=== PATIENT | female | born 1945 | race Caucasian/White ===

== ENCOUNTER 2018-09-27 13:41 | Emergency (ER) | payer MEDICARE, BC, MEDICAID, SELFPAY ==
[2018-09-27 13:43] VITALS: BP 186/78; PULSE 65; PULSE 66; RESP 17; TEMP 36.7; O2SAT 93; O2SAT 96; BMI 73.8
--- NOTE | 2018-09-27 14:23 | RAD_ITS ---
STUDY: X-RAY - LEFT FOOT CLINICAL: Female, 72 years old. Pain following a fall. TECHNIQUE: AP and lateral view(s) of the foot. COMPARISON: None. FINDINGS: There is a plantar calcaneal spur. Normal visualized subtalar, talonavicular, calcaneocuboid, tarsal and tarsometatarsal articulations. There is demineralization of the metatarsi. Normal metatarsophalangeal joint of the great toe. Normal tibial and fibular sesamoid bones. Normal interphalangeal joint of the great toe. Normal phalanges of the great toe. Normal second through fifth metatarsophalangeal joints. Normal interphalangeal joints and phalanges of the lesser toes. Diffuse soft tissue swelling. RAD/Foot 2 Views IMPRESSION: Diffuse soft tissue swelling. Electronically Signed: Sushil Diaz, at 15:31 EDT , Service support ,
--- NOTE | 2018-09-27 14:23 | RAD_ITS ---
STUDY: X-RAY - LEFT ANKLE REASON FOR EXAM: Female, 72 years old. Pain following a fall. TECHNIQUE: 3 view(s) of the ankle. COMPARISON: None. FINDINGS: Osteopenia. Normal medial and lateral malleoli. Normal tibiotalar articulation and ankle mortise. Plantar spur. The visualized subtalar, talonavicular, calcaneocuboid and tarsal articulations are normal. Diffuse soft tissue swelling. RAD/Ankle min 3 Views IMPRESSION: Plantar spur. Demineralization of the tibia and fibula. Diffuse soft tissue swelling. Electronically Signed: Sushil Diaz, at 15:28 EDT , Service support ,
--- NOTE | 2018-09-27 14:24 | RAD_ITS ---
STUDY: X-RAY - RIGHT FOOT CLINICAL: Female, 72 years old. Pain following a fall. TECHNIQUE: 3 view(s) of the foot. COMPARISON: Comparison is made with prior study dated May 12, 2016. FINDINGS: There is a plantar calcaneal spur. The patient is status post open reduction and internal fixation of the medial malleolar fracture and distal fibular fracture. Normal visualized subtalar, talonavicular, calcaneocuboid, tarsal and tarsometatarsal articulations. There is demineralization of the metatarsi. Normal metatarsophalangeal joint of the great toe. Normal tibial and fibular sesamoid bones. Normal interphalangeal joint of the great toe. Normal phalanges of the great toe. Normal second through fifth metatarsophalangeal joints. Normal interphalangeal joints and phalanges of the lesser toes. Diffuse soft tissue swelling. RAD/Foot min 3 Views IMPRESSION: Diffuse soft tissue swelling. No acute abnormality is seen. Small plantar spur. Electronically Signed: Sushil Diaz, at 15:30 EDT , Service support ,
--- NOTE | 2018-09-27 15:43 | ED.VISSUMM ---
- ER Visit Summary Date of Service: 09/27/18 Chief Complaint: Fall while being transferred History of Present Illness: The patient is a 72 F who is bedridden and does not ambulate on her own. Patient is diabetic and has a history of hypertension. 2 caregivers were transferring her from the bed to the wheelchair. She started to fall and they lowered her to the ground. She said she did not fall hard. But as she was going down her toes Aliya curled up underneath her feet she is complaining pain in both feet. She did not hit her head. She denies any other complaints. Physical Examination: Vital signs are stable and afebrile. Older female lying in bed. HEENT exam atraumatic. Neck nontender. Lungs clear to auscultation bilaterally. Heart regular rhythm no murmur. Chest wall nontender. Abdomen morbidly obese but soft. No peritoneal signs. Extremities moves all 4. Both feet are swollen a lot appears to be chronic. She has tenderness to her toes on both sides but no gross bony deformity. She has a brace on her right ankle from prior right ankle surgery. Her left ankle is mildly tender but not swollen or deformed. Neurologically she is awake and alert. Test Results: Foot x-ray left foot shows soft tissue swelling but no acute fracture. Osteoporosis. 3 views. Foot x-ray right foot similar soft tissue swelling and osteoporosis but no acute fracture noted. Left ankle x-ray shows chronic changes and osteoporosis but no fracture. All the films were read both by myself and the radiologist. Emergency Department Course and Treatment: Repeat exam unchanged. Discussed x-ray results with patient and family. She was given one [place] here for pain. Treatment Plan: Ice to her feet. Tylenol for pain. Follow-up if not improving. I did warn them that she could have pain and nondisplaced fractures are not diagnosed on the first films. Disposition: Discharge Impression: Bilateral feet contusions secondary to fall Chronically bedridden History of type 2 diabetes This note was generated with [employer] dictation software. It may contain incorrect words, spelling, and punctuation that were not noted in review of the chart prior to signing ED Disposition - Plan for ED Patient: Disposition: Home or Assisted Living Instructions: CONTUSION, Foot Referrals: Socrates Spangler MD [Primary Care Provider] - 1 Week if not improving Additional Instructions: No broken bones were seen on her x-rays. Cool compresses or ice and elevate to her feet. Follow-up if not improving.
--- NOTE | 2018-09-27 15:48 | ED.DEP ---
ED Disposition - Plan for ED Patient: Disposition: Home or Assisted Living Instructions: CONTUSION, Foot Prescriptions: Hydrocodone/Acetaminophen [[place] 5-325 Tablet] 1 ea PO Q6H PRN PRN 4 Days #10 tab PRN Reason: Pain Prescription Printed Referrals: Socrates Spangler MD [Primary Care Provider] - 1 Week if not improving Additional Instructions: No broken bones were seen on her x-rays. Cool compresses or ice and elevate to her feet. Follow-up if not improving.
--- NOTE | 2018-09-27 15:56 | NURSING ---
CALLED [facility] FOR TRANSPORT. ETA IS 2000
[2018-09-27 16:09] VITALS: RESP 14
[2018-09-27] MEDS: HYDROcodone Bitartrate/Apap 5/325 Tablet PO (16:13)
[2018-09-27 20:42] VITALS: BP 164/60; PULSE 63; RESP 17; O2SAT 99
--- NOTE | 2018-09-27 21:09 | ED.RN ---
REPORT GIVEN TO [facility] FOR PT TRANSPORT.
== END 2018-09-27 21:15 | disposition home or self-care (01) ==
PROVIDERS: Emergency Provider Emergency Medicine; Family Provider Internal Medicine; PCP Internal Medicine
DX: S90.32XA Contusion of left foot, initial encounter (principal); S90.31XA Contusion of right foot, initial encounter; W19.XXXA Unspecified fall, initial encounter; E11.9 Type 2 diabetes mellitus without complications; I10 Essential (primary) hypertension; Z74.01 Bed confinement status; Z79.4 Long term (current) use of insulin
CPT/HCPCS: 73610; 73620; 73630; 99284

== ENCOUNTER 2024-06-13 19:38 | Inpatient (IN) | payer MEDICARE, BC, MEDICAID, SELFPAY ==
[2024-06-13] VITALS (11 sets, daily range): BP systolic 121–156; BP diastolic 65–80; PULSE 54–96; RESP 12–38; TEMP 36.3–37; O2SAT 70–97; BMI 77.5
--- NOTE | 2024-06-13 19:42 | EKG12_ITS ---
Test Reason : SOB Blood Pressure : */* mmHG Vent. Rate : 63 BPM Atrial Rate : 63 BPM P-R Int : 214 ms QRS Dur : 118 ms QT Int : 428 ms P-R-T Axes : 88 -62 -58 degrees QTcB Int : 437 ms Sinus rhythm with 1st degree A-V block Left axis deviation Pulmonary disease pattern Non-specific intra-ventricular conduction delay Nonspecific ST and T wave abnormality Abnormal ECG Confirmed by LAUREN ROSS, MARISOL ([id number]), news editor BETHEL PALMA ([id number]) on 06/15/2024 9:23:38 AM Referred By: FRANK Confirmed By: MARISOL AGUILAR MD
--- NOTE | 2024-06-13 19:44 | ED.VIS.DYS ---
HPI History of Present Illness Chief Complaint: Shortness of Breath Detail of Chief Complaint: Shortness of breath Informant: patient and EMS Narrative Narrative: Patient presents to the emergency department complaint shortness of breath started today. Normally she wears CPAP at night for obstructive sleep apnea. On EMS arrival her O2 sat was in the 70s. Patient denies chest pain. She denies recent illness. She has had a slight cough. She has not had any fever. Denies recent travel or surgery. [facility] Medical History (Updated 06/13/24 @ 21:[address] Gabriel Rucker, DO) CKD (chronic kidney disease), stage III Hypothyroidism Allergic rhinitis GERD (gastroesophageal reflux disease) Obstructive sleep apnea Hyperlipidemia Hypertension Type 2 diabetes mellitus Morbid obesity Home Medications ?Medication ?Instructions ?Recorded ?Last Taken ?Type Omeprazole [Prilosec] 40 mg PO DAILY 05/12/16 05/12/16 08:00 History amlodipine 5 mg tablet 5 mg PO DAILY 05/12/16 05/12/16 08:00 History atorvastatin 20 mg tablet 20 mg PO QHS 05/12/16 05/11/16 22:00 History fexofenadine 180 mg tablet 180 mg PO DAILY 05/12/16 05/12/16 08:00 History hydrocortisone 2.5 % topical cream 1 applicatio topical BID 05/12/16 Unknown History insulin glargine 100 unit/mL (3 50 units subcut QHS 05/12/16 05/11/16 22:00 History mL) subcutaneous pen (Lantus Solostar U-100 Insulin) levothyroxine 100 mcg tablet 100 mcg PO DAILY 05/12/16 05/12/16 06:00 History losartan 100 1 tab PO DAILY 05/12/16 05/12/16 08:00 History mg-hydrochlorothiazide 25 mg tablet (Hyzaar) metformin 500 mg 24 hr 1,000 mg PO BIDAC 05/12/16 05/12/16 08:00 History tablet,extended release (gastric retention) metoprolol tartrate 50 mg tablet 50 mg PO BID 05/12/16 05/12/16 08:00 History montelukast 10 mg tablet 10 mg PO QHS 05/12/16 05/11/16 22:00 History (Singulair) potassium chloride 10 mEq 10 meq PO BID 05/12/16 05/12/16 08:00 History tablet,extended release(part/cryst) docusate sodium 100 mg capsule 200 mg (2 x 100 mg) PO BID 05/14/16 Unknown Rx (DOK) enoxaparin 40 mg/0.4 mL 40 mg (0.4 mL) subcut BID ##28 05/14/16 Unknown Rx subcutaneous syringe insulin aspart U-100 100 unit/mL 0 units (0 mL) subcut ACHS 05/14/16 Unknown Rx (3 mL) subcutaneous pen (Novolog FlexPen U-100 Insulin aspart) magnesium oxide 400 mg (241.3 mg 400 mg PO BID ##60 05/14/16 Unknown Rx magnesium) tablet nystatin 100,000 unit/gram topical 1 applic topical BID 05/14/16 Unknown Rx powder (Nyamyc) oxycodone 5 mg tablet 5 mg PO Q4H PRN PRN Moderate Pain 05/14/16 Unknown Rx (pain scale 4-5) ##20 Allergy/AdvReac Type Severity Reaction Status Date / Time lisinopril Allergy Unknown Verified 05/12/16 17:40 pollen extracts Allergy Itching Verified 05/12/16 17:40 Surgical History (Updated 06/13/24 @ 20:[address] Estela Staton MD) S/P cholecystectomy Social History (Updated 06/13/24 @ 20:[address] Estela Staton MD) household members: spouse Smoking Status: Never smoker alcohol intake: never substance use type: does not use ROS ROS ED Review of Systems ROS Unobtainable: other Constitutional Constitutional ED: Reports lethargy; Denies chills, fever(s), sweats or weight loss Eyes Eyes: Denies blurry vision, change in vision or diplopia ENT ENT ED: Denies rhinorrhea or sore throat Cardiovascular Cardiovascular: Denies chest pain, orthopnea or racing heartbeat Respiratory/Chest Respiratory/Chest: Reports cough, dyspnea and dyspnea on exertion; Denies orthopnea or sputum Gastrointestinal Gastrointestinal: Denies abdominal pain, diarrhea, nausea or vomiting Genitourinary Genitourinary ED: Denies dysuria, hematuria or urinary frequency Musculoskeletal Musculoskeletal: Denies arthralgias, back pain, myalgias or neck pain Integumentary Denies abscess, Abrasions or rash Neurologic Neurologic: Denies headache(s) or weakness Psychiatric Psychiatric: Denies anxiety, depression or suicidal thoughts Endocrine Endocrinology: Denies polydipsia, polyphagia or polyuria Hematologic/Lymphatic Hematologic/Lymphatic: Denies easy bleeding, easy bruising or lymphadenopathy Allergic/Immunologic Allergic/Immunologic ED: Denies mouth swelling, tongue swelling or urticaria EXAM Physical Exam Const Vital Signs: 06/13/24 19:39 06/13/24 19:39 06/13/24 19:40 Temperature 97.4 F L Temperature Source Axillary Pulse Rate 85 96 Respiratory Rate 22 H 38 H Respiratory Effort Respiratory Depth Respiratory Pattern Tachypnea Blood Pressure 156/66 H Blood Pressure Mean 96 Pulse Ox 70 95 92 Oxygen Delivery Method Room Air Bi-pap Fraction of Inspired Oxygen (FIO2) 50 50 06/13/24 19:44 06/13/24 19:44 06/13/24 19:48 Temperature 97.4 F L Temperature Source Axillary Pulse Rate 80 Respiratory Rate 23 H Respiratory Effort Short of Breath Labored Accessory Muscle Use Respiratory Depth Shallow Respiratory Pattern Tachypnea Blood Pressure 156/66 H Blood Pressure Mean 96 Pulse Ox 97 96 Oxygen Delivery Method Bi-pap Bi-pap Airvo Fraction of Inspired Oxygen (FIO2) 50 50 50 06/13/24 19:53 06/13/24 20:35 06/13/24 21:00 Temperature 98.5 F Temperature Source Oral Pulse Rate 82 54 L 62 Respiratory Rate 26 H 18 18 Respiratory Effort Respiratory Depth Respiratory Pattern Tachypnea Normal Blood Pressure 121/70 H Blood Pressure Mean 87 Pulse Ox 96 Oxygen Delivery Method Bi-pap Fraction of Inspired Oxygen (FIO2) 40 06/13/24 21:15 Temperature Temperature Source Pulse Rate 646 H Respiratory Rate 24 H Respiratory Effort Respiratory Depth Respiratory Pattern Tachypnea Blood Pressure Blood Pressure Mean Pulse Ox 96 Oxygen Delivery Method Fraction of Inspired Oxygen (FIO2) 40 Positive well nourished and well developed General Appearance ED: well developed and NAD HEENT Reports TM's clear and moist mucous membranes normocephalic and atraumatic; Negative for trauma or tenderness Tympanic Membrane ED: Yes TM's clear Eyes PERRL and EOMs intact bilaterally General Eye ED: Negative for pale conjunctiva or scleral icterus Neck no lymphadenopathy, supple and no JVD General: Negative for tenderness Chest Wall inspection of chest normal and palpation of chest normal Chest: Negative for tenderness Resp No normal respiratory effort and No clear to auscultation bilaterally Resp Narrative: Patient with tachypnea. Expiratory wheezes throughout somewhat diminished bilaterally. Effort and Inspection: Negative for respiratory distress or pain with movement Auscultation: Negative for rhonchi, wheezes or diminished lung sounds Cardio regular rate, regular rhythm, S1 normal heart sound, S2 normal heart sound and no murmurs Peripheral Pulses: pulses 2+ throughout GI normal to inspection, nondistended, normoactive bowel sounds, soft to palpation, non-tender, non-distended and no masses Back/Spine no CVA tenderness and no thoracic nor lumbar tenderness Extremity normal to inspection Extremity Narrative: Trace edema both lower extremities General Extremety ED: Yes edema General Extremity: edema Neuro oriented x3, CN's II-XII intact bilaterally, no sensory deficits noted and gait normal Sensorium / Orientation: awake, alert, oriented to person, oriented to place and oriented to time Motor Exam: strength 5/5 throughout and strength abnormal Psych mental status grossly normal Skin no rashes or lesions noted and no wounds MDM MDM MDM Narrative Medical decision making narrative: Patient presents the emergency department from home with respiratory distress. Immediately she was placed on BiPAP. She tolerated this very well and respiratory status improved. IV line established. She had a CBC with differential that showed a white count of 15.4 with hemoglobin 16.1 and platelet count of 231. Chemistries unremarkable. D-dimer elevated 1.63. BUN 20 and creatinine 1.14. Troponin slightly elevated at 34 and [employer] was elevated 11,672. We attempted to do a CT scan of the chest to rule out PE however given patient's large body habitus and size she would not fit in the CT scanner. Will obtain venous Dopplers of both lower extremities. 1 view chest x-ray was obtained that showed on my interpretation infiltrate in the right lower lobe and some vascular congestion. She does have history of CHF. Patient was started on Levaquin IV. Patient also ordered Lasix IV. Case discussed with hospitalist will evaluate patient for admission Lab Data Attestation: I reviewed the patient's lab results. Labs: Laboratory Results - last 24 hr 06/13/24 19:40 WBC 15.4 H RBC 5.84 H Hgb 16.1 H Hct 53.3 H MCV 91.3 MCH 27.6 MCHC 30.2 L RDW Std Deviation 50.9 H RDW Coeff of Ryan 15.3 H Plt Count 231 MPV 9.4 Immature Gran % (Auto) 0.300 Neut % (Auto) 40.5 L Lymph % (Auto) 53.9 H [place] % (Auto) 4.3 Eos % (Auto) 0.7 Baso % (Auto) 0.3 Absolute Neuts (auto) 6.2 Absolute Lymphs (auto) 8.27 H Nucleated RBC % 0 Atypical Lymphocytes 2+ Reactive Lymphocytes 1+ D-Dimer Quant (PE/DVT) 1.63 H* Sodium 141 Potassium 4.2 Chloride 104 Carbon Dioxide 26.5 Anion Gap 10 BUN 28 H Creatinine 1.14 Estim Creat Clear Calc 61.75 Est GFR (MDRD) Non-Af 49 L BUN/Creatinine Ratio 24.6 H Glucose 154 H Lactic Acid 1.4 Calcium 9.1 Troponin T [place] 34 [place] [id number] H Radiography Diagnostic Testin view chest x-ray obtained interpreted by myself as right lower lobe infiltrate and cardiomegaly with vascular congestion. No pneumothorax. EKG Initial EKG: Attestation: I personally reviewed and interpreted this EKG as follows: Comments: Sinus rhythm with first-degree AV block with nonspecific ST changes Critical Care Time Critical Care Time: Yes Critical care time (excluding procedures): 30-74 minutes, 75-104 minutes, Including time spent:, Discussing w/Patient &/or Family/Stock Mixer, Discussing w/Consultants, Arranging Admission or Transfer, Performing Direct Patient Care at Bedside and - (30 minutes) Discharge Plan Triage Chief Complaint: Shortness of Breath ED Provider: Gabriel Rucker Dx/Rx/DC Orders Clinical Impression: Respiratory failure, Hypoxia, Pneumonia, CHF (congestive heart failure) Prescriptions: No Action atorvastatin 20 MG tablet 20 mg PO QHS Patient Comments: cholesterol fexofenadine 180 MG tablet 180 mg PO DAILY Patient Comments: allergies amlodipine 5 MG tablet 5 mg PO DAILY Patient Comments: blood pressure levothyroxine 100 MCG tablet 100 mcg PO DAILY Patient Comments: thyroid losartan-hydrochlorothiazide [Hyzaar] 1 TAB tablet 1 tab PO DAILY Patient Comments: blood pressure metoprolol tartrate 50 MG tablet 50 mg PO BID Patient Comments: blood pressure montelukast [Singulair] 10 MG tablet 10 mg PO QHS Patient Comments: breathing potassium chloride 10 MEQ tablet 10 meq PO BID Patient Comments: supplement metformin 500 MG tablet,ER rozina.retention 24 hr 1,000 mg PO BIDAC insulin glargine [Lantus Solostar U-100 Insulin] 100 UNITS/ML insulin pen 50 units subcut QHS Patient Comments: diabetes Omeprazole [Prilosec] 40 MG capsule 40 mg PO DAILY Patient Comments: stomach hydrocortisone 1 APPLIC cream 1 applicatio topical BID docusate sodium [DOK] 100 MG capsule 200 mg PO BID 0RF nystatin [Nyamyc] 1 APPLIC bottle 1 applic topical BID 0RF oxycodone 5 MG tablet 5 mg PO Q4H PRN PRN (Reason: Moderate Pain (pain scale 4-5)) Qty: 20 0RF enoxaparin 40 MG/0.4 ML syringe 40 mg subcut BID Qty: 28 0RF insulin aspart U-100 [Novolog FlexPen U-100 Insulin] 100 UNITS/ML insulin pen 0 units subcut ACHS 0RF magnesium oxide 400 MG tablet 400 mg PO BID Qty: 60 0RF Primary Care Provider: Socrates Spangler Referrals: Socrates Spangler MD [Primary Care Provider] - Print Language: Telugu Disposition Disposition: Acute Care Hospital [facility]
[2024-06-13] MEDS: MethylPREDNISolone 125 MG/2 ML Vial IV (19:53)
[2024-06-13] MEDS: Albuterol 2.5 MG/3 ML VIAL.NEB. INHALATION ×3 (19:53→20:35)
[2024-06-13 19:57] LABS: Absolute Lymphocyte Count 8.27 X10^3/uL (0.83-4.51); Absolute Neutrophil Count 6.2 X10^3/uL (2.0-7.7); Basophil# 0.04 X10^3/uL; Basophil% 0.3 % (0-1); Eosinophil# 0.11 X10^3/uL; Eosinophils% 0.7 % (0-5); Hematocrit 53.3 % (37-47); Hemoglobin 16.1 g/dL (12.0-15.0); Lymphocyte # 8.27 X10^3/ul (0.83-4.51); Lymphocyte % 53.9 % (19-41); Mean Corp Hgb Conc 30.2 g/dL (32-36); Mean Corpuscular Hgb 27.6 pg (27.0-32.0); Mean Corpuscular Volume 91.3 fL (81-99); Mean Platelet Vol. 9.4 fl (6.2-12.0); Monocyte# 0.66 X10^3/uL; Monocyte% 4.3 % (0-10); NRBC Flagged by Analyzer 0 % (0-5); Neutrophil # 6.23 X10^3/uL (2.7-7.7); Neutrophil % 40.5 % (47-70); POSITIVE DIFFERENTIAL YES; POSITIVE MORPHOLOGY YES; Platelet Count 231 K/mm3 (150-450); RBC Distribution Width CV 15.3 % (11.6-14.6); RBC Distribution Width SD 50.9 fl (35.1-43.9); Red Blood Count 5.84 M/mm3 (4.2-5.4); White Blood Count 15.4 K/mm3 (4.4-11.0)
[2024-06-13 20:08] LABS: D-Dimer Quantitative (DVT/PE) 1.63 FEU/ug/m (0.27-0.49)
[2024-06-13 20:19] LABS: Pro- Brain NATRIURETIC PEPTIDE 11672 pg/mL (<=1800); Troponin T High Sensitivity 34 ng/L (<=14)
[2024-06-13 20:20] LABS: Lactic Acid 1.4 mmol/L (0.0-2.0)
[2024-06-13 20:23] LABS: Differential Indicated SCAN CRITERIA MET
[2024-06-13 20:24] LABS: Atypical Lymphocyte 2+ %; Reactive Lymphocyte 1+
[2024-06-13 20:39] LABS: Anion Gap 10 (5-15); BUN 28 mg/dL (4-19); BUN/Creat Ratio 24.6 RATIO (10-20); Calcium,Total 9.1 mg/dL (7.6-11.0); Carbon Dioxide 26.5 mmol/L (21.0-32.0); Chloride 104 mmol/L (98-108); Creatinine, Serum 1.14 mg/dL (0.70-1.20); EST Glomerular Filtration Rate 49 (>60); Estimated Creatinine Clearance 61.75 ml/min (50-250); Glucose 154 mg/dL (70-99); Potassium 4.2 mmol/L (3.3-5.1); Sodium Level 141 mmol/L (133-145)
--- NOTE | 2024-06-13 21:05 | RAD_ITS ---
PROCEDURE: CHEST 1 VIEW (PORTABLE) 06/13/2024 REASON FOR EXAM: DYSPNEA TECHNIQUE: Frontal view of the chest. COMPARISON: None FINDINGS: Hardware: None Heart: There is severe cardiomegaly. Lungs: Right perihilar airspace opacities. No pneumothorax. Small left pleural effusion. Bones: The bones are unremarkable. Other: RAD/Chest 1 View (Portable) IMPRESSION: Marked cardiomegaly with right perihilar airspace opacities, may represent eli estion/edema versus infection. Small left pleural effusion. Reading Location: [facility]
--- NOTE | 2024-06-13 21:27 | PCM.HP.STD ---
HPI - General General Date of Admission: 06/13/24 Date of Service: 06/13/24 Chief Complaint: Dyspnea. HPI Narrative The patient is an 78 y/o F w/ PMHx: CKD stage III unclear subtype per GFR trending, Morbid obesity with significantly chronically limited mobility normally using predominantly wheelchair/Hypoventilation Syndrome, HTN, HLD, JAYA on CPAP q HS w/ oxygen at night, Diabetes mellitus type II, Hypothyroidism, Allergic rhinitis, GERD who presents to the [facility] ED on 06/13/24 with history of dyspnea, onset on day of presentation prompting EMS call noted to be 70% upon their arrival with recent slight cough without marked production, mild congestion and rhinorrhea but no marked other URI type symptoms or productive sputum nor any recent fever/chills. She denies any recent surgery or prolonged travel. Workup in the ED included T97.4 Axillary, heart rate 85, BP 156/66, respiratory rate 22, initially 70% room air transition to BiPAP noted to be 95% on 50% FiO2, D-dimer 1.63, CBC with WBC 15.4, hemoglobin 16.1, MCV 91.3, platelet 231 with lymphocytosis, BMP with BUN/creatinine 28/1.14, GFR 49, glucose 154 otherwise unremarkable, initial troponin 34, BNP 11,672, lactic acid 1.4, rapid SARS COVID/influenza/RSV negative, blood culture x 2 pending per ED, CXR with possible RLL infilrate, EKG with SR with 1 AVB with no acute evidence of ischemia. ED attempt to obtain CTPA however patient was unable to fit in the CT scanner. ED physician is obtaining BL LE duplex US and ABG per discussion which is pending upon evaluation request of patient. In the ED patient ministered Solu-Medrol 125 mg IV x 1, lasix 40 mg IV x 1, levaquin 750 mg IV x 1. [facility] Medical History CKD (chronic kidney disease), stage III Hypothyroidism Allergic rhinitis GERD (gastroesophageal reflux disease) Obstructive sleep apnea Hyperlipidemia Hypertension Type 2 diabetes mellitus Morbid obesity Home Medications ?Medication ?Instructions ?Recorded ?Last Taken ?Type Omeprazole [Prilosec] 40 mg PO DAILY 05/12/16 05/12/16 08:00 History amlodipine 5 mg tablet 5 mg PO DAILY 05/12/16 05/12/16 08:00 History atorvastatin 20 mg tablet 20 mg PO QHS 05/12/16 05/11/16 22:00 History fexofenadine 180 mg tablet 180 mg PO DAILY 05/12/16 05/12/16 08:00 History hydrocortisone 2.5 % topical cream 1 applicatio topical BID 05/12/16 Unknown History insulin glargine 100 unit/mL (3 50 units subcut QHS 05/12/16 05/11/16 22:00 History mL) subcutaneous pen (Lantus Solostar U-100 Insulin) levothyroxine 100 mcg tablet 100 mcg PO DAILY 05/12/16 05/12/16 06:00 History losartan 100 1 tab PO DAILY 05/12/16 05/12/16 08:00 History mg-hydrochlorothiazide 25 mg tablet (Hyzaar) metformin 500 mg 24 hr 1,000 mg PO BIDAC 05/12/16 05/12/16 08:00 History tablet,extended release (gastric retention) metoprolol tartrate 50 mg tablet 50 mg PO BID 05/12/16 05/12/16 08:00 History montelukast 10 mg tablet 10 mg PO QHS 05/12/16 05/11/16 22:00 History (Singulair) potassium chloride 10 mEq 10 meq PO BID 05/12/16 05/12/16 08:00 History tablet,extended release(part/cryst) docusate sodium 100 mg capsule 200 mg (2 x 100 mg) PO BID 05/14/16 Unknown Rx (DOK) enoxaparin 40 mg/0.4 mL 40 mg (0.4 mL) subcut BID ##28 05/14/16 Unknown Rx subcutaneous syringe insulin aspart U-100 100 unit/mL 0 units (0 mL) subcut ACHS 05/14/16 Unknown Rx (3 mL) subcutaneous pen (Novolog FlexPen U-100 Insulin aspart) magnesium oxide 400 mg (241.3 mg 400 mg PO BID ##60 05/14/16 Unknown Rx magnesium) tablet nystatin 100,000 unit/gram topical 1 applic topical BID 05/14/16 Unknown Rx powder (Nyamyc) oxycodone 5 mg tablet 5 mg PO Q4H PRN PRN Moderate Pain 05/14/16 Unknown Rx (pain scale 4-5) ##20 Allergy/AdvReac Type Severity Reaction Status Date / Time lisinopril Allergy Unknown Verified 05/12/16 17:40 pollen extracts Allergy Itching Verified 05/12/16 17:40 Family History (Updated 06/13/24 @ 22:[address] Estela Staton MD) Mother Diabetes Heart disease Hypertension Father Diabetes Cancer Heart disease Alzheimer dementia Surgical History (Updated 06/13/24 @ 22:[address] Estela Staton MD) History of ankle surgery S/P cholecystectomy Social History household members: spouse Smoking Status: Never smoker alcohol intake: never substance use type: does not use ROS ROS Narrative Admission Review of Systems: CONSTITUTIONAL: No weight loss, fever, chills, + weakness or fatigue. HEENT: +Congestion, rhinorrhea. Eyes: No visual loss, blurred vision, double vision or yellow sclerae. Ears, Nose, Throat: No hearing loss, sneezing, sore throat. SKIN: No rash or itching, lesions, wounds except + chronic issues with intertrigo. CARDIOVASCULAR: No chest pain, chest pressure or chest discomfort, palpitations, edema, orthopnea, syncopal events. RESPIRATORY: + Mild cough, dyspnea, wheezing upon evaluation. No markedly productive sputum, hemoptysis. GASTROINTESTINAL: No anorexia, nausea, vomiting or diarrhea, abdominal pain, melena, BRBPR. GENITOURINARY: No dysuria, frequency, urgency or retention. NEUROLOGICAL: +Chronic debility with primarily wheelchair usage. No headache, dizziness, syncope, paralysis, ataxia, numbness or tingling in the extremities, focal weakness, change in bowel or bladder control, seizure. MUSCULOSKELETAL: + muscle, back pain, joint pain or stiffness. HEMATOLOGIC: No anemia, bleeding or bruising. LYMPHATICS: No enlarged nodes. No history of splenectomy. PSYCHIATRIC: No history of depression or anxiety. ENDOCRINOLOGIC: No reports of sweating, cold or heat intolerance. No polyuria or polydipsia. ALLERGIES: + History of allergic rhinitis. Vital Signs Vital Signs Vital Signs: 06/13/24 19:39 06/13/24 19:39 06/13/24 19:40 Temperature 97.4 F L Temperature Source Axillary Pulse Rate 85 96 Respiratory Rate 22 H 38 H Respiratory Effort Respiratory Depth Respiratory Pattern Tachypnea Blood Pressure 156/66 H Blood Pressure Mean 96 Pulse Ox 70 95 92 Oxygen Delivery Method Room Air Bi-pap Fraction of Inspired Oxygen (FIO2) 50 50 06/13/24 19:44 06/13/24 19:44 06/13/24 19:48 Temperature 97.4 F L Temperature Source Axillary Pulse Rate 80 Respiratory Rate 23 H Respiratory Effort Short of Breath Labored Accessory Muscle Use Respiratory Depth Shallow Respiratory Pattern Tachypnea Blood Pressure 156/66 H Blood Pressure Mean 96 Pulse Ox 97 96 Oxygen Delivery Method Bi-pap Bi-pap Airvo Fraction of Inspired Oxygen (FIO2) 50 50 50 06/13/24 19:53 06/13/24 20:35 06/13/24 21:00 Temperature 98.5 F Temperature Source Oral Pulse Rate 82 54 L 62 Respiratory Rate 26 H 18 18 Respiratory Effort Respiratory Depth Respiratory Pattern Tachypnea Normal Blood Pressure 121/70 H Blood Pressure Mean 87 Pulse Ox 96 Oxygen Delivery Method Bi-pap Fraction of Inspired Oxygen (FIO2) 40 06/13/24 21:15 Temperature Temperature Source Pulse Rate 646 H Respiratory Rate 24 H Respiratory Effort Respiratory Depth Respiratory Pattern Tachypnea Blood Pressure Blood Pressure Mean Pulse Ox 96 Oxygen Delivery Method Fraction of Inspired Oxygen (FIO2) 40 Weight Weight: 397 lb 4.368 oz Body Mass Index (BMI) 77.5 Physical Exam Narrative Physical Examination: General: Awake, alert, oriented x 3 and cooperative, laying in the ED bed, fatigued, BiPAP remains in place, no evidence of any distress at this time, appears improved Skin: Normal color, normal turgor, no icterus, no cyanosis except significant intertrigo in all skin folds, occasional stage ecchymoses, abrasion. HEENT: AT/NC, EOMI, PERRLA, mildly dry MM, BiPAP in place, given thickened neck and habitus difficult to discern carotid bruits as well as JVD. Lungs: Significant diminished, greater bases, persistent end expiratory wheeze, respiratory distress is lessened, maintained currently on BiPAP, no appreciated marked rhonchi or rales. Heart: Mildly bradycardic with regular rhythm; no gallop, rub audible. Abdomen: Soft, morbidly obese, NTTP, distant BS, difficult to discern distention and HSM given habitus. Extremities: No cyanosis, clubbing, or edema. Neurological: Patient awake, alert, oriented as noted, cognitive function intact; pupils equally reactive to light and accommodation, cranial nerves grossly normal, moving all 4 extremities, no focal deficits, strength severely globally decreased. Psychiatric: Affect appears flat, fatigued, no acute evidence of depressive or anxiety feelings. Results Lab / Micro Data 06/13/24 19:40 06/13/24 19:40 Labs: Laboratory Results - last 24 hr 06/13/24 19:40: WBC 15.4 H, RBC 5.84 H, Hgb 16.1 H, Hct 53.3 H, MCV 91.3, MCH 27.6, MCHC 30.2 L, RDW Std Deviation 50.9 H, RDW Coeff of Ryan 15.3 H, Plt Count 231, MPV 9.4, Immature Gran % (Auto) 0.300, Neut % (Auto) 40.5 L, Lymph % (Auto) 53.9 H, [place] % (Auto) 4.3, Eos % (Auto) 0.7, Baso % (Auto) 0.3, Absolute Neuts (auto) 6.2, Absolute Lymphs (auto) 8.27 H, Nucleated RBC % 0, Atypical Lymphocytes 2+, Reactive Lymphocytes 1+, D-Dimer Quant (PE/DVT) 1.63 H*, Sodium 141, Potassium 4.2, Chloride 104, Carbon Dioxide 26.5, Anion Gap 10, BUN 28 H, Creatinine 1.14, Estim Creat Clear Calc 61.75, Est GFR (MDRD) Non-Af 49 L, BUN/Creatinine Ratio 24.6 H, Glucose 154 H, Lactic Acid 1.4, Calcium 9.1, Troponin T High Sens 34 H, [place] [address] H Micro: Microbiology 06/13/24 19:55 Mucosa - Nose SARS-CoV-2, Influenza & RSV (PCR) - Final Assessment & Plan Assessment/Plan (1) Acute hypoxic respiratory failure: PLAN: Plan The patient is an 78 y/o F w/ PMHx: CKD stage III unclear subtype per GFR trending, Morbid obesity with significantly chronically limited mobility normally using predominantly wheelchair/Hypoventilation Syndrome, HTN, HLD, JAYA on CPAP q HS w/ oxygen at night, Diabetes mellitus type II, Hypothyroidism, Allergic rhinitis, GERD who presents to the [facility] ED on 06/13/24 with history of dyspnea, onset on day of presentation prompting EMS call noted to be 70% upon their arrival with recent slight cough without marked production, mild congestion and rhinorrhea but no marked other URI type symptoms or productive sputum nor any recent fever/chills. #1. Acute Hypoxic Respiratory Failure secondary to Possible RLL Infilrtrate/Community Acquired PNA with Acute Bronchospasms in addition to Possible Acute Decompensated HF, Unclear type with indeterminate cardiac enzyme: Patient administered IV lasix in addition to IV solumedrol and IV levaquin in the ED, will admit to PCU, maintain on BIPAP although already improving in the ED, maintain on cardiac telemetry, continue to obtain cardiac enzyme series, obtain serial EKGs, continue IV lasix diuresis, ATC duoneb therapies, PRN albuterol, maintain on IV Rocephin and Azithromycin, maintain on IV solumedrol given notable wheezing/bronchospasms suspected, HOB, IS parameters w/ pending sputum cultures, full respiratory viral panel, procalcitonin and urine antigens. If infectious workup unremarkable may opt to de-escalate antibiotic therapy. Certainly if workup seems more infectious than overload may de-escalate off Lasix therapy. #2. Chronic Kidney Disease Stage III, unclear subtype per GFR trending: Admission BUN/Cr 28/1.14, GFR 49, baseline renal function unfortunately remote with last noted 11/22/2016 creatinine 0.98, repeat BMP in AM for trending but also to elucidate current chronic stable level. #3. Hypertension: Continue home regimen including metoprolol, amlodipine, losartan, hydrochlorothiazide, pulse dose with IV lasix as noted above, PRN hydralazine. #4. Hyperlipidemia: We will continue patient statin therapy. FLP in AM. #5. Hypothyroidism: We will continue patient home levothyroxine regimen. TSH/FT4 in AM. #6. Diabetes mellitus type II: Hold oral home regimen, continue home insulin regimen, ADA diet, accu checks w/ ISS. #7. Morbid Obesity/significantly chronically limited mobility normally using predominantly wheelchair: Weight loss and lifestyle changes encouraged, nutrition consulted. #8. Allergic rhinitis: We will continue patient home fexofenadine regimen. #9. GERD: We will continue patient on PPI. #10. JAYA, hypoventilation syndrome: Complicates presentation, normally using CPAP nightly, given current presentation will continue with BiPAP. Transition once appropriate. #11. DVT prophylaxis: Chemoprophylactic dosing of Lovenox pending duplex ultrasound. Given inability to fit in the scanner at this point pending bilateral lower extremity duplex ultrasounds and if there is no obvious clot in her legs then lower suspicion for anything in her lungs but if any concerning findings in the legs then certainly would transition to heparin drip at that point. #12. CODE status: Patient NICOLE is her daughter and living will is currently in place. Discussed CODE status at length including difference between FULL code, DNR-CCA and DNR-CC status. Following discussions about the differences in these status, requested Full Code status. Advanced Care Planning Face to Face Time: 16 minutes. Charges/Coding Visit Charges Inpatient E&M: 47580 Init Hosp L3 Procedures Hospitalists Procedures: 65370 Advncd Care Plan 30 Min
[2024-06-13] MEDS: levoFLOXacin IV 750 MG/150 ML BAG 100 MG IV (21:32)
[2024-06-13] MEDS: Furosemide 40 MG/4 ML Vial IV (21:46)
--- NOTE | 2024-06-13 21:46 | CASEMGMT ---
Care Management Face to Face with patient for initial transition planning/care coordination assessment in the ED.? This machine sign writer introduced self and role at [facility]. Patient alert and oriented. Patient willing to participate in assessment and is able to answer all questions appropriately.? Care providers, pharmacy, and demographics verified. Admitting Diagnosis: hypoxia Other diagnosis history: CKD, hypothyroidism, GERD, hypertension, Diabetes type 2 PCP: [facility] Specialists: ?None Preferred Pharmacy: [facility] Insurance: Medicare Prescription Benefit: yes Living Will/HPOA: ??Patient states HPOA completed, unsure about LW LNOK: Living Arrangements: ?Lives with in a 2 story home, they only use 1st floor.? Patient is bed bound and total assist with all ADLs and IADLs Transportation: Squad when emergent, otherwise unable to leave home DME: hospital bed, nadira lift, wheelchair HHC: ?patient has HH aide that come to the home M-F 3-4 hours per day SNF/Rehab:? [facility] Resources: ?Direction home CM ? [facility] History: Depression and anxiety Patient goals: Patients discharge goals are uncertain at this time. Disposition Plan: admission to acute; RN CM/SW to follow for discharge planning needs that may arise. Luisa Hollis, STUDENT SERVICES ADVISOR, SPEECH PATHOLOGIST ASSISTANT
--- NOTE | 2024-06-13 21:55 | US_ITS ---
PROCEDURE: VENOUS DUPLEX IMAG/GREGG EXTREM 06/13/2024 REASON FOR EXAM: F 78 y/o Swelling TECHNIQUE: Grayscale color flow and doppler analysis of the bilateral lower extremity. COMPARISON: None FINDINGS: There is no intraluminal echogenicity to suggest the presence of a deep venous thrombosis. Appropriate respiratory variation, augmentation and venous compression is noted. US/Venous Duplex Imag/Gregg Extrem IMPRESSION: No deep venous thrombosis identified in the extremity. Reading Location: [facility]
[2024-06-13 21:56] LABS: Mucous, Urine 0 SEEN /hpf (<or=2+)
[2024-06-13 21:58] LABS: Magnesium 1.6 mg/dL (1.5-2.2)
[2024-06-13 22:04] LABS: Allen Test Positive; Base Excess 2 mmol/L (-2 to +2); Bicarbonate 28.9 mmol/L (22-26); Blood Gas Specimen Type ART; Comment 20/10 cmH2O; Mode Not entered; O2 Delivery Device BiPAP; PO2 81 mmHG (75-100); RR 12; SITE L Radial; SO2 94 % (95-99); Total Carbon Dioxide 31 mmol/L; pCO2 60.6 mmHg (35-45); pH 7.29 (7.35-7.45)
[2024-06-13 22:11] LABS: Color, Urine Yellow (Yellow); Glucose, Dipstick 1000 mg/dl (Normal); Ketone-Dipstick Negative (Negative); Leukocyte Esterase-Dipstick 500 /ul (Negative); Nitrite-Dipstick Positive (Negative); Occult Blood-Urine 25 /ul (Negative); Protein-Dipstick 100 mg/dl (Negative); Specific Gravity, Urine 1.015 (1.002-1.030); Urine Bilirubin Dipstick Negative (Negative); Urine Clarity Sl. Cloudy (Clear); Urine Urobilinogen Normal (Normal)
[2024-06-13 22:32] LABS: Troponin T High Sens 2 HR 45 ng/L (<=14)
[2024-06-13 22:58] LABS: Bacteria 2+ /hpf (None Seen); Red Blood Cells-Urine 0-5 SEEN /hpf (0-5); Squamous Epithelial Cells - UA 0-5 SEEN /hpf (5-10); White Blood Cells >100 SEEN /hpf (0-5); Yeast-Urine 1+ /hpf (None Seen)
[2024-06-14] VITALS (14 sets, daily range): BP systolic 122–130; BP diastolic 50–65; PULSE 60–76; RESP 12–28; TEMP 35.8–36.7; O2SAT 94–97; BMI 63.3
[2024-06-14 01:22] LABS: Procalcitonin 0.06 ng/mL (<=0.10)
[2024-06-14 01:59] LABS: Troponin T High Sens 4 HR 51 ng/L (<=14)
[2024-06-14] MEDS: Menthol/Lanolin/Calamine/Znox 113 GM Tube 1 APPLIC TOPICAL ×3 (02:42→20:27)
[2024-06-14] MEDS: Nystatin Powder 15gm Bottle 1 APPLIC TOPICAL ×4 (02:42→20:32)
[2024-06-14] MEDS: Potassium Chloride Oral Tablet 10 MEQ PO ×2 (02:49→09:45)
[2024-06-14] MEDS: Enoxaparin 40 MG/0.4 ML Syringe SC ×3 (02:50→20:29)
[2024-06-14] MEDS: Atorvastatin Calcium 20 MG Tablet PO ×2 (02:50→20:29)
[2024-06-14] MEDS: Metoprolol Tartrate 50 MG Tablet PO ×3 (02:50→20:33)
[2024-06-14] MEDS: Montelukast 10 MG Tablet PO ×2 (02:51→20:30)
[2024-06-14] MEDS: Docusate Sodium 100 MG Capsule 200 MG PO ×2 (02:52→20:28)
[2024-06-14] MEDS: Insulin Lispro 100 UNIT/ML INSULN.PEN SC ×4 (03:03→20:46)
[2024-06-14] MEDS: Insulin Glargine-YFGN 100 UNIT/ML Pen 50 UNIT SC ×2 (03:05→20:45)
[2024-06-14 03:26] LABS: Allen Test Positive; Base Excess 4 mmol/L (-2 to +2); Bicarbonate 29.9 mmol/L (22-26); Blood Gas Specimen Type ART; Mode Not entered; O2 Delivery Device BiPAP; PEEP 10; PIP 20; PO2 70 mmHG (75-100); RR 12; SITE R Radial; SO2 92 % (95-99); Total Carbon Dioxide 32 mmol/L; pCO2 60.2 mmHg (35-45)
[2024-06-14 04:03] LABS: Bedside Glucose 218 mg/dL (74-106)
[2024-06-14 05:40] LABS: Absolute Lymphocyte Count 0.91 X10^3/uL (0.83-4.51); Absolute Neutrophil Count 5.9 X10^3/uL (2.0-7.7); Hematocrit 52.5 % (37-47); Hemoglobin 15.5 g/dL (12.0-15.0); Lymphocyte # 0.91 X10^3/ul (0.83-4.51); Lymphocyte % 13.2 % (19-41); Mean Corp Hgb Conc 29.5 g/dL (32-36); Mean Corpuscular Hgb 27.5 pg (27.0-32.0); Mean Corpuscular Volume 93.1 fL (81-99); Mean Platelet Vol. 9.4 fl (6.2-12.0); Monocyte# 0.05 X10^3/uL; Monocyte% 0.7 % (0-10); NRBC Flagged by Analyzer 0 % (0-5); Neutrophil # 5.89 X10^3/uL (2.7-7.7); Neutrophil % 85.8 % (47-70); POSITIVE COUNT YES; RBC Distribution Width CV 15.1 % (11.6-14.6); Red Blood Count 5.64 M/mm3 (4.2-5.4); White Blood Count 6.9 K/mm3 (4.4-11.0)
--- NOTE | 2024-06-14 05:55 | ECHOCS_ITS ---
Reason For Study Reason For Study: CHF Procedure This was a 2D Doppler, Color Flow transthoracic echocardiogram. The patient was scanned supine. Due to morbid obesity (BMI 76.5) & suboptimal positioning. The study was technically limited. The study was technically difficult. Contrast injection was performed. Exam performed portable in patient room. Left Ventricle Normal LV size. Left ventricular systolic function is normal. The left ventricular ejection fraction is 60 %. Right Ventricle Normal right ventricle. Pericardium/Pleural No pericardial effusion. Medication Diluted definity 4.0ml given slow IV push to enhance endocardial definition. MMode/2D Measurements & Calculations LVIDd: 4.5 cm IVSd: 1.6 cm LAV(MOD-sp4): 58.1 ml LVIDs: 3.2 cm LVPWd: 1.9 cm FS: 28.7 % LVAd ap4: 34.7 cm2 LVAd ap2: 37.7 cm2 SV(MOD-sp4): 58.0 ml LVLd ap4: 9.0 cm LVLd ap2: 9.0 cm SI(MOD-sp4): 23.3 ml/m2 EDV(MOD-sp4): 111.5 ml EDV(MOD-sp2): 135.4 ml EDV(sp4-el): 114.2 ml EDV(sp2-el): 133.4 ml LVAs ap4: 21.5 cm2 LVAs ap2: 23.4 cm2 LVLs ap4: 7.2 cm LVLs ap2: 7.6 cm ESV(MOD-sp4): 53.5 ml ESV(MOD-sp2): 60.6 ml ESV(sp4-el): 54.3 ml ESV(sp2-el): 61.3 ml EF(MOD-sp4): 52.0 % EF(MOD-sp2): 55.3 % EF(sp4-el): 52.5 % SV(MOD-sp2): 74.8 ml SV(sp4-el): 60.0 ml LA A4 area: 20.4 cm2 SI(MOD-sp2): 30.1 ml/m2 Time Measurements MV dec time: 0.17 sec Doppler Measurements & Calculations MV E max alon: 58.9 cm/sec Lat Peak E' Alon: 6.0 cm/sec Med Peak E' Alon: 5.2 cm/sec MV A max alon: 91.1 cm/sec E/E' lat: 9.9 E/E' med: 11.3 MV E/A: 0.65 MV V2 max: 99.2 cm/sec Ao V2 max: 137.8 cm/sec LV V1 max: 69.2 cm/sec MV max P.9 mmHg Ao max P.6 mmHg LV V1 max P.9 mmHg MV V2 mean: 57.9 cm/sec Ao V2 mean: 101.9 cm/sec LV V1 mean P.3 mmHg MV mean P.5 mmHg Ao mean P.4 mmHg LV V1 mean: 55.6 cm/sec MV V2 VTI: 21.1 cm Ao V2 VTI: 31.4 cm LV V1 VTI: 19.7 cm AV (velocity ratio): 0.63 PA V2 max: 124.7 cm/sec PA V2 mean: 80.6 cm/sec ECHO/Echo Complete W/ Contrast Interpretation Summary Normal LV size. Left ventricular systolic function is normal. The left ventricular ejection fraction is 60 %. Contrast injection was performed. The study was technically limited. Ordering Physician: Estela Staton Referring Physician: Socrates Spangler Performed By: Stephenie Gerardo RDCS, RVT
[2024-06-14 05:57] LABS: Differential Indicated SCAN CRITERIA MET
[2024-06-14] MEDS: Levothyroxine 100 MCG Tablet PO (06:20)
[2024-06-14] MEDS: Methylprednisolone Sod Succ 40 MG/ML VIAL IV ×3 (06:20→20:33)
[2024-06-14 06:22] LABS: ALB/GLOB Ratio 1.2 RATIO (0.9-2.4); AST(SGOT) 32 U/L (<=31); Alanine Aminotransfer ALT/SGPT 19 U/L (<=34); Albumin, Serum 3.2 g/dL (3.4-4.8); Alkaline Phosphatase 107 U/L (35-104); Anion Gap 16 (5-15); BUN 32 mg/dL (4-19); BUN/Creat Ratio 22.6 RATIO (10-20); Carbon Dioxide 19.3 mmol/L (21.0-32.0); Chloride 105 mmol/L (98-108); Creatinine, Serum 1.41 mg/dL (0.70-1.20); EST Glomerular Filtration Rate 38 (>60); Estimated Creatinine Clearance 53.62 ml/min (50-250); Globulin 2.7 g/dL (2.2-4.2); Glucose 221 mg/dL (70-99); Potassium 4.8 mmol/L (3.3-5.1); Protein, Total 5.9 g/dL (5.9-8.4); Sodium Level 140 mmol/L (133-145); Total Bilirubin 0.41 mg/dL (0.00-1.30)
[2024-06-14] MEDS: 0.9% Saline Lock 10 ML Syringe IV ×2 (06:24→20:36)
[2024-06-14 06:34] LABS: Cholesterol 104 mg/dL (<=200); High Density Lipoprotein 35 mg/dL; Low Density Lipoprotein Calc. 56 mg/dL; Triglycerides 65 mg/dL; Very Low Density Lipoprotein 13 mg/dL (5-40); cholesterol:hdl ratio screen 3.01
[2024-06-14 06:53] LABS: Bedside Glucose 204 mg/dL (74-106)
[2024-06-14 07:06] LABS: Platelet Count 101 K/mm3 (150-450)
[2024-06-14] MEDS: Ipratropium/Albuterol Sulfate 3 ML AMPUL.NEB INHALATION ×3 (07:53→19:47)
[2024-06-14] MEDS: amLODIPine 5 MG Tablet PO (09:45)
[2024-06-14] MEDS: hydroCHLOROthiazide 25 MG Tablet PO (09:45)
[2024-06-14] MEDS: Pantoprazole Sodium 40 MG Tablet PO (09:45)
[2024-06-14] MEDS: Aspirin E.C. 81 MG Tablet PO (09:45)
[2024-06-14] MEDS: Losartan Potassium 100 MG Tablet PO (09:45)
[2024-06-14] MEDS: Loratadine 10 MG Tablet PO (09:45)
[2024-06-14] MEDS: Furosemide 40 MG/4 ML Vial IV ×2 (09:46→17:55)
--- NOTE | 2024-06-14 09:59 | PCM.PN.HOSP ---
Reason for Visit Reason for Visit: Diagnoses Acute respiratory failure with hypoxia (06/13/24) Objective Data Objective Data Vital Signs: Vital Signs Temp Pulse Resp BP Pulse Ox O2 Del Method O2 Flow Rate 98.0 F 71 18 122/55 H 97 Nasal Cannula 4 06/14/24 09:34 06/14/24 09:34 06/14/24 09:34 06/14/24 09:34 06/14/24 09:34 06/14/24 09:34 06/14/24 09:34 FiO2 30 06/14/24 03:15 Oxygen Flow Rate (L/min) 4 Oxygen Delivery Method Nasal Cannula Weight: 392 lb 3.237 oz Body Mass Index (BMI) 63.3 Intake & Output: Intake and Output for Last 24 Hours 06/12/24 06/13/24 06/14/24 23:59 23:59 23:59 Intake Total 150 / 150 Output Total 2150 / 2150 Balance -1999 / Lab / Micro Data 06/14/24 05:32 06/14/24 05:37 Labs: Laboratory Results - last 24 hr 06/13/24 19:40: WBC 15.4 H, RBC 5.84 H, Hgb 16.1 H, Hct 53.3 H, MCV 91.3, MCH 27.6, MCHC 30.2 L, RDW Std Deviation 50.9 H, RDW Coeff of Ryan 15.3 H, Plt Count 231, MPV 9.4, Immature Gran % (Auto) 0.300, Neut % (Auto) 40.5 L, Lymph % (Auto) 53.9 H, [place] % (Auto) 4.3, Eos % (Auto) 0.7, Baso % (Auto) 0.3, Absolute Neuts (auto) 6.2, Absolute Lymphs (auto) 8.27 H, Nucleated RBC % 0, Atypical Lymphocytes 2+, Reactive Lymphocytes 1+, D-Dimer Quant (PE/DVT) 1.63 H*, Sodium 141, Potassium 4.2, Chloride 104, Carbon Dioxide 26.5, Anion Gap 10, BUN 28 H, Creatinine 1.14, Estim Creat Clear Calc 61.75, Est GFR (MDRD) Non-Af 49 L, BUN/Creatinine Ratio 24.6 H, Glucose 154 H, Lactic Acid 1.4, Calcium 9.1, Magnesium 1.6, Troponin T High Sens 34 H, [place] [address] H 06/13/24 21:47: Troponin T Hi Sens 2 Hr 45 H, Urine Color Yellow, Urine Clarity Sl. Cloudy, Urine pH 6.0, Ur Specific [place] 1.015, Urine Protein 100 H, Urine Glucose (UA) 1000 H, Urine Ketones Negative, Urine Occult Blood 25 H, Urine Nitrite Positive H, Urine Bilirubin Negative, Urine Urobilinogen Normal, Ur Leukocyte Esterase 500 H, Urine RBC 0-5 SEEN, Urine WBC >100 SEEN, Ur Squamous Epith Cells 0-5 SEEN, Urine Bacteria 2+, Urine Mucus 0 SEEN, Urine Yeast 1+ 06/14/24 00:23: Troponin T Hi Sens 4Hr 51 H, Procalcitonin 0.06 06/14/24 03:02: POC Glucose 218 H 06/14/24 05:32: WBC 6.9, RBC 5.64 H, Hgb 15.5 H, Hct 52.5 H, MCV 93.1, MCH 27.5, MCHC 29.5 L, RDW Std Deviation 52.0 H, RDW Coeff of Ryan 15.1 H, Plt Count 101 L, MPV 9.4, Immature Gran % (Auto) 0.300, Neut % (Auto) 85.8 H, Lymph % (Auto) 13.2 L, [place] % (Auto) 0.7, Eos % (Auto) 0.0, Baso % (Auto) 0.0, Absolute Neuts (auto) 5.9, Absolute Lymphs (auto) 0.91, Nucleated RBC % 0 06/14/24 05:37: Sodium 140, Potassium 4.8, Chloride 105, Carbon Dioxide 19.3 L, Anion Gap 16 H, BUN 32 H, Creatinine 1.41 H, Estim Creat Clear Calc 53.62, Est GFR (MDRD) Non-Af 38 L, BUN/Creatinine Ratio 22.6 H, Glucose 221 H, Calcium 9.0, Total Bilirubin 0.41, AST 32, ALT 19, Alkaline Phosphatase 107 H, Total Protein 5.9, Albumin 3.2 L, Globulin 2.7, Albumin/Globulin Ratio 1.2, Triglycerides 65, Cholesterol 104, LDL Cholesterol, Calc 56, VLDL Cholesterol 13, HDL Cholesterol 35 L, Cholesterol/HDL Ratio 3.01, TSH 1.690, Free T4 1.30 06/14/24 06:17: POC Glucose 204 H Micro: Microbiology 06/14/24 02:45 Urine Catheter - Reese Legionella Antigen - Final 06/14/24 02:45 Urine Catheter - Reese Streptococcus pneumoniae Antigen (M - Final 06/13/24 22:55 Mucosa - Nasopharyngeal Respiratory Panel (PCR) - Final 06/13/24 19:55 Mucosa - Nose SARS-CoV-2, Influenza & RSV (PCR) - Final ABG Data ABG results: ABG 06/13/24 06/14/24 22:00 03:22 Specimen Type ART ART Sample Site L Radial R Radial pH 7.29 L 7.30 L Bicarbonate Actual 28.9 H 29.9 H Total CO2 31 32 Base Excess 2 4 H O2 Saturation 94 L 92 L O2 % 40.0 30.0 ABG pCO2 60.6 H 60.2 H ABG pO2 81 70 L Jeronimo Test Positive Positive Respiration Rate 12 12 O2 Delivery Device BiPAP BiPAP Vent Mode Not entered Not entered POC PEEP 10 Peak Inspir Pressure 20 Clinical Comments 20/10 cmH2O Radiography Diagnostic Testing: Radiology Impression Chest X-Ray 06/13/24 21:05 IMPRESSION: Marked cardiomegaly with right perihilar airspace opacities, may represent congestion/edema versus infection. Small left pleural effusion. Reading [facility] Venous Duplex 06/13/24 21:55 IMPRESSION: No deep venous thrombosis identified in the extremity. Reading Location: [facility] Physical Exam Narrative Seen and examined Patient was admitted with shortness of breath. Earlier her BiPAP was not working for last 3 to 4 weeks. No fever. Feels chest congestion, coughing up mucus. No fever Physical exam General: Alert, Oriented x3, Cooperative, super morbid obesity: BMI 63.3 kg/m? HEENT: Short and wide neck atraumatic, PERRLA, EOMI, Normocephalic Oral: Deep oropharyngeal strength not visualized Neck: Supple, No JVD, Negative Carotid Bruits Chest wall/Lungs: Air entry diminished in bilateral lung bases. Mild bilateral basal wheezing/crepitations Cardiovascular: Low intensity heart sounds Rally from morbid obesity. No M/G/R Abdomen: Bowel Sounds Present, Soft, Non Tender, Non-Distended : No dysuria. No renal angle tenderness. No suprapubic tenderness. Extremities: Bilateral pedal edema 3+ edema, Capillary Refill Less than 3 Seconds Skin: No rashes, No breakdown Musculoskeletal: No Tenderness to Palpation of Joints or Extremities ROM decreased. Neurological: Cranial nerves II-XII grossly intact, DTR 2+/4. No acute focal neurological deficit. Psych/Mental Status: Flat affect Assessment & Plan Assessment/Plan (1) Acute hypoxic respiratory failure: PLAN: Plan The patient is an 78 y/o F was brought to ED by EMS for shortness of breath and hypoxia, pulse ox 70% on room air for 1 day. Not on oxygen at baseline. Patient had slight nonproductive cough, mild congestion and rhinorrhea. No fever #1. Acute Hypoxic Respiratory Failure secondary to Possible RLL Infilrtrate/Community Acquired PNA with Acute Bronchospasms in addition to Possible Acute Decompensated HF unclear type and classification: Patient denies chest pain. Triple PCR for SARS-CoV-2, flu and RSV are negative. Respiratory panel and urinary antigens are negative. Leukocytosis resolved. Chest x-ray reviewed and shows unturned ventilation, cardiomegaly suggestive of pulmonary congestion/edema. ABG 7.30/60/70s on BiPAP 20/10, RR 12 at 30% FiO2. Bicarb reported in BMP since long as it suddenly dropped from 26.5-19.3 but in ABGs about 31-32. Therefore mainly seems chronic respiratory acidosis Patient started on IV ceftriaxone and azithromycin. Empirically on IV Solu-Medrol. Patient is being managed on scheduled bronchodilator, IV Solu-Medrol, Mucinex, incentive spirometry and Pep. #2. Chronic Kidney Disease Stage IIIA: Admission BUN/Cr 28/1.14, GFR 49, baseline renal function unfortunately remote with last noted 11/22/2016 creatinine 0.98, 06/12: BUN/creatinine 32/1.41. HCTZ discontinued. Losartan dose decreased to 50 mg daily. Monitor kidney function. #3. Hypertension: Continue home regimen including metoprolol, amlodipine, losartan, hydrochlorothiazide, pulse dose with IV lasix as noted above, PRN hydralazine. 06/14:HCTZ discontinued. Losartan dose decreased to 50 mg daily. #4. Hyperlipidemia: continue patient statin therapy. FLP LDL 56, HDL 35. #5. Hypothyroidism: continue patient home levothyroxine regimen. TSH/FT4 1.690 and 1.30 respectively; normal. #6. Diabetes mellitus type II: Hold oral home regimen, continue home insulin regimen, ADA diet, accu checks w/ ISS. #7. Morbid Obesity/significantly chronically limited mobility normally using predominantly wheelchair: Weight loss and lifestyle changes encouraged, nutrition consulted. #8. Allergic rhinitis: continue patient home fexofenadine regimen. #9. GERD: continue patient on PPI. #10. JAYA, hypoventilation syndrome: Complicates presentation, normally using CPAP nightly, given current presentation will continue with BiPAP. Transition once appropriate. #11. DVT prophylaxis: Chemoprophylactic dosing of Lovenox pending duplex ultrasound. Given inability to fit in the scanner at this point pending bilateral lower extremity duplex ultrasounds and if there is no obvious clot in her legs then lower suspicion for anything in her lungs but if any concerning findings in the legs then certainly would transition to heparin drip at that point. #12. CODE status: Patient NICOLE is her daughter and living will is currently in place. Discussed CODE status at length including difference between FULL code, DNR-CCA and DNR-CC status. Following discussions about the differences in these status, requested Full Code status. Charges/Coding Visit Charges Inpatient E&M: 06503 Subs Hosp L2
[2024-06-14] MEDS: Ceftriaxone 1 GM/50 ML BAG IV (10:02)
[2024-06-14] MEDS: Azithromycin 500 MG in 0.9% Normal Saline (250mL Bag) 250 ML 255 MG IV (10:48)
[2024-06-14 12:20] LABS: Bedside Glucose 235 mg/dL (74-106)
--- NOTE | 2024-06-14 13:49 | CASEMGMT ---
BE CUMMINS note: Call received from Radha pt's Mobile Architect from [facility]. She states pt has BICYCLE REPAIR[employer] through [employer] MWF for 3 hrs/day and / 4 hrs/day. Pt also has an emergency response button. She declines home-delivered meals, as her aide cooks for her. Katerine COX RN CM
[2024-06-14] MEDS: guaiFENesin/D-Methorphan TAB.SR.12H 2 TABLET PO ×2 (13:59→20:29)
--- NOTE | 2024-06-14 15:44 | CASEMGMT ---
Social Work SW met with pt and introduced self and role of SW. Social Determinant of Health assessment completed. Pt denies any concerns at home. Pt is bedbound and has been for several years. Pt does have a nadira lift but does not use it. Pt states her and her caregivers provide needed care. Pt expressing desire to return home at discharge. Nursing questioning pt safety as skin on left side of body does not appear cared for but right side does. Pt states that bed is pushed up against a wall and therefore caregiver cannot get to the left side for good care. Pt denies room in the space to move the bed away from the wall. Pt is active with [facility] and Radha Valdovinos is the [employer]. SW spoke with [facility] who confirms pt cannot move furniture but also states pt receives adequate care by family and caregivers. Pt has home health aids for 3 hours a day M,W, F and 4 hours a day T,TH. Pt spouse provides care the rest of the time. Pt does have a medical alert system. Radha states pt needs a new hospital bed but it has not been delivered since pt cannot get out of the bed to have the bed replaced. Radha will work on getting the bed replaced while pt is hospitalized. SW to notify [facility] at time of DCYAMILET Cowart
[2024-06-14 17:06] LABS: Bedside Glucose 195 mg/dL (74-106)
--- NOTE | 2024-06-14 18:41 | CASEMGMT ---
BE CUMMINS NOTE: BE CUMMINS to room. Introduced self and role. Pt states she has a CPAP. No home O2. Discussed possible need of home O2 @ dc. Pt states she is not sure what DME co should want to use and would like to talk w/her daughter about this before making a decision. She states she has a glucometer @ home w/sufficient supplies. She also has enough insulin and needles @ home. Pt voices no other dc needs at this time. Katerine COX RN, CM
[2024-06-15] VITALS (15 sets, daily range): BP systolic 104–139; BP diastolic 48–91; PULSE 41–78; RESP 15–18; TEMP 36.4–36.8; O2SAT 94–98; BMI 63.2
[2024-06-15 00:34] LABS: Bedside Glucose 230 mg/dL (74-106)
--- NOTE | 2024-06-15 05:15 | CPS ---
pt has been off and on home cpap unit a couple of times tonight, 6L O2 bled in, nasal O2 on when pt not on nasal cpap
[2024-06-15 06:24] LABS: Absolute Lymphocyte Count 1.44 X10^3/uL (0.83-4.51); Absolute Neutrophil Count 8.6 X10^3/uL (2.0-7.7); Basophil# 0.01 X10^3/uL; Basophil% 0.1 % (0-1); Hematocrit 49.6 % (37-47); Hemoglobin 15.1 g/dL (12.0-15.0); Lymphocyte # 1.44 X10^3/ul (0.83-4.51); Lymphocyte % 13.8 % (19-41); Mean Corp Hgb Conc 30.4 g/dL (32-36); Mean Corpuscular Hgb 27.6 pg (27.0-32.0); Mean Corpuscular Volume 90.7 fL (81-99); Mean Platelet Vol. 9.5 fl (6.2-12.0); Monocyte# 0.31 X10^3/uL; NRBC Flagged by Analyzer 0 % (0-5); Neutrophil # 8.61 X10^3/uL (2.7-7.7); Neutrophil % 82.7 % (47-70); Platelet Count 177 K/mm3 (150-450); RBC Distribution Width SD 50.6 fl (35.1-43.9); Red Blood Count 5.47 M/mm3 (4.2-5.4); White Blood Count 10.4 K/mm3 (4.4-11.0)
[2024-06-15] MEDS: Insulin Lispro 100 UNIT/ML INSULN.PEN SC ×3 (06:33→22:53)
[2024-06-15] MEDS: Levothyroxine 100 MCG Tablet PO (06:33)
[2024-06-15] MEDS: Methylprednisolone Sod Succ 40 MG/ML VIAL IV ×3 (06:33→22:57)
[2024-06-15 06:37] LABS: Bedside Glucose 188 mg/dL (74-106)
[2024-06-15] MEDS: Nitroglycerin Oint 1 INCH PACKET TD ×3 (06:39→22:57)
[2024-06-15 06:59] LABS: Anion Gap 12 (5-15); BUN 37 mg/dL (4-19); BUN/Creat Ratio 23.9 RATIO (10-20); Carbon Dioxide 26.8 mmol/L (21.0-32.0); Chloride 102 mmol/L (98-108); Creatinine, Serum 1.54 mg/dL (0.70-1.20); EST Glomerular Filtration Rate 34 (>60); Estimated Creatinine Clearance 49.08 ml/min (50-250); Glucose 191 mg/dL (70-99); Magnesium 1.7 mg/dL (1.5-2.2); Potassium 3.8 mmol/L (3.3-5.1); Sodium Level 140 mmol/L (133-145)
[2024-06-15] MEDS: Ipratropium/Albuterol Sulfate 3 ML AMPUL.NEB INHALATION ×2 (07:04→12:22)
--- NOTE | 2024-06-15 08:47 | PCM.PN.HOSP ---
Reason for Visit Reason for Visit: Diagnoses Acute respiratory failure with hypoxia (06/13/24) Objective Data Objective Data Vital Signs: Vital Signs Temp Pulse Resp BP Pulse Ox O2 Del Method O2 Flow Rate 97.7 F L 62 18 139/91 H 98 High Flow 6 06/15/24 06:25 06/15/24 07:05 06/15/24 07:05 06/15/24 06:25 06/15/24 07:05 06/15/24 07:05 06/15/24 07:05 FiO2 30 06/14/24 03:15 Oxygen Flow Rate (L/min) 6 Oxygen Delivery Method High Flow Weight: 391 lb 15.71 oz Body Mass Index (BMI) 63.2 Intake & Output: Intake and Output for Last 24 Hours 06/13/24 06/14/24 06/15/24 23:59 23:59 23:59 Intake Total 695 / 695 Output Total 2750 / 2750 1025 / 1025 Balance -5 / -205 -1025 / -1025 Lab / Micro Data 06/15/24 05:55 06/15/24 05:55 Labs: Laboratory Results - last 24 hr 06/14/24 12:02: POC Glucose 235 H 06/14/24 16:43: POC Glucose 195 H 06/14/24 20:41: POC Glucose 230 H 06/15/24 05:55: WBC 10.4, RBC 5.47 H, Hgb 15.1 H, Hct 49.6 H, MCV 90.7, MCH 27.6, MCHC 30.4 L, RDW Std Deviation 50.6 H, RDW Coeff of Ryan 15.0 H, Plt Count 177, MPV 9.5, Immature Gran % (Auto) 0.400, Neut % (Auto) 82.7 H, Lymph % (Auto) 13.8 L, [place] % (Auto) 3.0, Eos % (Auto) 0.0, Baso % (Auto) 0.1, Absolute Neuts (auto) 8.6 H, Absolute Lymphs (auto) 1.44, Nucleated RBC % 0, Sodium 140, Potassium 3.8, Chloride 102, Carbon Dioxide 26.8, Anion Gap 12, BUN 37 H, Creatinine 1.54 H, Estim Creat Clear Calc 49.08 L, Est GFR (MDRD) Non-Af 34 L, BUN/Creatinine Ratio 23.9 H, Glucose 191 H, Calcium 9.0, Magnesium 1.7 06/15/24 06:19: POC Glucose 188 H Micro: Microbiology 06/14/24 02:45 Urine Catheter - Reese Legionella Antigen - Final 06/14/24 02:45 Urine Catheter - Reese Streptococcus pneumoniae Antigen (M - Final 06/13/24 22:55 Mucosa - Nasopharyngeal Respiratory Panel (PCR) - Final 06/13/24 19:55 Mucosa - Nose SARS-CoV-2, Influenza & RSV (PCR) - Final Radiography Diagnostic Testing: Radiology Impression Echocardiogram 06/14/24 05:55 Interpretation Summary Normal LV size. Left ventricular systolic function is normal. The left ventricular ejection fraction is 60 %. Contrast injection was performed. The study was technically limited. Ordering Physician: Estela Staton Referring Physician: Socrates Spangler Performed By: Stephenie Gerardo, RDCS, RVT Physical Exam Narrative Seen and examined Shortness of breath is better. No chest pain. On BiPAP at night and naps Patient was admitted with shortness of breath. Earlier her BiPAP was not working for last 3 to 4 weeks. No fever. Feels chest congestion, coughing up mucus. No fever Physical exam General: Alert, Oriented x3, Cooperative, super morbid obesity: BMI 63.3 kg/m?, limited exam HEENT: Short and wide neck atraumatic, PERRLA, EOMI, Normocephalic Oral: Deep oropharyngeal strength not visualized Neck: Supple, No JVD, Negative Carotid Bruits Chest wall/Lungs: Air entry diminished in bilateral lung bases. Cannot sit up because of morbid body habitus. No crepitations on anterior lung auscultation. Cardiovascular: Low intensity heart sounds Rally from morbid obesity. No M/G/R Abdomen: Bowel Sounds Present, Soft, Non Tender, Non-Distended : No dysuria. No renal angle tenderness. No suprapubic tenderness. Extremities: Bilateral pedal edema 2+ edema, Capillary Refill Less than 3 Seconds Skin: No rashes, No breakdown Musculoskeletal: No Tenderness to Palpation of Joints or Extremities ROM decreased. Neurological: Cranial nerves II-XII grossly intact, DTR 2+/4. No acute focal neurological deficit. Psych/Mental Status: Flat affect Assessment & Plan Assessment/Plan (1) Acute hypoxic respiratory failure: PLAN: Plan The patient is an 78 y/o F was brought to ED by EMS for shortness of breath and hypoxia, pulse ox 70% on room air for 1 day. Not on oxygen at baseline. Patient had slight nonproductive cough, mild congestion and rhinorrhea. No fever #1. Acute Hypoxic Respiratory Failure secondary to Possible RLL Infilrtrate/Community Acquired PNA with Acute Bronchospasms in addition to Possible Acute Decompensated HF unclear type and classification: Patient denies chest pain. Triple PCR for SARS-CoV-2, flu and RSV are negative. Respiratory panel and urinary antigens are negative. Leukocytosis resolved. Chest x-ray reviewed and shows unturned ventilation, cardiomegaly suggestive of pulmonary congestion/edema. ABG 7.30/60/70s on BiPAP 20/10, RR 12 at 30% FiO2. Bicarb reported in BMP since long as it suddenly dropped from 26.5-19.3 but in ABGs about 31-32. Therefore mainly seems chronic respiratory acidosis Patient started on IV ceftriaxone and azithromycin. Empirically on IV Solu-Medrol. Patient is being managed on scheduled bronchodilator, IV Solu-Medrol, Mucinex, incentive spirometry and Pep. /: Repeat chest x-ray portable done with suboptimal images. Shows improvement in lung congestion but underventilated. Continue antibiotics and above treatment. Next #2. QUYNH on chronic Kidney Disease Stage IIIA: Admission BUN/Cr 28/1.14, GFR 49, baseline renal function unfortunately remote with last noted 11/22/2016 creatinine 0.98, 4/3: BUN/creatinine 32/1.41. HCTZ discontinued. Losartan dose decreased to 50 mg daily. Monitor kidney function. /4: Creatinine jumped up from 1.14-1.54 in 48 hours therefore meets criteria for QUYNH. Hold furosemide and losartan and follow-up kidney function. #3. Hypertension: Continue home regimen including metoprolol, amlodipine, losartan, hydrochlorothiazide, pulse dose with IV lasix as noted above, PRN hydralazine. 4/3:HCTZ discontinued. Losartan dose decreased to 50 mg daily. #4. Hyperlipidemia: continue patient statin therapy. FLP LDL 56, HDL 35. #5. Hypothyroidism: continue patient home levothyroxine regimen. TSH/FT4 1.690 and 1.30 respectively; normal. #6. Diabetes mellitus type II: Hold oral home regimen, continue home insulin regimen, ADA diet, accu checks w/ ISS. #7. Morbid Obesity/significantly chronically limited mobility normally using predominantly wheelchair: Weight loss and lifestyle changes encouraged, nutrition consulted. #8. Allergic rhinitis: continue patient home fexofenadine regimen. #9. GERD: continue patient on PPI. #10. JAYA, hypoventilation syndrome: Complicates presentation, normally using CPAP nightly, given current presentation will continue with BiPAP. Transition once appropriate. #11. DVT prophylaxis: Chemoprophylactic dosing of Lovenox pending duplex ultrasound. Given inability to fit in the scanner at this point pending bilateral lower extremity duplex ultrasounds and if there is no obvious clot in her legs then lower suspicion for anything in her lungs but if any concerning findings in the legs then certainly would transition to heparin drip at that point. #12. CODE status: Patient NICOLE is her daughter and living will is currently in place. Discussed CODE status at length including difference between FULL code, DNR-CCA and DNR-CC status. Following discussions about the differences in these status, requested Full Code status. Charges/Coding Visit Charges Inpatient E&M: 87383 Subs Hosp L2
[2024-06-15] MEDS: Furosemide 40 MG/4 ML Vial IV (09:41)
[2024-06-15] MEDS: Losartan Potassium 50 MG Tablet PO (09:41)
[2024-06-15] MEDS: Metoprolol Tartrate 50 MG Tablet PO (09:41)
[2024-06-15] MEDS: Aspirin E.C. 81 MG Tablet PO (09:41)
[2024-06-15] MEDS: Menthol/Lanolin/Calamine/Znox 113 GM Tube 1 APPLIC TOPICAL ×2 (09:44→22:51)
[2024-06-15] MEDS: Enoxaparin 40 MG/0.4 ML Syringe SC ×2 (09:45→22:55)
[2024-06-15] MEDS: guaiFENesin/D-Methorphan TAB.SR.12H 2 TABLET PO ×2 (09:45→22:55)
[2024-06-15] MEDS: Nystatin Powder 15gm Bottle 1 APPLIC TOPICAL ×3 (09:46→22:52)
[2024-06-15] MEDS: Pantoprazole Sodium 40 MG Tablet PO (09:46)
[2024-06-15] MEDS: Ceftriaxone 1 GM/50 ML BAG IV (09:57)
--- NOTE | 2024-06-15 10:00 | RAD_ITS ---
EXAM: XR Chest, 1 View CLINICAL INDICATION: PULM EDEMA, R/O PNEUMONIA TECHNIQUE: Frontal view of the chest. COMPARISON: No relevant prior studies available. FINDINGS: LUNGS AND PLEURAL SPACES: See below. HEART: Cardiomegaly with pulmonary congestion and edema. Superimposed pneumonia cannot be excluded. MEDIASTINUM: Unremarkable. Normal mediastinal contour. BONES/JOINTS: Unremarkable. No acute fracture. RAD/Chest 1 View (Portable) IMPRESSION: Cardiomegaly with pulmonary congestion and edema. Superimposed pneumonia cannot be excluded. Reading Location: [facility]
[2024-06-15] MEDS: Azithromycin 500 MG in 0.9% Normal Saline (250mL Bag) 250 ML 255 MG IV (11:14)
[2024-06-15] MEDS: Loratadine 10 MG Tablet PO (11:14)
[2024-06-15 12:13] LABS: Bedside Glucose 207 mg/dL (74-106)
--- NOTE | 2024-06-15 13:42 | CASEMGMT ---
SARA spoke with Radha Valdovinos to see if she knew when the hospital bed would be delivered. Radha did not know this answer. SARA explained physician may discharge patient over the weekend. SARA told Radha that SW was going to talk with patient to see if she would be willing to go to a SNF until the bed is delivered. Radha said that would be helpful. SARA met with patient. Introduced self and role at [facility]. SW asked about going to a SNF short term while she waits on the bed to get delivered. Patient declined stating that would really upset her . He has the starting of dementia and it would upset him too much. SARA called Radha Valdovinos and left her a voice mail letting her know. [place] GRIFFIN
[2024-06-15] MEDS: Carvedilol 6.25 MG Tablet PO (17:04)
[2024-06-15 17:30] LABS: Bedside Glucose 211 mg/dL (74-106)
[2024-06-15] MEDS: Insulin Glargine-YFGN 100 UNIT/ML Pen 50 UNIT SC (22:53)
[2024-06-15] MEDS: Docusate Sodium 100 MG Capsule 200 MG PO (22:55)
[2024-06-15] MEDS: Atorvastatin Calcium 20 MG Tablet PO (22:55)
[2024-06-15] MEDS: 0.9% Saline Lock 10 ML Syringe IV (22:58)
[2024-06-16] VITALS (10 sets, daily range): BP systolic 125–141; BP diastolic 53–65; PULSE 61–75; RESP 16–18; TEMP 36.4–36.7; O2SAT 94–97; BMI 62.7
[2024-06-16 02:18] LABS: Bedside Glucose 186 mg/dL (74-106)
--- NOTE | 2024-06-16 04:57 | CPS ---
Patient is on Home unit CPAP at this time but is requiring a 6-8L oxygen bleed in when she does not use oxygen at home. Patient may need to be re-evaluated in a sleep lab setting to assess if Home CPAP settings are adequate. RN is aware.
[2024-06-16] MEDS: Insulin Lispro 100 UNIT/ML INSULN.PEN SC ×4 (06:11→21:05)
[2024-06-16] MEDS: Levothyroxine 100 MCG Tablet PO (06:11)
[2024-06-16] MEDS: Methylprednisolone Sod Succ 40 MG/ML VIAL IV ×3 (06:12→21:02)
[2024-06-16] MEDS: Nitroglycerin Oint 1 INCH PACKET TD ×3 (06:13→21:02)
[2024-06-16] MEDS: 0.9% Saline Lock 10 ML Syringe IV ×2 (06:14→21:02)
[2024-06-16 06:40] LABS: Bedside Glucose 204 mg/dL (74-106)
[2024-06-16] MEDS: Ipratropium/Albuterol Sulfate 3 ML AMPUL.NEB INHALATION ×3 (07:01→18:56)
[2024-06-16 07:10] LABS: Absolute Lymphocyte Count 1.13 X10^3/uL (0.83-4.51); Absolute Neutrophil Count 7.8 X10^3/uL (2.0-7.7); Basophil# 0.01 X10^3/uL; Basophil% 0.1 % (0-1); Hematocrit 47.2 % (37-47); Hemoglobin 14.4 g/dL (12.0-15.0); Lymphocyte # 1.13 X10^3/ul (0.83-4.51); Lymphocyte % 12.3 % (19-41); Mean Corp Hgb Conc 30.5 g/dL (32-36); Mean Corpuscular Hgb 27.8 pg (27.0-32.0); Mean Corpuscular Volume 91.1 fL (81-99); Mean Platelet Vol. 9.8 fl (6.2-12.0); Monocyte# 0.26 X10^3/uL; Monocyte% 2.8 % (0-10); NRBC Flagged by Analyzer 0 % (0-5); Neutrophil # 7.78 X10^3/uL (2.7-7.7); Neutrophil % 84.6 % (47-70); Platelet Count 167 K/mm3 (150-450); RBC Distribution Width CV 14.8 % (11.6-14.6); RBC Distribution Width SD 50.1 fl (35.1-43.9); Red Blood Count 5.18 M/mm3 (4.2-5.4); White Blood Count 9.2 K/mm3 (4.4-11.0)
[2024-06-16 07:48] LABS: Anion Gap 17 (5-15); BUN 43 mg/dL (4-19); BUN/Creat Ratio 27.3 RATIO (10-20); Calcium,Total 8.6 mg/dL (7.6-11.0); Carbon Dioxide 18.1 mmol/L (21.0-32.0); Chloride 101 mmol/L (98-108); Creatinine, Serum 1.56 mg/dL (0.70-1.20); EST Glomerular Filtration Rate 33 (>60); Estimated Creatinine Clearance 48.19 ml/min (50-250); Glucose 195 mg/dL (70-99); Potassium 4.5 mmol/L (3.3-5.1); Sodium Level 136 mmol/L (133-145)
[2024-06-16] MEDS: Enoxaparin 40 MG/0.4 ML Syringe SC ×2 (09:29→21:02)
[2024-06-16] MEDS: Aspirin E.C. 81 MG Tablet PO (09:30)
[2024-06-16] MEDS: Loratadine 10 MG Tablet PO (09:30)
[2024-06-16] MEDS: Docusate Sodium 100 MG Capsule 200 MG PO ×2 (09:30→21:02)
[2024-06-16] MEDS: Carvedilol 6.25 MG Tablet PO ×2 (09:30→17:13)
[2024-06-16] MEDS: guaiFENesin/D-Methorphan TAB.SR.12H 2 TABLET PO ×2 (09:31→21:02)
[2024-06-16] MEDS: Furosemide 40 MG/4 ML Vial IV (09:31)
[2024-06-16] MEDS: Pantoprazole Sodium 40 MG Tablet PO (09:31)
[2024-06-16] MEDS: Nystatin Powder 15gm Bottle 1 APPLIC TOPICAL ×2 (09:31→21:03)
[2024-06-16] MEDS: Menthol/Lanolin/Calamine/Znox 113 GM Tube 1 APPLIC TOPICAL ×2 (09:33→21:03)
[2024-06-16] MEDS: Ceftriaxone 1 GM/50 ML BAG IV (09:39)
[2024-06-16] MEDS: Azithromycin 500 MG in 0.9% Normal Saline (250mL Bag) 250 ML 255 MG IV (10:38)
--- NOTE | 2024-06-16 10:55 | RAD_ITS ---
EXAM: Right foot three-view radiographs CLINICAL HISTORY: Discoloration and bruising from 2nd toe to the 5th toe COMPARISON: None. TECHNIQUE: AP frontal, oblique and lateral radiographs of the right foot are obtained. FINDINGS: Previous hardware fixation of distal fibula fracture and medial malleolar fracture. Hardware appears normally positioned and intact. Diffusely demineralized bones of the right foot. Lysis of the middle and distal phalanx of the 3rd digit soft tissue swelling about 2nd, 3rd, 4th consistent lysis of the distal phalanx of the 5th digit RAD/Foot min 3 Views IMPRESSION: Findings are worrisome for osteomyelitis of the 2nd to the 5th toe. Reading Location: [facility]
[2024-06-16 12:43] LABS: Bedside Glucose 223 mg/dL (74-106)
--- NOTE | 2024-06-16 12:57 | PN.HOSP_ITS ---
Reason for Visit Reason for Visit: Diagnoses Acute respiratory failure with hypoxia (06/13/24) Objective Data Objective Data Vital Signs: Vital Signs Temp Pulse Resp BP Pulse Ox O2 Del Method O2 Flow Rate 98.0 F 75 16 125/56 H 94 High Flow 4 06/16/24 09:28 06/16/24 09:28 06/16/24 09:28 06/16/24 09:28 06/16/24 09:28 06/16/24 09:30 06/16/24 09:30 FiO2 30 06/14/24 03:15 Oxygen Flow Rate (L/min) 4 Oxygen Delivery Method High Flow Weight: 388 lb 14.327 oz Body Mass Index (BMI) 62.7 Intake & Output: Intake and Output for Last 24 Hours 06/14/24 06/15/24 06/16/24 23:59 23:59 23:59 Intake Total 695 / 695 1025 / 1025 305 / 305 Output Total 2750 / 2750 1725 / 1725 525 / 525 Balance -2055 / -2055 -700 / -700 -220 / -220 Lab / Micro Data 06/16/24 04:55 06/16/24 04:55 Labs: Laboratory Results - last 24 hr 06/15/24 17:02: POC Glucose 211 H 06/15/24 22:41: POC Glucose 186 H 06/16/24 04:55: WBC 9.2, RBC 5.18, Hgb 14.4, Hct 47.2 H, MCV 91.1, MCH 27.8, M CHC 30.5 L, RDW Std Deviation 50.1 H, RDW Coeff of Ryan 14.8 H, Plt Count 167, MPV 9.8, Immature Gran % (Auto) 0.200, Neut % (Auto) 84.6 H, Lymph % (Auto) 12.3 L, [place] % (Auto) 2.8, Eos % (Auto) 0.0, Baso % (Auto) 0.1, Absolute Neuts (auto) 7.8 H, Absolute Lymphs (auto) 1.13, Nucleated RBC % 0, Sodium 136, Potassium 4.5, Chloride 101, Carbon Dioxide 18.1 L, Anion Gap 17 H, BUN 43 H, Creatinine 1.56 H, Estim Creat Clear Calc 48.19 L, Est GFR (MDRD) Non-Af 33 L, B UN/Creatinine Ratio 27.3 H, Glucose 195 H, Calcium 8.6 06/16/24 06:01: POC Glucose 204 H 06/16/24 12:20: POC Glucose 223 H Micro: Microbiology 06/14/24 22:29 Sputum, Expectorated/Coughed Gram Stain - Final 06/14/24 22:29 Sputum, Expectorated/Coughed Respiratory Culture - Preliminary Appears to be normal respiratory hannah. Further studies to follow. 06/13/24 19:40 Blood Culture (Wb) - Right Wrist Blood Culture - Preliminary No growth in 48 hours. 06/13/24 19:40 Blood Culture (Wb) - Chest Blood Culture - Preliminary No growth in 48 hours. 06/14/24 02:45 Urine Catheter - Reese Legionella Antigen - Final 06/14/24 02:45 Urine Catheter - Reese Streptococcus pneumoniae Antigen (M - Final 06/13/24 22:55 Mucosa - Nasopharyngeal Respiratory Panel (PCR) - Final 06/13/24 19:55 Mucosa - Nose SARS-CoV-2, Influenza & RSV (PCR) - Final Radiography Diagnostic Testing: Radiology Impression Foot X-Ray 06/16/24 10:55 IMPRESSION: Findings are worrisome for osteomyelitis of the 2nd to the 5th toe. [facility] Physical Exam Narrative Seen and examined Shortness of breath is better. No chest pain. On BiPAP at night and naps. Earlier, the patient right 2nd and 3rd toes are bruised transfer at the time of admission. Patient was admitted with shortness of breath. Earlier her BiPAP was not working for last 3 to 4 weeks. No fever. Feels chest congestion, coughing up mucus. No fever Physical exam General: Alert, Oriented x3, Cooperative, super morbid obesity: BMI 63.3 kg/m?, limited exam HEENT: Short and wide neck atraumatic, PERRLA, EOMI, Normocephalic Oral: Deep oropharyngeal strength not visualized Neck: Supple, No JVD, Negative Carotid Bruits Chest wall/Lungs: Air entry diminished in bilateral lung bases. Cannot sit up because of morbid body habitus. No crepitations on anterior lung auscultation. Cardiovascular: Low intensity heart sounds Rally from morbid obesity. No M/G/R Abdomen: Bowel Sounds Present, Soft, Non Tender, Non-Distended : No dysuria. No renal angle tenderness. No suprapubic tenderness. Extremities: Bilateral pedal edema 2+ edema, Capillary Refill Less than 3 Seconds Skin: right toe bruise, bluish discoloration since admission. Musculoskeletal: No Tenderness to Palpation of Joints or Extremities ROM decreased. Neurological: Cranial nerves II-XII grossly intact, DTR 2+/4. No acute focal neurological deficit. Psych/Mental Status: Flat affect Assessment & Plan Assessment/Plan (1) Acute hypoxic respiratory failure: PLAN: Plan The patient is an 78 y/o F was brought to ED by EMS for shortness of breath and hypoxia, pulse ox 70% on room air for 1 day. Not on oxygen at baseline. Patient had slight nonproductive cough, mild congestion and rhinorrhea. No fever #1. Acute Hypoxic Respiratory Failure secondary to Possible RLL Infilrtrate/Community Acquired PNA with Acute Bronchospasms in addition to Possible Acute Decompensated HF unclear type and classification: Patient denies chest pain. Triple PCR for SARS-CoV-2, flu and RSV are negative. Respiratory panel and urinary antigens are negative. Leukocytosis resolved. Chest x-ray reviewed and shows unturned ventilation, cardiomegaly suggestive of pulmonary congestion/edema. ABG 7.30/60/70s on BiPAP 20/10, RR 12 at 30% FiO2. Bicarb reported in BMP since long as it suddenly dropped from 26.5-19.3 but in ABGs about 31-32. Therefore mainly seems chronic respiratory acidosis Patient started on IV ceftriaxone and azithromycin. Empirically on IV Solu- Medrol. Patient is being managed on scheduled bronchodilator, IV Solu-Medrol, Mucinex, incentive spirometry and Pep. 06/15: Repeat chest x-ray portable done with suboptimal images. Shows improvement in lung congestion but underventilated. Continue antibiotics and above treatment. 5: Shortness of breath is better #2. QUYNH on chronic Kidney Disease Stage IIIA: Admission BUN/Cr 28/1.14, GFR 49, baseline renal function unfortunately remote with last noted 11/22/2016 creatinine 0.98, 4/3: BUN/creatinine 32/1.41. HCTZ discontinued. Losartan dose decreased to 50 mg daily. Monitor kidney function. 06/15: Creatinine jumped up from 1.14-1.54 in 48 hours therefore meets criteria for QUYNH. Hold furosemide and losartan and follow-up kidney function. Bluish discoloration, bruise right toes present since admission: X-ray of the right foot was done reported as Lysis of the middle and distal phalanx of the 3rd digit soft tissue swelling about 2nd, 3rd, 4th consistent lysis of the distal phalanx of the 5th digit. Findings are worrisome for osteomyelitis of second to the fifth toe director of community education consulted for that. The director of community education also reviewed the x-ray and thinks the x-ray reporting is not correct/wrong. Clinically, I do not suspect #3. Hypertension: Continue home regimen including metoprolol, amlodipine, losartan, hydrochlorothiazide, pulse dose with IV lasix as noted above, PRN hydralazine. 4/3:HCTZ discontinued. Losartan dose decreased to 50 mg daily. 4/5: Patient blood pressure is better. #4. Hyperlipidemia: continue patient statin therapy. FLP LDL 56, HDL 35. #5. Hypothyroidism: continue patient home levothyroxine regimen. TSH/FT4 1.690 and 1.30 respectively; normal. #6. Diabetes mellitus type II: Hold oral home regimen, continue home insulin regimen, ADA diet, accu checks w/ ISS. #7. Morbid Obesity/significantly chronically limited mobility normally using predominantly wheelchair: Weight loss and lifestyle changes encouraged, nutrition consulted. #8. Allergic rhinitis: continue patient home fexofenadine regimen. #9. GERD: continue patient on PPI. #10. JAYA, hypoventilation syndrome: Complicates presentation, normally using CPAP nightly, given current presentation will continue with BiPAP. Transition once appropriate. #11. DVT prophylaxis: Chemoprophylactic dosing of Lovenox pending duplex ultrasound. Given inability to fit in the scanner at this point pending bilateral lower extremity duplex ultrasounds and if there is no obvious clot in her legs then lower suspicion for anything in her lungs but if any concerning findings in the legs then certainly would transition to heparin drip at that point. #12. CODE status: Patient NICOLE is her daughter and living will is currently in place. Discussed CODE status at length including difference between FULL code, DNR-CCA and DNR-CC status. Following discussions about the differences in these status, requested Full Code status. Charges/Coding Visit Charges Inpatient E&M: 99079 Subs Hosp L2
[2024-06-16 17:43] LABS: Bedside Glucose 202 mg/dL (74-106)
[2024-06-16] MEDS: Atorvastatin Calcium 20 MG Tablet PO (21:02)
[2024-06-16] MEDS: Montelukast 10 MG Tablet PO (21:02)
[2024-06-16] MEDS: Insulin Glargine-YFGN 100 UNIT/ML Pen 50 UNIT SC (21:05)
[2024-06-16 21:40] LABS: Bedside Glucose 203 mg/dL (74-106)
[2024-06-17] VITALS (10 sets, daily range): BP systolic 115–161; BP diastolic 62–93; PULSE 59–135; RESP 16–23; TEMP 36.4–36.8; O2SAT 94–97; BMI 62.8
[2024-06-17 04:51] LABS: Absolute Lymphocyte Count 1.25 X10^3/uL (0.83-4.51); Absolute Neutrophil Count 5.7 X10^3/uL (2.0-7.7); Hematocrit 47.9 % (37-47); Hemoglobin 14.6 g/dL (12.0-15.0); Lymphocyte # 1.25 X10^3/ul (0.83-4.51); Lymphocyte % 17.5 % (19-41); Mean Corp Hgb Conc 30.5 g/dL (32-36); Mean Corpuscular Hgb 27.7 pg (27.0-32.0); Mean Corpuscular Volume 90.7 fL (81-99); Mean Platelet Vol. 9.5 fl (6.2-12.0); Monocyte# 0.22 X10^3/uL; Monocyte% 3.1 % (0-10); NRBC Flagged by Analyzer 0 % (0-5); Neutrophil # 5.67 X10^3/uL (2.7-7.7); Neutrophil % 79.1 % (47-70); Platelet Count 157 K/mm3 (150-450); RBC Distribution Width CV 14.5 % (11.6-14.6); RBC Distribution Width SD 49.1 fl (35.1-43.9); Red Blood Count 5.28 M/mm3 (4.2-5.4); White Blood Count 7.2 K/mm3 (4.4-11.0)
[2024-06-17 05:48] LABS: Anion Gap 9 (5-15); BUN 46 mg/dL (4-19); BUN/Creat Ratio 31.8 RATIO (10-20); Calcium,Total 8.7 mg/dL (7.6-11.0); Chloride 100 mmol/L (98-108); Creatinine, Serum 1.46 mg/dL (0.70-1.20); EST Glomerular Filtration Rate 36 (>60); Estimated Creatinine Clearance 51.57 ml/min (50-250); Glucose 173 mg/dL (70-99); Potassium 3.4 mmol/L (3.3-5.1); Sodium Level 140 mmol/L (133-145)
[2024-06-17] MEDS: Nitroglycerin Oint 1 INCH PACKET TD ×3 (06:28→21:34)
[2024-06-17] MEDS: Methylprednisolone Sod Succ 40 MG/ML VIAL IV ×3 (06:28→21:34)
[2024-06-17] MEDS: Levothyroxine 100 MCG Tablet PO (06:28)
[2024-06-17] MEDS: 0.9% Saline Lock 10 ML Syringe IV ×3 (06:28→23:42)
[2024-06-17] MEDS: Insulin Lispro 100 UNIT/ML INSULN.PEN SC ×3 (06:29→21:34)
[2024-06-17 06:54] LABS: Bedside Glucose 162 mg/dL (74-106)
[2024-06-17] MEDS: Ipratropium/Albuterol Sulfate 3 ML AMPUL.NEB INHALATION ×3 (06:58→19:43)
[2024-06-17] MEDS: Carvedilol 6.25 MG Tablet PO ×2 (09:06→17:23)
[2024-06-17] MEDS: Enoxaparin 40 MG/0.4 ML Syringe SC ×2 (09:06→21:34)
[2024-06-17] MEDS: Furosemide 40 MG/4 ML Vial IV (09:06)
[2024-06-17] MEDS: Aspirin E.C. 81 MG Tablet PO (09:07)
[2024-06-17] MEDS: Loratadine 10 MG Tablet PO (09:07)
[2024-06-17] MEDS: Docusate Sodium 100 MG Capsule 200 MG PO (09:07)
[2024-06-17] MEDS: Menthol/Lanolin/Calamine/Znox 113 GM Tube 1 APPLIC TOPICAL ×2 (09:07→21:32)
[2024-06-17] MEDS: guaiFENesin/D-Methorphan TAB.SR.12H 2 TABLET PO ×2 (09:08→21:34)
[2024-06-17] MEDS: Nystatin Powder 15gm Bottle 1 APPLIC TOPICAL ×2 (09:09→21:32)
[2024-06-17] MEDS: Pantoprazole Sodium 40 MG Tablet PO (09:09)
[2024-06-17] MEDS: Ceftriaxone 1 GM/50 ML BAG IV (09:17)
--- NOTE | 2024-06-17 09:19 | CON.PCM_ITS ---
Assessment & Plan Assessment/Plan (1) Contusion of right great toe without damage to nail, initial encounter: PLAN: Exam performed. Radiographs were ordered and taken for the right foot, radiologist read osteomyelitis due to inability to visualize second and third toe. 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 Patient has no breaks or openings in the skin or any signs of acute or chronic infection to the right second and third toes. At this time I have very little to no concern for osteomyelitis of the right foot, believe this is a simple contusion right foot. Patient is nonambulatory and is having minimal pain. The site should heal on its own; therefore, I recommend observation and conservative treatment HPI Consult Data Date of Consult: 06/17/24 HPI Narrative HPI Narrative: TOD HUNT, is a 78 F who presents Contusion second third toes right foot. Patient is morbidly obese advancing age and nonambulatory. Patient reports that when she was being transported to the hospital via EMS bumped her right foot toes and that she bruises easily and suffered contusion of the right foot. No other complaints. Patient has no pain to that site or gross deformation. [facility] Medical History (Updated 06/17/24 @ 09:[address] Sarabjit Dubois, VINAY) CKD (chronic kidney disease), stage III Hypothyroidism Allergic rhinitis GERD (gastroesophageal reflux disease) Obstructive sleep apnea Hyperlipidemia Hypertension Type 2 diabetes mellitus Morbid obesity Home Medications ?Medication ?Instructions ?Recorded ?Last Taken ?Type amlodipine 5 mg tablet 5 mg PO DAILY blood pressure 05/12/16 05/12/16 08:00 History atorvastatin 20 mg tablet 20 mg PO QHS cholesterol 03/3005/11/16 22:00 History fexofenadine 180 mg tablet 180 mg PO DAILY allergies 0 05/12/16 05/12/16 08:00 History hydrocortisone 2.5 % topical cream 1 applicatio topica l BID rash 05/12/16 Unknown History insulin glargine 100 unit/mL (3 50 units subcut QHS di abetes 05/12/16 05/11/16 22:00 History mL) subcutaneous pen (Lantus Solostar U-100 Insulin) levothyroxine 100 mcg tablet 100 mcg PO DAILY thyroid 05/12/16 05/12/16 06:00 History losartan 100 1 tab PO DAILY blood pressur e 05/12/16 05/12/16 08:00 History mg-hydrochlorothiazide 25 mg tablet (Hyzaar) metformin 500 mg 24 hr 1,000 mg PO BIDAC diabetes 0 05/12/16 05/12/16 08:00 History tablet,extended release (gastric retention) metoprolol tartrate 50 mg tablet 50 mg PO BID blood pr essure 05/12/16 05/12/16 08:00 History potassium chloride 10 mEq 10 meq PO BID supplement 03/3005/12/16 08:00 History tablet,extended release(part/cryst) insulin aspart U-100 100 unit/mL 0 units subcut ACHS 0 05/14/16 Unknown Rx (3 mL) subcutaneous pen (Novolog FlexPen U-100 Insulin aspart) magnesium oxide 400 mg (241.3 mg 400 mg PO BID supplem ent #60 05/14/16 Unknown Rx magnesium) tablet TABLETS nystatin 100,000 unit/gram topical 1 applic topical BI D yeast 05/14/16 Unknown Rx powder (Nyamyc) oxycodone 5 mg tablet 5 mg PO Q4H PRN PRN Moderate Pain 05/14/16 Unknown Rx (pain scale 4-5) ##20 docusate sodium 100 mg capsule 200 mg PO BID stool sof tner 06/16/24 Unknown History pantoprazole 40 mg tablet,delayed 40 mg PO DAILY reflu x 06/16/24 Unknown History release Allergy/AdvReac Type Severity Reaction Status Date / Time lisinopril Allergy Unknown Verified 05/12/16 17:40 pollen extracts Allergy Itching Verified 05/12/16 17:40 Family History (Updated 06/13/24 @ 22:[address] Estela Staton MD) Mother Diabetes Heart disease Hypertension Father Diabetes Cancer Heart disease Alzheimer dementia Surgical History (Updated 06/13/24 @ 22:[address] Estela Staton MD) History of ankle surgery S/P cholecystectomy Social History household members: spouse Smoking Status: Never smoker alcohol intake: never substance use type: does not use Physical Exam Narrative Vascular: Dorsalis pedis posterior tibial pulses palpable 2 out of 4 bilateral lower extremity compartments. +2 pitting edema noted to bilateral legs and ankles. Neurologic: Light touch protective sensation intact to bilateral feet. Dermatologic: Ecchymosis noted to the second and third toe, markedly increased of third toe right foot. No openings to the skin or epidermis noted. Musculoskeletal: No obvious deformation and right second third toe, mild tenderness palpation of the toes and interphalangeal joints. No sign DVT bilaterally. Lab / Micro Data 06/17/24 04:03 06/17/24 04:03 Labs: Laboratory Results - last 24 hr 06/16/24 12:20: POC Glucose 223 H 06/16/24 17:10: POC Glucose 202 H 06/16/24 21:05: POC Glucose 203 H 06/17/24 04:03: WBC 7.2, RBC 5.28, Hgb 14.6, Hct 47.9 H, MCV 90.7, MCH 27.7, M CHC 30.5 L, RDW Std Deviation 49.1 H, RDW Coeff of Ryan 14.5, Plt Count 157, MPV 9.5, Immature Gran % (Auto) 0.300, Neut % (Auto) 79.1 H, Lymph % (Auto) 17.5 L, Carbon % (Auto) 3.1, Eos % (Auto) 0.0, Baso % (Auto) 0.0, Absolute Neuts (auto) 5.7, Absolute Lymphs (auto) 1.25, Nucleated RBC % 0, Sodium 140, Potassium 3.4, Chloride 100, Carbon Dioxide 31.0, Anion Gap 9, BUN 46 H, Creatinine 1.46 H, Estim Creat Clear Calc 51.57, Est GFR (MDRD) Non-Af 36 L, BUN/Creatinine Ratio 31.8 H, Glucose 173 H, Calcium 8.7 06/17/24 06:27: POC Glucose 162 H Micro: Microbiology 06/14/24 22:29 Sputum, Expectorated/Coughed Gram Stain - Final 06/14/24 22:29 Sputum, Expectorated/Coughed Respiratory Culture - Preliminary Appears to be normal respiratory hannah. Further studies to follow. 06/13/24 19:40 Blood Culture (Wb) - Right Wrist Blood Culture - Preliminary No growth in 48 hours. 06/13/24 19:40 Blood Culture (Wb) - Chest Blood Culture - Preliminary No growth in 48 hours. Imaging Radiology Impression Foot X-Ray 06/16/24 10:55 IMPRESSION: Findings are worrisome for osteomyelitis of the 2nd to the 5th toe. Reading [facility]
[2024-06-17 11:54] LABS: Bedside Glucose 207 mg/dL (74-106)
--- NOTE | 2024-06-17 12:54 | PCM.PN.HOSP ---
Reason for Visit Reason for Visit: Diagnoses Acute respiratory failure with hypoxia (06/13/24) Contusion of right great toe without damage to nail, initial encounter (06/13/24) Objective Data Objective Data Vital Signs: Vital Signs Temp Pulse Resp BP Pulse Ox O2 Del Method O2 Flow Rate 97.7 F L 69 16 161/78 H 96 Nasal Cannula 2 06/17/24 08:55 06/17/24 08:55 06/17/24 08:55 06/17/24 08:55 06/17/24 08:55 06/17/24 09:30 06/17/24 09:30 FiO2 30 06/14/24 03:15 Oxygen Flow Rate (L/min) 2 Oxygen Delivery Method Nasal Cannula Weight: 389 lb 12.436 oz Body Mass Index (BMI) 62.8 Intake & Output: Intake and Output for Last 24 Hours 06/15/24 06/16/24 06/17/24 23:59 23:59 23:59 Intake Total 1025 / 1025 955 / 1075 270 / 270 Output Total 1725 / 1725 1575 / 1925 1100 / 1100 Balance -700 / -700 -620 / -850 -830 / -830 Lab / Micro Data 06/17/24 04:03 06/17/24 04:03 Labs: Laboratory Results - last 24 hr 06/16/24 17:10: POC Glucose 202 H 06/16/24 21:05: POC Glucose 203 H 06/17/24 04:03: WBC 7.2, RBC 5.28, Hgb 14.6, Hct 47.9 H, MCV 90.7, MCH 27.7, MCHC 30.5 L, RDW Std Deviation 49.1 H, RDW Coeff of Ryan 14.5, Plt Count 157, MPV 9.5, Immature Gran % (Auto) 0.300, Neut % (Auto) 79.1 H, Lymph % (Auto) 17.5 L, [place] % (Auto) 3.1, Eos % (Auto) 0.0, Baso % (Auto) 0.0, Absolute Neuts (auto) 5.7, Absolute Lymphs (auto) 1.25, Nucleated RBC % 0, Sodium 140, Potassium 3.4, Chloride 100, Carbon Dioxide 31.0, Anion Gap 9, BUN 46 H, Creatinine 1.46 H, Estim Creat Clear Calc 51.57, Est GFR (MDRD) Non-Af 36 L, BUN/Creatinine Ratio 31.8 H, Glucose 173 H, Calcium 8.7 06/17/24 06:27: POC Glucose 162 H 06/17/24 11:32: POC Glucose 207 H Micro: Microbiology 06/14/24 22:29 Sputum, Expectorated/Coughed Gram Stain - Final 06/14/24 22:29 Sputum, Expectorated/Coughed Respiratory Culture - Final Mixed normal respiratory hannah. No Streptococcus pneumoniae, beta-hemolytic Streptococcus or Staphylococcus aureus isolated. 06/13/24 19:40 Blood Culture (Wb) - Right Wrist Blood Culture - Preliminary No growth in 48 hours. 06/13/24 19:40 Blood Culture (Wb) - Chest Blood Culture - Preliminary No growth in 48 hours. 06/14/24 02:45 Urine Catheter - Reese Legionella Antigen - Final 06/14/24 02:45 Urine Catheter - Reese Streptococcus pneumoniae Antigen (M - Final 06/13/24 22:55 Mucosa - Nasopharyngeal Respiratory Panel (PCR) - Final 06/13/24 19:55 Mucosa - Nose SARS-CoV-2, Influenza & RSV (PCR) - Final Physical Exam Narrative Seen and examined No acute issues. Patient has some home-going need including DME therefore could not be discharged today. Constipation did not move bowels since admission even on laxatives Shortness of breath is better. No chest pain. On BiPAP at night and naps. Patient was admitted with shortness of breath. Earlier her BiPAP was not working for last 3 to 4 weeks. No fever. Physical exam General: Alert, Oriented x3, Cooperative, super morbid obesity: BMI 63.3 kg/m?, limited exam HEENT: Short and wide neck atraumatic, PERRLA, EOMI, Normocephalic Oral: Deep oropharyngeal strength not visualized Neck: Supple, No JVD, Negative Carotid Bruits Chest wall/Lungs: Air entry diminished in bilateral lung bases. Cannot sit up because of morbid body habitus. No crepitations on anterior lung auscultation. Cardiovascular: Low intensity heart sounds Rally from morbid obesity. No M/G/R Abdomen: Bowel Sounds Present, Soft, Non Tender, Non-Distended : No dysuria. No renal angle tenderness. No suprapubic tenderness. Extremities: Bilateral pedal edema 2+ edema, Capillary Refill Less than 3 Seconds Skin: right toe bruise, bluish discoloration since admission, getting better. Musculoskeletal: No Tenderness to Palpation of Joints or Extremities ROM decreased. Neurological: Cranial nerves II-XII grossly intact, DTR 2+/4. No acute focal neurological deficit. Psych/Mental Status: Flat affect Assessment & Plan Assessment/Plan (1) Acute hypoxic respiratory failure: PLAN: Plan The patient is an 78 y/o F was brought to ED by EMS for shortness of breath and hypoxia, pulse ox 70% on room air for 1 day. Not on oxygen at baseline. Patient had slight nonproductive cough, mild congestion and rhinorrhea. No fever #1. Acute Hypoxic Respiratory Failure secondary to Possible RLL Infilrtrate/Community Acquired PNA with Acute Bronchospasms in addition to Possible Acute Decompensated HF unclear type and classification: Patient denies chest pain. Triple PCR for SARS-CoV-2, flu and RSV are negative. Respiratory panel and urinary antigens are negative. Leukocytosis resolved. Chest x-ray reviewed and shows unturned ventilation, cardiomegaly suggestive of pulmonary congestion/edema. ABG 7.30/60/70s on BiPAP 20/10, RR 12 at 30% FiO2. Bicarb reported in BMP since long as it suddenly dropped from 26.5-19.3 but in ABGs about 31-32. Therefore mainly seems chronic respiratory acidosis Patient started on IV ceftriaxone and azithromycin. Empirically on IV Solu-Medrol. Patient is being managed on scheduled bronchodilator, IV Solu-Medrol, Mucinex, incentive spirometry and Pep. 06/15: Repeat chest x-ray portable done with suboptimal images. Shows improvement in lung congestion but underventilated. Continue antibiotics and above treatment. 5: Shortness of breath is better #2. QUYNH on chronic Kidney Disease Stage IIIA: Admission BUN/Cr 28/1.14, GFR 49, baseline renal function unfortunately remote with last noted 11/22/2016 creatinine 0.98, 06/14: BUN/creatinine 32/1.41. HCTZ discontinued. Losartan dose decreased to 50 mg daily. Monitor kidney function. 06/15: Creatinine jumped up from 1.14-1.54 in 48 hours therefore meets criteria for QUYNH. Hold furosemide and losartan and follow-up kidney function. 06/17: Creatinine decreasing 1.46. Furosemide dose decreased to 40 mg IV daily. Medically patient is stable for discharge but has multiple home-going needs due to morbid obesity including Beth lift for transfer, DME needs. Patient has BiPAP. Oxygen paper signed. May be discharged tomorrow on Tuesday Bluish discoloration, bruise right toes present since admission: X-ray of the right foot was done reported as Lysis of the middle and distal phalanx of the 3rd digit soft tissue swelling about 2nd, 3rd, 4th consistent lysis of the distal phalanx of the 5th digit. Findings are worrisome for osteomyelitis of second to the fifth toe nuisance wildlife control operator consulted for that. The nuisance wildlife control operator also reviewed the x-ray and thinks the x-ray reporting is not correct/wrong. Clinically, I do not suspect 06/17: Cloth Printer consulted and discussed with Dr. Dubois. He also does not think clinically osteomyelitis. Patient has osteoporosis and diffuse demineralization of the toe bones and digital contractures therefore it appears bone lysis. #3. Hypertension: Continue home regimen including metoprolol, amlodipine, losartan, hydrochlorothiazide, pulse dose with IV lasix as noted above, PRN hydralazine. 4/3:HCTZ discontinued. Losartan dose decreased to 50 mg daily. 4/5: Patient blood pressure is better. Constipation: Dulcolax suppository ordered and as per nursing staff, patient had BM. #4. Hyperlipidemia: continue patient statin therapy. FLP LDL 56, HDL 35. #5. Hypothyroidism: continue patient home levothyroxine regimen. TSH/FT4 1.690 and 1.30 respectively; normal. #6. Diabetes mellitus type II: Hold oral home regimen, continue home insulin regimen, ADA diet, accu checks w/ ISS. #7. Morbid Obesity/significantly chronically limited mobility normally using predominantly wheelchair: Weight loss and lifestyle changes encouraged, nutrition consulted. #8. Allergic rhinitis: continue patient home fexofenadine regimen. #9. GERD: continue patient on PPI. #10. JAYA, hypoventilation syndrome: Complicates presentation, normally using CPAP nightly, given current presentation will continue with BiPAP. Transition once appropriate. #11. DVT prophylaxis: Chemoprophylactic dosing of Lovenox pending duplex ultrasound. Given inability to fit in the scanner at this point pending bilateral lower extremity duplex ultrasounds and if there is no obvious clot in her legs then lower suspicion for anything in her lungs but if any concerning findings in the legs then certainly would transition to heparin drip at that point. #12. CODE status: Patient NICOLE is her daughter and living will is currently in place. Discussed CODE status at length including difference between FULL code, DNR-CCA and DNR-CC status. Following discussions about the differences in these status, requested Full Code status. Charges/Coding Visit Charges Inpatient E&M: 09590 Subs Hosp L2
[2024-06-17] MEDS: Polyethylene Glycol 3350 17 GM PACKET PO (14:31)
[2024-06-17 17:44] LABS: Bedside Glucose 127 mg/dL (74-106)
[2024-06-17] MEDS: Acetaminophen 325 MG Tablet 650 MG PO (21:33)
[2024-06-17] MEDS: oxyCODONE 5 MG Tablet PO (21:33)
[2024-06-17] MEDS: Montelukast 10 MG Tablet PO (21:34)
[2024-06-17] MEDS: Insulin Glargine-YFGN 100 UNIT/ML Pen 50 UNIT SC (21:35)
[2024-06-17] MEDS: Atorvastatin Calcium 20 MG Tablet PO (21:35)
[2024-06-17] MEDS: Senna/Docusate Sodium 1 Tablet 2 TABLET PO (21:37)
[2024-06-17 22:06] LABS: Bedside Glucose 206 mg/dL (74-106)
--- NOTE | 2024-06-17 23:22 | EKG12_ITS ---
Test Reason : RYTHMN CHANGE Blood Pressure : */* mmHG Vent. Rate : 142 BPM Atrial Rate : * BPM P-R Int : * ms QRS Dur : 108 ms QT Int : 302 ms P-R-T Axes : * -48 112 degrees QTcB Int : 464 ms Critical Test Result: High HR Atrial fibrillation with rapid ventricular response Left axis deviation Nonspecific ST and T wave abnormality Abnormal ECG When compared with ECG of 13-Jun-2024 19:57, Significant changes have occurred Confirmed by LAUREN ROSS, MARISOL ([id number]), editor continuity and script BETHEL PALMA ([id number]) on 06/18/2024 9:17:53 AM Referred By: MICHAEL Confirmed By: MARISOL AGUILAR MD
--- NOTE | 2024-06-17 23:30 | PCM.HOSP.N ---
Hospitalist Note Patient with onset of asymptomatic tachycardia, EKG with some concern for new onset atrial fibrillation. Recent evaluation ongoing including mag 1.7 on 06/15/24, TSH 1.690 06/14/2024. 06/14/24 echocardiogram with normal LV size, LV systolic function normal, LVEF 60%. Requesting Cardizem 10 mg IV x 1 to slow down and potentially repeat EKG to ensure in A-fib.
[2024-06-17] MEDS: dilTIAZem 25 MG/5 ML Vial 10 MG IV BOLUS (23:42)
[2024-06-18] VITALS (27 sets, daily range): BP systolic 91–162; BP diastolic 56–106; PULSE 58–142; RESP 13–22; TEMP 36.6–36.8; O2SAT 88–96; BMI 63.6
[2024-06-18] MEDS: Amiodarone 150 MG in Dextrose 5%-Water (100mL Bag) 100 ML 600 MG IV BOLUS (00:50)
[2024-06-18] MEDS: Amiodarone 360 MG in Dextrose 5% Viaflo Bag 192.8 ML 16.7 MG CONT INF (01:01)
--- NOTE | 2024-06-18 01:30 | NURSING ---
Removed nitropaste from patient's chest at this time per orders due to SBP <100
--- NOTE | 2024-06-18 05:37 | CPS ---
RN notified SAW SETTER of increasing oxygen bled into CPAP due to low saturations
--- NOTE | 2024-06-18 05:38 | CPS ---
ELECTROMAGNET CRANE OPERATOR placed a fullface mask on patient due to oral leak, Oxygen was weaned down to 4L
[2024-06-18] MEDS: Insulin Lispro 100 UNIT/ML INSULN.PEN SC ×4 (06:32→21:55)
[2024-06-18] MEDS: 0.9% Saline Lock 10 ML Syringe IV ×2 (06:33→08:26)
[2024-06-18] MEDS: Methylprednisolone Sod Succ 40 MG/ML VIAL IV ×3 (06:33→22:04)
[2024-06-18] MEDS: Levothyroxine 100 MCG Tablet PO (06:33)
[2024-06-18 06:41] LABS: Absolute Lymphocyte Count 1.36 X10^3/uL (0.83-4.51); Absolute Neutrophil Count 6.7 X10^3/uL (2.0-7.7); Basophil# 0.01 X10^3/uL; Basophil% 0.1 % (0-1); Hematocrit 48.2 % (37-47); Hemoglobin 14.8 g/dL (12.0-15.0); Lymphocyte # 1.36 X10^3/ul (0.83-4.51); Lymphocyte % 16.2 % (19-41); Mean Corp Hgb Conc 30.7 g/dL (32-36); Mean Corpuscular Hgb 27.7 pg (27.0-32.0); Mean Corpuscular Volume 90.1 fL (81-99); Mean Platelet Vol. 9.7 fl (6.2-12.0); Monocyte# 0.33 X10^3/uL; Monocyte% 3.9 % (0-10); NRBC Flagged by Analyzer 0 % (0-5); Neutrophil # 6.66 X10^3/uL (2.7-7.7); Neutrophil % 79.4 % (47-70); Platelet Count 158 K/mm3 (150-450); RBC Distribution Width CV 14.5 % (11.6-14.6); RBC Distribution Width SD 47.8 fl (35.1-43.9); Red Blood Count 5.35 M/mm3 (4.2-5.4); White Blood Count 8.4 K/mm3 (4.4-11.0)
[2024-06-18 06:56] LABS: Bedside Glucose 179 mg/dL (74-106)
[2024-06-18] MEDS: Ipratropium/Albuterol Sulfate 3 ML AMPUL.NEB INHALATION ×2 (06:57→19:54)
--- NOTE | 2024-06-18 07:22 | EKG12_ITS ---
Test Reason : AF Blood Pressure : */* mmHG Vent. Rate : 60 BPM Atrial Rate : 60 BPM P-R Int : 172 ms QRS Dur : 112 ms QT Int : 762 ms P-R-T Axes : 49 -29 34 degrees QTcB Int : 762 ms Critical Test Result: Long QTc Sinus rhythm with Premature atrial complexes Nonspecific ST and T wave abnormality Abnormal ECG When compared with ECG of 17-Jun-2024 23:22, MANUAL COMPARISON REQUIRED DATA IS UNCONFIRMED Confirmed by LAUREN ROSS, MARISOL ([id number]), editor school photograph SHRUTI QUINTERO ([id number]) on 06/18/2024 2:02:00 PM Referred By: ARASH Confirmed By: MARISOL AGUILAR MD
[2024-06-18 07:23] LABS: Anion Gap 10 (5-15); BUN 48 mg/dL (4-19); BUN/Creat Ratio 32.9 RATIO (10-20); Calcium,Total 8.6 mg/dL (7.6-11.0); Chloride 100 mmol/L (98-108); Creatinine, Serum 1.47 mg/dL (0.70-1.20); EST Glomerular Filtration Rate 36 (>60); Estimated Creatinine Clearance 51.63 ml/min (50-250); Glucose 193 mg/dL (70-99); Potassium 3.4 mmol/L (3.3-5.1); Sodium Level 141 mmol/L (133-145)
[2024-06-18] MEDS: Senna/Docusate Sodium 1 Tablet 2 TABLET PO (08:25)
[2024-06-18] MEDS: Loratadine 10 MG Tablet PO (08:25)
[2024-06-18] MEDS: Carvedilol 6.25 MG Tablet PO (08:25)
[2024-06-18] MEDS: guaiFENesin/D-Methorphan TAB.SR.12H 2 TABLET PO ×2 (08:26→22:03)
[2024-06-18] MEDS: Polyethylene Glycol 3350 17 GM PACKET PO (08:26)
[2024-06-18] MEDS: Ceftriaxone 1 GM/50 ML BAG IV (08:26)
[2024-06-18] MEDS: Pantoprazole Sodium 40 MG Tablet PO (08:26)
[2024-06-18] MEDS: Aspirin E.C. 81 MG Tablet PO (08:26)
[2024-06-18] MEDS: Menthol/Lanolin/Calamine/Znox 113 GM Tube 1 APPLIC TOPICAL ×2 (08:31→21:53)
[2024-06-18] MEDS: APIXABAN 5 MG TABLET PO ×2 (08:31→21:56)
[2024-06-18] MEDS: Nystatin Powder 15gm Bottle 1 APPLIC TOPICAL ×4 (08:32→22:04)
[2024-06-18] MEDS: Furosemide 40 MG Tablet PO (09:37)
[2024-06-18 11:46] LABS: Bedside Glucose 205 mg/dL (74-106)
--- NOTE | 2024-06-18 14:03 | CASEMGMT ---
SARA spoke with Radha and patient's bed will be delivered tomorrow between 930 am and 10 am. SARA spoke with physician letting her know about the delivery of the bed. Patient will be discharged home tomorrow. Carolina GRIFFIN
--- NOTE | 2024-06-18 14:18 | WOUNDNOTE ---
wound photo: abdomen
[2024-06-18 16:44] LABS: Bedside Glucose 215 mg/dL (74-106)
--- NOTE | 2024-06-18 17:27 | PCM.PN.HOSP ---
Reason for Visit Reason for Visit: Diagnoses Acute respiratory failure with hypoxia (06/13/24) Contusion of right great toe without damage to nail, initial encounter (06/13/24) Subjective Subjective Overnight patient went into A-fib and now is back in sinus rhythm, reports that this makes her anxious and that she in general is just feeling very anxious and occasionally will feel confused, discussed that patient is on steroids and can cause some of the symptoms she is describing and she agrees. Breathing overall improved, still on some oxygen. She expressed concern about going home before her new hospital bed arrives given she is bedbound and her current bed is broken and she does not feel it is safe for her to be at home, was informed that her bed will be delivered tomorrow morning so current plan is for discharge home tomorrow Objective Data Objective Data Vital Signs: Vital Signs Temp Pulse Resp BP Pulse Ox O2 Del Method O2 Flow Rate 97.9 F 71 21 H 102/87 H 95 Nasal Cannula 2 06/18/24 09:36 06/18/24 09:36 06/18/24 09:36 06/18/24 09:36 06/18/24 09:36 06/18/24 13:44 06/18/24 13:44 FiO2 30 06/14/24 03:15 Oxygen Flow Rate (L/min) 2 Oxygen Delivery Method Nasal Cannula Weight: 178.9 kg Body Mass Index (BMI) 63.6 Intake & Output: Intake and Output for Last 24 Hours 06/16/24 06/17/24 06/18/24 23:59 23:59 23:59 Intake Total 955 / 1075 720 / 840 1135.21 / 1135.21 Output Total 1575 / 1925 1750 / 2000 1100 / 1100 Balance -620 / -850 -1030 / -1160 35.21 / 35.21 Lab / Micro Data 06/18/24 05:20 06/18/24 05:20 Labs: Laboratory Results - last 24 hr 06/17/24 17:21: POC Glucose 127 H 06/17/24 21:29: POC Glucose 206 H 06/18/24 05:20: WBC 8.4, RBC 5.35, Hgb 14.8, Hct 48.2 H, MCV 90.1, MCH 27.7, MCHC 30.7 L, RDW Std Deviation 47.8 H, RDW Coeff of Ryan 14.5, Plt Count 158, MPV 9.7, Immature Gran % (Auto) 0.400, Neut % (Auto) 79.4 H, Lymph % (Auto) 16.2 L, [place] % (Auto) 3.9, Eos % (Auto) 0.0, Baso % (Auto) 0.1, Absolute Neuts (auto) 6.7, Absolute Lymphs (auto) 1.36, Nucleated RBC % 0, Sodium 141, Potassium 3.4, Chloride 100, Carbon Dioxide 31.0, Anion Gap 10, BUN 48 H, Creatinine 1.47 H, Estim Creat Clear Calc 51.63, Est GFR (MDRD) Non-Af 36 L, BUN/Creatinine Ratio 32.9 H, Glucose 193 H, Calcium 8.6 06/18/24 06:32: POC Glucose 179 H 06/18/24 11:27: POC Glucose 205 H 06/18/24 16:24: POC Glucose 215 H Micro: Microbiology 06/14/24 22:29 Sputum, Expectorated/Coughed Gram Stain - Final 06/14/24 22:29 Sputum, Expectorated/Coughed Respiratory Culture - Final Mixed normal respiratory hannah. No Streptococcus pneumoniae, beta-hemolytic Streptococcus or Staphylococcus aureus isolated. 06/13/24 19:40 Blood Culture (Wb) - Right Wrist Blood Culture - Preliminary No growth in 48 hours. 06/13/24 19:40 Blood Culture (Wb) - Chest Blood Culture - Preliminary No growth in 48 hours. 06/14/24 02:45 Urine Catheter - Reese Legionella Antigen - Final 06/14/24 02:45 Urine Catheter - Reese Streptococcus pneumoniae Antigen (M - Final 06/13/24 22:55 Mucosa - Nasopharyngeal Respiratory Panel (PCR) - Final 06/13/24 19:55 Mucosa - Nose SARS-CoV-2, Influenza & RSV (PCR) - Final Physical Exam Narrative General: Alert, answers questions appropriately, no apparent distress HEENT: Atraumatic, normocephalic Eyes: Anicteric, normal conjunctiva, extraocular movements grossly intact Neck: Supple Respiratory: Diminished at the bases but suspect a large portion of this is due to body habitus, normal respiratory effort Cardiovascular: Regular rate and rhythm GI: Soft, nontender, nondistended Extremities: Slight peripheral edema Musculoskeletal: Moving all extremities Neuro: No overt focal neurological deficits Skin: No rashes appreciated Psych: Cooperative Assessment & Plan Assessment/Plan (1) Acute hypoxic respiratory failure: PLAN: Plan # Acute hypoxic respiratory failure secondary to community-acquired pneumonia and fluid overload - Initial chest x-ray was congestion/edema versus infection and repeat 2 days later did appear to have fluid overload - Patient was placed on antibiotics in addition to steroids for concern for component of bronchospasm and Lasix - De-escalating patient's regimen - Still requiring oxygen with her CPAP, this a.m. is on 2 L nasal cannula with pulse ox of 95 to 96% - Will plan on discharging home with oxygen - Lasix changed to p.o. - Will likely plan for discharge with 5 more days of prednisone # New onset A-fib with RVR -patient put on amnio drip overnight - Patient has since converted - Patient had multiple medications adjusted, will restart home metoprolol, discussed anticoagulation the patient is in agreement, she was started on Eliquis - Recent TSH within normal limits - An echo 06/14/2024 with EF of 60% and normal LV size - May benefit from having a repeat sleep study on outpatient basis to verify any adjustments need down to her settings on her CPAP #JAYA -Continue home CPAP with O2 bleed #Type 2 diabetes mellitus -Glucose checks and sliding scale insulin - Continue long-acting insulin #Hypothyroidism -Continue Synthroid #GERD -Continue PPI #DVT ppx: Started on Eliquis Savanna Suero MD Charges/Coding Visit Charges Inpatient E&M: 22980 Subs Hosp L2
[2024-06-18] MEDS: Montelukast 10 MG Tablet PO (21:56)
[2024-06-18] MEDS: Insulin Glargine-YFGN 100 UNIT/ML Pen 50 UNIT SC (21:56)
[2024-06-18] MEDS: Atorvastatin Calcium 20 MG Tablet PO (21:57)
[2024-06-18] MEDS: Metoprolol Tartrate 50 MG Tablet PO (21:57)
[2024-06-18 23:05] LABS: Bedside Glucose 229 mg/dL (74-106)
[2024-06-19] VITALS (15 sets, daily range): BP systolic 141–158; BP diastolic 65–94; PULSE 58–70; RESP 16–24; TEMP 36.5–36.8; O2SAT 88–98; BMI 62.3
--- NOTE | 2024-06-19 01:04 | CPS ---
Pt is on her own cpap unit. It ramps for 15 min starts at 4 then ramps up to 12 cmHoH
--- NOTE | 2024-06-19 01:22 | CPS ---
pt desatted to 78% spo2 on her home cpap unit with 1L O2 bled in. spo2 was ok till pt fell asleep. pt needs a retitration for cpap tom. RT increased to 3L and started a trending pulse ox to prove pt needs oxygen at the very least to get her to new titration for her cpap
--- NOTE | 2024-06-19 03:44 | CPS ---
Pt on home unit.
[2024-06-19] MEDS: Levothyroxine 100 MCG Tablet PO (06:16)
[2024-06-19] MEDS: Insulin Lispro 100 UNIT/ML INSULN.PEN SC ×3 (06:16→16:29)
[2024-06-19] MEDS: Methylprednisolone Sod Succ 40 MG/ML VIAL IV ×2 (06:42→14:22)
[2024-06-19 06:48] LABS: Bedside Glucose 176 mg/dL (74-106)
[2024-06-19] MEDS: Ipratropium/Albuterol Sulfate 3 ML AMPUL.NEB INHALATION ×2 (07:31→12:49)
[2024-06-19 07:34] LABS: Hematocrit 51.3 % (37-47); Mean Corp Hgb Conc 31.2 g/dL (32-36); Mean Corpuscular Volume 89.8 fL (81-99); Mean Platelet Vol. 9.3 fl (6.2-12.0); Platelet Count 145 K/mm3 (150-450); RBC Distribution Width CV 14.3 % (11.6-14.6); Red Blood Count 5.71 M/mm3 (4.2-5.4); White Blood Count 9.7 K/mm3 (4.4-11.0)
[2024-06-19] MEDS: Aspirin E.C. 81 MG Tablet PO (08:47)
[2024-06-19 09:17] LABS: Magnesium 1.7 mg/dL (1.5-2.2)
[2024-06-19 09:37] LABS: Anion Gap 10 (5-15); BUN 47 mg/dL (4-19); BUN/Creat Ratio 36.4 RATIO (10-20); Carbon Dioxide 31.7 mmol/L (21.0-32.0); Chloride 99 mmol/L (98-108); Creatinine, Serum 1.28 mg/dL (0.70-1.20); EST Glomerular Filtration Rate 42 (>60); Estimated Creatinine Clearance 58.45 ml/min (50-250); Glucose 189 mg/dL (70-99); Potassium 3.5 mmol/L (3.3-5.1); Sodium Level 141 mmol/L (133-145)
[2024-06-19 11:06] LABS: Bedside Glucose 233 mg/dL (74-106)
[2024-06-19] MEDS: Menthol/Lanolin/Calamine/Znox 113 GM Tube 1 APPLIC TOPICAL (11:23)
[2024-06-19] MEDS: Metoprolol Tartrate 50 MG Tablet PO (11:24)
[2024-06-19] MEDS: Furosemide 40 MG Tablet PO (11:24)
[2024-06-19] MEDS: APIXABAN 5 MG TABLET PO (11:24)
[2024-06-19] MEDS: Loratadine 10 MG Tablet PO (11:24)
[2024-06-19] MEDS: guaiFENesin/D-Methorphan TAB.SR.12H 2 TABLET PO (11:25)
[2024-06-19] MEDS: Nystatin Powder 15gm Bottle 1 APPLIC TOPICAL ×2 (11:26→11:55)
[2024-06-19] MEDS: Pantoprazole Sodium 40 MG Tablet PO (11:27)
[2024-06-19] MEDS: Ceftriaxone 1 GM/50 ML BAG IV (11:38)
[2024-06-19] MEDS: 0.9% Saline Lock 10 ML Syringe IV ×2 (11:40→14:25)
[2024-06-19] MEDS: Magnesium Sulfate 2 GM in Dextrose 5%-Water (100mL Bag) 100 ML IV (11:54)
--- NOTE | 2024-06-19 12:59 | DCINST_ITS ---
Discharge Instructions Diet Discharge Diet: - (DASH diet) DC O2, CPAP, BIPAP needs Home O2 Discharge instructions: Yes Type of respiratory needs?: Oxygen (2) Oxygen frequency: Continuous Continuous oxygen liters per minute: 2 and CPAP CPAP oxygen liters per minute: 2 CPAP instructions: EPAP/CPAP 12 Dressing / Incision Discharge Activity: - (Increase activity as tolerated) Follow Up Care Test Results: Test results from this visit will be discussed in further detail at your follow- up appointment, if applicable. Discharge Plan Admission Admit Date/Time: 06/13/24 21:28 Primary Reason for Your Visit: Shortness of breath Attending Provider: Savanna Suero Primary Care Provider: Socrates Spangler Consulting Providers: Estela Staton; Sarabjit Dubois; Azam Montgomery Instructions Patient Instructions: Pneumonia Community Acquired Additional Instructions / Restrictions: DISCHARGE INSTRUCTIONS PLEASE READ *Please take this with you to your next doctors appointment* - It is advised you take Lasix 40 mg by mouth daily for the next 7 days, once you have completed this resume your losartan?hydrochlorothiazide. -It is advised you follow closely with your primary care physician so they can assess whether you will need to continue Lasix -Please call your primary care provider's office upon discharge to schedule a hospital follow up within 1 week. -Would recommend lab work (BMP) to check your kidney function potassium in 3 to 5 days through your primary care physician's office. Please call their office upon discharge to obtain order for lab work. -You will be discharged on an additional 5 days of prednisone 40 mg -You will be discharged another 2 days of antibiotics, Augmentin, which you will take twice daily - You will need to follow-up closely with your outpatient physician who manages your CPAP so that a new sleep study can be coordinated -You will be discharged on 2 L of home oxygen -You were noted to have an abnormal heart rhythm, atrial fibrillation, during admission, you will continue your metoprolol and Eliquis has been added to your regimen -For any concerning signs or symptoms please call 911 or proceed to the nearest emergency department Discharge Orders/Prescriptions Prescriptions: New Eliquis 5 mg Tablet 5 mg PO BID 30 Days Qty: 60 0RF amoxicillin-pot clavulanate 875-125 mg tablet 1 tab PO BID 2 Days Qty: 4 0RF furosemide 40 mg Tablet 40 mg PO DAILY 7 Days Qty: 7 0RF prednisone 20 mg tablet 40 mg PO DAILY 5 Days Qty: 10 0RF Continued atorvastatin 20 MG tablet 20 mg PO QHS Patient Comments: cholesterol fexofenadine 180 MG tablet 180 mg PO DAILY Patient Comments: allergies amlodipine 5 MG tablet 5 mg PO DAILY Patient Comments: blood pressure levothyroxine 100 MCG tablet 100 mcg PO DAILY Patient Comments: thyroid metoprolol tartrate 50 MG tablet 50 mg PO BID Patient Comments: blood pressure potassium chloride 10 MEQ tablet 10 meq PO BID Patient Comments: supplement metformin 500 MG tablet,ER rozina.retention 24 hr 1,000 mg PO BIDAC insulin glargine [Lantus Solostar U-100 Insulin] 100 UNITS/ML insulin pen 50 units subcut QHS Patient Comments: diabetes hydrocortisone 1 APPLIC cream 1 applicatio topical BID nystatin [Nyamyc] 1 APPLIC bottle 1 applic topical BID 0RF oxycodone 5 MG tablet 5 mg PO Q4H PRN PRN (Reason: Moderate Pain (pain scale 4-5)) Qty: 20 0RF insulin aspart U-100 [Novolog FlexPen U-100 Insulin] 100 UNITS/ML insulin pen 0 units subcut ACHS 0RF magnesium oxide 400 MG tablet 400 mg PO BID Qty: 60 0RF docusate sodium 100 MG capsule 200 mg PO BID pantoprazole 40 mg tablet,delayed release (DR/EC) 40 mg PO DAILY Held losartan-hydrochlorothiazide [Hyzaar] 1 TAB tablet 1 tab PO DAILY Hold Instructions: Resume on 06/27/24. Patient Comments: blood pressure Referrals / Follow Up: Socrates Spangler MD [Primary Care Provider] - Within 1 Week Sarabjit Dubois DPM [Med Staff - Active Staff] - Disposition Disposition (needs filled in before D/C Order can be placed): Home, Self Care
--- NOTE | 2024-06-19 13:11 | DS.PCM_ITS ---
Providers Date of Admission: 06/13/24 Date of Discharge: 06/19/24 Primary Care Physician: Dr. Socrates Spangler MD Consultations 06/14/24 04:46 Consult: Onc/Wound/medical van driver Routine Comment: Reason for Consult:: multiple wounds 06/16/24 12:55 Consult: Podiatry Routine Consulting Provider: Sarabjit Dubois Reason for Consult: x-ray foot reported osteomyelitis of toes. Clinically no OM EMERGENT Consult: No MD Notified: Yes Date Notified: 06/16/24 Time Notified: 12:55 Method of Notification: Verbal Reason For Visit: RESP FAILURE, POSS PNA, POSS HF Diagnosis Discharge Diagnosis (1) Acute hypoxic respiratory failure: Status: Acute Code(s): J96.01 - Plan # Acute respiratory failure secondary to community-acquired pneumonia and fluid overload # New onset A-fib RVR converted back to sinus rhythm # JAYA # Type 2 diabetes mellitus # Hypothyroidism # Morbid obesity Medications at Discharge Home Medications amlodipine 5 mg tablet 5 mg PO DAILY blood pressure 05/12/16 atorvastatin 20 mg tablet 20 mg PO QHS cholesterol 05/12/16 fexofenadine 180 mg tablet 180 mg PO DAILY allergies 05/12/16 hydrocortisone 2.5 % topical cream 1 applicatio topical BID rash 05/12/16 insulin glargine 100 unit/mL (3 mL) subcutaneous pen (Lantus Solostar U-100 Insulin) 50 units subcut QHS diabetes 05/12/16 levothyroxine 100 mcg tablet 100 mcg PO DAILY thyroid 05/12/16 losartan 100 mg-hydrochlorothiazide 25 mg tablet (Hyzaar) 1 tab PO DAILY blood pressure 05/12/16 Held on 06/19/24. Instructions: Resume on 06/27/24. metformin 500 mg 24 hr tablet,extended release (gastric retention) 1,000 mg PO BIDAC diabetes 05/12/16 metoprolol tartrate 50 mg tablet 50 mg PO BID blood pressure 05/12/16 potassium chloride 10 mEq tablet,extended release(part/cryst) 10 meq PO BID supplement 05/12/16 magnesium oxide 400 mg (241.3 mg magnesium) tablet 400 mg PO BID supplement #60 TABLETS 05/14/16 nystatin 100,000 unit/gram topical powder (Nyamyc) 1 applic topical BID yeast 05/14/16 oxycodone 5 mg tablet 5 mg PO Q4H PRN PRN Moderate Pain (pain scale 4-5) ##20 05/14/16 docusate sodium 100 mg capsule 200 mg PO BID stool softner 06/16/24 pantoprazole 40 mg tablet,delayed release 40 mg PO DAILY reflux 06/16/24 amoxicillin 875 mg-potassium clavulanate 125 mg tablet 1 tab PO BID 2 days #4 tabs 06/19/24 apixaban 5 mg tablet (Eliquis) 5 mg PO BID 30 days #60 tabs 06/19/24 furosemide 40 mg tablet 40 mg PO DAILY 7 days #7 tabs 06/19/24 insulin aspart U-100 100 unit/mL (3 mL) subcutaneous pen (Novolog FlexPen U-100 Insulin aspart) 1 sliding scale dose subcut ACHS diabetes 06/19/24 prednisone 20 mg tablet 40 mg (2 x 20 mg) PO DAILY 5 days #10 tabs 06/19/24 Hospital Course Summary of Care Provided Minutes Spent on Discharge: 32 Hospital Course: # Acute respiratory failure secondary to community-acquired pneumonia and fluid overload # New onset A-fib RVR converted back to sinus rhythm # JAYA # Type 2 diabetes mellitus # Hypothyroidism # Morbid obesity 78-year-old female with history as above presented 06/13/2024 with shortness of breath, on arrival to the ED her O2 sat was in the 70s and she was placed on O2 and subsequently BiPAP, she was also noted to have a cough. Chest x-ray revealed right lower lobe infiltrate there is a question of some pulmonary edema as well so patient was given Solu-Medrol, Lasix, and Levaquin and hospitalist contacted for admission. Patient slowly improved with regimen, she did have an echo 07/11/2024 that showed an EF of 60% and normal LV size and did not note any overt failure, did continue to require low amounts of O2 including with her CPAP at bedtime but respiratory status stabilized. Day prior to discharge patient did 1 A-fib with RVR which was new, she converted with amiodarone and remained in sinus rhythm back on her home dose of metoprolol. She started on Eliquis, this was discussed with her. Overall patient with fairly poor prognosis, she is bedbound at baseline but is stable from a respiratory and clinical perspective for discharge from the hospital. Patient was offered to explore half-way placement on discharge but she refused. Discharge was delayed by 1 day as her hospital bed was broken creating barriers to her care and a new bed was delivered the morning of 06/19/2024 allowing for safe discharge later in the day on 06/19/2024. No new or acute complaints on the day of discharge. Discharge instructions as follows: DISCHARGE INSTRUCTIONS PLEASE READ *Please take this with you to your next doctors appointment* - It is advised you take Lasix 40 mg by mouth daily for the next 7 days, once you have completed this resume your losartan?hydrochlorothiazide. -It is advised you follow closely with your primary care physician so they can assess whether you will need to continue Lasix -Please call your primary care provider's office upon discharge to schedule a hospital follow up within 1 week. -Would recommend lab work (BMP) to check your kidney function potassium in 3 to 5 days through your primary care physician's office. Please call their office upon discharge to obtain order for lab work. -You will be discharged on an additional 5 days of prednisone 40 mg -You will be discharged another 2 days of antibiotics, Augmentin, which you will take twice daily - You will need to follow-up closely with your outpatient physician who manages your CPAP so that a new sleep study can be coordinated -You will be discharged on 2 L of home oxygen -You were noted to have an abnormal heart rhythm, atrial fibrillation, during admission, you will continue your metoprolol and Eliquis has been added to your regimen -For any concerning signs or symptoms please call 911 or proceed to the nearest emergency department Physical Exam Narrative General: Alert, answers questions appropriately, no apparent distress HEENT: Atraumatic, normocephalic Eyes: Anicteric, normal conjunctiva, extraocular movements grossly intact Neck: Supple Respiratory: Diminished at the bases but suspect due to body habitus, normal respiratory effort, no respiratory distress Cardiovascular: Regular rate and rhythm GI: Soft, nontender, nondistended Extremities: Slight peripheral edema Musculoskeletal: Moving all extremities Neuro: No overt focal neurological deficits Skin: No rashes appreciated Psych: Cooperative Weight / BMI Weight Weight: 175.1 kg Body Mass Index (BMI) 62.3 ABG / Lab / Microbiology Data 06/19/24 06:47 06/19/24 08:28 Laboratory: Laboratory Results - last 24 hr 06/18/24 21:42: POC Glucose 229 H 06/19/24 06:13: POC Glucose 176 H 06/19/24 06:47: WBC 9.7, RBC 5.71 H, Hgb 16.0 H, Hct 51.3 H, MCV 89.8, MCH 28.0, MCHC 31.2 L, RDW Std Deviation 47.0 H, RDW Coeff of Ryan 14.3, Plt Count 145 L, MPV 9.3, Sodium Cancelled, Potassium Cancelled, Chloride Cancelled, Carbon Dioxide Cancelled, Anion Gap Cancelled, BUN Cancelled, Creatinine Cancelled, Estim Creat Clear Calc Cancelled, Est GFR (MDRD) Non-Af Cancelled, BUN/Creatinine Ratio Cancelled, Glucose Cancelled, Calcium Cancelled, Magnesium Cancelled 06/19/24 08:28: Sodium 141, Potassium 3.5, Chloride 99, Carbon Dioxide 31.7, Anion Gap 10, BUN 47 H, Creatinine 1.28 H, Estim Creat Clear Calc 58.45, Est GFR (MDRD) Non-Af 42 L, BUN/Creatinine Ratio 36.4 H, Glucose 189 H, Calcium 9.0, Magnesium 1.7 06/19/24 10:48: POC Glucose 233 H 06/19/24 16:29: POC Glucose 267 H Microbiology: Microbiology 06/13/24 19:40 Blood Culture (Wb) - Chest Blood Culture - Final No growth in 5 days. 06/13/24 19:40 Blood Culture (Wb) - Right Wrist Blood Culture - Final No growth in 5 days. 06/14/24 22:29 Sputum, Expectorated/Coughed Gram Stain - Final 06/14/24 22:29 Sputum, Expectorated/Coughed Respiratory Culture - Final Mixed normal respiratory hannah. No Streptococcus pneumoniae, beta-hemolytic Streptococcus or Staphylococcus aureus isolated. 06/14/24 02:45 Urine Catheter - Reese Legionella Antigen - Final 06/14/24 02:45 Urine Catheter - Reese Streptococcus pneumoniae Antigen (M - Final 06/13/24 22:55 Mucosa - Nasopharyngeal Respiratory Panel (PCR) - Final 06/13/24 19:55 Mucosa - Nose SARS-CoV-2, Influenza & RSV (PCR) - Final D/C Instructions Discharge Diet: - (DASH diet) DC O2, CPAP, BIPAP Needs Home O2 Discharge instructions: Yes Type of respiratory needs?: Oxygen (2) Oxygen frequency: Continuous Continuous oxygen liters per minute: 2 and CPAP CPAP oxygen liters per minute: 2 CPAP instructions: EPAP/CPAP 12 DC home with Oxygen: Yes Home O2 MD Review: I have reviewed the oxygen testing, and the patient qualifies for home oxygen equipment and portability. The patient is mobile in the home and the community. Meaningful Use Info Meaningful Use Meaningful Use Diagnoses (Choose all that apply): None applicable Ischemic Stroke Statin Dosing Therapy Reference: STATIN DOSE THERAPY REFERENCE: * Patients > 75 years receive moderate or high dose statin therapy. * Patients 75 years or YOUNGER should receive HIGH intensity statin dose unless contraindicated. You will be required to document reason for non-treatment if statin daily dose does not meet guidelines. HIGH DOSE STATIN THERAPY DAILY Atorvastatin > than or = to 40 mg Rosuvastatin > than or = to 20 mg Amlodipine + Atorvastatin > than or = to 2.5/40 mg Ezetimibe + Simvastatin 10/80 mg Simvastatin 80mg Discharge Plan Admission Admit Date/Time: 06/13/24 21:28 Primary Reason for Your Visit: Shortness of breath Attending Provider: Savanna Suero Primary Care Provider: Socrates Spangler Consulting Providers: Estela Staton; Sarabjit Dubois; Azam Montgomery Instructions Patient Instructions: Pneumonia Community Acquired Additional Instructions / Restrictions: DISCHARGE INSTRUCTIONS PLEASE READ *Please take this with you to your next doctors appointment* - It is advised you take Lasix 40 mg by mouth daily for the next 7 days, once you have completed this resume your losartan?hydrochlorothiazide. -It is advised you follow closely with your primary care physician so they can assess whether you will need to continue Lasix -Please call your primary care provider's office upon discharge to schedule a hospital follow up within 1 week. -Would recommend lab work (BMP) to check your kidney function potassium in 3 to 5 days through your primary care physician's office. Please call their office upon discharge to obtain order for lab work. -You will be discharged on an additional 5 days of prednisone 40 mg -You will be discharged another 2 days of antibiotics, Augmentin, which you will take twice daily - You will need to follow-up closely with your outpatient physician who manages your CPAP so that a new sleep study can be coordinated -You will be discharged on 2 L of home oxygen -You were noted to have an abnormal heart rhythm, atrial fibrillation, during admission, you will continue your metoprolol and Eliquis has been added to your regimen -For any concerning signs or symptoms please call 911 or proceed to the nearest emergency department Discharge Orders/Prescriptions Prescriptions: New Eliquis 5 mg Tablet 5 mg PO BID 30 Days Qty: 60 0RF amoxicillin-pot clavulanate 875-125 mg tablet 1 tab PO BID 2 Days Qty: 4 0RF furosemide 40 mg Tablet 40 mg PO DAILY 7 Days Qty: 7 0RF prednisone 20 mg tablet 40 mg PO DAILY 5 Days Qty: 10 0RF Continued atorvastatin 20 MG tablet 20 mg PO QHS Patient Comments: cholesterol fexofenadine 180 MG tablet 180 mg PO DAILY Patient Comments: allergies amlodipine 5 MG tablet 5 mg PO DAILY Patient Comments: blood pressure levothyroxine 100 MCG tablet 100 mcg PO DAILY Patient Comments: thyroid metoprolol tartrate 50 MG tablet 50 mg PO BID Patient Comments: blood pressure potassium chloride 10 MEQ tablet 10 meq PO BID Patient Comments: supplement metformin 500 MG tablet,ER rozina.retention 24 hr 1,000 mg PO BIDAC insulin glargine [Lantus Solostar U-100 Insulin] 100 UNITS/ML insulin pen 50 units subcut QHS Patient Comments: diabetes hydrocortisone 1 APPLIC cream 1 applicatio topical BID nystatin [Nyamyc] 1 APPLIC bottle 1 applic topical BID 0RF oxycodone 5 MG tablet 5 mg PO Q4H PRN PRN (Reason: Moderate Pain (pain scale 4-5)) Qty: 20 0RF magnesium oxide 400 MG tablet 400 mg PO BID Qty: 60 0RF docusate sodium 100 MG capsule 200 mg PO BID pantoprazole 40 mg tablet,delayed release (DR/EC) 40 mg PO DAILY Held losartan-hydrochlorothiazide [Hyzaar] 1 TAB tablet 1 tab PO DAILY Hold Instructions: Resume on 06/27/24. Patient Comments: blood pressure No Action insulin aspart U-100 [Novolog FlexPen U-100 Insulin] 100 UNITS/ML insulin pen 1 sliding scale dose subcut ACHS Referrals / Follow Up: Socrates Spangler MD [Primary Care Provider] - Within 1 Week (Office was closed for lunch when we tried to schedule an appointment please call the office to schedule your appointment. ) Sarabjit Dubois DPM [Med Staff - Active Staff] - Disposition Disposition (needs filled in before D/C Order can be placed): Home, Self Care Charges/Coding Visit Charges Inpatient E&M: 80977 Disch Hosp >30min
--- NOTE | 2024-06-19 13:41 | CASEMGMT ---
Patient has order for discharge. Patient requires home oxygen at discharge, script received. RN CM in to discuss needs at discharge. Patient states she would like [employer] for oxygen. Patient asked RN CM to speak to daughter, patient called daughter in room. RN CM spoke to daughter and updated regarding home oxygen setup. Daughter states that patient's new hospital bed has been delivered. Daughter denies need for HHC at discharge. Daughter had no further questions or concerns. RN CM updated discharge plan.
--- NOTE | 2024-06-19 14:51 | CASEMGMT ---
Discharge Planning Physicians will transport pt home by cot at 4p. Nursing, SW, pt, and her daughter updated. Arabella Bertrand DC Planning Asst.
--- NOTE | 2024-06-19 14:55 | CASEMGMT ---
Patient was discharged home. Physicians transported patient home via cot. SW faxed d/c instructions to Radha Valdovinos per her request [phone]. Carolina GRIFFIN
--- NOTE | 2024-06-19 15:12 | PHA.DC_ITS ---
Pharmacy [facility] has performed discharge medication reconciliation and counseling for this patient. The patient's discharge medication list was reviewed for discrepancies and discrepancies were resolved. The patient was counseled on the following discharge medications and changes in medications for homegoing were reviewed. The Reason for Use, instructions for use, and potential side effects were reviewed for all new medications. The patient's questions regarding all of their medications were answered. 1. Prednisone 40 mg PO daily x 5 days 2. Augmentin 875 mg PO BID x 2 days 3. Furosemide 40 mg PO daily x 7 days 4. Eliquis 5 mg PO BID The patient was able to verbally demonstrate an understanding of their discharge medications. Medications at Discharge Home Medications amlodipine 5 mg tablet 5 mg PO DAILY blood pressure 05/12/16 atorvastatin 20 mg tablet 20 mg PO QHS cholesterol 05/12/16 fexofenadine 180 mg tablet 180 mg PO DAILY allergies 05/12/16 hydrocortisone 2.5 % topical cream 1 applicatio topical BID rash 05/12/16 insulin glargine 100 unit/mL (3 mL) subcutaneous pen (Lantus Solostar U-100 Insulin) 50 units subcut QHS diabetes 05/12/16 levothyroxine 100 mcg tablet 100 mcg PO DAILY thyroid 05/12/16 losartan 100 mg-hydrochlorothiazide 25 mg tablet (Hyzaar) 1 tab PO DAILY blood pressure 05/12/16 Held on 06/19/24. Instructions: Resume on 06/27/24. metformin 500 mg 24 hr tablet,extended release (gastric retention) 1,000 mg PO BIDAC diabetes 05/12/16 metoprolol tartrate 50 mg tablet 50 mg PO BID blood pressure 05/12/16 potassium chloride 10 mEq tablet,extended release(part/cryst) 10 meq PO BID supplement 05/12/16 magnesium oxide 400 mg (241.3 mg magnesium) tablet 400 mg PO BID supplement #60 TABLETS 05/14/16 nystatin 100,000 unit/gram topical powder (Nyamyc) 1 applic topical BID yeast 05/14/16 oxycodone 5 mg tablet 5 mg PO Q4H PRN PRN Moderate Pain (pain scale 4-5) ##20 05/14/16 docusate sodium 100 mg capsule 200 mg PO BID stool softner 06/16/24 pantoprazole 40 mg tablet,delayed release 40 mg PO DAILY reflux 06/16/24 amoxicillin 875 mg-potassium clavulanate 125 mg tablet 1 tab PO BID 2 days #4 tabs 06/19/24 apixaban 5 mg tablet (Eliquis) 5 mg PO BID 30 days #60 tabs 06/19/24 furosemide 40 mg tablet 40 mg PO DAILY 7 days #7 tabs 06/19/24 insulin aspart U-100 100 unit/mL (3 mL) subcutaneous pen (Novolog FlexPen U-100 Insulin aspart) 1 sliding scale dose subcut ACHS diabetes 06/19/24 prednisone 20 mg tablet 40 mg (2 x 20 mg) PO DAILY 5 days #10 tabs 06/19/24
--- NOTE | 2024-06-19 15:23 | NURSING ---
Went over discharge instructions with daughter Jazmin over the phone. no questions at this time
--- NOTE | 2024-06-19 15:29 | CASEMGMT ---
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 SW called patient's daughter Jazmin and let her know about the change in time. Carolina Kerr MAINTENANCE MECHANIC TELEPHONE ELIAS
[2024-06-19 16:48] LABS: Bedside Glucose 267 mg/dL (74-106)
== END 2024-06-19 17:45 | disposition home or self-care (01) | DRG 193 ==
LOC: ED 21:29 → PCU 22:51
PROVIDERS: Internal Medicine; Admitting Provider Family Medicine; Emergency Provider Emergency Medicine; PCP Internal Medicine; Visit Provider Internal Medicine
DX: J18.9 Pneumonia, unspecified organism (principal); J96.01 Acute respiratory failure with hypoxia; I50.33 Acute on chronic diastolic (congestive) heart failure; E87.29 Other acidosis; E66.2 Morbid (severe) obesity with alveolar hypoventilation; I24.89 Other forms of acute ischemic heart disease; Z68.44 Body mass index [BMI] 60.0-69.9, adult; I13.0 Hypertensive heart and chronic kidney disease with heart failure and stage 1 through stage 4 chronic kidney disease, or unspecified chronic kidney disease; N17.9 Acute kidney failure, unspecified; E11.22 Type 2 diabetes mellitus with diabetic chronic kidney disease; N18.31 Chronic kidney disease, stage 3a; E03.9 Hypothyroidism, unspecified; I48.91 Unspecified atrial fibrillation; Z79.4 Long term (current) use of insulin; K21.9 Gastro-esophageal reflux disease without esophagitis; E78.5 Hyperlipidemia, unspecified; J98.01 Acute bronchospasm; J30.9 Allergic rhinitis, unspecified; S90.111A Contusion of right great toe without damage to nail, initial encounter; M20.5X1 Other deformities of toe(s) (acquired), right foot; E87.70 Fluid overload, unspecified; Z79.891 Long term (current) use of opiate analgesic; Z83.3 Family history of diabetes mellitus; Z79.890 Hormone replacement therapy; Z79.01 Long term (current) use of anticoagulants; Z11.52 Encounter for screening for COVID-19; Z79.2 Long term (current) use of antibiotics; Z74.01 Bed confinement status; X58.XXXA Exposure to other specified factors, initial encounter; M89.071 Algoneurodystrophy, right ankle and foot
CPT/HCPCS: 36415; 36600; 51702; 71045; 73630; 80048; 80053; 80061; 81001; 82803; 82962; 83605; 83735; 83880; 84145; 84439; 84443; 84484; 85025; 85027; 85379; 87040; 87070; 87205; 87449; 87631; 87633; 93005; 93306; 93970; 94002; 94003; 94640; 94668; 94762; 97161; 97802; 99285; Q9957; A4216; C8929; J1940

== ENCOUNTER 2024-10-18 14:46 | Inpatient (IN) | payer MEDICARE, MEDICAID, SELFPAY ==
[2024-10-18] VITALS (15 sets, daily range): BP systolic 95–152; BP diastolic 56–134; PULSE 42–61; RESP 12–25; TEMP 35.3–37; O2SAT 95–100; BMI 71.2
--- NOTE | 2024-10-18 15:15 | EKG12_ITS ---
Test Reason : HIGH BS Blood Pressure : */* mmHG Vent. Rate : 51 BPM Atrial Rate : 51 BPM P-R Int : 184 ms QRS Dur : 112 ms QT Int : 478 ms P-R-T Axes : 64 15 -36 degrees QTcB Int : 440 ms Sinus bradycardia with Premature atrial complexes Low voltage QRS Nonspecific T wave abnormality Abnormal ECG Confirmed by URSZULA NUNEZ ([id number]), tape editor BETHEL PALMA ([id number]) on 10/22/2024 6:47:32 AM Referred By: Ryan Yang Confirmed By: URSZULA NUNEZ
--- NOTE | 2024-10-18 15:16 | EDS_ITS ---
HPI History of Present Illness Chief Complaint: Hypoglycemia Informant: patient Onset/Context/Timing Onset: Today Timing: Intermittent Current Severity: Mild Maximum Severity: Moderate Narrative Narrative: 78-year-old female history of diabetes, CHF, CKD, hypertension on Eliquis I believe for dysrhythmia right eye blindness. Today had low blood sugars. Said her blood sugars have been running lower lately. She has had some nausea but no vomiting or diarrhea no melena. No fever. Denies any dysuria. Patient is unable to walk. She lives at home with her who helps take care of her he has dementia she also has a caregiver coming in 5 days a week. Young was called today because of change in mental status she was found to have low blood sugar and was brought in. Prior similar symptoms: Yes Recent Illness/[facility]ospital[facility]: [facility] Medical History (Updated 10/18/24 @ 18:[address] Nico Garcia, DO) On home oxygen therapy Congestive heart failure (CHF) Chest pain Hypertension Migraines Contusion of right great toe without damage to nail, initial encounter CHF (congestive heart failure) CKD (chronic kidney disease), stage III Acute hypoxic respiratory failure Hypothyroidism Allergic rhinitis GERD (gastroesophageal reflux disease) Obstructive sleep apnea Hyperlipidemia Hypertension Type 2 diabetes mellitus Morbid obesity Home Medications ?Medication ?Instructions ?Recorded ?Last Taken ?Type amlodipine 5 mg tablet 5 mg PO DAILY blood pressure 05/12/16 05/12/16 08:00 History atorvastatin 20 mg tablet 20 mg PO QHS cholesterol 03/3005/11/16 22:00 History fexofenadine 180 mg tablet 180 mg PO DAILY allergies 0 05/12/16 05/12/16 08:00 History hydrocortisone 2.5 % topical cream 1 applicatio topica l BID rash 05/12/16 Unknown History insulin glargine 100 unit/mL (3 50 units subcut QHS di abetes 05/12/16 05/11/16 22:00 History mL) subcutaneous pen (Lantus Solostar U-100 Insulin) metformin 500 mg 24 hr 1,000 mg PO BIDAC diabetes 0 05/12/16 05/12/16 08:00 History tablet,extended release (gastric retention) metoprolol tartrate 50 mg tablet 50 mg PO BID blood pr essure 05/12/16 05/12/16 08:00 History magnesium oxide 400 mg (241.3 mg 400 mg PO BID supplem ent #60 05/14/16 Unknown Rx magnesium) tablet TABLETS nystatin 100,000 unit/gram topical 1 applic topical BI D yeast 05/14/16 Unknown Rx powder ([facility]) docusate sodium 100 mg capsule 200 mg PO BID stool sof tner 06/16/24 Unknown History pantoprazole 40 mg tablet,delayed 40 mg PO DAILY reflu x 06/16/24 Unknown History release furosemide 40 mg tablet 40 mg PO DAILY 7 days #7 tab s 06/19/24 Unknown Rx insulin aspart U-100 100 unit/mL 1 sliding scale dose subcut ACHS 06/19/24 Unknown History (3 mL) subcutaneous pen (Novolog diabetes FlexPen U-100 Insulin aspart) ergocalciferol (vitamin D2) 1,250 1,250 mcg PO QWEEK 0 10/18/24 Unknown History mcg (50,000 unit) capsule escitalopram oxalate 10 mg tablet 10 mg PO QHS 5 Unknown History glipizide 10 mg tablet 10 mg PO BID 10/18/24 Unknow n History hydroxyzine pamoate 25 mg capsule 25 mg PO DAILY PRN i tching 10/18/24 Unknown History insulin glargine-yfgn 100 unit/mL 45 unit subcut DAILY 10/18/24 Unknown History (3 mL) subcutaneous pen levothyroxine 112 mcg tablet 112 mcg PO DAILY 10/18/24 Unknown History loratadine 10 mg tablet (Allergy 10 mg PO DAILY Unknown History Relief (loratadine)) magnesium chloride 64 mg 64 mg PO DAILY 10/18/24 Unkn own History (magnesium chloride) tablet,delayed release (Mag 64) montelukast 10 mg tablet 10 mg PO DAILY 10/18/24 Unkn own History nystatin 100,000 unit/gram topical 1 applic topical DA HERNAN 10/18/24 Unknown History cream potassium chloride 10 mEq 10 meq PO BID 10/18/24 Unkno wn History tablet,extended release warfarin 5 mg tablet 7.5 mg PO DAILY 10/18/24 Unk nown History Allergy/AdvReac Type Severity Reaction Status Date / Time lisinopril Allergy Unknown Verified 10/18/24 14:48 pollen extracts Allergy Itching Verified 10/18/24 14:48 Family History Mother Diabetes Heart disease Hypertension Father Diabetes Cancer Heart disease Alzheimer dementia Surgical History History of ankle surgery S/P cholecystectomy Social History household members: spouse Smoking Status: Never smoker alcohol intake: never substance use type: does not use ROS ROS ED ROS Narrative Denies recent illness. Nausea without vomiting. No diarrhea fever. No dysuria nor melena. Constitutional Constitutional ED: Denies chills or fever(s) Eyes Eyes: Denies blurry vision ENT ENT ED: Denies ear pain Cardiovascular Cardiovascular: Denies chest pain Respiratory/Chest Respiratory/Chest: Denies cough Gastrointestinal Gastrointestinal: Reports nausea; Denies abdominal pain, constipation, diarrhea or melena Genitourinary Genitourinary ED: Denies dysuria or hematuria Musculoskeletal Musculoskeletal: Denies arthralgias Integumentary Denies abscess Neurologic Neurologic: Denies headache(s) Psychiatric Psychiatric: Denies anxiety Endocrine Endocrinology: Denies cold intolerance Hematologic/Lymphatic Hematologic/Lymphatic: Reports none Allergic/Immunologic Allergic/Immunologic ED: Denies mouth swelling, tongue swelling or urticaria EXAM Physical Exam Narrative Exam Narrative: 78-year-old female vital signs stable initial blood pressure elevated 152/134 to be rechecked. Pulse ox 97% on 2 L. No hypoxia on oxygen. H EENT exam pupils round reactive light. Legally blind right eye. No trauma. Moist with membran es. Neck nontender. Lungs clear to auscultation bilaterally. Heart bradycardic rate about 55 no murmur. Chest wall ribs nontender. Abdomen obese soft nontender. No peritoneal signs. No distention. Moving all 4 extremities. 1+ edema both lower extremities. Dorsi plantarflexion intact. 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 Patient is awake and alert. Answer questions following commands. Const Vital Signs: 10/18/24 14:48 10/18/24 15:00 10/18/24 16:09 Temperature 98.2 F Temperature Source Oral Pulse Rate 55 L 52 L Respiratory Rate 18 17 Respiratory Effort Normal Respiratory Pattern Normal Blood Pressure 152/134 H 124/58 H Blood Pressure Mean 140 80 Pulse Ox 97 100 Oxygen Delivery Method Nasal Cannula Room Air Oxygen Flow Rate (L/min) 2 10/18/24 16:15 10/18/24 16:30 10/18/24 16:45 Temperature Temperature Source Pulse Rate 42 L 54 L 61 Respiratory Rate 20 H 19 H 15 Respiratory Effort Respiratory Pattern Blood Pressure 137/112 H 122/56 H 128/67 H Blood Pressure Mean 121 76 83 Pulse Ox 100 99 96 Oxygen Delivery Method Room Air Room Air Oxygen Flow Rate (L/min) 10/18/24 17:00 10/18/24 17:15 10/18/24 17:30 Temperature Temperature Source Pulse Rate 48 L 46 L 50 L Respiratory Rate 18 20 H 24 H Respiratory Effort Respiratory Pattern Blood Pressure 131/89 H 110/68 121/73 H Blood Pressure Mean 103 74 89 Pulse Ox 100 100 98 Oxygen Delivery Method Room Air
--- NOTE | 2024-10-18 15:16 | EX.ED.DYSGE1 ---
HPI History of Present Illness Chief Complaint: Hypoglycemia Informant: patient Onset/Context/Timing Onset: Today Timing: Intermittent Current Severity: Mild Maximum Severity: Moderate Narrative Narrative: 78-year-old female history of diabetes, CHF, CKD, hypertension on Eliquis I believe for dysrhythmia right eye blindness. Today had low blood sugars. Said her blood sugars have been running lower lately. She has had some nausea but no vomiting or diarrhea no melena. No fever. Denies any dysuria. Patient is unable to walk. She lives at home with her who helps take care of her he has dementia she also has a caregiver coming in 5 days a week. Young was called today because of change in mental status she was found to have low blood sugar and was brought in. Prior similar symptoms: Yes Recent Illness/Hospitalization: No [facility] Medical History (Updated 10/18/24 @ 18:[address] Nico Garcia, DO) On home oxygen therapy Congestive heart failure (CHF) Chest pain Hypertension Migraines Contusion of right great toe without damage to nail, initial encounter CHF (congestive heart failure) CKD (chronic kidney disease), stage III Acute hypoxic respiratory failure Hypothyroidism Allergic rhinitis GERD (gastroesophageal reflux disease) Obstructive sleep apnea Hyperlipidemia Hypertension Type 2 diabetes mellitus Morbid obesity Home Medications ?Medication ?Instructions ?Recorded ?Last Taken ?Type amlodipine 5 mg tablet 5 mg PO DAILY blood pressure 05/12/16 05/12/16 08:00 History atorvastatin 20 mg tablet 20 mg PO QHS cholesterol 05/12/16 05/11/16 22:00 History fexofenadine 180 mg tablet 180 mg PO DAILY allergies 05/12/16 05/12/16 08:00 History hydrocortisone 2.5 % topical cream 1 applicatio topical BID rash 05/12/16 Unknown History insulin glargine 100 unit/mL (3 50 units subcut QHS diabetes 05/12/16 05/11/16 22:00 History mL) subcutaneous pen (Lantus Solostar U-100 Insulin) metformin 500 mg 24 hr 1,000 mg PO BIDAC diabetes 05/12/16 05/12/16 08:00 History tablet,extended release (gastric retention) metoprolol tartrate 50 mg tablet 50 mg PO BID blood pressure 05/12/16 05/12/16 08:00 History magnesium oxide 400 mg (241.3 mg 400 mg PO BID supplement #60 05/14/16 Unknown Rx magnesium) tablet TABLETS nystatin 100,000 unit/gram topical 1 applic topical BID yeast 05/14/16 Unknown Rx powder ([facility]) docusate sodium 100 mg capsule 200 mg PO BID stool softner 06/16/24 Unknown History pantoprazole 40 mg tablet,delayed 40 mg PO DAILY reflux 06/16/24 Unknown History release furosemide 40 mg tablet 40 mg PO DAILY 7 days #7 tabs 06/19/24 Unknown Rx insulin aspart U-100 100 unit/mL 1 sliding scale dose subcut ACHS 06/19/24 Unknown History (3 mL) subcutaneous pen (Novolog diabetes FlexPen U-100 Insulin aspart) ergocalciferol (vitamin D2) 1,250 1,250 mcg PO QWEEK 10/18/24 Unknown History mcg (50,000 unit) capsule escitalopram oxalate 10 mg tablet 10 mg PO QHS 10/18/24 Unknown History glipizide 10 mg tablet 10 mg PO BID 10/18/24 Unknown History hydroxyzine pamoate 25 mg capsule 25 mg PO DAILY PRN itching 10/18/24 Unknown History insulin glargine-yfgn 100 unit/mL 45 unit subcut DAILY 10/18/24 Unknown History (3 mL) subcutaneous pen levothyroxine 112 mcg tablet 112 mcg PO DAILY 10/18/24 Unknown History loratadine 10 mg tablet (Allergy 10 mg PO DAILY 10/18/24 Unknown History Relief (loratadine)) magnesium chloride 64 mg 64 mg PO DAILY 10/18/24 Unknown History (magnesium chloride) tablet,delayed release (Mag 64) montelukast 10 mg tablet 10 mg PO DAILY 10/18/24 Unknown History nystatin 100,000 unit/gram topical 1 applic topical DAILY 10/18/24 Unknown History cream potassium chloride 10 mEq 10 meq PO BID 10/18/24 Unknown History tablet,extended release warfarin 5 mg tablet 7.5 mg PO DAILY 10/18/24 Unknown History Allergy/AdvReac Type Severity Reaction Status Date / Time lisinopril Allergy Unknown Verified 10/18/24 14:48 pollen extracts Allergy Itching Verified 10/18/24 14:48 Family History Mother Diabetes Heart disease Hypertension Father Diabetes Cancer Heart disease Alzheimer dementia Surgical History History of ankle surgery S/P cholecystectomy Social History household members: spouse Smoking Status: Never smoker alcohol intake: never substance use type: does not use ROS ROS ED ROS Narrative Denies recent illness. Nausea without vomiting. No diarrhea fever. No dysuria nor melena. Constitutional Constitutional ED: Denies chills or fever(s) Eyes Eyes: Denies blurry vision ENT ENT ED: Denies ear pain Cardiovascular Cardiovascular: Denies chest pain Respiratory/Chest Respiratory/Chest: Denies cough Gastrointestinal Gastrointestinal: Reports nausea; Denies abdominal pain, constipation, diarrhea or melena Genitourinary Genitourinary ED: Denies dysuria or hematuria Musculoskeletal Musculoskeletal: Denies arthralgias Integumentary Denies abscess Neurologic Neurologic: Denies headache(s) Psychiatric Psychiatric: Denies anxiety Endocrine Endocrinology: Denies cold intolerance Hematologic/Lymphatic Hematologic/Lymphatic: Reports none Allergic/Immunologic Allergic/Immunologic ED: Denies mouth swelling, tongue swelling or urticaria EXAM Physical Exam Narrative Exam Narrative: 78-year-old female vital signs stable initial blood pressure elevated 152/134 to be rechecked. Pulse ox 97% on 2 L. No hypoxia on oxygen. H EENT exam pupils round reactive light. Legally blind right eye. No trauma. Moist with membranes. Neck nontender. Lungs clear to auscultation bilaterally. Heart bradycardic rate about 55 no murmur. Chest wall ribs nontender. Abdomen obese soft nontender. No peritoneal signs. No distention. Moving all 4 extremities. 1+ edema both lower extremities. Dorsi plantarflexion intact. Normal director oracle strength. Patient is awake and alert. Answer questions following commands. Const Vital Signs: 10/18/24 14:48 10/18/24 15:00 10/18/24 16:09 Temperature 98.2 F Temperature Source Oral Pulse Rate 55 L 52 L Respiratory Rate 18 17 Respiratory Effort Normal Respiratory Pattern Normal Blood Pressure 152/134 H 124/58 H Blood Pressure Mean 140 80 Pulse Ox 97 100 Oxygen Delivery Method Nasal Cannula Room Air Oxygen Flow Rate (L/min) 2 10/18/24 16:15 10/18/24 16:30 10/18/24 16:45 Temperature Temperature Source Pulse Rate 42 L 54 L 61 Respiratory Rate 20 H 19 H 15 Respiratory Effort Respiratory Pattern Blood Pressure 137/112 H 122/56 H 128/67 H Blood Pressure Mean 121 76 83 Pulse Ox 100 99 96 Oxygen Delivery Method Room Air Room Air Oxygen Flow Rate (L/min) 10/18/24 17:00 10/18/24 17:15 10/18/24 17:30 Temperature Temperature Source Pulse Rate 48 L 46 L 50 L Respiratory Rate 18 20 H 24 H Respiratory Effort Respiratory Pattern Blood Pressure 131/89 H 110/68 121/73 H Blood Pressure Mean 103 74 89 Pulse Ox 100 100 98 Oxygen Delivery Method Room Air Oxygen Flow Rate (L/min) 10/18/24 17:45 10/18/24 18:00 10/18/24 18:15 Temperature Temperature Source Pulse Rate 46 L 48 L 56 L Respiratory Rate 17 22 H 25 H Respiratory Effort Respiratory Pattern Blood Pressure 125/57 H 125/62 H Blood Pressure Mean 77 80 Pulse Ox 99 95 Oxygen Delivery Method Room Air Oxygen Flow Rate (L/min) 10/18/24 18:21 10/18/24 18:28 Temperature 98.6 F Temperature Source Pulse Rate 48 L 60 Respiratory Rate 16 12 Respiratory Effort Respiratory Pattern Blood Pressure 125/62 H Blood Pressure Mean 83 Pulse Ox 95 Oxygen Delivery Method Oxygen Flow Rate (L/min) Positive well nourished, well developed and obese; Negative for cachectic or contractures General Appearance ED: well developed and NAD; Negative for cachectic, contractures, cyanotic or diaphoretic Nutritional Appearance: obese; Negative for cachectic HEENT Reports moist mucous membranes Negative for trauma or tenderness Eyes PERRL and EOMs intact bilaterally Neck no lymphadenopathy, supple and no JVD Chest Wall inspection of chest normal and palpation of chest normal Resp normal respiratory effort and clear to auscultation bilaterally Cardio regular rhythm, S1 normal heart sound, S2 normal heart sound and no murmurs; Negative for regular rate Palpation: Negative for palpable S3 or palpable S4 Rate: bradycardia GI normal to inspection, nondistended, normoactive bowel sounds, non-tender, non-distended and no masses Auscultation: normoactive bowel sounds Palpation: soft; Negative for tender, guarding or rebound tenderness present Extremity Negative for normal to inspection General Extremety ED: Yes edema; Negative for tenderness General Extremity: edema Neuro oriented x3 and CN's II-XII intact bilaterally Sensorium / Orientation: alert; Negative for orientation impaired, lethargic or stuporous Motor Exam: strength 5/5 throughout Psych mental status grossly normal Attitude: No agitated Mood & Affect: Negative for depressed, anxious or tearful Skin No no rashes or lesions noted and no wounds Skin Narrative: Yeast infections on the skin. General Skin Exam: Negative for jaundice Trauma: Negative for abrasion Wounds: Negative for wounds noted MDM MDM MDM Narrative Medical decision making narrative: 78-year-old female unable to stand which is her baseline cared for by her at home who has dementia and also a interpreter deaf. Been having episodes of hypoglycemia she is a known diabetic. She will undergo workup looking for things like infection, dehydration and electrolyte abnormalities, etc. support services tech will be consulted because she may need to be a social admit due to the conditions at home. Repeat exam patient doing well at 6 PM. Her potassium came back elevated 7.5 I think that is hemolysis and/or lab error. I am having them run it they ran the initial 1 they dispose of because of all this is the second 1 came back at 7.5 but there is hemolysis or also. Her kidney function is actually better than she normally runs she has a creatinine of 1.27 and she has never had a higher potassium 4.5. We will hold off on any treatment of the hyperkalemia until I get the third potassium back. It returned at 5.6. I think these are erroneously elevated will not treat. She will be started on IV Rocephin for UTI. I spoken to the hospitalist to admit the patient to general medical floor. History & Record Review Discussion w/independent historian: Patient Additional record(s) reviewed:: Prior inpatient record, Prior outpatient record and Prior labs Lab Data Attestation: I reviewed the patient's lab results. Lab results narrative: CBC shows a white count of 9.0. H&H 11.8 and 40. Platelets 190. Chemistries show a sodium 136. Potassium is 7.5. Gap of 5. BUN and creatinine of 23 and 1.27. Repeat potassium was done on lab call me it was 5.6 and reported to me around 6:37 PM. BGT of 99. Liver enzymes are unremarkable. Chest x-ray chronic changes with cardiomegaly. UA positive nitrites, 50-100 white cells. 10-25 epithelial cells may be contaminated. 1+ bacteria. A culture be sent. Labs: Laboratory Results - last 24 hr 10/18/24 10/18/24 10/18/24 14:53 15:20 16:00 WBC 9.0 RBC 4.57 Hgb 11.8 L Hct 40.8 MCV 89.3 MCH 25.8 L MCHC 28.9 L RDW Std Deviation 54.3 H RDW Coeff of Ryan 16.6 H Plt Count 190 MPV 10.3 Immature Gran % (Auto) 0.300 Neut % (Auto) 81.4 H Lymph % (Auto) 11.8 L [place] % (Auto) 6.0 Eos % (Auto) 0.4 Baso % (Auto) 0.1 Absolute Neuts (auto) 7.3 Absolute Lymphs (auto) 1.06 Nucleated RBC % 0 Sodium Cancelled Potassium Cancelled Chloride Cancelled Carbon Dioxide Cancelled Anion Gap Cancelled BUN Cancelled Creatinine Cancelled Estim Creat Clear Calc Cancelled Est GFR (MDRD) Non-Af Cancelled BUN/Creatinine Ratio Cancelled Glucose Cancelled Calcium Cancelled Total Bilirubin Cancelled AST Cancelled ALT Cancelled Alkaline Phosphatase Cancelled Total Protein Cancelled Albumin Cancelled Globulin Cancelled Albumin/Globulin Ratio Cancelled Urine Color Urine Clarity Urine pH Ur Specific [place] Urine Protein Urine Glucose (UA) Urine Ketones Urine Occult Blood Urine Nitrite Urine Bilirubin Urine Urobilinogen Ur Leukocyte Esterase Urine RBC Urine WBC Ur Squamous Epith Cells Urine Bacteria Urine Mucus POC Glucose 99 73 L 10/18/24 10/18/24 10/18/24 16:03 16:39 18:17 WBC RBC Hgb Hct MCV MCH MCHC RDW Std Deviation RDW Coeff of Ryan Plt Count MPV Immature Gran % (Auto) Neut % (Auto) Lymph % (Auto) [place] % (Auto) Eos % (Auto) Baso % (Auto) Absolute Neuts (auto) Absolute Lymphs (auto) Nucleated RBC % Sodium 136 Potassium 7.5 H* 5.6 H Chloride 104 Carbon Dioxide 26.8 Anion Gap 5 BUN 23 H Creatinine 1.27 H Estim Creat Clear Calc 64.53 Est GFR (MDRD) Non-Af 43 L BUN/Creatinine Ratio 18.2 Glucose 74 Calcium 8.4 Total Bilirubin 0.30 AST 33 H ALT 5 Alkaline Phosphatase 73 Total Protein 5.5 L Albumin 2.2 L Globulin 3.3 Albumin/Globulin Ratio 0.7 L Urine Color Yellow Urine Clarity Cloudy Urine pH 6.0 Ur Specific [place] 1.020 Urine Protein 30 H Urine Glucose (UA) Normal Urine Ketones Negative Urine Occult Blood 25 H Urine Nitrite Positive H Urine Bilirubin 1 H Urine Urobilinogen Normal Ur Leukocyte Esterase 500 H Urine RBC 0-5 SEEN Urine WBC 50-100 SEEN Ur Squamous Epith Cells 10-25 SEEN Urine Bacteria 1+ Urine Mucus 0 SEEN POC Glucose Radiography Chest X-Ray - ED: 1 View, Read by ED Physician, Read by Radiologist, Normal, Lungs, Mediastinum, Bony Structures, No Acute Disease, Chronic Changes and Cardiomegaly Diagnostic Testing: Clinical Impression(s) from Imaging Studies Chest X-Ray 10/18/24 15:45 IMPRESSION: Moderate cardiomegaly. Findings suggestive of mild linear atelectasis at the lung bases. Reading Location: [facility] Chest x-ray, portable, single view interpreted by myself and radiologist. Shows obvious cardiomegaly. Chronic changes. No acute process. Rhythm Strip Rhythm Strip: Sinus bradycardia Rate: 51 Ectopy: None EKG Initial EKG: Attestation: I personally reviewed and interpreted this EKG as follows: Interpretation: Sinus Bradycardia Comments: sinus bradycardia rate of 51 no acute signs of CA or ischemia. Low voltage. Discharge Plan Dx/Rx/DC Orders Clinical Impression: Adult failure to thrive, Unable to ambulate, History of diabetes mellitus, Chronic anticoagulation, Acute metabolic encephalopathy due to hypoglycemia Disposition Disposition: Acute Care Hospital [facility]
--- NOTE | 2024-10-18 15:22 | ED.RN ---
PT. ARRIVES WITH YELLOW DRIED/CRUSTED BODILY FLUIDS ON HOME SHEETS, FOUL ODOR. PT APPEARS UNKEPT, NO CLOTHES, JUST A WHITE FLAT SHEET, WITH MULTIPLE LOCATIONS OF IMPAIRED SKIN INTEGRITY AND WOUNDS. PT. STATES MY CARES FOR ME AND SOMEONE COMES TO CARE FOR ME 5 DAYS A WEEK, BUT PT. UNABLE TO RECALL LAST TIME PERSONAL HYGIENE WAS COMPLETED BY SELF OR WITH ASSISTANCE. PROVIDER AWARE. SOCIAL WORK CONSULT PLACED
--- NOTE | 2024-10-18 15:45 | RAD_ITS ---
PROCEDURE: CHEST 1 VIEW (PORTABLE) 10/18/2024 REASON FOR EXAM: WEAKNESS TECHNIQUE: Frontal view of the chest. COMPARISON: Prior study dated June 15, 2024 FINDINGS: Hardware: EKG electrodes are seen. Heart: Moderate cardiomegaly. Lungs: Mild increased markings at the lung bases suggestive of atelectasis Bones: Degenerative changes are identified within the thoracic spine. Other: RAD/Chest 1 View (Portable) IMPRESSION: Moderate cardiomegaly. Findings suggestive of mild linear atelectasis at the lung bases. Reading Location: [id number]
[2024-10-18 16:04] LABS: Hematocrit 40.8 % (37-47); Hemoglobin 11.8 g/dL (12.0-15.0); Immature Granulocytes Count 0.030 X10^3/uL (0.0-0.0); Mean Corp Hgb Conc 28.9 g/dL (32-36); Mean Corpuscular Volume 89.3 fL (81-99); Mean Platelet Vol. 10.3 fl (6.2-12.0); NRBC Flagged by Analyzer 0 % (0-5); Platelet Count 190 K/mm3 (150-450); RBC Distribution Width CV 16.6 % (11.6-14.6); RBC Distribution Width SD 54.3 fl (35.1-43.9); Red Blood Count 4.57 M/mm3 (4.2-5.4); White Blood Count 9.0 K/mm3 (4.4-11.0)
[2024-10-18 16:47] LABS: Mucous, Urine 0 SEEN /hpf (<or=2+)
--- NOTE | 2024-10-18 16:48 | ED.RN ---
1635: THIS NURSE, Aime HYATT AT BEDSIDE TO PLACE HILL CATHETER AND PROVIDE PERSONAL CARE. PT. ANTERIOR SIDE AND PERINEAL AREA CLEANED, PT. PLACED IN HOSPITAL GOWN, AND CLEAN TOP BLANKET PROVIDED. UNABLE TO ROLL PT. TO REMOVE SOILED LOWER SHEETS DUE TO PT. SIZE AND BED SIZE.
[2024-10-18 16:51] LABS: Color, Urine Yellow (Yellow); Glucose, Dipstick Normal (Normal); Ketone-Dipstick Negative (Negative); Leukocyte Esterase-Dipstick 500 /ul (Negative); Nitrite-Dipstick Positive (Negative); Occult Blood-Urine 25 /ul (Negative); Protein-Dipstick 30 mg/dl (Negative); Specific Gravity, Urine 1.020 (1.002-1.030)
[2024-10-18 16:55] LABS: Urine Bilirubin Dipstick 1 mg/dL (Negative)
[2024-10-18 17:10] LABS: Red Blood Cells-Urine 0-5 SEEN /hpf (0-5); Squamous Epithelial Cells - UA 10-25 SEEN /hpf (5-10)
[2024-10-18 17:45] LABS: AST(SGOT) 33 U/L (<=31); Alanine Aminotransfer ALT/SGPT 5 U/L (<=34); Albumin, Serum 2.2 g/dL (3.4-4.8); Alkaline Phosphatase 73 U/L (35-104); Anion Gap 5 (5-15); BUN 23 mg/dL (4-19); BUN/Creat Ratio 18.2 RATIO (10-20); Calcium,Total 8.4 mg/dL (7.6-11.0); Carbon Dioxide 26.8 mmol/L (21.0-32.0); Chloride 104 mmol/L (98-108); Estimated Creatinine Clearance 64.53 ml/min (50-250); Globulin 3.3 g/dL (2.2-4.2); Glucose 74 mg/dL (70-99); Potassium 7.5 mmol/L (3.3-5.1)
[2024-10-18] MEDS: Albuterol *CONC* 2.5mg/0.5mL VIAL.NEB. 10 MG INHALATION (18:12)
[2024-10-18 18:39] LABS: Potassium 5.6 mmol/L (3.3-5.1)
--- NOTE | 2024-10-18 18:41 | HP.PCM.HOS_ITS ---
[facility] - General General Date of Service: 10/18/24 Chief Complaint: Failure to thrive HPI Narrative TOD HUNT, is a 78 F who presents from home after just being very weak, covered in urine. Was noted to have low blood sugars at home and sent to the emergency room. In the emergency room, her glucose was normal and did not receive any treatments for it but it was noted that her potassium was elevated. She had initial potassium was read as high and felt to be error so was repeated and came back at 7.5 those hemolyzed. Patient received bronchodilators, sodium bicarbonate and albuterol. Repeat potassium is currently pending. Patient had a catheter placed and urinalysis was concerning for UTI patient received ceftriaxone. Patient is cared for by her who has dementia and has what she describes as good and bad days. Yesterday he thought he was celebrating the birthday of his father who has been long . But patient is essentially bedbound does not walk for some time as she describes. [facility] Medical History Congestive heart failure (CHF) Chest pain Hypertension Migraines Contusion of right great toe without damage to nail, initial encounter CHF (congestive heart failure) CKD (chronic kidney disease), stage III Acute hypoxic respiratory failure Hypothyroidism Allergic rhinitis GERD (gastroesophageal reflux disease) Obstructive sleep apnea Hyperlipidemia Hypertension Type 2 diabetes mellitus Morbid obesity Home Medications ?Medication ?Instructions ?Recorded ?Last Taken ?Type amlodipine 5 mg tablet 5 mg PO DAILY blood pressure 05/12/16 05/12/16 08:00 History atorvastatin 20 mg tablet 20 mg PO QHS cholesterol 03/3005/11/16 22:00 History fexofenadine 180 mg tablet 180 mg PO DAILY allergies 0 05/12/16 05/12/16 08:00 History hydrocortisone 2.5 % topical cream 1 applicatio topica l BID rash 05/12/16 Unknown History insulin glargine 100 unit/mL (3 50 units subcut QHS di abetes 05/12/16 05/11/16 22:00 History mL) subcutaneous pen (Lantus Solostar U-100 Insulin) metformin 500 mg 24 hr 1,000 mg PO BIDAC diabetes 0 05/12/16 05/12/16 08:00 History tablet,extended release (gastric retention) metoprolol tartrate 50 mg tablet 50 mg PO BID blood pr essure 05/12/16 05/12/16 08:00 History magnesium oxide 400 mg (241.3 mg 400 mg PO BID supplem ent #60 05/14/16 Unknown Rx magnesium) tablet TABLETS nystatin 100,000 unit/gram topical 1 applic topical BI D yeast 05/14/16 Unknown Rx powder (Nyamyc) docusate sodium 100 mg capsule 200 mg PO BID stool sof tner 06/16/24 Unknown History pantoprazole 40 mg tablet,delayed 40 mg PO DAILY reflu x 06/16/24 Unknown History release furosemide 40 mg tablet 40 mg PO DAILY 7 days #7 tab s 06/19/24 Unknown Rx insulin aspart U-100 100 unit/mL 1 sliding scale dose subcut ACHS 06/19/24 Unknown History (3 mL) subcutaneous pen (Novolog diabetes FlexPen U-100 Insulin aspart) ergocalciferol (vitamin D2) 1,250 1,250 mcg PO QWEEK 0 10/18/24 Unknown History mcg (50,000 unit) capsule escitalopram oxalate 10 mg tablet 10 mg PO QHS 5 Unknown History glipizide 10 mg tablet 10 mg PO BID 10/18/24 Unknow n History hydroxyzine pamoate 25 mg capsule 25 mg PO DAILY PRN i tching 10/18/24 Unknown History insulin glargine-yfgn 100 unit/mL 45 unit subcut DAILY 10/18/24 Unknown History (3 mL) subcutaneous pen levothyroxine 112 mcg tablet 112 mcg PO DAILY 10/18/24 Unknown History loratadine 10 mg tablet (Allergy 10 mg PO DAILY Unknown History Relief (loratadine)) magnesium chloride 64 mg 64 mg PO DAILY 10/18/24 Unkn own History (magnesium chloride) tablet,delayed release (Mag 64) montelukast 10 mg tablet 10 mg PO DAILY 10/18/24 Unkn own History nystatin 100,000 unit/gram topical 1 applic topical DA HERNAN 10/18/24 Unknown History cream potassium chloride 10 mEq 10 meq PO BID 10/18/24 Unkno wn History tablet,extended release warfarin 5 mg tablet 7.5 mg PO DAILY 10/18/24 Unk nown History Allergy/AdvReac Type Severity Reaction Status Date / Time lisinopril Allergy Unknown Verified 10/18/24 14:48 pollen extracts Allergy Itching Verified 10/18/24 14:48 Family History Mother Diabetes Heart disease Hypertension Father Diabetes Cancer Heart disease Alzheimer dementia Surgical History History of ankle surgery S/P cholecystectomy Social History household members: spouse Smoking Status: Never smoker alcohol intake: never substance use type: does not use ROS ROS Narrative Complains of a rash under her neck, breast and inguinal area. Does have chronic lower extremity edema with the right typically being worse than the left. All review of systems were negative except as mentioned above in the history of present illness and the other review of systems. Vital Signs Vital Signs Vital Signs: 10/18/24 14:48 10/18/24 15:00 10/18/24 16:09 Temperature 36.8 C Temperature Source Oral Pulse Rate 55 L 52 L Respiratory Rate 18 17 Respiratory Effort Normal Respiratory Pattern Normal Blood Pressure 152/134 H 124/58 H Blood Pressure Mean 140 80 Pulse Ox 97 100 Oxygen Delivery Method Nasal Cannula Room Air Oxygen Flow Rate (L/min) 2 10/18/24 16:15 10/18/24 16:30 10/18/24 16:45 Temperature Temperature Source Pulse Rate 42 L 54 L 61 Respiratory Rate 20 H 19 H 15 Respiratory Effort Respiratory Pattern Blood Pressure 137/112 H 122/56 H 128/67 H Blood Pressure Mean 121 76 83 Pulse Ox 100 99 96 Oxygen Delivery Method Room Air Room Air Oxygen Flow Rate (L/min) 10/18/24 17:00 10/18/24 17:15 10/18/24 17:30 Temperature Temperature Source Pulse Rate 48 L 46 L 50 L Respiratory Rate 18 20 H 24 H Respiratory Effort Respiratory Pattern Blood Pressure 131/89 H 110/68 121/73 H Blood Pressure Mean 103 74 89 Pulse Ox 100 100 98 Oxygen Delivery Method Room Air Oxygen Flow Rate (L/min) 10/18/24 17:45 10/18/24 18:00 10/18/24 18:15 Temperature Temperature Source Pulse Rate 46 L 48 L 56 L Respiratory Rate 17 22 H 25 H Respiratory Effort Respiratory Pattern Blood Pressure 125/57 H 125/62 H Blood Pressure Mean 77 80 Pulse Ox 99 95 Oxygen Delivery Method Room Air Oxygen Flow Rate (L/min) 10/18/24 18:21 10/18/24 18:28 Temperature 37.0 C Temperature Source Pulse Rate 48 L 60 Respiratory Rate 16 12 Respiratory Effort Respiratory Pattern Blood Pressure 125/62 H Blood Pressure Mean 83 Pulse Ox 95 Oxygen Delivery Method Oxygen Flow Rate (L/min) Weight Weight: 200.3 kg Body Mass Index (BMI) 71.2 Physical Exam Const alert and no apparent distress Constitutional Narrative: Lying in bed. Pleasant. Pale. HEENT normocephalic Eyes PERRL and EOMs intact bilaterally Neck Neck Narrative: Thick neck tissue. Resp normal respiratory effort, no retractions, no use of accessory muscles and clear to auscultation bilaterally Cardio regular rate, regular rhythm, S1 normal heart sound and S2 normal heart sound GI normal to inspection, nondistended, normoactive bowel sounds, soft to palpation, non-tender and non-distended GI Narrative: Obese Extremity Extremity Narrative: 2+ lower extremity edema Skin Skin Narrative: Marked candidiasis under neck, axilla, breasts, inguinal creases. Neuro Sensorium / Orientation: awake and alert Psych affect normal Results Lab / Micro Data 10/18/24 15:20 10/18/24 18:17 Labs: Laboratory Results - last 24 hr 10/18/24 14:53: POC Glucose 99 10/18/24 15:20: WBC 9.0, RBC 4.57, Hgb 11.8 L, Hct 40.8, MCV 89.3, MCH 25.8 L, M CHC 28.9 L, RDW Std Deviation 54.3 H, RDW Coeff of Ryan 16.6 H, Plt Count 190, MPV 10.3, Immature Gran % (Auto) 0.300, Neut % (Auto) 81.4 H, Lymph % (Auto) 11.8 L, [place] % (Auto) 6.0, Eos % (Auto) 0.4, Baso % (Auto) 0.1, Absolute Neuts (auto) 7.3, Absolute Lymphs (auto) 1.06, Nucleated RBC % 0, Sodium Cancelled, Potassium Cancelled, Chloride Cancelled, Carbon Dioxide Cancelled, Anion Gap Cancelled, BUN Cancelled, Creatinine Cancelled, Estim Creat Clear Calc Cancelled, Est GFR (MDRD) Non-Af Cancelled, BUN/Creatinine Ratio Cancelled, Glucose Cancelled, Calcium Cancelled, Total Bilirubin Cancelled, AST Cancelled, ALT Cancelled, Alkaline Phosphatase Cancelled, Total Protein Cancelled, Albumin Cancelled, Globulin Cancelled, Albumin/Globulin Ratio Cancelled 10/18/24 16:00: POC Glucose 73 L 10/18/24 16:03: Sodium 136, Potassium 7.5 H*, Chloride 104, Carbon Dioxide 26.8, Anion Gap 5, BUN 23 H, Creatinine 1.27 H, Estim Creat Clear Calc 64.53, Est GFR (MDRD) Non-Af 43 L, BUN/Creatinine Ratio 18.2, Glucose 74, Calcium 8.4, Total Bilirubin 0.30, AST 33 H, ALT 5, Alkaline Phosphatase 73, Total Protein 5.5 L, A lbumin 2.2 L, Globulin 3.3, Albumin/Globulin Ratio 0.7 L 10/18/24 16:39: Urine Color Yellow, Urine Clarity Cloudy, Urine pH 6.0, Ur Specific [place] 1.020, Urine Protein 30 H, Urine Glucose (UA) Normal, Urine Ketones Negative, Urine Occult Blood 25 H, Urine Nitrite Positive H, Urine Bilirubin 1 H, Urine Urobilinogen Normal, Ur Leukocyte Esterase 500 H, Urine RBC 0-5 SEEN, Urine WBC 50-100 SEEN, Ur Squamous Epith Cells 10-25 SEEN, Urine Bacteria 1+, Urine Mucus 0 SEEN 10/18/24 18:17: Potassium 5.6 H Rhythm Strip Rhythm Strip: Sinus bradycardia Rate: 51 Ectopy: None Imaging Radiology Impression Chest X-Ray 10/18/24 15:45 IMPRESSION: Moderate cardiomegaly. Findings suggestive of mild linear atelectasis at the lung bases. Reading Location: [facility] Assessment & Plan Assessment/Plan (1) Hyperkalemia: PLAN: Possibly lab error as it is hemolyzed. Patient did receive treatment in the ED. Will repeat labs to verify further. (2) Bradycardia: PLAN: Heart rate is down to the 40s but she seemed to be asymptomatic. Will hold off on her metoprolol for now. (3) Failure to thrive: PLAN: Patient is a functional paraplegic Kindt essentially is bedbound. has dementia and unable to safely care for her. Patient will be evaluated by PT OT and case management to assist on disposition. (4) UTI (urinary tract infection): PLAN: Continue ceftriaxone. Follow-up urine culture. Reese catheter placed in the emergency room. (5) Cutaneous candidiasis: PLAN: Very marked in her neck and in the other areas of her axilla, breasts and inguinal creases. Nystatin topical as well as fluconazole given the severity and breath of these lesions. PLAN: Plan Protein calorie malnutrition: Despite patient's morbid obesity she just appears to be very under nourished. Will add supplements and have nutrition evaluate her. Chronic kidney disease stage III Hypothyroidism: Continue levothyroxine GERD: Continue PPI Obesity class III: Complicates care and recovery Diabetes mellitus type 2: Patient was noted to be hypoglycemic prior to presentation. Patient is on glipizide, metformin, and glargine. Will hold those for now. But once we get further clarification about how her blood sugars will continue to do then we could slowly introduce her insulin back in. A-fib: In sinus bradycardia rate now. Holding off on metformin given the bradycardia. Check an INR. Resume warfarin if INR is not supratherapeutic. JAYA: Continue with home CPAP. VTE prophylaxis with enoxaparin until INR is greater than 2. CODE STATUS: Addressed with the patient. Patient wishes to be full code. Given the patient's is demented I did verify that she does have a son who cares for her and would be available to contact in regards to an event where if she were to require being put on life support. Charges/Coding Visit Charges Inpatient E&M: 30850 Init Hosp L3
--- OUTSIDE RECORDS SUMMARY | 2024-10-18 19:22 | XMS RPT_ITS | CCD ---
Author Organization [facility] Care Team Providers Care Utility Sales Representative Name Role Phone ЕКАТЕРИНА BARTLETT Unavailable Unavailable MARQUES TORRES Unavailable UnavailMARQUES Lucio Unavailable Unavailabl ЕКАТЕРИНА Murphy Unavailable Unavailable ЕКАТЕРИНА BARTLETT Unavailable Unavailable UNKNOWN, REFERR Unavailable Unavailable [facility] Unavailable Unavailable ЕКАТЕРИНА BARTLETT Unavailable Unavailable CHARLOTTE HYMAN Unavailable Unavailable ЕКАТЕРИНА BARTLETT Unavailable Unavailable Crys ROSS, Dr. Crowell Primary Care Provider Dr. Gabriel Rucker DO Emergency Provider [phone] Brionna ROSS, Dr. Estela Ca Attending Provider Brionna ROSS, Dr. Estela Ca Admit Provider Brionna ROSS, Dr. Estela Ca Other Provider Sherly MCLEAN, Dr. Whipple Other Provider Pio ROSS, Dr. Corrales Attending Provider Dr. Azam Montgomery MD Other Provider [phone] Shun Luciano MD Attending Provider [phone] Ulises ROSS, Dr. Nascimento Attending Provider Pio ROSS, Dr. Corrales Other Provider Azam Montgomery Referring Unavailable Shun Luciano Attending Unavailable Socrates Spangler Primary Care Unavailable Socrates Spangler Primary Care Unavailable Estela Staton Attending Unavailable Socrates Spangler Primary Care Unavailable Estela Staton Admitting Unavailable Estela Staotn Consulting Unavailable Savanna Suero Attending Unavailable Sarabjit Dubois Consulting Unavailable Azam Montgomery Consulting Unavailable Socrates Spangler Primary Care Unavailable Shun Luciano Attending Unavailable Estela Staotn L Consulting Unavailable Estela Staton L Admitting Unavailable Savanna Suero Attending Unavailable Spangler, Socrates Primary Care Unavailable Sarabjit Dubois Consulting Unavailable Azam Montgomery Consulting Unavailable Savanna Suero Consulting Unavailable Azam Montgomery Attending Unavailable Allergies Allergy Classification Reported Allergen(s) Allergy Type Date of Onset Reaction(s) Facility (5 sources) lisinopril; Translations: [LISINOPRIL] Drug Allergy 2 AOF, Unknown [facility] Repository (1 source) Pollen; Translations: [POLLEN] Propensity to adverse reactions (disorder) 3 AOF [facility] Repository (1 source) SMOKE; Translations: [SMOKE] Propensity to adverse reactions (disorder) 6 AOF [facility] Repository (2 sources) Pollen Allergy to substance 7 Itching [facility] (1 source) Pollen Drug allergy (disorder) 7 [facility] Repository Medications Current Medications Medication Drug Class(es) Dates Sig (Normalized) Sig (Original) amLODIPine 5 mg oral tablet (2 sources) Dihydropyridine Calcium Channel Kevin Start: 05-12-2016 take 1 tablet by mouth once daily Amlodipine 5 MG tablet Active 5 mg PO DAILY May 12, 2016 1:00am amoxicillin 875 mg / clavulanate 125 mg oral tablet (1 source) Penicillin-class Antibacterial Start: 06-19-2024 Amoxicillin-Pot Clavulanate 875-125 mg tablet Active 1 {tbl} PO TWICE A DAY 4 June 19, 2024 12:00am apixaban 5 mg oral tablet (1 source) Factor Xa Inhibitor Start: 06-19-2024 take 1 tablet by mouth twice daily Apixaban (Eliquis) 5 mg Tablet Active 5 mg PO TWICE A DAY 60 June 19, 2024 12:00am atorvastatin 20 mg oral tablet (2 sources) HMG-CoA Reductase Inhibitor Start: 05-12-2016 take 1 tablet by mouth at bedtime Atorvastatin 20 MG tablet Active 20 mg PO AT BEDTIME May 12, 2016 1:00am docusate sodium 100 mg oral capsule (3 sources) Start: 05-14-2016 End: 06-16-2024 take 2 capsules by mouth twice daily Docusate Sodium 100 MG capsule Active 200 mg PO TWICE A DAY June 16, 2024 12:00am fexofenadine hydrochloride 180 mg oral tablet (2 sources) Histamine-1 Receptor Antagonist Start: 05-12-2016 take 1 tablet by mouth once daily Fexofenadine 180 MG tablet Active 180 mg PO DAILY May 12, 2016 1:00am furosemide 40 mg oral tablet (3 sources) Loop Diuretic Start: 06-19-2024 take 1 tablet by mouth once daily Furosemide 40 mg Tablet Active 40 mg PO DAILY 7 7 June 19, 2024 12:00am Start: 05-12-2016 End: 05-14-2016 Furosemide 40 MG tablet Disc ontinued 20 mg PO DAILY May 12, 2016 1:00am May 14, 2016 9:35am hydroCHLOROthiazide 25 mg / losartan potassium 100 mg oral tablet (2 sources) Thiazide Diuretic, Angiotensin 2 Receptor Kevin Start: 05-12-2016 Losartan-Hydrochlorothiazide (Hyzaar) 1 TAB tablet Active 1 {tbl} PO DAILY May 12, 2016 1:00am On Hold: Resume on 06/27/24. hydrocortisone 25 mg/ml topical cream (2 sources) Corticosteroid Start: 05-12-2016 Hydrocortisone 1 APPLIC crea m Active 1 APPLICATIO TOPICAL TWICE A DAY May 12, 2016 1:00am 3 ml insulin aspart, human 100 unt/ml pen injector (3 sources) Insulin Analog Start: 05-14-2016 End: 06-19-2024 Insulin Aspart U-100 (Novolo g Flexpen U-100 Insulin) 100 UNITS/ML insulin pen Active 1 sliding scale dose SC BEFORE MEALS AND AT BEDTIME June 19, 2024 12:00am 3 ml insulin glargine 100 unt/ml pen injector (2 sources) Insulin Analog Start: 05-12-2016 Insulin Glargine (Lantus Solostar U-100 Insulin) 100 UNITS/ML insulin pen Active 50 U SC AT BEDTIME May 12, 2016 1:00am levothyroxine sodium 0.1 mg oral tablet (2 sources) l-Thyroxine Start: 05-12-2016 take 1 tablet by mouth once daily Levothyroxine 100 MCG tablet Active 100 ug PO DAILY May 12, 2016 1:00am magnesium oxide 400 mg oral tablet (2 sources) Start: 05-14-2016 take 1 tablet by mouth twice daily Magnesium Oxide 400 MG tablet Active 400 mg PO TWICE A DAY 60 May 14, 2016 1:00am modified 24 hr metFORMIN hydrochloride 500 mg extended release oral tablet (2 sources) Biguanide Start: 05-12-2016 take 1 tablet by mouth twice daily before mealtime Metformin 500 MG tablet,ER rozina.retention 24 hr Active 1000 mg PO TWICE DAILY BEFORE MEALS May 12, 2016 1:00am metoprolol tartrate 50 mg oral tablet (2 sources) beta-Adrenergic Kevin Start: 05-12-2016 take 1 tablet by mouth twice daily Metoprolol Tartrate 50 MG tablet Active 50 mg PO TWICE A DAY May 12, 2016 1:00am nystatin 100 unt/mg topical powder (2 sources) Polyene Antifungal Start: 05-14-2016 Nystatin (Nyamyc) 1 APPLIC bottle Active 1 NMA TOPICAL TWICE A DAY May 14, 2016 1:00am omeprazole 40 mg delayed release oral capsule (1 source) Proton Pump Inhibitor Start: 05-12-2016 take 1 capsule by mouth once daily Omeprazole (Prilosec) 40 MG capsule Active 40 mg PO DAILY May 12, 2016 1:00am oxyCODONE hydrochloride 5 mg oral tablet (2 sources) Opioid Agonist Start: 05-14-2016 take 1 tablet by mouth every four hours as needed for pain Oxycodone 5 MG tablet Active 5 mg PO EVERY 4 HOURS NEEDED as needed for Moderate Pain (pain scale 4-5) May 14, 2016 1:00am pantoprazole 40 mg delayed release oral tablet (1 source) Proton Pump Inhibitor Start: 06-16-2024 take 1 tablet by mouth once daily Pantoprazole 40 mg tablet,delayed release (DR/EC) Active 40 mg PO DAILY June 16, 2024 12:00am microencapsulated potassium chloride 10 meq extended release oral tablet (2 sources) Start: 05-12-2016 take 1 tablet by mouth twice daily Potassium Chloride 10 MEQ tablet Active 10 meq PO TWICE A DAY May 12, 2016 1:00am predniSONE 20 mg oral tablet (1 source) Start: 06-19-2024 take 2 tablets by mouth once daily Prednisone 20 mg tablet Active 40 mg PO DAILY 10 June 19, 2024 12:00am Completed/Discontinued Medications Medication Drug Class(es) Dates Sig (Normalized) Sig (Original) acetaminophen 325 mg / HYDROcodone bitartrate 5 mg oral tablet (2 sources) Opioid Agonist Start: 09-27-2018 End: 10-08-2018 Hydrocodone-Acetam inophen 1 EACH tablet Discontinued 1 NMA PO EVERY 6 HOURS NEEDED as needed for Pain 10 September 27, 2018 September 30, 2018 12:00am October 08, 2018 12:08am 0.4 ml enoxaparin sodium 100 mg/ml prefilled syringe (2 sources) Low Molecular Weight Heparin Start: 05-14-2016 End: 06-16-2024 Enoxaparin 40 MG/0.4 ML syringe Discontinued 40 mg SC TWICE A DAY May 14, 2016 1:00am June 16, 2024 4:11pm glimepiride 2 mg oral tablet (2 sources) Sulfonylurea Start: 05-12-2016 End: 05-14-2016 take 1 tablet by mouth twice daily Glimepiride 2 MG tablet Discontinued 2 mg PO TWICE A DAY May 12, 2016 1:00am May 14, 2016 9:34am montelukast 10 mg oral tablet (2 sources) Leukotriene Receptor Antagonist Start: 05-12-2016 End: 06-15-2024 take 1 tablet by mouth at bedtime Montelukast (Singulair) 10 MG tablet Discontinued 10 mg PO AT BEDTIME May 12, 2016 1:00am June 15, 2024 10:02pm traZODone hydrochloride 50 mg oral tablet (2 sources) Serotonin Reuptake Inhibitor Start: 05-12-2016 End: 05-14-2016 take 1 tablet by mouth at bedtime Trazodone 50 MG tablet Discontinued 50 mg PO AT BEDTIME May 12, 2016 1:00am May 14, 2016 9:34am Problems Active Problems Problem Classification Problem Date Documented Da te Episodic/Chronic Anxiety disorders (1 source) Anxiety disorder, unspecified; Translations: [ANXIETY DISORDER UNSPECI] Onset: 05-24-2016 Chronic Cardiac dysrhythmias (1 source) Paroxysmal atrial fibrillation; Translations: [PAROXYSMAL ATRIAL FIBRIL] Onset: 05-24-2016 Chronic Chronic obstructive pulmonary disease and bronchiectasis (1 source) Chronic obstructive pulmonary disease, unspecified; Translations: [COPD UNSPECIFIED] Onset: 05-24-2016 Chronic Congestive heart failure; nonhypertensive (4 sources) Congestive heart failure; Translations: [Heart failure, unspecified] 06-13-2024 Chronic Deficiency and other anemia (1 source) Anemia in other chronic diseases classified elsewhere; Translations: [ANEMIA IN OTH CHRONIC DZ] Onset: 05-24-2016 Chronic Diabetes mellitus with complications (1 source) Type 2 diabetes mellitus with hyperglycemia; Translations: [Type 2 diabetes mellitus with hyperglycemia] Onset: 09-10-2016 Chronic Diabetes mellitus without complication (3 sources) Type 2 diabetes mellitus without complications; Translations: [Type 2 diabetes mellitus] Onset: 05-24-2016 06-13-2024 Chronic Disorders of lipid metabolism (2 sources) Hyperlipidemia; Translations: [Hyperlipidemia, unspecified] 06-13-2024 Chronic E Codes: Fall (2 sources) Fall; Translations: [Unspecified fall, initial encounter] 05-12-2016 Episodic Essential hypertension (3 sources) Essential (primary) hypertension; Translations: [Hypertensive disorder] Onset: 05-24-2016 06-13-2024 Chronic External Injury - Fall (1 source) Fall from non-moving wheelchair, initial encounter; Translations: [FALL NON-MOVING WHEELCHA] Onset: 05-24-2016 Fracture of lower limb (6 sources) Other fracture of right lower leg, subsequent encounter for closed fracture with routine healing; Translations: [Displaced bimalleolar fracture of right lower leg, initial encounter for closed fracture] Onset: 05-24-2016 05-12-2016 Episodic Osteoarthritis (1 source) Unspecified osteoarthritis, unspecified site; Translations: [UNSPECIFIED OSTEOARTHRIT] Onset: 05-24-2016 Chronic Osteoporosis (1 source) Age-related osteoporosis without current pathological fracture; Translations: [AGE-REL OSTEOPOR W/O CUR] Onset: 05-24-2016 Chronic Other lower respiratory disease (4 sources) Hypoxia; Translations: [Hypoxemia] 06-13-2024 Episodic Other lower respiratory disease (1 source) Shortness of breath; Translations: [Shortness of breath] Onset: 09-10-2024 Episodic Other nervous system disorders (1 source) Other chronic pain; Translations: [OTHER CHRONIC PAIN] Onset: 05-24-2016 Chronic Other nutritional; endocrine; and metabolic disorders (4 sources) Morbid (severe) obesity due to excess calories; Translations: [Other disorders of phosphorus metabolism] Onset: 05-24-2016 Chronic Other nutritional; endocrine; and metabolic disorders (2 sources) Morbid obesity; Translations: [Morbid (severe) obesity due to excess calories] 06-13-2024 Chronic Pneumonia (except that caused by tuberculosis or sexually transmitted disease) (4 sources) Pneumonia; Translations: [Pneumonia, unspecified organism] 06-13-2024 Episodic Residual codes; unclassified (2 sources) Obstructive sleep apnea syndrome; Translations: [Obstructive sleep apnea (adult) (pediatric)] 06-13-2024 Chronic Respiratory failure; insufficiency; arrest (1 source) Chronic respiratory failure, unspecified whether with hypoxia or hypercapnia; Translations: [CHR RESP FAIL UNS HYPOX/] Onset: 05-24-2016 Chronic Respiratory failure; insufficiency; arrest (adult) (9 sources) Acute respiratory failure; Translations: [Acute respiratory failure with hypoxia] Onset: 06-20-2024 06-13-2024 Episodic Superficial injury; contusion (3 sources) Contusion of right great toe; Translations: [Contusion of right great toe without damage to nail, initial encounter] Onset: 06-20-2024 06-17-2024 Episodic Thyroid disorders (1 source) Hypothyroidism, unspecified; Translations: [HYPOTHYROIDISM UNSPECIFI] Onset: 05-24-2016 Chronic Unclassified (2 sources) Body mass index (BMI) 70 or greater, adult; Translations: [Obstructive sleep apnea (adult) (pediatric)] Onset: 05-24-2016 Chronic Unclassified (1 source) Unknown / UNK(Unknown) Onset: 10-22-2016 Unclassified (1 source) Office was closed for lunch when we tried to schedule an appointment please call the office to schedule your appointment. 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 06/19/24 0820 Performed By: #### L 501.080 #### [facility] [address] [place], [address] Calcium [Mass/Vol] 9.0 mg/dL Normal 7.6-11.0 [facility] Comment on above: Order Comment: REDRA W. PREVIOUS SPECIMEN REJECTED DUE TOHEMOLYSIS. 06/19/24819 Performed By: #### L 501.080 #### [facility] [address] [place], [address] Chloride [Moles/Vol] 99 mmol/L Normal 98-108 [facility] Comment on above: Order Comment: REDRA W. PREVIOUS SPECIMEN REJECTED DUE TOHEMOLYSIS. 06/19/24819 Performed By: #### L 501.080 #### [facility] [address] [place], [address] CO2 [Moles/Vol] 31.7 mmol/L Normal 21.0-32.0 [facility] Comment on above: Order Comment: REDRA W. PREVIOUS SPECIMEN REJECTED DUE TOHEMOLYSIS. 06/19/24819 Performed By: #### L 501.080 #### [facility] [address] [place], [address] Creatinine [Mass/Vol] 1.28 mg/dL High 0.70-1.20 [facility] Comment on above: Order Comment: REDRA W. PREVIOUS SPECIMEN REJECTED DUE TOHEMOLYSIS. 06/19/24819 Performed By: #### L 501.080 #### [facility] [address] [place], [address] ECRCL 58.45 ml/min Normal 50-250 [facility] Comment on above: Order Comment: REDRA W. PREVIOUS SPECIMEN REJECTED DUE TOHEMOLYSIS. 06/19/24819 Performed By: #### L 501.080 #### [facility] [address] [place], [address] GAP 10 Normal 5-15 [facility] Comment on above: Order Comment: REDRA W. PREVIOUS SPECIMEN REJECTED DUE TOHEMOLYSIS. 06/19/24819 Performed By: #### L 501.080 #### [facility] [address] [place], [address] GFR/1.73 sq M.predicted among non-blacks MDRD (S/P/Bld) [Vol rate/Area] 42 mL/min/{1.73_m2} Low >60 [facility] Comment on above: Order Comment: REDRA W. PREVIOUS SPECIMEN REJECTED DUE TOHEMOLYSIS. 06/19/24819 Result Comment: mL/m in/1.73m2 CKD-EPI Creatinine Equation (2020) Performed By: #### L 501.080 #### [facility] [address] [place], [address] Glucose [Mass/Vol] 189 mg/dL High 70-99 [facility] Comment on above: Order Comment: REDRA W. PREVIOUS SPECIMEN REJECTED DUE TOHEMOLYSIS. 06/19/24819 Performed By: #### L 501.080 #### [facility] [address] [place], [address] Potassium [Moles/Vol] 3.5 mmol/L Normal 3.3-5.1 [facility] Comment on above: Order Comment: REDRA W. PREVIOUS SPECIMEN REJECTED DUE TOHEMOLYSIS. 06/19/24819 Result Comment: Hemo lysis present, Results??could be affected. ?? Performed By: #### L 501.080 #### [facility] [address] [place], [address] Sodium [Moles/Vol] 141 mmol/L Normal 133-145 [facility] Comment on above: Order Comment: REDRA W. PREVIOUS SPECIMEN REJECTED DUE TOHEMOLYSIS. 06/19/24819 Performed By: #### L 501.080 #### [facility] [address] [place], [address] Urea nitrogen [Mass/Vol] 47 mg/dL High 4-19 [facility] Comment on above: Order Comment: REDRA W. PREVIOUS SPECIMEN REJECTED DUE TOHEMOLYSIS. 06/19/24819 Performed By: #### L 501.080 #### [facility] [address] [place], [address] BUN Normal 4-19 [facility] Comment on above: Result Comment: This specimen has been REJECTED due to Laboratory criteria: Hemolyzed. LAB has been notified of need of recollection. 06/19/24818 Siomara Clapper Performed By: #### L 500.2500, L100.0100 #### [facility] [address] [place], [address] BUN/CRE Normal 10-20 [facility] Comment on above: Result Comment: This specimen has been REJECTED due to Laboratory criteria: Hemolyzed. LAB has been notified of need of recollection. 06/19/24818 Siomara Clapper Performed By: #### L 500.2500, L100.0100 #### [facility] [address] [place], [address] Calcium Normal 7.6-11.0 [facility] Comment on above: Result Comment: This specimen has been REJECTED due to Laboratory criteria: Hemolyzed. LAB has been notified of need of recollection. 06/19/24818 Siomara Clapper Performed By: #### L 500.2500, L100.0100 #### [facility] [address] [place], [address] CL Normal 98-108 [facility] Comment on above: Result Comment: This specimen has been REJECTED due to Laboratory criteria: Hemolyzed. LAB has been notified of need of recollection. 06/19/24818 Siomara Clapper Performed By: #### L 500.2500, L100.0100 #### [facility] [address] [place], [address] CO2 Normal 21.0-32.0 [facility] Comment on above: Result Comment: This specimen has been REJECTED due to Laboratory criteria: Hemolyzed. LAB has been notified of need of recollection. 06/19/24818 Siomara Clapper Performed By: #### L 500.2500, L100.0100 #### [facility] [address] [place], [address] CREAT,SERUM Normal 0.70-1.20 [facility] Comment on above: Result Comment: This specimen has been REJECTED due to Laboratory criteria: Hemolyzed. LAB has been notified of need of recollection. 06/19/24818 Siomara Clapper Performed By: #### L 500.2500, L100.0100 #### [facility] [address] [place], [address] eGFR Normal >60 [facility] Comment on above: Result Comment: This specimen has been REJECTED due to Laboratory criteria: Hemolyzed. LAB has been notified of need of recollection. 06/19/24818 Siomara Clapper Performed By: #### L 500.2500, L100.0100 #### [facility] [address] [place], [address] GAP Normal 5-15 [facility] Comment on above: Result Comment: This specimen has been REJECTED due to Laboratory criteria: Hemolyzed. LAB has been notified of need of recollection. 06/19/24818 Siomara Clapper Performed By: #### L 500.2500, L100.0100 #### [facility] [address] [place], [address] GLU Normal 70-99 [facility] Comment on above: Result Comment: This specimen has been REJECTED due to Laboratory criteria: Hemolyzed. LAB has been notified of need of recollection. 06/19/24818 Siomara Clapper Performed By: #### L 500.2500, L100.0100 #### [facility] [address] [place], [address] Potassium Normal 3.3-5.1 [facility] Comment on above: Result Comment: This specimen has been REJECTED due to Laboratory criteria: Hemolyzed. LAB has been notified of need of recollection. 06/19/24818 Siomara Clapper Performed By: #### L 500.2500, L100.0100 #### [facility] [address] [place], [address] Basic Metabolic Profile (BMP) Normal 133-145 [facility] Comment on above: Result Comment: This specimen has been REJECTED due to Laboratory criteria: Hemolyzed. LAB has been notified of need of recollection. 06/19/24818 Siomara Clapper Performed By: #### L 500.2500, L100.0100 #### [facility] [address] [place], [address] Bedside Glucoseon 06-19-2024 FINGERSTICK GLU 267 mg/dL High 74-106 [facility] Comment on above: Result Comment: ALEXIS GEMENT OF PATIENT CARE PER NURSING PROTOCOL Performed By: #### L 500.2500, L100.0100 #### [facility] [address] [place], [address] FINGERSTICK GLU 233 mg/dL High 74-106 [facility] Comment on above: Result Comment: ALEXIS GEMENT OF PATIENT CARE PER NURSING PROTOCOL Performed By: #### L 500.2500, L100.0100 #### [facility] [address] [place], [address] FINGERSTICK GLU 176 mg/dL High 74-106 [facility] Comment on above: Result Comment: ALEXIS GEMENT OF PATIENT CARE PER NURSING PROTOCOL Performed By: #### L 500.2500, L100.0100 #### [facility] [address] [place], [address] CBC-Complete Blood Cnt No Di ffon 06-19-2024 Erythrocyte distribution width (RBC) [Ratio] 14.3 % Normal 11.6-14.6 [facility] Comment on above: Performed By: #### L 500.2500, L100.0100 #### [facility] [address] [place], [address] Hematocrit (Bld) [Volume fraction] 51.3 % High 37-47 [facility] Comment on above: Performed By: #### L 500.2500, L100.0100 #### [facility] [address] [place], [address] Hemoglobin (Bld) [Mass/Vol] 16.0 g/dL High 12.0-15.0 [facility] Comment on above: Performed By: #### L 500.2500, L100.0100 #### [facility] [address] [place], [address] MCH (RBC) [Entitic mass] 28.0 pg Normal 27.0-32.0 [facility] Comment on above: Performed By: #### L 500.2500, L100.0100 #### [facility] [address] [place], [address] MCHC (RBC) [Mass/Vol] 31.2 g/dL Low 32-36 [facility] Comment on above: Performed By: #### L 500.2500, L100.0100 #### [facility] [address] [place], [address] MCV (RBC) [Entitic vol] 89.8 fL Normal 81-[address] [facility] Comment on above: Performed By: #### L 500.2500, L100.0100 #### [facility] [address] [place], [address] Platelet mean volume (Bld) [Entitic vol] 9.3 fL Normal 6.2-12.0 [facility] Comment on above: Performed By: #### L 500.2500, L100.0100 #### [facility] [address] [place], [address] Platelets (Bld) [#/Vol] 145 10*3/uL Low 150-450 [facility] Comment on above: Performed By: #### L 500.2500, L100.0100 #### [facility] [address] [place], [address] RBC (Bld) [#/Vol] 5.71 10*6/uL High 4.2-5.4 [facility] Comment on above: Performed By: #### L 500.2500, L100.0100 #### [facility] [address] [place], [address] RDW SD 47.0 fl High 35.1-43.9 [facility] Comment on above: Performed By: #### L 500.2500, L100.0100 #### [facility] [address] [place], [address] WBC (Bld) [#/Vol] 9.7 10*3/uL Normal 4.4-11.0 [facility] Comment on above: Performed By: #### L 500.2500, L100.0100 #### [facility] [address] [place], [address] Carbon dioxide, total [Moles /volume] in Central venous bloodOrdered By: Savanna Suero on 06-19-2024 CO2 [Moles/Vol] 31.7 mmol/L 21.0-32.0 [facility] Chloride assayOrdered By: Amauri Suero on 06-19-2024 Chloride [Moles/Vol] 99 mmol/L 98-108 [facility] Culture, Blood (WB)on 2024 CUB COLLECTION SITE: L C HEST Blood cultures x2, from two different sites No growth in 5 days. Normal [facility] Comment on above: Performed By: #### L 500.2500, L100.0100 #### [facility] [address] [place], [address] Discharge Instructionon Discharge Instruction [facility] Medical Records Department [address] [place] [address] Instructions for Home/Discharge Instructions 06/19/24 1259 MR#: [id number] Acct: [id number] Name: TOD HUNT Rep #: [id number] : 1945 78 From: Savanna Suero MD PCP: Dr. Socrates Spangler MD Status:ADM IN Discharge Instructions Diet Discharge Diet: - (DASH diet) DC O2, CPAP, BIPAP needs Home O2 Discharge instructions: Yes Type of respiratory needs?: Oxygen (2) Oxygen frequency: Continuous Continuous oxygen liters per minute: 2 and CPAP CPAP oxygen liters per minute: 2 CPAP instructions: EPAP/CPAP 12 Dressing / Incision Discharge Activity: - (Increase activity as tolerated) Follow Up Care Test Results: Test results from this visit will be discussed in further detail at your follow-up appointment, if applicable. Discharge Plan Admission Admit Date/Time: 06/13/24 21:28 Primary Reason for Your Visit: Shortness of breath Attending Provider: Savanna Suero Primary Care Provider: Socrates Spangler Consulting Providers: Estela Staton; Sarabjit Dubois; Azam Montgomery Instructions Patient Instructions: Pneumonia Community Acquired Additional Instructions / Restrictions: DISCHARGE INSTRUCTIONS PLEASE READ *Please take this with you to your next doctors appointment* - It is advised you take Lasix 40 mg by mouth daily for the next 7 days, once you have completed this resume your losartan???hydrochloroth iazide. -It is advised you follow closely with your primary care physician so they can assess whether you will need to continue Lasix -Please call your primary care provider's office upon discharge to schedule a hospital follow up within 1 week. -Would recommend lab work (BMP) to check your kidney function potassium in 3 to 5 days through your primary care physician's office. Please call their office upon discharge to obtain order for lab work. -You will be discharged on an additional 5 days of prednisone 40 mg -You will be discharged another 2 days of antibiotics, Augmentin, which you will take twice daily - You will need to follow-up closely with your outpatient physician who manages your CPAP so that a new sleep study can be coordinated -You will be discharged on 2 L of home oxygen -You were noted to have an abnormal heart rhythm, atrial fibrillation, during admission, you will continue your metoprolol and Eliquis has been added to your regimen -For any concerning signs or symptoms please call 911 or proceed to the nearest emergency department Discharge Orders/Prescriptions Prescriptions: New Eliquis 5 mg Tablet 5 mg PO BID 30 Days Qty: 60 0RF amoxicillin-pot clavulanate 875-125 mg tablet 1 tab PO BID 2 Days Qty: 4 0RF furosemide 40 mg Tablet 40 mg PO DAILY 7 Days Qty: 7 0RF prednisone 20 mg tablet 40 mg PO DAILY 5 Days Qty: 10 0RF Continued atorvastatin 20 MG tablet 20 mg PO QHS Patient Comments: cholesterol fexofenadine 180 MG tablet 180 mg PO DAILY Patient Comments: allergies amlodipine 5 MG tablet 5 mg PO DAILY Patient Comments: blood pressure levothyroxine 100 MCG tablet 100 mcg PO DAILY Patient Comments: thyroid metoprolol tartrate 50 MG tablet 50 mg PO BID Patient Comments: blood pressure potassium chloride 10 MEQ tablet 10 meq PO BID Patient Comments: supplement metformin 500 MG tablet,ER rozina.retention 24 hr 1,000 mg PO BIDAC insulin glargine [Lantus Solostar U-100 Insulin] 100 UNITS/ML insulin pen 50 units subcut QHS Patient Comments: diabetes hydrocortisone 1 APPLIC cream 1 applicatio topical BID nystatin [Nyamyc] 1 APPLIC bottle 1 applic topical BID 0RF oxycodone 5 MG tablet 5 mg PO Q4H PRN PRN (Reason: Moderate Pain (pain scale 4-5)) Qty: 20 0RF insulin aspart U-100 [Novolog FlexPen U-100 Insulin] 100 UNITS/ML insulin pen 0 units subcut ACHS 0RF magnesium oxide 400 MG tablet 400 mg PO BID Qty: 60 0RF docusate sodium 100 MG capsule 200 mg PO BID pantoprazole 40 mg tablet,delayed release (DR/EC) 40 mg PO DAILY Held losartan-hydrochlorothia zide [Hyzaar] 1 TAB tablet 1 tab PO DAILY Hold Instructions: Resume on 06/27/24. Patient Comments: blood pressure Referrals / Follow Up: Socrates Spangler MD [Primary Care Provider] - Within 1 Week [place],Sarabjit, DPM [Med Staff - Active Staff] - Disposition Disposition (needs filled in before D/C Order can be placed): Home, Self Care 06/19/24 1311 Savanna Suero MD CC: DPMike Dubois; Dr. Estela Staton MD; Dr. Socrates Spangler MD; Dr. Azam Montgomery MD Signed Normal [facility] Erythrocyte distribution wid th (RBC) [Ratio]Ordered By: Savanna Suero on 06-19-2024 Erythrocyte distribution width (RBC) [Entitic vol] 47.0 fL High 35.1-43.9 [facility] Erythrocyte distribution wid th ratioOrdered By: Savanna Suero on 06-19-2024 Erythrocyte distribution width (RBC) [Ratio] 14.3 % 11.6-14.6 [facility] Estimation of creatinine alex aranceOrdered By: Savanna Suero on 06-19-2024 Estimated Creatinine Clearance Calc 58.45 ml/min 50-250 [facility] GFR/1.73 sq M.predicted bradford g non-blacks MDRD (S/P/Bld) [Vol rate/Area]Ordered By: Savanna Suero on 06-19-2024 Estimated GFR (MDRD) Non-Af Amer 42 Low >60 [facility] Comment on above: mL/min/1.73m2 CKD-EP I Creatinine Equation (2020) Glucose measurement at bedsi deOrdered By: Savanna Suero on 06-19-2024 Bedside Glucose (Misc Panel) 267 mg/dL High 74-106 [facility] Comment on above: MANAGEMENT OF PATIEN T CARE PER NURSING PROTOCOL Hematocrit Auto (Bld) [Volum e fraction]Ordered By: Savanna Suero on 06-19-2024 Hematocrit (Bld) [Volume fraction] 51.3 % High 37-47 [facility] Hemoglobin measurementOrdere d By: Savanna Suero on 06-19-2024 Hemoglobin (Bld) [Mass/Vol] 16.0 g/dL High 12.0-15.0 [facility] MCV (mean corpuscular volume ) determinationOrdered By: Savanna Suero on 06-19-2024 MCV (RBC) [Entitic vol] 89.8 fL 81-[address] [facility] Magnesiumon 06-19-2024 Magnesium [Mass/Vol] 1.7 mg/dL Normal 1.5-2.2 [facility] Comment on above: Order Comment: RED W. PREVIOUS SPECIMEN REJECTED DUE TOHEMOLYSIS. 06/19/24819 Performed By: #### L 501.080 #### [facility] [address] [place], [address] Magnesium [Mass/Vol] 2.0 mg/dL Normal 1.5-2.2 [facility] Comment on above: Order Comment: This specimen has been REJECTED due to Laboratory criteria:Hemolyzed.LAB has been notified of need of recollection.06/19/24818 Siomara Clapper Result Comment: This specimen has been REJECTED due to Laboratory criteria: Hemolyzed. LAB has been notified of need of recollection. 06/19/24818 Siomara Clapper Performed By: #### L 500.2500, L100.0100 #### [facility] [address] [place] [place], [address] Magnesium (Unsp spec) [Mass/ Vol]Ordered By: Savanna Suero on 06-19-2024 Magnesium [Mass/Vol] 1.7 mg/dL 1.5-2.2 [facility] Mean corpuscular hemoglobin (MCH) determinationOrdered By: Savanna Suero on 06-19-2024 MCH (RBC) [Entitic mass] 28.0 pg 27.0-32.0 [facility] Mean corpuscular hemoglobin concentration (MCHC) determinationOrdered By: Savanna Suero on 06-19-2024 MCHC (RBC) [Mass/Vol] 31.2 g/dL Low 32-36 [facility] Mean platelet volume determi nationOrdered By: Savanna Suero on 06-19-2024 Platelet mean volume (Bld) [Entitic vol] 9.3 fL 6.2-12.0 [facility] Platelet countOrdered By: Amauri Suero on 06-19-2024 Platelets (Bld) [#/Vol] 145 10*3/uL Low 150-450 [facility] Potassium (Unsp spec) [Mass/ Vol]Ordered By: Savanna Suero on 06-19-2024 Potassium [Moles/Vol] 3.5 mmol/L 3.3-5.1 [facility] Comment on above: Hemolysis present, R esults could be affected. RBC Auto (Bld) [#/Vol]Ordere d By: Savanna Suero on 06-19-2024 RBC (Bld) [#/Vol] 5.71 10*6/uL High 4.2-5.4 [facility] Serum creatinine measurement (mass/volume)Ordered By: Savanna Suero on 06-19-2024 Creatinine [Mass/Vol] 1.28 mg/dL High 0.70-1.20 [facility] Serum glucose measurement (m ass/volume)Ordered By: Savanna Suero on 06-19-2024 Glucose [Mass/Vol] 189 mg/dL High 70-99 [facility] Serum or plasma calcium kezia urement (mass/volume)Ordered By: Savanna Suero on 06-19-2024 Calcium [Mass/Vol] 9.0 mg/dL 7.6-11.0 [facility] Serum or plasma urea nitroge n measurement (mass/volume)Ordered By: Savanna Suero on 06-19-2024 Urea nitrogen [Mass/Vol] 47 mg/dL High 4-19 [facility] Sodium levelOrdered By: Memo Suero on 06-19-2024 Sodium [Moles/Vol] 141 mmol/L 133-145 [facility] White blood cell (WBC) count Ordered By: Savanna Suero on 06-19-2024 WBC (Bld) [#/Vol] 9.7 10*3/uL 4.4-11.0 [facility] 12 Lead EKGon 06-18-2024 12 Lead EKG [facility] [address] [place] [address] 12 Lead EKG 06/18/24 0728 MR#: [id number] Acct: [id number] Name: TOD HUNT Rep #: [id number] : 1945 78 From: Shun Luciano MD Attending Dr: Dr. Savanna Suero MD Status: ADM IN Ordering Dr: Estela Staton MD Date: 06/18/24 Location: U Sex: F C Admitted: 06/13/24 Test Reason : AF Blood Pressure : */* mmHG Vent. Rate : 60 BPM Atrial Rate : 60 BPM P-R Int : 172 ms QRS Dur : 112 ms QT Int : 762 ms P-R-T Axes : 49 -29 34 degrees QTcB Int : 762 ms Critical Test Result: Long QTc Sinus rhythm with Premature atrial complexes Nonspecific ST and T wave abnormality Abnormal ECG When compared with ECG of 17-Jun-2024 23:22, MANUAL COMPARISON REQUIRED DATA IS UNCONFIRMED Confirmed by LAUREN ROSS, SHUN ([id number]), editor newspaper SHRUTI QUINTERO ([id number]) on 06/18/2024 2:02:00 PM Referred By: ULISES Confirmed By: SHUN LUCIANO MD 06/18/241401 Date Shun Luciano MD CC: Dr. Estela Staton MD; Dr. Socrates Spangler MD; Dr. Savanna Suero MD Signed Normal [facility] Absolute neutrophil countOrd ered By: Azam Montgomery on 06-18-2024 Neutrophils (Bld) [#/Vol] 6.7 10*3/uL 2.0-7.7 [facility] Basic Metabolic Profile (BMP )on 06-18-2024 BUN/CRE 32.9 RATIO High 10-20 [facility] Comment on above: Performed By: #### L 9000.0800 #### [facility] [address] [place], [address] Calcium [Mass/Vol] 8.6 mg/dL Normal 7.6-11.0 [facility] Comment on above: Performed By: #### L 9000.0800 #### [facility] [address] [place], [address] Chloride [Moles/Vol] 100 mmol/L Normal 98-108 [facility] Comment on above: Performed By: #### L 9000.0800 #### [facility] [address] [place], [address] CO2 [Moles/Vol] 31.0 mmol/L Normal 21.0-32.0 [facility] Comment on above: Performed By: #### L 9000.0800 #### [facility] [address] [place], [address] Creatinine [Mass/Vol] 1.47 mg/dL High 0.70-1.20 [facility] Comment on above: Performed By: #### L 9000.0800 #### [facility] [address] [place], [address] ECRCL 51.63 ml/min Normal 50-250 [facility] Comment on above: Performed By: #### L 9000.0800 #### [facility] [address] [place], [address] GAP 10 Normal 5-15 [facility] Comment on above: Performed By: #### L 9000.0800 #### [facility] [address] [place], [address] GFR/1.73 sq M.predicted among non-blacks MDRD (S/P/Bld) [Vol rate/Area] 36 mL/min/{1.73_m2} Low >60 [facility] Comment on above: Result Comment: mL/m in/1.73m2 CKD-EPI Creatinine Equation (2020) Performed By: #### L 9000.0800 #### [facility] [address] [place], [address] Glucose [Mass/Vol] 193 mg/dL High 70-99 [facility] Comment on above: Performed By: #### L 9000.0800 #### [facility] [address] [place], [address] Potassium [Moles/Vol] 3.4 mmol/L Normal 3.3-5.1 [facility] Comment on above: Result Comment: Hemo lysis present, Results??could be affected. ?? Performed By: #### L 9000.0800 #### [facility] [address] [place], [address] Sodium [Moles/Vol] 141 mmol/L Normal 133-145 [facility] Comment on above: Performed By: #### L 9000.0800 #### [facility] [address] [place], [address] Urea nitrogen [Mass/Vol] 48 mg/dL High 4-19 [facility] Comment on above: Performed By: #### L 9000.0800 #### [facility] [address] [place], [address] Basophil percentageOrdered B y: Azam Ulises on 06-18-2024 Basophils/100 WBC (Bld) 0.1 % 0-[address] [facility] Bedside Glucoseon 06-18-2024 FINGERSTICK GLU 229 mg/dL High 74-106 [facility] Comment on above: Result Comment: ALEXIS GEMENT OF PATIENT CARE PER NURSING PROTOCOL Performed By: #### L 9000.0800 #### [facility] [address] [place], [address] FINGERSTICK GLU 215 mg/dL High 74-106 [facility] Comment on above: Result Comment: ALEXIS GEMENT OF PATIENT CARE PER NURSING PROTOCOL Performed By: #### L 501.080 #### [facility] [address] [place], [address] FINGERSTICK GLU 205 mg/dL High 74-106 [facility] Comment on above: Result Comment: ALEXIS GEMENT OF PATIENT CARE PER NURSING PROTOCOL Performed By: #### L 9000.0800 #### [facility] [address] [place], [address] FINGERSTICK GLU 179 mg/dL High 74-106 [facility] Comment on above: Result Comment: ALEXIS GEMENT OF PATIENT CARE PER NURSING PROTOCOL Performed By: #### L 9000.0800 #### [facility] [address] [place], [address] CBC W/Diff, Automatedon 04-0 -2024 Absolute Lymph 1.36 X10 3/uL Normal 0.83-4.51 [facility] Comment on above: Performed By: #### L 9000.0800 #### [facility] [address] [place], [address] Absolute Neut 6.7 X10 3/uL Normal 2.0-7.7 [facility] Comment on above: Performed By: #### L 9000.0800 #### [facility] [address] [place], [address] Basophils/100 WBC (Bld) 0.1 % Normal 0-[address] [facility] Comment on above: Performed By: #### L 9000.0800 #### [facility] [address] [place], [address] Eosinophils/100 WBC (Bld) 0.0 % Normal 0-5 [facility] Comment on above: Performed By: #### L 9000.0800 #### [facility] [address] [place], [address] Erythrocyte distribution width (RBC) [Ratio] 14.5 % Normal 11.6-14.6 [facility] Comment on above: Performed By: #### L 9000.0800 #### [facility] [address] [place], [address] Hematocrit (Bld) [Volume fraction] 48.2 % High 37-47 [facility] Comment on above: Performed By: #### L 9000.0800 #### [facility] [address] [place], [address] Hemoglobin (Bld) [Mass/Vol] 14.8 g/dL Normal 12.0-15.0 [facility] Comment on above: Performed By: #### L 9000.0800 #### [facility] [address] [place], [address] IG% 0.400 Normal 0.0-0.9 [facility] Comment on above: Result Comment: IG% - Immature Granulocytes (promyelocytes, myelocytes and metamyelocytes) > 1% indicates that a LEFT SHIFT is Present. Performed By: #### L 9000.0800 #### [facility] [address] [place], [address] Lymphocytes/100 WBC (Bld) 16.2 % Low 19-41 [facility] Comment on above: Performed By: #### L 9000.0800 #### [facility] [address] [place], [address] MCH (RBC) [Entitic mass] 27.7 pg Normal 27.0-32.0 [facility] Comment on above: Performed By: #### L 9000.0800 #### [facility] [address] [place], [address] MCHC (RBC) [Mass/Vol] 30.7 g/dL Low 32-36 [facility] Comment on above: Performed By: #### L 9000.0800 #### [facility] [address] [place], [address] MCV (RBC) [Entitic vol] 90.1 fL Normal 81-99 [facility] Comment on above: Performed By: #### L 9000.0800 #### [facility] [address] [place], [address] Monocytes/100 WBC (Bld) 3.9 % Normal 0-[address] [facility] Comment on above: Performed By: #### L 9000.0800 #### [facility] [address] [place], [address] Neutrophils/100 WBC (Bld) 79.4 % High 47-70 [facility] Comment on above: Performed By: #### L 9000.0800 #### [facility] [address] [place], [address] Nucleated RBC (Bld) [#/Vol] 0 10*3/uL Normal 0-5 [facility] Comment on above: Performed By: #### L 9000.0800 #### [facility] [address] [place], [address] Platelet mean volume (Bld) [Entitic vol] 9.7 fL Normal 6.2-12.0 [facility] Comment on above: Performed By: #### L 9000.0800 #### [facility] [address] [place], [address] Platelets (Bld) [#/Vol] 158 10*3/uL Normal 150-450 [facility] Comment on above: Performed By: #### L 9000.0800 #### [facility] [address] [place], [address] RBC (Bld) [#/Vol] 5.35 10*6/uL Normal 4.2-5.4 [facility] Comment on above: Performed By: #### L 9000.0800 #### [facility] [address] [place], [address] RDW SD 47.8 fl High 35.1-43.9 [facility] Comment on above: Performed By: #### L 9000.0800 #### [facility] [address] [place], [address] WBC (Bld) [#/Vol] 8.4 10*3/uL Normal 4.4-11.0 [facility] Comment on above: Performed By: #### L 9000.0800 #### [facility] [address] [place], [address] Electrocardiogram reportOrde red By: Shun Luciano on 06-18-2024 EKG study [facility] [address] [place] [address] 12 Lead EKG 06/18/24 0728 MR#: [id number] Acct: [id number] Name: TOD HUNT Rep #:[id number] : 1945 78 From: Shun Luciano MD Attending Dr: Dr. Savanna Suero MD Status: ADM IN Ordering Dr: Estela Staton MD Date: 06/18/24 Location: [facility] Sex: F C Admitted: 06/13/24 Test Reason : AF Blood Pressure : */* mmHG Vent. Rate : 60 BPM Atrial Rate : 60 BPM P-R Int : 172 ms QRS Dur : 112 ms QT Int : 762 ms P-R-T Axes : 49 -29 34 degrees QTcB Int : 762 ms Critical Test Result: Long QTc Sinus rhythm with Premature atrial complexes Nonspecific ST and T wave abnormality Abnormal ECG When compared with ECG of 17-Jun-2024 23:22, MANUAL COMPARISON REQUIRED DATA IS UNCONFIRMED Confirmed by LAUREN ROSS, SHUN ([id number]), editor newspaper SHRUTI QUINTERO ([id number]) on 06/18/2024 2:02:00 PM Referred By: ULISES Confirmed By: SHUN LUCIANO MD 06/18/24 1402 Date _ Shun Luciano MD CC: Dr. Estela Staton MD; Dr. Socrates Spangler MD; Dr. Savanna Suero MD ~ Signed [facility] Work Phone: EKG study [facility] [address] [place] [address] 12 Lead EKG 06/17/24 2322 MR#: [id number] Acct: [id number] Name: TOD HUNT Rep #:[id number] : 1945 78 From: Shun Luciano MD Attending Dr: Dr. Savanna Suero MD Status: ADM IN Ordering Dr: Estela Staton MD Date: 06/17/24 Location: [facility] Sex: F C Admitted: 06/13/24 Test Reason : RYTHMN CHANGE Blood Pressure : */* mmHG Vent. Rate : 142 BPM Atrial Rate : * BPM P-R Int : * ms QRS Dur : 108 ms QT Int : 302 ms P-R-T Axes : * -48 112 degrees QTcB Int : 464 ms Critical Test Result: High HR Atrial fibrillation with rapid ventricular response Left axis deviation Nonspecific ST and T wave abnormality Abnormal ECG When compared with ECG of 13-Jun-2024 19:57, Significant changes have occurred Confirmed by LAUREN ROSS, SHUN ([id number]), editor newspaper BETHEL PALMA ([id number]) on 06/18/2024 9:17:53 AM Referred By: BRIONNA Confirmed By: SHUN LUCIANO MD 06/18/24 0917 Date _ Shun Luciano MD CC: Dr. Estela Staton MD; Dr. Socrates Spangler MD; Dr. Savanna Suero MD ~ Signed [facility] Work Phone: Eosinophil percentageOrdered By: Azam Montgomery on 06-18-2024 Eosinophils/100 WBC (Bld) 0.0 % 0-5 [facility] Immature granulocytes/100 WB C Auto (Bld)Ordered By: Azam Montgomery on 06-18-2024 Immature granulocytes/100 WBC (Bld) 0.400 % 0.0-0.9 [facility] Comment on above: IG% - Immature Granu locytes (promyelocytes, myelocytes and metamyelocytes) > 1% indicates that a LEFT SHIFT is Present. Lymphocytes Auto (Unsp spec) [#/Vol]Ordered By: Azam Montgomery on 06-18-2024 Lymphocytes (Bld) [#/Vol] 1.36 10*3/uL 0.83-4.51 [facility] Lymphocytes/100 WBC Auto (Un sp spec)Ordered By: Azam Montgomery on 06-18-2024 Lymphocytes/100 WBC (Bld) 16.2 % Low 19-41 [facility] Monocyte percentageOrdered B y: Azam Ulises on 06-18-2024 Monocytes/100 WBC (Bld) 3.9 % 0-[address] [facility] Neutrophil percentageOrdered By: Azam Ulises on 06-18-2024 Neutrophils/100 WBC (Bld) 79.4 % High 47-70 [facility] Nucleated red blood cell per centageOrdered By: Azam Ulises on 06-18-2024 Nucleated RBC/100 WBC (Bld) [Ratio] 0 % 0-5 [facility] 12 Lead EKGon 06-17-2024 12 Lead EKG [facility] [address] [place] [address] 12 Lead EKG 06/17/24 2322 MR#: [id number] Acct: [id number] Name: TOD HUNT Rep #: [id number] : 1945 78 From: Shun Luciano MD Attending Dr: Dr. Savanna Suero MD Status: ADM IN Ordering Dr: Estela Staton MD Date: 06/17/24 Location: [facility] Sex: F C Admitted: 06/13/24 Test Reason : RYTHMN CHANGE Blood Pressure : */* mmHG Vent. Rate : 142 BPM Atrial Rate : * BPM P-R Int : * ms QRS Dur : 108 ms QT Int : 302 ms P-R-T Axes : * -48 112 degrees QTcB Int : 464 ms Critical Test Result: High HR Atrial fibrillation with rapid ventricular response Left axis deviation Nonspecific ST and T wave abnormality Abnormal ECG When compared with ECG of 13-Jun-2024 19:57, Significant changes have occurred Confirmed by SHUN LUCIANO MD ([id number]), editor newspaper BETHEL PALMA ([id number]) on 06/18/2024 9:17:53 AM Referred By: BRIONNA Confirmed By: SHUN LUCIANO MD 06/18/24 0917 Date Shun Luciano MD CC: Dr. Estela Staton MD; Dr. Socrates Spangler MD; Dr. Savanna Suero MD Signed Normal [facility] Basic Metabolic Profile (BMP )on 06-17-2024 BUN/CRE 31.8 RATIO High 10-20 [facility] Comment on above: Performed By: #### L 500.2500, L100.0100 #### [facility] [address] [place], [address] Calcium [Mass/Vol] 8.7 mg/dL Normal 7.6-11.0 [facility] Comment on above: Performed By: #### L 500.2500, L100.0100 #### [facility] [address] [place], [address] Chloride [Moles/Vol] 100 mmol/L Normal 98-108 [facility] Comment on above: Performed By: #### L 500.2500, L100.0100 #### [facility] [address] [place], [address] CO2 [Moles/Vol] 31.0 mmol/L Normal 21.0-32.0 [facility] Comment on above: Performed By: #### L 500.2500, L100.0100 #### [facility] [address] [place], [address] Creatinine [Mass/Vol] 1.46 mg/dL High 0.70-1.20 [facility] Comment on above: Performed By: #### L 500.2500, L100.0100 #### [facility] [address] [place], [address] ECRCL 51.57 ml/min Normal 50-250 [facility] Comment on above: Performed By: #### L 500.2500, L100.0100 #### [facility] [address] [place], [address] GAP 9 Normal 5-15 [facility] Comment on above: Performed By: #### L 500.2500, L100.0100 #### [facility] [address] [place], [address] GFR/1.73 sq M.predicted among non-blacks MDRD (S/P/Bld) [Vol rate/Area] 36 mL/min/{1.73_m2} Low >60 [facility] Comment on above: Result Comment: mL/m in/1.73m2 CKD-EPI Creatinine Equation (2020) Performed By: #### L 500.2500, L100.0100 #### [facility] [address] [place], [address] Glucose [Mass/Vol] 173 mg/dL High 70-99 [facility] Comment on above: Performed By: #### L 500.2500, L100.0100 #### [facility] [address] [place], [address] Potassium [Moles/Vol] 3.4 mmol/L Normal 3.3-5.1 [facility] Comment on above: Performed By: #### L 500.2500, L100.0100 #### [facility] [address] [place], [address] Sodium [Moles/Vol] 140 mmol/L Normal 133-145 [facility] Comment on above: Performed By: #### L 500.2500, L100.0100 #### [facility] [address] [place], [address] Urea nitrogen [Mass/Vol] 46 mg/dL High 4-19 [facility] Comment on above: Performed By: #### L 500.2500, L100.0100 #### [facility] [address] [place], [address] Bedside Glucoseon 06-17-2024 FINGERSTICK GLU 206 mg/dL High 74-106 [facility] Comment on above: Result Comment: ALEXIS BAE OF PATIENT CARE PER NURSING PROTOCOL Performed By: #### L 500.2500, L100.0100 #### [facility] [address] [place], [address] FINGERSTICK GLU 127 mg/dL High 74-106 [facility] Comment on above: Result Comment: ALEXIS GEMENT OF PATIENT CARE PER NURSING PROTOCOL Performed By: #### L 501.080 #### [facility] [address] [place], [address] FINGERSTICK GLU 207 mg/dL High 74-106 [facility] Comment on above: Result Comment: ALEXIS GEMENT OF PATIENT CARE PER NURSING PROTOCOL Performed By: #### L 500.2500, L100.0100 #### [facility] [address] [place], [address] FINGERSTICK GLU 162 mg/dL High 74-106 [facility] Comment on above: Result Comment: ALEXIS GEMENT OF PATIENT CARE PER NURSING PROTOCOL Performed By: #### L 500.2500, L100.0100 #### [facility] [address] [place], [address] CBC W/Diff, Automatedon 04-0 6-2024 Absolute Lymph 1.25 X10 3/uL Normal 0.83-4.51 [facility] Comment on above: Performed By: #### L 500.2500, L100.0100 #### [facility] [address] [place], [address] Absolute Neut 5.7 X10 3/uL Normal 2.0-7.7 [facility] Comment on above: Performed By: #### L 500.2500, L100.0100 #### [facility] [address] [place], [address] Basophils/100 WBC (Bld) 0.0 % Normal 0-[address] [facility] Comment on above: Performed By: #### L 500.2500, L100.0100 #### [facility] [address] [place], [address] Eosinophils/100 WBC (Bld) 0.0 % Normal 0-5 [facility] Comment on above: Performed By: #### L 500.2500, L100.0100 #### [facility] [address] [place], [address] Erythrocyte distribution width (RBC) [Ratio] 14.5 % Normal 11.6-14.6 [facility] Comment on above: Performed By: #### L 500.2500, L100.0100 #### [facility] [address] [place], [address] Hematocrit (Bld) [Volume fraction] 47.9 % High 37-47 [facility] Comment on above: Performed By: #### L 500.2500, L100.0100 #### [facility] [address] [place], [address] Hemoglobin (Bld) [Mass/Vol] 14.6 g/dL Normal 12.0-15.0 [facility] Comment on above: Performed By: #### L 500.2500, L100.0100 #### [facility] [address] [place], [address] IG% 0.300 Normal 0.0-0.9 [facility] Comment on above: Result Comment: IG% - Immature Granulocytes (promyelocytes, myelocytes and metamyelocytes) > 1% indicates that a LEFT SHIFT is Present. Performed By: #### L 500.2500, L100.0100 #### [facility] [address] [place], [address] Lymphocytes/100 WBC (Bld) 17.5 % Low 19-41 [facility] Comment on above: Performed By: #### L 500.2500, L100.0100 #### [facility] [address] [place], [address] MCH (RBC) [Entitic mass] 27.7 pg Normal 27.0-32.0 [facility] Comment on above: Performed By: #### L 500.2500, L100.0100 #### [facility] [address] [place], [address] MCHC (RBC) [Mass/Vol] 30.5 g/dL Low 32-36 [facility] Comment on above: Performed By: #### L 500.2500, L100.0100 #### [facility] [address] [place], [address] MCV (RBC) [Entitic vol] 90.7 fL Normal 81-[address] [facility] Comment on above: Performed By: #### L 500.2500, L100.0100 #### [facility] [address] [place], [address] Monocytes/100 WBC (Bld) 3.1 % Normal 0-10 [facility] Comment on above: Performed By: #### L 500.2500, L100.0100 #### [facility] [address] [place], [address] Neutrophils/100 WBC (Bld) 79.1 % High 47-70 [facility] Comment on above: Performed By: #### L 500.2500, L100.0100 #### [facility] [address] [place], [address] Nucleated RBC (Bld) [#/Vol] 0 10*3/uL Normal 0-5 [facility] Comment on above: Performed By: #### L 500.2500, L100.0100 #### [facility] [address] [place], [address] Platelet mean volume (Bld) [Entitic vol] 9.5 fL Normal 6.2-12.0 [facility] Comment on above: Performed By: #### L 500.2500, L100.0100 #### [facility] [address] [place], [address] Platelets (Bld) [#/Vol] 157 10*3/uL Normal 150-450 [facility] Comment on above: Performed By: #### L 500.2500, L100.0100 #### [facility] [address] [place], [address] RBC (Bld) [#/Vol] 5.28 10*6/uL Normal 4.2-5.4 [facility] Comment on above: Performed By: #### L 500.2500, L100.0100 #### [facility] [address] [place], [address] RDW SD 49.1 fl High 35.1-43.9 [facility] Comment on above: Performed By: #### L 500.2500, L100.0100 #### [facility] [address] [place], [address] WBC (Bld) [#/Vol] 7.2 10*3/uL Normal 4.4-11.0 [facility] Comment on above: Performed By: #### L 500.2500, L100.0100 #### [facility] [address] [place], [address] Basic Metabolic Profile (BMP )on 06-16-2024 BUN/CRE 27.3 RATIO High 10-20 [facility] Comment on above: Performed By: #### L 501.080 #### [facility] [address] [place], [address] Calcium [Mass/Vol] 8.6 mg/dL Normal 7.6-11.0 [facility] Comment on above: Performed By: #### L 501.080 #### [facility] [address] [place], [address] Chloride [Moles/Vol] 101 mmol/L Normal 98-108 [facility] Comment on above: Performed By: #### L 501.080 #### [facility] [address] [place], [address] CO2 [Moles/Vol] 18.1 mmol/L Low 21.0-32.0 [facility] Comment on above: Performed By: #### L 501.080 #### [facility] [address] [place], [address] Creatinine [Mass/Vol] 1.56 mg/dL High 0.70-1.20 [facility] Comment on above: Performed By: #### L 501.080 #### [facility] [address] [place], [address] ECRCL 48.19 ml/min Low 50-250 [facility] Comment on above: Performed By: #### L 501.080 #### [facility] [address] [place], [address] GAP 17 High 5-15 [facility] Comment on above: Performed By: #### L 501.080 #### [facility] [address] [place], [address] GFR/1.73 sq M.predicted among non-blacks MDRD (S/P/Bld) [Vol rate/Area] 33 mL/min/{1.73_m2} Low >60 [facility] Comment on above: Result Comment: mL/m in/1.73m2 CKD-EPI Creatinine Equation (2020) Performed By: #### L 501.080 #### [facility] [address] [place], [address] Glucose [Mass/Vol] 195 mg/dL High 70-99 [facility] Comment on above: Performed By: #### L 501.080 #### [facility] [address] [place], [address] Potassium [Moles/Vol] 4.5 mmol/L Normal 3.3-5.1 [facility] Comment on above: Result Comment: Hemo lysis present, Results??could be affected. ?? Performed By: #### L 501.080 #### [facility] [address] [place], [address] Sodium [Moles/Vol] 136 mmol/L Normal 133-145 [facility] Comment on above: Performed By: #### L 501.080 #### [facility] [address] [place], [address] Urea nitrogen [Mass/Vol] 43 mg/dL High 4-19 [facility] Comment on above: Performed By: #### L 501.080 #### [facility] [address] [place], [address] Bedside Glucoseon 06-16-2024 FINGERSTICK GLU 203 mg/dL High 74-106 [facility] Comment on above: Result Comment: ALEXIS GEMENT OF PATIENT CARE PER NURSING PROTOCOL Performed By: #### L 501.080 #### [facility] [address] [place], [address] FINGERSTICK GLU 202 mg/dL High 74-106 [facility] Comment on above: Result Comment: ALEXIS GEMENT OF PATIENT CARE PER NURSING PROTOCOL Performed By: #### L 500.2500, L100.0100 #### [facility] [address] [place], [address] FINGERSTICK GLU 223 mg/dL High 74-106 [facility] Comment on above: Result Comment: ALEXIS GEMENT OF PATIENT CARE PER NURSING PROTOCOL Performed By: #### L 501.080 #### [facility] [address] [place], [address] FINGERSTICK GLU 204 mg/dL High 74-106 [facility] Comment on above: Result Comment: ALEXIS GEMENT OF PATIENT CARE PER NURSING PROTOCOL Performed By: #### L 500.2500, L100.0100 #### [facility] [address] [place], [address] FINGERSTICK GLU 186 mg/dL High 74-106 [facility] Comment on above: Result Comment: ALEXIS BAE OF PATIENT CARE PER NURSING PROTOCOL Performed By: #### L 501.080 #### [facility] [address] [place], [address] CBC W/Diff, Automatedon 04-0 5-2024 Absolute Lymph 1.13 X10 3/uL Normal 0.83-4.51 [facility] Comment on above: Performed By: #### L 501.080 #### [facility] [address] [place], [address] Absolute Neut 7.8 X10 3/uL High 2.0-7.7 [facility] Comment on above: Performed By: #### L 501.080 #### [facility] [address] [place], [address] Basophils/100 WBC (Bld) 0.1 % Normal 0-[address] [facility] Comment on above: Performed By: #### L 501.080 #### [facility] [address] [place], [address] Eosinophils/100 WBC (Bld) 0.0 % Normal 0-5 [facility] Comment on above: Performed By: #### L 501.080 #### [facility] [address] [place], [address] Erythrocyte distribution width (RBC) [Ratio] 14.8 % High 11.6-14.6 [facility] Comment on above: Performed By: #### L 501.080 #### [facility] [address] [place], [address] Hematocrit (Bld) [Volume fraction] 47.2 % High 37-47 [facility] Comment on above: Performed By: #### L 501.080 #### [facility] [address] [place], [address] Hemoglobin (Bld) [Mass/Vol] 14.4 g/dL Normal 12.0-15.0 [facility] Comment on above: Performed By: #### L 501.080 #### [facility] [address] [place], [address] IG% 0.200 Normal 0.0-0.9 [facility] Comment on above: Result Comment: IG% - Immature Granulocytes (promyelocytes, myelocytes and metamyelocytes) > 1% indicates that a LEFT SHIFT is Present. Performed By: #### L 501.080 #### [facility] [address] [place], [address] Lymphocytes/100 WBC (Bld) 12.3 % Low 19-41 [facility] Comment on above: Performed By: #### L 501.080 #### [facility] [address] [place], [address] MCH (RBC) [Entitic mass] 27.8 pg Normal 27.0-32.0 [facility] Comment on above: Performed By: #### L 501.080 #### [facility] [address] [place], [address] MCHC (RBC) [Mass/Vol] 30.5 g/dL Low 32-36 [facility] Comment on above: Performed By: #### L 501.080 #### [facility] [address] [place], [address] MCV (RBC) [Entitic vol] 91.1 fL Normal 81-99 [facility] Comment on above: Performed By: #### L 501.080 #### [facility] [address] [place], [address] Monocytes/100 WBC (Bld) 2.8 % Normal 0-[address] [facility] Comment on above: Performed By: #### L 501.080 #### [facility] [address] [place], [address] Neutrophils/100 WBC (Bld) 84.6 % High 47-70 [facility] Comment on above: Performed By: #### L 501.080 #### [facility] [address] [place], [address] Nucleated RBC (Bld) [#/Vol] 0 10*3/uL Normal 0-5 [facility] Comment on above: Performed By: #### L 501.080 #### [facility] [address] [place], [address] Platelet mean volume (Bld) [Entitic vol] 9.8 fL Normal 6.2-12.0 [facility] Comment on above: Performed By: #### L 501.080 #### [facility] [address] [place], [address] Platelets (Bld) [#/Vol] 167 10*3/uL Normal 150-450 [facility] Comment on above: Performed By: #### L 501.080 #### [facility] [address] [place], [address] RBC (Bld) [#/Vol] 5.18 10*6/uL Normal 4.2-5.4 [facility] Comment on above: Performed By: #### L 501.080 #### [facility] [address] [place], [address] RDW SD 50.1 fl High 35.1-43.9 [facility] Comment on above: Performed By: #### L 501.080 #### [facility] [address] [place], [address] WBC (Bld) [#/Vol] 9.2 10*3/uL Normal 4.4-11.0 [facility] Comment on above: Performed By: #### L 501.080 #### [facility] [address] [place], [address] Foot min 3 Viewson Foot min 3 Views [facility] [address] [place] [address] Foot min 3 Views MR#: [id number] Acct: [id number] Name: TOD HUNT Rep #: [id number] : 1945 F 78 From: Joseph Araujo DO PCP: Dr. Socrates Spangler MD Status: ADM IN Study: Foot min 3 Views Date of Exam: 06/16/24 Exam# [id number] Ordering Dr: Azam Montgomery MD EXAM: Right foot three-view radiographs CLINICAL HISTORY: Discoloration and bruising from 2nd toe to the 5th toe COMPARISON: None. TECHNIQUE: AP frontal, oblique and lateral radiographs of the right foot are obtained. FINDINGS: Previous hardware fixation of distal fibula fracture and medial malleolar fracture. Hardware appears normally positioned and intact. Diffusely demineralized bones of the right foot. Lysis of the middle and distal phalanx of the 3rd digit soft tissue swelling about 2nd, 3rd, 4th consistent lysis of the distal phalanx of the 5th digit RAD/Foot min 3 Views IMPRESSION: Findings are worrisome for osteomyelitis of the 2nd to the 5th toe. Reading [facility] CC: Dr. Socrates Spangler MD; Dr. Azam Montgomery MD Lead Refinery Supervisor: Signed Normal [facility] Respiratory Cultureon 2024 RESPC List Antibiotics [place] t 48 Hours? levofloxacin; zithromax; rocephin List Antibiotics to be Started? zithromax; rocephin Mixed normal respiratory hannah. No Streptococcus pneumoniae, beta-hemolytic Streptococcus or Staphylococcus aureus isolated. Normal [facility] Comment on above: Performed By: #### L 501.080 #### [facility] [address] [place], [address] Basic Metabolic Profile (BMP )on 06-15-2024 BUN/CRE 23.9 RATIO High 10-20 [facility] Comment on above: Performed By: #### L 500.2500, L100.0100 #### [facility] [address] [place], [address] Calcium [Mass/Vol] 9.0 mg/dL Normal 7.6-11.0 [facility] Comment on above: Performed By: #### L 500.2500, L100.0100 #### [facility] [address] [place], [address] Chloride [Moles/Vol] 102 mmol/L Normal 98-108 [facility] Comment on above: Performed By: #### L 500.2500, L100.0100 #### [facility] [address] [place], [address] CO2 [Moles/Vol] 26.8 mmol/L Normal 21.0-32.0 [facility] Comment on above: Performed By: #### L 500.2500, L100.0100 #### [facility] [address] [place], [address] Creatinine [Mass/Vol] 1.54 mg/dL High 0.70-1.20 [facility] Comment on above: Performed By: #### L 500.2500, L100.0100 #### [facility] [address] [place], [address] ECRCL 49.08 ml/min Low 50-250 [facility] Comment on above: Performed By: #### L 500.2500, L100.0100 #### [facility] [address] [place], [address] GAP 12 Normal 5-15 [facility] Comment on above: Performed By: #### L 500.2500, L100.0100 #### [facility] [address] [place], [address] GFR/1.73 sq M.predicted among non-blacks MDRD (S/P/Bld) [Vol rate/Area] 34 mL/min/{1.73_m2} Low >60 [facility] Comment on above: Result Comment: mL/m in/1.73m2 CKD-EPI Creatinine Equation (2020) Performed By: #### L 500.2500, L100.0100 #### [facility] [address] [place], [address] Glucose [Mass/Vol] 191 mg/dL High 70-99 [facility] Comment on above: Performed By: #### L 500.2500, L100.0100 #### [facility] [address] [place], [address] Potassium [Moles/Vol] 3.8 mmol/L Normal 3.3-5.1 [facility] Comment on above: Performed By: #### L 500.2500, L100.0100 #### [facility] [address] [place], [address] Sodium [Moles/Vol] 140 mmol/L Normal 133-145 [facility] Comment on above: Performed By: #### L 500.2500, L100.0100 #### [facility] [address] [place], [address] Urea nitrogen [Mass/Vol] 37 mg/dL High 4-19 [facility] Comment on above: Performed By: #### L 500.2500, L100.0100 #### [facility] [address] [place], [address] Bedside Glucoseon 06-15-2024 FINGERSTICK GLU 211 mg/dL High 74-106 [facility] Comment on above: Result Comment: ALEXIS BAE OF PATIENT CARE PER NURSING PROTOCOL Performed By: #### L 501.080 #### [facility] [address] [place], [address] FINGERSTICK GLU 207 mg/dL High 74-106 [facility] Comment on above: Result Comment: ALEXIS GEMENT OF PATIENT CARE PER NURSING PROTOCOL Performed By: #### L 500.2500, L100.0100 #### [facility] [address] [place], [address] FINGERSTICK GLU 188 mg/dL High 74-106 [facility] Comment on above: Result Comment: ALEXIS GEMENT OF PATIENT CARE PER NURSING PROTOCOL Performed By: #### L 500.2500, L100.0100 #### [facility] [address] [place], [address] FINGERSTICK GLU 230 mg/dL High 74-106 [facility] Comment on above: Result Comment: ALEXIS GEMENT OF PATIENT CARE PER NURSING PROTOCOL Performed By: #### L 501.080 #### [facility] [address] [place], [address] CBC W/Diff, Automatedon 04-0 4-2025 Absolute Lymph 1.44 X10 3/uL Normal 0.83-4.51 [facility] Comment on above: Performed By: #### L 500.2500, L100.0100 #### [facility] [address] [place], [address] Absolute Neut 8.6 X10 3/uL High 2.0-7.7 [facility] Comment on above: Performed By: #### L 500.2500, L100.0100 #### [facility] [address] [place], [address] Basophils/100 WBC (Bld) 0.1 % Normal 0-[address] [facility] Comment on above: Performed By: #### L 500.2500, L100.0100 #### [facility] [address] [place], [address] Eosinophils/100 WBC (Bld) 0.0 % Normal 0-5 [facility] Comment on above: Performed By: #### L 500.2500, L100.0100 #### [facility] [address] [place], [address] Erythrocyte distribution width (RBC) [Ratio] 15.0 % High 11.6-14.6 [facility] Comment on above: Performed By: #### L 500.2500, L100.0100 #### [facility] [address] [place], [address] Hematocrit (Bld) [Volume fraction] 49.6 % High 37-47 [facility] Comment on above: Performed By: #### L 500.2500, L100.0100 #### [facility] [address] [place], [address] Hemoglobin (Bld) [Mass/Vol] 15.1 g/dL High 12.0-15.0 [facility] Comment on above: Performed By: #### L 500.2500, L100.0100 #### [facility] [address] [place], [address] IG% 0.400 Normal 0.0-0.9 [facility] Comment on above: Result Comment: IG% - Immature Granulocytes (promyelocytes, myelocytes and metamyelocytes) > 1% indicates that a LEFT SHIFT is Present. Performed By: #### L 500.2500, L100.0100 #### [facility] [address] [place], [address] Lymphocytes/100 WBC (Bld) 13.8 % Low 19-41 [facility] Comment on above: Performed By: #### L 500.2500, L100.0100 #### [facility] [address] [place], [address] MCH (RBC) [Entitic mass] 27.6 pg Normal 27.0-32.0 [facility] Comment on above: Performed By: #### L 500.2500, L100.0100 #### [facility] [address] [place], [address] MCHC (RBC) [Mass/Vol] 30.4 g/dL Low 32-36 [facility] Comment on above: Performed By: #### L 500.2500, L100.0100 #### [facility] [address] [place], [address] MCV (RBC) [Entitic vol] 90.7 fL Normal 81-[address] [facility] Comment on above: Performed By: #### L 500.2500, L100.0100 #### [facility] [address] [place], [address] Monocytes/100 WBC (Bld) 3.0 % Normal 0-10 [facility] Comment on above: Performed By: #### L 500.2500, L100.0100 #### [facility] [address] [place], [address] Neutrophils/100 WBC (Bld) 82.7 % High 47-70 [facility] Comment on above: Performed By: #### L 500.2500, L100.0100 #### [facility] [address] [place], [address] Nucleated RBC (Bld) [#/Vol] 0 10*3/uL Normal 0-5 [facility] Comment on above: Performed By: #### L 500.2500, L100.0100 #### [facility] [address] [place], [address] Platelet mean volume (Bld) [Entitic vol] 9.5 fL Normal 6.2-12.0 [facility] Comment on above: Performed By: #### L 500.2500, L100.0100 #### [facility] [address] [place], [address] Platelets (Bld) [#/Vol] 177 10*3/uL Normal 150-450 [facility] Comment on above: Performed By: #### L 500.2500, L100.0100 #### [facility] [address] [place], [address] RBC (Bld) [#/Vol] 5.47 10*6/uL High 4.2-5.4 [facility] Comment on above: Performed By: #### L 500.2500, L100.0100 #### [facility] [address] [place], [address] RDW SD 50.6 fl High 35.1-43.9 [facility] Comment on above: Performed By: #### L 500.2500, L100.0100 #### [facility] [address] [place], [address] WBC (Bld) [#/Vol] 10.4 10*3/uL Normal 4.4-11.0 [facility] Comment on above: Performed By: #### L 500.2500, L100.0100 #### [facility] [address] [place], [address] Chest 1 View (Portable)on Chest 1 View (Portable) [facility] Imaging Services [address] [place] [address] Chest 1 View (Portable) MR#: [id number] Acct: [id number] Name: TOD HUNT Rep #: [id number] : 1945 F 78 From: Luis Golden MD PCP: Dr. Socrates Spangler MD Status: ADM IN Study: Chest 1 View (Portable) Date of Exam: 06/15/24 Exam# [id number] Ordering Dr: Azam Montgomery MD EXAM: XR Chest, 1 View CLINICAL INDICATION: PULM EDEMA, R/O PNEUMONIA TECHNIQUE: Frontal view of the chest. COMPARISON: No relevant prior studies available. FINDINGS: LUNGS AND PLEURAL SPACES: See below. HEART: Cardiomegaly with pulmonary congestion and edema. Superimposed pneumonia cannot be excluded. MEDIASTINUM: Unremarkable. Normal mediastinal contour. BONES/JOINTS: Unremarkable. No acute fracture. RAD/Chest 1 View (Portable) IMPRESSION: Cardiomegaly with pulmonary congestion and edema. Superimposed pneumonia cannot be excluded. Reading Location: [facility] CC: Dr. Socrates Spangler MD; Dr. Azam Montgomery MD Lead Refinery Supervisor: Signed Normal [facility] Electrocardiogram reportOrde red By: Shun Luciano on 06-15-2024 EKG study [facility] Cardiovascular Services [address] [place] [address] 12 Lead EKG 06/13/241956 MR#: [id number] Acct: [id number] Name: TOD HUNT Rep #:[id number] : 1945 78 From: Shun Luciano MD Attending Dr: Dr. Azam Montgomery MD Status: ADM IN Ordering Dr: Gabriel Rucker DO Date: 05/08 Location: [facility] Sex: F C Admitted: 06/13/24 Test Reason : SOB Blood Pressure : */* mmHG Vent. Rate : 63 BPM Atrial Rate : 63 BPM P-R Int : 214 ms QRS Dur : 118 ms QT Int : 428 ms P-R-T Axes : 88 -62 -58 degrees QTcB Int : 437 ms Sinus rhythm with 1st degree A-V block Left axis deviation Pulmonary disease pattern Non-specific intra-ventricular conduction delay Nonspecific ST and T wave abnormality Abnormal ECG Confirmed by SHUN LUCIANO MD ([id number]), editor newspaper BETHEL PALMA ([id number]) on 06/15/2024 9:23:38 AM Referred By: FRANK Confirmed By: SHUN LUCIANO MD 06/15/24 0923 Date _ Shun Luciano MD CC: Dr. Socrates Spangler MD; Dr. Azam Montgomery MD; Dr. Gabriel Rucker DO ~ Signed [facility] Work Phone: Gram Stainon 06-15-2024 List Antibiotics Las t 48 Hours? levofloxacin; zithromax; rocephin List Antibiotics to be Started? zithromax; rocephin Acceptable Specimen? Yes (<25 Epithelial cells per/lpf) Gram Stain 1+ Gram positive rods Rare Epithelial cells Rare White Blood Cells Normal [facility] Comment on above: Performed By: #### L 501.080 #### [facility] [address] [place], [address] Magnesiumon 06-15-2024 Magnesium [Mass/Vol] 1.7 mg/dL Normal 1.5-2.2 [facility] Comment on above: Performed By: #### L 500.2500, L100.0100 #### [facility] [address] [place], [address] Arterial patency Wrist arter y --pre arterial punctureOrdered By: Estela Staton on 06-14-2024 Shirin Test Positive [facility] Base excess Calc (BldV) [Mol es/Vol]Ordered By: Estela Staton on 06-14-2024 Blood Gas Base Excess 4 mmol/L High -2-2 [facility] Bedside Glucoseon 06-14-2024 FINGERSTICK GLU 195 mg/dL High 74-106 [facility] Comment on above: Result Comment: ALEXIS GEMENT OF PATIENT CARE PER NURSING PROTOCOL Performed By: #### L 501.080 #### [facility] [address] [place], [address] FINGERSTICK GLU 235 mg/dL High 74-106 [facility] Comment on above: Result Comment: ALEXIS GEMENT OF PATIENT CARE PER NURSING PROTOCOL Performed By: #### L 500.2500, L100.0100 #### [facility] [address] [place], [address] FINGERSTICK GLU 204 mg/dL High 74-106 [facility] Comment on above: Result Comment: ALEXIS GEMENT OF PATIENT CARE PER NURSING PROTOCOL Performed By: #### L 501.080 #### [facility] [address] [place], [address] FINGERSTICK GLU 218 mg/dL High 74-106 [facility] Comment on above: Result Comment: ALEXIS BAE OF PATIENT CARE PER NURSING PROTOCOL Performed By: #### L 501.080 #### [facility] [address] [place], [address] Bilirubin, totalOrdered By: Estela Staton on 06-14-2024 Bilirubin [Mass/Vol] 0.41 mg/dL 0.00-1.30 [facility] Blood Gases by CPSon 025 SHIRIN TEST Positive Normal [facility] Comment on above: Performed By: #### L 501.080 #### [facility] [address] [place], [address] Base excess Calc (Bld) [Moles/Vol] 4 mmol/L High -2 to +2 [facility] Comment on above: Performed By: #### L 501.080 #### [facility] [address] [place], [address] Blood Gas Type ART Normal [facility] Comment on above: Performed By: #### L 501.080 #### [facility] [address] [place], [address] CO2 [Moles/Vol] 32 mmol/L Normal [facility] Comment on above: Performed By: #### L 501.080 #### [facility] [address] [place], [address] FI02 30.0 Normal [facility] Comment on above: Performed By: #### L 501.080 #### [facility] [address] [place], [address] HCO3 (Bld) [Moles/Vol] 29.9 mmol/L High 22-[address] [facility] Comment on above: Performed By: #### L 501.080 #### [facility] [address] [place], [address] Mode Not entered Normal [facility] Comment on above: Performed By: #### L 501.080 #### [facility] [address] [place], [address] O2 Delivery Dev BiPAP Normal [facility] Comment on above: Performed By: #### L 501.080 #### [facility] [address] [place], [address] pCO2 60.2 mmHg High 35-45 [facility] Comment on above: Performed By: #### L 501.080 #### [facility] [address] [place], [address] PEEP 10 Normal [facility] Comment on above: Performed By: #### L 501.080 #### [facility] [address] [place], [address] pH (Bld) 7.30 [pH] Low 7.35-7.45 [facility] Comment on above: Performed By: #### L 501.080 #### [facility] [address] [place], [address] PIP 20 Normal [facility] Comment on above: Performed By: #### L 501.080 #### [facility] [address] [place], [address] PO2 70 mmHG Low 75-100 [facility] Comment on above: Performed By: #### L 501.080 #### [facility] [address] [place], [address] RR 12 Normal [facility] Comment on above: Performed By: #### L 501.080 #### [facility] [address] [place], [address] SITE R Radial Normal [facility] Comment on above: Performed By: #### L 501.080 #### [facility] [address] [place], [address] SO2 92 Low 95-99 [facility] Comment on above: Performed By: #### L 501.080 #### [facility] [address] [place], [place], [address] Blood bicarbonate measuremen tOrdered By: Estela Staton on 06-14-2024 Blood Gas Bicarbonate Actual 29.9 mmol/L High 22-26 [facility] CBC W/Diff, Automatedon 04-0 Platelets (Bld) [#/Vol] 101 10*3/uL Low 150-450 [facility] Comment on above: Performed By: #### L 501.080 #### [facility] [address] [place], [place], [address] Calculated very low density lipoprotein (VLDL) cholesterol measurementOrdered By: Estela Staton on 06-14-2024 VLDL Cholesterol 13 mg/dL 5-40 [facility] Comprehensive Metabolic Prof ilon 06-14-2024 Albumin [Mass/Vol] 3.2 g/dL Low 3.4-4.8 [facility] Comment on above: Performed By: #### L 501.080 #### [facility] [address] [place], [address] Albumin/Globulin [Mass ratio] 1.2 {ratio} Normal 0.9-2.4 [facility] Comment on above: Performed By: #### L 501.080 #### [facility] [address] [place], [address] ALK PHOS 107 U/L High 35-104 [facility] Comment on above: Performed By: #### L 501.080 #### [facility] [address] [place], [address] ALT [Catalytic activity/Vol] 19 U/L Normal <=34 [facility] Comment on above: Performed By: #### L 501.080 #### [facility] [address] [place], [address] AST [Catalytic activity/Vol] 32 U/L Normal <=31 [facility] Comment on above: Result Comment: Hemo lysis present, Results??could be affected. ?? Performed By: #### L 501.080 #### [facility] [address] [place], [address] Bilirubin [Mass/Vol] 0.41 mg/dL Normal 0.00-1.30 [facility] Comment on above: Performed By: #### L 501.080 #### [facility] [address] [place], [address] BUN/CRE 22.6 RATIO High 10-20 [facility] Comment on above: Performed By: #### L 501.080 #### [facility] [address] [place], [address] Calcium [Mass/Vol] 9.0 mg/dL Normal 7.6-11.0 [facility] Comment on above: Performed By: #### L 501.080 #### [facility] [address] [place], [address] Chloride [Moles/Vol] 105 mmol/L Normal 98-108 [facility] Comment on above: Performed By: #### L 501.080 #### [facility] [address] [place], [address] CO2 [Moles/Vol] 19.3 mmol/L Low 21.0-32.0 [facility] Comment on above: Performed By: #### L 501.080 #### [facility] [address] [place], [address] Creatinine [Mass/Vol] 1.41 mg/dL High 0.70-1.20 [facility] Comment on above: Performed By: #### L 501.080 #### [facility] [address] [place], [address] ECRCL 53.62 ml/min Normal 50-250 [facility] Comment on above: Performed By: #### L 501.080 #### [facility] [address] [place], [address] GAP 16 High 5-15 [facility] Comment on above: Performed By: #### L 501.080 #### [facility] [address] [place], [address] GFR/1.73 sq M.predicted among non-blacks MDRD (S/P/Bld) [Vol rate/Area] 38 mL/min/{1.73_m2} Low >60 [facility] Comment on above: Result Comment: mL/m in/1.73m2 CKD-EPI Creatinine Equation (2020) Performed By: #### L 501.080 #### [facility] [address] [place], [address] Globulin (S) [Mass/Vol] 2.7 g/dL Normal 2.2-4.2 [facility] Comment on above: Performed By: #### L 501.080 #### [facility] [address] [place], [address] Glucose [Mass/Vol] 221 mg/dL High 70-99 [facility] Comment on above: Performed By: #### L 501.080 #### [facility] [address] [place], [address] Potassium [Moles/Vol] 4.8 mmol/L Normal 3.3-5.1 [facility] Comment on above: Result Comment: Hemo lysis present, Results??could be affected. ?? Performed By: #### L 501.080 #### [facility] [address] [place], [address] Sodium [Moles/Vol] 140 mmol/L Normal 133-145 [facility] Comment on above: Performed By: #### L 501.080 #### [facility] [address] [place], [place], [address] T PROT 5.9 g/dL Normal 5.9-8.4 [facility] Comment on above: Performed By: #### L 501.080 #### [facility] [address] [place], [place], [address] Urea nitrogen [Mass/Vol] 32 mg/dL High 4-19 [facility] Comment on above: Performed By: #### L 501.080 #### [facility] [address] [place], [place], [address] Determination of fraction of inspired oxygenOrdered By: Estela Staton on 06-14-2024 Blood Gas Oxygen Percent 30.0 [facility] Echo Complete W/ Contraston 06-14-2024 Echo Complete W/ Contrast [facility] Cardi[facility] Services [address] [place] [address] Echo Complete W/ Contrast 06/14/24 0854 MR#: [id number] Acct: [id number] Name: TOD HUNT Rep #: [id number] : 1945 78 From: Shun Luciano MD Attending Dr: Dr. Azam Montgomery MD Status: ADM IN Ordering Dr: Estela Staton MD Date: 06/14/24 Location: U Sex: F C Admitted: 06/13/24 Reason For Study Reason For Study: CHF Procedure This was a 2D Doppler, Color Flow transthoracic echocardiogram. The patient was scanned supine. Due to morbid obesity (BMI 76.5) suboptimal positioning. The study was technically limited. The study was technically difficult. Contrast injection was performed. Exam performed portable in patient room. Left Ventricle Normal LV size. Left ventricular systolic function is normal. The left ventricular ejection fraction is 60 %. Right Ventricle Normal right ventricle. Pericardium/Pleural No pericardial effusion. Medication Diluted definity 4.0ml given slow IV push to enhance endocardial definition. MMode/2D Measurements Calculations LVIDd: 4.5 cm IVSd: 1.6 cm LAV(MOD-sp4): 58.1 ml LVIDs: 3.2 cm LVPWd: 1.9 cm FS: 28.7 % _ LVAd ap4: 34.7 cm2 LVAd ap2: 37.7 cm2 SV(MOD-sp4): 58.0 ml LVLd ap4: 9.0 cm LVLd ap2: 9.0 cm SI(MOD-sp4): 23.3 ml/m2 EDV(MOD-sp4): 111.5 ml EDV(MOD-sp2): 135.4 ml EDV(sp4-el): 114.2 ml EDV(sp2-el): 133.4 ml LVAs ap4: 21.5 cm2 LVAs ap2: 23.4 cm2 LVLs ap4: 7.2 cm LVLs ap2: 7.6 cm ESV(MOD-sp4): 53.5 ml ESV(MOD-sp2): 60.6 ml ESV(sp4-el): 54.3 ml ESV(sp2-el): 61.3 ml EF(MOD-sp4): 52.0 % EF(MOD-sp2): 55.3 % EF(sp4-el): 52.5 % _ SV(MOD-sp2): 74.8 ml SV(sp4-el): 60.0 ml LA A4 area: 20.4 cm2 SI(MOD-sp2): 30.1 ml/m2 Time Measurements MV dec time: 0.17 sec Doppler Measurements Calculations MV E max katie: 58.9 cm/sec Lat Peak E' Katie: 6.0 cm/sec Med Peak E' Katie: 5.2 cm/sec MV A max katie: 91.1 cm/sec E/E' lat: 9.9 E/E' med: 11.3 MV E/A: 0.65 _ MV V2 max: 99.2 cm/sec Ao V2 max: 137.8 cm/sec LV V1 max: 69.2 cm/sec MV max P.9 mmHg Ao max P.6 mmHg LV V1 max P.9 mmHg MV V2 mean: 57.9 cm/sec Ao V2 mean: 101.9 cm/sec LV V1 mean P.3 mmHg MV mean P.5 mmHg Ao mean P.4 mmHg LV V1 mean: 55.6 cm/sec MV V2 VTI: 21.1 cm Ao V2 VTI: 31.4 cm LV V1 VTI: 19.7 cm AV (velocity ratio): 0.63 _ PA V2 max: 124.7 cm/sec PA V2 mean: 80.6 cm/sec ECHO/Echo Complete W/ Contrast Interpretation Summary Normal LV size. Left ventricular systolic function is normal. The left ventricular ejection fraction is 60 %. Contrast injection was performed. The study was technically limited. Ordering Physician: Estela Staton Referring Physician: Socrates Spangler Performed By: Stephenie Gerardo RDCS, RVT 06/14/24 1140 Date Shun Luciano MD CC: Dr. Estela Staton MD; Dr. Socrates Spangler MD; Dr. Azam Montgomery MD Date Dictated: 06/14/24 0854 Date Transcribed: 06/14/24 1140 Lead Refinery Supervisor: Signed Normal [facility] Echocardiogram study reportO rdered By: Shun Luciano on 06-14-2024 Study report [facility] [address] [place] [address] Echo Complete W/ Contrast 06/14/24 0854 MR#: [id number] Acct: [id number] Name: TOD HUNT Rep #:[id number] : 1945 78 From: Shun Alarcon Attending Dr: Dr. Azam Montgomery MD Status: ADM IN Ordering Dr: Estela Staton MD Date: 06/14/24 Location: [facility] Sex: F C Admitted: 06/13/24 Reason For Study Reason For Study: CHF Procedure This was a 2D Doppler, Color Flow transthoracic echocardiogram. The patient was scanned supine. Due to morbid obesity (BMI 76.5) & suboptimal positioning. The study was technically limited. The study was technically difficult. Contrast injection was performed. Exam performed portable in patient room. Left Ventricle Normal LV size. Left ventricular systolic function is normal. The left ventricular ejection fraction is 60 %. Right Ventricle Normal right ventricle. Pericardium/Pleural No pericardial effusion. Medication Diluted definity 4.0ml given slow IV push to enhance endocardial definition. MMode/2D Measurements & Calculations LVIDd: 4.5 cm IVSd: 1.6 cm LAV(MOD-sp4): 58.1 ml LVIDs: 3.2 cm LVPWd: 1.9 cm FS: 28.7 % LVAd ap4: 34.7 cm2 LVAd ap2: 37.7 cm2 SV(MOD-sp4): 58.0 ml LVLd ap4: 9.0 cm LVLd ap2: 9.0 cm SI(MOD-sp4): 23.3 ml/m2 EDV(MOD-sp4): 111.5 ml EDV(MOD-sp2): 135.4 ml EDV(sp4-el): 114.2 ml EDV(sp2-el): 133.4 ml LVAs ap4: 21.5 cm2 LVAs ap2: 23.4 cm2 LVLs ap4: 7.2 cm LVLs ap2: 7.6 cm ESV(MOD-sp4): 53.5 ml ESV(MOD-sp2): 60.6 ml ESV(sp4-el): 54.3 ml ESV(sp2-el): 61.3 ml EF(MOD-sp4): 52.0 % EF(MOD-sp2): 55.3 % EF(sp4-el): 52.5 % SV(MOD-sp2): 74.8 ml SV(sp4-el): 60.0 ml LA A4 area: 20.4 cm2 SI(MOD-sp2): 30.1 ml/m2 Time Measurements MV dec time: 0.17 sec Doppler Measurements & Calculations MV E max katie: 58.9 cm/sec Lat Peak E' Katie: 6.0 cm/sec Med Peak E' Katie: 5.2 cm/sec MV A max katie: 91.1 cm/sec E/E' lat: 9.9 E/E' med: 11.3 MV E/A: 0.65 _ MV V2 max: 99.2 cm/sec Ao V2 max: 137.8 cm/sec LV V1 max: 69.2 cm/sec MV max P.9 mmHg Ao max P.6 mmHg LV V1 max P.9 mmHg MV V2 mean: 57.9 cm/sec Ao V2 mean: 101.9 cm/sec LV V1 mean P.3 mmHg MV mean P.5 mmHg Ao mean P.4 mmHg LV V1 mean: 55.6 cm/sec MV V2 VTI: 21.1 cm Ao V2 VTI: 31.4 cm LV V1 VTI: 19.7 cm AV (velocity ratio): 0.63 PA V2 max: 124.7 cm/sec PA V2 mean: 80.6 cm/sec ECHO/Echo Complete W/ Contrast Interpretation Summary Normal LV size. Left ventricular systolic function is normal. The left ventricular ejection fraction is 60 %. Contrast injection was performed. The study was technically limited. Ordering Physician: Estela Staton Referring Physician: Socrates Spangler Performed By: Stephenie Gerardo, RDCS, RVT 06/14/24 1140 Date _ Shun Luciano MD CC: Dr. Estela Staton MD; Dr. Socrates Spangler MD; Dr. Azam Montgomery MD ~ Date Dictated: 06/14/24 0854 Date Transcribed: 06/14/24 1140 Lead Refinery Supervisor: Signed [facility] Work Phone: Gram stainOrdered By: Estela Staton on 06-14-2024 Microscopic observation Gram stain Nom (Unsp spec) [facility] L. pneumophila Ag Ql (U)Orde red By: Estela Staton on 06-14-2024 Legionella Antigen [facility] L499.0043on 06-14-2024 Trop T High Sen 51 ng/L High <=14 [facility] Comment on above: Performed By: #### L 500.2500, L100.0100 #### [facility] [address] [place], [place], [address] L509.7001on 06-14-2024 Procalcitonin 0.06 ng/mL Normal <=0.10 [facility] Comment on above: Result Comment: Inte rpretation: <0.10-0.25 ng/mL: Antibiotic therapy discouraged. Bacterial infection unlikely. 0.25-0.50 ng/mL: Antibiotic therapy encouraged. Bacterial infection possible. >0.50 ng/mL: Antibiotic therapy strongly encouraged. Suggestive of presence of bacterial infection. PCT should always be interpreted in the clinical context of the patient. Therefore, clinicians should use the PCT results in conjunction with other laboratory findings and clinical signs of the patient. Performed By: #### L 500.2500, L100.0100 #### [facility] [address] [place], [address] LDL calc ser/plasOrdered By: Estela Staton on 06-14-2024 LDL Cholesterol, Calculated 56 mg/dL [facility] Comment on above: Mrpkteujtt=765-972 m g/dL & Higher Bleq=282 mg/dL or greater Laboratory - Chemistry and C hemistry - challengeOrdered By: Estela Staton on 06-14-2024 AST [Catalytic activity/Vol] 32 U/L <32 [facility] Comment on above: Hemolysis present, R esults could be affected. Legionella Antigen Urineon 0 06-14-2024 LEGU URINE, [place] Legionella Antigen result interpretation: L pneumo Ag Ur Ql Negative Presumptive negative for Legionella pneumophila serogroup 1 antigen in urine, suggesting no recent or current infection. Legionella Ag, Urine Negative (See interpretation below) Normal [facility] Comment on above: Performed By: #### L 400.0001 #### [facility] [address] [place], [address] Lipid Profileon 06-14-2024 CHOL:HDL 3.01 Normal [facility] Comment on above: Performed By: #### L 501.080 #### [facility] [address] [place], [address] Cholesterol [Mass/Vol] 104 mg/dL Normal <=[address] [facility] Comment on above: Result Comment: Chol esterol level, Desirable <200 mg/dL Borderline high cholesterol 200-239 mg/dL High cholesterol >=240 mg/dL Recommendations of the NCEP Adult Treatment Panel for the following risk-cutoff thresholds for the [place] population. Performed By: #### L 501.080 #### [facility] [address] [place], [address] Cholesterol in HDL [Mass/Vol] 35 mg/dL Low [facility] Comment on above: Result Comment: Sofia onal Cholesterol Education Program (NCEP) guidelines: <40 mg/dL: Low HDL-cholesterol (major risk factor for CHD) >= 60 mg/dL: High HDL-cholesterol (negative risk factor for CHD) HDL-cholesterol is affected by a number of factors, e.g. smoking, exercise, hormones, sex and age. Performed By: #### L 501.080 #### [facility] [address] [place], [place], [phone] Cholesterol in LDL [Mass/Vol] 56 mg/dL Normal [facility] Comment on above: Result Comment: Bord edniba=945-864 mg/dL Higher Bfpa=663 mg/dL or greater Performed By: #### L 501.080 #### [facility] [address] [place], [address] Cholesterol in VLDL [Mass/Vol] 13 mg/dL Normal 5-40 [facility] Comment on above: Performed By: #### L 501.080 #### [facility] [address] [place], [place], [phone] ([address] Triglyceride [Mass/Vol] 65 mg/dL Normal [facility] Comment on above: Result Comment: The drugs N-Acetylcysteine and Metamizole may falsely depress this assay. Normal range: <150 mg/dL Borderline High: 150-199 mg/dL High: 200-499 mg/dL Very High: >500 mg/dL Performed By: #### L 501.080 #### [facility] [address] [place], [place], [id number] (037) Microorganism identified Cx Nom (Unsp spec)Ordered By: Estela Staton on 06-14-2024 Respiratory Culture or Staphylococcus au reus isolated. [facility] No Panel InformationOrdered By: Estela Staton on 06-14-2024 Bedside Blood Gas PEEP [address] [facility] Bld Gas Peak Inspiratory Pressure 20 [facility] Blood Gas Respiration Rate 12 [facility] Blood Gas Sample Site R Radial [facility] Blood Gas Specimen Type ART W [facility] Blood Gas Vent Mode Not entered [facility] Oxygen Delivery Device BiPAP [facility] Procalcitonin 0.06 ng/mL <0.11 [facility] Comment on above: Interpretation:<0.10 -0.25 ng/mL: Antibiotic therapy discouraged. Bacterial infection unlikely.0.25-0.50 ng/mL: Antibiotic therapy encouraged. Bacterial infection possible.>0.50 ng/mL: Antibiotic therapy strongly encouraged. Suggestive of presence of bacterial infection.PCT should always be interpreted in the clinical context of the patient. Therefore, clinicians should use the PCT results in conjunction with other laboratory findings and clinical signs of the patient. Oxygen saturation measuremen tOrdered By: Estela Staton on 06-14-2024 Blood Gas Oxygen Saturation 92 % Low 95-99 [facility] Partial pressure of carbon d ioxide measurementOrdered By: Estela Staton on 06-14-2024 Arterial Blood Partial Pressure CO2 60.2 mmHg High 35-45 [facility] Partial pressure of oxygen m easurementOrdered By: Estela Staton 06-14-2024 Arterial Blood Partial Pressure O2 70 mmHG Low 75-100 [facility] RESPIRATORY PANEL MOLECULARo n 06-14-2024 RP PANEL ADENOVIRUS Not Detected INFLUENZA A Not Detected INFLUENZA A (SUBTYPE H1) Not Detected INFLUENZA A (SUBTYPE H3) Not Detected INFLUENZA B Not Detected HUMAN METAPHNEUMO Not Detected PARAINFLUENZA 1 Not Detected PARAINFLUENZA 2 Not Detected PARAINFLUENZA 3 Not Detected PARAINFLUENZA 4 Not Detected RHINOVIRUS Not Detected RSV A Not Detected RSV B Not Detected Normal [facility] Comment on above: Performed By: #### L 400.0001 #### [facility] [address] [place], [place], [id number] Screening total cholesterol/ high density lipoprotein (HDL) cholesterol ratioOrdered By: Estela Staton on 06-14-2024 Cholesterol.total/Dora sterol in HDL [Mass ratio] 3.01 {ratio} [facility] Serum globulin measurementOr dered By: Estela Staton on 06-14-2024 Globulin (S) [Mass/Vol] 2.7 g/dL 2.2-4.[address] [facility] Serum or plasma alanine aguirre otransferase (ALT) measurementOrdered By: [facility] on 06-14-2024 ALT [Catalytic activity/Vol] 19 U/L <35 [facility] Serum or plasma albumin kezia urement (mass/volume)Ordered By: [facility] on 06-14-2024 Albumin [Mass/Vol] 3.2 g/dL Low 3.4-4.8 [facility] Serum or plasma albumin/glob ulin mass ratioOrdered By: [facility] on 06-14-2024 Albumin/Globulin [Mass ratio] 1.2 {ratio} 0.9-2.4 [facility] Serum or plasma alkaline dawood sphatase measurementOrdered By: [facility] 06-14-2024 ALP [Catalytic activity/Vol] 107 U/L High 35-104 [facility] Serum or plasma cholesterol in HDL measurement (mass/volume)Ordered By: [facility] on 06-14-2024 Cholesterol in HDL [Mass/Vol] 35 mg/dL Low >40 [facility] Comment on above: National Cholesterol Education Program (NCEP) guidelines:<40 mg/dL: Low HDL-cholesterol (major risk factor for CHD)>= 60 mg/dL: High HDL-cholesterol (negative risk factor for CHD)HDL-cholesterol is affected by a number of factors, e.g. smoking, exercise, hormones, sex and age. Serum or plasma cholesterol measurement (mass/volume)Ordered By: [facility] on 06-14-2024 Cholesterol [Mass/Vol] 104 mg/dL <[address] [facility] Comment on above: Cholesterol level, D esirable <200 mg/dLBorderline high cholesterol 200-239 mg/dLHigh cholesterol >=240 mg/dLRecommendations of the NCEP Adult Treatment Panel for the following risk-cutoff thresholds for the [place] Pryde[place] population. Strep pneumoniae Antig(UR,CS F)on 06-14-2024 STPAG URINE INTERPRETATION Strep pneumoniae Antig(UR,CSF) Strep pneumoniae Antig(UR,CSF) Negative Urine Presumptive negative for pneumococcal pneumonia, suggesting no current or recent pneumococcal infection. Infection due to S pneumoniae cannot be ruled out since the antigen present in the sample may be below the detection limit of the test. Strep pneumo Test Negative URINE (See interpretation below) Normal [facility] Comment on above: Performed By: #### L 400.0001 #### [facility] [address] [place], [place], [id number] Streptococcus pneumoniae ant igen assayOrdered By: Estela Staton on 06-14-2024 Streptococcus pneumoniae Antigen (M [facility] T4 Free Directon 06-14-2024 T4 FREE DIRECT 1.30 ng/dL Normal 0.76-1.46 [facility] Comment on above: Performed By: #### L 501.080 #### [facility] [address] [place], [address] T4 freeOrdered By: Estela Schultz ite on 06-14-2024 Free T4 [Mass/Vol] 1.30 ng/dL 0.76-1.46 [facility] TSH DL <= 0.005 mIU/L QnOrde red By: Estela Staton on 06-14-2024 Thyroid Stimulating Hormone (TSH) 1.690 uIU/mL 0.300-4.200 [facility] Thyroid Stim Hormone (TSH)on 06-14-2024 TSH 1.690 uIU/mL Normal 0.300-4.200 [facility] Comment on above: Performed By: #### L 501.080 #### [facility] [address] [facility] [place], [address] Total carbon dioxide measure mentOrdered By: Estela Staton on 06-14-2024 Blood Gas Total CO2 32 mmol/L [facility] Total proteinOrdered By: Cindy Staton on 06-14-2024 Protein [Mass/Vol] 5.9 g/dL 5.9-8.4 [facility] Triglycerides measurementOrd ered By: Estela Staton on 06-14-2024 Triglyceride [Mass/Vol] 65 mg/dL <[address] [facility] Comment on above: The drugs N-Acetylcy steine and Metamizole may falsely depress this assay. Normal range: <150 mg/dLBorderline High: 150-199 mg/dLHigh: 200-499 mg/dLVery High: >500 mg/dL Troponin T.cardiac High sens itivity method [Mass/Vol]Ordered By: Gabriel Rucker on 06-14-2024 Troponin T High Sensitivity 4 Hour 51 ng/L High <14 [facility] pH (Unsp spec)Ordered By: Alannah zaynabblue Staton on 06-14-2024 Blood Gas pH 7.30 Low 7.35-7.45 [facility] 12 Lead EKGon 06-13-2024 12 Lead EKG [facility] [address] [place] [address] 12 Lead EKG 06/13/241956 MR#: [id number] Acct: [id number] Name: TOD HUNT Rep #: [id number] : 1945 78 From: Shun Luciano MD Attending Dr: Dr. Azam Montgomery MD Status: ADM IN Ordering Dr: Gabriel Rucker DO Date: 06/13/24 Location: [facility] Sex: F C Admitted: 06/13/24 Test Reason : SOB Blood Pressure : */* mmHG Vent. Rate : 63 BPM Atrial Rate : 63 BPM P-R Int : 214 ms QRS Dur : 118 ms QT Int : 428 ms P-R-T Axes : 88 -62 -58 degrees QTcB Int : 437 ms Sinus rhythm with 1st degree A-V block Left axis deviation Pulmonary disease pattern Non-specific intra-ventricular conduction delay Nonspecific ST and T wave abnormality Abnormal ECG Confirmed by LAUREN ROSS, SHUN ([id number]), editor newspaper BETHEL PALMA ([id number]) on 06/15/2024 9:23:38 AM Referred By: FRANK Confirmed By: SHUN LUCIANO MD 06/15/24 0923 Date Shun Luciano MD CC: Dr. Socrates Spangler MD; Dr. Azam Montgomery MD; Dr. Gabriel Rucker DO Signed Normal [facility] Absolute neutrophil countOrd ered By: Gabriel Rucker on 06-13-2024 Neutrophils (Bld) [#/Vol] 6.2 10*3/uL 2.0-7.7 [facility] Anion gap in Serum or Plasma Ordered By: Gabriel Rucker on 06-13-2024 Anion gap [Moles/Vol] 10 mmol/L 5-15 [facility] Assessment of wrist artery p atency prior to arterial punctureOrdered By: Gabriel Rucker on 06-13-2024 Shirin Test Positive Normal [facility] Comment on above: Performed By: #### L 9000.0800 #### [facility] [address] [facility] [address] Atypical lymphocyte percenta geOrdered By: Gabriel Rucker on 06-13-2024 Atypical Lymphocytes 2+ % [facility] BUN/creatinine ratioOrdered By: Gabriel Rucker on 06-13-2024 Urea nitrogen/Creatinine [Mass ratio] 24.6 mg/mg High 10-20 [facility] Base excess Calc (BldV) [Mol es/Vol]Ordered By: Gabriel Rucker on 06-13-2024 Blood Gas Base Excess 2 mmol/L -2-2 [facility] Basic Metabolic Profile (BMP )on 06-13-2024 BUN/CRE 24.6 RATIO High 10-20 [facility] Comment on above: Performed By: #### L 501.080 #### [facility] [address] [place], [address] Calcium [Mass/Vol] 9.1 mg/dL Normal 7.6-11.0 [facility] Comment on above: Performed By: #### L 501.080 #### [facility] [address] [facility] [address] Chloride [Moles/Vol] 104 mmol/L Normal 98-108 [facility] Comment on above: Performed By: #### L 501.080 #### [facility] [address] [facility] [address] CO2 [Moles/Vol] 26.5 mmol/L Normal 21.0-32.0 [facility] Comment on above: Performed By: #### L 501.080 #### [facility] [address] [place], [address] Creatinine [Mass/Vol] 1.14 mg/dL Normal 0.70-1.20 [facility] Comment on above: Performed By: #### L 501.080 #### [facility] [address] [place], [address] ECRCL 61.75 ml/min Normal 50-250 [facility] Comment on above: Performed By: #### L 501.080 #### [facility] [address] [place], [address] GAP 10 Normal 5-15 [facility] Comment on above: Performed By: #### L 501.080 #### [facility] [address] [place], [address] GFR/1.73 sq M.predicted among non-blacks MDRD (S/P/Bld) [Vol rate/Area] 49 mL/min/{1.73_m2} Low >60 [facility] Comment on above: Result Comment: mL/m in/1.73m2 CKD-EPI Creatinine Equation (2020) Performed By: #### L 501.080 #### [facility] [address] [place], [address] Glucose [Mass/Vol] 154 mg/dL High 70-99 [facility] Comment on above: Performed By: #### L 501.080 #### [facility] [address] [place], [address] Potassium [Moles/Vol] 4.2 mmol/L Normal 3.3-5.1 [facility] Comment on above: Performed By: #### L 501.080 #### [facility] [address] [place], [address] Sodium [Moles/Vol] 141 mmol/L Normal 133-145 [facility] Comment on above: Performed By: #### L 501.080 #### [facility] [address] [place], [address] Urea nitrogen [Mass/Vol] 28 mg/dL High 4-19 [facility] Comment on above: Performed By: #### L 501.080 #### [facility] [address] [place], [address] Basophil percentageOrdered B y: Gabriel Rucker on 06-13-2024 Basophils/100 WBC (Bld) 0.3 % 0-[address] [facility] Bilirubin Test strip Ql (U)O rdered By: Estela Brionna on 06-13-2024 Bilirubin Ql (U) Negative Negative [facility] Blood Gases by CPSon 025 Base excess Calc (Bld) [Moles/Vol] 2 mmol/L Normal -2 to +2 [facility] Comment on above: Performed By: #### L 9000.0800 #### [facility] [address] [place], [address] Blood Gas Type ART Normal [facility] Comment on above: Performed By: #### L 9000.0800 #### [facility] [address] [place], [address] CO2 [Moles/Vol] 31 mmol/L Normal [facility] Comment on above: Performed By: #### L 9000.0800 #### [facility] [address] [place], [address] Comment 20/10 cmH2O Normal [facility] Comment on above: Performed By: #### L 9000.0800 #### [facility] [address] [place], [address] FI02 40.0 Normal [facility] Comment on above: Performed By: #### L 9000.0800 #### [facility] [address] [place], [address] HCO3 (Bld) [Moles/Vol] 28.9 mmol/L High 22-[address] [facility] Comment on above: Performed By: #### L 9000.0800 #### [facility] [address] [place], [address] Mode Not entered Normal [facility] Comment on above: Performed By: #### L 9000.0800 #### [facility] [address] [place], [address] O2 Delivery Dev BiPAP Normal [facility] Comment on above: Performed By: #### L 9000.0800 #### [facility] [address] [place], [address] pCO2 60.6 mmHg High 35-45 [facility] Comment on above: Performed By: #### L 9000.0800 #### [facility] [address] [place], [address] pH (Bld) 7.29 [pH] Low 7.35-7.45 [facility] Comment on above: Performed By: #### L 9000.0800 #### [facility] [address] [place], [address] PO2 81 mmHG Normal 75-100 [facility] Comment on above: Performed By: #### L 9000.0800 #### [facility] [address] [place], [address] RR 12 Normal [facility] Comment on above: Performed By: #### L 9000.0800 #### [facility] [address] [place], [address] SITE L Radial Normal [facility] Comment on above: Performed By: #### L 9000.0800 #### [facility] [address] [place], [address] SO2 94 Low 95-99 [facility] Comment on above: Performed By: #### L 9000.0800 #### [facility] [address] [place], [address] Blood bicarbonate measuremen tOrdered By: Gabriel Rucker on 06-13-2024 Blood Gas Bicarbonate Actual 28.9 mmol/L High 22-26 [facility] Blood cultureOrdered By: Michaela Rucker on 06-13-2024 Bacteria identified Cx Nom (Bld) No growth in 5 days. [facility] CBC W/Diff, Automatedon 04- ATYPICAL LYMPH 2+ Normal [facility] Comment on above: Performed By: #### L 501.080 #### [facility] [address] [place], [address] REACTIVE LYMPH 1+ Normal [facility] Comment on above: Performed By: #### L 501.080 #### [facility] [address] [place], [address] Carbon dioxide, total [Moles /volume] in Central venous bloodOrdered By: Gabriel Rucker on 06-13-2024 CO2 [Moles/Vol] 26.5 mmol/L 21.0-32.0 [facility] Chest 1 View (Portable)on Chest 1 View (Portable) [facility] Imaging Services [address] [place] [address] Chest 1 View (Portable) MR#: [id number] Acct: [id number] Name: TOD HUNT Rep #: [id number] : 1945 F 78 From: Jan Medeiros DO PCP: Dr. Socrates Spangler MD Status: REG ER Study: Chest 1 View (Portable) Date of Exam: 06/13/24 Exam# [id number] Ordering Dr: Gabriel Rucker DO PROCEDURE: CHEST 1 VIEW (PORTABLE) 06/13/2024 REASON FOR EXAM: DYSPNEA TECHNIQUE: Frontal view of the chest. COMPARISON: None FINDINGS: Hardware: None Heart: There is severe cardiomegaly. Lungs: Right perihilar airspace opacities. No pneumothorax. Small left pleural effusion. Bones: The bones are unremarkable. Other: RAD/Chest 1 View (Portable) IMPRESSION: Marked cardiomegaly with right perihilar airspace opacities, may represent congestion/edema versus infection. Small left pleural effusion. Reading Location: [facility] CC: Dr. Socrates Spangler MD; Dr. Gabriel Rucker DO Lead Refinery Supervisor: Signed Normal [facility] Chloride assayOrdered By: Zena Rucker on 06-13-2024 Chloride [Moles/Vol] 104 mmol/L 98-108 [facility] D-Dimer Quantitative (DVT/PE )on 06-13-2024 D-DIMER QUANT 1.63 FEU/ug/m Invalid Interpretation Code 0.27-0.49 [facility] Comment on above: Order Comment: CRITI RUDI VALUE CALLED TO AL EARLY Joanna Meier.RESULTS READ BACK BY SAME. Result Comment: D-Di pearl ELEVATED (>0.49): Additional studies and clinical assessments are indicated to conclude diagnosis of: Deep Vein Thrombosis (DVT) or Pulmonary Embolism (PE) Performed By: #### L 501.080 #### [facility] [address] [facility] [place], [address] D-dimer measurement for deep venous thrombosisOrdered By: Gabriel Rucker on 06-13-2024 D-Dimer Quantitative (PE/DVT) 1.63 FEU/ug/m High 0.27-0.49 [facility] Comment on above: D-Dimer ELEVATED (>0 .49): Additional studies and clinicalassessments are indicated to conclude diagnosis of:Deep Vein Thrombosis (DVT) or Pulmonary Embolism (PE) Determination of fraction of inspired oxygenOrdered By: Gabriel Rucker on 06-13-2024 Blood Gas Oxygen Percent 40.0 [facility] Emergency Department Summary on 06-13-2024 Emergency Department Summary [facility] Medical Records Department [address] [place] [address] Emergency Department Summary 06/13/24 MR#: [id number] Acct: [id number] Name: TOD HUTN Rep #: [id number] : 1945 78 From: Gabriel Rucker DO PCP: Dr. Socrates Spangler MD Status:ADM IN Location: [address] History of Present Illness Chief Complaint: Shortness of Breath Detail of Chief Complaint: Shortness of breath Informant: patient and EMS Narrative Narrative: Patient presents to the emergency department complaint shortness of breath started today. Normally she wears CPAP at night for obstructive sleep apnea. On EMS arrival her O2 sat was in the 70s. Patient denies chest pain. She denies recent illness. She has had a slight cough. She has not had any fever. Denies recent travel or surgery. [facility] Medical History (Updated 06/13/24 @ 21:[address] Gabrile Rucker DO) CKD (chronic kidney disease), stage III Hypothyroidism Allergic rhinitis GERD (gastroesophageal reflux disease) Obstructive sleep apnea Hyperlipidemia Hypertension Type 2 diabetes mellitus Morbid obesity Home Medications ???Medication ???Instructions ???Recorded ???Last Taken ???Type Omeprazole [Prilosec] 40 mg PO DAILY 05/12/16 05/12/16 0 8:00 History amlodipine 5 mg tablet 5 mg PO DAILY 05/12/16 05/12/16 08 :00 History atorvastatin 20 mg tablet 20 mg PO QHS 05/12/16 05/11/16 22: 00 History fexofenadine 180 mg tablet 180 mg PO DAILY 05/12/16 05/12/16 08:00 History hydrocortisone 2.5 % topical cream 1 applicatio topical BID 7 Unknown History insulin glargine 100 unit/mL (3 50 units subcut QHS 05/12/1605/11 22:00 History mL) subcutaneous pen (Lantus Solostar U-100 Insulin) levothyroxine 100 mcg tablet 100 mcg PO DAILY 05/12/16 05/12/16 06:00 History losartan 100 1 tab PO DAILY 05/12/16 05/12/16 0 8:00 History mg-hydrochlorothiazide 25 mg tablet (Hyzaar) metformin 500 mg 24 hr 1,000 mg PO BIDAC 05/12/16 7 08:00 History tablet,extended release (gastric retention) metoprolol tartrate 50 mg tablet 50 mg PO BID 05/12/16 05/12/16 08: 00 History montelukast 10 mg tablet 10 mg PO QHS 05/12/16 05/11/16 22: 00 History (Singulair) potassium chloride 10 mEq 10 meq PO BID 05/12/16 05/12/16 08 :00 History tablet,extended release(part/cryst) docusate sodium 100 mg capsule 200 mg (2 x 100 mg) PO BID 7 Unknown Rx (DOK) enoxaparin 40 mg/0.4 mL 40 mg (0.4 mL) subcut BID ##28 05/28 Unknown Rx subcutaneous syringe insulin aspart U-100 100 unit/mL 0 units (0 mL) subcut ACHS 7 Unknown Rx (3 mL) subcutaneous pen (Novolog FlexPen U-100 Insulin aspart) magnesium oxide 400 mg (241.3 mg 400 mg PO BID ##60 05/14/16 Unknow n Rx magnesium) tablet nystatin 100,000 unit/gram topical 1 applic topical BID 05/14/16 Un known Rx powder (Nyamyc) oxycodone 5 mg tablet 5 mg PO Q4H PRN PRN Moderate Pain 05/14/16 Unknown Rx (pain scale 4-5) ##20 Allergy/AdvReac Type Severity Reaction Status Date / Time lisinopril Allergy Unknown Verified 05/12/16 17:40 pollen extracts Allergy Itching Verified 05/12/16 17:40 Surgical History (Updated 06/13/24 @ 20:[address] Estela Staton MD) S/P cholecystectomy Social History (Updated 06/13/24 @ 20:[address] Estela Staton MD) household members: spouse Smoking Status: Never smoker alcohol intake: never substance use type: does not use ROS ROS ED Review of Systems ROS Unobtainable: other Constitutional Constitutional ED: Reports lethargy; Denies chills, fever(s), sweats or weight loss Eyes Eyes: Denies blurry vision, change in vision or diplopia ENT ENT ED: Denies rhinorrhea or sore throat Cardiovascular Cardiovascular: Denies chest pain, orthopnea or racing heartbeat Respiratory/Chest Respiratory/Chest: Reports cough, dyspnea and dyspnea on exertion; Denies orthopnea or sputum Gastrointestinal Gastrointestinal: Denies abdominal pain, diarrhea, nausea or vomiting Genitourinary Genitourinary ED: Denies dysuria, hematuria or urinary frequency Musculoskeletal Musculoskeletal: Denies arthralgias, back pain, myalgias or neck pain Integumentary Denies abscess, Abrasions or rash Neurologic Neurologic: Denies headache(s) or weakness Psychiatric Psychiatric: Denies anxiety, depression or suicidal thoughts Endocrine Endocrinology: Denies polydipsia, polyphagia or polyuria Hematologic/Lymphatic Hematologic/Lymphatic: Denies easy bleeding, easy bruising or lymphadenopathy Allergic/Immunologic Allergic/Immunologic ED: Denies mouth swelling, tongue swelling or urticaria EXAM Physical Exam Const Vital Signs: 06/13/24 19:39 06/13/24 19:39 06/13/24 19:40 Temperature 97.4 F L Temperature Source Axillary Pul (more content not included)... Normal [facility] Eosinophil percentageOrdered By: Gabriel Rucker on 06-13-2024 Eosinophils/100 WBC (Bld) 0.7 % 0-5 [facility] Epithelial cells.squamous LM Ql (Urine sed)Ordered By: Estela Staton on 06-13-2024 Epithelial cells.squamous LM.HPF (Urine sed) [#/Area] 0 /[HPF] 5-10 [facility] Erythrocyte distribution wid th (RBC) [Ratio]Ordered By: Gabriel Rucker on 06-13-2024 Erythrocyte distribution width (RBC) [Entitic vol] 50.9 fL High 35.1-43.9 [facility] Erythrocyte distribution wid th ratioOrdered By: Gabriel Rucker on 06-13-2024 Erythrocyte distribution width (RBC) [Ratio] 15.3 % High 11.6-14.6 [facility] Estimation of creatinine alex aranceOrdered By: Gabriel Rucker on 06-13-2024 Estimated Creatinine Clearance Calc 61.75 ml/min 50-250 [facility] GFR/1.73 sq M.predicted bradford g non-blacks MDRD (S/P/Bld) [Vol rate/Area]Ordered By: Gabriel Rucker on 06-13-2024 Estimated GFR (MDRD) Non-Af Amer 49 Low >60 [facility] Comment on above: mL/min/1.73m2 CKD-EP I Creatinine Equation (2020) Glucose Ql (U)Ordered By: Alannah Staton on 06-13-2024 Glucose (U) [Mass/Vol] 1000 mg/dL High Normal [facility] H AND P Exam - Hospitaliston 06-13-2024 H&P Exam - Hospitalist [facility] Medical Records Department [address] [place] [address] H P Exam - Hospitalist 06/13/242126 MR#: [id number] Acct: [id number] Name: TOD HUNT Rep #: [id number] : 1945 78 From: Estela Staton MD PCP: Dr. Socrates Spangler MD Status:ADM IN Location: [place] [address] HPI - General General Date of Admission: 06/13/24 Date of Service: 06/13/24 Chief Complaint: Dyspnea. HPI Narrative The patient is an 78 y/o F w/ PMHx: CKD stage III unclear subtype per GFR trending, Morbid obesity with significantly chronically limited mobility normally using predominantly wheelchair/Hypoventilati on Syndrome, HTN, HLD, JAYA on CPAP q HS w/ oxygen at night, Diabetes mellitus type II, Hypothyroidism, Allergic rhinitis, GERD who presents to the [facility] ED on 06/13/24 with history of dyspnea, onset on day of presentation prompting EMS call noted to be 70% upon their arrival with recent slight cough without marked production, mild congestion and rhinorrhea but no marked other URI type symptoms or productive sputum nor any recent fever/chills. She denies any recent surgery or prolonged travel. Workup in the ED included T97.4 Axillary, heart rate 85, BP 156/66, respiratory rate 22, initially 70% room air transition to BiPAP noted to be 95% on 50% FiO2, D-dimer 1.63, CBC with WBC 15.4, hemoglobin 16.1, MCV 91.3, platelet 231 with lymphocytosis, BMP with BUN/creatinine 28/1.14, GFR 49, glucose 154 otherwise unremarkable, initial troponin 34, BNP 11,672, lactic acid 1.4, rapid SARS COVID/influenza/RSV negative, blood culture x 2 pending per ED, CXR with possible RLL infilrate, EKG with SR with 1 AVB with no acute evidence of ischemia. ED attempt to obtain CTPA however patient was unable to fit in the CT scanner. ED physician is obtaining BL LE duplex US and ABG per discussion which is pending upon evaluation request of patient. In the ED patient ministered Solu-Medrol 125 mg IV x 1, lasix 40 mg IV x 1, levaquin 750 mg IV x 1. [facility]LY [facility] Medical History CKD (chronic kidney disease), stage III Hypothyroidism Allergic rhinitis GERD (gastroesophageal reflux disease) Obstructive sleep apnea Hyperlipidemia Hypertension Type 2 diabetes mellitus Morbid obesity Home Medications ???Medication ???Instructions ???Recorded ???Last Taken ???Type Omeprazole [Prilosec] 40 mg PO DAILY 05/12/16 05/12/16 0 8:00 History amlodipine 5 mg tablet 5 mg PO DAILY 05/12/16 05/12/16 08 :00 History atorvastatin 20 mg tablet 20 mg PO QHS 05/12/16 05/11/16 22: 00 History fexofenadine 180 mg tablet 180 mg PO DAILY 05/12/16 05/12/16 08:00 History hydrocortisone 2.5 % topical cream 1 applicatio topical BID 7 Unknown History insulin glargine 100 unit/mL (3 50 units subcut QHS 05/12/1605/11 22:00 History mL) subcutaneous pen (Lantus Solostar U-100 Insulin) levothyroxine 100 mcg tablet 100 mcg PO DAILY 05/12/16 05/12/16 06:00 History losartan 100 1 tab PO DAILY 05/12/16 05/12/16 0 8:00 History mg-hydrochlorothiazide 25 mg tablet (Hyzaar) metformin 500 mg 24 hr 1,000 mg PO BIDAC 05/12/16 7 08:00 History tablet,extended release (gastric retention) metoprolol tartrate 50 mg tablet 50 mg PO BID 05/12/16 05/12/16 08: 00 History montelukast 10 mg tablet 10 mg PO QHS 05/12/16 05/11/16 22: 00 History (Singulair) potassium chloride 10 mEq 10 meq PO BID 05/12/16 05/12/16 08 :00 History tablet,extended release(part/cryst) docusate sodium 100 mg capsule 200 mg (2 x 100 mg) PO BID 7 Unknown Rx (DOK) enoxaparin 40 mg/0.4 mL 40 mg (0.4 mL) subcut BID ##28 05/28 Unknown Rx subcutaneous syringe insulin aspart U-100 100 unit/mL 0 units (0 mL) subcut ACHS 7 Unknown Rx (3 mL) subcutaneous pen (Novolog FlexPen U-100 Insulin aspart) magnesium oxide 400 mg (241.3 mg 400 mg PO BID ##60 05/14/16 Unknow n Rx magnesium) tablet nystatin 100,000 unit/gram topical 1 applic topical BID 05/14/16 Un known Rx powder (Nyamyc) oxycodone 5 mg tablet 5 mg PO Q4H PRN PRN Moderate Pain 05/14/16 Unknown Rx (pain scale 4-5) ##20 Allergy/AdvReac Type Severity Reaction Status Date / Time lisinopril Allergy Unknown Verified 05/12/16 17:40 pollen extracts Allergy Itching Verified 05/12/16 17:40 Family History (Updated 06/13/24 @ 22:[address] Estela tSaton MD) Mother Diabetes Heart disease Hypertension Father Diabetes Cancer Heart disease Alzheimer dementia Surgical History (Updated 06/13/24 @ 22:[address] Estela Staton MD) History of ankle surgery S/P cholecystectomy Social History household members: spouse Smoking Status: Never smoker alcohol intake: never substance use type: does no (more content not included)... Normal [facility] Hematocrit Auto (Bld) [Volum e fraction]Ordered By: Gabriel Rucker on 06-13-2024 Hematocrit (Bld) [Volume fraction] 53.3 % High 37-47 [facility] Hemoglobin measurementOrdere d By: Gabriel Rucker on 06-13-2024 Hemoglobin (Bld) [Mass/Vol] 16.1 g/dL High 12.0-15.0 [facility] Immature granulocytes/100 WB C Auto (Bld)Ordered By: Gabriel Rucker on 06-13-2024 Immature granulocytes/100 WBC (Bld) 0.300 % 0.0-0.9 [facility] Comment on above: IG% - Immature Granu locytes (promyelocytes, myelocytes and metamyelocytes) > 1% indicates that a LEFT SHIFT is Present. Influenza virus A and B and SARS-CoV-2 (COVID-19) and Respiratory syncytial virus RNAOrdered By: Gabriel Rucker on 06-13-2024 SARS-CoV-2 (COVID-19) RNA SAMMY+probe Ql (Unsp spec) [facility] Ketones Test strip Ql (U)Ord ered By: Estela White on 06-13-2024 Ketones Ql (U) Negative Negative [facility] L499.0042on 06-13-2024 Trop T High Sen 45 ng/L High <=14 [facility] Comment on above: Performed By: #### L 501.080 #### [facility] [address] [place], [address] L501.4021on 06-13-2024 Trop T High Sen 34 ng/L High <=14 [facility] Comment on above: Performed By: #### L 501.080 #### [facility] [address] [place], [address] L503.7505on 06-13-2024 Natriuretic peptide B (Bld) [Mass/Vol] 24747 pg/mL High <=1800 [facility] Comment on above: Result Comment: Hear t Failure Unlikely: < 300 pg/mL Heart Failure Likely < 50 Years: > 450 pg/mL 50-75 Years: > 900 pg/mL >75 Years: > 1800 pg/mL Performed By: #### L 501.080 #### [facility] [address] [place], [place], [address] Laboratory - Chemistry and C hemistry - challengeOrdered By: Gabriel Rucker on 06-13-2024 Natriuretic peptide B (Bld) [Mass/Vol] 52193 pg/mL High <1800 [facility] Comment on above: Heart Failure Unlike ly: < 300 pg/mLHeart Failure Likely< 50 Years: > 450 pg/mL50-75 Years: > 900 pg/mL>75 Years: > 1800 pg/mL Lactic Acidon 06-13-2024 Lactate [Moles/Vol] 1.4 mmol/L Normal 0.0-2.0 [facility] Comment on above: Order Comment: Y Performed By: #### L 501.080 #### [facility] [address] [place], [place], [id number] Lactic acid measurementOrder ed By: Gabriel Rucker on 06-13-2024 Lactate [Moles/Vol] 1.4 mmol/L 0.0-2.0 [facility] Lymphocytes Auto (Unsp spec) [#/Vol]Ordered By: Gabriel Rucker on 06-13-2024 Lymphocytes (Bld) [#/Vol] 8.27 10*3/uL High 0.83-4.51 [facility] Lymphocytes/100 WBC Auto (Un sp spec)Ordered By: Gabriel Rucker on 06-13-2024 Lymphocytes/100 WBC (Bld) 53.9 % High 19-41 [facility] M100.678on 06-13-2024 M100.678 Pending SARS-CoV-2 (COVID 19) Negative INFLUENZA A Negative INFLUENZA B Negative RSV PCR Negative Normal [facility] Comment on above: Performed By: #### L 9000.0800 #### [facility] [address] [place], [place], [id number] MCV (mean corpuscular volume ) determinationOrdered By: Gabriel Rucker on 06-13-2024 MCV (RBC) [Entitic vol] 91.3 fL 81-[address] [facility] Magnesiumon 06-13-2024 Magnesium [Mass/Vol] 1.6 mg/dL Normal 1.5-2.2 [facility] Comment on above: Order Comment: Comme nts: may add to ED labs Performed By: #### L 501.5200 #### [facility] [address] [place], [place], [id number] Magnesium (Unsp spec) [Mass/ Vol]Ordered By: Estela Staton on 06-13-2024 Magnesium [Mass/Vol] 1.6 mg/dL 1.5-2.2 [facility] Mean corpuscular hemoglobin (MCH) determinationOrdered By: Gabriel Rucker on 06-13-2024 MCH (RBC) [Entitic mass] 27.6 pg 27.0-32.0 [facility] Mean corpuscular hemoglobin concentration (MCHC) determinationOrdered By: Gabriel Rucker on 06-13-2024 MCHC (RBC) [Mass/Vol] 30.2 g/dL Low 32-36 [facility] Mean platelet volume determi nationOrdered By: Gabriel Rucker on 06-13-2024 Platelet mean volume (Bld) [Entitic vol] 9.4 fL 6.2-12.0 [facility] Microscopic analysis of urin e for red blood cells (RBC)Ordered By: Estela Staton on 06-13-2024 Urine RBC 0-5 SEEN /hpf 0-5 [facility] Monocyte percentageOrdered B y: Gabriel Rucker on 06-13-2024 Monocytes/100 WBC (Bld) 4.3 % 0-[address] [facility] Mucus LM Ql (Urine sed)Order ed By: Estela Staton on 06-13-2024 Mucus Ql (Urine sed) 0 SEEN /hpf [facility] Neutrophil percentageOrdered By: Gabriel Rucker on 06-13-2024 Neutrophils/100 WBC (Bld) 40.5 % Low 47-70 [facility] Nitrite Test strip Ql (U)Ord ered By: Estela Staton on 06-13-2024 Nitrite Ql (U) Positive High Negative [facility] No Panel InformationOrdered By: Gabriel Rucker on 06-13-2024 Blood Gas Clinical Comments 20/10 cmH2O [facility] Blood Gas Respiration Rate 12 [facility] Blood Gas Sample Site L Radial [facility] Blood Gas Specimen Type ART W [facility] Blood Gas Vent Mode Not entered [facility] Oxygen Delivery Device BiPAP [facility] Troponin T High Sensitivity 34 ng/L High <14 [facility] Nucleated red blood cell per centageOrdered By: Gabriel Rucker on 06-13-2024 Nucleated RBC/100 WBC (Bld) [Ratio] 0 % 0-5 [facility] Oxygen saturation measuremen tOrdered By: Gabriel Rucker on 06-13-2024 Blood Gas Oxygen Saturation 94 % Low 95-99 [facility] Partial pressure of carbon d ioxide measurementOrdered By: Gabriel Rucker on 06-13-2024 Arterial Blood Partial Pressure CO2 60.6 mmHg High 35-45 [facility] Partial pressure of oxygen m easurementOrdered By: Gabriel Rucker on 06-13-2024 Arterial Blood Partial Pressure O2 81 mmHG 75-100 [facility] Platelet countOrdered By: Zena Rucker on 06-13-2024 Platelets (Bld) [#/Vol] 231 10*3/uL 150-450 [facility] Potassium (Unsp spec) [Mass/ Vol]Ordered By: Gabriel Rucker on 06-13-2024 Potassium [Moles/Vol] 4.2 mmol/L 3.3-5.1 [facility] Protein Test strip Ql (U)Ord ered By: Estela Staton on 06-13-2024 Protein Ql (U) 100 mg/dl High Negative [facility] RBC Auto (Bld) [#/Vol]Ordere d By: Gabriel Rucker on 06-13-2024 RBC (Bld) [#/Vol] 5.84 10*6/uL High 4.2-5.4 [facility] Reactive lymphocyte countOrd ered By: Gabriel Rucker on 06-13-2024 Reactive Lymphocytes 1+ [facility] Respiratory pathogens DNA an d RNA panel SAMMY+probe (Resp)Ordered By: Estela Staton on 06-13-2024 Respiratory Panel (PCR) [facility] Serum creatinine measurement (mass/volume)Ordered By: Gabriel Rucker on 06-13-2024 Creatinine [Mass/Vol] 1.14 mg/dL 0.70-1.20 [facility] Serum glucose measurement (m ass/volume)Ordered By: Gabriel Rucker on 06-13-2024 Glucose [Mass/Vol] 154 mg/dL High 70-99 [facility] Serum or plasma calcium kezia urement (mass/volume)Ordered By: Gabriel Rucker on 06-13-2024 Calcium [Mass/Vol] 9.1 mg/dL 7.6-11.0 [facility] Serum or plasma urea nitroge n measurement (mass/volume)Ordered By: Gabriel Rucker on 06-13-2024 Urea nitrogen [Mass/Vol] 28 mg/dL High 4-19 [facility] Sodium levelOrdered By: Brittny Rucker on 06-13-2024 Sodium [Moles/Vol] 141 mmol/L 133-145 [facility] Total carbon dioxide measure mentOrdered By: Gabriel Rucker on 06-13-2024 Blood Gas Total CO2 31 mmol/L [facility] Troponin T.cardiac High sens itivity method [Mass/Vol]Ordered By: Gabriel Rucker on 06-13-2024 Troponin T High Sensitivity 2 Hour 45 ng/L High <14 [facility] Urinalysis, Completeon 06-13 BACTERIA 2+ /hpf Normal None Seen [facility] Comment on above: Order Comment: SHAHBAZ TER SPECIMEN Performed By: #### L 400.0001 #### [facility] [address] [place], [address] EPI,SQUAMOUS 0-5 SEEN Normal 5-10 [facility] Comment on above: Order Comment: SHAHBAZ TER SPECIMEN Performed By: #### L 400.0001 #### [facility] [address] [place], [address] RBC 0-5 SEEN Normal 0-5 [facility] Comment on above: Order Comment: SHAHBAZ TER SPECIMEN Performed By: #### L 400.0001 #### [facility] [address] [place], [address] WBC >100 SEEN Normal 0-5 [facility] Comment on above: Order Comment: SHAHBAZ TER SPECIMEN Performed By: #### L 400.0001 #### [facility] [address] [place], [address] YEAST 1+ /hpf Normal None Seen [facility] Comment on above: Order Comment: SHAHBAZ TER SPECIMEN Performed By: #### L 400.0001 #### [facility] [address] [place], [address] Mucus Ql (Urine sed) 0 SEEN Normal [facility] Comment on above: Order Comment: SHAHBAZ TER SPECIMEN Performed By: #### L 400.0001 #### [facility] [address] [place], [address] Urine blood detectionOrdered By: Estela White on 06-13-2024 Urine Occult Blood 25 /ul High Negative [facility] Urine clarityOrdered By: Cindy umn White on 06-13-2024 Clarity (U) Sl. Cloudy Clear [facility] Urine color determinationOrd ered By: Estela White on 06-13-2024 Color (U) Yellow Yellow [facility] Urine leukocyte esterase det ection by dipstickOrdered By: Estela White on 06-13-2024 Leukocyte esterase Test strip Ql (U) 500 /ul High Negative [facility] Urine pHOrdered By: Estela W alea on 06-13-2024 pH (U) 6.0 [pH] 5.0 - 8.0 [facility] Urine sediment bacteria coun t by microscopy (number/high power field)Ordered By: Brionna on 06-13-2024 Bacteria LM.HPF (Urine sed) [#/Area] 2 /[HPF] None Seen [facility] Urine specific gravity measu rementOrdered By: Estela White on 06-13-2024 Specific gravity (U) [Rel density] 1.015 1.002-1.030 [facility] Urobilinogen Ql (U)Ordered B y: Estela White on 06-13-2024 Urine Urobilinogen Normal mg/dl Normal [facility] Venous Duplex Imag/Gregg Extre mon 06-13-2024 Venous Duplex Imag/Gregg Extrem [facility] [address] [place] [address] Venous Duplex Imag/Gregg Extrem MR#: [id number] Acct: [id number] Name: TOD HUNT Rep #: [id number] : 1945 F 78 From: Jan Medeiros DO PCP: Dr. Socrates Spangler MD Status: ADM IN Study: Venous Duplex Imag/Gregg Extrem Date of Exam: Exam# [id number] Ordering Dr: Gabriel Rucker DO PROCEDURE: VENOUS DUPLEX IMAG/GREGG EXTREM 06/13/2024 REASON FOR EXAM: F 78 y/o Swelling TECHNIQUE: Grayscale color flow and doppler analysis of the bilateral lower extremity. COMPARISON: None FINDINGS: There is no intraluminal echogenicity to suggest the presence of a deep venous thrombosis. Appropriate respiratory variation, augmentation and venous compression is noted. US/Venous Duplex Imag/Gregg Extrem IMPRESSION: No deep venous thrombosis identified in the extremity. [facility] CC: Dr. Socrates Spangler MD; Dr. Gabriel Rucker DO Lead Refinery Supervisor: Signed Normal [facility] White blood cell (WBC) count Ordered By: Gabriel Rucker on 06-13-2024 WBC (Bld) [#/Vol] 15.4 10*3/uL High 4.4-11.0 [facility] White blood cell countOrdere d By: Estela Staton on 06-13-2024 Urine WBC >100 SEEN /hpf 0-5 [facility] Yeast LM.HPF (Urine sed) [#/ Area]Ordered By: Estela Staton on 06-13-2024 Urine Yeast 1+ /hpf None Seen [facility] pH (Unsp spec)Ordered By: Zena Rucker on 06-13-2024 Blood Gas pH 7.29 Low 7.35-7.45 [facility] CNOVon 12-03-2016 CNOV Office Visit (AGPOB1) BETO HUNT ([id number]) 1945 F NFRDate Time Provider Department12/03/16 2:45 PM MARQUES TORRES AGPOB1 During your visit today, we recorded the following information about you: Respiration Weight Height 16/minute 172.4 kg 1.6 Magi Pastor LPN 12/07/2016 5:22 PM SignedREVIEW OF SYSTEMS:GENERAL: Well developed, well nourished. No acute distressPAIN: Negative for pain, history of chronic pain or current treatment forchronic pain conditionsCARDIOVASCULAR : Negative for chest pain, leg swelling and palpations.MSK: Negative for joint pain, swelling, back pain, muscle pain.SKIN: Negative for lesions, rash, itching, metal sensitivityNEURO: Negative for seizure, trauma, numbness/tingling of extremities.ENDOCRINE: Diabetes Type 2 oral and insulin controlledHEMATOLOGY: Negative for excessive bleeding, clots, bleeding disorders.Sameera Naylor DPM 12/07/2016 5:22 PM SignedDOS: 05/25/16POD: 6 monthsPOV: 7Procedure: S/p ORIF ankle fracture right LEThis 70 year old female presents for follow up of ORIF right anklefracture/dislocatio n. Patient states they are doing well. Patient denies painto the ankle. Has been full weightbearing to the right LE in lace up anklebrace and new balance shoes. Patient has transferred from SNF to home, andstates she is performing home PT exercises. She has finished full course of PTat this time. Denies stiffness to the right ankle. Denies any current nausea,vomiting, fever, chills, shortness of breath, chest pain or calf pain. Patientis diabetic, and states blood sugars are well-controlled. Denies any otherpedal complaintsPAST MEDICAL HISTORYDiagnosis Date- Ankle fracture, right- Carpal tunnel syndrome of left wrist- Deformity, [place] neck, finger 02/22/2012- GERD (gastroesophageal reflux disease)- Hypothyroidism- Osteoporosis, unspecified- Other and unspecified hyperlipidemia- Personal history of colonic polyps Colon polyps- Respiratory failure (HCC) associated infection- Trigger thumb of left hand 02/22/2012- Type II or unspecified type diabetes mellitus without mention ofcomplication, uncontrolled- Unspecified hemorrhoids without mention of complication Hemorrhoids- V-tach (HCC) 01/28/2010Current Outpatient Prescriptions:LANTUS 100 unit/mL injectiondocusate sodium (COLACE) 100 mg capsule Take 100 mg by mouth twice daily.magnesium oxide 400 mg cap Take by mouth.potassium acetatefexofenadine (AMBERLY) 180 mg tablet Take 1 tablet by mouth once daily. (forsinus/allergy symptoms)levothyroxine (SYNTHROID) 100 mcg tablet Take 1 tablet by mouth daily beforebreakfast.COMPOUND ED PRESCRIPTION CPAP SUPPLIES, TUBING, FILTERS, MASK DX G47.33[facility] T[facility]CH [facility] gauge misc Test blood sugar(s) 2 daily. Dx: E11.65.Insulin: YesCOMPOUNDED PRESCRIPTION to give Influenza Vaccine.potassium chloride (KLOR-CON 10) 10 mEq tablet Take 1 tablet by mouth twicedaily.montelukast (SINGULAIR) 10 mg tablet Take 1 tablet by mouth daily at bedtime.Omeprazole (PRILOSEC) 40 mg capsule Take one(1) tablet daily.metFORMIN ER (GLUCOPHAGE XR) 500 mg 24 hr tablet Take 2 tablets by mouth twicedaily with meals.amLODIPine (NORVASC) 5 mg tablet Take 1 tablet by mouth once daily.losartan-hydrochlo rothiazide (HYZAAR) 100-25 mg per tablet Take 1 tablet bymouth once daily.metoprolol tartrate, short acting, (LOPRESSOR) 50 mg tablet Take 1 tablet bymouth twice daily.insulin needles, DISPOSABLE, (PEN NEEDLE) 31 gauge x 5/16ANDquot; ndle Use oneneedle per dose. 1 per day.COMPOUNDED PRESCRIPTION Home physical therapy with [facility] [employer] home healthDx: Z74.09, R62.81, M79.604, M79.605, M54.9blood sugar diagnostic (ONETOUCH ULTRA TEST) test strip Test blood sugars twicedaily. Dx: E11.65 Insulin: Yesinsulin glargine (LANTUS SOLOSTAR) 100 unit/mL (3 mL) inpn Inject 50 Unitssubcutaneously daily at bedtime.atorvastatin (LIPITOR) 20 mg tablet Take 1 tablet by mouth once daily.COMPOUNDED PRESCRIPTION Cpap supplies Dx:G47.33Lancets lancets Test blood sugar(s) 2 times daily. Dx: 250.00. Insulin: YesCPAP CPAP @ 17 cm of water with humidification. Mask (per patient preference)optional chin strap (if indicated) , filters, tubing, humidifier and lifetimesupplies.enoxapa rin (LOVENOX) 40 mg/0.4 mL syrg Inject 40 mg subcutaneously every 24hours.oxyCODONE ir (OXYIR) 5 mg capsule Take 5 mg by mouth every 4 hours as needed.traZODone (DESYREL) 50 mg tablet Take 1 tablet by mouth daily at bedtime.glimepiride (AMARYL) 2 mg tablet Take by mouth. take one tab at 8am and one [id number] 2.5 % cream Apply 1 application to affected area twice daily.Apply to affected area sparingly. Right elbow and neckfurosemide (LASIX) 40 mg tablet Take 0.5 tablets by mouth once daily.No current facility-administered medications for this visit.ALLERGIESAllergen Reactions- Lisinopril Cough- Pollen Itching fenton- Smoke Shortness of BreathObjective:Patient presents NWB in wheelchair in lace up ankle brace and athletic shoes.Problem focus examination to the right lower extremity:Incision sites are well healed without evidence of dehiscence. Mild edemasurrounding surgical site. No erythema. No drainage. No lymphadenopathy. Nolymphangitis. No surrounding cellulitis. No signs of infection.No pain to palpation to the right ankle overlying medial and lateral malleoli.No pain with ankle joint ROM or to palpation of anterior ankle joint. Musclestrength 5/5 for all lower extremity muscle groups right lower extremity.Patient has no pain to palpation of calf. The calf is soft, supple andnontender without evidence of DVT. Negative Leoncio's test. Satisfactoryalignment is noted.Pedal pulses are palpable. Capillary refill time is less than three seconds toall digits. Sensations are intact to light touch. Absent protective sensationnoted.Radiograp hs: 3 views of the right ankle were obtained and evaluated today,12/03/16Radiographi c evaluation: Positive disuse osteopenia noted. Trabeculation notedacross fractures. Hardware intact without breakage or loosening noted. Goodalignment of ankle joint and fractures sites.Assessment:Satisfa ctory post-operative progressPlan:The patient was educated on clinical examination findings, postoperativeprognosis and protocol. All questions were answered to patient's apparentsatisfaction.-Pa tient may continue full weightbearing to right lower extremity in athleticshoes with lace-up ankle brace.-Continue at home physical therapy exercises.-Activities as tolerated.-Patient expressed concern of ability to follow up, as she lives in [place],and has limited family resources. Plan to discuss post-operative status withDr. Bartlett, and we will decide if patient needs immediate follow up.Sameera Naylor DPM PGY-3I personally saw and evaluated the patient. I reviewed the resident's note. Maruee with the resident's assessment and plan unless otherwise noted.Marques Torres DPM, FACFASReferring Provider: SELF [[id number]]Allergies As of Date: 12/03/2016 Noted Allergy ReactionLISINOPRIL 06/24/2011 3 - CoughPOLLEN 12/13/2012 9 - Itching Comments: flowersSMOKE 10/06/2005 12 - Shortness of BreathDate Reviewed: 12/03/2016Reviewed by: Sima (Chester) Love - Fully AssessedReason for Visit: Follow Up [171] Cmt: ORIF right anklePrimary Visit Diagnosis:Closed fracture of right ankle with routine healing, subsequent encounter [P51.336N]Order(s):XR ANKLE GENERAL 3V AP/LAT/OBL RT [[id number]] Order #: [id number] as of 12/03/2016 Sig: LANTUS 100 UNIT/ML SUBCUTANEO* DOCUSATE SODIUM 100 MG CAPSULE Take 100 mg by mouth twice da* MAGNESIUM OXIDE 400 MG CAPSULE Take by mouth. POTASSIUM ACETATE FEXOFENADINE 180 MG TABLET Take 1 tablet by mouth once d* LEVOTHYROXINE 100 MCG TABLET Take 1 tablet by mouth daily * COMPOUNDED PRESCRIPTION CPAP SUPPLIES, TUBING, FILTER* ONETOUCH DELICA LANCETS 33 GA* Test blood sugar(s) 2 daily. * COMPOUNDED PRESCRIPTION HH to give Influenza Vaccine. POTASSIUM CHLORIDE ER 10 MEQ * Take 1 tablet by mouth twice * MONTELUKAST 10 MG TABLET Take 1 tablet by mouth daily * OMEPRAZOLE 40 MG CAPSULE,CARLA* Take one(1) tablet daily. METFORMIN ER 500 MG TABLET,EX* Take 2 tablets by mouth twice* AMLODIPINE 5 MG TABLET Take 1 tablet by mouth once d* LOSARTAN 100 MG-HYDROCHLOROTH* Take 1 tablet by mouth once d* METOPROLOL TARTRATE 50 MG TAB* Take 1 tablet by mouth twice * PEN NEEDLE, DIABETIC 31 GAUGE* Use one needle per dose. 1 pe* COMPOUNDED PRESCRIPTION Home physical therapy with Pe* BLOOD SUGAR DIAGNOSTIC STRIPS Test blood sugars twice daily* INSULIN GLARGINE 100 UNIT/ML * Inject 50 Units subcutaneousl* ATORVASTATIN 20 MG TABLET Take 1 tablet by mouth once d* COMPOUNDED PRESCRIPTION Cpap supplies Dx:G47.33 LANCETS Test blood sugar(s) 2 times d* CPAP CPAP @ 17 cm of water with hu* ENOXAPARIN 40 MG/0.4 ML SUBCU* Inject 40 mg subcutaneously e* OXYCODONE 5 MG CAPSULE Take 5 mg by mouth every 4 ho* TRAZODONE 50 MG TABLET Take 1 tablet by mouth daily * GLIMEPIRIDE 2 MG TABLET Take by mouth. take one tab * HYDROCORTISONE 2.5 % TOPICAL * Apply 1 application to affect* FUROSEMIDE 40 MG TABLET Take 0.5 tablets by mouth onc*Medication notes this encounter ENOXAPARIN 40 MG/0.4 ML SUBCUTANEOUS SYRINGE >> Sima Pastor LPN 12/03/2016 2:40 PM >> SIMA PASTOR LPN TueDec 03, 2016 2:40 PM Patient not taking OXYCODONE 5 MG CAPSULE >> Sima Pastor LPN 12/03/2016 2:41 PM >> SIMA PASTOR LPN TueDec 03, 2016 2:41 PM Patient not takingProblem List As Of Date 12/03/2016 Noted Resolved Diabetes mellitus (HCC) [E11.9] INVALID FOR*06/17/2015 Other malaise and fatigue [R53.81, R53.83] INVALID FOR*11/18/2015 Hypothyroidism [E03.9] INVALID FOR* Unspecified hemorrhoids without mention of comp* 11/18/2015 More... PERS HX COLONIC POLYPS [Z86.010] More... Mixed hyperlipidemia [E78.2] OSTEOPOROSIS NOS [M81.0] Other diseases of pharynx, not elsewhere classi*INVALID FOR*11/18/2015 History of ventricular tachycardia [Z86.79] INVALID FOR* More... History of respiratory failure [Z87.09] INVALID FOR* More... DDD (degenerative disc disease), lumbar [M51.36]INVALID FOR* JAYA (obstructive sleep apnea) [G47.33] INVALID FOR* Morbid obesity [E66.01] INVALID FOR* Cystocele [ACT7594] INVALID FOR* Tracheostomy in place (HCC) [Z93.0] INVALID FOR*11/18/2015 Hypertension [I10] INVALID FOR* HTN (hypertension) [I10] INVALID FOR*12/11/2011 Deformity, [place] neck, finger [M20.039] INVALID FOR* Trigger thumb of left hand [M65.312] INVALID FOR*05/12/2016 Hypokalemia [E87.6] INVALID FOR* Left carpal tunnel syndrome [G56.02] INVALID FOR*05/12/2016 Allergic rhinitis [J30.9] INVALID FOR* Uncontrolled type 2 diabetes mellitus without c*INVALID FOR* Severe muscle deconditioning [R29.898] INVALID FOR* Chronic bilateral low back pain without sciatic*INVALID FOR* Closed right ankle fracture [S82.891A] INVALID FOR*Disposition: Return will call for appointment.Follow-up and Disposition History RecordedEncounter Number: [id number] Status:Closed by MARQUES TORRES DPM on 12/07/16 Normal [facility] PROGRESSon 12-03-2016 PROGRESS HNO ID: [id number]: June (Res) DaydayServicfrancisca: (none)Author Type: ResidentType: Progress NotesFiled: 12/07/2016 5:22 PMNote Text:DOS: 05/25/16POD: 6 monthsPOV: 7Procedure: S/p ORIF ankle fracture right LEThis 70 year old female presents for follow up of ORIF right anklefracture/dislocatio n. Patient states they are doing well. Patient deniespain to the ankle. Has been full weightbearing to the right LE in lace upankle brace and new balance shoes. Patient has transferred from [facility], and states she is performing home PT exercises. She has finishedfull course of PT at this time. Denies stiffness to the right ankle.Denies any current nausea, vomiting, fever, chills, shortness of breath,chest pain or calf pain. Patient is diabetic, and states blood sugars arewell-controlled. Denies any other pedal complaintsPAST MEDICAL HISTORYDiagnosis Date- Ankle fracture, right- Carpal tunnel syndrome of left wrist- Deformity, [place] neck, finger 02/22/2012- GERD (gastroesophageal reflux disease)- Hypothyroidism- Osteoporosis, unspecified- Other and unspecified hyperlipidemia- Personal history of colonic polyps Colon polyps- Respiratory failure (HCC) associated infection- Trigger thumb of left hand 02/22/2012- Type II or unspecified type diabetes mellitus without mention ofcomplication, uncontrolled- Unspecified hemorrhoids without mention of complication Hemorrhoids- V-tach (HCC) 01/28/2010Current Outpatient Prescriptions:LANTUS 100 unit/mL injectiondocusate sodium (COLACE) 100 mg capsule Take 100 mg by mouth twice daily.magnesium oxide 400 mg cap Take by mouth.potassium acetatefexofenadine (AMBERLY) 180 mg tablet Take 1 tablet by mouth once daily.(for sinus/allergy symptoms)levothyroxine (SYNTHROID) 100 mcg tablet Take 1 tablet by mouth dailybefore breakfast.COMPOUNDED PRESCRIPTION CPAP SUPPLIES, TUBING, FILTERS, MASK DX G47.33ONE TOUCH DELICA 33 gauge misc Test blood sugar(s) 2 daily. Dx: E11.65.Insulin: YesCOMPOUNDED PRESCRIPTION HH to give Influenza Vaccine.potassium chloride (KLOR-CON 10) 10 mEq tablet Take 1 tablet by mouthtwice daily.montelukast (SINGULAIR) 10 mg tablet Take 1 tablet by mouth daily atbedtime.Omeprazole (PRILOSEC) 40 mg capsule Take one(1) tablet daily.metFORMIN ER (GLUCOPHAGE XR) 500 mg 24 hr tablet Take 2 tablets by mouthtwice daily with meals.amLODIPine (NORVASC) 5 mg tablet Take 1 tablet by mouth once daily.losartan-hydrochlo rothiazide (HYZAAR) 100-25 mg per tablet Take 1 tabletby mouth once daily.metoprolol tartrate, short acting, (LOPRESSOR) 50 mg tablet Take 1 tabletby mouth twice daily.insulin needles, DISPOSABLE, (PEN NEEDLE) 31 gauge x 5/16 ndle Use oneneedle per dose. 1 per day.COMPOUNDED PRESCRIPTION Home physical therapy with [facility] Dx: Z74.09, R62.81, M79.604, M79.605, M54.9blood sugar diagnostic (ONETOUCH ULTRA TEST) test strip Test blood sugarstwice daily. Dx: E11.65 Insulin: Yesinsulin glargine (LANTUS SOLOSTAR) 100 unit/mL (3 mL) inpn Inject 50 Unitssubcutaneously daily at bedtime.atorvastatin (LIPITOR) 20 mg tablet Take 1 tablet by mouth once daily.COMPOUNDED PRESCRIPTION Cpap supplies Dx:G47.33Lancets lancets Test blood sugar(s) 2 times daily. Dx: 250.00. Insulin:YesCPAP CPAP @ 17 cm of water with humidification. Mask (per patientpreference) optional chin strap (if indicated) , filters, tubing,humidifier and lifetime supplies.enoxaparin (LOVENOX) 40 mg/0.4 mL syrg Inject 40 mg subcutaneously every24 hours.oxyCODONE ir (OXYIR) 5 mg capsule Take 5 mg by mouth every 4 hours asneeded.traZODone (DESYREL) 50 mg tablet Take 1 tablet by mouth daily at bedtime.glimepiride (AMARYL) 2 mg tablet Take by mouth. take one tab at 8am andone at 5pmhydrocortisone 2.5 % cream Apply 1 application to affected area twicedaily. Apply to affected area sparingly. Right elbow and neckfurosemide (LASIX) 40 mg tablet Take 0.5 tablets by mouth once daily.No current facility-administered medications for this visit.ALLERGIESAllergen Reactions- Lisinopril Cough- Pollen Itching fenton- Smoke Shortness of BreathObjective:Patient presents NWB in wheelchair in lace up ankle brace and athleticshoes.Problem focus examination to the right lower extremity:Incision sites are well healed without evidence of dehiscence. Mild edemasurrounding surgical site. No erythema. No drainage. No lymphadenopathy.No lymphangitis. No surrounding cellulitis. No signs of infection.No pain to palpation to the right ankle overlying medial and lateralmalleoli. No pain with ankle joint ROM or to palpation of anterior anklejoint. Muscle strength 5/5 for all lower extremity muscle groups rightlower extremity. Patient has no pain to palpation of calf. The calf issoft, supple and nontender without evidence of DVT. Negative Leoncio'stest. Satisfactory alignment is noted.Pedal pulses are palpable. Capillary refill time is less than threeseconds to all digits. Sensations are intact to light touch. Absentprotective sensation noted.Radiographs: 3 views of the right ankle were obtained and evaluated today,12/03/16Radiographi c evaluation: Positive disuse osteopenia noted. Trabeculationnoted across fractures. Hardware intact without breakage or looseningnoted. Good alignment of ankle joint and fractures sites.Assessment:Satisfa ctory post-operative progressPlan:The patient was educated on clinical examination findings, postoperativeprognosis and protocol. All questions were answered to patient's apparentsatisfaction.-Pa tient may continue full weightbearing to right lower extremity inathletic shoes with lace-up ankle brace.-Continue at home physical therapy exercises.-Activities as tolerated.-Patient expressed concern of ability [place], [place]. Plan to discuss post-operativestatus with Dr. Bartlett, and we will decide if patient needs immediatefollow up.Sameera Naylor DPM PGY-3I personally saw and evaluated the patient. I reviewed the resident'snote. I agree with the resident's assessment and plan unless otherwisenoted.Marques Torres DPM, FACFAS [facility] PROGRESS HNO ID: [id number]: Sima ([place]) Thuy: (none)Author Type: LICENSED NURSEType: Progress NotesFiled: 12/07/2016 5:22 PMNote Text:REVIEW OF SYSTEMS:GENERAL: Well developed, well nourished. No acute distressPAIN: Negative for pain, history of chronic pain or current treatment forchronic pain conditionsCARDIOVASCULAR : Negative for chest pain, leg swelling and palpations.MSK: Negative for joint pain, swelling, back pain, muscle pain.SKIN: Negative for lesions, rash, itching, metal sensitivityNEURO: Negative for seizure, trauma, numbness/tingling of extremities.ENDOCRINE: Diabetes Type 2 oral and insulin controlledHEMATOLOGY: Negative for excessive bleeding, clots, bleeding disorders. [facility] CNOVon 10-22-2016 CNOV Office Visit (AGPOB1) BETO HUNT ([id number]) 1945 F NFRDate Time Provider Department10/22/16 1:00 PM MARQUES TORRES AGPOB1 During your visit today, we recorded the following information about you: Respiration Weight Height 16/minute 136.1 kg 1.702 Obdulia Jennings (Yanci) 10/26/2016 9:04 AM SignedREVIEW OF SYSTEMS:GENERAL: Well developed, well nourished. No acute distressPAIN: Pain NONE TODAY PT WAS SENT TO THERAPY STATES THERAPY HAS HELPED ALOTCARDIOVASCULAR: Negative for chest pain, leg swelling and palpations.MSK: swelling COMES AND GOESSKIN: Negative for lesions, rash, itching, metal sensitivityNEURO: Negative for seizure, trauma, numbness/tingling of extremities.ENDOCRINE: Diabetes Type 2 CONTROLLED WITH MEDICATIONHEMATOLOGY: Negative for excessive bleeding, clots, bleeding disorders.Marques Torres DPM 10/26/2016 9:04 AM SignedDOS: 05/25/16POD: 5 monthsPOV: 6Procedure: S/p ORIF dislocated ankle fracture right LEThis 70 year old female presents for follow up of ORIF right anklefracture/dislocatio n. Patient states they are doing well. Patient denies painto the ankle. Has been full weightbearing to the right LE in lace up anklebrace and new balance shoes. Patient has been residing at [facility]. Denies any current nausea, vomiting, fever, chills, shortness ofbreath, chest pain or calf pain. Patient is diabetic, and states blood sugarsare well-controlled. Denies any other pedal complaintsPAST MEDICAL HISTORYDiagnosis Date- Ankle fracture, right- Carpal tunnel syndrome of left wrist- Deformity, [place] neck, finger 02/22/2012- GERD (gastroesophageal reflux disease)- Hypothyroidism- Osteoporosis, unspecified- Other and unspecified hyperlipidemia- Personal history of colonic polyps Colon polyps- Respiratory failure (HCC) associated infection- Trigger thumb of left hand 02/22/2012- Type II or unspecified type diabetes mellitus without mention ofcomplication, uncontrolled- Unspecified hemorrhoids without mention of complication Hemorrhoids- V-tach (HCC) 01/28/2010Current Outpatient Prescriptions:docusate sodium (COLACE) 100 mg capsule Take 100 mg by mouth twice daily.enoxaparin (LOVENOX) 40 mg/0.4 mL syrg Inject 40 mg subcutaneously every 24hours.magnesium oxide 400 mg cap Take by mouth.oxyCODONE ir (OXYIR) 5 mg capsule Take 5 mg by mouth every 4 hours as needed.potassium acetatetraZODone (DESYREL) 50 mg tablet Take 1 tablet by mouth daily at bedtime.fexofenadine (AMBERLY) 180 mg tablet Take 1 tablet by mouth once daily. (forsinus/allergy symptoms)levothyroxine (SYNTHROID) 100 mcg tablet Take 1 tablet by mouth daily beforebreakfast.glimepir omid (AMARYL) 2 mg tablet Take by mouth. take one tab at 8am and one [id number] PRESCRIPTION CPAP SUPPLIES, TUBING, FILTERS, MASK DX G47.33hydrocortisone 2.5 % cream Apply 1 application to affected area twice daily.Apply to affected area sparingly. Right elbow and neckONE TOUCH DELICA 33 gauge misc Test blood sugar(s) 2 daily. Dx: E11.65.Insulin: YesCOMPOUNDED PRESCRIPTION HH to give Influenza Vaccine.potassium chloride (KLOR-CON 10) 10 mEq tablet Take 1 tablet by mouth twicedaily.montelukast (SINGULAIR) 10 mg tablet Take 1 tablet by mouth daily at bedtime.Omeprazole (PRILOSEC) 40 mg capsule Take one(1) tablet daily.metFORMIN ER (GLUCOPHAGE XR) 500 mg 24 hr tablet Take 2 tablets by mouth twicedaily with meals.amLODIPine (NORVASC) 5 mg tablet Take 1 tablet by mouth once daily.losartan-hydrochlo rothiazide (HYZAAR) 100-25 mg per tablet Take 1 tablet bymouth once daily.metoprolol tartrate, short acting, (LOPRESSOR) 50 mg tablet Take 1 tablet bymouth twice daily.insulin needles, DISPOSABLE, (PEN NEEDLE) 31 gauge x 5/16ANDquot; ndle Use oneneedle per dose. 1 per day.COMPOUNDED PRESCRIPTION Home physical [facility] with [facility]Dx: Z74.09, R62.81, M79.604, M79.605, M54.9blood sugar diagnostic (ONETOUCH ULTRA TEST) test strip Test blood sugars twicedaily. Dx: E11.65 Insulin: Yesinsulin glargine (LANTUS SOLOSTAR) 100 unit/mL (3 mL) inpn Inject 50 Unitssubcutaneously daily at bedtime.atorvastatin (LIPITOR) 20 mg tablet Take 1 tablet by mouth once daily.furosemide (LASIX) 40 mg tablet Take 0.5 tablets by mouth once daily.COMPOUNDED PRESCRIPTION Cpap supplies Dx:G47.33Lancets lancets Test blood sugar(s) 2 times daily. Dx: 250.00. Insulin: YesCPAP CPAP @ 17 cm of water with humidification. Mask (per patient preference)optional chin strap (if indicated) , filters, tubing, humidifier and lifetimesupplies.No current facility-administered medications for this visit.ALLERGIESAllergen Reactions- Lisinopril Cough- Pollen Itching fenton- Smoke Shortness of BreathObjective:Patient presents NWB in stretcher today from [facility] in lace up ankle brace andathletic shoes.Problem focus examination to the right lower extremity:Incision sites are well healed without evidence of dehiscence. Mild edemasurrounding surgical site. No erythema. No drainage. No lymphadenopathy. Nolymphangitis. No surrounding cellulitis. No signs of infection.No pain to palpation to the right ankle overlying medial and lateral malleoli.No pain with ankle joint ROM or to palpation of anterior ankle joint. Patienthas no pain to palpation of calf. The calf is soft, supple and nontenderwithout evidence of DVT. Negative Leoncio's test. Satisfactory alignment isnoted.Pedal pulses are palpable. Capillary refill time is less than three seconds toall digits. Sensations are intact to light touch. Absent protective sensationnoted.Radiograp hs: 3 views right ankle were obtained and evaluated today, 10/22/16Radiographic evaluation: Positive disuse osteopenia noted. Trabeculation notedacross fractures. Hardware intact without breakage or loosening noted. Goodalignment of ankle joint and fractures sites.Assessment:Satisfa ctory post-operative progressPlan:The patient was educated on clinical examination findings, postoperativeprognosis and protocol. All questions were answered to patient's apparentsatisfaction.-Pa bear may continue full weightbearing to right lower extremity in athleticshoes with lace-up ankle brace until otherwise noted.-Patient is okay to discharge from [facility] from podiatry standpoint.Progress notes and recommendations were noted in patient's paper chart.-Continue physical therapy exercises.-Activities as tolerated.-She will follow up in 6 weeks.Sameera Naylor DPM PGY-3I personally saw and evaluated the patient. I reviewed the resident's note. Iagree with the resident's assessment and plan unless otherwise noted.Marques Torres DPM, FACFASAllergies As of Date: 10/22/2016 Noted Allergy ReactionLISINOPRIL 06/24/2011 3 - CoughPOLLEN 12/13/2012 9 - Itching Comments: flowersSMOKE 10/06/2005 12 - Shortness of BreathDate Reviewed: 10/22/2016Reviewed by: Courtney Self) - Fully AssessedReason for Visit: Follow Up [171] Cmt: RIGHT ANKLE PAINPrimary Visit Diagnosis:Uncontrolled type 2 diabetes mellitus without complication, with long-term current use of insulin (HCC) [E11.65, Z79.4] Other Visit Diagnosis:Closed right ankle fracture, with routine healing, subsequent encounter [S91.436N]Order(s):XR ANKLE COMP M3V (AG,AV,EU,FV,HL,ANTONIA,MM,SP ) [1924016] Order #: [id number] as of 10/22/2016 Sig: DOCUSATE SODIUM 100 MG CAPSULE Take 100 mg by mouth twice da* ENOXAPARIN 40 MG/0.4 ML SUBCU* Inject 40 mg subcutaneously e* MAGNESIUM OXIDE 400 MG CAPSULE Take by mouth. OXYCODONE 5 MG CAPSULE Take 5 mg by mouth every 4 ho* POTASSIUM ACETATE TRAZODONE 50 MG TABLET Take 1 tablet by mouth daily * FEXOFENADINE 180 MG TABLET Take 1 tablet by mouth once d* LEVOTHYROXINE 100 MCG TABLET Take 1 tablet by mouth daily * GLIMEPIRIDE 2 MG TABLET Take by mouth. take one tab * COMPOUNDED PRESCRIPTION CPAP SUPPLIES, TUBING, FILTER* HYDROCORTISONE 2.5 % TOPICAL * Apply 1 application to affect* ONETOUCH DELICA LANCETS 33 GA* Test blood sugar(s) 2 daily. * COMPOUNDED PRESCRIPTION HH to give Influenza Vaccine. POTASSIUM CHLORIDE ER 10 MEQ * Take 1 tablet by mouth twice * MONTELUKAST 10 MG TABLET Take 1 tablet by mouth daily * OMEPRAZOLE 40 MG CAPSULE,CARLA* Take one(1) tablet daily. METFORMIN ER 500 MG TABLET,EX* Take 2 tablets by mouth twice* AMLODIPINE 5 MG TABLET Take 1 tablet by mouth once d* LOSARTAN 100 MG-HYDROCHLOROTH* Take 1 tablet by mouth once d* METOPROLOL TARTRATE 50 MG TAB* Take 1 tablet by mouth twice * PEN NEEDLE, DIABETIC 31 GAUGE* Use one needle per dose. 1 pe* COMPOUNDED PRESCRIPTION Home physical therapy with [facility]* BLOOD SUGAR DIAGNOSTIC STRIPS Test blood sugars twice daily* INSULIN GLARGINE 100 UNIT/ML * Inject 50 Units subcutaneousl* ATORVASTATIN 20 MG TABLET Take 1 tablet by mouth once d* FUROSEMIDE 40 MG TABLET Take 0.5 tablets by mouth onc* COMPOUNDED PRESCRIPTION Cpap supplies Dx:G47.33 LANCETS Test blood sugar(s) 2 times d* CPAP CPAP @ 17 cm of water with hu*Problem List As Of Date 10/22/2016 Noted Resolved Diabetes mellitus (HCC) [E11.9] INVALID FOR*06/17/2015 Other malaise and fatigue [R53.81, R53.83] INVALID FOR*11/18/2015 Hypothyroidism [E03.9] INVALID FOR* Unspecified hemorrhoids without mention of comp* 11/18/2015 More... PERS HX COLONIC POLYPS [Z86.010] More... Mixed hyperlipidemia [E78.2] OSTEOPOROSIS NOS [M81.0] Other diseases of pharynx, not elsewhere classi*INVALID FOR*11/18/2015 History of ventricular tachycardia [Z86.79] INVALID FOR* More... History of respiratory failure [Z87.09] INVALID FOR* More... DDD (degenerative disc disease), lumbar [M51.36]INVALID FOR* JAYA (obstructive sleep apnea) [G47.33] INVALID FOR* Morbid obesity [E66.01] INVALID FOR* Cystocele [HTZ9117] INVALID FOR* Tracheostomy in place (HCC) [Z93.0] INVALID FOR*11/18/2015 Hypertension [I10] INVALID FOR* HTN (hypertension) [I10] INVALID FOR*12/11/2011 Deformity, [place] neck, finger [M20.039] INVALID FOR* Trigger thumb of left hand [M65.312] INVALID FOR*05/12/2016 Hypokalemia [E87.6] INVALID FOR* Left carpal tunnel syndrome [G56.02] INVALID FOR*05/12/2016 Allergic rhinitis [J30.9] INVALID FOR* Uncontrolled type 2 diabetes mellitus without c*INVALID FOR* Severe muscle deconditioning [R29.898] INVALID FOR* Chronic bilateral low back pain without sciatic*INVALID FOR* Closed right ankle fracture [S82.891A] INVALID FOR*Level of Service: EST PATIENT VISIT LEVEL 3 [95151]Disposition: Return in about 6 weeks (around 12/03/2016).LOS history recordedFollow-up and Disposition History RecordedEncounter Number: [id number] Status:Closed by MARQUES TORRES DPM on 10/26/16 [facility] PROGRESSon 10-22-2016 PROGRESS HNO ID: [id number]: Marques Juares MelissaSer: (none)Author Type: PhysicianType: Progress NotesFiled: 10/26/2016 9:04 AMNote Text:DOS: 05/25/16POD: 5 monthsPOV: 6Procedure: S/p ORIF dislocated ankle fracture right LEThis 70 year old female presents for follow up of ORIF right anklefracture/dislocatio n. Patient states they are doing well. Patient deniespain to the ankle. Has been full weightbearing to the right LE in lace upankle brace and new balance shoes. Patient has been residing at [facility]. Denies any current nausea, vomiting, fever, chills,shortness of breath, chest pain or calf pain. Patient is diabetic, andstates blood sugars are well-controlled. Denies any other pedalcomplaintsPAST MEDICAL HISTORYDiagnosis Date- Ankle fracture, right- Carpal tunnel syndrome of left wrist- Deformity, [place] neck, finger 02/22/2012- GERD (gastroesophageal reflux disease)- Hypothyroidism- Osteoporosis, unspecified- Other and unspecified hyperlipidemia- Personal history of colonic polyps Colon polyps- Respiratory failure (HCC) associated infection- Trigger thumb of left hand 02/22/2012- Type II or unspecified type diabetes mellitus without mention ofcomplication, uncontrolled- Unspecified hemorrhoids without mention of complication Hemorrhoids- V-tach (HCC) 01/28/2010Current Outpatient Prescriptions:docusate sodium (COLACE) 100 mg capsule Take 100 mg by mouth twice daily.enoxaparin (LOVENOX) 40 mg/0.4 mL syrg Inject 40 mg subcutaneously every24 hours.magnesium oxide 400 mg cap Take by mouth.oxyCODONE ir (OXYIR) 5 mg capsule Take 5 mg by mouth every 4 hours asneeded.potassium acetatetraZODone (DESYREL) 50 mg tablet Take 1 tablet by mouth daily at bedtime.fexofenadine (AMBERLY) 180 mg tablet Take 1 tablet by mouth once daily.(for sinus/allergy symptoms)levothyroxine (SYNTHROID) 100 mcg tablet Take 1 tablet by mouth dailybefore breakfast.glimepiride (AMARYL) 2 mg tablet Take by mouth. take one tab at 8am andone at 5pmCOMPOUNDED PRESCRIPTION CPAP SUPPLIES, TUBING, FILTERS, MASK DX G47.33hydrocortisone 2.5 % cream Apply 1 application to affected area twicedaily. Apply to affected area sparingly. Right elbow and neckONE TOUCH DELICA 33 gauge misc Test blood sugar(s) 2 daily. Dx: E11.65.Insulin: YesCOMPOUNDED PRESCRIPTION to give Influenza Vaccine.potassium chloride (KLOR-CON 10) 10 mEq tablet Take 1 tablet by mouthtwice daily.montelukast (SINGULAIR) 10 mg tablet Take 1 tablet by mouth daily atbedtime.Omeprazole (PRILOSEC) 40 mg capsule Take one(1) tablet daily.metFORMIN ER (GLUCOPHAGE XR) 500 mg 24 hr tablet Take 2 tablets by mouthtwice daily with meals.amLODIPine (NORVASC) 5 mg tablet Take 1 tablet by mouth once daily.losartan-hydrochlo rothiazide (HYZAAR) 100-25 mg per tablet Take 1 tabletby mouth once daily.metoprolol tartrate, short acting, (LOPRESSOR) 50 mg tablet Take 1 tabletby mouth twice daily.insulin needles, DISPOSABLE, (PEN NEEDLE) 31 gauge x 5/16 ndle Use oneneedle per dose. 1 per day.COMPOUNDED PRESCRIPTION Home physical therapy with [facility] Dx: Z74.09, R62.81, M79.604, M79.605, M54.9blood sugar diagnostic (ONETOUCH ULTRA TEST) test strip Test blood sugarstwice daily. Dx: E11.65 Insulin: Yesinsulin glargine (LANTUS SOLOSTAR) 100 unit/mL (3 mL) inpn Inject 50 Unitssubcutaneously daily at bedtime.atorvastatin (LIPITOR) 20 mg tablet Take 1 tablet by mouth once daily.furosemide (LASIX) 40 mg tablet Take 0.5 tablets by mouth once daily.COMPOUNDED PRESCRIPTION Cpap supplies Dx:G47.33Lancets lancets Test blood sugar(s) 2 times daily. Dx: 250.00. Insulin:YesCPAP CPAP @ 17 cm of water with humidification. Mask (per patientpreference) optional chin strap (if indicated) , filters, tubing,humidifier and lifetime supplies.No current facility-administered medications for this visit.ALLERGIESAllergen Reactions- Lisinopril Cough- Pollen Itching fenton- Smoke Shortness of BreathObjective:Patient presents NWB in stretcher today from [facility] in lace up ankle braceand athletic shoes.Problem focus examination to the right lower extremity:Incision sites are well healed without evidence of dehiscence. Mild edemasurrounding surgical site. No erythema. No drainage. No lymphadenopathy.No lymphangitis. No surrounding cellulitis. No signs of infection.No pain to palpation to the right ankle overlying medial and lateralmalleoli. No pain with ankle joint ROM or to palpation of anterior anklejoint. Patient has no pain to palpation of calf. The calf is soft, suppleand nontender without evidence of DVT. Negative Leoncio's test.Satisfactory alignment is noted.Pedal pulses are palpable. Capillary refill time is less than threeseconds to all digits. Sensations are intact to light touch. Absentprotective sensation noted.Radiographs: 3 views right ankle were obtained and evaluated today,10/22/16Radiographi c evaluation: Positive disuse osteopenia noted. Trabeculationnoted across fractures. Hardware intact without breakage or looseningnoted. Good alignment of ankle joint and fractures sites.Assessment:Satisfa ctory post-operative progressPlan:The patient was educated on clinical examination findings, postoperativeprognosis and protocol. All questions were answered to patient's apparentsatisfaction.-Pa otonielrosendo may continue full weightbearing to right lower extremity inathletic shoes with lace-up ankle brace until otherwise noted.-Patient is okay to discharge from [facility] from podiatry standpoint.Progress notes and recommendations were noted in patient's paper chart.-Continue physical therapy exercises.-Activities as tolerated.-She will follow up in 6 weeks.Sameera Naylor DPM PGY-3I personally saw and evaluated the patient. I reviewed the resident'snote. I agree with the resident's assessment and plan unless otherwisenoted.Marques Torres DPM, FACFAS [facility] PROGRESS HNO ID: [id number]: Courtney Jennings (Ma)Service: (none)Author Type: Medical AssistantType: Progress NotesFiled: 10/26/2016 9:04 AMNote Text:REVIEW OF SYSTEMS:GENERAL: Well developed, well nourished. No acute distressPAIN: Pain NONE TODAY PT WAS SENT TO THERAPY STATES THERAPY HAS HELPEDALOTCARDIOVASCULAR : Negative for chest pain, leg swelling and palpations.MSK: swelling COMES AND GOESSKIN: Negative for lesions, rash, itching, metal sensitivityNEURO: Negative for seizure, trauma, numbness/tingling of extremities.ENDOCRINE: Diabetes Type 2 CONTROLLED WITH MEDICATIONHEMATOLOGY: Negative for excessive bleeding, clots, bleeding disorders. Normal [facility] CNOVon 09-10-2016 CNOV Office Visit (AGPOB1) BETO HUNT ([id number]) 1945 F NFRDate Time Provider Department09/10/16 2:30 PM [facility] During your visit today, we recorded the following information about you: Respiration Weight Height 14/minute 136.1 kg 1.702 Mikki Bartlett DPM 09/15/2016 9:51 AM SignedDOS: 05/25/16POD: 15 weeksPOV: 5Procedure: S/p ORIF dislocated ankle fracture right LEThis 70 year old female presents for follow up ORIF right anklefracture/dislocatio n. Patient states they are doing well. Patient denies painto the ankle. Has been partial WB to the right LE in the fracture boot.Patient has been residing in skilled nursing. Denies any current nausea, vomiting,fever, chills, shortness of breath, chest pain or calf pain. Believes bloodsugars are doing well. Denies any other pedal complaintsPAST MEDICAL HISTORYDiagnosis Date- Ankle fracture, right- Carpal tunnel syndrome of left wrist- Deformity, [place] neck, finger 02/22/2012- GERD (gastroesophageal reflux disease)- Hypothyroidism- Osteoporosis, unspecified- Other and unspecified hyperlipidemia- Personal history of colonic polyps Colon polyps- Respiratory failure (HCC) associated infection- Trigger thumb of left hand 02/22/2012- Type II or unspecified type diabetes mellitus without mention ofcomplication, uncontrolled- Unspecified hemorrhoids without mention of complication Hemorrhoids- V-tach (HCC) 01/28/2010Current Outpatient Prescriptions:docusate sodium (COLACE) 100 mg capsule Take 100 mg by mouth twice daily.enoxaparin (LOVENOX) 40 mg/0.4 mL syrg Inject 40 mg subcutaneously every 24hours.magnesium oxide 400 mg cap Take by mouth.oxyCODONE ir (OXYIR) 5 mg capsule Take 5 mg by mouth every 4 hours as needed.potassium acetatefexofenadine (AMBERLY) 180 mg tablet Take 1 tablet by mouth once daily. (forsinus/allergy symptoms)COMPOUNDED PRESCRIPTION CPAP SUPPLIES, TUBING, FILTERS, MASK DX G47.33ONE TOUCH DELICA 33 gauge misc Test blood sugar(s) 2 daily. Dx: E11.65.Insulin: YesCOMPOUNDED PRESCRIPTION HH to give Influenza Vaccine.potassium chloride (KLOR-CON 10) 10 mEq tablet Take 1 tablet by mouth twicedaily.montelukast (SINGULAIR) 10 mg tablet Take 1 tablet by mouth daily at bedtime.Omeprazole (PRILOSEC) 40 mg capsule Take one(1) tablet daily.metFORMIN ER (GLUCOPHAGE XR) 500 mg 24 hr tablet Take 2 tablets by mouth twicedaily with meals.amLODIPine (NORVASC) 5 mg tablet Take 1 tablet by mouth once daily.losartan-hydrochlo rothiazide (HYZAAR) 100-25 mg per tablet Take 1 tablet bymouth once daily.metoprolol tartrate, short acting, (LOPRESSOR) 50 mg tablet Take 1 tablet bymouth twice daily.insulin needles, DISPOSABLE, (PEN NEEDLE) 31 gauge x 5/16ANDquot; ndle Use oneneedle per dose. 1 per day.COMPOUNDED PRESCRIPTION [facility] with [facility]x: Z74.09, R62.81, M79.604, M79.605, M54.9blood sugar diagnostic ([place] TEST) test strip Test blood sugars twicedaily. Dx: E11.65 Insulin: Yesinsulin glargine (LANTUS SOLOSTAR) 100 unit/mL (3 mL) inpn Inject 50 Unitssubcutaneously daily at bedtime.atorvastatin (LIPITOR) 20 mg tablet Take 1 tablet by mouth once daily.COMPOUNDED PRESCRIPTION Cpap supplies Dx:G47.33Lancets lancets Test blood sugar(s) 2 times daily. Dx: 250.00. Insulin: YesCPAP CPAP @ 17 cm of water with humidification. Mask (per patient preference)optional chin strap (if indicated) , filters, tubing, humidifier and lifetimesupplies.traZODo ne (DESYREL) 50 mg tablet Take 1 tablet by mouth daily at bedtime.levothyroxine (SYNTHROID) 100 mcg tablet Take 1 tablet by mouth daily beforebreakfast.glimepir omid (AMARYL) 2 mg tablet Take by mouth. take one tab at 8am and one ng6mndzkaziusnzxmmq 2.5 % cream Apply 1 application to affected area twice daily.Apply to affected area sparingly. Right elbow and neckfurosemide (LASIX) 40 mg tablet Take 0.5 tablets by mouth once daily.No current facility-administered medications for this visit.ALLERGIESAllergen Reactions- Lisinopril Cough- Pollen Itching fenton- Smoke Shortness of BreathObjective:Patient presents [facility].Problem focus examination to the right lower extremity:Incision sites are well healed without evidence of dehiscence. Mild edemasurrounding surgical site. No erythema. No drainage. No lymphadenopathy. Nolymphangitis. No surrounding cellulitis. No signs of infection.No pain to palpation diffusely to the right ankle overlying medial and lateralmalleoli. No pain with ankle joint ROM or to palpation of anterior ankle joint.Patient has no pain to palpation of calf. The calf is soft, supple andnontender without evidence of DVT. Negative Leoncio's test. Satisfactoryalignment is noted.Pedal pulses are palpable. Capillary refill time is less than three seconds toall digits. Sensations are intact to light touch. Absent protective sensation.Radiographs: 3 views right ankle were obtained and evaluated.Radiographic evaluation: + diffuse osteopenia noted. Trabeculation noted acrossfractures. Hardware intact without breakage or loosening noted. Good alignmentof ankle joint and fractures sites.Assessment:S/p ORIF dislocated ankle fracture right LEPlan:The patient was educated on clinical examination findings, postoperativeprognosis and protocol. All questions were answered to patient's apparentsatisfaction.- Patient may now progress full WB in pneumatic boot at that this time. Patientto do this for an additional 3 weeks. At that time, may transition to WB inlace up ankle brace. -Lace up ankle brace was fit and dispensed in officetoday. -Dispensed Rx for physical therapy exercises. Patient baseline was onlyambulatory for transfers and will thus try to get back to this level with aidof PT.Follow up 6 weeks.Oli Fontanez Lpn 09/15/2016 9:51 AM SignedREVIEW OF SYSTEMS:GENERAL: Well developed, well nourished. No acute distressPAIN: Pain Right ankleCARDIOVASCULAR: Negative for chest pain, leg swelling and palpations.MSK: joint pain Right ankleSKIN: Negative for lesions, rash, itching, metal sensitivityNEURO: Negative for seizure, trauma, numbness/tingling of extremities.ENDOCRINE: Diabetes Type 2 Currently on medidcationHEMATOLOGY: Negative for excessive bleeding, clots, bleeding disorders.Allergies As of Date: 09/10/2016 Noted Allergy ReactionLISINOPRIL 06/24/2011 3 - CoughPOLLEN 12/13/2012 9 - Itching Comments: flowersSMOKE 10/06/2005 12 - Shortness of BreathDate Reviewed: 09/10/2016Reviewed by: Екатерина Bartlett - Fully AssessedReason for Visit: Follow Up [171] Cmt: Right anklePrimary Visit Diagnosis:Ankle fracture, right, closed, with routine healing, subsequent encounter [S82.357J] Other Visit Diagnoses:Morbid obesity, unspecified obesity type (HCC) [E66.01] Uncontrolled type 2 diabetes mellitus without complication, with long-term current use of insulin (HCC) [E11.65, Z79.4]Order(s):XR ANKLE COMP M3V (AG,AV,EU,FV,HL,ANTONIA,MM,SP ) [[id number]] Order #: [id number] AFO ANKLE GAUNTLET, CUSTOM FITTED [[id number]] Order #: [id number] as of 09/10/2016 Sig: DOCUSATE SODIUM 100 MG CAPSULE Take 100 mg by mouth twice da* ENOXAPARIN 40 MG/0.4 ML SUBCU* Inject 40 mg subcutaneously e* MAGNESIUM OXIDE 400 MG CAPSULE Take by mouth. OXYCODONE 5 MG CAPSULE Take 5 mg by mouth every 4 ho* POTASSIUM ACETATE FEXOFENADINE 180 MG TABLET Take 1 tablet by mouth once d* COMPOUNDED PRESCRIPTION CPAP SUPPLIES, TUBING, FILTER* ONETOUCH DELICA LANCETS 33 GA* Test blood sugar(s) 2 daily. * COMPOUNDED PRESCRIPTION HH to give Influenza Vaccine. POTASSIUM CHLORIDE ER 10 MEQ * Take 1 tablet by mouth twice * MONTELUKAST 10 MG TABLET Take 1 tablet by mouth daily * OMEPRAZOLE 40 MG CAPSULE,CARLA* Take one(1) tablet daily. METFORMIN ER 500 MG TABLET,EX* Take 2 tablets by mouth twice* AMLODIPINE 5 MG TABLET Take 1 tablet by mouth once d* LOSARTAN 100 MG-HYDROCHLOROTH* Take 1 tablet by mouth once d* METOPROLOL TARTRATE 50 MG TAB* Take 1 tablet by mouth twice * PEN NEEDLE, DIABETIC 31 GAUGE* Use one needle per dose. 1 pe* COMPOUNDED PRESCRIPTION Home physical therapy with [facility]* BLOOD SUGAR DIAGNOSTIC STRIPS Test blood sugars twice daily* INSULIN GLARGINE 100 UNIT/ML * Inject 50 Units subcutaneousl* ATORVASTATIN 20 MG TABLET Take 1 tablet by mouth once d* COMPOUNDED PRESCRIPTION Cpap supplies Dx:G47.33 LANCETS Test blood sugar(s) 2 times d* CPAP CPAP @ 17 cm of water with hu* TRAZODONE 50 MG TABLET Take 1 tablet by mouth daily * LEVOTHYROXINE 100 MCG TABLET Take 1 tablet by mouth daily * GLIMEPIRIDE 2 MG TABLET Take by mouth. take one tab * HYDROCORTISONE 2.5 % TOPICAL * Apply 1 application to affect* FUROSEMIDE 40 MG TABLET Take 0.5 tablets by mouth onc*Problem List As Of Date 09/10/2016 Noted Resolved Diabetes mellitus (HCC) [E11.9] INVALID FOR*06/17/2015 Other malaise and fatigue [R53.81, R53.83] INVALID FOR*11/18/2015 Hypothyroidism [E03.9] INVALID FOR* Unspecified hemorrhoids without mention of comp* 11/18/2015 More... PERS HX COLONIC POLYPS [Z86.010] More... Mixed hyperlipidemia [E78.2] OSTEOPOROSIS NOS [M81.0] Other diseases of pharynx, not elsewhere classi*INVALID FOR*11/18/2015 History of ventricular tachycardia [Z86.79] INVALID FOR* More... History of respiratory failure [Z87.09] INVALID FOR* More... DDD (degenerative disc disease), lumbar [M51.36]INVALID FOR* JAYA (obstructive sleep apnea) [G47.33] INVALID FOR* Morbid obesity [E66.01] INVALID FOR* Cystocele [N81.10] INVALID FOR* Tracheostomy in place (HCC) [Z93.0] INVALID FOR*11/18/2015 Hypertension [I10] INVALID FOR* HTN (hypertension) [I10] INVALID FOR*12/11/2011 Deformity, [place] neck, finger [M20.039] INVALID FOR* Trigger thumb of left hand [M65.312] INVALID FOR*05/12/2016 Hypokalemia [E87.6] INVALID FOR* Left carpal tunnel syndrome [G56.02] INVALID FOR*05/12/2016 Allergic rhinitis [J30.9] INVALID FOR* Uncontrolled type 2 diabetes mellitus without c*INVALID FOR* Severe muscle deconditioning [R29.898] INVALID FOR* Chronic bilateral low back pain without sciatic*INVALID FOR* Closed right ankle fracture [S82.891A] INVALID FOR*Level of Service: [facility] PATIENT VISIT LEVEL 3 [[id number]]Disposition: Return in about 6 weeks (around 10/22/2016) for with Dr. Torres.Follow-up and Disposition History RecordedEncounter Number: [id number] Status:Closed by ЕКАТЕРИНА BARTLETT DPM on 09/15/16 [facility] PROGRESSon 09-10-2016 PROGRESS HNO ID: [id number]: Brigid Hebert) LittleService: (none)Author Type: LICENSED NURSEType: Progress NotesFiled: 09/15/2016 9:51 AMNote Text:REVIEW OF SYSTEMS:GENERAL: Well developed, well nourished. No acute distressPAIN: Pain Right ankleCARDIOVASCULAR: Negative for chest pain, leg swelling and palpations.MSK: joint pain Right ankleSKIN: Negative for lesions, rash, itching, metal sensitivityNEURO: Negative for seizure, trauma, numbness/tingling of extremities.ENDOCRINE: Diabetes Type 2 Currently on medidcationHEMATOLOGY: Negative for excessive bleeding, clots, bleeding disorders. Normal [facility] PROGRESS HNO ID: [id number]: Екатерина Osullivan: (none)Author Type: PhysicianType: Progress NotesFiled: 09/15/2016 9:51 AMNote Text:DOS: 05/25/16POD: 15 weeksPOV: 5Procedure: S/p ORIF dislocated ankle fracture right LEThis 70 year old female presents for follow up ORIF right anklefracture/dislocatio n. Patient states they are doing well. Patient deniespain to the ankle. Has been partial WB to the right LE in the fractureboot. Patient has been residing in skilled nursing. Denies any currentnausea, vomiting, fever, chills, shortness of breath, chest pain or calfpain. Believes blood sugars are doing well. Denies any other pedalcomplaintsPAST MEDICAL HISTORYDiagnosis Date- Ankle fracture, right- Carpal tunnel syndrome of left wrist- Deformity, [place] neck, finger 02/22/2012- GERD (gastroesophageal reflux disease)- Hypothyroidism- Osteoporosis, unspecified- Other and unspecified hyperlipidemia- Personal history of colonic polyps Colon polyps- Respiratory failure (HCC) associated infection- Trigger thumb of left hand 02/22/2012- Type II or unspecified type diabetes mellitus without mention ofcomplication, uncontrolled- Unspecified hemorrhoids without mention of complication Hemorrhoids- V-tach (HCC) 01/28/2010Current Outpatient Prescriptions:docusate sodium (COLACE) 100 mg capsule Take 100 mg by mouth twice daily.enoxaparin (LOVENOX) 40 mg/0.4 mL syrg Inject 40 mg subcutaneously every24 hours.magnesium oxide 400 mg cap Take by mouth.oxyCODONE ir (OXYIR) 5 mg capsule Take 5 mg by mouth every 4 hours asneeded.potassium acetatefexofenadine (AMBERLY) 180 mg tablet Take 1 tablet by mouth once daily.(for sinus/allergy symptoms)COMPOUNDED PRESCRIPTION CPAP SUPPLIES, TUBING, FILTERS, MASK DX G47.33ONE TOUCH DELICA 33 gauge misc Test blood sugar(s) 2 daily. Dx: E11.65.Insulin: YesCOMPOUNDED PRESCRIPTION to give Influenza Vaccine.potassium chloride (KLOR-CON 10) 10 mEq tablet Take 1 tablet by mouthtwice daily.montelukast (SINGULAIR) 10 mg tablet Take 1 tablet by mouth daily atbedtime.Omeprazole (PRILOSEC) 40 mg capsule Take one(1) tablet daily.metFORMIN ER (GLUCOPHAGE XR) 500 mg 24 hr tablet Take 2 tablets by mouthtwice daily with meals.amLODIPine (NORVASC) 5 mg tablet Take 1 tablet by mouth once daily.losartan-hydrochlo rothiazide (HYZAAR) 100-25 mg per tablet Take 1 tabletby mouth once daily.metoprolol tartrate, short acting, (LOPRESSOR) 50 mg tablet Take 1 tabletby mouth twice daily.insulin needles, DISPOSABLE, (PEN NEEDLE) 31 gauge x 5/16 ndle Use oneneedle per dose. 1 per day.COMPOUNDED PRESCRIPTION Home physical [facility] with [facility] Dx: Z74.09, R62.81, M79.604, M79.605, M54.9blood sugar diagnostic (ONETOUCH ULTRA TEST) test strip Test blood sugarstwice daily. Dx: E11.65 Insulin: Yesinsulin glargine (LANTUS SOLOSTAR) 100 unit/mL (3 mL) inpn Inject 50 Unitssubcutaneously daily at bedtime.atorvastatin (LIPITOR) 20 mg tablet Take 1 tablet by mouth once daily.COMPOUNDED PRESCRIPTION Cpap supplies Dx:G47.33Lancets lancets Test blood sugar(s) 2 times daily. Dx: 250.00. Insulin:YesCPAP CPAP @ 17 cm of water with humidification. Mask (per patientpreference) optional chin strap (if indicated) , filters, tubing,humidifier and lifetime supplies.traZODone (DESYREL) 50 mg tablet Take 1 tablet by mouth daily at bedtime.levothyroxine (SYNTHROID) 100 mcg tablet Take 1 tablet by mouth dailybefore breakfast.glimepiride (AMARYL) 2 mg tablet Take by mouth. take one tab at 8am andone at 5pmhydrocortisone 2.5 % cream Apply 1 application to affected area twicedaily. Apply to affected area sparingly. Right elbow and neckfurosemide (LASIX) 40 mg tablet Take 0.5 tablets by mouth once daily.No current facility-administered medications for this visit.ALLERGIESAllergen Reactions- Lisinopril Cough- Pollen Itching fenton- Smoke Shortness of BreathObjective:Patient presents NWB in stretcher today for nursing facility.Problem focus examination to the right lower extremity:Incision sites are well healed without evidence of dehiscence. Mild edemasurrounding surgical site. No erythema. No drainage. No lymphadenopathy.No lymphangitis. No surrounding cellulitis. No signs of infection.No pain to palpation diffusely to the right ankle overlying medial andlateral malleoli. No pain with ankle joint ROM or to palpation of anteriorankle joint. Patient has no pain to palpation of calf. The calf is soft,supple and nontender without evidence of DVT. Negative Leoncio's test.Satisfactory alignment is noted.Pedal pulses are palpable. Capillary refill time is less than threeseconds to all digits. Sensations are intact to light touch. Absentprotective sensation.Radiographs: 3 views right ankle were obtained and evaluated.Radiographic evaluation: + diffuse osteopenia noted. Trabeculation notedacross fractures. Hardware intact without breakage or loosening noted.Good alignment of ankle joint and fractures sites.Assessment:S/p ORIF dislocated ankle fracture right LEPlan:The patient was educated on clinical examination findings, postoperativeprognosis and protocol. All questions were answered to patient's apparentsatisfaction.- Patient may now progress full WB in pneumatic boot at that this time.Patient to do this for an additional 3 weeks. At that time, may transitionto WB in lace up ankle brace. -Lace up ankle brace was fit and dispensedin office today. -Dispensed Rx for physical therapy exercises. Patientbaseline was only ambulatory for transfers and will thus try to get backto this level with aid of PT.Follow up 6 weeks.Екатерина Bartlett DPM Normal [facility] Vital Signs Date Time Vital Sign Value Performing Clinician Facility 06-19-2024 16:27-0400 Body temperature 97.7 [degF] Dr. Socrates Spangler MD Work Phone: [facility] 06-19-2024 16:27-0400 Diastolic blood pressure 67 mm[Hg] Dr. Socrates Spangler MD Work Phone: [facility] 06-19-2024 16:27-0400 Heart rate 61 /min Dr. Socrates Spangler MD Work Phone: [facility] 06-19-2024 16:27-0400 Inhaled oxygen flow rate 2 L/min Dr. Socrates Spangler MD Work Phone: [facility] 06-19-2024 16:27-0400 Respiratory rate 18 /min Dr. Socrates Spangler MD Work Phone: [facility] 06-19-2024 16:27-0400 SaO2% (BldA) [Mass fraction] 95 % Dr. Socrates Spangler MD Work Phone: [facility] 06-19-2024 16:27-0400 Systolic blood pressure 150 mm[Hg] Dr. Socrates Spangler MD Work Phone: [facility] 06-19-2024 03:43-0400 Body mass index (BMI) [Ratio] 62.3 kg/m2 Dr. Socrates Spangler MD Work Phone: [facility] 06-19-2024 03:43-0400 Body weight 175.[address] Socrates Spangler MD Work Phone: [facility] 06-14-2024 11:45-0400 Body height 167.[address] Socrates Spangler MD Work Phone: [facility] 06-14-2024 03:15-0400 Inhaled oxygen concentration 30 % Dr. Socrates Spangler MD Work Phone: [facility] 06-13-2024 23:00-0400 Body temperature 98.5 [degF] Dr. Socraets Spangler MD Work Phone: [facility] 06-13-2024 23:00-0400 Diastolic blood pressure 65 mm[Hg] Dr. Socrates Spangler MD Work Phone: [facility] 06-13-2024 23:00-0400 Heart rate 60 /min Dr. Socrates Spangler MD Work Phone: [facility] 06-13-2024 23:00-0400 Inhaled oxygen concentration 40 % Dr. Socrates Spangler MD Work Phone: [facility] 06-13-2024 23:00-0400 Respiratory rate 24 /min Dr. Socrates Spangler MD Work Phone: [facility] 06-13-2024 23:00-0400 SaO2% (BldA) [Mass fraction] 96 % Dr. Socrates Spangler MD Work Phone: [facility] 06-13-2024 23:00-0400 Systolic blood pressure 135 mm[Hg] Dr. Socrates Spangler MD Work Phone: [facility] 06-13-2024 19:39-0400 Body height 152.[address] Socrates Spangler MD Work Phone: [facility] 06-13-2024 19:39-0400 Body mass index (BMI) [Ratio] 77.5 kg/m2 Dr. Socrates Spangler MD Work Phone: [facility] 06-13-2024 19:39-0400 Body weight 180.[address] Socrates Spangler MD Work Phone: [facility] Encounters Encounter Date Encounter Type Care Provider Facility Start: 06-18-2024 Non-patient / Non-visit Dr. Savanna kowalski MD -[facility] Work Phone: Start: 06-18-2024 End: 06-18-2024 ambulatory Azam Montgomery Facility:[facility] Start: 06-17-2024 Non-patient / Non-visit Dr. Azam Montgomery MD -[facility] Work Phone: Start: 06-16-2024 Non-patient / Non-visit Dr. Azam Montgomery MD -[facility] Work Phone: Start: 06-15-2024 Non-patient / Non-visit Dr. Azam Montgomery MD -[facility] Work Phone: Start: 06-14-2024 Non-patient / Non-visit Dr. Azam Montgomery MD -[facility] Work Phone: Start: 06-14-2024 ambulatory Socrates Crys Facility:[facility] Start: 06-14-2024 Non-patient / Non-visit Dr. Carlyle ROSS -[facility] Start: 06-13-2024 End: 06-19-2024 Evaluation and management of inpatient Dr. Estela Staton MD -[facility] Work Phone: Start: 06-13-2024 ambulatory Estela Staton Facility :[facility] Start: 06-13-2024 Non-patient / Non-visit Dr. Estela Staton MD -[facility] Work Phone: Start: 12-03-2016 End: 12-03-[address] [facility] Start: 10-22-2016 End: 10-22-2016 Ambulatory [facility] Start: 09-10-2016 End: 09-10-2016 Ambulatory ЕКАТЕРИНА [facility] Start: 05-24-2016 End: 05-27-2016 Evaluation and management [facility] Procedures Date Procedure Procedure Detail Performing Clinician Start: 06-16-2024 X-ray of foot, three or more views Dr. Socrates Spangler MD Work Phone: Start: 06-15-2024 Plain chest X-ray Dr. Huber Spangler MD Work Phone: Start: 06-14-2024 Gram stain microscopy D bridger Spangler MD Work Phone: Start: 06-14-2024 Legionella pneumophi la antigen assay Dr. Socrates Spangler MD Work Phone: Start: 06-14-2024 Respiratory microbia l culture Dr. Socrates Spangler MD Work Phone: Start: 06-14-2024 Streptococcus pneumo niae antigen assay Dr. Socrates Spangler MD Work Phone: Start: 06-13-2024 Plain chest X-ray Dr. Huber Spangler MD Work Phone: Start: 06-13-[address] Kamilah Spangler MD Work Phone: Start: 06-13-[address] Socrates Spangler MD Work Phone: Start: 06-13-2024 SARS-CoV-2, Influenz a & RSV (PCR) Dr. Socrates Spangler MD Work Phone: Start: 05-25-2016 REPOS RT TIBIA IF DEVC O PROVIDER UNKNOWN Plan of Treatment Date Care Activity Detail Author Start: 06-19-2024 Patient discharge [facility] Start: 06-19-2024 [facility] Start: 06-18-2024 Wound care [facility] Start: 06-18-2024 Care planning and problem solving actions [facility] Start: 06-18-2024 Care planning and problem solving actions [facility] Start: 06-16-2024 Referral to oyster culler [facility] Start: 06-16-2024 [facility] Start: 06-14-2024 [facility] [facility] Start: 06-14-2024 Consultation for treatment [facility] Start: 06-14-2024 Following clinical pathway protocol [facility] Start: 06-14-2024 Consultation [facility] Start: 06-13-2024 Application of elastic bandage [facility] Start: 06-13-2024 Assessment of risk of venous thromboembolism [facility] Start: 06-13-2024 Care regimes management [facility] Start: 06-13-2024 Elevation of affected extremity [facility] Start: 06-13-2024 Fall prevention [facility] Start: 06-13-2024 Inhalation therapy procedure [facility] Start: 06-13-2024 Insertion of catheter into peripheral vein [facility] Start: 06-13-2024 Introduction of urinary catheter [facility] Start: 06-13-2024 Measuring intake and output [facility] Start: 06-13-2024 Notification of physician [facility] Start: 06-13-2024 Oxygen therapy [facility] Start: 06-13-2024 Patient education [facility] Start: 06-13-2024 End: 06-14-2024 Patient referral to dietitian [facility] Start: 06-13-2024 Providing care according to standard [facility] Start: 06-13-2024 Provision of activity privileges [facility] Start: 06-13-2024 Referral to occupational therapist [facility] Start: 06-13-2024 Referral to service [facility] Start: 06-13-2024 End: 06-13-2024 [facility] Start: 06-13-2024 Hospital admission, emergency, from emergency room, medical nature [facility] Start: 06-13-2024 Legionella pneumophila Ag [Presence] in Urine [facility] Start: 06-13-2024 Streptococcus pneumoniae antigen assay [facility] Start: 06-13-2024 Verification routine [facility] Start: 06-13-2024 Admission procedure [facility] Start: 06-13-2024 Inhalation therapy procedure [facility] Start: 06-13-2024 End: 06-13-2024 [facility] Start: 06-13-2024 Bacteria identified in Blood by Culture Blood Culture [facility] Start: 06-13-2024 Dual pressure spontaneous ventilation support [facility] Patient Education Pneumonia Comm unity Acquired [facility] Work Phone: Patient referral [facility] Work Phone: Respiratory pathogen s DNA and RNA panel - Respiratory specimen by SAMMY with probe detection [facility] Troponin T.cardiac [Mass/volume] in Serum or Plasma by High sensitivity method [facility] Immunizations Immunization Date Immunization Notes Care Provider [facility] 05-12-[address] Socrates Spangler MD Work Phone: [facility] 05-12-2016 pneumococcal conjuga te vaccine, [address] Socrates Spangler MD Work Phone: [facility] Payers Date Payer Category Payer Self-pay 2010 Medicaid [id number] 2008 Medicare [id number] 2003 Unknown [id number] Medicare [id number] Unknown [id number] 2.16.8 [id number] Unknown [id number] 2.16.8 [id number] Unknown [id number] 2.16.8 [id number] Unknown [id number] 2.16.8 [id number] Unknown [id number] 2.16.8 [id number] Unknown [id number] 2.16.8 [id number] Unknown [id number] 2.16.8 [id number] Unknown [id number] 2.16.8 [id number] Unknown [id number] 2.16.8 [id number] Unknown [id number] 2.16.8 [id number] Social History Date Type Detail Facility Start: 06-13-2024 Tobacco smoking stat [facility] Never smoked tobacco (finding) [facility] Start: 05-12-[address] [facility] Start: 05-12-2016 Spouse/ Significant Other Spouse/ Significant Other [facility] Start: 06-13-2024 End: 06-19-2024 Sex Female (finding) [facility] Start: 1945 Sex Assigned At Female W [facility] Goals Date Patient Goal Desired Activity /State Functional Status Date Assessment Result Facility 06-19-[address] [facility] Work Phone: Mental Status Date Assessment Result Facility 06-19-2024 Cognitive function Voice/Name [facility] Work Phone: Clinical Notes 06-13-2024 to 06-19-2024 Note Date & Type Note Facility 06-19-2024 Consult note Note Date/Time June 19, 2024 3:13 pm [facility] Medical Records Department [address] [place] [address] Counseling Note - Pharmacy 06/19/24 1512 MR#: [id number] Acct: [id number] Name: TOD HUNT Rep #:[id number] : 1945 78 From: Isaac Powell PCP: Dr. Socrates Spangler MD Status:ADM I N Y Location: [place] [address] Pharmacy [facility] has performed discharge medication reconciliation and counseling for this patient. The patient's discharge medication list was reviewed for discrepancies and discrepancies were resolved. The patient was counseled on the following discharge medications and changes in medications for homegoing were reviewed. The Reason for Use, instructions for use, and potential side effects were reviewed for all new medications. The patient's questions regarding all of their medications were answered. 1. Prednisone 40 mg PO daily x 5 days 2. Augmentin 875 mg PO BID x 2 days 3. Furosemide 40 mg PO daily x 7 days 4. Eliquis 5 mg PO BID The patient was able to verbally demonstrate an understanding of their dischargemedications. Medications at Discharge Home Medications amlodipine 5 mg tablet 5 mg PO DAILY blood pressure 05/12/16 atorvastatin 20 mg tablet 20 mg PO QHS cholesterol 05/12/16 fexofenadine 180 mg tablet 180 mg PO DAILY allergies 05/12/16 hydrocortisone 2.5 % topical cream 1 applicatio topical BID rash 05/12/16 insulin glargine 100 unit/mL (3 mL) subcutaneous pen (Lantus Solostar U-100 Insulin) 50 units subcut QHS diabetes 05/12/16 levothyroxine 100 mcg tablet 100 mcg PO DAILY thyroid 05/12/16 losartan 100 mg-hydrochlorothiazide 25 mg tablet (Hyzaar) 1 tab PO DAILY blood pressure 05/12/16 Held on 06/19/24. Instructions: Resume on 06/27/24. metformin 500 mg 24 hr tablet,extended release (gastric retention) 1,000 mg PO BIDAC diabetes 05/12/16 metoprolol tartrate 50 mg tablet 50 mg PO BID blood pressure 05/12/16 potassium chloride 10 mEq tablet,extended release(part/cryst) 10 meq PO BID supplement 05/12/16 magnesium oxide 400 mg (241.3 mg magnesium) tablet 400 mg PO BID supplement #60 TABLETS 05/14/16 nystatin 100,000 unit/gram topical powder (Nyamyc) 1 applic topical BID yeast 05/14/16 oxycodone 5 mg tablet 5 mg PO Q4H PRN PRN Moderate Pain (pain scale 4-5) ##20 05/14/16 docusate sodium 100 mg capsule 200 mg PO BID stool softner 06/16/24 pantoprazole 40 mg tablet,delayed release 40 mg PO DAILY reflux 06/16/24 amoxicillin 875 mg-potassium clavulanate 125 mg tablet 1 tab PO BID 2 days #4 tabs 06/19/24 apixaban 5 mg tablet (Eliquis) 5 mg PO BID 30 days #60 tabs 06/19/24 furosemide 40 mg tablet 40 mg PO DAILY 7 days #7 tabs 06/19/24 insulin aspart U-100 100 unit/mL (3 mL) subcutaneous pen (Novolog FlexPen U-100 Insulin aspart) 1 sliding scale dose subcut ACHS diabetes 06/19/24 prednisone 20 mg tablet 40 mg (2 x 20 mg) PO DAILY 5 days #10 tabs 06/19/24 06/19/24 1513 <Electronically signed by Isaac trevino> Date _ Isaac Powell Cosigner Signature (if applicable): Date CC: ~ Signed [facility] Work Phone: 1(446) 225-862704-08-2025 Consult note [facility] Medical Records Department [address] [place] [address] Counseling Note - Pharmacy 06/19/24 1512 MR#: [id number] Acct: [id number] Name: TOD HUNT Rep #:[id number] : 1945 78 From: Isaac Powell PCP: Dr. Socrates Spangler MD Status:ADM I N Y Location: [place] [address] Pharmacy [facility] has performed discharge medication reconciliation and counseling for this patient. The patient's discharge medication list was reviewed for discrepancies and discrepancies were resolved. The patient was counseled on the following discharge medications and changes in medications for homegoing were reviewed. The Reason for Use, instructions for use, and potential side effects were reviewed for all new medications. The patient's questions regarding all of their medications were answered. 1. Prednisone 40 mg PO daily x 5 days 2. Augmentin 875 mg PO BID x 2 days 3. Furosemide 40 mg PO daily x 7 days 4. Eliquis 5 mg PO BID The patient was able to verbally demonstrate an understanding of their dischargemedications. Medications at Discharge Home Medications amlodipine 5 mg tablet 5 mg PO DAILY blood pressure 05/12/16 atorvastatin 20 mg tablet 20 mg PO QHS cholesterol 05/12/16 fexofenadine 180 mg tablet 180 mg PO DAILY allergies 05/12/16 hydrocortisone 2.5 % topical cream 1 applicatio topical BID rash 05/12/16 insulin glargine 100 unit/mL (3 mL) subcutaneous pen (Lantus Solostar U-100 Insulin) 50 units subcut QHS diabetes 05/12/16 levothyroxine 100 mcg tablet 100 mcg PO DAILY thyroid 05/12/16 losartan 100 mg-hydrochlorothiazide 25 mg tablet (Hyzaar) 1 tab PO DAILY blood pressure 05/12/16 Held on 06/19/24. Instructions: Resume on 06/27/24. metformin 500 mg 24 hr tablet,extended release (gastric retention) 1,000 mg PO BIDAC diabetes 05/12/16 metoprolol tartrate 50 mg tablet 50 mg PO BID blood pressure 05/12/16 potassium chloride 10 mEq tablet,extended release(part/cryst) 10 meq PO BID supplement 05/12/16 magnesium oxide 400 mg (241.3 mg magnesium) tablet 400 mg PO BID supplement #60 TABLETS 05/14/16 nystatin 100,000 unit/gram topical powder (Nyamyc) 1 applic topical BID yeast 05/14/16 oxycodone 5 mg tablet 5 mg PO Q4H PRN PRN Moderate Pain (pain scale 4-5) ##20 05/14/16 docusate sodium 100 mg capsule 200 mg PO BID stool softner 06/16/24 pantoprazole 40 mg tablet,delayed release 40 mg PO DAILY reflux 06/16/24 amoxicillin 875 mg-potassium clavulanate 125 mg tablet 1 tab PO BID 2 days #4 tabs 06/19/24 apixaban 5 mg tablet (Eliquis) 5 mg PO BID 30 days #60 tabs 06/19/24 furosemide 40 mg tablet 40 mg PO DAILY 7 days #7 tabs 06/19/24 insulin aspart U-100 100 unit/mL (3 mL) subcutaneous pen (Novolog FlexPen U-100 Insulin aspart) 1 sliding scale dose subcut ACHS diabetes 06/19/24 prednisone 20 mg tablet 40 mg (2 x 20 mg) PO DAILY 5 days #10 tabs 06/19/24 06/19/24 1513 r> Date _ Isaac Jacob Signature (if applicable): Date CC: ~ Signed [facility]04-08-2025 Discharge summary Author Savanna Suero [facility] Note Date/Time June 19, 2024 1:11 pm [facility] Medical Records Department [address] [place] [address] Instructions for Home/Discharge Instructions 06/19/24 1259 MR#: [id number] Acct: [id number] Name: TOD HUNT Rep #:[id number] : 1945 78 From: Savanna Suero MD PCP: Dr. Socrates Spangler MD Status:ADM I N Discharge Instructions Diet Discharge Diet: - (DASH diet) DC O2, CPAP, BIPAP needs Home O2 Discharge instructions: Yes Type of respiratory needs?: Oxygen (2) Oxygen frequency: Continuous Continuous oxygen liters per minute: 2 and CPAP CPAP oxygen liters per minute: 2 CPAP instructions: EPAP/CPAP 12 Dressing / Incision Discharge Activity: - (Increase activity as tolerated) Follow Up Care Test Results: Test results from this visit will be discussed in further detail at your follow- up appointment, if applicable. Discharge Plan Admission Admit Date/Time: 06/13/24 21:28 Primary Reason for Your Visit: Shortness of breath Attending Provider: Savanna Suero Primary Care Provider: Socrates Spangler Consulting Providers: Estela Staton; Sarabjit Dubois; Azam Montgomery Instructions Patient Instructions: Pneumonia Community Acquired Additional Instructions / Restrictions: DISCHARGE INSTRUCTIONS PLEASE READ *Please take this with you to your next doctors appointment* - It is advised you take Lasix 40 mg by mouth daily for the next 7 days, once you have completed this resume your losartan?hydrochlorothiazide. -It is advised you follow closely with your primary care physician so they can assess whether you will need to continue Lasix -Please call your primary care provider's office upon discharge to schedule a hospital follow up within 1 week. -Would recommend lab work (BMP) to check your kidney function potassium in 3 to 5 days through your primary care physician's office. Please call their office upon discharge to obtain order for lab work. -You will be discharged on an additional 5 days of prednisone 40 mg -You will be discharged another 2 days of antibiotics, Augmentin, which you willtake twice daily - You will need to follow-up closely with your outpatient physician who manages your CPAP so that a new sleep study can be coordinated -You will be discharged on 2 L of home oxygen -You were noted to have an abnormal heart rhythm, atrial fibrillation, during admission, you will continue your metoprolol and Eliquis has been added to your regimen -For any concerning signs or symptoms please call 911 or proceed to the nearest emergency department Discharge Orders/Prescriptions Prescriptions: New Eliquis 5 mg Tablet 5 mg PO BID 30 Days Qty: 60 0RF amoxicillin-pot clavulanate 875-125 mg tablet 1 tab PO BID 2 Days Qty: 4 0RF furosemide 40 mg Tablet 40 mg PO DAILY 7 Days Qty: 7 0RF prednisone 20 mg tablet 40 mg PO DAILY 5 Days Qty: 10 0RF Continued atorvastatin 20 MG tablet 20 mg PO QHS Patient Comments: cholesterol fexofenadine 180 MG tablet 180 mg PO DAILY Patient Comments: allergies amlodipine 5 MG tablet 5 mg PO DAILY Patient Comments: blood pressure levothyroxine 100 MCG tablet 100 mcg PO DAILY Patient Comments: thyroid metoprolol tartrate 50 MG tablet 50 mg PO BID Patient Comments: blood pressure potassium chloride 10 MEQ tablet 10 meq PO BID Patient Comments: supplement metformin 500 MG tablet,ER rozina.retention 24 hr 1,000 mg PO BIDAC insulin glargine [Lantus Solostar U-100 Insulin] 100 UNITS/ML insulin pen 50 units subcut QHS Patient Comments: diabetes hydrocortisone 1 APPLIC cream 1 applicatio topical BID nystatin [Nyamyc] 1 APPLIC bottle 1 applic topical BID 0RF oxycodone 5 MG tablet 5 mg PO Q4H PRN PRN (Reason: Moderate Pain (pain scale 4-5)) Qty: 20 0RF insulin aspart U-100 [Novolog FlexPen U-100 Insulin] 100 UNITS/ML insulin pen 0 units subcut ACHS 0RF magnesium oxide 400 MG tablet 400 mg PO BID Qty: 60 0RF docusate sodium 100 MG capsule 200 mg PO BID pantoprazole 40 mg tablet,delayed release (DR/EC) 40 mg PO DAILY Held losartan-hydrochlorothiazide [Hyzaar] 1 TAB tablet 1 tab PO DAILY Hold Instructions: Resume on 06/27/24. Patient Comments: blood pressure Referrals / Follow Up: Socrates Spangler MD [Primary Care Provider] - Within 1 Week Sarabjit Dubois DPM [Med Staff - Active Staff] - Disposition Disposition (needs filled in before D/C Order can be placed): Home, Self Care 06/19/24 1311<Electronically signed by Savanna Suero MD>Savanna Suero MD CC: DPMike Dubois; Dr. Estela Staton MD; Dr. Socrates Spangler MD; Dr. Azam Montgomery MD ~ Signed [facility] Work Phone: 1(346) 573-991904-08-2025 Discharge summary [facility] Medical Records Department [address] [place] [address] Instructions for Home/Discharge Instructions 06/19/24 1259 MR#: [id number] Acct: [id number] Name: TOD HUNT Rep #:[id number] : 1945 78 From: Savanna Suero MD PCP: Dr. Socrates Spangler MD Status:ADM I N Discharge Instructions Diet Discharge Diet: - (DASH diet) DC O2, CPAP, BIPAP needs Home O2 Discharge instructions: Yes Type of respiratory needs?: Oxygen (2) Oxygen frequency: Continuous Continuous oxygen liters per minute: 2 and CPAP CPAP oxygen liters per minute: 2 CPAP instructions: EPAP/CPAP 12 Dressing / Incision Discharge Activity: - (Increase activity as tolerated) Follow Up Care Test Results: Test results from this visit will be discussed in further detail at your follow- up appointment, if applicable. Discharge Plan Admission Admit Date/Time: 06/13/24 21:28 Primary Reason for Your Visit: Shortness of breath Attending Provider: Savanna Suero Primary Care Provider: Socrates Spangler Consulting Providers: Estela Staton; Sarabjit Dubois; Azam Montgomery Instructions Patient Instructions: Pneumonia Community Acquired Additional Instructions / Restrictions: DISCHARGE INSTRUCTIONS PLEASE READ *Please take this with you to your next doctors appointment* - It is advised you take Lasix 40 mg by mouth daily for the next 7 days, once you have completed this resume your losartan?hydrochlorothiazide. -It is advised you follow closely with your primary care physician so they can assess whether you will need to continue Lasix -Please call your primary care provider's office upon discharge to schedule a hospital follow up within 1 week. -Would recommend lab work (BMP) to check your kidney function potassium [facility] Please call their office upon discharge to obtain order for lab work. -You will be discharged on an additional 5 days of prednisone 40 mg -You will be discharged another 2 days of antibiotics, Augmentin, which you willtake twice daily - You will need to follow-up closely with your outpatient physician who manages your CPAP so that anew sleep study can be coordinated -You will be discharged on 2 L of home oxygen -You were noted to have an abnormal heart rhythm, atrial fibrillation, during admission, you will continue your metoprolol and Eliquis has been added to your regimen -For any concerning signs or symptoms please call 911 or proceed to the nearest emergency department Discharge Orders/Prescriptions Prescriptions: New Eliquis 5 mg Tablet 5 mg PO BID 30 Days Qty: 60 0RF amoxicillin-pot clavulanate 875-125 mg tablet 1 tab PO BID 2 Days Qty: 4 0RF furosemide 40 mg Tablet 40 mg PO DAILY 7 Days Qty: 7 0RF prednisone 20 mg tablet 40 mg PO DAILY 5 Days Qty: 10 0RF Continued atorvastatin 20 MG tablet 20 mg PO QHS Patient Comments: cholesterol fexofenadine 180 MG tablet 180 mg PO DAILY Patient Comments: allergies amlodipine 5 MG tablet 5 mg PO DAILY Patient Comments: blood pressure levothyroxine 100 MCG tablet 100 mcg PO DAILY Patient Comments: thyroid metoprolol tartrate 50 MG tablet 50 mg PO BID Patient Comments: blood pressure potassium chloride 10 MEQ tablet 10 meq PO BID Patient Comments: supplement metformin 500 MG tablet,ER rozina.retention 24 hr 1,000 mg PO BIDAC insulin glargine [Lantus Solostar U-100 Insulin] 100 UNITS/ML insulin pen 50 units subcut QHS Patient Comments: diabetes hydrocortisone 1 APPLIC cream 1 applicatio topical BID nystatin [Nyamyc] 1 APPLIC bottle 1 applic topical BID 0RF oxycodone 5 MG tablet 5 mg PO Q4H PRN PRN (Reason: Moderate Pain (pain scale 4-5)) Qty: 20 0RF insulin aspart U-100 [Novolog FlexPen U-100 Insulin] 100 UNITS/ML insulin pen 0 units subcut ACHS 0RF magnesium oxide 400 MG tablet 400 mg PO BID Qty: 60 0RF docusate sodium 100 MG capsule 200 mg PO BID pantoprazole 40 mg tablet,delayed release (DR/EC) 40 mg PO DAILY Held losartan-hydrochlorothiazide [Hyzaar] 1 TAB tablet 1 tab PO DAILY Hold Instructions: Resume on 06/27/24. Patient Comments: blood pressure Referrals / Follow Up: Socrates Spangler MD [Primary Care Provider] - Within 1 Week Sarabjit Dubois DPM [Med Staff - Active Staff] - Disposition Disposition (needs filled in before D/C Order can be placed): Home, Self Care 06/19/24 1311Pmac Suero MD CC: VINAY Dubois; Dr. Estela Staton MD; Dr. Socrates Spangler MD; Dr. Azam Montgomery MD ~ Signed [facility]04-08-2025 [facility] Medical Records Department [address] [place] [address] Discharge Summary 06/19/24 1311 MR#: [id number] Acct: [id number] Name: MARILEEBETOMELONY Rep #: [id number] : 1945 78 From: Savanna Suero MD PCP: Dr. Socrates Spangler MD Status:DIS IN Location: [facility] [id number] Providers Date of Admission: 06/13/24 Date of Discharge: 06/19/24 Primary Care Physician: Dr. 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 Clinically no [facility] EMERGENT Consult: No MD Notified: Yes Date Notified: 06/16/24 Time Notified: 12:55 Method of Notification: Verbal Reason For Visit: RESP FAILURE, POSS PNA, POSS HF Diagnosis Discharge Diagnosis (1) Acute hypoxic respiratory failure: Status: Acute Code(s): J96.01 - Plan # Acute respiratory failure secondary to community-acquired pneumonia and fluid overload # New onset A-fib RVR converted back to sinus rhythm # JAYA # Type 2 diabetes mellitus # Hypothyroidism # Morbid obesity Medications at Discharge Home Medications amlodipine 5 mg tablet 5 mg PO DAILY blood pressure 05/12/16 atorvastatin 20 mg tablet 20 mg PO QHS cholesterol 05/12/16 fexofenadine 180 mg tablet 180 mg PO DAILY allergies 05/12/16 hydrocortisone 2.5 % topical cream 1 applicatio topical BID rash 05/12/16 insulin glargine 100 unit/mL (3 mL) subcutaneous pen (Lantus Solostar U-100 Insulin) 50 units subcut QHS diabetes 05/12/16 levothyroxine 100 mcg tablet 100 mcg PO DAILY thyroid 05/12/16 losartan 100 mg-hydrochlorothiazide 25 mg tablet (Hyzaar) 1 tab PO DAILY blood pressure 05/12/16 Held on 06/19/24. Instructions: Resume on 06/27/24. metformin 500 mg 24 hr tablet,extended release (gastric retention) 1,000 mg PO BIDAC diabetes 05/12/16 metoprolol tartrate 50 mg tablet 50 mg PO BID blood pressure 05/12/16 potassium chloride 10 mEq tablet,extended release(part/cryst) 10 meq PO BID supplement 05/12/16 magnesium oxide 400 mg (241.3 mg magnesium) tablet 400 mg PO BID supplement #60 TABLETS 05/14/16 nystatin 100,000 unit/gram topical powder ([facility]) 1 applic topical BID yeast 05/14/16 oxycodone 5 mg tablet 5 mg PO Q4H PRN PRN Moderate Pain (pain scale 4-5) ##20 05/14/16 docusate sodium 100 mg capsule 200 mg PO BID stool softner 06/16/24 pantoprazole 40 mg tablet,delayed release 40 mg PO DAILY reflux 06/16/24 amoxicillin 875 mg-potassium clavulanate 125 mg tablet 1 tab PO BID 2 days #4 tabs 06/19/24 apixaban 5 mg tablet (Eliquis) 5 mg PO BID 30 days #60 tabs 06/19/24 furosemide 40 mg tablet 40 mg PO DAILY 7 days #7 tabs 06/19/24 insulin aspart U-100 100 unit/mL (3 mL) subcutaneous pen (Novolog FlexPen U-100 Insulin aspart) 1 sliding scale dose subcut ACHS diabetes 06/19/24 prednisone 20 mg tablet 40 mg (2 x 20 mg) PO DAILY 5 days #10 tabs 06/19/24 Hospital Course Summary of Care Provided Minutes Spent on Discharge: 32 Hospital Course: # Acute respiratory failure secondary to community-acquired pneumonia and fluid overload # New onset A-fib RVR converted back to sinus rhythm # JAYA # Type 2 diabetes mellitus # Hypothyroidism # Morbid obesity 78-year-old female with history as above presented 06/13/2024 with shortness of breath, on arrival to the ED her O2 sat was in the 70s and she was placed on O2 and subsequently BiPAP, she was also noted to have a cough. Chest x-ray revealed right lower lobe infiltrate there is a question of some pulmonary edema as well so patient was given Solu-Medrol, Lasix, and Levaquin and hospitalist contacted for admission. Patient slowly improved with regimen, she did have an echo 07/11/2024 that showed an EF of 60% and normal LV size and did not note any overt failure, did continue to require low amounts of O2 including with her CPAP at bedtime but respiratory status stabilized. Day prior to discharge patient did 1 A-fib with RVR which was new, she converted with amiodarone and remained in sinus rhythm back on her home dose of metoprolol. She started on Eliquis, this was discussed with her. Overall patient with fairly poor prognosis, she is bedbound at baseline but is stable from a respiratory and clinical perspective for discharge from the hospital. Patient was offered to explore skilled nursing placement on discharge but she refused. Discharge was delayed by 1 day as her hospital bed was broken creating barriers to her care and a new bed was delivered the morning of 06/19/2024 allowing for safe discharge later in the day on 06/19/2024. No new or acute complaints on the day of discharge. Discharge instructions as follows: DISCHARGE INSTRUCTIONS PLEASE READ *Please take this with you to your next doctors appointment* - It i (more content not included)...[facility]04-07-2025 Progress note Author Savanna Suero [facility] Note Date/Time June 18, 2024 5:37 pm [facility] Medical Records Department [address] [place] [address] Progress Note - Hospitalist 06/18/24 1727 MR#: [id number] Acct: [id number] Name: TOD HUNT Rep #:[id number] : 1945 78 From: Savanna Suero MD PCP: Dr. Socrates Spangler MD Status:ADM I N Location: [place] [address] Reason for Visit Reason for Visit: Diagnoses Acute respiratory failure with hypoxia (06/13/24) Contusion of right great toe without damage to nail, initial encounter (06/13/24) Subjective Subjective Overnight patient went into A-fib and now is back in sinus rhythm, reports that this makes her anxious and that she in general is just feeling very anxious and occasionally will feel confused, discussed that patient is on steroids and can cause some of the symptoms she is describing and she agrees. Breathing overall improved, still on some oxygen. She expressed concern about going home before her new hospital bed arrives given she is bedbound and her current bed is brokenand she does not feel it is safe for her to be at home, was informed that her bed will be delivered tomorrow morning so current plan is for discharge home tomorrow Objective Data Objective Data Vital Signs: Vital Signs Temp Pulse Resp BP Pulse Ox O2 Del Method O2 Flow Rate 97.9 F 71 21 H 102/87 H 95 Nasal Cannula 2 06/18/24 09:36 06/18/24 09:36 06/18/24 09:36 06/18/24 09:36 06/18/24 09:36 06/18/24 13:44 06/18/24 13:44 FiO2 30 06/14/24 03:15 Oxygen Flow Rate (L/min) 2 Oxygen Delivery Method Nasal Cannula Weight: 178.9 kg Body Mass Index (BMI) 63.6 Intake & Output: Intake and Output for Last 24 Hours 06/16/24 06/17/24 06/18/24 23:59 23:59 23:59 Intake Total 955 / 1075 720 / 840 1135.21 / 1135.21 Output Total 1575 / 1925 1750 / 2000 1100 / 1100 Balance -620 / -850 -1030 / -1160 35.21 / 35.21 Lab / Micro Data 06/18/24 05:20 06/18/24 05:20 Labs: Laboratory Results - last 24 hr 06/17/24 17:21: POC Glucose 127 H 06/17/24 21:29: POC Glucose 206 H 06/18/24 05:20: WBC 8.4, RBC 5.35, Hgb 14.8, Hct 48.2 H, MCV 90.1, MCH 27.7, MCHC 30.7 L, RDW Std Deviation 47.8 H, RDW Coeff of Ryan 14.5, Plt Count 158, MPV 9.7, Immature Gran % (Auto) 0.400, Neut % (Auto) 79.4 H, Lymph % (Auto) 16.2 L, Morehouse % (Auto) 3.9, Eos % (Auto) 0.0, Baso % (Auto) 0.1, Absolute Neuts (auto) 6.7, Absolute Lymphs (auto) 1.36, Nucleated RBC % 0, Sodium 141, Potassium 3.4, Chloride 100, Carbon Dioxide 31.0, Anion Gap 10, BUN 48 H, Creatinine 1.47 H, Estim Creat Clear Calc 51.63, Est GFR (MDRD) Non-Af 36 L, BUN/Creatinine Ratio 32.9 H, Glucose 193 H, Calcium 8.6 06/18/24 06:32: POC Glucose 179 H 06/18/24 11:27: POC Glucose 205 H 06/18/24 16:24: POC Glucose 215 H Micro: Microbiology 06/14/24 22:29 Sputum, Expectorated/Coughed Gram Stain - Final 06/14/24 22:29 Sputum, Expectorated/Coughed Respiratory Culture - Final Mixed normal respiratory hannah. No Streptococcus pneumoniae, beta-hemolytic Streptococcus or Staphylococcus aureus isolated. 06/13/24 19:40 Blood Culture (Wb) - Right Wrist Blood Culture - Preliminary No growth in 48 hours. 06/13/24 19:40 Blood Culture (Wb) - Chest Blood Culture - Preliminary No growth in 48 hours. 06/14/24 02:45 Urine Catheter - Hill Legionella Antigen - Final 06/14/24 02:45 Urine Catheter - Hill Streptococcus pneumoniae Antigen (M - Final 06/13/24 22:55 Mucosa - Nasopharyngeal Respiratory Panel (PCR) - Final 06/13/24 19:55 Mucosa - Nose SARS-CoV-2, Influenza & RSV (PCR) - Final Physical Exam Narrative General: Alert, answers questions appropriately, no apparent distress HEENT: Atraumatic, normocephalic Eyes: Anicteric, normal conjunctiva, extraocular movements grossly intact Neck: Supple Respiratory: Diminished at the bases but suspect a large portion of this is due to body habitus, normal respiratory effort Cardiovascular: Regular rate and rhythm GI: Soft, nontender, nondistended Extremities: Slight peripheral edema Musculoskeletal: Moving all extremities Neuro: No overt focal neurological deficits Skin: No rashes appreciated Psych: Cooperative Assessment & Plan Assessment/Plan (1) Acute hypoxic respiratory failure: PLAN: Plan # Acute hypoxic respiratory failure secondary to community-acquired pneumonia and fluid overload - Initial chest x-ray was congestion/edema versus infection and repeat 2 days later did appear to have fluid overload - Patient was placed on antibiotics in addition to steroids for concern for component of bronchospasm and Lasix - De-escalating patient's regimen - Still requiring oxygen with her CPAP, this a.m. is on 2 L nasal cannula with pulse ox of 95 to 96% - Will plan on discharging home with oxygen - Lasix changed to p.o. - Will likely plan for discharge with 5 more days of prednisone # New onset A-fib with RVR -patient put on amnio drip overnight - Patient has since converted - Patient had multiple medications adjusted, will restart home metoprolol, discussed anticoagulation the patient is in agreement, she was started on Eliquis - Recent TSH within normal limits - An echo 06/14/2024 with EF of 60% and normal LV size - May benefit from having a repeat sleep study on outpatient basis to verify anyadjustments need down to her settings on her CPAP #JAYA -Continue home CPAP with O2 bleed #Type 2 diabetes mellitus -Glucose checks and sliding scale insulin - Continue long-acting insulin #Hypothyroidism -Continue Synthroid #GERD -Continue PPI #DVT ppx: Started on Eliquis Savanna Suero MD Charges/Coding Visit Charges Inpatient E&M: 77581 Subs Hosp L2 06/18/24 1736 <Electronically signed by Savanna Suero MD> Cosigner Signature (if applicable): CC: ~ Signed ADDENDUM by Dr. Savanna Suero MD on 06/18/24 at 1737 Addendum # CKD stage III b -Appears to be at baseline -Avoid nephrotoxic agents -Daily BMPs 06/18/241736<Electronically signed by Savanna Suero MD> Cosigner Signature (if applicable): cc: ~* Signed [facility] Work Phone: 1(347) 425-701504-07-2025 Progress note [facility] Medical Records Department [address] [place] [address] Progress Note - Hospitalist 06/18/24 172 MR#: [id number] Acct: [id number] Name: TOD HUNT Rep #:[id number] : 1945 78 From: Savanna Suero MD PCP: Dr. Socrates Spangler MD Status:ADM I N Location: [place] [address] Reason for Visit Reason for Visit: Diagnoses Acute respiratory failure with hypoxia (06/13/24) Contusion of right great toe without damage to nail, initial encounter (06/13/24) Subjective Subjective Overnight patient went into A-fib and now is back in sinus rhythm, reports that this makes her anxious and that she in general is just feeling very anxious and occasionally will feel confused, discussed that patient is on steroids and can cause some of the symptoms she is describing and she agrees.Breathing overall improved, still on some oxygen. She expressed concern about going home before [facility] bed arrives given she is bedbound and her current bed is brokenand she does not feel it is safe for her to be at home, was informed that her bed will be delivered tomorrow morning so current plan is for discharge home tomorrow Objective Data Objective Data Vital Signs: Vital Signs Temp Pulse Resp BP Pulse Ox O2 Del Method O2 Flow Rate 97.9 F 71 21 H 102/87 H 95 Nasal Cannula 2 06/18/24 09:36 06/18/24 09:36 06/18/24 09:36 06/18/24 09:36 06/18/24 09:36 06/18/24 13:44 06/18/24 13:44 FiO2 30 06/14/24 03:15 Oxygen Flow Rate (L/min) 2 Oxygen Delivery Method Nasal Cannula Weight: 178.9 kg Body Mass Index (BMI) 63.6 Intake & Output: Intake and Output for Last 24 Hours 06/16/24 06/17/24 06/18/24 23:59 23:59 23:59 Intake Total 955 / 1075 720 / 840 1135.21 / 1135.21 Output Total 1575 / 1925 1750 / 2000 1100 / 1100 Balance -620 / -850 -1030 / -1160 35.21 / 35.21 Lab / Micro Data 06/18/24 05:20 06/18/24 05:20 Labs: Laboratory Results - last 24 hr 06/17/24 17:21: POC Glucose 127 H 06/17/24 21:29: POC Glucose 206 H 06/18/24 05:20: WBC 8.4, RBC 5.35, Hgb 14.8, Hct 48.2 H, MCV 90.1, MCH 27.7, MCHC 30.7 L, RDW Std Deviation 47.8 H, RDW Coeff of Ryan 14.5, Plt Count 158, MPV 9.7, Immature Gran % (Auto) 0.400, Neut %(Auto) 79.4 H, Lymph % (Auto) 16.2 L, Morehouse % (Auto) 3.9, Eos % (Auto) 0.0, Baso % (Auto) 0.1, Absolute Neuts (auto) 6.7, Absolute Lymphs (auto) 1.36, Nucleated RBC % 0, Sodium 141, Potassium 3.4, Chloride 100, Carbon Dioxide 31.0, Anion Gap 10, BUN 48 H, Creatinine 1.47 H, Estim Creat Clear Calc 51.63, Est GFR (MDRD) Non-Af 36 L, BUN/Creatinine Ratio 32.9 H, Glucose 193 H, Calcium 8.6 06/18/24 06:32: POC Glucose 179 H 06/18/24 11:27: POC Glucose 205 H 06/18/24 16:24: POC Glucose 215 H Micro: Microbiology 06/14/24 22:29 Sputum, Expectorated/Coughed Gram Stain - Final 06/14/24 22:29 Sputum, Expectorated/Coughed Respiratory Culture - Final Mixed normal respiratory hannah. No Streptococcus pneumoniae, beta-hemolytic Streptococcus or Staphylococcus aureus isolated. 06/13/24 19:40 Blood Culture (Wb) - Right Wrist Blood Culture - Preliminary No growth in 48 hours. 06/13/24 19:40 Blood Culture (Wb) - Chest Blood Culture - Preliminary No growth in 48 hours. 06/14/24 02:45 Urine Catheter - Hill Legionella Antigen - Final 06/14/24 02:45 Urine Catheter - Hill Streptococcus pneumoniae Antigen (M - Final 06/13/24 22:55 Mucosa - Nasopharyngeal Respiratory Panel (PCR) - Final 06/13/24 19:55 Mucosa - Nose SARS-CoV-2, Influenza & RSV (PCR) - Final Physical Exam Narrative General: Alert, answers questions appropriately, no apparent distress HEENT: Atraumatic, normocephalic Eyes: Anicteric, normal conjunctiva, extraocular movements grossly intact Neck: Supple Respiratory: Diminished at the bases but suspect a large portion of this is due to body habitus, normal respiratory effort Cardiovascular: Regular rate and rhythm GI: Soft, nontender, nondistended Extremities: Slight peripheral edema Musculoskeletal: Moving all extremities Neuro: No overt focal neurological deficits Skin: No rashes appreciated Psych: Cooperative Assessment & Plan Assessment/Plan (1) Acute hypoxic respiratory failure: PLAN: Plan # Acute hypoxic respiratory failure secondary to community-acquired pneumonia and fluid overload - Initial chest x-ray was congestion/edema versus infection and repeat 2 days later did appear to have fluid overload - Patient was placed on antibiotics in addition to steroids for concern for component of bronchospasm and Lasix - De-escalating patient's regimen - Still requiring oxygen with her CPAP, this a.m. is on 2 L nasal cannula with pulse ox of 95 to 96% - Will plan on discharging home with oxygen - Lasix changed to p.o. - Will likely plan for discharge with 5 more days of prednisone # New onset A-fib with RVR -patient put on amnio drip overnight - Patient has since converted - Patient had multiple medications adjusted, will restart home metoprolol, discussed anticoagulation the patient is in agreement, she was started on Eliquis - Recent TSH within normal limits - An echo 06/14/2024 with EF of 60% and normal LV size - May benefit from having a repeat sleep study on outpatient basis to verify anyadjustments need down to her settings on her CPAP #JAYA -Continue home CPAP with O2 bleed #Type 2 diabetes mellitus -Glucose checks and sliding scale insulin - Continue long-acting insulin #Hypothyroidism -Continue Synthroid #GERD -Continue PPI #DVT ppx: Started on Eliquis Savanna Suero MD Charges/Coding Visit Charges Inpatient E&M: 98444 Subs Hosp L2 06/18/24 173 Cosigner Signature (if applicable): CC: ~ Signed ADDENDUM by Dr. Savanna Suero MD on 06/18/24 at 1737 Addendum # CKD stage III b -Appears to be at baseline -Avoid nephrotoxic agents -Daily BMPs 06/18/241736 Cosigner Signature (if applicable): cc: ~* Signed [facility]04-07-2025 Progress note Author Estela Staton [facility] Note Date/Time June 18, 2024 12:2 2am [facility] Medical Records Department [address] [place] [address] Progress Note - Hospitalist 06/17/242329 MR#: [id number] Acct: [id number] Name: TOD HUNT Rep #:[id number] : 1945 78 From: Estela Staton MD PCP: Dr. Socrates Spangler MD Status:ADM I N Location: [place] [address] Hospitalist Note Patient with onset of asymptomatic tachycardia, EKG with some concern for new onset atrial fibrillation. Recent evaluation ongoing including mag 1.7 on 06/15/24, TSH 1.690 06/14/2024. 06/14/24 echocardiogram with normal LV size, LV systolic function normal, LVEF 60%. Requesting Cardizem 10 mg IV x 1 to slow down and potentially repeat EKG to ensure in A-fib. 06/17/242330 <Electronically signed by Estela Staton MD> Cosigner Signature (if applicable): CC: ~ Signed ADDENDUM by Dr. Estela Staton MD on 06/18/24 at 0022 Addendum Rate only decreased to 120-130s, vacillating, BP however did decrease to systolic in the 90s, will attempt amiodarone bolus with drip until assure improving. Telemetry does appear consistent with A-fib at this point. Will request repeat EKG once rate slows to confirm. Will DC Lovenox and transition to Eliquis with first dose in AM. 06/18/2421<Electronically signed by Estela Staton MD> Cosigner Signature (if applicable): cc: ~* Signed [facility] Work Phone: 1(661) 881-382804-07-2025 Progress note [facility] Medical Records Department [address] [place] [address] Progress Note - Hospitalist 06/17/242329 MR#: [id number] Acct: [id number] Name: TOD HUNT Rep #:[id number] : 1945 78 From: Estela Staton MD PCP: Dr. Socrates Spangler MD Status:ADM I N Location: [place] [address] Hospitalist Note Patient with onset of asymptomatic tachycardia, EKG with some concern for new onset atrial fibrillation. Recent evaluation ongoing including mag 1.7 on 06/15/24, TSH 1.690 06/14/2024. 06/14/24 echocardiogram with normal LV size, LV systolic function normal, LVEF 60%. Requesting Cardizem 10 mg IV x 1 to slow down and potentially repeat EKG to ensure in A-fib. 06/17/242330 Cosigner Signature (if applicable): CC: ~ Signed ADDENDUM by Dr. Estela Staton MD on 06/18/24 at 0022 Addendum Rate only decreased to 120-130s, vacillating, BP however did decrease to systolic in the 90s, will attempt amiodarone bolus with drip until assure improving. Telemetry does appear consistent with A-fib at this point. Will request repeat EKG once rate slows to confirm. Will DC Lovenox and transitionto Eliquis with first dose in AM. 06/18/24 002 Cosigner Signature (if applicable): cc: ~* Signed [facility]04-06-2025 Progress note Author Azam Montgomery [facility] Note Date/Time June 17, 2024 1:01 pm [facility] Medical Records Department [address] [place] [address] Progress Note - Hospitalist 06/17/24 1254 MR#: [id number] Acct: [id number] Name: TOD HUNT Rep #:[id number] : 1945 78 From: Azam Alarcon PCP: Dr. Socrates Spangler MD Status:ADM I N Location: [place] [address] Reason for Visit Reason for Visit: Diagnoses Acute respiratory failure with hypoxia (06/13/24) Contusion of right great toe without damage to nail, initial encounter (06/13/24) Objective Data Objective Data Vital Signs: Vital Signs Temp Pulse Resp BP Pulse Ox O2 Del Method O2 Flow Rate 97.7 F L 69 16 161/78 H 96 Nasal Cannula 2 06/17/24 08:55 06/17/24 08:55 06/17/24 08:55 06/17/24 08:55 06/17/24 08:55 06/17/24 09:30 06/17/24 09:30 FiO2 30 06/14/24 03:15 Oxygen Flow Rate (L/min) 2 Oxygen Delivery Method Nasal Cannula Weight: 389 lb 12.436 oz Body Mass Index (BMI) 62.8 Intake & Output: Intake and Output for Last 24 Hours 06/15/24 06/16/24 06/17/24 23:59 23:59 23:59 Intake Total 1025 / 1025 955 / 1075 270 / 270 Output Total 1725 / 1725 1575 / 1925 1100 / 1100 Balance -700 / -700 -620 / -850 -830 / -830 Lab / Micro Data 06/17/24 04:03 06/17/24 04:03 Labs: Laboratory Results - last 24 hr 06/16/24 17:10: POC Glucose 202 H 06/16/24 21:05: POC Glucose 203 H 06/17/24 04:03: WBC 7.2, RBC 5.28, Hgb 14.6, Hct 47.9 H, MCV 90.7, MCH 27.7, MCHC 30.5 L, RDW Std Deviation 49.1 H, RDW Coeff of Ryan 14.5, Plt Count 157, MPV 9.5, Immature Gran % (Auto) 0.300, Neut % (Auto) 79.1 H, Lymph % (Auto) 17.5 L, Morehouse % (Auto) 3.1, Eos % (Auto) 0.0, Baso % (Auto) 0.0, Absolute Neuts (auto) 5.7, Absolute Lymphs (auto) 1.25, Nucleated RBC % 0, Sodium 140, Potassium 3.4, Chloride 100, Carbon Dioxide 31.0, Anion Gap 9, BUN 46 H, Creatinine 1.46 H, Estim Creat Clear Calc 51.57, Est GFR (MDRD) Non-Af 36 L, BUN/Creatinine Ratio 31.8 H, Glucose 173 H, Calcium 8.7 06/17/24 06:27: POC Glucose 162 H 06/17/24 11:32: POC Glucose 207 H Micro: Microbiology 06/14/24 22:29 Sputum, Expectorated/Coughed Gram Stain - Final 06/14/24 22:29 Sputum, Expectorated/Coughed Respiratory Culture - Final Mixed normal respiratory hannah. No Streptococcus pneumoniae, beta-hemolytic Streptococcus or Staphylococcus aureus isolated. 06/13/24 19:40 Blood Culture (Wb) - Right Wrist Blood Culture - Preliminary No growth in 48 hours. 06/13/24 19:40 Blood Culture (Wb) - Chest Blood Culture - Preliminary No growth in 48 hours. 06/14/24 02:45 Urine Catheter - Hill Legionella Antigen - Final 06/14/24 02:45 Urine Catheter - Hill Streptococcus pneumoniae Antigen (M - Final 06/13/24 22:55 Mucosa - Nasopharyngeal Respiratory Panel (PCR) - Final 06/13/24 19:55 Mucosa - Nose SARS-CoV-2, Influenza & RSV (PCR) - Final Physical Exam Narrative Seen and examined No acute issues. Patient has some home-going need including DME therefore couldnot be discharged today. Constipation did not move bowels since admission even on laxatives Shortness of breath is better. No chest pain. On BiPAP at night and naps. Patient was admitted with shortness of breath. Earlier her BiPAP was not working for last 3 to 4 weeks. No fever. Physical exam General: Alert, Oriented x3, Cooperative, super morbid obesity: BMI 63.3 kg/m?, limited exam HEENT: Short and wide neck atraumatic, PERRLA, EOMI, Normocephalic Oral: Deep oropharyngeal strength not visualized Neck: Supple, No JVD, Negative Carotid Bruits Chest wall/Lungs: Air entry diminished in bilateral lung bases. Cannot sit up because of morbid body habitus. No crepitations on anterior lung auscultation. Cardiovascular: Low intensity heart sounds Rally from morbid obesity. No M/G/R Abdomen: Bowel Sounds Present, Soft, Non Tender, Non-Distended : No dysuria. No renal angle tenderness. No suprapubic tenderness. Extremities: Bilateral pedal edema 2+ edema, Capillary Refill Less than 3 Seconds Skin: right toe bruise, bluish discoloration since admission, getting better. Musculoskeletal: No Tenderness to Palpation of Joints or Extremities ROM decreased. Neurological: Cranial nerves II-XII grossly intact, DTR 2+/4. No acute focal neurological deficit. Psych/Mental Status: Flat affect Assessment & Plan Assessment/Plan (1) Acute hypoxic respiratory failure: PLAN: Plan The patient is an 78 y/o F was brought to ED by EMS for shortness of breath and hypoxia, pulse ox 70% on room air for 1 day. Not on oxygen at baseline. Patient had slight nonproductive cough, mild congestion and rhinorrhea. No fever #1. Acute Hypoxic Respiratory Failure secondary to Possible RLL Infilrtrate/Community Acquired PNA with Acute Bronchospasms in addition to Possible Acute Decompensated HF unclear type and classification: Patient denies chest pain. Triple PCR for SARS-CoV-2, flu and RSV are negative. Respiratory panel and urinary antigens are negative. Leukocytosis resolved. Chest x-ray reviewed and shows unturned ventilation, cardiomegaly suggestive of pulmonary congestion/edema. ABG 7.30/60/70s on BiPAP 20/10, RR 12 at 30% FiO2. Bicarb reported in BMP sincelong as it suddenly dropped from 26.5-19.3 but in ABGs about 31-32. Therefore mainly seems chronic respiratory acidosis Patient started on IV ceftriaxone and azithromycin. Empirically on IV Solu- Medrol. Patient is being managed on scheduled bronchodilator, IV Solu-Medrol, Mucinex, incentive spirometry and Pep. /4: Repeat chest x-ray portable done with suboptimal images. Shows improvementin lung congestion but underventilated. Continue antibiotics and above treatment. 4/5: Shortness of breath is better #2. QUYNH on chronic Kidney Disease Stage IIIA: Admission BUN/Cr 28/1.14, GFR 49,baseline renal function unfortunately remote with last noted 11/22/2016 creatinine 0.98, 06/14: BUN/creatinine 32/1.41. HCTZ discontinued. Losartan dose decreased to 50 mg daily. Monitor kidney function. 06/15: Creatinine jumped up from 1.14-1.54 in 48 hours therefore meets criteria for QUYNH. Hold furosemide and losartan and follow-up kidney function. 06/17: Creatinine decreasing 1.46. Furosemide dose decreased to 40 mg IV daily. Medically patient is stable for discharge but has multiple home-going needs due to morbid obesity including Beth lift for transfer, DME needs. Patient has BiPAP. Oxygen paper signed. May be discharged tomorrow on Tuesday Bluish discoloration, bruise right toes present since admission: X-ray of the right foot was done reported as Lysis of the middle and distal phalanx of the 3rd digit soft tissue swelling about 2nd, 3rd, 4th consistent lysis of the distal phalanx of the 5th digit. Findings are worrisome for osteomyelitis of second to the fifth toe oyster culler consulted for that. The oyster culler also reviewed the x-ray and thinks the x-ray reporting is not correct/wrong. Clinically, I do not suspect 06/17: [employer] consulted and discussed with Dr. Dubois. He also does not think clinically osteomyelitis. Patient has osteoporosis and diffuse demineralization of the toe bones and digital contractures therefore it appears bone lysis. #3. Hypertension: Continue home regimen including metoprolol, amlodipine, losartan, hydrochlorothiazide, pulse dose with IV lasix as noted above, PRN hydralazine. 4/:HCTZ discontinued. Losartan dose decreased to 50 mg daily. 4/5: Patient blood pressure is better. Constipation: Dulcolax suppository ordered and as per nursing staff, patient hadBM. #4. Hyperlipidemia: continue patient statin therapy. FLP LDL 56, HDL 35. #5. Hypothyroidism: continue patient home levothyroxine regimen. TSH/FT4 1.690and 1.30 respectively; normal. #6. Diabetes mellitus type II: Hold oral home regimen, continue home insulin regimen, ADA diet, accu checks w/ ISS. #7. Morbid Obesity/significantly chronically limited mobility normally using predominantly wheelchair: Weight loss and lifestyle changes encouraged, nutrition consulted. #8. Allergic rhinitis: continue patient home fexofenadine regimen. #9. GERD: continue patient on PPI. #10. JAYA, hypoventilation syndrome: Complicates presentation, normally using CPAP nightly, given current presentation will continue with BiPAP. Transition once appropriate. #11. DVT prophylaxis: Chemoprophylactic dosing of Lovenox pending duplex ultrasound. Given inability to fit in the scanner at this point pending bilateral lower extremity duplex ultrasounds and if there is no obvious clot in her legs then lower suspicion for anything in her lungs but if any concerning findings in the legs then certainly would transition to heparin drip at that point. #12. CODE status: Patient NICOLE is her daughter and living will is currently inplace. Discussed CODE status at length including difference between FULL code, DNR-CCA and DNR-CC status. Following discussions about the differences in these status, requested Full Code status. Charges/Coding Visit Charges Inpatient E&M: 26005 Subs Hosp L2 06/17/24 1301 <Electronically signed by Azam Montgomery MD> Cosigner Signature (if applicable): CC: ~ Signed [facility] Work Phone: 1(265) 742-335504-06-2025 Progress note [facility] Medical Records Department [address] [place] [address] Progress Note - Hospitalist 06/17/24 1254 MR#: [id number] Acct: [id number] Name: TOD HUNT Rep #:[id number] : 1945 78 From: Azam Alarcon PCP: Dr. Socrates Spangler MD Status:ADM I N Location: [place] [address] Reason for Visit Reason for Visit: Diagnoses Acute respiratory failure with hypoxia (06/13/24) Contusion of right great toe without damage to nail, initial encounter (06/13/24) Objective Data Objective Data Vital Signs: Vital Signs Temp Pulse Resp BP Pulse Ox O2 Del Method O2 Flow Rate 97.7 F L 69 16 161/78 H 96 Nasal Cannula 2 06/17/24 08:55 06/17/24 08:55 06/17/24 08:55 06/17/24 08:55 06/17/24 08:55 06/17/24 09:30 06/17/24 09:30 FiO2 30 06/14/24 03:15 Oxygen Flow Rate (L/min) 2 Oxygen Delivery Method Nasal Cannula Weight: 389 lb 12.436 oz Body Mass Index (BMI) 62.8 Intake & Output: Intake and Output for Last 24 Hours 06/15/24 06/16/24 06/17/24 23:59 23:59 23:59 Intake Total 1025 / 1025 955 / 1075 270 / 270 Output Total 1725 / 1725 1575 / 1925 1100 / 1100 Balance -700 / -700 -620 / -850 -830 / -830 Lab / Micro Data 06/17/24 04:03 06/17/24 04:03 Labs: Laboratory Results - last 24 hr 06/16/24 17:10: POC Glucose 202 H 06/16/24 21:05: POC Glucose 203 H 06/17/24 04:03: WBC 7.2, RBC 5.28, Hgb 14.6, Hct 47.9 H, MCV 90.7, MCH 27.7, MCHC 30.5 L, RDW Std Deviation 49.1 H, RDW Coeff of Ryan 14.5, Plt Count 157, MPV 9.5, Immature Gran % (Auto) 0.300, Neut %(Auto) 79.1 H, Lymph % (Auto) 17.5 L, Morehouse % (Auto) 3.1, Eos % (Auto) 0.0, Baso % (Auto) 0.0, Absolute Neuts (auto) 5.7, Absolute Lymphs (auto) 1.25, Nucleated RBC % 0, Sodium 140, Potassium 3.4, Chloride 100, Carbon Dioxide 31.0, Anion Gap 9, BUN 46 H, Creatinine 1.46 H, Estim Creat Clear Calc 51.57, Est GFR (MDRD) Non-Af 36 L, BUN/Creatinine Ratio 31.8 H, Glucose 173 H, Calcium 8.7 06/17/24 06:27: POC Glucose 162 H 06/17/24 11:32: POC Glucose 207 H Micro: Microbiology 06/14/24 22:29 Sputum, Expectorated/Coughed Gram Stain - Final 06/14/24 22:29 Sputum, Expectorated/Coughed Respiratory Culture - Final Mixed normal respiratory hannah. No Streptococcus pneumoniae, beta-hemolytic Streptococcus or Staphylococcus aureus isolated. 06/13/24 19:40 Blood Culture (Wb) - Right Wrist Blood Culture - Preliminary No growth in 48 hours. 06/13/24 19:40 Blood Culture (Wb) - Chest Blood Culture - Preliminary No growth in 48 hours. 06/14/24 02:45 Urine Catheter - Hill Legionella Antigen - Final 06/14/24 02:45 Urine Catheter - Hill Streptococcus pneumoniae Antigen (M - Final 06/13/24 22:55 Mucosa - Nasopharyngeal Respiratory Panel (PCR) - Final 06/13/24 19:55 Mucosa - Nose SARS-CoV-2, Influenza & RSV (PCR) - Final Physical Exam Narrative Seen and examined No acute issues. Patient has some home-going need including DME therefore couldnot be discharged today. Constipation did not move bowels since admission even on laxatives Shortness of breath is better. No chest pain. On BiPAP at night and naps. Patient was admitted with shortness of breath. Earlier her BiPAP was not working for last 3 to 4 weeks. No fever. Physical exam General: Alert, Oriented x3, Cooperative, super morbid obesity: BMI 63.3 kg/m?, limited exam HEENT: Short and wide neck atraumatic, PERRLA, EOMI, Normocephalic Oral: Deep oropharyngeal strength not visualized Neck: Supple, No JVD, Negative Carotid Bruits Chest wall/Lungs: Air entry diminished in bilateral lung bases. Cannot sit up because of morbid body habitus. No crepitations on anterior lung auscultation. Cardiovascular: Low intensity heart sounds Rally from morbid obesity. No M/G/R Abdomen: Bowel Sounds Present, Soft, Non Tender, Non-Distended : No dysuria. No renal angle tenderness. No suprapubic tenderness. Extremities: Bilateral pedal edema 2+ edema, Capillary Refill Less than 3 Seconds Skin: right toe bruise, bluish discoloration since admission, getting better. Musculoskeletal: No Tenderness to Palpation of Joints or Extremities ROM decreased. Neurological: Cranial nerves II-XII grossly intact, DTR 2+/4. No acute focal neurological deficit. Psych/Mental Status: Flat affect Assessment & Plan Assessment/Plan (1) Acute hypoxic respiratory failure: PLAN: Plan The patient is an 78 y/o F was brought to ED by EMS for shortness of breath and hypoxia, pulse ox 70% on room air for 1 day. Not on oxygen at baseline. Patient had slight nonproductive cough, mild congestion and rhinorrhea. No fever #1. Acute Hypoxic Respiratory Failure secondary to Possible RLL Infilrtrate/Community Acquired PNA with Acute Bronchospasms in addition to Possible Acute Decompensated HF unclear type and classification: Patient denies chest pain. Triple PCR for SARS-CoV-2, flu and RSV are negative. Respiratory panel and urinary antigens are negative. Leukocytosis resolved. Chest x-ray reviewed and shows unturnedventilation, cardiomegaly suggestive of pulmonary congestion/edema. ABG 7.30/60/70s on BiPAP 20/10, RR 12 at 30% FiO2. Bicarb reported in BMP sincelong as it suddenly dropped from 26.5-19.3 but in ABGs about 31-32. Therefore mainly seems chronic respiratory acidosis Patient started on IV ceftriaxone and azithromycin. Empirically on IV Solu- Medrol. Patient is beingmanaged on scheduled bronchodilator, IV Solu-Medrol, Mucinex, incentive spirometry and Pep. 06/15: Repeat chest x-ray portable done with suboptimal images. Shows improvementin lung congestion but underventilated. Continue antibiotics and above treatment. 5: Shortness of breath is better #2. QUYNH on chronic Kidney Disease Stage IIIA: Admission BUN/Cr 28/1.14, GFR 49,baseline renal function unfortunately remote with last noted 11/22/2016 creatinine 0.98, 06/14: BUN/creatinine 32/1.41. HCTZ discontinued. Losartan dose decreased to 50 mg daily. Monitor kidney function. 06/15: Creatinine jumped up from 1.14-1.54 in 48 hours therefore meets criteria for QUYNH. Hold furosemide and losartan and follow-up kidney function. 06/17: Creatinine decreasing 1.46. Furosemide dose decreased to 40 mg IV daily. Medically patient is stable for discharge but has multiple home-going needs due to morbid obesity including Beth lift for transfer, DME needs. Patient has BiPAP. Oxygen paper signed. May be discharged tomorrow on Tuesday Bluish discoloration, bruise right toes present since admission: X-ray of the right foot was done reported as Lysis of the middle and distal phalanx of the 3rd digit soft tissue swelling about 2nd, 3rd, 4th consistent lysis of the distal phalanx of the 5th digit. Findings are worrisome for osteomyelitis of second to the fifth toe oyster culler consulted for that. The oyster culler also reviewed the x-ray and thinks the x-ray reporting is not correct/wrong. Clinically, I do not suspect 4/: [employer] consulted and discussed with Dr. Dubois. He also does not think clinically osteomyelitis. Patient has osteoporosis and diffuse demineralization of the toe bones and digital contractures therefore it appears bone lysis. #3. Hypertension: Continue home regimen including metoprolol, amlodipine, losartan, hydrochlorothiazide, pulse dose with IV lasix as noted above, PRN hydralazine. /:HCTZ discontinued. Losartan dose decreased to 50 mg daily. 4/: Patient blood pressure is better. Constipation: Dulcolax suppository ordered and as per nursing staff, patient hadBM. #4. Hyperlipidemia: continue patient statin therapy. FLP LDL 56, HDL 35. #5. Hypothyroidism: continue patient home levothyroxine regimen. TSH/FT4 1.690and 1.30 respectively; normal. #6. Diabetes mellitus type II: Hold oral home regimen, continue home insulin regimen, ADA diet, accu checks w/ ISS. #7. Morbid Obesity/significantly chronically limited mobility normally using predominantly wheelchair: Weight loss and lifestyle changes encouraged, nutrition consulted. #8. Allergic rhinitis: continue patient home fexofenadine regimen. #9. GERD: continue patient on PPI. #10. JAYA, hypoventilation syndrome: Complicates presentation, normally using CPAP nightly, given current presentation will continue with BiPAP. Transition once appropriate. #11. DVT prophylaxis: Chemoprophylactic dosing of Lovenox pending duplex ultrasound. Given inability to fit in the scanner at this point pending bilateral lower extremity duplex ultrasounds and if there is no obvious clot in her legs then lower suspicion for anything in her lungs but if any concerning findings in the legs then certainly would transition to heparin drip at that point. #12. CODE status: Patient NICOLE is her daughter and living will is currently inplace. Discussed CODE status at length including difference between FULL code, DNR-CCA and DNR-CC status. Following discussions about the differences in these status, requested Full Code status. Charges/Coding Visit Charges Inpatient E&M: 02945 Subs Hosp L2 06/17/24 1301 Cosigner Signature (if applicable): CC: ~ Signed [facility]04-06-2025 Consult note Author Sarabjit Dubois [facility] Note Date/Time June 17, 2024 9:23 am [facility] Medical Records Department [address] [place] [address] Consultation 06/17/24 0919 MR#: [id number] Acct: [id number] Name: TOD HUNT Rep #:[id number] : 1945 78 From: Sarabjit Dubois DPM PCP: Dr. Socrates Spangler MD Status:ADM I N Location: [place] [address] Assessment & Plan Assessment/Plan (1) Contusion of right great toe without damage to nail, initial encounter: PLAN: Exam performed. Radiographs were ordered and taken for the right foot, radiologist read osteomyelitis due to inability to visualize second and third toe. At this time I ordered toe x-rays to reevaluate; however, I disagree with radiologist read aspatient has significant disuse osteoporosis related to nonweightbearing with digital contractures obscuring view of the lesser digits make him appear ghostedwhich is why I believe the radiologist read the x-ray as the way they did. Patient has no breaks or openings in the skin or any signs of acute or chronic infection to the right second and third toes. At this time I have very little to no concern for osteomyelitis of the right foot, believe this is a simple contusion right foot. Patient is nonambulatory and is having minimal pain. The site should heal on its own; therefore, I recommend observation and conservative treatment HPI Consult Data Date of Consult: 06/17/24 HPI Narrative HPI Narrative: TOD HUNT, is a 78 F who presents Contusion second third toes right foot. Patient is morbidly obese advancing age and nonambulatory. Patient reports thatwhen she was being transported to the hospital via EMS bumped her right foot toes and that she bruises easily and suffered contusion of the right foot. No other complaints. Patient has no pain to that site or gross deformation. [facility] Medical History (Updated 06/17/24 @ 09:[address] Sarabjit Dubois DPM) CKD (chronic kidney disease), stage III Hypothyroidism Allergic rhinitis GERD (gastroesophageal reflux disease) Obstructive sleep apnea Hyperlipidemia Hypertension Type 2 diabetes mellitus Morbid obesity Home Medications ?Medication ?Instructions ?Recorded ?Last Taken ?Type amlodipine 5 mg tablet 5 mg PO DAILY blood pressure 05/12/16 05/12/16 08:00 History atorvastatin 20 mg tablet 20 mg PO QHS cholesterol 03/3005/11/16 22:00 History fexofenadine 180 mg tablet 180 mg PO DAILY allergies 0 05/12/16 05/12/16 08:00 History hydrocortisone 2.5 % topical cream 1 applicatio topica l BID rash 05/12/16 Unknown History insulin glargine 100 unit/mL (3 50 units subcut QHS di abetes 05/12/16 05/11/16 22:00 History mL) subcutaneous pen (Lantus Solostar U-100 Insulin) levothyroxine 100 mcg tablet 100 mcg PO DAILY thyroid 05/12/16 05/12/16 06:00 History losartan 100 1 tab PO DAILY blood pressur e 05/12/16 05/12/16 08:00 History mg-hydrochlorothiazide 25 mg tablet (Hyzaar) metformin 500 mg 24 hr 1,000 mg PO BIDAC diabetes 0 05/12/16 05/12/16 08:00 History tablet,extended release (gastric retention) metoprolol tartrate 50 mg tablet 50 mg PO BID blood pr essure 05/12/16 05/12/16 08:00 History potassium chloride 10 mEq 10 meq PO BID supplement 03/3005/12/16 08:00 History tablet,extended release(part/cryst) insulin aspart U-100 100 unit/mL 0 units subcut ACHS 0 05/14/16 Unknown Rx (3 mL) subcutaneous pen (Novolog FlexPen U-100 Insulin aspart) magnesium oxide 400 mg (241.3 mg 400 mg PO BID supplem ent #60 05/14/16 Unknown Rx magnesium) tablet TABLETS nystatin 100,000 unit/gram topical 1 applic topical BI D yeast 05/14/16 Unknown Rx powder (Nyamyc) oxycodone 5 mg tablet 5 mg PO Q4H PRN PRN Moderate Pain 05/14/16 Unknown Rx (pain scale 4-5) ##20 docusate sodium 100 mg capsule 200 mg PO BID stool sof tner 06/16/24 Unknown History pantoprazole 40 mg tablet,delayed 40 mg PO DAILY reflu x 06/16/24 Unknown History release Allergy/AdvReac Type Severity Reaction Status Date / Time lisinopril Allergy Unknown Verified 05/12/16 17:40 pollen extracts Allergy Itching Verified 05/12/16 17:40 Family History (Updated 06/13/24 @ 22:[address] Estela Staton MD) Mother Diabetes Heart disease Hypertension Father Diabetes Cancer Heart disease Alzheimer dementia Surgical History (Updated 06/13/24 @ 22:[address] Estela Staton MD) History of ankle surgery S/P cholecystectomy Social History household members: spouse Smoking Status: Never smoker alcohol intake: never substance use type: does not use Physical Exam Narrative Vascular: Dorsalis pedis posterior tibial pulses palpable 2 out of 4 bilateral lower extremity compartments. +2 pitting edema noted to bilateral legs and ankles. Neurologic: Light touch protective sensation intact to bilateral feet. Dermatologic: Ecchymosis noted to the second and third toe, markedly increased of third toe right foot. No openings to the skin or epidermis noted. Musculoskeletal: No obvious deformation and right second third toe, mild tenderness palpation of the toes and interphalangeal joints. No sign DVT bilaterally. Lab / Micro Data 06/17/24 04:03 06/17/24 04:03 Labs: Laboratory Results - last 24 hr 06/16/24 12:20: POC Glucose 223 H 06/16/24 17:10: POC Glucose 202 H 06/16/24 21:05: POC Glucose 203 H 06/17/24 04:03: WBC 7.2, RBC 5.28, Hgb 14.6, Hct 47.9 H, MCV 90.7, MCH 27.7, MCHC 30.5 L, RDW Std Deviation 49.1 H, RDW Coeff of Ryan 14.5, Plt Count 157, MPV 9.5, Immature Gran % (Auto) 0.300, Neut % (Auto) 79.1 H, Lymph % (Auto) 17.5 L, Morehouse % (Auto) 3.1, Eos % (Auto) 0.0, Baso % (Auto) 0.0, Absolute Neuts (auto) 5.7, Absolute Lymphs (auto) 1.25, Nucleated RBC % 0, Sodium 140, Potassium 3.4, Chloride 100, Carbon Dioxide 31.0, Anion Gap 9, BUN 46 H, Creatinine 1.46 H, Estim Creat Clear Calc 51.57, Est GFR (MDRD) Non-Af 36 L, BUN/Creatinine Ratio 31.8 H, Glucose 173 H, Calcium 8.7 06/17/24 06:27: POC Glucose 162 H Micro: Microbiology 06/14/24 22:29 Sputum, Expectorated/Coughed Gram Stain - Final 06/14/24 22:29 Sputum, Expectorated/Coughed Respiratory Culture - Preliminary Appears to be normal respiratory hannah. Further studies to follow. 06/13/24 19:40 Blood Culture (Wb) - Right Wrist Blood Culture - Preliminary No growth in 48 hours. 06/13/24 19:40 Blood Culture (Wb) - Chest Blood Culture - Preliminary No growth in 48 hours. Imaging Radiology Impression Foot X-Ray 06/16/24 10:55 IMPRESSION: Findings are worrisome for osteomyelitis of the 2nd to the 5th toe. Reading [facility] 06/17/24922 <Electronically signed by Sarabjit Dubois DPM> Cosigner Signature (if applicable): CC: Dr. Socrates Spangler MD~ Signed [facility] Work Phone: 1(675) 193-916704-06-2025 Consult note [facility] Medical Records Department [address] [place] [address] Consultation 06/17/24918 MR#: [id number] Acct: [id number] Name: TOD HUNT Rep #:[id number] : 1945 78 From: Sarabjit Dubois DPM PCP: Dr. Socrates Spangler MD Status:ADM I N Location: [place] [address] Assessment & Plan Assessment/Plan (1) Contusion of right great toe without damage to nail, initial encounter: PLAN: Exam performed. Radiographs were ordered and taken for the right foot, radiologist read osteomyelitis due to inability to visualize second and third toe. At this time I ordered toe x-rays to reevaluate; however, I disagree with radiologist read aspatient has significant disuse osteoporosis related to nonweightbearing with digital contractures obscuring view of the lesser digits make him appear ghostedwhich is why I believe the radiologist read the x-ray as the way they did. Patient has no breaks or openings inthe skin or any signs of acute or chronic infection to the right second and third toes. At this time I have very little to no concern for osteomyelitis of the right foot, believe this is a simple contusion right foot. Patient is nonambulatory and is having minimal pain. The site should heal on its own; therefore, I recommend observation and conservative treatment HPI Consult Data Date of Consult: 06/17/24 HPI Narrative HPI Narrative: TOD HUNT, is a 78 F who presents Contusion second third toes right foot. Patient is morbidly obese advancing age and nonambulatory. Patient reports thatwhen she was being transported to the hospital via EMS bumped her right foot toes and that she bruises easily and suffered contusion of the right foot. No other complaints. Patient has no pain to that site or gross deformation. [facility] Medical History (Updated 06/17/24 @ 09:[address] Sarabjit Dubois, VINAY) CKD (chronic kidney disease), stage III Hypothyroidism Allergic rhinitis GERD (gastroesophageal reflux disease) Obstructive sleep apnea Hyperlipidemia Hypertension Type 2 diabetes mellitus Morbid obesity Home Medications ?Medication ?Instructions ?Recorded ?Last Taken ?Type amlodipine 5 mg tablet 5 mg PO DAILY blood pressure 05/12/16 05/12/16 08:00 History atorvastatin 20 mg tablet 20 mg PO QHS cholesterol 03/3005/11/16 22:00 History fexofenadine 180 mg tablet 180 mg PO DAILY allergies 0 05/12/16 05/12/16 08:00 History hydrocortisone 2.5 % topical cream 1 applicatio topica l BID rash 05/12/16 Unknown History insulin glargine 100 unit/mL (3 50 units subcut QHS di abetes 05/12/16 05/11/16 22:00 History mL) subcutaneous pen (Lantus Solostar U-100 Insulin) levothyroxine 100 mcg tablet 100 mcg PO DAILY thyroid 05/12/16 05/12/16 06:00 History losartan 100 1 tab PO DAILY blood pressur e 05/12/16 05/12/16 08:00 History mg-hydrochlorothiazide 25 mg tablet (Hyzaar) metformin 500 mg 24 hr 1,000 mg PO BIDAC diabetes 0 05/12/16 05/12/16 08:00 History tablet,extended release (gastric retention) metoprolol tartrate 50 mg tablet 50 mg PO BID blood pr essure 05/12/16 05/12/16 08:00 History potassium chloride 10 mEq 10 meq PO BID supplement 03/3005/12/16 08:00 History tablet,extended release(part/cryst) insulin aspart U-100 100 unit/mL 0 units subcut ACHS 0 05/14/16 Unknown Rx (3 mL) subcutaneous pen (Novolog FlexPen U-100 Insulin aspart) magnesium oxide 400 mg (241.3 mg 400 mg PO BID supplem ent #60 05/14/16 Unknown Rx magnesium) tablet TABLETS nystatin 100,000 unit/gram topical 1 applic topical BI D yeast 05/14/16 Unknown Rx powder (Nyamyc) oxycodone 5 mg tablet 5 mg PO Q4H PRN PRN Moderate Pain 05/14/16 Unknown Rx (pain scale 4-5) ##20 docusate sodium 100 mg capsule 200 mg PO BID stool sof tner 06/16/24 Unknown History pantoprazole 40 mg tablet,delayed 40 mg PO DAILY reflu x 06/16/24 Unknown History release Allergy/AdvReac Type Severity Reaction Status Date / Time lisinopril Allergy Unknown Verified 05/12/16 17:40 pollen extracts Allergy Itching Verified 05/12/16 17:40 Family History (Updated 06/13/24 @ 22:[address] Estela Staton MD) Mother Diabetes Heart disease Hypertension Father Diabetes Cancer Heart disease Alzheimer dementia Surgical History (Updated 06/13/24 @ 22:[address] Estela Staton MD) History of ankle surgery S/P cholecystectomy Social History household members: spouse Smoking Status: Never smoker alcohol intake: never substance use type: does not use Physical Exam Narrative Vascular: Dorsalis pedis posterior tibial pulses palpable 2 out of 4 bilateral lower extremity compartments. +2 pitting edema noted to bilateral legs and ankles. Neurologic: Light touch protective sensation intact to bilateral feet. Dermatologic: Ecchymosis noted to the second and third toe, markedly increased of third toe right foot. No openings to the skin or epidermis noted. Musculoskeletal: No obvious deformation and right second third toe, mild tenderness palpation of the toes and interphalangeal joints. No sign DVT bilaterally. Lab / Micro Data 06/17/24 04:03 06/17/24 04:03 Labs: Laboratory Results - last 24 hr 06/16/24 12:20: POC Glucose 223 H 06/16/24 17:10: POC Glucose 202 H 06/16/24 21:05: POC Glucose 203 H 06/17/24 04:03: WBC 7.2, RBC 5.28, Hgb 14.6, Hct 47.9 H, MCV 90.7, MCH 27.7, MCHC 30.5 L, RDW Std Deviation 49.1 H, RDW Coeff of Ryan 14.5, Plt Count 157, MPV 9.5, Immature Gran % (Auto) 0.300, Neut %(Auto) 79.1 H, Lymph % (Auto) 17.5 L, Morehouse % (Auto) 3.1, Eos % (Auto) 0.0, Baso % (Auto) 0.0, Absolute Neuts (auto) 5.7, Absolute Lymphs (auto) 1.25, Nucleated RBC % 0, Sodium 140, Potassium 3.4, Chloride 100, Carbon Dioxide 31.0, Anion Gap 9, BUN 46 H, Creatinine 1.46 H, Estim Creat Clear Calc 51.57, Est GFR (MDRD) Non-Af 36 L, BUN/Creatinine Ratio 31.8 H, Glucose 173 H, Calcium 8.7 06/17/24 06:27: POC Glucose 162 H Micro: Microbiology 06/14/24 22:29 Sputum, Expectorated/Coughed Gram Stain - Final 06/14/24 22:29 Sputum, Expectorated/Coughed Respiratory Culture - Preliminary Appears to be normal respiratory hannah. Further studies to follow. 06/13/24 19:40 Blood Culture (Wb) - Right Wrist Blood Culture - Preliminary No growth in 48 hours. 06/13/24 19:40 Blood Culture (Wb) - Chest Blood Culture - Preliminary No growth in 48 hours. Imaging Radiology Impression Foot X-Ray 06/16/24 10:55 IMPRESSION: Findings are worrisome for osteomyelitis of the 2nd to the 5th toe. Reading Location[facility] 06/17/24 8881 Cosigner Signature (if applicable): CC: Dr. Socrates Spangler MD~ Signed [facility]04-06-2025 [facility] Medical Records Department [address] [place] [address] Consultation 06/17/24918 MR#: [id number] Acct: [id number] Name: TOD HUNT Rep #: [id number] : 1945 78 From: Sarabjit Dubois DPM PCP: Dr. Socrates Spangler MD Status:ADM IN Location: [place] [address] Assessment Plan Assessment/Plan (1) Contusion of right great toe without damage to nail, initial encounter: PLAN: Exam performed. Radiographs were ordered and taken for the right foot, radiologist read osteomyelitis due to inability to visualize second and third toe. 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 Patient has no breaks or openings in the skin or any signs of acute or chronic infection to the right second and third toes. At this time I have very little to no concern for osteomyelitis of the right foot, believe this is a simple contusion right foot. Patient is nonambulatory and is having minimal pain. The site should heal on its own; therefore, I recommend observation and conservative treatment HPI Consult Data Date of Consult: 06/17/24 HPI Narrative HPI Narrative: TOD HUNT, is a 78 F who presents Contusion second third toes right foot. Patient is morbidly obese advancing age and nonambulatory. Patient reports that when she was being transported to the hospital via EMS bumped her right foot toes and that she bruises easily and suffered contusion of the right foot. No other complaints. Patient has no pain to that site or gross deformation. [facility] Medical History (Updated 06/17/24 @ 09:[address] Sarabjit Dubois DPM) CKD (chronic kidney disease), stage III Hypothyroidism Allergic rhinitis GERD (gastroesophageal reflux disease) Obstructive sleep apnea Hyperlipidemia Hypertension Type 2 diabetes mellitus Morbid obesity Home Medications ???Medication ???Instructions ???Recorded ???Last Taken ???Type amlodipine 5 mg tablet 5 mg PO DAILY blood pressure 05/1205/12/16 08:00 History atorvastatin 20 mg tablet 20 mg PO QHS cholesterol 05/12/16 05/11/16 22:00 History fexofenadine 180 mg tablet 180 mg PO DAILY allergies 05/12/16 05/12/16 08:00 History hydrocortisone 2.5 % topical cream 1 applicatio topical BID rash Unknown History insulin glargine 100 unit/mL (3 50 units subcut QHS diabetes 05/1205/11/16 22:00 History mL) subcutaneous pen (Lantus Solostar U-100 Insulin) levothyroxine 100 mcg tablet 100 mcg PO DAILY thyroid 05/12/16 05/12/16 06:00 History losartan 100 1 tab PO DAILY blood pressure 03/3005/12/16 08:00 History mg-hydrochlorothiazide 25 mg tablet (Hyzaar) metformin 500 mg 24 hr 1,000 mg PO BIDAC diabetes 7 05/12/16 08:00 History tablet,extended release (gastric retention) metoprolol tartrate 50 mg tablet 50 mg PO BID blood pressure 05/12/16 08:00 History potassium chloride 10 mEq 10 meq PO BID supplement 05/12/16 05/12/16 08:00 History tablet,extended release(part/cryst) insulin aspart U-100 100 unit/mL 0 units subcut ACHS 05/14/16 Unkno wn Rx (3 mL) subcutaneous pen (Novolog FlexPen U-100 Insulin aspart) magnesium oxide 400 mg (241.3 mg 400 mg PO BID supplement #60 05/14 Unknown Rx magnesium) tablet TABLETS nystatin 100,000 unit/gram topical 1 applic topical BID yeast 05/14 Unknown Rx powder (Nyamyc) oxycodone 5 mg tablet 5 mg PO Q4H PRN PRN Moderate Pain 05/14/16 Unknown Rx (pain scale 4-5) ##20 docusate sodium 100 mg capsule 200 mg PO BID stool softner Unknown History pantoprazole 40 mg tablet,delayed 40 mg PO DAILY reflux 06/16/24 Un known History release Allergy/AdvReac Type Severity Reaction Status Date / Time lisinopril Allergy Unknown Verified 05/12/16 17:40 pollen extracts Allergy Itching Verified 05/12/16 17:40 Family History (Updated 06/13/24 @ 22:[address] Estela Staton MD) Mother Diabetes Heart disease Hypertension Father Diabetes Cancer Heart disease Alzheimer dementia Surgical History (Updated 06/13/24 @ 22:[address] Estela Staton MD) History of ankle surgery S/P cholecystectomy Social History household members: spouse Smoking Status: Never smoker alcohol intake: never substance use type: does not use Physical Exam Narrative Vascular: Dorsalis pedis posterior tibial pulses palpable 2 out of 4 bilateral lower extremity compartments. +2 pitting edema noted to bilateral legs and ankles. Neurologic: Light touch protective sensation intac (more content not included)...[facility]04-05-2025 Progress note Author Azam Montgomery [facility] Note Date/Time June 16, 2024 2:27 pm [facility] Medical Records Department [address] [place] [id number] Progress Note - Hospitalist 06/16/24 1257 MR#: [id number] Acct: [id number] Name: TOD HUNT Rep #:[id number] : 1945 78 From: Azam Alarcon PCP: Dr. Socrates Spangler MD Status:ADM I N Location: [place] [address] Reason for Visit Reason for Visit: Diagnoses Acute respiratory failure with hypoxia (06/13/24) Objective Data Objective Data Vital Signs: Vital Signs Temp Pulse Resp BP Pulse Ox O2 Del Method O2 Flow Rate 98.0 F 75 16 125/56 H 94 High Flow 4 06/16/24 09:28 06/16/24 09:28 06/16/24 09:28 06/16/24 09:28 06/16/24 09:28 06/16/24 09:30 06/16/24 09:30 FiO2 30 06/14/24 03:15 Oxygen Flow Rate (L/min) 4 Oxygen Delivery Method High Flow Weight: 388 lb 14.327 oz Body Mass Index (BMI) 62.7 Intake & Output: Intake and Output for Last 24 Hours 06/14/24 06/15/24 06/16/24 23:59 23:59 23:59 Intake Total 695 / 695 1025 / 1025 305 / 305 Output Total 2750 / 2750 1725 / 1725 525 / 525 Balance -2054 / -2054 -700 / -700 -220 / -220 Lab / Micro Data 06/16/24 04:55 06/16/24 04:55 Labs: Laboratory Results - last 24 hr 06/15/24 17:02: POC Glucose 211 H 06/15/24 22:41: POC Glucose 186 H 06/16/24 04:55: WBC 9.2, RBC 5.18, Hgb 14.4, Hct 47.2 H, MCV 91.1, MCH 27.8, MCHC 30.5 L, RDW Std Deviation 50.1 H, RDW Coeff of Ryan 14.8 H, Plt Count 167, MPV 9.8, Immature Gran % (Auto) 0.200, Neut % (Auto) 84.6 H, Lymph % (Auto) 12.3L, Morehouse % (Auto) 2.8, Eos % (Auto) 0.0, Baso % (Auto) 0.1, Absolute Neuts (auto)7.8 H, Absolute Lymphs (auto) 1.13, Nucleated RBC % 0, Sodium 136, Potassium 4.5, Chloride 101, Carbon Dioxide 18.1 L, Anion Gap 17 H, BUN 43 H, Creatinine 1.56 H, Estim Creat Clear Calc 48.19 L, Est GFR (MDRD) Non-Af 33 L, BUN/Creatinine Ratio 27.3 H, Glucose 195 H, Calcium 8.6 06/16/24 06:01: POC Glucose 204 H 06/16/24 12:20: POC Glucose 223 H Micro: Microbiology 06/14/24 22:29 Sputum, Expectorated/Coughed Gram Stain - Final 06/14/24 22:29 Sputum, Expectorated/Coughed Respiratory Culture - Preliminary Appears to be normal respiratory hannah. Further studies to follow. 06/13/24 19:40 Blood Culture (Wb) - Right Wrist Blood Culture - Preliminary No growth in 48 hours. 06/13/24 19:40 Blood Culture (Wb) - Chest Blood Culture - Preliminary No growth in 48 hours. 06/14/24 02:45 Urine Catheter - Hill Legionella Antigen - Final 06/14/24 02:45 Urine Catheter - Hill Streptococcus pneumoniae Antigen (M - Final 06/13/24 22:55 Mucosa - Nasopharyngeal Respiratory Panel (PCR) - Final 06/13/24 19:55 Mucosa - Nose SARS-CoV-2, Influenza & RSV (PCR) - Final Radiography Diagnostic Testing: Radiology Impression Foot X-Ray 06/16/24 10:55 IMPRESSION: Findings are worrisome for osteomyelitis of the 2nd to the 5th toe. Reading [facility] Physical Exam Narrative Seen and examined Shortness of breath is better. No chest pain. On BiPAP at night and naps. Earlier, the patient right 2nd and 3rd toes are bruised transfer at the time of admission. Patient was admitted with shortness of breath. Earlier her BiPAP was not working for last 3 to 4 weeks. No fever. Feels chest congestion, coughing up mucus. No fever Physical exam General: Alert, Oriented x3, Cooperative, super morbid obesity: BMI 63.3 kg/m?, limited exam HEENT: Short and wide neck atraumatic, PERRLA, EOMI, Normocephalic Oral: Deep oropharyngeal strength not visualized Neck: Supple, No JVD, Negative Carotid Bruits Chest wall/Lungs: Air entry diminished in bilateral lung bases. Cannot sit up because of morbid body habitus. No crepitations on anterior lung auscultation. Cardiovascular: Low intensity heart sounds Rally from morbid obesity. No M/G/R Abdomen: Bowel Sounds Present, Soft, Non Tender, Non-Distended : No dysuria. No renal angle tenderness. No suprapubic tenderness. Extremities: Bilateral pedal edema 2+ edema, Capillary Refill Less than 3 Seconds Skin: right toe bruise, bluish discoloration since admission. Musculoskeletal: No Tenderness to Palpation of Joints or Extremities ROM decreased. Neurological: Cranial nerves II-XII grossly intact, DTR 2+/4. No acute focal neurological deficit. Psych/Mental Status: Flat affect Assessment & Plan Assessment/Plan (1) Acute hypoxic respiratory failure: PLAN: Plan The patient is an 78 y/o F was brought to ED by EMS for shortness of breath and hypoxia, pulse ox 70% on room air for 1 day. Not on oxygen at baseline. Patient had slight nonproductive cough, mild congestion and rhinorrhea. No fever #1. Acute Hypoxic Respiratory Failure secondary to Possible RLL Infilrtrate/Community Acquired PNA with Acute Bronchospasms in addition to Possible Acute Decompensated HF unclear type and classification: Patient denies chest pain. Triple PCR for SARS-CoV-2, flu and RSV are negative. Respiratory panel and urinary antigens are negative. Leukocytosis resolved. Chest x-ray reviewed and shows unturned ventilation, cardiomegaly suggestive of pulmonary congestion/edema. ABG 7.30/60/70s on BiPAP 20/10, RR 12 at 30% FiO2. Bicarb reported in BMP sincelong as it suddenly dropped from 26.5-19.3 but in ABGs about 31-32. Therefore mainly seems chronic respiratory acidosis Patient started on IV ceftriaxone and azithromycin. Empirically on IV Solu- Medrol. Patient is being managed on scheduled bronchodilator, IV Solu-Medrol, Mucinex, incentive spirometry and Pep. 06/15: Repeat chest x-ray portable done with suboptimal images. Shows improvementin lung congestion but underventilated. Continue antibiotics and above treatment. 06/16: Shortness of breath is better #2. QUYNH on chronic Kidney Disease Stage IIIA: Admission BUN/Cr 28/1.14, GFR 49,baseline renal function unfortunately remote with last noted 11/22/2016 creatinine 0.98, 06/14: BUN/creatinine 32/1.41. HCTZ discontinued. Losartan dose decreased to 50 mg daily. Monitor kidney function. 06/15: Creatinine jumped up from 1.14-1.54 in 48 hours therefore meets criteria for QUYNH. Hold furosemide and losartan and follow-up kidney function. Bluish discoloration, bruise right toes present since admission: X-ray of the right foot was done reported as Lysis of the middle and distal phalanx of the 3rd digit soft tissue swelling about 2nd, 3rd, 4th consistent lysis of the distal phalanx of the 5th digit. Findings are worrisome for osteomyelitis of second to the fifth toe oyster culler consulted for that. The oyster culler also reviewed the x-ray and thinks the x-ray reporting is not correct/wrong. Clinically, I do not suspect #3. Hypertension: Continue home regimen including metoprolol, amlodipine, losartan, hydrochlorothiazide, pulse dose with IV lasix as noted above, PRN hydralazine. 4/3:HCTZ discontinued. Losartan dose decreased to 50 mg daily. 4/5: Patient blood pressure is better. #4. Hyperlipidemia: continue patient statin therapy. FLP LDL 56, HDL 35. #5. Hypothyroidism: continue patient home levothyroxine regimen. TSH/FT4 1.690and 1.30 respectively; normal. #6. Diabetes mellitus type II: Hold oral home regimen, continue home insulin regimen, ADA diet, accu checks w/ ISS. #7. Morbid Obesity/significantly chronically limited mobility normally using predominantly wheelchair: Weight loss and lifestyle changes encouraged, nutrition consulted. #8. Allergic rhinitis: continue patient home fexofenadine regimen. #9. GERD: continue patient on PPI. #10. JAYA, hypoventilation syndrome: Complicates presentation, normally using CPAP nightly, given current presentation will continue with BiPAP. Transition once appropriate. #11. DVT prophylaxis: Chemoprophylactic dosing of Lovenox pending duplex ultrasound. Given inability to fit in the scanner at this point pending bilateral lower extremity duplex ultrasounds and if there is no obvious clot in her legs then lower suspicion for anything in her lungs but if any concerning findings in the legs then certainly would transition to heparin drip at that point. #12. CODE status: Patient NICOLE is her daughter and living will is currently inplace. Discussed CODE status at length including difference between FULL code, DNR-CCA and DNR-CC status. Following discussions about the differences in these status, requested Full Code status. Charges/Coding Visit Charges Inpatient E&M: 76418 Subs Hosp L2 06/16/24 1427 <Electronically signed by Azam Montgomery MD> Cosigner Signature (if applicable): CC: ~ Signed [facility] Work Phone: [phone]) 944-750904-05-2025 Progress note [facility] Medical Records Department [address] [place] [address] Progress Note - Hospitalist 06/16/24 1257 MR#: [id number] Acct: [id number] Name: TOD HUNT Rep #:[id number] : 1945 78 From: Azam Alarcon PCP: Dr. Socrates Spangler MD Status:ADM I N Location: [place] [address] Reason for Visit Reason for Visit: Diagnoses Acute respiratory failure with hypoxia (06/13/24) Objective Data Objective Data Vital Signs: Vital Signs Temp Pulse Resp BP Pulse Ox O2 Del Method O2 Flow Rate 98.0 F 75 16 125/56 H 94 High Flow 4 06/16/24 09:28 06/16/24 09:28 06/16/24 09:28 06/16/24 09:28 06/16/24 09:28 06/16/24 09:30 06/16/24 09:30 FiO2 30 06/14/24 03:15 Oxygen Flow Rate (L/min) 4 Oxygen Delivery Method High Flow Weight: 388 lb 14.327 oz Body Mass Index (BMI) 62.7 Intake & Output: Intake and Output for Last 24 Hours 06/14/24 06/15/24 06/16/24 23:59 23:59 23:59 Intake Total 695 / 695 1025 / 1025 305 / 305 Output Total 2750 / 2750 1725 / 1725 525 / 525 Balance -2055 / -2055 -700 / -700 -220 / -220 Lab / Micro Data 06/16/24 04:55 06/16/24 04:55 Labs: Laboratory Results - last 24 hr 06/15/24 17:02: POC Glucose 211 H 06/15/24 22:41: POC Glucose 186 H 06/16/24 04:55: WBC 9.2, RBC 5.18, Hgb 14.4, Hct 47.2 H, MCV 91.1, MCH 27.8, MCHC 30.5 L, RDW Std Deviation 50.1 H, RDW Coeff of Ryan 14.8 H, Plt Count 167, MPV 9.8, Immature Gran % (Auto) 0.200, Neut% (Auto) 84.6 H, Lymph % (Auto) 12.3L, Morehouse % (Auto) 2.8, Eos % (Auto) 0.0, Baso % (Auto) 0.1, Absolute Neuts (auto)7.8 H, Absolute Lymphs (auto) 1.13, Nucleated RBC % 0, Sodium 136, Potassium 4.5, Chloride 101, Carbon Dioxide 18.1 L, Anion Gap 17 H, BUN 43 H, Creatinine 1.56 H, Estim Creat Clear Calc 48.19 L, Est GFR (MDRD) Non-Af 33 L, BUN/Creatinine Ratio 27.3 H, Glucose 195 H, Calcium 8.6 06/16/24 06:01: POC Glucose 204 H 06/16/24 12:20: POC Glucose 223 H Micro: Microbiology 06/14/24 22:29 Sputum, Expectorated/Coughed Gram Stain - Final 06/14/24 22:29 Sputum, Expectorated/Coughed Respiratory Culture - Preliminary Appears to be normal respiratory hannah. Further studies to follow. 06/13/24 19:40 Blood Culture (Wb) - Right Wrist Blood Culture - Preliminary No growth in 48 hours. 06/13/24 19:40 Blood Culture (Wb) - Chest Blood Culture - Preliminary No growth in 48 hours. 06/14/24 02:45 Urine Catheter - Hill Legionella Antigen - Final 06/14/24 02:45 Urine Catheter - Hill Streptococcus pneumoniae Antigen (M - Final 06/13/24 22:55 Mucosa - Nasopharyngeal Respiratory Panel (PCR) - Final 06/13/24 19:55 Mucosa - Nose SARS-CoV-2, Influenza & RSV (PCR) - Final Radiography Diagnostic Testing: Radiology Impression Foot X-Ray 06/16/24 10:55 IMPRESSION: Findings are worrisome for osteomyelitis of the 2nd to the 5th toe. Reading Location[facility] Physical Exam Narrative Seen and examined Shortness of breath is better. No chest pain. On BiPAP at night and naps. Earlier, the patient right 2nd and 3rd toes are bruised transfer at the time of admission. Patient was admitted with shortness of breath. Earlier her BiPAP was not working for last 3 to 4 weeks. No fever. Feels chest congestion, coughing up mucus. No fever Physical exam General: Alert, Oriented x3, Cooperative, super morbid obesity: BMI 63.3 kg/m?, limited exam HEENT: Short and wide neck atraumatic, PERRLA, EOMI, Normocephalic Oral: Deep oropharyngeal strength not visualized Neck: Supple, No JVD, Negative Carotid Bruits Chest wall/Lungs: Air entry diminished in bilateral lung bases. Cannot sit up because of morbid body habitus. No crepitations on anterior lung auscultation. Cardiovascular: Low intensity heart sounds Rally from morbid obesity. No M/G/R Abdomen: Bowel Sounds Present, Soft, Non Tender, Non-Distended : No dysuria. No renal angle tenderness. No suprapubic tenderness. Extremities: Bilateral pedal edema 2+ edema, Capillary Refill Less than 3 Seconds Skin: right toe bruise, bluish discoloration since admission. Musculoskeletal: No Tenderness to Palpation of Joints or Extremities ROM decreased. Neurological: Cranial nerves II-XII grossly intact, DTR 2+/4. No acute focal neurological deficit. Psych/Mental Status: Flat affect Assessment & Plan Assessment/Plan (1) Acute hypoxic respiratory failure: PLAN: Plan The patient is an 78 y/o F was brought to ED by EMS for shortness of breath and hypoxia, pulse ox 70% on room air for 1 day. Not on oxygen at baseline. Patient had slight nonproductive cough, mild congestion and rhinorrhea. No fever #1. Acute Hypoxic Respiratory Failure secondary to Possible RLL Infilrtrate/Community Acquired PNA with Acute Bronchospasms in addition to Possible Acute Decompensated HF unclear type and classification: Patient denies chest pain. Triple PCR for SARS-CoV-2, flu and RSV are negative. Respiratory panel and urinary antigens are negative. Leukocytosis resolved. Chest x-ray reviewed and shows unturnedventilation, cardiomegaly suggestive of pulmonary congestion/edema. ABG 7.30/60/70s on BiPAP 20/10, RR 12 at 30% FiO2. Bicarb reported in BMP sincelong as it suddenly dropped from 26.5-19.3 but in ABGs about 31-32. Therefore mainly seems chronic respiratory acidosis Patient started on IV ceftriaxone and azithromycin. Empirically on IV Solu- Medrol. Patient is beingmanaged on scheduled bronchodilator, IV Solu-Medrol, Mucinex, incentive spirometry and Pep. /4: Repeat chest x-ray portable done with suboptimal images. Shows improvementin lung congestion but underventilated. Continue antibiotics and above treatment. /5: Shortness of breath is better #2. QUYNH on chronic Kidney Disease Stage IIIA: Admission BUN/Cr 28/1.14, GFR 49,baseline renal function unfortunately remote with last noted 11/22/2016 creatinine 0.98, 4/3: BUN/creatinine 32/1.41. HCTZ discontinued. Losartan dose decreased to 50 mg daily. Monitor kidney function. 06/15: Creatinine jumped up from 1.14-1.54 in 48 hours therefore meets criteria for QUYNH. Hold furosemide and losartan and follow-up kidney function. Bluish discoloration, bruise right toes present since admission: X-ray of the right foot was done reported as Lysis of the middle and distal phalanx of the 3rd digit soft tissue swelling about 2nd, 3rd, 4th consistent lysis of the distal phalanx of the 5th digit. Findings are worrisome for osteomyelitis of second to the fifth toe oyster culler consulted for that. The oyster culler also reviewed the x-ray and thinks the x-ray reporting is not correct/wrong. Clinically, I do not suspect #3. Hypertension: Continue home regimen including metoprolol, amlodipine, losartan, hydrochlorothiazide, pulse dose with IV lasix as noted above, PRN hydralazine. 4/3:HCTZ discontinued. Losartan dose decreased to 50 mg daily. 4/5: Patient blood pressure is better. #4. Hyperlipidemia: continue patient statin therapy. FLP LDL 56, HDL 35. #5. Hypothyroidism: continue patient home levothyroxine regimen. TSH/FT4 1.690and 1.30 respectively; normal. #6. Diabetes mellitus type II: Hold oral home regimen, continue home insulin regimen, ADA diet, accu checks w/ ISS. #7. Morbid Obesity/significantly chronically limited mobility normally using predominantly wheelchair: Weight loss and lifestyle changes encouraged, nutrition consulted. #8. Allergic rhinitis: continue patient home fexofenadine regimen. #9. GERD: continue patient on PPI. #10. JAYA, hypoventilation syndrome: Complicates presentation, normally using CPAP nightly, given current presentation will continue with BiPAP. Transition once appropriate. #11. DVT prophylaxis: Chemoprophylactic dosing of Lovenox pending duplex ultrasound. Given inability to fit in the scanner at this point pending bilateral lower extremity duplex ultrasounds and if there is no obvious clot in her legs then lower suspicion for anything in her lungs but if any concerning findings in the legs then certainly would transition to heparin drip at that point. #12. CODE status: Patient NICOLE is her daughter and living will is currently inplace. Discussed CODE status at length including difference between FULL code, DNR-CCA and DNR-CC status. Following discussions about the differences in these status, requested Full Code status. Charges/Coding Visit Charges Inpatient E&M: 74138 Subs Hosp L2 06/16/24 1427 Cosigner Signature (if applicable): CC: ~ Signed [facility]04-05-2025 Radiology Diagnostic study note [facility] Imaging Services [address] [place] [address] Foot min 3 Views MR#: [id number] Acct: [id number] Name: TOD HUNT Rep #: [id number] : 1945 F 78 From: Pet er Jadon HOLMAN PCP: Dr. Socrates Spangler MD Status: ADM I N Study:Foot min 3 Views Date of Exam: 08/05 Exam# [id number] Ordering Dr: Betty Montgomery MD EXAM: Right foot three-view radiographs CLINICAL HISTORY: Discoloration and bruising from 2nd toe to the 5th toe COMPARISON: None. TECHNIQUE: AP frontal, oblique and lateral radiographs of the right foot are obtained. FINDINGS: Previous hardware fixation of distal fibula fracture and medial malleolar fracture. Hardware appears normally positioned and intact. Diffusely demineralized bones of the right foot. Lysis of the middle and distal phalanx of the 3rd digit soft tissue swelling about 2nd, 3rd, 4th consistent lysis of the distal phalanx of the 5th digit RAD/Foot min 3 Views IMPRESSION: Findings are worrisome for osteomyelitis of the 2nd to the 5th toe. Reading Location: [facility] CC: Dr. Socrates Spangler MD; Dr. Azam Montgomery MD ~ Lead Refinery Supervisor: Signed [facility]04-04-2025 Progress note Author Azam Montgomery [facility] Note Date/Time June 15, 2024 1:19 pm [facility] Medical Records Department [address] [place] [address] Progress Note - Hospitalist 06/15/24 0847 MR#: [id number] Acct: [id number] Name: TOD HUNT Rep #:[id number] : 1945 78 From: Azam Alarcon PCP: Dr. Socrates Spangler MD Status:ADM I N Location: [place] [address] Reason for Visit Reason for Visit: Diagnoses Acute respiratory failure with hypoxia (06/13/24) Objective Data Objective Data Vital Signs: Vital Signs Temp Pulse Resp BP Pulse Ox O2 Del Method O2 Flow Rate 97.7 F L 62 18 139/91 H 98 High Flow 6 06/15/24 06:25 06/15/24 07:05 06/15/24 07:05 06/15/24 06:25 06/15/24 07:05 06/15/24 07:05 06/15/24 07:05 FiO2 30 06/14/24 03:15 Oxygen Flow Rate (L/min) 6 Oxygen Delivery Method High Flow Weight: 391 lb 15.71 oz Body Mass Index (BMI) 63.2 Intake & Output: Intake and Output for Last 24 Hours 06/13/24 06/14/24 06/15/24 23:59 23:59 23:59 Intake Total 695 / 695 Output Total 2750 / 2750 1025 / 1025 Balance -2054 / -2054 -1025 / -1025 Lab / Micro Data 06/15/24 05:55 06/15/24 05:55 Labs: Laboratory Results - last 24 hr 06/14/24 12:02: POC Glucose 235 H 06/14/24 16:43: POC Glucose 195 H 06/14/24 20:41: POC Glucose 230 H 06/15/24 05:55: WBC 10.4, RBC 5.47 H, Hgb 15.1 H, Hct 49.6 H, MCV 90.7, MCH 27.6, MCHC 30.4 L, RDW Std Deviation 50.6 H, RDW Coeff of Ryan 15.0 H, Plt Count 177, MPV 9.5, Immature Gran % (Auto) 0.400, Neut % (Auto) 82.7 H, Lymph % (Auto)13.8 L, Morehouse % (Auto) 3.0, Eos % (Auto) 0.0, Baso % (Auto) 0.1, Absolute Neuts (auto) 8.6 H, Absolute Lymphs (auto) 1.44, Nucleated RBC % 0, Sodium 140, Potassium 3.8, Chloride 102, Carbon Dioxide 26.8, Anion Gap 12, BUN 37 H, Creatinine 1.54 H, Estim Creat Clear Calc 49.08 L, Est GFR (MDRD) Non-Af 34 L, BUN/Creatinine Ratio 23.9 H, Glucose 191 H, Calcium 9.0, Magnesium 1.7 06/15/24 06:19: POC Glucose 188 H Micro: Microbiology 06/14/24 02:45 Urine Catheter - Hill Legionella Antigen - Final 06/14/24 02:45 Urine Catheter - Hill Streptococcus pneumoniae Antigen (M - Final 06/13/24 22:55 Mucosa - Nasopharyngeal Respiratory Panel (PCR) - Final 06/13/24 19:55 Mucosa - Nose SARS-CoV-2, Influenza & RSV (PCR) - Final Radiography Diagnostic Testing: Radiology Impression Echocardiogram 06/14/24 05:55 Interpretation Summary Normal LV size. Left ventricular systolic function is normal. The left ventricular ejection fraction is 60 %. Contrast injection was performed. The study was technically limited. Ordering Physician: Estela Staton Referring Physician: Socrates Spangler Performed By: Stephenie Gerardo, RDCS, RVT Physical Exam Narrative Seen and examined Shortness of breath is better. No chest pain. On BiPAP at night and naps Patient was admitted with shortness of breath. Earlier her BiPAP was not working for last 3 to 4 weeks. No fever. Feels chest congestion, coughing up mucus. No fever Physical exam General: Alert, Oriented x3, Cooperative, super morbid obesity: BMI 63.3 kg/m?, limited exam HEENT: Short and wide neck atraumatic, PERRLA, EOMI, Normocephalic Oral: Deep oropharyngeal strength not visualized Neck: Supple, No JVD, Negative Carotid Bruits Chest wall/Lungs: Air entry diminished in bilateral lung bases. Cannot sit up because of morbid body habitus. No crepitations on anterior lung auscultation. Cardiovascular: Low intensity heart sounds Rally from morbid obesity. No M/G/R Abdomen: Bowel Sounds Present, Soft, Non Tender, Non-Distended : No dysuria. No renal angle tenderness. No suprapubic tenderness. Extremities: Bilateral pedal edema 2+ edema, Capillary Refill Less than 3 Seconds Skin: No rashes, No breakdown Musculoskeletal: No Tenderness to Palpation of Joints or Extremities ROM decreased. Neurological: Cranial nerves II-XII grossly intact, DTR 2+/4. No acute focal neurological deficit. Psych/Mental Status: Flat affect Assessment & Plan Assessment/Plan (1) Acute hypoxic respiratory failure: PLAN: Plan The patient is an 78 y/o F was brought to ED by EMS for shortness of breath and hypoxia, pulse ox 70% on room air for 1 day. Not on oxygen at baseline. Patient had slight nonproductive cough, mild congestion and rhinorrhea. No fever #1. Acute Hypoxic Respiratory Failure secondary to Possible RLL Infilrtrate/Community Acquired PNA with Acute Bronchospasms in addition to Possible Acute Decompensated HF unclear type and classification: Patient denies chest pain. Triple PCR for SARS-CoV-2, flu and RSV are negative. Respiratory panel and urinary antigens are negative. Leukocytosis resolved. Chest x-ray reviewed and shows unturned ventilation, cardiomegaly suggestive of pulmonary congestion/edema. ABG 7.30/60/70s on BiPAP 20/10, RR 12 at 30% FiO2. Bicarb reported in BMP sincelong as it suddenly dropped from 26.5-19.3 but in ABGs about 31-32. Therefore mainly seems chronic respiratory acidosis Patient started on IV ceftriaxone and azithromycin. Empirically on IV Solu- Medrol. Patient is being managed on scheduled bronchodilator, IV Solu-Medrol, Mucinex, incentive spirometry and Pep. /: Repeat chest x-ray portable done with suboptimal images. Shows improvementin lung congestion but underventilated. Continue antibiotics and above treatment. Next #2. QUYNH on chronic Kidney Disease Stage IIIA: Admission BUN/Cr 28/1.14, GFR 49,baseline renal function unfortunately remote with last noted 11/22/2016 creatinine 0.98, /: BUN/creatinine 32/1.41. HCTZ discontinued. Losartan dose decreased to 50 mg daily. Monitor kidney function. /4: Creatinine jumped up from 1.14-1.54 in 48 hours therefore meets criteria for QUYNH. Hold furosemide and losartan and follow-up kidney function. #3. Hypertension: Continue home regimen including metoprolol, amlodipine, losartan, hydrochlorothiazide, pulse dose with IV lasix as noted above, PRN hydralazine. /:HCTZ discontinued. Losartan dose decreased to 50 mg daily. #4. Hyperlipidemia: continue patient statin therapy. FLP LDL 56, HDL 35. #5. Hypothyroidism: continue patient home levothyroxine regimen. TSH/FT4 1.690and 1.30 respectively; normal. #6. Diabetes mellitus type II: Hold oral home regimen, continue home insulin regimen, ADA diet, accu checks w/ ISS. #7. Morbid Obesity/significantly chronically limited mobility normally using predominantly wheelchair: Weight loss and lifestyle changes encouraged, nutrition consulted. #8. Allergic rhinitis: continue patient home fexofenadine regimen. #9. GERD: continue patient on PPI. #10. JAYA, hypoventilation syndrome: Complicates presentation, normally using CPAP nightly, given current presentation will continue with BiPAP. Transition once appropriate. #11. DVT prophylaxis: Chemoprophylactic dosing of Lovenox pending duplex ultrasound. Given inability to fit in the scanner at this point pending bilateral lower extremity duplex ultrasounds and if there is no obvious clot in her legs then lower suspicion for anything in her lungs but if any concerning findings in the legs then certainly would transition to heparin drip at that point. #12. CODE status: Patient NICOLE is her daughter and living will is currently inplace. Discussed CODE status at length including difference between FULL code, DNR-CCA and DNR-CC status. Following discussions about the differences in these status, requested Full Code status. Charges/Coding Visit Charges Inpatient E&M: 27688 Subs Hosp L2 06/15/24 1318 <Electronically signed by Azam Montgomery MD> Cosigner Signature (if applicable): CC: ~ Signed ADDENDUM by Dr. Azam Montgomery MD on 06/15/24 at 1319 Visit Charges Inpatient E&M: 44318 Subs Hosp L2 06/15/24 1319<Electronically signed by Azam Montgomery MD> Cosigner Signature (if applicable): cc: ~* Signed [facility] Work Phone: 1(577) 387-643604-04-2025 Progress note [facility] Medical Records Department [address] [place] [address] Progress Note - Hospitalist 06/15/24 0847 MR#: [id number] Acct: [id number] Name: TOD HUNT Rep #:[id number] : 1945 78 From: Azam Alarcon PCP: Dr. Socrates Spangler MD Status:ADM I N Location: [place] [address] Reason for Visit Reason for Visit: Diagnoses Acute respiratory failure with hypoxia (06/13/24) Objective Data Objective Data Vital Signs: Vital Signs Temp Pulse Resp BP Pulse Ox O2 Del Method O2 Flow Rate 97.7 F L 62 18 139/91 H 98 High Flow 6 06/15/24 06:25 06/15/24 07:05 06/15/24 07:05 06/15/24 06:25 06/15/24 07:05 06/15/24 07:05 06/15/24 07:05 FiO2 30 06/14/24 03:15 Oxygen Flow Rate (L/min) 6 Oxygen Delivery Method High Flow Weight: 391 lb 15.71 oz Body Mass Index (BMI) 63.2 Intake & Output: Intake and Output for Last 24 Hours 06/13/24 06/14/24 06/15/24 23:59 23:59 23:59 Intake Total 695 / 695 Output Total 2750 / 2750 1025 / 1025 Balance -2054 / -2054 -1025 / -1025 Lab / Micro Data 06/15/24 05:55 06/15/24 05:55 Labs: Laboratory Results - last 24 hr 06/14/24 12:02: POC Glucose 235 H 06/14/24 16:43: POC Glucose 195 H 06/14/24 20:41: POC Glucose 230 H 06/15/24 05:55: WBC 10.4, RBC 5.47 H, Hgb 15.1 H, Hct 49.6 H, MCV 90.7, MCH 27.6, MCHC 30.4 L, RDW Std Deviation 50.6 H, RDW Coeff of Ryan 15.0 H, Plt Count 177, MPV 9.5, Immature Gran % (Auto) 0.400,Neut % (Auto) 82.7 H, Lymph % (Auto)13.8 L, Morehouse % (Auto) 3.0, Eos % (Auto) 0.0, Baso % (Auto) 0.1,Absolute Neuts (auto) 8.6 H, Absolute Lymphs (auto) 1.44, Nucleated RBC % 0, Sodium 140, Potassium 3.8, Chloride 102, Carbon Dioxide 26.8, Anion Gap 12, BUN 37 H, Creatinine 1.54 H, Estim Creat Clear Calc 49.08 L, Est GFR (MDRD) Non-Af 34 L, BUN/Creatinine Ratio 23.9 H, Glucose 191 H, Calcium 9.0, Magnesium 1.7 06/15/24 06:19: POC Glucose 188 H Micro: Microbiology 06/14/24 02:45 Urine Catheter - Hill Legionella Antigen - Final 06/14/24 02:45 Urine Catheter - Hill Streptococcus pneumoniae Antigen (M - Final 06/13/24 22:55 Mucosa - Nasopharyngeal Respiratory Panel (PCR) - Final 06/13/24 19:55 Mucosa - Nose SARS-CoV-2, Influenza & RSV (PCR) - Final Radiography Diagnostic Testing: Radiology Impression Echocardiogram 06/14/24 05:55 Interpretation Summary Normal LV size. Left ventricular systolic function is normal. The left ventricular ejection fraction is 60 %. Contrast injection was performed. The study was technically limited. Ordering Physician: Estela Staton Referring Physician: Socrates Spangler Performed By: Stephenie Gerardo, ALYSSIA, RVT Physical Exam Narrative Seen and examined Shortness of breath is better. No chest pain. On BiPAP at night and naps Patient was admitted with shortness of breath. Earlier her BiPAP was not working for last 3 to 4 weeks. No fever. Feels chest congestion, coughing up mucus. No fever Physical exam General: Alert, Oriented x3, Cooperative, super morbid obesity: BMI 63.3 kg/m?, limited exam HEENT: Short and wide neck atraumatic, PERRLA, EOMI, Normocephalic Oral: Deep oropharyngeal strength not visualized Neck: Supple, No JVD, Negative Carotid Bruits Chest wall/Lungs: Air entry diminished in bilateral lung bases. Cannot sit up because of morbid body habitus. No crepitations on anterior lung auscultation. Cardiovascular: Low intensity heart sounds Rally from morbid obesity. No M/G/R Abdomen: Bowel Sounds Present, Soft, Non Tender, Non-Distended : No dysuria. No renal angle tenderness. No suprapubic tenderness. Extremities: Bilateral pedal edema 2+ edema, Capillary Refill Less than 3 Seconds Skin: No rashes, No breakdown Musculoskeletal: No Tenderness to Palpation of Joints or Extremities ROM decreased. Neurological: Cranial nerves II-XII grossly intact, DTR 2+/4. No acute focal neurological deficit. Psych/Mental Status: Flat affect Assessment & Plan Assessment/Plan (1) Acute hypoxic respiratory failure: PLAN: Plan The patient is an 78 y/o F was brought to ED by EMS for shortness of breath and hypoxia, pulse ox 70% on room air for 1 day. Not on oxygen at baseline. Patient had slight nonproductive cough, mild congestion and rhinorrhea. No fever #1. Acute Hypoxic Respiratory Failure secondary to Possible RLL Infilrtrate/Community Acquired PNA with Acute Bronchospasms in addition to Possible Acute Decompensated HF unclear type and classification: Patient denies chest pain. Triple PCR for SARS-CoV-2, flu and RSV are negative. Respiratory panel and urinary antigens are negative. Leukocytosis resolved. Chest x-ray reviewed and shows unturnedventilation, cardiomegaly suggestive of pulmonary congestion/edema. ABG 7.30/60/70s on BiPAP 20/10, RR 12 at 30% FiO2. Bicarb reported in BMP sincelong as it suddenly dropped from 26.5-19.3 but in ABGs about 31-32. Therefore mainly seems chronic respiratory acidosis Patient started on IV ceftriaxone and azithromycin. Empirically on IV Solu- Medrol. Patient is beingmanaged on scheduled bronchodilator, IV Solu-Medrol, Mucinex, incentive spirometry and Pep. /: Repeat chest x-ray portable done with suboptimal images. Shows improvementin lung congestion but underventilated. Continue antibiotics and above treatment. Next #2. QUYNH on chronic Kidney Disease Stage IIIA: Admission BUN/Cr 28/1.14, GFR 49,baseline renal function unfortunately remote with last noted 11/22/2016 creatinine 0.98, 06/14: BUN/creatinine 32/1.41. HCTZ discontinued. Losartan dose decreased to 50 mg daily. Monitor kidney function. 06/15: Creatinine jumped up from 1.14-1.54 in 48 hours therefore meets criteria for QUYNH. Hold furosemide and losartan and follow-up kidney function. #3. Hypertension: Continue home regimen including metoprolol, amlodipine, losartan, hydrochlorothiazide, pulse dose with IV lasix as noted above, PRN hydralazine. 06/14:HCTZ discontinued. Losartan dose decreased to 50 mg daily. #4. Hyperlipidemia: continue patient statin therapy. FLP LDL 56, HDL 35. #5. Hypothyroidism: continue patient home levothyroxine regimen. TSH/FT4 1.690and 1.30 respectively; normal. #6. Diabetes mellitus type II: Hold oral home regimen, continue home insulin regimen, ADA diet, accu checks w/ ISS. #7. Morbid Obesity/significantly chronically limited mobility normally using predominantly wheelchair: Weight loss and lifestyle changes encouraged, nutrition consulted. #8. Allergic rhinitis: continue patient home fexofenadine regimen. #9. GERD: continue patient on PPI. #10. JAYA, hypoventilation syndrome: Complicates presentation, normally using CPAP nightly, given current presentation will continue with BiPAP. Transition once appropriate. #11. DVT prophylaxis: Chemoprophylactic dosing of Lovenox pending duplex ultrasound. Given inability to fit in the scanner at this point pending bilateral lower extremity duplex ultrasounds and if there is no obvious clot in her legs then lower suspicion for anything in her lungs but if any concerning findings in the legs then certainly would transition to heparin drip at that point. #12. CODE status: Patient NICOLE is her daughter and living will is currently inplace. Discussed CODE status at length including difference between FULL code, DNR-CCA and DNR-CC status. Following discussions about the differences in these status, requested Full Code status. Charges/Coding Visit Charges Inpatient E&M: 01890 Subs Hosp L2 06/15/24 1318 Cosigner Signature (if applicable): CC: ~ Signed ADDENDUM by Dr. Azam Montgomery MD on 06/15/24 at 1319 Visit Charges Inpatient E&M: 37239 Subs Hosp L2 06/15/24 1319 Cosigner Signature (if applicable): cc: ~* Signed [facility]04-04-2025 Radiology Diagnostic study note [facility] Imaging Services [address] [place] [address] Chest 1 View (Portable) MR#: [id number] Acct: [id number] Name: TOD HUNT Rep #: [id number] : 1945 F 78 From: Sue Golden MD PCP: Dr. Socrates Spangler MD Status: ADM I N Study:Chest 1 View (Portable) Date of Exam: 06/15/24 Exam# [id number] Ordering Dr: Betty Montgomery MD EXAM: XR Chest, 1 View CLINICAL INDICATION: PULM EDEMA, R/O PNEUMONIA TECHNIQUE: Frontal view of the chest. COMPARISON: No relevant prior studies available. FINDINGS: LUNGS AND PLEURAL SPACES: See below. HEART: Cardiomegaly with pulmonary congestion and edema. Superimposed pneumoniacannot be excluded. MEDIASTINUM: Unremarkable. Normal mediastinal contour. BONES/JOINTS: Unremarkable. No acute fracture. RAD/Chest 1 View (Portable) IMPRESSION: Cardiomegaly with pulmonary congestion and edema. Superimposed pneumonia cannot be excluded. Reading Location: [facility] CC: Dr. Socrates Spangler MD; Dr. Azam Montgomery MD ~ Lead Refinery Supervisor: Signed [facility]04-03-2025 Progress note Author Azam Montgomery [facility] Note Date/Time June 14, 2024 12:3 9pm [facility] Medical Records Department [address] [place] [address] Progress Note - Hospitalist 06/14/24 0959 MR#: [id number] Acct: [id number] Name: TOD HUNT Rep #:[id number] : 1945 78 From: Azam Alarcon PCP: Dr. Socrates Spangler MD Status:ADM I N Location: [place] [address] Reason for Visit Reason for Visit: Diagnoses Acute respiratory failure with hypoxia (06/13/24) Objective Data Objective Data Vital Signs: Vital Signs Temp Pulse Resp BP Pulse Ox O2 Del Method O2 Flow Rate 98.0 F 71 18 122/55 H 97 Nasal Cannula 4 06/14/24 09:34 06/14/24 09:34 06/14/24 09:34 06/14/24 09:34 06/14/24 09:34 06/14/24 09:34 06/14/24 09:34 FiO2 30 06/14/24 03:15 Oxygen Flow Rate (L/min) 4 Oxygen Delivery Method Nasal Cannula Weight: 392 lb 3.237 oz Body Mass Index (BMI) 63.3 Intake & Output: Intake and Output for Last 24 Hours 06/12/24 06/13/24 06/14/24 23:59 23:59 23:59 Intake Total 150 / 150 Output Total 2150 / 2150 Balance -1999 / Lab / Micro Data 06/14/24 05:32 06/14/24 05:37 Labs: Laboratory Results - last 24 hr 06/13/24 19:40: WBC 15.4 H, RBC 5.84 H, Hgb 16.1 H, Hct 53.3 H, MCV 91.3, MCH 27.6, MCHC 30.2 L, RDW Std Deviation 50.9 H, RDW Coeff of Ryan 15.3 H, Plt Count 231, MPV 9.4, Immature Gran % (Auto) 0.300, Neut % (Auto) 40.5 L, Lymph % (Auto)53.9 H, Morehouse % (Auto) 4.3, Eos % (Auto) 0.7, Baso % (Auto) 0.3, Absolute Neuts (auto) 6.2, Absolute Lymphs (auto) 8.27 H, Nucleated RBC % 0, Atypical Lymphocytes 2+, Reactive Lymphocytes 1+, D-Dimer Quant (PE/DVT) 1.63 H*, Sodium 141, Potassium 4.2, Chloride 104, Carbon Dioxide 26.5, Anion Gap 10, BUN 28 H, Creatinine 1.14, Estim Creat Clear Calc 61.75, Est GFR (MDRD) Non-Af 49 L, BUN/Creatinine Ratio 24.6 H, Glucose 154 H, Lactic Acid 1.4, Calcium 9.1, Magnesium 1.6, Troponin T High Sens 34 H, [place] [address] H 06/13/24 21:47: Troponin T Hi Sens 2 Hr 45 H, Urine Color Yellow, Urine Clarity Sl. Cloudy, Urine pH 6.0, Ur Specific Marathon 1.015, Urine Protein 100 H, Urine Glucose (UA) 1000 H, Urine Ketones Negative, Urine Occult Blood 25 H, Urine Nitrite Positive H, Urine Bilirubin Negative, Urine Urobilinogen Normal, Ur Leukocyte Esterase 500 H, Urine RBC 0-5 SEEN, Urine WBC >100 SEEN, Ur Squamous Epith Cells 0-5 SEEN, Urine Bacteria 2+, Urine Mucus 0 SEEN, Urine Yeast 1+ 06/14/24 00:23: Troponin T Hi Sens 4Hr 51 H, Procalcitonin 0.06 06/14/24 03:02: POC Glucose 218 H 06/14/24 05:32: WBC 6.9, RBC 5.64 H, Hgb 15.5 H, Hct 52.5 H, MCV 93.1, MCH 27.5,MCHC 29.5 L, RDW Std Deviation 52.0 H, RDW Coeff of Ryan 15.1 H, Plt Count 101 L,MPV 9.4, Immature Gran % (Auto) 0.300, Neut % (Auto) 85.8 H, Lymph % (Auto) 13.2L, Morehouse % (Auto) 0.7, Eos % (Auto) 0.0, Baso % (Auto) 0.0, Absolute Neuts (auto)5.9, Absolute Lymphs (auto) 0.91, Nucleated RBC % 0 06/14/24 05:37: Sodium 140, Potassium 4.8, Chloride 105, Carbon Dioxide 19.3 L, Anion Gap 16 H, BUN 32 H, Creatinine 1.41 H, Estim Creat Clear Calc 53.62, Est GFR (MDRD) Non-Af 38 L, BUN/Creatinine Ratio 22.6 H, Glucose 221 H, Calcium 9.0,Total Bilirubin 0.41, AST 32, ALT 19, Alkaline Phosphatase 107 H, Total Protein 5.9, Albumin 3.2 L, Globulin 2.7, Albumin/Globulin Ratio 1.2, Triglycerides 65, Cholesterol 104, LDL Cholesterol, Calc 56, VLDL Cholesterol 13, HDL Cholesterol 35 L, Cholesterol/HDL Ratio 3.01, TSH 1.690, Free T4 1.30 06/14/24 06:17: POC Glucose 204 H Micro: Microbiology 06/14/24 02:45 Urine Catheter - Hill Legionella Antigen - Final 06/14/24 02:45 Urine Catheter - Hill Streptococcus pneumoniae Antigen (M - Final 06/13/24 22:55 Mucosa - Nasopharyngeal Respiratory Panel (PCR) - Final 06/13/24 19:55 Mucosa - Nose SARS-CoV-2, Influenza & RSV (PCR) - Final ABG Data ABG results: ABG 06/13/24 06/14/24 22:00 03:22 Specimen Type ART ART Sample Site L Radial R Radial pH 7.29 L 7.30 L Bicarbonate Actual 28.9 H 29.9 H Total CO2 31 32 Base Excess 2 4 H O2 Saturation 94 L 92 L O2 % 40.0 30.0 ABG pCO2 60.6 H 60.2 H ABG pO2 81 70 L Shirin Test Positive Positive Respiration Rate 12 12 O2 Delivery Device BiPAP BiPAP Vent Mode Not entered Not entered POC PEEP 10 Peak Inspir Pressure 20 Clinical Comments 20/10 cmH2O Radiography Diagnostic Testing: Radiology Impression Chest X-Ray 06/13/24 21:05 IMPRESSION: Marked cardiomegaly with right perihilar airspace opacities, may represent congestion/edema versus infection. Small left pleural effusion. Reading Location: [facility] Venous Duplex 06/13/24 21:55 IMPRESSION: No deep venous thrombosis identified in the extremity. Reading Location: [facility] Physical Exam Narrative Seen and examined Patient was admitted with shortness of breath. Earlier her BiPAP was not working for last 3 to 4 weeks. No fever. Feels chest congestion, coughing up mucus. No fever Physical exam General: Alert, Oriented x3, Cooperative, super morbid obesity: BMI 63.3 kg/m? HEENT: Short and wide neck atraumatic, PERRLA, EOMI, Normocephalic Oral: Deep oropharyngeal strength not visualized Neck: Supple, No JVD, Negative Carotid Bruits Chest wall/Lungs: Air entry diminished in bilateral lung bases. Mild bilateralbasal wheezing/crepitations Cardiovascular: Low intensity heart sounds Rally from morbid obesity. No M/G/R Abdomen: Bowel Sounds Present, Soft, Non Tender, Non-Distended : No dysuria. No renal angle tenderness. No suprapubic tenderness. Extremities: Bilateral pedal edema 3+ edema, Capillary Refill Less than 3 Seconds Skin: No rashes, No breakdown Musculoskeletal: No Tenderness to Palpation of Joints or Extremities ROM decreased. Neurological: Cranial nerves II-XII grossly intact, DTR 2+/4. No acute focal neurological deficit. Psych/Mental Status: Flat affect Assessment & Plan Assessment/Plan (1) Acute hypoxic respiratory failure: PLAN: Plan The patient is an 78 y/o F was brought to ED by EMS for shortness of breath and hypoxia, pulse ox 70% on room air for 1 day. Not on oxygen at baseline. Patient had slight nonproductive cough, mild congestion and rhinorrhea. No fever #1. Acute Hypoxic Respiratory Failure secondary to Possible RLL Infilrtrate/Community Acquired PNA with Acute Bronchospasms in addition to Possible Acute Decompensated HF unclear type and classification: Patient denies chest pain. Triple PCR for SARS-CoV-2, flu and RSV are negative. Respiratory panel and urinary antigens are negative. Leukocytosis resolved. Chest x-ray reviewed and shows unturned ventilation, cardiomegaly suggestive of pulmonary congestion/edema. ABG 7.30/60/70s on BiPAP 20/10, RR 12 at 30% FiO2. Bicarb reported in BMP sincelong as it suddenly dropped from 26.5-19.3 but in ABGs about 31-32. Therefore mainly seems chronic respiratory acidosis Patient started on IV ceftriaxone and azithromycin. Empirically on IV Solu- Medrol. Patient is being managed on scheduled bronchodilator, IV Solu-Medrol, Mucinex, incentive spirometry and Pep. #2. Chronic Kidney Disease Stage IIIA: Admission BUN/Cr 28/1.14, GFR 49, baseline renal function unfortunately remote with last noted 11/22/2016 creatinine 0.98, 06/12: BUN/creatinine 32/1.41. HCTZ discontinued. Losartan dose decreased to 50 mg daily. Monitor kidney function. #3. Hypertension: Continue home regimen including metoprolol, amlodipine, losartan, hydrochlorothiazide, pulse dose with IV lasix as noted above, PRN hydralazine. /:HCTZ discontinued. Losartan dose decreased to 50 mg daily. #4. Hyperlipidemia: continue patient statin therapy. FLP LDL 56, HDL 35. #5. Hypothyroidism: continue patient home levothyroxine regimen. TSH/FT4 1.690and 1.30 respectively; normal. #6. Diabetes mellitus type II: Hold oral home regimen, continue home insulin regimen, ADA diet, accu checks w/ ISS. #7. Morbid Obesity/significantly chronically limited mobility normally using predominantly wheelchair: Weight loss and lifestyle changes encouraged, nutrition consulted. #8. Allergic rhinitis: continue patient home fexofenadine regimen. #9. GERD: continue patient on PPI. #10. JAYA, hypoventilation syndrome: Complicates presentation, normally using CPAP nightly, given current presentation will continue with BiPAP. Transition once appropriate. #11. DVT prophylaxis: Chemoprophylactic dosing of Lovenox pending duplex ultrasound. Given inability to fit in the scanner at this point pending bilateral lower extremity duplex ultrasounds and if there is no obvious clot in her legs then lower suspicion for anything in her lungs but if any concerning findings in the legs then certainly would transition to heparin drip at that point. #12. CODE status: Patient NICOLE is her daughter and living will is currently inplace. Discussed CODE status at length including difference between FULL code, DNR-CCA and DNR-CC status. Following discussions about the differences in these status, requested Full Code status. Charges/Coding Visit Charges Inpatient E&M: 71921 Subs Hosp L2 06/14/24 1239 <Electronically signed by Azam Montgomery MD> Cosigner Signature (if applicable): CC: ~ Signed [facility] Work Phone: 1(644) 905-176904-03-2025 Progress note [facility] Medical Records Department [address] [place] [address] Progress Note - Hospitalist 06/14/24 0959 MR#: [id number] Acct: [id number] Name: TOD HUNT Rep #:[id number] : 1945 78 From: Azam Alarcon PCP: Dr. Socrates Spangler MD Status:ADM I N Location: [place] [address] Reason for Visit Reason for Visit: Diagnoses Acute respiratory failure with hypoxia (06/13/24) Objective Data Objective Data Vital Signs: Vital Signs Temp Pulse Resp BP Pulse Ox O2 Del Method O2 Flow Rate 98.0 F 71 18 122/55 H 97 Nasal Cannula 4 06/14/24 09:34 06/14/24 09:34 06/14/24 09:34 06/14/24 09:34 06/14/24 09:34 06/14/24 09:34 06/14/24 09:34 FiO2 30 06/14/24 03:15 Oxygen Flow Rate (L/min) 4 Oxygen Delivery Method Nasal Cannula Weight: 392 lb 3.237 oz Body Mass Index (BMI) 63.3 Intake & Output: Intake and Output for Last 24 Hours 06/12/24 06/13/24 06/14/24 23:59 23:59 23:59 Intake Total 150 / 150 Output Total 2150 / 2150 Balance -1999 / Lab / Micro Data 06/14/24 05:32 06/14/24 05:37 Labs: Laboratory Results - last 24 hr 06/13/24 19:40: WBC 15.4 H, RBC 5.84 H, Hgb 16.1 H, Hct 53.3 H, MCV 91.3, MCH 27.6, MCHC 30.2 L, RDW Std Deviation 50.9 H, RDW Coeff of Ryan 15.3 H, Plt Count 231, MPV 9.4, Immature Gran % (Auto) 0.300, Neut % (Auto) 40.5 L, Lymph % (Auto)53.9 H, Morehouse % (Auto) 4.3, Eos % (Auto) 0.7, Baso % (Auto) 0.3, Absolute Neuts (auto) 6.2, Absolute Lymphs (auto) 8.27 H, Nucleated RBC % 0, Atypical Lymphocytes2+, Reactive Lymphocytes 1+, D-Dimer Quant (PE/DVT) 1.63 H*, Sodium 141, Potassium 4.2, Chloride 104, Carbon Dioxide 26.5, Anion Gap 10, BUN 28 H, Creatinine 1.14, Estim Creat Clear Calc 61.75, Est GFR (MDRD) Non-Af 49 L, BUN/Creatinine Ratio 24.6 H, Glucose 154 H, Lactic Acid 1.4, Calcium 9.1, Magn esium 1.6, Troponin T High Sens 34 H, [place] [address] H 06/13/24 21:47: Troponin T Hi Sens 2 Hr 45 H, Urine Color Yellow, Urine Clarity Sl. Cloudy, Urine pH 6.0, Ur Specific [place] 1.015, Urine Protein 100 H, Urine Glucose (UA) 1000 H, Urine Ketones Negative, Urine Occult Blood 25 H, Urine Nitrite Positive H, Urine Bilirubin Negative, Urine Urobilinogen Normal, Ur Leukocyte Esterase 500 H, Urine RBC 0-5 SEEN, Urine WBC >100 SEEN, Ur Squamous EpithCells 0-5 SEEN, Urine Bacteria 2+, Urine Mucus 0 SEEN, Urine Yeast 1+ 06/14/24 00:23: Troponin T Hi Sens 4Hr 51 H, Procalcitonin 0.06 06/14/24 03:02: POC Glucose 218 H 06/14/24 05:32: WBC 6.9, RBC 5.64 H, Hgb 15.5 H, Hct 52.5 H, MCV 93.1, MCH 27.5,MCHC 29.5 L, RDW Std Deviation 52.0 H, RDW Coeff of Ryan 15.1 H, Plt Count 101 L,MPV 9.4, Immature Gran % (Auto) 0.300, Neut % (Auto) 85.8 H, Lymph % (Auto) 13.2L, Morehouse % (Auto) 0.7, Eos % (Auto) 0.0, Baso % (Auto) 0.0, Absolute Neuts (auto)5.9, Absolute Lymphs (auto) 0.91, Nucleated RBC % 0 06/14/24 05:37: Sodium 140, Potassium 4.8, Chloride 105, Carbon Dioxide 19.3 L, Anion Gap 16 H, BUN32 H, Creatinine 1.41 H, Estim Creat Clear Calc 53.62, Est GFR (MDRD) Non-Af 38 L, BUN/Creatinine Ratio 22.6 H, Glucose 221 H, Calcium 9.0,Total Bilirubin 0.41, AST 32, ALT 19, Alkaline Phosphatase 107 H, Total Protein 5.9, Albumin 3.2 L, Globulin 2.7, Albumin/Globulin Ratio 1.2, Triglycerides 65, Cholesterol 104, LDL Cholesterol, Calc 56, VLDL Cholesterol 13, HDL Cholesterol 35 L, Cholesterol/HDL Ratio 3.01, TSH 1.690, Free T4 1.30 06/14/24 06:17: POC Glucose 204 H Micro: Microbiology 06/14/24 02:45 Urine Catheter - Hill Legionella Antigen - Final 06/14/24 02:45 Urine Catheter - Hill Streptococcus pneumoniae Antigen (M - Final 06/13/24 22:55 Mucosa - Nasopharyngeal Respiratory Panel (PCR) - Final 06/13/24 19:55 Mucosa - Nose SARS-CoV-2, Influenza & RSV (PCR) - Final ABG Data ABG results: ABG 06/13/24 06/14/24 22:00 03:22 Specimen Type ART ART Sample Site L Radial R Radial pH 7.29 L 7.30 L Bicarbonate Actual 28.9 H 29.9 H Total CO2 31 32 Base Excess 2 4 H O2 Saturation 94 L 92 L O2 % 40.0 30.0 ABG pCO2 60.6 H 60.2 H ABG pO2 81 70 L Shirin Test Positive Positive Respiration Rate 12 12 O2 Delivery Device BiPAP BiPAP Vent Mode Not entered Not entered POC PEEP 10 Peak Inspir Pressure 20 Clinical Comments 20/10 cmH2O Radiography Diagnostic Testing: Radiology Impression Chest X-Ray 06/13/24 21:05 IMPRESSION: Marked cardiomegaly with right perihilar airspace opacities, may represent congestion/edema versus infection. Small left pleural effusion. [facility] Venous Duplex 06/13/24 21:55 IMPRESSION: No deep venous thrombosis identified in the extremity. Reading Location: [facility] Physical Exam Narrative Seen and examined Patient was admitted with shortness of breath. Earlier her BiPAP was not working for last 3 to 4 weeks. No fever. Feels chest congestion, coughing up mucus. No fever Physical exam General: Alert, Oriented x3, Cooperative, super morbid obesity: BMI 63.3 kg/m? HEENT: Short and wide neck atraumatic, PERRLA, EOMI, Normocephalic Oral: Deep oropharyngeal strength not visualized Neck: Supple, No JVD, Negative Carotid Bruits Chest wall/Lungs: Air entry diminished in bilateral lung bases. Mild bilateralbasal wheezing/crepitations Cardiovascular: Low intensity heart sounds Rally from morbid obesity. No M/G/R Abdomen: Bowel Sounds Present, Soft, Non Tender, Non-Distended : No dysuria. No renal angle tenderness. No suprapubic tenderness. Extremities: Bilateral pedal edema 3+ edema, Capillary Refill Less than 3 Seconds Skin: No rashes, No breakdown Musculoskeletal: No Tenderness to Palpation of Joints or Extremities ROM decreased. Neurological: Cranial nerves II-XII grossly intact, DTR 2+/4. No acute focal neurological deficit. Psych/Mental Status: Flat affect Assessment & Plan Assessment/Plan (1) Acute hypoxic respiratory failure: PLAN: Plan The patient is an 78 y/o F was brought to ED by EMS for shortness of breath and hypoxia, pulse ox 70% on room air for 1 day. Not on oxygen at baseline. Patient had slight nonproductive cough, mild congestion and rhinorrhea. No fever #1. Acute Hypoxic Respiratory Failure secondary to Possible RLL Infilrtrate/Community Acquired PNA with Acute Bronchospasms in addition to Possible Acute Decompensated HF unclear type and classification: Patient denies chest pain. Triple PCR for SARS-CoV-2, flu and RSV are negative. Respiratory panel and urinary antigens are negative. Leukocytosis resolved. Chest x-ray reviewed and shows unturnedventilation, cardiomegaly suggestive of pulmonary congestion/edema. ABG 7.30/60/70s on BiPAP 20/10, RR 12 at 30% FiO2. Bicarb reported in BMP sincelong as it suddenly dropped from 26.5-19.3 but in ABGs about 31-32. Therefore mainly seems chronic respiratory acidosis Patient started on IV ceftriaxone and azithromycin. Empirically on IV Solu- Medrol. Patient is beingmanaged on scheduled bronchodilator, IV Solu-Medrol, Mucinex, incentive spirometry and Pep. #2. Chronic Kidney Disease Stage IIIA: Admission BUN/Cr 28/1.14, GFR 49, baseline renal function unfortunately remote with last noted 11/22/2016 creatinine 0.98, 06/12: BUN/creatinine 32/1.41. HCTZ discontinued. Losartan dose decreased to 50 mg daily. Monitor kidney function. #3. Hypertension: Continue home regimen including metoprolol, amlodipine, losartan, hydrochlorothiazide, pulse dose with IV lasix as noted above, PRN hydralazine. /:HCTZ discontinued. Losartan dose decreased to 50 mg daily. #4. Hyperlipidemia: continue patient statin therapy. FLP LDL 56, HDL 35. #5. Hypothyroidism: continue patient home levothyroxine regimen. TSH/FT4 1.690and 1.30 respectively; normal. #6. Diabetes mellitus type II: Hold oral home regimen, continue home insulin regimen, ADA diet, accu checks w/ ISS. #7. Morbid Obesity/significantly chronically limited mobility normally using predominantly wheelchair: Weight loss and lifestyle changes encouraged, nutrition consulted. #8. Allergic rhinitis: continue patient home fexofenadine regimen. #9. GERD: continue patient on PPI. #10. JAYA, hypoventilation syndrome: Complicates presentation, normally using CPAP nightly, given current presentation will continue with BiPAP. Transition once appropriate. #11. DVT prophylaxis: Chemoprophylactic dosing of Lovenox pending duplex ultrasound. Given inability to fit in the scanner at this point pending bilateral lower extremity duplex ultrasounds and if there is no obvious clot in her legs then lower suspicion for anything in her lungs but if any concerning findings in the legs then certainly would transition to heparin drip at that point. #12. CODE status: Patient NICOLE is her daughter and living will is currently inplace. Discussed CODE status at length including difference between FULL code, DNR-CCA and DNR-CC status. Following discussions about the differences in these status, requested Full Code status. Charges/Coding Visit Charges Inpatient E&M: 22034 Subs Hosp L2 06/14/24 1239 Cosigner Signature (if applicable): CC: ~ Signed [facility]04-03-2025 History and physical note Author Estela Staton [facility] Note Date/Time June 13, 2024 10:5 5pm [facility] Medical Records Department [address] [place] [address] H&P Exam - Hospitalist 06/13/242126 MR#: [id number] Acct: [id number] Name: TOD HUNT Rep #:[id number] : 1945 78 From: Estela Staton MD PCP: Dr. Socrates Spangler MD Status:ADM I N Location: [place] [address] HPI - General General Date of Admission: 06/13/24 Date of Service: 06/13/24 Chief Complaint: Dyspnea. HPI Narrative The patient is an 78 y/o F w/ PMHx: CKD stage III unclear subtype per GFR trending, Morbid obesity with significantly chronically limited mobility normally using predominantly wheelchair/Hypoventilation Syndrome, HTN, HLD, JAYA on CPAP q HS w/ oxygen at night, Diabetes mellitus type II, Hypothyroidism, Allergic rhinitis, GERD who presents to the [facility] ED on 06/13/24 with history of dyspnea, onset on day of presentation prompting EMS call noted to be 70% upon their arrival with recent slight cough without marked production, mild congestion and rhinorrhea but no marked other URI type symptoms or productive sputum nor any recent fever/chills. She denies any recent surgery or prolonged travel. Workup in the ED included T97.4 Axillary, heart rate 85, BP 156/66, respiratory rate 22, initially 70% room air transition to BiPAP noted to be 95% on 50% FiO2, D-dimer 1.63, CBC with WBC 15.4, hemoglobin 16.1, MCV 91.3, platelet 231 with lymphocytosis, BMP with BUN/creatinine 28/1.14, GFR 49, glucose 154 otherwise unremarkable, initial troponin 34, BNP 11,672, lactic acid1.4, rapid SARS COVID/influenza/RSV negative, blood culture x 2 pending per ED, CXR with possible RLL infilrate, EKG with SR with 1 AVB with no acute evidence of ischemia. ED attempt to obtain CTPA however patient was unable to fit in the CT scanner. ED physician is obtaining BL LE duplex US and ABG per discussion which is pending upon evaluation request of patient. In the ED patient ministered Solu-Medrol 125 mg IV x 1, lasix 40 mg IV x 1, levaquin 750 mg IV x 1. [facility] Medical History CKD (chronic kidney disease), stage III Hypothyroidism Allergic rhinitis GERD (gastroesophageal reflux disease) Obstructive sleep apnea Hyperlipidemia Hypertension Type 2 diabetes mellitus Morbid obesity Home Medications ?Medication ?Instructions ?Recorded ?Last Taken ?Type Omeprazole [Prilosec] 40 mg PO DAILY 05/12/16 03/03/30 08:00 History amlodipine 5 mg tablet 5 mg PO DAILY 05/12/1605/12 08:00 History atorvastatin 20 mg tablet 20 mg PO QHS 05/12/16 22:00 History fexofenadine 180 mg tablet 180 mg PO DAILY 05/12/16 08:00 History hydrocortisone 2.5 % topical cream 1 applicatio topica l BID 05/12/16 Unknown History insulin glargine 100 unit/mL (3 50 units subcut QHS 05/11/16 22:00 History mL) subcutaneous pen (Lantus Solostar U-100 Insulin) levothyroxine 100 mcg tablet 100 mcg PO DAILY 05/12/16 05/12/16 06:00 History losartan 100 1 tab PO DAILY 05/12/16 03/0 03/30 08:00 History mg-hydrochlorothiazide 25 mg tablet (Hyzaar) metformin 500 mg 24 hr 1,000 mg PO BIDAC 05/12/16 0 05/12/16 08:00 History tablet,extended release (gastric retention) metoprolol tartrate 50 mg tablet 50 mg PO BID 05/12/16 05/12/16 08:00 History montelukast 10 mg tablet 10 mg PO QHS 05/12/16 22:00 History (Singulair) potassium chloride 10 mEq 10 meq PO BID 05/12/1605/12 08:00 History tablet,extended release(part/cryst) docusate sodium 100 mg capsule 200 mg (2 x 100 mg) PO BID 05/14/16 Unknown Rx (DOK) enoxaparin 40 mg/0.4 mL 40 mg (0.4 mL) subcut BID ## 28 05/14/16 Unknown Rx subcutaneous syringe insulin aspart U-100 100 unit/mL 0 units (0 mL) subcut ACHS 05/14/16 Unknown Rx (3 mL) subcutaneous pen (Novolog FlexPen U-100 Insulin aspart) magnesium oxide 400 mg (241.3 mg 400 mg PO BID ##60 Unknown Rx magnesium) tablet nystatin 100,000 unit/gram topical 1 applic topical BI D 05/14/16 Unknown Rx powder (Nyamyc) oxycodone 5 mg tablet 5 mg PO Q4H PRN PRN Moderate Pain 05/14/16 Unknown Rx (pain scale 4-5) ##20 Allergy/AdvReac Type Severity Reaction Status Date / Time lisinopril Allergy Unknown Verified 05/12/16 17:40 pollen extracts Allergy Itching Verified 05/12/16 17:40 Family History (Updated 06/13/24 @ 22:[address] Estela Staton MD) Mother Diabetes Heart disease Hypertension Father Diabetes Cancer Heart disease Alzheimer dementia Surgical History (Updated 06/13/24 @ 22:[address] Estela Staton MD) History of ankle surgery S/P cholecystectomy Social History household members: spouse Smoking Status: Never smoker alcohol intake: never substance use type: does not use ROS ROS Narrative Admission Review of Systems: CONSTITUTIONAL: No weight loss, fever, chills, + weakness or fatigue. HEENT: +Congestion, rhinorrhea. Eyes: No visual loss, blurred vision, double vision or yellow sclerae. Ears, Nose, Throat: No hearing loss, sneezing, sore throat. SKIN: No rash or itching, lesions, wounds except + chronic issues with intertrigo. CARDIOVASCULAR: No chest pain, chest pressure or chest discomfort, palpitations, edema, orthopnea, syncopal events. RESPIRATORY: + Mild cough, dyspnea, wheezing upon evaluation. No markedly productive sputum, hemoptysis. GASTROINTESTINAL: No anorexia, nausea, vomiting or diarrhea, abdominal pain, melena, BRBPR. GENITOURINARY: No dysuria, frequency, urgency or retention. NEUROLOGICAL: +Chronic debility with primarily wheelchair usage. No headache, dizziness, syncope, paralysis, ataxia, numbness or tingling in the extremities, focal weakness, change in bowel or bladder control, seizure. MUSCULOSKELETAL: + muscle, back pain, joint pain or stiffness. HEMATOLOGIC: No anemia, bleeding or bruising. LYMPHATICS: No enlarged nodes. No history of splenectomy. PSYCHIATRIC: No history of depression or anxiety. ENDOCRINOLOGIC: No reports of sweating, cold or heat intolerance. No polyuria or polydipsia. ALLERGIES: + History of allergic rhinitis. Vital Signs Vital Signs Vital Signs: 06/13/24 19:39 06/13/24 19:39 06/13/24 19:40 Temperature 97.4 F L Temperature Source Axillary Pulse Rate 85 96 Respiratory Rate 22 H 38 H Respiratory Effort Respiratory Depth Respiratory Pattern Tachypnea Blood Pressure 156/66 H Blood Pressure Mean 96 Pulse Ox 70 95 92 Oxygen Delivery Method Room Air Bi-pap Fraction of Inspired Oxygen (FIO2) 50 50 06/13/24 19:44 06/13/24 19:44 06/13/24 19:48 Temperature 97.4 F L Temperature Source Axillary Pulse Rate 80 Respiratory Rate 23 H Respiratory Effort Short of Breath Labored Accessory Muscle Use Respiratory Depth Shallow Respiratory Pattern Tachypnea Blood Pressure 156/66 H Blood Pressure Mean 96 Pulse Ox 97 96 Oxygen Delivery Method Bi-pap Bi-pap Airvo Fraction of Inspired Oxygen (FIO2) 50 50 50 06/13/24 19:53 06/13/24 20:35 06/13/24 21:00 Temperature 98.5 F Temperature Source Oral Pulse Rate 82 54 L 62 Respiratory Rate 26 H 18 18 Respiratory Effort Respiratory Depth Respiratory Pattern Tachypnea Normal Blood Pressure 121/70 H Blood Pressure Mean 87 Pulse Ox 96 Oxygen Delivery Method Bi-pap Fraction of Inspired Oxygen (FIO2) 40 06/13/24 21:15 Temperature Temperature Source Pulse Rate 646 H Respiratory Rate 24 H Respiratory Effort Respiratory Depth Respiratory Pattern Tachypnea Blood Pressure Blood Pressure Mean Pulse Ox 96 Oxygen Delivery Method Fraction of Inspired Oxygen (FIO2) 40 Weight Weight: 397 lb 4.368 oz Body Mass Index (BMI) 77.5 Physical Exam Narrative Physical Examination: General: Awake, alert, oriented x 3 and cooperative, laying in the ED bed, fatigued, BiPAP remains in place, no evidence of any distress at this time, appears improved Skin: Normal color, normal turgor, no icterus, no cyanosis except significant intertrigo in all skin folds, occasional stage ecchymoses, abrasion. HEENT: AT/NC, EOMI, PERRLA, mildly dry MM, BiPAP in place, given thickened neck and habitus difficult to discern carotid bruits as well as JVD. Lungs: Significant diminished, greater bases, persistent end expiratory wheeze, respiratory distress is lessened, maintained currently on BiPAP, no appreciated marked rhonchi or rales. Heart: Mildly bradycardic with regular rhythm; no gallop, rub audible. Abdomen: Soft, morbidly obese, NTTP, distant BS, difficult to discern distention and HSM given habitus. Extremities: No cyanosis, clubbing, or edema. Neurological: Patient awake, alert, oriented as noted, cognitive function intact; pupils equally reactive to light and accommodation, cranial nerves grossly normal, moving all 4 extremities, no focal deficits, strength severely globally decreased. Psychiatric: Affect appears flat, fatigued, no acute evidence of depressive or anxiety feelings. Results Lab / Micro Data 06/13/24 19:40 06/13/24 19:40 Labs: Laboratory Results - last 24 hr 06/13/24 19:40: WBC 15.4 H, RBC 5.84 H, Hgb 16.1 H, Hct 53.3 H, MCV 91.3, MCH 27.6, MCHC 30.2 L, RDW Std Deviation 50.9 H, RDW Coeff of Ryan 15.3 H, Plt Count 231, MPV 9.4, Immature Gran % (Auto) 0.300, Neut % (Auto) 40.5 L, Lymph % (Auto) 53.9 H, Morehouse % (Auto) 4.3, Eos % (Auto) 0.7, Baso % (Auto) 0.3, Absolute Neuts (auto) 6.2, Absolute Lymphs (auto) 8.27 H, Nucleated RBC % 0, Atypical Lymphocytes 2+, Reactive Lymphocytes 1+, D-Dimer Quant (PE/DVT) 1.63 H*, Sodium 141, Potassium 4.2, Chloride 104, Carbon Dioxide 26.5, Anion Gap 10, BUN 28 H, Creatinine 1.14, Estim Creat Clear Calc 61.75, Est GFR (MDRD) Non-Af 49 L, BUN/Creatinine Ratio 24.6 H, Glucose 154 H, Lactic Acid 1.4, Calcium 9.1, Troponin T High Sens 34 H, [place] [address] H Micro: Microbiology 06/13/24 19:55 Mucosa - Nose SARS-CoV-2, Influenza & RSV (PCR) - Final Assessment & Plan Assessment/Plan (1) Acute hypoxic respiratory failure: PLAN: Plan The patient is an 78 y/o F w/ PMHx: CKD stage III unclear subtype per GFR trending, Morbid obesity with significantly chronically limited mobility normally using predominantly wheelchair/Hypoventilation Syndrome, HTN, HLD, JAYA on CPAP q HS w/ oxygen at night, Diabetes mellitus type II, Hypothyroidism, Allergic rhinitis, GERD who presents to the [facility] ED on 06/13/24 with history of dyspnea, onset on day of presentation prompting EMS call noted to be 70% upon their arrival with recent slight cough without marked production, mild congestion and rhinorrhea but no marked other URI type symptoms or productive sputum nor any recent fever/chills. #1. Acute Hypoxic Respiratory Failure secondary to Possible RLL Infilrtrate/Community Acquired PNA with Acute Bronchospasms in addition to Possible Acute Decompensated HF, Unclear type with indeterminate cardiac enzyme: Patient administered IV lasix in addition to IV solumedrol and IV levaquin in the ED, will admit to PCU, maintain on BIPAP although already improving in the ED, maintain on cardiac telemetry, continue to obtain cardiac enzyme series, obtain serial EKGs, continue IV lasix diuresis, ATC duoneb therapies, PRN albuterol, maintain on IV Rocephin and Azithromycin, maintain on IV solumedrol given notable wheezing/bronchospasms suspected, HOB, IS parameters w/ pending sputum cultures, full respiratory viral panel, procalcitonin and urine antigens. If infectious workup unremarkable may opt to de-escalate antibiotic therapy. Certainly if workup seems more infectious than overload may de-escalate off Lasix therapy. #2. Chronic Kidney Disease Stage III, unclear subtype per GFR trending: Admission BUN/Cr 28/1.14, GFR 49, baseline renal function unfortunately remote with last noted 11/22/2016 creatinine 0.98, repeat BMP in AM for trending but also to elucidate current chronic stable level. #3. Hypertension: Continue home regimen including metoprolol, amlodipine, losartan, hydrochlorothiazide, pulse dose with IV lasix as noted above, PRN hydralazine. #4. Hyperlipidemia: We will continue patient statin therapy. FLP in AM. #5. Hypothyroidism: We will continue patient home levothyroxine regimen. TSH/FT4 in AM. #6. Diabetes mellitus type II: Hold oral home regimen, continue home insulin regimen, ADA diet, accu checks w/ ISS. #7. Morbid Obesity/significantly chronically limited mobility normally using predominantly wheelchair: Weight loss and lifestyle changes encouraged, nutrition consulted. #8. Allergic rhinitis: We will continue patient home fexofenadine regimen. #9. GERD: We will continue patient on PPI. #10. JAYA, hypoventilation syndrome: Complicates presentation, normally using CPAP nightly, given current presentation will continue with BiPAP. Transition once appropriate. #11. DVT prophylaxis: Chemoprophylactic dosing of Lovenox pending duplex ultrasound. Given inability to fit in the scanner at this point pending bilateral lower extremity duplex ultrasounds and if there is no obvious clot in her legs then lower suspicion for anything in her lungs but if any concerning findings in the legs then certainly would transition to heparin drip at that point. #12. CODE status: Patient NICOLE is her daughter and living will is currently in place. Discussed CODE status at length including difference between FULL code, DNR-CCA and DNR-CC status. Following discussions about the differences in these status, requested Full Code status. Advanced Care Planning Face to Face Time: 16 minutes. Charges/Coding Visit Charges Inpatient E&M: 71105 Init Hosp L3 Procedures Hospitalists Procedures: 63293 Advncd Care Plan 30 Min 06/13/24 2219 <Electronically signed by Estela Staton MD> Cosigner Signature (if applicable): CC: Dr. Estela Staton MD; Dr. Socrates Spangler MD~ Signed ADDENDUM by Dr. Estela Staton MD on 06/13/24 at 2255 Addendum Wet read duplex negative, final read pending. ED directed ABG with pH 7.29, bicarb 28.9, O2 saturation 94%, pCO2 60.6, O2 81. Will continue BiPAP and plan repeat ABG in the next couple hours to ensure improving. 06/13/242254<Electronically signed by Estela Staton MD> Cosigner Signature (if applicable): cc: Dr. Estela Staton MD; Dr. Socrates Spangler MD ~* Signed [facility] Work Phone: [phone]) 219-166804-03-2025 Discharge summary Author [facility] Note Date/Time June 13, 2024 10:5 4pm [facility] Medical Records Department [address] [place] [address] Emergency Department Summary 06/13/24 MR#: [id number] Acct: [id number] Name: TOD HUNT Rep #:[id number] : 1945 78 From: Gabriel Rucker DO PCP: Dr. Socrates Spangler MD Status:ADM I N Location: [place] [address] HPI History of Present Illness Chief Complaint: Shortness of Breath Detail of Chief Complaint: Shortness of breath Informant: patient and EMS Narrative Narrative: Patient presents to the emergency department complaint shortness of breath started today. Normally she wears CPAP at night for obstructive sleep apnea. On EMS arrival her O2 sat was in the 70s. Patient denies chest pain. She denies recent illness. She has had a slight cough. She has not had any fever. Denies recent travel or surgery. PFSH PFSH Medical History (Updated 06/13/24 @ 21:[address] Gabriel Rucker, DO) CKD (chronic kidney disease), stage III Hypothyroidism Allergic rhinitis GERD (gastroesophageal reflux disease) Obstructive sleep apnea Hyperlipidemia Hypertension Type 2 diabetes mellitus Morbid obesity Home Medications ?Medication ?Instructions ?Recorded ?Last Taken ?Type Omeprazole [Prilosec] 40 mg PO DAILY 05/12/16 03/0 03/30 08:00 History amlodipine 5 mg tablet 5 mg PO DAILY 05/12/1605/12 08:00 History atorvastatin 20 mg tablet 20 mg PO QHS 05/12/16 22:00 History fexofenadine 180 mg tablet 180 mg PO DAILY 05/12/16 08:00 History hydrocortisone 2.5 % topical cream 1 applicatio topica l BID 05/12/16 Unknown History insulin glargine 100 unit/mL (3 50 units subcut QHS 05/11/16 22:00 History mL) subcutaneous pen (Lantus Solostar U-100 Insulin) levothyroxine 100 mcg tablet 100 mcg PO DAILY 05/12/16 05/12/16 06:00 History losartan 100 1 tab PO DAILY 05/12/16 03/0 03/30 08:00 History mg-hydrochlorothiazide 25 mg tablet (Hyzaar) metformin 500 mg 24 hr 1,000 mg PO BIDAC 05/12/16 0 05/12/16 08:00 History tablet,extended release (gastric retention) metoprolol tartrate 50 mg tablet 50 mg PO BID 05/12/16 05/12/16 08:00 History montelukast 10 mg tablet 10 mg PO QHS 05/12/16 22:00 History (Singulair) potassium chloride 10 mEq 10 meq PO BID 05/12/1605/12 08:00 History tablet,extended release(part/cryst) docusate sodium 100 mg capsule 200 mg (2 x 100 mg) PO BID 05/14/16 Unknown Rx (DOK) enoxaparin 40 mg/0.4 mL 40 mg (0.4 mL) subcut BID ## 28 05/14/16 Unknown Rx subcutaneous syringe insulin aspart U-100 100 unit/mL 0 units (0 mL) subcut ACHS 05/14/16 Unknown Rx (3 mL) subcutaneous pen (Novolog FlexPen U-100 Insulin aspart) magnesium oxide 400 mg (241.3 mg 400 mg PO BID ##60 Unknown Rx magnesium) tablet nystatin 100,000 unit/gram topical 1 applic topical BI D 05/14/16 Unknown Rx powder (Nyamyc) oxycodone 5 mg tablet 5 mg PO Q4H PRN PRN Moderate Pain 05/14/16 Unknown Rx (pain scale 4-5) ##20 Allergy/AdvReac Type Severity Reaction Status Date / Time lisinopril Allergy Unknown Verified 05/12/16 17:40 pollen extracts Allergy Itching Verified 05/12/16 17:40 Surgical History (Updated 06/13/24 @ 20:[address] Estela Staton MD) S/P cholecystectomy Social History (Updated 06/13/24 @ 20:[address] Estela Staton MD) household members: spouse Smoking Status: Never smoker alcohol intake: never substance use type: does not use ROS ROS ED Review of Systems ROS Unobtainable: other Constitutional Constitutional ED: Reports lethargy; Denies chills, fever(s), sweats or weight loss Eyes Eyes: Denies blurry vision, change in vision or diplopia ENT ENT ED: Denies rhinorrhea or sore throat Cardiovascular Cardiovascular: Denies chest pain, orthopnea or racing heartbeat Respiratory/Chest Respiratory/Chest: Reports cough, dyspnea and dyspnea on exertion; Denies orthopnea or sputum Gastrointestinal Gastrointestinal: Denies abdominal pain, diarrhea, nausea or vomiting Genitourinary Genitourinary ED: Denies dysuria, hematuria or urinary frequency Musculoskeletal Musculoskeletal: Denies arthralgias, back pain, myalgias or neck pain Integumentary Denies abscess, Abrasions or rash Neurologic Neurologic: Denies headache(s) or weakness Psychiatric Psychiatric: Denies anxiety, depression or suicidal thoughts Endocrine Endocrinology: Denies polydipsia, polyphagia or polyuria Hematologic/Lymphatic Hematologic/Lymphatic: Denies easy bleeding, easy bruising or lymphadenopathy Allergic/Immunologic Allergic/Immunologic ED: Denies mouth swelling, tongue swelling or urticaria EXAM Physical Exam Const Vital Signs: 06/13/24 19:39 06/13/24 19:39 06/13/24 19:40 Temperature 97.4 F L Temperature Source Axillary Pulse Rate 85 96 Respiratory Rate 22 H 38 H Respiratory Effort Respiratory Depth Respiratory Pattern Tachypnea Blood Pressure 156/66 H Blood Pressure Mean 96 Pulse Ox 70 95 92 Oxygen Delivery Method Room Air Bi-pap Fraction of Inspired Oxygen (FIO2) 50 50 06/13/24 19:44 06/13/24 19:44 06/13/24 19:48 Temperature 97.4 F L Temperature Source Axillary Pulse Rate 80 Respiratory Rate 23 H Respiratory Effort Short of Breath Labored Accessory Muscle Use Respiratory Depth Shallow Respiratory Pattern Tachypnea Blood Pressure 156/66 H Blood Pressure Mean 96 Pulse Ox 97 96 Oxygen Delivery Method Bi-pap Bi-pap Airvo Fraction of Inspired Oxygen (FIO2) 50 50 50 06/13/24 19:53 06/13/24 20:35 06/13/24 21:00 Temperature 98.5 F Temperature Source Oral Pulse Rate 82 54 L 62 Respiratory Rate 26 H 18 18 Respiratory Effort Respiratory Depth Respiratory Pattern Tachypnea Normal Blood Pressure 121/70 H Blood Pressure Mean 87 Pulse Ox 96 Oxygen Delivery Method Bi-pap Fraction of Inspired Oxygen (FIO2) 40 06/13/24 21:15 Temperature Temperature Source Pulse Rate 646 H Respiratory Rate 24 H Respiratory Effort Respiratory Depth Respiratory Pattern Tachypnea Blood Pressure Blood Pressure Mean Pulse Ox 96 Oxygen Delivery Method Fraction of Inspired Oxygen (FIO2) 40 Positive well nourished and well developed General Appearance ED: well developed and NAD HEENT Reports TM's clear and moist mucous membranes normocephalic and atraumatic; Negative for trauma or tenderness Tympanic Membrane ED: Yes TM's clear Eyes PERRL and EOMs intact bilaterally General Eye ED: Negative for pale conjunctiva or scleral icterus Neck no lymphadenopathy, supple and no JVD General: Negative for tenderness Chest Wall inspection of chest normal and palpation of chest normal Chest: Negative for tenderness Resp No normal respiratory effort and No clear to auscultation bilaterally Resp Narrative: Patient with tachypnea. Expiratory wheezes throughout somewhat diminished bilaterally. Effort and Inspection: Negative for respiratory distress or pain with movement Auscultation: Negative for rhonchi, wheezes or diminished lung sounds Cardio regular rate, regular rhythm, S1 normal heart sound, S2 normal heart sound and no murmurs Peripheral Pulses: pulses 2+ throughout GI normal to inspection, nondistended, normoactive bowel sounds, soft to palpation, non-tender, non-distended and no masses Back/Spine no CVA tenderness and no thoracic nor lumbar tenderness Extremity normal to inspection Extremity Narrative: Trace edema both lower extremities General Extremety ED: Yes edema General Extremity: edema Neuro oriented x3, CN's II-XII intact bilaterally, no sensory deficits noted and gait normal Sensorium / Orientation: awake, alert, oriented to person, oriented to place and oriented to time Motor Exam: strength 5/5 throughout and strength abnormal Psych mental status grossly normal Skin no rashes or lesions noted and no wounds MDM MDM MDM Narrative Medical decision making narrative: Patient presents the emergency department from home with respiratory distress. Immediately she was placed on BiPAP. She tolerated this very well and respiratory status improved. IV line established. She had a CBC with differential that showed a white count of 15.4 with hemoglobin 16.1 and platelet count of 231. Chemistries unremarkable. D-dimer elevated 1.63. BUN 20 and creatinine 1.14. Troponin slightly elevated at 34 and [facility] [employer] [employer] CLERK was elevated 11,672. We attempted to do a CT scan of the chest to rule out PE however given patient's large body habitus and size she would not fit in the CT scanner. Will obtain venous Dopplers of both lower extremities. 1 view chest x-ray was obtained that showed on my interpretation infiltrate in the right lower lobe and some vascular congestion. She does have history of CHF. Patient was started on Levaquin IV. Patient also ordered Lasix IV. Case discussed with hospitalist will evaluate patient for admission Lab Data Attestation: I reviewed the patient's lab results. Labs: Laboratory Results - last 24 hr 06/13/24 19:40 WBC 15.4 H RBC 5.84 H Hgb 16.1 H Hct 53.3 H MCV 91.3 MCH 27.6 MCHC 30.2 L RDW Std Deviation 50.9 H RDW Coeff of Ryan 15.3 H Plt Count 231 MPV 9.4 Immature Gran % (Auto) 0.300 Neut % (Auto) 40.5 L Lymph % (Auto) 53.9 H Morehouse % (Auto) 4.3 Eos % (Auto) 0.7 Baso % (Auto) 0.3 Absolute Neuts (auto) 6.2 Absolute Lymphs (auto) 8.27 H Nucleated RBC % 0 Atypical Lymphocytes 2+ Reactive Lymphocytes 1+ D-Dimer Quant (PE/DVT) 1.63 H* Sodium 141 Potassium 4.2 Chloride 104 Carbon Dioxide 26.5 Anion Gap 10 BUN 28 H Creatinine 1.14 Estim Creat Clear Calc 61.75 Est GFR (MDRD) Non-Af 49 L BUN/Creatinine Ratio 24.6 H Glucose 154 H Lactic Acid 1.4 Calcium 9.1 Troponin T High [place]ens 34 [place] [address] H Radiography Diagnostic Testin view chest x-ray obtained interpreted by myself as right lower lobe infiltrate and cardiomegaly with vascular congestion. No pneumothorax. EKG Initial EKG: Attestation: I personally reviewed and interpreted this EKG as follows: Comments: Sinus rhythm with first-degree AV block with nonspecific ST changes Critical Care Time Critical Care Time: Yes Critical care time (excluding procedures): 30-74 minutes, 75-104 minutes, Including time spent:, Discussing w/Patient &/or Family/Computer Operations Analyst, Discussing w/Consultants, Arranging Admission or Transfer, Performing Direct Patient Care at Bedside and - (30 minutes) Discharge Plan Triage Chief Complaint: Shortness of Breath ED Provider: Gabriel Rucker Dx/Rx/DC Orders Clinical Impression: Respiratory failure, Hypoxia, Pneumonia, CHF (congestive heart failure) Prescriptions: No Action atorvastatin 20 MG tablet 20 mg PO QHS Patient Comments: cholesterol fexofenadine 180 MG tablet 180 mg PO DAILY Patient Comments: allergies amlodipine 5 MG tablet 5 mg PO DAILY Patient Comments: blood pressure levothyroxine 100 MCG tablet 100 mcg PO DAILY Patient Comments: thyroid losartan-hydrochlorothiazide [Hyzaar] 1 TAB tablet 1 tab PO DAILY Patient Comments: blood pressure metoprolol tartrate 50 MG tablet 50 mg PO BID Patient Comments: blood pressure montelukast [Singulair] 10 MG tablet 10 mg PO QHS Patient Comments: breathing potassium chloride 10 MEQ tablet 10 meq PO BID Patient Comments: supplement metformin 500 MG tablet,ER rozina.retention 24 hr 1,000 mg PO BIDAC insulin glargine [Lantus Solostar U-100 Insulin] 100 UNITS/ML insulin pen 50 units subcut QHS Patient Comments: diabetes Omeprazole [Prilosec] 40 MG capsule 40 mg PO DAILY Patient Comments: stomach hydrocortisone 1 APPLIC cream 1 applicatio topical BID docusate sodium [DOK] 100 MG capsule 200 mg PO BID 0RF nystatin [Nyamyc] 1 APPLIC bottle 1 applic topical BID 0RF oxycodone 5 MG tablet 5 mg PO Q4H PRN PRN (Reason: Moderate Pain (pain scale 4-5)) Qty: 20 0RF enoxaparin 40 MG/0.4 ML syringe 40 mg subcut BID Qty: 28 0RF insulin aspart U-100 [Novolog FlexPen U-100 Insulin] 100 UNITS/ML insulin pen 0 units subcut ACHS 0RF magnesium oxide 400 MG tablet 400 mg PO BID Qty: 60 0RF Primary Care Provider: Socrates Spangler Referrals: Socrates Spangler MD [Primary Care Provider] - Print Language: French Disposition Disposition: Acute Care Hospital [facility] What to do if you have Problems For any increased pain, shortness of breath, bleeding, nausea or vomiting, chestpain, or any unexpected problems, contact your Primary Care Provider. Call [facility] ([phone]) or report to the closest Emergency Room. Call 911 if necessary. 06/13/242253 <Electronically signed by Gabriel Rucker DO> Cosigner Signature (if applicable): CC: Dr. 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 June 13, 2024 9:28pm CHF (congestive heart failure) acute June 13, 2024 9:28pm Contusion of right great toe without damage to nail, initial encounter acute June 13, 2024 9:28pm Hypoxia acute June 13 9:28pm Pneumonia acute June 13 9:28pm Respiratory failure acute June 13, 2024 9:28pm [facility] Work Phone: 1(631) 606-493604-02-2025 Radiology Diagnostic study note [facility] Imaging Services [address] [place], [place] [address] Venous Duplex Imag/Gregg Extrem MR#: [id number] Acct: [id number] Name: TOD HUNT Rep #: [id number] : 1945 F 78 From: Sandro Yanezuwmarisa HOLMAN PCP: Dr. Socrates Spangler MD Status: ADM I N Study:Venous Duplex Imag/Gregg Extrem Date of E xam: 06/13/24 Exam# [id number] Ordering Dr: Zena Rucker DO PROCEDURE: VENOUS DUPLEX IMAG/GREGG EXTREM 06/13/2024 REASON FOR EXAM: F 78 y/o Swelling TECHNIQUE: Grayscale color flow and doppler analysis of the bilateral lower extremity. COMPARISON: None FINDINGS: There is no intraluminal echogenicity to suggest the presence of a deep venous thrombosis. Appropriate respiratory variation, augmentation and venous compression is noted. US/Venous Duplex Imag/Gregg Extrem IMPRESSION: No deep venous thrombosis identified in the extremity. [facility] CC: Dr. Socrates Spangler MD; Dr. Gabriel Rucker DO ~ Lead Refinery Supervisor: Signed [facility]04-02-2025 History and physical note [facility] Medical Records Department [address] [place] [address] H&P Exam - Hospitalist 06/13/242126 MR#: [id number] Acct: [id number] Name: TOD HUNT Rep #:[id number] : 1945 78 From: Estela Staton MD PCP: Dr. Socrates Spangler MD Status:ADM I N Location: [place] [address] HPI - General General Date of Admission: 06/13/24 Date of Service: 06/13/24 Chief Complaint: Dyspnea. HPI Narrative The patient is an 78 y/o F w/ PMHx: CKD stage III unclear subtype per GFR trending, Morbid obesity with significantly chronically limited mobility normally using predominantly wheelchair/Hypoventilation Syndrome, HTN, HLD, JAYA on CPAP q HS w/ oxygen at night, Diabetes mellitus type II, Hypothyroidism, Allergic rhinitis, GERD who presents to the [facility] ED on 06/13/24 with history of dyspnea, onset on day of presentation prompting EMS call noted to be 70% upon their arrival with recent slight cough without marked production, mild congestion and rhinorrhea but no marked other URI type symptoms or productive sputum nor any recent fever/chills. She denies any recent surgery or prolonged travel. Workup in the ED included T97.4 Axillary, heart rate 85, BP 156/66, respiratory rate 22, initially 70% room air transition to BiPAP noted to be 95% on 50% FiO2, D-dimer 1.63, CBC with WBC 15.4, hemoglobin 16.1, MCV 91.3, platelet 231 with lymphocytosis, BMP with BUN/creatinine 28/1.14, GFR 49, glucose 154 otherwise unremarkable, initial troponin 34, BNP 11,672, lactic acid1.4, rapid SARS COVID/influenza/RSV negative, blood culture x 2 pending per ED, CXR with possible RLL infilrate, EKG with SR with 1 AVB with no acute evidence of ischemia. ED attempt to obtain CTPA however patient was unable to fit in the CT scanner. ED physician is obtaining BL LE duplex US and ABG per discussion which is pending upon evaluation request of patient. In the ED patient ministered Solu-Medrol 125 mg IV x 1, lasix40 mg IV x 1, levaquin 750 mg IV x 1. [facility] Medical History CKD (chronic kidney disease), stage III Hypothyroidism Allergic rhinitis GERD (gastroesophageal reflux disease) Obstructive sleep apnea Hyperlipidemia Hypertension Type 2 diabetes mellitus Morbid obesity Home Medications ?Medication ?Instructions ?Recorded ?Last Taken ?Type Omeprazole [Prilosec] 40 mg PO DAILY 05/12/16 0303/30 08:00 History amlodipine 5 mg tablet 5 mg PO DAILY 05/12/1605/12 08:00 History atorvastatin 20 mg tablet 20 mg PO QHS 05/12/16 22:00 History fexofenadine 180 mg tablet 180 mg PO DAILY 05/12/16 08:00 History hydrocortisone 2.5 % topical cream 1 applicatio topica l BID 05/12/16 Unknown History insulin glargine 100 unit/mL (3 50 units subcut QHS 05/11/16 22:00 History mL) subcutaneous pen (Lantus Solostar U-100 Insulin) levothyroxine 100 mcg tablet 100 mcg PO DAILY 05/12/16 05/12/16 06:00 History losartan 100 1 tab PO DAILY 05/12/16 030 03/30 08:00 History mg-hydrochlorothiazide 25 mg tablet (Hyzaar) metformin 500 mg 24 hr 1,000 mg PO BIDAC 05/12/16 0 05/12/16 08:00 History tablet,extended release (gastric retention) metoprolol tartrate 50 mg tablet 50 mg PO BID 05/12/16 05/12/16 08:00 History montelukast 10 mg tablet 10 mg PO QHS 05/12/16 22:00 History (Singulair) potassium chloride 10 mEq 10 meq PO BID 05/12/1605/12 08:00 History tablet,extended release(part/cryst) docusate sodium 100 mg capsule 200 mg (2 x 100 mg) PO BID 05/14/16 Unknown Rx (DOK) enoxaparin 40 mg/0.4 mL 40 mg (0.4 mL) subcut BID ## 28 05/14/16 Unknown Rx subcutaneous syringe insulin aspart U-100 100 unit/mL 0 units (0 mL) subcut ACHS 05/14/16 Unknown Rx (3 mL) subcutaneous pen (Novolog FlexPen U-100 Insulin aspart) magnesium oxide 400 mg (241.3 mg 400 mg PO BID ##60 Unknown Rx magnesium) tablet nystatin 100,000 unit/gram topical 1 applic topical BI D 05/14/16 Unknown Rx powder (Nyamyc) oxycodone 5 mg tablet 5 mg PO Q4H PRN PRN Moderate Pain 05/14/16 Unknown Rx (pain scale 4-5) ##20 Allergy/AdvReac Type Severity Reaction Status Date / Time lisinopril Allergy Unknown Verified 05/12/16 17:40 pollen extracts Allergy Itching Verified 05/12/16 17:40 Family History (Updated 06/13/24 @ 22:[address] Estela Staton MD) Mother Diabetes Heart disease Hypertension Father Diabetes Cancer Heart disease Alzheimer dementia Surgical History (Updated 06/13/24 @ 22:[address] Estela Staton MD) History of ankle surgery S/P cholecystectomy Social History household members: spouse Smoking Status: Never smoker alcohol intake: never substance use type: does not use ROS ROS Narrative Admission Review of Systems: CONSTITUTIONAL: No weight loss, fever, chills, + weakness or fatigue. HEENT: +Congestion, rhinorrhea. Eyes: No visual loss, blurred vision, double vision or yellow sclerae. Ears, Nose, Throat: No hearing loss, sneezing, sore throat. SKIN: No rash or itching, lesions, wounds except + chronic issues with intertrigo. CARDIOVASCULAR: No chest pain, chest pressure or chest discomfort, palpitations, edema, orthopnea, syncopal events. RESPIRATORY: + Mild cough, dyspnea, wheezing upon evaluation. No markedly productive sputum, hemoptysis. GASTROINTESTINAL: No anorexia, nausea, vomiting or diarrhea, abdominal pain, melena, BRBPR. GENITOURINARY: No dysuria, frequency, urgency or retention. NEUROLOGICAL: +Chronic debility with primarily wheelchair usage. No headache, dizziness, syncope, paralysis, ataxia, numbness or tingling in the extremities, focal weakness, change in bowel or bladder control, seizure. MUSCULOSKELETAL: + muscle, back pain, joint pain or stiffness. HEMATOLOGIC: No anemia, bleeding or bruising. LYMPHATICS: No enlarged nodes. No history of splenectomy. PSYCHIATRIC: No history of depression or anxiety. ENDOCRINOLOGIC: No reports of sweating, cold or heat intolerance. No polyuria or polydipsia. ALLERGIES: + History of allergic rhinitis. Vital Signs Vital Signs Vital Signs: 06/13/24 19:39 06/13/24 19:39 06/13/24 19:40 Temperature 97.4 F L Temperature Source Axillary Pulse Rate 85 96 Respiratory Rate 22 H 38 H Respiratory Effort Respiratory Depth Respiratory Pattern Tachypnea Blood Pressure 156/66 H Blood Pressure Mean 96 Pulse Ox 70 95 92 Oxygen Delivery Method Room Air Bi-pap Fraction of Inspired Oxygen (FIO2) 50 50 06/13/24 19:44 06/13/24 19:44 06/13/24 19:48 Temperature 97.4 F L Temperature Source Axillary Pulse Rate 80 Respiratory Rate 23 H Respiratory Effort Short of Breath Labored Accessory Muscle Use Respiratory Depth Shallow Respiratory Pattern Tachypnea Blood Pressure 156/66 H Blood Pressure Mean 96 Pulse Ox 97 96 Oxygen Delivery Method Bi-pap Bi-pap Airvo Fraction of Inspired Oxygen (FIO2) 50 50 50 06/13/24 19:53 06/13/24 20:35 06/13/24 21:00 Temperature 98.5 F Temperature Source Oral Pulse Rate 82 54 L 62 Respiratory Rate 26 H 18 18 Respiratory Effort Respiratory Depth Respiratory Pattern Tachypnea Normal Blood Pressure 121/70 H Blood Pressure Mean 87 Pulse Ox 96 Oxygen Delivery Method Bi-pap Fraction of Inspired Oxygen (FIO2) 40 06/13/24 21:15 Temperature Temperature Source Pulse Rate 646 H Respiratory Rate 24 H Respiratory Effort Respiratory Depth Respiratory Pattern Tachypnea Blood Pressure Blood Pressure Mean Pulse Ox 96 Oxygen Delivery Method Fraction of Inspired Oxygen (FIO2) 40 Weight Weight: 397 lb 4.368 oz Body Mass Index (BMI) 77.5 Physical Exam Narrative Physical Examination: General: Awake, alert, oriented x 3 and cooperative, laying in the ED bed, fatigued, BiPAP remains in place, no evidence of any distress at this time, appears improved Skin: Normal color, normal turgor, no icterus, no cyanosis except significant intertrigo in all skin folds, occasional stage ecchymoses, abrasion. HEENT: AT/NC, EOMI, PERRLA, mildly dry MM, BiPAP in place, given thickened neck and habitus difficult to discern carotid bruits as well as JVD. Lungs: Significant diminished, greater bases, persistent end expiratory wheeze, respiratory distress is lessened, maintained currently on BiPAP, no appreciated marked rhonchi or rales. Heart: Mildly bradycardic with regular rhythm; no gallop, rub audible. Abdomen: Soft, morbidly obese, NTTP, distant BS, difficult to discern distention and HSM given habitus. Extremities: No cyanosis, clubbing, or edema. Neurological: Patient awake, alert, oriented as noted, cognitive function intact; pupils equally reactive to light and accommodation, cranial nerves grossly normal, moving all 4 extremities, no focaldeficits, strength severely globally decreased. Psychiatric: Affect appears flat, fatigued, no acute evidence of depressive or anxiety feelings. Results Lab / Micro Data 06/13/24 19:40 06/13/24 19:40 Labs: Laboratory Results - last 24 hr 06/13/24 19:40: WBC 15.4 H, RBC 5.84 H, Hgb 16.1 H, Hct 53.3 H, MCV 91.3, MCH 27.6, MCHC 30.2 L, RDW Std Deviation 50.9 H, RDW Coeff of Ryan 15.3 H, Plt Count 231, MPV 9.4, Immature Gran % (Auto) 0.300, Neut % (Auto) 40.5 L, Lymph % (Auto) 53.9 H, Morehouse % (Auto) 4.3, Eos % (Auto) 0.7, Baso % (Auto) 0.3, Absolute Neuts (auto) 6.2, Absolute Lymphs (auto) 8.27 H, Nucleated RBC % 0, Atypical Lymphocytes 2+, Reactive Lymphocytes 1+, D-Dimer Quant (PE/DVT) 1.63 H*, Sodium 141, Potassium 4.2, Chloride 104, Carbon Dioxide 26.5, Anion Gap 10, BUN 28 H, Creatinine 1.14, Estim Creat Clear Calc 61.75, Est GFR (MDRD) Non-Af 49 L, BUN/Creatinine Ratio 24.6 H, Glucose 154 H, Lactic Acid 1.4, Calcium 9.1, Tro ponin T High Sens 34 H, [place] [address] H Micro: Microbiology 06/13/24 19:55 Mucosa - Nose SARS-CoV-2, Influenza & RSV (PCR) - Final Assessment & Plan Assessment/Plan (1) Acute hypoxic respiratory failure: PLAN: Plan The patient is an 78 y/o F w/ PMHx: CKD stage III unclear subtype per GFR trending, Morbid obesity with significantly chronically limited mobility normally using predominantly wheelchair/Hypoventilation Syndrome, HTN, HLD, JAYA on CPAP q HS w/ oxygen at night, Diabetes mellitus type II, Hypothyroidism, Allergic rhinitis, GERD who presents to the [facility] ED on 06/13/24 with history of dyspnea, onset on day of presentation prompting EMS call noted to be 70% upon their arrival with recent slight cough without marked production, mild congestion and rhinorrhea but no marked other URI type symptoms or productive sputum nor any recent fever/chills. #1. Acute Hypoxic Respiratory Failure secondary to Possible RLL Infilrtrate/Community Acquired PNA with Acute Bronchospasms in addition to Possible Acute Decompensated HF, Unclear type with indeterminate cardiac enzyme: Patient administered IV lasix in addition to IV solumedrol and IV levaquin in the ED, will admit to PCU, maintain on BIPAP although already improving in the ED, maintain on cardiac telemetry, continue to obtain cardiac enzyme series, obtain serial EKGs, continue IV lasix diuresis, ATC duoneb therapies, PRN albuterol, maintain on IV Rocephin and Azithromycin, maintain on IV solumedrol given notable wheezing/bronchospasms suspected, HOB, IS parameters w/ pending sputum cultures, full respiratory viral panel, procalcitonin and urine antigens. If infectious workup unremarkablemay opt to de-escalate antibiotic therapy. Certainly if workup seems more infectious than overload may de-escalate off Lasix therapy. #2. Chronic Kidney Disease Stage III, unclear subtype per GFR trending: Admission BUN/Cr 28/1.14, GFR 49, baseline renal function unfortunately remote with last noted 11/22/2016 creatinine 0.98, repeat BMP in AM for trending but also to elucidate current chronic stable level. #3. Hypertension: Continue home regimen including metoprolol, amlodipine, losartan, hydrochlorothiazide, pulse dose with IV lasix as noted above, PRN hydralazine. #4. Hyperlipidemia: We will continue patient statin therapy. FLP in AM. #5. Hypothyroidism: We will continue patient home levothyroxine regimen. TSH/FT4 in AM. #6. Diabetes mellitus type II: Hold oral home regimen, continue home insulin regimen, ADA diet, accu checks w/ ISS. #7. Morbid Obesity/significantly chronically limited mobility normally using predominantly wheelchair: Weight loss and lifestyle changes encouraged, nutrition consulted. #8. Allergic rhinitis: We will continue patient home fexofenadine regimen. #9. GERD: We will continue patient on PPI. #10. JAYA, hypoventilation syndrome: Complicates presentation, normally using CPAP nightly, given current presentation will continue with BiPAP. Transition once appropriate. #11. DVT prophylaxis: Chemoprophylactic dosing of Lovenox pending duplex ultrasound. Given inability to fit in the scanner at this point pending bilateral lower extremity duplex ultrasounds and if there is no obvious clot in her legs then lower suspicion for anything in her lungs but if any concerning findings in the legs then certainly would transition to heparin drip at that point. #12. CODE status: Patient NICOLE is her daughter and living will is currently in place. Discussed CODE status at length including difference between FULL code, DNR-CCA and DNR-CC status. Following discussions about the differences in these status, requested Full Code status. Advanced Care Planning Face to Face Time: 16 minutes. Charges/Coding Visit Charges Inpatient E&M: 83510 Init Hosp L3 Procedures Hospitalists Procedures: 14970 Advncd Care Plan 30 Min 06/13/24 5689 Cosigner Signature (if applicable): CC: Dr. Estela Staton MD; Dr. Socrates Spangler MD~ Signed ADDENDUM by Dr. Estela Staton MD on 06/13/24 at 2255 Addendum Wet read duplex negative, final read pending. ED directed ABG with pH 7.29, bicarb 28.9, O2 saturation 94%, pCO2 60.6, O2 81. Will continue BiPAP and plan repeat ABG in the next couple hours to ensure improving. 06/13/24 2255 Cosigner Signature (if applicable): cc: Dr. Estela Staton MD; Dr. Socrates Spangler MD ~* Signed [facility]04-02-2025 Discharge summary [facility] Medical Records Department [address] [place] [address] Emergency Department Summary 06/13/24 MR#: [id number] Acct: [id number] Name: TOD HUNT Rep #:[id number] : 1945 78 From: Gabriel Rucker DO PCP: Dr. Socrates Spangler MD Status:ADM I N Location: [place] [address] HPI History of Present Illness Chief Complaint: Shortness of Breath Detail of Chief Complaint: Shortness of breath Informant: patient and EMS Narrative Narrative: Patient presents to the emergency department complaint shortness of breath started today. Normally she wears CPAP at night for obstructive sleep apnea. On EMS arrival her O2 sat was in the 70s. Patient denies chest pain. She denies recent illness. She has had a slight cough. She has not had any fever. Denies recent travel or surgery. [facility] Medical History (Updated 06/13/24 @ 21:[address] Gabriel Rucker DO) CKD (chronic kidney disease), stage III Hypothyroidism Allergic rhinitis GERD (gastroesophageal reflux disease) Obstructive sleep apnea Hyperlipidemia Hypertension Type 2 diabetes mellitus Morbid obesity Home Medications ?Medication ?Instructions ?Recorded ?Last Taken ?Type Omeprazole [Prilosec] 40 mg PO DAILY 05/12/16 03/03/30 08:00 History amlodipine 5 mg tablet 5 mg PO DAILY 05/12/1605/12 08:00 History atorvastatin 20 mg tablet 20 mg PO QHS 05/12/16 22:00 History fexofenadine 180 mg tablet 180 mg PO DAILY 05/12/16 08:00 History hydrocortisone 2.5 % topical cream 1 applicatio topica l BID 05/12/16 Unknown History insulin glargine 100 unit/mL (3 50 units subcut QHS 05/11/16 22:00 History mL) subcutaneous pen (Lantus Solostar U-100 Insulin) levothyroxine 100 mcg tablet 100 mcg PO DAILY 05/12/16 05/12/16 06:00 History losartan 100 1 tab PO DAILY 05/12/16 03/0 03/30 08:00 History mg-hydrochlorothiazide 25 mg tablet (Hyzaar) metformin 500 mg 24 hr 1,000 mg PO BIDAC 05/12/16 0 05/12/16 08:00 History tablet,extended release (gastric retention) metoprolol tartrate 50 mg tablet 50 mg PO BID 05/12/16 05/12/16 08:00 History montelukast 10 mg tablet 10 mg PO QHS 05/12/16 22:00 History (Singulair) potassium chloride 10 mEq 10 meq PO BID 05/12/1605/12 08:00 History tablet,extended release(part/cryst) docusate sodium 100 mg capsule 200 mg (2 x 100 mg) PO BID 05/14/16 Unknown Rx (DOK) enoxaparin 40 mg/0.4 mL 40 mg (0.4 mL) subcut BID ## 28 05/14/16 Unknown Rx subcutaneous syringe insulin aspart U-100 100 unit/mL 0 units (0 mL) subcut ACHS 05/14/16 Unknown Rx (3 mL) subcutaneous pen (Novolog FlexPen U-100 Insulin aspart) magnesium oxide 400 mg (241.3 mg 400 mg PO BID ##60 Unknown Rx magnesium) tablet nystatin 100,000 unit/gram topical 1 applic topical BI D 05/14/16 Unknown Rx powder (Nyamyc) oxycodone 5 mg tablet 5 mg PO Q4H PRN PRN Moderate Pain 05/14/16 Unknown Rx (pain scale 4-5) ##20 Allergy/AdvReac Type Severity Reaction Status Date / Time lisinopril Allergy Unknown Verified 05/12/16 17:40 pollen extracts Allergy Itching Verified 05/12/16 17:40 Surgical History (Updated 06/13/24 @ 20:[address] Estela Staton MD) S/P cholecystectomy Social History (Updated 06/13/24 @ 20:[address] Estela Staton MD) household members: spouse Smoking Status: Never smoker alcohol intake: never substance use type: does not use ROS ROS ED Review of Systems ROS Unobtainable: other Constitutional Constitutional ED: Reports lethargy; Denies chills, fever(s), sweats or weight loss Eyes Eyes: Denies blurry vision, change in vision or diplopia ENT ENT ED: Denies rhinorrhea or sore throat Cardiovascular Cardiovascular: Denies chest pain, orthopnea or racing heartbeat Respiratory/Chest Respiratory/Chest: Reports cough, dyspnea and dyspnea on exertion; Denies orthopnea or sputum Gastrointestinal Gastrointestinal: Denies abdominal pain, diarrhea, nausea or vomiting Genitourinary Genitourinary ED: Denies dysuria, hematuria or urinary frequency Musculoskeletal Musculoskeletal: Denies arthralgias, back pain, myalgias or neck pain Integumentary Denies abscess, Abrasions or rash Neurologic Neurologic: Denies headache(s) or weakness Psychiatric Psychiatric: Denies anxiety, depression or suicidal thoughts Endocrine Endocrinology: Denies polydipsia, polyphagia or polyuria Hematologic/Lymphatic Hematologic/Lymphatic: Denies easy bleeding, easy bruising or lymphadenopathy Allergic/Immunologic Allergic/Immunologic ED: Denies mouth swelling, tongue swelling or urticaria EXAM Physical Exam Const Vital Signs: 06/13/24 19:39 06/13/24 19:39 06/13/24 19:40 Temperature 97.4 F L Temperature Source Axillary Pulse Rate 85 96 Respiratory Rate 22 H 38 H Respiratory Effort Respiratory Depth Respiratory Pattern Tachypnea Blood Pressure 156/66 H Blood Pressure Mean 96 Pulse Ox 70 95 92 Oxygen Delivery Method Room Air Bi-pap Fraction of Inspired Oxygen (FIO2) 50 50 06/13/24 19:44 06/13/24 19:44 06/13/24 19:48 Temperature 97.4 F L Temperature Source Axillary Pulse Rate 80 Respiratory Rate 23 H Respiratory Effort Short of Breath Labored Accessory Muscle Use Respiratory Depth Shallow Respiratory Pattern Tachypnea Blood Pressure 156/66 H Blood Pressure Mean 96 Pulse Ox 97 96 Oxygen Delivery Method Bi-pap Bi-pap Airvo Fraction of Inspired Oxygen (FIO2) 50 50 50 06/13/24 19:53 06/13/24 20:35 06/13/24 21:00 Temperature 98.5 F Temperature Source Oral Pulse Rate 82 54 L 62 Respiratory Rate 26 H 18 18 Respiratory Effort Respiratory Depth Respiratory Pattern Tachypnea Normal Blood Pressure 121/70 H Blood Pressure Mean 87 Pulse Ox 96 Oxygen Delivery Method Bi-pap Fraction of Inspired Oxygen (FIO2) 40 06/13/24 21:15 Temperature Temperature Source Pulse Rate 646 H Respiratory Rate 24 H Respiratory Effort Respiratory Depth Respiratory Pattern Tachypnea Blood Pressure Blood Pressure Mean Pulse Ox 96 Oxygen Delivery Method Fraction of Inspired Oxygen (FIO2) 40 Positive well nourished and well developed General Appearance ED: well developed and NAD HEENT Reports TM's clear and moist mucous membranes normocephalic and atraumatic; Negative for trauma or tenderness Tympanic Membrane ED: Yes TM's clear Eyes PERRL and EOMs intact bilaterally General Eye ED: Negative for pale conjunctiva or scleral icterus Neck no lymphadenopathy, supple and no JVD General: Negative for tenderness Chest Wall inspection of chest normal and palpation of chest normal Chest: Negative for tenderness Resp No normal respiratory effort and No clear to auscultation bilaterally Resp Narrative: Patient with tachypnea. Expiratory wheezes throughout somewhat diminished bilaterally. Effort and Inspection: Negative for respiratory distress or pain with movement Auscultation: Negative for rhonchi, wheezes or diminished lung sounds Cardio regular rate, regular rhythm, S1 normal heart sound, S2 normal heart sound and no murmurs Peripheral Pulses: pulses 2+ throughout GI normal to inspection, nondistended, normoactive bowel sounds, soft to palpation, non-tender, non-distended and no masses Back/Spine no CVA tenderness and no thoracic nor lumbar tenderness Extremity normal to inspection Extremity Narrative: Trace edema both lower extremities General Extremety ED: Yes edema General Extremity: edema Neuro oriented x3, CN's II-XII intact bilaterally, no sensory deficits noted and gait normal Sensorium / Orientation: awake, alert, oriented to person, oriented to place and oriented to time Motor Exam: strength 5/5 throughout and strength abnormal Psych mental status grossly normal Skin no rashes or lesions noted and no wounds MDM MDM MDM Narrative Medical decision making narrative: Patient presents the emergency department from home with respiratory distress. Immediately she was placed on BiPAP. She tolerated this very well and respiratory status improved. IV line established. She had a CBC with differential that showed a white count of 15.4 with hemoglobin 16.1 and platelet count of 231. Chemistries unremarkable. D-dimer elevated 1.63. BUN 20 and creatinine 1.14. Troponin slightly elevated at 34 and [facility] [employer] was elevated 11,672. We attempted to do a CT scan of the chest to rule out PE however given patient's large body habitus and size she would not fit in the CT scanner.Will obtain venous Dopplers of both lower extremities. 1 view chest x-ray was obtained that showed on my interpretation infiltrate in the right lower lobe and some vascular congestion. She does have history of CHF. Patient was started on Levaquin IV. Patient also ordered Lasix IV. Case discussed with hospitalist will evaluate patient for admission Lab Data Attestation: I reviewed the patient's lab results. Labs: Laboratory Results - last 24 hr 06/13/24 19:40 WBC 15.4 H RBC 5.84 H Hgb 16.1 H Hct 53.3 H MCV 91.3 MCH 27.6 MCHC 30.2 L RDW Std Deviation 50.9 H RDW Coeff of Ryan 15.3 H Plt Count 231 MPV 9.4 Immature Gran % (Auto) 0.300 Neut % (Auto) 40.5 L Lymph % (Auto) 53.9 H Morehouse % (Auto) 4.3 Eos % (Auto) 0.7 Baso % (Auto) 0.3 Absolute Neuts (auto) 6.2 Absolute Lymphs (auto) 8.27 H Nucleated RBC % 0 Atypical Lymphocytes 2+ Reactive Lymphocytes 1+ D-Dimer Quant (PE/DVT) 1.63 H* Sodium 141 Potassium 4.2 Chloride 104 Carbon Dioxide 26.5 Anion Gap 10 BUN 28 H Creatinine 1.14 Estim Creat Clear Calc 61.75 Est GFR (MDRD) Non-Af 49 L BUN/Creatinine Ratio 24.6 H Glucose 154 H Lactic Acid 1.4 Calcium 9.1 Troponin T High Sens 34 [place] [address] H Radiography Diagnostic Testin view chest x-ray obtained interpreted by myself as right lower lobe infiltrate and cardiomegaly with vascular congestion. No pneumothorax. EKG Initial EKG: Attestation: I personally reviewed and interpreted this EKG as follows: Comments: Sinus rhythm with first-degree AV block with nonspecific ST changes Critical Care Time Critical Care Time: Yes Critical care time (excluding procedures): 30-74 minutes, 75-104 minutes, Including time spent:, Discussing w/Patient &/or Family/Computer Operations Analyst, Discussing w/Consultants, Arranging Admission or Transfer, Performing Direct Patient Care at Bedside and - (30 minutes) Discharge Plan Triage Chief Complaint: Shortness of Breath ED Provider: Gabriel Rucker Dx/Rx/DC Orders Clinical Impression: Respiratory failure, Hypoxia, Pneumonia, CHF (congestive heart failure) Prescriptions: No Action atorvastatin 20 MG tablet 20 mg PO QHS Patient Comments: cholesterol fexofenadine 180 MG tablet 180 mg PO DAILY Patient Comments: allergies amlodipine 5 MG tablet 5 mg PO DAILY Patient Comments: blood pressure levothyroxine 100 MCG tablet 100 mcg PO DAILY Patient Comments: thyroid losartan-hydrochlorothiazide [Hyzaar] 1 TAB tablet 1 tab PO DAILY Patient Comments: blood pressure metoprolol tartrate 50 MG tablet 50 mg PO BID Patient Comments: blood pressure montelukast [Singulair] 10 MG tablet 10 mg PO QHS Patient Comments: breathing potassium chloride 10 MEQ tablet 10 meq PO BID Patient Comments: supplement metformin 500 MG tablet,ER rozina.retention 24 hr 1,000 mg PO BIDAC insulin glargine [Lantus Solostar U-100 Insulin] 100 UNITS/ML insulin pen 50 units subcut QHS Patient Comments: diabetes Omeprazole [Prilosec] 40 MG capsule 40 mg PO DAILY Patient Comments: stomach hydrocortisone 1 APPLIC cream 1 applicatio topical BID docusate sodium [DOK] 100 MG capsule 200 mg PO BID 0RF nystatin [Nyamyc] 1 APPLIC bottle 1 applic topical BID 0RF oxycodone 5 MG tablet 5 mg PO Q4H PRN PRN (Reason: Moderate Pain (pain scale 4-5)) Qty: 20 0RF enoxaparin 40 MG/0.4 ML syringe 40 mg subcut BID Qty: 28 0RF insulin aspart U-100 [Novolog FlexPen U-100 Insulin] 100 UNITS/ML insulin pen 0 units subcut ACHS 0RF magnesium oxide 400 MG tablet 400 mg PO BID Qty: 60 0RF Primary Care Provider: Socrates Spangler Referrals: Socrates Spangler MD [Primary Care Provider] - Print Language: French Disposition Disposition: Acute Care Hospital [facility] What to do if you have Problems For any increased pain, shortness of breath, bleeding, nausea or vomiting, chestpain, or any unexpected problems, contact your Primary Care Provider. Call [facility] ([phone]) or report tothe closest Emergency Room. Call 911 if necessary. 06/13/244 Cosigner Signature (if applicable): CC: Dr. Socrates Spangler MD ~ Signed [facility]04-02-2025 Radiology Diagnostic study note [facility] Imaging Services [address] [place] [address] Chest 1 View (Portable) MR#: [id number] Acct: [id number] Name: TOD HUNT Rep #: [id number] : 1945 F 78 From: Sandro Medeiros DO PCP: Dr. Socrates Spangler MD Status: REG E R Study:Chest 1 View (Portable) Date of Exam: 06/13/24 Exam# [id number] Ordering Dr: Zena Rucker DO PROCEDURE: CHEST 1 VIEW (PORTABLE) 06/13/2024 REASON FOR EXAM: DYSPNEA TECHNIQUE: Frontal view of the chest. COMPARISON: None FINDINGS: Hardware: None Heart: There is severe cardiomegaly. Lungs: Right perihilar airspace opacities. No pneumothorax. Small left pleuraleffusion. Bones: The bones are unremarkable. Other: RAD/Chest 1 View (Portable) IMPRESSION: Marked cardiomegaly with right perihilar airspace opacities, may represent congestion/edema versus infection. Small left pleural effusion. Reading Location: [facility] CC: Dr. Socrates Spangler MD; Dr. Gabriel Rucker DO ~ Lead Refinery Supervisor: Signed [facility]04-02-2025 Discharge summary Author Gabriel Rucker [facility] Note Date/Time June 13, 2024 10:5 4pm [facility] Medical Records Department [address] [place] [address] Emergency Department Summary 06/13/24 MR#: [id number] Acct: [id number] Name: TOD HUNT Rep #:[id number] : 1945 78 From: Gabriel Rucker DO PCP: Dr. Socrates Spangler MD Status:ADM I N Location: [place] [address] HPI History of Present Illness Chief Complaint: Shortness of Breath Detail of Chief Complaint: Shortness of breath Informant: patient and EMS Narrative Narrative: Patient presents to the emergency department complaint shortness of breath started today. Normally she wears CPAP at night for obstructive sleep apnea. On EMS arrival her O2 sat was in the 70s. Patient denies chest pain. She denies recent illness. She has had a slight cough. She has not had any fever. Denies recent travel or surgery. [facility] Medical History (Updated 06/13/24 @ 21:[address] Gabriel Rucker, DO) CKD (chronic kidney disease), stage III Hypothyroidism Allergic rhinitis GERD (gastroesophageal reflux disease) Obstructive sleep apnea Hyperlipidemia Hypertension Type 2 diabetes mellitus Morbid obesity Home Medications ?Medication ?Instructions ?Recorded ?Last Taken ?Type Omeprazole [Prilosec] 40 mg PO DAILY 05/12/16 0303/30 08:00 History amlodipine 5 mg tablet 5 mg PO DAILY 05/12/1605/12 08:00 History atorvastatin 20 mg tablet 20 mg PO QHS 05/12/16 22:00 History fexofenadine 180 mg tablet 180 mg PO DAILY 05/12/16 08:00 History hydrocortisone 2.5 % topical cream 1 applicatio topica l BID 05/12/16 Unknown History insulin glargine 100 unit/mL (3 50 units subcut QHS 05/11/16 22:00 History mL) subcutaneous pen (Lantus Solostar U-100 Insulin) levothyroxine 100 mcg tablet 100 mcg PO DAILY 05/12/16 05/12/16 06:00 History losartan 100 1 tab PO DAILY 05/12/1603/30 08:00 History mg-hydrochlorothiazide 25 mg tablet (Hyzaar) metformin 500 mg 24 hr 1,000 mg PO BIDAC 05/12/16 0 05/12/16 08:00 History tablet,extended release (gastric retention) metoprolol tartrate 50 mg tablet 50 mg PO BID 05/12/16 05/12/16 08:00 History montelukast 10 mg tablet 10 mg PO QHS 05/12/16 22:00 History (Singulair) potassium chloride 10 mEq 10 meq PO BID 05/12/1605/12 08:00 History tablet,extended release(part/cryst) docusate sodium 100 mg capsule 200 mg (2 x 100 mg) PO BID 05/14/16 Unknown Rx (DOK) enoxaparin 40 mg/0.4 mL 40 mg (0.4 mL) subcut BID ## 28 05/14/16 Unknown Rx subcutaneous syringe insulin aspart U-100 100 unit/mL 0 units (0 mL) subcut ACHS 05/14/16 Unknown Rx (3 mL) subcutaneous pen (Novolog FlexPen U-100 Insulin aspart) magnesium oxide 400 mg (241.3 mg 400 mg PO BID ##60 Unknown Rx magnesium) tablet nystatin 100,000 unit/gram topical 1 applic topical BI D 05/14/16 Unknown Rx powder (Nyamyc) oxycodone 5 mg tablet 5 mg PO Q4H PRN PRN Moderate Pain 05/14/16 Unknown Rx (pain scale 4-5) ##20 Allergy/AdvReac Type Severity Reaction Status Date / Time lisinopril Allergy Unknown Verified 05/12/16 17:40 pollen extracts Allergy Itching Verified 05/12/16 17:40 Surgical History (Updated 06/13/24 @ 20:[address] Estela Staton MD) S/P cholecystectomy Social History (Updated 06/13/24 @ 20:[address] Estela Staton MD) household members: spouse Smoking Status: Never smoker alcohol intake: never substance use type: does not use ROS ROS ED Review of Systems ROS Unobtainable: other Constitutional Constitutional ED: Reports lethargy; Denies chills, fever(s), sweats or weight loss Eyes Eyes: Denies blurry vision, change in vision or diplopia ENT ENT ED: Denies rhinorrhea or sore throat Cardiovascular Cardiovascular: Denies chest pain, orthopnea or racing heartbeat Respiratory/Chest Respiratory/Chest: Reports cough, dyspnea and dyspnea on exertion; Denies orthopnea or sputum Gastrointestinal Gastrointestinal: Denies abdominal pain, diarrhea, nausea or vomiting Genitourinary Genitourinary ED: Denies dysuria, hematuria or urinary frequency Musculoskeletal Musculoskeletal: Denies arthralgias, back pain, myalgias or neck pain Integumentary Denies abscess, Abrasions or rash Neurologic Neurologic: Denies headache(s) or weakness Psychiatric Psychiatric: Denies anxiety, depression or suicidal thoughts Endocrine Endocrinology: Denies polydipsia, polyphagia or polyuria Hematologic/Lymphatic Hematologic/Lymphatic: Denies easy bleeding, easy bruising or lymphadenopathy Allergic/Immunologic Allergic/Immunologic ED: Denies mouth swelling, tongue swelling or urticaria EXAM Physical Exam Const Vital Signs: 06/13/24 19:39 06/13/24 19:39 06/13/24 19:40 Temperature 97.4 F L Temperature Source Axillary Pulse Rate 85 96 Respiratory Rate 22 H 38 H Respiratory Effort Respiratory Depth Respiratory Pattern Tachypnea Blood Pressure 156/66 H Blood Pressure Mean 96 Pulse Ox 70 95 92 Oxygen Delivery Method Room Air Bi-pap Fraction of Inspired Oxygen (FIO2) 50 50 06/13/24 19:44 06/13/24 19:44 06/13/24 19:48 Temperature 97.4 F L Temperature Source Axillary Pulse Rate 80 Respiratory Rate 23 H Respiratory Effort Short of Breath Labored Accessory Muscle Use Respiratory Depth Shallow Respiratory Pattern Tachypnea Blood Pressure 156/66 H Blood Pressure Mean 96 Pulse Ox 97 96 Oxygen Delivery Method Bi-pap Bi-pap Airvo Fraction of Inspired Oxygen (FIO2) 50 50 50 06/13/24 19:53 06/13/24 20:35 06/13/24 21:00 Temperature 98.5 F Temperature Source Oral Pulse Rate 82 54 L 62 Respiratory Rate 26 H 18 18 Respiratory Effort Respiratory Depth Respiratory Pattern Tachypnea Normal Blood Pressure 121/70 H Blood Pressure Mean 87 Pulse Ox 96 Oxygen Delivery Method Bi-pap Fraction of Inspired Oxygen (FIO2) 40 06/13/24 21:15 Temperature Temperature Source Pulse Rate 646 H Respiratory Rate 24 H Respiratory Effort Respiratory Depth Respiratory Pattern Tachypnea Blood Pressure Blood Pressure Mean Pulse Ox 96 Oxygen Delivery Method Fraction of Inspired Oxygen (FIO2) 40 Positive well nourished and well developed General Appearance ED: well developed and NAD HEENT Reports TM's clear and moist mucous membranes normocephalic and atraumatic; Negative for trauma or tenderness Tympanic Membrane ED: Yes TM's clear Eyes PERRL and EOMs intact bilaterally General Eye ED: Negative for pale conjunctiva or scleral icterus Neck no lymphadenopathy, supple and no JVD General: Negative for tenderness Chest Wall inspection of chest normal and palpation of chest normal Chest: Negative for tenderness Resp No normal respiratory effort and No clear to auscultation bilaterally Resp Narrative: Patient with tachypnea. Expiratory wheezes throughout somewhat diminished bilaterally. Effort and Inspection: Negative for respiratory distress or pain with movement Auscultation: Negative for rhonchi, wheezes or diminished lung sounds Cardio regular rate, regular rhythm, S1 normal heart sound, S2 normal heart sound and no murmurs Peripheral Pulses: pulses 2+ throughout GI normal to inspection, nondistended, normoactive bowel sounds, soft to palpation, non-tender, non-distended and no masses Back/Spine no CVA tenderness and no thoracic nor lumbar tenderness Extremity normal to inspection Extremity Narrative: Trace edema both lower extremities General Extremety ED: Yes edema General Extremity: edema Neuro oriented x3, CN's II-XII intact bilaterally, no sensory deficits noted and gait normal Sensorium / Orientation: awake, alert, oriented to person, oriented to place and oriented to time Motor Exam: strength 5/5 throughout and strength abnormal Psych mental status grossly normal Skin no rashes or lesions noted and no wounds MDM MDM MDM Narrative Medical decision making narrative: Patient presents the emergency department from home with respiratory distress. Immediately she was placed on BiPAP. She tolerated this very well and respiratory status improved. IV line established. She had a CBC with differential that showed a white count of 15.4 with hemoglobin 16.1 and platelet count of 231. Chemistries unremarkable. D-dimer elevated 1.63. BUN 20 and creatinine 1.14. Troponin slightly elevated at 34 and BT [facility] was elevated 11,672. We attempted to do a CT scan of the chest to rule out PE however given patient's large body habitus and size she would not fit in the CT scanner. Will obtain venous Dopplers of both lower extremities. 1 view chest x-ray was obtained that showed on my interpretation infiltrate in the right lower lobe and some vascular congestion. She does have history of CHF. Patient was started on Levaquin IV. Patient also ordered Lasix IV. Case discussed with hospitalist will evaluate patient for admission Lab Data Attestation: I reviewed the patient's lab results. Labs: Laboratory Results - last 24 hr 06/13/24 19:40 WBC 15.4 H RBC 5.84 H Hgb 16.1 H Hct 53.3 H MCV 91.3 MCH 27.6 MCHC 30.2 L RDW Std Deviation 50.9 H RDW Coeff of Ryan 15.3 H Plt Count 231 MPV 9.4 Immature Gran % (Auto) 0.300 Neut % (Auto) 40.5 L Lymph % (Auto) 53.9 H Morehouse % (Auto) 4.3 Eos % (Auto) 0.7 Baso % (Auto) 0.3 Absolute Neuts (auto) 6.2 Absolute Lymphs (auto) 8.27 H Nucleated RBC % 0 Atypical Lymphocytes 2+ Reactive Lymphocytes 1+ D-Dimer Quant (PE/DVT) 1.63 H* Sodium 141 Potassium 4.2 Chloride 104 Carbon Dioxide 26.5 Anion Gap 10 BUN 28 H Creatinine 1.14 Estim Creat Clear Calc 61.75 Est GFR (MDRD) Non-Af 49 L BUN/Creatinine Ratio 24.6 H Glucose 154 H Lactic Acid 1.4 Calcium 9.1 Troponin T High Sens 34 [place] [address] H Radiography Diagnostic Testin view chest x-ray obtained interpreted by myself as right lower lobe infiltrate and cardiomegaly with vascular congestion. No pneumothorax. EKG Initial EKG: Attestation: I personally reviewed and interpreted this EKG as follows: Comments: Sinus rhythm with first-degree AV block with nonspecific ST changes Critical Care Time Critical Care Time: Yes Critical care time (excluding procedures): 30-74 minutes, 75-104 minutes, Including time spent:, Discussing w/Patient &/or Family/Computer Operations Analyst, Discussing w/Consultants, Arranging Admission or Transfer, Performing Direct Patient Care at Bedside and - (30 minutes) Discharge Plan Triage Chief Complaint: Shortness of Breath ED Provider: Gabriel Rucker Dx/Rx/DC Orders Clinical Impression: Respiratory failure, Hypoxia, Pneumonia, CHF (congestive heart failure) Prescriptions: No Action atorvastatin 20 MG tablet 20 mg PO QHS Patient Comments: cholesterol fexofenadine 180 MG tablet 180 mg PO DAILY Patient Comments: allergies amlodipine 5 MG tablet 5 mg PO DAILY Patient Comments: blood pressure levothyroxine 100 MCG tablet 100 mcg PO DAILY Patient Comments: thyroid losartan-hydrochlorothiazide [Hyzaar] 1 TAB tablet 1 tab PO DAILY Patient Comments: blood pressure metoprolol tartrate 50 MG tablet 50 mg PO BID Patient Comments: blood pressure montelukast [Singulair] 10 MG tablet 10 mg PO QHS Patient Comments: breathing potassium chloride 10 MEQ tablet 10 meq PO BID Patient Comments: supplement metformin 500 MG tablet,ER rozina.retention 24 hr 1,000 mg PO BIDAC insulin glargine [Lantus Solostar U-100 Insulin] 100 UNITS/ML insulin pen 50 units subcut QHS Patient Comments: diabetes Omeprazole [Prilosec] 40 MG capsule 40 mg PO DAILY Patient Comments: stomach hydrocortisone 1 APPLIC cream 1 applicatio topical BID docusate sodium [DOK] 100 MG capsule 200 mg PO BID 0RF nystatin [Nyamyc] 1 APPLIC bottle 1 applic topical BID 0RF oxycodone 5 MG tablet 5 mg PO Q4H PRN PRN (Reason: Moderate Pain (pain scale 4-5)) Qty: 20 0RF enoxaparin 40 MG/0.4 ML syringe 40 mg subcut BID Qty: 28 0RF insulin aspart U-100 [Novolog FlexPen U-100 Insulin] 100 UNITS/ML insulin pen 0 units subcut ACHS 0RF magnesium oxide 400 MG tablet 400 mg PO BID Qty: 60 0RF Primary Care Provider: Socrates Spangler Referrals: Socrates Spangler MD [Primary Care Provider] - Print Language: French Disposition Disposition: Acute Care Hospital [facility] What to do if you have Problems For any increased pain, shortness of breath, bleeding, nausea or vomiting, chestpain, or any unexpected problems, contact your Primary Care Provider. Call [facility] ([phone]) or report to the closest Emergency Room. Call 911 if necessary. 06/13/242253 <Electronically signed by Gabriel Rucker DO> Cosigner Signature (if applicable): CC: Dr. Socrates Spangler MD ~ Signed [facility] Work Phone: Evaluation note* Diagnosis Onset Date Resolution Status Admit Date Acute hypoxic respiratory failure ac teller June 13, 2024 9:28pm CHF (congestive heart failure) acute June 13, 2024 9:28pm Hypoxia acute June 13 9:28pm Pneumonia acute June 13 9:28pm Respiratory failure acute June 13, 2024 9:28pm [facility] Work Phone: History and physical note Author Estela Staton [facility] Note Date/Time June 13, 2024 10:5 5pm [facility] Medical Records Department [address] [place] [address] H&P Exam - Hospitalist 06/13/242126 MR#: [id number] Acct: [id number] Name: TOD HUNT Rep #:[id number] : 1945 78 From: Estela Staton MD PCP: Dr. Socrates Spangler MD Status:ADM I N Location: [place] [address] HPI - General General Date of Admission: 06/13/24 Date of Service: 06/13/24 Chief Complaint: Dyspnea. HPI Narrative The patient is an 78 y/o F w/ PMHx: CKD stage III unclear subtype per GFR trending, Morbid obesity with significantly chronically limited mobility normally using predominantly wheelchair/Hypoventilation Syndrome, HTN, HLD, JAYA on CPAP q HS w/ oxygen at night, Diabetes mellitus type II, Hypothyroidism, Allergic rhinitis, GERD who presents to the [facility] ED on 06/13/24 with history of dyspnea, onset on day of presentation prompting EMS call noted to be 70% upon their arrival with recent slight cough without marked production, mild congestion and rhinorrhea but no marked other URI type symptoms or productive sputum nor any recent fever/chills. She denies any recent surgery or prolonged travel. Workup in the ED included T97.4 Axillary, heart rate 85, BP 156/66, respiratory rate 22, initially 70% room air transition to BiPAP noted to be 95% on 50% FiO2, D-dimer 1.63, CBC with WBC 15.4, hemoglobin 16.1, MCV 91.3, platelet 231 with lymphocytosis, BMP with BUN/creatinine 28/1.14, GFR 49, glucose 154 otherwise unremarkable, initial troponin 34, BNP 11,672, lactic acid1.4, rapid SARS COVID/influenza/RSV negative, blood culture x 2 pending per ED, CXR with possible RLL infilrate, EKG with SR with 1 AVB with no acute evidence of ischemia. ED attempt to obtain CTPA however patient was unable to fit in the CT scanner. ED physician is obtaining BL LE duplex US and ABG per discussion which is pending upon evaluation request of patient. In the ED patient ministered Solu-Medrol 125 mg IV x 1, lasix 40 mg IV x 1, levaquin 750 mg IV x 1. [facility] Medical History CKD (chronic kidney disease), stage III Hypothyroidism Allergic rhinitis GERD (gastroesophageal reflux disease) Obstructive sleep apnea Hyperlipidemia Hypertension Type 2 diabetes mellitus Morbid obesity Home Medications ?Medication ?Instructions ?Recorded ?Last Taken ?Type Omeprazole [Prilosec] 40 mg PO DAILY 05/12/16 03/0 03/30 08:00 History amlodipine 5 mg tablet 5 mg PO DAILY 05/12/1605/12 08:00 History atorvastatin 20 mg tablet 20 mg PO QHS 05/12/16 22:00 History fexofenadine 180 mg tablet 180 mg PO DAILY 05/12/16 08:00 History hydrocortisone 2.5 % topical cream 1 applicatio topica l BID 05/12/16 Unknown History insulin glargine 100 unit/mL (3 50 units subcut QHS 05/11/16 22:00 History mL) subcutaneous pen (Lantus Solostar U-100 Insulin) levothyroxine 100 mcg tablet 100 mcg PO DAILY 05/12/16 05/12/16 06:00 History losartan 100 1 tab PO DAILY 05/12/16 03/03/30 08:00 History mg-hydrochlorothiazide 25 mg tablet (Hyzaar) metformin 500 mg 24 hr 1,000 mg PO BIDAC 05/12/16 0 05/12/16 08:00 History tablet,extended release (gastric retention) metoprolol tartrate 50 mg tablet 50 mg PO BID 05/12/16 05/12/16 08:00 History montelukast 10 mg tablet 10 mg PO QHS 05/12/16 22:00 History (Singulair) potassium chloride 10 mEq 10 meq PO BID 05/12/1605/12 08:00 History tablet,extended release(part/cryst) docusate sodium 100 mg capsule 200 mg (2 x 100 mg) PO BID 05/14/16 Unknown Rx (DOK) enoxaparin 40 mg/0.4 mL 40 mg (0.4 mL) subcut BID ## 28 05/14/16 Unknown Rx subcutaneous syringe insulin aspart U-100 100 unit/mL 0 units (0 mL) subcut ACHS 05/14/16 Unknown Rx (3 mL) subcutaneous pen (Novolog FlexPen U-100 Insulin aspart) magnesium oxide 400 mg (241.3 mg 400 mg PO BID ##60 Unknown Rx magnesium) tablet nystatin 100,000 unit/gram topical 1 applic topical BI D 05/14/16 Unknown Rx powder (Nyamyc) oxycodone 5 mg tablet 5 mg PO Q4H PRN PRN Moderate Pain 05/14/16 Unknown Rx (pain scale 4-5) ##20 Allergy/AdvReac Type Severity Reaction Status Date / Time lisinopril Allergy Unknown Verified 05/12/16 17:40 pollen extracts Allergy Itching Verified 05/12/16 17:40 Family History (Updated 06/13/24 @ 22:[address] Estela Staton MD) Mother Diabetes Heart disease Hypertension Father Diabetes Cancer Heart disease Alzheimer dementia Surgical History (Updated 06/13/24 @ 22:[address] Estela Staton MD) History of ankle surgery S/P cholecystectomy Social History household members: spouse Smoking Status: Never smoker alcohol intake: never substance use type: does not use ROS ROS Narrative Admission Review of Systems: CONSTITUTIONAL: No weight loss, fever, chills, + weakness or fatigue. HEENT: +Congestion, rhinorrhea. Eyes: No visual loss, blurred vision, double vision or yellow sclerae. Ears, Nose, Throat: No hearing loss, sneezing, sore throat. SKIN: No rash or itching, lesions, wounds except + chronic issues with intertrigo. CARDIOVASCULAR: No chest pain, chest pressure or chest discomfort, palpitations, edema, orthopnea, syncopal events. RESPIRATORY: + Mild cough, dyspnea, wheezing upon evaluation. No markedly productive sputum, hemoptysis. GASTROINTESTINAL: No anorexia, nausea, vomiting or diarrhea, abdominal pain, melena, BRBPR. GENITOURINARY: No dysuria, frequency, urgency or retention. NEUROLOGICAL: +Chronic debility with primarily wheelchair usage. No headache, dizziness, syncope, paralysis, ataxia, numbness or tingling in the extremities, focal weakness, change in bowel or bladder control, seizure. MUSCULOSKELETAL: + muscle, back pain, joint pain or stiffness. HEMATOLOGIC: No anemia, bleeding or bruising. LYMPHATICS: No enlarged nodes. No history of splenectomy. PSYCHIATRIC: No history of depression or anxiety. ENDOCRINOLOGIC: No reports of sweating, cold or heat intolerance. No polyuria or polydipsia. ALLERGIES: + History of allergic rhinitis. Vital Signs Vital Signs Vital Signs: 06/13/24 19:39 06/13/24 19:39 06/13/24 19:40 Temperature 97.4 F L Temperature Source Axillary Pulse Rate 85 96 Respiratory Rate 22 H 38 H Respiratory Effort Respiratory Depth Respiratory Pattern Tachypnea Blood Pressure 156/66 H Blood Pressure Mean 96 Pulse Ox 70 95 92 Oxygen Delivery Method Room Air Bi-pap Fraction of Inspired Oxygen (FIO2) 50 50 06/13/24 19:44 06/13/24 19:44 06/13/24 19:48 Temperature 97.4 F L Temperature Source Axillary Pulse Rate 80 Respiratory Rate 23 H Respiratory Effort Short of Breath Labored Accessory Muscle Use Respiratory Depth Shallow Respiratory Pattern Tachypnea Blood Pressure 156/66 H Blood Pressure Mean 96 Pulse Ox 97 96 Oxygen Delivery Method Bi-pap Bi-pap Airvo Fraction of Inspired Oxygen (FIO2) 50 50 50 06/13/24 19:53 06/13/24 20:35 06/13/24 21:00 Temperature 98.5 F Temperature Source Oral Pulse Rate 82 54 L 62 Respiratory Rate 26 H 18 18 Respiratory Effort Respiratory Depth Respiratory Pattern Tachypnea Normal Blood Pressure 121/70 H Blood Pressure Mean 87 Pulse Ox 96 Oxygen Delivery Method Bi-pap Fraction of Inspired Oxygen (FIO2) 40 06/13/24 21:15 Temperature Temperature Source Pulse Rate 646 H Respiratory Rate 24 H Respiratory Effort Respiratory Depth Respiratory Pattern Tachypnea Blood Pressure Blood Pressure Mean Pulse Ox 96 Oxygen Delivery Method Fraction of Inspired Oxygen (FIO2) 40 Weight Weight: 397 lb 4.368 oz Body Mass Index (BMI) 77.5 Physical Exam Narrative Physical Examination: General: Awake, alert, oriented x 3 and cooperative, laying in the ED bed, fatigued, BiPAP remains in place, no evidence of any distress at this time, appears improved Skin: Normal color, normal turgor, no icterus, no cyanosis except significant intertrigo in all skin folds, occasional stage ecchymoses, abrasion. HEENT: AT/NC, EOMI, PERRLA, mildly dry MM, BiPAP in place, given thickened neck and habitus difficult to discern carotid bruits as well as JVD. Lungs: Significant diminished, greater bases, persistent end expiratory wheeze, respiratory distress is lessened, maintained currently on BiPAP, no appreciated marked rhonchi or rales. Heart: Mildly bradycardic with regular rhythm; no gallop, rub audible. Abdomen: Soft, morbidly obese, NTTP, distant BS, difficult to discern distention and HSM given habitus. Extremities: No cyanosis, clubbing, or edema. Neurological: Patient awake, alert, oriented as noted, cognitive function intact; pupils equally reactive to light and accommodation, cranial nerves grossly normal, moving all 4 extremities, no focal deficits, strength severely globally decreased. Psychiatric: Affect appears flat, fatigued, no acute evidence of depressive or anxiety feelings. Results Lab / Micro Data 06/13/24 19:40 06/13/24 19:40 Labs: Laboratory Results - last 24 hr 06/13/24 19:40: WBC 15.4 H, RBC 5.84 H, Hgb 16.1 H, Hct 53.3 H, MCV 91.3, MCH 27.6, MCHC 30.2 L, RDW Std Deviation 50.9 H, RDW Coeff of Ryan 15.3 H, Plt Count 231, MPV 9.4, Immature Gran % (Auto) 0.300, Neut % (Auto) 40.5 L, Lymph % (Auto) 53.9 H, Morehouse % (Auto) 4.3, Eos % (Auto) 0.7, Baso % (Auto) 0.3, Absolute Neuts (auto) 6.2, Absolute Lymphs (auto) 8.27 H, Nucleated RBC % 0, Atypical Lymphocytes 2+, Reactive Lymphocytes 1+, D-Dimer Quant (PE/DVT) 1.63 H*, Sodium 141, Potassium 4.2, Chloride 104, Carbon Dioxide 26.5, Anion Gap 10, BUN 28 H, Creatinine 1.14, Estim Creat Clear Calc 61.75, Est GFR (MDRD) Non-Af 49 L, BUN/Creatinine Ratio 24.6 H, Glucose 154 H, Lactic Acid 1.4, Calcium 9.1, Troponin T High Sens 34 H, [place] [address] H Micro: Microbiology 06/13/24 19:55 Mucosa - Nose SARS-CoV-2, Influenza & RSV (PCR) - Final Assessment & Plan Assessment/Plan (1) Acute hypoxic respiratory failure: PLAN: Plan The patient is an 78 y/o F w/ PMHx: CKD stage III unclear subtype per GFR trending, Morbid obesity with significantly chronically limited mobility normally using predominantly wheelchair/Hypoventilation Syndrome, HTN, HLD, JAYA on CPAP q HS w/ oxygen at night, Diabetes mellitus type II, Hypothyroidism, Allergic rhinitis, GERD who presents to the [facility] ED on 06/13/24 with history of dyspnea, onset on day of presentation prompting EMS call noted to be 70% upon their arrival with recent slight cough without marked production, mild congestion and rhinorrhea but no marked other URI type symptoms or productive sputum nor any recent fever/chills. #1. Acute Hypoxic Respiratory Failure secondary to Possible RLL Infilrtrate/Community Acquired PNA with Acute Bronchospasms in addition to Possible Acute Decompensated HF, Unclear type with indeterminate cardiac enzyme: Patient administered IV lasix in addition to IV solumedrol and IV levaquin in the ED, will admit to PCU, maintain on BIPAP although already improving in the ED, maintain on cardiac telemetry, continue to obtain cardiac enzyme series, obtain serial EKGs, continue IV lasix diuresis, ATC duoneb therapies, PRN albuterol, maintain on IV Rocephin and Azithromycin, maintain on IV solumedrol given notable wheezing/bronchospasms suspected, HOB, IS parameters w/ pending sputum cultures, full respiratory viral panel, procalcitonin and urine antigens. If infectious workup unremarkable may opt to de-escalate antibiotic therapy. Certainly if workup seems more infectious than overload may de-escalate off Lasix therapy. #2. Chronic Kidney Disease Stage III, unclear subtype per GFR trending: Admission BUN/Cr 28/1.14, GFR 49, baseline renal function unfortunately remote with last noted 11/22/2016 creatinine 0.98, repeat BMP in AM for trending but also to elucidate current chronic stable level. #3. Hypertension: Continue home regimen including metoprolol, amlodipine, losartan, hydrochlorothiazide, pulse dose with IV lasix as noted above, PRN hydralazine. #4. Hyperlipidemia: We will continue patient statin therapy. FLP in AM. #5. Hypothyroidism: We will continue patient home levothyroxine regimen. TSH/FT4 in AM. #6. Diabetes mellitus type II: Hold oral home regimen, continue home insulin regimen, ADA diet, accu checks w/ ISS. #7. Morbid Obesity/significantly chronically limited mobility normally using predominantly wheelchair: Weight loss and lifestyle changes encouraged, nutrition consulted. #8. Allergic rhinitis: We will continue patient home fexofenadine regimen. #9. GERD: We will continue patient on PPI. #10. JAYA, hypoventilation syndrome: Complicates presentation, normally using CPAP nightly, given current presentation will continue with BiPAP. Transition once appropriate. #11. DVT prophylaxis: Chemoprophylactic dosing of Lovenox pending duplex ultrasound. Given inability to fit in the scanner at this point pending bilateral lower extremity duplex ultrasounds and if there is no obvious clot in her legs then lower suspicion for anything in her lungs but if any concerning findings in the legs then certainly would transition to heparin drip at that point. #12. CODE status: Patient NICOLE is her daughter and living will is currently in place. Discussed CODE status at length including difference between FULL code, DNR-CCA and DNR-CC status. Following discussions about the differences in these status, requested Full Code status. Advanced Care Planning Face to Face Time: 16 minutes. Charges/Coding Visit Charges Inpatient E&M: 43651 Init Hosp L3 Procedures Hospitalists Procedures: 90860 Advncd Care Plan 30 Min 06/13/24 2219 <Electronically signed by Estela Staton MD> Cosigner Signature (if applicable): CC: Dr. Estela Staton MD; Dr. Socrates Spangler MD~ Signed ADDENDUM by Dr. Estela Staton MD on 06/13/24 at 2255 Addendum Wet read duplex negative, final read pending. ED directed ABG with pH 7.29, bicarb 28.9, O2 saturation 94%, pCO2 60.6, O2 81. Will continue BiPAP and plan repeat ABG in the next couple hours to ensure improving. 06/13/24 2255<Electronically signed by Estela Staton MD> Cosigner Signature (if applicable): cc: Dr. Estela Staton MD; Dr. Socrates Spangler MD ~* Signed [facility] Work Phone: Reason for referral (narrative)No reason for referral information availableWMercy Health [facility] Work Phone: Summary Purpose Family History No Family History Records Found Relationship Condition Age at Onset Recorded Date/T [place] mother Diabetes mellitus Unknown Cardiac disease Unknown Hypertension Unknown father Diabetes mellitus Unknown Malignant neoplasm Unknown Alzheimer's dementia Unknown Advance Directives No Advanced Directives Records Found Advance Directive Response Recorded Date/ Time Living Will Yes June 13, 2024 7:44pm Do you have a Healthcare Power of Beam Dyer Recessed Vat? Yes June 13, 2024 7:44pm Name of Medical Power of Beam Dyer Recessed Vat PT DAUGHTER June 13, 2024 7:44pm Advance Directive Response Recorded Date/ Time Living Will Yes June 14, 2024 12:17am Do you have a Healthcare Power of Beam Dyer Recessed Vat? Yes June 14, 2024 12:17am Name of Medical Power of Beam Dyer Recessed Vat PT DAUGHTER June 14, 2024 12:17am Chief Complaint and Reason for Visit Chief Complaint Admit Date sob June 13, 2024 9:27 pm RESP FAILURE, POSS PNA, POSS HF June d2024 9:28pm Reason for Visit Admit Date Acute hypoxic respiratory failure June 13, 2024 9:28pm CHF (congestive heart failure) June 9:28pm Hypoxia June 13, 2024 9:28 pm Pneumonia June 13, 2024 9:28 pm Respiratory failure June 13, 2024 9:28 pm Chief Complaint Admit Date sob June 13, 2024 9:27 pm RESP FAILURE, POSS PNA, POSS HF June 2n d2024 9:28pm RESP FAILURE, POSS PNA, POSS HF June 3r d2024 9:59am RESP FAILURE, POSS PNA, POSS HF June 4t h2024 8:47am RESP FAILURE, POSS PNA, POSS HF June 5t h2024 12:57pm RESP FAILURE, POSS PNA, POSS HF June 6t h2024 12:54pm RESP FAILURE, POSS PNA, POSS HF June 7t h2024 5:27pm Reason for Visit Admit Date Acute hypoxic respiratory failure June 13, 2024 9:28pm CHF (congestive heart failure) June 9:28pm Contusion of right great toe without damage to nail, initial encounter June 13, 2024 9:28pm Hypoxia June 13, 2024 9:28 pm Pneumonia June 13, 2024 9:28 pm Respiratory failure June 13, 2024 9:28 pm Additional Source Comments INFORMATION SOURCE (unrecogn ized section and content) DATE CREATED AUTHOR 09/07/2017 [facility] DATE CREATED AUTHOR AUTHOR'S ORGANIZ ATION 09/07/2017 [facility] DATE CREATED AUTHOR AUTHOR'S ORGANIZ ATION 09/11/2024 [facility] Care Teams (unrecognized sec tion and content) Team Status: Active Member Role Status Dates Dr. Socrates Spangler MD Primary Care Provider Active Team Status: Active Member Role Status Dates Dr. Socrates Spangler MD Primary Care Provider Active Start: June 13, 2024 Dr. Gabriel Rucker DO Emergency Provider Active S tart: June 13, 2024 Dr. Estela Staton MD Attending Provider Active Start: June 13, 2024 Team Status: Active Member Role Status Dates Dr. Socrates Spangler MD Primary Care Provider Active Start: June 13, 2024 Dr. Gabriel Rucker DO Emergency Provider Active S tart: June 13, 2024 Dr. Estela Staton MD Admit Provider Active St art: June 13, 2024 Dr. Estela Staton MD Attending Provider Active Start: June 13, 2024 Team Status: Inactive Member Role Status Dates Dr. Socrates Spangler MD Primary Care Provider Active Start: June 13, 2024 End: June 19, 2024 Dr. Gabriel Rucker DO Emergency Provider Active S tart: June 13, 2024 End: June 19, 2024 Dr. Estela Staton MD Admit Provider Active St art: June 13, 2024 End: June 19, 2024 Dr. Estela Staton MD Other Provider Active St art: June 13, 2024 End: June 19, 2024 Dr. Sarabjit Dubois , DPM Other Provider Active S tart: June 13, 2024 End: June 19, 2024 Dr. Savanna Suero MD Attending Provider Active Start: June 13, 2024 End: June 19, 2024 Dr. Azam Montgomery MD Other Provider Active Sta rt: June 13, 2024 End: June 19, 2024 Team Status: Active Member Role Status Dates Dr. Socrates Spangler MD Primary Care Provider Active Start: June 14, 2024 Dr. Shun Luciano MD Attending Provider Active S tart: June 14, 2024 Team Status: Active Member Role Status Dates Dr. Socrates Spangler MD Primary Care Provider Active Start: June 14, 2024 Dr. Gabriel Rucker DO Emergency Provider Active S tart: June 14, 2024 Dr. Estela Staton MD Admit Provider Active St art: June 14, 2024 Dr. Estela Staton MD Other Provider Active St art: June 14, 2024 Dr. Azam Montgomery MD Attending Provider Active Start: June 14, 2024 Dr. Azam Montgomery MD Other Provider Active Sta rt: June 14, 2024 Team Status: Active Member Role Status Dates Dr. Socrates Spangler MD Primary Care Provider Active Start: June 15, 2024 Dr. Gabriel Rucker DO Emergency Provider Active S tart: June 15, 2024 Dr. Estela Staton MD Admit Provider Active St art: June 15, 2024 Dr. Estela Staton MD Other Provider Active St art: June 15, 2024 Dr. Azam Montgomery MD Attending Provider Active Start: June 15, 2024 Dr. Azam Montgomery MD Other Provider Active Sta rt: June 15, 2024 Team Status: Active Member Role Status Dates Dr. Socrates Spangler MD Primary Care Provider Active Start: June 16, 2024 Dr. Gabriel Rucker DO Emergency Provider Active S tart: June 16, 2024 Dr. Estela Staton MD Admit Provider Active St art: June 16, 2024 Dr. Estela Staton MD Other Provider Active St art: June 16, 2024 Dr. Azam Montgomery MD Attending Provider Active Start: June 16, 2024 Dr. Azam Montgomery MD Other Provider Active Sta rt: June 16, 2024 Dr. Sarabjit Dubois DPM Other Provider Active S tart: June 16, 2024 Team Status: Active Member Role Status Dates Dr. Socrates Spangler MD Primary Care Provider Active Start: June 17, 2024 Dr. Gabriel Rucker DO Emergency Provider Active S tart: June 17, 2024 Dr. Estela Staton MD Admit Provider Active St art: June 17, 2024 Dr. Estela Staton MD Other Provider Active St art: June 17, 2024 Dr. Azam Montgomery MD Attending Provider Active Start: June 17, 2024 Dr. Azam Montgomery MD Other Provider Active Sta rt: June 17, 2024 Dr. Sarabjit Dubois DPM Other Provider Active S tart: June 17, 2024 Team Status: Active Member Role Status Dates Dr. Socrates Spangler MD Primary Care Provider Active Start: June 18, 2024 Dr. Gabriel Rucker DO Emergency Provider Active S tart: June 18, 2024 Dr. Estela Staton MD Admit Provider Active St art: June 18, 2024 Dr. Estela Staton MD Other Provider Active St art: June 18, 2024 Dr. Sarabjit Dubois DPM Other Provider Active S tart: June 18, 2024 Dr. Savanna Suero MD Attending Provider Active Start: June 18, 2024 Dr. Savanna Suero MD Other Provider Active Star t: June 18, 2024 Dr. Azam Montgomery MD Other Provider Active Sta rt: June 18, 2024 Goals (unrecognized section and content) Goals may be documented in a n alternate section FOR RECORDS PERTAINING TO PATIENTS WHO ARE OR HAVE BEEN ENROLLED IN A CHEMICAL DEPENDENCY/SUBSTANCEABUSE PROGRAM, SOME INFORMATION MAY BE OMITTED. This clinical summary was aggregated from multiple sources. Caution should be exercised in using it in the provision of clinical care. This summary normalizes information from multiple sources, and as a consequence, information in this document may materially change the coding, format and clinical context of patient data. In addition, data may be omitted in some cases. CLINICAL DECISIONS SHOULD BE BASED ON THE PRIMARY CLINICAL RECORDS. [employer] provides no warranty or guarantee of the accuracy or completeness of information in this document.
--- OUTSIDE RECORDS SUMMARY | 2024-10-18 20:10 | XMS RPT_ITS | CCD ---
Author Organization [facility] Care Team Providers Care Manager Of Program Name Role Phone ЕКАТЕРИНА BARTLETT Unavailable Unavailable MARQUES TORRES Unavailable UnavailMARQUES Lucio Unavailable Unavailabl ЕКАТЕРИНА Murphy Unavailable Unavailable ЕКАТЕРИНА BARTLETT Unavailable Unavailable UNKNOWN, REFERR Unavailable Unavailable [facility] Unavailable Unavailable ЕКАТЕРИНА BARTLETT Unavailable Unavailable CHARLOTTE HYMAN Unavailable Unavailable ЕКАТЕРИНА BARTLETT Unavailable Unavailable Crys ROSS, Dr. Crowell Primary Care Provider [phone] Dr. Gabriel Rucker DO Emergency Provider Brionna ROSS, Dr. Estela Ca Attending Provider [...] Care Unavailable Estela Staton Admitting Unavailable Estela Staton Consulting Unavailable Savanna Suero Attending Unavailable Sarabjit Dubois Consulting Unavailable Azam Montgomery Consulting Unavailable Socrates Spangler Primary Care Unavailable Shun Luciano Attending Unavailable Estela Staton L Consulting Unavailable Estela Staton L Admitting Unavailable Savanna Suero Attending Unavailable Spangler, Socrates Primary Care Unavailable Sarabjit Dubois Consulting Unavailable Azam Montgomery Consulting Unavailable Savanna Suero Consulting Unavailable Azam Montgomery Attending Unavailable Crys ROSS, Dr. Crowell Primary Care Provider [phone] Dr. Ryan Yang MD Referring Provider Dr. Ryan Yang MD Emergency Provider [phone] Dr. Nico Garcia DO Attending Provider Dr. Nico Garcia DO Admit Provider Allergies Allergy Classification Reported Allergen(s) Allergy Type Date of Onset Reaction(s) Facility (6 sources) lisinopril; Translations: [LISINOPRIL] Drug Allergy 2 AOF, Unknown [facility] Repository (1 source) Pollen; Translations: [POLLEN] Propensity to adverse reactions (disorder) 3 AOF [facility] (1 source) SMOKE; Translations: [SMOKE] Propensity to adverse reactions (disorder) 6 AOF [facility] (3 sources) Pollen Allergy to substance 7 Itching [facility] (1 source) Pollen Drug allergy (disorder) 7 [facility] Repository Medications Current Medications Medication Drug Class(es) Dates Sig (Normalized) Sig (Original) amLODIPine 5 mg oral tablet (3 sources) Dihydropyridine Calcium Channel Kevin Start: 05-12-2016 take 1 tablet by mouth once daily Amlodipine 5 MG tablet Active 5 mg PO DAILY May 12, 2016 1:00am blood pressure atorvastatin 20 mg oral tablet (3 sources) HMG-CoA Reductase Inhibitor Start: 05-12-2016 take 1 tablet by mouth at bedtime Atorvastatin 20 MG tablet Active 20 mg PO AT BEDTIME May 12, 2016 1:00am cholesterol docusate sodium 100 mg oral capsule (5 sources) Start: 05-14-2016 End: 06-16-2024 take 2 capsules by mouth twice daily Docusate Sodium 100 MG capsule Active 200 mg PO TWICE A DAY June 16, 2024 12:00am stool softner ergocalciferol 1.25 mg oral capsule (1 source) Provitamin D2 Compound Start: 10-18-2024 Ergocalciferol (Vitamin D2) 1,250 mcg (50,000 unit) capsule Active 1250 ug PO EVERY WEEK October 18, 2024 12:00am escitalopram 10 mg oral tablet (1 source) Serotonin Reuptake Inhibitor Start: 10-18-2024 take 1 tablet by mouth at bedtime Escitalopram Oxalate 10 mg tablet Active 10 mg PO AT BEDTIME October 18, 2024 12:00am fexofenadine hydrochloride 180 mg oral tablet (3 sources) Histamine-1 Receptor Antagonist Start: 05-12-2016 take 1 tablet by mouth once daily Fexofenadine 180 MG tablet Active 180 mg PO DAILY May 12, 2016 1:00am allergies furosemide 40 mg oral tablet (5 sources) Loop Diuretic Start: 06-19-2024 take 1 tablet by mouth once daily Furosemide 40 mg Tablet Active 40 mg PO DAILY 7 7 0 June 19, 2024 12:00am Start: 05-12-2016 End: 05-14-2016 Furosemide 40 MG tablet Disc ontinued 20 mg PO DAILY May 12, 2016 1:00am May 14, 2016 9:35am glipiZIDE 10 mg oral tablet (1 source) Sulfonylurea Start: 10-18-2024 take 1 tablet by mouth twice daily Glipizide 10 mg tablet Active 10 mg PO TWICE A DAY October 18, 2024 12:00am hydrocortisone 25 mg/ml topical cream (3 sources) Corticosteroid Start: 05-12-2016 Hydrocortisone 1 APPLIC cream Active 1 APPLICATIO TOPICAL TWICE A DAY May 12, 2016 1:00am rash hydrOXYzine pamoate 25 mg oral capsule (1 source) Antihistamine Start: 10-18-2024 take 1 capsule by mouth once daily as needed Hydroxyzine Pamoate 25 mg capsule Active 25 mg PO DAILY as needed for itching October 18, 2024 12:00am 3 ml insulin aspart, human 100 unt/ml pen injector (5 sources) Insulin Analog Start: 05-14-2016 End: 06-19-2024 Insulin Aspart U-100 (Novolog Flexpen U-100 Insulin) 100 UNITS/ML insulin pen Active 1 sliding scale dose SC BEFORE MEALS AND AT BEDTIME June 19, 2024 12:00am diabetes 3 ml insulin glargine 100 unt/ml pen injector (3 sources) Insulin Analog Start: 05-12-2016 Insulin Glargine (Lantus Solostar U-100 Insulin) 100 UNITS/ML insulin pen Active 50 U SC AT BEDTIME May 12, 2016 1:00am diabetes Insulin Glargine-Yfgn 100 unit/mL (3 mL) insulin pen (1 source) Start: 10-18-2024 Insulin Glargine-Yfgn 100 unit/mL (3 mL) insulin pen Active 45 U SC DAILY October 18, 2024 12:00am levothyroxine sodium 0.112 mg oral tablet (3 sources) l-Thyroxine Start: 10-18-2024 take 1 tablet by mouth once daily Levothyroxine 112 mcg tablet Active 112 ug PO DAILY October 18, 2024 12:00am Start: 05-12-2016 take 1 tablet by sanju th once daily Levothyroxine 100 MCG tablet Active 100 ug PO DAILY May 12, 2016 1:00am loratadine 10 mg oral tablet (1 source) Start: 10-18-2024 take 1 tablet by mouth once daily Loratadine (Loratadine 10 Mg Tablet) 10 mg tablet Active 10 mg PO DAILY October 18, 2024 12:00am magnesium chloride 598 mg delayed release oral tablet (1 source) Start: 10-18-2024 Magnesium Chloride [Magnesium Chloride 64 Mg (Magnesium Chloride) Tablet,Delayed Release] (Magnesium Chloride 64 Mg (Magnesium Chloride) Tablet,Delayed ) 64 mg tablet,delayed release (DR/EC) Active 64 mg PO DAILY October 18, 2024 12:00am magnesium oxide 400 mg oral tablet (3 sources) Start: 05-14-2016 take 1 tablet by mouth twice daily Magnesium Oxide 400 MG tablet Active 400 mg PO TWICE A DAY 60 0 May 14, 2016 1:00am supplement modified 24 hr metFORMIN hydrochloride 500 mg extended release oral tablet (3 sources) Biguanide Start: 05-12-2016 take 1 tablet by mouth twice daily before mealtime Metformin 500 MG tablet,ER rozina.retention 24 hr Active 1000 mg PO TWICE DAILY BEFORE MEALS May 12, 2016 1:00am diabetes metoprolol tartrate 50 mg oral tablet (3 sources) beta-Adrenergic Kevin Start: 05-12-2016 take 1 tablet by mouth twice daily Metoprolol Tartrate 50 MG tablet Active 50 mg PO TWICE A DAY May 12, 2016 1:00am blood pressure montelukast 10 mg oral tablet (4 sources) Leukotriene Receptor Antagonist Start: 10-18-2024 take 1 tablet by mouth once daily Montelukast 10 mg tablet Active 10 mg PO DAILY October 18, 2024 12:00am Start: 05-12-2016 End: 06-15-2024 take 1 tablet by mouth at bedtime Montelukast (Singulair) 10 MG tablet Discontinued 10 mg PO AT BEDTIME May 12, 2016 1:00am June 15, 2024 10:02pm nystatin [id number] unt/ml topical cream (4 sources) Polyene Antifungal Start: 10-18-2024 Nystatin 10 0,000 unit/gram cream Active 1 NMA TOPICAL DAILY October 18, 2024 12:00am Start: 05-14-2016 Nystatin (Nyam yc) 1 APPLIC bottle Active 1 NMA TOPICAL TWICE A DAY 0 May 14, 2016 1:00am yeast omeprazole 40 mg delayed release oral capsule (1 source) Proton Pump Inhibitor Start: 05-12-2016 take 1 capsule by mouth once daily Omeprazole (Prilosec) 40 MG capsule Active 40 mg PO DAILY May 12, 2016 1:00am pantoprazole 40 mg delayed release oral tablet (2 sources) Proton Pump Inhibitor Start: 06-16-2024 take 1 tablet by mouth once daily Pantoprazole 40 mg tablet,delayed release (DR/EC) Active 40 mg PO DAILY June 16, 2024 12:00am reflux potassium chloride 10 meq extended release oral tablet (4 sources) Start: 10-18-2024 take 1 tablet by mouth twice daily Potassium Chloride 10 mEq tablet extended release Active 10 meq PO TWICE A DAY October 18, 2024 12:00am Start: 05-12-2016 End: 10-18-2024 take 1 tablet by mouth twice daily Potassium Chloride 10 MEQ tablet Discontinued 10 meq PO TWICE A DAY May 12, 2016 1:00am October 18, 2024 5:08pm supplement warfarin sodium 5 mg oral tablet (1 source) Vitamin K Antagonist Start: 10-18-2024 take 7.5 mg by mouth once daily Warfarin 5 mg tablet Active 7.5 mg PO DAILY October 18, 2024 12:00am Completed/Discontinued Medications Medication Drug Class(es) Dates Sig (Normalized) Sig (Original) acetaminophen 325 mg / HYDROcodone bitartrate 5 mg oral tablet (3 sources) Opioid Agonist Start: 09-27-2018 End: 10-08-2018 Hydrocodone-Acet aminophen 1 EACH tablet Discontinued 1 NMA PO EVERY 6 HOURS NEEDED as needed for Pain 10 4 0 September 27, 2018 September 30, 2018 12:00am October 08, 2018 12:08am Contusion of foot Contusion of unspecified foot, initial encounter amoxicillin 875 mg / clavulanate 125 mg oral tablet (2 sources) Penicillin-class Antibacterial Start: 06-19-2024 End: 10-18-2024 Amoxicillin-Pot Clavulanate 875-125 mg tablet Discontinued 1 {tbl} PO TWICE A DAY 4 2 0 June 19, 2024 12:00am October 18, 2024 5:10pm apixaban 5 mg oral tablet (2 sources) Factor Xa Inhibitor Start: 06-19-2024 End: 10-18-2024 take 1 tablet by mouth twice daily Apixaban (Eliquis) 5 mg Tablet Discontinued 5 mg PO TWICE A DAY 60 30 0 June 19, 2024 12:00am October 18, 2024 5:17pm 0.4 ml enoxaparin sodium 100 mg/ml prefilled syringe (3 sources) Low Molecular Weight Heparin Start: 05-14-2016 End: 06-16-2024 Enoxaparin 40 MG/0.4 ML syringe Discontinued 40 mg SC TWICE A DAY 28 0 May 14, 2016 1:00am June 16, 2024 4:11pm glimepiride 2 mg oral tablet (3 sources) Sulfonylurea Start: 05-12-2016 End: 05-14-2016 take 1 tablet by mouth twice daily Glimepiride 2 MG tablet Discontinued 2 mg PO TWICE A DAY May 12, 2016 1:00am May 14, 2016 9:34am hydroCHLOROthiazide 25 mg / losartan potassium 100 mg oral tablet (3 sources) Thiazide Diuretic, Angiotensin 2 Receptor Kevin Start: 05-12-2016 End: 10-18-2024 Losartan-Hydroch lorothiazide (Hyzaar) 1 TAB tablet Discontinued 1 {tbl} PO DAILY May 12, 2016 1:00am October 18, 2024 5:08pm blood pressure On Hold: Resume on 06/27/24. oxyCODONE hydrochloride 5 mg oral tablet (3 sources) Opioid Agonist Start: 05-14-2016 End: 10-18-2024 take 1 tablet by mouth every four hours as needed for pain Oxycodone 5 MG tablet Discontinued 5 mg PO EVERY 4 HOURS NEEDED as needed for Moderate Pain (pain scale 4-5) 20 0 May 14, 2016 1:00am October 18, 2024 5:18pm predniSONE 20 mg oral tablet (2 sources) Start: 06-19-2024 End: 10-18-2024 take 2 tablets by mouth once daily Prednisone 20 mg tablet Discontinued 40 mg PO DAILY 10 5 0 June 19, 2024 12:00am October 18, 2024 5:08pm traZODone hydrochloride 50 mg oral tablet (3 sources) Serotonin Reuptake Inhibitor Start: 05-12-2016 End: [...] Translations: [PAROXYSMAL ATRIAL FIBRIL] Onset: 05-24-2016 Chronic Cardiac dysrhythmias (2 sources) Bradycardia; Translations: [Bradycardia, unspecified] 10-18-2024 Episodic Chronic obstructive pulmonary disease and bronchiectasis (1 source) Chronic obstructive pulmonary disease, unspecified; Translations: [COPD UNSPECIFIED] Onset: 05-24-2016 Chronic Congestive heart failure; nonhypertensive (5 sources) Congestive heart failure; Translations: [Heart failure, unspecified] 06-13-2024 Chronic Deficiency and other anemia (1 source) Anemia in other chronic diseases classified elsewhere; Translations: [ANEMIA IN OTH CHRONIC DZ] Onset: 05-24-2016 Chronic Diabetes mellitus with complications (1 source) Type 2 diabetes mellitus with hyperglycemia; Translations: [Type 2 diabetes mellitus with hyperglycemia] Onset: 09-10-2016 Chronic Diabetes mellitus without complication (4 sources) Type 2 diabetes mellitus without complications; Translations: [Type 2 diabetes mellitus] Onset: 05-24-2016 06-13-2024 Chronic Disorders of lipid metabolism (3 sources) Hyperlipidemia; Translations: [Hyperlipidemia, unspecified] 06-13-2024 Chronic E Codes: Fall (3 sources) Fall; Translations: [Unspecified fall, initial encounter] 05-12-2016 Episodic Essential hypertension (4 sources) Essential (primary) hypertension; Translations: [Hypertensive disorder] Onset: 05-24-2016 06-13-2024 Chronic External Injury - Fall (1 source) Fall from non-moving wheelchair, initial encounter; Translations: [FALL NON-MOVING WHEELCHA] Onset: 05-24-2016 Fluid and electrolyte disorders (2 sources) Hyperkalemia; Translations: [Hyperkalemia] 10-18-2024 Episodic Fracture of lower limb (7 sources) Other fracture of right lower leg, subsequent encounter for closed fracture with routine healing; Translations: [Displaced bimalleolar fracture of right lower leg, initial encounter for closed fracture] Onset: 05-24-2016 05-12-2016 Episodic Mycoses (2 sources) Candidiasis of skin; Translations: [Candidiasis of skin and nail] 10-18-2024 Episodic Osteoarthritis (1 source) Unspecified osteoarthritis, unspecified site; Translations: [UNSPECIFIED OSTEOARTHRIT] Onset: 05-24-2016 Chronic Osteoporosis (1 source) Age-related osteoporosis without current pathological fracture; Translations: [AGE-REL OSTEOPOR W/O CUR] Onset: 05-24-2016 Chronic Other aftercare (2 sources) Long-term current use of anticoagulant; Translations: [half-way (current) use of anticoagulants] 10-18-2024 Episodic Other lower respiratory disease (5 sources) Hypoxia; Translations: [Hypoxemia] 06-13-2024 Episodic Other lower respiratory disease (1 source) Shortness of breath; Translations: [Shortness of breath] Onset: 09-10-2024 Episodic Other nervous system disorders (1 source) Other chronic pain; Translations: [OTHER CHRONIC PAIN] Onset: 05-24-2016 Chronic Other nervous system disorders (2 sources) Hypoglycemic encephalopathy; 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 encephalopathy] 10-18-2024 Chronic Other nervous system disorders (2 sources) Unable to walk; Translations: [Difficulty in walking, not elsewhere classified] 10-18-2024 Chronic Other nutritional; endocrine; and metabolic disorders (4 sources) Morbid (severe) obesity due to excess calories; Translations: [Other disorders of phosphorus metabolism] Onset: 05-24-2016 Chronic Other nutritional; endocrine; and metabolic disorders (3 sources) Morbid obesity; Translations: [Morbid (severe) obesity due to excess calories] 06-13-2024 Chronic Other nutritional; endocrine; and metabolic disorders (2 sources) Failure to thrive 10-18-2024 Episodic Other nutritional; endocrine; and metabolic disorders (2 sources) Adult failure to thrive syndrome; Translations: [Adult failure to thrive] 10-18-2024 Episodic Other nutritional; endocrine; and metabolic disorders (2 sources) H/O: diabetes mellitus; Translations: [Personal history of other endocrine, nutritional and metabolic disease] 10-18-2024 Episodic Pneumonia (except that caused by tuberculosis or sexually transmitted disease) (5 sources) Pneumonia; Translations: [Pneumonia, unspecified organism] 06-13-2024 Episodic Residual codes; unclassified (3 sources) Obstructive sleep apnea syndrome; Translations: [Obstructive sleep apnea (adult) (pediatric)] 06-13-2024 Chronic Respiratory failure; insufficiency; arrest (1 source) Chronic respiratory failure, unspecified whether with hypoxia or hypercapnia; Translations: [CHR RESP FAIL UNS HYPOX/] Onset: 05-24-2016 Chronic Respiratory failure; insufficiency; arrest (adult) (10 sources) Acute respiratory failure; Translations: [Acute respiratory failure with hypoxia] Onset: 06-20-2024 06-13-2024 Episodic Superficial injury; contusion (4 sources) Contusion of right great toe; Translations: [...] call the office to schedule your appointment. 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; Translations: [half-way (current) use of insulin] Onset: 05-24-2016 Episodic Results Test Name Value Interpretation Reference Range Facility Absolute lymphocyte countOrd ered By: Ryan Yang on 10-18-2024 Lymphocytes Auto (Unsp spec) [#/Vol] 1.06 10*3/uL 0.83-4.51 [facility] Absolute neutrophil countOrd ered By: Ryan Yang on 10-18-2024 Neutrophils (Bld) [#/Vol] 7.3 10*3/uL 2.0-7.7 [facility] Anion gap in Serum or Plasma Ordered By: Ryan Yang on 10-18-2024 Anion gap [Moles/Vol] 5 mmol/L 5-15 [facility] Automated lymphocyte count a s percentage of total leukocytesOrdered By: Ryan Yang on 10-18-2024 Lymphocytes/100 WBC Auto (Unsp spec) 11.8 % Low 19-41 [facility] BUN/creatinine ratioOrdered By: Ryan Yang on 10-18-2024 Urea nitrogen/Creatinine [Mass ratio] 18.2 mg/mg 10-20 [facility] Basophil percentageOrdered B y: Ryan Yang on 10-18-2024 Basophils/100 WBC (Bld) 0.1 % 0-1 [facility] Bilirubin Test strip Ql (U)O rdered By: Ryan Yang on 10-18-2024 Bilirubin Ql (U) 1 mg/dL High Negative [facility] Comment on above: COLOR OF URINE MAY A FFECT DIPSTICK RESULTS. Bilirubin, totalOrdered By: Ryan Yang on 10-18-2024 Bilirubin [Mass/Vol] 0.30 mg/dL 0.00-1.30 [facility] Carbon dioxide, total [Moles /volume] in Central venous bloodOrdered By: Ryan Yang on 10-18-2024 CO2 [Moles/Vol] 26.8 mmol/L 21.0-32.0 [facility] Chloride assayOrdered By: Jos Yang on 10-18-2024 Chloride [Moles/Vol] 104 mmol/L 98-108 [facility] Eosinophil percentageOrdered By: Ryan Yang on 10-18-2024 Eosinophils/100 WBC (Bld) 0.4 % 0-5 [facility] Erythrocyte distribution wid th ratioOrdered By: Ryan Yang on 10-18-2024 Erythrocyte distribution width (RBC) [Ratio] 16.6 % High 11.6-14.6 [facility] Erythrocyte distribution wid th standard deviationOrdered By: Ryan Yang on 10-18-2024 Erythrocyte distribution width (RBC) [Ratio] 54.3 fl High 35.1-43.9 [facility] Glomerular filtration rate ( GFR) estimation/1.73 sq m using serum, plasma, or whole bOrdered By: Ryan Yang on 10-18-2024 GFR/1.73 sq M.predicted among non-blacks MDRD (S/P/Bld) [Vol rate/Area] 43 mL/min/{1.73_m2} Low >60 [facility] Comment on above: mL/min/1.73m2 CKD-EP I Creatinine Equation (2020) [facility] deOrdered By: Ryan Yang on 10-18-2024 Glucose [Mass/Vol] 68 mg/dL Low 74-106 [facility] Comment on above: MANAGEMENT OF PATIEN T CARE PER NURSING PROTOCOL Hematocrit Auto (Bld) [Volum e fraction]Ordered By: Ryan Yang on 10-18-2024 Hematocrit (Bld) [Volume fraction] 40.8 % 37-47 [facility] Hemoglobin measurementOrdere d By: Ryan Yang on 10-18-2024 Hemoglobin (Bld) [Mass/Vol] 11.8 g/dL Low 12.0-15.0 [facility] Immature granulocytes/100 WB C Auto (Bld)Ordered By: Ryan Yang on 10-18-2024 Immature granulocytes/100 WBC (Bld) 0.300 % 0.0-0.9 [facility] Comment on above: IG% - Immature Granu locytes (promyelocytes, myelocytes and metamyelocytes) > 1% indicates that a LEFT SHIFT is Present. Ketones Test strip Ql (U)Ord ered By: Ryan Yang on 10-18-2024 Ketones Ql (U) Negative Negative [facility] Laboratory - Chemistry and C hemistry - challengeOrdered By: Ryan Yang on 10-18-2024 AST [Catalytic activity/Vol] 33 U/L High <32 [facility] Comment on above: Hemolysis present, R esults could be affected. MCV (mean corpuscular volume ) determinationOrdered By: Ryan Yang on 10-18-2024 MCV (RBC) [Entitic vol] 89.3 fL 81-99 [facility] Mean corpuscular hemoglobin (MCH) determinationOrdered By: Ryan Yang on 10-18-2024 MCH (RBC) [Entitic mass] 25.8 pg Low 27.0-32.0 [facility] Mean corpuscular hemoglobin concentration (MCHC) determinationOrdered By: Ryan Yang on 10-18-2024 MCHC (RBC) [Mass/Vol] 28.9 g/dL Low 32-36 [facility] Mean platelet volume determi nationOrdered By: Ryan Yang on 10-18-2024 Platelet mean volume (Bld) [Entitic vol] 10.3 fL 6.2-12.0 [facility] Microscopic analysis of urin e for red blood cells (RBC)Ordered By: Ryan Yang on 10-18-2024 Microscopic analysis of urine for red blood cells (RBC) 0-5 SEEN /hpf 0-5 [facility] Monocyte percentageOrdered B y: Ryan Yang on 10-18-2024 Monocytes/100 WBC (Bld) 6.0 % 0-10 [facility] Mucus LM Ql (Urine sed)Order ed By: Ryan Yang on 10-18-2024 Mucus Ql (Urine sed) 0 SEEN /hpf [facility] Neutrophil percentageOrdered By: Ryan Yang on 10-18-2024 Neutrophils/100 WBC (Bld) 81.4 % High 47-70 [facility] Nitrite Test strip Ql (U)Ord ered By: Ryan Yang on 10-18-2024 Nitrite Ql (U) Positive High Negative [facility] Nucleated red blood cell per centageOrdered By: Ryan Yang on 10-18-2024 Nucleated RBC/100 WBC (Bld) [Ratio] 0 % 0-5 [facility] Platelet countOrdered By: Jos Yang on 10-18-2024 Platelets (Bld) [#/Vol] 190 10*3/uL 150-450 [facility] Potassium measurement (mass/ volume)Ordered By: Ryan Yang on 10-18-2024 Potassium (Unsp spec) [Mass/Vol] 5.6 mmol/L High 3.3-5.1 [facility] Protein Test strip Ql (U)Ord ered By: Ryan Yang on 10-18-2024 Protein Ql (U) 30 mg/dl High Negative [facility] RBC Auto (Bld) [#/Vol]Ordere d By: Ryan Yang on 10-18-2024 RBC (Bld) [#/Vol] 4.57 10*6/uL 4.2-5.4 [facility] Serum creatinine measurement (mass/volume)Ordered By: Ryan Yang on 10-18-2024 Creatinine [Mass/Vol] 1.27 mg/dL High 0.70-1.20 [facility] Serum globulin measurementOr dered By: Ryan Yang on 10-18-2024 Globulin (S) [Mass/Vol] 3.3 g/dL 2.2-4.2 [facility] Serum glucose measurement (m ass/volume)Ordered By: Ryan Yang on 10-18-2024 Glucose [Mass/Vol] 74 mg/dL 70-99 [facility] Serum or plasma alanine aguirre otransferase (ALT) measurementOrdered By: Ryan Yang on 10-18-2024 ALT [Catalytic activity/Vol] 5 U/L <35 [facility] Comment on above: Hemolysis present, R esults could be affected. Serum or plasma albumin kezia urement (mass/volume)Ordered By: Ryan Yang on 10-18-2024 Albumin [Mass/Vol] 2.2 g/dL Low 3.4-4.8 [facility] Serum or plasma albumin/glob ulin mass ratioOrdered By: Ryan Yang on 10-18-2024 Albumin/Globulin [Mass ratio] 0.7 {ratio} Low 0.9-2.4 [facility] Serum or plasma alkaline dawood sphatase measurementOrdered By: Ryan Yang on 10-18-2024 ALP [Catalytic activity/Vol] 73 U/L 35-104 [facility] Serum or plasma calcium kezai urement (mass/volume)Ordered By: Ryan Yang on 10-18-2024 Calcium [Mass/Vol] 8.4 mg/dL 7.6-11.0 [facility] Serum or plasma urea nitroge n measurement (mass/volume)Ordered By: Ryan Yang on 10-18-2024 Urea nitrogen [Mass/Vol] 23 mg/dL High 4-19 [facility] Sodium levelOrdered By: Ryan Yang on 10-18-2024 Sodium [Moles/Vol] 136 mmol/L 133-145 [facility] Squamous epithelial cells de tection in urine sediment by light microscopyOrdered By: Ryan Yang on 10-18-2024 Epithelial cells.squamous LM Ql (Urine sed) 10-25 SEEN /hpf 5-10 [facility] Total proteinOrdered By: Eulalio Yang on 10-18-2024 Protein [Mass/Vol] 5.5 g/dL Low 5.9-8.4 [facility] Urine clarityOrdered By: Eulalio Yang on 10-18-2024 Clarity (U) Cloudy Clear [facility] [facility] Urine color determinationOrd ered By: Ryan Yang on 10-18-2024 Color (U) Yellow Yellow [facility] Urine glucose detectionOrder ed By: Ryan Yang on 10-18-2024 Glucose Ql (U) Normal mg/dl Normal [facility] Urine leukocyte esterase det ection by dipstickOrdered By: Ryan Yang on 10-18-2024 Leukocyte esterase Test strip Ql (U) 500 /ul High Negative [facility] Urine pHOrdered By: Ryan cannon on 10-18-2024 pH (U) 6.0 [pH] 5.0 - 8.0 [facility] Urine sediment bacteria coun t by microscopy (number/high power field)Ordered By: Ryan Yang on 10-18-2024 Bacteria LM.HPF (Urine sed) [#/Area] 1 /[HPF] None Seen [facility] Urine specific gravity measu rementOrdered By: Ryan Yang on 10-18-2024 Specific gravity (U) [Rel density] 1.020 1.002-1.030 [facility] Urine urobilinogen measureme ntOrdered By: Ryan Yang on 10-18-2024 Urobilinogen Ql (U) Normal mg/dl Normal [facility] White blood cell (WBC) count Ordered By: Ryan Yang on 10-18-2024 WBC (Bld) [#/Vol] 9.0 10*3/uL 4.4-11.0 [facility] White blood cell countOrdere d By: Ryan Yang on 10-18-2024 White blood cell count 50-100 SEEN /hpf 0-5 [facility] Anion gap in Serum or Plasma Ordered By: Savanna Suero on 06-19-2024 Anion gap [Moles/Vol] 10 mmol/L 5-15 [facility] BUN/creatinine ratioOrdered By: Savanna Suero on 06-19-2024 Urea nitrogen/Creatinine [Mass ratio] 36.4 mg/mg High - [facility] Basic Metabolic Profile (BMP )on 06-19-2024 BUN/CRE 36.4 RATIO High - [facility] Comment on above: Order Comment: REDRA W. PREVIOUS SPECIMEN REJECTED DUE TOHEMOLYSIS. 06/19/24819 Performed By: #### L 501.080 #### [facility] [address] [place], [address] Calcium [Mass/Vol] 9.0 mg/dL Normal 7.6-11.0 [facility] Comment on above: Order Comment: REDRA W. PREVIOUS SPECIMEN REJECTED DUE TOHEMOLYSIS. 06/19/24819 Performed By: #### L 501.080 #### [facility] [address] [place], [address] Chloride [Moles/Vol] 99 mmol/L Normal 98-108 [facility] Comment on above: Order Comment: REDRA W. PREVIOUS SPECIMEN REJECTED DUE TOHEMOLYSIS. 06/19/24819 Performed By: #### L 501.080 #### [facility] [address] [place], [address] CO2 [Moles/Vol] 31.7 mmol/L Normal 21.0-32.0 [facility] Comment on above: Order Comment: REDRA W. PREVIOUS SPECIMEN REJECTED DUE TOHEMOLYSIS. 06/19/24819 Performed By: #### L 501.080 #### [facility] [address] [place], [address] Creatinine [Mass/Vol] 1.28 mg/dL High 0.70-1.20 [facility] Comment on above: Order Comment: REDRA W. PREVIOUS SPECIMEN REJECTED DUE TOHEMOLYSIS. 06/19/24819 Performed By: #### L 501.080 #### [facility] [address] [place], [address] ECRCL 58.45 ml/min Normal 50-250 [facility] Comment on above: Order Comment: REDRA W. PREVIOUS SPECIMEN REJECTED DUE TOHEMOLYSIS. 06/19/24819 Performed By: #### L 501.080 #### [facility] [address] [place], [address] GAP 10 Normal 5-15 [facility] Comment on above: Order Comment: REDRA W. PREVIOUS SPECIMEN REJECTED DUE TOHEMOLYSIS. 06/19/24819 Performed By: #### L 501.080 #### [facility] [address] [place], [address] GFR/1.73 sq M.predicted among non-blacks MDRD (S/P/Bld) [Vol rate/Area] 42 mL/min/{1.73_m2} Low >60 [facility] Comment on above: Order Comment: REDRA W. PREVIOUS SPECIMEN REJECTED DUE TOHEMOLYSIS. 06/19/24819 Result Comment: mL/m in/1.73m2 CKD-EPI Creatinine Equation (2020) Performed By: #### L 501.080 #### [facility] [address] [place], [address] Glucose [Mass/Vol] 189 mg/dL High 70-99 [facility] Comment on above: Order Comment: REDRA W. PREVIOUS SPECIMEN REJECTED DUE TOHEMOLYSIS. 06/19/24819 Performed By: #### L 501.080 #### [facility] [address] [place], [address] Potassium [Moles/Vol] 3.5 mmol/L Normal 3.3-5.1 [facility] Comment on above: Order Comment: REDRA W. PREVIOUS SPECIMEN REJECTED DUE TOHEMOLYSIS. 06/19/24819 Result Comment: Hemo lysis present, Results??could be affected. ?? Performed By: #### L 501.080 #### [facility] [address] [place], [address] Sodium [Moles/Vol] 141 mmol/L Normal 133-145 [facility] Comment on above: Order Comment: REDRA W. PREVIOUS SPECIMEN REJECTED DUE TOHEMOLYSIS. 06/19/24819 Performed By: #### L 501.080 #### [facility] [address] [place], [address] Urea nitrogen [Mass/Vol] 47 mg/dL High - [facility] Comment on above: Order Comment: REDRA W. PREVIOUS SPECIMEN REJECTED DUE TOHEMOLYSIS. 06/19/24819 Performed By: #### L 501.080 #### [facility] [address] [place], [address] BUN Normal - [facility] Comment on above: Result Comment: This specimen has been REJECTED due to Laboratory criteria: Hemolyzed. LAB has been notified of need of recollection. 06/19/24818 Siomara Clapper Performed By: #### L 500.2500, L100.0100 #### [facility] [address] [place], [address] BUN/CRE Normal - [facility] Comment on above: Result Comment: This specimen has been REJECTED due to Laboratory criteria: Hemolyzed. LAB has been notified of need of recollection. 06/19/24818 Siomara Clapper Performed By: #### L 500.2500, L100.0100 #### [facility] [address] [place], [address] Calcium Normal 7.6-11.0 [facility] Comment on above: Result Comment: This specimen has been REJECTED due to Laboratory criteria: Hemolyzed. LAB has been notified of need of recollection. 06/19/24818 Siomara Clapper Performed By: #### L 500.2500, L100.0100 #### [facility] [address] [place], [address] CL Normal 98-108 [facility] Comment on above: Result Comment: This specimen has been REJECTED due to Laboratory criteria: Hemolyzed. LAB has been notified of need of recollection. 06/19/24818 Siomara Clapper Performed By: #### L 500.2500, L100.0100 #### [facility] [address] [place], [address] CO2 Normal 21.0-32.0 [facility] Comment on above: Result Comment: This specimen has been REJECTED due to Laboratory criteria: Hemolyzed. LAB has been notified of need of recollection. 06/19/24818 Siomara Clapper Performed By: #### L 500.2500, L100.0100 #### [facility] [address] [place], [address] CREAT,SERUM Normal 0.70-1.20 [facility] Comment on above: Result Comment: This specimen has been REJECTED due to Laboratory criteria: Hemolyzed. LAB has been notified of need of recollection. 06/19/24818 Siomara Clapper Performed By: #### L 500.2500, L100.0100 #### [facility] [address] [place], [address] eGFR Normal >60 [facility] Comment on above: Result Comment: This specimen has been REJECTED due to Laboratory criteria: Hemolyzed. LAB has been notified of need of recollection. 06/19/24818 Siomara Clapper Performed By: #### L 500.2500, L100.0100 #### [facility] [address] [place], [address] GAP Normal 5-15 [facility] Comment on above: Result Comment: This specimen has been REJECTED due to Laboratory criteria: Hemolyzed. LAB has been notified of need of recollection. 06/19/24818 Siomara Clapper Performed By: #### L 500.2500, L100.0100 #### [facility] [address] [place], [address] GLU Normal 70-99 [facility] Comment on above: Result Comment: This specimen has been REJECTED due to Laboratory criteria: Hemolyzed. LAB has been notified of need of recollection. 06/19/24818 Siomara Clapper Performed By: #### L 500.2500, L100.0100 #### [facility] [address] [place], [address] Potassium Normal 3.3-5.1 [facility] Comment on above: Result Comment: This specimen has been REJECTED due to Laboratory criteria: Hemolyzed. LAB has been notified of need of recollection. 06/19/24818 Siomara Clapper Performed By: #### L 500.2500, L100.0100 #### [facility] [address] [place], [address] Basic Metabolic Profile (BMP) Normal 133-145 [facility] Comment on above: Result Comment: This specimen has been REJECTED due to Laboratory criteria: Hemolyzed. LAB has been notified of need of recollection. 06/19/24818 Siomara Clapper Performed By: #### L 500.2500, L100.0100 #### [facility] [address] [place], [address] Bedside Glucoseon 06-19-2024 FINGERSTICK GLU 267 mg/dL High 74-106 [facility] Comment on above: Result Comment: ALEXIS GEMENT OF PATIENT CARE PER NURSING PROTOCOL Performed By: #### L 500.2500, L100.0100 #### [facility] [address] [place], [address] FINGERSTICK GLU 233 mg/dL High 74-106 [facility] Comment on above: Result Comment: ALEXIS GEMENT OF PATIENT CARE PER NURSING PROTOCOL Performed By: #### L 500.2500, L100.0100 #### [facility] [address] [place], [address] FINGERSTICK GLU 176 mg/dL High 74-106 [facility] Comment on above: Result Comment: ALEXIS BAE OF PATIENT CARE PER NURSING PROTOCOL Performed By: #### L 500.2500, L100.0100 #### [facility] [address] [place], [address] CBC-Complete Blood Cnt No Di ffon 06-19-2024 Erythrocyte distribution width (RBC) [Ratio] 14.3 % Normal 11.6-14.6 [facility] Comment on above: Performed By: #### L 500.2500, L100.0100 #### [facility] [address] [place], [address] Hematocrit (Bld) [Volume fraction] 51.3 % High 37-47 [facility] Comment on above: Performed By: #### L 500.2500, L100.0100 #### [facility] [address] [place], [address] Hemoglobin (Bld) [Mass/Vol] 16.0 g/dL High 12.0-15.0 [facility] Comment on above: Performed By: #### L 500.2500, L100.0100 #### [facility] [address] [place], [address] MCH (RBC) [Entitic mass] 28.0 pg Normal 27.0-32.0 [facility] Comment on above: Performed By: #### L 500.2500, L100.0100 #### [facility] [address] [place], [address] MCHC (RBC) [Mass/Vol] 31.2 g/dL Low 32-36 [facility] Comment on above: Performed By: #### L 500.2500, L100.0100 #### [facility] [address] [place], [address] MCV (RBC) [Entitic vol] 89.8 fL Normal 81-99 [facility] Comment on above: Performed By: #### L 500.2500, L100.0100 #### [facility] [address] [place], [address] Platelet mean volume (Bld) [Entitic vol] 9.3 fL Normal 6.2-12.0 [facility] Comment on above: Performed By: #### L 500.2500, L100.0100 #### [facility] [address] [place], [address] Platelets (Bld) [#/Vol] 145 10*3/uL Low 150-450 [facility] Comment on above: Performed By: #### L 500.2500, L100.0100 #### [facility] [address] [place], [address] RBC (Bld) [#/Vol] 5.71 10*6/uL High 4.2-5.4 [facility] Comment on above: Performed By: #### L 500.2500, L100.0100 #### [facility] [address] [place], [address] RDW SD 47.0 fl High 35.1-43.9 [facility] Comment on above: Performed By: #### L 500.2500, L100.0100 #### [facility] [address] [place], [address] WBC (Bld) [#/Vol] 9.7 10*3/uL Normal 4.4-11.0 [facility] Comment on above: Performed By: #### L 500.2500, L100.0100 #### [facility] [address] [place], [address] Carbon dioxide, total [Moles /volume] in Central venous bloodOrdered By: Savanna Suero on 06-19-2024 CO2 [Moles/Vol] 31.7 mmol/L 21.0-32.0 [facility] Chloride assayOrdered By: Amauri Suero on 06-19-2024 Chloride [Moles/Vol] 99 mmol/L 98-108 [facility] Culture, Blood (WB)on 2024 CUB COLLECTION SITE: L Huber EMANUELT Blood cultures x2, from two different sites No growth in 5 days. Normal [facility] Comment on above: Performed By: #### L 500.2500, L100.0100 #### [facility] [address] [facility], [address] Discharge Instructionon Discharge Instruction [facility] Medical Records Department [address] [place] [address] Instructions for Home/Discharge Instructions 06/19/24 1259 MR#: [id number] Acct: [id number] Name: TOD HUNT Rep #: [id number] : 1945 78 From: Savanna Suero MD [...] MD; Dr. Azam Montgomery MD Signed Normal [facility] Erythrocyte distribution wid th (RBC) [Ratio]Ordered By: Savanna Suero on 06-19-2024 Erythrocyte distribution width (RBC) [Entitic vol] 47.0 fL High 35.1-43.9 [facility] Erythrocyte distribution wid th ratioOrdered By: Savanna Suero on 06-19-2024 Erythrocyte distribution width (RBC) [Ratio] 14.3 % 11.6-14.6 [facility] Estimation of creatinine alex aranceOrdered By: Savanna Suero on 06-19-2024 Estimated Creatinine Clearance Calc 58.45 ml/min 50-250 [facility] GFR/1.73 sq M.predicted bradford g non-blacks MDRD (S/P/Bld) [Vol rate/Area]Ordered By: Savanna Suero on 06-19-2024 Estimated GFR (MDRD) Non-Af Amer 42 Low >60 [facility] Comment on above: mL/min/1.73m2 CKD-EP I Creatinine Equation (2020) [facility]: Savanna Suero on 06-19-2024 Bedside Glucose (Misc Panel) 267 mg/dL High 74-106 [facility] Comment on above: MANAGEMENT OF PATIEN T CARE PER NURSING PROTOCOL Hematocrit Auto (Bld) [Volum e fraction]Ordered By: Savanna Suero on 06-19-2024 Hematocrit (Bld) [Volume fraction] 51.3 % High 37-47 [facility] Hemoglobin measurementOrdere d By: Savanna Suero on 06-19-2024 Hemoglobin (Bld) [Mass/Vol] 16.0 g/dL High 12.0-15.0 [facility] MCV (mean corpuscular volume ) determinationOrdered By: Savanna Suero on 06-19-2024 MCV (RBC) [Entitic vol] 89.8 fL 81-99 [facility] Magnesiumon 06-19-2024 Magnesium [Mass/Vol] 1.7 mg/dL Normal 1.5-2.2 [facility] Comment on above: Order Comment: REDRA W. PREVIOUS SPECIMEN REJECTED DUE TOHEMOLYSIS. 06/19/24819 Performed By: #### L 501.080 #### [facility] [address] [place], [place], [address] Magnesium [Mass/Vol] 2.0 mg/dL Normal 1.5-2.2 [facility] Comment on above: Order Comment: This specimen has been REJECTED due to Laboratory criteria:Hemolyzed.LAB has been notified of need of recollection.06/19/24818 Siomara Costaer Result Comment: This specimen has been REJECTED due to Laboratory criteria: Hemolyzed. LAB has been notified of need of recollection. 06/19/24818 Siomara Clahallieer Performed By: #### L 500.2500, L100.0100 #### [facility] [address] [place], [address] Magnesium (Unsp spec) [Mass/ Vol]Ordered By: Savanna Suero on 06-19-2024 Magnesium [Mass/Vol] 1.7 mg/dL 1.5-2.2 [facility] Mean corpuscular hemoglobin (MCH) determinationOrdered By: Savanna Suero on 06-19-2024 MCH (RBC) [Entitic mass] 28.0 pg 27.0-32.0 [facility] Mean corpuscular hemoglobin concentration (MCHC) determinationOrdered By: Savanna Suero on 06-19-2024 MCHC (RBC) [Mass/Vol] 31.2 g/dL Low 32-36 [facility] Mean platelet volume determi nationOrdered By: Savanna Suero on 06-19-2024 Platelet mean volume (Bld) [Entitic vol] 9.3 fL 6.2-12.0 [facility] Platelet countOrdered By: Amauri Suero on 06-19-2024 Platelets (Bld) [#/Vol] 145 10*3/uL Low 150-450 [facility] Potassium (Unsp spec) [Mass/ Vol]Ordered By: Savanna Suero on 06-19-2024 Potassium [Moles/Vol] 3.5 mmol/L 3.3-5.1 [facility] Comment on above: Hemolysis present, R esults could be affected. RBC Auto (Bld) [#/Vol]Ordere d By: Savanna Suero on 06-19-2024 RBC (Bld) [#/Vol] 5.71 10*6/uL High 4.2-5.4 [facility] Serum creatinine measurement (mass/volume)Ordered By: Savanna Suero on 06-19-2024 Creatinine [Mass/Vol] 1.28 mg/dL High 0.70-1.20 [facility] Serum glucose measurement (m ass/volume)Ordered By: Savanna Suero on 06-19-2024 Glucose [Mass/Vol] 189 mg/dL High 70-99 [facility] Serum or plasma calcium kezia urement (mass/volume)Ordered By: Savanna Suero on 06-19-2024 Calcium [Mass/Vol] 9.0 mg/dL 7.6-11.0 [facility] Serum or plasma urea nitroge n measurement (mass/volume)Ordered By: Savanna Suero on 06-19-2024 Urea nitrogen [Mass/Vol] 47 mg/dL High 4-19 [facility] Sodium levelOrdered By: Memo Suero on 06-19-2024 Sodium [Moles/Vol] 141 mmol/L 133-145 [facility] White blood cell (WBC) count Ordered By: Savanna Suero on 06-19-2024 WBC (Bld) [#/Vol] 9.7 10*3/uL 4.4-11.0 [facility] 12 Lead EKGon 06-18-2024 12 Lead EKG [facility] [address] [place] [address] 12 Lead EKG 06/18/24 0728 MR#: [id number] Acct: [id number] Name: TOD HUNT Rep #: [id number] : 1945 78 From: Shun Luciano MD Attending Dr: Dr. Savanna Suero MD Status: ADM IN Ordering Dr: Estela Staton MD Date: 06/18/24 Location: [facility] Sex: F C Admitted: 06/13/24 Test Reason [...] UNCONFIRMED Confirmed by LAUREN ROSS, SHUN ([id number]), communications editor SHRUTI QUINTERO ([id number]) on 06/18/2024 2:02:00 PM Referred By: ULISES Confirmed By: SHUN LUCIANO MD 06/18/24 140 Date Shun Luciano MD CC: Dr. Estela Staton MD; Dr. Socrates Spangler MD; Dr. Savanna Suero MD Signed Normal [facility] Absolute neutrophil countOrd ered By: Azam Montgomery on 06-18-2024 Neutrophils (Bld) [#/Vol] 6.7 10*3/uL 2.0-7.7 [facility] Basic Metabolic Profile (BMP )on 06-18-2024 BUN/CRE 32.9 RATIO High 10-20 [facility] Comment on above: Performed By: #### L 9000.0800 #### [facility] [address] [place], [address] Calcium [Mass/Vol] 8.6 mg/dL Normal 7.6-11.0 [facility] Comment on above: Performed By: #### L 9000.0800 #### [facility] [address] [place], [address] Chloride [Moles/Vol] 100 mmol/L Normal 98-108 [facility] Comment on above: Performed By: #### L 9000.0800 #### [facility] [address] [place], [address] CO2 [Moles/Vol] 31.0 mmol/L Normal 21.0-32.0 [facility] Comment on above: Performed By: #### L 9000.0800 #### [facility] [address] [place], [address] Creatinine [Mass/Vol] 1.47 mg/dL High 0.70-1.20 [facility] Comment on above: Performed By: #### L 9000.0800 #### [facility] [address] [place], [address] ECRCL 51.63 ml/min Normal 50-250 [facility] Comment on above: Performed By: #### L 9000.0800 #### [facility] [address] [place], [address] GAP 10 Normal 5-15 [facility] Comment on above: Performed By: #### L 9000.0800 #### [facility] [address] [place], [address] GFR/1.73 sq M.predicted among non-blacks MDRD (S/P/Bld) [Vol rate/Area] 36 mL/min/{1.73_m2} Low >60 [facility] Comment on above: Result Comment: mL/m in/1.73m2 CKD-EPI Creatinine Equation (2020) Performed By: #### L 9000.0800 #### [facility] [address] [place], [address] Glucose [Mass/Vol] 193 mg/dL High 70-99 [facility] Comment on above: Performed By: #### L 9000.0800 #### [facility] [address] [place], [address] Potassium [Moles/Vol] 3.4 mmol/L Normal 3.3-5.1 [facility] Comment on above: Result Comment: Hemo lysis present, Results??could be affected. ?? Performed By: #### L 9000.0800 #### [facility] [address] [place], [address] Sodium [Moles/Vol] 141 mmol/L Normal 133-145 [facility] Comment on above: Performed By: #### L 9000.0800 #### [facility] [address] [place], [address] Urea nitrogen [Mass/Vol] 48 mg/dL High 4-19 [facility] Comment on above: Performed By: #### L 9000.0800 #### [facility] [address] [place], [address] Basophil percentageOrdered B y: Azamjessica Montgomery on 06-18-2024 Basophils/100 WBC (Bld) 0.1 % 0-1 [facility] Bedside Glucoseon 06-18-2024 FINGERSTICK GLU 229 mg/dL High 74-106 [facility] Comment on above: Result Comment: ALEXIS GEMENT OF PATIENT CARE PER NURSING PROTOCOL Performed By: #### L 9000.0800 #### [facility] [address] [place], [address] FINGERSTICK GLU 215 mg/dL High 74-106 [facility] Comment on above: Result Comment: ALEXIS GEMENT OF PATIENT CARE PER NURSING PROTOCOL Performed By: #### L 501.080 #### [facility] [address] [place], [address] FINGERSTICK GLU 205 mg/dL High 74-106 [facility] Comment on above: Result Comment: ALEXIS GEMENT OF PATIENT CARE PER NURSING PROTOCOL Performed By: #### L 9000.0800 #### [facility] [address] [place], [address] FINGERSTICK GLU 179 mg/dL High 74-106 [facility] Comment on above: Result Comment: ALEXIS GEMENT OF PATIENT CARE PER NURSING PROTOCOL Performed By: #### L 9000.0800 #### [facility] [address] [place], [address] CBC W/Diff, Automatedon 04-0 -2024 Absolute Lymph 1.36 X10 3/uL Normal 0.83-4.51 [facility] Comment on above: Performed By: #### L 9000.0800 #### [facility] [address] [place], [address] Absolute Neut 6.7 X10 3/uL Normal 2.0-7.7 [facility] Comment on above: Performed By: #### L 9000.0800 #### [facility] [address] [place], [address] Basophils/100 WBC (Bld) 0.1 % Normal 0-1 [facility] Comment on above: Performed By: #### L 9000.0800 #### [facility] [facility] [address] [place], [address] Eosinophils/100 WBC (Bld) 0.0 % Normal 0-5 [facility] Comment on above: Performed By: #### L 9000.0800 #### [facility] [address] [place], [address] Erythrocyte distribution width (RBC) [Ratio] 14.5 % Normal 11.6-14.6 [facility] Comment on above: Performed By: #### L 9000.0800 #### [facility] [address] [place], [address] Hematocrit (Bld) [Volume fraction] 48.2 % High 37-47 [facility] Comment on above: Performed By: #### L 9000.0800 #### [facility] [address] [place], [address] Hemoglobin (Bld) [Mass/Vol] 14.8 g/dL Normal 12.0-15.0 [facility] Comment on above: Performed By: #### L 9000.0800 #### [facility] [address] [place], [address] IG% 0.400 Normal 0.0-0.9 [facility] Comment on above: Result Comment: IG% - Immature Granulocytes (promyelocytes, myelocytes and metamyelocytes) > 1% indicates that a LEFT SHIFT is Present. Performed By: #### L 9000.0800 #### [facility] [address] [place], [address] Lymphocytes/100 WBC (Bld) 16.2 % Low 19-41 [facility] Comment on above: Performed By: #### L 9000.0800 #### [facility] [address] [place], [address] MCH (RBC) [Entitic mass] 27.7 pg Normal 27.0-32.0 [facility] Comment on above: Performed By: #### L 9000.0800 #### [facility] [address] [place], [address] MCHC (RBC) [Mass/Vol] 30.7 g/dL Low 32-36 [facility] Comment on above: Performed By: #### L 9000.0800 #### [facility] [address] [place], [address] MCV (RBC) [Entitic vol] 90.1 fL Normal 81-99 [facility] Comment on above: Performed By: #### L 9000.0800 #### [facility] [address] [place], [address] Monocytes/100 WBC (Bld) 3.9 % Normal 0-10 [facility] Comment on above: Performed By: #### L 9000.0800 #### [facility] [address] [place], [address] Neutrophils/100 WBC (Bld) 79.4 % High 47-70 [facility] Comment on above: Performed By: #### L 9000.0800 #### [facility] [address] [place], [address] Nucleated RBC (Bld) [#/Vol] 0 10*3/uL Normal 0-5 [facility] Comment on above: Performed By: #### L 9000.0800 #### [facility] [address] [place], [address] Platelet mean volume (Bld) [Entitic vol] 9.7 fL Normal 6.2-12.0 [facility] Comment on above: Performed By: #### L 9000.0800 #### [facility] [address] [place], [address] Platelets (Bld) [#/Vol] 158 10*3/uL Normal 150-450 [facility] Comment on above: Performed By: #### L 9000.0800 #### [facility] [address] [place], [address] RBC (Bld) [#/Vol] 5.35 10*6/uL Normal 4.2-5.4 [facility] Comment on above: Performed By: #### L 9000.0800 #### [facility] [address] [place], [address] RDW SD 47.8 fl High 35.1-43.9 [facility] Comment on above: Performed By: #### L 9000.0800 #### [facility] [address] [place], [address] WBC (Bld) [#/Vol] 8.4 10*3/uL Normal 4.4-11.0 [facility] Comment on above: Performed By: #### L 9000.0800 #### [facility] [address] [place], [address] Electrocardiogram reportOrde red By: Shun Luciano on 06-18-2024 EKG study [facility] [address] [facility] [address] [place] [address] 12 Lead EKG 06/18/24 0728 MR#: [id number] Acct: [id number] Name: TOD HUNT Rep #:[id number] : 1945 78 From: Shun Luciano MD Attending Dr: Dr. Savanna Suero MD Status: ADM IN Ordering Dr: Estela Staton MD Date: 06/18/24 Location: [facility] Sex: F C Admitted: 06/13/24 Test Reason [...] COMPARISON REQUIRED DATA IS UNCONFIRMED Confirmed by SHUN LUCIANO MD ([id number]), communications editor SHRUTI QUINTERO ([id number]) on 06/18/2024 2:02:00 PM Referred By: ULISES Confirmed By: SHUN LUCIANO MD 06/18/24 1402 Date _ Shun Luciano MD CC: Dr. Estela Staton MD; Dr. Socrates Spangler MD; Dr. Savanna Suero MD ~ Signed [facility] Work Phone: [phone] EKG study [facility] [address] [place] [address] 12 Lead EKG 06/17/24 2322 MR#: [id number] Acct: [id number] Name: TOD HUNT Rep #:[id number] : 1945 78 From: Shun Luciano MD Attending Dr: Dr. Savanna Suero MD Status: ADM IN Ordering Dr: Estela Staton MD Date: 06/17/24 Location: [facility] Sex: F C Admitted: 06/13/24 Test Reason [...] have occurred Confirmed by LAUREN ROSS, SHUN ([id number]), communications editor BETHEL PALMA ([id number]) on 06/18/2024 9:17:53 AM Referred By: BRIONNA Confirmed By: SHUN ULCIANO MD 06/18/24 0917 Date _ Shun Luciano MD CC: Dr. Estela Staton MD; Dr. Socrates Spangler MD; Dr. Savanna Suero MD ~ Signed [facility] Work Phone: [phone] Eosinophil percentageOrdered By: Azam Montgomery on 06-18-2024 Eosinophils/100 WBC (Bld) 0.0 % 0-5 [facility] Immature granulocytes/100 WB C Auto (Bld)Ordered By: Azam Montgomery on 06-18-2024 Immature granulocytes/100 WBC (Bld) 0.400 % 0.0-0.9 [facility] Comment on above: IG% - Immature Granu locytes (promyelocytes, myelocytes and metamyelocytes) > 1% indicates that a LEFT SHIFT is Present. Lymphocytes Auto (Unsp spec) [#/Vol]Ordered By: Azam Montgomery on 06-18-2024 Lymphocytes (Bld) [#/Vol] 1.36 10*3/uL 0.83-4.51 [facility] Lymphocytes/100 WBC Auto (Un sp spec)Ordered By: Azam Montgomery on 06-18-2024 Lymphocytes/100 WBC (Bld) 16.2 % Low 19-41 [facility] Monocyte percentageOrdered B y: [facility] Ulises on 06-18-2024 Monocytes/100 WBC (Bld) 3.9 % 0-10 [facility] Neutrophil percentageOrdered By: Azam Montgomery on 06-18-2024 Neutrophils/100 WBC (Bld) 79.4 % High 47-70 [facility] Nucleated red blood cell per centageOrdered By: Azam Montgomery on 06-18-2024 Nucleated RBC/100 WBC (Bld) [Ratio] 0 % 0-5 [facility] 12 Lead EKGon 06-17-2024 12 Lead EKG [facility] [address] [place] [address] 12 Lead EKG 06/17/24 2322 MR#: [id number] Acct: [id number] Name: TOD HUNT Rep #: [id number] : 1945 78 From: Shun Luciano MD Attending Dr: Dr. Savanna Suero MD Status: ADM IN Ordering Dr: Estela Staton MD Date: 06/17/24 Location: [facility] Sex: F C Admitted: 06/13/24 [...] occurred Confirmed by SHUN LUCIANO MD ([id number]), communications editor BETHEL PALMA ([id number]) on 06/18/2024 9:17:53 AM Referred By: BRIONNA Confirmed By: SHUN LUCIANO MD 06/18/2417 Date Shun Luciano MD CC: Dr. Estela Staton MD; Dr. Socrates Spangler MD; Dr. Savanna Suero MD Signed Normal [facility] Basic Metabolic Profile (BMP )on 06-17-2024 BUN/CRE 31.8 RATIO High 10-20 [facility] Comment on above: Performed By: #### L 500.2500, L100.0100 #### [facility] [address] [place], [address] Calcium [Mass/Vol] 8.7 mg/dL Normal 7.6-11.0 [facility] Comment on above: Performed By: #### L 500.2500, L100.0100 #### [facility] [address] [place], [address] Chloride [Moles/Vol] 100 mmol/L Normal 98-108 [facility] Comment on above: Performed By: #### L 500.2500, L100.0100 #### [facility] [address] [place], [address] CO2 [Moles/Vol] 31.0 mmol/L Normal 21.0-32.0 [facility] Comment on above: Performed By: #### L 500.2500, L100.0100 #### [facility] [address] [place], [address] Creatinine [Mass/Vol] 1.46 mg/dL High 0.70-1.20 [facility] Comment on above: Performed By: #### L 500.2500, L100.0100 #### [facility] [address] [place], [address] ECRCL 51.57 ml/min Normal 50-250 [facility] Comment on above: Performed By: #### L 500.2500, L100.0100 #### [facility] [address] [place], [address] GAP 9 Normal 5-15 [facility] Comment on above: Performed By: #### L 500.2500, L100.0100 #### [facility] [address] [place], [address] GFR/1.73 sq M.predicted among non-blacks MDRD (S/P/Bld) [Vol rate/Area] 36 mL/min/{1.73_m2} Low >60 [facility] Comment on above: Result Comment: mL/m in/1.73m2 CKD-EPI Creatinine Equation (2020) Performed By: #### L 500.2500, L100.0100 #### [facility] [address] [place], [address] Glucose [Mass/Vol] 173 mg/dL High 70-99 [facility] Comment on above: Performed By: #### L 500.2500, L100.0100 #### [facility] [address] [place], [address] Potassium [Moles/Vol] 3.4 mmol/L Normal 3.3-5.1 [facility] Comment on above: Performed By: #### L 500.2500, L100.0100 #### [facility] [address] [place], [address] Sodium [Moles/Vol] 140 mmol/L Normal 133-145 [facility] Comment on above: Performed By: #### L 500.2500, L100.0100 #### [facility] [address] [place], [address] Urea nitrogen [Mass/Vol] 46 mg/dL High 4-19 [facility] Comment on above: Performed By: #### L 500.2500, L100.0100 #### [facility] [address] [place], [address] Bedside Glucoseon 06-17-2024 FINGERSTICK GLU 206 mg/dL High 74-106 [facility] Comment on above: Result Comment: ALEXIS GEMENT OF PATIENT CARE PER NURSING PROTOCOL Performed By: #### L 500.2500, L100.0100 #### [facility] [address] [place], [address] FINGERSTICK GLU 127 mg/dL High 74-106 [facility] Comment on above: Result Comment: ALEXIS GEMENT OF PATIENT CARE PER NURSING PROTOCOL Performed By: #### L 501.080 #### [facility] [address] [place], [address] FINGERSTICK GLU 207 mg/dL High 74-106 [facility] Comment on above: Result Comment: ALEXIS GEMENT OF PATIENT CARE PER NURSING PROTOCOL Performed By: #### L 500.2500, L100.0100 #### [facility] [address] [place], [address] FINGERSTICK GLU 162 mg/dL High 74-106 [facility] Comment on above: Result Comment: ALEXIS GEMENT OF PATIENT CARE PER NURSING PROTOCOL Performed By: #### L 500.2500, L100.0100 #### [facility] [address] [place], [address] CBC W/Diff, Automatedon 04-0 Absolute Lymph 1.25 X10 3/uL Normal 0.83-4.51 [facility] Comment on above: Performed By: #### L 500.2500, L100.0100 #### [facility] [address] [place], [address] Absolute Neut 5.7 X10 3/uL Normal 2.0-7.7 [facility] Comment on above: Performed By: #### L 500.2500, L100.0100 #### [facility] [address] [place], [address] Basophils/100 WBC (Bld) 0.0 % Normal 0-1 [facility] Comment on above: Performed By: #### L 500.2500, L100.0100 #### [facility] [address] [place], [address] Eosinophils/100 WBC (Bld) 0.0 % Normal 0-5 [facility] Comment on above: Performed By: #### L 500.2500, L100.0100 #### [facility] [address] [place], [address] Erythrocyte distribution width (RBC) [Ratio] 14.5 % Normal 11.6-14.6 [facility] Comment on above: Performed By: #### L 500.2500, L100.0100 #### [facility] [address] [place], [address] Hematocrit (Bld) [Volume fraction] 47.9 % High 37-47 [facility] Comment on above: Performed By: #### L 500.2500, L100.0100 #### [facility] [address] [place], [address] Hemoglobin (Bld) [Mass/Vol] 14.6 g/dL Normal 12.0-15.0 [facility] Comment on above: Performed By: #### L 500.2500, L100.0100 #### [facility] [address] [place], [address] IG% 0.300 Normal 0.0-0.9 [facility] Comment on above: Result Comment: IG% - Immature Granulocytes (promyelocytes, myelocytes and metamyelocytes) > 1% indicates that a LEFT SHIFT is Present. Performed By: #### L 500.2500, L100.0100 #### [facility] [address] [place], [address] Lymphocytes/100 WBC (Bld) 17.5 % Low 19-41 [facility] Comment on above: Performed By: #### L 500.2500, L100.0100 #### [facility] [address] [place], [address] MCH (RBC) [Entitic mass] 27.7 pg Normal 27.0-32.0 [facility] Comment on above: Performed By: #### L 500.2500, L100.0100 #### [facility] [address] [place], [address] MCHC (RBC) [Mass/Vol] 30.5 g/dL Low 32-36 [facility] Comment on above: Performed By: #### L 500.2500, L100.0100 #### [facility] [address] [place], [address] MCV (RBC) [Entitic vol] 90.7 fL Normal 81-99 [facility] Comment on above: Performed By: #### L 500.2500, L100.0100 #### [facility] [address] [place], [address] Monocytes/100 WBC (Bld) 3.1 % Normal 0-10 [facility] Comment on above: Performed By: #### L 500.2500, L100.0100 #### [facility] [address] [place], [address] Neutrophils/100 WBC (Bld) 79.1 % High 47-70 [facility] Comment on above: Performed By: #### L 500.2500, L100.0100 #### [facility] [address] [place], [address] Nucleated RBC (Bld) [#/Vol] 0 10*3/uL Normal 0-5 [facility] Comment on above: Performed By: #### L 500.2500, L100.0100 #### [facility] [address] [place], [address] Platelet mean volume (Bld) [Entitic vol] 9.5 fL Normal 6.2-12.0 [facility] Comment on above: Performed By: #### L 500.2500, L100.0100 #### [facility] [address] [place], [address] Platelets (Bld) [#/Vol] 157 10*3/uL Normal 150-450 [facility] Comment on above: Performed By: #### L 500.2500, L100.0100 #### [facility] [address] [place], [address] RBC (Bld) [#/Vol] 5.28 10*6/uL Normal 4.2-5.4 [facility] Comment on above: Performed By: #### L 500.2500, L100.0100 #### [facility] [address] [place], [address] RDW SD 49.1 fl High 35.1-43.9 [facility] Comment on above: Performed By: #### L 500.2500, L100.0100 #### [facility] [address] [place], [address] WBC (Bld) [#/Vol] 7.2 10*3/uL Normal 4.4-11.0 [facility] Comment on above: Performed By: #### L 500.2500, L100.0100 #### [facility] [address] [place], [address] Basic Metabolic Profile (BMP )on 06-16-2024 BUN/CRE 27.3 RATIO High 10-20 [facility] Comment on above: Performed By: #### L 501.080 #### [facility] [address] [place], [address] Calcium [Mass/Vol] 8.6 mg/dL Normal 7.6-11.0 [facility] Comment on above: Performed By: #### L 501.080 #### [facility] [address] [place], [address] Chloride [Moles/Vol] 101 mmol/L Normal 98-108 [facility] Comment on above: Performed By: #### L 501.080 #### [facility] [address] [place], [address] CO2 [Moles/Vol] 18.1 mmol/L Low 21.0-32.0 [facility] Comment on above: Performed By: #### L 501.080 #### [facility] [address] [place], [address] Creatinine [Mass/Vol] 1.56 mg/dL High 0.70-1.20 [facility] Comment on above: Performed By: #### L 501.080 #### [facility] [address] [place], [address] ECRCL 48.19 ml/min Low 50-250 [facility] Comment on above: Performed By: #### L 501.080 #### [facility] [address] [place], [address] GAP 17 High 5-15 [facility] Comment on above: Performed By: #### L 501.080 #### [facility] [address] [place], [address] GFR/1.73 sq M.predicted among non-blacks MDRD (S/P/Bld) [Vol rate/Area] 33 mL/min/{1.73_m2} Low >60 [facility] Comment on above: Result Comment: mL/m in/1.73m2 CKD-EPI Creatinine Equation (2020) Performed By: #### L 501.080 #### [facility] [address] [place], [address] Glucose [Mass/Vol] 195 mg/dL High 70-99 [facility] Comment on above: Performed By: #### L 501.080 #### [facility] [address] [place], [address] Potassium [Moles/Vol] 4.5 mmol/L Normal 3.3-5.1 [facility] Comment on above: Result Comment: Hemo lysis present, Results??could be affected. ?? Performed By: #### L 501.080 #### [facility] [address] [place], [address] Sodium [Moles/Vol] 136 mmol/L Normal 133-145 [facility] Comment on above: Performed By: #### L 501.080 #### [facility] [address] [place], [address] Urea nitrogen [Mass/Vol] 43 mg/dL High 4-19 [facility] Comment on above: Performed By: #### L 501.080 #### [facility] [address] [place], [address] Bedside Glucoseon 06-16-2024 FINGERSTICK GLU 203 mg/dL High 74-106 [facility] Comment on above: Result Comment: ALEXIS GEMENT OF PATIENT CARE PER NURSING PROTOCOL Performed By: #### L 501.080 #### [facility] [address] [place], [address] FINGERSTICK GLU 202 mg/dL High 74-106 [facility] Comment on above: Result Comment: ALEXIS GEMENT OF PATIENT CARE PER NURSING PROTOCOL Performed By: #### L 500.2500, L100.0100 #### [facility] [address] [place], [address] FINGERSTICK GLU 223 mg/dL High 74-106 [facility] Comment on above: Result Comment: ALEXIS GEMENT OF PATIENT CARE PER NURSING PROTOCOL Performed By: #### L 501.080 #### [facility] [address] [place], [address] FINGERSTICK GLU 204 mg/dL High 74-106 [facility] Comment on above: Result Comment: ALEXIS GEMENT OF PATIENT CARE PER NURSING PROTOCOL Performed By: #### L 500.2500, L100.0100 #### [facility] [address] [place], [address] FINGERSTICK GLU 186 mg/dL High 74-106 [facility] Comment on above: Result Comment: ALEXIS GEMENT OF PATIENT CARE PER NURSING PROTOCOL Performed By: #### L 501.080 #### [facility] [address] [place], [address] CBC W/Diff, Automatedon 04-0 5-2025 Absolute Lymph 1.13 X10 3/uL Normal 0.83-4.51 [facility] Comment on above: Performed By: #### L 501.080 #### [facility] [address] [place], [address] Absolute Neut 7.8 X10 3/uL High 2.0-7.7 [facility] Comment on above: Performed By: #### L 501.080 #### [facility] [address] [place], [address] Basophils/100 WBC (Bld) 0.1 % Normal 0-1 [facility] Comment on above: Performed By: #### L 501.080 #### [facility] [address] [place], [address] Eosinophils/100 WBC (Bld) 0.0 % Normal 0-5 [facility] Comment on above: Performed By: #### L 501.080 #### [facility] [address] [place], [address] Erythrocyte distribution width (RBC) [Ratio] 14.8 % High 11.6-14.6 [facility] Comment on above: Performed By: #### L 501.080 #### [facility] [address] [place], [address] Hematocrit (Bld) [Volume fraction] 47.2 % High 37-47 [facility] Comment on above: Performed By: #### L 501.080 #### [facility] [address] [place], [address] Hemoglobin (Bld) [Mass/Vol] 14.4 g/dL Normal 12.0-15.0 [facility] Comment on above: Performed By: #### L 501.080 #### [facility] [address] [place], [address] IG% 0.200 Normal 0.0-0.9 [facility] Comment on above: Result Comment: IG% - Immature Granulocytes (promyelocytes, myelocytes and metamyelocytes) > 1% indicates that a LEFT SHIFT is Present. Performed By: #### L 501.080 #### [facility] [address] [place], [address] Lymphocytes/100 WBC (Bld) 12.3 % Low 19-41 [facility] Comment on above: Performed By: #### L 501.080 #### [facility] [address] [place], [address] MCH (RBC) [Entitic mass] 27.8 pg Normal 27.0-32.0 [facility] Comment on above: Performed By: #### L 501.080 #### [facility] [address] [place], [address] MCHC (RBC) [Mass/Vol] 30.5 g/dL Low 32-36 [facility] Comment on above: Performed By: #### L 501.080 #### [facility] [address] [place], [address] MCV (RBC) [Entitic vol] 91.1 fL Normal 81-99 [facility] Comment on above: Performed By: #### L 501.080 #### [facility] [address] [place], [address] Monocytes/100 WBC (Bld) 2.8 % Normal 0-10 [facility] Comment on above: Performed By: #### L 501.080 #### [facility] [address] [place], [address] Neutrophils/100 WBC (Bld) 84.6 % High 47-70 [facility] Comment on above: Performed By: #### L 501.080 #### [facility] [address] [place], [address] Nucleated RBC (Bld) [#/Vol] 0 10*3/uL Normal 0-5 [facility] Comment on above: Performed By: #### L 501.080 #### [facility] [address] [place], [address] Platelet mean volume (Bld) [Entitic vol] 9.8 fL Normal 6.2-12.0 [facility] Comment on above: Performed By: #### L 501.080 #### [facility] [address] [place], [address] Platelets (Bld) [#/Vol] 167 10*3/uL Normal 150-450 [facility] Comment on above: Performed By: #### L 501.080 #### [facility] [address] [place], [place], [address] RBC (Bld) [#/Vol] 5.18 10*6/uL Normal 4.2-5.4 [facility] Comment on above: Performed By: #### L 501.080 #### [facility] [address] [place], [address] RDW SD 50.1 fl High 35.1-43.9 [facility] Comment on above: Performed By: #### L 501.080 #### [facility] [address] [place], [address] WBC (Bld) [#/Vol] 9.2 10*3/uL Normal 4.4-11.0 [facility] Comment on above: Performed By: #### L 501.080 #### [facility] [address] [place], [address] Foot min 3 Viewson Foot min 3 Views [facility] Imaging Services [address] [place] [address] Foot min 3 Views MR#: [id number] Acct: [id number] Name: TOD HUNT Rep #: [id number] : 1945 F 78 From: Joseph Araujo DO PCP: Dr. Socrates Spangler MD Status: ADM IN Study: Foot min 3 Views Date of Exam: 06/16/24 Exam# [id number] Ordering Dr: Azam Montgomery MD EXAM: Right [...] 2nd to the 5th toe. Reading Location: [facility]- CC: Dr. Socrates Spangler MD; Dr. Azam Montgomery MD Mellowing Machine Operator: Signed Normal [facility] Respiratory Cultureon 2024 RESPC List Antibiotics Las t 48 Hours? levofloxacin; zithromax; rocephin List Antibiotics to be Started? zithromax; rocephin Mixed normal respiratory hannah. No Streptococcus pneumoniae, beta-hemolytic Streptococcus or Staphylococcus aureus isolated. Normal [facility] Comment on above: Performed By: #### L 501.080 #### [facility] [address] [place], [address] Basic Metabolic Profile (BMP )on 06-15-2024 BUN/CRE 23.9 RATIO High 10-20 [facility] Comment on above: Performed By: #### L 500.2500, L100.0100 #### [facility] [address] [place], [address] Calcium [Mass/Vol] 9.0 mg/dL Normal 7.6-11.0 [facility] Comment on above: Performed By: #### L 500.2500, L100.0100 #### [facility] [address] [place], [address] Chloride [Moles/Vol] 102 mmol/L Normal 98-108 [facility] Comment on above: Performed By: #### L 500.2500, L100.0100 #### [facility] [address] [place], [address] CO2 [Moles/Vol] 26.8 mmol/L Normal 21.0-32.0 [facility] Comment on above: Performed By: #### L 500.2500, L100.0100 #### [facility] [address] [place], [address] Creatinine [Mass/Vol] 1.54 mg/dL High 0.70-1.20 [facility] Comment on above: Performed By: #### L 500.2500, L100.0100 #### [facility] [address] [place], [address] ECRCL 49.08 ml/min Low 50-250 [facility] Comment on above: Performed By: #### L 500.2500, L100.0100 #### [facility] [address] [place], [address] GAP 12 Normal 5-15 [facility] Comment on above: Performed By: #### L 500.2500, L100.0100 #### [facility] [address] [place], [address] GFR/1.73 sq M.predicted among non-blacks MDRD (S/P/Bld) [Vol rate/Area] 34 mL/min/{1.73_m2} Low >60 [facility] Comment on above: Result Comment: mL/m in/1.73m2 CKD-EPI Creatinine Equation (2020) Performed By: #### L 500.2500, L100.0100 #### [facility] [address] [place], [address] Glucose [Mass/Vol] 191 mg/dL High 70-99 [facility] Comment on above: Performed By: #### L 500.2500, L100.0100 #### [facility] [address] [place], [address] Potassium [Moles/Vol] 3.8 mmol/L Normal 3.3-5.1 [facility] Comment on above: Performed By: #### L 500.2500, L100.0100 #### [facility] [address] [place], [address] Sodium [Moles/Vol] 140 mmol/L Normal 133-145 [facility] Comment on above: Performed By: #### L 500.2500, L100.0100 #### [facility] [address] [place], [address] Urea nitrogen [Mass/Vol] 37 mg/dL High 4-19 [facility] Comment on above: Performed By: #### L 500.2500, L100.0100 #### [facility] [address] [place], [address] Bedside Glucoseon 06-15-2024 FINGERSTICK GLU 211 mg/dL High -106 [facility] Comment on above: Result Comment: ALEXIS GEMENT OF PATIENT CARE PER NURSING PROTOCOL Performed By: #### L 501.080 #### [facility] [address] [place], [address] FINGERSTICK GLU 207 mg/dL High -106 [facility] Comment on above: Result Comment: ALEXIS GEMENT OF PATIENT CARE PER NURSING PROTOCOL Performed By: #### L 500.2500, L100.0100 #### [facility] [address] [place], [address] FINGERSTICK GLU 188 mg/dL High -106 [facility] Comment on above: Result Comment: ALEXIS GEMENT OF PATIENT CARE PER NURSING PROTOCOL Performed By: #### L 500.2500, L100.0100 #### [facility] [address] [place], [address] FINGERSTICK GLU 230 mg/dL High -106 [facility] Comment on above: Result Comment: ALEXIS GEMENT OF PATIENT CARE PER NURSING PROTOCOL Performed By: #### L 501.080 #### [facility] [address] [place], [address] CBC W/Diff, Automatedon Absolute Lymph 1.44 X10 3/uL Normal 0.83-4.51 [facility] Comment on above: Performed By: #### L 500.2500, L100.0100 #### [facility] [address] [place], [address] Absolute Neut 8.6 X10 3/uL High 2.0-7.7 [facility] Comment on above: Performed By: #### L 500.2500, L100.0100 #### [facility] [address] [place], [address] Basophils/100 WBC (Bld) 0.1 % Normal 0-1 [facility] Comment on above: Performed By: #### L 500.2500, L100.0100 #### [facility] [address] [place], [address] Eosinophils/100 WBC (Bld) 0.0 % Normal 0-5 [facility] Comment on above: Performed By: #### L 500.2500, L100.0100 #### [facility] [address] [place], [address] Erythrocyte distribution width (RBC) [Ratio] 15.0 % High 11.6-14.6 [facility] Comment on above: Performed By: #### L 500.2500, L100.0100 #### [facility] [address] [place], [address] Hematocrit (Bld) [Volume fraction] 49.6 % High 37-47 [facility] Comment on above: Performed By: #### L 500.2500, L100.0100 #### [facility] [address] [place], [address] Hemoglobin (Bld) [Mass/Vol] 15.1 g/dL High 12.0-15.0 [facility] Comment on above: Performed By: #### L 500.2500, L100.0100 #### [facility] [address] [place], [address] IG% 0.400 Normal 0.0-0.9 [facility] Comment on above: Result Comment: IG% - Immature Granulocytes (promyelocytes, myelocytes and metamyelocytes) > 1% indicates that a LEFT SHIFT is Present. Performed By: #### L 500.2500, L100.0100 #### [facility] [address] [place], [address] Lymphocytes/100 WBC (Bld) 13.8 % Low 19-41 [facility] Comment on above: Performed By: #### L 500.2500, L100.0100 #### [facility] [address] [place], [address] MCH (RBC) [Entitic mass] 27.6 pg Normal 27.0-32.0 [facility] Comment on above: Performed By: #### L 500.2500, L100.0100 #### [facility] [address] [place], [address] MCHC (RBC) [Mass/Vol] 30.4 g/dL Low 32-36 [facility] Comment on above: Performed By: #### L 500.2500, L100.0100 #### [facility] [address] [place], [address] MCV (RBC) [Entitic vol] 90.7 fL Normal 81-99 [facility] Comment on above: Performed By: #### L 500.2500, L100.0100 #### [facility] [address] [place], [address] Monocytes/100 WBC (Bld) 3.0 % Normal 0-10 [facility] Comment on above: Performed By: #### L 500.2500, L100.0100 #### [facility] [address] [place], [address] Neutrophils/100 WBC (Bld) 82.7 % High 47-70 [facility] Comment on above: Performed By: #### L 500.2500, L100.0100 #### [facility] [address] [place], [address] Nucleated RBC (Bld) [#/Vol] 0 10*3/uL Normal 0-5 [facility] Comment on above: Performed By: #### L 500.2500, L100.0100 #### [facility] [address] [place], [address] Platelet mean volume (Bld) [Entitic vol] 9.5 fL Normal 6.2-12.0 [facility] Comment on above: Performed By: #### L 500.2500, L100.0100 #### [facility] [address] [place], [address] Platelets (Bld) [#/Vol] 177 10*3/uL Normal 150-450 [facility] Comment on above: Performed By: #### L 500.2500, L100.0100 #### [facility] [address] [place], [address] RBC (Bld) [#/Vol] 5.47 10*6/uL High 4.2-5.4 [facility] Comment on above: Performed By: #### L 500.2500, L100.0100 #### [facility] [address] [place], [address] RDW SD 50.6 fl High 35.1-43.9 [facility] Comment on above: Performed By: #### L 500.2500, L100.0100 #### [facility] [address] [place], [address] WBC (Bld) [#/Vol] 10.4 10*3/uL Normal 4.4-11.0 [facility] Comment on above: Performed By: #### L 500.2500, L100.0100 #### [facility] [address] [place], [address] Chest 1 View (Portable)on Chest 1 View (Portable) [facility] Imaging Services [address] [place] [address] Chest 1 View (Portable) MR#: [id number] Acct: [id number] Name: TOD HUNT Rep #: [id number] : 1945 F 78 From: Luis Golden MD PCP: Dr. Socrates Spangler MD Status: ADM IN Study: Chest 1 View (Portable) Date of Exam: 06/15/24 Exam# [id number] Ordering Dr: Azam Montgomery MD EXAM: XR [...] Superimposed pneumonia cannot be excluded. Reading Location: [facility] CC: Dr. Socrates Spangler MD; Dr. Azam Montgomery MD Mellowing Machine Operator: Signed Normal [facility] Electrocardiogram reportOrde red By: Shun Luciano on 06-15-2024 EKG study [facility] Cardiovascular Services [address] [place] [address] 12 Lead EKG 06/13/241956 MR#: [id number] Acct: [id number] Name: TOD HUNT Rep #:[id number] : 1945 78 From: Shun Luciano MD Attending Dr: Dr. Azam Montgomery MD Status: ADM IN Ordering Dr: Gabriel [place] DO Date: 05/08 Location: U Sex: F C Admitted: 06/13/24 [...] Abnormal ECG Confirmed by SHUN LUCIANO MD ([id number]), communications editor BETHEL PALMA ([id number]) on 06/15/2024 9:23:38 AM Referred By: FRANK Confirmed By: SHUN LUCIANO MD 06/15/24 0923 Date _ Shun Luciano MD CC: Dr. Socrates Spangler MD; Dr. Azam Montgomery MD; Dr. Gabriel [place]ucker, DO ~ Signed [facility] Work Phone: Gram Stainon 06-15-2024 List Antibiotics Las t 48 Hours? levofloxacin; zithromax; rocephin List Antibiotics to be Started? zithromax; rocephin Acceptable Specimen? Yes (<25 Epithelial cells per/lpf) Gram Stain 1+ Gram positive rods Rare Epithelial cells Rare White Blood Cells Normal [facility] Comment on above: Performed By: #### L 501.080 #### [facility] [address] [place], [address] Magnesiumon 06-15-2024 Magnesium [Mass/Vol] 1.7 mg/dL Normal 1.5-2.2 [facility] Comment on above: Performed By: #### L 500.2500, L100.0100 #### [facility] [address] [place], [place], [address] Arterial patency Wrist arter y --pre arterial punctureOrdered By: Estela Staton on 06-14-2024 Shirin Test Positive [facility] Base excess Calc (BldV) [Mol es/Vol]Ordered By: Estela Staton on 06-14-2024 Blood Gas Base Excess 4 mmol/L High -2-2 [facility] Bedside Glucoseon 06-14-2024 FINGERSTICK GLU 195 mg/dL High 74-106 [facility] Comment on above: Result Comment: ALEXIS BAE OF PATIENT CARE PER NURSING PROTOCOL Performed By: #### L 501.080 #### [facility] [address] [place], [address] FINGERSTICK GLU 235 mg/dL High 74-106 [facility] Comment on above: Result Comment: ALEXIS GEMENT OF PATIENT CARE PER NURSING PROTOCOL Performed By: #### L 500.2500, L100.0100 #### [facility] [address] [place], [address] FINGERSTICK GLU 204 mg/dL High 74-106 [facility] Comment on above: Result Comment: ALEXIS GEMENT OF PATIENT CARE PER NURSING PROTOCOL Performed By: #### L 501.080 #### [facility] [address] [place], [address] FINGERSTICK GLU 218 mg/dL High 74-106 [facility] Comment on above: Result Comment: ALEXIS GEMENT OF PATIENT CARE PER NURSING PROTOCOL Performed By: #### L 501.080 #### [facility] [address] [place], [address] Bilirubin, totalOrdered By: Estela Staton on 06-14-2024 Bilirubin [Mass/Vol] 0.41 mg/dL 0.00-1.30 [facility] SHIRIN TEST Positive Normal [facility] Comment on above: Performed By: #### L 501.080 #### [facility] [address] [place], [address] Base excess Calc (Bld) [Moles/Vol] 4 mmol/L High -2 to +2 [facility] Comment on above: Performed By: #### L 501.080 #### [facility] [address] [place], [address] Blood Gas Type ART Normal [facility] Comment on above: Performed By: #### L 501.080 #### [facility] [address] [place], [address] CO2 [Moles/Vol] 32 mmol/L Normal [facility] Comment on above: Performed By: #### L 501.080 #### [facility] [address] [place], [address] FI02 30.0 Normal [facility] Comment on above: Performed By: #### L 501.080 #### [facility] [address] [place], [address] HCO3 (Bld) [Moles/Vol] 29.9 mmol/L High 22-26 [facility] Comment on above: Performed By: #### L 501.080 #### [facility] [address] [place], [address] Mode Not entered Normal [facility] Comment on above: Performed By: #### L 501.080 #### [facility] [address] [place], [address] O2 Delivery Dev BiPAP Normal [facility] Comment on above: Performed By: #### L 501.080 #### [facility] [address] [place], [address] pCO2 60.2 mmHg High 35-45 [facility] Comment on above: Performed By: #### L 501.080 #### [facility] [address] [place], [address] PEEP 10 Normal [facility] Comment on above: Performed By: #### L 501.080 #### [facility] [address] [place], [address] pH (Bld) 7.30 [pH] Low 7.35-7.45 [facility] Comment on above: Performed By: #### L 501.080 #### [facility] [address] [place], [address] PIP 20 Normal [facility] Comment on above: Performed By: #### L 501.080 #### [facility] [address] [place], [address] PO2 70 mmHG Low 75-100 [facility] Comment on above: Performed By: #### L 501.080 #### [facility] [address] [place], [address] RR 12 Normal [facility] Comment on above: Performed By: #### L 501.080 #### [facility] [address] [place], [address] SITE R Radial Normal [facility] Comment on above: Performed By: #### L 501.080 #### [facility] [address] [place], [address] SO2 92 Low 95-99 [facility] Comment on above: Performed By: #### L 501.080 #### [facility] [address] [place], [address] Blood bicarbonate measuremen tOrdered By: Estela Staton on 06-14-2024 Blood Gas Bicarbonate Actual 29.9 mmol/L High 22-26 [facility] CBC W/Diff, Automatedon 0 Platelets (Bld) [#/Vol] 101 10*3/uL Low 150-450 [facility] Comment on above: Performed By: #### L 501.080 #### [facility] [address] [place], [address] Calculated very low density lipoprotein (VLDL) cholesterol measurementOrdered By: Estela Staton on 06-14-2024 VLDL Cholesterol 13 mg/dL 5-40 [facility] Comprehensive Metabolic Prof ilon 06-14-2024 Albumin [Mass/Vol] 3.2 g/dL Low 3.4-4.8 [facility] Comment on above: Performed By: #### L 501.080 #### [facility] [address] [place], [address] Albumin/Globulin [Mass ratio] 1.2 {ratio} Normal 0.9-2.4 [facility] Comment on above: Performed By: #### L 501.080 #### [facility] [address] [place], [address] ALK PHOS 107 U/L High 35-104 [facility] Comment on above: Performed By: #### L 501.080 #### [facility] [address] [place], [address] ALT [Catalytic activity/Vol] 19 U/L Normal <=34 [facility] Comment on above: Performed By: #### L 501.080 #### [facility] [address] [place], [address] AST [Catalytic activity/Vol] 32 U/L Normal <=31 [facility] Comment on above: Result Comment: Hemo lysis present, Results??could be affected. ?? Performed By: #### L 501.080 #### [facility] [address] [place], [address] Bilirubin [Mass/Vol] 0.41 mg/dL Normal 0.00-1.30 [facility] Comment on above: Performed By: #### L 501.080 #### [facility] [address] [place], [address] BUN/CRE 22.6 RATIO High 10-20 [facility] Comment on above: Performed By: #### L 501.080 #### [facility] [address] [place], [address] Calcium [Mass/Vol] 9.0 mg/dL Normal 7.6-11.0 [facility] Comment on above: Performed By: #### L 501.080 #### [facility] [address] [place], [address] Chloride [Moles/Vol] 105 mmol/L Normal 98-108 [facility] Comment on above: Performed By: #### L 501.080 #### [facility] [address] [place], [address] CO2 [Moles/Vol] 19.3 mmol/L Low 21.0-32.0 [facility] Comment on above: Performed By: #### L 501.080 #### [facility] [address] [place], [address] Creatinine [Mass/Vol] 1.41 mg/dL High 0.70-1.20 [facility] Comment on above: Performed By: #### L 501.080 #### [facility] [address] [place], [address] ECRCL 53.62 ml/min Normal 50-250 [facility] Comment on above: Performed By: #### L 501.080 #### [facility] [address] [place], [address] GAP 16 High 5-15 [facility] Comment on above: Performed By: #### L 501.080 #### [facility] [address] [place], [address] GFR/1.73 sq M.predicted among non-blacks MDRD (S/P/Bld) [Vol rate/Area] 38 mL/min/{1.73_m2} Low >60 [facility] Comment on above: Result Comment: mL/m in/1.73m2 CKD-EPI Creatinine Equation (2020) Performed By: #### L 501.080 #### [facility] [address] [place], [address] Globulin (S) [Mass/Vol] 2.7 g/dL Normal 2.2-4.2 [facility] Comment on above: Performed By: #### L 501.080 #### [facility] [address] [place], [address] Glucose [Mass/Vol] 221 mg/dL High 70-99 [facility] Comment on above: Performed By: #### L 501.080 #### [facility] [address] [place], [address] Potassium [Moles/Vol] 4.8 mmol/L Normal 3.3-5.1 [facility] Comment on above: Result Comment: Hemo lysis present, Results??could be affected. ?? Performed By: #### L 501.080 #### [facility] [address] [place], [address] Sodium [Moles/Vol] 140 mmol/L Normal 133-145 [facility] Comment on above: Performed By: #### L 501.080 #### [facility] [address] [place], [address] T PROT 5.9 g/dL Normal 5.9-8.4 [facility] Comment on above: Performed By: #### L 501.080 #### [facility] [address] [place], [address] Urea nitrogen [Mass/Vol] 32 mg/dL High 4-19 [facility] Comment on above: Performed By: #### L 501.080 #### [facility] [address] [place], [address] Determination of fraction of inspired oxygenOrdered By: Estela Staton on 06-14-2024 Blood Gas Oxygen Percent 30.0 [facility] Echo Complete W/ Contraston 06-14-2024 Echo Complete W/ Contrast [facility] [address] [place] [address] Echo Complete W/ Contrast 06/14/24 0854 MR#: [id number] Acct: [id number] Name: TOD HUNT Rep #: [id number] : 1945 78 From: Shun Luciano MD [...] Spangler Performed By: Stephenie Gerardo, ALYSSIA, RVT 06/14/24 1140 Date Shun Luciano MD CC: Dr. Estela Staton MD; Dr. Socrates Spangler MD; Dr. Azam Montgomery MD Date Dictated: 06/14/24 0854 Date Transcribed: 06/14/24 1140 Mellowing Machine Operator: Signed Normal [facility] Echocardiogram study reportO rdered By: Shun Luciano on 06-14-2024 Study report [facility] [address] [address] Echo Complete W/ Contrast 06/14/24853 MR#: [id number] Acct: [id number] Name: TOD HUNT Rep #:[id number] : 1945 78 From: Shun Alarcon Attending Dr: Dr. Azam Montgomery MD Status: ADM IN Ordering Dr: Estela Staton MD Date: 06/14/24 Location: [facility] Sex: F C Admitted: 06/13/24 Reason For [...] Spangler Performed By: Stephenie Gerardo, ALYSSIA, RVT 06/14/24 1140 Date _ Shun Luciano MD CC: Dr. Estela Staton MD; Dr. Socrates Spangler MD; Dr. Azam Montgomery MD ~ Date Dictated: 06/14/24 0854 Date Transcribed: 06/14/24 1140 Mellowing Machine Operator: Signed [facility] Work Phone: Gram stainOrdered By: Estela Staton on 06-14-2024 Microscopic observation Gram stain Nom (Unsp spec) [facility] L. pneumophila Ag Ql (U)Orde red By: Estela Staton on 06-14-2024 Legionella Antigen [facility] [facility] L499.0043on 06-14-2024 Trop T High Sen 51 ng/L High <=14 [facility] Comment on above: Performed By: #### L 500.2500, L100.0100 #### [facility] [address] [place], [address] L509.7001on 06-14-2024 Procalcitonin 0.06 ng/mL Normal <=0.10 [facility] Comment on above: Result Comment: Inte rpretation: [...] Performed By: #### L 500.2500, L100.0100 #### [facility] [address] [facility] [place], [place], [id number] LDL calc ser/plasOrdered By: Estela Staton on 06-14-2024 LDL Cholesterol, Calculated 56 mg/dL [facility] Comment on above: Uudbhzkekp=400-738 m g/dL & Higher Zlfa=358 mg/dL or greater Laboratory - Chemistry and C hemistry - challengeOrdered By: Estela Staton on 06-14-2024 AST [Catalytic activity/Vol] 32 U/L <32 [facility] Comment on above: Hemolysis present, R esults could be affected. Legionella Antigen Urineon 0 06-14-2024 LEGU URINE, HILL Legionella Antigen result interpretation: L pneumo Ag Ur Ql Negative Presumptive negative for Legionella pneumophila serogroup 1 antigen in urine, suggesting no recent or current infection. Legionella Ag, Urine Negative (See interpretation below) Normal [facility] Comment on above: Performed By: #### L 400.0001 #### [facility] [address] [place], [address] Lipid Profileon 06-14-2024 CHOL:HDL 3.01 Normal [facility] Comment on above: Performed By: #### L 501.080 #### [facility] [address] [place], [address] Cholesterol [Mass/Vol] 104 mg/dL Normal <=200 [facility] Comment on above: Result Comment: Chol esterol level, Desirable <200 mg/dL Borderline high cholesterol 200-239 mg/dL High cholesterol >=240 mg/dL Recommendations of the NCEP Adult Treatment Panel for the following risk-cutoff thresholds for the [place] population. Performed By: #### L 501.080 #### [facility] [address] [place], [address] Cholesterol in HDL [Mass/Vol] 35 mg/dL Low [facility] Comment on above: Result Comment: Sofia onal Cholesterol Education Program (NCEP) guidelines: <40 mg/dL: Low HDL-cholesterol (major risk factor for CHD) >= 60 mg/dL: High HDL-cholesterol (negative risk factor for CHD) HDL-cholesterol is affected by a number of factors, e.g. smoking, exercise, hormones, sex and age. Performed By: #### L 501.080 #### [facility] [address] [place], [address] Cholesterol in LDL [Mass/Vol] 56 mg/dL Normal [facility] Comment on above: Result Comment: Bord lpdolh=051-099 mg/dL Higher Ztpb=247 mg/dL or greater Performed By: #### L 501.080 #### [facility] [address] [place], [address] Cholesterol in VLDL [Mass/Vol] 13 mg/dL Normal 5-40 [facility] Comment on above: Performed By: #### L 501.080 #### [facility] [address] [place], [address] Triglyceride [Mass/Vol] 65 mg/dL Normal [facility] Comment on above: Result Comment: The drugs N-Acetylcysteine and Metamizole may falsely depress this assay. Normal range: <150 mg/dL Borderline High: 150-199 mg/dL High: 200-499 mg/dL Very High: >500 mg/dL Performed By: #### L 501.080 #### [facility] [address] [place], [place], [id number] Microorganism identified Cx Nom (Unsp spec)Ordered By: Estela Staton on 06-14-2024 Respiratory Culture or Staphylococcus au reus isolated. [facility] No Panel InformationOrdered By: Estela Staton on 06-14-2024 Bedside Blood Gas PEEP 10 [facility] Bld Gas Peak Inspiratory Pressure 20 [facility] Blood Gas Respiration Rate 12 [facility] Blood Gas Sample Site R Radial [facility] Blood Gas Specimen Type ART [facility] Blood Gas Vent Mode Not entered [facility] Oxygen Delivery Device BiPAP [facility] Procalcitonin 0.06 ng/mL <0.11 [facility] Comment on above: Interpretation:<0.10 -0.25 ng/mL: Antibiotic [...] Gas Oxygen Saturation 92 % Low 95-99 [facility] Partial pressure of carbon d ioxide measurementOrdered By: Estela Staton on 06-14-2024 Arterial Blood Partial Pressure CO2 60.2 mmHg High 35-45 [facility] Partial pressure of oxygen m easurementOrdered By: Estela Staton on 06-14-2024 Arterial Blood Partial Pressure O2 70 mmHG Low 75-100 [facility] RESPIRATORY PANEL MOLECULARo n 06-14-2024 RP PANEL ADENOVIRUS Not Detected INFLUENZA A Not Detected INFLUENZA A (SUBTYPE H1) Not Detected INFLUENZA A (SUBTYPE H3) Not Detected INFLUENZA B Not Detected HUMAN METAPHNEUMO Not Detected PARAINFLUENZA 1 Not Detected PARAINFLUENZA 2 Not Detected PARAINFLUENZA 3 Not Detected PARAINFLUENZA 4 Not Detected RHINOVIRUS Not Detected RSV A Not Detected RSV B Not Detected Normal [facility] Comment on above: Performed By: #### L 400.0001 #### [facility] [place], [address] Screening total cholesterol/ high density lipoprotein (HDL) cholesterol ratioOrdered By: Estela Staton on 06-14-2024 Cholesterol.total/Dora sterol in HDL [Mass ratio] 3.01 {ratio} [facility] Serum globulin measurementOr dered By: Estela Staton on 06-14-2024 Globulin (S) [Mass/Vol] 2.7 g/dL 2.2-4.2 [facility] Serum or plasma alanine aguirre otransferase (ALT) measurementOrdered By: Estela Staton on 06-14-2024 ALT [Catalytic activity/Vol] 19 U/L <35 [facility] Serum or plasma albumin kezia urement (mass/volume)Ordered By: Estela Staton on 06-14-2024 Albumin [Mass/Vol] 3.2 g/dL Low 3.4-4.8 [facility] Serum or plasma albumin/glob ulin mass ratioOrdered By: Estela Staton on 06-14-2024 Albumin/Globulin [Mass ratio] 1.2 {ratio} 0.9-2.4 [facility] Serum or plasma alkaline dawood sphatase measurementOrdered By: Estela Staton 06-14-2024 ALP [Catalytic activity/Vol] 107 U/L High 35-104 [facility] Serum or plasma cholesterol in HDL measurement (mass/volume)Ordered By: Estela Staton 06-14-2024 Cholesterol in HDL [Mass/Vol] 35 mg/dL Low >40 [facility] Comment on above: National Cholesterol Education Program (NCEP) guidelines:<40 mg/dL: Low HDL-cholesterol (major risk factor for CHD)>= 60 mg/dL: High HDL-cholesterol (negative risk factor for CHD)HDL-cholesterol is affected by a number of factors, e.g. smoking, exercise, hormones, sex and age. Serum or plasma cholesterol measurement (mass/volume)Ordered By: Estela Staton on 06-14-2024 Cholesterol [Mass/Vol] 104 mg/dL <201 [facility] Comment on above: Cholesterol level, D esirable <200 mg/dLBorderline high cholesterol 200-239 mg/dLHigh cholesterol >=240 mg/dLRecommendations of the NCEP Adult Treatment Panel for the following risk-cutoff thresholds for the [place] population. Strep pneumoniae Antig(UR,CS F)on 06-14-2024 STPAG URINE INTERPRETATION Strep pneumoniae Antig(UR,CSF) Strep pneumoniae Antig(UR,CSF) Negative Urine Presumptive negative for pneumococcal pneumonia, suggesting no current or recent pneumococcal infection. Infection due to S pneumoniae cannot be ruled out since the antigen present in the sample may be below the detection limit of the test. Strep pneumo Test Negative URINE (See interpretation below) Normal [facility] Comment on above: Performed By: #### L 400.0001 #### [facility] [address] [facility] [place] [id number] Streptococcus pneumoniae ant igen assayOrdered By: Estela Staton on 06-14-2024 Streptococcus pneumoniae Antigen (M [facility] T4 Free Directon 06-14-2024 T4 FREE DIRECT 1.30 ng/dL Normal 0.76-1.46 [facility] Comment on above: Performed By: #### L 501.080 #### [facility] [address] [facility] [address] T4 freeOrdered By: Estela Schultz ite on 06-14-2024 Free T4 [Mass/Vol] 1.30 ng/dL 0.76-1.46 [facility] TSH DL <= 0.005 mIU/L QnOrde red By: Estela Staton on 06-14-2024 Thyroid Stimulating Hormone (TSH) 1.690 uIU/mL 0.300-4.200 [facility] Thyroid Stim Hormone (TSH)on 06-14-2024 TSH 1.690 uIU/mL Normal 0.300-4.200 [facility] Comment on above: Performed By: #### L 501.080 #### [facility] [address] [facility]. [facility] [address] Total carbon dioxide measure mentOrdered By: Estela Staton on 06-14-2024 Blood Gas Total CO2 32 mmol/L [facility] Total proteinOrdered By: Cindy Staton on 06-14-2024 Protein [Mass/Vol] 5.9 g/dL 5.9-8.4 [facility] Triglycerides measurementOrd ered By: Estela Brionna on 06-14-2024 Triglyceride [Mass/Vol] 65 mg/dL <199 [facility] Comment on above: The drugs N-Acetylcy steine and Metamizole may falsely depress this assay. Normal range: <150 mg/dLBorderline High: 150-199 mg/dLHigh: 200-499 mg/dLVery High: >500 mg/dL Troponin T.cardiac High sens itivity method [Mass/Vol]Ordered By: Gabriel Rucker on 06-14-2024 Troponin T High Sensitivity 4 Hour 51 ng/L High <14 [facility] pH (Unsp spec)Ordered By: Alannah Staton on 06-14-2024 Blood Gas pH 7.30 Low 7.35-7.45 [facility] 12 Lead EKGon 06-13-2024 12 Lead EKG [facility] Cardiovascular Services [address] [place] [address] 12 Lead EKG 06/13/241956 MR#: [id number] Acct: [id number] Name: TOD HUNT Rep #: [id number] : 1945 78 From: Shun Luciano MD Attending Dr: Dr. Azam Montgomery MD Status: ADM IN Ordering Dr: Gabriel Rucker DO Date: 06/13/24 Location: [facility] Sex: F C Admitted: 06/13/24 Test Reason [...] Abnormal ECG Confirmed by SHUN LUCIANO MD ([id number]), communications editor BETHEL PALMA ([id number]) on 06/15/2024 9:23:38 AM Referred By: FRANK Confirmed By: SHUN LUCIANO MD 06/15/24 0923 Date Shun Luciano MD CC: Dr. Socrates Spangler MD; Dr. Azam Montgomery MD; Dr. Gabriel Rucker DO Signed Normal [facility] Absolute neutrophil countOrd ered By: Gabriel Rucker on 06-13-2024 Neutrophils (Bld) [#/Vol] 6.2 10*3/uL 2.0-7.7 [facility] Anion gap in Serum or Plasma Ordered By: Gabriel Rucker on 06-13-2024 Anion gap [Moles/Vol] 10 mmol/L 5-15 [facility] Assessment of wrist artery p atency prior to arterial punctureOrdered By: Gabriel Rucker on 06-13-2024 Shirin Test Positive Normal [facility] Comment on above: Performed By: #### L 9000.0800 #### [facility] [address] [facility] [address] Atypical lymphocyte percenta geOrdered By: Gabriel Rucker on 06-13-2024 Atypical Lymphocytes 2+ % [facility] BUN/creatinine ratioOrdered By: Gabriel Rucker on 06-13-2024 Urea nitrogen/Creatinine [Mass ratio] 24.6 mg/mg High [facility] Base excess Calc (BldV) [Mol es/Vol]Ordered By: Gabriel Rucker on 06-13-2024 Blood Gas Base Excess 2 mmol/L -2-2 [facility] Basic Metabolic Profile (BMP )on 06-13-2024 BUN/CRE 24.6 RATIO High 10 [facility] Comment on above: Performed By: #### L 501.080 #### [facility] [address] [place], [address] Calcium [Mass/Vol] 9.1 mg/dL Normal 7.6-11.0 [facility] Comment on above: Performed By: #### L 501.080 #### [facility] [address] [place], [address] Chloride [Moles/Vol] 104 mmol/L Normal 98-108 [facility] Comment on above: Performed By: #### L 501.080 #### [facility] [address] [place], [address] CO2 [Moles/Vol] 26.5 mmol/L Normal 21.0-32.0 [facility] Comment on above: Performed By: #### L 501.080 #### [facility] [address] [place], [address] Creatinine [Mass/Vol] 1.14 mg/dL Normal 0.70-1.20 [facility] Comment on above: Performed By: #### L 501.080 #### [facility] [address] [place], [address] ECRCL 61.75 ml/min Normal 50-250 [facility] Comment on above: Performed By: #### L 501.080 #### [facility] [address] [place], [address] GAP 10 Normal 5-15 [facility] Comment on above: Performed By: #### L 501.080 #### [facility] [address] [place], [address] GFR/1.73 sq M.predicted among non-blacks MDRD (S/P/Bld) [Vol rate/Area] 49 mL/min/{1.73_m2} Low >60 [facility] Comment on above: Result Comment: mL/m in/1.73m2 CKD-EPI Creatinine Equation (2020) Performed By: #### L 501.080 #### [facility] [address] [place], [address] Glucose [Mass/Vol] 154 mg/dL High 70-99 [facility] Comment on above: Performed By: #### L 501.080 #### [facility] [address] [place], [address] Potassium [Moles/Vol] 4.2 mmol/L Normal 3.3-5.1 [facility] Comment on above: Performed By: #### L 501.080 #### [facility] [address] [place], [address] Sodium [Moles/Vol] 141 mmol/L Normal 133-145 [facility] Comment on above: Performed By: #### L 501.080 #### [facility] [address] [place], [address] Urea nitrogen [Mass/Vol] 28 mg/dL High 4-19 [facility] Comment on above: Performed By: #### L 501.080 #### [facility] [address] [place], [address] Basophil percentageOrdered B y: Gabriel Ungsussy on 06-13-2024 Basophils/100 WBC (Bld) 0.3 % 0-1 [facility] Bilirubin Test strip Ql (U)O rdered By: Estela Staton on 06-13-2024 Bilirubin Ql (U) Negative Negative [facility] Blood Gases by CPSon 025 Base excess Calc (Bld) [Moles/Vol] 2 mmol/L Normal -2 to +2 [facility] Comment on above: Performed By: #### L 9000.0800 #### [facility] [address] [place], [address] Blood Gas Type ART Normal [facility] Comment on above: Performed By: #### L 9000.0800 #### [facility] [address] [place], [address] CO2 [Moles/Vol] 31 mmol/L Normal [facility] Comment on above: Performed By: #### L 9000.0800 #### [facility] [address] [place], [address] Comment 20/10 cmH2O Normal [facility] Comment on above: Performed By: #### L 9000.0800 #### [facility] [address] [place], [address] FI02 40.0 Normal [facility] Comment on above: Performed By: #### L 9000.0800 #### [facility] [address] [place], [address] HCO3 (Bld) [Moles/Vol] 28.9 mmol/L High 22-26 [facility] Comment on above: Performed By: #### L 9000.0800 #### [facility] [address] [place], [address] Mode Not entered Normal [facility] Comment on above: Performed By: #### L 9000.0800 #### [facility] [address] [place], [address] O2 Delivery Dev BiPAP Normal [facility] Comment on above: Performed By: #### L 9000.0800 #### [facility] [address] [place], [address] pCO2 60.6 mmHg High 35-45 [facility] Comment on above: Performed By: #### L 9000.0800 #### [facility] [address] [place], [address] pH (Bld) 7.29 [pH] Low 7.35-7.45 [facility] Comment on above: Performed By: #### L 9000.0800 #### [facility] [address] [place], [address] PO2 81 mmHG Normal 75-100 [facility] Comment on above: Performed By: #### L 9000.0800 #### [facility] [address] [place], [address] RR 12 Normal [facility] Comment on above: Performed By: #### L 9000.0800 #### [facility] [address] [place], [address] SITE L Radial Normal [facility] Comment on above: Performed By: #### L 9000.0800 #### [facility] [address] [place], [address] SO2 94 Low 95-99 [facility] Comment on above: Performed By: #### L 9000.0800 #### [facility] [address] [place], [address] Blood bicarbonate measuremen tOrdered By: Gabriel Rucker on 06-13-2024 Blood Gas Bicarbonate Actual 28.9 mmol/L High 22-26 [facility] Blood cultureOrdered By: Michaela Rucker on 06-13-2024 Bacteria identified Cx Nom (Bld) No growth in 5 days. [facility] CBC W/Diff, Automatedon 04-0 ATYPICAL LYMPH 2+ Normal [facility] Comment on above: Performed By: #### L 501.080 #### [facility] [address] [place], [address] REACTIVE LYMPH 1+ Normal [facility] Comment on above: Performed By: #### L 501.080 #### [facility] [address] [place], [address] Carbon dioxide, total [Moles /volume] in Central venous bloodOrdered By: Gabriel Rucker on 06-13-2024 CO2 [Moles/Vol] 26.5 mmol/L 21.0-32.0 [facility] Chest 1 View (Portable)on Chest 1 View (Portable) [facility] Imaging Services [address] [place] [address] Chest 1 View (Portable) MR#: [id number] Acct: [id number] Name: TOD HUNT Rep #: [id number] : 1945 F 78 From: Jan Medeiros DO PCP: Dr. Socrates Spangler MD Status: REG ER Study: Chest 1 View (Portable) Date of Exam: 06/13/24 Exam# [id number] Ordering Dr: Gabriel Rucker DO PROCEDURE: CHEST [...] infection. Small left pleural effusion. [facility] CC: Dr. Socrates Spangler MD; Dr. 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 Normal [facility] Chloride assayOrdered By: Zena Rucker on 06-13-2024 Chloride [Moles/Vol] 104 mmol/L 98-108 [facility] D-Dimer Quantitative (DVT/PE )on 06-13-2024 D-DIMER QUANT 1.63 FEU/ug/m Invalid Interpretation Code 0.27-0.49 [facility] Comment on above: Order Comment: CRITI RUDI VALUE CALLED TO [facility]204/05/08 Joanna Meier.RESULTS READ BACK BY SAME. Result Comment: D-Di pearl ELEVATED (>0.49): Additional studies and clinical assessments are indicated to conclude diagnosis of: Deep Vein Thrombosis (DVT) or Pulmonary Embolism (PE) Performed By: #### L 501.080 #### [facility] Laboratory [facility] [place], [address] D-dimer measurement for deep venous thrombosisOrdered By: Gabriel Rucker on 06-13-2024 D-Dimer Quantitative (PE/DVT) 1.63 FEU/ug/m High 0.27-0.49 [facility] Comment on above: D-Dimer ELEVATED (>0 .49): Additional studies and clinicalassessments are indicated to conclude diagnosis of:Deep Vein Thrombosis (DVT) or Pulmonary Embolism (PE) Determination of fraction of inspired oxygenOrdered By: Gabriel Rucker on 06-13-2024 Blood Gas Oxygen Percent 40.0 [facility] Emergency Department Summary on 06-13-2024 Emergency Department Summary [facility] Medical Records Department [address] [place] [address] Emergency Department Summary 06/13/24 MR#: [id number] Acct: [id number] Name: TOD HUNT Rep #: [id number] : 1945 78 From: Gabriel Rucker DO PCP: Dr. Socrates Spangler MD Status:ADM IN Location: [address] History of Present Illness Chief Complaint: [...] any fever. Denies recent travel or surgery. [facility] Medical History (Updated 06/13/24 @ 21:29 by [...] Axillary Pul (more content not included)... Normal [facility] Eosinophil percentageOrdered By: Gabriel Rucker on 06-13-2024 Eosinophils/100 WBC (Bld) 0.7 % 0-5 [facility] Epithelial cells.squamous LM Ql (Urine sed)Ordered By: Estela White on 06-13-2024 Epithelial cells.squamous LM.HPF (Urine sed) [#/Area] 0 /[HPF] 5-10 [facility] Erythrocyte distribution wid th (RBC) [Ratio]Ordered By: Gabriel Rucker on 06-13-2024 Erythrocyte distribution width (RBC) [Entitic vol] 50.9 fL High 35.1-43.9 [facility] Erythrocyte distribution wid th ratioOrdered By: Gabriel Rucker on 06-13-2024 Erythrocyte distribution width (RBC) [Ratio] 15.3 % High 11.6-14.6 [facility] Estimation of creatinine alex aranceOrdered By: Gabriel Rucker on 06-13-2024 Estimated Creatinine Clearance Calc 61.75 ml/min 50-250 [facility] GFR/1.73 sq M.predicted bradford g non-blacks MDRD (S/P/Bld) [Vol rate/Area]Ordered By: Gabriel Rucker on 06-13-2024 Estimated GFR (MDRD) Non-Af Amer 49 Low >60 [facility] Comment on above: mL/min/1.73m2 CKD-EP I Creatinine Equation (2020) Glucose Ql (U)Ordered By: Alannah Staton on 06-13-2024 Glucose (U) [Mass/Vol] 1000 mg/dL High Normal [facility] H AND P Exam - Hospitaliston 06-13-2024 H&P Exam - Hospitalist [facility] Medical Records Department [address] [place] [address] H P Exam - Hospitalist 06/13/242126 MR#: [id number] Acct: [id number] Name: TOD HUNT Rep #: [id number] : 1945 78 From: Estela Staton MD PCP: Dr. Socrates Spangler MD Status:ADM IN Location: [place] [address] HPI - General General Date of Admission: [...] Allergic rhinitis, GERD who presents to the [facility] ED on 06/13/24 with history of dyspnea, [...] 1, levaquin 750 mg IV x 1. [facility] Medical History CKD (chronic kidney disease), stage [...] does no (more content not included)... Normal [facility] Hematocrit Auto (Bld) [Volum e fraction]Ordered By: Gabriel Rucker on 06-13-2024 Hematocrit (Bld) [Volume fraction] 53.3 % High 37-47 [facility] Hemoglobin measurementOrdere d By: Gabriel Rucker on 06-13-2024 Hemoglobin (Bld) [Mass/Vol] 16.1 g/dL High 12.0-15.0 [facility] Immature granulocytes/100 WB C Auto (Bld)Ordered By: Gabriel Rucker on 06-13-2024 Immature granulocytes/100 WBC (Bld) 0.300 % 0.0-0.9 [facility] Comment on above: IG% - Immature Granu locytes (promyelocytes, myelocytes and metamyelocytes) > 1% indicates that a LEFT SHIFT is Present. Influenza virus A and B and SARS-CoV-2 (COVID-19) and Respiratory syncytial virus RNAOrdered By: Gabriel Rucker on 06-13-2024 SARS-CoV-2 (COVID-19) RNA SAMMY+probe Ql (Unsp spec) [facility] Ketones Test strip Ql (U)Ord ered By: Estela White on 06-13-2024 Ketones Ql (U) Negative Negative [facility] L499.0042on 06-13-2024 Trop T High Sen 45 ng/L High <=14 [facility] Comment on above: Performed By: #### L 501.080 #### [facility] Laboratory [address] [facility] [facility], [address] L501.4021on 06-13-2024 Trop T High Sen 34 ng/L High <=14 [facility] Comment on above: Performed By: #### L 501.080 #### [facility] [address] [place], [address] L503.7505on 06-13-2024 Natriuretic peptide B (Bld) [Mass/Vol] 01575 pg/mL High <=1800 [facility] Comment on above: Result Comment: Hear t Failure Unlikely: < 300 pg/mL Heart Failure Likely < 50 Years: > 450 pg/mL 50-75 Years: > 900 pg/mL >75 Years: > 1800 pg/mL Performed By: #### L 501.080 #### [facility] [address] [facility], [address] Laboratory - Chemistry and C hemistry - challengeOrdered By: Gabriel Rucker on 06-13-2024 Natriuretic peptide B (Bld) [Mass/Vol] 68597 pg/mL High <1800 [facility] Comment on above: Heart Failure Unlike ly: < 300 pg/mLHeart Failure Likely< 50 Years: > 450 pg/mL50-75 Years: > 900 pg/mL>75 Years: > 1800 pg/mL Lactic Acidon 06-13-2024 Lactate [Moles/Vol] 1.4 mmol/L Normal 0.0-2.0 [facility] Comment on above: Order Comment: Y Performed By: #### L 501.080 #### [facility] [address] [place], [address] Lactic acid measurementOrder ed By: Gabriel Rucker on 06-13-2024 Lactate [Moles/Vol] 1.4 mmol/L 0.0-2.0 [facility] Lymphocytes Auto (Unsp spec) [#/Vol]Ordered By: Gabriel Rucker on 06-13-2024 Lymphocytes (Bld) [#/Vol] 8.27 10*3/uL High 0.83-4.51 [facility] Lymphocytes/100 WBC Auto (Un sp spec)Ordered By: Gabriel Rucker on 06-13-2024 Lymphocytes/100 WBC (Bld) 53.9 % High 19-41 [facility] M100.678on 06-13-2024 M100.678 Pending SARS-CoV-2 (COVID 19) Negative INFLUENZA A Negative INFLUENZA B Negative RSV PCR Negative Normal [facility] Comment on above: Performed By: #### L 9000.0800 #### [facility] [address] [place], [address] MCV (mean corpuscular volume ) determinationOrdered By: Gabriel Rucker on 06-13-2024 MCV (RBC) [Entitic vol] 91.3 fL 81-99 [facility] Magnesiumon 06-13-2024 Magnesium [Mass/Vol] 1.6 mg/dL Normal 1.5-2.2 [facility] Comment on above: Order Comment: Comme nts: may add to ED labs Performed By: #### L 501.5200 #### [facility] [address] [place], [address] Magnesium (Unsp spec) [Mass/ Vol]Ordered By: Estela Staton on 06-13-2024 Magnesium [Mass/Vol] 1.6 mg/dL 1.5-2.2 [facility] Mean corpuscular hemoglobin (MCH) determinationOrdered By: Gabriel Rucker on 06-13-2024 MCH (RBC) [Entitic mass] 27.6 pg 27.0-32.0 [facility] Mean corpuscular hemoglobin concentration (MCHC) determinationOrdered By: Gabriel Rucker on 06-13-2024 MCHC (RBC) [Mass/Vol] 30.2 g/dL Low 32-36 [facility] Mean platelet volume determi nationOrdered By: Gabriel Rucker on 06-13-2024 Platelet mean volume (Bld) [Entitic vol] 9.4 fL 6.2-12.0 [facility] Microscopic analysis of urin e for red blood cells (RBC)Ordered By: Estela Staton on 06-13-2024 Urine RBC 0-5 SEEN /hpf 0-5 [facility] Monocyte percentageOrdered B y: Gabriel Rucker on 06-13-2024 Monocytes/100 WBC (Bld) 4.3 % 0-10 [facility] Mucus LM Ql (Urine sed)Order ed By: Estela Staton on 06-13-2024 Mucus Ql (Urine sed) 0 SEEN /hpf [facility] Neutrophil percentageOrdered By: Gabriel Rucker on 06-13-2024 Neutrophils/100 WBC (Bld) 40.5 % Low 47-70 [facility] Nitrite Test strip Ql (U)Ord ered By: Estela Staton on 06-13-2024 Nitrite Ql (U) Positive High Negative [facility] No Panel InformationOrdered By: Gabriel Rucker on 06-13-2024 Blood Gas Clinical Comments 20/10 cmH2O [facility] Blood Gas Respiration Rate 12 [facility] Blood Gas Sample Site L Radial [facility] Blood Gas Specimen Type ART [facility] Blood Gas Vent Mode Not entered [facility] Oxygen Delivery Device BiPAP [facility] Troponin T High Sensitivity 34 ng/L High <14 [facility] Nucleated red blood cell per centageOrdered By: Gabriel Rucker on 06-13-2024 Nucleated RBC/100 WBC (Bld) [Ratio] 0 % 0-5 [facility] Oxygen saturation measuremen tOrdered By: Gabriel Rucker on 06-13-2024 Blood Gas Oxygen Saturation 94 % Low 95-99 [facility] Partial pressure of carbon d ioxide measurementOrdered By: Gabriel Rucker on 06-13-2024 Arterial Blood Partial Pressure CO2 60.6 mmHg High 35-45 [facility] Partial pressure of oxygen m easurementOrdered By: Gabriel Rucker on 06-13-2024 Arterial Blood Partial Pressure O2 81 mmHG 75-100 [facility] Platelet countOrdered By: Zena Rucker on 06-13-2024 Platelets (Bld) [#/Vol] 231 10*3/uL 150-450 [facility] Potassium (Unsp spec) [Mass/ Vol]Ordered By: Gabriel Rucker on 06-13-2024 Potassium [Moles/Vol] 4.2 mmol/L 3.3-5.1 [facility] Protein Test strip Ql (U)Ord ered By: Estela Staton on 06-13-2024 Protein Ql (U) 100 mg/dl High Negative [facility] RBC Auto (Bld) [#/Vol]Ordere d By: Gabriel Rucker on 06-13-2024 RBC (Bld) [#/Vol] 5.84 10*6/uL High 4.2-5.4 [facility] Reactive lymphocyte countOrd ered By: Gabriel Rucker on 06-13-2024 Reactive Lymphocytes 1+ [facility] Respiratory pathogens DNA an d RNA panel SAMMY+probe (Resp)Ordered By: Estela Staton on 06-13-2024 Respiratory Panel (PCR) [facility] Serum creatinine measurement (mass/volume)Ordered By: Gabriel Rucker on 06-13-2024 Creatinine [Mass/Vol] 1.14 mg/dL 0.70-1.20 [facility] Serum glucose measurement (m ass/volume)Ordered By: Gabriel Rucker on 06-13-2024 Glucose [Mass/Vol] 154 mg/dL High 70-99 [facility] Serum or plasma calcium kezia urement (mass/volume)Ordered By: Remus Ungsussy on 06-13-2024 Calcium [Mass/Vol] 9.1 mg/dL 7.6-11.0 [facility] Serum or plasma urea nitroge n measurement (mass/volume)Ordered By: Remus Rucker on 06-13-2024 Urea nitrogen [Mass/Vol] 28 mg/dL High 4-19 [facility] Sodium levelOrdered By: Brittny s Frank on 06-13-2024 Sodium [Moles/Vol] 141 mmol/L 133-145 [facility] Total carbon dioxide measure mentOrdered By: Gabriel Rucker on 06-13-2024 Blood Gas Total CO2 31 mmol/L [facility] Troponin T.cardiac High sens itivity method [Mass/Vol]Ordered By: Remus Rucker on 06-13-2024 Troponin T High Sensitivity 2 Hour 45 ng/L High <14 [facility] Urinalysis, Completeon 06-13 BACTERIA 2+ /hpf Normal None Seen [facility] Comment on above: Order Comment: SHAHBAZ TER SPECIMEN Performed By: #### L 400.0001 #### [facility] [address] [place] [id number] EPI,SQUAMOUS 0-5 SEEN Normal 5-10 [facility] Comment on above: Order Comment: SHAHBAZ TER SPECIMEN Performed By: #### L 400.0001 #### [facility] [address] [facility] [address] RBC 0-5 SEEN Normal 0-5 [facility] Comment on above: Order Comment: SHAHBAZ TER SPECIMEN Performed By: #### L 400.0001 #### [facility] [address] [facility] [address] WBC >100 SEEN Normal 0-5 [facility] Comment on above: Order Comment: SHAHBAZ TER SPECIMEN Performed By: #### L 400.0001 #### [facility] [address] [place] [id number] YEAST 1+ /hpf Normal None Seen [facility] Comment on above: Order Comment: SHAHBAZ TER SPECIMEN Performed By: #### L 400.0001 #### [facility] [address] [place], [address] Mucus Ql (Urine sed) 0 SEEN Normal [facility] Comment on above: Order Comment: SHAHBAZ TER SPECIMEN Performed By: #### L 400.0001 #### [facility] [address] [place], [place], [id number] Urine blood detectionOrdered By: Estela White on 06-13-2024 Urine Occult Blood 25 /ul High Negative [facility] Urine clarityOrdered By: Cindy umn White on 06-13-2024 Clarity (U) Sl. Cloudy Clear [facility] Urine color determinationOrd ered By: Estela White on 06-13-2024 Color (U) Yellow Yellow [facility] Urine leukocyte esterase det ection by dipstickOrdered By: Estela White on 06-13-2024 Leukocyte esterase Test strip Ql (U) 500 /ul High Negative [facility] Urine pHOrdered By: Estela W alea on 06-13-2024 pH (U) 6.0 [pH] 5.0 - 8.0 [facility] Urine sediment bacteria coun t by microscopy (number/high power field)Ordered By: White on 06-13-2024 Bacteria LM.HPF (Urine sed) [#/Area] 2 /[HPF] None Seen [facility] Urine specific gravity measu rementOrdered By: Estela White on 06-13-2024 Specific gravity (U) [Rel density] 1.015 1.002-1.030 [facility] Urobilinogen Ql (U)Ordered B y: Estela White on 06-13-2024 Urine Urobilinogen Normal mg/dl Normal [facility] Venous Duplex Imag/Gregg Extre mon 06-13-2024 Venous Duplex Imag/Gregg Extrem [facility] [address] [place], [place] [id number] Venous Duplex Imag/Gregg Extrem MR#: [id number] Acct: [id number] Name: TOD HUNT Rep #: [id number] : 1945 F 78 From: Jan Medeiros DO PCP: Dr. Socrates Spangler MD Status: ADM IN Study: Venous Duplex Imag/Gregg Extrem Date of Exam: Exam# [id number] Ordering Dr: Gabriel Rucker DO PROCEDURE: VENOUS [...] thrombosis identified in the extremity. [facility]: Dr. Socrates Spangler MD; Dr. 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 Normal [facility] White blood cell (WBC) count Ordered By: Gabriel Rucker on 06-13-2024 WBC (Bld) [#/Vol] 15.4 10*3/uL High 4.4-11.0 [facility] White blood cell countOrdere d By: Estela Staton on 06-13-2024 Urine WBC >100 SEEN /hpf 0-5 [facility] Yeast LM.HPF (Urine sed) [#/ Area]Ordered By: Estela Staton on 06-13-2024 Urine Yeast 1+ /hpf None Seen [facility] pH (Unsp spec)Ordered By: Zena Rucker on 06-13-2024 Blood Gas pH 7.29 Low 7.35-7.45 [facility] CNOVon 12-03-2016 CNOV Office Visit (AGPOB1) BETO HUNT ([id number]) 1945 F NFRDate Time Provider Department12/03/16 2:45 [...] Carpal tunnel syndrome of left wrist- Deformity, [place] neck, finger 02/22/2012- GERD (gastroesophageal reflux disease)- [...] take one tab at 8am and one oa1agkskchgtvtqxgrb 2.5 % cream Apply 1 application to [...] to follow up, as she lives in [place],and has limited family resources. Plan to discuss [...] right ankle with routine healing, subsequent encounter [D01.526P]Order(s):XR ANKLE GENERAL 3V AP/LAT/OBL RT [[id number]] Order #: [id number] as of 12/03/2016 Sig: LANTUS 100 UNIT/ML [...] 12/03/2016 2:40 PM >> SIMA PASTOR LPN Dec 03, 2016 2:40 PM Patient not taking [...] FOR* Morbid obesity [E66.01] INVALID FOR* Cystocele [DWJ4710] INVALID FOR* Tracheostomy in place (HCC) [Z93.0] INVALID FOR*11/18/2015 Hypertension [I10] INVALID FOR* HTN (hypertension) [I10] INVALID FOR*12/11/2011 Deformity, [place] neck, finger [M20.039] INVALID FOR* Trigger thumb [...] for appointment.Follow-up and Disposition History RecordedEncounter Number: [id number] Status:Closed by MARQUES TORRES DPM on 12/07/16 Normal [facility] PROGRESSon 12-03-2016 PROGRESS HNO ID: [id number]: June (Res) NelsonService: (none)Author Type: ResidentType: Progress NotesFiled: 12/07/2016 5:22 PMNote Text:DOS: 05/25/16POD: 6 monthsPOV: 7Procedure: S/p ORIF ankle fracture right LEThis 70 year old female presents for follow up of ORIF right anklefracture/dislocatio n. Patient states they are doing well. Patient deniespain to the ankle. Has been full weightbearing to the right LE in lace upankle brace and new balance shoes. [place] [facility] [place], and states she is performing home PT exercises. She has finishedfull course of PT at this time. Denies stiffness to the right ankle.Denies any current nausea, vomiting, fever, chills, shortness of breath,chest pain or calf pain. Patient is diabetic, and states blood sugars arewell-controlled. Denies any other pedal complaintsPAST MEDICAL HISTORYDiagnosis Date- Ankle fracture, right- Carpal tunnel syndrome of left wrist- Deformity, [place] neck, finger 02/22/2012- GERD (gastroesophageal reflux disease)- [...] of BreathObjective:Patient presents NWB in wheelchair in [facility] ankle brace and athleticshoes.Problem focus examination to [...] ability [place], [place]. Plan to discuss post-operativestatus with Dr. Bartlett, and we will decide if patient needs immediatefollow up.Sameera Naylor DPM PGY-3I personally saw and evaluated the patient. I reviewed the resident'snote. I agree with the resident's assessment and plan unless otherwisenoted.Marques Torres DPM, FACFAS [facility] PROGRESS HNO ID: [id number]: Sima ([place]) Thuy: (none)Author Type: LICENSED NURSEType: [...] Negative for excessive bleeding, clots, bleeding disorders. [facility] CNOVon 10-22-2016 CNOV Office Visit (AGPOB1) BETO HUNT ([id number]) 1945 F NFRDate Time Provider Department10/22/16 1:00 [...] balance shoes. Patient has been residing at [facility]. Denies any current nausea, vomiting, fever, chills, shortness ofbreath, chest pain or calf pain. Patient is diabetic, and states blood sugarsare well-controlled. Denies any other pedal complaintsPAST MEDICAL HISTORYDiagnosis Date- Ankle fracture, right- Carpal tunnel syndrome of left wrist- Deformity, [place] neck, finger 02/22/2012- GERD (gastroesophageal reflux disease)- Hypothyroidism- Osteoporosis, unspecified- Other and unspecified hyperlipidemia- Personal history of colonic polyps Colon polyps- Respiratory failure (HCC) associated infection- Trigger thumb of left hand 02/22/2012- Type II or unspecified type diabetes mellitus without mention ofcomplication, uncontrolled- Unspecified hemorrhoids without mention of complication Hemorrhoids- V-tach ([facility]) 01/28/2010Current Outpatient Prescriptions:docusate sodium (COLACE) 100 mg [...] take one tab at 8am and one mi2hfSFGVMYVURM PRESCRIPTION CPAP SUPPLIES, TUBING, FILTERS, MASK DX [...] BreathObjective:Patient presents NWB in stretcher today from SNF in lace up ankle brace andathletic shoes.Problem [...] complication, with long-term current use of insulin ([facility]) [E11.65, Z79.4] Other Visit Diagnosis:Closed right ankle fracture, with routine healing, subsequent encounter [W52.019C]Order(s):XR ANKLE COMP M3V (AG,AV,EU,FV,HL,ANTONIA,MM,SP ) [[id number]] Order #: [id number] as of 10/22/2016 Sig: DOCUSATE SODIUM 100 [...] FOR* Morbid obesity [E66.01] INVALID FOR* Cystocele [EQL3882] INVALID FOR* Tracheostomy in place (HCC) [Z93.0] INVALID FOR*11/18/2015 Hypertension [I10] INVALID FOR* HTN (hypertension) [I10] INVALID FOR*12/11/2011 Deformity, [place] neck, finger [M20.039] INVALID FOR* Trigger thumb [...] of Service: EST PATIENT VISIT LEVEL 3 [[id number]]Disposition: Return in about 6 weeks (around 12/03/2016).LOS history recordedFollow-up and Disposition History RecordedEncounter Number: [id number] Status:Closed by MARQUES TORRES DPM on 10/26/16 [facility] PROGRESSon 10-22-2016 PROGRESS HNO ID: [id number]: Marques TorresService: (none)Author Type: PhysicianType: Progress NotesFiled: 10/26/2016 9:04 [...] balance shoes. Patient has been residing at [facility]. Denies any current nausea, vomiting, fever, chills,shortness of breath, chest pain or calf pain. Patient is diabetic, andstates blood sugars are well-controlled. Denies any other pedalcomplaintsPAST MEDICAL HISTORYDiagnosis Date- Ankle fracture, right- Carpal tunnel syndrome of left wrist- Deformity, [place] neck, finger 02/22/2012- GERD (gastroesophageal reflux disease)- [...] presents NWB in stretcher today from [facility] in lace up ankle braceand athletic shoes.Problem [...] and plan unless otherwisenoted.Marques Torres DPM, FACFAS [facility] PROGRESS HNO ID: [id number]: Courtney Jennings (Yanci)Service: (none)Author Type: Medical AssistantType: Progress NotesFiled: 10/26/2016 [...] Negative for excessive bleeding, clots, bleeding disorders. [facility] CNOVon 09-10-2016 CNOV Office Visit (AGPOB1) BETO HUNT ([id number]) 1945 F NFRDate Time Provider Department09/10/16 2:30 PM ЕКАТЕРИНА BARTLETT AGPOB1 During your visit today, we recorded [...] the fracture boot.[facility]. Denies any current nausea, vomiting,fever, chills, shortness of breath, chest pain or calf pain. Believes bloodsugars are doing well. Denies any other pedal complaintsPAST MEDICAL HISTORYDiagnosis Date- Ankle fracture, right- Carpal tunnel syndrome of left wrist- Deformity, [place] neck, finger 02/22/2012- GERD (gastroesophageal reflux disease)- [...] take one tab at 8am and one ls9drqnbcgitforwfrq 2.5 % cream Apply 1 application to affected area twice daily.Apply to affected area sparingly. Right elbow and neckfurosemide (LASIX) 40 mg tablet Take 0.5 tablets by mouth once daily.No current facility-administered medications for this visit.ALLERGIESAllergen Reactions- Lisinopril Cough- Pollen Itching fenton- Smoke Shortness of BreathObjective:[facility]Problem focus examination to [...] right, closed, with routine healing, subsequent encounter [Y71.188G] Other Visit Diagnoses:Morbid obesity, unspecified obesity type (HCC) [E66.01] Uncontrolled type 2 diabetes mellitus without complication, with long-term current use of insulin (HCC) [E11.65, Z79.4]Order(s):XR ANKLE COMP M3V (AG,AV,EU,FV,HL,ANTONIA,MM,SP ) [[id number]] Order #: [id number] ANKLE GAUNTLET, CUSTOM FITTED [O0933MSB] Order #: [id number] as of 09/10/2016 Sig: DOCUSATE SODIUM 100 [...] FOR* HTN (hypertension) [I10] INVALID FOR*12/11/2011 Deformity, [place] neck, finger [M20.039] INVALID FOR* Trigger thumb [...] of Service: EST PATIENT VISIT LEVEL 3 [[id number]]Disposition: Return in about 6 weeks (around 10/22/2016) for with Dr. Torres.Follow-up and Disposition History RecordedEncounter Number: [id number] Status:Closed by ЕКАТЕРИНА BARTLETT DPM on 09/15/16 [facility] PROGRESSon 09-10-2016 PROGRESS HNO ID: [id number]: Brigid Pathak: (none)Author Type: LICENSED NURSEType: Progress NotesFiled: 09/15/2016 9:51 AMNote Text:REVIEW OF SYSTEMS:GENERAL: Well developed, well nourished. No acute distressPAIN: Pain Right ankleCARDIOVASCULAR: Negative for chest pain, leg swelling and palpations.MSK: joint pain Right ankleSKIN: Negative for lesions, rash, itching, metal sensitivityNEURO: Negative for seizure, trauma, numbness/tingling of extremities.ENDOCRINE: Diabetes Type 2 Currently on medidcationHEMATOLOGY: Negative for excessive bleeding, clots, bleeding disorders. Normal [facility] PROGRESS HNO ID: [id number]: Екатерина Osullivan: (none)Author Type: PhysicianType: Progress NotesFiled: 09/15/2016 9:51 AMNote Text:DOS: 05/25/16POD: 15 weeksPOV: 5Procedure: S/p ORIF dislocated ankle fracture right LEThis 70 year old female presents for follow up ORIF right anklefracture/dislocatio n. Patient states they are doing well. Patient deniespain to the ankle. Has been partial WB to the right LE in the fractureboot. Patient [facility]. Denies any currentnausea, vomiting, fever, chills, shortness of breath, chest pain or calfpain. Believes blood sugars are doing well. Denies any other pedalcomplaintsPAST MEDICAL HISTORYDiagnosis Date- Ankle fracture, right- Carpal tunnel syndrome of left wrist- Deformity, [place] neck, finger 02/22/2012- GERD (gastroesophageal reflux disease)- [...] PT.Follow up 6 weeks.Екатерина Bartlett DPM Normal [facility] Vital Signs Date Time Vital Sign Value Performing Clinician Facility 10-18-2024 19:00-0400 Heart rate 55 /min Dr. Socrates Spangler MD Work Phone: [facility] 10-18-2024 19:00-0400 SaO2% (BldA) [Mass fraction] 100 % Dr. Socrates Spangler MD Work Phone: [facility] 10-18-2024 18:28-0400 Body temperature 98.6 [degF] Dr. Socrates Spangler MD Work Phone: [facility] 10-18-2024 18:28-0400 Diastolic blood pressure 62 mm[Hg] Dr. Socrates Spangler MD Work Phone: [facility] 10-18-2024 18:28-0400 Respiratory rate 12 /min Dr. Socrates Spangler MD Work Phone: [facility] 10-18-2024 18:28-0400 Systolic blood pressure 125 mm[Hg] Dr. Socrates Spangler MD Work Phone: [facility] 10-18-2024 14:48-0400 Body height 167.[address] Socrates Spangler MD Work Phone: [facility] 10-18-2024 14:48-0400 Body mass index (BMI) [Ratio] 71.2 kg/m2 Dr. Socrates Spangler MD Work Phone: [facility] 10-18-2024 14:48-0400 Body weight 200.[address] Socrates Spangler MD Work Phone: [facility] 10-18-2024 14:48-0400 Inhaled oxygen flow rate 2 L/min Dr. Socrates Spangler MD Work Phone: [facility] 06-19-2024 16:27-0400 Body temperature 97.7 [degF] Dr. Socrates Spangler MD Work Phone: [facility] 06-19-2024 16:27-0400 Diastolic blood pressure 67 mm[Hg] Dr. Socrates Spangler MD Work Phone: [facility] 06-19-2024 16:27-0400 Heart rate 61 /min Dr. Socrates Spangler MD Work Phone: [facility] 06-19-2024 16:27-0400 Inhaled oxygen flow rate 2 L/min Dr. Socrates Spangler MD Work Phone: [facility] 06-19-2024 16:27-0400 Respiratory rate 18 /min Dr. Socrates Spangler MD Work Phone: [facility] 06-19-2024 16:27-0400 SaO2% (BldA) [Mass fraction] 95 % Dr. Socrates Spangler MD Work Phone: [facility] 06-19-2024 16:27-0400 Systolic blood pressure 150 mm[Hg] Dr. Socrates Spangler MD Work Phone: [facility] 06-19-2024 03:43-0400 Body mass index (BMI) [Ratio] 62.3 kg/m2 Dr. Socrates Spangler MD Work Phone: [facility] 06-19-2024 03:43-0400 Body weight 175.[address] Socrates Spangler MD Work Phone: [facility] 06-14-2024 11:45-0400 Body height 167.[address] Socrates Spangler MD Work Phone: [facility] 06-14-2024 03:15-0400 Inhaled oxygen concentration 30 % Dr. Socrates Spangler MD Work Phone: [facility] 06-13-2024 23:00-0400 Body temperature 98.5 [degF] Dr. Socrates Spangler MD Work Phone: [facility] 06-13-2024 23:00-0400 Diastolic blood pressure 65 mm[Hg] Dr. Socrates Spangler MD Work Phone: [facility] 06-13-2024 23:00-0400 Heart rate 60 /min Dr. Socrates Spangler MD Work Phone: [facility] 06-13-2024 23:00-0400 Inhaled oxygen concentration 40 % Dr. Socrates Spangler MD Work Phone: [facility] 06-13-2024 23:00-0400 Respiratory rate 24 /min Dr. Socrates Spangler MD Work Phone: [facility] 06-13-2024 23:00-0400 SaO2% (BldA) [Mass fraction] 96 % Dr. Socrates Spangler MD Work Phone: [facility] 06-13-2024 23:00-0400 Systolic blood pressure 135 mm[Hg] Dr. Socrates Spangler MD Work Phone: [facility] 06-13-2024 19:39-0400 Body height 152.[address] Socrates Spangler MD Work Phone: [facility] 06-13-2024 19:39-0400 Body mass index (BMI) [Ratio] 77.5 kg/m2 Dr. Socrates Spangler MD Work Phone: [facility] 06-13-2024 19:39-0400 Body weight 180.[address] Socrates Spangler MD Work Phone: [facility] Encounters Encounter Date Encounter Type Care Provider Facility Start: 10-18-2024 Evaluation and management of inpatient Dr. Nico Garcia DO -[facility] Work Phone: Start: 10-18-2024 Non-patient / Non-visit Dr. Nico pacheco DO -[facility] Work Phone: Start: 06-18-2024 Non-patient / Non-visit Dr. Savanna kowalski MD -[facility] Work Phone: Start: 06-18-2024 End: 06-18-2024 ambulatory [facility] [place] [place]: 06-17-2024 Non-patient / Non-visit Dr. Azam Montgomery MD -[facility] Work Phone: Start: 06-16-2024 Non-patient / Non-visit Dr. Azam Montgomery MD -[facility] Work Phone: Start: 06-15-2024 Non-patient / Non-visit Dr. Azam Montgomery MD -[facility] Work Phone: Start: 06-14-2024 Non-patient / Non-visit Dr. Azam Montgomery MD -[facility] Work Phone: Start: 06-14-2024 ambulatory Socrates Spangler Facility:[facility] Start: 06-14-2024 Non-patient / Non-visit [facility]. Calderón [facility] Start: 06-13-2024 End: 06-19-2024 Evaluation and management of inpatient Dr. Estela Staton MD -[facility] Work Phone: Start: 06-13-2024 ambulatory Estela Staton Facility :[facility] Start: 06-13-2024 Non-patient / Non-visit Dr. Estela Staton MD -[facility] Work Phone: Start: 12-03-2016 End: 12-03-2016 Ambulatory MARQUES TORRES [facility] Start: 10-22-2016 End: 10-22-2016 Ambulatory MARQUES TORRES [facility] Start: 09-10-2016 End: 09-10-2016 Ambulatory ЕКАТЕРИНА BARTLETT [facility] Start: 05-24-2016 End: 05-27-2016 Evaluation and management of inpatient ЕКАТЕРИНА ROJASLISA Facility:[facility] Procedures Date Procedure Procedure Detail Performing Clinician Start: 10-18-2024 Urnls dip stick/tabl et reagent auto microscopy Dr. Socrates Spangler MD Work Phone: Start: 10-18-[address] Socrates Spangler MD Work Phone: Start: 10-18-2024 Plain chest X-ray Dr. Huber Spangler MD Work Phone: Start: 06-16-2024 X-ray of foot, three or [...] Treatment Date Care Activity Detail Author Start: 10-18-2024 Verification routine [facility] Start: 10-18-2024 Hospital admission, emergency, from emergency room, medical nature [facility] Start: 10-18-2024 Admission procedure [facility] Start: 10-18-2024 [facility] Start: 10-18-2024 Consultation [facility] Start: 10-18-2024 Bacteria identified in Urine by Culture Urine Culture [facility] Start: 06-19-2024 Patient discharge [facility] Start: 06-19-2024 [facility] Start: 06-18-2024 Wound care [facility] Start: 06-18-2024 Care planning and problem solving actions [facility] Start: 06-18-2024 Care planning and problem solving actions [facility] Start: 06-16-2024 Referral to shipping helper [facility] Start: 06-16-2024 [facility] Start: 06-14-2024 [facility] Start: 06-14-2024 Consultation for treatment [facility] Start: 06-14-2024 Following clinical pathway protocol [facility] Start: 06-14-2024 Consultation [facility] Start: 06-13-2024 Application of elastic bandage [facility] Start: 06-13-2024 Assessment of risk of venous thromboembolism [facility] Start: 06-13-2024 Care regimes management [facility] Start: 06-13-2024 Elevation of affected extremity [facility] Start: 06-13-2024 Fall prevention [facility] Start: 06-13-2024 Inhalation therapy procedure [facility] Start: 06-13-2024 Insertion of catheter into peripheral vein [facility] Start: 06-13-2024 Introduction of urinary catheter [facility] Start: 06-13-2024 Measuring intake and output [facility] Start: 06-13-2024 Notification of physician [facility] Start: 06-13-2024 Oxygen therapy [facility] Start: 06-13-2024 Patient education [facility] Start: 06-13-2024 End: 06-14-2024 Patient referral to dietitian [facility] Start: 06-13-2024 Providing care according to standard [facility] Start: 06-13-2024 Provision of activity privileges [facility] Start: 06-13-2024 Referral to occupational therapist [facility] Start: 06-13-2024 Referral to service [facility] Start: 06-13-2024 End: 06-13-2024 [facility] Start: 06-13-2024 Hospital admission, emergency, from emergency room, medical nature [facility] Start: 06-13-2024 Legionella pneumophila Ag [Presence] in Urine [facility] Start: 06-13-2024 Streptococcus pneumoniae antigen assay [facility] Start: 06-13-2024 Verification routine [facility] Start: 06-13-2024 Admission procedure [facility] Start: 06-13-2024 Inhalation therapy procedure [facility] Start: 06-13-2024 End: 06-13-2024 [facility] Start: 06-13-2024 Bacteria identified in Blood by Culture Blood Culture [facility] Start: 06-13-2024 Dual pressure spontaneous ventilation support [facility] Patient Education Pneumonia Comm unity Acquired [facility] Work Phone: Patient referral [facility] Work Phone: Respiratory pathogen s DNA and RNA panel - Respiratory specimen by SAMMY with probe detection [facility] Troponin T.cardiac [Mass/volume] in Serum or Plasma by High sensitivity method [facility] Urine culture [facility] Immunizations Immunization Date Immunization Notes Care Provider Fa cility 05-12-[address] Socrates Spangler MD Work Phone: [facility] 05-12-2016 pneumococcal conjuga te vaccine, [address] Socrates Spangler MD Work Phone: [facility] Payers Date Payer Category Payer Self-pay 2010 Medicaid [id number] 2008 Medicare [id number] 2003 Unknown [id number] Medicare [id number] Unknown [id number] 2.16.8 [id number] Unknown [id number] 2.16.8 [id number] Unknown [id number] 2.16.8 [id number] Unknown [id number] 2.16.8 [id number] Unknown [id number] 2.16.8 [id number] Unknown [id number] 2.16.8 [id number] Unknown [id number] 2.16.8 [id number] Unknown [id number] 2.16.8 [id number] Unknown [id number] 2.16.8 [id number] Unknown [id number] 2.16.8 [id number] Social History Date Type Detail Facility Start: 06-13-2024 End: 10-18-2024 Tobacco smoking status NHIS Never smoked tobacco (finding) [facility] Start: 05-12-2016 None None [facility] Start: 05-12-2016 Spouse/ Significant Other Spouse/ Significant Other [facility] Start: 06-13-2024 End: 06-19-2024 Sex Female (finding) [facility] Start: 1945 Sex Assigned At Female [facility] Goals Date Patient Goal Desired Activity /State Functional Status Date Assessment Result Facility 06-19-2024 Functional status Bedrest [facility] Work Phone: Mental Status Date Assessment Result Facility 10-18-2024 Cognitive function Level Of Cons ciousness Awake;Alert;Appropriate;Follow s Commands [facility] Work Phone: 06-19-2024 Cognitive function Voice/Name [facility] Work Phone: Clinical Notes 06-13-2024 to 10-18-2024 Note Date & Type Note Facility 10-18-2024 Discharge summary [facility] 10-18-2024 History and physi rudi note [facility] 10-18-2024 Radiology Diagnostic study note [facility] Imaging Services [address] [place] [address] Chest 1 View (Portable) MR#: [id number] Acct: [id number] Name: TOD HUNT Rep #: [id number] : 1945 F 78 From: Fredy Diaz MD PCP: Dr. Socrates Spangler MD Status: REG E R Study:Chest 1 View (Portable) Date of Exam: 10/18/24 Exam# [id number] Ordering Dr: Zoraida Yang MD PROCEDURE: CHEST 1 VIEW (PORTABLE) 10/18/2024 REASON FOR EXAM: WEAKNESS TECHNIQUE: Frontal view of the chest. COMPARISON: Prior study dated June 15, 2024 FINDINGS: Hardware: EKG electrodes are seen. Heart: Moderate cardiomegaly. Lungs: Mild increased markings at the lung bases suggestive of atelectasis Bones: Degenerative changes are identified within the thoracic spine. Other: RAD/Chest 1 View (Portable) IMPRESSION: Moderate cardiomegaly. Findings suggestive of mild linear atelectasis at the lung bases. Reading Location: [id number] CC: Dr. Socrates Spangler MD; Dr. Ryan Yang MD ~ Mellowing Machine Operator: Signed [facility] 10-18-2024 Discharge summary Note Date/Time October 18, 2024 6:56pm [facility] Medical Records Department [address] [place] [id number] Emergency Department Summary 10/18/24 MR#: [id number] Acct: [id number] Name: TOD HUNT Rep #:[id number] : 1945 78 From: Ryan Yang MD PCP: Dr. Socrates Spangler MD Status:REG E R Location: ED HPI History of Present Illness Chief Complaint: Hypoglycemia Informant: patient Onset/Context/Timing Onset: Today Timing: Intermittent Current Severity: Mild Maximum Severity: Moderate Narrative Narrative: 78-year-old female history of diabetes, CHF, CKD, hypertension on Eliquis I believe for dysrhythmia right eye blindness. Today had low blood sugars. Said her blood sugars have been running lower lately. She has had some nausea but novomiting or diarrhea no melena. No fever. Denies any dysuria. Patient is unable to walk. She lives at home with her who helps take care of her he has dementia she also has a caregiver coming in 5 days a week. Young was called today because of change in mental status she was found to have low blood sugar and was brought in. Prior similar symptoms: Yes Recent Illness/Hospitalization: No PFSH [facility] Medical History (Updated 10/18/24 @ 18:[address] Nico Garcia, DO) On home oxygen therapy Congestive heart failure (CHF) Chest pain Hypertension Migraines Contusion of right great toe without damage to nail, initial encounter CHF (congestive heart failure) CKD (chronic kidney disease), stage III Acute hypoxic respiratory failure Hypothyroidism Allergic rhinitis GERD (gastroesophageal reflux disease) [...] mL) subcutaneous pen (Lantus Solostar U-100 Insulin) metformin 500 mg 24 hr 1,000 mg PO BIDAC diabetes 0 05/12/16 05/12/16 08:00 History tablet,extended release (gastric retention) metoprolol tartrate 50 mg tablet 50 mg PO BID blood pr essure 05/12/16 05/12/16 08:00 History magnesium oxide 400 mg (241.3 mg 400 mg PO BID supplem ent #60 05/14/16 Unknown Rx magnesium) tablet TABLETS nystatin 100,000 unit/gram topical 1 applic topical BI D yeast 05/14/16 Unknown Rx powder (Sdamy) docusate sodium 100 mg capsule 200 mg PO BID stool sof tner 06/16/24 Unknown History pantoprazole 40 mg tablet,delayed 40 mg PO DAILY reflu x 06/16/24 Unknown History release furosemide 40 mg tablet 40 mg PO DAILY 7 days #7 tab s 06/19/24 Unknown Rx insulin aspart U-100 100 unit/mL 1 sliding scale dose subcut ACHS 06/19/24 Unknown History (3 mL) subcutaneous pen (Novolog diabetes FlexPen U-100 Insulin aspart) ergocalciferol (vitamin D2) 1,250 1,250 mcg PO QWEEK 0 10/18/24 Unknown History mcg (50,000 unit) capsule escitalopram oxalate 10 mg tablet 10 mg PO QHS 5 Unknown History glipizide 10 mg tablet 10 mg PO BID 10/18/24 Unknow n History hydroxyzine pamoate 25 mg capsule 25 mg PO DAILY PRN i tching 10/18/24 Unknown History insulin glargine-yfgn 100 unit/mL 45 unit subcut DAILY 10/18/24 Unknown History (3 mL) subcutaneous pen levothyroxine 112 mcg tablet 112 mcg PO DAILY 10/18/24 Unknown History loratadine 10 mg tablet (Allergy 10 mg PO DAILY Unknown History Relief (loratadine)) magnesium chloride 64 mg 64 mg PO DAILY 10/18/24 Unkn own History (magnesium chloride) tablet,delayed release (Mag 64) montelukast 10 mg tablet 10 mg PO DAILY 10/18/24 Unkn own History nystatin 100,000 unit/gram topical 1 applic topical DA HERNAN 10/18/24 Unknown History cream potassium chloride 10 mEq 10 meq PO BID 10/18/24 Unkno wn History tablet,extended release warfarin 5 mg tablet 7.5 mg PO DAILY 10/18/24 Unk nown History Allergy/AdvReac Type Severity Reaction Status Date / Time lisinopril Allergy Unknown Verified 10/18/24 14:48 pollen extracts Allergy Itching Verified 10/18/24 14:48 Family History Mother Diabetes Heart disease Hypertension Father Diabetes Cancer Heart disease Alzheimer dementia Surgical History History of ankle surgery S/P cholecystectomy Social History household members: spouse Smoking Status: Never smoker alcohol intake: never substance use type: does not use ROS ROS ED ROS Narrative Denies recent illness. Nausea without vomiting. No diarrhea fever. No dysurianor melena. Constitutional Constitutional ED: Denies chills or fever(s) Eyes Eyes: Denies blurry vision ENT ENT ED: Denies ear pain Cardiovascular Cardiovascular: Denies chest pain Respiratory/Chest Respiratory/Chest: Denies cough Gastrointestinal Gastrointestinal: Reports nausea; Denies abdominal pain, constipation, diarrhea or melena Genitourinary Genitourinary ED: Denies dysuria or hematuria Musculoskeletal Musculoskeletal: Denies arthralgias Integumentary Denies abscess Neurologic Neurologic: Denies headache(s) Psychiatric Psychiatric: Denies anxiety Endocrine Endocrinology: Denies cold intolerance Hematologic/Lymphatic Hematologic/Lymphatic: Reports none Allergic/Immunologic Allergic/Immunologic ED: Denies mouth swelling, tongue swelling or urticaria EXAM Physical Exam Narrative Exam Narrative: 78-year-old female vital signs stable initial blood pressure elevated 152/134 [place] rechecked. Pulse ox 97% on 2 L. No hypoxia on oxygen. H EENT exam pupils round reactive light. Legally blind right eye. No trauma. Moist with membranes. Neck nontender. Lungs clear to auscultation bilaterally. Heart bradycardic rate about 55 no murmur. Chest wall ribs nontender. Abdomen obese soft nontender. No peritoneal signs. No distention. Moving all 4 extremities. 1+ edema both lower extremities. Dorsi plantarflexion intact. Normal under cutter strength. Patient is awake and alert. Answer questions following commands. Const Vital Signs: 10/18/24 14:48 10/18/24 15:00 10/18/24 16:09 Temperature 98.2 F Temperature Source Oral Pulse Rate 55 L 52 L Respiratory Rate 18 17 Respiratory Effort Normal Respiratory Pattern Normal Blood Pressure 152/134 H 124/58 H Blood Pressure Mean 140 80 Pulse Ox 97 100 Oxygen Delivery Method Nasal Cannula Room Air Oxygen Flow Rate (L/min) 2 10/18/24 16:15 10/18/24 16:30 10/18/24 16:45 Temperature Temperature Source Pulse Rate 42 L 54 L 61 Respiratory Rate 20 H 19 H 15 Respiratory Effort Respiratory Pattern Blood Pressure 137/112 H 122/56 H 128/67 H Blood Pressure Mean 121 76 83 Pulse Ox 100 99 96 Oxygen Delivery Method Room Air Room Air Oxygen Flow Rate (L/min) 10/18/24 17:00 10/18/24 17:15 10/18/24 17:30 Temperature Temperature Source Pulse Rate 48 L 46 L 50 L Respiratory Rate 18 20 H 24 H Respiratory Effort Respiratory Pattern Blood Pressure 131/89 H 110/68 121/73 H Blood Pressure Mean 103 74 89 Pulse Ox 100 100 98 Oxygen Delivery Method Room Air Oxygen Flow Rate (L/min) 10/18/24 17:45 10/18/24 18:00 10/18/24 18:15 Temperature Temperature Source Pulse Rate 46 L 48 L 56 L Respiratory Rate 17 22 H 25 H Respiratory Effort Respiratory Pattern Blood Pressure 125/57 H 125/62 H Blood Pressure Mean 77 80 Pulse Ox 99 95 Oxygen Delivery Method Room Air Oxygen Flow Rate (L/min) 10/18/24 18:21 10/18/24 18:28 Temperature 98.6 F Temperature Source Pulse Rate 48 L 60 Respiratory Rate 16 12 Respiratory Effort Respiratory Pattern Blood Pressure 125/62 H Blood Pressure Mean 83 Pulse Ox 95 Oxygen Delivery Method Oxygen Flow Rate (L/min) Positive well nourished, well developed and obese; Negative for cachectic or contractures General Appearance ED: well developed and NAD; Negative for cachectic, contractures, cyanotic or diaphoretic Nutritional Appearance: obese; Negative for cachectic HEENT Reports moist mucous membranes Negative for trauma or tenderness Eyes PERRL and EOMs intact bilaterally Neck no lymphadenopathy, supple and no JVD Chest Wall inspection of chest normal and palpation of chest normal Resp normal respiratory effort and clear to auscultation bilaterally Cardio regular rhythm, S1 normal heart sound, S2 normal heart sound and no murmurs; Negative for regular rate Palpation: Negative for palpable S3 or palpable S4 Rate: bradycardia GI normal to inspection, nondistended, normoactive bowel sounds, non-tender, non-distended and no masses Auscultation: normoactive bowel sounds Palpation: soft; Negative for tender, guarding or rebound tenderness present Extremity Negative for normal to inspection General Extremety ED: Yes edema; Negative for tenderness General Extremity: edema Neuro oriented x3 and CN's II-XII intact bilaterally Sensorium / Orientation: alert; Negative for orientation impaired, lethargic or stuporous Motor Exam: strength 5/5 throughout Psych mental status grossly normal Attitude: No agitated Mood & Affect: Negative for depressed, anxious or tearful Skin No no rashes or lesions noted and no wounds Skin Narrative: Yeast infections on the skin. General Skin Exam: Negative for jaundice Trauma: Negative for abrasion Wounds: Negative for wounds noted MDM MDM MDM Narrative Medical decision making narrative: 78-year-old female unable to stand which is her baseline cared for by her at home who has dementia and also a wire cutter. Been having episodes of hypoglycemia she is a known diabetic. She will undergo workup looking for things like infection, dehydration and electrolyte abnormalities, etc. customer services supervisor will be consulted because she may need to be a social admit due to the conditions at home. Repeat exam patient doing well at 6 PM. Her potassium came back elevated 7.5 I think that is hemolysis and/or lab error. I am having them run it they ran the initial 1 they dispose of because of all this is the second 1 came back at 7.5 but there is hemolysis or also. Her kidney function is actually better than shenormally runs she has a creatinine of 1.27 and she has never had a higher potassium 4.5. We will hold off on any treatment of the hyperkalemia until I get the third potassium back. It returned at 5.6. I think these are erroneously elevated will not treat. She will be started on IV Rocephin for UTI. I spoken to the hospitalist to admit the patient to general medical floor. History & Record Review Discussion w/independent historian: Patient Additional record(s) reviewed:: Prior inpatient record, Prior outpatient record and Prior labs Lab Data Attestation: I reviewed the patient's lab results. Lab results narrative: CBC shows a white count of 9.0. H&H 11.8 and 40. Platelets 190. Chemistries show a sodium 136. Potassium is 7.5. Gap of 5. BUN and creatinineof 23 and 1.27. Repeat potassium was done on lab call me it was 5.6 and reported to me around 6:37 PM. BGT of 99. Liver enzymes are unremarkable. Chest x-ray chronic changes with cardiomegaly. UA positive nitrites, 50-100 white cells. 10-25 epithelial cells may be contaminated. 1+ bacteria. A culture be sent. Labs: Laboratory Results - last 24 hr 10/18/24 10/18/24 10/18/24 14:53 15:20 16:00 WBC 9.0 RBC 4.57 Hgb 11.8 L Hct 40.8 MCV 89.3 MCH 25.8 L MCHC 28.9 L RDW Std Deviation 54.3 H RDW Coeff of Ryan 16.6 H Plt Count 190 MPV 10.3 Immature Gran % (Auto) 0.300 Neut % (Auto) 81.4 H Lymph % (Auto) 11.8 L Prentiss % (Auto) 6.0 Eos % (Auto) 0.4 Baso % (Auto) 0.1 Absolute Neuts (auto) 7.3 Absolute Lymphs (auto) 1.06 Nucleated RBC % 0 Sodium Cancelled Potassium Cancelled Chloride Cancelled Carbon Dioxide Cancelled Anion Gap Cancelled BUN Cancelled Creatinine Cancelled Estim Creat Clear Calc Cancelled Est GFR (MDRD) Non-Af Cancelled BUN/Creatinine Ratio Cancelled Glucose Cancelled Calcium Cancelled Total Bilirubin Cancelled AST Cancelled ALT Cancelled Alkaline Phosphatase Cancelled Total Protein Cancelled Albumin Cancelled Globulin Cancelled Albumin/Globulin Ratio Cancelled Urine Color Urine Clarity Urine pH Ur Specific Dyer Urine Protein Urine Glucose (UA) Urine Ketones Urine Occult Blood Urine Nitrite Urine Bilirubin Urine Urobilinogen Ur Leukocyte Esterase Urine RBC Urine WBC Ur Squamous Epith Cells Urine Bacteria Urine Mucus POC Glucose 99 73 L 10/18/24 10/18/24 10/18/24 16:03 16:39 18:17 WBC RBC Hgb Hct MCV MCH MCHC RDW Std Deviation RDW Coeff of Ryan Plt Count MPV Immature Gran % (Auto) Neut % (Auto) Lymph % (Auto) Prentiss % (Auto) Eos % (Auto) Baso % (Auto) Absolute Neuts (auto) Absolute Lymphs (auto) Nucleated RBC % Sodium 136 Potassium 7.5 H* 5.6 H Chloride 104 Carbon Dioxide 26.8 Anion Gap 5 BUN 23 H Creatinine 1.27 H Estim Creat Clear Calc 64.53 Est GFR (MDRD) Non-Af 43 L BUN/Creatinine Ratio 18.2 Glucose 74 Calcium 8.4 Total Bilirubin 0.30 AST 33 H ALT 5 Alkaline Phosphatase 73 Total Protein 5.5 L Albumin 2.2 L Globulin 3.3 Albumin/Globulin Ratio 0.7 L Urine Color Yellow Urine Clarity Cloudy Urine pH 6.0 Ur Specific Dyer 1.020 Urine Protein 30 H Urine Glucose (UA) Normal Urine Ketones Negative Urine Occult Blood 25 H Urine Nitrite Positive H Urine Bilirubin 1 H Urine Urobilinogen Normal Ur Leukocyte Esterase 500 H Urine RBC 0-5 SEEN Urine WBC 50-100 SEEN Ur Squamous Epith Cells 10-25 SEEN Urine Bacteria 1+ Urine Mucus 0 SEEN POC Glucose Radiography Chest X-Ray - ED: 1 View, Read by ED Physician, Read by Radiologist, Normal, Lungs, Mediastinum, Bony Structures, No Acute Disease, Chronic Changes and Cardiomegaly Diagnostic Testing: Clinical Impression(s) from Imaging Studies Chest X-Ray 10/18/24 15:45 IMPRESSION: Moderate cardiomegaly. Findings suggestive of mild linear atelectasis at the lung bases. Reading Location: [id number] Chest x-ray, portable, single view interpreted by myself and radiologist. Showsobvious cardiomegaly. Chronic changes. No acute process. Rhythm Strip Rhythm Strip: Sinus bradycardia Rate: 51 Ectopy: None EKG Initial EKG: Attestation: I personally reviewed and interpreted this EKG as follows: Interpretation: Sinus Bradycardia Comments: sinus bradycardia rate of 51 no acute signs of ID or ischemia. Low voltage. Discharge Plan Dx/Rx/DC Orders Clinical Impression: Adult failure to thrive, Unable to ambulate, History of diabetes mellitus, Chronic anticoagulation, Acute metabolic encephalopathy due to hypoglycemia Disposition Disposition: Acute Care Hospital [facility] What to do if you have Problems For any increased pain, shortness of breath, bleeding, nausea or vomiting, chestpain, or any unexpected problems, contact your Primary Care Provider. Call [facility] ([phone]) or report to the closest Emergency Room. Call 911 if necessary. 10/18/24 1856 <Electronically signed by Ryan Yang MD> Cosigner Signature (if applicable): CC: Dr. Socrates Spangler MD ~ Signed [facility] Work Phone: 1([phone] 483-752504-08-2025 Consult note Author Isaacsharita Powell [facility] Note Date/Time June 19, 2024 3:13 pm [facility] Medical Records Department [address] [place] [address] Counseling Note - Pharmacy 06/19/24 1512 MR#: [id number] Acct: [id number] Name: TOD HUNT Rep #:[id number] : 1945 78 From: Isaac Powell PCP: Dr. Socrates Spangler MD Status:ADM I N Y Location: [place] [address] Pharmacy [facility] Pharmacy Service has performed discharge medication reconciliation [...] Signature (if applicable): Date CC: ~ Signed [facility] Work Phone: [phone] 323-932504-08-2025 Consult note [facility] Medical Records Department [address] [facility] [place] [address] Counseling Note - Pharmacy 06/19/24 1512 MR#: [id number] Acct: [id number] Name: TOD HUNT Rep #:[id number] : 1945 78 From: Isaac Powell PCP: Dr. Socrates Spangler MD Status:ADM I N Y Location: [place] [address] Pharmacy [facility] Pharmacy Service has performed discharge medication reconciliation [...] Signature (if applicable): Date CC: ~ Signed [facility]04-08-2025 Discharge summary Author Savanna Suero [facility] Note Date/Time June 19, 2024 1:11 pm [facility] Medical Records Department [address] [place] [address] Instructions for Home/Discharge Instructions 06/19/24 1259 MR#: [id number] Acct: [id number] Name: TOD HUNT Rep #:[id number] : 1945 78 From: Savanna Suero MD [...] MD; Dr. Azam Montgomery MD ~ Signed [facility] Work Phone: 1(341) 347-893804-08-2025 Discharge summary [facility] Medical Records Department [address] [place] [address] Instructions for Home/Discharge Instructions 06/19/24 1259 MR#: [id number] Acct: [id number] Name: TOD HUNT Rep #:[id number] : 1945 78 From: Savanna Suero MD [...] potassium [facility] 3 to [facility]. Please call their office upon [...] Self Care 06/19/24 1311Pmac Suero MD CC: DPM Dr. Sarabjit Dubois; Dr. Estela Staton MD; Dr. Socrates Spangler MD; Dr. Azam Montgomery MD ~ Signed [facility]04-08-2025 [facility] Medical Records Department [address] [place] [address] Discharge Summary 06/19/24 1311 MR#: [id number] Acct: [id number] Name: TOD HUNT Rep #: [id number] : 1945 78 From: Savanna Suero MD PCP: Dr. Socrates Spangler MD Status:DIS IN Location: [place] [address] Providers Date of Admission: 06/13/24 Date of Discharge: 06/19/24 Primary Care Physician: Dr. Socrates Spangler MD Consultations 06/14/24 04:46 Consult: Onc/Wound/inspector semiconductor wafer Routine Comment: Reason for Consult:: multiple wounds [...] the hospital. Patient was offered to explore prison placement on discharge but she refused. Discharge [...] appointment* - It i (more content not included)...[facility]04-07-2025 Progress note Author Savanna Suero [facility] Note Date/Time June 18, 2024 5:37 pm [facility] Medical Records Department [address] [place] [address] Progress Note - Hospitalist 06/18/24 1727 MR#: [id number] Acct: [id number] Name: TOD HUNT Rep #:[id number] : 1945 78 From: Savanna Suero MD PCP: Dr. Socrates Spangler MD Status:ADM I N Location: [place] [address] Reason for Visit Reason for Visit: Diagnoses [...] 79.4 H, Lymph % (Auto) 16.2 L, Prentiss % (Auto) 3.9, Eos % (Auto) 0.0, [...] Suero MD Charges/Coding Visit Charges Inpatient E&M: 00802 Subs Hosp L2 06/18/241735 <Electronically signed by Savanna Suero MD> Cosigner Signature (if applicable): CC: ~ Signed ADDENDUM by Dr. Savanna Suero MD on 06/18/24 at 1737 Addendum # CKD stage III b -Appears to be at baseline -Avoid nephrotoxic agents -Daily BMPs 06/18/241736<Electronically signed by Savanna Suero MD> Cosigner Signature (if applicable): cc: ~* Signed [facility] Work Phone: 1(483) 311-978804-07-2025 Progress note [facility] Medical Records Department [address] [place] [address] Progress Note - Hospitalist 06/18/24 1727 MR#: [id number] Acct: [id number] Name: TOD HUNT Rep #:[id number] : 1945 78 From: Savanna Suero MD PCP: Dr. Socrates Spangler MD Status:ADM I N Location: [place] [address] Reason for Visit Reason for Visit: Diagnoses [...] She expressed concern about going home before [facility] bed arrives given she is bedbound [...] 79.4 H, Lymph % (Auto) 16.2 L, Prentiss % (Auto) 3.9, Eos % (Auto) 0.0, [...] Suero MD Charges/Coding Visit Charges Inpatient E&M: 55775 Subs Hosp L2 06/18/24 4685 Cosigner Signature (if applicable): CC: ~ Signed ADDENDUM by Dr. Savanna Suero MD on 06/18/24 at 1737 Addendum # CKD stage III b -Appears to be at baseline -Avoid nephrotoxic agents -Daily BMPs 06/18/24 173 Cosigner Signature (if applicable): cc: ~* Signed [facility]04-07-2025 Progress note Author Estela Staton [facility] Note Date/Time June 18, 2024 12:2 2am [facility] Medical Records Department [address] [place] [address] Progress Note - Hospitalist 06/17/240 MR#: [id number] Acct: [id number] Name: TOD HUNT Rep #:[id number] : 1945 78 From: Estela Staton MD PCP: Dr. Socrates Spangler MD Status:ADM I N Location: [place] [address] Hospitalist Note Patient with onset of asymptomatic [...] Cosigner Signature (if applicable): cc: ~* Signed [facility] Work Phone: 1(780) 504-628304-07-2025 Progress note [facility] Medical Records Department [address] [place] [address] Progress Note - Hospitalist 06/17/242329 MR#: [id number] Acct: [id number] Name: TOD HUNT Rep #:[id number] : 1945 78 From: Estela Staton MD PCP: Dr. Socrates Spangler MD Status:ADM I N Location: [place] [address] Hospitalist Note Patient with onset of asymptomatic [...] transitionto Eliquis with first dose in AM. 06/18/2421 Cosigner Signature (if applicable): cc: ~* Signed [facility]04-06-2025 Progress note Author Azam Montgomery [facility] Note Date/Time June 17, 2024 1:01 pm [facility] Medical Records Department [address] [place] [address] Progress Note - Hospitalist 06/17/24 1254 MR#: [id number] Acct: [id number] Name: TOD HUNT Rep #:[id number] : 1945 78 From: Azam Alarcon PCP: Dr. Socrates Spangler MD Status:ADM I N Location: [place] [address] Reason for Visit Reason for Visit: Diagnoses [...] 79.1 H, Lymph % (Auto) 17.5 L, Prentiss % (Auto) 3.1, Eos % (Auto) 0.0, [...] osteomyelitis of second to the fifth toe shipping helper consulted for that. The shipping helper also reviewed the x-ray and thinks the x-ray reporting is not correct/wrong. Clinically, I do not suspect 06/17: Asw Specialist consulted and discussed with Dr. Dubois. He also does not think clinically osteomyelitis. Patient has osteoporosis and diffuse demineralization of the toe bones and digital contractures therefore it appears bone lysis. #3. Hypertension: Continue home regimen including metoprolol, amlodipine, losartan, hydrochlorothiazide, pulse dose with IV lasix as noted above, PRN hydralazine. /:HCTZ discontinued. Losartan dose decreased to 50 mg daily. 06/16: Patient blood pressure is better. Constipation: Dulcolax [...] Code status. Charges/Coding Visit Charges Inpatient E&M: 60228 Subs Hosp L2 06/17/24 1301 <Electronically signed by Azam Montgomery MD> Cosigner Signature (if applicable): CC: ~ Signed [facility] Work Phone: 1([phone] 221-989904-06-2025 Progress note [facility] Medical Records Department [address] [place] [address] Progress Note - Hospitalist 06/17/24 1254 MR#: [id number] Acct: [id number] Name: TOD HUNT Rep #:[id number] : 1945 78 From: Azam Alarcon PCP: Dr. Socrates Spangler MD Status:ADM I N Location: [place] [address] Reason for Visit Reason for Visit: Diagnoses [...] 79.1 H, Lymph % (Auto) 17.5 L, Prentiss % (Auto) 3.1, Eos % (Auto) 0.0, [...] osteomyelitis of second to the fifth toe shipping helper consulted for that. The shipping helper also reviewed the x-ray and thinks the x-ray reporting is not correct/wrong. Clinically, I do not suspect 06/17: Asw Specialist consulted and discussed with Dr. Dubois. He [...] Code status. Charges/Coding Visit Charges Inpatient E&M: 50935 Subs Hosp L2 06/17/24 1301 Cosigner Signature (if applicable): CC: ~ Signed [facility]04-06-2025 Consult note Author Sarabjit Dubois [facility] Note Date/Time June 17, 2024 9:23 am [facility] Medical Records Department [address] [place] [address] Consultation 06/17/24 0919 MR#: [id number] Acct: [id number] Name: TOD HUNT Rep #:[id number] : 1945 78 From: Sarabjit Dubois DPM PCP: Dr. Socrates Spangler MD Status:ADM I N Location: [place] [address] Assessment & Plan Assessment/Plan (1) Contusion of right great toe without damage to nail, initial encounter: PLAN: Exam performed. Radiographs were ordered and taken for the right foot, radiologist read osteomyelitis due to inability to visualize second and third toe. At this time I ordered toe x-rays to reevaluate; however, I disagree with radiologist read ellen has significant disuse osteoporosis related to nonweightbearing [...] pain to that site or gross deformation. [facility] Medical History (Updated 06/17/24 @ 09:21 by [...] 79.1 H, Lymph % (Auto) 17.5 L, Prentiss % (Auto) 3.1, Eos % (Auto) 0.0, [...] 2nd to the 5th toe. Reading Location[facility] 06/17/24922 <Electronically signed by Sarabjit Dubois DPM> Cosigner Signature (if applicable): CC: Dr. Socrates Spangler MD~ Signed [facility] Work Phone: 1(310) 955-864004-06-2025 Consult note [facility] Medical Records Department [address] [place] [address] Consultation 06/17/24918 MR#: [id number] Acct: [id number] Name: TOD HUNT Rep #:[id number] : 1945 78 From: Sarabjit Dubois DPM PCP: Dr. Socrates Spangler MD Status:ADM I N Location: [place] [address] Assessment & Plan Assessment/Plan (1) Contusion of right great toe without damage to nail, initial encounter: PLAN: Exam performed. Radiographs were ordered and taken for the right foot, radiologist read osteomyelitis due to inability to visualize second and third toe. At this time I ordered toe x-rays to reevaluate; however, I disagree with radiologist read aspmaidaent has significant disuse osteoporosis related to nonweightbearing [...] pain to that site or gross deformation. [facility] Medical History (Updated 06/17/24 @ 09:21 by [...] 79.1 H, Lymph % (Auto) 17.5 L, Prentiss % (Auto) 3.1, Eos % (Auto) 0.0, [...] 2nd to the 5th toe. Reading Location: [facility] 06/17/24 0923 Cosigner Signature (if applicable): CC: Dr. Socrates Spangler MD~ Signed [facility]04-06-2025 [facility] Medical Records Department [address] [place] [address] Consultation 06/17/24918 MR#: [id number] Acct: [id number] Name: TOD HUNT Rep #: [id number] : 1945 78 From: Sarabjit Dubois DPM PCP: Dr. Socrates Spangler MD Status:ADM IN Location: [facility] [id number] Assessment Plan Assessment/Plan (1) Contusion of right [...] of Consult: 06/17/24 HPI Narrative HPI Narrative: OTD HUNT, is a 78 F who presents [...] pain to that site or gross deformation. [facility] Medical History (Updated 06/17/24 @ 09:21 by [...] 100 1 tab PO DAILY blood pressure 030 03/3005/12/16 08:00 History mg-hydrochlorothiazide 25 mg tablet [...] touch protective sensation intac (more content not included)...[facility]04-05-2025 Progress note Author Azam Montgomery [facility] Note Date/Time June 16, 2024 2:27 pm [facility] Medical Records Department [address] [place] [address] Progress Note - Hospitalist 06/16/24 1257 MR#: [id number] Acct: [id number] Name: TOD HUNT Rep #:[id number] : 1945 78 From: Azam Alarcon PCP: Dr. Socrates Spangler MD Status:ADM I N Location: [place] [address] Reason for Visit Reason for Visit: Diagnoses [...] (Auto) 84.6 H, Lymph % (Auto) 12.3L, Prentiss % (Auto) 2.8, Eos % (Auto) 0.0, [...] 2nd to the 5th toe. Reading [facility] Physical Exam Narrative Seen and examined Shortness [...] osteomyelitis of second to the fifth toe shipping helper consulted for that. The shipping helper also reviewed the x-ray and thinks the x-ray reporting is not correct/wrong. Clinically, I do not suspect #3. Hypertension: Continue home regimen including metoprolol, amlodipine, losartan, hydrochlorothiazide, pulse dose with IV lasix as noted above, PRN hydralazine. 06/14:HCTZ discontinued. Losartan dose decreased to 50 mg daily. 5: Patient blood pressure is better. #4. Hyperlipidemia: [...] Code status. Charges/Coding Visit Charges Inpatient E&M: 40680 Subs Hosp L2 06/16/24 1427 <Electronically signed by Azam Montgomery MD> Cosigner Signature (if applicable): CC: ~ Signed [facility] Work Phone: 1(801) 693-375104-05-2025 Progress note [facility] Medical Records Department [address] [place] [address] Progress Note - Hospitalist 06/16/24 1257 MR#: [id number] Acct: [id number] Name: TOD HUNT Rep #:[id number] : 1945 78 From: Azam Alarcon PCP: Dr. Socrates Spangler MD Status:ADM I N Location: [place] [address] Reason for Visit Reason for Visit: Diagnoses [...] 1725 / 1725 525 / 525 Balance -5 / -2055 -700 / -700 -220 / [...] (Auto) 84.6 H, Lymph % (Auto) 12.3L, Prentiss % (Auto) 2.8, Eos % (Auto) 0.0, [...] 2nd to the 5th toe. Reading Location: [facility] Physical Exam Narrative Seen and examined Shortness [...] osteomyelitis of second to the fifth toe shipping helper consulted for that. The shipping helper also reviewed the x-ray and thinks the [...] Code status. Charges/Coding Visit Charges Inpatient E&M: 50210 Subs Hosp L2 06/16/24 1427 Cosigner Signature (if applicable): CC: ~ Signed [facility]04-05-2025 Radiology Diagnostic study note [facility] Imaging Services [address] [place], [place] [address] Foot min 3 Views MR#: [id number] Acct: [id number] Name: TOD HUNT Rep #: [id number] : 1945 F 78 From: Pet er Peer DO PCP: Dr. Socrates Spangler MD Status: ADM I N Study:Foot min 3 Views Date of Exam: 08/05 Exam# [id number] Ordering Dr: Betty Montgomery MD EXAM: Right [...] 2nd to the 5th toe. Reading Location[facility] CC: Dr. Socrates Spangler MD; Dr. Azam Montgomery MD ~ Mellowing Machine Operator: Signed [facility]04-04-2025 Progress note Author Azam Montgomery [facility] Note Date/Time June 15, 2024 1:19 pm [facility] Medical Records Department [address] [place] [address] Progress Note - Hospitalist 06/15/24 0847 MR#: [id number] Acct: [id number] Name: TOD HUNT Rep #:[id number] : 1945 78 From: Azam Alarcon PCP: Dr. Socrates Spangler MD Status:ADM I N Location: [place] [address] Reason for Visit Reason for Visit: Diagnoses [...] 1025 Balance -2054 / -2054 -1025 / -102 Lab / Micro Data 06/15/24 05:55 06/15/24 [...] (Auto) 82.7 H, Lymph % (Auto)13.8 L, Prentiss % (Auto) 3.0, Eos % (Auto) 0.0, [...] Code status. Charges/Coding Visit Charges Inpatient E&M: 86527 Subs Hosp L2 06/15/24 1318 <Electronically signed by Azam Montgomery MD> Cosigner Signature (if applicable): CC: ~ Signed ADDENDUM by Dr. Azam Montgomery MD on 06/15/24 at 1319 Visit Charges Inpatient E&M: 25649 Subs Hosp L2 06/15/24 1319<Electronically signed by Azam Montgomery MD> Cosigner Signature (if applicable): cc: ~* Signed [facility] Work Phone: 1(495) 489-655304-04-2025 Progress note [facility] Medical Records Department [address] [place] [address] Progress Note - Hospitalist 06/15/24 0847 MR#: [id number] Acct: [id number] Name: TOD HUNT Rep #:[id number] : 1945 78 From: Azam Alarcon PCP: Dr. Socrates Spangler MD Status:ADM I N Location: [place] [address] Reason for Visit Reason for Visit: Diagnoses [...] (Auto) 82.7 H, Lymph % (Auto)13.8 L, Prentiss % (Auto) 3.0, Eos % (Auto) 0.0, [...] IV Solu-Medrol, Mucinex, incentive spirometry and Pep. 4/4: Repeat chest x-ray portable done with suboptimal images. Shows improvementin lung congestion but underventilated. Continue antibiotics and above treatment. Next #2. QUYNH on chronic Kidney Disease Stage IIIA: Admission BUN/Cr 28/1.14, GFR 49,baseline renal function unfortunately remote with last noted 11/22/2016 creatinine 0.98, 4/3: BUN/creatinine 32/1.41. HCTZ discontinued. Losartan dose decreased to 50 mg daily. Monitor kidney function. 4/4: Creatinine jumped up from 1.14-1.54 in 48 [...] Code status. Charges/Coding Visit Charges Inpatient E&M: 34588 Subs Hosp L2 06/15/24 1318 Cosigner Signature (if applicable): CC: ~ Signed ADDENDUM by Dr. Azam Montgomery MD on 06/15/24 at 1319 Visit Charges Inpatient E&M: 78912 Subs Hosp L2 06/15/24 1319 Cosigner Signature (if applicable): cc: ~* Signed [facility]04-04-2025 Radiology Diagnostic study note [facility] Imaging Services [address] [place], [place] [address] Chest 1 View (Portable) MR#: [id number] Acct: [id number] Name: TOD HUNT Rep #: [id number] : 1945 F 78 From: Sue Golden MD PCP: Dr. Socrates Spangler MD Status: ADM I N Study:Chest 1 View (Portable) Date of Exam: 06/15/24 Exam# [id number] Ordering Dr: Betty Montgomery MD EXAM: XR [...] Superimposed pneumonia cannot be excluded. Reading Location[facility] CC: Dr. Socrates Spangler MD; Dr. Azam Montgomery MD ~ Mellowing Machine Operator: Signed [facility]04-03-2025 Progress note Author Azam Montgomery [facility] Note Date/Time June 14, 2024 12:3 9pm [facility] Medical Records Department [address] [place] [address] Progress Note - Hospitalist 06/14/24 0959 MR#: [id number] Acct: [id number] Name: TOD HUNT Rep #:[id number] : 1945 78 From: Azam Alarcon PCP: Dr. Socrates Spangler MD Status:ADM I N Location: [place] [address] Reason for Visit Reason for Visit: Diagnoses [...] Total 2150 / 2150 Balance -1999 / -1999 Lab / Micro Data 06/14/24 05:32 06/14/24 [...] (Auto) 40.5 L, Lymph % (Auto)53.9 H, Prentiss % (Auto) 4.3, Eos % (Auto) 0.7, [...] Sens 34 H, [place] [address] H 06/13/24 21:47: Troponin T Hi Sens 2 Hr 45 H, Urine Color Yellow, Urine Clarity Sl. Cloudy, Urine pH 6.0, Ur Specific Dyer 1.015, Urine Protein 100 H, Urine Glucose [...] (Auto) 85.8 H, Lymph % (Auto) 13.2L, Prentiss % (Auto) 0.7, Eos % (Auto) 0.0, [...] infection. Small left pleural effusion. Reading Location: [facility] Venous Duplex 06/13/24 21:55 IMPRESSION: No deep venous thrombosis identified in the extremity. Reading Location: [facility] Physical Exam Narrative Seen and examined Patient [...] Code status. Charges/Coding Visit Charges Inpatient E&M: 11666 Subs Hosp L2 06/14/24 1239 <Electronically signed by Azam Montgomery MD> Cosigner Signature (if applicable): CC: ~ Signed [facility] Work Phone: 1(272) 202-457204-03-2025 Progress note [facility] Medical Records Department [address] [place] [address] Progress Note - Hospitalist 06/14/24 0959 MR#: [id number] Acct: [id number] Name: TOD HUNT Rep #:[id number] : 1945 78 From: Azam Alarcon PCP: Dr. Socrates Spangler MD Status:ADM I N Location: [place] [address] Reason for Visit Reason for Visit: Diagnoses [...] Output Total 2150 / 2150 Balance -1999 Lab / Micro Data 06/14/24 05:32 06/14/24 [...] (Auto) 40.5 L, Lymph % (Auto)53.9 H, Prentiss % (Auto) 4.3, Eos % (Auto) 0.7, [...] Sens 34 H, [place] [address] H 06/13/24 21:47: Troponin T Hi Sens 2 Hr 45 H, Urine Color Yellow, Urine Clarity Sl. Cloudy, Urine pH 6.0, Ur Specific Dyer 1.015, Urine Protein 100 H, Urine Glucose [...] (Auto) 85.8 H, Lymph % (Auto) 13.2L, Prentiss % (Auto) 0.7, Eos % (Auto) 0.0, [...] infection. Small left pleural effusion. Reading Location: [facility] Venous Duplex 06/13/24 21:55 IMPRESSION: No deep venous thrombosis identified in the extremity. [facility] Physical Exam Narrative Seen and examined Patient [...] at that point. #12. CODE status: Patient HCPOA is her daughter and living will is currently inplace. Discussed CODE status at length including difference between FULL code, DNR-CCA and DNR-CC status. Following discussions about the differences in these status, requested Full Code status. Charges/Coding Visit Charges Inpatient E&M: 64765 Subs Hosp L2 06/14/24 1239 Cosigner Signature (if applicable): CC: ~ Signed [facility]04-03-2025 History and physical note Author Estela Staton [facility] Note Date/Time June 13, 2024 10:5 5pm [facility] Medical Records Department [address] [place] [address] H&P Exam - Hospitalist 06/13/242126 MR#: [id number] Acct: [id number] Name: TOD HUNT Rep #:[id number] : 1945 78 From: sEtela Staton MD PCP: Dr. Socrates Spangler MD Status:ADM I N Location: [place] [address] HPI - General General Date of Admission: [...] Allergic rhinitis, GERD who presents to the [facility] ED on 06/13/24 with history of dyspnea, [...] 1, levaquin 750 mg IV x 1. [facility] Medical History CKD (chronic kidney disease), stage [...] 40.5 L, Lymph % (Auto) 53.9 H, Prentiss % (Auto) 4.3, Eos % (Auto) 0.7, [...] Sens 34 H, [place] [address] H Micro: Microbiology 06/13/24 19:55 Mucosa - [...] Allergic rhinitis, GERD who presents to the [facility] ED on 06/13/24 with history of dyspnea, [...] 16 minutes. Charges/Coding Visit Charges Inpatient E&M: 58558 Init Hosp L3 Procedures Hospitalists Procedures: 85866 Advncd Care Plan 30 Min 06/13/24 2180 <Electronically signed by Estela Staton MD> Cosigner Signature (if applicable): CC: Dr. Estela Staton MD; Dr. Socrates Spangler MD~ Signed ADDENDUM by Dr. Estela Staton MD on 06/13/24 at 2251 Addendum Wet read duplex negative, final read pending. ED directed ABG with pH 7.29, bicarb 28.9, O2 saturation 94%, pCO2 60.6, O2 81. Will continue BiPAP and plan repeat ABG in the next couple hours to ensure improving. 06/13/242254<Electronically signed by Estela Staton MD> Cosigner Signature (if applicable): cc: Dr. Estela Staton MD; Dr. Socrates Spangler MD ~* Signed [facility] Work Phone: 1(192) 163-302304-03-2025 Discharge summary Author Gabriel Rucker [facility] Note Date/Time June 13, 2024 10:5 4pm [facility] Medical Records Department [address] [place] [address] Emergency Department Summary 06/13/24 MR#: [id number] Acct: [id number] Name: TOD HUNT Rep #:[id number] : 1945 78 From: Gabriel Rucker DO PCP: Dr. Socrates Spangler MD Status:ADM I N Location: [place] [address] HPI History of Present Illness Chief Complaint: [...] any fever. Denies recent travel or surgery. [facility] Medical History (Updated 06/13/24 @ 21:29 by [...] Troponin slightly elevated at 34 and BT COMPUTER LABORATORY TECHNICIAN was elevated 11,672. We attempted to do [...] 40.5 L Lymph % (Auto) 53.9 H Prentiss % (Auto) 4.3 Eos % (Auto) 0.7 [...] S[place] 34 [place] [address] H Radiography Diagnostic Testin view chest x-ray [...] minutes, Including time spent:, Discussing w/Patient &/or Family/Research Program Intern, Discussing w/Consultants, Arranging Admission or Transfer, Performing [...] MD [Primary Care Provider] - Print Language: Chinese Disposition Disposition: Acute Care Hospital [facility] What to do if you have Problems For any increased pain, shortness of breath, bleeding, nausea or vomiting, chestpain, or any unexpected problems, contact your Primary Care Provider. Call [employer] [facility] ([phone]) or report to the closest Emergency Room. Call 911 if necessary. 06/13/242253 <Electronically signed by Gabriel Rucker DO> Cosigner Signature (if applicable): CC: Dr. Socrates Spangler MD ~ Signed [facility] Work Phone: 1(792) 362-453604-02-2025 Evaluation note* Diagnosis Onset Date Resolution Status Admit Date Acute hypoxic respiratory failure ac la posta June 13, 2024 9:28pm CHF (congestive heart failure) acute June 13, 2024 9:28pm Contusion of right great toe without damage to nail, initial encounter acute June 13, 2024 9:28pm Hypoxia acute June 13 9:28pm Pneumonia acute June 13 9:28pm Respiratory failure acute June 13, 2024 9:28pm [facility] Work Phone: 1(112) 108-479604-02-2025 Radiology Diagnostic study note [facility] Imaging Services [address], [place] [address] Venous Duplex Imag/Gregg Extrem MR#: [id number] Acct: [id number] Name: TOD HUNT Rep #: [id number] : 1945 F 78 From: Sandro Medeiros DO PCP: Dr. Socrates Spangler MD Status: ADM I N Study:Venous Duplex Imag/Gregg Extrem Date of E xam: 06/13/24 Exam# [id number] Ordering Dr: Zena Rucker DO PROCEDURE: VENOUS [...] thrombosis identified in the extremity. Reading [facility] CC: Dr. Socrates Spangler MD; Dr. Gabriel Rucker DO ~ Mellowing Machine Operator: Signed [facility]04-02-2025 History and physical note [facility] Medical Records Department [address] [place] [address] H&P Exam - Hospitalist 06/13/242126 MR#: [id number] Acct: [id number] Name: TOD HUNT Rep #:[id number] : 1945 78 From: Estela Staton MD PCP: Dr. Socrates Spangler MD Status:ADM I N Location: [place] [address] HPI - General General Date of Admission: [...] Allergic rhinitis, GERD who presents to the [facility] ED on 06/13/24 with history of dyspnea, [...] 1, levaquin 750 mg IV x 1. PFSH Medical History CKD (chronic kidney disease), stage [...] 40.5 L, Lymph % (Auto) 53.9 H, Prentiss % (Auto) 4.3, Eos % (Auto) 0.7, [...] Sens 34 H, [place] [address] H Micro: Microbiology 06/13/24 19:55 Mucosa - [...] Allergic rhinitis, GERD who presents to the [facility] ED on 06/13/24 with history of dyspnea, [...] 16 minutes. Charges/Coding Visit Charges Inpatient E&M: 92822 Init Hosp L3 Procedures Hospitalists Procedures: 59744 Advncd Care Plan 30 Min 06/13/242218 Cosigner Signature (if applicable): CC: Dr. Estela Staton MD; Dr. Socrates Spangler MD~ Signed ADDENDUM by Dr. Estela Staton MD on 06/13/24 at 2255 Addendum Wet read duplex negative, final read pending. ED directed ABG with pH 7.29, bicarb 28.9, O2 saturation 94%, pCO2 60.6, O2 81. Will continue BiPAP and plan repeat ABG in the next couple hours to ensure improving. 06/13/24 2252 Cosigner Signature (if applicable): cc: Dr. Estela Staton MD; Dr. Socrates Spangler MD ~* Signed [facility]04-02-2025 Discharge summary [facility] Medical Records Department [address] [place] [address] Emergency Department Summary 06/13/24 MR#: [id number] Acct: [id number] Name: TOD HUNT Rep #:[id number] : 1945 78 From: Gabriel Rucker DO PCP: Dr. Socrates Spangler MD Status:ADM I N Location: [address] History of Present Illness Chief Complaint: [...] any fever. Denies recent travel or surgery. [facility] Medical History (Updated 06/13/24 @ 21:[address] Gabriel Rucker DO) CKD (chronic kidney disease), stage III Hypothyroidism Allergic rhinitis GERD (gastroesophageal reflux disease) Obstructive sleep apnea Hyperlipidemia Hypertension Type 2 diabetes mellitus Morbid obesity Home Medications ?Medication ?Instructions ?Recorded ?Last Taken ?Type Omeprazole [Prilosec] 40 mg PO DAILY 05/12/1603/30 08:00 History amlodipine 5 mg tablet 5 [...] Troponin slightly elevated at 34 and BT COMPUTER LABORATORY TECHNICIAN was elevated 11,672. We attempted to do [...] 40.5 L Lymph % (Auto) 53.9 H Prentiss % (Auto) 4.3 Eos % (Auto) 0.7 [...] Sens 34 [place] [address] H Radiography Diagnostic Testin view chest x-ray [...] minutes, Including time spent:, Discussing w/Patient &/or Family/Research Program Intern, Discussing w/Consultants, Arranging Admission or Transfer, Performing [...] MD [Primary Care Provider] - Print Language: Chinese Disposition Disposition: Acute Care Hospital [facility] What to do if you have Problems For any increased pain, shortness of breath, bleeding, nausea or vomiting, chestpain, or any unexpected problems, contact your Primary Care Provider. Call [facility] ([phone]) or report tothe closest Emergency Room. Call 911 if necessary. 06/13/24 5888 Cosigner Signature (if applicable): CC: Dr. Socrates Spangler MD ~ Signed [facility]04-02-2025 Radiology Diagnostic study note [facility] Imaging Services [address] [place], [place] [id number] Chest 1 View (Portable) MR#: [id number] Acct: [id number] Name: TOD HUNT Rep #: [id number] : 1945 F 78 From: Sandro trinidad Afuwape PCP: Dr. Socrates Spangler MD Status: REG E R Study:Chest 1 View (Portable) Date of Exam: 06/13/24 Exam# [id number] Ordering Dr: Zena Rucker DO PROCEDURE: CHEST [...] infection. Small left pleural effusion. Reading Location: [place] CC: Dr. Socrates Spangler MD; Dr. Gabriel Rucker DO ~ Mellowing Machine Operator: Signed [facility]04-02-2025 Discharge summary Author Gabriel Rucker [facility] Note Date/Time June 13, 2024 10:5 4pm [facility] Medical Records Department [address] [place] [address] Emergency Department Summary 06/13/24 MR#: [id number] Acct: [id number] Name: TOD HUNT Rep #:[id number] : 1945 78 From: Gabriel Rucker DO PCP: Dr. Socrates Spangler MD Status:ADM I N Location: [place] [address] HPI History of Present Illness Chief Complaint: [...] any fever. Denies recent travel or surgery. [facility] Medical History (Updated 06/13/24 @ 21:29 by [...] Troponin slightly elevated at 34 and BT COMPUTER LABORATORY TECHNICIAN was elevated 11,672. We attempted to do [...] 40.5 L Lymph % (Auto) 53.9 H Prentiss % (Auto) 4.3 Eos % (Auto) 0.7 [...] Sens 34 [place] [address] H Radiography Diagnostic Testin view chest x-ray [...] minutes, Including time spent:, Discussing w/Patient &/or Family/Research Program Intern, Discussing w/Consultants, Arranging Admission or Transfer, Performing [...] MD [Primary Care Provider] - Print Language: Chinese Disposition Disposition: Acute Care Hospital [facility] What to do if you have Problems For any increased pain, shortness of breath, bleeding, nausea or vomiting, chestpain, or any unexpected problems, contact your Primary Care Provider. Call [facility] ([phone]) or report to the closest Emergency Room. Call 911 if necessary. 06/13/242253 <Electronically signed by Gabriel Rucker DO> Cosigner Signature (if applicable): CC: Dr. Socrates Spangler MD ~ Signed [facility] Work Phone: Evaluation note* Diagnosis Onset Date Resolution Status Admit Date Acute hypoxic respiratory failure ac la posta June 13, 2024 9:28pm CHF (congestive heart failure) acute June 13, 2024 9:28pm Hypoxia acute June 13 9:28pm Pneumonia acute June 13 9:28pm Respiratory failure acute June 13, 2024 9:28pm [facility] Work Phone: Evaluation note* Diagnosis Onset Date Resolution Status Admit Date Acute metabolic encephalopat hy due to hypoglycemia acute October 18, 2024 7:19pm Adult failure to thrive acute A ugust 2024 7:19pm Bradycardia acute October 18, 2 025 7:19pm Chronic anticoagulation acute A ugust 2024 7:19pm Cutaneous candidiasis acute Oct us2024 7:19pm Failure to thrive acute October 18, 2024 7:19pm History of diabetes mellitus acute October 18, 2024 7:19pm Hyperkalemia acute October 18, 2024 7:19pm Unable to ambulate acute October 18, 2024 7:19pm UTI (urinary tract infection) acute October 18, 2024 7:19pm [facility] Work Phone: History and physical note Author Estela Staton [facility] Note Date/Time June 13, 2024 10:5 5pm [facility] Medical Records Department [address] [place] [address] H&P Exam - Hospitalist 06/13/242126 MR#: [id number] Acct: [id number] Name: TOD HUNT Rep #:[id number] : 1945 78 From: Estela Staton MD PCP: Dr. Socrates Spangler MD Status:ADM I N Location: [place] [address] HPI - General General Date of Admission: [...] Allergic rhinitis, GERD who presents to the [facility] ED on 06/13/24 with history of dyspnea, [...] 1, levaquin 750 mg IV x 1. [facility] Medical History CKD (chronic kidney disease), stage [...] 40.5 L, Lymph % (Auto) 53.9 H, Prentiss % (Auto) 4.3, Eos % (Auto) 0.7, [...] Sens 34 H, [place] [address] H Micro: Microbiology 06/13/24 19:55 Mucosa - [...] Allergic rhinitis, GERD who presents to the [facility] ED on 06/13/24 with history of dyspnea, [...] 16 minutes. Charges/Coding Visit Charges Inpatient E&M: 37402 Init Hosp L3 Procedures Hospitalists Procedures: 57993 Advncd Care Plan 30 Min 06/13/24 2219 [...] MD; Dr. Socrates Spangler MD ~* Signed [facility] Work Phone: History and physical note Author Nico Garcia [facility] Note Date/Time October 18, 2024 6:5 5pm [facility] Medical Records Department [address] [place] [address] H&P Exam - Hospitalist 10/18/24 1841 MR#: [id number] Acct: [id number] Name: TOD HUNT Rep #:[id number] : 1945 78 From: Nico Garcia DO PCP: Dr. Socrates Spangler MD Status:REG E R Location: ED [facility] Date of Service: 10/18/24 Chief Complaint: Failure to thrive HPI Narrative TOD HUNT, is a 78 F who presents from home after just being very weak, covered in urine. Was noted to have low blood sugars at home and sent to the emergency room. In the emergency room, her glucose was normal and did not receive any treatments for it but it was noted that her potassium was elevated. She had initial potassium was read as high and felt to be error so was repeated and came back at 7.5 those hemolyzed. Patient received bronchodilators, sodium bicarbonate and albuterol. Repeat potassium is currently pending. Patient had a catheter placed and urinalysis was concerning for UTI patient received ceftriaxone. Patient is cared for by her who has dementia and has what she describes as good and bad days. Yesterday he thought he was celebrating thebirthday of his father who has been long . But patient is essentially bedbound does not walk for some time as she describes. [facility] Medical History Congestive heart failure (CHF) Chest pain Hypertension Migraines Contusion of right great toe without damage to nail, initial encounter CHF (congestive heart failure) CKD (chronic kidney disease), stage III Acute hypoxic respiratory failure Hypothyroidism Allergic rhinitis GERD (gastroesophageal reflux disease) [...] mL) subcutaneous pen (Lantus Solostar U-100 Insulin) metformin 500 mg 24 hr 1,000 mg PO BIDAC diabetes 0 05/12/16 05/12/16 08:00 History tablet,extended release (gastric retention) metoprolol tartrate 50 mg tablet 50 mg PO BID blood pr essure 05/12/16 05/12/16 08:00 History magnesium oxide 400 mg (241.3 mg 400 mg PO BID supplem ent #60 05/14/16 Unknown Rx magnesium) tablet TABLETS nystatin 100,000 unit/gram topical 1 applic topical BI D yeast 05/14/16 Unknown Rx powder (Nyamyc) docusate sodium 100 mg capsule 200 mg PO BID stool sof tner 06/16/24 Unknown History pantoprazole 40 mg tablet,delayed 40 mg PO DAILY reflu x 06/16/24 Unknown History release furosemide 40 mg tablet 40 mg PO DAILY 7 days #7 tab s 06/19/24 Unknown Rx insulin aspart U-100 100 unit/mL 1 sliding scale dose subcut ACHS 06/19/24 Unknown History (3 mL) subcutaneous pen (Novolog diabetes FlexPen U-100 Insulin aspart) ergocalciferol (vitamin D2) 1,250 1,250 mcg PO QWEEK 0 10/18/24 Unknown History mcg (50,000 unit) capsule escitalopram oxalate 10 mg tablet 10 mg PO QHS 5 Unknown History glipizide 10 mg tablet 10 mg PO BID 10/18/24 Unknow n History hydroxyzine pamoate 25 mg capsule 25 mg PO DAILY PRN i tching 10/18/24 Unknown History insulin glargine-yfgn 100 unit/mL 45 unit subcut DAILY 10/18/24 Unknown History (3 mL) subcutaneous pen levothyroxine 112 mcg tablet 112 mcg PO DAILY 10/18/24 Unknown History loratadine 10 mg tablet (Allergy 10 mg PO DAILY Unknown History Relief (loratadine)) magnesium chloride 64 mg 64 mg PO DAILY 10/18/24 Unkn own History (magnesium chloride) tablet,delayed release (Mag 64) montelukast 10 mg tablet 10 mg PO DAILY 10/18/24 Unkn own History nystatin 100,000 unit/gram topical 1 applic topical DA HERNAN 10/18/24 Unknown History cream potassium chloride 10 mEq 10 meq PO BID 10/18/24 Unkno wn History tablet,extended release warfarin 5 mg tablet 7.5 mg PO DAILY 10/18/24 Unk nown History Allergy/AdvReac Type Severity Reaction Status Date / Time lisinopril Allergy Unknown Verified 10/18/24 14:48 pollen extracts Allergy Itching Verified 10/18/24 14:48 Family History Mother Diabetes Heart disease Hypertension Father Diabetes Cancer Heart disease Alzheimer dementia Surgical History History of ankle surgery S/P cholecystectomy Social History household members: spouse Smoking Status: Never smoker alcohol intake: never substance use type: does not use ROS ROS Narrative Complains of a rash under her neck, breast and inguinal area. Does have chroniclower extremity edema with the right typically being worse than the left. All review of systems were negative except as mentioned above in the history of present illness and the other review of systems. Vital Signs Vital Signs Vital Signs: 10/18/24 14:48 10/18/24 15:00 10/18/24 16:09 Temperature 36.8 C Temperature Source Oral Pulse Rate 55 L 52 L Respiratory Rate 18 17 Respiratory Effort Normal Respiratory Pattern Normal Blood Pressure 152/134 H 124/58 H Blood Pressure Mean 140 80 Pulse Ox 97 100 Oxygen Delivery Method Nasal Cannula Room Air Oxygen Flow Rate (L/min) 2 10/18/24 16:15 10/18/24 16:30 10/18/24 16:45 Temperature Temperature Source Pulse Rate 42 L 54 L 61 Respiratory Rate 20 H 19 H 15 Respiratory Effort Respiratory Pattern Blood Pressure 137/112 H 122/56 H 128/67 H Blood Pressure Mean 121 76 83 Pulse Ox 100 99 96 Oxygen Delivery Method Room Air Room Air Oxygen Flow Rate (L/min) 10/18/24 17:00 10/18/24 17:15 10/18/24 17:30 Temperature Temperature Source Pulse Rate 48 L 46 L 50 L Respiratory Rate 18 20 H 24 H Respiratory Effort Respiratory Pattern Blood Pressure 131/89 H 110/68 121/73 H Blood Pressure Mean 103 74 89 Pulse Ox 100 100 98 Oxygen Delivery Method Room Air Oxygen Flow Rate (L/min) 10/18/24 17:45 10/18/24 18:00 10/18/24 18:15 Temperature Temperature Source Pulse Rate 46 L 48 L 56 L Respiratory Rate 17 22 H 25 H Respiratory Effort Respiratory Pattern Blood Pressure 125/57 H 125/62 H Blood Pressure Mean 77 80 Pulse Ox 99 95 Oxygen Delivery Method Room Air Oxygen Flow Rate (L/min) 10/18/24 18:21 10/18/24 18:28 Temperature 37.0 C Temperature Source Pulse Rate 48 L 60 Respiratory Rate 16 12 Respiratory Effort Respiratory Pattern Blood Pressure 125/62 H Blood Pressure Mean 83 Pulse Ox 95 Oxygen Delivery Method Oxygen Flow Rate (L/min) Weight Weight: 200.3 kg Body Mass Index (BMI) 71.2 Physical Exam Const alert and no apparent distress Constitutional Narrative: Lying in bed. Pleasant. Pale. HEENT normocephalic Eyes PERRL and EOMs intact bilaterally Neck Neck Narrative: Thick neck tissue. Resp normal respiratory effort, no retractions, no use of accessory muscles and clearto auscultation bilaterally Cardio regular rate, regular rhythm, S1 normal heart sound and S2 normal heart sound GI normal to inspection, nondistended, normoactive bowel sounds, soft to palpation,non-tender and non-distended GI Narrative: Obese Extremity Extremity Narrative: 2+ lower extremity edema Skin Skin Narrative: Marked candidiasis under neck, axilla, breasts, inguinal creases. Neuro Sensorium / Orientation: awake and alert Psych affect normal Results Lab / Micro Data 10/18/24 15:20 10/18/24 18:17 Labs: Laboratory Results - last 24 hr 10/18/24 14:53: POC Glucose 99 10/18/24 15:20: WBC 9.0, RBC 4.57, Hgb 11.8 L, Hct 40.8, MCV 89.3, MCH 25.8 L, MCHC 28.9 L, RDW Std Deviation 54.3 H, RDW Coeff of Ryan 16.6 H, Plt Count 190, MPV 10.3, Immature Gran % (Auto) 0.300, Neut % (Auto) 81.4 H, Lymph % (Auto) 11.8 L, Prentiss % (Auto) 6.0, Eos % (Auto) 0.4, Baso % (Auto) 0.1, Absolute Neuts (auto) 7.3, Absolute Lymphs (auto) 1.06, Nucleated RBC % 0, Sodium Cancelled, Potassium Cancelled, Chloride Cancelled, Carbon Dioxide Cancelled, Anion Gap Cancelled, BUN Cancelled, Creatinine Cancelled, Estim Creat Clear Calc Cancelled, Est GFR (MDRD) Non-Af Cancelled, BUN/Creatinine Ratio Cancelled, Glucose Cancelled, Calcium Cancelled, Total Bilirubin Cancelled, AST Cancelled, ALT Cancelled, Alkaline Phosphatase Cancelled, Total Protein Cancelled, Albumin Cancelled, Globulin Cancelled, Albumin/Globulin Ratio Cancelled 10/18/24 16:00: POC Glucose 73 L 10/18/24 16:03: Sodium 136, Potassium 7.5 H*, Chloride 104, Carbon Dioxide 26.8,Anion Gap 5, BUN 23 H, Creatinine 1.27 H, Estim Creat Clear Calc 64.53, Est GFR (MDRD) Non-Af 43 L, BUN/Creatinine Ratio 18.2, Glucose 74, Calcium 8.4, Total Bilirubin 0.30, AST 33 H, ALT 5, Alkaline Phosphatase 73, Total Protein 5.5 L, Albumin 2.2 L, Globulin 3.3, Albumin/Globulin Ratio 0.7 L 10/18/24 16:39: Urine Color Yellow, Urine Clarity Cloudy, Urine pH 6.0, Ur Specific Dyer 1.020, Urine Protein 30 H, Urine Glucose (UA) Normal, Urine Ketones Negative, Urine Occult Blood 25 H, Urine Nitrite Positive H, Urine Bilirubin 1 H, Urine Urobilinogen Normal, Ur Leukocyte Esterase 500 H, Urine RBC0-5 SEEN, Urine WBC 50-100 SEEN, Ur Squamous Epith Cells 10-25 SEEN, Urine Bacteria 1+, Urine Mucus 0 SEEN 10/18/24 18:17: Potassium 5.6 H Rhythm Strip Rhythm Strip: Sinus bradycardia Rate: 51 Ectopy: None Imaging Radiology Impression Chest X-Ray 10/18/24 15:45 IMPRESSION: Moderate cardiomegaly. Findings suggestive of mild linear atelectasis at the lung bases. Reading Location: [facility] Assessment & Plan Assessment/Plan (1) Hyperkalemia: PLAN: Possibly lab error as it is hemolyzed. Patient did receive treatment in the ED. Will repeat labs to verify further. (2) Bradycardia: PLAN: Heart rate is down to the 40s but she seemed to be asymptomatic. Will hold off on her metoprolol for now. (3) Failure to thrive: PLAN: Patient is a functional paraplegic Kindt essentially is bedbound. Husbandhas dementia and unable to safely care for her. Patient will be evaluated by PTOT and case management to assist on disposition. (4) UTI (urinary tract infection): PLAN: Continue ceftriaxone. Follow-up urine culture. Hill catheter placed in the emergency room. (5) Cutaneous candidiasis: PLAN: Very marked in her neck and in the other areas of her axilla, breasts and inguinal creases. Nystatin topical as well as fluconazole given the severity and breath of these lesions. PLAN: Plan Protein calorie malnutrition: Despite patient's morbid obesity she just appears to be very under nourished. Will add supplements and have nutrition evaluate her. Chronic kidney disease stage III Hypothyroidism: Continue levothyroxine GERD: Continue PPI Obesity class III: Complicates care and recovery Diabetes mellitus type 2: Patient was noted to be hypoglycemic prior to presentation. Patient is on glipizide, metformin, and glargine. Will hold those for now. But once we get further clarification about how her blood sugarswill continue to do then we could slowly introduce her insulin back in. A-fib: In sinus bradycardia rate now. Holding off on metformin given the bradycardia. Check an INR. Resume warfarin if INR is not supratherapeutic. JAYA: Continue with home CPAP. VTE prophylaxis with enoxaparin until INR is greater than 2. CODE STATUS: Addressed with the patient. Patient wishes to be full code. Giventhe patient's is demented I did verify that she does have a son who cares for her and would be available to contact in regards to an event where if she were to require being put on life support. Charges/Coding Visit Charges Inpatient E&M: 48704 Init Hosp L3 10/18/24 5758 <Electronically signed by Nico Garcia DO> Cosigner Signature (if applicable): CC: Dr. Socrates Spangler MD; Dr. Nico Garcia DO~ Signed [facility] Work Phone: Reason for referral (narrative)No reason for referral information availableWSalem [facility] Work Phone: Summary Purpose Family History Relationship Condition Age at Onset Recorded Date/T [place] mother Diabetes mellitus Unknown Cardiac disease Unknown Hypertension Unknown father Diabetes mellitus Unknown Malignant neoplasm Unknown Alzheimer's dementia Unknown Advance Directives Advance Directive Response Recorded Date/ Time Living Will Yes June 13, 2024 7:44pm Do you have a Healthcare Power of Manager Landscape? Yes June 13, 2024 7:44pm Name of Medical Power of Manager Landscape PT DAUGHTER June 13, 2024 7:44pm Advance Directive Response Recorded Date/ Time Living Will Yes June 14, 2024 12:17am Do you have a Healthcare Power of Manager Landscape? Yes June 14, 2024 12:17am Name of Medical Power of Manager Landscape PT DAUGHTER June 14, 2024 12:17am Advance Directive Response Recorded Date/ Time Do you have a Healthcare Power of Manager Landscape? Yes October 18, 2024 2:53pm Chief Complaint and Reason for Visit Chief [...] 2024 9:28 pm Chief Complaint Admit Date HYPOGLYCEMIA October 18, 2024 6:4 1pm HYPOGLYCEMIA October 18, 2024 7:1 9pm Reason for Visit Admit Date Acute metabolic encephalopathy due to hy poglycemia October 18, 2024 7:19pm Adult failure to thrive October 18, 2024 7:19pm Bradycardia October 18, 2024 7:1 9pm Chronic anticoagulation October 18, 2024 7:19pm Cutaneous candidiasis October 18, 2024 7 :19pm Failure to thrive October 18, 2024 7:1 9pm History of diabetes mellitus October 18, 2024 7:19pm Hyperkalemia October 18, 2024 7:1 9pm Unable to ambulate October 18, 2024 7:1 9pm UTI (urinary tract infection) October 7:19pm Additional Source Comments INFORMATION SOURCE (unrecogn ized section and content) DATE CREATED AUTHOR 09/07/2017 [facility] DATE CREATED AUTHOR AUTHOR'S ORGANIZ ATION 09/07/2017 [facility] DATE CREATED AUTHOR AUTHOR'S ORGANIZ ATION 09/11/2024 [facility] Care Teams (unrecognized sec tion and [...] End: June 19, 2024 Dr. Sarabjit Dubois DPM Other Provider [...] Active Start: June 14, 2024 Dr. Shun Luicano MD Attending Provider Active S tart: June 14, 2024 Team Status: Active Member Role Status Dates Dr. Socrates Spangler MD Primary Care Provider Active Start: June 14, 2024 Dr. Gabriel Rucker , DO Emergency Provider Active S tart: June [...] Start: June 15, 2024 Dr. Gabriel Rucker , DO Emergency Provider Active S tart: June [...] Start: June 16, 2024 Dr. Gabriel Rucker , DO Emergency Provider Active S tart: June [...] Provider Active Sta rt: June 18, 2024 Team Status: Active Member Role/Relationship Status Dates Dr. Socrates Spangler MD Primary Care Provider Active Team Status: Active Member Role/Relationship Status Dates Dr. Socrates Spangler MD Primary Care Provider Active Start: October 18, 2024 Dr. Ryan Yang MD Referring Provider Active S tart: October 18, 2024 Dr. Ryan Yang MD Emergency Provider Active S tart: October 18, 2024 Dr. Nico Garcia DO Attending Provider Active Start: October 18, 2024 Team Status: Active Member Role/Relationship Status Dates Dr. Socrates Spangler MD Primary Care Provider Active Start: October 18, 2024 Dr. Ryan Yang MD Referring Provider Active S tart: October 18, 2024 Dr. Ryan Yang MD Emergency Provider Active S tart: October 18, 2024 Dr. Nico Garcia , Admit Provider Active Star t: October 18, 2024 Dr. Nico Garcia , Attending Provider Active Start: October 18, 2024 Goals (unrecognized section and content) Goals may be documented in a n alternate sectionGoals may be documented in an alternate section FOR RECORDS PERTAINING TO PATIENTS [...] BE BASED ON THE PRIMARY CLINICAL RECORDS. [employer] provides no warranty or guarantee of the accuracy or completeness of information in this document.
--- NOTE | 2024-10-18 20:58 | CASEMGMT ---
Care Management Face to Face with patient for initial transition planning/care coordination assessment in the ED.? This insurance underwriter introduced self and role at [facility]. Patient was alert but somewhat confused. Patient willing to participate in assessment, attempted to answer questions. .? Care providers, pharmacy, and demographics verified. Admitting Diagnosis: ?Hypoglycemia Other diagnosis history: ?diabetes, CHF, CKD, hypertension PCP: ?[facility]: unable to remember Preferred Pharmacy:? [facility] Insurance: [facility] Prescription Benefit: yes Living Will/HPOA: yes, daughter Jazmin FORD: , daughter Living Arrangements: ?patient lives with her who has dementia.? They live in a two story home but only use the first floor. Patients daughter lives in a trailer behind their house.? Patient requires hands on assistance for all ADLs and IADLs.? Is on 02, unable to give details. Transportation: daughter drives DME: hospital bed, wheelchair, manual nadira, bedside commode, bed ojeda HHC: patient has an aide that comes in 5 days a week. SNF/Rehab: has been to several SNFs in the past, had trouble remembering names. Community Resources: ?[facility] ( patient thinks she is enrolled) Behavioral Health History: Patient goals: Patient wishes to discharge home, denies need for home health care at this time. Patient denies any further needs or concerns at this time. Disposition Plan: patient states she is uncertain if she would be agreeable to a SNF stay due to her being at home.
--- NOTE | 2024-10-18 21:40 | NURSING ---
2139 pt gave this RN permission to call lanie Wu and ask about pts home meds, as pt does not know most of my meds. Lanie Wu stated that she was not able to obtain the list she has at home at this current time and advised this RN to call in the AM around 0830 and she will be able to answer questions about meds. This RN will pass along to daysohft RN.
[2024-10-18] MEDS: 0.9% Normal Saline (1000mL) 1,000 ML 150 ML IV (22:00)
[2024-10-19] VITALS (11 sets, daily range): BP systolic 93–118; BP diastolic 39–89; PULSE 59–81; RESP 16–20; TEMP 36.3–36.6; O2SAT 88–97
[2024-10-19 01:23] LABS: Prothrombin Time (Protime)PT. 48.8 SECONDS (11.7-14.9)
--- NOTE | 2024-10-19 02:03 | NURSING ---
lab notified PCU of critical INR of 5.2 at 0128 10/19/24. lab says it was drawn at 1520 10/18/[address] Staton notified. stat redraw and hold lovenox. Brionna also aware that a dose of lovenox was already given once this shift.
[2024-10-19 02:38] LABS: Prothrombin Time (Protime)PT. 51.0 SECONDS (11.7-14.9)
--- NOTE | 2024-10-19 02:42 | PCM.HOSP.N ---
Hospitalist Note Patient with INR requested following admission, unfortunately the lab was run later than expected and resulted 5.2 off a lab drawn hours prior. To be cautious INR repeated. Repeat result 5.5. Given no active bleeding concerns will hold coumadin and trend INR. Will discontinue lovenox that was ordered in case of subtherapeutic INR.
[2024-10-19 07:32] LABS: Hematocrit 40.8 % (37-47); Hemoglobin 11.4 g/dL (12.0-15.0); Immature Granulocytes Count 0.020 X10^3/uL (0.0-0.0); Mean Corp Hgb Conc 27.9 g/dL (32-36); Mean Corpuscular Volume 91.9 fL (81-99); Mean Platelet Vol. 9.7 fl (6.2-12.0); NRBC Flagged by Analyzer 0 % (0-5); Platelet Count 194 K/mm3 (150-450); RBC Distribution Width CV 16.6 % (11.6-14.6); RBC Distribution Width SD 56.0 fl (35.1-43.9); Red Blood Count 4.44 M/mm3 (4.2-5.4); White Blood Count 12.9 K/mm3 (4.4-11.0)
[2024-10-19 08:13] LABS: Anion Gap 6 (5-15); BUN 21 mg/dL (4-19); BUN/Creat Ratio 18.4 RATIO (10-20); Calcium,Total 8.7 mg/dL (7.6-11.0); Carbon Dioxide 26.9 mmol/L (21.0-32.0); Chloride 104 mmol/L (98-108); Estimated Creatinine Clearance 72.53 ml/min (50-250); Glucose 86 mg/dL (70-99); Potassium 5.6 mmol/L (3.3-5.1)
[2024-10-19 08:24] LABS: Prothrombin Time (Protime)PT. 53.1 SECONDS (11.7-14.9)
[2024-10-19] MEDS: 0.9% Normal Saline (1000mL) 1,000 ML 999 ML IV (09:00)
[2024-10-19] MEDS: Ensure Plus High Protein 120 ML LIQUID PO ×3 (09:02→16:47)
--- NOTE | 2024-10-19 11:49 | WOUNDNOTE ---
wound photo: left axilla
--- NOTE | 2024-10-19 11:50 | WOUNDNOTE ---
wound photo: right axilla
--- NOTE | 2024-10-19 11:51 | WOUNDNOTE ---
wound photo: neck folds
--- NOTE | 2024-10-19 11:52 | WOUNDNOTE ---
wound photo: neck folds/behind ears
--- NOTE | 2024-10-19 11:53 | WOUNDNOTE ---
wound photo: abdominal folds
--- NOTE | 2024-10-19 11:53 | WOUNDNOTE ---
wound photo: left knee crease
[2024-10-19] MEDS: 0.9% Normal Saline (1000mL) 1,000 ML 125 ML IV ×2 (15:40→23:19)
--- NOTE | 2024-10-19 16:23 | PN_ITS ---
Subjective Subjective Patient seen and examined. She was seen with her nurse by her bedside. She was admitted with a complaint of weakness and failure to thrive as well as low blood sugars. She has no active complaints this morning. She denied any pain and denied any fever or chills, nausea or vomiting or any other symptoms. PT OT on board. He is on IV ceftriaxone for UTI. Objective Data Objective Data Vital Signs: Vital Signs Temp Pulse Resp BP Pulse Ox O2 Del Method O2 Flow Rate 97.5 F L 64 18 107/52 L 94 Bi-pap 4 10/19/24 15:25 10/19/24 16:10/19/24 15:25 10/19/24 15:25 10/19/24 15:10/19/24 15:10/19/24 15: Oxygen Flow Rate (L/min) 4 Oxygen Delivery Method Bi-pap Weight: 441 lb 9.374 oz Body Mass Index (BMI) 71.2 Intake & Output: Intake and Output for Last 24 Hours 10/17/24 10/18/24 10/19/24 23:59 23:59 23:59 Intake Total 290 / 290 2500 / 2500 Output Total 200 / 200 Balance 290 / 290 2300 / 2300 Lab / Micro Data 10/19/24 06:59 10/19/24 06:59 Labs: Laboratory Results - last 24 hr 10/18/24 14:53: POC Glucose 99 10/18/24 15:20: PT 48.8 H, INR 5.2 H*, Sodium Cancelled, Potassium Cancelled, Chloride Cancelled, Carbon Dioxide Cancelled, Anion Gap Cancelled, BUN Cancelled, Creatinine Cancelled, Estim Creat Clear Calc Cancelled, Est GFR (MDRD) Non-Af Cancelled, BUN/Creatinine Ratio Cancelled, Glucose Cancelled, Calcium Cancelled, Total Bilirubin Cancelled, AST Cancelled, ALT Cancelled, Alkaline Phosphatase Cancelled, Total Protein Cancelled, Albumin Cancelled, Globulin Cancelled, Albumin/Globulin Ratio Cancelled 10/18/24 16:00: POC Glucose 73 L 10/18/24 16:03: Sodium 136, Potassium 7.5 H*, Chloride 104, Carbon Dioxide 26.8, Anion Gap 5, BUN 23 H, Creatinine 1.27 H, Estim Creat Clear Calc 64.53, Est GFR (MDRD) Non-Af 43 L, BUN/Creatinine Ratio 18.2, Glucose 74, Calcium 8.4, Total Bilirubin 0.30, AST 33 H, ALT 5, Alkaline Phosphatase 73, Total Protein 5.5 L, A lbumin 2.2 L, Globulin 3.3, Albumin/Globulin Ratio 0.7 L 10/18/24 16:39: Urine Color Yellow, Urine Clarity Cloudy, Urine pH 6.0, Ur Specific [place] 1.020, Urine Protein 30 H, Urine Glucose (UA) Normal, Urine Ketones Negative, Urine Occult Blood 25 H, Urine Nitrite Positive H, Urine Bilirubin 1 H, Urine Urobilinogen Normal, Ur Leukocyte Esterase 500 H, Urine RBC 0-5 SEEN, Urine WBC 50-100 SEEN, Ur Squamous Epith Cells 10-25 SEEN, Urine Bacteria 1+, Urine Mucus 0 SEEN 10/18/24 18:17: Potassium 5.6 H 10/18/24 18:27: POC Glucose 68 L 10/18/24 22:05: POC Glucose 87 10/19/24 02:20: PT 51.0 H, INR 5.5 H* 10/19/24 06:20: POC Glucose 93 10/19/24 06:59: WBC 12.9 H, RBC 4.44, Hgb 11.4 L, Hct 40.8, MCV 91.9, MCH 25.7 L , MCHC 27.9 L, RDW Std Deviation 56.0 H, RDW Coeff of Ryan 16.6 H, Plt Count 194, MPV 9.7, Immature Gran % (Auto) 0.200, Neut % (Auto) 83.0 H, Lymph % (Auto) 9.7 L, [place] % (Auto) 6.7, Eos % (Auto) 0.2, Baso % (Auto) 0.2, Absolute Neuts (auto) 10.7 H, Absolute Lymphs (auto) 1.26, Nucleated RBC % 0, PT 53.1 H, INR 5.8 H*, Sodium 137, Potassium 5.6 H, Chloride 104, Carbon Dioxide 26.9, Anion Gap 6, BUN 21 H, Creatinine 1.13, Estim Creat Clear Calc 72.53, Est GFR (MDRD) Non-Af 49 L, BUN/Creatinine Ratio 18.4, Glucose 86, Hemoglobin A1c 5.2, Calcium 8.7 10/19/24 09:49: Lactic Acid < 1.0 10/19/24 11:09: POC Glucose 113 H 10/19/24 15:43: POC Glucose 133 H Micro: Microbiology 10/18/24 16:39 Urine Catheter - Reese Urine Culture - Preliminary Presumptive E. coli Rhythm Strip Rhythm Strip: Sinus bradycardia Rate: 51 Ectopy: None Physical Exam Const alert Constitutional Narrative: Class III obesity with BMI of 71.3. General Appearance: cooperative HEENT normocephalic and moist oral mucous membranes Eyes EOMs intact bilaterally Neck supple Neck Narrative: very short thick neck Lymph Lymphatic: no lymphedema noted Resp Resp Narrative: Moderately diminished breath sounds bibasilarly. This may also be due to her class III obesity. No wheezes or crackles. Was on 3 L of oxygen at time of review this subsequently went up to 4 L. Cardio regular rate, regular rhythm, S1 normal heart sound, S2 normal heart sound and no murmurs GI soft to palpation and non-tender GI Narrative: Very obese abdomen. Difficult to palpate for organomegaly due to obesity. Extremity normal capillary refill and no clubbing, cyanosis or edema General Extremity: no tenderness to palpation of joints or extremities Skin Skin Narrative: Extensive candidiasis in the folds of the abdomen in the neck and under the breasts. Neuro no focal motor deficits Motor Exam: general weakness Psych thought process normal and cooperative Appearance: appropriate Assessment & Plan Assessment/Plan (1) Cutaneous candidiasis: (2) UTI (urinary tract infection): (3) Failure to thrive: PLAN: Plan #Debility and failure to thrive * Patient lives at home and is taking care of by her who has dementia and is actually not able to provide her with such good care. She says she usually goes to to the bathroom and her clothes and on the bed and her will just change the bed. * She is unable to do much for herself. PT OT on board. Patient will likely need placement. #UTI: On IV ceftriaxone. Urine cultures pending. #Severe cutaneous candidiasis: Nystatin powder. Also started on p.o. fluconazole due to the severity of the candidiasis #Hyperkalemia: Potassium is 5.6 today. Patient given Kayexalate. Will monitor potassium. Hold all nephrotoxic meds. #Hypothyroidism: on synthroid # Type 2 diabetes mellitus: On insulin sliding scale. Accu-Cheks ACHS. #Atrial fibrillation: Was in sinus bradycardia on admission. Metoprolol on hold. On Coumadin which is on hold as INR was supratherapeutic at 5.8 today. #Supratherapeutic INR: INR 5.8 so we will give patient p.o. Kayexalate 2.5 mg x 1. Continue holding Coumadin. #JAYA: On CPAP Class III obesity: BMI is 71.3. Complicates acute care, expected recovery and prognosis. #Depression: On escitalopram DVT prophylaxis: Not indicated as patient has markedly elevated INR Charges/Coding Visit Charges Inpatient E&M: 75412 [facility] Hosp L3
--- NOTE | 2024-10-19 16:58 | CASEMGMT ---
Social Work Pt known to this SW from previous visit. Pt lives at home with her spouse and pt has been bed bound for several years. Pt's spouse is pt's caregiver, however spouse does have dementia. Pt has services through [facility]. Gasoline Pump Installer is Radha Valdovinos. Pt receives home health aids through [facility] 3 hours MWF and 4 hours TR. Pt also has an emergency response system. VM left with Gasoline Pump Installer notifying of admission and to discuss home environment and ability for pt's to provide needed care. SW met with pt to discuss discharge plan. Pt is awake but having difficulty answering SW questions appropriately. SW will follow up for discharge planning tomorrow in hopes that cognition is improved. YAMILET Geller
[2024-10-20 00:08] LABS: Potassium 5.8 mmol/L (3.3-5.1)
[2024-10-20 03:00] VITALS: PULSE 76
[2024-10-20 03:30] VITALS: BP 95/55; PULSE 83; RESP 18; TEMP 36.3; O2SAT 94
[2024-10-20 03:44] LABS: Prothrombin Time (Protime)PT. 46.7 SECONDS (11.7-14.9)
[2024-10-20 03:48] LABS: Hematocrit 38.9 % (37-47); Hemoglobin 10.8 g/dL (12.0-15.0); Immature Granulocytes Count 0.020 X10^3/uL (0.0-0.0); Mean Corp Hgb Conc 27.8 g/dL (32-36); Mean Corpuscular Volume 91.5 fL (81-99); Mean Platelet Vol. 9.4 fl (6.2-12.0); NRBC Flagged by Analyzer 0 % (0-5); Platelet Count 191 K/mm3 (150-450); RBC Distribution Width CV 16.5 % (11.6-14.6); RBC Distribution Width SD 55.8 fl (35.1-43.9); Red Blood Count 4.25 M/mm3 (4.2-5.4); White Blood Count 10.3 K/mm3 (4.4-11.0)
[2024-10-20 04:13] LABS: Anion Gap 7 (5-15); BUN 21 mg/dL (4-19); BUN/Creat Ratio 17.2 RATIO (10-20); Calcium,Total 8.8 mg/dL (7.6-11.0); Carbon Dioxide 28.8 mmol/L (21.0-32.0); Chloride 106 mmol/L (98-108); Estimated Creatinine Clearance 68.30 ml/min (50-250); Glucose 103 mg/dL (70-99); Potassium 5.5 mmol/L (3.3-5.1)
[2024-10-20 06:37] VITALS: O2SAT 93
[2024-10-20 08:55] VITALS: BP 102/52; PULSE 83; RESP 18; TEMP 36.5; O2SAT 92
[2024-10-20] MEDS: Ensure Plus High Protein 120 ML LIQUID PO ×3 (09:01→17:09)
[2024-10-20] MEDS: 0.9% Normal Saline (250mL Bag) 250 ML 15 ML IV (09:35)
--- NOTE | 2024-10-20 10:50 | PCM.PROGNOTE ---
Subjective Subjective Patient seen and examined with her nurse by her bedside. She was noted to have some episode of confusion overnight. She is on 4 L of oxygen today. She has no other complaints. Her INR is down to 4.9 today. Potassium is still however at 5.5. Review of systems otherwise negative. Objective Data Objective Data Vital Signs: Vital Signs Temp Pulse Resp BP Pulse Ox O2 Del Method O2 Flow Rate 97.7 F L 83 18 102/52 L 92 Nasal Cannula 4 10/20/24 08:55 10/20/24 08:55 10/20/24 08:55 10/20/24 08:55 10/20/24 08:55 10/20/24 08:55 10/20/24 08:55 Oxygen Flow Rate (L/min) 4 Oxygen Delivery Method Nasal Cannula Weight: 441 lb 9.374 oz Body Mass Index (BMI) 71.2 Intake & Output: Intake and Output for Last 24 Hours 10/18/24 10/19/24 10/20/24 23:59 23:59 23:59 Intake Total 290 / 290 3606.25 / 3606.25 1250.00 / 1250.00 Output Total 225 / 225 215 / 215 Balance 290 / 290 3381.25 / 3381.25 1035.00 / 1035.00 Lab / Micro Data 10/20/24 02:57 10/20/24 02:57 Labs: Laboratory Results - last 24 hr 10/19/24 09:49: Lactic Acid < 1.0 10/19/24 11:09: POC Glucose 113 H 10/19/24 15:43: POC Glucose 133 H 10/19/24 20:47: POC Glucose 124 H 10/19/24 23:20: Potassium 5.8 H 10/20/24 02:57: WBC 10.3, RBC 4.25, Hgb 10.8 L, Hct 38.9, MCV 91.5, MCH 25.4 L, MCHC 27.8 L, RDW Std Deviation 55.8 H, RDW Coeff of Ryan 16.5 H, Plt Count 191, MPV 9.4, Immature Gran % (Auto) 0.200, Neut % (Auto) 81.9 H, Lymph % (Auto) 10.6 L, [place] % (Auto) 7.0, Eos % (Auto) 0.2, Baso % (Auto) 0.1, Absolute Neuts (auto) 8.5 H, Absolute Lymphs (auto) 1.10, Nucleated RBC % 0, PT 46.7 H, INR 4.9 H*, Sodium 142, Potassium 5.5 H, Chloride 106, Carbon Dioxide 28.8, Anion Gap 7, BUN 21 H, Creatinine 1.20, Estim Creat Clear Calc 68.30, Est GFR (MDRD) Non-Af 46 L, BUN/Creatinine Ratio 17.2, Glucose 103 H, Calcium 8.8 10/20/24 06:31: POC Glucose 92 Micro: Microbiology 10/18/24 16:39 Urine Catheter - Reese Urine Culture - Final Presumptive E. coli Rhythm Strip Rhythm Strip: Sinus bradycardia Rate: 51 Ectopy: None Physical Exam Const alert and no apparent distress Constitutional Narrative: Class III obesity with BMI of 71.3. Episodic confusion. General Appearance: cooperative HEENT normocephalic, head/scalp atraumatic and moist oral mucous membranes Eyes PERRL and EOMs intact bilaterally Neck supple Neck Narrative: very short thick neck Lymph Lymphatic: no lymphedema noted Resp normal respiratory effort, no retractions, no use of accessory muscles and clear to auscultation bilaterally Resp Narrative: Moderately diminished breath sounds bibasilarly. This may also be due to her class III obesity. No wheezes or crackles. Was on 4L of oxygen at time of review this subsequently went up to 4 L. Cardio regular rate, regular rhythm, S1 normal heart sound, S2 normal heart sound and no murmurs GI normal to inspection, nondistended, normoactive bowel sounds, soft to palpation and non-tender GI Narrative: Very obese abdomen. Difficult to palpate for organomegaly due to obesity. Extremity normal capillary refill and no clubbing, cyanosis or edema Extremity Narrative: 2+ lower extremity edema General Extremity: no tenderness to palpation of joints or extremities Skin Skin Narrative: Extensive candidiasis in the folds of the abdomen in the neck and under the breasts. Neuro no focal motor deficits Sensorium / Orientation: awake and alert Motor Exam: general weakness Psych thought process normal, cooperative and affect normal Appearance: appropriate Assessment & Plan Assessment/Plan (1) Cutaneous candidiasis: (2) UTI (urinary tract infection): (3) Failure to thrive: PLAN: Plan #Debility and failure to thrive Patient lives at home and is taking care of by her who has dementia and is actually not able to provide her with such good care. She says she usually goes to to the bathroom and her clothes and on the bed and her will just change the bed. She is unable to do much for herself. PT OT on board. Patient will likely need placement. #UTI: On IV ceftriaxone. Urine cultures growing E.coli which is pansensitive. #Severe cutaneous candidiasis: Nystatin powder. Also started on p.o. fluconazole due to the severity of the candidiasis #Hyperkalemia: Potassium is 5.5 today. Will give kayexalate again. Hold all nephrotoxic meds. #Hypothyroidism: on synthroid # Type 2 diabetes mellitus: On insulin sliding scale. Accu-Cheks ACHS. #Atrial fibrillation: Was in sinus bradycardia on admission. Bradycardia has resolved. Will resume metoprolol. On Coumadin which is on hold as INR remains supratherapeutic.\ #Supratherapeutic INR: INR 5.8 yesterday so we will give patient p.o. vitamin K 2.5 mg x 1. INR today is 4.9. Continue holding Coumadin. #JAYA: On CPAP Class III obesity: BMI is 71.3. Complicates acute care, expected recovery and prognosis. #Depression: On escitalopram DVT prophylaxis: Not indicated as patient has markedly elevated INR. INR today is 4.9. Charges/Coding Visit Charges Inpatient E&M: 40397 Subs Hosp L2
[2024-10-20] MEDS: 0.9% Saline Lock 10 ML Syringe IV ×3 (13:52→20:32)
--- NOTE | 2024-10-20 14:07 | CASEMGMT ---
Social Work SW met with pt to discuss discharge plan. Pt is A&O and able to communicate with SW appropriately. Pt lives at home with her spouse who is her primary caregiver. Pt does confirm spouse has dementia, but is able to assist as needed. Pt's dgt lives next door and assists as able but does have her own health issues that limit her. Pt feels she has been getting along at home okay with the home beverly aides and her spouses help and pt refuses to go to SNF at this time. Pt will likely need ambulance transportation home. YAMILET Geller
[2024-10-20 15:49] VITALS: BP 121/56; PULSE 99; RESP 18; TEMP 36.5; O2SAT 93
[2024-10-20] MEDS: 0.9% Normal Saline (1000mL) 1,000 ML 125 ML IV (18:39)
[2024-10-20 20:30] VITALS: BP 106/54; PULSE 100; RESP 20; TEMP 36.6; O2SAT 95
[2024-10-20] MEDS: hydrOXYzine PAM 25 MG Capsule PO (22:20)
[2024-10-21 02:00] VITALS: O2SAT 94
[2024-10-21] MEDS: 0.9% Normal Saline (1000mL) 1,000 ML 125 ML IV (02:01)
[2024-10-21 02:50] VITALS: BP 140/36; PULSE 77; RESP 18; TEMP 36.6; O2SAT 94
[2024-10-21 07:06] LABS: Hematocrit 36.1 % (37-47); Hemoglobin 10.5 g/dL (12.0-15.0); Immature Granulocytes Count 0.030 X10^3/uL (0.0-0.0); Mean Corp Hgb Conc 29.1 g/dL (32-36); Mean Corpuscular Volume 88.9 fL (81-99); Mean Platelet Vol. 9.2 fl (6.2-12.0); NRBC Flagged by Analyzer 0.3 % (0-5); Platelet Count 184 K/mm3 (150-450); RBC Distribution Width CV 16.7 % (11.6-14.6); RBC Distribution Width SD 54.5 fl (35.1-43.9); Red Blood Count 4.06 M/mm3 (4.2-5.4); White Blood Count 7.7 K/mm3 (4.4-11.0)
[2024-10-21 07:36] LABS: Prothrombin Time (Protime)PT. 35.6 SECONDS (11.7-14.9)
[2024-10-21 07:58] LABS: Anion Gap 10 (5-15); BUN 20 mg/dL (4-19); BUN/Creat Ratio 17.3 RATIO (10-20); Calcium,Total 8.3 mg/dL (7.6-11.0); Carbon Dioxide 24.3 mmol/L (21.0-32.0); Chloride 104 mmol/L (98-108); Estimated Creatinine Clearance 69.45 ml/min (50-250); Glucose 132 mg/dL (70-99); Potassium 4.7 mmol/L (3.3-5.1)
[2024-10-21 08:48] VITALS: BP 136/49; PULSE 83; RESP 17; TEMP 36.5; O2SAT 94
[2024-10-21] MEDS: Ensure Plus High Protein 120 ML LIQUID PO (11:43)
--- NOTE | 2024-10-21 12:14 | PN_ITS ---
Subjective Subjective Patient seen and examined. Disorder with the nurse by bedside. No active complaints. She is on 5 L of oxygen by nasal cannula today.. Urine culture growing E. coli which is pansensitive. Blood cultures negative. Objective Data Objective Data Vital Signs: Vital Signs Temp Pulse Resp BP Pulse Ox O2 Del Method O2 Flow Rate 97.7 F L 83 17 136/49 H 94 CPAP 5 10/21/24 08:48 10/21/24 08:48 10/21/24 08:48 10/21/24 08:48 10/21/24 08:48 10/21/24 09:11 10/21/24 09:11 Oxygen Flow Rate (L/min) 5 Oxygen Delivery Method CPAP Weight: 441 lb 9.374 oz Body Mass Index (BMI) 71.2 Intake & Output: Intake and Output for Last 24 Hours 10/19/24 10/20/24 10/21/24 23:59 23:59 23:59 Intake Total 3606.25 / 3606.25 1674.50 / 1674.50 / Output Total 225 / 225 840 / 840 Balance 3381.25 / 3381.25 834.50 / 834.50 / Lab / Micro Data 10/21/24 06:29 10/21/24 06:29 Labs: Laboratory Results - last 24 hr 10/20/24 17:06: POC Glucose 141 H 10/20/24 20:23: POC Glucose 183 H 10/21/24 06:23: POC Glucose 129 H 10/21/24 06:29: WBC 7.7, RBC 4.06 L, Hgb 10.5 L, Hct 36.1 L, MCV 88.9, MCH 25.9 L, MCHC 29.1 L, RDW Std Deviation 54.5 H, RDW Coeff of Ryan 16.7 H, Plt Count 184, MPV 9.2, Immature Gran % (Auto) 0.400, Neut % (Auto) 70.0, Lymph % (Auto) 20.1, [place] % (Auto) 7.9, Eos % (Auto) 1.2, Baso % (Auto) 0.4, Absolute Neuts (auto) 5.4, Absolute Lymphs (auto) 1.54, Nucleated RBC % 0.3, PT 35.6 H, INR 3.5, Sodium 139, Potassium 4.7, Chloride 104, Carbon Dioxide 24.3, Anion Gap 10, BUN 20 H, Creatinine 1.18, Estim Creat Clear Calc 69.45, Est GFR (MDRD) Non-Af 47 L, BUN/Creatinine Ratio 17.3, Glucose 132 H, Calcium 8.3 10/21/24 11:42: POC Glucose 162 H Micro: Microbiology 10/19/24 10:12 Blood Culture (Wb) - Anticubital Right Blood Culture - Preliminary No growth in 48 hours. 10/19/24 09:49 Blood Culture (Wb) - Breast Blood Culture - Preliminary No growth in 48 hours. 10/18/24 16:39 Urine Catheter - Reese Urine Culture - Final Presumptive E. coli Rhythm Strip Rhythm Strip: Sinus bradycardia Rate: 51 Ectopy: None Physical Exam Const alert and no apparent distress Constitutional Narrative: Class III obesity with BMI of 71.3. Episodic confusion. General Appearance: cooperative HEENT normocephalic, head/scalp atraumatic and moist oral mucous membranes Eyes PERRL and EOMs intact bilaterally Neck supple Neck Narrative: very short thick neck Lymph Lymphatic: no lymphedema noted Resp normal respiratory effort, no retractions, no use of accessory muscles and clear to auscultation bilaterally Resp Narrative: Moderately diminished breath sounds bibasilarly. This may also be due to her class III obesity. No wheezes or crackles. Was on 5 L of oxygen at time of review Cardio regular rate, regular rhythm, S1 normal heart sound, S2 normal heart sound and no murmurs GI normal to inspection, nondistended, normoactive bowel sounds, soft to palpation, non-tender and non-distended GI Narrative: Very obese abdomen. Difficult to palpate for organomegaly due to obesity. Extremity normal capillary refill and no clubbing, cyanosis or edema Extremity Narrative: 2+ lower extremity edema General Extremity: no tenderness to palpation of joints or extremities Skin Skin Narrative: Extensive candidiasis in the folds of the abdomen in the neck and under the breasts. Neuro no focal motor deficits Sensorium / Orientation: awake and alert Motor Exam: general weakness Psych thought process normal, cooperative and affect normal Appearance: appropriate Assessment & Plan Assessment/Plan (1) Cutaneous candidiasis: (2) UTI (urinary tract infection): (3) Failure to thrive: PLAN: Plan #Debility and failure to thrive * Patient lives at home and is taking care of by her who has dementia and is actually not able to provide her with such good care. She says she usually goes to to the bathroom and her clothes and on the bed and her will just change the bed. * She is unable to do much for herself. PT OT on board. Patient will likely need placement, but refusing it as she says she has enough assistance at home. #UTI: On IV ceftriaxone. Urine cultures growing E.coli which is pansensitive. Complete a 5 day course of antibiotics #Severe cutaneous candidiasis: Nystatin powder. Also started on p.o. fluconazole due to the severity of the candidiasis #Hyperkalemia: resolved. K is 4.7 today #Hypothyroidism: on synthroid # Type 2 diabetes mellitus: On insulin sliding scale. Accu-Cheks ACHS. #Atrial fibrillation: on metoprolol On Coumadin which is on hold as INR remains supratherapeutic.\ #Supratherapeutic INR: resolved,. INR is down to 3.5 today. #JAYA: On CPAP Class III obesity: BMI is 71.3. Complicates acute care, expected recovery and prognosis. #Depression: On escitalopram DVT prophylaxis: Not indicated as patient has markedly elevated INR. INR today is down to 3.5. Resume coumadin tomorrow once INR is closer to normal range Disposition: refusing placement. Likely DC over next 24-48 hours Charges/Coding Visit Charges Inpatient E&M: 87404 Subs Hosp L2
[2024-10-21 15:17] VITALS: BP 102/61; PULSE 91; RESP 18; TEMP 36.4; O2SAT 96
[2024-10-21 21:10] VITALS: BP 130/90; PULSE 87; RESP 20; TEMP 36.6; O2SAT 95
[2024-10-22 01:33] VITALS: BMI 72.5
[2024-10-22 03:30] VITALS: BP 100/56; PULSE 89; RESP 18; TEMP 36.6; O2SAT 94
[2024-10-22 07:32] LABS: Hematocrit 35.7 % (37-47); Hemoglobin 10.1 g/dL (12.0-15.0); Immature Granulocytes Count 0.040 X10^3/uL (0.0-0.0); Mean Corp Hgb Conc 28.3 g/dL (32-36); Mean Corpuscular Volume 89.5 fL (81-99); Mean Platelet Vol. 9.0 fl (6.2-12.0); NRBC Flagged by Analyzer 0 % (0-5); Platelet Count 164 K/mm3 (150-450); RBC Distribution Width CV 16.7 % (11.6-14.6); RBC Distribution Width SD 54.9 fl (35.1-43.9); Red Blood Count 3.99 M/mm3 (4.2-5.4); White Blood Count 7.5 K/mm3 (4.4-11.0)
[2024-10-22 07:58] VITALS: O2SAT 96
[2024-10-22 08:00] LABS: Anion Gap 7 (5-15); BUN 21 mg/dL (4-19); BUN/Creat Ratio 17.9 RATIO (10-20); Calcium,Total 8.4 mg/dL (7.6-11.0); Carbon Dioxide 26.7 mmol/L (21.0-32.0); Chloride 105 mmol/L (98-108); Estimated Creatinine Clearance 70.89 ml/min (50-250); Glucose 178 mg/dL (70-99); Potassium 4.2 mmol/L (3.3-5.1)
[2024-10-22 08:39] LABS: Prothrombin Time (Protime)PT. 35.8 SECONDS (11.7-14.9)
[2024-10-22 09:00] VITALS: BP 129/99; PULSE 85; RESP 18; TEMP 36.6; O2SAT 95
[2024-10-22] MEDS: Ergocalciferol 1.25 MG (50, 000 UNIT) Capsule PO (09:13)
[2024-10-22] MEDS: 0.9% Saline Lock 10 ML Syringe IV (09:14)
--- NOTE | 2024-10-22 10:46 | CASEMGMT ---
Social Work SW met w/pt to discuss discharge plan. Pt wants to return home, does not want SNF at this time. SW inquired if it would be okay to speak to her daughter regarding this, pt is agreeable to this. Pt spoke of being in pain throughout our conversation. SW called daughter Jazmin, she confirms plan is for pt to return home w/help of family, also stating plan is not for SNF. However she states she cannot get help to get pt into the home until tomorrow. SW let physician know about pt's pain and inability to get pt into the home today, physician will d/c pt tomorrow. SW let pt and daughter know. SW will continue to follow. SOFYA Parada
--- NOTE | 2024-10-22 13:22 | PN_ITS ---
Subjective Subjective Patient seen and examined. She complained of pain in her lower extremities. Review of systems is otherwise negative. She has remained hemodynamically stable. She remains on 4L of oxygen by nasal canula Objective Data Objective Data Vital Signs: Vital Signs Temp Pulse Resp BP Pulse Ox O2 Del Method O2 Flow Rate 97.8 F 85 18 129/99 H 95 Nasal Cannula 4 10/22/24 09:00 10/22/24 09:00 10/22/24 09:00 10/22/24 09:00 10/22/24 09:00 10/22/24 10:00 10/22/24 10:00 Oxygen Flow Rate (L/min) 4 Oxygen Delivery Method Nasal Cannula Weight: 449 lb 4.833 oz Body Mass Index (BMI) 72.5 Intake & Output: Intake and Output for Last 24 Hours 10/20/24 10/21/24 10/22/24 23:59 23:59 23:59 Intake Total 1674.50 / 1674.50 2830.83 / 2830.83 1150 / 1150 Output Total 840 / 840 325 / 325 250 / 250 Balance 834.50 / 834.50 2505.83 / 2505.83 900 / 900 Lab / Micro Data 10/22/24 07:20 10/22/24 07:20 Labs: Laboratory Results - last 24 hr 10/21/24 16:53: POC Glucose 164 H 10/21/24 20:15: POC Glucose 246 H 10/22/24 06:24: POC Glucose 165 H 10/22/24 07:20: WBC 7.5, RBC 3.99 L, Hgb 10.1 L, Hct 35.7 L, MCV 89.5, MCH 25.3 L, MCHC 28.3 L, RDW Std Deviation 54.9 H, RDW Coeff of Ryan 16.7 H, Plt Count 164, MPV 9.0, Immature Gran % (Auto) 0.500, Neut % (Auto) 66.3, Lymph % (Auto) 23.0, [place] % (Auto) 7.1, Eos % (Auto) 2.7, Baso % (Auto) 0.4, Absolute Neuts (auto) 4.9, Absolute Lymphs (auto) 1.71, Nucleated RBC % 0, PT 35.8 H, INR 3.5, Sodium 139, Potassium 4.2, Chloride 105, Carbon Dioxide 26.7, Anion Gap 7, BUN 21 H, Creatinine 1.17, Estim Creat Clear Calc 70.89, Est GFR (MDRD) Non-Af 47 L, BUN/Creatinine Ratio 17.9, Glucose 178 H, Calcium 8.4 10/22/24 12:20: POC Glucose 214 H Micro: Microbiology 10/19/24 10:12 Blood Culture (Wb) - Anticubital Right Blood Culture - Preliminary No growth in 48 hours. 10/19/24 09:49 Blood Culture (Wb) - Breast Blood Culture - Preliminary No growth in 48 hours. 10/18/24 16:39 Urine Catheter - Reese Urine Culture - Final Presumptive E. coli Rhythm Strip Rhythm Strip: Sinus bradycardia Rate: 51 Ectopy: None Physical Exam Const alert, oriented x3 and no apparent distress Constitutional Narrative: Class III obesity with BMI of 71.3. Episodic confusion. General Appearance: cooperative HEENT normocephalic, head/scalp atraumatic and moist oral mucous membranes Eyes PERRL and EOMs intact bilaterally Neck supple Neck Narrative: very short thick neck Lymph Lymphatic: no lymphedema noted Resp Resp Narrative: Moderately diminished breath sounds bibasilarly. This may also be due to her class III obesity. No wheezes or crackles. On 4L of oxygen by nasal canula Cardio regular rate, regular rhythm, S1 normal heart sound, S2 normal heart sound and no murmurs GI GI Narrative: Very obese abdomen. Difficult to palpate for organomegaly due to obesity. Extremity normal capillary refill and no clubbing, cyanosis or edema Extremity Narrative: 2+ lower extremity edema General Extremity: no tenderness to palpation of joints or extremities Skin Skin Narrative: Extensive candidiasis in the folds of the abdomen in the neck and under the breasts. Neuro no focal motor deficits Sensorium / Orientation: awake and alert Motor Exam: general weakness Psych thought process normal, cooperative and affect normal Appearance: appropriate Assessment & Plan Assessment/Plan (1) Cutaneous candidiasis: (2) UTI (urinary tract infection): (3) Failure to thrive: PLAN: Plan #Debility and failure to thrive * Patient lives at home and is taking care of by her who has dementia and is actually not able to provide her with such good care. She says she usually goes to to the bathroom and her clothes and on the bed and her will just change the bed. * She is unable to do much for herself. PT OT on board. Patient will likely need placement, but refusing it as she says she has enough assistance at home. #UTI: On IV ceftriaxone. Urine cultures growing E.coli which is pansensitive. Complete a 5 day course of antibiotics. Today is day 4. One more day of IV antibiotics to complete a 5 day course. #Severe cutaneous candidiasis: Nystatin powder. On p.o. fluconazole due to the severity of the candidiasis #Hyperkalemia: resolved. K is 4.2 today #Hypothyroidism: on synthroid # Type 2 diabetes mellitus: On insulin sliding scale. Accu-Cheks ACHS. #Atrial fibrillation: on metoprolol On Coumadin which is on hold as INR remains supratherapeutic. #Supratherapeutic INR: resolved,. INR remains 3.5 today. #AJYA: On CPAP Class III obesity: BMI is 71.3. Complicates acute care, expected recovery and prognosis. #Depression: On escitalopram DVT prophylaxis: Not indicated as patient has markedly elevated INR. INR today remains 3.5. Disposition: refusing placement. Stable for DC, but wants to leave tomorrow as she doesnt have anyone to help her get into her house today. FOr DC tomorrow. Charges/Coding Visit Charges Inpatient E&M: 35104 Subs Hosp L2
[2024-10-22 14:31] VITALS: BP 151/56; PULSE 103; RESP 20; TEMP 36.7; O2SAT 91
[2024-10-22 16:43] VITALS: BP 111/58; PULSE 91; RESP 20; TEMP 36.6; O2SAT 94
[2024-10-22 19:00] VITALS: PULSE 82
[2024-10-23 00:29] VITALS: BP 116/61; PULSE 72; RESP 22; TEMP 36.7; O2SAT 98
[2024-10-23 05:30] LABS: Hematocrit 39.0 % (37-47); Hemoglobin 10.6 g/dL (12.0-15.0); Immature Granulocytes Count 0.030 X10^3/uL (0.0-0.0); Mean Corp Hgb Conc 27.2 g/dL (32-36); Mean Corpuscular Volume 92.0 fL (81-99); Mean Platelet Vol. 9.4 fl (6.2-12.0); NRBC Flagged by Analyzer 0 % (0-5); Platelet Count 171 K/mm3 (150-450); RBC Distribution Width CV 16.9 % (11.6-14.6); RBC Distribution Width SD 57.0 fl (35.1-43.9); Red Blood Count 4.24 M/mm3 (4.2-5.4); White Blood Count 7.1 K/mm3 (4.4-11.0)
[2024-10-23 05:56] LABS: Prothrombin Time (Protime)PT. 35.9 SECONDS (11.7-14.9)
[2024-10-23 06:00] VITALS: BP 112/51; PULSE 70; RESP 18; TEMP 36.7; O2SAT 92
[2024-10-23 06:29] LABS: Anion Gap 8 (5-15); BUN 20 mg/dL (4-19); BUN/Creat Ratio 17.5 RATIO (10-20); Calcium,Total 8.6 mg/dL (7.6-11.0); Carbon Dioxide 25.5 mmol/L (21.0-32.0); Chloride 105 mmol/L (98-108); Estimated Creatinine Clearance 72.76 ml/min (50-250); Glucose 191 mg/dL (70-99); Potassium 4.5 mmol/L (3.3-5.1)
[2024-10-23 08:15] VITALS: O2SAT 95
[2024-10-23 10:50] VITALS: BP 100/50; PULSE 115; RESP 20; TEMP 36.4; O2SAT 97
--- NOTE | 2024-10-23 14:00 | CASEMGMT ---
Social Work Spoke with patient's daughter Jazmin Wick at [phone]. Jazmin reports that caregiver to assist patient with transition home is only at the house until 1600 today. This film writer collaborated with RN MARIA G Fisher regarding physician rounding today. It was anticipated the patient could be discharged today. Called physician ambulance to schedule transport home, with arrival before 1600 when there was a caregiver to assist with safe transition. Due to patient's multiple medical needs physicians determined a need to have 2 crews available for transport home and this would not be able to be arranged before the 1600 cutoff. Arrange transport for 10/24/2024, with a pickup of [address] Sanchez, to update, including barriers for discharge today. Will plan for discharge on 10/24/2024 when necessary support is available at home. Called patient's daughter back and left voicemail with update. Spoke with patient's daughter later on the phone to confirm plan. Daughter expressed much appreciation for the hospital working on a safe transition home. Plan: Return home via physician ambulance to [facility] on 10/24/2024 at 12 noon. Call direction nursing home assistant at discharge for resumption of home health aide services. -SOFYA Ku, [employer] INSPECTOR *This note was generated with [employer] dictation software. It may contain incorrect words, spelling, and punctuation that were not noted in review of the chart prior to signing*
--- NOTE | 2024-10-23 15:42 | PN_ITS ---
Subjective Subjective Patient seen and examined with her nurse by her bedside. She had no active complaints at time of my review. Plan was to discharge her today but the ambulance service that is transporting her home said they would not have enough staff to be able to transport her home today and will be available tomorrow at 12:00 to send enough staff to be able to get her into her home safely. Objective Data Objective Data Vital Signs: Vital Signs Temp Pulse Resp BP Pulse Ox O2 Del Method O2 Flow Rate 97.5 F L 115 H 20 H 100/50 L 97 Nasal Cannula 4 10/23/24 10:50 10/23/24 10:50 10/23/24 10:50 10/23/24 10:50 10/23/24 10:50 10/23/24 10:50 10/23/24 10:50 Oxygen Flow Rate (L/min) 4 Oxygen Delivery Method Nasal Cannula Weight: 449 lb 4.833 oz Body Mass Index (BMI) 72.5 Intake & Output: Intake and Output for Last 24 Hours 10/21/24 10/22/24 10/23/24 23:59 23:59 23:59 Intake Total 2830.83 / 2830.83 1550 / 1550 170 / 170 Output Total 325 / 325 370 / 370 300 / 300 Balance 2505.83 / 2505.83 1180 / 1180 -130 / -130 Lab / Micro Data 10/23/24 05:01 10/23/24 05:01 Labs: Laboratory Results - last 24 hr 10/22/24 16:39: POC Glucose 221 H 10/23/24 00:33: POC Glucose 219 H 10/23/24 05:01: WBC 7.1, RBC 4.24, Hgb 10.6 L, Hct 39.0, MCV 92.0, MCH 25.0 L, M CHC 27.2 L, RDW Std Deviation 57.0 H, RDW Coeff of Ryan 16.9 H, Plt Count 171, MPV 9.4, Immature Gran % (Auto) 0.400, Neut % (Auto) 77.3 H, Lymph % (Auto) 14.9 L, [place] % (Auto) 6.3, Eos % (Auto) 1.0, Baso % (Auto) 0.1, Absolute Neuts (auto) 5.5, Absolute Lymphs (auto) 1.06, Nucleated RBC % 0, PT 35.9 H, INR 3.5, Sodium 138, Potassium 4.5, Chloride 105, Carbon Dioxide 25.5, Anion Gap 8, BUN 20 H, Creatinine 1.14, Estim Creat Clear Calc 72.76, Est GFR (MDRD) Non-Af 49 L, BUN/Creatinine Ratio 17.5, Glucose 191 H, Calcium 8.6 10/23/24 06:26: POC Glucose 178 H 10/23/24 11:40: POC Glucose 171 H Micro: Microbiology 10/19/24 10:12 Blood Culture (Wb) - Anticubital Right Blood Culture - Preliminary No growth in 48 hours. 10/19/24 09:49 Blood Culture (Wb) - Breast Blood Culture - Preliminary No growth in 48 hours. 10/18/24 16:39 Urine Catheter - Reese Urine Culture - Final Presumptive E. coli Rhythm Strip Rhythm Strip: Sinus bradycardia Rate: 51 Ectopy: None Physical Exam Const alert, oriented x3 and no apparent distress Constitutional Narrative: Class III obesity with BMI of 71.3. Episodic confusion. General Appearance: cooperative HEENT normocephalic, head/scalp atraumatic and moist oral mucous membranes Eyes PERRL and EOMs intact bilaterally Neck supple Neck Narrative: very short thick neck Lymph Lymphatic: no lymphedema noted Resp normal respiratory effort Resp Narrative: Moderately diminished breath sounds bibasilarly. This may also be due to her class III obesity. No wheezes or crackles. was still on nocturnal bipap at time of review. Cardio regular rate, regular rhythm, S1 normal heart sound, S2 normal heart sound and no murmurs GI normal to inspection, nondistended, normoactive bowel sounds and soft to palpation GI Narrative: Very obese abdomen. Difficult to palpate for organomegaly due to obesity. Extremity normal capillary refill and no clubbing, cyanosis or edema Extremity Narrative: 2+ lower extremity edema General Extremity: no tenderness to palpation of joints or extremities Skin Skin Narrative: Extensive candidiasis in the folds of the abdomen in the neck and under the breasts is improving. Neuro no focal motor deficits and no sensory deficits noted Sensorium / Orientation: awake and alert Motor Exam: general weakness Psych thought process normal, cooperative and affect normal Appearance: appropriate Assessment & Plan Assessment/Plan (1) Cutaneous candidiasis: (2) UTI (urinary tract infection): (3) Failure to thrive: PLAN: Plan #Debility and failure to thrive * Patient lives at home and is taking care of by her who has dementia and is actually not able to provide her with such good care. She says she usually goes to to the bathroom and her clothes and on the bed and her will just change the bed. * She is unable to do much for herself. PT OT on board. Patient will likely need placement, but refusing it as she says she has enough assistance at home. #UTI: On IV ceftriaxone. Urine cultures growing E.coli which is pansensitive. Complete a 5 day course of antibiotics. DC today after 5 days of antibiotics. #Severe cutaneous candidiasis: On Nystatin powder. On p.o. fluconazole due to the severity of the candidiasis #Hyperkalemia: resolved. K is 4.2 today #Hypothyroidism: on synthroid # Type 2 diabetes mellitus: On insulin sliding scale. Accu-Cheks ACHS. #Atrial fibrillation: on metoprolol On Coumadin which is on hold as INR remains supratherapeutic. #Supratherapeutic INR: resolved,. INR still remains 3.5 today. #JAYA: On CPAP Class III obesity: BMI is 71.3. Complicates acute care, expected recovery and prognosis. #Depression: On escitalopram DVT prophylaxis: Not indicated as patient has markedly elevated INR. INR today remains 3.5. Disposition: For discharge tomorrow so ambulance service can safely transport her into her home. They do not have enough staff today to be able to do this and will be able to do it tomorrow. Charges/Coding Visit Charges Inpatient E&M: 20177 Subs Hosp L2
[2024-10-23 16:00] VITALS: BP 91/51; PULSE 108; RESP 18; TEMP 36.4; O2SAT 94
[2024-10-23 20:55] VITALS: BP 122/53; PULSE 81; RESP 18; TEMP 35.9; O2SAT 95
[2024-10-24 03:35] VITALS: BP 120/86; PULSE 80; RESP 20; TEMP 36.4; O2SAT 90
[2024-10-24 03:58] VITALS: BMI 71.7
[2024-10-24 06:47] LABS: Hematocrit 37.0 % (37-47); Hemoglobin 10.3 g/dL (12.0-15.0); Immature Granulocytes Count 0.040 X10^3/uL (0.0-0.0); Mean Corp Hgb Conc 27.8 g/dL (32-36); Mean Corpuscular Volume 91.6 fL (81-99); Mean Platelet Vol. 9.3 fl (6.2-12.0); NRBC Flagged by Analyzer 0 % (0-5); Platelet Count 160 K/mm3 (150-450); RBC Distribution Width CV 16.6 % (11.6-14.6); RBC Distribution Width SD 56.2 fl (35.1-43.9); Red Blood Count 4.04 M/mm3 (4.2-5.4); White Blood Count 6.8 K/mm3 (4.4-11.0)
[2024-10-24 07:58] LABS: Anion Gap 6 (5-15); BUN 20 mg/dL (4-19); BUN/Creat Ratio 18.3 RATIO (10-20); Calcium,Total 8.7 mg/dL (7.6-11.0); Carbon Dioxide 27.4 mmol/L (21.0-32.0); Chloride 105 mmol/L (98-108); Estimated Creatinine Clearance 74.16 ml/min (50-250); Glucose 214 mg/dL (70-99); Potassium 4.9 mmol/L (3.3-5.1)
[2024-10-24 09:25] VITALS: BP 100/46; PULSE 84; RESP 18; TEMP 36.5; O2SAT 92
[2024-10-24 10:12] VITALS: O2SAT 93
--- NOTE | 2024-10-24 10:58 | DCINST_ITS ---
Discharge Instructions DC O2, CPAP, BIPAP needs Home O2 Discharge instructions: No Dressing / Incision Discharge Activity: Return to Normal Activity Weight Bearing Status: Weight bearing as tolerated Dressing / Incision Call your doctor if you observe: Fever of 101 or Higher, Shortness of breath and Swelling in the ankles Follow Up Care Test Results: Test results from this visit will be discussed in further detail at your follow- up appointment, if applicable. Discharge Plan Admission Admit Date/Time: 10/18/24 18:29 Primary Reason for Your Visit: UTI, failure to thrive Attending Provider: Haydee Sanchez Primary Care Provider: Socrates Spangler Consulting Providers: Nico Garcia Instructions Patient Instructions: ED Weakness Uncertain Cause, ED UTIs Women Discharge Orders/Prescriptions Prescriptions: New Eliquis 5 mg tablet 5 mg PO BID Qty: 60 2RF Continued atorvastatin 20 MG tablet 20 mg PO QHS Patient Comments: cholesterol metoprolol tartrate 50 MG tablet 25 mg PO BID Patient Comments: blood pressure hydrocortisone 1 APPLIC cream 1 applicatio topical BID nystatin [Nyamyc] 1 APPLIC bottle 1 applic topical BID 0RF Patient Comments: uses at times docusate sodium 100 MG capsule 100 mg PO DAILY pantoprazole 40 mg tablet,delayed release (DR/EC) 40 mg PO DAILY glipizide 10 mg tablet 10 mg PO BID ergocalciferol (vitamin D2) 1,250 mcg (50,000 unit) capsule 1,250 mcg PO QWEEK hydroxyzine pamoate 25 mg capsule 25 mg PO DAILY PRN (Reason: itching) escitalopram oxalate 10 mg tablet 10 mg PO QHS Patient Comments: at 9PM loratadine [Allergy Relief (loratadine)] 10 mg tablet 10 mg PO DAILY levothyroxine 112 mcg tablet 112 mcg PO DAILY potassium chloride 10 mEq tablet extended release 10 meq PO DAILY nystatin 100,000 unit/gram cream 1 applic topical DAILY Patient Comments: uses at times montelukast 10 mg tablet 10 mg PO DAILY magnesium chloride [Mag 64] 64 mg tablet,delayed release (DR/EC) 64 mg PO DAILY Discontinued insulin glargine-yfgn 100 unit/mL (3 mL) insulin pen 35 unit subcut DAILY Patient Comments: takes 35 units warfarin 5 mg tablet 5 mg PO DAILY Referrals / Follow Up: Socrates Spangler MD [Primary Care Provider] - Within 1 Week Disposition Disposition (needs filled in before D/C Order can be placed): Home Health Service
--- NOTE | 2024-10-24 11:05 | PCM.DC.SUM ---
Providers Date of Admission: 10/18/24 Date of Discharge: 10/24/24 Primary Care Physician: Dr. Socrates Spangler MD Consultations 10/18/24 19:58 Consult: Onc/Wound/equipment service technician Routine Comment: Reason For Visit: FAILURE TO THRIVE Diagnosis Discharge Diagnosis (1) Cutaneous candidiasis: Status: Acute Code(s): B37.2 - Candidiasis of skin and nail (2) UTI (urinary tract infection): Status: Acute Code(s): N39.0 - Urinary tract infection, site not specified (3) Failure to thrive: Status: Acute Plan #Debility and failure to thrive Patient lives at home and is taking care of by her who has dementia and is actually not able to provide her with such good care. She says she usually goes to to the bathroom and her clothes and on the bed and her will just change the bed. She is unable to do much for herself. PT OT on board. Patient will likely need placement, but refusing it as she says she has enough assistance at home. #UTI: On IV ceftriaxone. Urine cultures growing E.coli which is pansensitive. Complete a 5 day course of antibiotics. DC today after 5 days of antibiotics. #Severe cutaneous candidiasis: On Nystatin powder. On p.o. fluconazole due to the severity of the candidiasis #Hyperkalemia: resolved. K is 4.2 today #Hypothyroidism: on synthroid # Type 2 diabetes mellitus: On insulin sliding scale. Accu-Cheks ACHS. #Atrial fibrillation: on metoprolol On Coumadin which is on hold as INR remains supratherapeutic. #Supratherapeutic INR: resolved,. INR still remains 3.5 today. #JAYA: On CPAP Class III obesity: BMI is 71.3. Complicates acute care, expected recovery and prognosis. #Depression: On escitalopram DVT prophylaxis: Not indicated as patient has markedly elevated INR. INR today remains 3.5. Disposition: For discharge tomorrow so ambulance service can safely transport her into her home. They do not have enough staff today to be able to do this and will be able to do it tomorrow. Medications at Discharge Home Medications atorvastatin 20 mg tablet 20 mg PO QHS cholesterol 05/12/16 hydrocortisone 2.5 % topical cream 1 applicatio topical BID rash 05/12/16 metoprolol tartrate 50 mg tablet 25 mg PO BID blood pressure 05/12/16 nystatin 100,000 unit/gram topical powder (Nyamyc) 1 applic topical BID yeast 05/14/16 docusate sodium 100 mg capsule 100 mg PO DAILY stool softner 06/16/24 pantoprazole 40 mg tablet,delayed release 40 mg PO DAILY reflux 06/16/24 ergocalciferol (vitamin D2) 1,250 mcg (50,000 unit) capsule 1,250 mcg PO QWEEK vitamin 10/18/24 escitalopram oxalate 10 mg tablet 10 mg PO QHS mental health 10/18/24 glipizide 10 mg tablet 10 mg PO BID diabetes 10/18/24 hydroxyzine pamoate 25 mg capsule 25 mg PO DAILY PRN itching 10/18/24 levothyroxine 112 mcg tablet 112 mcg PO DAILY thyroid 10/18/24 loratadine 10 mg tablet (Allergy Relief (loratadine)) 10 mg PO DAILY allergies 10/18/24 magnesium chloride 64 mg (magnesium chloride) tablet,delayed release (Mag 64) 64 mg PO DAILY supplement 10/18/24 montelukast 10 mg tablet 10 mg PO DAILY allergies 10/18/24 nystatin 100,000 unit/gram topical cream 1 applic topical DAILY rash 10/18/24 potassium chloride 10 mEq tablet,extended release 10 meq PO DAILY supplement 10/18/24 apixaban 5 mg tablet (Eliquis) 5 mg PO BID #60 tabs 10/24/24 Hospital Course Operations None Summary of Care Provided Minutes Spent on Discharge: 38 Hospital Course: Patient is an 78-year-old female with past medical history as outlined was admitted with by the ED on 10/18/2024 with a complaint of severe debility and weakness. Patient lives at home and was taking care of by her 90-year-old who has dementia. She was noted to have low blood sugars at home and was brought in. She was also found to be covered in urine. On admission she was found to have markedly elevated potassium and elevated INR 2. She was on Coumadin. Urinalysis also showed evidence of UTI. She was therefore admitted and managed for debility with failure to thrive as well as UTI, hyperkalemia and supratherapeutic INR. She was placed on IV ceftriaxone. She was treated with Kayexalate for the hyperkalemia which could subsequently resolved. She was placed on fluconazole and nystatin powder for severe candidiasis around her neck and in her groin area as well as underneath her breasts. She was given vitamin K for the elevated INR. INR gradually trended downwards and was around 3.2 at time of discharge. Patient completed a course of treatment for UTI. She worked with therapy and was deemed as needing skilled care. However patient adamantly refused to go anywhere wanted to go only to home. She was therefore discharged home with home health on 10/24/2024. Her Coumadin was discontinued due to difficulty with controlling her INR and she was placed on p.o. Eliquis 5 mg twice daily for atrial fibrillation. She is to follow-up with her primary care doctor within 1 to 2 weeks. She had completed a course of antibiotics so she was not discharged on any antibiotics for her UTI. Of note her A1c was also checked and was 5.2. Her home dose of Lantus was therefore discontinued as she had come in with hypoglycemia. Patient seen and examined prior to discharge. She had had episode of confusion during admission but had no active complaints at time of review. Labs and vitals reviewed. Home medication reviewed and reconciled. Physical Exam Const alert and no apparent distress Constitutional Narrative: Class III obesity with BMI of 71.3. Episodic confusion. General Appearance: cooperative and comfortable HEENT normocephalic, head/scalp atraumatic, hearing grossly normal bilaterally and moist oral mucous membranes Mouth: oral and palatal mucosa normal Eyes PERRL and EOMs intact bilaterally Neck supple Neck Narrative: very short thick neck Lymph Lymphatic: no lymphedema noted Resp Resp Narrative: Moderately diminished breath sounds bibasilarly. This may also be due to her class III obesity. No wheezes or crackles. Cardio regular rate, regular rhythm, S1 normal heart sound, S2 normal heart sound and no murmurs GI GI Narrative: Very obese abdomen. Difficult to palpate for organomegaly due to obesity. Extremity normal capillary refill and no clubbing, cyanosis or edema Extremity Narrative: 2+ lower extremity edema General Extremity: no tenderness to palpation of joints or extremities Skin Skin Narrative: Extensive candidiasis in the folds of the abdomen in the neck and under the breasts is improving. Neuro no focal motor deficits and no sensory deficits noted Sensorium / Orientation: awake and alert Motor Exam: general weakness Psych thought process normal, cooperative and affect normal Appearance: appropriate Weight / BMI Weight Weight: 444 lb 7.23 oz Body Mass Index (BMI) 71.7 ABG / Lab / Microbiology Data 10/24/24 06:26 10/24/24 06:26 Laboratory: Laboratory Results - last 24 hr 10/23/24 16:09: POC Glucose 186 H 10/23/24 20:59: POC Glucose 230 H 10/24/24 06:26: WBC 6.8, RBC 4.04 L, Hgb 10.3 L, Hct 37.0, MCV 91.6, MCH 25.5 L, MCHC 27.8 L, RDW Std Deviation 56.2 H, RDW Coeff of Ryan 16.6 H, Plt Count 160, MPV 9.3, Immature Gran % (Auto) 0.600, Neut % (Auto) 72.2 H, Lymph % (Auto) 18.1 L, Gulf % (Auto) 7.3, Eos % (Auto) 1.5, Baso % (Auto) 0.3, Absolute Neuts (auto) 4.9, Absolute Lymphs (auto) 1.24, Nucleated RBC % 0, Sodium 138, Potassium 4.9, Chloride 105, Carbon Dioxide 27.4, Anion Gap 6, BUN 20 H, Creatinine 1.11, Estim Creat Clear Calc 74.16, Est GFR (MDRD) Non-Af 50 L, BUN/Creatinine Ratio 18.3, Glucose 214 H, Calcium 8.7 10/24/24 06:45: POC Glucose 198 H 10/24/24 11:38: POC Glucose 204 H Microbiology: Microbiology 10/19/24 10:12 Blood Culture (Wb) - Anticubital Right Blood Culture - Final No growth in 5 days. 10/19/24 09:49 Blood Culture (Wb) - Breast Blood Culture - Final No growth in 5 days. 10/18/24 16:39 Urine Catheter - Reese Urine Culture - Final Presumptive E. coli D/C Instructions Discharge Activity: Return to Normal Activity Weight Bearing Status: Weight bearing as tolerated Call your doctor if you observe: Fever of 101 or Higher, Shortness of breath and Swelling in the ankles DC O2, CPAP, BIPAP Needs Home O2 Discharge instructions: No DC home with Oxygen: No Meaningful Use Info Meaningful Use Meaningful Use Diagnoses (Choose all that apply): None applicable Discharge Plan Admission Admit Date/Time: 10/18/24 18:29 Primary Reason for Your Visit: UTI, failure to thrive Attending Provider: Haydee Sanchez Primary Care Provider: Socrates Spangler Consulting Providers: Nico Garcia Instructions Patient Instructions: ED Weakness Uncertain Cause, ED UTIs Women Discharge Orders/Prescriptions Prescriptions: New Eliquis 5 mg tablet 5 mg PO BID Qty: 60 2RF Continued atorvastatin 20 MG tablet 20 mg PO QHS Patient Comments: cholesterol metoprolol tartrate 50 MG tablet 25 mg PO BID Patient Comments: blood pressure hydrocortisone 1 APPLIC cream 1 applicatio topical BID nystatin [Nyamyc] 1 APPLIC bottle 1 applic topical BID 0RF Patient Comments: uses at times docusate sodium 100 MG capsule 100 mg PO DAILY pantoprazole 40 mg tablet,delayed release (DR/EC) 40 mg PO DAILY glipizide 10 mg tablet 10 mg PO BID ergocalciferol (vitamin D2) 1,250 mcg (50,000 unit) capsule 1,250 mcg PO QWEEK hydroxyzine pamoate 25 mg capsule 25 mg PO DAILY PRN (Reason: itching) escitalopram oxalate 10 mg tablet 10 mg PO QHS Patient Comments: at 9PM loratadine [Allergy Relief (loratadine)] 10 mg tablet 10 mg PO DAILY levothyroxine 112 mcg tablet 112 mcg PO DAILY potassium chloride 10 mEq tablet extended release 10 meq PO DAILY nystatin 100,000 unit/gram cream 1 applic topical DAILY Patient Comments: uses at times montelukast 10 mg tablet 10 mg PO DAILY magnesium chloride [Mag 64] 64 mg tablet,delayed release (DR/EC) 64 mg PO DAILY Discontinued insulin glargine-yfgn 100 unit/mL (3 mL) insulin pen 35 unit subcut DAILY Patient Comments: takes 35 units warfarin 5 mg tablet 5 mg PO DAILY Referrals / Follow Up: Socrates Spangler MD [Primary Care Provider] - 10/30/24 12:00 pm Disposition Disposition (needs filled in before D/C Order can be placed): Home Health Service Charges/Coding Visit Charges Inpatient E&M: 99772 Disch Hosp >30min
[2024-10-24 11:11] VITALS: BP 100/46; PULSE 89; RESP 18; TEMP 36.5; O2SAT 92
--- NOTE | 2024-10-24 11:41 | CASEMGMT ---
Patient had prescription sent for [facility] called [facility], [facility] is covered 100%.
--- NOTE | 2024-10-24 11:47 | PHA.DC_ITS ---
Pharmacy [facility] has performed discharge medication reconciliation and counseling for this patient. 1. APIXABAN 5MG PO BID 2. STOP WARFARIN The patient's discharge medication list was reviewed for discrepancies and discrepancies were resolved. The patient was counseled on the following discharge medications and changes in medications for homegoing were reviewed. The Reason for Use, instructions for use, and potential side effects were reviewed for all new medications. The patient's questions regarding all of their medications were answered. The patient demonstrated some understanding but would benefit from further education and reinforcement. Patient said she isn't sure how much she will rememeber. Left education materials for patient's daughter to review. Medications at Discharge Home Medications atorvastatin 20 mg tablet 20 mg PO QHS cholesterol 05/12/16 hydrocortisone 2.5 % topical cream 1 applicatio topical BID rash 05/12/16 metoprolol tartrate 50 mg tablet 25 mg PO BID blood pressure 05/12/16 nystatin 100,000 unit/gram topical powder (Nyamyc) 1 applic topical BID yeast 05/14/16 docusate sodium 100 mg capsule 100 mg PO DAILY stool softner 06/16/24 pantoprazole 40 mg tablet,delayed release 40 mg PO DAILY reflux 06/16/24 ergocalciferol (vitamin D2) 1,250 mcg (50,000 unit) capsule 1,250 mcg PO QWEEK vitamin 10/18/24 escitalopram oxalate 10 mg tablet 10 mg PO QHS mental health 10/18/24 glipizide 10 mg tablet 10 mg PO BID diabetes 10/18/24 hydroxyzine pamoate 25 mg capsule 25 mg PO DAILY PRN itching 10/18/24 levothyroxine 112 mcg tablet 112 mcg PO DAILY thyroid 10/18/24 loratadine 10 mg tablet (Allergy Relief (loratadine)) 10 mg PO DAILY allergies 10/18/24 magnesium chloride 64 mg (magnesium chloride) tablet,delayed release (Mag 64) 64 mg PO DAILY supplement 10/18/24 montelukast 10 mg tablet 10 mg PO DAILY allergies 10/18/24 nystatin 100,000 unit/gram topical cream 1 applic topical DAILY rash 10/18/24 potassium chloride 10 mEq tablet,extended release 10 meq PO DAILY supplement 10/18/24 apixaban 5 mg tablet (Eliquis) 5 mg PO BID #60 tabs 10/24/24
--- NOTE | 2024-10-24 12:08 | CASEMGMT ---
[facility] updated by PCU [facility] that [facility] called and pushed back patient's transport time to 1300. [facility] CUM[facility]INS called daughter Jazmin to update with new pickup time. Jazmin voiced appreciation and had no further questions or concerns.
--- NOTE | 2024-10-24 12:17 | NURSING ---
This nurse called pt daughter Jazmin and gave instructions for pt d/c. Pt will be starting on Eliquis instead of Warfarin.
--- NOTE | 2024-10-24 12:34 | CASEMGMT ---
Social Work- SW called and left a voicemail and faxed discharge to [facility]/ Radha Valdovinos. YAMILET Sims
--- NOTE | 2024-10-24 15:30 | CASEMGMT ---
Social Work- SW received notice from [facility] that pt home was in poor condition with a hoarding situation and bed bugs. modular home crew member reported live bed bugs on the crew that transported. SARA completed APS referral via telephone message to Funmil[employer], property supervisor. SARA called to update [facility] CUMMINS.. YAMILET Sims
== END 2024-10-24 12:57 | disposition home health service (06) | DRG 421 ==
LOC: ED 18:35 → PCU 20:04
PROVIDERS: Family Medicine; Emergency Provider Emergency Medicine; PCP Internal Medicine; Referring Provider Emergency Medicine; Visit Provider Student in an Organized Health Care Education/Training Program
DX: R62.7 Adult failure to thrive (principal); Z68.45 Body mass index [BMI] 70 or greater, adult; F44.4 Conversion disorder with motor symptom or deficit; B37.2 Candidiasis of skin and nail; E11.22 Type 2 diabetes mellitus with diabetic chronic kidney disease; B96.20 Unspecified Escherichia coli [E. coli] as the cause of diseases classified elsewhere; I13.0 Hypertensive heart and chronic kidney disease with heart failure and stage 1 through stage 4 chronic kidney disease, or unspecified chronic kidney disease; I48.91 Unspecified atrial fibrillation; N18.30 Chronic kidney disease, stage 3 unspecified; F03.90 Unspecified dementia, unspecified severity, without behavioral disturbance, psychotic disturbance, mood disturbance, and anxiety; E03.9 Hypothyroidism, unspecified; F32.A Depression, unspecified; E11.649 Type 2 diabetes mellitus with hypoglycemia without coma; E87.5 Hyperkalemia; K21.9 Gastro-esophageal reflux disease without esophagitis; E78.5 Hyperlipidemia, unspecified; Z79.4 Long term (current) use of insulin; G47.33 Obstructive sleep apnea (adult) (pediatric); N39.0 Urinary tract infection, site not specified; Z79.890 Hormone replacement therapy; Z79.84 Long term (current) use of oral hypoglycemic drugs; Z79.899 Other long term (current) drug therapy; E66.813 Obesity, class 3; R53.81 Other malaise; R79.1 Abnormal coagulation profile; Z99.89 Dependence on other enabling machines and devices
CPT/HCPCS: 36415; 51702; 71045; 80048; 80053; 81001; 82962; 83036; 83605; 84132; 85025; 85610; 87040; 87086; 87088; 87186; 93005; 94640; 97110; 97162; 97165; 97530; 99285; A4216; J0612; J2405

== ENCOUNTER 2024-10-29 14:57 | Inpatient (IN) | payer MEDICARE, MEDICAID, SELFPAY ==
[2024-10-29] VITALS (21 sets, daily range): BP systolic 86–119; BP diastolic 35–85; PULSE 39–51; RESP 12–24; TEMP -17.7–35.3; O2SAT 90–100; BMI 71.1
--- NOTE | 2024-10-29 15:11 | EKG12_ITS ---
Test Reason : sob Blood Pressure : */* mmHG Vent. Rate : 44 BPM Atrial Rate : 44 BPM P-R Int : 196 ms QRS Dur : 106 ms QT Int : 512 ms P-R-T Axes : 6 15 -23 degrees QTcB Int : 437 ms Marked sinus bradycardia Low voltage QRS Nonspecific ST and T wave abnormality Abnormal ECG Confirmed by LAUREN ROSS, MARISOL ([id number]), photograph editor BETHEL PLAMA ([id number]) on 10/30/2024 8:48:37 AM Referred By: Confirmed By: MARISOL AGUILAR MD
--- NOTE | 2024-10-29 15:16 | EDS_ITS ---
HPI History of Present Illness Chief Complaint: Alt LOC Narrative Narrative: Brought by EMS from home caregiver called EMS with confusion. Patient reports there may confusion since in the hospital was discharged 5 days ago. Poor historian. She states mild cough. Denies vomiting diarrhea. Denies urinary symptoms. Denies fevers. Denies any pain. Since being home she is nonambulatory she states she is on a blood thinner cannot tell me the name. Reported hypoxia by EMS she states she started wearing oxygen since her discharge. After evaluation patient reviewing records, admitted for 5 days discharged on the . She had UTI she had debility and weakness she declined skilled care and had home health. She is transitioned over to Eliquis from her warfarin. Prior similar symptoms: Yes PFSH [facility] Medical History Anxiety Depression Hyperthyroidism Diabetes Non-smoker BiPAP (biphasic positive airway pressure) dependence On home oxygen therapy Congestive heart failure (CHF) Chest pain Hypertension Migraines Contusion of right great toe without damage to nail, initial encounter CHF (congestive heart failure) CKD (chronic kidney disease), stage III Acute hypoxic respiratory failure Hypothyroidism Allergic rhinitis GERD (gastroesophageal reflux disease) Obstructive sleep apnea Hyperlipidemia Hypertension Type 2 diabetes mellitus Morbid obesity Home Medications ?Medication ?Instructions ?Recorded ?Last Taken ?Type atorvastatin 20 mg tablet 20 mg PO QHS cholesterol 03/3005/11/16 22:00 History hydrocortisone 2.5 % topical cream 1 applicatio topica l BID rash 05/12/16 Unknown History metoprolol tartrate 50 mg tablet 25 mg PO BID blood pr essure 05/12/16 05/12/16 08:00 History nystatin 100,000 unit/gram topical 1 applic topical BI D yeast 05/14/16 Unknown Rx powder ([facility]) docusate sodium 100 mg capsule 100 mg PO DAILY stool s oftner 06/16/24 Unknown History pantoprazole 40 mg tablet,delayed 40 mg PO DAILY reflu x 06/16/24 Unknown History release ergocalciferol (vitamin D2) 1,250 1,250 mcg PO QWEEK v itamin 10/18/24 Unknown History mcg (50,000 unit) capsule escitalopram oxalate 10 mg tablet 10 mg PO QHS mental health 10/18/24 Unknown History glipizide 10 mg tablet 10 mg PO BID diabetes Unknown History hydroxyzine pamoate 25 mg capsule 25 mg PO DAILY PRN i tching 10/18/24 Unknown History levothyroxine 112 mcg tablet 112 mcg PO DAILY thyroid 10/18/24 Unknown History loratadine 10 mg tablet (Allergy 10 mg PO DAILY allerg ies 10/18/24 Unknown History Relief (loratadine)) magnesium chloride 64 mg 64 mg PO DAILY supplement Unknown History (magnesium chloride) tablet,delayed release (Mag 64) montelukast 10 mg tablet 10 mg PO DAILY allergies 10/05 Unknown History nystatin 100,000 unit/gram topical 1 applic topical DA HERNAN rash 10/18/24 Unknown History cream potassium chloride 10 mEq 10 meq PO DAILY supplement 0 10/18/24 Unknown History tablet,extended release apixaban 5 mg tablet (Eliquis) 5 mg PO BID #60 tabs Unknown Rx Allergy/AdvReac Type Severity Reaction Status Date / Time lisinopril Allergy Unknown Verified 10/29/24 15:04 pollen extracts Allergy Itching Verified 10/29/24 15:04 Family History Mother Diabetes Heart disease Hypertension Father Diabetes Cancer Heart disease Alzheimer dementia Surgical History History of cholecystectomy History of ankle surgery S/P cholecystectomy Social History household members: spouse Smoking Status: Never smoker alcohol intake: never substance use type: does not use ROS ROS ED Constitutional Constitutional ED: Denies fever(s) Cardiovascular Cardiovascular: Denies chest pain Respiratory/Chest Respiratory/Chest: Reports cough and dyspnea Gastrointestinal Gastrointestinal: Denies abdominal pain, diarrhea or vomiting Musculoskeletal Musculoskeletal: Denies none Integumentary Reports rash; Denies wounds Neurologic Neurologic: Reports weakness EXAM Physical Exam Const Vital Signs: 10/29/24 14:59 10/29/24 15:11 10/29/24 16:01 Temperature 0 F L Temperature Source Oral Pulse Rate 47 L Respiratory Rate 24 H 20 H Respiratory Pattern Blood Pressure 111/82 H 104/59 L Blood Pressure Mean 91 71 Pulse Ox 100 90 Oxygen Delivery Method Non-Rebreather Non-Rebreather Oxygen Flow Rate (L/min) 15 Fraction of Inspired Oxygen (FIO2) 10/29/24 16:03 10/29/24 16:15 10/29/24 16:30 Temperature 93.3 F L Temperature Source Core Pulse Rate 46 L 44 L Respiratory Rate 15 19 H 17 Respiratory Pattern Blood Pressure 100/65 104/54 L 97/66 Blood Pressure Mean 76 69 77 Pulse Ox 97 97 95 Oxygen Delivery Method Nasal Cannula Oxygen Flow Rate (L/min) Fraction of Inspired Oxygen (FIO2) 10/29/24 16:45 10/29/24 17:00 10/29/24 17:00 Temperature 93.3 F L 93.1 F L 93.2 F L Temperature Source Core Core Core Pulse Rate 46 L 48 L 44 L Respiratory Rate 19 H 16 14 Respiratory Pattern Blood Pressure 100/65 106/66 106/66 Blood Pressure Mean 76 79 78 Pulse Ox 96 92 92 Oxygen Delivery Method Nasal Cannula Oxygen Flow Rate (L/min) Fraction of Inspired Oxygen (FIO2) 10/29/24 17:15 10/29/24 17:30 10/29/24 17:45 Temperature 93.1 F L 93.1 F L 93.1 F L Temperature Source Core Core Core Pulse Rate 41 L 45 L 45 L Respiratory Rate 13 13 14 Respiratory Pattern Blood Pressure Blood Pressure Mean Pulse Ox 95 97 97 Oxygen Delivery Method Oxygen Flow Rate (L/min) Fraction of Inspired Oxygen (FIO2) 10/29/24 18:00 10/29/24 18:00 10/29/24 18:15 Temperature 93.2 F L 93.2 F L 93.3 F L Temperature Source Core Core Core Pulse Rate 39 L 45 L 45 L Respiratory Rate 13 15 13 Respiratory Pattern Blood Pressure 100/35 L Blood Pressure Mean 56 Pulse Ox 96 97 97 Oxygen Delivery Method Nasal Cannula Oxygen Flow Rate (L/min) Fraction of Inspired Oxygen (FIO2) 10/29/24 18:17 10/29/24 18:25 10/29/24 19:00 Temperature 93.3 F L 93.3 F L 93.7 F L Temperature Source Core Core Pulse Rate 45 L 45 L 47 L Respiratory Rate 15 15 16 Respiratory Pattern Blood Pressure 100/35 L 100/35 L 103/40 L Blood Pressure Mean 56 56 61 Pulse Ox 97 97 94 Oxygen Delivery Method Nasal Cannula Oxygen Flow Rate (L/min) 3 Fraction of Inspired Oxygen (FIO2) 10/29/24 19:32 10/29/24 20:00 10/29/24 20:00 Temperature 94.4 F L Temperature Source Core Pulse Rate 51 L 47 L 45 L Respiratory Rate 15 14 18 Respiratory Pattern Normal Normal Blood Pressure 86/55 L Blood Pressure Mean 65 Pulse Ox 98 99 100 Oxygen Delivery Method Bi-pap Oxygen Flow Rate (L/min) Fraction of Inspired Oxygen (FIO2) 30 24 24 Constitutional Narrative: On nonrebreather nontoxic no respiratory distress HEENT Reports moist mucous membranes normocephalic and atraumatic Eyes General Eye ED: Yes normal appearance of both eyes Chest Wall Chest: Negative for tenderness Resp normal respiratory effort and normal air movement Resp Narrative: Diminished breath sounds. Effort and Inspection: symmetric chest movement; Negative for respiratory distress Cardio regular rate and no murmurs Rate: bradycardia Peripheral Pulses: pulses 2+ throughout GI normal to inspection, nondistended, normoactive bowel sounds and non-tender Palpation: Negative for guarding or rebound tenderness present Extremity Extremity Narrative: 2+ lower extremity edema. Candidiasis noted in the popliteal folds. General Extremety ED: Yes edema; Negative for tenderness General Extremity: edema Neuro Neuro Narrative: Alert to person and place. Cannot tell me the year. Sensorium / Orientation: awake Skin Skin Narrative: See above MDM MDM MDM Narrative Medical decision making narrative: Interventions / MDM: Differential diagnosis: Hypothermia, hypoglycemic event, metabolic encephalopathy, hypercapnic respiratory failure, chf Diagnosis considered but do not suspect: Pneumonia however white count normal lactic acid and procalcitonin negative. PE however on chronic anticoagulation. My EKG interpretation: Sinus bradycardia rate 47, no heart blocks. No ST changes. Imaging independently reviewed and interpreted by myself: 1 view chest x-ray: Concerns for retrocardiac consolidation per radiology. External documents reviewed: N/A Test considered but not ordered:N/A ED course: Patient poor historian confused. Reports cough. She came in on nonrebreather reported pulse ox was 85%. She is on Eliquis from records. Pulse at 47 respiratory rate 24. I ordered sepsis labs. She had leg swelling BNP added. Chest x-ray ordered. Will get ABG as she is more confused. 1635: ABG from respiratory pH 7.23PCO2 of 80 PaO2 of 83 bicarb 34. The concern with her being on the new nonrebreather may have raise her CO2. They placed her on 2 L nasal cannula. Also per nursing glucose was 47 she started on D10 bolus. Current white count 9.2 hemoglobin 0.6. BNP 99493. 1645: Nursing reported core temp is [address] Reese [address] her on a Emily hugger. Will add TSH. TSH returned elevated at 12 however notes she is on levothyroxine. I did send for free T4 and T3 levels. My reevaluation patient was more awake on the nasal cannula. I spoke with hospitalist Dr. Suero for plan admission to ICU as she is hypothermic on a Emily hugger. Discussed unclear findings on hypothermia discussed lactic acid and procalcitonin was negative her white count normal. They read potential consolidation retrocardiac. Her BNP was elevated at 10,697. I ordered for Lasix. After evaluation by hospitalist as she was more somnolent repeat ABG was ordered. Repeat glucose was in the 90s. CO2 high 70s, she is placed on a BiPAP. Continue plan for placement in ICU. 2100: Patient tolerating the BiPAP. Awaiting transfer up to bed. Repeat potassium again down to 5.4. Re-evaluation: stable Disposition discussed with patient/family/significant other: Patient Case discussed with consulting clinician: Hospitalist This note was generated with [employer] dictation software. It may contain incorrect words, spelling, and punctuation that were not noted in checking the note before signing. Lab Data Labs: Laboratory Results - last 24 hr 10/29/24 10/29/24 10/29/24 15:17 15:29 15:40 WBC 9.2 RBC 4.57 Hgb 11.6 L Hct 41.3 MCV 90.4 MCH 25.4 L MCHC 28.1 L RDW Std Deviation 55.8 H RDW Coeff of Ryan 17.4 H Plt Count 157 MPV 9.3 Immature Gran % (Auto) 0.500 Neut % (Auto) 76.4 H Lymph % (Auto) 14.7 L Metcalfe % (Auto) 6.7 Eos % (Auto) 1.5 Baso % (Auto) 0.2 Absolute Neuts (auto) 7.0 Absolute Lymphs (auto) 1.35 Nucleated RBC % 0 PT Cancelled INR Cancelled APTT Cancelled Sodium 135 Potassium 5.7 H 5.6 H Chloride 102 Carbon Dioxide 25.8 Anion Gap 7 BUN 29 H Creatinine 1.12 Estim Creat Clear Calc 73.10 Est GFR (MDRD) Non-Af 50 L BUN/Creatinine Ratio 25.8 H Glucose 50 L Lactic Acid < 1.0 Calcium 9.1 Total Bilirubin 0.21 AST 24 ALT 14 Alkaline Phosphatase 77 [place] [address] H Total Protein 5.6 L Albumin 2.5 L Globulin 3.2 Albumin/Globulin Ratio 0.8 L Procalcitonin 0.06 TSH 12.000 H Free T4 0.90 Free T3 pg/dL 1.6 L Urine Color Yellow Urine Clarity Sl. Cloudy Urine pH 6.0 Ur Specific [place] 1.020 Urine Protein 100 H Urine Glucose (UA) Normal Urine Ketones Negative Urine Occult Blood 10 H Urine Nitrite Negative Urine Bilirubin 1 H Urine Urobilinogen Normal Ur Leukocyte Esterase 25 H Urine RBC 5-10 SEEN Urine WBC 5-10 SEEN Ur Squamous Epith Cells 10-25 SEEN Urine Bacteria 1+ Hyaline Casts 0-5 SEEN Urine Mucus 0 SEEN Urine Yeast RARE POC Glucose 10/29/24 10/29/24 10/29/24 16:29 17:19 18:14 WBC RBC Hgb Hct MCV MCH MCHC RDW Std Deviation RDW Coeff of Ryan Plt Count MPV Immature Gran % (Auto) Neut % (Auto) Lymph % (Auto) Metcalfe % (Auto) Eos % (Auto) Baso % (Auto) Absolute Neuts (auto) Absolute Lymphs (auto) Nucleated RBC % PT 40.9 H INR 4.1 H* APTT 45.7 H Sodium Potassium Chloride Carbon Dioxide Anion Gap BUN Creatinine Estim Creat Clear Calc Est GFR (MDRD) Non-Af BUN/Creatinine Ratio Glucose Lactic Acid Calcium Total Bilirubin AST ALT Alkaline Phosphatase NT pro BNP II Total Protein Albumin Globulin Albumin/Globulin Ratio Procalcitonin TSH Free T4 Free T3 pg/dL Urine Color Urine Clarity Urine pH Ur Specific [place] Urine Protein Urine Glucose (UA) Urine Ketones Urine Occult Blood Urine Nitrite Urine Bilirubin Urine Urobilinogen Ur Leukocyte Esterase Urine RBC Urine WBC Ur Squamous Epith Cells Urine Bacteria Hyaline Casts Urine Mucus Urine Yeast POC Glucose 49 L 105 10/29/24 10/29/24 19:08 20:06 WBC RBC Hgb Hct MCV MCH MCHC RDW Std Deviation RDW Coeff of Ryan Plt Count MPV Immature Gran % (Auto) Neut % (Auto) Lymph % (Auto) Metcalfe % (Auto) Eos % (Auto) Baso % (Auto) Absolute Neuts (auto) Absolute Lymphs (auto) Nucleated RBC % PT INR APTT Sodium Potassium 5.4 H Chloride Carbon Dioxide Anion Gap BUN Creatinine Estim Creat Clear Calc Est GFR (MDRD) Non-Af BUN/Creatinine Ratio Glucose Lactic Acid Calcium Total Bilirubin AST ALT Alkaline Phosphatase NT pro BNP II Total Protein Albumin Globulin Albumin/Globulin Ratio Procalcitonin TSH Free T4 Free T3 pg/dL Urine Color Urine Clarity Urine pH Ur Specific [place] Urine Protein Urine Glucose (UA) Urine Ketones Urine Occult Blood Urine Nitrite Urine Bilirubin Urine Urobilinogen Ur Leukocyte Esterase Urine RBC Urine WBC Ur Squamous Epith Cells Urine Bacteria Hyaline Casts Urine Mucus Urine Yeast POC Glucose 99 ABG Data ABG results: ABG 10/29/24 10/29/24 16:12 19:22 Specimen Type ART ART Sample Site L Radial R Radial pH 7.23 L 7.26 L Bicarbonate Actual 34.0 H 32.8 H Total CO2 37 35 Base Excess 7 H 6 H O2 Saturation 93 L 82 L O2 % 2.0 2.0 ABG pCO2 80.8 H* 74.0 H* ABG pO2 84 55 L Jeronimo Test Positive Positive O2 Delivery Device Cannula Cannula Vent Mode Not entered Not entered Crit Call To/Read Back Yes Yes Blood Gas Notified Whom tess Suero Blood Gas Notified Time 16:14:41 19:24:22 Radiography Diagnostic Testing: Clinical Impression(s) from Imaging Studies Chest X-Ray 10/29/24 15:24 IMPRESSION: Mild cardiomegaly and diffuse pulmonary vascular congestion. Left retrocardiac opacity. 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
--- NOTE | 2024-10-29 15:24 | RAD_ITS ---
PROCEDURE: CHEST 1 VIEW (PORTABLE) 10/29/2024 REASON FOR EXAM: COUGH TECHNIQUE: Frontal view of the chest. COMPARISON: 10/18/2024 FINDINGS: Hardware: None. Heart: Heart size is mildly enlarged. Lungs: Diffuse pulmonary vascular congestion. Left retrocardiac opacity. No pneumothorax. Bones: The bones are unremarkable. RAD/Chest 1 View (Portable) IMPRESSION: Mild cardiomegaly and diffuse pulmonary vascular congestion. Left retrocardiac opacity. Reading [facility]
[2024-10-29 15:46] LABS: Hematocrit 41.3 % (37-47); Hemoglobin 11.6 g/dL (12.0-15.0); Immature Granulocytes Count 0.050 X10^3/uL (0.0-0.0); Mean Corp Hgb Conc 28.1 g/dL (32-36); Mean Corpuscular Volume 90.4 fL (81-99); Mean Platelet Vol. 9.3 fl (6.2-12.0); NRBC Flagged by Analyzer 0 % (0-5); Platelet Count 157 K/mm3 (150-450); RBC Distribution Width CV 17.4 % (11.6-14.6); RBC Distribution Width SD 55.8 fl (35.1-43.9); Red Blood Count 4.57 M/mm3 (4.2-5.4); White Blood Count 9.2 K/mm3 (4.4-11.0)
[2024-10-29 16:10] LABS: Mucous, Urine 0 SEEN /hpf (<or=2+)
[2024-10-29 16:17] LABS: Allen Test Positive; Base Excess 7 mmol/L (-2 to +2); FI02 2.0; PO2 84 mmHG (75-100); SITE L Radial; SO2 93 % (95-99); Time Given 16:14:41
[2024-10-29 16:34] LABS: Pro- Brain NATRIURETIC PEPTIDE 10697 pg/mL (<=1800)
[2024-10-29 16:42] LABS: Procalcitonin 0.06 ng/mL (<=0.10)
[2024-10-29 16:48] LABS: AST(SGOT) 24 U/L (<=31); Alanine Aminotransfer ALT/SGPT 14 U/L (<=34); Albumin, Serum 2.5 g/dL (3.4-4.8); Alkaline Phosphatase 77 U/L (35-104); Anion Gap 7 (5-15); BUN 29 mg/dL (4-19); BUN/Creat Ratio 25.8 RATIO (10-20); Calcium,Total 9.1 mg/dL (7.6-11.0); Carbon Dioxide 25.8 mmol/L (21.0-32.0); Chloride 102 mmol/L (98-108); Estimated Creatinine Clearance 73.10 ml/min (50-250); Globulin 3.2 g/dL (2.2-4.2); Glucose 50 mg/dL (70-99); Potassium 5.7 mmol/L (3.3-5.1)
[2024-10-29 17:06] LABS: Color, Urine Yellow (Yellow); Glucose, Dipstick Normal (Normal); Ketone-Dipstick Negative (Negative); Leukocyte Esterase-Dipstick 25 /ul (Negative); Nitrite-Dipstick Negative (Negative); Occult Blood-Urine 10 /ul (Negative); Protein-Dipstick 100 mg/dl (Negative); Specific Gravity, Urine 1.020 (1.002-1.030)
[2024-10-29 17:12] LABS: Urine Bilirubin Dipstick 1 mg/dL (Negative)
[2024-10-29 17:45] LABS: Squamous Epithelial Cells - UA 10-25 SEEN /hpf (5-10)
[2024-10-29 17:48] LABS: Red Blood Cells-Urine 5-10 SEEN /hpf (0-5); Yeast-Urine RARE /hpf (None Seen)
[2024-10-29 17:50] LABS: Partial Thromboplast Time 45.7 Seconds (24.1-36.2); Prothrombin Time (Protime)PT. 40.9 SECONDS (11.7-14.9)
[2024-10-29 19:24] LABS: Potassium 5.6 mmol/L (3.3-5.1)
[2024-10-29 19:26] LABS: Allen Test Positive; Base Excess 6 mmol/L (-2 to +2); FI02 2.0; PO2 55 mmHG (75-100); SITE R Radial; SO2 82 % (95-99); Time Given 19:24:22
--- NOTE | 2024-10-29 19:35 | ED.RN ---
This RN notified Dr. Golden of the patient's multiple MAP readings of less than 65 and that the patient was triggering fluid resuscitation. Per Dr. Golden, he will not be ordering any fluids for this patient at this time d/t the fact we are trying to diurese the patient. This RN informed Dr. Golden that the previously ordered lasix was documented not given by the previous nurse taking care of the patient per Dr. Suero discontinuing the lasix for the patient's low BP readings. Dr. Golden replied saying okay, we do not want to be giving her fluids at this time.
[2024-10-29 19:36] LABS: Free T3 1.6 pg/mL (2.18-3.98)
--- NOTE | 2024-10-29 20:20 | HP.PCM.HOS_ITS ---
HPI - General General Date of Admission: 10/29/24 Date of Service: 10/29/24 Chief Complaint: AMS HPI Narrative TOD HUNT, is a 78-year-old female with a history of JAYA, GERD, hypothyroidism, diabetes, depression, A-fib chronically on Eliquis who presented [facility] ED 10/29/2024 with confusion, hypoglycemia, hypoxia. She was discharged 5 days ago and has possibly been having some confusion since that time. Reportedly hypoxic by EMS in the 80s and has started wearing oxygen since her discharge. When she was here recently she was admitted for UTI with debility and weakness but declined skilled care and had home health instead, she was discharged on the after being admitted for 5 days. In the ED heart rate 47, blood pressure 111/82, respiratory rate 24 and pulse ox 100% on 15 L nonrebreather, temp was found to be 93.2. CBC with normal white blood cell count, hemoglobin 11.6, CMP with a potassium of 5.7 but found to be hemolyzed, BUN of 29 and a creatinine 1.12, glucose 50, TSH 12, INR 4.1, blood gas with a pH 7.23, bicarb of 34, O2 sat 93 and a PCO2 of 80.8, proBNP 10,697 with a Pro- Juanjo of 0.06 and a lactic of less than 1. Chest x-ray with mild cardiomegaly and diffuse pulmonary vascular congestion and possible left retrocardiac opacity. Patient had no signs or symptoms of infection and UA did not seem overtly seem infected, given elevated BNP, x-ray findings and hypoxia there is suspicion for CHF and IV Lasix ordered. There is no indication for IV antibiotics. Due to her low glucose she was given D10 and patient placed on Emily hugger as it was unclear why she was hypothermic. Hospitalist contacted for admission. Patient evaluated bedside. Patient very confused, mostly is not answering questions appropriately, repeat ABG showed slight improvement in pH and PCO2 but now with hypoxia, patient placed on BiPAP and plan for ICU. No family available at bedside to provide additional history. FORMERLY [facility], [facility] Medical History Anxiety Depression Hyperthyroidism Diabetes Non-smoker BiPAP (biphasic positive airway pressure) dependence On home oxygen therapy Congestive heart failure (CHF) Chest pain Hypertension Migraines Contusion of right great toe without damage to nail, initial encounter CHF (congestive heart failure) CKD (chronic kidney disease), stage III Acute hypoxic respiratory failure Hypothyroidism Allergic rhinitis GERD (gastroesophageal reflux disease) Obstructive sleep apnea Hyperlipidemia Hypertension Type 2 diabetes mellitus Morbid obesity Home Medications ?Medication ?Instructions ?Recorded ?Last Taken ?Type atorvastatin 20 mg tablet 20 mg PO QHS cholesterol 03/3005/11/16 22:00 History hydrocortisone 2.5 % topical cream 1 applicatio topica l BID rash 05/12/16 Unknown History metoprolol tartrate 50 mg tablet 25 mg PO BID blood pr essure 05/12/16 05/12/16 08:00 History nystatin 100,000 unit/gram topical 1 applic topical BI D yeast 05/14/16 Unknown Rx powder (Nyamyc) docusate sodium 100 mg capsule 100 mg PO DAILY stool s oftner 06/16/24 Unknown History pantoprazole 40 mg tablet,delayed 40 mg PO DAILY reflu x 06/16/24 Unknown History release ergocalciferol (vitamin D2) 1,250 1,250 mcg PO QWEEK v itamin 10/18/24 Unknown History mcg (50,000 unit) capsule escitalopram oxalate 10 mg tablet 10 mg PO QHS mental health 10/18/24 Unknown History glipizide 10 mg tablet 10 mg PO BID diabetes Unknown History hydroxyzine pamoate 25 mg capsule 25 mg PO DAILY PRN i tching 10/18/24 Unknown History levothyroxine 112 mcg tablet 112 mcg PO DAILY thyroid 10/18/24 Unknown History loratadine 10 mg tablet (Allergy 10 mg PO DAILY allerg ies 10/18/24 Unknown History Relief (loratadine)) magnesium chloride 64 mg 64 mg PO DAILY supplement Unknown History (magnesium chloride) tablet,delayed release (Mag 64) montelukast 10 mg tablet 10 mg PO DAILY allergies 10/05 Unknown History nystatin 100,000 unit/gram topical 1 applic topical DA HERNAN rash 10/18/24 Unknown History cream potassium chloride 10 mEq 10 meq PO DAILY supplement 0 10/18/24 Unknown History tablet,extended release apixaban 5 mg tablet (Eliquis) 5 mg PO BID #60 tabs Unknown Rx Allergy/AdvReac Type Severity Reaction Status Date / Time lisinopril Allergy Unknown Verified 10/29/24 15:04 pollen extracts Allergy Itching Verified 10/29/24 15:04 Family History Mother Diabetes Heart disease Hypertension Father Diabetes Cancer Heart disease Alzheimer dementia Surgical History History of cholecystectomy History of ankle surgery S/P cholecystectomy Social History household members: spouse Smoking Status: Never smoker alcohol intake: never substance use type: does not use ROS ROS Narrative Unable to obtain secondary to mental status Vital Signs Vital Signs Vital Signs: 10/29/24 14:59 10/29/24 15:11 10/29/24 16:01 Temperature 0 F L Temperature Source Oral Pulse Rate 47 L Respiratory Rate 24 H 20 H Respiratory Pattern Blood Pressure 111/82 H 104/59 L Blood Pressure Mean 91 71 Pulse Ox 100 90 Oxygen Delivery Method Non-Rebreather Non-Rebreather Oxygen Flow Rate (L/min) 15 Fraction of Inspired Oxygen (FIO2) 10/29/24 16:03 10/29/24 16:15 10/29/24 16:30 Temperature 93.3 F L Temperature Source Core Pulse Rate 46 L 44 L Respiratory Rate 15 19 H 17 Respiratory Pattern Blood Pressure 100/65 104/54 L 97/66 Blood Pressure Mean 76 69 77 Pulse Ox 97 97 95 Oxygen Delivery Method Nasal Cannula Oxygen Flow Rate (L/min) Fraction of Inspired Oxygen (FIO2) 10/29/24 16:45 10/29/24 17:00 10/29/24 17:00 Temperature 93.3 F L 93.1 F L 93.2 F L Temperature Source Core Core Core Pulse Rate 46 L 48 L 44 L Respiratory Rate 19 H 16 14 Respiratory Pattern Blood Pressure 100/65 106/66 106/66 Blood Pressure Mean 76 79 78 Pulse Ox 96 92 92 Oxygen Delivery Method Nasal Cannula Oxygen Flow Rate (L/min) Fraction of Inspired Oxygen (FIO2) 10/29/24 17:15 10/29/24 17:30 10/29/24 17:45 Temperature 93.1 F L 93.1 F L 93.1 F L Temperature Source Core Core Core Pulse Rate 41 L 45 L 45 L Respiratory Rate 13 13 14 Respiratory Pattern Blood Pressure Blood Pressure Mean Pulse Ox 95 97 97 Oxygen Delivery Method Oxygen Flow Rate (L/min) Fraction of Inspired Oxygen (FIO2) 10/29/24 18:00 10/29/24 18:00 10/29/24 18:15 Temperature 93.2 F L 93.2 F L 93.3 F L Temperature Source Core Core Core Pulse Rate 39 L 45 L 45 L Respiratory Rate 13 15 13 Respiratory Pattern Blood Pressure 100/35 L Blood Pressure Mean 56 Pulse Ox 96 97 97 Oxygen Delivery Method Nasal Cannula Oxygen Flow Rate (L/min) Fraction of Inspired Oxygen (FIO2) 10/29/24 18:17 10/29/24 18:25 10/29/24 19:00 Temperature 93.3 F L 93.3 F L 93.7 F L Temperature Source Core Core Pulse Rate 45 L 45 L 47 L Respiratory Rate 15 15 16 Respiratory Pattern Blood Pressure 100/35 L 100/35 L 103/40 L Blood Pressure Mean 56 56 61 Pulse Ox 97 97 94 Oxygen Delivery Method Nasal Cannula Oxygen Flow Rate (L/min) 3 Fraction of Inspired Oxygen (FIO2) 10/29/24 19:32 10/29/24 20:00 Temperature Temperature Source Pulse Rate 51 L 47 L Respiratory Rate 15 14 Respiratory Pattern Normal Normal Blood Pressure Blood Pressure Mean Pulse Ox 98 99 Oxygen Delivery Method Oxygen Flow Rate (L/min) Fraction of Inspired Oxygen (FIO2) 30 24 Weight Weight: 200 kg Body Mass Index (BMI) 71.1 Physical Exam Narrative General: Patient tired and confused, would wake up and answer questions but mostly in a nonsensical way HEENT: Atraumatic, normocephalic Eyes: Anicteric, normal conjunctiva, extraocular movements grossly intact Neck: Supple Respiratory: Very difficult to auscultate given patient's body habitus, diminished bilaterally Cardiovascular: Sinus bradycardia GI: Soft, protuberant, did not appear in pain on palpation Extremities: Has some 1-2+ bilateral lower extremity pitting edema Musculoskeletal: Moving all extremities in bed Neuro: No overt focal neurological deficits however patient unable to cooperate secondary to mental status Skin: No overt rashes appreciated on my exam Psych: Unable to cooperate secondary to mental status Results Lab / Micro Data 10/29/24 15:29 10/29/24 15:40 Labs: Laboratory Results - last 24 hr 10/29/24 15:17: Urine Color Yellow, Urine Clarity Sl. Cloudy, Urine pH 6.0, Ur Specific Jackson 1.020, Urine Protein 100 H, Urine Glucose (UA) Normal, Urine Ketones Negative, Urine Occult Blood 10 H, Urine Nitrite Negative, Urine Bilirubin 1 H, Urine Urobilinogen Normal, Ur Leukocyte Esterase 25 H, Urine RBC 5-10 SEEN, Urine WBC 5-10 SEEN, Ur Squamous Epith Cells 10-25 SEEN, Urine Bacteria 1+, Hyaline Casts 0-5 SEEN, Urine Mucus 0 SEEN, Urine Yeast RARE 10/29/24 15:29: WBC 9.2, RBC 4.57, Hgb 11.6 L, Hct 41.3, MCV 90.4, MCH 25.4 L, M CHC 28.1 L, RDW Std Deviation 55.8 H, RDW Coeff of Ryan 17.4 H, Plt Count 157, MPV 9.3, Immature Gran % (Auto) 0.500, Neut % (Auto) 76.4 H, Lymph % (Auto) 14.7 L, Boone % (Auto) 6.7, Eos % (Auto) 1.5, Baso % (Auto) 0.2, Absolute Neuts (auto) 7.0, Absolute Lymphs (auto) 1.35, Nucleated RBC % 0, PT Cancelled, INR Cancelled, APTT Cancelled, Sodium 135, Potassium 5.7 H, Chloride 102, Carbon Dioxide 25.8, Anion Gap 7, BUN 29 H, Creatinine 1.12, Estim Creat Clear Calc 73.10, Est GFR (MDRD) Non-Af 50 L, BUN/Creatinine Ratio 25.8 H, Glucose 50 L, Lactic Acid < 1.0, Calcium 9.1, Total Bilirubin 0.21, AST 24, ALT 14, Alkaline Phosphatase 77, Total Protein 5.6 L, Albumin 2.5 L, Globulin 3.2, A lbumin/Globulin Ratio 0.8 L, Procalcitonin 0.06 10/29/24 15:40: Potassium 5.6 H, [place] [address] H, TSH 12.000 H, Free T4 0.90, Free T3 pg/dL 1.6 L 10/29/24 16:29: POC Glucose 49 L 10/29/24 17:19: PT 40.9 H, INR 4.1 H*, APTT 45.7 H 10/29/24 18:14: POC Glucose 105 10/29/24 19:08: POC Glucose 99 Micro: Microbiology 10/29/24 15:40 Mucosa - Nose SARS-CoV-2, Influenza & RSV (PCR) - Final ABG Data ABG results: ABG 10/29/24 10/29/24 16:12 19:22 Specimen Type ART ART Sample Site L Radial R Radial pH 7.23 L 7.26 L Bicarbonate Actual 34.0 H 32.8 H Total CO2 37 35 Base Excess 7 H 6 H O2 Saturation 93 L 82 L O2 % 2.0 2.0 ABG pCO2 80.8 H* 74.0 H* ABG pO2 84 55 L Jeronimo Test Positive Positive O2 Delivery Device Cannula Cannula Vent Mode Not entered Not entered Crit Call To/Read Back Yes Yes Blood Gas Notified Whom tess Suero Blood Gas Notified Time 16:14:41 19:24:22 Imaging Radiology Impression Chest X-Ray 10/29/24 15:24 IMPRESSION: Mild cardiomegaly and diffuse pulmonary vascular congestion. Left retrocardiac opacity. Reading Location: [facility] Assessment & Plan Assessment/Plan (1) Acute metabolic encephalopathy due to hypoglycemia: PLAN: Plan # Hypothermia, hypoglycemia, sinus bradycardia -Suspect sinus bradycardia is secondary to hypothermia and likely contributed to by hypoglycemia - Unclear underlying etiology of the above, TSH is elevated at 12 but free T4 is technically within normal limits on the low end of normal - Continue Synthroid, unclear compliance at home - Hold home beta-maycol -Hold home glipizide - Patient with normal white blood cell count, lactic acid within normal limits, Pro-Juanjo negative but does have hypoxia and left retrocardiac opacity and thus far no clear explanation for the above, given the persistence despite treating the hypoglycemia feel it is reasonable to treat patient empirically with antibiotics while awaiting culture and any further available data, given the only available identifiable complaints are pulmonary we will treat with Rocephin and azithromycin - Will obtain COVID and respiratory panel - Will obtain urine antigens - Additionally will obtain cortisol level, patient has a history of hypothyroidism, cannot rule out that she is adrenal insufficiency though less likely - IV thiamine ordered in the event there is also nutritional deficiency, again less likely but no definite etiology identified yet - Will consult driver operator for assistance, patient being admitted to ICU # Acute hypoxic hypercapnic respiratory failure -Patient initially acidotic and hypercapnic but not hypoxic when she came in and had been on nonrebreather from squad, was placed on nasal cannula and repeat ABG showed pH almost the same, minimal improvement in hypercapnia but patient then hypoxic -Patient placed on BiPAP - Management as above - proBNP 10,000 though several months ago was 11,000, had an echo several months ago with normal EF and LV size - Does not appear patient takes Lasix presently on an outpatient basis - O2 sat improved significantly on BiPAP, can continue to monitor for abilities to diurese though do not think that fluid overload would necessarily account for the hypothermia, hypoglycemia, sinus bradycardia, concerned that there may be another etiology -Will monitor daily weights and I's and O's -Had echo several months ago so repeat was not ordered - Appreciate driver operator recommendations #Acute metabolic encephalopathy - Secondary to the above, treat underlying etiologies # Elevated INR - Unclear if patient has poor nutrition or if she resumed home Coumadin when she was supposed to be switched to Eliquis - Repeat in a.m. - No acute indication for reversal at this time # Elevated potassium - Potassium listed is 5.7 however it is hemolyzed, repeat was also hemolyzed, a repeat of that is now pending #JAYA - On BiPAP as above #Type 2 diabetes mellitus -Glucose checks, holding any insulin or glipizide due to the above #Depression/anxiety -Continue home medications once patient able to be alert enough to take p.o. #GERD -Continue PPI #Hypothyroidism -Continue Synthroid -TSH elevated but free T4 technically within normal limits, unclear level compliance on outpatient basis #Paroxysmal Atrial Fibrillation -Rate control: On metoprolol, will hold as above -Anticoagulation: Continue Eliquis #Morbid obesity -BMI documented as 71.2 kg/m? at time of admission -Complicates treatment, prognosis, outcomes -Recommend weight loss and lifestyle changes #DVT ppx: Not indicated, already on full dose anticoagulation Savanna Suero MD Charges/Coding Visit Charges Inpatient E&M: 17214 Init Hosp L3
[2024-10-29 21:07] LABS: Potassium 5.4 mmol/L (3.3-5.1)
--- NOTE | 2024-10-29 21:24 | ED.RN ---
This RN went into the patient's room to transport the patient up to the ICU and obtain another set of VS. Upon entering the room, the patient had disconnected herself from the BP cuff, the athletic monitor, the BiPap circuit, and had taken out all of her IV lines. RT reconnected her BiPap and this RN notified the charge nurse of the loss of IV access. BE Tello and this RN both at bedside and attempted multiple times to reestablish IV access. However, only one IV access was able to be established at this time. MD and ICU notified.
--- NOTE | 2024-10-29 22:30 | RAD_ITS ---
PROCEDURE: CHEST 1 VIEW (PORTABLE) 10/29/2024 REASON FOR EXAM: CENTRAL LINE PLACEMENT TECHNIQUE: Frontal view of the chest. COMPARISON: Earlier same day 10/29/2024. FINDINGS: Distal tip of a presumed right IJ approach central venous catheter, tip at the lower SVC. No significant change in aeration. No pneumothorax. Prominent cardiomegaly with vascular congestion and probable bilateral layering pleural effusions. Left basilar consolidation/atelectasis not excluded. RAD/Chest 1 View (Portable) IMPRESSION: Right IJ approach central venous catheter, tip at the lower SVC. No significant interval change in lung aeration. Reading Location: [id number]
--- OUTSIDE RECORDS SUMMARY | 2024-10-29 23:45 | XMS RPT_ITS | CCD ---
Author Organization [facility] CliniSypr Care Team Providers Care Sweatband Separator Name Role Phone ЕКАТЕРИНА BARTLETT Unavailable Unavailable MARQUES TORRES Unavailable UnavailMARQUES Lucio Unavailable Unavailabl ЕКАТЕРИНА Murphy Unavailable Unavailable ЕКАТЕРИНА BARTLETT Unavailable Unavailable UNKNOWN, REFERR Unavailable Unavailable [facility] Unavailable Unavailable ЕКАТЕРИНА BARTLETT Unavailable Unavailable CHARLOTTE HYMAN Unavailable Unavailable ЕКАТЕРИНА BARTLETT Unavailable Unavailable Crys ROSS, Dr. Crowell Primary Care Provider Dr. Gabriel Rucker DO Emergency Provider Brionna ROSS, Dr. Estela Ca Attending Provider Dr. Estela Staton MD Admit Provider Dr. Estela Staton MD Other Provider Sherly MCLEAN, Dr. Whipple Other Provider Dr. Savanna Suero MD Attending Provider Dr. Azam Montgomery MD Other Provider Dr. Shun Luciano MD Attending Provider Dr. Azam Montgomery MD Attending Provider Dr. Savanna Suero MD Other Provider Dr. Socrates Spangler MD Primary Care Provider [phone] Dr. Ryan Yang MD Referring Provider Dr. Ryan Yang MD Emergency Provider Dr. Nico Garcia DO Attending Provider Dr. Nico Garcia DO Admit Provider Crys ROSS, Dr. Crowell Primary Care Provider [phone] Dr. Ryan Yang MD Referring Provider [phone] Trey ROSS, Dr. Davis Emergency Provider Radha HOLMAN, Dr. Walsh Admit Provider Radha HOLMAN, Dr. Walsh Other Provider Laura ROSS, Dr. Haydee Norman Attending Provider Brionna ROSS, Dr. Estela Ca Attending Provider Laura ROSS, Dr. Haydee Norman Other Provider Haydee Sanchez Attending Unavailable Jopperi, Nico Admitting Unavailable Jopperi, Nico Consulting Unavailable Spangler, Socrates Primary Care Unavailable Ryan Yang Referring Unavailable White, Estela L Admitting Unavailable White, Estela L Consulting Unavailable Spangler, Socrates Primary Care Unavailable Ulises, Azam Attending Unavailable Sherly, Sarabjit Consulting Unavailable Ulises, Azam Consulting Unavailable Spangler, Socrates Primary Care Unavailable Korabby, Haydee Ester Attending Unavailable Jopperi, Nico Consulting Unavailable Jopperi, Nico Admitting Unavailable Ryan Yang Referring Unavailable Koram, Haydee Ester Consulting Unavailable Jopperi, Nico Attending Unavailable Spangler, Socrates Primary Care Unavailable YangRyan Referring Unavailable Spangler, Socrates Primary Care Unavailable Mustapha, Shun Attending Unavailable Spangler, Socrates Primary Care Unavailable Ulises, Azam Referring Unavailable Mustapha, Shun Attending Unavailable White, Estela L Attending Unavailable Spangler, Socrates Primary Care Unavailable White, Estela L Attending Unavailable Spangler, Socrates Primary Care Unavailable White, Estela L Admitting Unavailable White, Estela L Consulting Unavailable Savanna Suero Attending Unavailable Sherly, Sarabjit Consulting Unavailable Ulises, Azam Consulting Unavailable Savanna Suero Attending Unavailable Savanna Suero Consulting Unavailable Chantel HOLMAN, Dr. Loredo Emergency Provider [phone] Pio ROSS, Dr. Corrales Admit Provider Pio ROSS, Dr. Corrales Attending Provider Allergies Allergy Classification Reported Allergen(s) Allergy Type Date of Onset Reaction(s) Facility (8 sources) lisinopril; Translations: [LISINOPRIL] Drug Allergy 2 AOF, Unknown [facility] Other [facility] (1 source) Pollen; Translations: [POLLEN] [facility] SMOKE; Translations: [SMOKE] Propensity [facility] (disorder) [facility] Pollen Allergy to substance 7 Itching [facility] (1 source) Pollen Drug allergy (disorder) [facility] Medications Current Medications Medication Drug Class(es) Dates Sig (Normalized) Sig (Original) apixaban 5 mg oral tablet (6 sources) Factor Xa Inhibitor Start: 10-24-2024 take 1 tablet by mouth twice daily Apixaban (Eliquis) 5 mg tablet Active 5 mg PO TWICE A DAY 60 2 October 24, 2024 12:00am Start: 06-19-2024 End: 10-18-2024 take 1 tablet by mouth twice daily Apixaban (Eliquis) 5 mg Tablet Discontinued 5 mg PO TWICE A DAY 60 30 0 June 19, 2024 12:00am October 18, 2024 5:17pm atorvastatin 20 mg oral tablet (5 sources) HMG-CoA Reductase Inhibitor Start: 05-12-2016 take 1 tablet by mouth at bedtime Atorvastatin 20 MG tablet Active 20 mg PO AT BEDTIME May 12, 2016 1:00am cholesterol docusate sodium 100 mg oral capsule (9 sources) Start: 06-16-2024 take 1 capsule by mouth once daily Docusate Sodium 100 MG capsule Active 100 mg PO DAILY June 16, 2024 12:00am stool softner Start: 05-14-2016 End: 06-16-2024 take 2 capsules by mouth twice daily Docusate Sodium (Dok) 100 MG capsule Discontinued 200 mg PO TWICE A DAY 0 May 14, 2016 1:00am June 16, 2024 4:20pm ergocalciferol 1.25 mg oral capsule (3 sources) Provitamin D2 Compound Start: 10-18-2024 Ergocalciferol (Vitamin D2) 1,250 mcg (50,000 unit) capsule Active 1250 ug PO EVERY WEEK October 18, 2024 12:00am vitamin escitalopram 10 mg oral tablet (3 sources) Serotonin Reuptake Inhibitor Start: 10-18-2024 take 1 tablet by mouth at bedtime Escitalopram Oxalate 10 mg tablet Active 10 mg PO AT BEDTIME October 18, 2024 12:00am mental health glipiZIDE 10 mg oral tablet (3 sources) Sulfonylurea Start: 10-18-2024 take 1 tablet by mouth twice daily Glipizide 10 mg tablet Active 10 mg PO TWICE A DAY October 18, 2024 12:00am diabetes hydrocortisone 25 mg/ml topical cream (5 sources) Corticosteroid Start: 05-12-2016 Hydrocortisone 1 APPLIC cream Active 1 APPLICATIO TOPICAL TWICE A DAY May 12, 2016 1:00am rash hydrOXYzine pamoate 25 mg oral capsule (3 sources) Antihistamine Start: 10-18-2024 take 1 capsule by mouth once daily as needed Hydroxyzine Pamoate 25 mg capsule Active 25 mg PO DAILY as needed for itching October 18, 2024 12:00am levothyroxine sodium 0.112 mg oral tablet (5 sources) l-Thyroxine Start: 10-18-2024 take 1 tablet by mouth once daily Levothyroxine 112 mcg tablet Active 112 ug PO DAILY October 18, 2024 12:00am thyroid Start: 05-12-2016 take 1 tablet by sanju once daily Levothyroxine 100 MCG tablet Active 100 ug PO DAILY May 12, 2016 1:00am loratadine 10 mg oral tablet (3 sources) Start: 10-18-2024 take 1 tablet by mouth once daily Loratadine (Allergy Relief (Loratadine)) 10 mg tablet Active 10 mg PO DAILY October 18, 2024 12:00am allergies magnesium chloride 598 mg delayed release oral tablet (3 sources) Start: 10-18-2024 take 1 tablet by mouth once daily Magnesium Chloride (Mag 64) 64 mg tablet,delayed release (DR/EC) Active 64 mg PO DAILY October 18, 2024 12:00am supplement metoprolol tartrate 50 mg oral tablet (5 sources) beta-Adrenergic Maycol Start: 05-12-2016 Metoprolol Tartrate 50 MG tablet Active 25 mg PO TWICE A DAY May 12, 2016 1:00am blood pressure Start: 05-12-2016 take 1 tablet by sanju twice daily Metoprolol Tartrate 50 MG tablet Active 50 mg PO TWICE A DAY May 12, 2016 1:00am blood pressure montelukast 10 mg oral tablet (8 sources) Leukotriene Receptor Antagonist Start: 10-18-2024 take 1 tablet by mouth once daily Montelukast 10 mg tablet Active 10 mg PO DAILY October 18, 2024 12:00am allergies Start: 05-12-2016 End: 06-15-2024 take 1 tablet by mouth at bedtime Montelukast (Singulair) 10 MG tablet Discontinued 10 mg PO AT BEDTIME May 12, 2016 1:00am June 15, 2024 10:02pm nystatin [id number] unt/ml topical cream (8 sources) Polyene Antifungal Start: 10-18-2024 Nystatin 10 0,000 unit/gram cream Active 1 NMA TOPICAL DAILY October 18, 2024 12:00am rash Start: 05-14-2016 Nystatin (Nyam yc) 1 APPLIC bottle Active 1 NMA TOPICAL TWICE A DAY 0 May 14, 2016 1:00am yeast omeprazole 40 mg delayed release oral capsule (1 source) Proton Pump Inhibitor Start: 05-12-2016 take 1 capsule by mouth once daily Omeprazole (Prilosec) 40 MG capsule Active 40 mg PO DAILY May 12, 2016 1:00am pantoprazole 40 mg delayed release oral tablet (4 sources) Proton Pump Inhibitor Start: 06-16-2024 take 1 tablet by mouth once daily Pantoprazole 40 mg tablet,delayed release (DR/EC) Active 40 mg PO DAILY June 16, 2024 12:00am reflux potassium chloride 10 meq extended release oral tablet (8 sources) Start: 10-18-2024 take 1 tablet by mouth once daily Potassium Chloride 10 mEq tablet extended release Active 10 meq PO DAILY October 18, 2024 12:00am supplement Start: 10-18-2024 take 1 tablet by sanju twice daily Potassium Chloride 10 mEq tablet extended release Active 10 meq PO TWICE A DAY October 18, 2024 12:00am Start: 05-12-2016 End: 10-18-2024 take 1 tablet by mouth twice daily Potassium Chloride 10 MEQ tablet Discontinued 10 meq PO TWICE A DAY May 12, 2016 1:00am October 18, 2024 5:08pm supplement Completed/Discontinued Medications Medication Drug Class(es) Dates Sig (Normalized) Sig (Original) acetaminophen 325 mg / HYDROcodone bitartrate 5 mg oral tablet (5 sources) Opioid Agonist Start: 09-27-2018 End: 10-08-2018 Hydrocodone-Aceta minophen 1 EACH tablet Discontinued 1 NMA PO EVERY 6 HOURS NEEDED as needed for Pain 10 4 0 September 27, 2018 September 30, 2018 12:00am October 08, 2018 12:08am Contusion of foot Contusion of unspecified foot, initial encounter amLODIPine 5 mg oral tablet (5 sources) Dihydropyridine Calcium Channel Maycol Start: 05-12-2016 End: 10-19-2024 take 1 tablet by mouth once daily Amlodipine 5 MG tablet Discontinued 5 mg PO DAILY May 12, 2016 1:00am October 19, 2024 10:49am blood pressure amoxicillin 875 mg / clavulanate 125 mg oral tablet (4 sources) Penicillin-class Antibacterial Start: 06-19-2024 End: 10-18-2024 Amoxicillin-Pot Clavulanate 875-125 mg tablet Discontinued 1 {tbl} PO TWICE A DAY 4 2 0 June 19, 2024 12:00am October 18, 2024 5:10pm 0.4 ml enoxaparin sodium 100 mg/ml prefilled syringe (5 sources) Low Molecular Weight Heparin Start: 05-14-2016 End: 06-16-2024 Enoxaparin 40 MG/0.4 ML syringe Discontinued 40 mg SC TWICE A DAY 28 0 May 14, 2016 1:00am June 16, 2024 4:11pm fexofenadine hydrochloride 180 mg oral tablet (5 sources) Histamine-1 Receptor Antagonist Start: 05-12-2016 End: 10-19-2024 take 1 tablet by mouth once daily Fexofenadine 180 MG tablet Discontinued 180 mg PO DAILY May 12, 2016 1:00am October 19, 2024 10:48am allergies furosemide 40 mg oral tablet (9 sources) Loop Diuretic Start: 06-19-2024 End: 10-19-2024 take 1 tablet by mouth once daily Furosemide 40 mg Tablet Discontinued 40 mg PO DAILY 7 7 0 June 19, 2024 12:00am October 19, 2024 10:49am Start: 05-12-2016 End: 05-14-2016 Furosemide 40 MG tablet Disc ontinued 20 mg PO DAILY May 12, 2016 1:00am May 14, 2016 9:35am glimepiride 2 mg oral tablet (5 sources) Sulfonylurea Start: 05-12-2016 End: 05-14-2016 take 1 tablet by mouth twice daily Glimepiride 2 MG tablet Discontinued 2 mg PO TWICE A DAY May 12, 2016 1:00am May 14, 2016 9:34am hydroCHLOROthiazide 25 mg / losartan potassium 100 mg oral tablet (5 sources) Thiazide Diuretic, Angiotensin 2 Receptor Maycol Start: 05-12-2016 End: 10-18-2024 Losartan-Hydrochl orothiazide (Hyzaar) 1 TAB tablet Discontinued 1 {tbl} PO DAILY May 12, 2016 1:00am October 18, 2024 5:08pm blood pressure On Hold: Resume on 06/27/24. 3 ml insulin aspart, human 100 unt/ml pen injector (9 sources) Insulin Analog Start: 05-14-2016 End: 10-19-2024 Insulin Aspart U-100 (Novolog Flexpen U-100 Insulin) 100 UNITS/ML insulin pen Discontinued 1 sliding scale dose SC BEFORE MEALS AND AT BEDTIME June 19, 2024 12:00am October 19, 2024 10:48am diabetes 3 ml insulin glargine 100 unt/ml pen injector (5 sources) Insulin Analog Start: 05-12-2016 End: 10-19-2024 Insulin Glargine (Lantus Solostar U-100 Insulin) 100 UNITS/ML insulin pen Discontinued 50 U SC AT BEDTIME May 12, 2016 1:00am October 19, 2024 10:48am diabetes Insulin Glargine-Yfgn 100 unit/mL (3 mL) insulin pen (3 sources) Start: 10-18-2024 End: 10-24-2024 Insulin Glargine-Yfgn 100 unit/mL (3 mL) insulin pen Discontinued 35 U SC DAILY October 18, 2024 12:00am October 24, 2024 10:56am dm Start: 10-18-2024 Insulin Glargi ne-Yfgn 100 unit/mL (3 mL) insulin pen Active 45 U SC DAILY October 18, 2024 12:00am magnesium oxide 400 mg oral tablet (5 sources) Start: 05-14-2016 End: 10-19-2024 take 1 tablet by mouth twice daily Magnesium Oxide 400 MG tablet Discontinued 400 mg PO TWICE A DAY 60 0 May 14, 2016 1:00am October 19, 2024 10:48am supplement modified 24 hr metFORMIN hydrochloride 500 mg extended release oral tablet (5 sources) Biguanide Start: 05-12-2016 End: 10-19-2024 take 1 tablet by mouth twice daily before mealtime Metformin 500 MG tablet,ER rozina.retention 24 hr Discontinued 1000 mg PO TWICE DAILY BEFORE MEALS May 12, 2016 1:00am October 19, 2024 10:48am diabetes oxyCODONE hydrochloride 5 mg oral tablet (5 sources) Opioid Agonist Start: 05-14-2016 End: 10-18-2024 take 1 tablet by mouth every four hours as needed for pain Oxycodone 5 MG tablet Discontinued 5 mg PO EVERY 4 HOURS NEEDED as needed for Moderate Pain (pain scale 4-5) 20 0 May 14, 2016 1:00am October 18, 2024 5:18pm predniSONE 20 mg oral tablet (4 sources) Start: 06-19-2024 End: 10-18-2024 take 2 tablets by mouth once daily Prednisone 20 mg tablet Discontinued 40 mg PO DAILY 10 5 0 June 19, 2024 12:00am October 18, 2024 5:08pm traZODone hydrochloride 50 mg oral tablet (5 sources) Serotonin Reuptake Inhibitor Start: 05-12-2016 End: 05-14-2016 take 1 tablet by mouth at bedtime Trazodone 50 MG tablet Discontinued 50 mg PO AT BEDTIME May 12, 2016 1:00am May 14, 2016 9:34am warfarin sodium 5 mg oral tablet (3 sources) Vitamin K Antagonist Start: 10-18-2024 End: 10-24-2024 take 1 tablet by mouth once daily Warfarin 5 mg tablet Discontinued 5 mg PO DAILY October 18, 2024 12:00am October 24, 2024 10:50am blood thinner Start: 10-18-2024 take 7.5 mg by mouth once suyapa y Warfarin 5 mg tablet Active 7.5 mg PO DAILY October 18, 2024 12:00am Problems Active Problems Problem Classification Problem Date Documented Da te Episodic/Chronic Anxiety disorders (1 source) Anxiety disorder, unspecified; Translations: [ANXIETY DISORDER UNSPECI] Onset: 05-24-2016 Chronic Cardiac dysrhythmias (1 source) Paroxysmal atrial fibrillation; Translations: [PAROXYSMAL ATRIAL FIBRIL] Onset: 05-24-2016 Chronic Cardiac dysrhythmias (9 sources) Bradycardia; Translations: [Bradycardia, unspecified] Onset: 10-24-2024 10-18-2024 Episodic Chronic obstructive pulmonary disease and bronchiectasis (1 source) Chronic obstructive pulmonary disease, unspecified; Translations: [COPD UNSPECIFIED] Onset: 05-24-2016 Chronic Congestive heart failure; nonhypertensive (9 sources) Congestive heart failure; Translations: [Heart failure, unspecified] 06-13-2024 Chronic Deficiency and other anemia (1 source) Anemia in other chronic diseases classified elsewhere; Translations: [ANEMIA IN OTH CHRONIC DZ] Onset: 05-24-2016 Chronic Diabetes mellitus with complications (1 source) Type 2 diabetes mellitus with hyperglycemia; Translations: [Type 2 diabetes mellitus with hyperglycemia] Onset: 09-10-2016 Chronic Diabetes mellitus without complication (6 sources) Type 2 diabetes mellitus without complications; Translations: [Type 2 diabetes mellitus] Onset: 05-24-2016 06-13-2024 Chronic Disorders of lipid metabolism (5 sources) Hyperlipidemia; Translations: [Hyperlipidemia, unspecified] 06-13-2024 Chronic E Codes: Fall (5 sources) Fall; Translations: [Unspecified fall, initial encounter] 05-12-2016 Episodic Essential hypertension (6 sources) Essential (primary) hypertension; Translations: [Hypertensive disorder] Onset: 05-24-2016 06-13-2024 Chronic External Injury - Fall (1 source) Fall from non-moving wheelchair, initial encounter; Translations: [FALL NON-MOVING WHEELCHA] Onset: 05-24-2016 Fluid and electrolyte disorders (9 sources) Hyperkalemia; Translations: [Hyperkalemia] Onset: 10-24-2024 10-18-2024 Episodic Fracture of lower limb (9 sources) Other fracture of right lower leg, subsequent encounter for closed fracture with routine healing; Translations: [Displaced bimalleolar fracture of right lower leg, initial encounter for closed fracture] Onset: 05-24-2016 05-12-2016 Episodic Mycoses (8 sources) Candidiasis of skin; Translations: [Candidiasis of skin and nail] Onset: 10-24-2024 10-18-2024 Episodic Osteoarthritis (1 source) Unspecified osteoarthritis, unspecified site; Translations: [UNSPECIFIED OSTEOARTHRIT] Onset: 05-24-2016 Chronic Osteoporosis (1 source) Age-related osteoporosis without current pathological fracture; Translations: [AGE-REL OSTEOPOR W/O CUR] Onset: 05-24-2016 Chronic Other aftercare (6 sources) Long-term current use of anticoagulant; 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] 10-18-2024 Episodic Other injuries and conditions due to external causes (2 sources) Hypothermia; Translations: [Hypothermia, initial encounter] 10-29-2024 Episodic Other lower respiratory disease (7 sources) Hypoxia; Translations: [Hypoxemia] 06-13-2024 Episodic Other lower respiratory disease (1 source) Shortness of breath; Translations: [Shortness of breath] Onset: 10-16-2024 Episodic Other nervous system disorders (1 source) Other chronic pain; Translations: [OTHER CHRONIC PAIN] Onset: 05-24-2016 Chronic Other nervous system disorders (7 sources) Hypoglycemic encephalopathy; 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 encephalopathy] 10-18-2024 Chronic Other nervous system disorders (6 sources) Unable to walk; Translations: [Difficulty in walking, not elsewhere classified] 10-18-2024 Chronic Other nutritional; endocrine; and metabolic disorders (4 sources) Morbid (severe) obesity due to excess calories; Translations: [Other disorders of phosphorus metabolism] Onset: 05-24-2016 Chronic Other nutritional; endocrine; and metabolic disorders (5 sources) Morbid obesity; Translations: [Morbid (severe) obesity due to excess calories] 06-13-2024 Chronic Other nutritional; endocrine; and metabolic disorders (6 sources) Failure to thrive 10-18-2024 Episodic Other nutritional; endocrine; and metabolic disorders (6 sources) Adult failure to thrive syndrome; Translations: [Adult failure to thrive] 10-18-2024 Episodic Other nutritional; endocrine; and metabolic disorders (7 sources) H/O: diabetes mellitus; Translations: [Personal history of other endocrine, nutritional and metabolic disease] 10-18-2024 Episodic Pneumonia (except that caused by tuberculosis or sexually transmitted disease) (7 sources) Pneumonia; Translations: [Pneumonia, unspecified organism] 06-13-2024 Episodic Residual codes; unclassified (5 sources) Obstructive sleep apnea syndrome; Translations: [Obstructive sleep apnea (adult) (pediatric)] 06-13-2024 Chronic Respiratory failure; insufficiency; arrest (1 source) Chronic respiratory failure, unspecified whether with hypoxia or hypercapnia; Translations: [CHR RESP FAIL UNS HYPOX/] Onset: 05-24-2016 Chronic Respiratory failure; insufficiency; arrest (adult) (14 sources) Acute respiratory failure; Translations: [Acute respiratory failure with hypoxia] Onset: 06-20-2024 06-13-2024 Episodic Superficial injury; contusion (6 sources) Contusion of right great toe; Translations: [...] to schedule your appointment. Urinary tract infections (8 sources) Urinary tract infectious disease; Translations: [Urinary tract infection, site not specified] Onset: 10-24-2024 10-18-2024 Episodic Past or Other Problems Problem Classification Problem Date Documented Date Episodic/Chronic Bacterial infection (1 source) Personal history of Methicillin resistant Staphylococcus aureus infection; Translations: [PERS HX METHICILLIN RSIS] Onset: 05-24-2016 Episodic Other aftercare (2 sources) longterm (current) use of insulin; Translations: [longterm (current) use of insulin] Onset: 05-24-2016 Episodic Results Test Name Value Interpretation Reference Range Facility Absolute lymphocyte countOrd ered By: Facundo Golden on 10-29-2024 Lymphocytes Auto (Unsp spec) [#/Vol] 1.35 10*3/uL 0.83-4.51 [facility] Absolute neutrophil countOrd ered By: Facundo Golden on 10-29-2024 Neutrophils (Bld) [#/Vol] 7.0 10*3/uL 2.0-7.7 [facility] Activated partial thrombopla stin time (aPTT) in platelet poor plasma by coagulation aOrdered By: Facundo Golden on 10-29-2024 aPTT Coag (PPP) [Time] 45.7 s High 24.1-36.2 [facility] Anion gap in Serum or Plasma Ordered By: Facundo Golden on 10-29-2024 Anion gap [Moles/Vol] 7 mmol/L 5-15 [facility] Assessment of wrist artery p atency prior to arterial punctureOrdered By: Savanna Suero on 10-29-2024 Arterial patency Wrist artery --pre arterial puncture Positive [facility] Automated lymphocyte count a s percentage of total leukocytesOrdered By: Facundo Golden on 10-29-2024 Lymphocytes/100 WBC Auto (Unsp spec) 14.7 % Low 19-41 [facility] BUN/creatinine ratioOrdered By: Facundo Golden on 10-29-2024 Urea nitrogen/Creatinine [Mass ratio] 25.8 mg/mg High 10-20 [facility] Basophil percentageOrdered B y: Facundo Golden on 10-29-2024 Basophils/100 WBC (Bld) 0.2 % 0-1 [facility] Bilirubin Test strip Ql (U)O rdered By: Facundo Golden on 10-29-2024 Bilirubin Ql (U) 1 mg/dL High Negative [facility] Comment on above: COLOR OF URINE MAY A FFECT DIPSTICK RESULTS. Bilirubin, totalOrdered By: Facundo Golden on 10-29-2024 Bilirubin [Mass/Vol] 0.21 mg/dL 0.00-1.30 [facility] Blood base excess determinat ionOrdered By: Savanna Suero on 10-29-2024 Base excess Calc (BldV) [Moles/Vol] 6 mmol/L High -2-2 [facility] Blood bicarbonate measuremen tOrdered By: Savanna Suero on 10-29-2024 HCO3 (Bld) [Moles/Vol] 32.8 mmol/L High 22-26 [facility] Carbon dioxide, total [Moles /volume] in Central venous bloodOrdered By: Facundo Golden on 10-29-2024 CO2 [Moles/Vol] 25.8 mmol/L 21.0-32.0 [facility] Chloride assayOrdered By: Jorge Golden on 10-29-2024 Chloride [Moles/Vol] 102 mmol/L 98-108 [facility] Eosinophil percentageOrdered By: Facundo Golden on 10-29-2024 Eosinophils/100 WBC (Bld) 1.5 % 0-5 [facility] Erythrocyte distribution wid th ratioOrdered By: Facundo Golden on 10-29-2024 Erythrocyte distribution width (RBC) [Ratio] 17.4 % High 11.6-14.6 [facility] Erythrocyte distribution wid th standard deviationOrdered By: Facundo Golden on 10-29-2024 Erythrocyte distribution width (RBC) [Ratio] 55.8 fl High 35.1-43.9 [facility] Free [id number] By: Facundo Golden o n 10-29-2024 Free T3 [Mass/Vol] 1.6 pg/mL Low 2.18-3.98 [facility] Glomerular filtration rate ( GFR) estimation/1.73 sq m using serum, plasma, or whole bOrdered By: Facundo Golden on 10-29-2024 GFR/1.73 sq M.predicted among non-blacks MDRD (S/P/Bld) [Vol rate/Area] 50 mL/min/{1.73_m2} Low >60 [facility] Comment on above: mL/min/1.73m2 CKD-EP I Creatinine Equation (2020) Gl[facility] at [facility] deOrdered By: Savanna Suero on 10-29-2024 Glucose [Mass/Vol] 99 mg/dL 74-106 [facility] Comment on above: MANAGEMENT OF PATIEN T CARE PER NURSING PROTOCOL Hematocrit Auto (Bld) [Volum e fraction]Ordered By: Facundo Golden on 10-29-2024 Hematocrit (Bld) [Volume fraction] 41.3 % 37-47 [facility] Hemoglobin measurementOrdere d By: Facundo Golden on 10-29-2024 Hemoglobin (Bld) [Mass/Vol] 11.6 g/dL Low 12.0-15.0 [facility] Hyaline casts LM.LPF (Urine sed) [#/Area]Ordered By: Facundo Golden on 10-29-2024 Hyaline casts (Urine sed) [#/Area] 0 /[LPF] 0-5 [facility] Immature granulocytes/100 WB C Auto (Bld)Ordered By: Facundo Golden on 10-29-2024 Immature granulocytes/100 WBC (Bld) 0.500 % 0.0-0.9 [facility] Comment on above: IG% - Immature Granu locytes (promyelocytes, myelocytes and metamyelocytes) > 1% indicates that a LEFT SHIFT is Present. Influenza virus A and B and SARS-CoV-2 (COVID-19) and Respiratory syncytial virus RNAOrdered By: Facundo Golden on 10-29-2024 SARS-CoV-2 (COVID-19) RNA SAMMY+probe Ql (Unsp spec) [facility] normalized rat io (INR) calculationOrdered By: Facundo Golden on 10-29-2024 INR Coag (Bld) [Relative time] 4.1 {INR} High [facility] Comment on above: CRITICAL VALUE MURDOCK D TO BRENDA PINEAD10/29/24 1759 Gabriela Costello.RESULTS READ BACK BY SAME. Ketones Test strip Ql (U)Ord ered By: Facundo Golden on 10-29-2024 Ketones Ql (U) Negative Negative [facility] - Chemistry and C hemistry - challengeOrdered By: Facundo Golden on 10-29-2024 AST [Catalytic activity/Vol] 24 U/L <32 [facility] Comment on above: Hemolysis present, R esults could be affected. Lactic acid measurementOrder ed By: Facundo Golden on 10-29-2024 Lactate [Moles/Vol] mmol/L 0.0-2.0 [facility] MCV (mean corpuscular volume ) determinationOrdered By: Facundo Golden on 10-29-2024 MCV (RBC) [Entitic vol] 90.4 fL 81-99 [facility] Mean corpuscular hemoglobin (MCH) determinationOrdered By: Facundo Golden on 10-29-2024 MCH (RBC) [Entitic mass] 25.4 pg Low 27.0-32.0 [facility] Mean corpuscular hemoglobin concentration (MCHC) determinationOrdered By: Facundo Golden on 10-29-2024 MCHC (RBC) [Mass/Vol] 28.1 g/dL Low 32-36 [facility] Mean platelet volume determi nationOrdered By: Facundo Golden on 10-29-2024 Platelet mean volume (Bld) [Entitic vol] 9.3 fL 6.2-12.0 [facility] Measurement, pHOrdered By: Yves Suero on 10-29-2024 pH (Unsp spec) 7.26 [pH] Low 7.35-7.45 [facility] Microscopic analysis of urin e for red blood cells (RBC)Ordered By: Facundo Golden on 10-29-2024 Microscopic analysis of urine for red blood cells (RBC) 5-10 SEEN /hpf 0-5 [facility] Monocyte percentageOrdered B y: Facundo Golden on 10-29-2024 Monocytes/100 WBC (Bld) 6.7 % 0-10 [facility] Mucus LM Ql (Urine sed)Order ed By: Facundo Golden on 10-29-2024 Mucus Ql (Urine sed) 0 SEEN /hpf [facility] Natriuretic peptide.B prohor josé miguel N-Terminal [Mass/volume] in Serum or PlasmaOrdered By: Facundo Golden on 10-29-2024 Natriuretic peptide.B prohormone N-Terminal [Mass/Vol] 56392 pg/mL High <1800 [facility] Comment on above: Heart Failure Unlike ly: < 300 pg/mLHeart Failure Likely< 50 Years: > 450 pg/mL50-75 Years: > 900 pg/mL>75 Years: > 1800 pg/mL Neutrophil percentageOrdered By: Facundo Golden on 10-29-2024 Neutrophils/100 WBC (Bld) 76.4 % High 47-70 [facility] Nitrite Test strip Ql (U)Ord ered By: Facundo Golden on 10-29-2024 Nitrite Ql (U) Negative Negative [facility] No Panel InformationOrdered By: Savanna Suero on 10-29-2024 Bld Gas Crit Called To/Read Back By Yes [facility] Blood Gas Notified Time 19:24:22 [facility] Blood Gas Notified Whom Pio [facility] Blood Gas Sample Site R Radial [facility] Blood Gas Specimen Type ART [facility] Blood Gas Vent Mode Not entered [facility] Oxygen Delivery Device Cannula [facility] Nucleated red blood cell per centageOrdered By: Facundo Golden on 10-29-2024 Nucleated RBC/100 WBC (Bld) [Ratio] 0 % 0-5 [facility] Platelet countOrdered By: Jorge Golden on 10-29-2024 Platelets (Bld) [#/Vol] 157 10*3/uL 150-450 [facility] Potassium measurement (mass/ volume)Ordered By: Facundo Golden on 10-29-2024 Potassium (Unsp spec) [Mass/Vol] 5.4 mmol/L High 3.3-5.1 [facility] Procalcitonin [Mass/volume] in Serum or Plasma by ImmunoassayOrdered By: Facundo Golden on 10-29-2024 Procalcitonin IA [Mass/Vol] 0.06 ng/mL <0.11 [facility] Comment on above: Interpretation:<0.10 -0.25 ng/mL: Antibiotic therapy discouraged. Bacterial infection unlikely.0.25-0.50 ng/mL: Antibiotic therapy encouraged. Bacterial infection possible.>0.50 ng/mL: Antibiotic therapy strongly encouraged. Suggestive of presence of bacterial infection.PCT should always be interpreted in the clinical context of the patient. Therefore, clinicians should use the PCT results in conjunction with other laboratory findings and clinical signs of the patient. Protein Test strip Ql (U)Ord ered By: Facundo Golden on 10-29-2024 Protein Ql (U) 100 mg/dl High Negative [facility] Prothrombin timeOrdered By: Facundo Golden on 10-29-2024 PT Coag (PPP) [Time] 40.9 s High 11.7-14.9 [facility] RBC Auto (Bld) [#/Vol]Ordere d By: Facundo Golden on 10-29-2024 RBC (Bld) [#/Vol] 4.57 10*6/uL 4.2-5.4 [facility] Serum creatinine measurement (mass/volume)Ordered By: Facundo Golden on 10-29-2024 Creatinine [Mass/Vol] 1.12 mg/dL 0.70-1.20 [facility] Serum globulin measurementOr dered By: Facundo Golden on 10-29-2024 Globulin (S) [Mass/Vol] 3.2 g/dL 2.2-4.2 [facility] Serum glucose measurement (m ass/volume)Ordered By: Facundo Golden on 10-29-2024 Glucose [Mass/Vol] 50 mg/dL Low 70-99 [facility] Serum or plasma alanine aguirre otransferase (ALT) measurementOrdered By: Facundo Golden on 10-29-2024 ALT [Catalytic activity/Vol] 14 U/L <35 [facility] Serum or plasma albumin kezia urement (mass/volume)Ordered By: Facundo Golden on 10-29-2024 Albumin [Mass/Vol] 2.5 g/dL Low 3.4-4.8 [facility] Serum or plasma albumin/glob ulin mass ratioOrdered By: Facundo Golden on 10-29-2024 Albumin/Globulin [Mass ratio] 0.8 {ratio} Low 0.9-2.4 [facility] Serum or plasma alkaline dawood sphatase measurementOrdered By: Facundo Golden on 10-29-2024 ALP [Catalytic activity/Vol] 77 U/L 35-104 [facility] Serum or plasma calcium kezia urement (mass/volume)Ordered By: Facundo Golden on 10-29-2024 Calcium [Mass/Vol] 9.1 mg/dL 7.6-11.0 [facility] Serum or plasma urea nitroge n measurement (mass/volume)Ordered By: Facundo Golden on 10-29-2024 Urea nitrogen [Mass/Vol] 29 mg/dL High 4-19 [facility] Sodium levelOrdered By: Facundo Golden on 10-29-2024 Sodium [Moles/Vol] 135 mmol/L 133-145 [facility] Squamous epithelial cells de tection in urine sediment by light microscopyOrdered By: Facundo Golden on 10-29-2024 Epithelial cells.squamous LM Ql (Urine sed) 10-25 SEEN /hpf 5-10 [facility] T4 freeOrdered By: Facundo Golden o n 10-29-2024 Free T4 [Mass/Vol] 0.90 ng/dL 0.76-1.46 [facility] TSH DL <= 0.005 mIU/L QnOrde red By: Facundo Golden on 10-29-2024 TSH Qn 12.000 uIU/mL High 0.300-4.200 [facility] Total carbon dioxide measure mentOrdered By: Savanna Suero on 10-29-2024 CO2 [Moles/Vol] 35 mmol/L [facility] Total proteinOrdered By: Quique Golden on 10-29-2024 Protein [Mass/Vol] 5.6 g/dL Low 5.9-8.4 [facility] Urine clarityOrdered By: Quique Golden on 10-29-2024 Clarity (U) Sl. Cloudy Clear [facility] Urine color determinationOrd ered By: Facundo Golden on 10-29-2024 Color (U) Yellow Yellow [facility] Urine glucose detectionOrder ed By: Facundo Golden on 10-29-2024 Glucose Ql (U) Normal mg/dl Normal [facility] Urine leukocyte esterase det ection by dipstickOrdered By: Facundo Golden on 10-29-2024 Leukocyte esterase Test strip Ql (U) 25 /ul High Negative [facility] Urine pHOrdered By: Facundo Golden on 10-29-2024 pH (U) 6.0 [pH] 5.0 - 8.0 [facility] Urine sediment bacteria coun t by microscopy (number/high power field)Ordered By: Facundo Golden on 10-29-2024 Bacteria LM.HPF (Urine sed) [#/Area] 1 /[HPF] None Seen [facility] Urine sediment yeast count b y microscopy (number/high powered field)Ordered By: Facundo Golden on 10-29-2024 Yeast LM.HPF (Urine sed) [#/Area] RARE /hpf None Seen [facility] Urine specific gravity measu rementOrdered By: Facundo Golden on 10-29-2024 Specific gravity (U) [Rel density] 1.020 1.002-1.030 [facility] Urine urobilinogen measureme ntOrdered By: Facundo Golden on 10-29-2024 Urobilinogen Ql (U) Normal mg/dl Normal [facility] White blood cell (WBC) count Ordered By: Facundo Golden on 10-29-2024 WBC (Bld) [#/Vol] 9.2 10*3/uL 4.4-11.0 [facility] White blood cell countOrdere d By: Facundo Golden on 10-29-2024 White blood cell count 5-10 SEEN /hpf 0-5 [facility] aPTTon 10-29-2024 aPTT [facility] Basic Metabolic Profile (BMP )on 10-27-2024 BUN Normal 4-19 [facility] Comment on above: Result Comment: Canc elled via OM: Order cancelled - Patient discharged Performed By: #### L 500.2500, L100.0100 ####[facility] [address] [place], [address] BUN/CRE Normal 10-20 [facility] Comment on above: Result Comment: Canc elled via OM: Order cancelled - Patient discharged Performed By: #### L 500.2500, L100.0100 ####[facility] [address] [place], [address] Calcium Normal 7.6-11.0 [facility] Comment on above: Result Comment: Canc elled via OM: Order cancelled - Patient discharged Performed By: #### L 500.2500, L100.0100 ####[facility] [address] [place], [address] CL Normal 98-108 [facility] Comment on above: Result Comment: Canc elled via OM: Order cancelled - Patient discharged Performed By: #### L 500.2500, L100.0100 ####[facility] [address] [place], [address] CO2 Normal 21.0-32.0 [facility] Comment on above: Result Comment: Canc elled via OM: Order cancelled - Patient discharged Performed By: #### L 500.2500, L100.0100 ####[facility] [address] [place], [address] CREAT,SERUM Normal 0.70-1.20 [facility] Comment on above: Result Comment: Canc elled via OM: Order cancelled - Patient discharged Performed By: #### L 500.2500, L100.0100 ####[facility] [address] [place], [address] eGFR Normal >60 [facility] Comment on above: Result Comment: Canc elled via OM: Order cancelled - Patient discharged Performed By: #### L 500.2500, L100.0100 ####[facility] [address] [place], [address] GAP Normal 5-15 [facility] Comment on above: Result Comment: Canc elled via OM: Order cancelled - Patient discharged Performed By: #### L 500.2500, L100.0100 ####[facility] [address] [place], [address] GLU Normal 70-99 [facility] Comment on above: Result Comment: Canc elled via OM: Order cancelled - Patient discharged Performed By: #### L 500.2500, L100.0100 ####[facility] [address] [place], [address] Potassium Normal 3.3-5.1 [facility] Comment on above: Result Comment: Canc elled via OM: Order cancelled - Patient discharged Performed By: #### L 500.2500, L100.0100 ####[facility] [address] [place], [address] Basic Metabolic Profile (BMP) Normal 133-145 [facility] Comment on above: Result Comment: Canc elled via OM: Order cancelled - Patient discharged Performed By: #### L 500.2500, L100.0100 ####[facility] [address] [place], [address] CBC W/Diff, Automatedon 08-1 -2024 Absolute Neut Normal 2.0-7.7 [facility] Comment on above: Result Comment: Canc elled via OM: Order cancelled - Patient discharged Performed By: #### L 500.2500, L100.0100 ####[facility] [address] [place], [address] HCT Normal 37-47 [facility] Comment on above: Result Comment: Canc elled via OM: Order cancelled - Patient discharged Performed By: #### L 500.2500, L100.0100 ####[facility] [address] [place], [address] HGB Normal 12.0-15.0 [facility] Comment on above: Result Comment: Canc elled via OM: Order cancelled - Patient discharged Performed By: #### L 500.2500, L100.0100 ####[facility] [address] [place], [address] MCH Normal 27.0-32.0 [facility] Comment on above: Result Comment: Canc elled via OM: Order cancelled - Patient discharged Performed By: #### L 500.2500, L100.0100 ####[facility] [address] [place], [address] MCHC Normal 32-36 [facility] Comment on above: Result Comment: Canc elled via OM: Order cancelled - Patient discharged Performed By: #### L 500.2500, L100.0100 ####[facility] [address] [place], [address] MCV Normal 81-99 [facility] Comment on above: Result Comment: Canc elled via OM: Order cancelled - Patient discharged Performed By: #### L 500.2500, L100.0100 ####[facility] [address] [place], [address] NEUT% Normal 47-70 [facility] Comment on above: Result Comment: Canc elled via OM: Order cancelled - Patient discharged Performed By: #### L 500.2500, L100.0100 ####[facility] [address] [place], [address] PLT Normal 150-450 [facility] Comment on above: Result Comment: Canc elled via OM: Order cancelled - Patient discharged Performed By: #### L 500.2500, L100.0100 ####[facility] [address] [place], [address] RBC Normal 4.2-5.4 [facility] Comment on above: Result Comment: Canc elled via OM: Order cancelled - Patient discharged Performed By: #### L 500.2500, L100.0100 ####[facility] [address] [place], [address] RDW CV Normal 11.6-14.6 [facility] Comment on above: Result Comment: Canc elled via OM: Order cancelled - Patient discharged Performed By: #### L 500.2500, L100.0100 ####[facility] [address] [place], [address] RDW SD Normal 35.1-43.9 [facility] Comment on above: Result Comment: Canc elled via OM: Order cancelled - Patient discharged Performed By: #### L 500.2500, L100.0100 ####[facility] [address] [place], [address] WBC Normal 4.4-11.0 [facility] Comment on above: Result Comment: Canc elled via OM: Order cancelled - Patient discharged Performed By: #### L 500.2500, L100.0100 ####[facility] [address] [place], [address] Basic Metabolic Profile (BMP )on 10-26-2024 BUN Normal 4-19 [facility] Comment on above: Result Comment: Canc elled via OM: Order cancelled - Patient discharged Performed By: #### L 100.0100, L500.2500 ####[facility] [address] [place], [address] BUN/CRE Normal 10-20 [facility] Comment on above: Result Comment: Canc elled via OM: Order cancelled - Patient discharged Performed By: #### L 100.0100, L500.2500 ####[facility] [address] [place], [address] Calcium Normal 7.6-11.0 [facility] Comment on above: Result Comment: Canc elled via OM: Order cancelled - Patient discharged Performed By: #### L 100.0100, L500.2500 ####[facility] [address] [place], [address] CL Normal 98-108 [facility] Comment on above: Result Comment: Canc elled via OM: Order cancelled - Patient discharged Performed By: #### L 100.0100, L500.2500 ####[facility] [address] [place], [address] CO2 Normal 21.0-32.0 [facility] Comment on above: Result Comment: Canc elled via OM: Order cancelled - Patient discharged Performed By: #### L 100.0100, L500.2500 ####[facility] [address] [place], [address] CREAT,SERUM Normal 0.70-1.20 [facility] Comment on above: Result Comment: Canc elled via OM: Order cancelled - Patient discharged Performed By: #### L 100.0100, L500.2500 ####[facility] [address] [place], [address] eGFR Normal >60 [facility] Comment on above: Result Comment: Canc elled via OM: Order cancelled - Patient discharged Performed By: #### L 100.0100, L500.2500 ####[facility] [address] [place], [address] GAP Normal 5-15 [facility] Comment on above: Result Comment: Canc elled via OM: Order cancelled - Patient discharged Performed By: #### L 100.0100, L500.2500 ####[facility] [address] [place], [address] GLU Normal 70-99 [facility] Comment on above: Result Comment: Canc elled via OM: Order cancelled - Patient discharged Performed By: #### L 100.0100, L500.2500 ####[facility] [address] [place], [address] Potassium Normal 3.3-5.1 [facility] Comment on above: Result Comment: Canc elled via OM: Order cancelled - Patient discharged Performed By: #### L 100.0100, L500.2500 ####[facility] [address] [place], [address] Basic Metabolic Profile (BMP) Normal 133-145 [facility] Comment on above: Result Comment: Canc elled via OM: Order cancelled - Patient discharged Performed By: #### L 100.0100, L500.2500 ####[facility] [address] [place], [address] CBC W/Diff, Automatedon 10-12 Absolute Neut Normal 2.0-7.7 [facility] Comment on above: Result Comment: Canc elled via OM: Order cancelled - Patient discharged Performed By: #### L 100.0100, L500.2500 ####[facility] [address] [place], [address] HCT Normal 37-47 [facility] Comment on above: Result Comment: Canc elled via OM: Order cancelled - Patient discharged Performed By: #### L 100.0100, L500.2500 ####[facility] [address] [place], [address] HGB Normal 12.0-15.0 [facility] Comment on above: Result Comment: Canc elled via OM: Order cancelled - Patient discharged Performed By: #### L 100.0100, L500.2500 ####[facility] [address] [place], [address] MCH Normal 27.0-32.0 [facility] Comment on above: Result Comment: Canc elled via OM: Order cancelled - Patient discharged Performed By: #### L 100.0100, L500.2500 ####[facility] [address] [place], [address] MCHC Normal 32-36 [facility] Comment on above: Result Comment: Canc elled via OM: Order cancelled - Patient discharged Performed By: #### L 100.0100, L500.2500 ####[facility] [address] [place], [address] MCV Normal 81-99 [facility] Comment on above: Result Comment: Canc elled via OM: Order cancelled - Patient discharged Performed By: #### L 100.0100, L500.2500 ####[facility] [address] [place], [address] NEUT% Normal 47-70 [facility] Comment on above: Result Comment: Canc elled via OM: Order cancelled - Patient discharged Performed By: #### L 100.0100, L500.2500 ####[facility] [address] [place], [address] PLT Normal 150-450 [facility] Comment on above: Result Comment: Canc elled via OM: Order cancelled - Patient discharged Performed By: #### L 100.0100, L500.2500 ####[facility] [address] [place], [address] RBC Normal 4.2-5.4 [facility] Comment on above: Result Comment: Canc elled via OM: Order cancelled - Patient discharged Performed By: #### L 100.0100, L500.2500 ####[facility] [address] [place], [address] RDW CV Normal 11.6-14.6 [facility] Comment on above: Result Comment: Canc elled via OM: Order cancelled - Patient discharged Performed By: #### L 100.0100, L500.2500 ####[facility] [address] [place], [address] RDW SD Normal 35.1-43.9 [facility] Comment on above: Result Comment: Canc elled via OM: Order cancelled - Patient discharged Performed By: #### L 100.0100, L500.2500 ####[facility] [address] [place], [address] WBC Normal 4.4-11.0 [facility] Comment on above: Result Comment: Canc elled via OM: Order cancelled - Patient discharged Performed By: #### L 100.0100, L500.2500 ####[facility] [address] [place], [address] Basic Metabolic Profile (BMP )on 10-25-2024 BUN Normal 4-19 [facility] Comment on above: Result Comment: Canc elled via OM: Order cancelled - Patient discharged Performed By: #### L 100.0100, L500.2500 ####[facility] [address] [place], [address] BUN/CRE Normal 10-20 [facility] Comment on above: Result Comment: Canc elled via OM: Order cancelled - Patient discharged Performed By: #### L 100.0100, L500.2500 ####[facility] [address] [place], [address] Calcium Normal 7.6-11.0 [facility] Comment on above: Result Comment: Canc elled via OM: Order cancelled - Patient discharged Performed By: #### L 100.0100, L500.2500 ####[facility] [address] [place], [address] CL Normal 98-108 [facility] Comment on above: Result Comment: Canc elled via OM: Order cancelled - Patient discharged Performed By: #### L 100.0100, L500.2500 ####[facility] [address] [place], [address] CO2 Normal 21.0-32.0 [facility] Comment on above: Result Comment: Canc elled via OM: Order cancelled - Patient discharged Performed By: #### L 100.0100, L500.2500 ####[facility] [address] [place], [address] CREAT,SERUM Normal 0.70-1.20 [facility] Comment on above: Result Comment: Canc elled via OM: Order cancelled - Patient discharged Performed By: #### L 100.0100, L500.2500 ####[facility] [address] [place], [address] eGFR Normal >60 [facility] Comment on above: Result Comment: Canc elled via OM: Order cancelled - Patient discharged Performed By: #### L 100.0100, L500.2500 ####[facility] [address] [place], [address] GAP Normal 5-15 [facility] Comment on above: Result Comment: Canc elled via OM: Order cancelled - Patient discharged Performed By: #### L 100.0100, L500.2500 ####[facility] [address] [place], [address] GLU Normal 70-99 [facility] Comment on above: Result Comment: Canc elled via OM: Order cancelled - Patient discharged Performed By: #### L 100.0100, L500.2500 ####[facility] [address] [place], [address] Potassium Normal 3.3-5.1 [facility] Comment on above: Result Comment: Canc elled via OM: Order cancelled - Patient discharged Performed By: #### L 100.0100, L500.2500 ####[facility] [address] [place], [address] Basic Metabolic Profile (BMP) Normal 133-145 [facility] Comment on above: Result Comment: Canc elled via OM: Order cancelled - Patient discharged Performed By: #### L 100.0100, L500.2500 ####[facility] [address] [place], [address] CBC W/Diff, Automatedon 08-1 Absolute Neut Normal 2.0-7.7 [facility] Comment on above: Result Comment: Canc elled via OM: Order cancelled - Patient discharged Performed By: #### L 100.0100, L500.2500 ####[facility] [address] [place], [address] HCT Normal 37-47 [facility] Comment on above: Result Comment: Canc elled via OM: Order cancelled - Patient discharged Performed By: #### L 100.0100, L500.2500 ####[facility] [address] [place], [address] HGB Normal 12.0-15.0 [facility] Comment on above: Result Comment: Canc elled via OM: Order cancelled - Patient discharged Performed By: #### L 100.0100, L500.2500 ####[facility] [address] [place], [address] MCH Normal 27.0-32.0 [facility] Comment on above: Result Comment: Canc elled via OM: Order cancelled - Patient discharged Performed By: #### L 100.0100, L500.2500 ####[facility] [address] [place], [address] MCHC Normal 32-36 [facility] Comment on above: Result Comment: Canc elled via OM: Order cancelled - Patient discharged Performed By: #### L 100.0100, L500.2500 ####[facility] [address] [place], [address] MCV Normal 81-99 [facility] Comment on above: Result Comment: Canc elled via OM: Order cancelled - Patient discharged Performed By: #### L 100.0100, L500.2500 ####[facility] [address] [place], [address] NEUT% Normal 47-70 [facility] Comment on above: Result Comment: Canc elled via OM: Order cancelled - Patient discharged Performed By: #### L 100.0100, L500.2500 ####[facility] [address] [place], [address] PLT Normal 150-450 [facility] Comment on above: Result Comment: Canc elled via OM: Order cancelled - Patient discharged Performed By: #### L 100.0100, L500.2500 ####[facility] [address] [place], [address] RBC Normal 4.2-5.4 [facility] Comment on above: Result Comment: Canc elled via OM: Order cancelled - Patient discharged Performed By: #### L 100.0100, L500.2500 ####[facility] [address] [place], [address] RDW CV Normal 11.6-14.6 [facility] Comment on above: Result Comment: Canc elled via OM: Order cancelled - Patient discharged Performed By: #### L 100.0100, L500.2500 ####[facility] [address] [place], [address] RDW SD Normal 35.1-43.9 [facility] Comment on above: Result Comment: Canc elled via OM: Order cancelled - Patient discharged Performed By: #### L 100.0100, L500.2500 ####[facility] [address] [place], [address] WBC Normal 4.4-11.0 [facility] Comment on above: Result Comment: Canc elled via OM: Order cancelled - Patient discharged Performed By: #### L 100.0100, L500.2500 ####[facility] [address] [place], [address] Absolute lymphocyte countOrd ered By: Haydee Sanchez on 10-24-2024 Lymphocytes Auto (Unsp spec) [#/Vol] 1.24 10*3/uL 0.83-4.51 [facility] Absolute neutrophil countOrd ered By: Haydee Sanchez on 10-24-2024 Neutrophils (Bld) [#/Vol] 4.9 10*3/uL 2.0-7.7 [facility] Anion gap in Serum or Plasma Ordered By: Haydeebright Sanchez on 10-24-2024 Anion gap [Moles/Vol] 6 mmol/L - [facility] Automated lymphocyte count a s percentage of total leukocytesOrdered By: Haydeebright Sanchez on 10-24-2024 Lymphocytes/100 WBC Auto (Unsp spec) 18.1 % Low - [facility] BUN/creatinine ratioOrdered By: Haydeebright Sanchez on 10-24-2024 Urea nitrogen/Creatinine [Mass ratio] 18.3 mg/mg - [facility] Basic Metabolic Profile (BMP )on 10-24-2024 BUN/CRE 18.3 RATIO Normal - [facility] Comment on above: Performed By: #### L 500.2500, L100.0100 ####[facility] [address] [place], [address] Calcium [Mass/Vol] 8.7 mg/dL Normal 7.6-11.0 [facility] Comment on above: Performed By: #### L 500.2500, L100.0100 ####[facility] [address] [place], [address] Chloride [Moles/Vol] 105 mmol/L Normal 98-108 [facility] Comment on above: Performed By: #### L 500.2500, L100.0100 ####[facility] [address] [place], [address] CO2 [Moles/Vol] 27.4 mmol/L Normal 21.0-32.0 [facility] Comment on above: Performed By: #### L 500.2500, L100.0100 ####[facility] [address] [place], [address] Creatinine [Mass/Vol] 1.11 mg/dL Normal 0.70-1.20 [facility] Comment on above: Performed By: #### L 500.2500, L100.0100 ####[facility] [address] [place], [address] ECRCL 74.16 ml/min Normal 50-250 [facility] Comment on above: Performed By: #### L 500.2500, L100.0100 ####[facility] [address] [place], [address] GAP 6 Normal 5-15 [facility] Comment on above: Performed By: #### L 500.2500, L100.0100 ####[facility] [address] [place], [address] GFR/1.73 sq M.predicted among non-blacks MDRD (S/P/Bld) [Vol rate/Area] 50 mL/min/{1.73_m2} Low >60 [facility] Comment on above: Result Comment: mL/m in/1.73m2 CKD-EPI Creatinine Equation (2020) Performed By: #### L 500.2500, L100.0100 ####[facility] [address] [place], [address] Glucose [Mass/Vol] 214 mg/dL High 70-99 [facility] Comment on above: Performed By: #### L 500.2500, L100.0100 ####[facility] [address] [place], [address] Potassium [Moles/Vol] 4.9 mmol/L Normal 3.3-5.1 [facility] Comment on above: Performed By: #### L 500.2500, L100.0100 ####[facility] [address] [place], [address] Sodium [Moles/Vol] 138 mmol/L Normal 133-145 [facility] Comment on above: Performed By: #### L 500.2500, L100.0100 ####[facility] [address] [place], [address] Urea nitrogen [Mass/Vol] 20 mg/dL High 4-19 [facility] Comment on above: Performed By: #### L 500.2500, L100.0100 ####[facility] [address] [place], [address] Basophil percentageOrdered B y: Haydee Sanchez on 10-24-2024 Basophils/100 WBC (Bld) 0.3 % 0-1 [facility] Bedside Glucoseon 10-24-2024 FINGERSTICK GLU 204 mg/dL High 74-106 [facility] Comment on above: Result Comment: ALEXIS GEMENT OF PATIENT CARE PER NURSING PROTOCOL Performed By: #### L 501.080 ####[facility] [address] [place], [address] FINGERSTICK GLU 198 mg/dL High 74-106 [facility] Comment on above: Result Comment: ALEXIS GEMENT OF PATIENT CARE PER NURSING PROTOCOL Performed By: #### L 501.080 ####[facility] [address] [place], [address] CBC W/Diff, Automatedon 10-12 Absolute Lymph 1.24 X10 3/uL Normal 0.83-4.51 [facility] Comment on above: Performed By: #### L 500.2500, L100.0100 ####[facility] [address] [place], [address] Absolute Neut 4.9 X10 3/uL Normal 2.0-7.7 [facility] Comment on above: Performed By: #### L 500.2500, L100.0100 ####[facility] [address] [place], [address] Basophils/100 WBC (Bld) 0.3 % Normal 0-1 [facility] Comment on above: Performed By: #### L 500.2500, L100.0100 ####[facility] [address] [place], [address] Eosinophils/100 WBC (Bld) 1.5 % Normal 0-5 [facility] Comment on above: Performed By: #### L 500.2500, L100.0100 ####[facility] [address] [place], [address] Erythrocyte distribution width (RBC) [Ratio] 16.6 % High 11.6-14.6 [facility] Comment on above: Performed By: #### L 500.2500, L100.0100 ####[facility] [address] [place], [address] Hematocrit (Bld) [Volume fraction] 37.0 % Normal 37-47 [facility] Comment on above: Performed By: #### L 500.2500, L100.0100 ####[facility] [address] [place], [address] Hemoglobin (Bld) [Mass/Vol] 10.3 g/dL Low 12.0-15.0 [facility] Comment on above: Performed By: #### L 500.2500, L100.0100 ####[facility] [address] [place], [address] IG% 0.600 Normal 0.0-0.9 [facility] Comment on above: Result Comment: IG% - Immature Granulocytes (promyelocytes, myelocytes andmetamyelocytes) > 1% indicates that a LEFT SHIFT is Present. Performed By: #### L 500.2500, L100.0100 ####[facility] [address] [place], [address] Lymphocytes/100 WBC (Bld) 18.1 % Low 19-41 [facility] Comment on above: Performed By: #### L 500.2500, L100.0100 ####[facility] [address] [place], [address] MCH (RBC) [Entitic mass] 25.5 pg Low 27.0-32.0 [facility] Comment on above: Performed By: #### L 500.2500, L100.0100 ####[facility] [address] [place], [address] MCHC (RBC) [Mass/Vol] 27.8 g/dL Low 32-36 [facility] Comment on above: Performed By: #### L 500.2500, L100.0100 ####[facility] [address] [place], [address] MCV (RBC) [Entitic vol] 91.6 fL Normal 81-99 [facility] Comment on above: Performed By: #### L 500.2500, L100.0100 ####[facility] [address] [place], [address] Monocytes/100 WBC (Bld) 7.3 % Normal 0-10 [facility] Comment on above: Performed By: #### L 500.2500, L100.0100 ####[facility] [address] [place], [address] Neutrophils/100 WBC (Bld) 72.2 % High 47-70 [facility] Comment on above: Performed By: #### L 500.2500, L100.0100 ####[facility] [address] [place], [address] Nucleated RBC (Bld) [#/Vol] 0 10*3/uL Normal 0-5 [facility] Comment on above: Performed By: #### L 500.2500, L100.0100 ####[facility] [address] [place], [address] Platelet mean volume (Bld) [Entitic vol] 9.3 fL Normal 6.2-12.0 [facility] Comment on above: Performed By: #### L 500.2500, L100.0100 ####[facility] [address] [place], [address] Platelets (Bld) [#/Vol] 160 10*3/uL Normal 150-450 [facility] Comment on above: Performed By: #### L 500.2500, L100.0100 ####[facility] [address] [place], [address] RBC (Bld) [#/Vol] 4.04 10*6/uL Low 4.2-5.4 [facility] Comment on above: Performed By: #### L 500.2500, L100.0100 ####[facility] [address] [place], [address] RDW SD 56.2 fl High 35.1-43.9 [facility] Comment on above: Performed By: #### L 500.2500, L100.0100 ####[facility] [address] [place], [address] WBC (Bld) [#/Vol] 6.8 10*3/uL Normal 4.4-11.0 [facility] Comment on above: Performed By: #### L 500.2500, L100.0100 ####[facility] [address] [place], [address] Carbon dioxide, total [Moles /volume] in Central venous bloodOrdered By: Haydee Sanchez on 10-24-2024 CO2 [Moles/Vol] 27.4 mmol/L 21.0-32.0 [facility] Chloride assayOrdered By: Katie Sanchez on 10-24-2024 Chloride [Moles/Vol] 105 mmol/L 98-108 [facility] Culture, Blood (WB)on 2024 CUB No growth in 5 days. Normal [facility] Comment on above: Performed By: #### M 200.1000 ####[facility] [address] [place], [address] Discharge Instructionon 10-12 Discharge Instruction Normal [facility] Eosinophil percentageOrdered By: Haydee Sanchez on 10-24-2024 Eosinophils/100 WBC (Bld) 1.5 % 0-5 [facility] Erythrocyte distribution wid th ratioOrdered By: Haydee Sanchez on 10-24-2024 Erythrocyte distribution width (RBC) [Ratio] 16.6 % High 11.6-14.6 [facility] Erythrocyte distribution wid th standard deviationOrdered By: Haydee Sanchez on 10-24-2024 Erythrocyte distribution width (RBC) [Ratio] 56.2 fl High 35.1-43.9 [facility] Glomerular filtration rate ( GFR) estimation/1.73 sq m using serum, plasma, or whole bOrdered By: Haydee Sanchez on 10-24-2024 GFR/1.73 sq M.predicted among non-blacks MDRD (S/P/Bld) [Vol rate/Area] 50 mL/min/{1.73_m2} Low >60 [facility] Comment on above: mL/min/1.73m2 CKD-EP I Creatinine Equation (2020) [facility] deOrdered By: Haydee Sanchez on 10-24-2024 Glucose [Mass/Vol] 204 mg/dL High 74-106 [facility] Comment on above: MANAGEMENT OF PATIEN T CARE PER NURSING PROTOCOL Hematocrit Auto (Bld) [Volum e fraction]Ordered By: Haydee Sanchez on 10-24-2024 Hematocrit (Bld) [Volume fraction] 37.0 % 37-47 [facility] Hemoglobin measurementOrdere d By: Haydee Sanhcez on 10-24-2024 Hemoglobin (Bld) [Mass/Vol] 10.3 g/dL Low 12.0-15.0 [facility] Immature granulocytes/100 WB C Auto (Bld)Ordered By: Haydee Sanchez on 10-24-2024 Immature granulocytes/100 WBC (Bld) 0.600 % 0.0-0.9 [facility] Comment on above: IG% - Immature Granu locytes (promyelocytes, myelocytes and metamyelocytes) > 1% indicates that a LEFT SHIFT is Present. MCV (mean corpuscular volume ) determinationOrdered By: Haydee Sanchez on 10-24-2024 MCV (RBC) [Entitic vol] 91.6 fL 81-99 [facility] Mean corpuscular hemoglobin (MCH) determinationOrdered By: Haydee Sanchez on 10-24-2024 MCH (RBC) [Entitic mass] 25.5 pg Low 27.0-32.0 [facility] Mean corpuscular hemoglobin concentration (MCHC) determinationOrdered By: Haydee Sanchez on 10-24-2024 MCHC (RBC) [Mass/Vol] 27.8 g/dL Low 32-36 [facility] Mean platelet volume determi nationOrdered By: Haydee Sanchez on 10-24-2024 Platelet mean volume (Bld) [Entitic vol] 9.3 fL 6.2-12.0 [facility] Monocyte percentageOrdered B y: Haydee Sanchez on 10-24-2024 Monocytes/100 WBC (Bld) 7.3 % 0-10 [facility] Neutrophil percentageOrdered By: Haydee Sanchez on 10-24-2024 Neutrophils/100 WBC (Bld) 72.2 % High 47-70 [facility] Nucleated red blood cell per centageOrdered By: Haydee Sanchez 10-24-2024 Nucleated RBC/100 WBC (Bld) [Ratio] 0 % 0-5 [facility] Platelet countOrdered By: Katie Sanchez on 10-24-2024 Platelets (Bld) [#/Vol] 160 10*3/uL 150-450 [facility] Potassium measurement (mass/ volume)Ordered By: Haydee Sanchez on 10-24-2024 Potassium (Unsp spec) [Mass/Vol] 4.9 mmol/L 3.3-5.1 [facility] RBC Auto (Bld) [#/Vol]Ordere d By: Haydee Sanchez on 10-24-2024 RBC (Bld) [#/Vol] 4.04 10*6/uL Low 4.2-5.4 [facility] Serum creatinine measurement (mass/volume)Ordered By: Haydee Sanchez on 10-24-2024 Creatinine [Mass/Vol] 1.11 mg/dL 0.70-1.20 [facility] Serum glucose measurement (m ass/volume)Ordered By: Haydee Sanchez on 10-24-2024 Glucose [Mass/Vol] 214 mg/dL High 70-99 [facility] Serum or plasma calcium kezia urement (mass/volume)Ordered By: Haydee Sanchez on 10-24-2024 Calcium [Mass/Vol] 8.7 mg/dL 7.6-11.0 [facility] Serum or plasma urea nitroge n measurement (mass/volume)Ordered By: Haydee Sanchez on 10-24-2024 Urea nitrogen [Mass/Vol] 20 mg/dL High 4-19 [facility] Sodium levelOrdered By: Haydeebright Sanchez on 10-24-2024 Sodium [Moles/Vol] 138 mmol/L 133-145 [facility] White blood cell (WBC) count Ordered By: Haydee Sanchez on 10-24-2024 WBC (Bld) [#/Vol] 6.8 10*3/uL 4.4-11.0 [facility] Basic Metabolic Profile (BMP )on 10-23-2024 BUN/CRE 17.5 RATIO Normal 10-20 [facility] Comment on above: Performed By: #### L 500.2500, L100.0100 ####[facility] [address] [place], [address] Calcium [Mass/Vol] 8.6 mg/dL Normal 7.6-11.0 [facility] Comment on above: Performed By: #### L 500.2500, L100.0100 ####[facility] [address] [place], [address] Chloride [Moles/Vol] 105 mmol/L Normal 98-108 [facility] Comment on above: Performed By: #### L 500.2500, L100.0100 ####[facility] [address] [place], [address] CO2 [Moles/Vol] 25.5 mmol/L Normal 21.0-32.0 [facility] Comment on above: Performed By: #### L 500.2500, L100.0100 ####[facility] [address] [place], [address] Creatinine [Mass/Vol] 1.14 mg/dL Normal 0.70-1.20 [facility] Comment on above: Performed By: #### L 500.2500, L100.0100 ####[facility] [address] [place], [address] ECRCL 72.76 ml/min Normal 50-250 [facility] Comment on above: Performed By: #### L 500.2500, L100.0100 ####[facility] [address] [place], [address] GAP 8 Normal 5-15 [facility] Comment on above: Performed By: #### L 500.2500, L100.0100 ####[facility] [address] [place], [address] GFR/1.73 sq M.predicted among non-blacks MDRD (S/P/Bld) [Vol rate/Area] 49 mL/min/{1.73_m2} Low >60 [facility] Comment on above: Result Comment: mL/m in/1.73m2 CKD-EPI Creatinine Equation (2020) Performed By: #### L 500.2500, L100.0100 ####[facility] [address] [place], [address] Glucose [Mass/Vol] 191 mg/dL High 70-99 [facility] Comment on above: Performed By: #### L 500.2500, L100.0100 ####[facility] [address] [place], [address] Potassium [Moles/Vol] 4.5 mmol/L Normal 3.3-5.1 [facility] Comment on above: Performed By: #### L 500.2500, L100.0100 ####[facility] [address] [place], [address] Sodium [Moles/Vol] 138 mmol/L Normal 133-145 [facility] Comment on above: Performed By: #### L 500.2500, L100.0100 ####[facility] [address] [place], [address] Urea nitrogen [Mass/Vol] 20 mg/dL High 4-19 [facility] Comment on above: Performed By: #### L 500.2500, L100.0100 ####[facility] [address] [place], [address] Bedside Glucoseon 10-23-2024 FINGERSTICK GLU 230 mg/dL High 74-106 [facility] Comment on above: Result Comment: ALEXIS GEMENT OF PATIENT CARE PER NURSING PROTOCOL Performed By: #### L 501.080 ####[facility] [address] [place], [address] FINGERSTICK GLU 186 mg/dL High 74-106 [facility] Comment on above: Result Comment: ALEXIS GEMENT OF PATIENT CARE PER NURSING PROTOCOL Performed By: #### L 501.080 ####[facility] [address] [place], [address] FINGERSTICK GLU 171 mg/dL High 74-106 [facility] Comment on above: Result Comment: ALEXIS GEMENT OF PATIENT CARE PER NURSING PROTOCOL Performed By: #### L 501.080 ####[facility] [address] [place], [address] FINGERSTICK GLU 178 mg/dL High 74-106 [facility] Comment on above: Result Comment: ALEXIS GEMENT OF PATIENT CARE PER NURSING PROTOCOL Performed By: #### L 501.080 ####[facility] [address] [place], [address] FINGERSTICK GLU 219 mg/dL High 74-106 [facility] Comment on above: Result Comment: ALEXIS GEMENT OF PATIENT CARE PER NURSING PROTOCOL Performed By: #### L 501.080 ####[facility] [address] [place], [address] CBC W/Diff, Automatedon 10-12-2024 Absolute Lymph 1.06 X10 3/uL Normal 0.83-4.51 [facility] Comment on above: Performed By: #### L 500.2500, L100.0100 ####[facility] [address] [place], [address] Absolute Neut 5.5 X10 3/uL Normal 2.0-7.7 [facility] Comment on above: Performed By: #### L 500.2500, L100.0100 ####[facility] [address] [place], [address] Basophils/100 WBC (Bld) 0.1 % Normal 0-1 [facility] Comment on above: Performed By: #### L 500.2500, L100.0100 ####[facility] [address] [place], [address] Eosinophils/100 WBC (Bld) 1.0 % Normal 0-5 [facility] Comment on above: Performed By: #### L 500.2500, L100.0100 ####[facility] [address] [place], [address] Erythrocyte distribution width (RBC) [Ratio] 16.9 % High 11.6-14.6 [facility] Comment on above: Performed By: #### L 500.2500, L100.0100 ####[facility] [address] [place], [address] Hematocrit (Bld) [Volume fraction] 39.0 % Normal 37-47 [facility] Comment on above: Performed By: #### L 500.2500, L100.0100 ####[facility] [address] [place], [address] Hemoglobin (Bld) [Mass/Vol] 10.6 g/dL Low 12.0-15.0 [facility] Comment on above: Performed By: #### L 500.2500, L100.0100 ####[facility] [address] [place], [address] IG% 0.400 Normal 0.0-0.9 [facility] Comment on above: Result Comment: IG% - Immature Granulocytes (promyelocytes, myelocytes andmetamyelocytes) > 1% indicates that a LEFT SHIFT is Present. Performed By: #### L 500.2500, L100.0100 ####[facility] [address] [place], [address] Lymphocytes/100 WBC (Bld) 14.9 % Low 19-41 [facility] Comment on above: Performed By: #### L 500.2500, L100.0100 ####[facility] [address] [place], [address] MCH (RBC) [Entitic mass] 25.0 pg Low 27.0-32.0 [facility] Comment on above: Performed By: #### L 500.2500, L100.0100 ####[facility] [address] [place], [address] MCHC (RBC) [Mass/Vol] 27.2 g/dL Low 32-36 [facility] Comment on above: Performed By: #### L 500.2500, L100.0100 ####[facility] [address] [place], [address] MCV (RBC) [Entitic vol] 92.0 fL Normal 81-99 [facility] Comment on above: Performed By: #### L 500.2500, L100.0100 ####[facility] [address] [place], [address] Monocytes/100 WBC (Bld) 6.3 % Normal 0-10 [facility] Comment on above: Performed By: #### L 500.2500, L100.0100 ####[facility] [address] [place], [address] Neutrophils/100 WBC (Bld) 77.3 % High 47-70 [facility] Comment on above: Performed By: #### L 500.2500, L100.0100 ####[facility] [address] [place], [address] Nucleated RBC (Bld) [#/Vol] 0 10*3/uL Normal 0-5 [facility] Comment on above: Performed By: #### L 500.2500, L100.0100 ####[facility] [address] [place], [address] Platelet mean volume (Bld) [Entitic vol] 9.4 fL Normal 6.2-12.0 [facility] Comment on above: Performed By: #### L 500.2500, L100.0100 ####[facility] [address] [place], [address] Platelets (Bld) [#/Vol] 171 10*3/uL Normal 150-450 [facility] Comment on above: Performed By: #### L 500.2500, L100.0100 ####[facility] [address] [place], [address] RBC (Bld) [#/Vol] 4.24 10*6/uL Normal 4.2-5.4 [facility] Comment on above: Performed By: #### L 500.2500, L100.0100 ####[facility] [address] [place], [address] RDW SD 57.0 fl High 35.1-43.9 [facility] Comment on above: Performed By: #### L 500.2500, L100.0100 ####[facility] [address] [place], [address] WBC (Bld) [#/Vol] 7.1 10*3/uL Normal 4.4-11.0 [facility] Comment on above: Performed By: #### L 500.2500, L100.0100 ####[facility] [address] [place], [address] International normalized rat io (INR) calculationOrdered By: Nico Garcia on 10-23-2024 INR Coag (Bld) [Relative time] 3.5 {INR} [facility] Prothrombin Time w/INRon INR Coag (PPP) [Relative time] 3.5 {INR} Normal [facility] Comment on above: Performed By: #### L 300.3900 ####[facility] [address] [place], [address] PT Coag (PPP) [Time] 35.9 s High 11.7-14.9 [facility] Comment on above: Performed By: #### L 300.3900 ####[facility] [address] [place], [address] Prothrombin timeOrdered By: Nico Garcia on 10-23-2024 PT Coag (PPP) [Time] 35.9 s High 11.7-14.9 [facility] Basic Metabolic Profile (BMP )on 10-22-2024 BUN/CRE 17.9 RATIO Normal 10-20 [facility] Comment on above: Performed By: #### L 100.0100, L500.2500 ####[facility] [address] [place], [address] Calcium [Mass/Vol] 8.4 mg/dL Normal 7.6-11.0 [facility] Comment on above: Performed By: #### L 100.0100, L500.2500 ####[facility] [address] [place], [address] Chloride [Moles/Vol] 105 mmol/L Normal 98-108 [facility] Comment on above: Performed By: #### L 100.0100, L500.2500 ####[facility] [address] [place], [address] CO2 [Moles/Vol] 26.7 mmol/L Normal 21.0-32.0 [facility] Comment on above: Performed By: #### L 100.0100, L500.2500 ####[facility] [address] [place], [address] Creatinine [Mass/Vol] 1.17 mg/dL Normal 0.70-1.20 [facility] Comment on above: Performed By: #### L 100.0100, L500.2500 ####[facility] [address] [place], [address] ECRCL 70.89 ml/min Normal 50-250 [facility] Comment on above: Performed By: #### L 100.0100, L500.2500 ####[facility] [address] [place], [address] GAP 7 Normal 5-15 [facility] Comment on above: Performed By: #### L 100.0100, L500.2500 ####[facility] [address] [place], [address] GFR/1.73 sq M.predicted among non-blacks MDRD (S/P/Bld) [Vol rate/Area] 47 mL/min/{1.73_m2} Low >60 [facility] Comment on above: Result Comment: mL/m in/1.73m2 CKD-EPI Creatinine Equation (2020) Performed By: #### L 100.0100, L500.2500 ####[facility] [address] [place], [address] Glucose [Mass/Vol] 178 mg/dL High 70-99 [facility] Comment on above: Performed By: #### L 100.0100, L500.2500 ####[facility] [facility] [address] [place], [address] Potassium [Moles/Vol] 4.2 mmol/L Normal 3.3-5.1 [facility] Comment on above: Performed By: #### L 100.0100, L500.2500 ####[facility] [address] [place], [address] Sodium [Moles/Vol] 139 mmol/L Normal 133-145 [facility] Comment on above: Performed By: #### L 100.0100, L500.2500 ####[facility] [address] [place], [address] Urea nitrogen [Mass/Vol] 21 mg/dL High 4-19 [facility] Comment on above: Performed By: #### L 100.0100, L500.2500 ####[facility] [address] [place], [address] Bedside Glucoseon 10-22-2024 FINGERSTICK GLU 221 mg/dL High 74-106 [facility] Comment on above: Result Comment: ALEXIS GEMENT OF PATIENT CARE PER NURSING PROTOCOL Performed By: #### L 501.080 ####[facility] [address] [place], [address] FINGERSTICK GLU 214 mg/dL High 74-106 [facility] Comment on above: Result Comment: ALEXIS GEMENT OF PATIENT CARE PER NURSING PROTOCOL Performed By: #### L 501.080 ####[facility] [address] [place], [address] FINGERSTICK GLU 165 mg/dL High 74-106 [facility] Comment on above: Result Comment: ALEXIS GEMENT OF PATIENT CARE PER NURSING PROTOCOL Performed By: #### L 501.080 ####[facility] [address] [place], [address] CBC W/Diff, Automatedon 10-12 Absolute Lymph 1.71 X10 3/uL Normal 0.83-4.51 [facility] Comment on above: Performed By: #### L 100.0100, L500.2500 ####[facility] [address] [place], [address] Absolute Neut 4.9 X10 3/uL Normal 2.0-7.7 [facility] Comment on above: Performed By: #### L 100.0100, L500.2500 ####[facility] [address] [place], [address] Basophils/100 WBC (Bld) 0.4 % Normal 0-1 [facility] Comment on above: Performed By: #### L 100.0100, L500.2500 ####[facility] [address] [place], [address] Eosinophils/100 WBC (Bld) 2.7 % Normal 0-5 [facility] Comment on above: Performed By: #### L 100.0100, L500.2500 ####[facility] [address] [place], [address] Erythrocyte distribution width (RBC) [Ratio] 16.7 % High 11.6-14.6 [facility] Comment on above: Performed By: #### L 100.0100, L500.2500 ####[facility] [address] [place], [address] Hematocrit (Bld) [Volume fraction] 35.7 % Low 37-47 [facility] Comment on above: Performed By: #### L 100.0100, L500.2500 ####[facility] [address] [place], [address] Hemoglobin (Bld) [Mass/Vol] 10.1 g/dL Low 12.0-15.0 [facility] Comment on above: Performed By: #### L 100.0100, L500.2500 ####[facility] [address] [place], [address] IG% 0.500 Normal 0.0-0.9 [facility] Comment on above: Result Comment: IG% - Immature Granulocytes (promyelocytes, myelocytes andmetamyelocytes) > 1% indicates that a LEFT SHIFT is Present. Performed By: #### L 100.0100, L500.2500 ####[facility] [address] [place], [address] Lymphocytes/100 WBC (Bld) 23.0 % Normal 19-41 [facility] Comment on above: Performed By: #### L 100.0100, L500.2500 ####[facility] [address] [place], [address] MCH (RBC) [Entitic mass] 25.3 pg Low 27.0-32.0 [facility] Comment on above: Performed By: #### L 100.0100, L500.2500 ####[facility] [address] [place], [address] MCHC (RBC) [Mass/Vol] 28.3 g/dL Low 32-36 [facility] Comment on above: Performed By: #### L 100.0100, L500.2500 ####[facility] [address] [place], [address] MCV (RBC) [Entitic vol] 89.5 fL Normal 81-99 [facility] Comment on above: Performed By: #### L 100.0100, L500.2500 ####[facility] [address] [place], [address] Monocytes/100 WBC (Bld) 7.1 % Normal 0-10 [facility] Comment on above: Performed By: #### L 100.0100, L500.2500 ####[facility] [address] [place], [address] Neutrophils/100 WBC (Bld) 66.3 % Normal 47-70 [facility] Comment on above: Performed By: #### L 100.0100, L500.2500 ####[facility] [address] [place], [address] Nucleated RBC (Bld) [#/Vol] 0 10*3/uL Normal 0-5 [facility] Comment on above: Performed By: #### L 100.0100, L500.2500 ####[facility] [address] [place], [address] Platelet mean volume (Bld) [Entitic vol] 9.0 fL Normal 6.2-12.0 [facility] Comment on above: Performed By: #### L 100.0100, L500.2500 ####[facility] [address] [place], [address] Platelets (Bld) [#/Vol] 164 10*3/uL Normal 150-450 [facility] Comment on above: Performed By: #### L 100.0100, L500.2500 ####[facility] [address] [place], [address] RBC (Bld) [#/Vol] 3.99 10*6/uL Low 4.2-5.4 [facility] Comment on above: Performed By: #### L 100.0100, L500.2500 ####[facility] [address] [place], [address] RDW SD 54.9 fl High 35.1-43.9 [facility] Comment on above: Performed By: #### L 100.0100, L500.2500 ####[facility] [address] [place], [address] WBC (Bld) [#/Vol] 7.5 10*3/uL Normal 4.4-11.0 [facility] Comment on above: Performed By: #### L 100.0100, L500.2500 ####[facility] [address] [place], [address] Electrocardiogram reportOrde red By: Urszula Nicole on 10-22-2024 EKG study [facility] [address] [place] [address] 12 Lead EKG 10/18/24 1535 MR#: [id number] Acct: [id number] Name: TOD HUNT Rep #:[id number] : 1945 78 From: Urszula Nicole MD Attending Dr: Dr. Haydee Sanchez MD Status: ADM IN Ordering Dr: Ryan Yang MD Date: 10/05 Location: [facility] Sex: F C Admitted: 10/18/24 Test Reason : HIGH BS Blood Pressure : */* mmHG Vent. Rate : 51 BPM Atrial Rate : 51 BPM P-R Int : 184 ms QRS Dur : 112 ms QT Int : 478 ms P-R-T Axes : 64 15 -36 degrees QTcB Int : 440 ms Sinus bradycardia with Premature atrial complexes Low voltage QRS Nonspecific T wave abnormality Abnormal ECG Confirmed by URSZULA NICOLE ([id number]), associate editor BETHEL PALMA ([id number]) on 10/22/2024 6:47:32 AM Referred By: Ryan Yang Confirmed By: URSZULA NICOLE 10/22/24 0647 Date _ Urszula Nicole MD CC: Dr. Socrates Spangler MD; Dr. Ryan Yang MD; Dr. Haydee Sanchez MD ~ Signed [facility] Other Phone: Prothrombin Time w/INRon INR Coag (PPP) [Relative time] 3.5 {INR} Normal [facility] Comment on above: Performed By: #### L 987.0367 ####[facility] [address] [place], [address] PT Coag (PPP) [Time] 35.8 s High 11.7-14.9 [facility] Comment on above: Performed By: #### L 300.3900 ####[facility] [address] [place], [address] Basic Metabolic Profile (BMP )on 10-21-2024 BUN/CRE 17.3 RATIO Normal 10-20 [facility] Comment on above: Performed By: #### L 100.0100, L500.2500 ####[facility] [address] [place], [address] Calcium [Mass/Vol] 8.3 mg/dL Normal 7.6-11.0 [facility] Comment on above: Performed By: #### L 100.0100, L500.2500 ####[facility] [address] [place], [address] Chloride [Moles/Vol] 104 mmol/L Normal 98-108 [facility] Comment on above: Performed By: #### L 100.0100, L500.2500 ####[facility] [address] [place], [address] CO2 [Moles/Vol] 24.3 mmol/L Normal 21.0-32.0 [facility] Comment on above: Performed By: #### L 100.0100, L500.2500 ####[facility] [address] [place], [address] Creatinine [Mass/Vol] 1.18 mg/dL Normal 0.70-1.20 [facility] Comment on above: Performed By: #### L 100.0100, L500.2500 ####[facility] [address] [place], [address] ECRCL 69.45 ml/min Normal 50-250 [facility] Comment on above: Performed By: #### L 100.0100, L500.2500 ####[facility] [address] [place], [address] GAP 10 Normal 5-15 [facility] Comment on above: Performed By: #### L 100.0100, L500.2500 ####[facility] [address] [place], [address] GFR/1.73 sq M.predicted among non-blacks MDRD (S/P/Bld) [Vol rate/Area] 47 mL/min/{1.73_m2} Low >60 [facility] Comment on above: Result Comment: mL/m in/1.73m2 CKD-EPI Creatinine Equation (2020) Performed By: #### L 100.0100, L500.2500 ####[facility] [address] [place], [address] Glucose [Mass/Vol] 132 mg/dL High 70-99 [facility] Comment on above: Performed By: #### L 100.0100, L500.2500 ####[facility] [address] [place], [address] Potassium [Moles/Vol] 4.7 mmol/L Normal 3.3-5.1 [facility] Comment on above: Result Comment: Hemo lysis present, Results??could be affected.?? Performed By: #### L 100.0100, L500.2500 ####[facility] [address] [place], [address] Sodium [Moles/Vol] 139 mmol/L Normal 133-145 [facility] Comment on above: Performed By: #### L 100.0100, L500.2500 ####[facility] [address] [place], [address] Urea nitrogen [Mass/Vol] 20 mg/dL High 4-19 [facility] Comment on above: Performed By: #### L 100.0100, L500.2500 ####[facility] [address] [place], [address] Bedside Glucoseon 10-21-2024 FINGERSTICK GLU 246 mg/dL High 74-106 [facility] Comment on above: Result Comment: ALEXIS GEMENT OF PATIENT CARE PER NURSING PROTOCOL Performed By: #### L 501.080 ####[facility] [address] [place], [address] FINGERSTICK GLU 164 mg/dL High [facility]106 [facility] Comment on above: Result Comment: ALEXIS GEMENT OF PATIENT CARE PER NURSING PROTOCOL Performed By: #### L 501.080 ####[facility] [address] [place], [address] FINGERSTICK GLU 162 mg/dL High -106 [facility] Comment on above: Result Comment: ALEXIS GEMENT OF PATIENT CARE PER NURSING PROTOCOL Performed By: #### L 501.080 ####[facility] [address] [place], [address] FINGERSTICK GLU 129 mg/dL High [address] [place] [address] Comment on above: Result Comment: ALEXIS GEMENT OF PATIENT CARE PER NURSING PROTOCOL Performed By: #### L 501.080 ####[facility] [address] [place], [address] CBC W/Diff, Automatedon 10-12 Absolute Lymph 1.54 X10 3/uL Normal 0.83-4.51 [facility] Comment on above: Performed By: #### L 100.0100, L500.2500 ####[facility] [address] [place], [address] Absolute Neut 5.4 X10 3/uL Normal 2.0-7.7 [facility] Comment on above: Performed By: #### L 100.0100, L500.2500 ####[facility] [address] [place], [address] Basophils/100 WBC (Bld) 0.4 % Normal 0-1 [facility] Comment on above: Performed By: #### L 100.0100, L500.2500 ####[facility] [address] [place], [address] Eosinophils/100 WBC (Bld) 1.2 % Normal 0-5 [facility] Comment on above: Performed By: #### L 100.0100, L500.2500 ####[facility] [address] [place], [address] Erythrocyte distribution width (RBC) [Ratio] 16.7 % High 11.6-14.6 [facility] Comment on above: Performed By: #### L 100.0100, L500.2500 ####[facility] [address] [place], [address] Hematocrit (Bld) [Volume fraction] 36.1 % Low 37-47 [facility] Comment on above: Performed By: #### L 100.0100, L500.2500 ####[facility] [address] [place], [address] Hemoglobin (Bld) [Mass/Vol] 10.5 g/dL Low 12.0-15.0 [facility] Comment on above: Performed By: #### L 100.0100, L500.2500 ####[facility] [address] [place], [address] IG% 0.400 Normal 0.0-0.9 [facility] Comment on above: Result Comment: IG% - Immature Granulocytes (promyelocytes, myelocytes andmetamyelocytes) > 1% indicates that a LEFT SHIFT is Present. Performed By: #### L 100.0100, L500.2500 ####[facility] [address] [place], [address] Lymphocytes/100 WBC (Bld) 20.1 % Normal 19-41 [facility] Comment on above: Performed By: #### L 100.0100, L500.2500 ####[facility] [address] [place], [address] MCH (RBC) [Entitic mass] 25.9 pg Low 27.0-32.0 [facility] Comment on above: Performed By: #### L 100.0100, L500.2500 ####[facility] [address] [place], [address] MCHC (RBC) [Mass/Vol] 29.1 g/dL Low 32-36 [facility] Comment on above: Performed By: #### L 100.0100, L500.2500 ####[facility] [address] [place], [address] MCV (RBC) [Entitic vol] 88.9 fL Normal 81-99 [facility] Comment on above: Performed By: #### L 100.0100, L500.2500 ####[facility] [address] [place], [address] Monocytes/100 WBC (Bld) 7.9 % Normal 0-10 [facility] Comment on above: Performed By: #### L 100.0100, L500.2500 ####[facility] [address] [place], [address] Neutrophils/100 WBC (Bld) 70.0 % Normal 47-70 [facility] Comment on above: Performed By: #### L 100.0100, L500.2500 ####[facility] [address] [place], [address] Nucleated RBC (Bld) [#/Vol] 0.3 10*3/uL Normal 0-5 [facility] Comment on above: Performed By: #### L 100.0100, L500.2500 ####[facility] [address] [place], [address] Platelet mean volume (Bld) [Entitic vol] 9.2 fL Normal 6.2-12.0 [facility] Comment on above: Performed By: #### L 100.0100, L500.2500 ####[facility] [address] [place], [address] Platelets (Bld) [#/Vol] 184 10*3/uL Normal 150-450 [facility] Comment on above: Performed By: #### L 100.0100, L500.2500 ####[facility] [address] [place], [address] RBC (Bld) [#/Vol] 4.06 10*6/uL Low 4.2-5.4 [facility] Comment on above: Performed By: #### L 100.0100, L500.2500 ####[facility] [address] [place], [address] RDW SD 54.5 fl High 35.1-43.9 [facility] Comment on above: Performed By: #### L 100.0100, L500.2500 ####[facility] [address] [place], [address] WBC (Bld) [#/Vol] 7.7 10*3/uL Normal 4.4-11.0 [facility] Comment on above: Performed By: #### L 100.0100, L500.2500 ####[facility] [address] [place], [address] Prothrombin Time w/INRon INR Coag (PPP) [Relative time] 3.5 {INR} Normal [facility] Comment on above: Performed By: #### L 300.3900 ####[facility] [address] [place], [address] PT Coag (PPP) [Time] 35.6 s High 11.7-14.9 [facility] Comment on above: Performed By: #### L 300.3900 ####[facility] [address] [place], [address] Basic Metabolic Profile (BMP )on 10-20-2024 BUN Normal 4-19 [facility] Comment on above: Result Comment: ILDEFONSO Espinosa (SHRUTI) SAID 3AM BMP DRAW TO BE USED FOR 0555 BMPDRAW Performed By: #### L 500.2500, L100.0100 ####[facility] [address] [place], [address] BUN/CRE Normal 10-20 [facility] Comment on above: Result Comment: ILDEFONSO Espinosa (SHRUTI) SAID 3AM BMP DRAW TO BE USED FOR 0555 BMPDRAW Performed By: #### L 500.2500, L100.0100 ####[facility] [address] [place], [address] Calcium Normal 7.6-11.0 [facility] Comment on above: Result Comment: ILDEFONSO Espinosa (SHRUTI) SAID 3AM BMP DRAW TO BE USED FOR 0555 BMPDRAW Performed By: #### L 500.2500, L100.0100 ####[facility] [address] [place], [address] CL Normal 98-108 [facility] Comment on above: Result Comment: ILDEFONSO Espinosa (SHRUTI) SAID 3AM BMP DRAW TO BE USED FOR 0555 BMPDRAW Performed By: #### L 500.2500, L100.0100 ####[facility] [address] [place], [address] CO2 Normal 21.0-32.0 [facility] Comment on above: Result Comment: ILDEFONSO Espinosa (SHRUTI) SAID 3AM BMP DRAW TO BE USED FOR 0555 BMPDRAW Performed By: #### L 500.2500, L100.0100 ####[facility] [address] [place], [address] CREAT,SERUM Normal 0.70-1.20 [facility] Comment on above: Result Comment: ILDEFONSO Espinosa (SHRUTI) SAID 3AM BMP DRAW TO BE USED FOR 0555 BMPDRAW Performed By: #### L 500.2500, L100.0100 ####[facility] [address] [place], [address] eGFR Normal >60 [facility] Comment on above: Result Comment: ILDEFONSO Espinosa (SHRUTI) SAID 3AM BMP DRAW TO BE USED FOR 0555 BMPDRAW Performed By: #### L 500.2500, L100.0100 ####[facility] [address] [place], [address] GAP Normal 5-15 [facility] Comment on above: Result Comment: ILDEFONSO Espinosa (SHRUTI) SAID 3AM BMP DRAW TO BE USED FOR 0555 BMPDRAW Performed By: #### L 500.2500, L100.0100 ####[facility] [address] [place], [address] GLU Normal 70-99 [facility] Comment on above: Result Comment: ILDEFONSO Espinosa (SHRUTI) SAID 3AM BMP DRAW TO BE USED FOR 0555 BMPDRAW Performed By: #### L 500.2500, L100.0100 ####[facility] [address] [place], [address] Potassium Normal 3.3-5.1 [facility] Comment on above: Result Comment: ILDEFONSO Espinosa (SHRUTI) SAID 3AM BMP DRAW TO BE USED FOR 0555 BMPDRAW Performed By: #### L 500.2500, L100.0100 ####[facility] [address] [place], [address] Basic Metabolic Profile (BMP) Normal 133-145 [facility] Comment on above: Result Comment: ILDEFONSO Espinosa (SHRUTI) SAID 3AM BMP DRAW TO BE USED FOR 0555 BMPDRAW Performed By: #### L 500.2500, L100.0100 ####[facility] [address] [place], [address] BUN/CRE 17.2 RATIO Normal 10-20 [facility] Comment on above: Performed By: #### L 500.2500 ####[facility] [address] [place], [address] Calcium [Mass/Vol] 8.8 mg/dL Normal 7.6-11.0 [facility] Comment on above: Performed By: #### L 500.2500 ####[facility] [address] [place], [address] Chloride [Moles/Vol] 106 mmol/L Normal 98-108 [facility] Comment on above: Performed By: #### L 500.2500 ####[facility] [address] [place], [address] CO2 [Moles/Vol] 28.8 mmol/L Normal 21.0-32.0 [facility] Comment on above: Performed By: #### L 500.2500 ####[facility] [address] [place], [address] Creatinine [Mass/Vol] 1.20 mg/dL Normal 0.70-1.20 [facility] Comment on above: Performed By: #### L 500.2500 ####[facility] [address] [place], [address] ECRCL 68.30 ml/min Normal 50-250 [facility] Comment on above: Performed By: #### L 500.2500 ####[facility] [address] [place], [address] GAP 7 Normal 5-15 [facility] Comment on above: Performed By: #### L 500.2500 ####[facility] [address] [place], [address] GFR/1.73 sq M.predicted among non-blacks MDRD (S/P/Bld) [Vol rate/Area] 46 mL/min/{1.73_m2} Low >60 [facility] Comment on above: Result Comment: mL/m in/1.73m2 CKD-EPI Creatinine Equation (2020) Performed By: #### L 500.2500 ####[facility] [address] [place], [address] Glucose [Mass/Vol] 103 mg/dL High 70-99 [facility] Comment on above: Performed By: #### L 500.2500 ####[facility] [address] [place], [address] Potassium [Moles/Vol] 5.5 mmol/L High 3.3-5.1 [facility] Comment on above: Performed By: #### L 500.2500 ####[facility] [address] [place], [address] Sodium [Moles/Vol] 142 mmol/L Normal 133-145 [facility] Comment on above: Performed By: #### L 500.2500 ####[facility] [address] [place], [address] Urea nitrogen [Mass/Vol] 21 mg/dL High 4-19 [facility] Comment on above: Performed By: #### L 500.2500 ####[facility] [address] [place], [address] Bedside Glucoseon 10-20-2024 FINGERSTICK GLU 183 mg/dL High 74-106 [facility] Comment on above: Result Comment: ALEXIS GEMENT OF PATIENT CARE PER NURSING PROTOCOL Performed By: #### L 501.080 ####[facility] [address] [place], [address] FINGERSTICK GLU 141 mg/dL High 74-106 [facility] Comment on above: Result Comment: ALEXIS GEMENT OF PATIENT CARE PER NURSING PROTOCOL Performed By: #### L 501.080 ####[facility] [address] [place], [address] FINGERSTICK GLU 114 mg/dL High 74-106 [facility] Comment on above: Result Comment: ALEXIS GEMENT OF PATIENT CARE PER NURSING PROTOCOL Performed By: #### L 501.080 ####[facility] [address] [place], [address] FINGERSTICK GLU 92 mg/dL Normal 74-106 [facility] Comment on above: Result Comment: ALEXIS GEMENT OF PATIENT CARE PER NURSING PROTOCOL Performed By: #### L 501.080 ####[facility] [address] [place], [address] CBC W/Diff, Automatedon 08-0 9-2024 Absolute Lymph 1.10 X10 3/uL Normal 0.83-4.51 [facility] Comment on above: Performed By: #### L 500.2500, L100.0100 ####[facility] [address] [place], [address] Absolute Neut 8.5 X10 3/uL High 2.0-7.7 [facility] Comment on above: Performed By: #### L 500.2500, L100.0100 ####[facility] [address] [place], [address] Basophils/100 WBC (Bld) 0.1 % Normal 0-1 [facility] Comment on above: Performed By: #### L 500.2500, L100.0100 ####[facility] [address] [place], [address] Eosinophils/100 WBC (Bld) 0.2 % Normal 0-5 [facility] Comment on above: Performed By: #### L 500.2500, L100.0100 ####[facility] [address] [place], [address] Erythrocyte distribution width (RBC) [Ratio] 16.5 % High 11.6-14.6 [facility] Comment on above: Performed By: #### L 500.2500, L100.0100 ####[facility] [address] [place], [address] Hematocrit (Bld) [Volume fraction] 38.9 % Normal 37-47 [facility] Comment on above: Performed By: #### L 500.2500, L100.0100 ####[facility] [address] [place], [address] Hemoglobin (Bld) [Mass/Vol] 10.8 g/dL Low 12.0-15.0 [facility] Comment on above: Performed By: #### L 500.2500, L100.0100 ####[facility] [address] [place], [address] IG% 0.200 Normal 0.0-0.9 [facility] Comment on above: Result Comment: IG% - Immature Granulocytes (promyelocytes, myelocytes andmetamyelocytes) > 1% indicates that a LEFT SHIFT is Present. Performed By: #### L 500.2500, L100.0100 ####[facility] [address] [place], [address] Lymphocytes/100 WBC (Bld) 10.6 % Low 19-41 [facility] Comment on above: Performed By: #### L 500.2500, L100.0100 ####[facility] [address] [place], [address] MCH (RBC) [Entitic mass] 25.4 pg Low 27.0-32.0 [facility] Comment on above: Performed By: #### L 500.2500, L100.0100 ####[facility] [address] [place], [address] MCHC (RBC) [Mass/Vol] 27.8 g/dL Low 32-36 [facility] Comment on above: Performed By: #### L 500.2500, L100.0100 ####[facility] [address] [place], [address] MCV (RBC) [Entitic vol] 91.5 fL Normal 81-99 [facility] Comment on above: Performed By: #### L 500.2500, L100.0100 ####[facility] [address] [place], [address] Monocytes/100 WBC (Bld) 7.0 % Normal 0-10 [facility] Comment on above: Performed By: #### L 500.2500, L100.0100 ####[facility] [address] [place], [address] Neutrophils/100 WBC (Bld) 81.9 % High 47-70 [facility] Comment on above: Performed By: #### L 500.2500, L100.0100 ####[facility] [address] [place], [address] Nucleated RBC (Bld) [#/Vol] 0 10*3/uL Normal 0-5 [facility] Comment on above: Performed By: #### L 500.2500, L100.0100 ####[facility] [address] [place], [address] Platelet mean volume (Bld) [Entitic vol] 9.4 fL Normal 6.2-12.0 [facility] Comment on above: Performed By: #### L 500.2500, L100.0100 ####[facility] [address] [place], [address] Platelets (Bld) [#/Vol] 191 10*3/uL Normal 150-450 [facility] Comment on above: Performed By: #### L 500.2500, L100.0100 ####[facility] [address] [place], [address] RBC (Bld) [#/Vol] 4.25 10*6/uL Normal 4.2-5.4 [facility] Comment on above: Performed By: #### L 500.2500, L100.0100 ####[facility] [address] [place], [address] RDW SD 55.8 fl High 35.1-43.9 [facility] Comment on above: Performed By: #### L 500.2500, L100.0100 ####[facility] [address] [place], [address] WBC (Bld) [#/Vol] 10.3 10*3/uL Normal 4.4-11.0 [facility] Comment on above: Performed By: #### L 500.2500, L100.0100 ####[facility] [address] [place], [address] Potassiumon 10-20-2024 Potassium [Moles/Vol] 5.8 mmol/L High 3.3-5.1 [facility] Comment on above: Order Comment: 2 PHL EBOTOMISTS ON 2ND SHIFT UTO. 3RD SHIFT TOATTEMPT-DSCOTT2 Result Comment: Hemo lysis present, Results??could be affected.?? Performed By: #### L 501.5600 ####[facility] [address] [place], [address] Prothrombin Time w/INRon INR Coag (PPP) [Relative time] 4.9 {INR} Invalid Interpretation Code [facility] Comment on above: Result Comment: CRIT ICAL VALUE CALLED TO LJAKEXTKR02/09/25 0348 Thomas Ledbetter.RESULTS READ BACK BY SAME. Performed By: #### L 300.3900 ####[facility] [address] [place], [address] PT Coag (PPP) [Time] 46.7 s High 11.7-14.9 [facility] Comment on above: Performed By: #### L 300.3900 ####[facility] [address] [place], [address] Urine Cultureon 10-20-2024 URC Normal [facility] Comment on above: Performed By: #### M 100.2200 ####[facility] [address] [place], [address] Basic Metabolic Profile (BMP )on 10-19-2024 BUN/CRE 18.4 RATIO Normal 10-20 [facility] Comment on above: Performed By: #### L 500.2500, L501.9985, L100.0100, L300.3900 ####[facility] [address] [place], [address] Calcium [Mass/Vol] 8.7 mg/dL Normal 7.6-11.0 [facility] Comment on above: Performed By: #### L 500.2500, L501.9985, L100.0100, L300.3900 ####[facility] [address] [place], [address] Chloride [Moles/Vol] 104 mmol/L Normal 98-108 [facility] Comment on above: Performed By: #### L 500.2500, L501.9985, L100.0100, L300.3900 ####[facility] [address] [place], [address] CO2 [Moles/Vol] 26.9 mmol/L Normal 21.0-32.0 [facility] Comment on above: Performed By: #### L 500.2500, L501.9985, L100.0100, L300.3900 ####[facility] [address] [place], [address] Creatinine [Mass/Vol] 1.13 mg/dL Normal 0.70-1.20 [facility] Comment on above: Performed By: #### L 500.2500, L501.9985, L100.0100, L300.3900 ####[facility] [address] [place], [address] ECRCL 72.53 ml/min Normal 50-250 [facility] Comment on above: Performed By: #### L 500.2500, L501.9985, L100.0100, L300.3900 ####[facility] [address] [place], [address] GAP 6 Normal 5-15 [facility] Comment on above: Performed By: #### L 500.2500, L501.9985, L100.0100, L300.3900 ####[facility] [address] [place], [address] GFR/1.73 sq M.predicted among non-blacks MDRD (S/P/Bld) [Vol rate/Area] 49 mL/min/{1.73_m2} Low >60 [facility] Comment on above: Result Comment: mL/m in/1.73m2 CKD-EPI Creatinine Equation (2020) Performed By: #### L 500.2500, L501.9985, L100.0100, L300.3900 ####[facility] [address] [place], [address] Glucose [Mass/Vol] 86 mg/dL Normal 70-99 [facility] Comment on above: Performed By: #### L 500.2500, L501.9985, L100.0100, L300.3900 ####[facility] [address] [place], [address] Potassium [Moles/Vol] 5.6 mmol/L High 3.3-5.1 [facility] Comment on above: Performed By: #### L 500.2500, L501.9985, L100.0100, L300.3900 ####[facility] [address] [place], [address] Sodium [Moles/Vol] 137 mmol/L Normal 133-145 [facility] Comment on above: Performed By: #### L 500.2500, L501.9985, L100.0100, L300.3900 ####[facility] [address] [place], [address] Urea nitrogen [Mass/Vol] 21 mg/dL High 4-19 [facility] Comment on above: Performed By: #### L 500.2500, L501.9985, L100.0100, L300.3900 ####[facility] [address] [place], [address] Bedside Glucoseon 10-19-2024 FINGERSTICK GLU 124 mg/dL High 74-106 [facility] Comment on above: Result Comment: ALEXIS GEMENT OF PATIENT CARE PER NURSING PROTOCOL Performed By: #### L 501.080 ####[facility] [address] [place], [address] FINGERSTICK GLU 133 mg/dL High 74-106 [facility] Comment on above: Result Comment: ALEXIS GEMENT OF PATIENT CARE PER NURSING PROTOCOL Performed By: #### L 501.080 ####[facility] [address] [place], [address] FINGERSTICK GLU 113 mg/dL High 74-106 [facility] Comment on above: Result Comment: ALEXIS GEMENT OF PATIENT CARE PER NURSING PROTOCOL Performed By: #### L 501.080 ####[facility] [address] [place], [address] FINGERSTICK GLU 93 mg/dL Normal 74-106 [facility] Comment on above: Result Comment: ALEXIS GEMENT OF PATIENT CARE PER NURSING PROTOCOL Performed By: #### L 501.080 ####[facility] [address] [place], [address] Blood cultureOrdered By: Aubrie Sanchez on 10-19-2024 Bacteria identified Cx Nom (Bld) No growth in 5 days. [facility] Bacteria identified Cx Nom (Bld) No growth in 5 days. [facility] CBC W/Diff, Automatedon 08-0 8-2024 Absolute Lymph 1.26 X10 3/uL Normal 0.83-4.51 [facility] Comment on above: Performed By: #### L 500.2500, L501.9985, L100.0100, L300.3900 ####[facility] [address] [place], [address] Absolute Neut 10.7 X10 3/uL High 2.0-7.7 [facility] Comment on above: Performed By: #### L 500.2500, L501.9985, L100.0100, L300.3900 ####[facility] [address] [place], [address] Basophils/100 WBC (Bld) 0.2 % Normal 0-1 [facility] Comment on above: Performed By: #### L 500.2500, L501.9985, L100.0100, L300.3900 ####[facility] [address] [place], [address] Eosinophils/100 WBC (Bld) 0.2 % Normal 0-5 [facility] Comment on above: Performed By: #### L 500.2500, L501.9985, L100.0100, L300.3900 ####[facility] [address] [place], [address] Erythrocyte distribution width (RBC) [Ratio] 16.6 % High 11.6-14.6 [facility] Comment on above: Performed By: #### L 500.2500, L501.9985, L100.0100, L300.3900 ####[facility] [address] [place], [address] Hematocrit (Bld) [Volume fraction] 40.8 % Normal 37-47 [facility] Comment on above: Performed By: #### L 500.2500, L501.9985, L100.0100, L300.3900 ####[facility] [address] [place], [address] Hemoglobin (Bld) [Mass/Vol] 11.4 g/dL Low 12.0-15.0 [facility] Comment on above: Performed By: #### L 500.2500, L501.9985, L100.0100, L300.3900 ####[facility] [address] [place], [address] IG% 0.200 Normal 0.0-0.9 [facility] Comment on above: Result Comment: IG% - Immature Granulocytes (promyelocytes, myelocytes andmetamyelocytes) > 1% indicates that a LEFT SHIFT is Present. Performed By: #### L 500.2500, L501.9985, L100.0100, L300.3900 ####[facility] [address] [place], [address] Lymphocytes/100 WBC (Bld) 9.7 % Low 19-41 [facility] Comment on above: Performed By: #### L 500.2500, L501.9985, L100.0100, L300.3900 ####[facility] [address] [place], [address] MCH (RBC) [Entitic mass] 25.7 pg Low 27.0-32.0 [facility] Comment on above: Performed By: #### L 500.2500, L501.9985, L100.0100, L300.3900 ####[facility] [address] [place], [address] MCHC (RBC) [Mass/Vol] 27.9 g/dL Low 32-36 [facility] Comment on above: Performed By: #### L 500.2500, L501.9985, L100.0100, L300.3900 ####[facility] [address] [place], [address] MCV (RBC) [Entitic vol] 91.9 fL Normal 81-99 [facility] Comment on above: Performed By: #### L 500.2500, L501.9985, L100.0100, L300.3900 ####[facility] [address] [place], [address] Monocytes/100 WBC (Bld) 6.7 % Normal 0-10 [facility] Comment on above: Performed By: #### L 500.2500, L501.9985, L100.0100, L300.3900 ####[facility] [address] [place], [address] Neutrophils/100 WBC (Bld) 83.0 % High 47-70 [facility] Comment on above: Performed By: #### L 500.2500, L501.9985, L100.0100, L300.3900 ####[facility] [address] [place], [address] Nucleated RBC (Bld) [#/Vol] 0 10*3/uL Normal 0-5 [facility] Comment on above: Performed By: #### L 500.2500, L501.9985, L100.0100, L300.3900 ####[facility] [address] [place], [address] Platelet mean volume (Bld) [Entitic vol] 9.7 fL Normal 6.2-12.0 [facility] Comment on above: Performed By: #### L 500.2500, L501.9985, L100.0100, L300.3900 ####[facility] [address] [place], [address] Platelets (Bld) [#/Vol] 194 10*3/uL Normal 150-450 [facility] Comment on above: Performed By: #### L 500.2500, L501.9985, L100.0100, L300.3900 ####[facility] [address] [place], [address] RBC (Bld) [#/Vol] 4.44 10*6/uL Normal 4.2-5.4 [facility] Comment on above: Performed By: #### L 500.2500, L501.9985, L100.0100, L300.3900 ####[facility] [address] [place], [address] RDW SD 56.0 fl High 35.1-43.9 [facility] Comment on above: Performed By: #### L 500.2500, L501.9985, L100.0100, L300.3900 ####[facility] [address] [place], [address] WBC (Bld) [#/Vol] 12.9 10*3/uL High 4.4-11.0 [facility] Comment on above: Performed By: #### L 500.2500, L501.9985, L100.0100, L300.3900 ####[facility] [address] [place], [address] Hemoglobin A1con 10-19-2024 HbA1c (Bld) [Mass fraction] 5.2 % Normal <=5.6 [facility] Comment on above: Result Comment: Norm al < 5.7 % Prediabetic 5.7 - 6.4 % Diabetic >or= 6.5 % Please note range changes. Performed By: #### L 500.2500, L501.9985, L100.0100, L300.3900 ####[facility] [address] [place], [address] Hemoglobin A1c percentageOrd ered By: Nico Garcia on 10-19-2024 HbA1c (Bld) [Mass fraction] 5.2 % <5.7 [facility] Comment on above: Normal < 5.7 % Predi abetic 5.7 - 6.4 % Diabetic >or= 6.5 % Please note range changes. Lactic Acidon 10-19-2024 Lactate [Moles/Vol] mmol/L Normal 0.0-2.0 [facility] Comment on above: Order Comment: Y Performed By: #### L 503.6005 ####[facility] [address] [place], [address] Lactic acid measurementOrder ed By: Haydee Sanchez on 10-19-2024 Lactate [Moles/Vol] mmol/L 0.0-2.0 [facility] Prothrombin Time w/INRon INR Coag (PPP) [Relative time] 5.8 {INR} Invalid Interpretation Code [facility] Comment on above: Result Comment: CRIT ICAL VALUE CALLED TO BETH LR ([facility])10/19/24 0827 Lobo Gleason.RESULTS READ BACK BY SAME. Performed By: #### L 500.2500, L501.9985, L100.0100, L300.3900 ####[facility] [address] [place], [address] PT Coag (PPP) [Time] 53.1 s High 11.7-14.9 [facility] Comment on above: Performed By: #### L 500.2500, L501.9985, L100.0100, L300.3900 ####[facility] [address] [place], [address] INR Coag (PPP) [Relative time] 5.5 {INR} Invalid Interpretation Code [facility] Comment on above: Result Comment: CRIT ICAL VALUE CALLED TO MANPREET POWELL10/19/24 023Maulik Khan.RESULTS READ BACK BY . Performed By: #### L 300.3900 ####[facility] [address] [place], [address] PT Coag (PPP) [Time] 51.0 s High 11.7-14.9 [facility] Comment on above: Performed By: #### L 300.3900 ####[facility] [address] [place], [place], [address] INR Coag (PPP) [Relative time] 5.2 {INR} Invalid Interpretation Code [facility] Comment on above: Result Comment: CRIT ICAL VALUE CALLED TO [ANGI MELTON]10/19/24 0128 Maritza Khan.RESULTS READ BACK BY [SAME]. Performed By: #### L 300.3900 ####[facility] [address] [place], [place], [address] PT Coag (PPP) [Time] 48.8 s High 11.7-14.9 [facility] Comment on above: Performed By: #### L 300.3900 ####[facility] [address] [place], [place], [address] 12 Lead EKGon 10-18-2024 12 Lead EKG Normal [facility] Absolute lymphocyte countOrd ered By: Ryan Yang on 10-18-2024 Lymphocytes Auto (Unsp spec) [#/Vol] 1.06 10*3/uL 0.83-4.51 [facility] Absolute neutrophil countOrd ered By: Ryan Yang on 10-18-2024 Neutrophils (Bld) [#/Vol] 7.3 10*3/uL 2.0-7.7 [facility] Anion gap in Serum or Plasma Ordered By: Ryan Yang on 10-18-2024 Anion gap [Moles/Vol] 5 mmol/L 5-15 [facility] Automated lymphocyte count a s percentage of total leukocytesOrdered By: Ryan Yang on 10-18-2024 Lymphocytes/100 WBC Auto (Unsp spec) 11.8 % Low 19-41 [facility] BUN/creatinine ratioOrdered By: Ryan Yang on 10-18-2024 Urea nitrogen/Creatinine [Mass ratio] 18.2 mg/mg 10-20 [facility] Basophil percentageOrdered B y: Ryan Yang on 10-18-2024 Basophils/100 WBC (Bld) 0.1 % 0-1 [facility] Bedside Glucoseon 10-18-2024 FINGERSTICK GLU 87 mg/dL Normal 74-106 [facility] Comment on above: Result Comment: ALEXIS GEMENT OF PATIENT CARE PER NURSING PROTOCOL Performed By: #### L 501.080 ####[facility] [address] [place], [address] FINGERSTICK GLU 68 mg/dL Low 74-106 [facility] Comment on above: Result Comment: ALEXIS GEMENT OF PATIENT CARE PER NURSING PROTOCOL Performed By: #### L 501.080 ####[facility] [address] [place], [address] FINGERSTICK GLU 73 mg/dL Low 74-106 [facility] Comment on above: Result Comment: ALEXIS GEMENT OF PATIENT CARE PER NURSING PROTOCOL Performed By: #### L 501.080 ####[facility] [address] [place], [address] FINGERSTICK GLU 99 mg/dL Normal 74-106 [facility] Comment on above: Result Comment: ALEXIS GEMENT OF PATIENT CARE PER NURSING PROTOCOL Performed By: #### L 501.080 ####[facility] [address] [place], [address] Bilirubin Test strip Ql (U)O rdered By: Ryan Yang on 10-18-2024 Bilirubin Ql (U) 1 mg/dL High Negative [facility] Comment on above: COLOR OF URINE MAY A FFECT DIPSTICK RESULTS. Bilirubin, totalOrdered By: Ryan Yang on 10-18-2024 Bilirubin [Mass/Vol] 0.30 mg/dL 0.00-1.30 [facility] CBC W/Diff, Automatedon Absolute Lymph 1.06 X10 3/uL Normal 0.83-4.51 [facility] Comment on above: Performed By: #### L 100.0100, L500.4050 ####[facility] [address] [place], [address] Absolute Neut 7.3 X10 3/uL Normal 2.0-7.7 [facility] Comment on above: Performed By: #### L 100.0100, L500.4050 ####[facility] [address] [place], [address] Basophils/100 WBC (Bld) 0.1 % Normal 0-1 [facility] Comment on above: Performed By: #### L 100.0100, L500.4050 ####[facility] [address] [place], [address] Eosinophils/100 WBC (Bld) 0.4 % Normal 0-5 [facility] Comment on above: Performed By: #### L 100.0100, L500.4050 ####[facility] [address] [place], [address] Erythrocyte distribution width (RBC) [Ratio] 16.6 % High 11.6-14.6 [facility] Comment on above: Performed By: #### L 100.0100, L500.4050 ####[facility] [address] [place], [address] Hematocrit (Bld) [Volume fraction] 40.8 % Normal 37-47 [facility] Comment on above: Performed By: #### L 100.0100, L500.4050 ####[facility] [address] [place], [address] Hemoglobin (Bld) [Mass/Vol] 11.8 g/dL Low 12.0-15.0 [facility] Comment on above: Performed By: #### L 100.0100, L500.4050 ####[facility] [address] [place], [address] IG% 0.300 Normal 0.0-0.9 [facility] Comment on above: Result Comment: IG% - Immature Granulocytes (promyelocytes, myelocytes andmetamyelocytes) > 1% indicates that a LEFT SHIFT is Present. Performed By: #### L 100.0100, L500.4050 ####[facility] [address] [place], [address] Lymphocytes/100 WBC (Bld) 11.8 % Low 19-41 [facility] Comment on above: Performed By: #### L 100.0100, L500.4050 ####[facility] [address] [place], [address] MCH (RBC) [Entitic mass] 25.8 pg Low 27.0-32.0 [facility] Comment on above: Performed By: #### L 100.0100, L500.4050 ####[facility] [address] [place], [address] MCHC (RBC) [Mass/Vol] 28.9 g/dL Low 32-36 [facility] Comment on above: Performed By: #### L 100.0100, L500.4050 ####[facility] [address] [place], [address] MCV (RBC) [Entitic vol] 89.3 fL Normal 81-99 [facility] Comment on above: Performed By: #### L 100.0100, L500.4050 ####[facility] [address] [place], [address] Monocytes/100 WBC (Bld) 6.0 % Normal 0-10 [facility] Comment on above: Performed By: #### L 100.0100, L500.4050 ####[facility] [address] [place], [address] Neutrophils/100 WBC (Bld) 81.4 % High 47-70 [facility] Comment on above: Performed By: #### L 100.0100, L500.4050 ####[facility] [address] [place], [address] Nucleated RBC (Bld) [#/Vol] 0 10*3/uL Normal 0-5 [facility] Comment on above: Performed By: #### L 100.0100, L500.4050 ####[facility] [address] [place], [address] Platelet mean volume (Bld) [Entitic vol] 10.3 fL Normal 6.2-12.0 [facility] Comment on above: Performed By: #### L 100.0100, L500.4050 ####[facility] [address] [place], [address] Platelets (Bld) [#/Vol] 190 10*3/uL Normal 150-450 [facility] Comment on above: Performed By: #### L 100.0100, L500.4050 ####[facility] [address] [place], [address] RBC (Bld) [#/Vol] 4.57 10*6/uL Normal 4.2-5.4 [facility] Comment on above: Performed By: #### L 100.0100, L500.4050 ####[facility] [address] [place], [address] RDW SD 54.3 fl High 35.1-43.9 [facility] Comment on above: Performed By: #### L 100.0100, L500.4050 ####[facility] [address] [place], [address] WBC (Bld) [#/Vol] 9.0 10*3/uL Normal 4.4-11.0 [facility] Comment on above: Performed By: #### L 100.0100, L500.4050 ####[facility] [address] [place], [address] Carbon dioxide, total [Moles /volume] in Central venous bloodOrdered By: Ryan Yang on 10-18-2024 CO2 [Moles/Vol] 26.8 mmol/L 21.0-32.0 [facility] Chest 1 View (Portable)on Chest 1 View (Portable) Normal [facility] Chloride assayOrdered By: Jos Yang on 10-18-2024 Chloride [Moles/Vol] 104 mmol/L 98-108 [facility] Comprehensive Metabolic Prof ilon 10-18-2024 Albumin [Mass/Vol] 2.2 g/dL Low 3.4-4.8 [facility] Comment on above: Performed By: #### L 500.4050 ####[facility] [address] [place], [address] Albumin/Globulin [Mass ratio] 0.7 {ratio} Low 0.9-2.4 [facility] Comment on above: Performed By: #### L 500.4050 ####[facility] [address] [place], [address] ALK PHOS 73 U/L Normal 35-104 [facility] Comment on above: Performed By: #### L 500.4050 ####[facility] [address] [place], [address] ALT [Catalytic activity/Vol] 5 U/L Normal <=34 [facility] Comment on above: Result Comment: Hemo lysis present, Results??could be affected.?? Performed By: #### L 500.4050 ####[facility] [address] [place], [address] AST [Catalytic activity/Vol] 33 U/L High <=31 [facility] Comment on above: Result Comment: Hemo lysis present, Results??could be affected.?? Performed By: #### L 500.4050 ####[facility] [address] [place], [address] Bilirubin [Mass/Vol] 0.30 mg/dL Normal 0.00-1.30 [facility] Comment on above: Performed By: #### L 500.4050 ####[facility] [address] [place], [address] BUN/CRE 18.2 RATIO Normal 10-20 [facility] Comment on above: Performed By: #### L 500.4050 ####[facility] [address] [place], [address] Calcium [Mass/Vol] 8.4 mg/dL Normal 7.6-11.0 [facility] Comment on above: Performed By: #### L 500.4050 ####[facility] [address] [place], [address] Chloride [Moles/Vol] 104 mmol/L Normal 98-108 [facility] Comment on above: Performed By: #### L 500.4050 ####[facility] [address] [place], [address] CO2 [Moles/Vol] 26.8 mmol/L Normal 21.0-32.0 [facility] Comment on above: Performed By: #### L 500.4050 ####[facility] [address] [place], [address] Creatinine [Mass/Vol] 1.27 mg/dL High 0.70-1.20 [facility] Comment on above: Performed By: #### L 500.4050 ####[facility] [address] [place], [address] ECRCL 64.53 ml/min Normal 50-250 [facility] Comment on above: Performed By: #### L 500.4050 ####[facility] [address] [place], [address] GAP 5 Normal 5-15 [facility] Comment on above: Performed By: #### L 500.4050 ####[facility] [address] [place], [address] GFR/1.73 sq M.predicted among non-blacks MDRD (S/P/Bld) [Vol rate/Area] 43 mL/min/{1.73_m2} Low >60 [facility] Comment on above: Result Comment: mL/m in/1.73m2 CKD-EPI Creatinine Equation (2020) Performed By: #### L 500.4050 ####[facility] [address] [place], [address] Globulin (S) [Mass/Vol] 3.3 g/dL Normal 2.2-4.2 [facility] Comment on above: Performed By: #### L 500.4050 ####[facility] [address] [place], [address] Glucose [Mass/Vol] 74 mg/dL Normal 70-99 [facility] Comment on above: Performed By: #### L 500.4050 ####[facility] [address] [place], [address] Potassium [Moles/Vol] 7.5 mmol/L Invalid Interpretation Code 3.3-5.1 [facility] Comment on above: Result Comment: Hemo lysis present, Results??could be affected.??Critical Result(s) Called at: 1744 by: SHANDRA ALDRICH??Results read back by same. Performed By: #### L 500.4050 ####[facility] [address] [place], [address] Sodium [Moles/Vol] 136 mmol/L Normal 133-145 [facility] Comment on above: Performed By: #### L 500.4050 ####[facility] [address] [place], [address] T PROT 5.5 g/dL Low 5.9-8.4 [facility] Comment on above: Performed By: #### L 500.4050 ####[facility] [address] [place], [address] Urea nitrogen [Mass/Vol] 23 mg/dL High 4-19 [facility] Comment on above: Performed By: #### L 500.4050 ####[facility] [address] [place], [address] ALB Normal 3.4-4.8 [facility] Comment on above: Result Comment: This specimen has been REJECTED due to Laboratory criteria:Hemolyzed.CARGABRIGHT has been notified of need of recollection.10/18/24 1639 Shandra Lollo Performed By: #### L 100.0100, L500.4050 ####[facility] [address] [place], [address] ALK PHOS Normal 35-104 [facility] Comment on above: Result Comment: This specimen has been REJECTED due to Laboratory criteria:Hemolyzed.CARGABRIGHT has been notified of need of recollection.10/18/24 1639 Shandra Lollo Performed By: #### L 100.0100, L500.4050 ####[facility] [address] [place], [address] ALT Normal <=34 [facility] Comment on above: Result Comment: This specimen has been REJECTED due to Laboratory criteria:Hemolyzed.CARGABRIGHT has been notified of need of recollection.10/18/24 1639 Shandra Lollo Performed By: #### L 100.0100, L500.4050 ####[facility] [address] [place], [address] AST Normal <=31 [facility] Comment on above: Result Comment: This specimen has been REJECTED due to Laboratory criteria:Hemolyzed.CARGABRIGHT has been notified of need of recollection.10/18/24 1639 Shandra Lollo Performed By: #### L 100.0100, L500.4050 ####[facility] [address] [place], [address] BUN Normal 4-19 [facility] Comment on above: Result Comment: This specimen has been REJECTED due to Laboratory criteria:Hemolyzed.CARGABRIGHT has been notified of need of recollection.10/18/24 1639 Shandra Lollo Performed By: #### L 100.0100, L500.4050 ####[facility] [address] [place], [address] BUN/CRE Normal 10-20 [facility] Comment on above: Result Comment: This specimen has been REJECTED due to Laboratory criteria:Hemolyzed.CARGABRIGHT has been notified of need of recollection.10/18/24 1639 Shandra Lollo Performed By: #### L 100.0100, L500.4050 ####[facility] [address] [place], [address] Calcium Normal 7.6-11.0 [facility] Comment on above: Result Comment: This specimen has been REJECTED due to Laboratory criteria:Hemolyzed.CARGABRIGHT has been notified of need of recollection.10/18/24 1639 Shandra Lollo Performed By: #### L 100.0100, L500.4050 ####[facility] [address] [place], [address] CL Normal 98-108 [facility] Comment on above: Result Comment: This specimen has been REJECTED due to Laboratory criteria:Hemolyzed.CARGABRIGHT has been notified of need of recollection.10/18/24 1639 Shandra Lollo Performed By: #### L 100.0100, L500.4050 ####[facility] [address] [place], [address] CO2 Normal 21.0-32.0 [facility] Comment on above: Result Comment: This specimen has been REJECTED due to Laboratory criteria:Hemolyzed.CARGABRIGHT has been notified of need of recollection.10/18/24 1639 Shandra Lollo Performed By: #### L 100.0100, L500.4050 ####[facility] [address] [place], [address] CREAT,SERUM Normal 0.70-1.20 [facility] Comment on above: Result Comment: This specimen has been REJECTED due to Laboratory criteria:Hemolyzed.CARGABRIGHT has been notified of need of recollection.10/18/24 1639 Shandra Lollo Performed By: #### L 100.0100, L500.4050 ####[facility] [address] [place], [address] eGFR Normal >60 [facility] Comment on above: Result Comment: This specimen has been REJECTED due to Laboratory criteria:Hemolyzed.CARGABRIGHT has been notified of need of recollection.10/18/24 1639 Shandra Lollo Performed By: #### L 100.0100, L500.4050 ####[facility] [address] [place], [address] GAP Normal 5-15 [facility] Comment on above: Result Comment: This specimen has been REJECTED due to Laboratory criteria:Hemolyzed.CARGABRIGHT has been notified of need of recollection.10/18/24 1639 Shandra Lollo Performed By: #### L 100.0100, L500.4050 ####[facility] [address] [place], [address] GLU Normal 70-99 [facility] Comment on above: Result Comment: This specimen has been REJECTED due to Laboratory criteria:Hemolyzed.CARGABRIGHT has been notified of need of recollection.10/18/24 1639 Shandra Lollo Performed By: #### L 100.0100, L500.4050 ####[facility] [address] [place], [address] Potassium Normal 3.3-5.1 [facility] Comment on above: Result Comment: This specimen has been REJECTED due to Laboratory criteria:Hemolyzed.CARGABRIGHT has been notified of need of recollection.10/18/24 1639 Shandra Lollo Performed By: #### L 100.0100, L500.4050 ####[facility] [address] [place], [address] T BILI Normal 0.00-1.30 [facility] Comment on above: Result Comment: This specimen has been REJECTED due to Laboratory criteria:Hemolyzed.CARGABRIGHT has been notified of need of recollection.10/18/24 1639 Shandra Lollo Performed By: #### L 100.0100, L500.4050 ####[facility] [address] [place], [address] T PROT Normal 5.9-8.4 [facility] Comment on above: Result Comment: This specimen has been REJECTED due to Laboratory criteria:Hemolyzed.CARGABRIGHT has been notified of need of recollection.10/18/24 1639 Shandra Lollo Performed By: #### L 100.0100, L500.4050 ####[facility] [address] [place], [address] Comprehensive Metabolic Profil Normal 133-145 [facility] Comment on above: Result Comment: This specimen has been REJECTED due to Laboratory criteria:Hemolyzed.CARGABRIGHT has been notified of need of recollection.10/18/24 1639 Shandra Lollo Performed By: #### L 100.0100, L500.4050 ####[facility] [address] [place], [address] Emergency Department Summary on 10-18-2024 Emergency Department Summary Normal [facility] Eosinophil percentageOrdered By: Ryan Yang on 10-18-2024 Eosinophils/100 WBC (Bld) 0.4 % 0-5 [facility] Erythrocyte distribution wid th ratioOrdered By: Ryan Yang on 10-18-2024 Erythrocyte distribution width (RBC) [Ratio] 16.6 % High 11.6-14.6 [facility] Erythrocyte distribution wid th standard deviationOrdered By: Ryan Yang on 10-18-2024 Erythrocyte distribution width (RBC) [Ratio] 54.3 fl High 35.1-43.9 [facility] Glomerular filtration rate ( GFR) estimation/1.73 sq m using serum, plasma, or whole bOrdered By: Ryan Yang on 10-18-2024 GFR/1.73 sq M.predicted among non-blacks MDRD (S/P/Bld) [Vol rate/Area] 43 mL/min/{1.73_m2} Low >60 [facility] Comment on above: mL/min/1.73m2 CKD-EP I Creatinine Equation (2020) [facility] deOrdered By: Ryan Yang on 10-18-2024 Glucose [Mass/Vol] 68 mg/dL Low 74-106 [facility] Comment on above: MANAGEMENT OF PATIEN T CARE PER NURSING PROTOCOL H AND P Exam - Hospital[facility] 10-18-2024 H&P Exam - Hospitalist Normal [facility] Hematocrit Auto (Bld) [Volum e fraction]Ordered By: Ryan Yang on 10-18-2024 Hematocrit (Bld) [Volume fraction] 40.8 % 37-47 [facility] Hemoglobin measurementOrdere d By: Ryan Yang on 10-18-2024 Hemoglobin (Bld) [Mass/Vol] 11.8 g/dL Low 12.0-15.0 [facility] Immature granulocytes/100 WB C Auto (Bld)Ordered By: Ryan Yang on 10-18-2024 Immature granulocytes/100 WBC (Bld) 0.300 % 0.0-0.9 [facility] Comment on above: IG% - Immature Granu locytes (promyelocytes, myelocytes and metamyelocytes) > 1% indicates that a LEFT SHIFT is Present. Ketones Test strip Ql (U)Ord ered By: Ryan Yang on 10-18-2024 Ketones Ql (U) Negative Negative [facility] Laboratory - Chemistry and C hemistry - challengeOrdered By: Ryan Yang on 10-18-2024 AST [Catalytic activity/Vol] 33 U/L High <32 [facility] Comment on above: Hemolysis present, R esults could be affected. MCV (mean corpuscular volume ) determinationOrdered By: Ryan Yang on 10-18-2024 MCV (RBC) [Entitic vol] 89.3 fL 81-99 [facility] Mean corpuscular hemoglobin (MCH) determinationOrdered By: Ryan Yang on 10-18-2024 MCH (RBC) [Entitic mass] 25.8 pg Low 27.0-32.0 [facility] Mean corpuscular hemoglobin concentration (MCHC) determinationOrdered By: Ryan Yang on 10-18-2024 MCHC (RBC) [Mass/Vol] 28.9 g/dL Low 32-36 [facility] Mean platelet volume determi nationOrdered By: Ryan Yang on 10-18-2024 Platelet mean volume (Bld) [Entitic vol] 10.3 fL 6.2-12.0 [facility] Microscopic analysis of urin e for red blood cells (RBC)Ordered By: Ryan Yang on 10-18-2024 Microscopic analysis of urine for red blood cells (RBC) 0-5 SEEN /hpf 0-5 [facility] Monocyte percentageOrdered B y: Ryan Yang on 10-18-2024 Monocytes/100 WBC (Bld) 6.0 % 0-10 [facility] Mucus LM Ql (Urine sed)Order ed By: Ryan Yang on 10-18-2024 Mucus Ql (Urine sed) 0 SEEN /hpf [facility] Neutrophil percentageOrdered By: Ryan Yang on 10-18-2024 Neutrophils/100 WBC (Bld) 81.4 % High 47-70 [facility] Nitrite Test strip Ql (U)Ord ered By: Ryan Yang on 10-18-2024 Nitrite Ql (U) Positive High Negative [facility] Nucleated red blood cell per centageOrdered By: Ryan Yang on 10-18-2024 Nucleated RBC/100 WBC (Bld) [Ratio] 0 % 0- [facility] Platelet countOrdered By: Jos Yang on 10-18-2024 Platelets (Bld) [#/Vol] 190 10*3/uL 150-450 [facility] Potassiumon 10-18-2024 Potassium [Moles/Vol] 5.6 mmol/L High 3.3-5.1 [facility] Comment on above: Performed By: #### L 501.5600 ####[facility] [address] [place], [place], [address] Potassium measurement (mass/ volume)Ordered By: Ryan Yang on 10-18-2024 Potassium (Unsp spec) [Mass/Vol] 5.6 mmol/L High 3.3-5.1 [facility] Protein Test strip Ql (U)Ord ered By: Ryan Yang on 10-18-2024 Protein Ql (U) 30 mg/dl High Negative [facility] RBC Auto (Bld) [#/Vol]Ordere d By: Ryan Yang on 10-18-2024 RBC (Bld) [#/Vol] 4.57 10*6/uL 4.2-5.4 [facility] Serum creatinine measurement (mass/volume)Ordered By: Ryan Yang on 10-18-2024 Creatinine [Mass/Vol] 1.27 mg/dL High 0.70-1.20 [facility] Serum globulin measurementOr dered By: Ryan Yang on 10-18-2024 Globulin (S) [Mass/Vol] 3.3 g/dL 2.2-4.2 [facility] Serum glucose measurement (m ass/volume)Ordered By: Ryan Yang on 10-18-2024 Glucose [Mass/Vol] 74 mg/dL 70-99 [facility] Serum or plasma alanine aguirre otransferase (ALT) measurementOrdered By: Ryan Yang on 10-18-2024 ALT [Catalytic activity/Vol] 5 U/L <35 [facility] Comment on above: Hemolysis present, R esults could be affected. Serum or plasma albumin kezia urement (mass/volume)Ordered By: Ryan Yang on 10-18-2024 Albumin [Mass/Vol] 2.2 g/dL Low 3.4-4.8 [facility] Serum or plasma albumin/glob ulin mass ratioOrdered By: Ryan Yang on 10-18-2024 Albumin/Globulin [Mass ratio] 0.7 {ratio} Low 0.9-2.4 [facility] Serum or plasma alkaline dawood sphatase measurementOrdered By: Ryan Yang on 10-18-2024 ALP [Catalytic activity/Vol] 73 U/L 35-104 [facility] Serum or plasma calcium kezia urement (mass/volume)Ordered By: Ryan Yang on 10-18-2024 Calcium [Mass/Vol] 8.4 mg/dL 7.6-11.0 [facility] Serum or plasma urea nitroge n measurement (mass/volume)Ordered By: Ryan Yang on 10-18-2024 Urea nitrogen [Mass/Vol] 23 mg/dL High 4-19 [facility] Sodium levelOrdered By: Ryan Yang on 10-18-2024 Sodium [Moles/Vol] 136 mmol/L 133-145 [facility] Squamous epithelial cells de tection in urine sediment by light microscopyOrdered By: Ryan Yang on 10-18-2024 Epithelial cells.squamous LM Ql (Urine sed) 10-25 SEEN /hpf 5-10 [facility] Total proteinOrdered By: Eulalio Yang on 10-18-2024 Protein [Mass/Vol] 5.5 g/dL Low 5.9-8.4 [facility] Urinalysis, Completeon 10-18 BACTERIA 1+ /hpf Normal None Seen [facility] Comment on above: Order Comment: CLEAN CATCH Performed By: #### L 400.0001 ####[facility] [address] [facility] [address] EPI,SQUAMOUS 10-25 SEEN Normal 5-10 [facility] Comment on above: Order Comment: CLEAN CATCH Performed By: #### L 400.0001 ####[facility] [address] [place], [address] RBC 0-5 SEEN Normal 0-5 [facility] Comment on above: Order Comment: CLEAN CATCH Performed By: #### L 400.0001 ####[facility] [address] [facility] [address] WBC 50-100 SEEN Normal 0-5 [facility] Comment on above: Order Comment: CLEAN CATCH Performed By: #### L 400.0001 ####[facility] [address] [place], [address] Mucus Ql (Urine sed) 0 SEEN Normal [facility] Comment on above: Order Comment: CLEAN CATCH Performed By: #### L 400.0001 ####[facility] [address] [place], [address] Urine clarityOrdered By: Eulalio Yang on 10-18-2024 Clarity (U) Cloudy Clear [facility] Urine color determinationOrd ered By: Ryan Yang on 10-18-2024 Color (U) Yellow Yellow [facility] Urine cultureOrdered By: Eulalio Yang on 10-18-2024 Bacteria identified Cx Nom (U) Presumptive E. coli Abnormal [facility] Urine glucose detectionOrder ed By: Ryan Yang on 10-18-2024 Glucose Ql (U) Normal mg/dl Normal [facility] Urine leukocyte esterase det ection by dipstickOrdered By: Ryan Yang on 10-18-2024 Leukocyte esterase Test strip Ql (U) 500 /ul High Negative [facility] Urine pHOrdered By: Ryan cannno on 10-18-2024 pH (U) 6.0 [pH] 5.0 - 8.0 [facility] Urine sediment bacteria coun t by microscopy (number/high power field)Ordered By: Ryan Yang on 10-18-2024 Bacteria LM.HPF (Urine sed) [#/Area] 1 /[HPF] None Seen [facility] Urine specific gravity measu rementOrdered By: Ryan Yang on 10-18-2024 Specific gravity (U) [Rel density] 1.020 1.002-1.030 [facility] Urine urobilinogen measureme ntOrdered By: Ryan Yang on 10-18-2024 Urobilinogen Ql (U) Normal mg/dl Normal [facility] White blood cell (WBC) count Ordered By: Ryan Yang on 10-18-2024 WBC (Bld) [#/Vol] 9.0 10*3/uL 4.4-11.0 [facility] White blood cell countOrdere d By: Ryan Yang on 10-18-2024 White blood cell count 50-100 SEEN /hpf 0-5 [facility] Anion gap in Serum or Plasma Ordered By: Savanna Suero on 06-19-2024 Anion gap [Moles/Vol] 10 mmol/L 5-15 [facility] BUN/creatinine ratioOrdered By: Savanna Suero on 06-19-2024 Urea nitrogen/Creatinine [Mass ratio] 36.4 mg/mg High 10-20 [facility] Basic Metabolic Profile (BMP )on 06-19-2024 BUN/CRE 36.4 RATIO High 10-20 [facility] Comment on above: Order Comment: REDRA W. PREVIOUS SPECIMEN REJECTED DUE TOHEMOLYSIS. 06/19/24819 Performed By: #### L 500.2500, L501.5200 ####[facility] [address] [place], [address] Calcium [Mass/Vol] 9.0 mg/dL Normal 7.6-11.0 [facility] Comment on above: Order Comment: REDRA W. PREVIOUS SPECIMEN REJECTED DUE TOHEMOLYSIS. 06/19/24819 Performed By: #### L 500.2500, L501.5200 ####[facility] [address] [place], [address] Chloride [Moles/Vol] 99 mmol/L Normal 98-108 [facility] Comment on above: Order Comment: REDRA W. PREVIOUS SPECIMEN REJECTED DUE TOHEMOLYSIS. 06/19/24819 Performed By: #### L 500.2500, L501.5200 ####[facility] [address] [place], [address] CO2 [Moles/Vol] 31.7 mmol/L Normal 21.0-32.0 [facility] Comment on above: Order Comment: REDRA W. PREVIOUS SPECIMEN REJECTED DUE TOHEMOLYSIS. 06/19/24819 Performed By: #### L 500.2500, L501.5200 ####[facility] [address] [place], [address] Creatinine [Mass/Vol] 1.28 mg/dL High 0.70-1.20 [facility] Comment on above: Order Comment: REDRA W. PREVIOUS SPECIMEN REJECTED DUE TOHEMOLYSIS. 06/19/24819 Performed By: #### L 500.2500, L501.5200 ####[facility] [address] [place], [address] ECRCL 58.45 ml/min Normal 50-250 [facility] Comment on above: Order Comment: REDRA W. PREVIOUS SPECIMEN REJECTED DUE TOHEMOLYSIS. 06/19/24819 Performed By: #### L 500.2500, L501.5200 ####[facility] [address] [place], [address] GAP 10 Normal 5-15 [facility] Comment on above: Order Comment: REDRA W. PREVIOUS SPECIMEN REJECTED DUE TOHEMOLYSIS. 06/19/24819 Performed By: #### L 500.2500, L501.5200 ####[facility] [address] [place], [address] GFR/1.73 sq M.predicted among non-blacks MDRD (S/P/Bld) [Vol rate/Area] 42 mL/min/{1.73_m2} Low >60 [facility] Comment on above: Order Comment: REDRA W. PREVIOUS SPECIMEN REJECTED DUE TOHEMOLYSIS. 06/19/24819 Result Comment: mL/m in/1.73m2 CKD-EPI Creatinine Equation (2020) Performed By: #### L 500.2500, L501.5200 ####[facility] [address] [place], [address] Glucose [Mass/Vol] 189 mg/dL High 70-99 [facility] Comment on above: Order Comment: REDRA W. PREVIOUS SPECIMEN REJECTED DUE TOHEMOLYSIS. 06/19/24819 Performed By: #### L 500.2500, L501.5200 ####[facility] [address] [place], [address] Potassium [Moles/Vol] 3.5 mmol/L Normal 3.3-5.1 [facility] Comment on above: Order Comment: REDRA W. PREVIOUS SPECIMEN REJECTED DUE TOHEMOLYSIS. 06/19/24819 Result Comment: Hemo lysis present, Results??could be affected.?? Performed By: #### L 500.2500, L501.5200 ####[facility] [address] [place], [address] Sodium [Moles/Vol] 141 mmol/L Normal 133-145 [facility] Comment on above: Order Comment: REDRA W. PREVIOUS SPECIMEN REJECTED DUE TOHEMOLYSIS. 06/19/24819 Performed By: #### L 500.2500, L501.5200 ####[facility] [address] [place], [address] Urea nitrogen [Mass/Vol] 47 mg/dL High 4-19 [facility] Comment on above: Order Comment: REDRA W. PREVIOUS SPECIMEN REJECTED DUE TOHEMOLYSIS. 06/19/24819 Performed By: #### L 500.2500, L501.5200 ####[facility] [address] [place], [address] BUN Normal 4-19 [facility] Comment on above: Result Comment: This specimen has been REJECTED due to Laboratory criteria:Hemolyzed.LAB has been notified of need of recollection.06/19/24818 Siomara Clapper Performed By: #### L 100.0500, L500.2500, L501.5200 ####[facility] [address] [place], [address] BUN/CRE Normal 10-20 [facility] Comment on above: Result Comment: This specimen has been REJECTED due to Laboratory criteria:Hemolyzed.LAB has been notified of need of recollection.06/19/24818 Siomara Clapper Performed By: #### L 100.0500, L500.2500, L501.5200 ####[facility] [address] [place], [address] Calcium Normal 7.6-11.0 [facility] Comment on above: Result Comment: This specimen has been REJECTED due to Laboratory criteria:Hemolyzed.LAB has been notified of need of recollection.06/19/24818 Siomara Clapper Performed By: #### L 100.0500, L500.2500, L501.5200 ####[place] [facility] [address] [place], [address] CL Normal 98-108 [facility] Comment on above: Result Comment: This specimen has been REJECTED due to Laboratory criteria:Hemolyzed.LAB has been notified of need of recollection.06/19/24818 Siomara Clapper Performed By: #### L 100.0500, L500.2500, L501.5200 ####[facility] [address] [place], [address] CO2 Normal 21.0-32.0 [facility] Comment on above: Result Comment: This specimen has been REJECTED due to Laboratory criteria:Hemolyzed.LAB has been notified of need of recollection.06/19/24818 Siomara Clapper Performed By: #### L 100.0500, L500.2500, L501.5200 ####[facility] [address] [place], [address] CREAT,SERUM Normal 0.70-1.20 [facility] Comment on above: Result Comment: This specimen has been REJECTED due to Laboratory criteria:Hemolyzed.LAB has been notified of need of recollection.06/19/24818 Siomara Clapper Performed By: #### L 100.0500, L500.2500, L501.5200 ####[facility] [address] [place], [address] eGFR Normal >60 [facility] Comment on above: Result Comment: This specimen has been REJECTED due to Laboratory criteria:Hemolyzed.LAB has been notified of need of recollection.06/19/24818 Siomara Clapper Performed By: #### L 100.0500, L500.2500, L501.5200 ####[facility] [address] [place], [address] GAP Normal 5-15 [facility] Comment on above: Result Comment: This specimen has been REJECTED due to Laboratory criteria:Hemolyzed.LAB has been notified of need of recollection.06/19/24818 Siomara Clapper Performed By: #### L 100.0500, L500.2500, L501.5200 ####[facility] [address] [place], [address] GLU Normal 70-99 [facility] Comment on above: Result Comment: This specimen has been REJECTED due to Laboratory criteria:Hemolyzed.LAB has been notified of need of recollection.06/19/24818 Siomara Clapper Performed By: #### L 100.0500, L500.2500, L501.5200 ####[facility] [address] [place], [address] Potassium Normal 3.3-5.1 [facility] Comment on above: Result Comment: This specimen has been REJECTED due to Laboratory criteria:Hemolyzed.LAB has been notified of need of recollection.06/19/24818 Siomara Clapper Performed By: #### L 100.0500, L500.2500, L501.5200 ####[facility] [address] [place], [address] Basic Metabolic Profile (BMP) Normal 133-145 [facility] Comment on above: Result Comment: This specimen has been REJECTED due to Laboratory criteria:Hemolyzed.LAB has been notified of need of recollection.06/19/24818 Siomara Clapper Performed By: #### L 100.0500, L500.2500, L501.5200 ####[facility] [address] [place], [address] Bedside Glucoseon 06-19-2024 FINGERSTICK GLU 267 mg/dL High 74-106 [facility] Comment on above: Result Comment: ALEXIS BAE OF PATIENT CARE PER NURSING PROTOCOL Performed By: #### L 501.080 ####[facility] [address] [place], [address] FINGERSTICK GLU 233 mg/dL High 74-106 [facility] Comment on above: Result Comment: ALEXIS GEMENT OF PATIENT CARE PER NURSING PROTOCOL Performed By: #### L 501.080 ####[facility] [address] [place], [address] FINGERSTICK GLU 176 mg/dL High 74-106 [facility] Comment on above: Result Comment: ALEXIS GEMENT OF PATIENT CARE PER NURSING PROTOCOL Performed By: #### L 501.080 ####[facility] [address] [place], [address] CBC-Complete Blood Cnt No Di ffon 06-19-2024 Erythrocyte distribution width (RBC) [Ratio] 14.3 % Normal 11.6-14.6 [facility] Comment on above: Performed By: #### L 100.0500, L500.2500, L501.5200 ####[facility] [address] [place], [address] Hematocrit (Bld) [Volume fraction] 51.3 % High 37-47 [facility] Comment on above: Performed By: #### L 100.0500, L500.2500, L501.5200 ####[facility] [address] [place], [address] Hemoglobin (Bld) [Mass/Vol] 16.0 g/dL High 12.0-15.0 [facility] Comment on above: Performed By: #### L 100.0500, L500.2500, L501.5200 ####[facility] [address] [place], [address] MCH (RBC) [Entitic mass] 28.0 pg Normal 27.0-32.0 [facility] Comment on above: Performed By: #### L 100.0500, L500.2500, L501.5200 ####[facility] [address] [place], [address] MCHC (RBC) [Mass/Vol] 31.2 g/dL Low 32-36 [facility] Comment on above: Performed By: #### L 100.0500, L500.2500, L501.5200 ####[facility] [address] [place], [address] MCV (RBC) [Entitic vol] 89.8 fL Normal 81-99 [facility] Comment on above: Performed By: #### L 100.0500, L500.2500, L501.5200 ####[facility] [address] [place], [address] Platelet mean volume (Bld) [Entitic vol] 9.3 fL Normal 6.2-12.0 [facility] Comment on above: Performed By: #### L 100.0500, L500.2500, L501.5200 ####[facility] [address] [place], [address] Platelets (Bld) [#/Vol] 145 10*3/uL Low 150-450 [facility] Comment on above: Performed By: #### L 100.0500, L500.2500, L501.5200 ####[facility] [address] [place], [address] RBC (Bld) [#/Vol] 5.71 10*6/uL High 4.2-5.4 [facility] Comment on above: Performed By: #### L 100.0500, L500.2500, L501.5200 ####[facility] [address] [place], [address] RDW SD 47.0 fl High 35.1-43.9 [facility] Comment on above: Performed By: #### L 100.0500, L500.2500, L501.5200 ####[facility] [address] [place], [address] WBC (Bld) [#/Vol] 9.7 10*3/uL Normal 4.4-11.0 [facility] Comment on above: Performed By: #### L 100.0500, L500.2500, L501.5200 ####[facility] [address] [place], [address] Carbon dioxide, total [Moles /volume] in Central venous bloodOrdered By: Savanna Suero on 06-19-2024 CO2 [Moles/Vol] 31.7 mmol/L 21.0-32.0 [facility] Chloride assayOrdered By: Amauri Suero on 06-19-2024 Chloride [Moles/Vol] 99 mmol/L 98-108 [facility] Culture, Blood (WB)on 2024 CUB COLLECTION SITE: [facility]y Ngo [facility] Blood cultures x2, from two different sites No growth in 5 days. Normal [facility] Comment on above: Performed By: #### L 501.4021, L503.6005, M200.1000, L503.7505 ####[facility] [address] [place], [place], [address] Discharge Instructionon 04-0 Discharge Instruction Normal [facility] Erythrocyte distribution wid th (RBC) [Ratio]Ordered By: Savanna Suero on 06-19-2024 Erythrocyte distribution width (RBC) [Entitic vol] 47.0 fL High 35.1-43.9 [facility] Erythrocyte distribution wid th ratioOrdered By: Savanna Suero on 06-19-2024 Erythrocyte distribution width (RBC) [Ratio] 14.3 % 11.6-14.6 [facility] Estimation of creatinine alex aranceOrdered By: Savanna Suero on 06-19-2024 Estimated Creatinine Clearance Calc 58.45 ml/min 50-250 [facility] GFR/1.73 sq M.predicted bradford g non-blacks MDRD (S/P/Bld) [Vol rate/Area]Ordered By: Savanna Suero on 06-19-2024 Estimated GFR (MDRD) Non-Af Amer 42 Low >60 [facility] Comment on above: mL/min/1.73m2 CKD-EP I Creatinine Equation (2020) [facility] at [facility] deOrdered By: Savanna Suero on 06-19-2024 Bedside Glucose (Misc Panel) 267 mg/dL High 74-106 [facility] Comment on above: MANAGEMENT OF PATIEN T CARE PER NURSING PROTOCOL Hematocrit Auto (Bld) [Volum e fraction]Ordered By: Savanna Suero on 06-19-2024 Hematocrit (Bld) [Volume fraction] 51.3 % High 37-47 [facility] Hemoglobin measurementOrdere d By: Savanna Suero on 06-19-2024 Hemoglobin (Bld) [Mass/Vol] 16.0 g/dL High 12.0-15.0 [facility] MCV (mean corpuscular volume ) determinationOrdered By: Savanna Suero on 06-19-2024 MCV (RBC) [Entitic vol] 89.8 fL 81-99 [facility] Magnesiumon 06-19-2024 Magnesium [Mass/Vol] 1.7 mg/dL Normal 1.5-2.2 [facility] Comment on above: Order Comment: TROY W. PREVIOUS SPECIMEN REJECTED DUE TOHEMOLYSIS. 06/19/24819 Performed By: #### L 500.2500, L501.5200 ####[facility] [address] [place], [address] Magnesium [Mass/Vol] 2.0 mg/dL Normal 1.5-2.2 [facility] Comment on above: Order Comment: This specimen has been REJECTED due to Laboratory criteria:Hemolyzed.LAB has been notified of need of recollection.06/19/24818 Siomara Costaer Result Comment: This specimen has been REJECTED due to Laboratory criteria:Hemolyzed.LAB has been notified of need of recollection.06/19/24818 Siomara Clahallieer Performed By: #### L 100.0500, L500.2500, L501.5200 ####[facility] [address] [place], [address] Magnesium (Unsp spec) [Mass/ Vol]Ordered By: Savanna Suero on 06-19-2024 Magnesium [Mass/Vol] 1.7 mg/dL 1.5-2.2 [facility] Mean corpuscular hemoglobin (MCH) determinationOrdered By: Savanna Suero on 06-19-2024 MCH (RBC) [Entitic mass] 28.0 pg 27.0-32.0 [facility] Mean corpuscular hemoglobin concentration (MCHC) determinationOrdered By: Savanna Suero on 06-19-2024 MCHC (RBC) [Mass/Vol] 31.2 g/dL Low 32-36 [facility] Mean platelet volume determi nationOrdered By: Savanna Suero on 06-19-2024 Platelet mean volume (Bld) [Entitic vol] 9.3 fL 6.2-12.0 [facility] Platelet countOrdered By: Amauri Suero on 06-19-2024 Platelets (Bld) [#/Vol] 145 10*3/uL Low 150-450 [facility] Potassium (Unsp spec) [Mass/ Vol]Ordered By: Savanna Suero on 06-19-2024 Potassium [Moles/Vol] 3.5 mmol/L 3.3-5.1 [facility] Comment on above: Hemolysis present, R esults could be affected. RBC Auto (Bld) [#/Vol]Ordere d By: Savanna Suero on 06-19-2024 RBC (Bld) [#/Vol] 5.71 10*6/uL High 4.2-5.4 [facility] Serum creatinine measurement (mass/volume)Ordered By: Savanna Suero on 06-19-2024 Creatinine [Mass/Vol] 1.28 mg/dL High 0.70-1.20 [facility] Serum glucose measurement (m ass/volume)Ordered By: Savanna Suero on 06-19-2024 Glucose [Mass/Vol] 189 mg/dL High 70-99 [facility] Serum or plasma calcium kezia urement (mass/volume)Ordered By: Savanna Suero on 06-19-2024 Calcium [Mass/Vol] 9.0 mg/dL 7.6-11.0 [facility] Serum or plasma urea nitroge n measurement (mass/volume)Ordered By: Savanna Suero on 06-19-2024 Urea nitrogen [Mass/Vol] 47 mg/dL High 4-19 [facility] Sodium levelOrdered By: Memo Suero on 06-19-2024 Sodium [Moles/Vol] 141 mmol/L 133-145 [facility] White blood cell (WBC) count Ordered By: Savanna Suero on 06-19-2024 WBC (Bld) [#/Vol] 9.7 10*3/uL 4.4-11.0 [facility] 12 Lead EKGon 06-18-2024 12 Lead EKG Normal [facility] Absolute neutrophil countOrd ered By: Azam Montgomery on 06-18-2024 Neutrophils (Bld) [#/Vol] 6.7 10*3/uL 2.0-7.7 [facility] Basic Metabolic Profile (BMP )on 06-18-2024 BUN/CRE 32.9 RATIO High 10-20 [facility] Comment on above: Performed By: #### L 500.2500, L100.0100 ####[facility] [address] [place], [address] Calcium [Mass/Vol] 8.6 mg/dL Normal 7.6-11.0 [facility] Comment on above: Performed By: #### L 500.2500, L100.0100 ####[facility] [address] [place], [address] Chloride [Moles/Vol] 100 mmol/L Normal 98-108 [facility] Comment on above: Performed By: #### L 500.2500, L100.0100 ####[facility] [address] [place], [address] CO2 [Moles/Vol] 31.0 mmol/L Normal 21.0-32.0 [facility] Comment on above: Performed By: #### L 500.2500, L100.0100 ####[facility] [address] [place], [address] Creatinine [Mass/Vol] 1.47 mg/dL High 0.70-1.20 [facility] Comment on above: Performed By: #### L 500.2500, L100.0100 ####[facility] [address] [place], [address] ECRCL 51.63 ml/min Normal 50-250 [facility] Comment on above: Performed By: #### L 500.2500, L100.0100 ####[facility] [address] [place], [address] GAP 10 Normal 5-15 [facility] Comment on above: Performed By: #### L 500.2500, L100.0100 ####[facility] [address] [place], [address] GFR/1.73 sq M.predicted among non-blacks MDRD (S/P/Bld) [Vol rate/Area] 36 mL/min/{1.73_m2} Low >60 [facility] Comment on above: Result Comment: mL/m in/1.73m2 CKD-EPI Creatinine Equation (2020) Performed By: #### L 500.2500, L100.0100 ####[facility] [address] [place], [address] Glucose [Mass/Vol] 193 mg/dL High 70-99 [facility] Comment on above: Performed By: #### L 500.2500, L100.0100 ####[facility] [address] [place], [address] Potassium [Moles/Vol] 3.4 mmol/L Normal 3.3-5.1 [facility] Comment on above: Result Comment: Hemo lysis present, Results??could be affected.?? Performed By: #### L 500.2500, L100.0100 ####[facility] [address] [place], [address] Sodium [Moles/Vol] 141 mmol/L Normal 133-145 [facility] Comment on above: Performed By: #### L 500.2500, L100.0100 ####[facility] [address] [place], [address] Urea nitrogen [Mass/Vol] 48 mg/dL High 4-19 [facility] Comment on above: Performed By: #### L 500.2500, L100.0100 ####[facility] [address] [place], [address] Basophil percentageOrdered B y: Azam Ulises on 06-18-2024 Basophils/100 WBC (Bld) 0.1 % 0-1 [facility] Bedside Glucoseon 06-18-2024 FINGERSTICK GLU 229 mg/dL High 74-106 [facility] Comment on above: Result Comment: ALEXIS GEMENT OF PATIENT CARE PER NURSING PROTOCOL Performed By: #### L 501.080 ####[facility] [address] [place], [address] FINGERSTICK GLU 215 mg/dL High 74-106 [facility] Comment on above: Result Comment: ALEXIS GEMENT OF PATIENT CARE PER NURSING PROTOCOL Performed By: #### L 501.080 ####[facility] [address] [place], [address] FINGERSTICK GLU 205 mg/dL High 74-106 [facility] Comment on above: Result Comment: ALEXIS GEMENT OF PATIENT CARE PER NURSING PROTOCOL Performed By: #### L 501.080 ####[facility] [address] [place], [address] FINGERSTICK GLU 179 mg/dL High 74-106 [facility] Comment on above: Result Comment: ALEXIS GEMENT OF PATIENT CARE PER NURSING PROTOCOL Performed By: #### L 501.080 ####[facility] [address] [place], [address] CBC W/Diff, Automatedon 04-0 Absolute Lymph 1.36 X10 3/uL Normal 0.83-4.51 [facility] Comment on above: Performed By: #### L 500.2500, L100.0100 ####[facility] [address] [place], [address] Absolute Neut 6.7 X10 3/uL Normal 2.0-7.7 [facility] Comment on above: Performed By: #### L 500.2500, L100.0100 ####[facility] [address] [place], [address] Basophils/100 WBC (Bld) 0.1 % Normal 0-1 [facility] Comment on above: Performed By: #### L 500.2500, L100.0100 ####[facility] [address] [place], [address] Eosinophils/100 WBC (Bld) 0.0 % Normal 0-5 [facility] Comment on above: Performed By: #### L 500.2500, L100.0100 ####[facility] [address] [place], [address] Erythrocyte distribution width (RBC) [Ratio] 14.5 % Normal 11.6-14.6 [facility] Comment on above: Performed By: #### L 500.2500, L100.0100 ####[facility] [address] [place], [address] Hematocrit (Bld) [Volume fraction] 48.2 % High 37-47 [facility] Comment on above: Performed By: #### L 500.2500, L100.0100 ####[facility] [address] [place], [address] Hemoglobin (Bld) [Mass/Vol] 14.8 g/dL Normal 12.0-15.0 [facility] Comment on above: Performed By: #### L 500.2500, L100.0100 ####[facility] [address] [place], [address] IG% 0.400 Normal 0.0-0.9 [facility] Comment on above: Result Comment: IG% - Immature Granulocytes (promyelocytes, myelocytes andmetamyelocytes) > 1% indicates that a LEFT SHIFT is Present. Performed By: #### L 500.2500, L100.0100 ####[facility] [address] [place], [address] Lymphocytes/100 WBC (Bld) 16.2 % Low 19-41 [facility] Comment on above: Performed By: #### L 500.2500, L100.0100 ####[facility] [address] [place], [address] MCH (RBC) [Entitic mass] 27.7 pg Normal 27.0-32.0 [facility] Comment on above: Performed By: #### L 500.2500, L100.0100 ####[facility] [address] [place], [address] MCHC (RBC) [Mass/Vol] 30.7 g/dL Low 32-36 [facility] Comment on above: Performed By: #### L 500.2500, L100.0100 ####[facility] [address] [place], [address] MCV (RBC) [Entitic vol] 90.1 fL Normal 81-99 [facility] Comment on above: Performed By: #### L 500.2500, L100.0100 ####[facility] [address] [place], [address] Monocytes/100 WBC (Bld) 3.9 % Normal 0-10 [facility] Comment on above: Performed By: #### L 500.2500, L100.0100 ####[facility] [address] [place], [address] Neutrophils/100 WBC (Bld) 79.4 % High 47-70 [facility] Comment on above: Performed By: #### L 500.2500, L100.0100 ####[facility] [address] [place], [address] Nucleated RBC (Bld) [#/Vol] 0 10*3/uL Normal 0-5 [facility] Comment on above: Performed By: #### L 500.2500, L100.0100 ####[facility] [address] [place], [address] Platelet mean volume (Bld) [Entitic vol] 9.7 fL Normal 6.2-12.0 [facility] Comment on above: Performed By: #### L 500.2500, L100.0100 ####[facility] [address] [place], [address] Platelets (Bld) [#/Vol] 158 10*3/uL Normal 150-450 [facility] Comment on above: Performed By: #### L 500.2500, L100.0100 ####[facility] [address] [place], [address] RBC (Bld) [#/Vol] 5.35 10*6/uL Normal 4.2-5.4 [facility] Comment on above: Performed By: #### L 500.2500, L100.0100 ####[facility] [address] [place], [address] RDW SD 47.8 fl High 35.1-43.9 [facility] Comment on above: Performed By: #### L 500.2500, L100.0100 ####[facility] [address] [place], [address] WBC (Bld) [#/Vol] 8.4 10*3/uL Normal 4.4-11.0 [facility] Comment on above: Performed By: #### L 500.2500, L100.0100 ####[facility] [address] [place], [address] Electrocardiogram reportOrde red By: Shun Luciano on 06-18-2024 EKG study [facility] [address] [place] [address] 12 Lead EKG 06/18/24 0728 MR#: [id number] Acct: [id number] Name: TOD HUNT Rep #:[id number] : 1945 78 From: Shun Luciano MD Attending Dr: Dr. Savanna Suero MD Status: ADM IN Ordering Dr: Estela Staton MD Date: 06/18/24 Location: [facility] Sex: F C Admitted: 06/13/24 Test Reason [...] COMPARISON REQUIRED DATA IS UNCONFIRMED Confirmed by MUSTAPHA ROSS, SHUN ([id number]), associate editor SHRUTI QUINTERO ([id number]) on 06/18/2024 2:02:00 PM Referred By: ULISES Confirmed By: SHUN LUCIANO MD 06/18/24 1402 Date _ Shun Luciano MD CC: Dr. Estela Staton MD; Dr. Socrates Spangler MD; Dr. Savanna Suero MD ~ Signed [facility] Work Phone: EKG study [facility] Services [address] [place] [address] 12 Lead EKG 06/17/24 2322 MR#: [id number] Acct: [id number] Name: TOD HUNT Rep #:[id number] : 1945 78 From: Shun Luciano MD Attending Dr: Dr. Savanna Suero MD Status: ADM IN Ordering Dr: Estela Staton MD Date: 06/17/24 Location: [facility] Sex: F C Admitted: 06/13/24 Test Reason [...] 19:57, Significant changes have occurred Confirmed by MUSTAPHA ROSS, SHUN ([id number]), associate editor BETHEL PALMA ([id number]) on 06/18/2024 9:17:53 AM Referred By: BRIONNA Confirmed By: SHUN LUCIANO MD 06/18/24 0917 Date _ Shun Luciano MD CC: Dr. Estela Staton MD; Dr. Socrates Spangler MD; Dr. Savanna Suero MD ~ Signed [facility] Work Phone: Eosinophil percentageOrdered By: Azam Montgomery on 06-18-2024 Eosinophils/100 WBC (Bld) 0.0 % 0-5 [facility] Immature granulocytes/100 WB C Auto (Bld)Ordered By: Azam Montgomery on 06-18-2024 Immature granulocytes/100 WBC (Bld) 0.400 % 0.0-0.9 [facility] Comment on above: IG% - Immature Granu locytes (promyelocytes, myelocytes and metamyelocytes) > 1% indicates that a LEFT SHIFT is Present. Lymphocytes Auto (Unsp spec) [#/Vol]Ordered By: Azam Montgomery on 06-18-2024 Lymphocytes (Bld) [#/Vol] 1.36 10*3/uL 0.83-4.51 [facility] Lymphocytes/100 WBC Auto (Un sp spec)Ordered By: Azam Montgomery on 06-18-2024 Lymphocytes/100 WBC (Bld) 16.2 % Low 19-41 [facility] Monocyte percentageOrdered B y: Azam Montgomery on 06-18-2024 Monocytes/100 WBC (Bld) 3.9 % 0-10 [facility] Neutrophil percentageOrdered By: Azambar Montgomery on 06-18-2024 Neutrophils/100 WBC (Bld) 79.4 % High 47-70 [facility] Nucleated red blood cell per centageOrdered By: Azambar Montgomery on 06-18-2024 Nucleated RBC/100 WBC (Bld) [Ratio] 0 % 0-5 [facility] 12 Lead EKGon 06-17-2024 12 Lead EKG Normal [facility] Basic Metabolic Profile (BMP )on 06-17-2024 BUN/CRE 31.8 RATIO High 10-20 [facility] Comment on above: Performed By: #### L 500.2500, L100.0100 ####[facility] [address] [place], [address] Calcium [Mass/Vol] 8.7 mg/dL Normal 7.6-11.0 [facility] Comment on above: Performed By: #### L 500.2500, L100.0100 ####[facility] [address] [place], [address] Chloride [Moles/Vol] 100 mmol/L Normal 98-108 [facility] Comment on above: Performed By: #### L 500.2500, L100.0100 ####[facility] [address] [place], [address] CO2 [Moles/Vol] 31.0 mmol/L Normal 21.0-32.0 [facility] Comment on above: Performed By: #### L 500.2500, L100.0100 ####[facility] [address] [place], [address] Creatinine [Mass/Vol] 1.46 mg/dL High 0.70-1.20 [facility] Comment on above: Performed By: #### L 500.2500, L100.0100 ####[facility] [address] [place], [address] ECRCL 51.57 ml/min Normal 50-250 [facility] Comment on above: Performed By: #### L 500.2500, L100.0100 ####[facility] [address] [place], [address] GAP 9 Normal 5-15 [facility] Comment on above: Performed By: #### L 500.2500, L100.0100 ####[facility] [address] [place], [address] GFR/1.73 sq M.predicted among non-blacks MDRD (S/P/Bld) [Vol rate/Area] 36 mL/min/{1.73_m2} Low >60 [facility] Comment on above: Result Comment: mL/m in/1.73m2 CKD-EPI Creatinine Equation (2020) Performed By: #### L 500.2500, L100.0100 ####[facility] [address] [place], [address] Glucose [Mass/Vol] 173 mg/dL High 70-99 [facility] Comment on above: Performed By: #### L 500.2500, L100.0100 ####[facility] [address] [place], [address] Potassium [Moles/Vol] 3.4 mmol/L Normal 3.3-5.1 [facility] Comment on above: Performed By: #### L 500.2500, L100.0100 ####[facility] [address] [place], [address] Sodium [Moles/Vol] 140 mmol/L Normal 133-145 [facility] Comment on above: Performed By: #### L 500.2500, L100.0100 ####[facility] [address] [place], [address] Urea nitrogen [Mass/Vol] 46 mg/dL High 4-19 [facility] Comment on above: Performed By: #### L 500.2500, L100.0100 ####[facility] [address] [place], [address] Bedside Glucoseon - FINGERSTICK GLU 206 mg/dL High 74-106 [facility] Comment on above: Result Comment: ALEXIS GEMENT OF PATIENT CARE PER NURSING PROTOCOL Performed By: #### L 501.080 ####[facility] [address] [place], [address] FINGERSTICK GLU 127 mg/dL High 74-106 [facility] Comment on above: Result Comment: ALEXIS GEMENT OF PATIENT CARE PER NURSING PROTOCOL Performed By: #### L 501.080 ####[facility] [address] [place], [address] FINGERSTICK GLU 207 mg/dL High 74-106 [facility] Comment on above: Result Comment: ALEXIS GEMENT OF PATIENT CARE PER NURSING PROTOCOL Performed By: #### L 501.080 ####[facility] [address] [place], [address] FINGERSTICK GLU 162 mg/dL High 74-106 [facility] Comment on above: Result Comment: ALEXIS GEMENT OF PATIENT CARE PER NURSING PROTOCOL Performed By: #### L 501.080 ####[facility] [address] [place], [address] CBC W/Diff, Automatedon 04-0 Absolute Lymph 1.25 X10 3/uL Normal 0.83-4.51 [facility] Comment on above: Performed By: #### L 500.2500, L100.0100 ####[facility] [address] [place], [address] Absolute Neut 5.7 X10 3/uL Normal 2.0-7.7 [facility] Comment on above: Performed By: #### L 500.2500, L100.0100 ####[facility] [address] [place], [address] Basophils/100 WBC (Bld) 0.0 % Normal 0-1 [facility] Comment on above: Performed By: #### L 500.2500, L100.0100 ####[facility] [address] [place], [address] Eosinophils/100 WBC (Bld) 0.0 % Normal 0-5 [facility] Comment on above: Performed By: #### L 500.2500, L100.0100 ####[facility] [address] [place], [address] Erythrocyte distribution width (RBC) [Ratio] 14.5 % Normal 11.6-14.6 [facility] Comment on above: Performed By: #### L 500.2500, L100.0100 ####[facility] [address] [place], [address] Hematocrit (Bld) [Volume fraction] 47.9 % High 37-47 [facility] Comment on above: Performed By: #### L 500.2500, L100.0100 ####[facility] [address] [place], [address] Hemoglobin (Bld) [Mass/Vol] 14.6 g/dL Normal 12.0-15.0 [facility] Comment on above: Performed By: #### L 500.2500, L100.0100 ####[facility] [address] [place], [address] IG% 0.300 Normal 0.0-0.9 [facility] Comment on above: Result Comment: IG% - Immature Granulocytes (promyelocytes, myelocytes andmetamyelocytes) > 1% indicates that a LEFT SHIFT is Present. Performed By: #### L 500.2500, L100.0100 ####[facility] [address] [place], [address] Lymphocytes/100 WBC (Bld) 17.5 % Low 19-41 [facility] Comment on above: Performed By: #### L 500.2500, L100.0100 ####[facility] [address] [place], [address] MCH (RBC) [Entitic mass] 27.7 pg Normal 27.0-32.0 [facility] Comment on above: Performed By: #### L 500.2500, L100.0100 ####[facility] [address] [place], [address] MCHC (RBC) [Mass/Vol] 30.5 g/dL Low 32-36 [facility] Comment on above: Performed By: #### L 500.2500, L100.0100 ####[facility] [address] [place], [address] MCV (RBC) [Entitic vol] 90.7 fL Normal 81-99 [facility] Comment on above: Performed By: #### L 500.2500, L100.0100 ####[facility] [address] [place], [address] Monocytes/100 WBC (Bld) 3.1 % Normal 0-10 [facility] Comment on above: Performed By: #### L 500.2500, L100.0100 ####[facility] [address] [place], [address] Neutrophils/100 WBC (Bld) 79.1 % High 47-70 [facility] Comment on above: Performed By: #### L 500.2500, L100.0100 ####[facility] [address] [place], [address] Nucleated RBC (Bld) [#/Vol] 0 10*3/uL Normal 0-5 [facility] Comment on above: Performed By: #### L 500.2500, L100.0100 ####[facility] [address] [place], [address] Platelet mean volume (Bld) [Entitic vol] 9.5 fL Normal 6.2-12.0 [facility] Comment on above: Performed By: #### L 500.2500, L100.0100 ####[facility] [address] [place], [address] Platelets (Bld) [#/Vol] 157 10*3/uL Normal 150-450 [facility] Comment on above: Performed By: #### L 500.2500, L100.0100 ####[facility] [address] [place], [address] RBC (Bld) [#/Vol] 5.28 10*6/uL Normal 4.2-5.4 [facility] Comment on above: Performed By: #### L 500.2500, L100.0100 ####[facility] [address] [place], [address] RDW SD 49.1 fl High 35.1-43.9 [facility] Comment on above: Performed By: #### L 500.2500, L100.0100 ####[facility] [address] [place], [address] WBC (Bld) [#/Vol] 7.2 10*3/uL Normal 4.4-11.0 [facility] Comment on above: Performed By: #### L 500.2500, L100.0100 ####[facility] [address] [place], [address] Basic Metabolic Profile (BMP )on 06-16-2024 BUN/CRE 27.3 RATIO High 10-20 [facility] Comment on above: Performed By: #### L 500.2500, L100.0100 ####[facility] [address] [place], [address] Calcium [Mass/Vol] 8.6 mg/dL Normal 7.6-11.0 [facility] Comment on above: Performed By: #### L 500.2500, L100.0100 ####[facility] [address] [place], [address] Chloride [Moles/Vol] 101 mmol/L Normal 98-108 [facility] Comment on above: Performed By: #### L 500.2500, L100.0100 ####[facility] [address] [place], [address] CO2 [Moles/Vol] 18.1 mmol/L Low 21.0-32.0 [facility] Comment on above: Performed By: #### L 500.2500, L100.0100 ####[facility] [address] [place], [address] Creatinine [Mass/Vol] 1.56 mg/dL High 0.70-1.20 [facility] Comment on above: Performed By: #### L 500.2500, L100.0100 ####[facility] [address] [place], [address] ECRCL 48.19 ml/min Low 50-250 [facility] Comment on above: Performed By: #### L 500.2500, L100.0100 ####[facility] [address] [place], [address] GAP 17 High 5-15 [facility] Comment on above: Performed By: #### L 500.2500, L100.0100 ####[facility] [address] [place], [address] GFR/1.73 sq M.predicted among non-blacks MDRD (S/P/Bld) [Vol rate/Area] 33 mL/min/{1.73_m2} Low >60 [facility] Comment on above: Result Comment: mL/m in/1.73m2 CKD-EPI Creatinine Equation (2020) Performed By: #### L 500.2500, L100.0100 ####[facility] [address] [place], [address] Glucose [Mass/Vol] 195 mg/dL High 70-99 [facility] Comment on above: Performed By: #### L 500.2500, L100.0100 ####[facility] [address] [place], [address] Potassium [Moles/Vol] 4.5 mmol/L Normal 3.3-5.1 [facility] Comment on above: Result Comment: Hemo lysis present, Results??could be affected.?? Performed By: #### L 500.2500, L100.0100 ####[facility] [address] [place], [address] Sodium [Moles/Vol] 136 mmol/L Normal 133-145 [facility] Comment on above: Performed By: #### L 500.2500, L100.0100 ####[facility] [address] [place], [address] Urea nitrogen [Mass/Vol] 43 mg/dL High 4-19 [facility] Comment on above: Performed By: #### L 500.2500, L100.0100 ####[facility] [address] [place], [address] Bedside Glucoseon 06-16-2024 FINGERSTICK GLU 203 mg/dL High 74-106 [facility] Comment on above: Result Comment: ALEXIS GEMENT OF PATIENT CARE PER NURSING PROTOCOL Performed By: #### L 501.080 ####[facility] [address] [place], [address] FINGERSTICK GLU 202 mg/dL High 74-106 [facility] Comment on above: Result Comment: ALEXIS GEMENT OF PATIENT CARE PER NURSING PROTOCOL Performed By: #### L 501.080 ####[facility] [address] [place], [address] FINGERSTICK GLU 223 mg/dL High 74-106 [facility] Comment on above: Result Comment: ALEXIS GEMENT OF PATIENT CARE PER NURSING PROTOCOL Performed By: #### L 501.080 ####[facility] [address] [place], [address] FINGERSTICK GLU 204 mg/dL High 74-106 [facility] Comment on above: Result Comment: ALEXIS GEMENT OF PATIENT CARE PER NURSING PROTOCOL Performed By: #### L 501.080 ####[facility] [address] [place], [address] FINGERSTICK GLU 186 mg/dL High 74-106 [facility] Comment on above: Result Comment: ALEXIS GEMENT OF PATIENT CARE PER NURSING PROTOCOL Performed By: #### L 501.080 ####[facility] [address] [place], [address] CBC W/Diff, Automatedon 04-0 5-2025 Absolute Lymph 1.13 X10 3/uL Normal 0.83-4.51 [facility] Comment on above: Performed By: #### L 500.2500, L100.0100 ####[facility] [address] [place], [address] Absolute Neut 7.8 X10 3/uL High 2.0-7.7 [facility] Comment on above: Performed By: #### L 500.2500, L100.0100 ####[facility] [address] [place], [address] Basophils/100 WBC (Bld) 0.1 % Normal 0-1 [facility] Comment on above: Performed By: #### L 500.2500, L100.0100 ####[facility] [address] [place], [address] Eosinophils/100 WBC (Bld) 0.0 % Normal 0-5 [facility] Comment on above: Performed By: #### L 500.2500, L100.0100 ####[facility] [address] [place], [address] Erythrocyte distribution width (RBC) [Ratio] 14.8 % High 11.6-14.6 [facility] Comment on above: Performed By: #### L 500.2500, L100.0100 ####[facility] [address] [place], [address] Hematocrit (Bld) [Volume fraction] 47.2 % High 37-47 [facility] Comment on above: Performed By: #### L 500.2500, L100.0100 ####[facility] [address] [place], [address] Hemoglobin (Bld) [Mass/Vol] 14.4 g/dL Normal 12.0-15.0 [facility] Comment on above: Performed By: #### L 500.2500, L100.0100 ####[facility] [address] [place], [address] IG% 0.200 Normal 0.0-0.9 [facility] Comment on above: Result Comment: IG% - Immature Granulocytes (promyelocytes, myelocytes andmetamyelocytes) > 1% indicates that a LEFT SHIFT is Present. Performed By: #### L 500.2500, L100.0100 ####[facility] [address] [place], [address] Lymphocytes/100 WBC (Bld) 12.3 % Low 19-41 [facility] Comment on above: Performed By: #### L 500.2500, L100.0100 ####[facility] [address] [place], [address] MCH (RBC) [Entitic mass] 27.8 pg Normal 27.0-32.0 [facility] Comment on above: Performed By: #### L 500.2500, L100.0100 ####[facility] [address] [place], [address] MCHC (RBC) [Mass/Vol] 30.5 g/dL Low 32-36 [facility] Comment on above: Performed By: #### L 500.2500, L100.0100 ####[facility] [address] [place], [address] MCV (RBC) [Entitic vol] 91.1 fL Normal 81-99 [facility] Comment on above: Performed By: #### L 500.2500, L100.0100 ####[facility] [address] [place], [address] Monocytes/100 WBC (Bld) 2.8 % Normal 0-10 [facility] Comment on above: Performed By: #### L 500.2500, L100.0100 ####[facility] [address] [place], [address] Neutrophils/100 WBC (Bld) 84.6 % High 47-70 [facility] Comment on above: Performed By: #### L 500.2500, L100.0100 ####[facility] [address] [place], [address] Nucleated RBC (Bld) [#/Vol] 0 10*3/uL Normal 0-5 [facility] Comment on above: Performed By: #### L 500.2500, L100.0100 ####[facility] [address] [place], [address] Platelet mean volume (Bld) [Entitic vol] 9.8 fL Normal 6.2-12.0 [facility] Comment on above: Performed By: #### L 500.2500, L100.0100 ####[facility] [address] [place], [address] Platelets (Bld) [#/Vol] 167 10*3/uL Normal 150-450 [facility] Comment on above: Performed By: #### L 500.2500, L100.0100 ####[facility] [address] [place], [address] RBC (Bld) [#/Vol] 5.18 10*6/uL Normal 4.2-5.4 [facility] Comment on above: Performed By: #### L 500.2500, L100.0100 ####[facility] [address] [place], [address] RDW SD 50.1 fl High 35.1-43.9 [facility] Comment on above: Performed By: #### L 500.2500, L100.0100 ####[facility] [address] [place], [address] WBC (Bld) [#/Vol] 9.2 10*3/uL Normal 4.4-11.0 [facility] Comment on above: Performed By: #### L 500.2500, L100.0100 ####[facility] [address] [place], [address] Foot min 3 Viewson 5 Foot min 3 Views Normal [facility] Respiratory Cultureon 2024 RESPC Normal [facility] Comment on above: Performed By: #### M 100.2000, M100.2400 ####[facility] [address] [place], [address] Basic Metabolic Profile (BMP )on 06-15-2024 BUN/CRE 23.9 RATIO High 10-20 [facility] Comment on above: Performed By: #### L 500.2500, L501.5200, L100.0100 ####[facility] [address] [place], [address] Calcium [Mass/Vol] 9.0 mg/dL Normal 7.6-11.0 [facility] Comment on above: Performed By: #### L 500.2500, L501.5200, L100.0100 ####[facility] [address] [place], [address] Chloride [Moles/Vol] 102 mmol/L Normal 98-108 [facility] Comment on above: Performed By: #### L 500.2500, L501.5200, L100.0100 ####[facility] [address] [place], [address] CO2 [Moles/Vol] 26.8 mmol/L Normal 21.0-32.0 [facility] Comment on above: Performed By: #### L 500.2500, L501.5200, L100.0100 ####[facility] [address] [place], [address] Creatinine [Mass/Vol] 1.54 mg/dL High 0.70-1.20 [facility] Comment on above: Performed By: #### L 500.2500, L501.5200, L100.0100 ####[facility] [address] [place], [address] ECRCL 49.08 ml/min Low 50-250 [facility] Comment on above: Performed By: #### L 500.2500, L501.5200, L100.0100 ####[facility] [address] [place], [address] GAP 12 Normal 5-15 [facility] Comment on above: Performed By: #### L 500.2500, L501.5200, L100.0100 ####[facility] [address] [place], [address] GFR/1.73 sq M.predicted among non-blacks MDRD (S/P/Bld) [Vol rate/Area] 34 mL/min/{1.73_m2} Low >60 [facility] Comment on above: Result Comment: mL/m in/1.73m2 CKD-EPI Creatinine Equation (2020) Performed By: #### L 500.2500, L501.5200, L100.0100 ####[facility] [address] [place], [address] Glucose [Mass/Vol] 191 mg/dL High 70-99 [facility] Comment on above: Performed By: #### L 500.2500, L501.5200, L100.0100 ####[facility] [address] [place], [address] Potassium [Moles/Vol] 3.8 mmol/L Normal 3.3-5.1 [facility] Comment on above: Performed By: #### L 500.2500, L501.5200, L100.0100 ####[facility] [address] [place], [address] Sodium [Moles/Vol] 140 mmol/L Normal 133-145 [facility] Comment on above: Performed By: #### L 500.2500, L501.5200, L100.0100 ####[facility] [address] [place], [address] Urea nitrogen [Mass/Vol] 37 mg/dL High 4-19 [facility] Comment on above: Performed By: #### L 500.2500, L501.5200, L100.0100 ####[facility] [address] [place], [address] Bedside Glucoseon 06-15-2024 FINGERSTICK GLU 211 mg/dL High 74-106 [facility] Comment on above: Result Comment: ALEXIS BAE OF PATIENT CARE PER NURSING PROTOCOL Performed By: #### L 501.080 ####[facility] [address] [place], [address] FINGERSTICK GLU 207 mg/dL High 74-106 [facility] Comment on above: Result Comment: ALEXIS GEMENT OF PATIENT CARE PER NURSING PROTOCOL Performed By: #### L 501.080 ####[facility] [address] [place], [address] FINGERSTICK GLU 188 mg/dL High 74-106 [facility] Comment on above: Result Comment: ALEXIS GEMENT OF PATIENT CARE PER NURSING PROTOCOL Performed By: #### L 501.080 ####[facility] [address] [place], [address] FINGERSTICK GLU 230 mg/dL High 74-106 [facility] Comment on above: Result Comment: ALEXIS GEMENT OF PATIENT CARE PER NURSING PROTOCOL Performed By: #### L 501.080 ####[facility] [address] [place], [address] CBC W/Diff, Automatedon 04-0 -2024 Absolute Lymph 1.44 X10 3/uL Normal 0.83-4.51 [facility] Comment on above: Performed By: #### L 500.2500, L501.5200, L100.0100 ####[facility] [address] [place], [address] Absolute Neut 8.6 X10 3/uL High 2.0-7.7 [facility] Comment on above: Performed By: #### L 500.2500, L501.5200, L100.0100 ####[facility] [address] [place], [address] Basophils/100 WBC (Bld) 0.1 % Normal 0-1 [facility] Comment on above: Performed By: #### L 500.2500, L501.5200, L100.0100 ####[facility] [address] [place], [address] Eosinophils/100 WBC (Bld) 0.0 % Normal 0-5 [facility] Comment on above: Performed By: #### L 500.2500, L501.5200, L100.0100 ####[facility] [address] [place], [address] Erythrocyte distribution width (RBC) [Ratio] 15.0 % High 11.6-14.6 [facility] Comment on above: Performed By: #### L 500.2500, L501.5200, L100.0100 ####[facility] [address] [place], [address] Hematocrit (Bld) [Volume fraction] 49.6 % High 37-47 [facility] Comment on above: Performed By: #### L 500.2500, L501.5200, L100.0100 ####[facility] [address] [place], [address] Hemoglobin (Bld) [Mass/Vol] 15.1 g/dL High 12.0-15.0 [facility] Comment on above: Performed By: #### L 500.2500, L501.5200, L100.0100 ####[facility] [address] [place], [address] IG% 0.400 Normal 0.0-0.9 [facility] Comment on above: Result Comment: IG% - Immature Granulocytes (promyelocytes, myelocytes andmetamyelocytes) > 1% indicates that a LEFT SHIFT is Present. Performed By: #### L 500.2500, L501.5200, L100.0100 ####[facility] [address] [place], [address] Lymphocytes/100 WBC (Bld) 13.8 % Low 19-41 [facility] Comment on above: Performed By: #### L 500.2500, L501.5200, L100.0100 ####[facility] [address] [place], [address] MCH (RBC) [Entitic mass] 27.6 pg Normal 27.0-32.0 [facility] Comment on above: Performed By: #### L 500.2500, L501.5200, L100.0100 ####[facility] [address] [place], [address] MCHC (RBC) [Mass/Vol] 30.4 g/dL Low 32-36 [facility] Comment on above: Performed By: #### L 500.2500, L501.5200, L100.0100 ####[facility] [address] [place], [address] MCV (RBC) [Entitic vol] 90.7 fL Normal 81-99 [facility] Comment on above: Performed By: #### L 500.2500, L501.5200, L100.0100 ####[facility] [address] [place], [address] Monocytes/100 WBC (Bld) 3.0 % Normal 0-10 [facility] Comment on above: Performed By: #### L 500.2500, L501.5200, L100.0100 ####[facility] [address] [place], [address] Neutrophils/100 WBC (Bld) 82.7 % High 47-70 [facility] Comment on above: Performed By: #### L 500.2500, L501.5200, L100.0100 ####[facility] [address] [place], [address] Nucleated RBC (Bld) [#/Vol] 0 10*3/uL Normal 0-5 [facility] Comment on above: Performed By: #### L 500.2500, L501.5200, L100.0100 ####[facility] [address] [place], [address] Platelet mean volume (Bld) [Entitic vol] 9.5 fL Normal 6.2-12.0 [facility] Comment on above: Performed By: #### L 500.2500, L501.5200, L100.0100 ####[facility] [address] [place], [address] Platelets (Bld) [#/Vol] 177 10*3/uL Normal 150-450 [facility] Comment on above: Performed By: #### L 500.2500, L501.5200, L100.0100 ####[facility] [address] [place], [address] RBC (Bld) [#/Vol] 5.47 10*6/uL High 4.2-5.4 [facility] Comment on above: Performed By: #### L 500.2500, L501.5200, L100.0100 ####[facility] [address] [place], [address] RDW SD 50.6 fl High 35.1-43.9 [facility] Comment on above: Performed By: #### L 500.2500, L501.5200, L100.0100 ####[facility] [address] [place], [address] WBC (Bld) [#/Vol] 10.4 10*3/uL Normal 4.4-11.0 [facility] Comment on above: Performed By: #### L 500.2500, L501.5200, L100.0100 ####[facility] [address] [place], [address] Chest 1 View (Portable)on Chest 1 View (Portable) Normal [facility] Electrocardiogram reportOrde red By: Shun Luciano on 06-15-2024 EKG study [facility] [address] [place] [address] 12 Lead EKG 06/13/241956 MR#: [id number] Acct: [id number] Name: TOD HUNT Rep #:[id number] : 1945 78 From: Shun Luciano MD Attending Dr: Dr. Azam Montgomery MD Status: ADM IN Ordering Dr: Gabriel Rucker DO Date: 05/08 Location: [facility] Sex: F C Admitted: 06/13/24 Test Reason [...] T wave abnormality Abnormal ECG Confirmed by MUSTAPHA ROSS, SHUN ([id number]), associate editor BETHEL PALMA ([id number]) on 06/15/2024 9:23:38 AM Referred By: FRANK Confirmed By: SHUN LUCIANO MD 06/15/24 0923 Date _ Shun Luciano MD CC: Dr. Socrates Spangler MD; Dr. Azam Montgomery MD; Dr. Gabriel Rucker DO ~ Signed [facility] Work Phone: Gram Stainon 06-15-2024 GS Normal [facility] Comment on above: Performed By: #### M 100.2000, M100.2400 ####[facility] [address] [place], [address] Magnesiumon 06-15-2024 Magnesium [Mass/Vol] 1.7 mg/dL Normal 1.5-2.2 [facility] Comment on above: Performed By: #### L 500.2500, L501.5200, L100.0100 ####[facility] [address] [place], [place], [address] Arterial patency Wrist arter y --pre arterial punctureOrdered By: sEtela Staton on 06-14-2024 Shirin Test Positive [facility] Base excess Calc (BldV) [Mol es/Vol]Ordered By: Estela Staton on 06-14-2024 Blood Gas Base Excess 4 mmol/L High -2-2 [facility] Bedside Glucoseon 06-14-2024 FINGERSTICK GLU 195 mg/dL High 74-106 [facility] Comment on above: Result Comment: ALEXIS GEMENT OF PATIENT CARE PER NURSING PROTOCOL Performed By: #### L 501.080 ####[facility] [address] [place], [address] FINGERSTICK GLU 235 mg/dL High -106 [facility] Comment on above: Result Comment: ALEXIS GEMENT OF PATIENT CARE PER NURSING PROTOCOL Performed By: #### L 501.080 ####[facility] [address] [place], [address] FINGERSTICK GLU 204 mg/dL [address] Comment on above: Result Comment: ALEXIS GEMENT OF PATIENT CARE PER NURSING PROTOCOL Performed By: #### L 501.080 ####[facility] [address] [place], [address] FINGERSTICK GLU 218 mg/dL [address] [facility] Comment on above: Result Comment: ALEXIS GEMENT OF PATIENT CARE PER NURSING PROTOCOL Performed By: #### L 501.080 ####[facility] [address] [place], [address] Bilirubin, totalOrdered By: Estela Staton on 06-14-2024 Bilirubin [Mass/Vol] 0.41 mg/dL 0.00-1.30 [facility] Blood Gases by CPSon 025 SHIRIN TEST Positive Normal [facility] Comment on above: Performed By: #### L 9000.0800 ####[facility] [address] [place], [address] Base excess Calc (Bld) [Moles/Vol] 4 mmol/L High -2 to +2 [facility] Comment on above: Performed By: #### L 9000.0800 ####[facility] [address] [place], [address] Blood Gas Type ART Normal [facility] Comment on above: Performed By: #### L 8999.08 ####[facility] [address] [place], [address] CO2 [Moles/Vol] 32 mmol/L Normal [facility] Comment on above: Performed By: #### L 8999.08 ####[facility] [address] [place], [address] FI02 30.0 Normal [facility] Comment on above: Performed By: #### L 8999.0800 ####[facility] [address] [place], [address] HCO3 (Bld) [Moles/Vol] 29.9 mmol/L High 22-26 [facility] Comment on above: Performed By: #### L 8999.08 ####[facility] [address] [place], [address] Mode Not entered Normal [facility] Comment on above: Performed By: #### L 8999.08 ####[facility] [address] [place], [address] O2 Delivery Dev BiPAP Normal [facility] Comment on above: Performed By: #### L 8999.0800 ####[facility] [address] [place], [address] pCO2 60.2 mmHg High 35-45 [facility] Comment on above: Performed By: #### L 8999.08 ####[facility] [address] [place], [address] PEEP 10 Normal [facility] Comment on above: Performed By: #### L 8999.0800 ####[facility] [address] [place], [address] pH (Bld) 7.30 [pH] Low 7.35-7.45 [facility] Comment on above: Performed By: #### L 9000.0800 ####[facility] [address] [place], [address] PIP 20 Normal [facility] Comment on above: Performed By: #### L 9000.0800 ####[facility] [address] [place], [address] PO2 70 mmHG Low 75-100 [facility] Comment on above: Performed By: #### L 9000.0800 ####[facility] [address] [place], [address] RR 12 Normal [facility] Comment on above: Performed By: #### L 9000.0800 ####[facility] [address] [place], [address] SITE R Radial Normal [facility] Comment on above: Performed By: #### L 9000.0800 ####[facility] [address] [place], [address] SO2 92 Low 95-99 [facility] Comment on above: Performed By: #### L 9000.0800 ####[facility] [address] [place], [address] Blood bicarbonate measuremen tOrdered By: Estela Staton on 06-14-2024 Blood Gas Bicarbonate Actual 29.9 mmol/L High 22-26 [facility] CBC W/Diff, Automatedon 04-0 Platelets (Bld) [#/Vol] 101 10*3/uL Low 150-450 [facility] Comment on above: Performed By: #### L 501.9520, L500.4100, L506.0400, L100.0100, L500.4050 ####[facility] [address] [place], [address] Calculated very low density lipoprotein (VLDL) cholesterol measurementOrdered By: Estela Staton on 06-14-2024 VLDL Cholesterol 13 mg/dL 5-40 [facility] Comprehensive Metabolic Prof kyrie 06-14-2024 Albumin [Mass/Vol] 3.2 g/dL Low 3.4-4.8 [facility] Comment on above: Performed By: #### L 501.9520, L500.4100, L506.0400, L100.0100, L500.4050 ####[facility] [address] [place], [address] Albumin/Globulin [Mass ratio] 1.2 {ratio} Normal 0.9-2.4 [facility] Comment on above: Performed By: #### L 501.9520, L500.4100, L506.0400, L100.0100, L500.4050 ####[facility] [address] [place], [address] ALK PHOS 107 U/L High 35-104 [facility] Comment on above: Performed By: #### L 501.9520, L500.4100, L506.0400, L100.0100, L500.4050 ####[facility] [address] [place], [address] ALT [Catalytic activity/Vol] 19 U/L Normal <=34 [facility] Comment on above: Performed By: #### L 501.9520, L500.4100, L506.0400, L100.0100, L500.4050 ####[facility] [address] [place], [address] AST [Catalytic activity/Vol] 32 U/L Normal <=31 [facility] Comment on above: Result Comment: Hemo lysis present, Results??could be affected.?? Performed By: #### L 501.9520, L500.4100, L506.0400, L100.0100, L500.4050 ####[facility] [address] [place], [address] Bilirubin [Mass/Vol] 0.41 mg/dL Normal 0.00-1.30 [facility] Comment on above: Performed By: #### L 501.9520, L500.4100, L506.0400, L100.0100, L500.4050 ####[facility] [address] [place], [address] BUN/CRE 22.6 RATIO High 10-20 [facility] Comment on above: Performed By: #### L 501.9520, L500.4100, L506.0400, L100.0100, L500.4050 ####[facility] [address] [place], [address] Calcium [Mass/Vol] 9.0 mg/dL Normal 7.6-11.0 [facility] Comment on above: Performed By: #### L 501.9520, L500.4100, L506.0400, L100.0100, L500.4050 ####[facility] [address] [place], [address] Chloride [Moles/Vol] 105 mmol/L Normal 98-108 [facility] Comment on above: Performed By: #### L 501.9520, L500.4100, L506.0400, L100.0100, L500.4050 ####[facility] [address] [place], [address] CO2 [Moles/Vol] 19.3 mmol/L Low 21.0-32.0 [facility] Comment on above: Performed By: #### L 501.9520, L500.4100, L506.0400, L100.0100, L500.4050 ####[facility] [address] [place], [address] Creatinine [Mass/Vol] 1.41 mg/dL High 0.70-1.20 [facility] Comment on above: Performed By: #### L 501.9520, L500.4100, L506.0400, L100.0100, L500.4050 ####[facility] [address] [place], [address] ECRCL 53.62 ml/min Normal 50-250 [facility] Comment on above: Performed By: #### L 501.9520, L500.4100, L506.0400, L100.0100, L500.4050 ####[facility] [address] [place], [address] GAP 16 High 5-15 [facility] Comment on above: Performed By: #### L 501.9520, L500.4100, L506.0400, L100.0100, L500.4050 ####[facility] [address] [place], [address] GFR/1.73 sq M.predicted among non-blacks MDRD (S/P/Bld) [Vol rate/Area] 38 mL/min/{1.73_m2} Low >60 [facility] Comment on above: Result Comment: mL/m in/1.73m2 CKD-EPI Creatinine Equation (2020) Performed By: #### L 501.9520, L500.4100, L506.0400, L100.0100, L500.4050 ####[facility] [address] [place], [address] Globulin (S) [Mass/Vol] 2.7 g/dL Normal 2.2-4.2 [facility] Comment on above: Performed By: #### L 501.9520, L500.4100, L506.0400, L100.0100, L500.4050 ####[facility] [address] [place], [address] Glucose [Mass/Vol] 221 mg/dL High 70-99 [facility] Comment on above: Performed By: #### L 501.9520, L500.4100, L506.0400, L100.0100, L500.4050 ####[facility] [address] [place], [address] Potassium [Moles/Vol] 4.8 mmol/L Normal 3.3-5.1 [facility] Comment on above: Result Comment: Hemo lysis present, Results??could be affected.?? Performed By: #### L 501.9520, L500.4100, L506.0400, L100.0100, L500.4050 ####[facility] [address] [place], [address] Sodium [Moles/Vol] 140 mmol/L Normal 133-145 [facility] Comment on above: Performed By: #### L 501.9520, L500.4100, L506.0400, L100.0100, L500.4050 ####[facility] [address] [place], [address] T PROT 5.9 g/dL Normal 5.9-8.4 [facility] Comment on above: Performed By: #### L 501.9520, L500.4100, L506.0400, L100.0100, L500.4050 ####[facility] [address] [place], [address] Urea nitrogen [Mass/Vol] 32 mg/dL High 4-19 [facility] Comment on above: Performed By: #### L 501.9520, L500.4100, L506.0400, L100.0100, L500.4050 ####[facility] [address] [place], [address] Determination of fraction of inspired oxygenOrdered By: Estela Staton on 06-14-2024 Blood Gas Oxygen Percent 30.0 [facility] Echo Complete W/ Contraston 06-14-2024 Echo Complete W/ Contrast Normal [facility] Echocardiogram study reportO rdered By: Shun Luciano on 06-14-2024 Study report [facility] [place] [address] Echo Complete W/ Contrast 06/14/24 0854 MR#: [id number] Acct: [id number] Name: TOD HUNT Rep #:[id number] : 1945 78 From: Shun Alarcon Attending Dr: Dr. Azam Montgomery MD Status: ADM IN Ordering Dr: Estela Staton MD Date: 06/14/24 Location: [facility] Sex: F C Admitted: 06/13/24 Reason For [...] Dictated: 06/14/24 0854 Date Transcribed: 06/14/24 1140 Logging Worker: Signed [facility] Work Phone: Gram stainOrdered By: Estela Staton on 06-14-2024 Microscopic observation Gram stain Nom (Unsp spec) [facility] L. pneumophila Ag Ql (U)Orde red By: Estela Staton on 06-14-2024 Legionella Antigen [facility] L499.0043on 06-14-2024 Trop T High Sen 51 ng/L High <=14 [facility] Comment on above: Performed By: #### L 499.0043 ####[facility] [address] [place], [place], [address] L509.7001on 06-14-2024 Procalcitonin 0.06 ng/mL Normal <=0.10 [facility] Comment on above: Result Comment: Inte rpretation:<0.10-0.25 ng/mL: Antibiotic therapy discouraged. Bacterialinfection unlikely.0.25-0.50 ng/mL: Antibiotic therapy encouraged. Bacterialinfection possible.>0.50 ng/mL: Antibiotic therapy strongly encouraged.Suggestive of presence of bacterial infection.PCT should always be interpreted in the clinical context ofthe patient. Therefore, clinicians should use the PCTresults in conjunction with other laboratory findings andclinical signs of the patient. Performed By: #### L 509.7001 ####[facility] [address] [place], [place], [address] LDL calc ser/plasOrdered By: [facility] Brionna on 06-14-2024 LDL Cholesterol, Calculated 56 mg/dL [facility] Comment on above: Dohhlwxnwq=273-438 m g/dL & Higher Zacx=619 mg/dL or greater Laboratory - Chemistry and C hemistry - challengeOrdered By: Estela Staton on 06-14-2024 AST [Catalytic activity/Vol] 32 U/L <32 [facility] Comment on above: Hemolysis present, R esults could be affected. Legionella Antigen Urineon 0 06-14-2024 LEGU Normal [facility] Comment on above: Performed By: #### M 300.4500, M300.4600 ####[facility] [address] [place], [address] Lipid Profileon 06-14-2024 CHOL:HDL 3.01 Normal [facility] Comment on above: Performed By: #### L 501.9520, L500.4100, L506.0400, L100.0100, L500.4050 ####[facility] [address] [place], [address] Cholesterol [Mass/Vol] 104 mg/dL Normal <=200 [facility] Comment on above: Result Comment: Chol esterol level, Desirable <200 mg/dLBorderline high cholesterol 200-239 mg/dLHigh cholesterol >=240 mg/dLRecommendations of the NCEP Adult Treatment Panel for thefollowing risk-cutoff thresholds for the [place] [facility]. Performed By: #### L 501.9520, L500.4100, L506.0400, L100.0100, L500.4050 ####[facility] [address] [place], [address] Cholesterol in HDL [Mass/Vol] 35 mg/dL Low [facility] Comment on above: Result Comment: Sofia onal Cholesterol Education Program (NCEP) guidelines:<40 mg/dL: Low HDL-cholesterol (major risk factor for CHD)>= 60 mg/dL: High HDL-cholesterol (negative risk factor forCHD)HDL-cholesterol is affected by a number of factors, e.g.smoking, exercise, hormones, sex and age. Performed By: #### L 501.9520, L500.4100, L506.0400, L100.0100, L500.4050 ####[facility] [address] [place], [address] Cholesterol in LDL [Mass/Vol] 56 mg/dL Normal [facility] Comment on above: Result Comment: Bord bkvskl=688-071 mg/dL Higher Gzle=809 mg/dL or greater Performed By: #### L 501.9520, L500.4100, L506.0400, L100.0100, L500.4050 ####[facility] [address] [place], [address] Cholesterol in VLDL [Mass/Vol] 13 mg/dL Normal 5-40 [facility] Comment on above: Performed By: #### L 501.9520, L500.4100, L506.0400, L100.0100, L500.4050 ####[facility] [address] [place], [address] Triglyceride [Mass/Vol] 65 mg/dL Normal [facility] Comment on above: Result Comment: The drugs N-Acetylcysteine and Metamizole may falselydepress this assay.Normal range: <150 mg/dLBorderline High: 150-199 mg/dLHigh: 200-499 mg/dLVery High: >500 mg/dL Performed By: #### L 501.9520, L500.4100, L506.0400, L100.0100, L500.4050 ####[facility] [address] [place], [place], [address] Microorganism identified Cx Nom (Unsp spec)Ordered By: Estela Staton on 06-14-2024 Respiratory Culture or Staphylococcus au reus isolated. [facility] No Panel InformationOrdered By: Estela Staton on 06-14-2024 Bedside Blood Gas PEEP 10 [facility] Bld Gas Peak Inspiratory Pressure 20 [facility] Blood Gas Respiration Rate 12 [facility] Blood Gas Sample Site R Radial [facility] Blood Gas Specimen Type ART [facility] Blood Gas Vent Mode Not entered [facility] Oxygen Delivery Device BiPAP [facility] Procalcitonin 0.06 ng/mL <0.11 [facility] Comment on above: Interpretation:<0.10 -0.25 ng/mL: [...] Gas Oxygen Saturation 92 % Low 95-99 [facility] Partial pressure of carbon d ioxide measurementOrdered By: Estela Staton 06-14-2024 Arterial Blood Partial Pressure CO2 60.2 mmHg High 35-45 [facility] Partial pressure of oxygen m easurementOrdered By: Estela Staton 06-14-2024 Arterial Blood Partial Pressure O2 70 mmHG Low 75-100 [facility] RESPIRATORY PANEL MOLECULARo n 06-14-2024 RP PANEL Normal [facility] Comment on above: Performed By: #### M 100.638 ####[facility] [address] [place], [address] Screening total cholesterol/ high density lipoprotein (HDL) cholesterol ratioOrdered By: Estela Staton 06-14-2024 Cholesterol.total/Dora sterol in HDL [Mass ratio] 3.01 {ratio} [facility] Serum globulin measurementOr dered By: Estela Staton 06-14-2024 Globulin (S) [Mass/Vol] 2.7 g/dL 2.2-4.2 [facility] Serum or plasma alanine aguirre otransferase (ALT) measurementOrdered By: Estela Staton 06-14-2024 ALT [Catalytic activity/Vol] 19 U/L <35 [facility] Serum or plasma albumin kezia urement (mass/volume)Ordered By: Estela Staton 06-14-2024 Albumin [Mass/Vol] 3.2 g/dL Low 3.4-4.8 [facility] Serum or plasma albumin/glob ulin mass ratioOrdered By: Estela Staton 06-14-2024 Albumin/Globulin [Mass ratio] 1.2 {ratio} 0.9-2.4 [facility] Serum or plasma alkaline dawood sphatase measurementOrdered By: Estela Staton 06-14-2024 ALP [Catalytic activity/Vol] 107 U/L High 35-104 [facility] Serum or plasma cholesterol in HDL measurement (mass/volume)Ordered By: Estela Staton on 06-14-2024 Cholesterol in HDL [Mass/Vol] 35 mg/dL Low >40 [facility] Comment on above: National Cholesterol Education Program (NCEP) guidelines:<40 mg/dL: Low HDL-cholesterol (major risk factor for CHD)>= 60 mg/dL: High HDL-cholesterol (negative risk factor for CHD)HDL-cholesterol is affected by a number of factors, e.g. smoking, exercise, hormones, sex and age. Serum or plasma cholesterol measurement (mass/volume)Ordered By: Estela Staton on 06-14-2024 Cholesterol [Mass/Vol] 104 mg/dL <201 [facility] Comment on above: Cholesterol level, D esirable <200 mg/dLBorderline high cholesterol 200-239 mg/dLHigh cholesterol >=240 mg/dLRecommendations of the NCEP Adult Treatment Panel for the following risk-cutoff thresholds for the [place] population. Strep pneumoniae Antig(UR,CS F)on 06-14-2024 STPAG Normal [facility] Comment on above: Performed By: #### M 300.4500, M300.4600 ####[facility] [address] [facility] [address] [place], [place], [address] Streptococcus pneumoniae ant igen assayOrdered By: Estela Staton on 06-14-2024 Streptococcus pneumoniae Antigen (M [facility] T4 Free Directon 06-14-2024 T4 FREE DIRECT 1.30 ng/dL Normal 0.76-1.46 [facility] Comment on above: Performed By: #### L 501.9520, L500.4100, L506.0400, L100.0100, L500.4050 ####[facility] [address] [facility] [address] [place], [place], [address] T4 freeOrdered By: Estela Schultz ite on 06-14-2024 Free T4 [Mass/Vol] 1.30 ng/dL 0.76-1.46 [facility] TSH DL <= 0.005 mIU/L QnOrde red By: Estela Staton on 06-14-2024 Thyroid Stimulating Hormone (TSH) 1.690 uIU/mL 0.300-4.200 [facility] Thyroid Stim Hormone (TSH)on 06-14-2024 TSH 1.690 uIU/mL Normal 0.300-4.200 [facility] Comment on above: Performed By: #### L 501.9520, L500.4100, L506.0400, L100.0100, L500.4050 ####[facility] [address] [place], [address] Total carbon dioxide measure mentOrdered By: Estela Staton on 06-14-2024 Blood Gas Total CO2 32 mmol/L [facility] Total proteinOrdered By: Cindy Staton on 06-14-2024 Protein [Mass/Vol] 5.9 g/dL 5.9-8.4 [facility] Triglycerides measurementOrd ered By: Estela Staton on 06-14-2024 Triglyceride [Mass/Vol] 65 mg/dL <199 [facility] Comment on above: The drugs N-Acetylcy steine and Metamizole may falsely depress this assay. Normal range: <150 mg/dLBorderline High: 150-199 mg/dLHigh: 200-499 mg/dLVery High: >500 mg/dL Troponin T.cardiac High sens itivity method [Mass/Vol]Ordered By: Gabriel Rucker on 06-14-2024 Troponin T High Sensitivity 4 Hour 51 ng/L High <14 [facility] pH (Unsp spec)Ordered By: Alannah Staton on 06-14-2024 Blood Gas pH 7.30 Low 7.35-7.45 [facility] 12 Lead EKGon 06-13-2024 12 Lead EKG Normal [facility] Absolute neutrophil countOrd ered By: Gabriel Rucker on 06-13-2024 Neutrophils (Bld) [#/Vol] 6.2 10*3/uL 2.0-7.7 [facility] Anion gap in Serum or Plasma Ordered By: Gabriel Rucker on 06-13-2024 Anion gap [Moles/Vol] 10 mmol/L 5-15 [facility] Assessment of wrist artery p atency prior to arterial punctureOrdered By: Gabriel Rucker on 06-13-2024 Shirin Test Positive Normal [facility] Comment on above: Performed By: #### L 9000.0800 ####[facility] [address] [place], [address] Atypical lymphocyte percenta geOrdered By: Gabriel Rucker on 06-13-2024 Atypical Lymphocytes 2+ % [facility] BUN/creatinine ratioOrdered By: Gabriel Rucker on 06-13-2024 Urea nitrogen/Creatinine [Mass ratio] 24.6 mg/mg High 10-20 [facility] Base excess Calc (BldV) [Mol es/Vol]Ordered By: Gabriel Rucker on 06-13-2024 Blood Gas Base Excess 2 mmol/L -2-2 [facility] Basic Metabolic Profile (BMP )on 06-13-2024 BUN/CRE 24.6 RATIO High 10-20 [facility] Comment on above: Performed By: #### L 100.0100, L300.8000, L500.2500 ####[facility] [address] [place], [address] Calcium [Mass/Vol] 9.1 mg/dL Normal 7.6-11.0 [facility] Comment on above: Performed By: #### L 100.0100, L300.8000, L500.2500 ####[facility] [address] [place], [address] Chloride [Moles/Vol] 104 mmol/L Normal 98-108 [facility] Comment on above: Performed By: #### L 100.0100, L300.8000, L500.2500 ####[facility] [address] [place], [address] CO2 [Moles/Vol] 26.5 mmol/L Normal 21.0-32.0 [facility] Comment on above: Performed By: #### L 100.0100, L300.8000, L500.2500 ####[facility] [address] [place], [address] Creatinine [Mass/Vol] 1.14 mg/dL Normal 0.70-1.20 [facility] Comment on above: Performed By: #### L 100.0100, L300.8000, L500.2500 ####[facility] [address] [place], [address] ECRCL 61.75 ml/min Normal 50-250 [facility] Comment on above: Performed By: #### L 100.0100, L300.8000, L500.2500 ####[facility] [address] [place], [address] GAP 10 Normal 5-15 [facility] Comment on above: Performed By: #### L 100.0100, L300.8000, L500.2500 ####[facility] [address] [place], [address] GFR/1.73 sq M.predicted among non-blacks MDRD (S/P/Bld) [Vol rate/Area] 49 mL/min/{1.73_m2} Low >60 [facility] Comment on above: Result Comment: mL/m in/1.73m2 CKD-EPI Creatinine Equation (2020) Performed By: #### L 100.0100, L300.8000, L500.2500 ####[facility] [address] [place], [address] Glucose [Mass/Vol] 154 mg/dL High 70-99 [facility] Comment on above: Performed By: #### L 100.0100, L300.8000, L500.2500 ####[facility] [address] [place], [address] Potassium [Moles/Vol] 4.2 mmol/L Normal 3.3-5.1 [facility] Comment on above: Performed By: #### L 100.0100, L300.8000, L500.2500 ####[facility] [address] [place], [address] Sodium [Moles/Vol] 141 mmol/L Normal 133-145 [facility] Comment on above: Performed By: #### L 100.0100, L300.8000, L500.2500 ####[facility] [address] [place], [address] Urea nitrogen [Mass/Vol] 28 mg/dL High 4-19 [facility] Comment on above: Performed By: #### L 100.0100, L300.8000, L500.2500 ####[facility] [address] [place], [address] Basophil percentageOrdered B y: Gabriel Ungur on 06-13-2024 Basophils/100 WBC (Bld) 0.3 % 0-1 [facility] Bilirubin Test strip Ql (U)O rdered By: Estela White on 06-13-2024 Bilirubin Ql (U) Negative Negative [facility] Blood Gases by [facility] 0[facility] Base excess Calc (Bld) [Moles/Vol] 2 mmol/L Normal -2 to +2 [facility] Comment on above: Performed By: #### L 9000.0800 ####[facility] [address] [place], [address] Blood Gas Type ART Normal [facility] Comment on above: Performed By: #### L 9000.0800 ####[facility] [address] [place], [address] CO2 [Moles/Vol] 31 mmol/L Normal [facility] Comment on above: Performed By: #### L 9000.0800 ####[facility] [address] [place], [address] Comment 20/10 cmH2O Normal [facility] Comment on above: Performed By: #### L 9000.0800 ####[facility] [address] [place], [address] FI02 40.0 Normal [facility] Comment on above: Performed By: #### L 9000.0800 ####[facility] [address] [place], [address] HCO3 (Bld) [Moles/Vol] 28.9 mmol/L High 22-26 [facility] Comment on above: Performed By: #### L 9000.0800 ####[facility] [address] [place], [address] Mode Not entered Normal [facility] Comment on above: Performed By: #### L 9000.0800 ####[facility] [address] [place], [address] O2 Delivery Dev BiPAP Normal [facility] Comment on above: Performed By: #### L 9000.0800 ####[facility] [address] [place], [address] pCO2 60.6 mmHg High 35-45 [facility] Comment on above: Performed By: #### L 9000.0800 ####[facility] [address] [place], [address] pH (Bld) 7.29 [pH] Low 7.35-7.45 [facility] Comment on above: Performed By: #### L 9000.0800 ####[facility] [address] [place], [address] PO2 81 mmHG Normal 75-100 [facility] Comment on above: Performed By: #### L 9000.0800 ####[facility] [address] [place], [address] RR 12 Normal [facility] Comment on above: Performed By: #### L 9000.0800 ####[facility] [address] [place], [address] SITE L Radial Normal [facility] Comment on above: Performed By: #### L 9000.0800 ####[facility] [address] [place], [address] SO2 94 Low 95-99 [facility] Comment on above: Performed By: #### L 9000.0800 ####[facility] [address] [place], [address] Blood bicarbonate measuremen tOrdered By: Gabriel Rucker on 06-13-2024 Blood Gas Bicarbonate Actual 28.9 mmol/L High 22-26 [facility] Blood cultureOrdered By: Michaela Rucker on 06-13-2024 Bacteria identified Cx Nom (Bld) No growth in 5 days. [facility] CBC W/Diff, Automatedon 04-0 ATYPICAL LYMPH 2+ Normal [facility] Comment on above: Performed By: #### L 100.0100, L300.8000, L500.2500 ####[facility] [address] [place], [address] REACTIVE LYMPH 1+ Normal [facility] Comment on above: Performed By: #### L 100.0100, L300.8000, L500.2500 ####[facility] [address] [place], [address] Carbon dioxide, total [Moles /volume] in Central venous bloodOrdered By: Gabriel Rucker on 06-13-2024 CO2 [Moles/Vol] 26.5 mmol/L 21.0-32.0 [facility] Chest 1 View (Portable)on Chest 1 View (Portable) Normal [facility] Chloride assayOrdered By: Zena Rucker on 06-13-2024 Chloride [Moles/Vol] 104 mmol/L 98-108 [facility] D-Dimer Quantitative (DVT/PE )on 06-13-2024 D-DIMER QUANT 1.63 FEU/ug/m Invalid Interpretation Code 0.27-0.49 [facility] Comment on above: Order Comment: CRITI RUDI VALUE CALLED TO AL EARLY2007 Shandra Meier.RESULTS READ BACK BY SAME. Result Comment: D-Di pearl ELEVATED (>0.49): Additional studies and clinicalassessments are indicated to conclude diagnosis of:Deep Vein Thrombosis (DVT) or Pulmonary Embolism (PE) Performed By: #### L 100.0100, L300.8000, L500.2500 ####[facility] [address] [place], [place], [address] D-dimer measurement for deep venous thrombosisOrdered By: Gabriel Rucker on 06-13-2024 D-Dimer Quantitative (PE/DVT) 1.63 FEU/ug/m High 0.27-0.49 [facility] Comment on above: D-Dimer ELEVATED (>0 .49): Additional studies and clinicalassessments are indicated to conclude diagnosis of:Deep Vein Thrombosis (DVT) or Pulmonary Embolism (PE) Determination of fraction of inspired oxygenOrdered By: Gabriel Rucker on 06-13-2024 Blood Gas Oxygen Percent 40.0 [facility] Emergency Department Summary on 06-13-2024 Emergency Department Summary Normal [facility] Eosinophil percentageOrdered By: Gabriel Rucker on 06-13-2024 Eosinophils/100 WBC (Bld) 0.7 % 0-5 [facility] Epithelial cells.squamous LM Ql (Urine sed)Ordered By: Estela Staton on 06-13-2024 Epithelial cells.squamous LM.HPF (Urine sed) [#/Area] 0 /[HPF] 5-10 [facility] Erythrocyte distribution wid th (RBC) [Ratio]Ordered By: Gabriel Rucker on 06-13-2024 Erythrocyte distribution width (RBC) [Entitic vol] 50.9 fL High 35.1-43.9 [facility] Erythrocyte distribution wid th ratioOrdered By: Gabriel Rucker on 06-13-2024 Erythrocyte distribution width (RBC) [Ratio] 15.3 % High 11.6-14.6 [facility] Estimation of creatinine alex aranceOrdered By: Gabriel Rucker on 06-13-2024 Estimated Creatinine Clearance Calc 61.75 ml/min 50-250 [facility] GFR/1.73 sq M.predicted bradford g non-blacks MDRD (S/P/Bld) [Vol rate/Area]Ordered By: Gabriel Rucker on 06-13-2024 Estimated GFR (MDRD) Non-Af Amer 49 Low >60 [facility] Comment on above: mL/min/1.73m2 CKD-EP I Creatinine Equation (2020) Glucose Ql (U)Ordered By: Alannah Staton on 06-13-2024 Glucose (U) [Mass/Vol] 1000 mg/dL High Normal [facility] H AND P Exam - Hospitaliston 06-13-2024 H&P Exam - Hospitalist Normal [facility] Hematocrit Auto (Bld) [Volum e fraction]Ordered By: Gabriel Rucker on 06-13-2024 Hematocrit (Bld) [Volume fraction] 53.3 % High 37-47 [facility] Hemoglobin measurementOrdere d By: Gabriel Rucker on 06-13-2024 Hemoglobin (Bld) [Mass/Vol] 16.1 g/dL High 12.0-15.0 [facility] Immature granulocytes/100 WB C Auto (Bld)Ordered By: Gabriel Rucker on 06-13-2024 Immature granulocytes/100 WBC (Bld) 0.300 % 0.0-0.9 [facility] Comment on above: IG% - Immature Granu locytes (promyelocytes, myelocytes and metamyelocytes) > 1% indicates that a LEFT SHIFT is Present. Influenza virus A and B and SARS-CoV-2 (COVID-19) and Respiratory syncytial virus RNAOrdered By: Gabriel Rucker on 06-13-2024 SARS-CoV-2 (COVID-19) RNA SAMMY+probe Ql (Unsp spec) [facility] Ketones Test strip Ql (U)Ord ered By: Estela Staton on 06-13-2024 Ketones Ql (U) Negative Negative [facility] L499.0042on 06-13-2024 Trop T High Sen 45 ng/L High <=14 [facility] Comment on above: Performed By: #### L 499.0042 ####[facility] [address] [place], [address] L501.4021on 06-13-2024 Trop T High Sen 34 ng/L High <=14 [facility] Comment on above: Performed By: #### L 501.4021, L503.6005, M200.1000, L503.7505 ####[facility] [address] [place], [address] L503.7505on 06-13-2024 Natriuretic peptide B (Bld) [Mass/Vol] 22842 pg/mL High <=1800 [facility] Comment on above: Result Comment: Hear t Failure Unlikely: < 300 pg/mLHeart Failure Likely< 50 Years: > 450 pg/mL50-75 Years: > 900 pg/mL>75 Years: > 1800 pg/mL Performed By: #### L 501.4021, L503.6005, M200.1000, L503.7505 ####[facility] [address] [place], [place], [id number] Laboratory - Chemistry and C hemistry - challengeOrdered By: Gabriel Rucker on 06-13-2024 Natriuretic peptide B (Bld) [Mass/Vol] 28004 pg/mL High <1800 [facility] Comment on above: Heart Failure Unlike ly: < 300 pg/mLHeart Failure Likely< 50 Years: > 450 pg/mL50-75 Years: > 900 pg/mL>75 Years: > 1800 pg/mL Lactic Acidon 06-13-2024 Lactate [Moles/Vol] 1.4 mmol/L Normal 0.0-2.0 [facility] Comment on above: Order Comment: Y Performed By: #### L 501.4021, L503.6005, M200.1000, L503.7505 ####[facility] [address] [place], [place], [id number] Lactic acid measurementOrder ed By: Gabriel Rucker on 06-13-2024 Lactate [Moles/Vol] 1.4 mmol/L 0.0-2.0 [facility] Lymphocytes Auto (Unsp spec) [#/Vol]Ordered By: Gabriel Rucker on 06-13-2024 Lymphocytes (Bld) [#/Vol] 8.27 10*3/uL High 0.83-4.51 [facility] Lymphocytes/100 WBC Auto (Un sp spec)Ordered By: Gabriel Rucker on 06-13-2024 Lymphocytes/100 WBC (Bld) 53.9 % High 19-41 [facility] M100.678on 06-13-2024 M100.678 Pending SARS-CoV-2 (COVID 19) Negative INFLUENZA A Negative INFLUENZA B Negative RSV PCR Negative Normal [facility] Comment on above: Performed By: #### M 100.678 ####[facility] [address] [place], [address] MCV (mean corpuscular volume ) determinationOrdered By: Gabriel Rucker on 06-13-2024 MCV (RBC) [Entitic vol] 91.3 fL 81-99 [facility] Magnesiumon 06-13-2024 Magnesium [Mass/Vol] 1.6 mg/dL Normal 1.5-2.2 [facility] Comment on above: Order Comment: Comme nts: may add to ED labs Performed By: #### L 501.5200 ####[facility] [address] [place], [place], [id number] Magnesium (Unsp spec) [Mass/ Vol]Ordered By: Estela Staton on 06-13-2024 Magnesium [Mass/Vol] 1.6 mg/dL 1.5-2.2 [facility] Mean corpuscular hemoglobin (MCH) determinationOrdered By: Gabriel Rucker on 06-13-2024 MCH (RBC) [Entitic mass] 27.6 pg 27.0-32.0 [facility] Mean corpuscular hemoglobin concentration (MCHC) determinationOrdered By: Gabriel Rucker on 06-13-2024 MCHC (RBC) [Mass/Vol] 30.2 g/dL Low 32-36 [facility] Mean platelet volume determi nationOrdered By: Gabriel Rucker on 06-13-2024 Platelet mean volume (Bld) [Entitic vol] 9.4 fL 6.2-12.0 [facility] Microscopic analysis of urin e for red blood cells (RBC)Ordered By: Estela Staton on 06-13-2024 Urine RBC 0-5 SEEN /hpf 0-5 [facility] Monocyte percentageOrdered B y: Gabriel Rucker on 06-13-2024 Monocytes/100 WBC (Bld) 4.3 % 0-10 [facility] Mucus LM Ql (Urine sed)Order ed By: Estela Staton on 06-13-2024 Mucus Ql (Urine sed) 0 SEEN /hpf [facility] Neutrophil percentageOrdered By: Gabriel Rucker on 06-13-2024 Neutrophils/100 WBC (Bld) 40.5 % Low 47-70 [facility] Nitrite Test strip Ql (U)Ord ered By: Estela Staton on 06-13-2024 Nitrite Ql (U) Positive High Negative [facility] No Panel InformationOrdered By: Gabriel Rucker on 06-13-2024 Blood Gas Clinical Comments 20/10 cmH2O [facility] Blood Gas Respiration Rate 12 [facility] Blood Gas Sample Site L Radial [facility] Blood Gas Specimen Type ART [facility] Blood Gas Vent Mode Not entered [facility] Oxygen Delivery Device BiPAP [facility] Troponin T High Sensitivity 34 ng/L High <14 [facility] Nucleated red blood cell per centageOrdered By: Gabriel Rucker on 06-13-2024 Nucleated RBC/100 WBC (Bld) [Ratio] 0 % 0-5 [facility] Oxygen saturation measuremen tOrdered By: Gabriel Rucker on 06-13-2024 Blood Gas Oxygen Saturation 94 % Low 95-99 [facility] Partial pressure of carbon d ioxide measurementOrdered By: Gabriel Rucker on 06-13-2024 Arterial Blood Partial Pressure CO2 60.6 mmHg High 35-45 [facility] Partial pressure of oxygen m easurementOrdered By: Gabriel Rucker on 06-13-2024 Arterial Blood Partial Pressure O2 81 mmHG 75-100 [facility] Platelet countOrdered By: Zena Rucker on 06-13-2024 Platelets (Bld) [#/Vol] 231 10*3/uL 150-450 [facility] Potassium (Unsp spec) [Mass/ Vol]Ordered By: Gabriel Rucker on 06-13-2024 Potassium [Moles/Vol] 4.2 mmol/L 3.3-5.1 [facility] Protein Test strip Ql (U)Ord ered By: Estela Staton on 06-13-2024 Protein Ql (U) 100 mg/dl High Negative [facility] RBC Auto (Bld) [#/Vol]Ordere d By: Gabriel Rucker on 06-13-2024 RBC (Bld) [#/Vol] 5.84 10*6/uL High 4.2-5.4 [facility] Reactive lymphocyte countOrd ered By: Gabriel Rucker on 06-13-2024 Reactive Lymphocytes 1+ [facility] Respiratory pathogens DNA an d RNA panel SAMMY+probe (Resp)Ordered By: Estela Staton on 06-13-2024 Respiratory Panel (PCR) [facility] Serum creatinine measurement (mass/volume)Ordered By: Gabriel Rucker on 06-13-2024 Creatinine [Mass/Vol] 1.14 mg/dL 0.70-1.20 [facility] Serum glucose measurement (m ass/volume)Ordered By: Gabriel Rucker on 06-13-2024 Glucose [Mass/Vol] 154 mg/dL High 70-99 [facility] Serum or plasma calcium kezia urement (mass/volume)Ordered By: Gabriel Rucker on 06-13-2024 Calcium [Mass/Vol] 9.1 mg/dL 7.6-11.0 [facility] Serum or plasma urea nitroge n measurement (mass/volume)Ordered By: Gabriel Rucker on 06-13-2024 Urea nitrogen [Mass/Vol] 28 mg/dL High 4-19 [facility] Sodium levelOrdered By: Brittny Rucker on 06-13-2024 Sodium [Moles/Vol] 141 mmol/L 133-145 [facility] Total carbon dioxide measure mentOrdered By: Gabriel Rucker on 06-13-2024 Blood Gas Total CO2 31 mmol/L [facility] Troponin T.cardiac High sens itivity method [Mass/Vol]Ordered By: Gabriel Rucker on 06-13-2024 Troponin T High Sensitivity 2 Hour 45 ng/L High <14 [facility] Urinalysis, Completeon 06-13 BACTERIA 2+ /hpf Normal None Seen [facility] Comment on above: Order Comment: [facility] SPECIMEN Performed By: #### L 400.0001 ####[facility] [address] [place], [address] EPI,SQUAMOUS 0-5 SEEN Normal 5-10 [facility] Comment on above: Order Comment: SHAHBAZ TER SPECIMEN Performed By: #### L 400.0001 ####[facility] [address] [place], [address] RBC 0-5 SEEN Normal 0-5 [facility] Comment on above: Order Comment: SHAHBAZ TER SPECIMEN Performed By: #### L 400.0001 ####[facility] [address] [place], [address] WBC >100 SEEN Normal 0-5 [facility] Comment on above: Order Comment: SHAHBAZ TER SPECIMEN Performed By: #### L 400.0001 ####[facility] [address] [place], [address] YEAST 1+ /hpf Normal None Seen [facility] Comment on above: Order Comment: SHAHBAZ TER SPECIMEN Performed By: #### L 400.0001 ####[facility] [address] [place], [address] Mucus Ql (Urine sed) 0 SEEN Normal [facility] Comment on above: Order Comment: SHAHBAZ TER SPECIMEN Performed By: #### L 400.0001 ####[facility] [address] [place], [address] Urine blood detectionOrdered By: Estela White on 06-13-2024 Urine Occult Blood 25 /ul High Negative [facility] Urine clarityOrdered By: Aut umn White on 06-13-2024 Clarity (U) Sl. Cloudy Clear [facility] Urine color determinationOrd ered By: White on 06-13-2024 Color (U) Yellow Yellow [facility] Urine leukocyte esterase det ection by dipstickOrdered By: White on 06-13-2024 Leukocyte esterase Test strip Ql (U) 500 /ul High Negative [facility] Urine pHOrdered By: Estela W alea on 06-13-2024 pH (U) 6.0 [pH] 5.0 - 8.0 [facility] Urine sediment bacteria coun t by microscopy (number/high power field)Ordered By: Estela Brionna on 06-13-2024 Bacteria LM.HPF (Urine sed) [#/Area] 2 /[HPF] None Seen [facility] Urine specific gravity measu rementOrdered By: Estela Brionna on 06-13-2024 Specific gravity (U) [Rel density] 1.015 1.002-1.030 [facility] Urobilinogen Ql (U)Ordered B y: Estela Staton on 06-13-2024 Urine Urobilinogen Normal mg/dl Normal [facility] Venous Duplex Imag/Gregg Extre mon 06-13-2024 Venous Duplex Imag/Gregg Extrem Normal [facility] White blood cell (WBC) count Ordered By: Gabriel Rucker on 06-13-2024 WBC (Bld) [#/Vol] 15.4 10*3/uL High 4.4-11.0 [facility] White blood cell countOrdere d By: Estela White on 06-13-2024 Urine WBC >100 SEEN /hpf 0-5 [facility] Yeast LM.HPF (Urine sed) [#/ Area]Ordered By: Estela Brionna on 06-13-2024 Urine Yeast 1+ /hpf None Seen [facility] pH (Unsp spec)Ordered By: Zena Rucker on 06-13-2024 Blood Gas pH 7.29 Low 7.35-7.45 [facility] CNOVon 12-03-2016 CNOV Office Visit (AGPOB1) BETO HUNT ([id number]) 1945 F NFRDate Time Provider Department12/03/16 2:45 PM MARQUES TORRES During your visit today, we recorded the following information about you: Respiration Weight Height 16/minute 172.4 kg 1.6 Magi Larson LPN 12/07/2016 5:22 PM SignedREVIEW OF SYSTEMS:GENERAL: [...] for excessive bleeding, clots, bleeding disorders.Sameera Naylor BENMike 12/07/2016 5:22 PM SignedDOS: 05/25/16POD: 6 monthsPOV: [...] Carpal tunnel syndrome of left wrist- Deformity, [place] neck, finger 02/22/2012- GERD (gastroesophageal reflux disease)- [...] take one tab at 8am and one rt7ypflzifbjkyxadws 2.5 % cream Apply 1 application to [...] to follow up, as she lives in [place],and has limited family resources. Plan to discuss [...] right ankle with routine healing, subsequent encounter [F36.459F]Order(s):XR ANKLE GENERAL 3V AP/LAT/OBL RT [[id number]] Order #: [id number] as of 12/03/2016 Sig: LANTUS 100 UNIT/ML [...] 40 MG/0.4 ML SUBCUTANEOUS SYRINGE >> Sima Larson LPN 12/03/2016 2:40 PM >> SIMA LARSON LPN TueDec 03, 2016 2:40 PM Patient not taking OXYCODONE 5 MG CAPSULE >> Sima Larson LPN 12/03/2016 2:41 PM >> SIMA LARSON LPN Dec 03, 2016 2:41 PM Patient not takingProblem [...] FOR* Morbid obesity [E66.01] INVALID FOR* Cystocele [NFW9621] INVALID FOR* Tracheostomy in place (HCC) [Z93.0] INVALID FOR*11/18/2015 Hypertension [I10] INVALID FOR* HTN (hypertension) [I10] INVALID FOR*12/11/2011 Deformity, [place] neck, finger [M20.039] INVALID FOR* Trigger thumb [...] for appointment.Follow-up and Disposition History RecordedEncounter Number: [id number] Status:Closed by MARQUES TORRES DPM on 12/07/16 [facility] PROGRESSon 12-03-2016 PROGRESS HNO ID: [id number]: June (Res) NelsonService: (none)Author Type: ResidentType: Progress [...] new balance shoes. Patient has transferred from [facility], and states she is performing home PT exercises. She has finishedfull course of PT at this time. Denies stiffness to the right ankle.Denies any current nausea, vomiting, fever, chills, shortness of breath,chest pain or calf pain. Patient is diabetic, and states blood sugars arewell-controlled. Denies any other pedal complaintsPAST MEDICAL HISTORYDiagnosis Date- Ankle fracture, right- Carpal tunnel syndrome of left wrist- Deformity, [place] neck, finger 02/22/2012- GERD (gastroesophageal reflux disease)- [...] of BreathObjective:[facility] and athleticshoes.Problem focus examination [...] ability to follow [place], [place], and [place] family [place]. Plan to discuss post-operativestatus with Dr. Bartlett, and we will decide if patient needs immediatefollow up.Sameera Naylor DPM PGY-3I personally saw and evaluated the patient. I reviewed the resident'snote. I agree with the resident's assessment and plan unless otherwisenoted.Marques Torres DPM, FACFAS [facility] PROGRESS HNO ID: [id number]: Sima (Chester) LoveService: (none)Author Type: LICENSED NURSEType: Progress NotesFiled: 12/07/2016 [...] Negative for excessive bleeding, clots, bleeding disorders. [facility] CNOVon 10-22-2016 CNOV Office Visit (AGPOB1) BETO HUNT ([id number]) 1945 F NFRDate Time Provider Department8/11/17 1:00 PM MARQUES TORRES AGPOB1 During your [...] shoes. Patient has been residing at [facility]. Denies any current nausea, vomiting, fever, chills, shortness ofbreath, chest pain or calf pain. Patient is diabetic, and states blood sugarsare well-controlled. Denies any other pedal complaintsPAST MEDICAL HISTORYDiagnosis Date- Ankle fracture, right- Carpal tunnel syndrome of left wrist- Deformity, [place] neck, finger 02/22/2012- GERD (gastroesophageal reflux disease)- [...] take one tab at 8am and one ui3tmSMVVFFAWND PRESCRIPTION CPAP SUPPLIES, TUBING, FILTERS, MASK DX [...] BreathObjective:Patient presents NWB in stretcher today from [facility] in lace up ankle brace andathletic shoes.Problem [...] otherwise noted.-Patient is okay to discharge from [facility] from podiatry standpoint.Progress notes and recommendations were noted in patient's paper chart.-Continue physical therapy exercises.-Activities as tolerated.-She will follow up in 6 weeks.Sameera Naylor DPM PGY-3I personally saw and evaluated the patient. I reviewed the resident's note. Karthikeyan with the resident's assessment and plan unless otherwise noted.Marques Torres DPM, FACFASAllergies As of Date: 10/22/2016 Noted Allergy ReactionLISINOPRIL 06/24/2011 3 - CoughPOLLEN 12/13/2012 9 - Itching Comments: flowersSMOKE 10/06/2005 12 - Shortness of BreathDate Reviewed: 10/22/2016Reviewed by: Courtney eSlf) - Fully AssessedReason for Visit: Follow Up [171] Cmt: RIGHT ANKLE PAINPrimary Visit Diagnosis:Uncontrolled type 2 diabetes mellitus without complication, with long-term current use of insulin ([facility]) [E11.65, Z79.4] Other Visit Diagnosis:Closed right ankle fracture, with routine healing, subsequent encounter [D73.065D]Order(s):XR ANKLE COMP M3V (AG,AV,EU,FV,HL,ANTONIA,MM,SP ) [[id number]] Order #: [id number] as of 10/22/2016 Sig: DOCUSATE SODIUM 100 [...] FOR* Morbid obesity [E66.01] INVALID FOR* Cystocele [AVS0587] INVALID FOR* Tracheostomy in place (HCC) [Z93.0] INVALID FOR*11/18/2015 Hypertension [I10] INVALID FOR* HTN (hypertension) [I10] INVALID FOR*12/11/2011 Deformity, [place] neck, finger [M20.039] INVALID FOR* Trigger thumb [...] of Service: EST PATIENT VISIT LEVEL 3 [[id number]]Disposition: Return in about 6 weeks (around 12/03/2016).LOS history recordedFollow-up and Disposition History RecordedEncounter Number: [id number] Status:Closed by MARQUES TORRES DPM on 10/26/16 Normal [facility] PROGRESSon 10-22-2016 PROGRESS HNO ID: [id number]: Marques TorresSerramireze: (none)Author Type: PhysicianType: Progress NotesFiled: 10/26/2016 9:04 [...] balance shoes. Patient has been residing at [facility]. Denies any current nausea, vomiting, fever, chills,shortness of breath, chest pain or calf pain. Patient is diabetic, andstates blood sugars are well-controlled. Denies any other pedalcomplaintsPAST MEDICAL HISTORYDiagnosis Date- Ankle fracture, right- Carpal tunnel syndrome of left wrist- Deformity, [place] neck, finger 02/22/2012- GERD (gastroesophageal reflux disease)- [...] take one tab at 8am andone at 5pOMPOUNDED PRESCRIPTION CPAP SUPPLIES, TUBING, FILTERS, MASK DX [...] BreathObjective:Patient presents NWB in stretcher today from [facility] in lace up ankle braceand athletic shoes.Problem [...] otherwise noted.-Patient is okay to discharge from [facility] from podiatry standpoint.Progress notes and recommendations were noted in patient's paper chart.-Continue physical therapy exercises.-Activities as tolerated.-She will follow up in 6 weeks.Sameera Naylor DPM PGY-3I personally saw and evaluated the patient. I reviewed the resident'snote. I agree with the resident's assessment and plan unless otherwisenoted.Marques Torres DPM, FACFAS [facility] PROGRESS HNO ID: [id number]: Courtney Jennings (Yanci)Service: (none)Author Type: Medical AssistantType: [...] Negative for excessive bleeding, clots, bleeding disorders. [facility] CNOVon 09-10-2016 CNOV Office Visit (AGPOB1) BETO HUNT ([id number]) 1945 F NFRDate Time Provider Department09/10/16 2:30 [...] Carpal tunnel syndrome of left wrist- Deformity, [place] neck, finger 02/22/2012- GERD (gastroesophageal reflux disease)- [...] take one tab at 8am and one zv1hywpiyrzxidfssdf 2.5 % cream Apply 1 application to affected area twice daily.Apply to affected area sparingly. Right elbow and neckfurosemide (LASIX) 40 mg tablet Take 0.5 tablets by mouth once daily.No current facility-administered medications for this visit.ALLERGIESAllergen Reactions- Lisinopril Cough- Pollen Itching fenton- Smoke Shortness of BreathObjective:Patient presents NWB in [facility] today for nursing facility.Problem focus examination to [...] right, closed, with routine healing, subsequent encounter [A75.283M] Other Visit Diagnoses:Morbid obesity, unspecified obesity type ([facility]) [E66.01] Uncontrolled type 2 diabetes mellitus without complication, with long-term current use of insulin ([facility]) [E11.65, Z79.4]Order(s):XR ANKLE COMP M3V (AG,AV,EU,FV,HL,ANTONIA,MM,SP ) [[id number]] Order #: [id number] AFO ANKLE GAUNTLET, CUSTOM FITTED [[id number]] Order #: [id number] as of 09/10/2016 Sig: DOCUSATE SODIUM 100 [...] FOR* HTN (hypertension) [I10] INVALID FOR*12/11/2011 Deformity, [place] neck, finger [M20.039] INVALID FOR* Trigger thumb [...] of Service: EST PATIENT VISIT LEVEL 3 [[id number]]Disposition: Return in about 6 weeks (around 10/22/2016) for with Dr. Torres.Follow-up and Disposition History RecordedEncounter Number: [id number] Status:Closed by ЕКАТЕРИНА BARTLETT DPM on 09/15/16 [facility] PROGRESSon 09-10-2016 PROGRESS HNO ID: [id number]: Brigid Hebert) LittleService: (none)Author Type: LICENSED NURSEType: [...] for excessive bleeding, clots, bleeding disorders. Normal [facility] PROGRESS HNO ID: [id number]: Екатерина Osullivan: (none)Author Type: PhysicianType: Progress NotesFiled: [...] Carpal tunnel syndrome of left wrist- Deformity, [place] neck, finger 02/22/2012- GERD (gastroesophageal reflux disease)- [...] PT.Follow up 6 weeks.Екатерина Bartlett DPM Normal [facility] Vital Signs Date Time Vital Sign Value Performing Clinician Facility 10-29-2024 22:00-0400 Body temperature 95.2 [degF] Dr. Socrates Spangler MD Work Phone: [facility] 10-29-2024 22:00-0400 Diastolic blood pressure 53 mm[Hg] Dr. Socrates Spangler MD Work Phone: [facility] 10-29-2024 22:00-0400 Heart rate 49 /min Dr. Socrates Spangler MD Work Phone: [facility] 10-29-2024 22:00-0400 Inhaled oxygen concentration 28 % Dr. Socrates Spangler MD Work Phone: [facility] 10-29-2024 22:00-0400 Respiratory rate 18 /min Dr. Socrates Spangler MD Work Phone: [facility] 10-29-2024 22:00-0400 SaO2% (BldA) [Mass fraction] 98 % Dr. Socrates Spangler MD Work Phone: [facility] 10-29-2024 22:00-0400 Systolic blood pressure 108 mm[Hg] Dr. Socrates Spangler MD Work Phone: [facility] 10-29-2024 19:00-0400 Inhaled oxygen flow rate 3 L/min Dr. Socrates Spangler MD Work Phone: [facility] 10-29-2024 14:59-0400 Body height 167.[address] Socrates Spangler MD Work Phone: [facility] 10-29-2024 14:59-0400 Body mass index (BMI) [Ratio] 71.1 kg/m2 Dr. Socrates Spangler MD Work Phone: [facility] 10-29-2024 14:59-0400 Body weight [address] Socrates Spangler MD Work Phone: [facility] 10-24-2024 11:11-0400 Body temperature 97.7 [degF] Dr. Socrates Spangler MD Work Phone: [facility] 10-24-2024 11:11-0400 Diastolic blood pressure 46 mm[Hg] Dr. Socrates Spangler MD Work Phone: [facility] 10-24-2024 11:11-0400 Heart rate 89 /min Dr. Socrates Spangler MD Work Phone: [facility] 10-24-2024 11:11-0400 Inhaled oxygen flow rate 4 L/min Dr. Socrates Spangler MD Work Phone: [facility] 10-24-2024 11:11-0400 Respiratory rate 18 /min Dr. Socrates Spangler MD Work Phone: [facility] 10-24-2024 11:11-0400 SaO2% (BldA) [Mass fraction] 92 % Dr. Socrates Spangler MD Work Phone: [facility] 10-24-2024 11:11-0400 Systolic blood pressure 100 mm[Hg] Dr. Socrates Spangler MD Work Phone: [facility] 10-24-2024 03:58-0400 Body mass index (BMI) [Ratio] 71.7 kg/m2 Dr. Socrates Spangler MD Work Phone: [facility] 10-24-2024 03:58-0400 Body weight 201.[address] Socrates Spangler MD Work Phone: [facility] 10-19-2024 10:59-0400 Body height 167.[address] Socrates Spangler MD Work Phone: [facility] 10-18-2024 19:00-0400 Heart rate 55 /min Dr. Socrates Spangler MD Work Phone: [facility] 10-18-2024 19:00-0400 SaO2% (BldA) [Mass fraction] 100 % Dr. Socrates Spangler MD Work Phone: [facility] 10-18-2024 18:28-0400 Body temperature 98.6 [degF] Dr. Socrates Spangler MD Work Phone: [facility] 10-18-2024 18:28-0400 Diastolic blood pressure 62 mm[Hg] Dr. Socrates Spangler MD Work Phone: [facility] 10-18-2024 18:28-0400 Respiratory rate 12 /min Dr. Socrates Spangler MD Work Phone: [facility] 10-18-2024 18:28-0400 Systolic blood pressure 125 mm[Hg] Dr. Socrates Spangler MD Work Phone: [facility] 10-18-2024 14:48-0400 Body height 167.[address] Socrates Spangler MD Work Phone: [facility] 10-18-2024 14:48-0400 Body mass index (BMI) [Ratio] 71.2 kg/m2 Dr. Socrates Spangler MD Work Phone: [facility] 10-18-2024 14:48-0400 Body weight 200.[address] Socrates Spangler MD Work Phone: [facility] 10-18-2024 14:48-0400 Inhaled oxygen flow rate 2 L/min Dr. Socrates Spangler MD Work Phone: [facility] 06-19-2024 16:27-0400 Body temperature 97.7 [degF] Dr. Socrates Spangler MD Work Phone: [facility] 06-19-2024 16:27-0400 Diastolic blood pressure 67 mm[Hg] Dr. Socrates Spangler MD Work Phone: [facility] 06-19-2024 16:27-0400 Heart rate 61 /min Dr. Socrates Spangler MD Work Phone: [facility] 06-19-2024 16:27-0400 Inhaled oxygen flow rate 2 L/min Dr. Socrates Spangler MD Work Phone: [facility] 06-19-2024 16:27-0400 Respiratory rate 18 /min Dr. Socrates Spangler MD Work Phone: [facility] 06-19-2024 16:27-0400 SaO2% (BldA) [Mass fraction] 95 % Dr. Socrates Spangler MD Work Phone: [facility] 06-19-2024 16:27-0400 Systolic blood pressure 150 mm[Hg] Dr. Socrates Spangler MD Work Phone: [facility] 06-19-2024 03:43-0400 Body mass index (BMI) [Ratio] 62.3 kg/m2 Dr. Socrates Spangler MD Work Phone: [facility] 06-19-2024 03:43-0400 Body weight 175.[address] Socrates Spangler MD Work Phone: [facility] 06-14-2024 11:45-0400 Body height 167.[address] Socrates Spangler MD Work Phone: [facility] 06-14-2024 03:15-0400 Inhaled oxygen concentration 30 % Dr. Socrates Spangler MD Work Phone: [facility] 06-13-2024 23:00-0400 Body temperature 98.5 [degF] Dr. Socrates Spangler MD Work Phone: [facility] 06-13-2024 23:00-0400 Diastolic blood pressure 65 mm[Hg] Dr. Socrates Spangler MD Work Phone: [facility] 06-13-2024 23:00-0400 Heart rate 60 /min Dr. Socrates Spangler MD Work Phone: [facility] 06-13-2024 23:00-0400 Inhaled oxygen concentration 40 % Dr. Socrates Spangler MD Work Phone: [facility] 06-13-2024 23:00-0400 Respiratory rate 24 /min Dr. Socrates Spangler MD Work Phone: [facility] 06-13-2024 23:00-0400 SaO2% (BldA) [Mass fraction] 96 % Dr. Socrates Spangler MD Work Phone: [facility] 06-13-2024 23:00-0400 Systolic blood pressure 135 mm[Hg] Dr. Socrates Spangler MD Work Phone: [facility] 06-13-2024 19:39-0400 Body height 152.[address] Socrates Spangler MD Work Phone: [facility] 06-13-2024 19:39-0400 Body mass index (BMI) [Ratio] 77.5 kg/m2 Dr. Socrates Spangler MD Work Phone: [facility] 06-13-2024 19:39-0400 Body weight 180.[address] Socrates Spangler MD Work Phone: [facility] Encounters Encounter Date Encounter Type Care Provider Facility Start: 10-29-2024 Evaluation and management of inpatient Dr. Savanna Suero MD -Intensive Care Unit Work Phone: Start: 10-24-2024 Non-patient / Non-visit Dr. Haydee Sanchez MD [facility] Work Phone: Start: 10-23-2024 Non-patient / Non-visit Dr. Haydee Sanchez MD [facility] Work Phone: Start: 10-22-2024 Non-patient / Non-visit Dr. Haydee Sanchez MD [facility] Work Phone: Start: 10-21-2024 Non-patient / Non-visit Dr. Haydee Sanchez MD [facility] Work Phone: Start: 10-20-2024 Non-patient / Non-visit Dr. Haydee Sanchez MD [facility] Work Phone: Start: 10-19-2024 Non-patient / Non-visit Dr. Estela Staton MD [facility] Work Phone: Start: 10-18-2024 Non-patient / Non-visit Dr. Nico pacheco [facility] Work Phone: Start: 10-18-2024 ambulatory Nico Garcia Facility:[facility] Start: 10-18-2024 End: 10-24-2024 Evaluation and management of inpatient Dr. Nico Garcia DO -Progressive Care Unit Work Phone: Start: 06-18-2024 Non-patient / Non-visit Dr. Savanna kowalski MD -[facility] Work Phone: Start: 06-18-2024 End: 06-18-2024 ambulatory Socrates Spangler Facility:[facility] Start: 06-17-2024 Non-patient / Non-visit Dr. Azam Montgomery MD -[facility] Work Phone: Start: 06-16-2024 Non-patient / Non-visit Dr. Azam Montgomery MD -[facility] Work Phone: Start: 06-15-2024 Non-patient / Non-visit Dr. Azam Montgomery MD [facility] Work Phone: Start: 06-14-2024 Non-patient / Non-visit Dr. Azam Montgomery MD -[facility] Work Phone: Start: 06-14-2024 ambulatory Socrates Spangler Facility:[facility] Start: 06-14-2024 Non-patient / Non-visit Dr. Calderón [facility] Start: 06-13-2024 End: 06-19-2024 Evaluation and management of inpatient Dr. Estela Staton MD -[facility] Unit Work Phone: Start: 06-13-2024 ambulatory Estela Staton Facility :[facility] Start: 06-13-2024 Non-patient / Non-visit Dr. Estela Staton MD -[facility] Work Phone: Start: 12-03-2016 End: 12-03-2016 Ambulatory MARQUES TORRES [facility] Start: 10-22-2016 End: 10-22-2016 Ambulatory MARQUES TORRES [facility] Start: 09-10-2016 End: 09-10-2016 Ambulatory ЕКАТЕРИНА BARTLETT [facility] Start: 05-24-2016 End: 05-27-2016 Evaluation and management of inpatient ЕКАТЕРИНА BARTLETT Facility:[facility] Procedures Date Procedure Procedure Detail Performing Clinician Start: 10-29-2024 Carbon dioxide measu rement, partial pressure Dr. Socrates Spangler MD Work Phone: Start: 10-29-2024 Gases blood o2 satur ation only direct kezia Dr. Socrates Spangler MD Work Phone: Start: 10-29-2024 Measurement of parti al pressure of oxygen in blood Dr. Socrates Spangler MD Work Phone: Start: 10-29-[address] Socrates Spangler MD Work Phone: Start: 10-29-[address] Socrates Spangler MD Work Phone: Start: 10-29-[address] Jocelyne Spangler MD Work Phone: Start: 10-29-2024 Plain chest X-ray Dr. Huber Spangler MD Work Phone: Start: 10-29-2024 Urnls dip stick/tabl et reagent auto microscopy Dr. Socrates Spangler MD Work Phone: Start: 10-29-2024 SARS-CoV-2, Influenz a & RSV (PCR) Dr. Socrates Spangler MD Work Phone: Start: 10-24-[address] Socrates Spangler MD Work Phone: Start: 10-19-[address] Kamilah Spangler MD Work Phone: Start: 10-18-2024 Urnls dip stick/tabl et reagent auto microscopy Dr. Socrates Spangler MD Work Phone: Start: 10-18-[address] Socrates Spangler MD Work Phone: Start: 10-18-2024 Plain chest X-ray Dr. Huber Spangler MD Work Phone: Start: 10-18-[address] Kamilah Spangler MD Work Phone: Start: 06-16-2024 X-ray [...] Treatment Date Care Activity Detail Author Start: 10-29-2024 Plain chest X-ray Chest 1 View (Portable) [facility] Start: 10-29-2024 Legionella pneumophi la Ag [Presence] in Urine [facility] Start: 10-29-2024 Streptococcus pneumo niae antigen assay [facility] Start: 10-29-2024 Verification routine [facility] Start: 10-29-2024 Admission procedure [facility] Start: 10-29-2024 Continuous pulse oximetry [facility] Start: 10-29-2024 Dual pressure sponta neous ventilation support [facility] Start: 10-29-2024 Hospital admission, emergency, from emergency room, medical nature [facility] Start: 10-29-2024 End: 10-29-2024 [facility] Start: 10-29-2024 Bacteria identified in Blood by Culture Blood Culture [facility] Start: 10-29-2024 Bacteria identified in Urine by Culture Urine Culture [facility] Start: 10-24-2024 Patient discharge [facility] Start: 10-20-2024 Oxygen therapy [facility] Start: 10-20-2024 Attention to flatus tube [facility] Start: 10-19-2024 End: 10-20-2024 [facility] Start: 10-19-2024 Wound care [facility] Start: 10-18-2024 Following clinical p athway protocol [facility] Start: 10-18-2024 Assessment of risk o f venous thromboembolism [facility] Start: 10-18-2024 Care regimes management [facility] Start: 10-18-2024 Consultation for treatment [facility] Start: 10-18-2024 Insertion of cathete r into peripheral vein [facility] Start: 10-18-2024 Measuring intake and output [facility] Start: 10-18-2024 Notification of physician [facility] Start: 10-18-2024 Patient referral to dietitian [facility] Start: 10-18-2024 Providing care accor ding to standard [facility] Start: 10-18-2024 Provision of activit y privileges [facility] Start: 10-18-2024 Referral to occupati onal therapist [facility] Start: 10-18-2024 Referral to service [facility] Start: 10-18-2024 End: 10-18-2024 [facility] Start: 10-18-2024 Verification routine [facility] Start: 10-18-2024 Hospital admission, emergency, from emergency room, medical nature [facility] Start: 10-18-2024 Admission procedure [facility] Start: 10-18-2024 End: 10-19-2024 [facility] Start: 10-18-2024 Consultation [facility] Start: 10-18-2024 Bacteria identified in Urine by Culture Urine Culture [facility] Start: 10-18-2024 Patient referral to dietitian [facility] Start: 10-18-2024 [facility] Start: 06-19-2024 Patient discharge [facility] Start: 06-19-2024 [facility] Start: 06-18-2024 Wound care [facility] Start: 06-18-2024 Care planning and pr oblem solving actions [facility] Start: 06-18-2024 Care planning and pr oblem solving actions [facility] Start: 06-16-2024 Referral to hose inspector and patcher [facility] Start: 06-16-2024 [facility] Start: 06-14-2024 [facility] Start: 06-14-2024 Consultation for treatment [facility] Start: 06-14-2024 Following clinical p athway protocol [facility] Start: 06-14-2024 Consultation [facility] Start: 06-13-2024 Application of elast ic bandage [facility] Start: 06-13-2024 Assessment of risk o f venous thromboembolism [facility] Start: 06-13-2024 Care regimes management [facility] Start: 06-13-2024 Elevation of affecte d extremity [facility] Start: 06-13-2024 Fall prevention [facility] Start: 06-13-2024 Inhalation therapy procedure [facility] Start: 06-13-2024 Insertion of cathete r into peripheral vein [facility] Start: 06-13-2024 Introduction of urin florentino catheter [facility] Start: 06-13-2024 Measuring intake and output [facility] Start: 06-13-2024 Notification of physician [facility] Start: 06-13-2024 Oxygen therapy [facility] Start: 06-13-2024 Patient education [facility] Start: 06-13-2024 End: 06-14-2024 Patient referral to dietitian [facility] Start: 06-13-2024 Providing care accor ding to standard [facility] Start: 06-13-2024 Provision of activit y privileges [facility] Start: 06-13-2024 Referral to occupati onal therapist [facility] Start: 06-13-2024 Referral to service [facility] Start: 06-13-2024 End: 06-13-2024 [facility] Start: 06-13-2024 Hospital admission, emergency, from emergency room, medical nature [facility] Start: 06-13-2024 Legionella pneumophi la Ag [Presence] in Urine [facility] Start: 06-13-2024 Streptococcus pneumo niae antigen assay [facility] Start: 06-13-2024 Verification routine [facility] Start: 06-13-2024 Admission procedure [facility] Start: 06-13-2024 Inhalation therapy procedure [facility] Start: 06-13-2024 End: 06-13-2024 [facility] Start: 06-13-2024 Bacteria identified in Blood by Culture Blood Culture [facility] Start: 06-13-2024 Dual pressure sponta neous ventilation support [facility] Patient Education [facility] Work Phone: Patient referral [facility] Work Phone: Respiratory pathogen s DNA and RNA panel - Respiratory specimen by SAMMY with probe detection [facility] Troponin T.cardiac [Mass/volume] in Serum or Plasma by High sensitivity method [facility] Urine culture [facility] Urine culture [facility] Immunizations Immunization Date Immunization Notes Care Provider [facility] 09-03-2021 Covid (Pfizer) Dr. Socrates frias MD Work Phone: [facility] 03-09-2021 Covid (Hemal & Hemal) Dr. Socrates pSangler MD Work Phone: [facility] 11-14-2019 influenza, seasonal, injectable, preservative free Dr. Socrates Spangler MD Work Phone: [facility] 11-22-2016 influenza, injectabl e, quadrivalent, preservative free Dr. Socrates Spangler MD Work Phone: [facility] 05-12-[address] Socrates Spangler MD Work Phone: [facility] 05-12-2016 influenza, high dose seasonal, preservative-free Dr. Socrates Spangler MD Work Phone: [facility] 05-12-2016 pneumococcal conjuga te vaccine, [address] Socrates Spangler MD Work Phone: [facility] 05-12-2016 pneumococcal polysaccharide vaccine, [address] Socrates Spangler MD Work Phone: [facility] 03-14-2016 pneumococcal conjuga te vaccine, [address] Socrates Spangler MD Work Phone: [facility] 2014 influenza, high dose seasonal, preservative-free Dr. Socrates Spangler MD Work Phone: [facility] 06-13-2014 pneumococcal conjuga te vaccine, [address] Socrates Spangler MD Work Phone: [facility] 02-14-2014 influenza, injectabl e, quadrivalent, preservative free Dr. Socrates Spangler MD Work Phone: [facility] Payers Date Payer Category Payer Medicare [id number] 2024 Self-pay 2010 Medicaid [id number] 2008 Medicare [id number] 2003 Unknown [id number] Medicare [id number] Unknown [id number] 2.16.8 [id number] Unknown [id number] 2.16.8 [id number] Unknown [id number] 2.16.8 [id number] Unknown [id number] 2.16.8 [id number] Unknown [id number] 2.16.8 [id number] Unknown [id number] 2.16.8 [id number] Unknown [id number] 2.16.8 [id number] Unknown [id number] 2.16.8 [id number] Unknown [id number] 2.16.8 [id number] Unknown [id number] 2.16.8 [id number] Unknown [id number] 2.16.8 [id number] Unknown [id number] 2.16.8 [id number] Unknown [id number] 2.16.8 [id number] Unknown [id number] 2.16.8 [id number] Unknown [id number] 2.16.8 [id number] Unknown [id number] 2.16.8 [id number] Unknown [id number] 2.16.8 [id number] Unknown [id number] 2.16.8 [id number] Social History Date Type Detail Facility Start: 06-13-2024 End: 10-29-2024 Tobacco smoking status NHIS Never smoked tobacco (finding) [facility] Start: 05-12-2016 None None [facility] Start: 05-12-2016 Spouse/ Significant Other Spouse/ Significant Other [facility] Start: 06-13-2024 End: 06-19-2024 Sex Female (finding) [facility] Start: 1945 Sex Assigned At Female [facility] Goals Date Patient Goal Desired Activity /State Functional Status Date Assessment Result Facility 10-24-2024 Functional status Bedrest [facility] Work Phone: 06-19-2024 Functional status Bedrest [facility] Work Phone: Mental Status Date Assessment Result Facility 10-29-2024 Cognitive function Voice/Name [facility] Work Phone: 10-24-2024 Cognitive function Voice/Name [facility] Work Phone: 10-18-2024 Cognitive function Level Of Cons ciousness Awake;Alert;Appropriate;Follow s Commands [facility] Work Phone: 06-19-2024 Cognitive function Voice/Name [facility] Work Phone: Clinical Notes 06-13-2024 to 10-29-2024 Note Date & Type Note Facility 10-29-2024 Discharge summary [facility] 10-29-2024 History and physical note Note Date/Time October 29, 2024 8:59pm [facility] Medical Records Department [address] [place] [address] H&P Exam - Hospitalist 10/29/242019 MR#: [id number] Acct: [id number] Name: TOD HUNT Rep #:[id number] : 1945 78 From: Savanna Suero MD PCP: Dr. Socrates Spangler MD Status:ADM I N Location: ICU ICU01-1 HPI - General General Date of Admission: 10/29/24 Date of Service: 10/29/24 Chief Complaint: AMS HPI Narrative TOD HUNT, is a 78-year-old female with a history of JAYA, GERD, hypothyroidism, diabetes, depression, A-fib [facility] confusion, hypoglycemia, hypoxia. She was discharged 5 days ago and has possibly been having some confusion since that time. Reportedly hypoxic by EMS in the 80s and has started wearing oxygen since her discharge. When she was here recently she was admitted for UTI with debility and weakness but declined skilled care and had home health instead, shewas discharged on the after being admitted for 5 days. In the ED heart rate 47, blood pressure 111/82, respiratory rate 24 and pulse ox 100% on 15 L nonrebreather, temp was found to be 93.2. CBC with normal white blood cell count, hemoglobin 11.6, CMP with a potassium of 5.7 but found to be hemolyzed, BUN of 29 and a creatinine 1.12, glucose 50, TSH 12, INR 4.1, blood gas with a pH 7.23, bicarb of 34, O2 sat 93 and a PCO2 of 80.8, proBNP 10,697 with a Pro-Rudi of 0.06 and a lactic of less than 1. Chest x-ray with mild cardiomegaly anddiffuse pulmonary vascular congestion and possible left retrocardiac opacity. Patient had no signs or symptoms of infection and UA did not seem overtly seem infected, given elevated BNP, x-ray findings and hypoxia there is suspicion for CHF and IV Lasix ordered. There is no indication for IV antibiotics. Due to her low glucose she was given D10 and patient placed on Emily hugger as it was unclear why she was hypothermic. Hospitalist contacted for admission. Patient evaluated bedside. Patient very confused, mostly is not answering questions appropriately, repeat ABG showed slight improvement in pH and PCO2 but now with hypoxia, patient placed on BiPAP and plan for ICU. No family available at bedside to provide additional history. [facility], [facility] Medical History Anxiety Depression Hyperthyroidism Diabetes Non-smoker BiPAP (biphasic positive airway pressure) dependence On home oxygen therapy Congestive heart failure (CHF) Chest pain Hypertension Migraines Contusion of right great toe without damage to nail, initial encounter CHF (congestive heart failure) CKD (chronic kidney disease), stage III Acute hypoxic respiratory failure Hypothyroidism Allergic rhinitis GERD (gastroesophageal reflux disease) Obstructive sleep apnea Hyperlipidemia Hypertension Type 2 diabetes mellitus Morbid obesity Home Medications ?Medication ?Instructions ?Recorded ?Last Taken ?Type atorvastatin 20 mg tablet 20 mg PO QHS cholesterol 03/3005/11/16 22:00 History hydrocortisone 2.5 % topical cream 1 applicatio topica l BID rash 05/12/16 Unknown History metoprolol tartrate 50 mg tablet 25 mg PO BID blood pr essure 05/12/16 05/12/16 08:00 History nystatin 100,000 unit/gram topical 1 applic topical BI D yeast 05/14/16 Unknown Rx powder ([facility]) docusate sodium 100 mg capsule 100 mg PO DAILY stool s oftner 06/16/24 Unknown History pantoprazole 40 mg tablet,delayed 40 mg PO DAILY reflu x 06/16/24 Unknown History release ergocalciferol (vitamin D2) 1,250 1,250 mcg PO QWEEK v itamin 10/18/24 Unknown History mcg (50,000 unit) capsule escitalopram oxalate 10 mg tablet 10 mg PO Q mental health 10/18/24 Unknown History glipizide 10 mg tablet 10 mg PO BID diabetes Unknown History hydroxyzine pamoate 25 mg capsule 25 mg PO DAILY PRN i tching 10/18/24 Unknown History levothyroxine 112 mcg tablet 112 mcg PO DAILY thyroid 10/18/24 Unknown History loratadine 10 mg tablet (Allergy 10 mg PO DAILY allerg ies 10/18/24 Unknown History Relief (loratadine)) magnesium chloride 64 mg 64 mg PO DAILY supplement Unknown History (magnesium chloride) tablet,delayed release (Mag 64) montelukast 10 mg tablet 10 mg PO DAILY allergies 10/05 Unknown History nystatin 100,000 unit/gram topical 1 applic topical DA HERNAN rash 10/18/24 Unknown History cream potassium chloride 10 mEq 10 meq PO DAILY supplement 0 10/18/24 Unknown History tablet,extended release apixaban 5 mg tablet (Eliquis) 5 mg PO BID #60 tabs Unknown Rx Allergy/AdvReac Type Severity Reaction Status Date / Time lisinopril Allergy Unknown Verified 10/29/24 15:04 pollen extracts Allergy Itching Verified 10/29/24 15:04 Family History Mother Diabetes Heart disease Hypertension Father Diabetes Cancer Heart disease Alzheimer dementia Surgical History History of cholecystectomy History of ankle surgery S/P cholecystectomy Social History household members: spouse Smoking Status: Never smoker alcohol intake: never substance use type: does not use ROS ROS Narrative Unable to obtain secondary to mental status Vital Signs Vital Signs Vital Signs: 10/29/24 14:59 10/29/24 15:11 10/29/24 16:01 Temperature 0 F L Temperature Source Oral Pulse Rate 47 L Respiratory Rate 24 H 20 H Respiratory Pattern Blood Pressure 111/82 H 104/59 L Blood Pressure Mean 91 71 Pulse Ox 100 90 Oxygen Delivery Method Non-Rebreather Non-Rebreather Oxygen Flow Rate (L/min) 15 Fraction of Inspired Oxygen (FIO2) 10/29/24 16:03 10/29/24 16:15 10/29/24 16:30 Temperature 93.3 F L Temperature Source Core Pulse Rate 46 L 44 L Respiratory Rate 15 19 H 17 Respiratory Pattern Blood Pressure 100/65 104/54 L 97/66 Blood Pressure Mean 76 69 77 Pulse Ox 97 97 95 Oxygen Delivery Method Nasal Cannula Oxygen Flow Rate (L/min) Fraction of Inspired Oxygen (FIO2) 10/29/24 16:45 10/29/24 17:00 10/29/24 17:00 Temperature 93.3 F L 93.1 F L 93.2 F L Temperature Source Core Core Core Pulse Rate 46 L 48 L 44 L Respiratory Rate 19 H 16 14 Respiratory Pattern Blood Pressure 100/65 106/66 106/66 Blood Pressure Mean 76 79 78 Pulse Ox 96 92 92 Oxygen Delivery Method Nasal Cannula Oxygen Flow Rate (L/min) Fraction of Inspired Oxygen (FIO2) 10/29/24 17:15 10/29/24 17:30 10/29/24 17:45 Temperature 93.1 F L 93.1 F L 93.1 F L Temperature Source Core Core Core Pulse Rate 41 L 45 L 45 L Respiratory Rate 13 13 14 Respiratory Pattern Blood Pressure Blood Pressure Mean Pulse Ox 95 97 97 Oxygen Delivery Method Oxygen Flow Rate (L/min) Fraction of Inspired Oxygen (FIO2) 10/29/24 18:00 10/29/24 18:00 10/29/24 18:15 Temperature 93.2 F L 93.2 F L 93.3 F L Temperature Source Core Core Core Pulse Rate 39 L 45 L 45 L Respiratory Rate 13 15 13 Respiratory Pattern Blood Pressure 100/35 L Blood Pressure Mean 56 Pulse Ox 96 97 97 Oxygen Delivery Method Nasal Cannula Oxygen Flow Rate (L/min) Fraction of Inspired Oxygen (FIO2) 10/29/24 18:17 10/29/24 18:25 10/29/24 19:00 Temperature 93.3 F L 93.3 F L 93.7 F L Temperature Source Core Core Pulse Rate 45 L 45 L 47 L Respiratory Rate 15 15 16 Respiratory Pattern Blood Pressure 100/35 L 100/35 L 103/40 L Blood Pressure Mean 56 56 61 Pulse Ox 97 97 94 Oxygen Delivery Method Nasal Cannula Oxygen Flow Rate (L/min) 3 Fraction of Inspired Oxygen (FIO2) 10/29/24 19:32 10/29/24 20:00 Temperature Temperature Source Pulse Rate 51 L 47 L Respiratory Rate 15 14 Respiratory Pattern Normal Normal Blood Pressure Blood Pressure Mean Pulse Ox 98 99 Oxygen Delivery Method Oxygen Flow Rate (L/min) Fraction of Inspired Oxygen (FIO2) 30 24 Weight Weight: 200 kg Body Mass Index (BMI) 71.1 Physical Exam Narrative General: Patient tired and confused, would wake up and answer questions but mostly in a nonsensical way HEENT: Atraumatic, normocephalic Eyes: Anicteric, normal conjunctiva, extraocular movements grossly intact Neck: Supple Respiratory: Very difficult to auscultate given patient's body habitus, diminished bilaterally Cardiovascular: Sinus bradycardia GI: Soft, protuberant, did not appear in pain on palpation Extremities: Has some 1-2+ bilateral lower extremity pitting edema Musculoskeletal: Moving all extremities in bed Neuro: No overt focal neurological deficits however patient unable to cooperate secondary to mental status Skin: No overt rashes appreciated on my exam Psych: Unable to cooperate secondary to mental status Results Lab / Micro Data 10/29/24 15:29 10/29/24 15:40 Labs: Laboratory Results - last 24 hr 10/29/24 15:17: Urine Color Yellow, Urine Clarity Sl. Cloudy, Urine pH 6.0, Ur Specific Plush 1.020, Urine Protein 100 H, Urine Glucose (UA) Normal, Urine Ketones Negative, Urine Occult Blood 10 H, Urine Nitrite Negative, Urine Bilirubin 1 H, Urine Urobilinogen Normal, Ur Leukocyte Esterase 25 H, Urine RBC 5-10 SEEN, Urine WBC 5-10 SEEN, Ur Squamous Epith Cells 10-25 SEEN, Urine Bacteria 1+, Hyaline Casts 0-5 SEEN, Urine Mucus 0 SEEN, Urine Yeast RARE 10/29/24 15:29: WBC 9.2, RBC 4.57, Hgb 11.6 L, Hct 41.3, MCV 90.4, MCH 25.4 L, MCHC 28.1 L, RDW Std Deviation 55.8 H, RDW Coeff of Ryan 17.4 H, Plt Count 157, MPV 9.3, Immature Gran % (Auto) 0.500, Neut % (Auto) 76.4 H, Lymph % (Auto) 14.7L, Kimball % (Auto) 6.7, Eos % (Auto) 1.5, Baso % (Auto) 0.2, Absolute Neuts (auto)7.0, Absolute Lymphs (auto) 1.35, Nucleated RBC % 0, PT Cancelled, INR Cancelled, APTT Cancelled, Sodium 135, Potassium 5.7 H, Chloride 102, Carbon Dioxide 25.8, Anion Gap 7, BUN 29 H, Creatinine 1.12, Estim Creat Clear Calc 73.10, Est GFR (MDRD) Non-Af 50 L, BUN/Creatinine Ratio 25.8 H, Glucose 50 L, Lactic Acid < 1.0, Calcium 9.1, Total Bilirubin 0.21, AST 24, ALT 14, Alkaline Phosphatase 77, Total Protein 5.6 L, Albumin 2.5 L, Globulin 3.2, Albumin/Globulin Ratio 0.8 L, Procalcitonin 0.06 10/29/24 15:40: Potassium 5.6 H, [place] [address] H, TSH 12.000 H, Free T4 0.90, Free T3 pg/dL 1.6 L 10/29/24 16:29: POC Glucose 49 L 10/29/24 17:19: PT 40.9 H, INR 4.1 H*, APTT 45.7 H 10/29/24 18:14: POC Glucose 105 10/29/24 19:08: POC Glucose 99 Micro: Microbiology 10/29/24 15:40 Mucosa - Nose SARS-CoV-2, Influenza & RSV (PCR) - Final ABG Data ABG results: ABG 10/29/24 10/29/24 16:12 19:22 Specimen Type ART ART Sample Site L Radial R Radial pH 7.23 L 7.26 L Bicarbonate Actual 34.0 H 32.8 H Total CO2 37 35 Base Excess 7 H 6 H O2 Saturation 93 L 82 L O2 % 2.0 2.0 ABG pCO2 80.8 H* 74.0 H* ABG pO2 84 55 L Shirin Test Positive Positive O2 Delivery Device Cannula Cannula Vent Mode Not entered Not entered Crit Call To/Read Back Yes Yes Blood Gas Notified Whom tess Suero Blood Gas Notified Time 16:14:41 19:24:22 Imaging Radiology Impression Chest X-Ray 10/29/24 15:24 IMPRESSION: Mild cardiomegaly and diffuse pulmonary vascular congestion. Left retrocardiac opacity. Reading Location: [facility] Assessment & Plan Assessment/Plan (1) Acute metabolic encephalopathy due to hypoglycemia: PLAN: Plan # Hypothermia, hypoglycemia, sinus bradycardia -Suspect sinus bradycardia is secondary to hypothermia and likely contributed skip hypoglycemia - Unclear underlying etiology of the above, TSH is elevated at 12 but free T4 istechnically within normal limits on the low end of normal - Continue Synthroid, unclear compliance at home - Hold home beta-maycol -Hold home glipizide - Patient with normal white blood cell count, lactic acid within normal limits, Pro-Rudi negative but does have hypoxia and left retrocardiac opacity and thus far no clear explanation for the above, given the persistence despite treating the hypoglycemia feel it is reasonable to treat patient empirically with antibiotics while awaiting culture and any further available data, given the only available identifiable complaints are pulmonary we will treat with Rocephinand azithromycin - Will obtain COVID and respiratory panel - Will obtain urine antigens - Additionally will obtain cortisol level, patient has a history of hypothyroidism, cannot rule out that she is adrenal insufficiency though less likely - IV thiamine ordered in the event there is also nutritional deficiency, again less likely but no definite etiology identified yet - Will consult open hearth furnace operator for assistance, patient being admitted to ICU # Acute hypoxic hypercapnic respiratory failure -Patient initially acidotic and hypercapnic but not hypoxic when she came in andhad been on nonrebreather from squad, was placed on nasal cannula and repeat ABGshowed pH almost the same, minimal improvement in hypercapnia but patient then hypoxic -Patient placed on BiPAP - Management as above - proBNP 10,000 though several months ago was 11,000, had an echo several monthsago with normal EF and LV size - Does not appear patient takes Lasix presently on an outpatient basis - O2 sat improved significantly on BiPAP, can continue to monitor for abilities to diurese though do not think that fluid overload would necessarily account forthe hypothermia, hypoglycemia, sinus bradycardia, concerned that there may be another etiology -Will monitor daily weights and I's and O's -Had echo several months ago so repeat was not ordered - Appreciate open hearth furnace operator recommendations #Acute metabolic encephalopathy - Secondary to the above, treat underlying etiologies # Elevated INR - Unclear if patient has poor nutrition or if she resumed home Coumadin when shewas supposed to be switched to Eliquis - Repeat in a.m. - No acute indication for reversal at this time # Elevated potassium - Potassium listed is 5.7 however it is hemolyzed, repeat was also hemolyzed, a repeat of that is now pending #JAYA - On BiPAP as above #Type 2 diabetes mellitus -Glucose checks, holding any insulin or glipizide due to the above #Depression/anxiety -Continue home medications once patient able to be alert enough to take p.o. #GERD -Continue PPI #Hypothyroidism -Continue Synthroid -TSH elevated but free T4 technically within normal limits, unclear level compliance on outpatient basis #Paroxysmal Atrial Fibrillation -Rate control: On metoprolol, will hold as above -Anticoagulation: Continue Eliquis #Morbid obesity -BMI documented as 71.2 kg/m? at time of admission -Complicates treatment, prognosis, outcomes -Recommend weight loss and lifestyle changes #DVT ppx: Not indicated, already on full dose anticoagulation Savanna Suero MD Charges/Coding Visit Charges Inpatient E&M: 88470 Init Hosp L3 10/29/242058 <Electronically signed by Savanna Suero MD> Cosigner Signature (if applicable): CC: Dr. Socrates Spangler MD; Dr. Savanna Suero MD~ Signed [facility] Work Phone: [phone] History and physical note [facility] Medical Records Department [address] [place] [address] H&P Exam - Hospitalist 10/29/242019 MR#: [id number] Acct: [id number] Name: TOD HUNT Rep #:[id number] : 1945 78 From: Savanna Suero MD PCP: Dr. Socrates Spangler MD Status:ADM I N Location: ICU ICU01-1 HPI - General General Date of Admission: 10/29/24 Date of Service: 10/29/24 Chief Complaint: AMS HPI Narrative TOD HUNT, is a 78-year-old female with a history of JAYA, GERD, hypothyroidism, diabetes, depression, A-[facility], hypoglycemia, hypoxia. She was discharged 5 days ago and has possibly been having some confusion since that time. Reportedly hypoxic by EMS in the 80s and has started wearing oxygen since her discharge. When she was here recently she was admitted for UTI with debility and weakness but declined skilled care and had home health instead, shewas discharged on the after being admitted for 5 days. In the ED heart rate 47, blood pressure 111/82, respiratory rate 24 and pulse ox 100% on 15 L nonrebreather, temp was found to be 93.2. CBC with normal white blood cell count, hemoglobin 11.6, CMP with a potassium of 5.7 but found to be hemolyzed, BUN of 29 and a creatinine 1.12, glucose 50, TSH 12, INR 4.1, blood gas with a pH 7.23, bicarb of 34, O2 sat 93 and a PCO2 of 80.8, proBNP 10,697 wi th a Pro-Rudi of 0.06 and a lactic of less than 1. Chest x-ray with mild cardiomegaly anddiffuse pulmonary vascular congestion and possible left retrocardiac opacity. Patient had no signs or symptoms of infection and UA did not seem overtly seem infected, given elevated BNP, x-ray findings and hypoxia there is suspicion for CHF and IV Lasix ordered. There is no indication for IV antibiotics. Due to her low glucose she was given D10 and patient placed on Emily hugger as it was unclear why she was hypothermic. Hospitalist contacted for admission. Patient evaluated bedside. Patient very confused, mostly is not answering questions appropriately, repeat ABG showed slight improvement in pH and [id number] now with hypoxia, patient placed on BiPAP and plan for ICU. No family available at bedside to provide additional history. [facility], LAT[facility] Medical History Anxiety Depression Hyperthyroidism Diabetes Non-smoker BiPAP (biphasic positive airway pressure) dependence On home oxygen therapy Congestive heart failure (CHF) Chest pain Hypertension Migraines Contusion of right great toe without damage to nail, initial encounter CHF (congestive heart failure) CKD (chronic kidney disease), stage III Acute hypoxic respiratory failure Hypothyroidism Allergic rhinitis GERD (gastroesophageal reflux disease) Obstructive sleep apnea Hyperlipidemia Hypertension Type 2 diabetes mellitus Morbid obesity Home Medications ?Medication ?Instructions ?Recorded ?Last Taken ?Type atorvastatin 20 mg tablet 20 mg PO QHS cholesterol 03/3005/11/16 22:00 History hydrocortisone 2.5 % topical cream 1 applicatio topica l BID rash 05/12/16 Unknown History metoprolol tartrate 50 mg tablet 25 mg PO BID blood pr essure 05/12/16 05/12/16 08:00 History nystatin 100,000 unit/gram topical 1 applic topical BI D yeast 05/14/16 Unknown Rx powder ([facility]) docusate sodium 100 mg capsule 100 mg PO DAILY stool s oftner 06/16/24 Unknown History pantoprazole 40 mg tablet,delayed 40 mg PO DAILY reflu x 06/16/24 Unknown History release ergocalciferol (vitamin D2) 1,250 1,250 mcg PO QWEEK v itamin 10/18/24 Unknown History mcg (50,000 unit) capsule escitalopram oxalate 10 mg tablet 10 mg PO QHS mental health 10/18/24 Unknown History glipizide 10 mg tablet 10 mg PO BID diabetes Unknown History hydroxyzine pamoate 25 mg capsule 25 mg PO DAILY PRN i tching 10/18/24 Unknown History levothyroxine 112 mcg tablet 112 mcg PO DAILY thyroid 10/18/24 Unknown History loratadine 10 mg tablet (Allergy 10 mg PO DAILY allerg ies 10/18/24 Unknown History Relief (loratadine)) magnesium chloride 64 mg 64 mg PO DAILY supplement Unknown History (magnesium chloride) tablet,delayed release (Mag 64) montelukast 10 mg tablet 10 mg PO DAILY allergies 10/05 Unknown History nystatin 100,000 unit/gram topical 1 applic topical DA HERNAN rash 10/18/24 Unknown History cream potassium chloride 10 mEq 10 meq PO DAILY supplement 0 10/18/24 Unknown History tablet,extended release apixaban 5 mg tablet (Eliquis) 5 mg PO BID #60 tabs Unknown Rx Allergy/AdvReac Type Severity Reaction Status Date / Time lisinopril Allergy Unknown Verified 10/29/24 15:04 pollen extracts Allergy Itching Verified 10/29/24 15:04 Family History Mother Diabetes Heart disease Hypertension Father Diabetes Cancer Heart disease Alzheimer dementia Surgical History History of cholecystectomy History of ankle surgery S/P cholecystectomy Social History household members: spouse Smoking Status: Never smoker alcohol intake: never substance use type: does not use ROS ROS Narrative Unable to obtain secondary to mental status Vital Signs Vital Signs Vital Signs: 10/29/24 14:59 10/29/24 15:11 10/29/24 16:01 Temperature 0 F L Temperature Source Oral Pulse Rate 47 L Respiratory Rate 24 H 20 H Respiratory Pattern Blood Pressure 111/82 H 104/59 L Blood Pressure Mean 91 71 Pulse Ox 100 90 Oxygen Delivery Method Non-Rebreather Non-Rebreather Oxygen Flow Rate (L/min) 15 Fraction of Inspired Oxygen (FIO2) 10/29/24 16:03 10/29/24 16:15 10/29/24 16:30 Temperature 93.3 F L Temperature Source Core Pulse Rate 46 L 44 L Respiratory Rate 15 19 H 17 Respiratory Pattern Blood Pressure 100/65 104/54 L 97/66 Blood Pressure Mean 76 69 77 Pulse Ox 97 97 95 Oxygen Delivery Method Nasal Cannula Oxygen Flow Rate (L/min) Fraction of Inspired Oxygen (FIO2) 10/29/24 16:45 10/29/24 17:00 10/29/24 17:00 Temperature 93.3 F L 93.1 F L 93.2 F L Temperature Source Core Core Core Pulse Rate 46 L 48 L 44 L Respiratory Rate 19 H 16 14 Respiratory Pattern Blood Pressure 100/65 106/66 106/66 Blood Pressure Mean 76 79 78 Pulse Ox 96 92 92 Oxygen Delivery Method Nasal Cannula Oxygen Flow Rate (L/min) Fraction of Inspired Oxygen (FIO2) 10/29/24 17:15 10/29/24 17:30 10/29/24 17:45 Temperature 93.1 F L 93.1 F L 93.1 F L Temperature Source Core Core Core Pulse Rate 41 L 45 L 45 L Respiratory Rate 13 13 14 Respiratory Pattern Blood Pressure Blood Pressure Mean Pulse Ox 95 97 97 Oxygen Delivery Method Oxygen Flow Rate (L/min) Fraction of Inspired Oxygen (FIO2) 10/29/24 18:00 10/29/24 18:00 10/29/24 18:15 Temperature 93.2 F L 93.2 F L 93.3 F L Temperature Source Core Core Core Pulse Rate 39 L 45 L 45 L Respiratory Rate 13 15 13 Respiratory Pattern Blood Pressure 100/35 L Blood Pressure Mean 56 Pulse Ox 96 97 97 Oxygen Delivery Method Nasal Cannula Oxygen Flow Rate (L/min) Fraction of Inspired Oxygen (FIO2) 10/29/24 18:17 08/18/25 18:25 10/29/24 19:00 Temperature 93.3 F L 93.3 F L 93.7 F L Temperature Source Core Core Pulse Rate 45 L 45 L 47 L Respiratory Rate 15 15 16 Respiratory Pattern Blood Pressure 100/35 L 100/35 L 103/40 L Blood Pressure Mean 56 56 61 Pulse Ox 97 97 94 Oxygen Delivery Method Nasal Cannula Oxygen Flow Rate (L/min) 3 Fraction of Inspired Oxygen (FIO2) 10/29/24 19:32 10/29/24 20:00 Temperature Temperature Source Pulse Rate 51 L 47 L Respiratory Rate 15 14 Respiratory Pattern Normal Normal Blood Pressure Blood Pressure Mean Pulse Ox 98 99 Oxygen Delivery Method Oxygen Flow Rate (L/min) Fraction of Inspired Oxygen (FIO2) 30 24 Weight Weight: 200 kg Body Mass Index (BMI) 71.1 Physical Exam Narrative General: Patient tired and confused, would wake up and answer questions but mostly in a nonsensicalway HEENT: Atraumatic, normocephalic Eyes: Anicteric, normal conjunctiva, extraocular movements grossly intact Neck: Supple Respiratory: Very difficult to auscultate given patient's body habitus, diminished bilaterally Cardiovascular: Sinus bradycardia GI: Soft, protuberant, did not appear in pain on palpation Extremities: Has some 1-2+ bilateral lower extremity pitting edema Musculoskeletal: Moving all extremities in bed Neuro: No overt focal neurological deficits however patient unable to cooperate secondary to mentalstatus Skin: No overt rashes appreciated on my exam Psych: Unable to cooperate secondary to mental status Results Lab / Micro Data 10/29/24 15:29 10/29/24 15:40 Labs: Laboratory Results - last 24 hr 10/29/24 15:17: Urine Color Yellow, Urine Clarity Sl. Cloudy, Urine pH 6.0, Ur Specific Plush 1.020, Urine Protein 100 H, Urine Glucose (UA) Normal, Urine Ketones Negative, Urine Occult Blood 10 H,Urine Nitrite Negative, Urine Bilirubin 1 H, Urine Urobilinogen Normal, Ur Leukocyte Esterase 25 H,Urine RBC 5-10 SEEN, Urine WBC 5-10 SEEN, Ur Squamous Epith Cells 10-25 SEEN, Urine Bacteria 1+, Hyaline Casts 0-5 SEEN, Urine Mucus 0 SEEN, Urine Yeast RARE 10/29/24 15:29: WBC 9.2, RBC 4.57, Hgb 11.6 L, Hct 41.3, MCV 90.4, MCH 25.4 L, MCHC 28.1 L, RDW StdDeviation 55.8 H, RDW Coeff of Ryan 17.4 H, Plt Count 157, MPV 9.3, Immature Gran % (Auto) 0.500, Neut % (Auto) 76.4 H, Lymph % (Auto) 14.7L, Kimball % (Auto) 6.7, Eos % (Auto) 1.5, Baso % (Auto) 0.2, Absolute Neuts (auto)7.0, Absolute Lymphs (auto) 1.35, Nucleated RBC % 0, PT Cancelled, INR Cancelled,APTT Cancelled, Sodium 135, Potassium 5.7 H, Chloride 102, Carbon Dioxide 25.8, Anion Gap 7, BUN 29H, Creatinine 1.12, Estim Creat Clear Calc 73.10, Est GFR (MDRD) Non-Af 50 L, BUN/Creatinine Ratio 25.8 H, Glucose 50 L, Lactic Acid < 1.0, Calcium 9.1, Total Bilirubin 0.21, AST 24, ALT 14, Alkaline Phosphatase 77, Total Protein 5.6 L, Albumin 2.5 L, Globulin 3.2, Albumin/Globulin Ratio 0.8 L, Procalcitonin 0.06 10/29/24 15:40: Potassium 5.6 H, [place] [address] H, TSH 12.000 H, Free T4 0.90, Free T3 pg/dL 1.6 L 10/29/24 16:29: POC Glucose 49 L 10/29/24 17:19: PT 40.9 H, INR 4.1 H*, APTT 45.7 H 10/29/24 18:14: POC Glucose 105 10/29/24 19:08: POC Glucose 99 Micro: Microbiology 10/29/24 15:40 Mucosa - Nose SARS-CoV-2, Influenza & RSV (PCR) - Final ABG Data ABG results: ABG 10/29/24 10/29/24 16:12 19:22 Specimen Type ART ART Sample Site L Radial R Radial pH 7.23 L 7.26 L Bicarbonate Actual 34.0 H 32.8 H Total CO2 37 35 Base Excess 7 H 6 H O2 Saturation 93 L 82 L O2 % 2.0 2.0 ABG pCO2 80.8 H* 74.0 H* ABG pO2 84 55 L Shirin Test Positive Positive O2 Delivery Device Cannula Cannula Vent Mode Not entered Not entered Crit Call To/Read Back Yes Yes Blood Gas Notified Whom tess Suero Blood Gas Notified Time 16:14:41 19:24:22 Imaging Radiology Impression Chest X-Ray 10/29/24 15:24 IMPRESSION: Mild cardiomegaly and diffuse pulmonary vascular congestion. Left retrocardiac opacity. Reading Location: [facility] Assessment & Plan Assessment/Plan (1) Acute metabolic encephalopathy due to hypoglycemia: PLAN: Plan # Hypothermia, hypoglycemia, sinus bradycardia -Suspect sinus bradycardia is secondary to hypothermia and likely contributed skip hypoglycemia - Unclear underlying etiology of the above, TSH is elevated at 12 but free T4 istechnically within normal limits on the low end of normal - Continue Synthroid, unclear compliance at home - Hold home beta-maycol -Hold home glipizide - Patient with normal white blood cell count, lactic acid within normal limits, Pro-Rudi negative but does have hypoxia and left retrocardiac opacity and thus far no clear explanation for the above, given the persistence despite treating the hypoglycemia feel it is reasonable to treat patient empirically with antibiotics while awaiting culture and any further available data, given the only available identifiable complaints are pulmonary we will treat with Rocephinand azithromycin - Will obtain COVID and respiratory panel - Will obtain urine antigens - Additionally will obtain cortisol level, patient has a history of hypothyroidism, cannot rule outthat she is adrenal insufficiency though less likely - IV thiamine ordered in the event there is also nutritional deficiency, again less likely but no definite etiology identified yet - Will consult open hearth furnace operator for assistance, patient being admitted to ICU # Acute hypoxic hypercapnic respiratory failure -Patient initially acidotic and hypercapnic but not hypoxic when she came in andhad been on nonrebreather from squad, was placed on nasal cannula and repeat ABGshowed pH almost the same, minimal improvement in hypercapnia but patient then hypoxic -Patient placed on BiPAP - Management as above - proBNP 10,000 though several months ago was 11,000, had an echo several monthsago with normal EF and LV size - Does not appear patient takes Lasix presently on an outpatient basis - O2 sat improved significantly on BiPAP, can continue to monitor for abilities to diurese though do not think that fluid overload would necessarily account forthe hypothermia, hypoglycemia, sinus bradycardia, concerned that there may be another etiology -Will monitor daily weights and I's and O's -Had echo several months ago so repeat was not ordered - Appreciate open hearth furnace operator recommendations #Acute metabolic encephalopathy - Secondary to the above, treat underlying etiologies # Elevated INR - Unclear if patient has poor nutrition or if she resumed home Coumadin when shewas supposed to be switched to Eliquis - Repeat in a.m. - No acute indication for reversal at this time # Elevated potassium - Potassium listed is 5.7 however it is hemolyzed, repeat was also hemolyzed, a repeat of that is now pending #JAYA - On BiPAP as above #Type 2 diabetes mellitus -Glucose checks, holding any insulin or glipizide due to the above #Depression/anxiety -Continue home medications once patient able to be alert enough to take p.o. #GERD -Continue PPI #Hypothyroidism -Continue Synthroid -TSH elevated but free T4 technically within normal limits, unclear level compliance on outpatient basis #Paroxysmal Atrial Fibrillation -Rate control: On metoprolol, will hold as above -Anticoagulation: Continue Eliquis #Morbid obesity -BMI documented as 71.2 kg/m? at time of admission -Complicates treatment, prognosis, outcomes -Recommend weight loss and lifestyle changes #DVT ppx: Not indicated, already on full dose anticoagulation Savanna Suero MD Charges/Coding Visit Charges Inpatient E&M: 42764 Init Hosp L3 10/29/242058 Cosigner Signature (if applicable): CC: Dr. Socrates Spangler MD; Dr. Savanna Suero MD~ Signed [facility]08-18-2025 Radiology Diagnostic study note [facility] Imaging Services [address] [place] [address] Chest 1 View (Portable) MR#: [id number] Acct: [id number] Name: TOD HUNT Rep #: [id number] : 1945 F 78 From: Giovany De La Garza MD PCP: Dr. Socrates Spangler MD Status: PRE E R Study:Chest 1 View (Portable) Date of Exam: 10/29/24 Exam# [id number] Ordering Dr: Facundo Golden DO PROCEDURE: CHEST 1 VIEW (PORTABLE) 10/29/2024 REASON FOR EXAM: COUGH TECHNIQUE: Frontal view of the chest. COMPARISON: 10/18/2024 FINDINGS: Hardware: None. Heart: Heart size is mildly enlarged. Lungs: Diffuse pulmonary vascular congestion. Left retrocardiac opacity. No pneumothorax. Bones: The bones are unremarkable. RAD/Chest 1 View (Portable) IMPRESSION: Mild cardiomegaly and diffuse pulmonary vascular congestion. Left retrocardiac opacity. Reading Location: [facility] CC: Dr. Socrates Spangler MD; Dr. Facundo Golden DO ~ Logging Worker: Signed [facility]08-18-2025 Discharge summary Author Facundo Golden [facility] Note Date/Time October 29, 2024 10 :34pm [facility] Medical Records Department [address] [place] [address] Emergency Department Summary 10/29/24 MR#: [id number] Acct: [id number] Name: TOD HUNT Rep #:[id number] : 1945 78 From: Facundo Castanon PCP: Dr. Socrates Spangler MD Status:ADM I N Location: ICU ICU01-[address] Facundo Golden DO on 10/29/24 at 2234 Prior to transport upstairs nursing reported to me that patient pulled her IV lines, there was a small 22 placed in her chest region. She is going ICU. There was difficulty obtaining additional lines. Therefore I placed central line with no difficulties. Central line placement. Patient awake, however still slightly confused therefore consent unable to be fully obtained. For urgent IV access for treatment, this was set up to be placed. Preprocedural ultrasound right neck had noted IJ that is compressible just lateral to the carotid. Patient set up in Trendelenburg position. Timeout performed at 2200. Full sterile drapes. Neck was prepped with ChloraPrep. 1% lidocaine used for local analgesia. Ultrasoundguidance Seldinger technique used visualize IJ first thick dark blood return. Guidewire was placed, skin incision made, dilation of the vessel performed. Triple-lumen catheter was placed and secured. All 3 lines return dark blood andflushed with no difficulties. Dressing was placed. No complications. Minimal blood loss. Post line x-ray ordered. 10/29/242233<Electronically signed by Facundo Castanon> Cosigner Signature (if applicable): cc: Dr. Socrates Spangler MD ~* Signed HPI History of Present Illness Chief Complaint: Alt LOC Narrative Narrative: Brought by EMS from home caregiver called EMS with confusion. Patient reports there may confusion since in the hospital was discharged 5 days ago. Poor historian. She states mild cough. Denies vomiting diarrhea. Denies urinary symptoms. Denies fevers. Denies any pain. Since being home she is nonambulatory she states she is on a blood thinner cannot tell me the name. Reported hypoxia by EMS she states she started wearing oxygen since her discharge. After evaluation patient reviewing records, admitted for 5 days discharged on the . She had UTI she had debility and weakness she declined skilled care and had home health. She is transitioned over to Eliquis from her warfarin. Prior similar symptoms: Yes PFSH PFSH Medical History Anxiety Depression Hyperthyroidism Diabetes Non-smoker BiPAP (biphasic positive airway pressure) dependence On home oxygen therapy Congestive heart failure (CHF) Chest pain Hypertension Migraines Contusion of right great toe without damage to nail, initial encounter CHF (congestive heart failure) CKD (chronic kidney disease), stage III Acute hypoxic respiratory failure Hypothyroidism Allergic rhinitis GERD (gastroesophageal reflux disease) Obstructive sleep apnea Hyperlipidemia Hypertension Type 2 diabetes mellitus Morbid obesity Home Medications ?Medication ?Instructions ?Recorded ?Last Taken ?Type atorvastatin 20 mg tablet 20 mg PO QHS cholesterol 03/3005/11/16 22:00 History hydrocortisone 2.5 % topical cream 1 applicatio topica l BID rash 05/12/16 Unknown History metoprolol tartrate 50 mg tablet 25 mg PO BID blood pr essure 05/12/16 05/12/16 08:00 History nystatin 100,000 unit/gram topical 1 applic topical BI D yeast 05/14/16 Unknown Rx powder ([facility]) docusate sodium 100 mg capsule 100 mg PO DAILY stool s oftner 06/16/24 Unknown History pantoprazole 40 mg tablet,delayed 40 mg PO DAILY reflu x 06/16/24 Unknown History release ergocalciferol (vitamin D2) 1,250 1,250 mcg PO QWEEK v itamin 10/18/24 Unknown History mcg (50,000 unit) capsule escitalopram oxalate 10 mg tablet 10 mg PO QHS mental health 10/18/24 Unknown History glipizide 10 mg tablet 10 mg PO BID diabetes Unknown History hydroxyzine pamoate 25 mg capsule 25 mg PO DAILY PRN i tching 10/18/24 Unknown History levothyroxine 112 mcg tablet 112 mcg PO DAILY thyroid 10/18/24 Unknown History loratadine 10 mg tablet (Allergy 10 mg PO DAILY allerg ies 10/18/24 Unknown History Relief (loratadine)) magnesium chloride 64 mg 64 mg PO DAILY supplement Unknown History (magnesium chloride) tablet,delayed release (Mag 64) montelukast 10 mg tablet 10 mg PO DAILY allergies 10/05 Unknown History nystatin 100,000 unit/gram topical 1 applic topical DA HERNAN rash 10/18/24 Unknown History cream potassium chloride 10 mEq 10 meq PO DAILY supplement 0 10/18/24 Unknown History tablet,extended release apixaban 5 mg tablet (Eliquis) 5 mg PO BID #60 tabs Unknown Rx Allergy/AdvReac Type Severity Reaction Status Date / Time lisinopril Allergy Unknown Verified 10/29/24 15:04 pollen extracts Allergy Itching Verified 10/29/24 15:04 Family History Mother Diabetes Heart disease Hypertension Father Diabetes Cancer Heart disease Alzheimer dementia Surgical History History of cholecystectomy History of ankle surgery S/P cholecystectomy Social History household members: spouse Smoking Status: Never smoker alcohol intake: never substance use type: does not use ROS ROS ED Constitutional Constitutional ED: Denies fever(s) Cardiovascular Cardiovascular: Denies chest pain Respiratory/Chest Respiratory/Chest: Reports cough and dyspnea Gastrointestinal Gastrointestinal: Denies abdominal pain, diarrhea or vomiting Musculoskeletal Musculoskeletal: Denies none Integumentary Reports rash; Denies wounds Neurologic Neurologic: Reports weakness EXAM Physical Exam Const Vital Signs: 10/29/24 14:59 10/29/24 15:11 10/29/24 16:01 Temperature 0 F L Temperature Source Oral Pulse Rate 47 L Respiratory Rate 24 H 20 H Respiratory Pattern Blood Pressure 111/82 H 104/59 L Blood Pressure Mean 91 71 Pulse Ox 100 90 Oxygen Delivery Method Non-Rebreather Non-Rebreather Oxygen Flow Rate (L/min) 15 Fraction of Inspired Oxygen (FIO2) 10/29/24 16:03 10/29/24 16:15 10/29/24 16:30 Temperature 93.3 F L Temperature Source Core Pulse Rate 46 L 44 L Respiratory Rate 15 19 H 17 Respiratory Pattern Blood Pressure 100/65 104/54 L 97/66 Blood Pressure Mean 76 69 77 Pulse Ox 97 97 95 Oxygen Delivery Method Nasal Cannula Oxygen Flow Rate (L/min) Fraction of Inspired Oxygen (FIO2) 10/29/24 16:45 10/29/24 17:00 10/29/24 17:00 Temperature 93.3 F L 93.1 F L 93.2 F L Temperature Source Core Core Core Pulse Rate 46 L 48 L 44 L Respiratory Rate 19 H 16 14 Respiratory Pattern Blood Pressure 100/65 106/66 106/66 Blood Pressure Mean 76 79 78 Pulse Ox 96 92 92 Oxygen Delivery Method Nasal Cannula Oxygen Flow Rate (L/min) Fraction of Inspired Oxygen (FIO2) 10/29/24 17:15 10/29/24 17:30 10/29/24 17:45 Temperature 93.1 F L 93.1 F L 93.1 F L Temperature Source Core Core Core Pulse Rate 41 L 45 L 45 L Respiratory Rate 13 13 14 Respiratory Pattern Blood Pressure Blood Pressure Mean Pulse Ox 95 97 97 Oxygen Delivery Method Oxygen Flow Rate (L/min) Fraction of Inspired Oxygen (FIO2) 10/29/24 18:00 10/29/24 18:00 10/29/24 18:15 Temperature 93.2 F L 93.2 F L 93.3 F L Temperature Source Core Core Core Pulse Rate 39 L 45 L 45 L Respiratory Rate 13 15 13 Respiratory Pattern Blood Pressure 100/35 L Blood Pressure Mean 56 Pulse Ox 96 97 97 Oxygen Delivery Method Nasal Cannula Oxygen Flow Rate (L/min) Fraction of Inspired Oxygen (FIO2) 10/29/24 18:17 10/29/24 18:25 10/29/24 19:00 Temperature 93.3 F L 93.3 F L 93.7 F L Temperature Source Core Core Pulse Rate 45 L 45 L 47 L Respiratory Rate 15 15 16 Respiratory Pattern Blood Pressure 100/35 L 100/35 L 103/40 L Blood Pressure Mean 56 56 61 Pulse Ox 97 97 94 Oxygen Delivery Method Nasal Cannula Oxygen Flow Rate (L/min) 3 Fraction of Inspired Oxygen (FIO2) 10/29/24 19:32 10/29/24 20:00 10/29/24 20:00 Temperature 94.4 F L Temperature Source Core Pulse Rate 51 L 47 L 45 L Respiratory Rate 15 14 18 Respiratory Pattern Normal Normal Blood Pressure 86/55 L Blood Pressure Mean 65 Pulse Ox 98 99 100 Oxygen Delivery Method Bi-pap Oxygen Flow Rate (L/min) Fraction of Inspired Oxygen (FIO2) 30 24 24 Constitutional Narrative: On nonrebreather nontoxic no respiratory distress HEENT Reports moist mucous membranes normocephalic and atraumatic Eyes General Eye ED: Yes normal appearance of both eyes Chest Wall Chest: Negative for tenderness Resp normal respiratory effort and normal air movement Resp Narrative: Diminished breath sounds. Effort and Inspection: symmetric chest movement; Negative for respiratory distress Cardio regular rate and no murmurs Rate: bradycardia Peripheral Pulses: pulses 2+ throughout GI normal to inspection, nondistended, normoactive bowel sounds and non-tender Palpation: Negative for guarding or rebound tenderness present Extremity Extremity Narrative: 2+ lower extremity edema. Candidiasis noted in the popliteal folds. General Extremety ED: Yes edema; Negative for tenderness General Extremity: edema Neuro Neuro Narrative: Alert to person and place. Cannot tell me the year. Sensorium / Orientation: awake Skin Skin Narrative: See above MDM MDM MDM Narrative Medical decision making narrative: Interventions / MDM: Differential diagnosis: Hypothermia, hypoglycemic event, metabolic encephalopathy, hypercapnic respiratory failure, chf Diagnosis considered but do not suspect: Pneumonia however white count normal lactic acid and procalcitonin negative. PE however on chronic anticoagulation. My EKG interpretation: Sinus bradycardia rate 47, no heart blocks. No ST changes. Imaging independently reviewed and interpreted by myself: 1 view chest x-ray: Concerns for retrocardiac consolidation per radiology. External documents reviewed: N/A Test considered but not ordered:N/A ED course: Patient poor historian confused. Reports cough. She came in on nonrebreather reported pulse ox was 85%. She is on Eliquis from records. Pulseat 47 respiratory rate 24. I ordered sepsis labs. She had leg swelling BNP added. Chest x-ray ordered. Will get ABG as she is more confused. 1635: ABG from respiratory pH 7.23PCO2 of 80 PaO2 of 83 bicarb 34. The concern with her being on the new nonrebreather may have raise her CO2. They placed todd 2 L nasal cannula. Also per nursing glucose was 47 she started on D10 bolus. Current white count 9.2 hemoglobin 0.6. BNP 77172. 1645: Nursing reported core temp is [address] Reese [address] her on aBair hugger. Will add TSH. TSH returned elevated at 12 however notes she is on levothyroxine. I did send for free T4 and T3 levels. My reevaluation patient was more awake on the nasal cannula. I spoke with hospitalist Dr. Suero for plan admission to ICU as she is hypothermic on a Emily hugger. Discussed unclear findings on hypothermia discussed lactic acid and procalcitonin was negative her white count normal. They read potential consolidation retrocardiac. Her BNP was elevated at 10,697. I ordered for Lasix. After evaluation by hospitalist as she was more somnolent repeat ABG was ordered. Repeat glucose was in the 90s. CO2 high 70s, she is placed on a BiPAP. Continue plan for placement in ICU. 2100: Patient tolerating the BiPAP. Awaiting transfer up to bed. Repeat potassium again down to 5.4. Re-evaluation: stable Disposition discussed with patient/family/significant other: Patient Case discussed with consulting clinician: Hospitalist This note was generated with Letsmake dictation software. It may contain incorrectwords, spelling, and punctuation that were not noted in checking the note beforesigning. Lab Data Labs: Laboratory Results - last 24 hr 10/29/24 10/29/24 10/29/24 15:17 15:29 15:40 WBC 9.2 RBC 4.57 Hgb 11.6 L Hct 41.3 MCV 90.4 MCH 25.4 L MCHC 28.1 L RDW Std Deviation 55.8 H RDW Coeff of Ryan 17.4 H Plt Count 157 MPV 9.3 Immature Gran % (Auto) 0.500 Neut % (Auto) 76.4 H Lymph % (Auto) 14.7 L Kimball % (Auto) 6.7 Eos % (Auto) 1.5 Baso % (Auto) 0.2 Absolute Neuts (auto) 7.0 Absolute Lymphs (auto) 1.35 Nucleated RBC % 0 PT Cancelled INR Cancelled APTT Cancelled Sodium 135 Potassium 5.7 H 5.6 H Chloride 102 Carbon Dioxide 25.8 Anion Gap 7 BUN 29 H Creatinine 1.12 Estim Creat Clear Calc 73.10 Est GFR (MDRD) Non-Af 50 L BUN/Creatinine Ratio 25.8 H Glucose 50 L Lactic Acid < 1.0 Calcium 9.1 Total Bilirubin 0.21 AST 24 ALT 14 Alkaline [place]atase 77 [place] [address] H Total Protein 5.6 L Albumin 2.5 L Globulin 3.2 Albumin/Globulin Ratio 0.8 L Procalcitonin 0.06 TSH 12.000 H Free T4 0.90 Free T3 pg/dL 1.6 L Urine Color Yellow Urine Clarity Sl. Cloudy Urine pH 6.0 Ur Specific Plush 1.020 Urine Protein 100 H Urine Glucose (UA) Normal Urine Ketones Negative Urine Occult Blood 10 H Urine Nitrite Negative Urine Bilirubin 1 H Urine Urobilinogen Normal Ur Leukocyte Esterase 25 H Urine RBC 5-10 SEEN Urine WBC 5-10 SEEN Ur Squamous Epith Cells 10-25 SEEN Urine Bacteria 1+ Hyaline Casts 0-5 SEEN Urine Mucus 0 SEEN Urine Yeast RARE POC Glucose 10/29/24 10/29/24 10/29/24 16:29 17:19 18:14 WBC RBC Hgb Hct MCV MCH MCHC RDW Std Deviation RDW Coeff of Ryan Plt Count MPV Immature Gran % (Auto) Neut % (Auto) Lymph % (Auto) Kimball % (Auto) Eos % (Auto) Baso % (Auto) Absolute Neuts (auto) Absolute Lymphs (auto) Nucleated RBC % PT 40.9 H INR 4.1 H* APTT 45.7 H Sodium Potassium Chloride Carbon Dioxide Anion Gap BUN Creatinine Estim Creat Clear Calc Est GFR (MDRD) Non-Af BUN/Creatinine Ratio Glucose Lactic Acid Calcium Total Bilirubin AST ALT Alkaline Phosphatase NT pro BNP II Total Protein Albumin Globulin Albumin/Globulin Ratio Procalcitonin TSH Free T4 Free T3 pg/dL Urine Color Urine Clarity Urine pH Ur Specific Plush Urine Protein Urine Glucose (UA) Urine Ketones Urine Occult Blood Urine Nitrite Urine Bilirubin Urine Urobilinogen Ur Leukocyte Esterase Urine RBC Urine WBC Ur Squamous Epith Cells Urine Bacteria Hyaline Casts Urine Mucus Urine Yeast POC Glucose 49 L 105 10/29/24 10/29/24 19:08 20:06 WBC RBC Hgb Hct MCV MCH MCHC RDW Std Deviation RDW Coeff of Ryan Plt Count MPV Immature Gran % (Auto) Neut % (Auto) Lymph % (Auto) Kimball % (Auto) Eos % (Auto) Baso % (Auto) Absolute Neuts (auto) Absolute Lymphs (auto) Nucleated RBC % PT INR APTT Sodium Potassium 5.4 H Chloride Carbon Dioxide Anion Gap BUN Creatinine Estim Creat Clear Calc Est GFR (MDRD) Non-Af BUN/Creatinine Ratio Glucose Lactic Acid Calcium Total Bilirubin AST ALT Alkaline Phosphatase NT pro BNP II Total Protein Albumin Globulin Albumin/Globulin Ratio Procalcitonin TSH Free T4 Free T3 pg/dL Urine Color Urine Clarity Urine pH Ur Specific Plush Urine Protein Urine Glucose (UA) Urine Ketones Urine Occult Blood Urine Nitrite Urine Bilirubin Urine Urobilinogen Ur Leukocyte Esterase Urine RBC Urine WBC Ur Squamous Epith Cells Urine Bacteria Hyaline Casts Urine Mucus Urine Yeast POC Glucose 99 ABG Data ABG results: ABG 10/29/24 10/29/24 16:12 19:22 Specimen Type ART ART Sample Site L Radial R Radial pH 7.23 L 7.26 L Bicarbonate Actual 34.0 H 32.8 H Total CO2 37 35 Base Excess 7 H 6 H O2 Saturation 93 L 82 L O2 % 2.0 2.0 ABG pCO2 80.8 H* 74.0 H* ABG pO2 84 55 L Shirin Test Positive Positive O2 Delivery Device Cannula Cannula Vent Mode Not entered Not entered Crit Call To/Read Back Yes Yes Blood Gas Notified Whom tess Suero Blood Gas Notified Time 16:14:41 19:24:22 Radiography Diagnostic Testing: Clinical Impression(s) from Imaging Studies Chest X-Ray 10/29/24 15:24 IMPRESSION: Mild cardiomegaly and diffuse pulmonary vascular congestion. Left retrocardiac opacity. Reading Location: [facility] Critical Care Time Critical Care Time: Yes Critical care time (excluding procedures): 30-74 minutes, Discussing w/Patient &/or Family/Puppet Developer, Discussing w/Consultants, Arranging Admission or Transfer, Performing Direct Patient Care at Bedside and - (45 minutes) Discharge Plan Triage Chief Complaint: Alt LOC ED Provider: Facundo Golden Dx/Rx/DC Orders Clinical Impression: Acute metabolic encephalopathy due to hypoglycemia, History of diabetes mellitus, Hyperkalemia, Bradycardia, Acute hypercapnic respiratory failure, Hypothermia, CHF (congestive heart failure) Primary Care Provider: Socrates Spangler Disposition Disposition: Acute Care Hospital [facility] What to do if you have Problems For any increased pain, shortness of breath, bleeding, nausea or vomiting, chestpain, or any unexpected problems, contact your Primary Care Provider. Call [facility] ([phone]) or report to the closest Emergency Room. Call 911 if necessary. 10/29/242116 <Electronically signed by Facundo Castanon> Cosigner Signature (if applicable): CC: Dr. Socrates Spangler MD ~ Signed [facility] Work Phone: 1(464) 566-353008-13-2025 Discharge summary Author [facility] Note Date/Time October 24, 2024 11 :[address] [place] [address] System Medical Records Department [address] [place] [id number] Instructions for Home/Discharge Instructions 10/24/24 1058 MR#: [id number] Acct: [id number] Name: TOD HUNT Rep #:[id number] : 1945 78 From: Haydee Sanchez MD PCP: Dr. Socrates Spangler MD Status:ADM I N Discharge Instructions DC O2, CPAP, BIPAP needs Home O2 Discharge instructions: No Dressing / Incision Discharge Activity: Return to Normal Activity Weight Bearing Status: Weight bearing as tolerated Dressing / Incision Call your doctor if you observe: Fever of 101 or Higher, Shortness of breath andSwelling in the ankles Follow Up Care Test Results: Test results from this visit will be discussed in further detail at your follow- up appointment, if applicable. Discharge Plan Admission Admit Date/Time: 10/18/24 18:29 Primary Reason for Your Visit: UTI, failure to thrive Attending Provider: Haydee Sanchez Primary Care Provider: Socrates Spangler Consulting Providers: Nico Garcia Instructions Patient Instructions: ED Weakness Uncertain Cause, ED UTIs Women Discharge Orders/Prescriptions Prescriptions: New Eliquis 5 mg tablet 5 mg PO BID Qty: 60 2RF Continued atorvastatin 20 MG tablet 20 mg PO QHS Patient Comments: cholesterol metoprolol tartrate 50 MG tablet 25 mg PO BID Patient Comments: blood pressure hydrocortisone 1 APPLIC cream 1 applicatio topical BID nystatin [Nyamyc] 1 APPLIC bottle 1 applic topical BID 0RF Patient Comments: uses at times docusate sodium 100 MG capsule 100 mg PO DAILY pantoprazole 40 mg tablet,delayed release (DR/EC) 40 mg PO DAILY glipizide 10 mg tablet 10 mg PO BID ergocalciferol (vitamin D2) 1,250 mcg (50,000 unit) capsule 1,250 mcg PO QWEEK hydroxyzine pamoate 25 mg capsule 25 mg PO DAILY PRN (Reason: itching) escitalopram oxalate 10 mg tablet 10 mg PO QHS Patient Comments: at 9PM loratadine [Allergy Relief (loratadine)] 10 mg tablet 10 mg PO DAILY levothyroxine 112 mcg tablet 112 mcg PO DAILY potassium chloride 10 mEq tablet extended release 10 meq PO DAILY nystatin 100,000 unit/gram cream 1 applic topical DAILY Patient Comments: uses at times montelukast 10 mg tablet 10 mg PO DAILY magnesium chloride [Mag 64] 64 mg tablet,delayed release (DR/EC) 64 mg PO DAILY Discontinued insulin glargine-yfgn 100 unit/mL (3 mL) insulin pen 35 unit subcut DAILY Patient Comments: takes 35 units warfarin 5 mg tablet 5 mg PO DAILY Referrals / Follow Up: Socrates Spangler MD [Primary Care Provider] - Within 1 Week Disposition Disposition (needs filled in before D/C Order can be placed): Home Health Service 10/24/24 1105<Electronically signed by Haydee Sanchez MD>Haydee Sanchez MD CC: Dr. Socrates Spangler MD; Dr. Nico Garcia, DO ~ Signed [facility] Work Phone: [phone]) 490-142208-13-2025 Consult note [facility] Medical Records Department [address] [place] [address] Counseling Note - Pharmacy 10/24/24 1147 MR#: [id number] Acct: [id number] Name: TOD HUNT Rep #:[id number] : 1945 78 From: Genoveva Chang PCP: Dr. Socrates Spangler MD Status:ADM I N Y Location: [place] [address] Pharmacy [facility] Counseling Pharmacy Service has performed discharge medication reconciliation and counseling for this patient. 1. APIXABAN 5MG PO BID 2. STOP WARFARIN The patient's discharge medication list was reviewed for discrepancies and discrepancies were resolved. The patient was counseled on the following discharge medications and changes in medications for homegoing were reviewed. The Reason for Use, instructions for use, and potential side effects were reviewed for all new medications. The patient's questions regarding all of their medications were answered. The patient demonstrated some understanding but would benefit from further education and reinforcement. Patient said she isn't sure how much she will rememeber. [facility]. Medications at Discharge Home Medications atorvastatin 20 mg tablet 20 mg PO QHS cholesterol 05/12/16 hydrocortisone 2.5 % topical cream 1 applicatio topical BID rash 05/12/16 metoprolol tartrate 50 mg tablet 25 mg PO BID blood pressure 05/12/16 nystatin 100,000 unit/gram topical powder (Nyamyc) 1 applic topical BID yeast 05/14/16 docusate sodium 100 mg capsule 100 mg PO DAILY stool softner 06/16/24 pantoprazole 40 mg tablet,delayed release 40 mg PO DAILY reflux 06/16/24 ergocalciferol (vitamin D2) 1,250 mcg (50,000 unit) capsule 1,250 mcg PO QWEEK vitamin 10/18/24 escitalopram oxalate 10 mg tablet 10 mg PO QHS mental health 10/18/24 glipizide 10 mg tablet 10 mg PO BID diabetes 10/18/24 hydroxyzine pamoate 25 mg capsule 25 mg PO DAILY PRN itching 10/18/24 levothyroxine 112 mcg tablet 112 mcg PO DAILY thyroid 10/18/24 loratadine 10 mg tablet (Allergy Relief (loratadine)) 10 mg PO DAILY allergies 10/18/24 magnesium chloride 64 mg (magnesium chloride) tablet,delayed release (Mag 64) 64mg PO DAILY supplement 10/18/24 montelukast 10 mg tablet 10 mg PO DAILY allergies 10/18/24 nystatin 100,000 unit/gram topical cream 1 applic topical DAILY rash 10/18/24 potassium chloride 10 mEq tablet,extended release 10 meq PO DAILY supplement 10/18/24 apixaban 5 mg tablet (Eliquis) 5 mg PO BID #60 tabs 10/24/24 10/24/24 1148 Date _ Genoveva Jacob Signature (if applicable): Date CC: ~ Signed [facility]08-13-2025 Discharge summary [facility] Medical Records Department [address] [place] [address] Instructions for Home/Discharge Instructions 10/24/24 1058 MR#: [id number] Acct: [id number] Name: TOD HUNT Rep #:[id number] : 1945 78 From: Haydee Sanchez MD PCP: Dr. Socrates Spangler MD Status:ADM I N Discharge Instructions DC O2, CPAP, BIPAP needs Home O2 Discharge instructions: No Dressing / Incision Discharge Activity: Return to Normal Activity Weight Bearing Status: Weight bearing as tolerated Dressing / Incision Call your doctor if you observe: Fever of 101 or Higher, Shortness of breath andSwelling in the ankles Follow Up Care Test Results: Test results from this visit will be discussed in further detail at your follow- up appointment, if applicable. Discharge Plan Admission Admit Date/Time: 10/18/24 18:29 Primary Reason for Your Visit: UTI, failure to thrive Attending Provider: Haydee Sanchez Primary Care Provider: Socrates Spangler Consulting Providers: Nico Garcia Instructions Patient Instructions: ED Weakness Uncertain Cause, ED UTIs Women Discharge Orders/Prescriptions Prescriptions: New Eliquis 5 mg tablet 5 mg PO BID Qty: 60 2RF Continued atorvastatin 20 MG tablet 20 mg PO QHS Patient Comments: cholesterol metoprolol tartrate 50 MG tablet 25 mg PO BID Patient Comments: blood pressure hydrocortisone 1 APPLIC cream 1 applicatio topical BID nystatin [Nyamyc] 1 APPLIC bottle 1 applic topical BID 0RF Patient Comments: uses at times docusate sodium 100 MG capsule 100 mg PO DAILY pantoprazole 40 mg tablet,delayed release (DR/EC) 40 mg PO DAILY glipizide 10 mg tablet 10 mg PO BID ergocalciferol (vitamin D2) 1,250 mcg (50,000 unit) capsule 1,250 mcg PO QWEEK hydroxyzine pamoate 25 mg capsule 25 mg PO DAILY PRN (Reason: itching) escitalopram oxalate 10 mg tablet 10 mg PO QHS Patient Comments: at 9PM loratadine [Allergy Relief (loratadine)] 10 mg tablet 10 mg PO DAILY levothyroxine 112 mcg tablet 112 mcg PO DAILY potassium chloride 10 mEq tablet extended release 10 meq PO DAILY nystatin 100,000 unit/gram cream 1 applic topical DAILY Patient Comments: uses at times montelukast 10 mg tablet 10 mg PO DAILY magnesium chloride [Mag 64] 64 mg tablet,delayed release (DR/EC) 64 mg PO DAILY Discontinued insulin glargine-yfgn 100 unit/mL (3 mL) insulin pen 35 unit subcut DAILY Patient Comments: takes 35 units warfarin 5 mg tablet 5 mg PO DAILY Referrals / Follow Up: Socrates Spangler MD [Primary Care Provider] - Within 1 Week Disposition Disposition (needs filled in before D/C Order can be placed): Home Health Service 10/24/24 1105Haydee Sanchez MD CC: Dr. Socrates Spangler MD; Dr. Nico Garcia, DO ~ Signed [facility]08-13-2025 [facility]08-12-2025 Progress note Author [facility] Note Date/Time October 23, 2024 3: 49pm [facility] Medical Records Department [address] [place] [address] Progress Note 10/23/24 1542 MR#: [id number] Acct: [id number] Name: TOD HUNT Rep #:[id number] : 1945 78 From: Haydee Sanchez MD PCP: Dr. Socrates Spangler MD Status:ADM I N Location: [place] [address]- Subjective Subjective Patient seen and examined with her nurse by her bedside. She had no active complaints at time of my review. Plan was to discharge her today but the ambulance service that is transporting her home said they would not have enough staff to be able to transport her home today and will be available tomorrow at 12:00 to send enough staff to be able to get her into her home safely. Objective Data Objective Data Vital Signs: Vital Signs Temp Pulse Resp BP Pulse Ox O2 Del Method O2 Flow Rate 97.5 F L 115 H 20 H 100/50 L 97 Nasal Cannula 4 10/23/24 10:50 10/23/24 10:50 10/23/24 10:50 10/23/24 10:50 10/23/24 10:50 10/23/24 10:50 10/23/24 10:50 Oxygen Flow Rate (L/min) 4 Oxygen Delivery Method Nasal Cannula Weight: 449 lb 4.833 oz Body Mass Index (BMI) 72.5 Intake & Output: Intake and Output for Last 24 Hours 10/21/24 10/22/24 10/23/24 23:59 23:59 23:59 Intake Total 2830.83 / 2830.83 1550 / 1550 170 / 170 Output Total 325 / 325 370 / 370 300 / 300 Balance 2505.83 / 2505.83 1180 / 1180 -130 / -130 Lab / Micro Data 10/23/24 05:01 10/23/24 05:01 Labs: Laboratory Results - last 24 hr 10/22/24 16:39: POC Glucose 221 H 10/23/24 00:33: POC Glucose 219 H 10/23/24 05:01: WBC 7.1, RBC 4.24, Hgb 10.6 L, Hct 39.0, MCV 92.0, MCH 25.0 L, MCHC 27.2 L, RDW Std Deviation 57.0 H, RDW Coeff of Ryan 16.9 H, Plt Count 171, MPV 9.4, Immature Gran % (Auto) 0.400, Neut % (Auto) 77.3 H, Lymph % (Auto) 14.9L, Kimball % (Auto) 6.3, Eos % (Auto) 1.0, Baso % (Auto) 0.1, Absolute Neuts (auto)5.5, Absolute Lymphs (auto) 1.06, Nucleated RBC % 0, PT 35.9 H, INR 3.5, Sodium 138, Potassium 4.5, Chloride 105, Carbon Dioxide 25.5, Anion Gap 8, BUN 20 H, Creatinine 1.14, Estim Creat Clear Calc 72.76, Est GFR (MDRD) Non-Af 49 L, BUN/Creatinine Ratio 17.5, Glucose 191 H, Calcium 8.6 10/23/24 06:26: POC Glucose 178 H 10/23/24 11:40: POC Glucose 171 H Micro: Microbiology 10/19/24 10:12 Blood Culture (Wb) - Anticubital Right Blood Culture - Preliminary No growth in 48 hours. 10/19/24 09:49 Blood Culture (Wb) - Breast Blood Culture - Preliminary No growth in 48 hours. 10/18/24 16:39 Urine Catheter - Reese Urine Culture - Final Presumptive E. coli Rhythm Strip Rhythm Strip: Sinus bradycardia Rate: 51 Ectopy: None Physical Exam Const alert, oriented x3 and no apparent distress Constitutional Narrative: Class III obesity with BMI of 71.3. Episodic confusion. General Appearance: cooperative HEENT normocephalic, head/scalp atraumatic and moist oral mucous membranes Eyes PERRL and EOMs intact bilaterally Neck supple Neck Narrative: very short thick neck Lymph Lymphatic: no lymphedema noted Resp normal respiratory effort Resp Narrative: Moderately diminished breath sounds bibasilarly. This may also be due to her class III obesity. No wheezes or crackles. was still on nocturnal bipap at time of review. Cardio regular rate, regular rhythm, S1 normal heart sound, S2 normal heart sound and no murmurs GI normal to inspection, nondistended, normoactive bowel sounds and soft to palpation GI Narrative: Very obese abdomen. Difficult to palpate for organomegaly due to obesity. Extremity normal capillary refill and no clubbing, cyanosis or edema Extremity Narrative: 2+ lower extremity edema General Extremity: no tenderness to palpation of joints or extremities Skin Skin Narrative: Extensive candidiasis in the folds of the abdomen in the neck and under the breasts is improving. Neuro no focal motor deficits and no sensory deficits noted Sensorium / Orientation: awake and alert Motor Exam: general weakness Psych thought process normal, cooperative and affect normal Appearance: appropriate Assessment & Plan Assessment/Plan (1) Cutaneous candidiasis: (2) UTI (urinary tract infection): (3) Failure to thrive: PLAN: Plan #Debility and failure to thrive * Patient lives at home and is taking care of by her who has dementia and is actually not able to provide her with such good care. She says she usually goes to to the bathroom and her clothes and on the bed and her will just change the bed. * She is unable to do much for herself. PT OT on board. Patient will likely need placement, but refusing it as she says she has enough assistance at home. #UTI: On IV ceftriaxone. Urine cultures growing E.coli which is pansensitive. Complete a 5 day course of antibiotics. DC today after 5 days of antibiotics. #Severe cutaneous candidiasis: On Nystatin powder. On p.o. fluconazole due to the severity of the candidiasis #Hyperkalemia: resolved. K is 4.2 today #Hypothyroidism: on synthroid # Type 2 diabetes mellitus: On insulin sliding scale. Accu-Cheks ACHS. #Atrial fibrillation: on metoprolol On Coumadin which is on hold as INR remains supratherapeutic. #Supratherapeutic INR: resolved,. INR still remains 3.5 today. #JAYA: On CPAP Class III obesity: BMI is 71.3. Complicates acute care, expected recovery and prognosis. #Depression: On escitalopram DVT prophylaxis: Not indicated as patient has markedly elevated INR. INR today remains 3.5. Disposition: For discharge tomorrow so ambulance service can safely transport her into her home. They do not have enough staff today to be able to do this and will be able to do it tomorrow. Charges/Coding Visit Charges Inpatient E&M: 68816 Subs Hosp L2 10/23/24 1549 <Electronically signed by Haydee Sanchez MD> Haydee Sanchez MD Cosigner Signature (if applicable): CC: ~ Signed [facility] Work Phone: 1(366) 593-235508-12-2025 Progress note [facility] Medical Records Department [address] [place] [address] Progress Note 10/23/24 1542 MR#: [id number] Acct: [id number] Name: TOD HUNT Rep #:[id number] : 1945 78 From: Haydee Sanchez MD PCP: Dr. Socrates Spangler MD Status:ADM I N Location: [place] [address] Subjective Subjective Patient seen and examined with her nurse by her bedside. She had no active complaints at time of myreview. Plan was to discharge her today but the ambulance service that is transporting her home said they would not have enough staff to be able to transport her home today and will be available tomorrow at 12:00 to send enough staff to be able to get her into her home safely. Objective Data Objective Data Vital Signs: Vital Signs Temp Pulse Resp BP Pulse Ox O2 Del Method O2 Flow Rate 97.5 F L 115 H 20 H 100/50 L 97 Nasal Cannula 4 10/23/24 10:50 10/23/24 10:50 10/23/24 10:50 10/23/24 10:50 10/23/24 10:50 10/23/24 10:50 10/23/24 10:50 Oxygen Flow Rate (L/min) 4 Oxygen Delivery Method Nasal Cannula Weight: 449 lb 4.833 oz Body Mass Index (BMI) 72.5 Intake & Output: Intake and Output for Last 24 Hours 10/21/24 10/22/24 10/23/24 23:59 23:59 23:59 Intake Total 2830.83 / 2830.83 1550 / 1550 170 / 170 Output Total 325 / 325 370 / 370 300 / 300 Balance 2505.83 / 2505.83 1180 / 1180 -130 / -130 Lab / Micro Data 10/23/24 05:01 10/23/24 05:01 Labs: Laboratory Results - last 24 hr 10/22/24 16:39: POC Glucose 221 H 10/23/24 00:33: POC Glucose 219 H 10/23/24 05:01: WBC 7.1, RBC 4.24, Hgb 10.6 L, Hct 39.0, MCV 92.0, MCH 25.0 L, MCHC 27.2 L, RDW StdDeviation 57.0 H, RDW Coeff of Ryan 16.9 H, Plt Count 171, MPV 9.4, Immature Gran % (Auto) 0.400, Neut % (Auto) 77.3 H, Lymph % (Auto) 14.9L, Kimball % (Auto) 6.3, Eos % (Auto) 1.0, Baso % (Auto) 0.1, Absolute Neuts (auto)5.5, Absolute Lymphs (auto) 1.06, Nucleated RBC % 0, PT 35.9 H, INR 3.5, Sodium 138, Potassium 4.5, Chloride 105, Carbon Dioxide 25.5, Anion Gap 8, BUN 20 H, Creatinine 1.14, Estim Creat Clear Calc 72.76, Est GFR (MDRD) Non-Af 49 L, BUN/Creatinine Ratio 17.5, Glucose 191 H, Calcium 8.6 10/23/24 06:26: POC Glucose 178 H 10/23/24 11:40: POC Glucose 171 H Micro: Microbiology 10/19/24 10:12 Blood Culture (Wb) - Anticubital Right Blood Culture - Preliminary No growth in 48 hours. 10/19/24 09:49 Blood Culture (Wb) - Breast Blood Culture - Preliminary No growth in 48 hours. 10/18/24 16:39 Urine Catheter - Reese Urine Culture - Final Presumptive E. coli Rhythm Strip Rhythm Strip: Sinus bradycardia Rate: 51 Ectopy: None Physical Exam Const alert, oriented x3 and no apparent distress Constitutional Narrative: Class III obesity with BMI of 71.3. Episodic confusion. General Appearance: cooperative HEENT normocephalic, head/scalp atraumatic and moist oral mucous membranes Eyes PERRL and EOMs intact bilaterally Neck supple Neck Narrative: very short thick neck Lymph Lymphatic: no lymphedema noted Resp normal respiratory effort Resp Narrative: Moderately diminished breath sounds bibasilarly. This may also be due to her class III obesity. No wheezes or crackles. was still on nocturnal bipap at time of review. Cardio regular rate, regular rhythm, S1 normal heart sound, S2 normal heart sound and no murmurs GI normal to inspection, nondistended, normoactive bowel sounds and soft to palpation GI Narrative: Very obese abdomen. Difficult to palpate for organomegaly due to obesity. Extremity normal capillary refill and no clubbing, cyanosis or edema Extremity Narrative: 2+ lower extremity edema General Extremity: no tenderness to palpation of joints or extremities Skin Skin Narrative: Extensive candidiasis in the folds of the abdomen in the neck and under the breasts is improving. Neuro no focal motor deficits and no sensory deficits noted Sensorium / Orientation: awake and alert Motor Exam: general weakness Psych thought process normal, cooperative and affect normal Appearance: appropriate Assessment & Plan Assessment/Plan (1) Cutaneous candidiasis: (2) UTI (urinary tract infection): (3) Failure to thrive: PLAN: Plan #Debility and failure to thrive * Patient lives at home and is taking care of by her who has dementia and is actually not able to provide her with such good care. She says she usually goes to to the bathroom and her clothesand on the bed and her will just change the bed. * She is unable to do much for herself. PT OT on board. Patient will likely need placement, but refusing it as she says she has enough assistance at home. #UTI: On IV ceftriaxone. Urine cultures growing E.coli which is pansensitive. Complete a 5 day course of antibiotics. DC today after 5 days of antibiotics. #Severe cutaneous candidiasis: On Nystatin powder. On p.o. fluconazole due to the severity of the candidiasis #Hyperkalemia: resolved. K is 4.2 today #Hypothyroidism: on synthroid # Type 2 diabetes mellitus: On insulin sliding scale. Accu-Cheks ACHS. #Atrial fibrillation: on metoprolol On Coumadin which is on hold as INR remains supratherapeutic. #Supratherapeutic INR: resolved,. INR still remains 3.5 today. #JAYA: On CPAP Class III obesity: BMI is 71.3. Complicates acute care, expected recovery and prognosis. #Depression: On escitalopram DVT prophylaxis: Not indicated as patient has markedly elevated INR. INR today remains 3.5. Disposition: For discharge tomorrow so ambulance service can safely transport her into her home. They do not have enough staff today to be able to do this and will be able to do it tomorrow. Charges/Coding Visit Charges Inpatient E&M: 45416 Subs Hosp L2 10/23/24 1548 Haydee Sanchez MD Cosigner Signature (if applicable): CC: ~ Signed [facility]08-11-2025 Progress note Author [facility] Note Date/Time October 22, 2024 5: 01pm [facility] Medical Records Department [address] [place] [address] Progress Note 10/22/24 1322 MR#: [id number] Acct: [id number] Name: TOD HUNT Rep #:[id number] : 1945 78 From: Haydee Sanchez MD PCP: Dr. Socrates Spanlger MD Status:ADM I N Location: [place] [address] Subjective Subjective Patient seen and examined. She complained of pain in her lower extremities. Review of systems is otherwise negative. She has remained hemodynamically stable. She remains on 4L of oxygen by nasal canula Objective Data Objective Data Vital Signs: Vital Signs Temp Pulse Resp BP Pulse Ox O2 Del Method O2 Flow Rate 97.8 F 85 18 129/99 H 95 Nasal Cannula 4 10/22/24 09:00 10/22/24 09:00 10/22/24 09:00 10/22/24 09:00 10/22/24 09:00 10/22/24 10:00 10/22/24 10:00 Oxygen Flow Rate (L/min) 4 Oxygen Delivery Method Nasal Cannula Weight: 449 lb 4.833 oz Body Mass Index (BMI) 72.5 Intake & Output: Intake and Output for Last 24 Hours 10/20/24 10/21/24 10/22/24 23:59 23:59 23:59 Intake Total 1674.50 / 1674.50 2830.83 / 2830.83 1150 / 1150 Output Total 840 / 840 325 / 325 250 / 250 Balance 834.50 / 834.50 2505.83 / 2505.83 900 / 900 Lab / Micro Data 10/22/24 07:20 10/22/24 07:20 Labs: Laboratory Results - last 24 hr 10/21/24 16:53: POC Glucose 164 H 10/21/24 20:15: POC Glucose 246 H 10/22/24 06:24: POC Glucose 165 H 10/22/24 07:20: WBC 7.5, RBC 3.99 L, Hgb 10.1 L, Hct 35.7 L, MCV 89.5, MCH 25.3 L, MCHC 28.3 L, RDW Std Deviation 54.9 H, RDW Coeff of Ryan 16.7 H, Plt Count 164, MPV 9.0, Immature Gran % (Auto) 0.500, Neut % (Auto) 66.3, Lymph % (Auto) 23.0, Kimball % (Auto) 7.1, Eos % (Auto) 2.7, Baso % (Auto) 0.4, Absolute Neuts (auto) 4.9, Absolute Lymphs (auto) 1.71, Nucleated RBC % 0, PT 35.8 H, INR 3.5, Sodium 139, Potassium 4.2, Chloride 105, Carbon Dioxide 26.7, Anion Gap 7, BUN 21 H, Creatinine 1.17, Estim Creat Clear Calc 70.89, Est GFR (MDRD) Non-Af 47 L,BUN/Creatinine Ratio 17.9, Glucose 178 H, Calcium 8.4 10/22/24 12:20: POC Glucose 214 H Micro: Microbiology 10/19/24 10:12 Blood Culture (Wb) - Anticubital Right Blood Culture - Preliminary No growth in 48 hours. 10/19/24 09:49 Blood Culture (Wb) - Breast Blood Culture - Preliminary No growth in 48 hours. 10/18/24 16:39 Urine Catheter - Reese Urine Culture - Final Presumptive E. coli Rhythm Strip Rhythm Strip: Sinus bradycardia Rate: 51 Ectopy: None Physical Exam Const alert, oriented x3 and no apparent distress Constitutional Narrative: Class III obesity with BMI of 71.3. Episodic confusion. General Appearance: cooperative HEENT normocephalic, head/scalp atraumatic and moist oral mucous membranes Eyes PERRL and EOMs intact bilaterally Neck supple Neck Narrative: very short thick neck Lymph Lymphatic: no lymphedema noted Resp Resp Narrative: Moderately diminished breath sounds bibasilarly. This may also be due to her class III obesity. No wheezes or crackles. On 4L of oxygen by nasal canula Cardio regular rate, regular rhythm, S1 normal heart sound, S2 normal heart sound and no murmurs GI GI Narrative: Very obese abdomen. Difficult to palpate for organomegaly due to obesity. Extremity normal capillary refill and no clubbing, cyanosis or edema Extremity Narrative: 2+ lower extremity edema General Extremity: no tenderness to palpation of joints or extremities Skin Skin Narrative: Extensive candidiasis in the folds of the abdomen in the neck and under the breasts. Neuro no focal motor deficits Sensorium / Orientation: awake and alert Motor Exam: general weakness Psych thought process normal, cooperative and affect normal Appearance: appropriate Assessment & Plan Assessment/Plan (1) Cutaneous candidiasis: (2) UTI (urinary tract infection): (3) Failure to thrive: PLAN: Plan #Debility and failure to thrive * Patient lives at home and is taking care of by her who has dementia and is actually not able to provide her with such good care. She says she usually goes to to the bathroom and her clothes and on the bed and her will just change the bed. * She is unable to do much for herself. PT OT on board. Patient will likely need placement, but refusing it as she says she has enough assistance at home. #UTI: On IV ceftriaxone. Urine cultures growing E.coli which is pansensitive. Complete a 5 day course of antibiotics. Today is day 4. One more day of IV antibiotics to complete a 5 day course. #Severe cutaneous candidiasis: Nystatin powder. On p.o. fluconazole due to the severity of the candidiasis #Hyperkalemia: resolved. K is 4.2 today #Hypothyroidism: on synthroid # Type 2 diabetes mellitus: On insulin sliding scale. Accu-Cheks ACHS. #Atrial fibrillation: on metoprolol On Coumadin which is on hold as INR remains supratherapeutic. #Supratherapeutic INR: resolved,. INR remains 3.5 today. #JAYA: On CPAP Class III obesity: BMI is 71.3. Complicates acute care, expected recovery and prognosis. #Depression: On escitalopram DVT prophylaxis: Not indicated as patient has markedly elevated INR. INR today remains 3.5. Disposition: refusing placement. Stable for DC, but wants to leave tomorrow as she doesnt have anyone to help her get into her house today. FOr DC tomorrow. Charges/Coding Visit Charges Inpatient E&M: 16932 Subs Hosp L2 10/22/24 1701 <Electronically signed by Haydee Sanchez MD> Haydee Sanchez MD Cosigner Signature (if applicable): CC: ~ Signed [facility] Work Phone: [phone]) 886-963808-11-2025 Progress note [facility] Medical Records Department [address] [place] [id number] Progress Note 10/22/24 1322 MR#: [id number] Acct: [id number] Name: TOD HUNT Rep #:[id number] : 1945 78 From: Haydee Sanchez MD PCP: Dr. Socrates Spangler MD Status:ADM I N Location: [place] [address] Subjective Subjective Patient seen and examined. She complained of pain in her lower extremities. Review of systems is otherwise negative. She has remained hemodynamically stable. She remains on 4L of oxygen by nasal canula Objective Data Objective Data Vital Signs: Vital Signs Temp Pulse Resp BP Pulse Ox O2 Del Method O2 Flow Rate 97.8 F 85 18 129/99 H 95 Nasal Cannula 4 10/22/24 09:00 10/22/24 09:00 10/22/24 09:00 10/22/24 09:00 10/22/24 09:00 10/22/24 10:00 10/22/24 10:00 Oxygen Flow Rate (L/min) 4 Oxygen Delivery Method Nasal Cannula Weight: 449 lb 4.833 oz Body Mass Index (BMI) 72.5 Intake & Output: Intake and Output for Last 24 Hours 10/20/24 10/21/24 10/22/24 23:59 23:59 23:59 Intake Total 1674.50 / 1674.50 2830.83 / 2830.83 1150 / 1150 Output Total 840 / 840 325 / 325 250 / 250 Balance 834.50 / 834.50 2505.83 / 2505.83 900 / 900 Lab / Micro Data 10/22/24 07:20 10/22/24 07:20 Labs: Laboratory Results - last 24 hr 10/21/24 16:53: POC Glucose 164 H 10/21/24 20:15: POC Glucose 246 H 10/22/24 06:24: POC Glucose 165 H 10/22/24 07:20: WBC 7.5, RBC 3.99 L, Hgb 10.1 L, Hct 35.7 L, MCV 89.5, MCH 25.3 L, MCHC 28.3 L, RDWStd Deviation 54.9 H, RDW Coeff of Ryan 16.7 H, Plt Count 164, MPV 9.0, Immature Gran % (Auto) 0.500, Neut % (Auto) 66.3, Lymph % (Auto) 23.0, Kimball % (Auto) 7.1, Eos % (Auto) 2.7, Baso % (Auto) 0.4, Absolute Neuts (auto) 4.9, Absolute Lymphs (auto) 1.71, Nucleated RBC % 0, PT 35.8 H, INR 3.5, Sodium 139, Potassium 4.2, Chloride 105, Carbon Dioxide 26.7, Anion Gap 7, BUN 21 H, Creatinine 1.17, Estim Creat Clear Calc 70.89, Est GFR (MDRD) Non-Af 47 L,BUN/Creatinine Ratio 17.9, Glucose 178 H, Calcium 8.4 10/22/24 12:20: POC Glucose 214 H Micro: Microbiology 10/19/24 10:12 Blood Culture (Wb) - Anticubital Right Blood Culture - Preliminary No growth in 48 hours. 10/19/24 09:49 Blood Culture (Wb) - Breast Blood Culture - Preliminary No growth in 48 hours. 10/18/24 16:39 Urine Catheter - Reese Urine Culture - Final Presumptive E. coli Rhythm Strip Rhythm Strip: Sinus bradycardia Rate: 51 Ectopy: None Physical Exam Const alert, oriented x3 and no apparent distress Constitutional Narrative: Class III obesity with BMI of 71.3. Episodic confusion. General Appearance: cooperative HEENT normocephalic, head/scalp atraumatic and moist oral mucous membranes Eyes PERRL and EOMs intact bilaterally Neck supple Neck Narrative: very short thick neck Lymph Lymphatic: no lymphedema noted Resp Resp Narrative: Moderately diminished breath sounds bibasilarly. This may also be due to her class III obesity. No wheezes or crackles. On 4L of oxygen by nasal canula Cardio regular rate, regular rhythm, S1 normal heart sound, S2 normal heart sound and no murmurs GI GI Narrative: Very obese abdomen. Difficult to palpate for organomegaly due to obesity. Extremity normal capillary refill and no clubbing, cyanosis or edema Extremity Narrative: 2+ lower extremity edema General Extremity: no tenderness to palpation of joints or extremities Skin Skin Narrative: Extensive candidiasis in the folds of the abdomen in the neck and under the breasts. Neuro no focal motor deficits Sensorium / Orientation: awake and alert Motor Exam: general weakness Psych thought process normal, cooperative and affect normal Appearance: appropriate Assessment & Plan Assessment/Plan (1) Cutaneous candidiasis: (2) UTI (urinary tract infection): (3) Failure to thrive: PLAN: Plan #Debility and failure to thrive * Patient lives at home and is taking care of by her who has dementia and is actually not able to provide her with such good care. She says she usually goes to to the bathroom and her clothesand on the bed and her will just change the bed. * She is unable to do much for herself. PT OT on board. Patient will likely need placement, but refusing it as she says she has enough assistance at home. #UTI: On IV ceftriaxone. Urine cultures growing E.coli which is pansensitive. Complete a 5 day course of antibiotics. Today is day 4. One more day of IV antibiotics to complete a 5 day course. #Severe cutaneous candidiasis: Nystatin powder. On p.o. fluconazole due to the severity of the candidiasis #Hyperkalemia: resolved. K is 4.2 today #Hypothyroidism: on synthroid # Type 2 diabetes mellitus: On insulin sliding scale. Accu-Cheks ACHS. #Atrial fibrillation: on metoprolol On Coumadin which is on hold as INR remains supratherapeutic. #Supratherapeutic INR: resolved,. INR remains 3.5 today. #JAYA: On CPAP Class III obesity: BMI is 71.3. Complicates acute care, expected recovery and prognosis. #Depression: On escitalopram DVT prophylaxis: Not indicated as patient has markedly elevated INR. INR today remains 3.5. Disposition: refusing placement. Stable for DC, but wants to leave tomorrow as she doesnt have anyone to help her get into her house today. FOr DC tomorrow. Charges/Coding Visit Charges Inpatient E&M: 60144 Subs Hosp L2 10/22/24 1701 Haydee Sanchez MD Cosigner Signature (if applicable): CC: ~ Signed [facility]08-10-2025 Progress note Author [facility] Note Date/Time October 21, 2024 12 :26pm [facility] Medical Records Department [address] [place] [address] Progress Note 10/21/24 1214 MR#: [id number] Acct: [id number] Name: TOD HUNT Rep #:[id number] : 1945 78 From: Haydee Sanchez MD PCP: Dr. Socrates Spangler MD Status:ADM I N Location: [place] [address] Subjective Subjective Patient seen and examined. Disorder with the nurse by bedside. No active complaints. She is on 5 L of oxygen by nasal cannula today.. Urine culture growing E. coli which is pansensitive. Blood cultures negative. Objective Data Objective Data Vital Signs: Vital Signs Temp Pulse Resp BP Pulse Ox O2 Del Method O2 Flow Rate 97.7 F L 83 17 136/49 H 94 CPAP 5 10/21/24 08:48 10/21/24 08:48 10/21/24 08:48 10/21/24 08:48 10/21/24 08:48 10/21/24 09:11 10/21/24 09:11 Oxygen Flow Rate (L/min) 5 Oxygen Delivery Method CPAP Weight: 441 lb 9.374 oz Body Mass Index (BMI) 71.2 Intake & Output: Intake and Output for Last 24 Hours 10/19/24 10/20/24 10/21/24 23:59 23:59 23:59 Intake Total 3606.25 / 3606.25 1674.50 / 1674.50 / Output Total 225 / 225 840 / 840 Balance 3381.25 / 3381.25 834.50 / 834.50 / Lab / Micro Data 10/21/24 06:29 10/21/24 06:29 Labs: Laboratory Results - last 24 hr 10/20/24 17:06: POC Glucose 141 H 10/20/24 20:23: POC Glucose 183 H 10/21/24 06:23: POC Glucose 129 H 10/21/24 06:29: WBC 7.7, RBC 4.06 L, Hgb 10.5 L, Hct 36.1 L, MCV 88.9, MCH 25.9 L, MCHC 29.1 L, RDW Std Deviation 54.5 H, RDW Coeff of Ryan 16.7 H, Plt Count 184, MPV 9.2, Immature Gran % (Auto) 0.400, Neut % (Auto) 70.0, Lymph % (Auto) 20.1, Kimball % (Auto) 7.9, Eos % (Auto) 1.2, Baso % (Auto) 0.4, Absolute Neuts (auto) 5.4, Absolute Lymphs (auto) 1.54, Nucleated RBC % 0.3, PT 35.6 H, INR 3.5, Sodium 139, Potassium 4.7, Chloride 104, Carbon Dioxide 24.3, Anion Gap 10,BUN 20 H, Creatinine 1.18, Estim Creat Clear Calc 69.45, Est GFR (MDRD) Non-Af 47 L, BUN/Creatinine Ratio 17.3, Glucose 132 H, Calcium 8.3 10/21/24 11:42: POC Glucose 162 H Micro: Microbiology 10/19/24 10:12 Blood Culture (Wb) - Anticubital Right Blood Culture - Preliminary No growth in 48 hours. 10/19/24 09:49 Blood Culture (Wb) - Breast Blood Culture - Preliminary No growth in 48 hours. 10/18/24 16:39 Urine Catheter - Reese Urine Culture - Final Presumptive E. coli Rhythm Strip Rhythm Strip: Sinus bradycardia Rate: 51 Ectopy: None Physical Exam Const alert and no apparent distress Constitutional Narrative: Class III obesity with BMI of 71.3. Episodic confusion. General Appearance: cooperative HEENT normocephalic, head/scalp atraumatic and moist oral mucous membranes Eyes PERRL and EOMs intact bilaterally Neck supple Neck Narrative: very short thick neck Lymph Lymphatic: no lymphedema noted Resp normal respiratory effort, no retractions, no use of accessory muscles and clearto auscultation bilaterally Resp Narrative: Moderately diminished breath sounds bibasilarly. This may also be due to her class III obesity. No wheezes or crackles. Was on 5 L of oxygen at time of review Cardio regular rate, regular rhythm, S1 normal heart sound, S2 normal heart sound and no murmurs GI normal to inspection, nondistended, normoactive bowel sounds, soft to palpation,non-tender and non-distended GI Narrative: Very obese abdomen. Difficult to palpate for organomegaly due to obesity. Extremity normal capillary refill and no clubbing, cyanosis or edema Extremity Narrative: 2+ lower extremity edema General Extremity: no tenderness to palpation of joints or extremities Skin Skin Narrative: Extensive candidiasis in the folds of the abdomen in the neck and under the breasts. Neuro no focal motor deficits Sensorium / Orientation: awake and alert Motor Exam: general weakness Psych thought process normal, cooperative and affect normal Appearance: appropriate Assessment & Plan Assessment/Plan (1) Cutaneous candidiasis: (2) UTI (urinary tract infection): (3) Failure to thrive: PLAN: Plan #Debility and failure to thrive * Patient lives at home and is taking care of by her who has dementia and is actually not able to provide her with such good care. She says she usually goes to to the bathroom and her clothes and on the bed and her will just change the bed. * She is unable to do much for herself. PT OT on board. Patient will likely need placement, but refusing it as she says she has enough assistance at home. #UTI: On IV ceftriaxone. Urine cultures growing E.coli which is pansensitive. Complete a 5 day course of antibiotics #Severe cutaneous candidiasis: Nystatin powder. Also started on p.o. fluconazole due to the severity of the candidiasis #Hyperkalemia: resolved. K is 4.7 today #Hypothyroidism: on synthroid # Type 2 diabetes mellitus: On insulin sliding scale. Accu-Cheks ACHS. #Atrial fibrillation: on metoprolol On Coumadin which is on hold as INR remains supratherapeutic.\ #Supratherapeutic INR: resolved,. INR is down to 3.5 today. #JAYA: On CPAP Class III obesity: BMI is 71.3. Complicates acute care, expected recovery and prognosis. #Depression: On escitalopram DVT prophylaxis: Not indicated as patient has markedly elevated INR. INR today is down to 3.5. Resume coumadin tomorrow once INR is closer to normal range Disposition: refusing placement. Likely DC over next 24-48 hours Charges/Coding Visit Charges Inpatient E&M: 56944 Subs Hosp L2 10/21/24 1226 <Electronically signed by Haydee Sanchez MD> Haydee Sanchez MD Cosigner Signature (if applicable): CC: ~ Signed [facility] Work Phone: 1([phone] 791-216308-10-2025 Progress note [facility] Medical Records Department [address] [facility] [place] [address] Progress Note 10/21/24 1214 MR#: [id number] Acct: [id number] Name: TOD HUNT Rep #:[id number] : 1945 78 From: Haydee Sanchez MD PCP: Dr. Socrates Spangler MD Status:ADM I N Location: [place] [address] Subjective Subjective Patient seen and examined. Disorder with the nurse by bedside. No active complaints. She is on 5 L of oxygen by nasal cannula today.. Urine culture growing E. coli which is pansensitive. Blood cultures negative. Objective Data Objective Data Vital Signs: Vital Signs Temp Pulse Resp BP Pulse Ox O2 Del Method O2 Flow Rate 97.7 F L 83 17 136/49 H 94 CPAP 5 10/21/24 08:48 10/21/24 08:48 10/21/24 08:48 10/21/24 08:48 10/21/24 08:48 08/10/25 09:11 10/21/24 09:11 Oxygen Flow Rate (L/min) 5 Oxygen Delivery Method CPAP Weight: 441 lb 9.374 oz Body Mass Index (BMI) 71.2 Intake & Output: Intake and Output for Last 24 Hours 10/19/24 10/20/24 10/21/24 23:59 23:59 23:59 Intake Total 3606.25 / 3606.25 1674.50 / 1674.50 / Output Total 225 / 225 840 / 840 Balance 3381.25 / 3381.25 834.50 / 834.50 / Lab / Micro Data 10/21/24 06:29 10/21/24 06:29 Labs: Laboratory Results - last 24 hr 10/20/24 17:06: POC Glucose 141 H 10/20/24 20:23: POC Glucose 183 H 10/21/24 06:23: POC Glucose 129 H 10/21/24 06:29: WBC 7.7, RBC 4.06 L, Hgb 10.5 L, Hct 36.1 L, MCV 88.9, MCH 25.9 L, MCHC 29.1 L, RDWStd Deviation 54.5 H, RDW Coeff of Ryan 16.7 H, Plt Count 184, MPV 9.2, Immature Gran % (Auto) 0.400, Neut % (Auto) 70.0, Lymph % (Auto) 20.1, Kimball % (Auto) 7.9, Eos % (Auto) 1.2, Baso % (Auto) 0.4, Absolute Neuts (auto) 5.4, Absolute Lymphs (auto) 1.54, Nucleated RBC % 0.3, PT 35.6 H, INR 3.5, Sodiu m 139, Potassium 4.7, Chloride 104, Carbon Dioxide 24.3, Anion Gap 10,BUN 20 H, Creatinine 1.18, Estim Creat Clear Calc 69.45, Est GFR (MDRD) Non-Af 47 L, BUN/Creatinine Ratio 17.3, Glucose 132 H, Calcium 8.3 10/21/24 11:42: POC Glucose 162 H Micro: Microbiology 10/19/24 10:12 Blood Culture (Wb) - Anticubital Right Blood Culture - Preliminary No growth in 48 hours. 10/19/24 09:49 Blood Culture (Wb) - Breast Blood Culture - Preliminary No growth in 48 hours. 10/18/24 16:39 Urine Catheter - Reese Urine Culture - Final Presumptive E. coli Rhythm Strip Rhythm Strip: Sinus bradycardia Rate: 51 Ectopy: None Physical Exam Const alert and no apparent distress Constitutional Narrative: Class III obesity with BMI of 71.3. Episodic confusion. General Appearance: cooperative HEENT normocephalic, head/scalp atraumatic and moist oral mucous membranes Eyes PERRL and EOMs intact bilaterally Neck supple Neck Narrative: very short thick neck Lymph Lymphatic: no lymphedema noted Resp normal respiratory effort, no retractions, no use of accessory muscles and clearto auscultation bilaterally Resp Narrative: Moderately diminished breath sounds bibasilarly. This may also be due to her class III obesity. No wheezes or crackles. Was on 5 L of oxygen at time of review Cardio regular rate, regular rhythm, S1 normal heart sound, S2 normal heart sound and no murmurs GI normal to inspection, nondistended, normoactive bowel sounds, soft to palpation,non-tender and non-distended GI Narrative: Very obese abdomen. Difficult to palpate for organomegaly due to obesity. Extremity normal capillary refill and no clubbing, cyanosis or edema Extremity Narrative: 2+ lower extremity edema General Extremity: no tenderness to palpation of joints or extremities Skin Skin Narrative: Extensive candidiasis in the folds of the abdomen in the neck and under the breasts. Neuro no focal motor deficits Sensorium / Orientation: awake and alert Motor Exam: general weakness Psych thought process normal, cooperative and affect normal Appearance: appropriate Assessment & Plan Assessment/Plan (1) Cutaneous candidiasis: (2) UTI (urinary tract infection): (3) Failure to thrive: PLAN: Plan #Debility and failure to thrive * Patient lives at home and is taking care of by her who has dementia and is actually not able to provide her with such good care. She says she usually goes to to the bathroom and her clothesand on the bed and her will just change the bed. * She is unable to do much for herself. PT OT on board. Patient will likely need placement, but refusing it as she says she has enough assistance at home. #UTI: On IV ceftriaxone. Urine cultures growing E.coli which is pansensitive. Complete a 5 day course of antibiotics #Severe cutaneous candidiasis: Nystatin powder. Also started on p.o. fluconazole due to the severity of the candidiasis #Hyperkalemia: resolved. K is 4.7 today #Hypothyroidism: on synthroid # Type 2 diabetes mellitus: On insulin sliding scale. Accu-Cheks ACHS. #Atrial fibrillation: on metoprolol On Coumadin which is on hold as INR remains supratherapeutic.\ #Supratherapeutic INR: resolved,. INR is down to 3.5 today. #JAYA: On CPAP Class III obesity: BMI is 71.3. Complicates acute care, expected recovery and prognosis. #Depression: On escitalopram DVT prophylaxis: Not indicated as patient has markedly elevated INR. INR today is down to 3.5. Resume coumadin tomorrow once INR is closer to normal range Disposition: refusing placement. Likely DC over next 24-48 hours Charges/Coding Visit Charges Inpatient E&M: 82658 Subs Hosp L2 10/21/24 1226 Haydee Sanchez MD Cosigner Signature (if applicable): CC: ~ Signed [facility]08-09-2025 Progress note Author [facility] Note Date/Time October 20, 2024 4:2 3pm [facility] Medical Records Department [address] [place] [address] Progress Note 10/20/24 1050 MR#: [id number] Acct: [id number] Name: TOD HUNT Rep #:[id number] : 1945 78 From: Haydee Sanchez MD PCP: Dr. Socrates Spangler MD Status:ADM I N Location: [place] [address] Subjective Subjective Patient seen and examined with her nurse by her bedside. She was noted to have some episode of confusion overnight. She is on 4 L of oxygen today. She has noother complaints. Her INR is down to 4.9 today. Potassium is still however at 5.5. Review of systems otherwise negative. Objective Data Objective Data Vital Signs: Vital Signs Temp Pulse Resp BP Pulse Ox O2 Del Method O2 Flow Rate 97.7 F L 83 18 102/52 L 92 Nasal Cannula 4 10/20/24 08:55 10/20/24 08:55 10/20/24 08:55 10/20/24 08:55 10/20/24 08:55 10/20/24 08:55 10/20/24 08:55 Oxygen Flow Rate (L/min) 4 Oxygen Delivery Method Nasal Cannula Weight: 441 lb 9.374 oz Body Mass Index (BMI) 71.2 Intake & Output: Intake and Output for Last 24 Hours 10/18/24 10/19/24 10/20/24 23:59 23:59 23:59 Intake Total 290 / 290 3606.25 / 3606.25 1250.00 / 1250.00 Output Total 225 / 225 215 / 215 Balance 290 / 290 3381.25 / 3381.25 1035.00 / 1035.00 Lab / Micro Data 10/20/24 02:57 10/20/24 02:57 Labs: Laboratory Results - last 24 hr 10/19/24 09:49: Lactic Acid < 1.0 10/19/24 11:09: POC Glucose 113 H 10/19/24 15:43: POC Glucose 133 H 10/19/24 20:47: POC Glucose 124 H 10/19/24 23:20: Potassium 5.8 H 10/20/24 02:57: WBC 10.3, RBC 4.25, Hgb 10.8 L, Hct 38.9, MCV 91.5, MCH 25.4 L, MCHC 27.8 L, RDW Std Deviation 55.8 H, RDW Coeff of Ryan 16.5 H, Plt Count 191, MPV 9.4, Immature Gran % (Auto) 0.200, Neut % (Auto) 81.9 H, Lymph % (Auto) 10.6L, Kimball % (Auto) 7.0, Eos % (Auto) 0.2, Baso % (Auto) 0.1, Absolute Neuts (auto)8.5 H, Absolute Lymphs (auto) 1.10, Nucleated RBC % 0, PT 46.7 H, INR 4.9 H*, Sodium 142, Potassium 5.5 H, Chloride 106, Carbon Dioxide 28.8, Anion Gap 7, BUN21 H, Creatinine 1.20, Estim Creat Clear Calc 68.30, Est GFR (MDRD) Non-Af 46 L,BUN/Creatinine Ratio 17.2, Glucose 103 H, Calcium 8.8 10/20/24 06:31: POC Glucose 92 Micro: Microbiology 10/18/24 16:39 Urine Catheter - Reese Urine Culture - Final Presumptive E. coli Rhythm Strip Rhythm Strip: Sinus bradycardia Rate: 51 Ectopy: None Physical Exam Const alert and no apparent distress Constitutional Narrative: Class III obesity with BMI of 71.3. Episodic confusion. General Appearance: cooperative HEENT normocephalic, head/scalp atraumatic and moist oral mucous membranes Eyes PERRL and EOMs intact bilaterally Neck supple Neck Narrative: very short thick neck Lymph Lymphatic: no lymphedema noted Resp normal respiratory effort, no retractions, no use of accessory muscles and clearto auscultation bilaterally Resp Narrative: Moderately diminished breath sounds bibasilarly. This may also be due to her class III obesity. No wheezes or crackles. Was on 4L of oxygen at time of review this subsequently went up to 4 L. Cardio regular rate, regular rhythm, S1 normal heart sound, S2 normal heart sound and no murmurs GI normal to inspection, nondistended, normoactive bowel sounds, soft to palpation and non-tender GI Narrative: Very obese abdomen. Difficult to palpate for organomegaly due to obesity. Extremity normal capillary refill and no clubbing, cyanosis or edema Extremity Narrative: 2+ lower extremity edema General Extremity: no tenderness to palpation of joints or extremities Skin Skin Narrative: Extensive candidiasis in the folds of the abdomen in the neck and under the breasts. Neuro no focal motor deficits Sensorium / Orientation: awake and alert Motor Exam: general weakness Psych thought process normal, cooperative and affect normal Appearance: appropriate Assessment & Plan Assessment/Plan (1) Cutaneous candidiasis: (2) UTI (urinary tract infection): (3) Failure to thrive: PLAN: Plan #Debility and failure to thrive * Patient lives at home and is taking care of by her who has dementia and is actually not able to provide her with such good care. She says she usually goes to to the bathroom and her clothes and on the bed and her will just change the bed. * She is unable to do much for herself. PT OT on board. Patient will likely need placement. #UTI: On IV ceftriaxone. Urine cultures growing E.coli which is pansensitive. #Severe cutaneous candidiasis: Nystatin powder. Also started on p.o. fluconazole due to the severity of the candidiasis #Hyperkalemia: Potassium is 5.5 today. Will give kayexalate again. Hold all nephrotoxic meds. #Hypothyroidism: on synthroid # Type 2 diabetes mellitus: On insulin sliding scale. Accu-Cheks ACHS. #Atrial fibrillation: Was in sinus bradycardia on admission. Bradycardia has resolved. Will resume metoprolol. On Coumadin which is on hold as INR remainssupratherapeutic.\ #Supratherapeutic INR: INR 5.8 yesterday so we will give patient p.o. vitamin K 2.5 mg x 1. INR today is 4.9. Continue holding Coumadin. #JAYA: On CPAP Class III obesity: BMI is 71.3. Complicates acute care, expected recovery and prognosis. #Depression: On escitalopram DVT prophylaxis: Not indicated as patient has markedly elevated INR. INR today is 4.9. Charges/Coding Visit Charges Inpatient E&M: 26907 Subs Hosp L2 10/20/24 1623 <Electronically signed by Haydee Sanchez MD> Haydee Sanchez MD Cosigner Signature (if applicable): CC: ~ Signed [facility] Work Phone: 1(454) 929-142908-09-2025 Progress note [facility] Medical Records Department [address] [place] [address] Progress Note 10/20/24 1050 MR#: [id number] Acct: [id number] Name: TOD HUNT Rep #:[id number] : 1945 78 From: Haydee Sanchez MD PCP: Dr. Socrates Spangler MD Status:ADM I N Location: [place] [address] Subjective Subjective Patient seen and examined with her nurse by her bedside. She was noted to have some episode of confusion overnight. She is on 4 L of oxygen today. She has noother complaints. Her INR is down to 4.9 today. Potassium is still however at 5.5. Review of systems otherwise negative. Objective Data Objective Data Vital Signs: Vital Signs Temp Pulse Resp BP Pulse Ox O2 Del Method O2 Flow Rate 97.7 F L 83 18 102/52 L 92 Nasal Cannula 4 10/20/24 08:55 10/20/24 08:55 10/20/24 08:55 10/20/24 08:55 10/20/24 08:55 10/20/24 08:55 10/20/24 08:55 Oxygen Flow Rate (L/min) 4 Oxygen Delivery Method Nasal Cannula Weight: 441 lb 9.374 oz Body Mass Index (BMI) 71.2 Intake & Output: Intake and Output for Last 24 Hours 10/18/24 10/19/24 10/20/24 23:59 23:59 23:59 Intake Total 290 / 290 3606.25 / 3606.25 1250.00 / 1250.00 Output Total 225 / 225 215 / 215 Balance 290 / 290 3381.25 / 3381.25 1035.00 / 1035.00 Lab / Micro Data 10/20/24 02:57 10/20/24 02:57 Labs: Laboratory Results - last 24 hr 10/19/24 09:49: Lactic Acid < 1.0 10/19/24 11:09: POC Glucose 113 H 10/19/24 15:43: POC Glucose 133 H 10/19/24 20:47: POC Glucose 124 H 10/19/24 23:20: Potassium 5.8 H 10/20/24 02:57: WBC 10.3, RBC 4.25, Hgb 10.8 L, Hct 38.9, MCV 91.5, MCH 25.4 L, MCHC 27.8 L, RDW Std Deviation 55.8 H, RDW Coeff of Ryan 16.5 H, Plt Count 191, MPV 9.4, Immature Gran % (Auto) 0.200, Neut % (Auto) 81.9 H, Lymph % (Auto) 10.6L, Kimball % (Auto) 7.0, Eos % (Auto) 0.2, Baso % (Auto) 0.1, Absolute Neuts (auto)8.5 H, Absolute Lymphs (auto) 1.10, Nucleated RBC % 0, PT 46.7 H, INR 4.9 H*, Sodium 142, Potassium 5.5 H, Chloride 106, Carbon Dioxide 28.8, Anion Gap 7, BUN21 H, Creatinine 1.20,Estim Creat Clear Calc 68.30, Est GFR (MDRD) Non-Af 46 L,BUN/Creatinine Ratio 17.2, Glucose 103 H, Calcium 8.8 10/20/24 06:31: POC Glucose 92 Micro: Microbiology 10/18/24 16:39 Urine Catheter - Reese Urine Culture - Final Presumptive E. coli Rhythm Strip Rhythm Strip: Sinus bradycardia Rate: 51 Ectopy: None Physical Exam Const alert and no apparent distress Constitutional Narrative: Class III obesity with BMI of 71.3. Episodic confusion. General Appearance: cooperative HEENT normocephalic, head/scalp atraumatic and moist oral mucous membranes Eyes PERRL and EOMs intact bilaterally Neck supple Neck Narrative: very short thick neck Lymph Lymphatic: no lymphedema noted Resp normal respiratory effort, no retractions, no use of accessory muscles and clearto auscultation bilaterally Resp Narrative: Moderately diminished breath sounds bibasilarly. This may also be due to her class III obesity. No wheezes or crackles. Was on 4L of oxygen at time of review this subsequently went up to 4 L. Cardio regular rate, regular rhythm, S1 normal heart sound, S2 normal heart sound and no murmurs GI normal to inspection, nondistended, normoactive bowel sounds, soft to palpation and non-tender GI Narrative: Very obese abdomen. Difficult to palpate for organomegaly due to obesity. Extremity normal capillary refill and no clubbing, cyanosis or edema Extremity Narrative: 2+ lower extremity edema General Extremity: no tenderness to palpation of joints or extremities Skin Skin Narrative: Extensive candidiasis in the folds of the abdomen in the neck and under the breasts. Neuro no focal motor deficits Sensorium / Orientation: awake and alert Motor Exam: general weakness Psych thought process normal, cooperative and affect normal Appearance: appropriate Assessment & Plan Assessment/Plan (1) Cutaneous candidiasis: (2) UTI (urinary tract infection): (3) Failure to thrive: PLAN: Plan #Debility and failure to thrive * Patient lives at home and is taking care of by her who has dementia and is actually not able to provide her with such good care. She says she usually goes to to the bathroom and her clothesand on the bed and her will just change the bed. * She is unable to do much for herself. PT OT on board. Patient will likely need placement. #UTI: On IV ceftriaxone. Urine cultures growing E.coli which is pansensitive. #Severe cutaneous candidiasis: Nystatin powder. Also started on p.o. fluconazole due to the severity of the candidiasis #Hyperkalemia: Potassium is 5.5 today. Will give kayexalate again. Hold all nephrotoxic meds. #Hypothyroidism: on synthroid # Type 2 diabetes mellitus: On insulin sliding scale. Accu-Cheks ACHS. #Atrial fibrillation: Was in sinus bradycardia on admission. Bradycardia has resolved. Will resume metoprolol. On Coumadin which is on hold as INR remainssupratherapeutic.\ #Supratherapeutic INR: INR 5.8 yesterday so we will give patient p.o. vitamin K 2.5 mg x 1. INR today is 4.9. Continue holding Coumadin. #JAYA: On CPAP Class III obesity: BMI is 71.3. Complicates acute care, expected recovery and prognosis. #Depression: On escitalopram DVT prophylaxis: Not indicated as patient has markedly elevated INR. INR today is 4.9. Charges/Coding Visit Charges Inpatient E&M: 37084 Subs Hosp L2 10/20/24 1623 Haydee Sanchez MD Cosigner Signature (if applicable): CC: ~ Signed [facility]08-08-2025 Progress note Author [facility] Note Date/Time October 19, 2024 4:4 9pm [facility] Medical Records Department [address] [place] [address] Progress Note 10/19/24 1623 MR#: [id number] Acct: [id number] Name: TOD HUNT Rep #:[id number] : 1945 78 From: Haydee Sanchez MD PCP: Dr. Socrates Spangler MD Status:ADM I N Location: [place] [address] Subjective Subjective Patient seen and examined. She was seen with her nurse by her bedside. She wasadmitted with a complaint of weakness and failure to thrive as well as low bloodsugars. She has no active complaints this morning. She denied any pain and denied any fever or chills, nausea or vomiting or any other symptoms. PT OT on board. He is on IV ceftriaxone for UTI. Objective Data Objective Data Vital Signs: Vital Signs Temp Pulse Resp BP Pulse Ox O2 Del Method O2 Flow Rate 97.5 F L 64 18 107/52 L 94 Bi-pap 4 10/19/24 15:25 10/19/24 16:07 10/19/24 15:25 10/19/24 15:25 10/19/24 15:25 10/19/24 15:25 10/19/24 15:25 Oxygen Flow Rate (L/min) 4 Oxygen Delivery Method Bi-pap Weight: 441 lb 9.374 oz Body Mass Index (BMI) 71.2 Intake & Output: Intake and Output for Last 24 Hours 10/17/24 10/18/24 10/19/24 23:59 23:59 23:59 Intake Total 290 / 290 2500 / 2500 Output Total 200 / 200 Balance 290 / 290 2300 / 2300 Lab / Micro Data 10/19/24 06:59 10/19/24 06:59 Labs: Laboratory Results - last 24 hr 10/18/24 14:53: POC Glucose 99 10/18/24 15:20: PT 48.8 H, INR 5.2 H*, Sodium Cancelled, Potassium Cancelled, Chloride Cancelled, Carbon [...] Clarity Cloudy, Urine pH 6.0, Ur Specific Plush 1.020, Urine Protein 30 H, Urine Glucose (UA) Normal, Urine Ketones Negative, Urine Occult Blood 25 H, Urine Nitrite Positive H, Urine Bilirubin 1 H, Urine Urobilinogen Normal, Ur Leukocyte Esterase 500 H, Urine RBC0-5 SEEN, Urine WBC 50-100 SEEN, Ur Squamous Epith Cells 10-25 SEEN, Urine Bacteria 1+, Urine Mucus 0 SEEN 10/18/24 18:17: Potassium 5.6 H 10/18/24 18:27: POC Glucose 68 L 10/18/24 22:05: POC Glucose 87 10/19/24 02:20: PT 51.0 H, INR 5.5 H* 10/19/24 06:20: POC Glucose 93 10/19/24 06:59: WBC 12.9 H, RBC 4.44, Hgb 11.4 L, Hct 40.8, MCV 91.9, MCH 25.7 L, MCHC 27.9 L, RDW Std Deviation 56.0 H, RDW Coeff of Ryan 16.6 H, Plt Count 194,MPV 9.7, Immature Gran % (Auto) 0.200, Neut % (Auto) 83.0 H, Lymph % (Auto) 9.7 L, Kimball % (Auto) 6.7, Eos % (Auto) 0.2, Baso % (Auto) 0.2, Absolute Neuts (auto)10.7 H, Absolute Lymphs (auto) 1.26, Nucleated RBC % 0, PT 53.1 H, INR 5.8 H*, Sodium 137, Potassium 5.6 H, Chloride 104, Carbon Dioxide 26.9, Anion Gap 6, BUN21 H, Creatinine 1.13, Estim Creat Clear Calc 72.53, Est GFR (MDRD) Non-Af 49 L,BUN/Creatinine Ratio 18.4, Glucose 86, Hemoglobin A1c 5.2, Calcium 8.7 10/19/24 09:49: Lactic Acid < 1.0 10/19/24 11:09: POC Glucose 113 H 10/19/24 15:43: POC Glucose 133 H Micro: Microbiology 10/18/24 16:39 Urine Catheter - Reese Urine Culture - Preliminary Presumptive E. coli Rhythm Strip Rhythm Strip: Sinus bradycardia Rate: 51 Ectopy: None Physical Exam Const alert Constitutional Narrative: Class III obesity with BMI of 71.3. General Appearance: cooperative HEENT normocephalic and moist oral mucous membranes Eyes EOMs intact bilaterally Neck supple Neck Narrative: very short thick neck Lymph Lymphatic: no lymphedema noted Resp Resp Narrative: Moderately diminished breath sounds bibasilarly. This may also be due to her class III obesity. No wheezes or crackles. Was on 3 L of oxygen at time of review this subsequently went up to 4 L. Cardio regular rate, regular rhythm, S1 normal heart sound, S2 normal heart sound and no murmurs GI soft to palpation and non-tender GI Narrative: Very obese abdomen. Difficult to palpate for organomegaly due to obesity. Extremity normal capillary refill and no clubbing, cyanosis or edema General Extremity: no tenderness to palpation of joints or extremities Skin Skin Narrative: Extensive candidiasis in the folds of the abdomen in the neck and under the breasts. Neuro no focal motor deficits Motor Exam: general weakness Psych thought process normal and cooperative Appearance: appropriate Assessment & Plan Assessment/Plan (1) Cutaneous candidiasis: (2) UTI (urinary tract infection): (3) Failure to thrive: PLAN: Plan #Debility and failure to thrive * Patient lives at home and is taking care of by her who has dementia and is actually not able to provide her with such good care. She says she usually goes to to the bathroom and her clothes and on the bed and her will just change the bed. * She is unable to do much for herself. PT OT on board. Patient will likely need placement. #UTI: On IV ceftriaxone. Urine cultures pending. #Severe cutaneous candidiasis: Nystatin powder. Also started on p.o. fluconazole due to the severity of the candidiasis #Hyperkalemia: Potassium is 5.6 today. Patient given Kayexalate. Will monitor potassium. Hold all nephrotoxic meds. #Hypothyroidism: on synthroid # Type 2 diabetes mellitus: On insulin sliding scale. Accu-Cheks ACHS. #Atrial fibrillation: Was in sinus bradycardia on admission. Metoprolol on hold. On Coumadin which is on hold as INR was supratherapeutic at 5.8 today. #Supratherapeutic INR: INR 5.8 so we will give patient p.o. Kayexalate 2.5 mg x 1. Continue holding Coumadin. #JAYA: On CPAP Class III obesity: BMI is 71.3. Complicates acute care, expected recovery and prognosis. #Depression: On escitalopram DVT prophylaxis: Not indicated as patient has markedly elevated INR Charges/Coding Visit Charges Inpatient E&M: 20537 Subs Hosp L3 10/19/24 1649 <Electronically signed by Haydee Sanchez MD> Haydee Sanchez MD Cosigner Signature (if applicable): CC: ~ Signed [facility] Work Phone: 1(104) 365-402008-08-2025 Progress note [facility] Medical Records Department [address] [place] [address] Progress Note 10/19/24 1623 MR#: [id number] Acct: [id number] Name: TOD HUNT Rep #:[id number] : 1945 78 From: Haydee Sanchez MD PCP: Dr. Socrates Spangler MD Status:ADM I N Location: [place] [address] Subjective Subjective Patient seen and examined. She was seen with her nurse by her bedside. She wasadmitted with a complaint of weakness and failure to thrive as well as low bloodsugars. She has no active complaints thismorning. She denied any pain and denied any fever or chills, nausea or vomiting or any other symptoms. PT OT on board. He is on IV ceftriaxone for UTI. Objective Data Objective Data Vital Signs: Vital Signs Temp Pulse Resp BP Pulse Ox O2 Del Method O2 Flow Rate 97.5 F L 64 18 107/52 L 94 Bi-pap 4 10/19/24 15:25 10/19/24 16:07 10/19/24 15:25 10/19/24 15:25 10/19/24 15:25 10/19/24 15:25 10/19/24 15:25 Oxygen Flow Rate (L/min) 4 Oxygen Delivery Method Bi-pap Weight: 441 lb 9.374 oz Body Mass Index (BMI) 71.2 Intake & Output: Intake and Output for Last 24 Hours 10/17/24 10/18/24 10/19/24 23:59 23:59 23:59 Intake Total 290 / 290 2500 / 2500 Output Total 200 / 200 Balance 290 / 290 2300 / 2300 Lab / Micro Data 10/19/24 06:59 10/19/24 06:59 Labs: Laboratory Results - last 24 hr 10/18/24 14:53: POC Glucose 99 10/18/24 15:20: PT 48.8 H, INR 5.2 H*, Sodium Cancelled, Potassium Cancelled, Chloride Cancelled, Carbon Dioxide Cancelled, Anion Gap Cancelled, BUN Cancelled, Creatinine Cancelled, Estim Creat ClearCalc Cancelled, Est GFR (MDRD) Non-Af Cancelled, BUN/Creatinine Ratio Cancelled, Glucose Cancelled,Calcium Cancelled, Total Bilirubin Cancelled, AST Cancelled, ALT Cancelled, Alkaline Phosphatase Cancelled, Total Protein Cancelled, Albumin Cancelled, Globulin Cancelled, Albumin/Globulin Ratio Cancelled 10/18/24 16:00: POC Glucose 73 L 10/18/24 16:03: Sodium 136, Potassium 7.5 H*, Chloride 104, Carbon Dioxide 26.8,Anion Gap 5, BUN 23H, Creatinine 1.27 H, Estim Creat Clear Calc 64.53, Est GFR (MDRD) Non-Af 43 L, BUN/Creatinine Ratio 18.2, Glucose 74, Calcium 8.4, Total Bilirubin 0.30, AST 33 H, ALT 5, Alkaline Phosphatase 73, Total Protein 5.5 L, Albumin 2.2 L, Globulin 3.3, Albumin/Globulin Ratio 0.7 L 10/18/24 16:39: Urine Color Yellow, Urine Clarity Cloudy, Urine pH 6.0, Ur Specific Plush 1.020, Urine Protein 30 H, Urine Glucose (UA) Normal, Urine Ketones Negative, Urine Occult Blood 25 H, Urine Nitrite Positive H, Urine Bilirubin 1 H, Urine Urobilinogen Normal, Ur Leukocyte Esterase 500 H, Urine RBC0-5 SEEN, Urine WBC 50-100 SEEN, Ur Squamous Epith Cells 10-25 SEEN, Urine Bacteria 1+, Urine Mucus 0 SEEN 10/18/24 18:17: Potassium 5.6 H 10/18/24 18:27: POC Glucose 68 L 10/18/24 22:05: POC Glucose 87 10/19/24 02:20: PT 51.0 H, INR 5.5 H* 10/19/24 06:20: POC Glucose 93 10/19/24 06:59: WBC 12.9 H, RBC 4.44, Hgb 11.4 L, Hct 40.8, MCV 91.9, MCH 25.7 L, MCHC 27.9 L, RDW Std Deviation 56.0 H, RDW Coeff of Ryan 16.6 H, Plt Count 194,MPV 9.7, Immature Gran % (Auto) 0.200, Neut % (Auto) 83.0 H, Lymph % (Auto) 9.7 L, Kimball % (Auto) 6.7, Eos % (Auto) 0.2, Baso % (Auto) 0.2, Absolute Neuts (auto)10.7 H, Absolute Lymphs (auto) 1.26, Nucleated RBC % 0, PT 53.1 H, INR 5.8 H*, Sodium 137, Potassium 5.6 H, Chloride 104, Carbon Dioxide 26.9, Anion Gap 6, BUN21 H, Creatinine 1.13, Estim Creat Clear Calc 72.53, Est GFR (MDRD) Non-Af 49 L,BUN/Creatinine Ratio 18.4, Glucose 86, Hemoglobin A1c 5.2, Calcium 8.7 10/19/24 09:49: Lactic Acid < 1.0 10/19/24 11:09: POC Glucose 113 H 10/19/24 15:43: POC Glucose 133 H Micro: Microbiology 10/18/24 16:39 Urine Catheter - Reese Urine Culture - Preliminary Presumptive E. coli Rhythm Strip Rhythm Strip: Sinus bradycardia Rate: 51 Ectopy: None Physical Exam Const alert Constitutional Narrative: Class III obesity with BMI of 71.3. General Appearance: cooperative HEENT normocephalic and moist oral mucous membranes Eyes EOMs intact bilaterally Neck supple Neck Narrative: very short thick neck Lymph Lymphatic: no lymphedema noted Resp Resp Narrative: Moderately diminished breath sounds bibasilarly. This may also be due to her class III obesity. No wheezes or crackles. Was on 3 L of oxygen at time of review this subsequently went up to 4 L. Cardio regular rate, regular rhythm, S1 normal heart sound, S2 normal heart sound and no murmurs GI soft to palpation and non-tender GI Narrative: Very obese abdomen. Difficult to palpate for organomegaly due to obesity. Extremity normal capillary refill and no clubbing, cyanosis or edema General Extremity: no tenderness to palpation of joints or extremities Skin Skin Narrative: Extensive candidiasis in the folds of the abdomen in the neck and under the breasts. Neuro no focal motor deficits Motor Exam: general weakness Psych thought process normal and cooperative Appearance: appropriate Assessment & Plan Assessment/Plan (1) Cutaneous candidiasis: (2) UTI (urinary tract infection): (3) Failure to thrive: PLAN: Plan #Debility and failure to thrive * Patient lives at home and is taking care of by her who has dementia and is actually not able to provide her with such good care. She says she usually goes to to the bathroom and her clothesand on the bed and her will just change the bed. * She is unable to do much for herself. PT OT on board. Patient will likely need placement. #UTI: On IV ceftriaxone. Urine cultures pending. #Severe cutaneous candidiasis: Nystatin powder. Also started on p.o. fluconazole due to the severity of the candidiasis #Hyperkalemia: Potassium is 5.6 today. Patient given Kayexalate. Will monitor potassium. Hold all nephrotoxic meds. #Hypothyroidism: on synthroid # Type 2 diabetes mellitus: On insulin sliding scale. Accu-Cheks ACHS. #Atrial fibrillation: Was in sinus bradycardia on admission. Metoprolol on hold. On Coumadin which is on hold as INR was supratherapeutic at 5.8 today. #Supratherapeutic INR: INR 5.8 so we will give patient p.o. Kayexalate 2.5 mg x 1. Continue holdingCoumadin. #JAYA: On CPAP Class III obesity: BMI is 71.3. Complicates acute care, expected recovery and prognosis. #Depression: On escitalopram DVT prophylaxis: Not indicated as patient has markedly elevated INR Charges/Coding Visit Charges Inpatient E&M: 27889 [facility] L3 10/19/24 2576 Haydee Sanchez MD Cosigner Signature (if applicable): CC: ~ Signed [facility]08-08-2025 Progress note Author Estela Staton [facility] Note Date/Time October 19, 2024 2:4 3am [facility] Medical Records Department [address] [place] [address] Progress Note - Hospitalist 10/19/24 0242 MR#: [id number] Acct: [id number] Name: TOD HUNT Rep #:[id number] : 1945 78 From: Estela Staton MD PCP: Dr. Socrates Spangler MD Status:ADM I N Location: [place] [address] Hospitalist Note Patient with INR requested following admission, unfortunately the lab was run later than expected and resulted 5.2 off a lab drawn hours prior. To be cautiousINR repeated. Repeat result 5.5. Given no active bleeding concerns will hold coumadin and trend INR. Will discontinue lovenox that was ordered in case of subtherapeutic INR. 10/19/24242 <Electronically signed by Estela Staton MD> Cosigner Signature (if applicable): CC: ~ Signed [facility] Work Phone: 1(447) 635-684508-08-2025 Progress note [facility] Medical Records Department [address] [facility] [place] [address] Progress Note - Hospitalist 10/19/24241 MR#: [id number] Acct: [id number] Name: TOD HUNT Rep #:[id number] : 1945 78 From: Estela Staton MD PCP: Dr. Socrates Spangler MD Status:ADM I N Location: [place] [address] Hospitalist Note Patient with INR requested following admission, unfortunately the lab was run later than expected and resulted 5.2 off a lab drawn hours prior. To be cautiousINR repeated. Repeat result 5.5. Given noactive bleeding concerns will hold coumadin and trend INR. Will discontinue lovenox that was ordered in case of subtherapeutic INR. 10/19/24242 Cosigner Signature (if applicable): CC: ~ Signed [facility]08-07-2025 Discharge summary Author Ryan Yang [facility] Note Date/Time October 18, 2024 6:5 6pm [facility] Medical Records Department [address] [facility] [facility] [place] [address] Emergency Department Summary 10/18/24 MR#: [id number] Acct: [id number] Name: TOD HUNT Rep #:[id number] : 1945 78 From: Ryan Yang MD [...] Prior similar symptoms: Yes Recent Illness/Hospitalization: [facility] Medical History (Updated 10/18/24 @ 18:47 by [...] tablet,delayed 40 mg PO DAILY reflu x 04/05/25 Unknown History release furosemide 40 mg tablet [...] signs stable initial blood pressure elevated 152/134 hosea rechecked. Pulse ox 97% on 2 L. [...] both lower extremities. Dorsi plantarflexion intact. Normal english tutor strength. Patient is awake and alert. 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 Been having episodes of hypoglycemia she is a known diabetic. She will undergo workup looking for things like infection, dehydration and electrolyte abnormalities, etc. protective services officer will be consulted because she may need [...] 81.4 H Lymph % (Auto) 11.8 L Kimball % (Auto) 6.0 Eos % (Auto) 0.4 [...] Color Urine Clarity Urine pH Ur Specific Plush Urine Protein Urine Glucose (UA) Urine Ketones [...] (Auto) Neut % (Auto) Lymph % (Auto) Kimball % (Auto) Eos % (Auto) Baso % [...] Clarity Cloudy Urine pH 6.0 Ur Specific Plush 1.020 Urine Protein 30 H Urine Glucose [...] atelectasis at the lung bases. Reading Location: [facility] Chest x-ray, portable, single view interpreted by myself and radiologist. Showsobvious cardiomegaly. Chronic changes. No acute process. Rhythm Strip Rhythm Strip: Sinus bradycardia Rate: 51 Ectopy: None EKG Initial EKG: Attestation: I personally reviewed and interpreted this EKG as follows: Interpretation: Sinus Bradycardia Comments: sinus bradycardia rate of 51 no acute signs of RI or ischemia. Low voltage. Discharge Plan Dx/Rx/DC Orders Clinical Impression: Adult failure to thrive, Unable to ambulate, History of diabetes mellitus, Chronic anticoagulation, Acute metabolic encephalopathy due to hypoglycemia Disposition Disposition: Acute Care Hospital [facility] What to do if you have Problems For any increased pain, shortness of breath, bleeding, nausea or vomiting, chestpain, or any unexpected problems, contact your Primary Care Provider. Call [facility] ([phone]) or report to the closest Emergency Room. Call 911 if necessary. 10/18/241855 <Electronically signed by Ryan Yang MD> Cosigner Signature (if applicable): CC: Dr. Socrates Spangler MD ~ Signed [facility] Work Phone: 1(538) 222-215308-07-2025 History and physical note Author Nico Garcia [facility] Note Date/Time October 18, 2024 6:5 5pm [facility] Medical Records Department [address] [place] [address] H&P Exam - Hospitalist 10/18/24 1841 MR#: [id number] Acct: [id number] Name: TOD HUNT Rep #:[id number] : 1945 78 From: Nico Garcia DO PCP: Dr. Socrates Spangler MD Status:REG E R Location: ED HPI - General General Date of Service: 10/18/24 Chief Complaint: Failure [...] walk for some time as she describes. [facility] Medical History Congestive heart failure (CHF) Chest [...] BI D yeast 05/14/16 Unknown Rx powder ([facility]) docusate sodium 100 mg capsule 200 mg [...] 81.4 H, Lymph % (Auto) 11.8 L, Kimball % (Auto) 6.0, Eos % (Auto) 0.4, [...] Clarity Cloudy, Urine pH 6.0, Ur Specific Plush 1.020, Urine Protein 30 H, Urine Glucose [...] atelectasis at the lung bases. Reading Location: [id number] Assessment & Plan Assessment/Plan (1) Hyperkalemia: PLAN: [...] infection): PLAN: Continue ceftriaxone. Follow-up urine culture. Reese catheter placed in the emergency room. (5) [...] life support. Charges/Coding Visit Charges Inpatient E&M: 15061 Init Hosp L3 10/18/24 118 <Electronically signed by Nico Garcia DO> Cosigner Signature (if applicable): CC: Dr. Socrates Spangler MD; Dr. Nico Garcia DO~ Signed [facility] Work Phone: [phone] 113-152508-07-2025 Evaluation note* Diagnosis Onset Date Resolution Status Admit Date Acute metabolic encephalopat hy due to hypoglycemia acute October 18, 2024 6:29pm Adult failure to thrive acute A ugust 2024 6:29pm Bradycardia acute October 18, 2 025 6:29pm Chronic anticoagulation acute A ug2024 6:29pm Cutaneous candidiasis acute Oct us2024 6:29pm Failure to thrive acute October 18, 2024 6:29pm History of diabetes mellitus acute October 18, 2024 6:29pm Hyperkalemia acute October 18, 2024 6:29pm Unable to ambulate acute October 18, 2024 6:29pm UTI (urinary tract infection) acute October 18, 2024 6:29pm [facility] Work Phone: 1(172) 148-267908-07-2025 Evaluation note* Diagnosis Onset Date Resolution Status Admit Date Acute metabolic encephalopat hy due to hypoglycemia acute October 18, 2024 6:29pm Adult failure to thrive acute A ugust 2024 6:29pm Bradycardia acute October 18, 2 025 6:29pm Chronic anticoagulation acute A ug2024 6:29pm Cutaneous candidiasis acute Oct us2024 6:29pm Failure to thrive acute October 18, 2024 6:29pm History of diabetes mellitus acute October 18, 2024 6:29pm Hyperkalemia acute October 18, 2024 6:29pm Unable to ambulate acute October 18, 2024 6:29pm UTI (urinary tract infection) acute October 18, 2024 6:29pm Acute hypercapnic respirator y failure acute October 29 8:22pm Acute metabolic encephalopat hy due to hypoglycemia acute October 29, 2024 8:22pm Bradycardia acute October 29, 2024 8:22pm CHF (congestive heart failure) acute October 29, 2024 8:22pm History of diabetes mellitus acute October 29, 2024 8:22pm Hyperkalemia acute October 29, 2024 8:22pm Hypothermia acute October 29, 2024 8:22pm [facility] Work Phone: 1([phone]) 359-774208-07-2025 Discharge summary [facility] Medical Records Department [address] [place] [address] Emergency Department Summary 10/18/24 MR#: [id number] Acct: [id number] Name: TOD HUNT Rep #:[id number] : 1945 78 From: Ryan Yang MD PCP: Dr. Socrates Spangler MD Status:REG E R Location: ED HPI History of Present Illness Chief Complaint: Hypoglycemia Informant: patient Onset/Context/Timing Onset: Today Timing: Intermittent Current Severity: Mild Maximum Severity: Moderate Narrative Narrative: 78-year-old female history of diabetes, CHF, CKD, hypertension on Eliquis I believe for dysrhythmiaright eye blindness. Today had low blood sugars. Said her blood sugars have been running lower lately. She has had some nausea but novomiting or diarrhea no melena. No fever. Denies any dysuria. Patient is unable to walk. She lives at home with her who helps take care of her he has dementiashe also has a caregiver coming in 5 days a week. Young was called today because of change in mental status she was found to have low blood sugar and was brought in. Prior similar symptoms: Yes Recent Illness/Hospitalization: No PFSH PFSH Medical History (Updated 10/18/24 @ 18:47 by [...] signs stable initial blood pressure elevated 152/134 hosea rechecked. Pulseox 97% on 2 L. No hypoxia on [...] both lower extremities. Dorsi plantarflexion intact. Normal english tutor strength. Patient is awake and alert. 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 Been having episodes of hypoglycemia she is a known diabetic. She willundergo workup looking for things like infection, dehydration and electrolyte abnormalities, etc. protective services officer will be consulted because she may need [...] and she has never had a higher potassium4.5. We will hold off on any treatment of the hyperkalemia until I get the third potassium back. Itreturned at 5.6. I think these are erroneously [...] Repeat potassium was done on lab call ms it was 5.6 and reported to me [...] 81.4 H Lymph % (Auto) 11.8 L Kimball % (Auto) 6.0 Eos % (Auto) 0.4 [...] Color Urine Clarity Urine pH Ur Specific Plush Urine Protein Urine Glucose (UA) Urine Ketones [...] (Auto) Neut % (Auto) Lymph % (Auto) Kimball % (Auto) Eos % (Auto) Baso % [...] Clarity Cloudy Urine pH 6.0 Ur Specific Plush 1.020 Urine Protein 30 H Urine Glucose [...] atelectasis at the lung bases. Reading Location: [facility] Chest x-ray, portable, single view interpreted by myself and radiologist. Showsobvious cardiomegaly. Chronic changes. No acute process. Rhythm Strip Rhythm Strip: Sinus bradycardia Rate: 51 Ectopy: None EKG Initial EKG: Attestation: I personally reviewed and interpreted this EKG as follows: Interpretation: Sinus Bradycardia Comments: sinus bradycardia rate of 51 no acute signs of RI or ischemia. Low voltage. Discharge Plan Dx/Rx/DC Orders Clinical Impression: Adult failure to thrive, Unable to ambulate, History of diabetes mellitus, Chronic anticoagulation,Acute metabolic encephalopathy due to hypoglycemia Disposition Disposition: Acute Care Hospital [facility] What to do if you have Problems For any increased pain, shortness of breath, bleeding, nausea or vomiting, chestpain, or any unexpected problems, contact your Primary Care Provider. Call [facility] ([phone]) or report tothe closest Emergency Room. Call 911 if necessary. 10/18/24 1856 Cosigner Signature (if applicable): CC: Dr. Socrates Spangler MD ~ Signed [facility]08-07-2025 History and physical note [facility] Medical Records Department [address] [place] [address] H&P Exam - Hospitalist 10/18/24 1841 MR#: [id number] Acct: [id number] Name: TOD HUNT Rep #:[id number] : 1945 78 From: Nico Garcia DO PCP: Dr. Socrates Spangler MD Status:REG E R Location: ED HPI - General General Date of Service: 10/18/24 Chief Complaint: Failure [...] Patient received bronchodilators, sodium bicarbonate and albuterol. Repeatpotassium is currently pending. Patient had a catheter placed and urinalysis was concerning for UTIpatient received ceftriaxone. Patient is cared for by her who has dementia and has what shedescribes as good and bad days. Yesterday he thought he was celebrating thebirthday of his father who has been long . But patient is essentially bedbound does not walk for some time as she describes. [facility] Medical History Congestive heart failure (CHF) Chest [...] BI D yeast 05/14/16 Unknown Rx powder ([employer]) docusate sodium 100 mg capsule 200 mg [...] MCH 25.8 L, MCHC 28.9 L, RDW StdDeviation 54.3 H, RDW Coeff of Ryan 16.6 H, Plt Count 190, MPV 10.3, Immature Gran % (Auto) 0.300, Neut % (Auto) 81.4 H, Lymph % (Auto) 11.8 L, Kimball % (Auto) 6.0, Eos % (Auto) 0.4, Baso % (Auto) 0.1, Absolute Neuts (auto) 7.3, Absolute Lymphs (auto) 1.06, Nucleated RBC % 0, Sodium Cancelled, Potassium Cancelled, Chloride Cancelled, Carbon Dioxide Cancelled, Anion Gap Cancelled, BUN Cancelled, Creatinine Cancelled, Estim Creat Clear Calc Cancelled, Est GFR (MDRD) Non-Af Cancelled, BUN/Creatinine Ratio Cancelled, Glucose Cancelled, Calcium Cancelled, Total Bilirubin Cancelled, AST Cancelled, ALTCancelled, Alkaline Phosphatase Cancelled, Total Protein Cancelled, Albumin Cancelled, Globulin Cancelled, Albumin/Globulin Ratio Cancelled 10/18/24 16:00: POC Glucose 73 L 10/18/24 16:03: Sodium 136, Potassium 7.5 H*, Chloride 104, Carbon Dioxide 26.8,Anion Gap 5, BUN 23H, Creatinine 1.27 H, Estim Creat Clear Calc 64.53, Est GFR (MDRD) Non-Af 43 L, BUN/Creatinine Ratio 18.2, Glucose 74, Calcium 8.4, Total Bilirubin 0.30, AST 33 H, ALT 5, Alkaline Phosphatase 73, Total Protein 5.5 L, Albumin 2.2 L, Globulin 3.3, Albumin/Globulin Ratio 0.7 L 10/18/24 16:39: Urine Color Yellow, Urine Clarity Cloudy, Urine pH 6.0, Ur Specific Plush 1.020, Urine Protein 30 H, Urine Glucose [...] atelectasis at the lung bases. Reading Location: [id number] Assessment & Plan Assessment/Plan (1) Hyperkalemia: PLAN: [...] infection): PLAN: Continue ceftriaxone. Follow-up urine culture. Reese catheter placed in the emergency room. (5) [...] be hypoglycemic prior to presentation. Patient is onglipizide, metformin, and glargine. Will hold those for now. But once we get further clarification about how her blood sugarswill continue to do then we could slowly introduce her insulin back in. A-fib: In sinus bradycardia rate now. Holding off on metformin given the bradycardia. Check an INR.Resume warfarin if INR is not supratherapeutic. JAYA: Continue with home CPAP. VTE prophylaxis with enoxaparin until INR is greater than 2. CODE STATUS: Addressed with the patient. Patient wishes to be full code. Giventhe patient's husbandis demented I did verify that she does have a son who cares for her and would be available to contact in regards to an event where if she were to require being put on life support. Charges/Coding Visit Charges Inpatient E&M: 35602 Init Hosp L3 10/18/24 1855 Cosigner Signature (if applicable): CC: Dr. Socrates Spangler MD; Dr. Nico Garcia DO~ Signed [facility]08-07-2025 Radiology Diagnostic study note [facility] Imaging Services [address] [place] [address] Chest 1 View (Portable) MR#: [id number] Acct: [id number] Name: TOD HUNT Rep #: [id number] : 1945 F 78 From: Fredy Diaz MD PCP: Dr. Socrates Spangler MD Status: REG E R Study:Chest 1 View (Portable) Date of Exam: 10/18/24 Exam# [id number] Ordering Dr: Zoraida Yang MD PROCEDURE: CHEST [...] atelectasis at the lung bases. Reading Location: [facility] CC: Dr. Socrates Spangler MD; Dr. Ryan Yang MD ~ Logging Worker: Signed [facility]08-07-2025 Discharge summary Author Ryan Yang [facility] Note Date/Time October 18, 2024 6:5 6pm [facility] Medical Records Department [address] [place] [address] Emergency Department Summary 10/18/24 MR#: [id number] Acct: [id number] Name: TOD HUNT Rep #:[id number] : 1945 78 From: Ryan Yang MD [...] Prior similar symptoms: Yes Recent Illness/Hospitalization: No [facility] Medical History (Updated 10/18/24 @ 18:47 [...] BI D yeast 05/14/16 Unknown Rx powder ([facility]) docusate sodium 100 mg capsule 200 mg [...] signs stable initial blood pressure elevated 152/134 hosea rechecked. Pulse ox 97% on 2 L. [...] both lower extremities. Dorsi plantarflexion intact. Normal english tutor strength. Patient is awake and alert. 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 Been having episodes of hypoglycemia she is a known diabetic. She will undergo workup looking for things like infection, dehydration and electrolyte abnormalities, etc. protective services officer will be consulted because she may need [...] 81.4 H Lymph % (Auto) 11.8 L Kimball % (Auto) 6.0 Eos % (Auto) 0.4 [...] Color Urine Clarity Urine pH Ur Specific Plush Urine Protein Urine Glucose (UA) Urine Ketones [...] (Auto) Neut % (Auto) Lymph % (Auto) Kimball % (Auto) Eos % (Auto) Baso % [...] Clarity Cloudy Urine pH 6.0 Ur Specific Plush 1.020 Urine Protein 30 H Urine Glucose [...] atelectasis at the lung bases. Reading Location: [facility] Chest x-ray, portable, single view interpreted by myself and radiologist. Showsobvious cardiomegaly. Chronic changes. No acute process. Rhythm Strip Rhythm Strip: Sinus bradycardia Rate: 51 Ectopy: None EKG Initial EKG: Attestation: I personally reviewed and interpreted this EKG as follows: Interpretation: Sinus Bradycardia Comments: sinus bradycardia rate of 51 no acute signs of RI or ischemia. Low voltage. Discharge Plan Dx/Rx/DC Orders Clinical Impression: Adult failure to thrive, Unable to ambulate, History of diabetes mellitus, Chronic anticoagulation, Acute metabolic encephalopathy due to hypoglycemia Disposition Disposition: Acute Care Hospital [facility] What to do if you have Problems For any increased pain, shortness of breath, bleeding, nausea or vomiting, chestpain, or any unexpected problems, contact your Primary Care Provider. Call [facility] ([phone]) or report to the closest Emergency Room. Call 911 if necessary. 10/18/241855 <Electronically signed by Ryan Yang MD> Cosigner Signature (if applicable): CC: Dr. Socrates Spangler MD ~ Signed [facility] Work Phone: 1(717) 971-411304-08-2025 Consult note Author Isaac Powell [facility] Note Date/Time June 19, 2024 3:13 pm [facility] Medical Records Department [address] [place] [address] Counseling Note - Pharmacy 06/19/24 1512 MR#: [id number] Acct: [id number] Name: TOD HUNT Rep #:[id number] : 1945 78 From: Isaac Powell PCP: Dr. Socrates Spanglre MD Status:ADM I N Y Location: [place] [address] Pharmacy [facility] Pharmacy Service has performed discharge medication reconciliation [...] Signature (if applicable): Date CC: ~ Signed [facility] Work Phone: 1(289) 408-715604-08-2025 Consult note [facility] Medical Records Department [address] [place] [address] Counseling Note - Pharmacy 06/19/24 1512 MR#: [id number] Acct: [id number] Name: TOD HUNT Rep #:[id number] : 1945 78 From: Isaac Powell PCP: Dr. Socrates Spangler MD Status:ADM I N Y Location: [facility] [id number] 1 Pharmacy [facility] Pharmacy Service has performed discharge medication reconciliation [...] Signature (if applicable): Date CC: ~ Signed [facility]04-08-2025 Discharge summary Author Savanna Suero [facility] Note Date/Time June 19, 2024 1:11 pm [facility] Medical Records Department [address] [place] [address] Instructions for Home/Discharge Instructions 06/19/24 1259 MR#: [id number] Acct: [id number] Name: TOD HUNT Rep #:[id number] : 1945 78 From: Savanna Suero MD [...] by Savanna Suero MD>Savanna Suero MD CC: DPM Dr. Sarabjit Dubois; Dr. Estela Staton MD; Dr. Socrates Spangler MD; Dr. Azam Montgomery MD ~ Signed [facility] Work Phone: 1([phone]) [phone] Discharge summary [facility] Medical Records Department [address] [place] [address] Instructions for Home/Discharge Instructions 06/19/24 1259 MR#: [id number] Acct: [id number] Name: TOD HUNT Rep #:[id number] : 1945 78 From: Savanna Suero MD [...] [facility]. Please call their office upon [...] Self Care 06/19/24 1311Pmac Suero MD CC: DPMike Dubois; Dr. Estela Staton MD; Dr. Socrates Spangler MD; Dr. Azam Montgomery MD ~ Signed [facility]04-08-2025 [facility]04-07-2025 Progress note Author Savanna Suero [facility] Note Date/Time June 18, 2024 5:37 pm [facility] Medical Records Department [address] [place] [address] Progress Note - Hospitalist 06/18/24 3797 MR#: [id number] Acct: [id number] Name: TOD HUNT Rep #:[id number] : 1945 78 From: Savanna Suero MD PCP: Dr. Socrates Spangler MD Status:ADM I N Location: [place] [address] Reason for Visit Reason for Visit: Diagnoses [...] 79.4 H, Lymph % (Auto) 16.2 L, Kimball % (Auto) 3.9, Eos % (Auto) 0.0, [...] 48 hours. 06/14/24 02:45 Urine Catheter - Reese Legionella Antigen - Final 06/14/24 02:45 Urine Catheter - Reese Streptococcus pneumoniae Antigen (M - Final 06/13/24 [...] Suero MD Charges/Coding Visit Charges Inpatient E&M: 51826 Subs Hosp L2 06/18/241735 <Electronically signed by Savanna Suero MD> Cosigner Signature (if applicable): CC: ~ Signed ADDENDUM by Dr. Savanna Suero MD on 06/18/24 at 1737 Addendum # CKD stage III b -Appears to be at baseline -Avoid nephrotoxic agents -Daily BMPs 06/18/241736<Electronically signed by Savanna Suero MD> Cosigner Signature (if applicable): cc: ~* Signed [facility] Work Phone: 1(892) 315-619504-07-2025 Progress note [facility] Medical Records Department [address] [place] [address] Progress Note - Hospitalist 06/18/24 1727 MR#: [id number] Acct: [id number] Name: TOD HUNT Rep #:[id number] : 1945 78 From: Savanna Suero MD PCP: Dr. Socrates Spangler MD Status:ADM I N Location: [place] [address] Reason for Visit Reason for Visit: Diagnoses [...] She expressed concern about going home before [facility] bed arrives given she is bedbound [...] 79.4 H, Lymph % (Auto) 16.2 L, Kimball % (Auto) 3.9, Eos % (Auto) 0.0, [...] 48 hours. 06/14/24 02:45 Urine Catheter - Reese Legionella Antigen - Final 06/14/24 02:45 Urine Catheter - Reese Streptococcus pneumoniae Antigen (M - Final 06/13/24 [...] Suero MD Charges/Coding Visit Charges Inpatient E&M: 03771 Subs Hosp L2 06/18/24 1732 Cosigner Signature (if applicable): CC: ~ Signed ADDENDUM by Dr. Savanna Suero MD on 06/18/24 at 1737 Addendum # CKD stage III b -Appears to be at baseline -Avoid nephrotoxic agents -Daily BMPs 06/18/24 1737 Cosigner Signature (if applicable): cc: ~* Signed [facility]04-07-2025 Progress note Author Estela Staton [facility] Note Date/Time June 18, 2024 12:2 2am [facility] Medical Records Department [address] [place] [address] Progress Note - Hospitalist 06/17/24 2330 MR#: [id number] Acct: [id number] Name: TOD HUNT Rep #:[id number] : 1945 78 From: Estela Staton MD PCP: Dr. Socrates Spangler MD Status:ADM I N Location: [place] [address] Hospitalist Note Patient with onset of asymptomatic [...] to Eliquis with first dose in AM. 06/18/24 0022<Electronically signed by Estela Staton MD> Cosigner Signature (if applicable): cc: ~* Signed [facility] Work Phone: 1(620) 787-328604-07-2025 Progress note [facility] Medical Records Department [address] [place] [address] Progress Note - Hospitalist 06/17/24 2330 MR#: [id number] Acct: [id number] Name: TOD HUNT Rep #:[id number] : 1945 78 From: Estela Staton MD PCP: Dr. Socrates Spangler MD Status:ADM I N Location: [place] [address] Hospitalist Note Patient with onset of asymptomatic tachycardia, EKG with some concern for new onset atrial fibrillation. Recent evaluation ongoing including mag 1.7 on 06/15/24, TSH 1.690 06/14/2024. 06/14/24 echocardiogram with normal LV size, LV systolic function normal, LVEF 60%. Requesting Cardizem 10 mg IV x 1 to slow down and potentially repeat EKG to ensure in A-fib. 06/17/24 2331 Cosigner Signature (if applicable): CC: ~ Signed [...] Eliquis with first dose in AM. 06/18/24 0022 Cosigner Signature (if applicable): cc: ~* Signed [facility]04-06-2025 Progress note Author Azam Montgomery [facility] Note Date/Time June 17, 2024 1:01 pm [facility] Medical Records Department [address] [place] [address] Progress Note - Hospitalist 06/17/24 1254 MR#: [id number] Acct: [id number] Name: TOD HUNT Rep #:[id number] : 1945 78 From: Azam Alarcon PCP: Dr. Socrates Spangler MD Status:ADM I N Location: [place] [address] Reason for Visit Reason for Visit: Diagnoses [...] 79.1 H, Lymph % (Auto) 17.5 L, Kimball % (Auto) 3.1, Eos % (Auto) 0.0, [...] 48 hours. 06/14/24 02:45 Urine Catheter - Reese Legionella Antigen - Final 06/14/24 02:45 Urine Catheter - Reese Streptococcus pneumoniae Antigen (M - Final 06/13/24 [...] osteomyelitis of second to the fifth toe hose inspector and patcher consulted for that. The hose inspector and patcher also reviewed the x-ray and thinks the x-ray reporting is not correct/wrong. Clinically, I do not suspect 06/17: Program Management Manager consulted and discussed with Dr. Dubois. He [...] Code status. Charges/Coding Visit Charges Inpatient E&M: 05225 Subs Hosp L2 06/17/24 1301 <Electronically signed by Azam Montgomery MD> Cosigner Signature (if applicable): CC: ~ Signed [facility] Work Phone: 1(958) 307-808404-06-2025 Progress note [facility] Medical Records Department [address] [place] [address] Progress Note - Hospitalist 06/17/24 1254 MR#: [id number] Acct: [id number] Name: TOD HUNT Rep #:[id number] : 1945 78 From: Azam Alarcon PCP: Dr. Socrates Spangler MD Status:ADM I N Location: [place] [address] Reason for Visit Reason for Visit: Diagnoses [...] 79.1 H, Lymph % (Auto) 17.5 L, Kimball % (Auto) 3.1, Eos % (Auto) 0.0, [...] 48 hours. 06/14/24 02:45 Urine Catheter - Reese Legionella Antigen - Final 06/14/24 02:45 Urine Catheter - Reese Streptococcus pneumoniae Antigen (M - Final 06/13/24 [...] osteomyelitis of second to the fifth toe hose inspector and patcher consulted for that. The hose inspector and patcher also reviewed the x-ray and thinks the x-ray reporting is not correct/wrong. Clinically, I do not suspect 06/17: Program Management Manager consulted and discussed with Dr. Dubois. He also does not think clinically osteomyelitis. Patient has osteoporosis and diffuse demineralization of the toe bones and digital contractures therefore it appears bone lysis. #3. Hypertension: Continue home regimen including metoprolol, amlodipine, losartan, hydrochlorothiazide, pulse dose with IV lasix as noted above, PRN hydralazine. 4/:HCTZ discontinued. Losartan dose decreased to 50 mg daily. /5: Patient blood pressure is better. Constipation: Dulcolax [...] Code status. Charges/Coding Visit Charges Inpatient E&M: 89968 Subs Hosp L2 06/17/24 1301 Cosigner Signature (if applicable): CC: ~ Signed [facility]04-06-2025 Consult note Author Sarabjit Dubois [facility] Note Date/Time June 17, 2024 9:23 am [facility] Medical Records Department [address] [place] [address] Consultation 06/17/24 0919 MR#: [id number] Acct: [id number] Name: TOD HUNT Rep #:[id number] : 1945 78 From: Sarabjit Dubois DPM PCP: Dr. Socrates Spangler MD Status:ADM I N Location: [place] [address] Assessment & Plan Assessment/Plan (1) Contusion of [...] to that site or gross deformation. [facility] Medical History (Updated 06/17/24 @ 09:21 by [...] 79.1 H, Lymph % (Auto) 17.5 L, Kimball % (Auto) 3.1, Eos % (Auto) 0.0, [...] 2nd to the 5th toe. Reading Location[facility] 06/17/24922 <Electronically signed by Sarabjit Dubois DPM> Cosigner Signature (if applicable): CC: Dr. Socrates Spangler MD~ Signed [facility] Work Phone: 1(857) 858-942204-06-2025 Consult note [facility] Medical Records Department [address] [place] [address] Consultation 06/17/24918 MR#: [id number] Acct: [id number] Name: TOD HUNT Rep #:[id number] : 1945 78 From: Sarabjit Dubois DPM PCP: Dr. Socrates Spangler MD Status:ADM I N Location: [place] [address] Assessment & Plan Assessment/Plan (1) Contusion of [...] to that site or gross deformation. [facility] Medical History (Updated 06/17/24 @ 09:21 by [...] 79.1 H, Lymph % (Auto) 17.5 L, Kimball % (Auto) 3.1, Eos % (Auto) 0.0, [...] 2nd to the 5th toe. Reading Location: [facility] 06/17/24 0923 Cosigner Signature (if applicable): CC: Dr. Socrates Spangler MD~ Signed [facility]04-06-2025 [facility]04-05-2025 Progress note Author Azam Montgomery [facility] Note Date/Time June 16, 2024 2:27 pm [facility] Medical Records Department [address] [place] [address] Progress Note - Hospitalist 06/16/24 1257 MR#: [id number] Acct: [id number] Name: TOD HUNT Rep #:[id number] : 1945 78 From: Azam Alarcon PCP: Dr. Socrates Spangler MD Status:ADM I N Location: [place] [address] Reason for Visit Reason for Visit: Diagnoses [...] (Auto) 84.6 H, Lymph % (Auto) 12.3L, Kimball % (Auto) 2.8, Eos % (Auto) 0.0, [...] 48 hours. 06/14/24 02:45 Urine Catheter - Reese Legionella Antigen - Final 06/14/24 02:45 Urine Catheter - Reese Streptococcus pneumoniae Antigen (M - Final 06/13/24 22:55 Mucosa - Nasopharyngeal Respiratory Panel (PCR) - Final 06/13/24 19:55 Mucosa - Nose SARS-CoV-2, Influenza & RSV (PCR) - Final Radiography Diagnostic Testing: Radiology Impression Foot X-Ray 06/16/24 10:55 IMPRESSION: Findings are worrisome for osteomyelitis of the 2nd to the 5th toe. Reading Location[facility] Physical Exam Narrative Seen and [...] osteomyelitis of second to the fifth toe hose inspector and patcher consulted for that. The hose inspector and patcher also reviewed the x-ray and thinks the [...] Code status. Charges/Coding Visit Charges Inpatient E&M: 53229 Subs Hosp L2 06/16/24 2491 <Electronically signed by Azam Montgomery MD> Cosigner Signature (if applicable): CC: ~ Signed [facility] Work Phone: 1(594) 398-712504-05-2025 Progress note [facility] Medical Records Department [address] [place] [address] Progress Note - Hospitalist 06/16/24 1257 MR#: [id number] Acct: [id number] Name: TOD HUNT Rep #:[id number] : 1945 78 From: Azam Alarcon PCP: Dr. Socrates Spangler MD Status:ADM I N Location: [place] [address] Reason for Visit Reason for Visit: Diagnoses [...] (Auto) 84.6 H, Lymph % (Auto) 12.3L, Kimball % (Auto) 2.8, Eos % (Auto) 0.0, [...] 48 hours. 06/14/24 02:45 Urine Catheter - Reese Legionella Antigen - Final 06/14/24 02:45 Urine Catheter - Reese Streptococcus pneumoniae Antigen (M - Final 06/13/24 22:55 Mucosa - Nasopharyngeal Respiratory Panel (PCR) - Final 06/13/24 19:55 Mucosa - Nose SARS-CoV-2, Influenza & RSV (PCR) - Final Radiography Diagnostic Testing: Radiology Impression Foot X-Ray 06/16/24 10:55 IMPRESSION: Findings are worrisome for osteomyelitis of the 2nd to the 5th toe. Reading Location[facility] Physical Exam Narrative Seen and [...] osteomyelitis of second to the fifth toe hose inspector and patcher consulted for that. The hose inspector and patcher also reviewed the x-ray and thinks the [...] Code status. Charges/Coding Visit Charges Inpatient E&M: 18533 Subs Hosp L2 06/16/24 1427 Cosigner Signature (if applicable): CC: ~ Signed [facility]04-05-2025 Radiology Diagnostic study note [facility] Imaging Services [address] [place], [place] [address] Foot min 3 Views MR#: [id number] Acct: [id number] Name: TOD HUNT Rep #: [id number] : 1945 F 78 From: Pet er Peer DO PCP: Dr. Socrates Spangler MD Status: ADM I N Study:Foot min 3 Views Date of Exam: 08/05 Exam# [id number] Ordering Dr: Betty Montgomery MD EXAM: Right [...] 2nd to the 5th toe. Reading Location: [facility] CC: Dr. Socrates Spangler MD; Dr. Azam Montgomery MD ~ Logging Worker: Signed [facility]04-04-2025 Progress note Author Azam Montgomery [facility] Note Date/Time June 15, 2024 1:19 pm [facility] Medical Records Department [address] [place] [address] Progress Note - Hospitalist 06/15/24 0847 MR#: [id number] Acct: [id number] Name: TOD HUNT Rep #:[id number] : 1945 78 From: Azam Alarcon PCP: Dr. Socrates Spangler MD Status:ADM I N Location: [place] [address] Reason for Visit Reason for Visit: Diagnoses [...] (Auto) 82.7 H, Lymph % (Auto)13.8 L, Kimball % (Auto) 3.0, Eos % (Auto) 0.0, [...] Micro: Microbiology 06/14/24 02:45 Urine Catheter - Reese Legionella Antigen - Final 06/14/24 02:45 Urine Catheter - Reese Streptococcus pneumoniae Antigen (M - Final 06/13/24 [...] Code status. Charges/Coding Visit Charges Inpatient E&M: 33368 Subs Hosp L2 06/15/24 1318 <Electronically signed by Azam Montgomery MD> Cosigner Signature (if applicable): CC: ~ Signed ADDENDUM by Dr. Azam Montgomery MD on 06/15/24 at 1319 Visit Charges Inpatient E&M: 41663 Subs Hosp L2 06/15/24 1319<Electronically signed by Azam Montgomery MD> Cosigner Signature (if applicable): cc: ~* Signed [facility] Work Phone: 1([phone]) 696-449404-04-2025 Progress note [facility] Medical Records Department [address] [place] [address] Progress Note - Hospitalist 06/15/24 0847 MR#: [id number] Acct: [id number] Name: TOD HUNT Rep #:[id number] : 1945 78 From: Azam Alarcon PCP: Dr. Socrates Spangler MD Status:ADM I N Location: [place] [address] Reason for Visit Reason for Visit: Diagnoses [...] 1025 / 1025 Balance -2054 / -2054 -5 / -102 Lab / Micro Data 06/15/24 [...] (Auto) 82.7 H, Lymph % (Auto)13.8 L, Kimball % (Auto) 3.0, Eos % (Auto) 0.0, [...] Micro: Microbiology 06/14/24 02:45 Urine Catheter - Reese Legionella Antigen - Final 06/14/24 02:45 Urine Catheter - Reese Streptococcus pneumoniae Antigen (M - Final 06/13/24 [...] Spangler Performed By: Stephenie Gerardo RDCS, RVT Physical Exam Narrative Seen and [...] Code status. Charges/Coding Visit Charges Inpatient E&M: 52770 Subs Hosp L2 06/15/24 1318 Cosigner Signature (if applicable): CC: ~ Signed ADDENDUM by Dr. Azam Montgomery MD on 06/15/24 at 1319 Visit Charges Inpatient E&M: 70794 Subs Hosp L2 06/15/24 1319 Cosigner Signature (if applicable): cc: ~* Signed [facility]04-04-2025 Radiology Diagnostic study note [facility] Imaging Services [address] [place] [address] Chest 1 View (Portable) MR#: [id number] Acct: [id number] Name: TOD HUNT Rep #: [id number] : 1945 F 78 From: Sue Golden MD PCP: Dr. Socrates Spangler MD Status: ADM I N Study:Chest 1 View (Portable) Date of Exam: 06/15/24 Exam# [id number] Ordering Dr: Betty Montgomery MD EXAM: XR [...] Superimposed pneumonia cannot be excluded. Reading [facility] CC: Dr. Socrates Spangler MD; Dr. Azam Montgomery MD ~ Logging Worker: Signed [facility]04-03-2025 Progress note Author Azam Montgomery [facility] Note Date/Time June 14, 2024 12:3 9pm [facility] [address] [place] [address] Progress Note - Hospitalist 06/14/24 0959 MR#: [id number] Acct: [id number] Name: TOD HUNT Rep #:[id number] : 1945 78 From: Azam Alarcon PCP: Dr. Socrates Spangler MD Status:ADM I N Location: [place] [address] Reason for Visit Reason for Visit: Diagnoses [...] (Auto) 40.5 L, Lymph % (Auto)53.9 H, Kimball % (Auto) 4.3, Eos % (Auto) 0.7, [...] Sens 34 H, [place] [address] H 06/13/24 21:47: Troponin T Hi Sens 2 Hr 45 H, Urine Color Yellow, Urine Clarity Sl. Cloudy, Urine pH 6.0, Ur Specific Plush 1.015, Urine Protein 100 H, Urine Glucose [...] (Auto) 85.8 H, Lymph % (Auto) 13.2L, Kimball % (Auto) 0.7, Eos % (Auto) 0.0, [...] Micro: Microbiology 06/14/24 02:45 Urine Catheter - Reese Legionella Antigen - Final 06/14/24 02:45 Urine Catheter - Reese Streptococcus pneumoniae Antigen (M - Final 06/13/24 [...] infection. Small left pleural effusion. Reading Location: [facility] Venous Duplex 06/13/24 21:55 IMPRESSION: No deep [...] Code status. Charges/Coding Visit Charges Inpatient E&M: 96979 Subs Hosp L2 06/14/24 3655 <Electronically signed by Azam Montgomery MD> Cosigner Signature (if applicable): CC: ~ Signed [facility] Work Phone: 1(860) 570-410904-03-2025 Progress note [facility] Medical Records Department [facility] [place] [address] Progress Note - Hospitalist 06/14/24 7724 MR#: [id number] Acct: [id number] Name: TOD HUNT Rep #:[id number] : 1945 78 From: Azam Alarcon PCP: Dr. Socrates Spangler MD Status:ADM I N Location: [place] [address] Reason for Visit Reason for Visit: Diagnoses [...] (Auto) 40.5 L, Lymph % (Auto)53.9 H, Kimball % (Auto) 4.3, Eos % (Auto) 0.7, [...] Sens 34 H, [place] [address] H 06/13/24 21:47: Troponin T Hi Sens 2 Hr 45 H, Urine Color Yellow, Urine Clarity Sl. Cloudy, Urine pH 6.0, Ur Specific Plush 1.015, Urine Protein 100 H, Urine Glucose [...] (Auto) 85.8 H, Lymph % (Auto) 13.2L, Kimball % (Auto) 0.7, Eos % (Auto) 0.0, [...] Micro: Microbiology 06/14/24 02:45 Urine Catheter - Reese Legionella Antigen - Final 06/14/24 02:45 Urine Catheter - Reese Streptococcus pneumoniae Antigen (M - Final 06/13/24 [...] Small left pleural effusion. Reading Location: [facility] Venous Duplex 06/13/24 21:55 IMPRESSION: No deep venous thrombosis identified in the extremity. Reading Location: [facility] Physical Exam Narrative Seen and examined Patient [...] #9. GERD: continue patient on PPI. #10. JAAY, hypoventilation syndrome: Complicates presentation, normally using CPAP [...] Code status. Charges/Coding Visit Charges Inpatient E&M: 40494 Subs Hosp L2 06/14/24 1239 Cosigner Signature (if applicable): CC: ~ Signed [facility]04-03-2025 History and physical note Author Estela Staton [facility] Note Date/Time June 13, 2024 10:5 5pm [facility] Medical Records Department [address] [place] [address] H&P Exam - Hospitalist 06/13/242126 MR#: [id number] Acct: [id number] Name: TOD HUNT Rep #:[id number] : 1945 78 From: Estela Staton MD PCP: Dr. Socrates Spangler MD Status:ADM I N Location: [place] [address] HPI - General General Date of Admission: [...] Allergic rhinitis, GERD who presents to the [facility] ED on 06/13/24 with history of [...] levaquin 750 mg IV x 1. [facility] Medical History CKD (chronic kidney disease), stage [...] topical BI D 05/14/16 Unknown Rx powder ([facility]) oxycodone 5 mg tablet 5 mg PO [...] 40.5 L, Lymph % (Auto) 53.9 H, Kimball % (Auto) 4.3, Eos % (Auto) 0.7, [...] Sens 34 H, [place] [address] H Micro: Microbiology 06/13/24 19:55 Mucosa - [...] Allergic rhinitis, GERD who presents to the [facility] ED on 06/13/24 with history of [...] 16 minutes. Charges/Coding Visit Charges Inpatient E&M: 09345 Init Hosp L3 Procedures Hospitalists Procedures: 59856 Advncd Care Plan 30 Min 06/13/249 <Electronically signed by Estela Staton MD> Cosigner [...] MD; Dr. Socrates Spangler MD ~* Signed [facility] Work Phone: 1(454) 425-610204-03-2025 Discharge summary Author Gabriel Rucker [facility] Note Date/Time June 13, 2024 10:5 4pm [facility] Medical Records Department [address] [place] [address] Emergency Department Summary 06/13/24 MR#: [id number] Acct: [id number] Name: MARILEEEVMELONY Rep #:[id number] : 1945 78 From: Gabriel Rucker DO PCP: Dr. Socrates Spangler MD Status:ADM I N Location: [place] [address] HPI History of Present Illness Chief Complaint: [...] any fever. Denies recent travel or surgery. [facility] Medical History (Updated 06/13/24 @ 21:29 [...] Troponin slightly elevated at 34 and BT VARNISH MAKER was elevated 11,672. We attempted to do [...] 40.5 L Lymph % (Auto) 53.9 H Kimball % (Auto) 4.3 Eos % (Auto) 0.7 [...] Sens 34 [place] [address] H Radiography Diagnostic Testin view chest x-ray [...] minutes, Including time spent:, Discussing w/Patient &/or Family/Puppet Developer, Discussing w/Consultants, Arranging Admission or Transfer, Performing [...] MD [Primary Care Provider] - Print Language: Sinhala Disposition Disposition: Acute Care Hospital [facility] What to do if you have Problems For any increased pain, shortness of breath, bleeding, nausea or vomiting, chestpain, or any unexpected problems, contact your Primary Care Provider. Call [facility] ([phone]) or report to the closest Emergency Room. Call 911 if necessary. 06/13/24 8495 <Electronically signed by Gabriel Rucker DO> Cosigner Signature (if applicable): CC: Dr. Socrates Spangler MD ~ Signed [facility] Work Phone: 1(461) 716-985604-02-2025 Evaluation note* Diagnosis Onset Date Resolution Status Admit Date Acute hypoxic respiratory failure ac [place] June 13, 2024 9:28pm CHF (congestive heart failure) acute June 13, 2024 9:28pm Contusion of right great toe without damage to nail, initial encounter acute June 13, 2024 9:28pm Hypoxia acute June 13 9:28pm Pneumonia acute June 13 9:28pm Respiratory failure acute June 13, 2024 9:28pm [facility] Work Phone: 1(955) 362-210904-02-2025 Radiology Diagnostic study note [facility] Imaging Services [address] [place] [id number] Venous Duplex Imag/Gregg Extrem MR#: [id number] Acct: [id number] Name: TOD HUNT Rep #: [id number] : 1945 F 78 From: Sandro Medeiros DO PCP: Dr. Socrates Spangler MD Status: ADM I N Study:Venous Duplex Imag/Gregg Extrem Date of E xam: 06/13/24 Exam# [id number] Ordering Dr: Zena Rucker DO PROCEDURE: VENOUS [...] thrombosis identified in the extremity. Reading [facility] CC: Dr. Socrates Spangler MD; Dr. Gabriel Rucker DO ~ Logging Worker: Signed [facility]04-02-2025 History and physical note [facility] Medical Records Department [address] [place] [address] H&P Exam - Hospitalist 06/13/242126 MR#: [id number] Acct: [id number] Name: TOD HUNT Rep #:[id number] : 1945 78 From: Estela Staton MD PCP: Dr. Socrates Spangler MD Status:ADM I N Location: [place] [address] HPI - General General Date of Admission: [...] Allergic rhinitis, GERD who presents to the [facility] ED on 06/13/24 with history of [...] levaquin 750 mg IV x 1. [facility] Medical History CKD (chronic kidney disease), stage [...] 40.5 L, Lymph % (Auto) 53.9 H, Kimball % (Auto) 4.3, Eos % (Auto) 0.7, [...] Sens 34 H, [place] [address] H Micro: Microbiology 06/13/24 19:55 Mucosa - [...] Allergic rhinitis, GERD who presents to the [facility] ED on 06/13/24 with history of [...] 16 minutes. Charges/Coding Visit Charges Inpatient E&M: 71527 Init Hosp L3 Procedures Hospitalists Procedures: 51408 Advncd Care Plan 30 Min 06/13/24 2219 Cosigner Signature (if applicable): CC: Dr. Estela Staton MD; Dr. Socrates Spangler MD~ Signed ADDENDUM by Dr. Estela Staton MD on 06/13/24 at 2255 Addendum Wet read duplex negative, final read pending. ED directed ABG with pH 7.29, bicarb 28.9, O2 saturation 94%, pCO2 60.6, O2 81. Will continue BiPAP and plan repeat ABG in the next couple hours to ensure improving. 06/13/242254 Cosigner Signature (if applicable): cc: Dr. Estela Staton MD; Dr. Socrates Spangler MD ~* Signed [facility]04-02-2025 Discharge summary [facility] Medical Records Department [address] [place] [id number] Emergency Department Summary 06/13/24 MR#: [id number] Acct: [id number] Name: TOD HUNT Rep #:[id number] : 1945 78 From: Gabriel Rucker DO PCP: Dr. Socrates Spangler MD Status:ADM I N Location: [place] [address] HPI History of Present Illness Chief Complaint: [...] any fever. Denies recent travel or surgery. [facility] Medical History (Updated 06/13/24 @ 21:29 [...] Troponin slightly elevated at 34 and BT VARNISH MAKER was elevated 11,672. We attempted to do [...] 40.5 L Lymph % (Auto) 53.9 H Kimball % (Auto) 4.3 Eos % (Auto) 0.7 [...] Sens 34 [place] [address] H Radiography Diagnostic Testin view chest x-ray [...] minutes, Including time spent:, Discussing w/Patient &/or Family/Puppet Developer, Discussing w/Consultants, Arranging Admission or Transfer, Performing [...] MD [Primary Care Provider] - Print Language: Sinhala Disposition Disposition: Acute Care Hospital [facility] What to do if you have Problems For any increased pain, shortness of breath, bleeding, nausea or vomiting, chestpain, or any unexpected problems, contact your Primary Care Provider. Call [facility] ([phone]) or report tothe closest Emergency Room. Call 911 if necessary. 06/13/242253 Cosigner Signature (if applicable): CC: Dr. Socrates Spangler MD ~ Signed [facility]04-02-2025 Radiology Diagnostic study note [facility] Imaging Services [address] [place] [address] Chest 1 View (Portable) MR#: [id number] Acct: [id number] Name: TOD HUNT Rep #: [id number] : 1945 F 78 From: Sandro Medeiros DO PCP: Dr. Socrates Spangler MD Status: REG E R Study:Chest 1 View (Portable) Date of Exam: 06/13/24 Exam# [id number] Ordering Dr: Zena Rucker DO PROCEDURE: CHEST [...] infection. Small left pleural effusion. Reading Location: [facility] CC: Dr. Socrates Spangler MD; Dr. Gabriel Rucker DO ~ Logging Worker: Signed [facility]04-02-2025 Discharge summary Author Gabriel Rucker [facility] Note Date/Time June 13, 2024 10:5 4pm [facility] Medical Records Department [address] [place] [address] Emergency Department Summary 06/13/24 MR#: [id number] Acct: [id number] Name: TOD HUNT Rep #:[id number] : 1945 78 From: Gabriel Rucker DO PCP: Dr. Socrates Spangler MD Status:ADM I N Location: [place] [address] HPI History of Present Illness Chief Complaint: [...] any fever. Denies recent travel or surgery. [facility] Medical History (Updated 06/13/24 @ 21:29 [...] Troponin slightly elevated at 34 and BT VARNISH MAKER was elevated 11,672. We attempted to do [...] 40.5 L Lymph % (Auto) 53.9 H Kimball % (Auto) 4.3 Eos % (Auto) 0.7 [...] Sens 34 [place] [address] H Radiography Diagnostic Testin view chest x-ray [...] minutes, Including time spent:, Discussing w/Patient &/or Family/Puppet Developer, Discussing w/Consultants, Arranging Admission or Transfer, Performing [...] MD [Primary Care Provider] - Print Language: Sinhala Disposition Disposition: Acute Care Hospital [facility] What to do if you have Problems For any increased pain, shortness of breath, bleeding, nausea or vomiting, chestpain, or any unexpected problems, contact your Primary Care Provider. Call [facility] ([phone]) or report to the closest Emergency Room. Call 911 if necessary. 06/13/24 5629 <Electronically signed by Gabriel Rucker DO> Cosigner Signature (if applicable): CC: Dr. Socrates Spangler MD ~ Signed [facility] Work Phone: Consult note Author Genoveva Chang [facility] Note Date/Time October 24, 2024 11 :48am [facility] Medical Records Department [address] [place] [address] Counseling Note - Pharmacy 10/24/24 1147 MR#: [id number] Acct: [id number] Name: TOD HUNT Rep #:[id number] : 1945 78 From: Genoveva Chang PCP: Dr. Socrates Spangler MD Status:ADM I N Y Location: [place] [id number] Counseling Pharmacy Service has performed discharge medication reconciliation and counseling for this patient. 1. APIXABAN 5MG PO BID 2. STOP WARFARIN The patient's discharge medication list was reviewed for discrepancies and discrepancies were resolved. The patient was counseled on the following discharge medications and changes in medications for homegoing were reviewed. The Reason for Use, instructions for use, and potential side effects were reviewed for all new medications. The patient's questions regarding all of their medications were answered. The patient demonstrated some understanding but would benefit from further education and reinforcement. Patient said she isn't sure how much she will rememeber. Left education materials for patient's daughter to review. Medications at Discharge Home Medications atorvastatin 20 mg tablet 20 mg PO QHS cholesterol 05/12/16 hydrocortisone 2.5 % topical cream 1 applicatio topical BID rash 05/12/16 metoprolol tartrate 50 mg tablet 25 mg PO BID blood pressure 05/12/16 nystatin 100,000 unit/gram topical powder ([facility]) 1 applic topical BID yeast 05/14/16 docusate sodium 100 mg capsule 100 mg PO DAILY stool softner 06/16/24 pantoprazole 40 mg tablet,delayed release 40 mg PO DAILY reflux 06/16/24 ergocalciferol (vitamin D2) 1,250 mcg (50,000 unit) capsule 1,250 mcg PO QWEEK vitamin 10/18/24 escitalopram oxalate 10 mg tablet 10 mg PO QHS mental health 10/18/24 glipizide 10 mg tablet 10 mg PO BID diabetes 10/18/24 hydroxyzine pamoate 25 mg capsule 25 mg PO DAILY PRN itching 10/18/24 levothyroxine 112 mcg tablet 112 mcg PO DAILY thyroid 10/18/24 loratadine 10 mg tablet (Allergy Relief (loratadine)) 10 mg PO DAILY allergies 10/18/24 magnesium chloride 64 mg (magnesium chloride) tablet,delayed release (Mag 64) 64mg PO DAILY supplement 10/18/24 montelukast 10 mg tablet 10 mg PO DAILY allergies 10/18/24 nystatin 100,000 unit/gram topical cream 1 applic topical DAILY rash 10/18/24 potassium chloride 10 mEq tablet,extended release 10 meq PO DAILY supplement 10/18/24 apixaban 5 mg tablet (Eliquis) 5 mg PO BID #60 tabs 10/24/24 10/24/24 1148 <Electronically signed by Genoveva Chang> Date _ Genoveva Chang Cosigner Signature (if applicable): Date CC: ~ Signed [facility] Work Phone: Evaluation note* Diagnosis Onset Date Resolution Status Admit Date Acute hypoxic respiratory failure ac [place] June 13, 2024 9:28pm CHF (congestive heart failure) acute June 13, 2024 9:28pm Hypoxia acute June 13 9:28pm Pneumonia acute June 13 9:28pm Respiratory failure acute June 13, 2024 9:28pm [facility] Work Phone: Evaluation note* Diagnosis Onset Date Resolution Status Admit Date Acute metabolic encephalopat hy due to hypoglycemia acute October 18, 2024 7:19pm Adult failure to thrive acute A ugust 2024 7:19pm Bradycardia acute October 18, 2 025 7:19pm Chronic anticoagulation acute A ugust 2024 7:19pm Cutaneous candidiasis acute Aug ust 2024 7:19pm Failure to thrive acute October 18, 2024 7:19pm History of diabetes mellitus acute October 18, 2024 7:19pm Hyperkalemia acute October 18, 2024 7:19pm Unable to ambulate acute October 18, 2024 7:19pm UTI (urinary tract infection) acute October 18, 2024 7:19pm [facility] Work Phone: History and physical note Author Estela Staton [facility] Note Date/Time June 13, 2024 10:5 5pm [facility] Medical Records Department [address] [place] [address] H&P Exam - Hospitalist 06/13/242126 MR#: [id number] Acct: [id number] Name: TOD HUNT Rep #:[id number] : 1945 78 From: Estela Staton MD PCP: Dr. Socrates Spangler MD Status:ADM I N Location: [place] [address] HPI - General General Date of Admission: [...] Allergic rhinitis, GERD who presents to the [facility] ED on 06/13/24 with history of [...] levaquin 750 mg IV x 1. [facility] Medical History CKD (chronic kidney disease), stage [...] 40.5 L, Lymph % (Auto) 53.9 H, Kimball % (Auto) 4.3, Eos % (Auto) 0.7, [...] Sens 34 H, [place] [address] H Micro: Microbiology 06/13/24 19:55 Mucosa - [...] Allergic rhinitis, GERD who presents to the [facility] ED on 06/13/24 with history of [...] 16 minutes. Charges/Coding Visit Charges Inpatient E&M: 03319 Init Hosp L3 Procedures Hospitalists Procedures: 54767 Advncd Care Plan 30 Min 06/13/249 <Electronically signed by Estela Staton MD> Cosigner [...] MD; Dr. Socrates Spangler MD ~* Signed [facility] Work Phone: History and physical note Author Nico Garcia [facility] Note Date/Time October 18, 2024 6:5 5pm [facility] Medical Records Department [address] [place] [address] H&P Exam - Hospitalist 10/18/24 1841 MR#: [id number] Acct: [id number] Name: TOD HUNT Rep #:[id number] : 1945 78 From: Nico Garcia DO PCP: Dr. Socrates Spangler MD Status:REG E R Location: ED HPI - General General Date of Service: 10/18/24 Chief Complaint: Failure [...] walk for some time as she describes. [facility] Medical History Congestive heart failure (CHF) Chest [...] BI D yeast 05/14/16 Unknown Rx powder ([facility]) docusate sodium 100 mg capsule 200 mg [...] 81.4 H, Lymph % (Auto) 11.8 L, Kimball % (Auto) 6.0, Eos % (Auto) 0.4, [...] Clarity Cloudy, Urine pH 6.0, Ur Specific Plush 1.020, Urine Protein 30 H, Urine Glucose [...] atelectasis at the lung bases. Reading Location: [id number] Assessment & Plan Assessment/Plan (1) Hyperkalemia: PLAN: [...] infection): PLAN: Continue ceftriaxone. Follow-up urine culture. Erese catheter placed in the emergency room. (5) [...] life support. Charges/Coding Visit Charges Inpatient E&M: 61676 Init Hosp L3 10/18/24 1855 <Electronically signed by Nioc Garcia DO> Cosigner Signature (if applicable): CC: Dr. Socrates Spangler MD; Dr. Nico Gracia DO~ Signed [facility] Work Phone: Reason for referral (narrative)No reason for referral [facility] Work Phone: Summary Purpose Family History Relationship Condition Age at Onset Recorded Date/T [place] mother Diabetes mellitus Unknown Cardiac disease Unknown Hypertension Unknown father Diabetes mellitus Unknown Malignant neoplasm Unknown Alzheimer's dementia Unknown Advance Directives Advance Directive Response Recorded Date/ Time Living Will Yes June 13, 2024 7:44pm Do you have a Healthcare Power of Joint Setter? Yes June 13, 2024 7:44pm Name of Medical Power of Joint Setter PT DAUGHTER June 13, 2024 7:44pm Advance Directive Response Recorded Date/ Time Living Will Yes June 14, 2024 12:17am Do you have a Healthcare Power of Joint Setter? Yes June 14, 2024 12:17am Name of Medical Power of Joint Setter PT DAUGHTER June 14, 2024 12:17am Advance Directive Response Recorded Date/ Time Do you have a Healthcare Power of Joint Setter? Yes October 18, 2024 2:53pm Advance Directive Response Recorded Date/ Time Do you have a Healthcare Power of Joint Setter? Yes October 18, 2024 8:00pm Advance Directive Response Recorded Date/ Time Do you have a Healthcare Power of Joint Setter? Yes October 18, 2024 8:00pm Do you have a Healthcare Power of Joint Setter? Yes October 29, 2024 3:04pm Chief Complaint and Reason for Visit Chief Complaint Admit Date sob June 13, 2024 9:27 pm RESP FAILURE, POSS PNA, POSS HF June 9:28pm Reason for Visit Admit Date Acute [...] 9pm UTI (urinary tract infection) October 7:19pm Chief Complaint Admit Date FAILURE TO THRIVE October 18, 2024 6:2 9pm HYPOGLYCEMIA October 18, 2024 6:4 1pm FAILURE TO THRIVE October 19, 2024 2:4 2am FAILURE TO THRIVE October 20, 2024 10: 50am FAILURE TO THRIVE October 21, 2024 12 :14pm FAILURE TO THRIVE October 22, 2024 1: 22pm FAILURE TO THRIVE October 23, 2024 3: 42pm Reason for Visit Admit Date Acute metabolic encephalopathy due to hy poglycemia October 18, 2024 6:29pm Adult failure to thrive October 18, 2024 6:29pm Bradycardia October 18, 2024 6:2 9pm Chronic anticoagulation October 18, 2024 6:29pm Cutaneous candidiasis October 18, 2024 6 :29pm Failure to thrive October 18, 2024 6:2 9pm History of diabetes mellitus October 18, 2024 6:29pm Hyperkalemia October 18, 2024 6:2 9pm Unable to ambulate October 18, 2024 6:2 9pm UTI (urinary tract infection) October 6:29pm Chief Complaint Admit Date FAILURE TO THRIVE October 18, 2024 6:2 9pm HYPOGLYCEMIA October 18, 2024 6:4 1pm FAILURE TO THRIVE October 19, 2024 2:4 2am FAILURE TO THRIVE October 20, 2024 10: 50am FAILURE TO THRIVE October 21, 2024 12 :14pm FAILURE TO THRIVE October 22, 2024 1: 22pm FAILURE TO THRIVE October 23, 2024 3: 42pm FAILURE TO THRIVE October 24, 2024 11 :05am ALTERD MENTAL STATUS, HYPOTHERMIA, HYPOG LYCEMIA October 29, 2024 8:22pm Reason for Visit Admit Date Acute metabolic encephalopathy due to hy poglycemia October 18, 2024 6:29pm Adult failure to thrive October 18, 2024 6:29pm Bradycardia October 18, 2024 6:2 9pm Chronic anticoagulation October 18, 2024 6:29pm Cutaneous candidiasis October 18, 2024 6 :29pm Failure to thrive October 18, 2024 6:2 9pm History of diabetes mellitus October 18, 2024 6:29pm Hyperkalemia October 18, 2024 6:2 9pm Unable to ambulate October 18, 2024 6:2 9pm UTI (urinary tract infection) October 6:29pm Acute hypercapnic respiratory failure [place] 2024 8:22pm Acute metabolic encephalopathy due to hy poglycemia October 29, 2024 8:22pm Bradycardia October 29, 2024 8: 22pm CHF (congestive heart failure) October 292024 8:22pm History of diabetes mellitus October 8:22pm Hyperkalemia October 29, 2024 8: 22pm Hypothermia October 29, 2024 8: 22pm Additional Source Comments INFORMATION SOURCE (unrecogn ized section and content) DATE CREATED AUTHOR 09/07/2017 [facility] DATE CREATED AUTHOR AUTHOR'S ORGANIZ ATION 09/07/2017 [facility] DATE CREATED AUTHOR AUTHOR'S ORGANIZ ATION 10/25/2024 [facility] Care Teams (unrecognized sec tion and content) Team Status: Active Member Role Status Dates Dr. Socrates Spangler MD Primary Care Provider Active Team Status: Active Member Role Status Dates Dr. Socrates Spangler MD Primary Care Provider Active Start: June 13, 2024 Dr. Gabriel Rucker DO Emergency Provider Active S tart: June 13, 2024 Dr. Esteal Staton MD Attending Provider Active Start: June 13, 2024 Team Status: Active Member Role Status Dates Dr. Socartes Spangler MD Primary Care Provider Active Start: [...] Provider Active St art: June 18, 2024 BEN KitchenM Other Provider Active S tart: June 18, [...] October 18, 2024 Dr. Nico Garcia DO Admit Provider Active Star t: October 18, 2024 Dr. Nico Garcia DO Attending Provider Active Start: October 18, 2024 Team Status: Inactive Member Role/Relationship Status Dates Dr. Socrates Spangler MD Primary Care Provider Active Start: October 18, 2024 End: October 24, 2024 Dr. Ryan Yang MD Referring Provider Active S tart: October 18, 2024 End: October 24, 2024 Dr. Ryan Yang MD Emergency Provider Active S tart: October 18, 2024 End: October 24, 2024 Dr. Nico Garcia DO Admit Provider Active Star t: October 18, 2024 End: October 24, 2024 Dr. Nico Garcia DO Other Provider Active Star t: October 18, 2024 End: October 24, 2024 Dr. Haydee Sanchez MD Attending Provider Active Start: October 18, 2024 End: October 24, 2024 Team Status: Active Member Role/Relationship Status [...] MD Primary Care Provider Active Start: October 19, 2024 Dr. Ryan Yang MD Referring Provider Active S tart: October 19, 2024 Dr. Ryan Yang MD Emergency Provider Active S tart: October 19, 2024 Dr. Nico Garcia DO Admit Provider Active Star t: October 19, 2024 Dr. Nico Garcia DO Other Provider Active Star t: October 19, 2024 Dr. Estela Staton MD Attending Provider Active Start: October 19, 2024 Team Status: Active Member Role/Relationship Status Dates Dr. Socrates Spangler MD Primary Care Provider Active Start: October 20, 2024 Dr. Ryan Yang MD Referring Provider Active S tart: October 20, 2024 Dr. Ryan Yang MD Emergency Provider Active S tart: October 20, 2024 Dr. Nico Garcia DO Admit Provider Active Star t: October 20, 2024 Dr. Nico Garcia DO Other Provider Active Star t: October 20, 2024 Dr. Haydee Sanchez MD Attending Provider Active Start: October 20, 2024 Dr. Haydee Sanchez MD Other Provider Active St art: October 20, 2024 Team Status: Active Member Role/Relationship Status Dates Dr. Socrates Spangler MD Primary Care Provider Active Start: October 21, 2024 Dr. Ryan Yang MD Referring Provider Active S tart: October 21, 2024 Dr. Ryan Yang MD Emergency Provider Active S tart: October 21, 2024 Dr. Nico Garcia DO Admit Provider Active Star t: October 21, 2024 Dr. Nico Garcia DO Other Provider Active Star t: October 21, 2024 Dr. Haydee Sanchez MD Attending Provider Active Start: October 21, 2024 Dr. Haydee Sanchez MD Other Provider Active St art: October 21, 2024 Team Status: Active Member Role/Relationship Status Dates Dr. Socrates Spangler MD Primary Care Provider Active Start: October 22, 2024 Dr. Ryan Yang MD Referring Provider Active S tart: October 22, 2024 Dr. Ryan Yang MD Emergency Provider Active S tart: October 22, 2024 Dr. Nico Garcia DO Admit Provider Active Star t: October 22, 2024 Dr. Nico Garcia DO Other Provider Active Star t: October 22, 2024 Dr. Haydee Sanchez MD Attending Provider Active Start: October 22, 2024 Dr. Haydee Sanchez MD Other Provider Active St art: October 22, 2024 Team Status: Active Member Role/Relationship Status Dates Dr. Socrates Spangler MD Primary Care Provider Active Start: October 23, 2024 Dr. Ryan Yang MD Referring Provider Active S tart: October 23, 2024 Dr. Ryan Yang MD Emergency Provider Active S tart: October 23, 2024 Dr. Nico Garcia DO Admit Provider Active Star t: October 23, 2024 Dr. Nico Garcia DO Other Provider Active Star t: October 23, 2024 Dr. Haydee Sanchez MD Attending Provider Active Start: October 23, 2024 Dr. Haydee Sanchez MD Other Provider Active St art: October 23, 2024 Team Status: Active Member Role/Relationship Status Dates Dr. Socrates Spangler MD Primary Care Provider Active Start: October 24, 2024 Dr. Ryan Yang MD Referring Provider Active S tart: October 24, 2024 Dr. Ryan Yang MD Emergency Provider Active S tart: October 24, 2024 Dr. Nico Garcia DO Admit Provider Active Star t: October 24, 2024 Dr. Nico Garcia DO Other Provider Active Star t: October 24, 2024 Dr. Haydee Sanchez MD Attending Provider Active Start: October 24, 2024 Dr. Haydee Sanchez MD Other Provider Active St art: October 24, 2024 Team Status: Active Member Role/Relationship Status Dates Dr. Socrates Spangler MD Primary Care Provider Active Start: October 29, 2024 Dr. Facundo Golden DO Emergency Provider Active Start : October 29, 2024 Dr. Savanna Suero MD Admit Provider Active Star t: October 29, 2024 Dr. Savanna Suero MD Attending Provider Active Start: October 29, 2024 Dr. Savanna Suero MD Other Provider Active Star t: October 29, 2024 Goals (unrecognized section and content) Goals [...] BE BASED ON THE PRIMARY CLINICAL RECORDS. [employer] [facility]. provides no warranty or guarantee of the accuracy or completeness of information in this document.
[2024-10-30] VITALS (26 sets, daily range): BP systolic 84–120; BP diastolic 25–99; PULSE 48–76; RESP 12–25; TEMP 35.1–36.6; O2SAT 91–100; BMI 78.7
--- NOTE | 2024-10-30 00:13 | PCMCONS.TICU ---
HPI Consult Data Date of Consult: 10/30/24 HPI Narrative HPI Narrative: This is a 78-year-old female manage to the ICU for acute respiratory failure on BiPAP, CHF exacerbation, severe metabolic acidosis. She has past medical history of morbid obesity, diabetes, hypothyroid, A-fib, JAYA on CPAP, depression was recently discharged 10/24 after treatment for UTI. Today she was brought in by EMS after home caregiver called for concern of confusion on arrival hypothermic at 93.3. ABG was obtained 7.2 she was placed on BiPAP. Other labs significant for WBC 9.2, potassium 5.6, creatinine 1.1, NT proBNP 10,697, TSH 12, UA positive for leukocyte Estrace, WBCs, bacteria, INR 4.1 (on Eliquis). Heart rate 47, blood pressure 111/82 sat 100% on nonrebreather. Chest x-ray showed diffuse pulmonary vascular congestion, left retrocardiac opacity. Currently in the ICU she is comfortable on BiPAP she is able to follow commands. RN reports confused with conversation. [facility] Medical History Anxiety Depression Hyperthyroidism Diabetes Non-smoker BiPAP (biphasic positive airway pressure) dependence On home oxygen therapy Congestive heart failure (CHF) Chest pain Hypertension Migraines Contusion of right great toe without damage to nail, initial encounter CHF (congestive heart failure) CKD (chronic kidney disease), stage III Acute hypoxic respiratory failure Hypothyroidism Allergic rhinitis GERD (gastroesophageal reflux disease) Obstructive sleep apnea Hyperlipidemia Hypertension Type 2 diabetes mellitus Morbid obesity Home Medications ?Medication ?Instructions ?Recorded ?Last Taken ?Type atorvastatin 20 mg tablet 20 mg PO QHS cholesterol 05/12/16 05/11/16 22:00 History hydrocortisone 2.5 % topical cream 1 applicatio topical BID rash 05/12/16 Unknown History metoprolol tartrate 50 mg tablet 25 mg PO BID blood pressure 05/12/16 05/12/16 08:00 History nystatin 100,000 unit/gram topical 1 applic topical BID yeast 05/14/16 Unknown Rx powder ([facility]) docusate sodium 100 mg capsule 100 mg PO DAILY stool softner 06/16/24 Unknown History pantoprazole 40 mg tablet,delayed 40 mg PO DAILY reflux 06/16/24 Unknown History release ergocalciferol (vitamin D2) 1,250 1,250 mcg PO QWEEK vitamin 10/18/24 Unknown History mcg (50,000 unit) capsule escitalopram oxalate 10 mg tablet 10 mg PO QHS mental health 10/18/24 Unknown History glipizide 10 mg tablet 10 mg PO BID diabetes 10/18/24 Unknown History hydroxyzine pamoate 25 mg capsule 25 mg PO DAILY PRN itching 10/18/24 Unknown History levothyroxine 112 mcg tablet 112 mcg PO DAILY thyroid 10/18/24 Unknown History loratadine 10 mg tablet (Allergy 10 mg PO DAILY allergies 10/18/24 Unknown History Relief (loratadine)) magnesium chloride 64 mg 64 mg PO DAILY supplement 10/18/24 Unknown History (magnesium chloride) tablet,delayed release (Mag 64) montelukast 10 mg tablet 10 mg PO DAILY allergies 10/18/24 Unknown History nystatin 100,000 unit/gram topical 1 applic topical DAILY rash 10/18/24 Unknown History cream potassium chloride 10 mEq 10 meq PO DAILY supplement 10/18/24 Unknown History tablet,extended release apixaban 5 mg tablet (Eliquis) 5 mg PO BID #60 tabs 10/24/24 Unknown Rx Allergy/AdvReac Type Severity Reaction Status Date / Time lisinopril Allergy Unknown Verified 10/29/24 15:04 pollen extracts Allergy Itching Verified 10/29/24 15:04 Family History Mother Diabetes Heart disease Hypertension Father Diabetes Cancer Heart disease Alzheimer dementia Surgical History History of cholecystectomy History of ankle surgery S/P cholecystectomy Social History household members: spouse Smoking Status: Never smoker alcohol intake: never substance use type: does not use ROS Review of Systems ROS Unobtainable: due to mental status Objective Data Objective Data Vital Signs: Vital Signs Last response Temperature 35.1 C L 10/29/24 22:00 Temperature Source Core 10/29/24 22:00 Pulse Rate 49 L 10/30/24 00:08 Respiratory Rate 15 10/30/24 00:08 Respiratory Effort Normal 10/30/24 00:08 Respiratory Depth Normal 10/30/24 00:08 Respiratory Pattern Normal 10/30/24 00:08 Blood Pressure 108/53 L 10/29/24 22:00 Blood Pressure Mean 71 10/29/24 22:00 Pulse Ox 98 10/30/24 00:08 Oxygen Delivery Method Bi-pap 10/30/24 00:08 Oxygen Flow Rate (L/min) 3 10/29/24 19:00 Fraction of Inspired Oxygen (FIO2) 24 10/30/24 00:08 I&O: I&O Last 24 Hours 10/29/24 10/29/24 10/30/24 11:59 23:59 11:59 Intake Total 250 / 250 Output Total 125 / 125 Balance 125 / 125 I&O: Total Stay 10/29/24 14:57 thru 10/29/24 21:49 Intake Total 250 Output Total 125 Balance 125 Current Meds Ordered / Administered: Current meds ordered / Administered Generic Name Dose Route Start Last Admin Trade Name Freq PRN Reason Stop Dose Admin Acetaminophen 650 mg 10/29/24 23:14 Acetaminophen 325 Mg Tablet PO Q6H PRN PRN Pain 1-10 Or Fever >100.7 Albuterol Sulfate 2.5 mg 10/29/24 23:14 Albuterol 2.5 Mg/3 Ml Vial.Neb. INHALATION Q2H PRN PRN SOB &/OR WHEEZING Apixaban 5 mg 10/29/24 22:00 10/29/24 23:39 Apixaban 5 Mg Tablet PO Not Given BID [facility] Atorvastatin Calcium 20 mg 10/29/24 22:00 10/29/24 23:39 Atorvastatin Calcium 20 Mg Tablet PO Not Given QHS [facility] Furosemide 40 mg 10/30/24 00:15 Furosemide 40 Mg/4 Ml Vial IV Q8 KADEN Protocol Glucagon 1 mg 10/29/24 23:14 Glucagon 1 Mg/Ml Syringe IM X1 PRN HYPOGLYCEMIA Protocol Dextrose 250 mls @ 0 mls/hr 10/29/24 23:14 Dextrose 10%-Water IV .Q0M PRN HYPOGLYCEMIA Protocol As Directed Ceftriaxone Sodium 1 gm in 50 mls @ 100 mls/hr 10/29/24 23:14 Rocephin IV 2200 [facility] Azithromycin 500 mg/ Sodium 255 mls @ 255 mls/hr 10/30/24 10:00 Chloride IV 11/04/24 10:01 Q24 [facility] Thiamine HCl 100 mg/ Sodium 51 mls @ 200 mls/hr 10/29/24 23:14 Chloride IV DAILY [facility] Norepinephrine Bitartrate 8 mg 250 mls @ 9.375 mls/hr 10/30/24 00:05 / Sodium Chloride CONT INF .[id number] [facility] Protocol 5 MCG/MIN Levothyroxine Sodium 112 mcg 10/30/24 06:00 Levothyroxine 112 Mcg Tablet PO DAILY@0600 [facility] Melatonin 10 mg 10/29/24 23:14 Melatonin 10 Mg Tablet PO QHS PRN PRN INSOMNIA Ondansetron HCl 4 mg 10/29/24 23:14 Ondansetron 4 Mg/2 Ml Vial IV Q8H PRN PRN NAUSEA/VOMITING Pantoprazole Sodium 40 mg 10/30/24 10:00 Pantoprazole Sodium 40 Mg Tablet PO DAILY [facility] Senna/Docusate Sodium 2 tablet 10/29/24 23:14 Senna/Docusate Sodium 1 Tablet PO BID PRN PRN Constipation Physical Exam Narrative Gen: Awake on NIV, able to follow simple commands CV: S1S2 Yang Pulm: On NIV AVAPS Abd: Obese Extrem: Diffuse anasarca Skin: Candidiasis between skin folds Lab / Micro Data 10/29/24 15:29 10/29/24 20:06 Labs: Laboratory Results - last 24 hr 10/29/24 15:17: Urine Color Yellow, Urine Clarity Sl. Cloudy, Urine pH 6.0, Ur Specific [place] 1.020, Urine Protein 100 H, Urine Glucose (UA) Normal, Urine Ketones Negative, Urine Occult Blood 10 H, Urine Nitrite Negative, Urine Bilirubin 1 H, Urine Urobilinogen Normal, Ur Leukocyte Esterase 25 H, Urine RBC 5-10 SEEN, Urine WBC 5-10 SEEN, Ur Squamous Epith Cells 10-25 SEEN, Urine Bacteria 1+, Hyaline Casts 0-5 SEEN, Urine Mucus 0 SEEN, Urine Yeast RARE 10/29/24 15:29: WBC 9.2, RBC 4.57, Hgb 11.6 L, Hct 41.3, MCV 90.4, MCH 25.4 L, MCHC 28.1 L, RDW Std Deviation 55.8 H, RDW Coeff of Ryan 17.4 H, Plt Count 157, MPV 9.3, Immature Gran % (Auto) 0.500, Neut % (Auto) 76.4 H, Lymph % (Auto) 14.7 L, [place] % (Auto) 6.7, Eos % (Auto) 1.5, Baso % (Auto) 0.2, Absolute Neuts (auto) 7.0, Absolute Lymphs (auto) 1.35, Nucleated RBC % 0, PT Cancelled, INR Cancelled, APTT Cancelled, Sodium 135, Potassium 5.7 H, Chloride 102, Carbon Dioxide 25.8, Anion Gap 7, BUN 29 H, Creatinine 1.12, Estim Creat Clear Calc 73.10, Est GFR (MDRD) Non-Af 50 L, BUN/Creatinine Ratio 25.8 H, Glucose 50 L, Lactic Acid < 1.0, Calcium 9.1, Total Bilirubin 0.21, AST 24, ALT 14, Alkaline Phosphatase 77, Total Protein 5.6 L, Albumin 2.5 L, Globulin 3.2, Albumin/Globulin Ratio 0.8 L, Procalcitonin 0.06 10/29/24 15:40: Potassium 5.6 H, [place] [address] H, TSH 12.000 H, Free T4 0.90, Free T3 pg/dL 1.6 L 10/29/24 16:29: POC Glucose 49 L 10/29/24 17:19: PT 40.9 H, INR 4.1 H*, APTT 45.7 H 10/29/24 18:14: POC Glucose 105 10/29/24 19:08: POC Glucose 99 10/29/24 20:06: Potassium 5.4 H Micro: Microbiology 10/29/24 15:40 Mucosa - Nose SARS-CoV-2, Influenza & RSV (PCR) - Final ABG Data ABG results: ABG 10/29/24 10/29/24 16:12 19:22 Specimen Type ART ART Sample Site L Radial R Radial pH 7.23 L 7.26 L Bicarbonate Actual 34.0 H 32.8 H Total CO2 37 35 Base Excess 7 H 6 H O2 Saturation 93 L 82 L O2 % 2.0 2.0 ABG pCO2 80.8 H* 74.0 H* ABG pO2 84 55 L Jeronimo Test Positive Positive O2 Delivery Device Cannula Cannula Vent Mode Not entered Not entered Crit Call To/Read Back Yes Yes Blood Gas Notified Whom tess Suero Blood Gas Notified Time 16:14:41 19:24:22 Imaging Radiology Impression Chest X-Ray 08/18/25 15:24 IMPRESSION: Mild cardiomegaly and diffuse pulmonary vascular congestion. Left retrocardiac opacity. [facility] Chest X-Ray 10/29/24 22:30 IMPRESSION: Right IJ approach central venous catheter, tip at the lower SVC. No significant interval change in lung aeration. Reading Location: [id number] Assessment and Plan . Assessment and plan: ASSESSMENT # Acute hypercapnic respiratory failure # Possible pneumonia # UTI # Sepsis # Sinus bradycardia # hypothermia # Acute CHF exacerbation. Normal EF although difficult study in June. # Hyperkalemia # Hypothyroid with elevated TSH # Acute encephalopathy # Morbid obesity # H/O JAYA PLAN - Follow cultures - Continue ceftriaxone, azithromycin - Levophed to keep MAP greater than 65 - Continue NIV, currently on AVAPS - Repeat ABG in a.m. or if change in mental status - Lasix 40 IV every 8 - Follow renal panel and urine output - Resume Synthroid - Hold metoprolol - Monitor rhythm on telemetry - External warming Prophylaxis systemically anticoagulated with Eliquis Critical Care Time: 60 min The entirety of this encounter was done via Telemedicine
[2024-10-30 00:18] LABS: CORTISOL PM 13.10 ug/dL (2.68-10.50)
[2024-10-30] MEDS: Thiamine Hydrochloride 100 MG in 0.9% Normal Saline (50mL Bag) 50 ML 200 MG IV ×2 (01:10→10:09)
[2024-10-30 02:29] LABS: Base Excess 8 mmol/L (-2 to +2); FI02 24.0; PEEP 8; PO2 68 mmHG (75-100); RR 12; SITE R Radial; SO2 93 % (95-99)
[2024-10-30 05:23] LABS: Hematocrit 36.4 % (37-47); Hemoglobin 10.7 g/dL (12.0-15.0); Immature Granulocytes Count 0.050 X10^3/uL (0.0-0.0); Mean Corp Hgb Conc 29.4 g/dL (32-36); Mean Corpuscular Volume 88.6 fL (81-99); Mean Platelet Vol. 9.6 fl (6.2-12.0); NRBC Flagged by Analyzer 0 % (0-5); Platelet Count 144 K/mm3 (150-450); RBC Distribution Width CV 17.2 % (11.6-14.6); RBC Distribution Width SD 54.5 fl (35.1-43.9); Red Blood Count 4.11 M/mm3 (4.2-5.4); White Blood Count 8.7 K/mm3 (4.4-11.0)
[2024-10-30 05:33] LABS: Prothrombin Time (Protime)PT. 47.2 SECONDS (11.7-14.9)
[2024-10-30 05:42] LABS: Anion Gap 7 (5-15); BUN 29 mg/dL (4-19); BUN/Creat Ratio 26.2 RATIO (10-20); Calcium,Total 8.9 mg/dL (7.6-11.0); Carbon Dioxide 27.6 mmol/L (21.0-32.0); Chloride 102 mmol/L (98-108); Estimated Creatinine Clearance 72.15 ml/min (50-250); Glucose 150 mg/dL (70-99); Potassium 5.5 mmol/L (3.3-5.1)
[2024-10-30 07:00] LABS: Magnesium 1.4 mg/dL (1.5-2.2)
[2024-10-30 07:27] LABS: AST(SGOT) 23 U/L (<=31); Alanine Aminotransfer ALT/SGPT 13 U/L (<=34); Albumin, Serum 2.2 g/dL (3.4-4.8); Alkaline Phosphatase 72 U/L (35-104); Bilirubin, Direct 0.08 mg/dL (0.00-0.30); Globulin 3.0 g/dL (2.2-4.2)
--- NOTE | 2024-10-30 07:30 | PCM.PN.HOSP ---
Reason for Visit Chief Complaint: AMS Subjective Subjective Patient is an 78-year-old lady with multiple comorbidities including diabetes mellitus type 2Paroxysmal atrial fibrillation on Eliquis who presented to the emergency department with altered mental status. Patient was found to be hypothermic hypoglycemic with sinus bradycardia and assessment of acute metabolic encephalopathy made admitted to intensive care unit for further management Objective Data Objective Data Vital Signs: Vital Signs Temp Pulse Resp BP Pulse Ox O2 Del Method O2 Flow Rate 97.4 F L 61 16 90/78 100 Nasal Cannula 2 10/30/24 06:00 10/30/24 06:00 10/30/24 06:00 10/30/24 06:00 10/30/24 06:00 10/30/24 06:00 10/30/24 06:00 FiO2 24 10/30/24 04:00 Oxygen Flow Rate (L/min) 2 Oxygen Delivery Method Nasal Cannula Weight: 201.5 kg Body Mass Index (BMI) 78.7 Intake & Output: Intake and Output for Last 24 Hours 10/28/24 10/29/24 10/30/24 23:59 23:59 23:59 Intake Total 250 / 250 960.75 / 960.75 Output Total 125 / 125 800 / 800 Balance 125 / 125 160.75 / 160.75 Lab / Micro Data 10/30/24 05:00 10/30/24 05:00 Labs: Laboratory Results - last 24 hr 10/29/24 15:17: Urine Color Yellow, Urine Clarity Sl. Cloudy, Urine pH 6.0, Ur Specific [place] 1.020, Urine Protein 100 H, Urine Glucose (UA) Normal, Urine Ketones Negative, Urine Occult Blood 10 H, Urine Nitrite Negative, Urine Bilirubin 1 H, Urine Urobilinogen Normal, Ur Leukocyte Esterase 25 H, Urine RBC 5-10 SEEN, Urine WBC 5-10 SEEN, Ur Squamous Epith Cells 10-25 SEEN, Urine Bacteria 1+, Hyaline Casts 0-5 SEEN, Urine Mucus 0 SEEN, Urine Yeast RARE 10/29/24 15:29: WBC 9.2, RBC 4.57, Hgb 11.6 L, Hct 41.3, MCV 90.4, MCH 25.4 L, MCHC 28.1 L, RDW Std Deviation 55.8 H, RDW Coeff of Ryan 17.4 H, Plt Count 157, MPV 9.3, Immature Gran % (Auto) 0.500, Neut % (Auto) 76.4 H, Lymph % (Auto) 14.7 L, [place] % (Auto) 6.7, Eos % (Auto) 1.5, Baso % (Auto) 0.2, Absolute Neuts (auto) 7.0, Absolute Lymphs (auto) 1.35, Nucleated RBC % 0, PT Cancelled, INR Cancelled, APTT Cancelled, Sodium 135, Potassium 5.7 H, Chloride 102, Carbon Dioxide 25.8, Anion Gap 7, BUN 29 H, Creatinine 1.12, Estim Creat Clear Calc 73.10, Est GFR (MDRD) Non-Af 50 L, BUN/Creatinine Ratio 25.8 H, Glucose 50 L, Lactic Acid < 1.0, Calcium 9.1, Total Bilirubin 0.21, AST 24, ALT 14, Alkaline Phosphatase 77, Total Protein 5.6 L, Albumin 2.5 L, Globulin 3.2, Albumin/Globulin Ratio 0.8 L, Procalcitonin 0.06 10/29/24 15:40: Potassium 5.6 H, [place] [address] H, TSH 12.000 H, Free T4 0.90, Free T3 pg/dL 1.6 L 10/29/24 16:29: POC Glucose 49 L 10/29/24 17:19: PT 40.9 H, INR 4.1 H*, APTT 45.7 H 10/29/24 18:14: POC Glucose 105 10/29/24 19:08: POC Glucose 99 10/29/24 20:06: Potassium 5.4 H, Cortisol PM Sample 13.10 H 10/30/24 01:55: POC Glucose 113 H 10/30/24 03:24: POC Glucose 78 10/30/24 05:00: WBC 8.7, RBC 4.11 L, Hgb 10.7 L, Hct 36.4 L, MCV 88.6, MCH 26.0 L, MCHC 29.4 L, RDW Std Deviation 54.5 H, RDW Coeff of Ryan 17.2 H, Plt Count 144 L, MPV 9.6, Immature Gran % (Auto) 0.600, Neut % (Auto) 73.9 H, Lymph % (Auto) 16.2 L, [place] % (Auto) 7.8, Eos % (Auto) 1.3, Baso % (Auto) 0.2, Absolute Neuts (auto) 6.4, Absolute Lymphs (auto) 1.41, Nucleated RBC % 0, PT 47.2 H, INR 4.9 H*, Sodium 137, Potassium 5.5 H, Chloride 102, Carbon Dioxide 27.6, Anion Gap 7, BUN 29 H, Creatinine 1.10, Estim Creat Clear Calc 72.15, Est GFR (MDRD) Non-Af 51 L, BUN/Creatinine Ratio 26.2 H, Glucose 150 H, Calcium 8.9, Magnesium 1.4 L, Total Bilirubin < 0.15, Direct Bilirubin 0.08, AST 23, ALT 13, Alkaline Phosphatase 72, Total Protein 5.2 L, Albumin 2.2 L, Globulin 3.0 Micro: Microbiology 10/30/24 00:10 Mucosa - Nasopharyngeal Coronavirus COVID-19 PCR - Final 10/30/24 00:10 Mucosa - Nasopharyngeal Respiratory Panel (PCR) - Final 10/29/24 15:40 Mucosa - Nose SARS-CoV-2, Influenza & RSV (PCR) - Final ABG Data ABG results: ABG 10/29/24 10/29/24 10/30/24 16:12 19:22 02:26 Specimen Type ART ART ART Sample Site L Radial R Radial R Radial pH 7.23 L 7.26 L 7.38 Bicarbonate Actual 34.0 H 32.8 H 33.0 H Total CO2 37 35 35 Base Excess 7 H 6 H 8 H O2 Saturation 93 L 82 L 93 L O2 % 2.0 2.0 24.0 ABG pCO2 80.8 H* 74.0 H* 55.7 H ABG pO2 84 55 L 68 L Jeronimo Test Positive Positive Respiration Rate 12 O2 Delivery Device Cannula Cannula BiPAP Vent Mode Not entered Not entered avaps Tidal Volume 550.0 POC PEEP 8 Crit Call To/Read Back Yes Yes Blood Gas Notified Whom tess Suero Blood Gas Notified Time 16:14:41 19:24:22 Radiography Diagnostic Testing: Radiology Impression Chest X-Ray 10/29/24 15:24 IMPRESSION: Mild cardiomegaly and diffuse pulmonary vascular congestion. Left retrocardiac opacity. Reading Location: [facility] Chest X-Ray 10/29/24 22:30 IMPRESSION: Right IJ approach central venous catheter, tip at the lower SVC. No significant interval change in lung aeration. Reading Location: [facility] Physical Exam Narrative General: Patient appears fatigued HEENT: Atraumatic, normocephalic Eyes: Anicteric, normal conjunctiva, Neck: Supple Respiratory: Diminished to auscultation bilaterally Cardiovascular: Irregular S1-S2 GI: Soft, protuberant, did not appear in pain on palpation Extremities: bilateral lower extremity pitting edema Musculoskeletal: Moving all extremities in bed Neuro: No lateralizing sign Skin: No overt rashes appreciated on my exam Psych: Patient appears to be delirious Assessment & Plan Assessment/Plan (1) Acute metabolic encephalopathy due to hypoglycemia: PLAN: Plan Patient is an 78-year-old lady with multiple comorbidities including diabetes mellitus type 2Paroxysmal atrial fibrillation on Eliquis who presented to the emergency department with altered mental status. Patient was found to be hypothermic hypoglycemic with sinus bradycardia and assessment of acute metabolic encephalopathy made admitted to intensive care unit for further management 1. Acute metabolic encephalopathy ? Multifactorial including hypotension and hypoxic glycemia as well as suspected infectious etiology pneumonia versus UTI. Plan is to treat underlying clinical etiology 2. Hypoglycemia ? Secondary to use of sulfonylurea held on admission placed on D10 with ith Accu-Cheks every 4 ordered 3. Sinus bradycardia ? Thought to be secondary to patient being hypothermic. TSH obtained came back elevated. Patient is on levothyroxine plan is to adjust dose 4. Acute bacterial pneumonia ? Chest x-ray demonstrated left lower lobe infiltrate. Patient did not have elevated in the second however had a left shift given his presentation patient was started on ceftriaxone as well as azithromycin 5. Acute hypoxic and hypercapnic respiratory failure ? Patient was placed on noninvasive ventilation via BiPAP admitted to the intensive care unit coil winder repair consulted 6. Acute on chronic congestive heart failure with preserved ejection fraction ? Patient was found to have markedly elevated proBNP. Also had significant peripheral edema. Echo from 06/14/2024 demonstrated EF of 60% patient started on furosemide 7. Hyperkalemia ? Corrected for protocol repeat BMP ordered for follow-up 8. Hypothyroidism ? Patient is on levothyroxine dose adjusted given elevated TSH 9. Acute cystitis ? Patient was found to have pyuria as well as positive leukocyte esterase patient is on ceftriaxone we will follow-up on culture result 10. Diabetes mellitus type 2 with complications including hypoglycemia ? Patient oral hypoglycemic agent held currently on Accu-Cheks every 4 hours 11. GERD ? On PPI 12. Class III obesity with BMI of 78.7 ? Complicating care 13. Obstructive sleep apnea ? Patient is on PAP therapy at night consistent use encouraged 14. Paroxysmal atrial fibrillation -rate controlled patient is on systemic anticoagulation with apixaban will continue 15. DVT prophylaxis ? Patient is on apixaban 16. Physical deconditioning ? Requested for PT OT eval and home health care social worker to assist with discharge planning Time spent in the patient's overall evaluation,decision-making process, review of diagnostic data, adjustment of management, discussion with other providers, nursing nursing and ancillary staff involved in patient's care documentation, 55 Minutes Charges/Coding Visit Charges Inpatient E&M: [id number] [facility] L3
[2024-10-30] MEDS: Azithromycin 500 MG in 0.9% Normal Saline (250mL Bag) 250 ML 255 MG IV (10:08)
[2024-10-30] MEDS: APIXABAN 5 MG TABLET PO (11:00)
--- NOTE | 2024-10-30 11:02 | CASEMGMT ---
Addendum entered by Makenzie Tatum 10/30/24 11:13: SARA called pt Direction Home CM to advise of admittance and left a voicemail. YAMILET Sims Original Note: Social Work- SW called pt dtr and left a voicemail requesting a call back for coordination of care and discharge plans. SARA remains available to follow. YAMILET Sims
--- NOTE | 2024-10-30 12:36 | PN.CC_ITS ---
Objective Data Objective Data Vital Signs: Vital Signs Last response 3 Temperature 36.3 C L 10/30/24 06:00 Temperature Source Core 10/30/24 06:00 Pulse Rate 61 10/30/24 06:00 Respiratory Rate 16 10/30/24 06:00 Respiratory Effort Normal 10/30/24 04:00 Respiratory Depth Normal 10/30/24 04:00 Respiratory Pattern Normal 10/30/24 04:00 Blood Pressure 90/78 10/30/24 06:00 Blood Pressure Mean 82 10/30/24 06:00 Blood Pressure Source Monitor 10/30/24 06:00 Pulse Ox 100 10/30/24 06:00 Oxygen Delivery Method Nasal Cannula 10/30/24 06:00 Oxygen Flow Rate (L/min) 2 10/30/24 06:00 Fraction of Inspired Oxygen (FIO2) 24 10/30/24 04:00 I&O: I&O Last 24 Hours 3 10/29/24 10/30/24 10/30/24 23:59 11:59 23:59 Intake Total 250 / 250 960.75 / 960.75 Output Total 125 / 125 1025 / 1025 Balance 125 / 125 -64.25 / -64.25 I&O: Total Stay 3 10/29/24 14:57 thru 10/30/24 11:01 Intake Total 1210.75 Output Total 1150 Balance 60.75 Current Meds Ordered / Administered: Current meds ordered / Administered 3 Generic Name Dose Route Start Last Admin Trade Name Freq PRN Reason Stop Dose Admin Acetaminophen 650 mg 10/29/24 23:14 Acetaminophen 325 Mg Tablet PO Q6H PRN PRN Pain 1-10 Or Fever >100.7 Albuterol Sulfate 2.5 mg 10/29/24 23:14 Albuterol 2.5 Mg/3 Ml Vial.Neb. INHALATION Q2H PRN PRN SOB &/OR WHEEZING Apixaban 5 mg 10/29/24 22:00 10/30/24 10:39 Apixaban 5 Mg Tablet PO Not Given BID KADEN Atorvastatin Calcium 20 mg 10/29/24 22:00 10/29/24 23:39 Atorvastatin Calcium 20 Mg Tablet PO Not Given QHS KADEN Furosemide 40 mg 10/30/24 00:15 10/30/24 05:54 Furosemide 40 Mg/4 Ml Vial IV 40 mg Q8 KADEN Administration Protocol Glucagon 1 mg 10/29/24 23:14 Glucagon 1 Mg/Ml Syringe IM X1 PRN HYPOGLYCEMIA Protocol Dextrose 250 mls @ 0 mls/hr 10/29/24 23:14 10/30/24 01:41 Dextrose 10%-Water IV Infused .Q0M PRN Infusion HYPOGLYCEMIA Protocol As Directed Ceftriaxone Sodium 1 gm in 50 mls @ 100 mls/hr 10/29/24 23:14 10/30/24 01:45 Rocephin IV Infused 2200 KADEN Infusion Azithromycin 500 mg/ Sodium 255 mls @ 255 mls/hr 10/30/24 10:00 10/30/24 10:08 Chloride IV 11/04/24 10:01 255 mls/hr Q24 KADEN Administration Thiamine HCl 100 mg/ Sodium 51 mls @ 200 mls/hr 10/29/24 23:14 10/30/24 10:09 Chloride IV 200 mls/hr DAILY KADEN Administration Norepinephrine Bitartrate 8 mg 250 mls @ 9.375 mls/hr 10/30/24 00:05 10/30/24 05:13 / Sodium Chloride CONT INF Not Given .[id number] KADEN Protocol 5 MCG/MIN Levothyroxine Sodium 125 mcg 10/31/24 06:00 Levothyroxine 125 Mcg Tablet PO DAILY@0600 KADEN Melatonin 10 mg 10/29/24 23:14 Melatonin 10 Mg Tablet PO QHS PRN PRN INSOMNIA Ondansetron HCl 4 mg 10/29/24 23:14 10/30/24 08:13 Ondansetron 4 Mg/2 Ml Vial IV 4 mg Q8H PRN PRN Administration NAUSEA/VOMITING Pantoprazole Sodium 40 mg 10/30/24 10:00 10/30/24 10:39 Pantoprazole Sodium 40 Mg Tablet PO Not Given DAILY KADEN Senna/Docusate Sodium 2 tablet 10/29/24 23:14 Senna/Docusate Sodium 1 Tablet PO BID PRN PRN Constipation Lab / Micro Data 10/30/24 05:00 10/30/24 05:00 Labs: Laboratory Results - last 24 hr 10/29/24 15:17: Urine Color Yellow, Urine Clarity Sl. Cloudy, Urine pH 6.0, Ur Specific [place] 1.020, Urine Protein 100 H, Urine Glucose (UA) Normal, Urine Ketones Negative, Urine Occult Blood 10 H, Urine Nitrite Negative, Urine Bilirubin 1 H, Urine Urobilinogen Normal, Ur Leukocyte Esterase 25 H, Urine RBC 5-10 SEEN, Urine WBC 5-10 SEEN, Ur Squamous Epith Cells 10-25 SEEN, Urine Bacteria 1+, Hyaline Casts 0-5 SEEN, Urine Mucus 0 SEEN, Urine Yeast RARE 10/29/24 15:29: WBC 9.2, RBC 4.57, Hgb 11.6 L, Hct 41.3, MCV 90.4, MCH 25.4 L, M CHC 28.1 L, RDW Std Deviation 55.8 H, RDW Coeff of Ryan 17.4 H, Plt Count 157, MPV 9.3, Immature Gran % (Auto) 0.500, Neut % (Auto) 76.4 H, Lymph % (Auto) 14.7 L, [place] % (Auto) 6.7, Eos % (Auto) 1.5, Baso % (Auto) 0.2, Absolute Neuts (auto) 7.0, Absolute Lymphs (auto) 1.35, Nucleated RBC % 0, PT Cancelled, INR Cancelled, APTT Cancelled, Sodium 135, Potassium 5.7 H, Chloride 102, Carbon Dioxide 25.8, Anion Gap 7, BUN 29 H, Creatinine 1.12, Estim Creat Clear Calc 73.10, Est GFR (MDRD) Non-Af 50 L, BUN/Creatinine Ratio 25.8 H, Glucose 50 L, Lactic Acid < 1.0, Calcium 9.1, Total Bilirubin 0.21, AST 24, ALT 14, Alkaline Phosphatase 77, Total Protein 5.6 L, Albumin 2.5 L, Globulin 3.2, A lbumin/Globulin Ratio 0.8 L, Procalcitonin 0.06 10/29/24 15:40: Potassium 5.6 H, [place] [address] H, TSH 12.000 H, Free T4 0.90, Free T3 pg/dL 1.6 L 10/29/24 16:29: POC Glucose 49 L 10/29/24 17:19: PT 40.9 H, INR 4.1 H*, APTT 45.7 H 10/29/24 18:14: POC Glucose 105 10/29/24 19:08: POC Glucose 99 10/29/24 20:06: Potassium 5.4 H, Cortisol PM Sample 13.10 H 10/30/24 01:55: POC Glucose 113 H 10/30/24 03:24: POC Glucose 78 10/30/24 05:00: WBC 8.7, RBC 4.11 L, Hgb 10.7 L, Hct 36.4 L, MCV 88.6, MCH 26.0 L, MCHC 29.4 L, RDW Std Deviation 54.5 H, RDW Coeff of Ryan 17.2 H, Plt Count 144 L, MPV 9.6, Immature Gran % (Auto) 0.600, Neut % (Auto) 73.9 H, Lymph % (Auto) 16.2 L, [place] % (Auto) 7.8, Eos % (Auto) 1.3, Baso % (Auto) 0.2, Absolute Neuts (auto) 6.4, Absolute Lymphs (auto) 1.41, Nucleated RBC % 0, PT 47.2 H, INR 4.9 H*, Sodium 137, Potassium 5.5 H, Chloride 102, Carbon Dioxide 27.6, Anion Gap 7, BUN 29 H, Creatinine 1.10, Estim Creat Clear Calc 72.15, Est GFR (MDRD) Non-Af 51 L, BUN/Creatinine Ratio 26.2 H, Glucose 150 H, Calcium 8.9, Magnesium 1.4 L, Total Bilirubin < 0.15, Direct Bilirubin 0.08, AST 23, ALT 13, Alkaline Phosphatase 72, Total Protein 5.2 L, Albumin 2.2 L, Globulin 3.0 10/30/24 10:47: POC Glucose 101 Micro: Microbiology 10/30/24 05:48 Urine Catheter - Catheter Legionella Antigen - Final 10/30/24 05:48 Urine Catheter - Catheter Streptococcus pneumoniae Antigen (M - Final 10/30/24 00:10 Mucosa - Nasopharyngeal Coronavirus COVID-19 PCR - Final 10/30/24 00:10 Mucosa - Nasopharyngeal Respiratory Panel (PCR) - Final 10/29/24 15:40 Mucosa - Nose SARS-CoV-2, Influenza & RSV (PCR) - Final ABG Data ABG results: ABG 10/29/24 10/29/24 10/30/24 16:12 19:22 02:26 Specimen Type ART ART ART Sample Site L Radial R Radial R Radial pH 7.23 L 7.26 L 7.38 Bicarbonate Actual 34.0 H 32.8 H 33.0 H Total CO2 37 35 35 Base Excess 7 H 6 H 8 H O2 Saturation 93 L 82 L 93 L O2 % 2.0 2.0 24.0 ABG pCO2 80.8 H* 74.0 H* 55.7 H ABG pO2 84 55 L 68 L Jeronimo Test Positive Positive Respiration Rate 12 O2 Delivery Device Cannula Cannula BiPAP Vent Mode Not entered Not entered avaps Tidal Volume 550.0 POC PEEP 8 Crit Call To/Read Back Yes Yes Blood Gas Notified Whom tess Suero Blood Gas Notified Time 16:14:41 19:24:22 Imaging Radiology Impression Chest X-Ray 10/29/24 15:24 IMPRESSION: Mild cardiomegaly and diffuse pulmonary vascular congestion. Left retrocardiac opacity. [facility] Chest X-Ray 10/29/24 22:30 IMPRESSION: Right IJ approach central venous catheter, tip at the lower SVC. No significant interval change in lung aeration. Reading Location: [id number] Assessment and Plan . Assessment and plan: Pt seen and examined. Remains confused/disoriented but is awake, on 2L NC at this time. BPs remain soft with MAps ~60-65. Not currently on pressors. PE: Gen: Awake, no distress HEENT: PERRL/EOMI; MMM; neck supple and without obv mass CV: +S1S2 ; no heaves Pulm: diminished bases Abd: Obese; NT; no palp HSM Extrem: Diffuse anasarca; no cyanosis Skin: Dry; Candidiasis between skin folds Neuro: awake but disoriented/confused, no focal deficits A/P #Acute hypercapnic respiratory failure #Possible pneumonia #UTI #Sepsis #Sinus bradycardia #Hypothermia #Acute CHF exacerbation. Normal EF although difficult study in June. #Hyperkalemia #Hypothyroid with elevated TSH #Acute toxic/metabolic encephalopathy #Morbid obesity #H/O JAYA PLAN - Follow cultures - Continue ceftriaxone, azithromycin - Levophed to keep MAP greater than 65 - Continue NIV, currently on AVAPS --> resolved; on 2L NC; can use NIV PRN - Cont Lasix 40 IV q8h; follow renal panel and urine output - External warming - HR monitoring, cont home Eliquis & PO meds PO diet Eliquis Very guarded prognosis; would look into NH Critical Care Time: 50 min The entirety of this encounter was done via Telemedicine
--- NOTE | 2024-10-30 14:52 | CASEMGMT ---
[facility] Readmission Chart Review Index: 10/18-10/24/24. Dx: FTT Current: 10/29/24. Dx: AMS, Hypothermia, Hypoglycemia From the index admission, the patient was discharged home. Per chart review, the patient has been bed-bound for several years, and she lives with her at home, who has dementia. The patient is active with [facility] services and has a CM (Radha Valdovinos). Pt receives home health aids through [facility], 3 hours MWF and 4 hours TR. Pt also has an emergency response system. Once the patient was transported home via squad, it was noted in the chart that the home was in poor condition, with a hoarding situation and bed bugs. An APS referral was made subsequently. The patient now presents to [facility] ER with confusion, hypoglycemia, and hypoxia. The patient was placed on BiPAP and admitted to the ICU for further management. There is currently no family at the bedside, and the patient is disoriented. See SW notes. Per ICU rounds, the hospitalist reports that the pt qualifies for long-term SNF needs. SW plans to follow this patient regarding safe DC planning. CM available to assist as needed. Nik BARILLAS RN, CM
--- NOTE | 2024-10-30 16:40 | CASEMGMT ---
Social Work- spoke with Radha Airam Valdovinos, [facility] CM, who reports that pt no longer has services from [facility] and, therefore, does not have a PCP. Radha reports because of this, pt also no longer has SN services in the home. Radha reports that she spoke with pt dtr, Jazmin, 10/29 who shared that she (pt dtr) never picked up pt Eliquis, as dtr believed that [facility] would deliver med at home. Pt script was sent to [facility] per bedside nurse discussion with pt dtr at d/c. Jessica reports that pt did not take her meds over the weekend due to confusion at that time. When aide arrived 10/29 as scheduled, Radha reports that she received a call from aide that pt was not well and pt dtr was refusing to send pt to ED. Radha reports that she then spoke with pt dtr who wanted to wait a couple days and figure the meds out. An aide boiler house supervisor then reportedly arrived at the home and called emergency services for squad transport to hospital. Radha reports that dtr previously was very involved in pt visits with [facility] staff, but has not been for the past year. Radha is uncertain of precipitous in change, but did report that pt does not have bed bugs in the home and, although the home is cluttered, does not believe home is a hoarding situation. Radha reports that pt and spouse are unable to clean and rely on aide services to assist, but that it is not a hoarder-type home. Radha reports that she feels that pt is not appropriate for discharge home due to lack of home services from absence of PCP at this time. will continue to update [facility] CM on discharge plans. YAMILET Sims
[2024-10-30 19:16] LABS: Potassium 5.1 mmol/L (3.3-5.1)
[2024-10-31] VITALS (16 sets, daily range): BP systolic 95–123; BP diastolic 43–75; PULSE 52–91; RESP 16–26; TEMP 35.3–36.5; O2SAT 91–100; BMI 77.3
[2024-10-31 03:29] LABS: Hematocrit 34.8 % (37-47); Hemoglobin 9.8 g/dL (12.0-15.0); Immature Granulocytes Count 0.030 X10^3/uL (0.0-0.0); Mean Corp Hgb Conc 28.2 g/dL (32-36); Mean Corpuscular Volume 89.9 fL (81-99); Mean Platelet Vol. 8.8 fl (6.2-12.0); NRBC Flagged by Analyzer 0 % (0-5); Platelet Count 135 K/mm3 (150-450); RBC Distribution Width CV 17.6 % (11.6-14.6); RBC Distribution Width SD 56.2 fl (35.1-43.9); Red Blood Count 3.87 M/mm3 (4.2-5.4); White Blood Count 7.2 K/mm3 (4.4-11.0)
[2024-10-31 04:22] LABS: Anion Gap 6 (5-15); BUN 24 mg/dL (4-19); BUN/Creat Ratio 26.2 RATIO (10-20); Calcium,Total 7.3 mg/dL (7.6-11.0); Carbon Dioxide 26.6 mmol/L (21.0-32.0); Chloride 108 mmol/L (98-108); Estimated Creatinine Clearance 86.26 ml/min (50-250); Glucose 99 mg/dL (70-99); Magnesium 1.3 mg/dL (1.5-2.2); Potassium 4.1 mmol/L (3.3-5.1)
--- NOTE | 2024-10-31 06:53 | PCM.PN.INT ---
Assessment & Plan Assessment/Plan (1) Acute hypercapnic respiratory failure: (2) CHF (congestive heart failure): PLAN: Plan RECOMMENDATIONS: 1. Continue antibiotics, pending finalized culture results. 2. AVAPS with naps and nightly. 3. Continue to wean supplemental oxygen to maintain saturations at or above 90%. 4. Ongoing diuresis as tolerated by hemodynamics and renal function. 5. Continue Eliquis. 6. The patient is medically stable for transfer out of the intensive care unit. Will sign off from a critical care perspective. IMPRESSIONS: 1. Acute combined respiratory failure Most likely secondary to underlying pneumonia coupled with possible CHF. The patient has improved clinically with antimicrobial therapy and volume optimization with IV diuresis, which will be continued, as tolerated by hemodynamics and renal function. Recommend continuing noninvasive positive pressure ventilatory support with naps and nightly. Continue to wean supplemental oxygen to maintain saturations at or above 90%. 2. Metabolic encephalopathy Improved with supportive care. Continue antimicrobials along with noninvasive positive pressure ventilatory support with naps and nightly. 3. Super morbid obesity/heart failure with preserved ejection fraction/diabetes mellitus/GERD/obstructive sleep apnea/paroxysmal atrial fibrillation/hypothyroidism Complicates care, management, recovery and prognosis. Continue home medications as indicated. Physical therapy to work with the patient. This note was generated with [employer] dictation software. It may contain incorrect words, spelling, and punctuation that were not noted in checking the note before signing. Subjective Subjective The patient was seen and examined at the bedside this morning. Events from the last 24 hours have been reviewed. The patient is currently afebrile, hemodynamically stable and maintaining appropriate oxygen saturations on 2 L/min via nasal cannula. The patient remains on scheduled IV Lasix and antimicrobials. White blood cell count is normal. Hemoglobin and platelet count are stable. Creatinine is within normal limits. Objective Data Objective Data The patient's most recent lab work, culture data and imaging studies have all been personally reviewed. Blood and urine cultures are pending. Vital Signs: Vital Signs Temp Pulse Resp BP Pulse Ox O2 Del Method O2 Flow Rate 97.0 F L 70 16 123/48 H 98 Nasal Cannula 2 10/31/24 03:00 10/31/24 06:00 10/31/24 06:00 10/31/24 06:00 10/31/24 06:00 10/31/24 06:00 10/31/24 06:00 FiO2 24 10/31/24 04:00 Oxygen Flow Rate (L/min) 2 Oxygen Delivery Method Nasal Cannula Weight: 436 lb 8.244 oz Body Mass Index (BMI) 77.3 Intake & Output: Intake and Output for Last 24 Hours 10/29/24 10/30/24 10/31/24 23:59 23:59 23:59 Intake Total 250 / 250 1676.75 / 1676.75 Output Total 125 / 125 1975 / 2275 800 / 800 Balance 125 / 125 -298.25 / -598.25 -800 / -800 Lab / Micro Data Attestation: I reviewed the patient's lab results. 10/31/24 03:16 10/31/24 03:16 Labs: Laboratory Results - last 24 hr 10/30/24 05:00: Magnesium 1.4 L, Total Bilirubin < 0.15, Direct Bilirubin 0.08, AST 23, ALT 13, Alkaline Phosphatase 72, Total Protein 5.2 L, Albumin 2.2 L, Globulin 3.0 10/30/24 10:47: POC Glucose 101 10/30/24 16:45: POC Glucose 92 10/30/24 18:15: Potassium 5.1 10/30/24 21:36: POC Glucose 92 10/31/24 03:16: WBC 7.2, RBC 3.87 L, Hgb 9.8 L, Hct 34.8 L, MCV 89.9, MCH 25.3 L, MCHC 28.2 L, RDW Std Deviation 56.2 H, RDW Coeff of Ryan 17.6 H, Plt Count 135 L, MPV 8.8, Immature Gran % (Auto) 0.400, Neut % (Auto) 64.8, Lymph % (Auto) 25.2, [place] % (Auto) 8.1, Eos % (Auto) 1.4, Baso % (Auto) 0.1, Absolute Neuts (auto) 4.6, Absolute Lymphs (auto) 1.80, Nucleated RBC % 0, Sodium 140, Potassium 4.1, Chloride 108, Carbon Dioxide 26.6, Anion Gap 6, BUN 24 H, Creatinine 0.92, Estim Creat Clear Calc 86.26, Est GFR (MDRD) Non-Af 63, BUN/Creatinine Ratio 26.2 H, Glucose 99, Calcium 7.3 L, Phosphorus 2.8, Magnesium 1.3 L Micro: Microbiology 10/30/24 05:48 Urine Catheter - Catheter Legionella Antigen - Final 10/30/24 05:48 Urine Catheter - Catheter Streptococcus pneumoniae Antigen (M - Final 10/30/24 00:10 Mucosa - Nasopharyngeal Coronavirus COVID-19 PCR - Final 10/30/24 00:10 Mucosa - Nasopharyngeal Respiratory Panel (PCR) - Final 10/29/24 15:40 Mucosa - Nose SARS-CoV-2, Influenza & RSV (PCR) - Final Physical Exam Const alert and no apparent distress Constitutional Narrative: Super morbidly obese. General Appearance: cooperative HEENT normocephalic and head/scalp atraumatic Eyes PERRL, EOMs intact bilaterally and conjunctivae normal Neck supple General: trachea midline Chest inspection of chest normal Resp normal respiratory effort Auscultation: diminished lung sounds; Negative for rales, rhonchi or wheezes Cardio regular rate and regular rhythm GI normal to inspection, nondistended, normoactive bowel sounds Skin no rashes or lesions noted Neuro CN's II-XII intact bilaterally and no focal motor deficits Psych Mood & Affect: flat affect Charges/Coding Visit Charges Inpatient E&M: 59831 Subs Hosp L3
--- NOTE | 2024-10-31 07:24 | PN.HOSP_ITS ---
Reason for Visit Chief Complaint: AMS Subjective Subjective Patient seen she is much more coherent compared to the previous day however she also drifts into periods of hallucinations with she talks about someone trying to kill her daughter Objective Data Objective Data Vital Signs: Vital Signs Temp Pulse Resp BP Pulse Ox O2 Del Method O2 Flow Rate 97.0 F L 70 16 123/48 H 98 Nasal Cannula 2 10/31/24 03:00 10/31/24 06:00 10/31/24 06:00 10/31/24 06:00 10/31/24 06:00 10/31/24 06:00 10/31/24 06:00 FiO2 24 10/31/24 04:00 Oxygen Flow Rate (L/min) 2 Oxygen Delivery Method Nasal Cannula Weight: 198 kg Body Mass Index (BMI) 77.3 Intake & Output: Intake and Output for Last 24 Hours 10/29/24 10/30/24 10/31/24 23:59 23:59 23:59 Intake Total 250 / 250 1676.75 / 1676.75 Output Total 125 / 125 1975 / 2275 800 / 800 Balance 125 / 125 -298.25 / -598.25 -800 / -800 Lab / Micro Data 10/31/24 03:16 10/31/24 03:16 Labs: Laboratory Results - last 24 hr 10/30/24 00:45: POC Glucose 29 L* 10/30/24 00:48: POC Glucose 38 L* 10/30/24 05:00: Total Bilirubin < 0.15, Direct Bilirubin 0.08, AST 23, ALT 13, Alkaline Phosphatase 72, Total Protein 5.2 L, Albumin 2.2 L, Globulin 3.0 10/30/24 10:47: POC Glucose 101 10/30/24 16:45: POC Glucose 92 10/30/24 18:15: Potassium 5.1 10/30/24 21:36: POC Glucose 92 10/31/24 03:16: WBC 7.2, RBC 3.87 L, Hgb 9.8 L, Hct 34.8 L, MCV 89.9, MCH 25.3 L , MCHC 28.2 L, RDW Std Deviation 56.2 H, RDW Coeff of Ryan 17.6 H, Plt Count 135 L, MPV 8.8, Immature Gran % (Auto) 0.400, Neut % (Auto) 64.8, Lymph % (Auto) 25.2, [place] % (Auto) 8.1, Eos % (Auto) 1.4, Baso % (Auto) 0.1, Absolute Neuts (auto) 4.6, Absolute Lymphs (auto) 1.80, Nucleated RBC % 0, Sodium 140, Potassium 4.1, Chloride 108, Carbon Dioxide 26.6, Anion Gap 6, BUN 24 H, Creatinine 0.92, Estim Creat Clear Calc 86.26, Est GFR (MDRD) Non-Af 63, B UN/Creatinine Ratio 26.2 H, Glucose 99, Calcium 7.3 L, Phosphorus 2.8, Magnesium 1.3 L Micro: Microbiology 10/30/24 05:48 Urine Catheter - Catheter Legionella Antigen - Final 10/30/24 05:48 Urine Catheter - Catheter Streptococcus pneumoniae Antigen (M - Final 10/30/24 00:10 Mucosa - Nasopharyngeal Coronavirus COVID-19 PCR - Final 10/30/24 00:10 Mucosa - Nasopharyngeal Respiratory Panel (PCR) - Final 10/29/24 15:40 Mucosa - Nose SARS-CoV-2, Influenza & RSV (PCR) - Final Physical Exam Narrative General: Patient appears fatigued HEENT: Atraumatic, normocephalic Eyes: Anicteric, normal conjunctiva, Neck: Supple Respiratory: Diminished to auscultation bilaterally Cardiovascular: Irregular S1-S2 GI: Soft, protuberant, did not appear in pain on palpation Extremities: bilateral lower extremity pitting edema Musculoskeletal: Moving all extremities in bed Neuro: No lateralizing sign Skin: No overt rashes appreciated on my exam Psych: Patient appears to be delirious Assessment & Plan Assessment/Plan (1) Acute metabolic encephalopathy due to hypoglycemia: PLAN: Plan Patient is an 78-year-old lady with multiple comorbidities including diabetes mellitus type 2Paroxysmal atrial fibrillation on Eliquis who presented to the emergency department with altered mental status. Patient was found to be hypothermic hypoglycemic with sinus bradycardia and assessment of acute metabolic encephalopathy made admitted to intensive care unit for further management 1. Acute metabolic encephalopathy ? Multifactorial including hypotension and hypoxic glycemia as well as suspected infectious etiology pneumonia versus UTI. Plan is to treat underlying clinical etiology ? 10/31/2024;much more coherent compared to the previous day however she also drifts into periods of hallucinations with she talks about someone trying to kill her daughter 2. Hypoglycemia ? Secondary to use of sulfonylurea held on admission placed on D10 with ith Accu-Cheks every 4 ordered ? 10/2024; patient blood glucose levels remain low however much improved compared to admitting level 3. Sinus bradycardia ? Thought to be secondary to patient being hypothermic. TSH obtained came back elevated. Patient is on levothyroxine plan is to adjust dose 4. Sepsis due to bacterial PNA with acute organ dysfunction of met encephalopathy hypoglycemia respiratory failure MAP < 70 and low platelets 5. Acute bacterial pneumonia ? Chest x-ray demonstrated left lower lobe infiltrate. Patient did not have elevated in the second however had a left shift given his presentation patient was started on ceftriaxone as well as azithromycin ? 10/31/2024; cultures of so far remain negative to date 6. Acute hypoxic and hypercapnic respiratory failure ? Patient was placed on noninvasive ventilation via BiPAP admitted to the intensive care unit director cpg consulted 7. Acute on chronic congestive heart failure with preserved ejection fraction ? Patient was found to have markedly elevated proBNP. Also had significant peripheral edema. Echo from 06/14/2024 demonstrated EF of 60% patient started on furosemide ? 10/31/2024; patient continues to diurese well and is in negative fluid balance 8. Hyperkalemia ? Corrected for protocol repeat BMP ordered for follow-up ? 10/31/2024; patient potassium levels continue to be low additional replacement given 9. Acute cystitis ? Patient was found to have pyuria as well as positive leukocyte esterase patient is on ceftriaxone we will follow-up on culture result 10. Diabetes mellitus type 2 with complications including hypoglycemia ? Patient oral hypoglycemic agent held currently on Accu-Cheks every 4 hours 11. GERD ? On PPI 12. Class III obesity with BMI of 78.7 ? Complicating care 13. Obstructive sleep apnea ? Patient is on PAP therapy at night consistent use encouraged 14. Paroxysmal atrial fibrillation -rate controlled patient is on systemic anticoagulation with apixaban will continue 15. Hypothyroidism ? Patient is on levothyroxine dose adjusted given elevated TSH 16. Physical deconditioning ? Requested for PT OT eval and social insurance administrator to assist with discharge planning 17. DVT prophylaxis ? Patient is on apixaban Time spent in the patient's overall evaluation,decision-making process, review of diagnostic data, adjustment of management, discussion with other providers, nursing nursing and ancillary staff involved in patient's care documentation, 50 Minutes Charges/Coding Visit Charges Inpatient E&M: 70140 Subs Hosp L3
--- NOTE | 2024-10-31 09:49 | CASEMGMT ---
SARA A list of?SNF?providers including quality and resource use data and consistent with the patient's preferred geographic region, medical needs, and insurance network was created in [employer] Guide.? This list was provided to the SW. ELIAS Brice
[2024-10-31] MEDS: Magnesium Chloride 64 MG Delay Rel.Tablet 128 MG PO ×2 (10:15→21:42)
[2024-10-31] MEDS: APIXABAN 5 MG TABLET PO ×2 (10:17→21:41)
[2024-10-31] MEDS: Azithromycin 500 MG in 0.9% Normal Saline (250mL Bag) 250 ML 255 MG IV (10:18)
--- NOTE | 2024-10-31 11:03 | CASEMGMT ---
Social Work- SW called pt dtr Jazmin. SW introduced self and role; pt dtr agreeable to talking. Pt dtr reports that pt spouse gave pt medications on the TV stand rather than off the table over the weekend, hence the medication mix-up. Pt dtr agreeble to SNF placement at d/c. Pt dtr requested SNF list be texted. A list of SNF providers including quality and resource use data and consistent with the patient?s preferred geographic region, medical needs, and insurance network were provided via the [employer] [facility]. SW requests pt dtr make three selections as soon as possible/by the end of the day; pt dtr agreeable. SW remains available to follow. YAMILET Sims
[2024-10-31] MEDS: Thiamine Hydrochloride 100 MG in 0.9% Normal Saline (50mL Bag) 50 ML 200 MG IV (11:51)
--- NOTE | 2024-10-31 13:41 | WOUNDNOTE ---
skin photo: left heel
--- NOTE | 2024-10-31 13:41 | WOUNDNOTE ---
skin photo: right heel
--- NOTE | 2024-10-31 13:42 | WOUNDNOTE ---
skin photo: bilateral lower legs
--- NOTE | 2024-10-31 13:43 | WOUNDNOTE ---
wound photo: left upper thigh
--- NOTE | 2024-10-31 13:44 | WOUNDNOTE ---
wound photo: abdominal fold
[2024-10-31] MEDS: 0.9 % NaCl (Sterile) Posiflush 10 mL IV (14:29)
[2024-10-31] MEDS: 0.9% Saline Lock 10 ML Syringe IV (21:59)
[2024-11-01] VITALS (20 sets, daily range): BP systolic 97–135; BP diastolic 42–95; PULSE 56–82; RESP 12–23; TEMP 34.6–36.1; O2SAT 92–100; BMI 79.0
[2024-11-01] MEDS: 0.9% Saline Lock 10 ML Syringe IV (05:32)
[2024-11-01 05:47] LABS: Hematocrit 36.8 % (37-47); Hemoglobin 10.2 g/dL (12.0-15.0); Immature Granulocytes Count 0.030 X10^3/uL (0.0-0.0); Mean Corp Hgb Conc 27.7 g/dL (32-36); Mean Corpuscular Volume 92.2 fL (81-99); Mean Platelet Vol. 9.2 fl (6.2-12.0); NRBC Flagged by Analyzer 0 % (0-5); Platelet Count 141 K/mm3 (150-450); RBC Distribution Width CV 17.2 % (11.6-14.6); RBC Distribution Width SD 57.5 fl (35.1-43.9); Red Blood Count 3.99 M/mm3 (4.2-5.4); White Blood Count 7.4 K/mm3 (4.4-11.0)
[2024-11-01 06:14] LABS: Anion Gap 8 (5-15); BUN 24 mg/dL (4-19); BUN/Creat Ratio 21.9 RATIO (10-20); Calcium,Total 8.4 mg/dL (7.6-11.0); Carbon Dioxide 29.1 mmol/L (21.0-32.0); Chloride 100 mmol/L (98-108); Estimated Creatinine Clearance 71.25 ml/min (50-250); Glucose 153 mg/dL (70-99); Potassium 4.4 mmol/L (3.3-5.1)
[2024-11-01] MEDS: Magnesium Chloride 64 MG Delay Rel.Tablet 128 MG PO (09:20)
[2024-11-01] MEDS: APIXABAN 5 MG TABLET PO (09:20)
[2024-11-01] MEDS: Azithromycin 500 MG in 0.9% Normal Saline (250mL Bag) 250 ML 255 MG IV (09:29)
--- NOTE | 2024-11-01 09:58 | CASEMGMT ---
Social Work SW attempted to call daughter, it goes to voicemail that is not taking messages. SW sent a message to daughter Jazmin via [employer], requesting she call SW back w/SNF choices so referrals can be made. SARA will continue to follow. SOFYA Parada
--- NOTE | 2024-11-01 11:24 | PN.HOSP_ITS ---
Reason for Visit Chief Complaint: AMS Subjective Subjective Patient was transferred from intensive care unit to progressive care unit the day prior. Her cultures remain negative to date. She remains deconditioned and is agreeable to being discharged to a retirement facility pending her daughter picking facility of choice Objective Data Objective Data Vital Signs: Vital Signs Temp Pulse Resp BP Pulse Ox O2 Del Method O2 Flow Rate 96.3 F L 75 20 H 111/76 95 Nasal Cannula 3 11/01/24 09:08 11/01/24 09:08 11/01/24 09:08 11/01/24 09:08 11/01/24 09:08 11/01/24 10:00 11/01/24 10:00 FiO2 24 10/31/24 04:00 Oxygen Flow Rate (L/min) 3 Oxygen Delivery Method Nasal Cannula Weight: 202.4 kg Body Mass Index (BMI) 79.0 Intake & Output: Intake and Output for Last 24 Hours 10/30/24 10/31/24 11/01/24 23:59 23:59 23:59 Intake Total 1676.75 / 1676.75 756 / 756 255 / 255 Output Total 1975 / 2275 2260 / 2260 500 / 500 Balance -298.25 / -598.25 -1504 / -1504 -245 / -245 Lab / Micro Data 11/01/24 04:51 11/01/24 04:51 Labs: Laboratory Results - last 24 hr 10/31/24 11:36: POC Glucose 145 H 10/31/24 17:08: POC Glucose 164 H 10/31/24 21:57: POC Glucose 152 H 11/01/24 04:51: WBC 7.4, RBC 3.99 L, Hgb 10.2 L, Hct 36.8 L, MCV 92.2, MCH 25.6 L, MCHC 27.7 L, RDW Std Deviation 57.5 H, RDW Coeff of Ryan 17.2 H, Plt Count 141 L, MPV 9.2, Immature Gran % (Auto) 0.400, Neut % (Auto) 64.3, Lymph % (Auto) 24.5, [place] % (Auto) 8.9, Eos % (Auto) 1.5, Baso % (Auto) 0.4, Absolute Neuts (auto) 4.8, Absolute Lymphs (auto) 1.82, Nucleated RBC % 0, Sodium 137, Potassium 4.4, Chloride 100, Carbon Dioxide 29.1, Anion Gap 8, BUN 24 H, Creatinine 1.10, Estim Creat Clear Calc 71.25, Est GFR (MDRD) Non-Af 51 L, B UN/Creatinine Ratio 21.9 H, Glucose 153 H, Calcium 8.4 11/01/24 08:24: POC Glucose 155 H Micro: Microbiology 10/29/24 15:17 Urine, Catheterized Urine Culture - Final Culture exhibits no growth. 10/30/24 05:48 Urine Catheter - Catheter Legionella Antigen - Final 10/30/24 05:48 Urine Catheter - Catheter Streptococcus pneumoniae Antigen (M - Final 10/30/24 00:10 Mucosa - Nasopharyngeal Coronavirus COVID-19 PCR - Final 10/30/24 00:10 Mucosa - Nasopharyngeal Respiratory Panel (PCR) - Final 10/29/24 15:40 Mucosa - Nose SARS-CoV-2, Influenza & RSV (PCR) - Final Physical Exam Narrative General: Patient appears fatigued HEENT: Atraumatic, normocephalic Eyes: Anicteric, normal conjunctiva, Neck: Supple Respiratory: Diminished to auscultation bilaterally Cardiovascular: Irregular S1-S2 GI: Soft, protuberant, did not appear in pain on palpation Extremities: bilateral lower extremity pitting edema Musculoskeletal: Moving all extremities in bed Neuro: No lateralizing sign Skin: No overt rashes appreciated on my exam Psych: Patient appears to be delirious Assessment & Plan Assessment/Plan (1) Acute metabolic encephalopathy due to hypoglycemia: PLAN: Plan Patient is an 78-year-old lady with multiple comorbidities including diabetes mellitus type 2Paroxysmal atrial fibrillation on Eliquis who presented to the emergency department with altered mental status. Patient was found to be hypothermic hypoglycemic with sinus bradycardia and assessment of acute metabolic encephalopathy made admitted to intensive care unit for further management 1. Acute metabolic encephalopathy ? Multifactorial including hypotension and hypoxic glycemia as well as suspected infectious etiology pneumonia versus UTI. Plan is to treat underlying clinical etiology ? 10/31/2024;much more coherent compared to the previous day however she also drifts into periods of hallucinations with she talks about someone trying to kill her daughter ? 11/01/2024; patient level of sensorium continues to improve but much more coherent and interactive 2. Hypoglycemia ? Secondary to use of sulfonylurea held on admission placed [facility] D[facility] Accu-Cheks every 4 ordered ? 10/31/2024; patient blood glucose levels remain low however much improved compared to admitting level ? 11/01/2024; hypoglycemia 3. Sinus bradycardia ? Thought to be secondary to patient being hypothermic. TSH obtained came back elevated. Patient is on levothyroxine plan is to adjust dose 4. Sepsis due to bacterial PNA with acute organ dysfunction of met encephalopathy hypoglycemia respiratory failure MAP < 70 and low platelets 5. Acute bacterial pneumonia ? Chest x-ray demonstrated left lower lobe infiltrate. Patient did not have elevated in the second however had a left shift given his presentation patient was started on ceftriaxone as well as azithromycin ? 10/31/2024; cultures of so far remain negative to date 6. Acute hypoxic and hypercapnic respiratory failure ? Patient was placed on noninvasive ventilation via BiPAP admitted to the intensive care unit car installations supervisor consulted 7. Acute on chronic congestive heart failure with preserved ejection fraction ? Patient was found to have markedly elevated proBNP. Also had significant peripheral edema. Echo from 06/14/2024 demonstrated EF of 60% patient started on furosemide ? 10/31/2024; patient continues to diurese well and is in negative fluid balance 8. Hyperkalemia ? Corrected for protocol repeat BMP ordered for follow-up ? 10/31/2024; patient potassium levels continue to be low additional replacement given 9. Acute cystitis ? Patient was found to have pyuria as well as positive leukocyte esterase patient is on ceftriaxone we will follow-up on culture result 10. Diabetes mellitus type 2 with complications including hypoglycemia ? Patient oral hypoglycemic agent held currently on Accu-Cheks every 4 hours 11. GERD ? On PPI 12. Class III obesity with BMI of 78.7 ? Complicating care 13. Obstructive sleep apnea ? Patient is on PAP therapy at night consistent use encouraged 14. Paroxysmal atrial fibrillation -rate controlled patient is on systemic anticoagulation with apixaban will continue 15. Hypothyroidism ? Patient is on levothyroxine dose adjusted given elevated TSH 16. Physical deconditioning ? Requested for PT OT eval and social work instructor to assist with discharge planning 17. DVT prophylaxis ? Patient is on apixaban Time spent in the patient's overall evaluation,decision-making process, review of diagnostic data, adjustment of management, discussion with other providers, nursing nursing and ancillary staff involved in patient's care documentation, 38 Minutes Charges/Coding Visit Charges Inpatient E&M: 38526 Subs Hosp L2
--- NOTE | 2024-11-01 11:26 | WOUNDNOTE ---
wound photo: matty
--- NOTE | 2024-11-01 12:16 | CASEMGMT ---
Addendum entered by Nina Holland 11/01/24 15:07: Social Work [facility] declined due to pt's weight. SOFYA Parada Addendum entered by Nina Holland 11/01/24 14:07: Social Work Pt was not able to participate in therapy today. SW sent the referrals to the SNFs in the note below and explained that pt has not been able to participate in therapy, asked if the facilities can take pt, if they would try for precert or if we would be looking at attaining a level of care. SW will continue to follow. SOFYA Parada Original Note: Social Work Pt's daughter Jazmin did call back and gave SW the following choices: 1. [facility] 2. [facility]. [facility]. [facility]. Daughter aware that [facility] may not be in network. Daughter then asked to speak to pt. SW took portable phone in the room for pt to speak w/daughter, however pt did not wake up enough to speak w/daughter. SW gave daughter the direct number to the room so she can try and call pt later. SW called [facility], they cannot take pt due to weight limit. Pt does not have therapy notes in yet, will send other referrals once the notes have been put in. SARA will continue to follow. SOFYA Parada
[2024-11-01] MEDS: Thiamine Hydrochloride 100 MG in 0.9% Normal Saline (50mL Bag) 50 ML 200 MG IV (12:25)
[2024-11-01 13:34] LABS: Base Excess 8 mmol/L (-2 to +2); FI02 30.0; PEEP 8; PO2 65 mmHG (75-100); RR 12; SITE R Brach; SO2 87 % (95-99); Time Given 13:31:37
--- NOTE | 2024-11-01 15:24 | CASEMGMT ---
Social Work SW received a call from Radha Valdovinos([phone]), pt's CM, asking for an update. SW let her know we are trying for SNF placement. SW will keep Radha informed as pt's hospital stay continues. SOFYA Parada
[2024-11-01 15:39] LABS: Base Excess 9 mmol/L (-2 to +2); FI02 30.0; PEEP 8; PO2 66 mmHG (75-100); RR 12; SITE R Brach; SO2 89 % (95-99); Time Given 15:36:27
[2024-11-01] MEDS: 0.9 % NaCl (Sterile) Posiflush 10 mL IV ×2 (18:31→21:54)
[2024-11-01 20:21] LABS: Base Excess 12 mmol/L (-2 to +2); FI02 30.0; PEEP 8; PO2 51 mmHG (75-100); RR 168; SITE L Radial; SO2 82 % (95-99)
[2024-11-01] MEDS: 0.9% Normal Saline (250mL Bag) 250 ML 15 ML IV (22:08)
[2024-11-02] VITALS (31 sets, daily range): BP systolic 73–145; BP diastolic 40–108; PULSE 71–108; RESP 11–23; TEMP 35.7–36.6; O2SAT 90–100; BMI 78.2
[2024-11-02 03:23] LABS: Hematocrit 32.2 % (37-47); Hemoglobin 9.2 g/dL (12.0-15.0); Immature Granulocytes Count 0.030 X10^3/uL (0.0-0.0); Mean Corp Hgb Conc 28.6 g/dL (32-36); Mean Corpuscular Volume 89.2 fL (81-99); Mean Platelet Vol. 8.8 fl (6.2-12.0); NRBC Flagged by Analyzer 0 % (0-5); Platelet Count 125 K/mm3 (150-450); RBC Distribution Width CV 17.3 % (11.6-14.6); RBC Distribution Width SD 55.3 fl (35.1-43.9); Red Blood Count 3.61 M/mm3 (4.2-5.4); White Blood Count 7.4 K/mm3 (4.4-11.0)
[2024-11-02 04:03] LABS: Anion Gap 8 (5-15); BUN 22 mg/dL (4-19); BUN/Creat Ratio 21.2 RATIO (10-20); Calcium,Total 8.8 mg/dL (7.6-11.0); Carbon Dioxide 32.9 mmol/L (21.0-32.0); Chloride 102 mmol/L (98-108); Estimated Creatinine Clearance 76.55 ml/min (50-250); Glucose 122 mg/dL (70-99); Potassium 3.8 mmol/L (3.3-5.1)
--- NOTE | 2024-11-02 04:06 | NURSING ---
Last evening patient noted to desat down to the 70s on the bipap. FiO2 increased to 100% and patient still continued to drop down to 50% and stayed there for approximately 10-[address] Staton and respiratory therapy notified of event. In the last 15 minutes, patient desatted down to the 50-60% range several times, even after FiO2 was increased. RT notified and will come to adjust pressures. Dr. Staton notified as well.
[2024-11-02 04:49] LABS: Magnesium 1.4 mg/dL (1.5-2.2)
--- NOTE | 2024-11-02 07:17 | PCM.PN.HOSP ---
Reason for Visit Chief Complaint: AMS Subjective Subjective Patient was transferred back to the intensive care unit after significant lethargy ABG demonstrated respiratory acidosis. Patient was placed on noninvasive ventilation. Patient was also placed under enteric precautions following bouts of profuse diarrhea stool for C. difficile was sent Objective Data Objective Data Vital Signs: Vital Signs Temp Pulse Resp BP Pulse Ox O2 Del Method O2 Flow Rate 97.5 F L 80 16 108/45 L 100 Bi-pap 3 11/02/24 07:00 11/02/24 07:09 11/02/24 07:09 11/02/24 07:00 11/02/24 07:09 11/02/24 07:00 11/01/24 10:00 FiO2 60 11/02/24 07:09 Oxygen Flow Rate (L/min) 3 Oxygen Delivery Method Bi-pap Weight: 200.2 kg Body Mass Index (BMI) 78.2 Intake & Output: Intake and Output for Last 24 Hours 10/31/24 11/01/24 11/02/24 23:59 23:59 23:59 Intake Total 756 / 756 356 / 356 62.5 / 62.5 Output Total 2260 / 2260 950 / 1700 1400 / 1400 Balance -1504 / -1504 -594 / -1344 -1337.5 / -1337.5 Lab / Micro Data 11/02/24 03:16 11/02/24 03:16 Labs: Laboratory Results - last 24 hr 11/01/24 08:24: POC Glucose 155 H 11/01/24 12:02: POC Glucose 141 H 11/01/24 17:37: POC Glucose 130 H 11/01/24 19:21: POC Glucose 117 H 11/01/24 22:20: POC Glucose 102 11/02/24 03:16: WBC 7.4, RBC 3.61 L, Hgb 9.2 L, Hct 32.2 L, MCV 89.2, MCH 25.5 L, MCHC 28.6 L, RDW Std Deviation 55.3 H, RDW Coeff of Ryan 17.3 H, Plt Count 125 L, MPV 8.8, Immature Gran % (Auto) 0.400, Neut % (Auto) 72.8 H, Lymph % (Auto) 16.6 L, [place] % (Auto) 8.1, Eos % (Auto) 2.0, Baso % (Auto) 0.1, Absolute Neuts (auto) 5.4, Absolute Lymphs (auto) 1.23, Nucleated RBC % 0, Sodium 142, Potassium 3.8, Chloride 102, Carbon Dioxide 32.9 H, Anion Gap 8, BUN 22 H, Creatinine 1.04, Estim Creat Clear Calc 76.55, Est GFR (MDRD) Non-Af 54 L, BUN/Creatinine Ratio 21.2 H, Glucose 122 H, Calcium 8.8, Phosphorus 2.6 L, Magnesium 1.4 L Micro: Microbiology 11/01/24 15:00 Stool Clostridioides difficile (PCR) - Final 10/29/24 15:17 Urine, Catheterized Urine Culture - Final Culture exhibits no growth. 10/30/24 05:48 Urine Catheter - Catheter Legionella Antigen - Final 10/30/24 05:48 Urine Catheter - Catheter Streptococcus pneumoniae Antigen (M - Final 10/30/24 00:10 Mucosa - Nasopharyngeal Coronavirus COVID-19 PCR - Final 10/30/24 00:10 Mucosa - Nasopharyngeal Respiratory Panel (PCR) - Final 10/29/24 15:40 Mucosa - Nose SARS-CoV-2, Influenza & RSV (PCR) - Final ABG Data ABG results: ABG 11/01/24 11/01/24 11/01/24 13:30 15:34 20:16 Specimen Type ART ART ART Sample Site R Brach R Brach L Radial pH 7.25 L 7.30 L 7.36 Bicarbonate Actual 35.5 H 35.8 H 37.1 H Total CO2 38 38 39 Base Excess 8 H 9 H 12 H O2 Saturation 87 L 89 L 82 L O2 % 30.0 30.0 30.0 ABG pCO2 80.8 H* 73.4 H* 65.2 H ABG pO2 65 L 66 L 51 L Jeronimo Test N/A Respiration Rate 12 12 168 O2 Delivery Device BiPAP BiPAP BiPAP Vent Mode Not entered Not entered Not entered Tidal Volume 550.0 550.0 550.0 POC PEEP 8 8 8 Crit Call To/Read Back Yes Yes Blood Gas Notified Whom harman hammer Blood Gas Notified Time 13:31:37 15:36:27 Physical Exam Narrative General: Patient appears fatigued HEENT: Atraumatic, normocephalic Eyes: Anicteric, normal conjunctiva, Neck: Supple Respiratory: Diminished to auscultation bilaterally Cardiovascular: Irregular S1-S2 GI: Soft, protuberant, did not appear in pain on palpation Extremities: bilateral lower extremity pitting edema Musculoskeletal: Moving all extremities in bed Neuro: No lateralizing sign Skin: Stasis dermatitis Psych: Patient appears to be delirious Assessment & Plan Assessment/Plan (1) Acute metabolic encephalopathy due to hypoglycemia: PLAN: Plan Patient is an 78-year-old lady with multiple comorbidities including diabetes mellitus type 2Paroxysmal atrial fibrillation on Eliquis who presented to the emergency department with altered mental status. Patient was found to be hypothermic hypoglycemic with sinus bradycardia and assessment of acute metabolic encephalopathy made admitted to intensive care unit for further management 1. Acute metabolic encephalopathy ? Multifactorial including hypotension and hypoxic glycemia as well as suspected infectious etiology pneumonia versus UTI. Plan is to treat underlying clinical etiology ? 10/31/2024;much more coherent compared to the previous day however she also drifts into periods of hallucinations with she talks about someone trying to kill her daughter ? 11/01/2024; patient level of sensorium continues to improve but much more coherent and interactive ? 11/01/2024; patient level of sensorium continues to fluctuate 2. Hypoglycemia ? Secondary to use of sulfonylurea held on admission placed on D10 with ith Accu-Cheks every 4 ordered ? 10/31/2024; patient blood glucose levels remain low however much improved compared to admitting level ? 11/01/2024; hypoglycemia resolved 3. Sinus bradycardia ? Thought to be secondary to patient being hypothermic. TSH obtained came back elevated. Patient is on levothyroxine plan is to adjust dose 4. Sepsis due to bacterial PNA with acute organ dysfunction of met encephalopathy hypoglycemia respiratory failure MAP < 70 and low platelets 5. Acute bacterial pneumonia ? Chest x-ray demonstrated left lower lobe infiltrate. Patient did not have elevated in the second however had a left shift given his presentation patient was started on ceftriaxone as well as azithromycin ? 10/31/2024; cultures of so far remain negative to date 6. Acute hypoxic and hypercapnic respiratory failure ? Patient was placed on noninvasive ventilation via BiPAP admitted to the intensive care unit experimental mechanic spacecraft consulted ? 11/02/2022; patient had to be placed back on BiPAP given deteriorating respiratory status patient was transferred back to the intensive care unit 7. Acute on chronic congestive heart failure with preserved ejection fraction ? Patient was found to have markedly elevated proBNP. Also had significant peripheral edema. Echo from 06/14/2024 demonstrated EF of 60% patient started on furosemide ? 10/31/2024; patient continues to diurese well and is in negative fluid balance 8. Hyperkalemia ? Corrected for protocol repeat BMP ordered for follow-up 9. Acute cystitis ? Patient was found to have pyuria as well as positive leukocyte esterase patient is on ceftriaxone we will follow-up on culture result ? 11/02/2024; urine cultures came back negative 10. Diabetes mellitus type 2 with complications including hypoglycemia ? Patient oral hypoglycemic agent held currently on Accu-Cheks every 4 hours 11. GERD ? On PPI 12. Class III obesity with BMI of 78.7 ? Complicating care 13. Obstructive sleep apnea ? Patient is on PAP therapy at night consistent use encouraged 14. Paroxysmal atrial fibrillation -rate controlled patient is on systemic anticoagulation with apixaban will continue 15. Hypothyroidism ? Patient is on levothyroxine dose adjusted given elevated TSH 16. Physical deconditioning ? Requested for PT OT eval and social problems specialist to assist with discharge planning 17. DVT prophylaxis ? Patient is on apixaban 18. Diarrhea ? Patient was placed on enteric precautions 2 for C. difficile sent did institute fecal management system ? 11/02/2024; patient stool for C. difficile came back negative 19. Anemia ? Secondary to chronic disorder monitoring H&H and transfuse if patient becomes symptomatic or hemoglobin falls below 7 20. Hypophosphatemia ? Corrected per protocol 21. Hypomagnesia ? Magnesium replacement initiated 22. Extensive cutaneous candidiasis ? Patient receiving topical nystatin. Also being seen and evaluated by wound care nurse Time spent in the patient's overall evaluation,decision-making process, review of diagnostic data, adjustment of management, discussion with other providers, nursing nursing and ancillary staff involved in patient's care documentation, 50 Minutes Charges/Coding Visit Charges Inpatient E&M: 41613 Subs Hosp L3
--- NOTE | 2024-11-02 08:07 | CASEMGMT ---
Discharge Planning [facility], [facility], and [facility] have declined. Arabella Bertrand DC Planning Asst.
[2024-11-02] MEDS: Magnesium Sulfate 2 GM in Dextrose 5%-Water (100mL Bag) 100 ML IV (08:13)
--- NOTE | 2024-11-02 08:43 | PCM.PN.INT ---
Assessment & Plan Assessment/Plan (1) Acute hypercapnic respiratory failure: (2) CHF (congestive heart failure): PLAN: Plan RECOMMENDATIONS: 1. Continue antibiotics. 2. It is imperative that the patient utilize AVAPS therapy with naps and nightly. 3. Continue to wean supplemental oxygen to maintain saturations at or above 90%. 4. Ongoing diuresis as tolerated by hemodynamics and renal function. 5. Continue Eliquis. 6. The patient is medically stable for transfer out of the intensive care unit. Recommend goals of care discussion with the patient's family. Will defer to hospitalist. IMPRESSIONS: 1. Acute combined respiratory failure Most likely secondary to underlying pneumonia coupled with possible CHF. The patient has improved clinically with antimicrobial therapy and volume optimization with IV diuresis, which will be continued, as tolerated by hemodynamics and renal function. Recommend continuing noninvasive positive pressure ventilatory support with naps and nightly. Continue to wean supplemental oxygen to maintain saturations at or above 90%. 2. Metabolic encephalopathy Related to hypercapnia in the setting of obstructive sleep apnea and alveolar hypoventilation secondary to obesity. It is imperative that the patient continue to utilize PAP therapy with naps and nightly, as her noncompliance has led to recurrent hypercapnia. 3. Super morbid obesity/heart failure with preserved ejection fraction/diabetes mellitus/GERD/obstructive sleep apnea/paroxysmal atrial fibrillation/hypothyroidism Complicates care, management, recovery and prognosis. Continue home medications as indicated. Physical therapy to work with the patient. This note was generated with [employer] dictation software. It may contain incorrect words, spelling, and punctuation that were not noted in checking the note before signing. Subjective Subjective The patient was seen and examined at the bedside this morning. Events from the last 24 hours have been reviewed. The patient is currently afebrile, hemodynamically stable and maintaining appropriate oxygen saturations on 2 L/min via nasal cannula. The patient was transferred back to the ICU after she developed worsening encephalopathy secondary to hypercapnia due to noncompliance with PAP therapy. However, after being placed back on AVAPS, the patient's ABG has improved and she is now mentating per her baseline. Objective Data Objective Data The patient's most recent lab work, culture data and imaging studies have all been personally reviewed. Blood and urine cultures have not demonstrated any growth to date. Vital Signs: Vital Signs Temp Pulse Resp BP Pulse Ox O2 Del Method O2 Flow Rate 97.8 F 81 15 120/57 L 100 Bi-pap 3 11/02/24 08:00 11/02/24 08:00 11/02/24 08:00 11/02/24 08:00 11/02/24 08:00 11/02/24 08:00 11/01/24 10:00 FiO2 60 11/02/24 08:00 Oxygen Flow Rate (L/min) 3 Oxygen Delivery Method Bi-pap Weight: 441 lb 5.847 oz Body Mass Index (BMI) 78.2 Intake & Output: Intake and Output for Last 24 Hours 10/31/24 11/01/24 11/02/24 23:59 23:59 23:59 Intake Total 756 / 756 356 / 356 62.5 / 62.5 Output Total 2260 / 2260 950 / 1700 1400 / 1400 Balance -1504 / -1504 -594 / -1344 -1337.5 / -1337.5 Lab / Micro Data Attestation: I reviewed the patient's lab results. 11/02/24 03:16 11/02/24 03:16 Labs: Laboratory Results - last 24 hr 11/01/24 08:24: POC Glucose 155 H 11/01/24 12:02: POC Glucose 141 H 11/01/24 17:37: POC Glucose 130 H 11/01/24 19:21: POC Glucose 117 H 11/01/24 22:20: POC Glucose 102 11/02/24 03:16: WBC 7.4, RBC 3.61 L, Hgb 9.2 L, Hct 32.2 L, MCV 89.2, MCH 25.5 L, MCHC 28.6 L, RDW Std Deviation 55.3 H, RDW Coeff of Ryan 17.3 H, Plt Count 125 L, MPV 8.8, Immature Gran % (Auto) 0.400, Neut % (Auto) 72.8 H, Lymph % (Auto) 16.6 L, [place] % (Auto) 8.1, Eos % (Auto) 2.0, Baso % (Auto) 0.1, Absolute Neuts (auto) 5.4, Absolute Lymphs (auto) 1.23, Nucleated RBC % 0, Sodium 142, Potassium 3.8, Chloride 102, Carbon Dioxide 32.9 H, Anion Gap 8, BUN 22 H, Creatinine 1.04, Estim Creat Clear Calc 76.55, Est GFR (MDRD) Non-Af 54 L, BUN/Creatinine Ratio 21.2 H, Glucose 122 H, Calcium 8.8, Phosphorus 2.6 L, Magnesium 1.4 L 11/02/24 07:07: POC Glucose 113 H Micro: Microbiology 11/01/24 15:00 Stool Clostridioides difficile (PCR) - Final 10/29/24 15:17 Urine, Catheterized Urine Culture - Final Culture exhibits no growth. 10/30/24 05:48 Urine Catheter - Catheter Legionella Antigen - Final 10/30/24 05:48 Urine Catheter - Catheter Streptococcus pneumoniae Antigen (M - Final 10/30/24 00:10 Mucosa - Nasopharyngeal Coronavirus COVID-19 PCR - Final 10/30/24 00:10 Mucosa - Nasopharyngeal Respiratory Panel (PCR) - Final 10/29/24 15:40 Mucosa - Nose SARS-CoV-2, Influenza & RSV (PCR) - Final ABG Data ABG results: ABG 11/01/24 11/01/24 11/01/24 13:30 15:34 20:16 Specimen Type ART ART ART Sample Site R Brach R Brach L Radial pH 7.25 L 7.30 L 7.36 Bicarbonate Actual 35.5 H 35.8 H 37.1 H Total CO2 38 38 39 Base Excess 8 H 9 H 12 H O2 Saturation 87 L 89 L 82 L O2 % 30.0 30.0 30.0 ABG pCO2 80.8 H* 73.4 H* 65.2 H ABG pO2 65 L 66 L 51 L Jeronimo Test N/A Respiration Rate 12 12 168 O2 Delivery Device BiPAP BiPAP BiPAP Vent Mode Not entered Not entered Not entered Tidal Volume 550.0 550.0 550.0 POC PEEP 8 8 8 Crit Call To/Read Back Yes Yes Blood Gas Notified Whom harman del angelbrijesh Blood Gas Notified Time 13:31:37 15:36:27 Physical Exam Const alert and no apparent distress Constitutional Narrative: Super morbidly obese. Alert and oriented to person and place. General Appearance: cooperative HEENT normocephalic and head/scalp atraumatic Eyes PERRL, EOMs intact bilaterally and conjunctivae normal Neck supple General: trachea midline Chest inspection of chest normal Resp normal respiratory effort Auscultation: diminished lung sounds; Negative for rales, rhonchi or wheezes Cardio regular rate and regular rhythm GI normal to inspection, nondistended, normoactive bowel sounds Skin no rashes or lesions noted Neuro CN's II-XII intact bilaterally and no focal motor deficits Psych Mood & Affect: flat affect Charges/Coding Visit Charges Inpatient E&M: 14464 Subs Hosp L2
[2024-11-02] MEDS: Magnesium Chloride 64 MG Delay Rel.Tablet 128 MG PO ×2 (09:29→21:28)
[2024-11-02] MEDS: APIXABAN 5 MG TABLET PO ×2 (09:29→21:29)
[2024-11-02] MEDS: Potassium Phosphate 40 MM in 0.9% Normal Saline (500mL Bag) 500 ML 62.5 MM IV (09:31)
[2024-11-02] MEDS: Thiamine Hydrochloride 100 MG in 0.9% Normal Saline (50mL Bag) 50 ML 200 MG IV (11:00)
--- NOTE | 2024-11-02 11:05 | CASEMGMT ---
Addendum entered by Nina Holland 11/02/24 16:16: Social Work SW did try to call pt's daughter again, the call will not go through. SW will try again tomorrow. SOFYA Parada Original Note: Social Work As per physician, pt will be here through the weekend. SW sent updates to [facility], inquired if they can take pt. SW called daughter to see if we can get additional SNF choices, message left. SW will continue to follow. SOFYA Parada
[2024-11-02] MEDS: Azithromycin 500 MG in 0.9% Normal Saline (250mL Bag) 250 ML 255 MG IV (11:38)
[2024-11-02 12:59] LABS: Magnesium 1.6 mg/dL (1.5-2.2)
[2024-11-02] MEDS: 0.9% Normal Saline (250mL Bag) 250 ML 15 ML IV (21:28)
[2024-11-03] VITALS (30 sets, daily range): BP systolic 94–165; BP diastolic 41–98; PULSE 84–115; RESP 12–27; TEMP 36.2–36.7; O2SAT 90–100; BMI 77.6
[2024-11-03] MEDS: 0.9% Saline Lock 10 ML Syringe IV (03:35)
[2024-11-03 03:38] LABS: Hematocrit 30.9 % (37-47); Hemoglobin 9.1 g/dL (12.0-15.0); Immature Granulocytes Count 0.040 X10^3/uL (0.0-0.0); Mean Corp Hgb Conc 29.4 g/dL (32-36); Mean Corpuscular Volume 86.8 fL (81-99); Mean Platelet Vol. 8.5 fl (6.2-12.0); NRBC Flagged by Analyzer 0 % (0-5); Platelet Count 141 K/mm3 (150-450); RBC Distribution Width CV 17.6 % (11.6-14.6); RBC Distribution Width SD 54.6 fl (35.1-43.9); Red Blood Count 3.56 M/mm3 (4.2-5.4); White Blood Count 9.3 K/mm3 (4.4-11.0)
[2024-11-03 03:58] LABS: Anion Gap 8 (5-15); BUN 21 mg/dL (4-19); BUN/Creat Ratio 19.4 RATIO (10-20); Calcium,Total 8.5 mg/dL (7.6-11.0); Carbon Dioxide 34.0 mmol/L (21.0-32.0); Chloride 103 mmol/L (98-108); Estimated Creatinine Clearance 74.17 ml/min (50-250); Glucose 190 mg/dL (70-99); Magnesium 1.6 mg/dL (1.5-2.2); Potassium 4.0 mmol/L (3.3-5.1)
--- NOTE | 2024-11-03 07:08 | PCM.PN.HOSP ---
Reason for Visit Chief Complaint: AMS Subjective Subjective Patient seen her level of sensorium continues to improve. Had a discussion with patient's daughter the day prior regarding her clinical condition. Also did discuss question of patient CODE STATUS noted preferences for patient to still remain full code. Plan is for patient to be transferred from the ICU to the progressive care unit if she is able to maintain her level of sensorium. Her generalized edema also improving Objective Data Objective Data Vital Signs: Vital Signs Temp Pulse Resp BP Pulse Ox O2 Del Method O2 Flow Rate 97.5 F L 101 H 23 H 122/59 H 98 Bi-pap 4 11/03/24 07:00 11/03/24 07:00 11/03/24 07:00 11/03/24 07:00 11/03/24 07:00 11/03/24 07:00 11/03/24 06:00 FiO2 30 11/03/24 07:00 Oxygen Flow Rate (L/min) 4 Oxygen Delivery Method Bi-pap Weight: 198.9 kg Body Mass Index (BMI) 77.6 Intake & Output: Intake and Output for Last 24 Hours 11/01/24 11/02/24 11/03/24 23:59 23:59 23:59 Intake Total 356 / 356 1112.0833 / 1112.0833 91.75 / 91.75 Output Total 950 / 1700 2850 / 2850 400 / 400 Balance -594 / -1344 -1737.9167 / -1737.9167 -308.25 / -308.25 Lab / Micro Data 11/03/24 03:33 11/03/24 03:33 Labs: Laboratory Results - last 24 hr 11/02/24 07:07: POC Glucose 113 H 11/02/24 11:58: POC Glucose 113 H 11/02/24 12:15: Magnesium 1.6 11/02/24 16:24: POC Glucose 155 H 11/02/24 22:12: POC Glucose 181 H 11/03/24 03:33: WBC 9.3, RBC 3.56 L, Hgb 9.1 L, Hct 30.9 L, MCV 86.8, MCH 25.6 L, MCHC 29.4 L, RDW Std Deviation 54.6 H, RDW Coeff of Ryan 17.6 H, Plt Count 141 L, MPV 8.5, Immature Gran % (Auto) 0.400, Neut % (Auto) 69.3, Lymph % (Auto) 20.9, Ada % (Auto) 7.8, Eos % (Auto) 1.4, Baso % (Auto) 0.2, Absolute Neuts (auto) 6.5, Absolute Lymphs (auto) 1.95, Nucleated RBC % 0, Sodium 146 H, Potassium 4.0, Chloride 103, Carbon Dioxide 34.0 H, Anion Gap 8, BUN 21 H, Creatinine 1.06, Estim Creat Clear Calc 74.17, Est GFR (MDRD) Non-Af 53 L, BUN/Creatinine Ratio 19.4, Glucose 190 H, Calcium 8.5, Magnesium 1.6 Micro: Microbiology 11/01/24 15:00 Stool Clostridioides difficile (PCR) - Final 10/29/24 15:17 Urine, Catheterized Urine Culture - Final Culture exhibits no growth. 10/30/24 05:48 Urine Catheter - Catheter Legionella Antigen - Final 10/30/24 05:48 Urine Catheter - Catheter Streptococcus pneumoniae Antigen (M - Final 10/30/24 00:10 Mucosa - Nasopharyngeal Coronavirus COVID-19 PCR - Final 10/30/24 00:10 Mucosa - Nasopharyngeal Respiratory Panel (PCR) - Final 10/29/24 15:40 Mucosa - Nose SARS-CoV-2, Influenza & RSV (PCR) - Final Physical Exam Narrative General: Patient appears fatigued HEENT: Atraumatic, normocephalic Eyes: Anicteric, normal conjunctiva, Neck: Supple Respiratory: Diminished to auscultation bilaterally Cardiovascular: Irregular S1-S2 GI: Soft, protuberant, did not appear in pain on palpation Extremities: bilateral lower extremity pitting edema Musculoskeletal: Moving all extremities in bed Neuro: No lateralizing sign Skin: Stasis dermatitis Psych: Flat affect Assessment & Plan Assessment/Plan (1) Acute metabolic encephalopathy due to hypoglycemia: PLAN: Plan Patient is an 78-year-old lady with multiple comorbidities including diabetes mellitus type 2Paroxysmal atrial fibrillation on Eliquis who presented to the emergency department with altered mental status. Patient was found to be hypothermic hypoglycemic with sinus bradycardia and assessment of acute metabolic encephalopathy made admitted to intensive care unit for further management 1. Acute metabolic encephalopathy ? Multifactorial including hypotension and hypoxic glycemia as well as suspected infectious etiology pneumonia versus UTI. Plan is to treat underlying clinical etiology ? 10/31/2024;much more coherent compared to the previous day however she also drifts into periods of hallucinations with she talks about someone trying to kill her daughter ? 11/01/2024; patient level of sensorium continues to improve but much more coherent and interactive ? 11/02/2024; patient level of sensorium continues to fluctuate ? 11/03/2024; patient level of sensorium improving plan is for patient to be transferred from the intensive care unit to [facility] care unit 2. Hypoglycemia ? Secondary to use of sulfonylurea held on admission placed on D10 with ith Accu-Cheks every 4 ordered ? 10/31/2024; patient blood glucose levels remain low however much improved compared to admitting level ? 11/01/2024; hypoglycemia resolved 3. Sinus bradycardia ? Thought to be secondary to patient being hypothermic. TSH obtained came back elevated. Patient is on levothyroxine plan is to adjust dose ? 11/03/2024; patient sinus bradycardia has resolved 4. Sepsis due to bacterial PNA with acute organ dysfunction of met encephalopathy hypoglycemia respiratory failure MAP < 70 and low platelets 5. Acute bacterial pneumonia ? Chest x-ray demonstrated left lower lobe infiltrate. Patient did not have elevated in the second however had a left shift given his presentation patient was started on ceftriaxone as well as azithromycin ? 10/31/2024; cultures of so far remain negative to date ? 11/03/2024; plan is to complete antibiotic therapy on 11/05/2026 6. Acute hypoxic and hypercapnic respiratory failure ? Patient was placed on noninvasive ventilation via BiPAP admitted to the intensive care unit librarian special library consulted ? 11/02/2022; patient had to be placed back on BiPAP given deteriorating respiratory status patient was transferred back to the intensive care unit ? 11/03/2022; consistent use of BiPAP encouraged when sleeping 7. Acute on chronic congestive heart failure with preserved ejection fraction ? Patient was found to have markedly elevated proBNP. Also had significant peripheral edema. Echo from 06/14/2024 demonstrated EF of 60% patient started on furosemide ? 10/31/2024; patient continues to diurese well and is in negative fluid balance 8. Hyperkalemia ? Corrected for protocol repeat BMP ordered for follow-up 9. Acute cystitis ? Patient was found to have pyuria as well as positive leukocyte esterase patient is on ceftriaxone we will follow-up on culture result ? 11/02/2024; urine cultures came back negative 10. Diabetes mellitus type 2 with complications including hypoglycemia ? Patient oral hypoglycemic agent held currently on Accu-Cheks every 4 hours 11. GERD ? On PPI 12. Class III obesity with BMI of 78.7 ? Complicating care 13. Obstructive sleep apnea ? Patient is on PAP therapy at night consistent use encouraged 14. Paroxysmal atrial fibrillation -rate controlled patient is on systemic anticoagulation with apixaban will continue 15. Hypothyroidism ? Patient is on levothyroxine dose adjusted given elevated TSH 16. Physical deconditioning ? Requested for PT OT eval and public health social worker to assist with discharge planning 17. DVT prophylaxis ? Patient is on apixaban 18. Diarrhea ? Patient was placed on enteric precautions 2 for C. difficile sent did institute fecal management system ? 11/02/2024; patient stool for C. difficile came back negative 19. Anemia ? Secondary to chronic disorder monitoring H&H and transfuse if patient becomes symptomatic or hemoglobin falls below 7 20. Hypophosphatemia ? Corrected per protocol 21. Hypomagnesia ? Magnesium replacement initiated 22. Extensive cutaneous candidiasis ? Patient receiving topical nystatin. Also being seen and evaluated by wound care nurse Time spent in the patient's overall evaluation,decision-making process, review of diagnostic data, adjustment of management, discussion with other providers, nursing nursing and ancillary staff involved in patient's care documentation, 36 minutes Charges/Coding Visit Charges Inpatient E&M: 94060 Subs Hosp L2
[2024-11-03] MEDS: Magnesium Chloride 64 MG Delay Rel.Tablet 128 MG PO ×2 (08:19→21:11)
[2024-11-03] MEDS: APIXABAN 5 MG TABLET PO ×2 (08:19→21:11)
[2024-11-03] MEDS: Azithromycin 500 MG in 0.9% Normal Saline (250mL Bag) 250 ML 255 MG IV (09:54)
[2024-11-03] MEDS: 0.9 % NaCl (Sterile) Posiflush 10 mL IV ×2 (10:00→15:04)
--- NOTE | 2024-11-03 10:28 | CASEMGMT ---
Addendum entered by Nina Holland 11/03/24 10:45: Social Work SW sent updates to [facility], and new referrals to [facility], [facility], [facility] and [facility]. SW will continue to follow. SOFYA Parada Original Note: Social Work SW called daughter again, once again the call went to [facility], message left. Pt's daughter did return call a short time later. SW explained that all but [facility] have declined pt as they have weight limits, and SW does not anticipate [facility] will take pt either. 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 This means we could send a referral to any facility. Daughter states understanding. We reviewed options, her next choices would be [facility], [facility], [facility] or [facility]. She would prefer [facility]. SW explained will send referrals and SW will follow up w/her on Tuesday. SARA will send referrals in [facility] shortly. SOFYA Parada
[2024-11-03] MEDS: Thiamine Hydrochloride 100 MG in 0.9% Normal Saline (50mL Bag) 50 ML 200 MG IV (11:00)
[2024-11-04] VITALS (18 sets, daily range): BP systolic 84–138; BP diastolic 53–110; PULSE 80–105; RESP 15–20; TEMP 35.9–36.6; O2SAT 94–100; BMI 77.8
[2024-11-04 06:03] LABS: Hematocrit 27.2 % (37-47); Hemoglobin 8.0 g/dL (12.0-15.0); Immature Granulocytes Count 0.030 X10^3/uL (0.0-0.0); Mean Corp Hgb Conc 29.4 g/dL (32-36); Mean Corpuscular Volume 86.6 fL (81-99); Mean Platelet Vol. 9.1 fl (6.2-12.0); NRBC Flagged by Analyzer 0.3 % (0-5); Platelet Count 124 K/mm3 (150-450); RBC Distribution Width CV 17.6 % (11.6-14.6); RBC Distribution Width SD 54.9 fl (35.1-43.9); Red Blood Count 3.14 M/mm3 (4.2-5.4); White Blood Count 7.9 K/mm3 (4.4-11.0)
[2024-11-04 06:41] LABS: Anion Gap 7 (5-15); BUN 18 mg/dL (4-19); BUN/Creat Ratio 17.8 RATIO (10-20); Calcium,Total 8.4 mg/dL (7.6-11.0); Carbon Dioxide 34.5 mmol/L (21.0-32.0); Chloride 104 mmol/L (98-108); Estimated Creatinine Clearance 79.53 ml/min (50-250); Glucose 194 mg/dL (70-99); Potassium 3.1 mmol/L (3.3-5.1)
--- NOTE | 2024-11-04 07:09 | PN.HOSP_ITS ---
Reason for Visit Chief Complaint: AMS Subjective Subjective Patient seen per nursing staff continues to have loose bowel movement. Stool for C. difficile did come back negative. Patient is hypokalemic with potassium of 3.1 hemoglobin did drop to 8.0. Patient blood glucose levels climbing up did initiate sliding scale coverage Objective Data Objective Data Vital Signs: Vital Signs Temp Pulse Resp BP Pulse Ox O2 Del Method O2 Flow Rate 97.7 F L 92 16 122/95 H 100 Bi-pap 4 11/04/24 05:00 11/04/24 07:00 11/04/24 07:00 11/04/24 07:00 11/04/24 07:00 11/04/24 07:00 11/03/24 20:00 FiO2 35 11/04/24 07:00 Oxygen Flow Rate (L/min) 4 Oxygen Delivery Method Bi-pap Weight: 199.3 kg Body Mass Index (BMI) 77.8 Intake & Output: Intake and Output for Last 24 Hours 11/02/24 11/03/24 11/04/24 23:59 23:59 23:59 Intake Total 1112.0833 / 1112.0833 1407.75 / 1407.75 Output Total 2850 / 2850 2200 / 2200 900 / 900 Balance -1737.9167 / -1737.9167 -792.25 / -792.25 -900 / -900 Lab / Micro Data 11/04/24 05:45 11/04/24 05:45 Labs: Laboratory Results - last 24 hr 11/03/24 07:47: POC Glucose 162 H 11/03/24 11:43: POC Glucose 216 H 11/03/24 16:36: POC Glucose 196 H 11/03/24 21:25: POC Glucose 192 H 11/04/24 05:45: WBC 7.9, RBC 3.14 L, Hgb 8.0 L, Hct 27.2 L, MCV 86.6, MCH 25.5 L , MCHC 29.4 L, RDW Std Deviation 54.9 H, RDW Coeff of Ryan 17.6 H, Plt Count 124 L, MPV 9.1, Immature Gran % (Auto) 0.400, Neut % (Auto) 72.1 H, Lymph % (Auto) 17.8 L, [place] % (Auto) 7.9, Eos % (Auto) 1.5, Baso % (Auto) 0.3, Absolute Neuts (auto) 5.7, Absolute Lymphs (auto) 1.41, Nucleated RBC % 0.3, Sodium 145, P otassium 3.1 L, Chloride 104, Carbon Dioxide 34.5 H, Anion Gap 7, BUN 18, Creatinine 0.99, Estim Creat Clear Calc 79.53, Est GFR (MDRD) Non-Af 58 L, BUN/Creatinine Ratio 17.8, Glucose 194 H, Calcium 8.4 Micro: Microbiology 10/29/24 15:29 Blood Culture (Wb) - Left Hand Blood Culture - Final No growth in 5 days. 10/29/24 15:40 Blood Culture (Wb) - Right Wrist Blood Culture - Final No growth in 5 days. 11/01/24 15:00 Stool Clostridioides difficile (PCR) - Final 10/29/24 15:17 Urine, Catheterized Urine Culture - Final Culture exhibits no growth. 10/30/24 05:48 Urine Catheter - Catheter Legionella Antigen - Final 10/30/24 05:48 Urine Catheter - Catheter Streptococcus pneumoniae Antigen (M - Final 10/30/24 00:10 Mucosa - Nasopharyngeal Coronavirus COVID-19 PCR - Final 10/30/24 00:10 Mucosa - Nasopharyngeal Respiratory Panel (PCR) - Final 10/29/24 15:40 Mucosa - Nose SARS-CoV-2, Influenza & RSV (PCR) - Final Physical Exam Narrative General: Patient appears fatigued HEENT: Atraumatic, normocephalic Eyes: Anicteric, normal conjunctiva, Neck: Supple Respiratory: Diminished to auscultation bilaterally Cardiovascular: Irregular S1-S2 GI: Soft, protuberant, did not appear in pain on palpation Extremities: bilateral lower extremity pitting edema Musculoskeletal: Moving all extremities in bed Neuro: No lateralizing sign Skin: Stasis dermatitis Psych: Flat affect Assessment & Plan Assessment/Plan (1) Acute metabolic encephalopathy due to hypoglycemia: PLAN: Plan Patient is an 78-year-old lady with multiple comorbidities including diabetes mellitus type 2Paroxysmal atrial fibrillation on Eliquis who presented to the emergency department with altered mental status. Patient was found to be hypothermic hypoglycemic with sinus bradycardia and assessment of acute metabolic encephalopathy made admitted to intensive care unit for further management 1. Acute metabolic encephalopathy ? Multifactorial including hypotension and hypoxic glycemia as well as suspected infectious etiology pneumonia versus UTI. Plan is to treat underlying clinical etiology ? 10/31/2024;much more coherent compared to the previous day however she also drifts into periods of hallucinations with she talks about someone trying to kill her daughter ? 11/01/2024; patient level of sensorium continues to improve but much more coherent and interactive ? 11/02/2024; patient level of sensorium continues to fluctuate ? 11/03/2024; patient level of sensorium improving plan is for patient to be transferred from the intensive care unit to [facility] care unit ? 11/04/2024; patient at baseline 2. Hypoglycemia ? Secondary to use of sulfonylurea held on admission placed on D10 with ith Accu-Cheks every 4 ordered ? 10/31/2024; patient blood glucose levels remain low however much improved compared to admitting level ? 11/01/2024; hypoglycemia resolved 3. Sinus bradycardia ? Thought to be secondary to patient being hypothermic. TSH obtained came back elevated. Patient is on levothyroxine plan is to adjust dose ? 11/03/2024; patient sinus bradycardia has resolved 4. Sepsis due to bacterial PNA with acute organ dysfunction of met encephalopathy hypoglycemia respiratory failure MAP < 70 and low platelets 5. Acute bacterial pneumonia ? Chest x-ray demonstrated left lower lobe infiltrate. Patient did not have elevated in the second however had a left shift given his presentation patient was started on ceftriaxone as well as azithromycin ? 10/31/2024; cultures of so far remain negative to date ? 11/03/2024; plan is to complete antibiotic therapy on 11/05/2026 6. Acute hypoxic and hypercapnic respiratory failure ? Patient was placed on noninvasive ventilation via BiPAP admitted to the intensive care unit box lining machine operator consulted ? 11/02/2022; patient had to be placed back on BiPAP given deteriorating respiratory status patient was transferred back to the intensive care unit ? 11/03/2022; consistent use of BiPAP encouraged when sleeping 7. Acute on chronic congestive heart failure with preserved ejection fraction ? Patient was found to have markedly elevated proBNP. Also had significant peripheral edema. Echo from 06/14/2024 demonstrated EF of 60% patient started on furosemide ? 10/31/2024; patient continues to diurese well and is in negative fluid balance 8. Hyperkalemia ? Corrected for protocol repeat BMP ordered for follow-up ? 11/04/2024 hyperkalemia resolved patient is now hypokalemic 9. Acute cystitis ? Patient was found to have pyuria as well as positive leukocyte esterase patient is on ceftriaxone we will follow-up on culture result ? 11/02/2024; urine cultures came back negative 10. Diabetes mellitus type 2 with complications including hypoglycemia ? Patient oral hypoglycemic agent held currently on Accu-Cheks every 4 hours ? 11/04/2024; patient presented with hypoglycemia which has since resolved subsequently started patient on sliding scale coverage 11. GERD ? On PPI 12. Class III obesity with BMI of 78.7 ? Complicating care 13. Obstructive sleep apnea ? Patient is on PAP therapy at night consistent use encouraged 14. Paroxysmal atrial fibrillation -rate controlled patient is on systemic anticoagulation with apixaban will continue 15. Hypothyroidism ? Patient is on levothyroxine dose adjusted given elevated TSH 16. Physical deconditioning ? Requested for PT OT eval and bilingual social worker to assist with discharge planning 17. DVT prophylaxis ? Patient is on apixaban 18. Diarrhea ? Patient was placed on enteric precautions 2 for C. difficile sent did institute fecal management system ? 11/02/2024; patient stool for C. difficile came back negative 19. Anemia ? Secondary to chronic disorder monitoring H&H and transfuse if patient becomes symptomatic or hemoglobin falls below 7 20. Hypophosphatemia ? Corrected per protocol 21. Hypomagnesia ? Magnesium replacement initiated 22. Extensive cutaneous candidiasis ? Patient receiving topical nystatin. Also being seen and evaluated by wound care nurse 23. Hypokalemia ? Corrected per protocol repeat labs ordered for a.m. Time spent in the patient's overall evaluation,decision-making process, review of diagnostic data, adjustment of management, discussion with other providers, nursing nursing and ancillary staff involved in patient's care documentation, 36 minutes Charges/Coding Visit Charges Inpatient E&M: 18318 Subs Hosp L2
[2024-11-04] MEDS: Potassium Chloride 10mEq/100mL 10 MEQ/100 ML IV.SOLN. 100 MEQ IV BOLUS ×4 (08:24→11:36)
[2024-11-04] MEDS: Azithromycin 500 MG in 0.9% Normal Saline (250mL Bag) 250 ML 255 MG IV (08:28)
[2024-11-04] MEDS: Magnesium Chloride 64 MG Delay Rel.Tablet 128 MG PO ×2 (08:35→20:19)
[2024-11-04] MEDS: APIXABAN 5 MG TABLET PO ×2 (08:36→20:19)
[2024-11-04] MEDS: 0.9% Normal Saline (250mL Bag) 250 ML 15 ML IV (09:07)
[2024-11-04] MEDS: 0.9 % NaCl (Sterile) Posiflush 10 mL IV ×2 (09:11→12:45)
[2024-11-04] MEDS: Thiamine Hydrochloride 100 MG in 0.9% Normal Saline (50mL Bag) 50 ML 200 MG IV (10:32)
[2024-11-04] MEDS: 0.9% Saline Lock 10 ML Syringe IV (14:42)
--- NOTE | 2024-11-04 15:52 | EKG12_ITS ---
Test Reason : ARRYTH Blood Pressure : */* mmHG Vent. Rate : 102 BPM Atrial Rate : * BPM P-R Int : * ms QRS Dur : 108 ms QT Int : 310 ms P-R-T Axes : * -9 21 degrees QTcB Int : 404 ms Atrial fibrillation with rapid ventricular response Low voltage QRS Nonspecific ST and T wave abnormality Abnormal ECG When compared with ECG of 29-Oct-2024 15:30, Atrial fibrillation has replaced Sinus rhythm Vent. rate has increased by 58 bpm Confirmed by LAUREN ROSS, MARISOL ([id number]), supervising editor trailer SHRUTI QUINTERO ([id number]) on 11/06/2024 6:09:17 AM Referred By: Confirmed By: MARISOL AGUILAR MD
[2024-11-04] MEDS: Potassium Chloride Oral Tablet 20 MEQ PO (17:59)
[2024-11-05] VITALS (10 sets, daily range): BP systolic 114–131; BP diastolic 47–68; PULSE 64–99; RESP 16–28; TEMP 35.8–36.9; O2SAT 92–100; BMI 77.3
[2024-11-05 06:00] LABS: Hematocrit 27.6 % (37-47); Hemoglobin 7.8 g/dL (12.0-15.0); Immature Granulocytes Count 0.040 X10^3/uL (0.0-0.0); Mean Corp Hgb Conc 28.3 g/dL (32-36); Mean Corpuscular Volume 88.7 fL (81-99); Mean Platelet Vol. 9.4 fl (6.2-12.0); NRBC Flagged by Analyzer 0 % (0-5); Platelet Count 148 K/mm3 (150-450); RBC Distribution Width CV 17.9 % (11.6-14.6); RBC Distribution Width SD 55.8 fl (35.1-43.9); Red Blood Count 3.11 M/mm3 (4.2-5.4); White Blood Count 8.7 K/mm3 (4.4-11.0)
[2024-11-05 06:14] LABS: Magnesium 1.4 mg/dL (1.5-2.2)
[2024-11-05 06:20] LABS: Anion Gap 6 (5-15); BUN 17 mg/dL (4-19); BUN/Creat Ratio 16.4 RATIO (10-20); Calcium,Total 8.3 mg/dL (7.6-11.0); Carbon Dioxide 37.9 mmol/L (21.0-32.0); Chloride 101 mmol/L (98-108); Estimated Creatinine Clearance 77.65 ml/min (50-250); Glucose 192 mg/dL (70-99); Potassium 4.2 mmol/L (3.3-5.1)
[2024-11-05] MEDS: Magnesium Sulfate 2 GM in Dextrose 5%-Water (100mL Bag) 100 ML IV (08:36)
[2024-11-05] MEDS: Magnesium Chloride 64 MG Delay Rel.Tablet 128 MG PO ×2 (08:48→22:42)
[2024-11-05] MEDS: Potassium Chloride Oral Tablet 20 MEQ PO ×2 (08:49→17:20)
--- NOTE | 2024-11-05 10:43 | PN.HOSP_ITS ---
Subjective Subjective She is struggling today, she is uncertain as to why she is here and we are struggling to find placement secondary to her BMI being 77 Objective Data Objective Data Vital Signs: Vital Signs Temp Pulse Resp BP Pulse Ox O2 Del Method O2 Flow Rate 98.4 F 81 16 114/58 L 100 Bi-pap 5 11/05/24 08:00 11/05/24 08:00 11/05/24 08:00 11/05/24 08:00 11/05/24 08:00 11/05/24 08:00 11/04/24 14:45 FiO2 30 11/05/24 08:00 Oxygen Flow Rate (L/min) 5 Oxygen Delivery Method Bi-pap Weight: 436 lb 15.299 oz Body Mass Index (BMI) 77.3 Intake & Output: Intake and Output for Last 24 Hours 11/04/24 11/05/24 11/06/24 03:59 03:59 03:59 Intake Total 1316 / 1316 1866.75 / 1866.75 100 / 100 Output Total 2200 / 2200 2800 / 2800 350 / 350 Balance -884 / -884 -933.25 / -933.25 -250 / -250 Lab / Micro Data 11/05/24 04:46 11/05/24 04:46 Labs: Laboratory Results - last 24 hr 11/04/24 11:27: POC Glucose 169 H 11/04/24 16:20: POC Glucose 206 H 11/04/24 22:21: POC Glucose 221 H 11/05/24 04:46: WBC 8.7, RBC 3.11 L, Hgb 7.8 L, Hct 27.6 L, MCV 88.7, MCH 25.1 L , MCHC 28.3 L, RDW Std Deviation 55.8 H, RDW Coeff of Ryan 17.9 H, Plt Count 148 L, MPV 9.4, Immature Gran % (Auto) 0.500, Neut % (Auto) 73.6 H, Lymph % (Auto) 16.7 L, [place] % (Auto) 6.6, Eos % (Auto) 2.3, Baso % (Auto) 0.3, Absolute Neuts (auto) 6.4, Absolute Lymphs (auto) 1.45, Nucleated RBC % 0, Sodium 145, Potassium 4.2, Chloride 101, Carbon Dioxide 37.9 H, Anion Gap 6, BUN 17, Creatinine 1.01, Estim Creat Clear Calc 77.65, Est GFR (MDRD) Non-Af 56 L, BUN/Creatinine Ratio 16.4, Glucose 192 H, Calcium 8.3, Phosphorus 2.3 L, M agnesium 1.4 L 11/05/24 06:39: POC Glucose 176 H 11/05/24 07:55: POC Glucose 180 H Micro: Microbiology 10/29/24 15:29 Blood Culture (Wb) - Left Hand Blood Culture - Final No growth in 5 days. 10/29/24 15:40 Blood Culture (Wb) - Right Wrist Blood Culture - Final No growth in 5 days. 11/01/24 15:00 Stool Clostridioides difficile (PCR) - Final 10/29/24 15:17 Urine, Catheterized Urine Culture - Final Culture exhibits no growth. 10/30/24 05:48 Urine Catheter - Catheter Legionella Antigen - Final 10/30/24 05:48 Urine Catheter - Catheter Streptococcus pneumoniae Antigen (M - Final 10/30/24 00:10 Mucosa - Nasopharyngeal Coronavirus COVID-19 PCR - Final 10/30/24 00:10 Mucosa - Nasopharyngeal Respiratory Panel (PCR) - Final 10/29/24 15:40 Mucosa - Nose SARS-CoV-2, Influenza & RSV (PCR) - Final Physical Exam Narrative General: Alert, Oriented x3, Cooperative, No apparent distress, super morbidly obese HEENT: Atraumatic, PERRLA, EOMI, Normocephalic Oral: Moist Mucosa Neck: Supple, No JVD Lungs: Diminished, Normal air movement, No rhonchi, No wheeze, No rales Cardiovascular: Regular rate, Regular Rhythm, Normal S1, Normal S2, No murmurs, heart sounds difficult due to body habitus Abdomen: Soft, Non Tender, Non-Distended, No Hepato-splenomegaly Extremities: Edema, Capillary Refill Less than 3 Seconds Skin: Skin tear on her right elbow Musculoskeletal: No Tenderness to Palpation of Joints or Extremities Neurological: No focal neurological deficits, moves all extremities Psych/Mental Status: Flat Assessment & Plan Assessment/Plan (1) Acute metabolic encephalopathy due to hypoglycemia: PLAN: Plan 1. Acute metabolic encephalopathy secondary to sepsis from pneumonia with acute hypoxic and hypercapnic respiratory failure/debility/JAYA ? Altered mental status has resolved ? Continue with Rocephin with her last dose today, no culture data available to guide treatment, Legionella and strep antigens are negative ? PT/OT ? Consult case management for discharge planning ? Sepsis has resolved ? Her respiratory failure has also resolved, she is maintaining oxygen saturations on nasal cannula with as needed BiPAP secondary to obstructive sleep apnea and body habitus ? There is a thought that she could have a UTI however cultures were negative likely due to the fact that she was already on antibiotics 2. Acute on chronic diastolic CHF/essential HTN/HLD/paroxysmal A-fib ? Echo in June 2024 with an EF of 60% ? Continue with Lasix 40 mg IV 3 times daily ? Continue with metoprolol will monitor her blood pressures and make adjustments as necessary ? Continue with Eliquis 3. DM2/super morbid obesity ? Accu-Cheks ? Sliding scale insulin ? Will monitor make adjustments as necessary ? Will hold her oral medications ? BMI of 77 4. Hypothyroidism ? Stable ? Continue with Synthroid 5. GERD ? Continue with PPI ? Stable 6. Anemia ? Unclear as to the etiology, iron studies are pending and will also obtain stool occult 7. Candidiasis ? Continue with topical nystatin DVT: Eliquis Charges/Coding Visit Charges Inpatient E&M: 90636 Subs Hosp L2
[2024-11-05] MEDS: Thiamine Hydrochloride 100 MG in 0.9% Normal Saline (50mL Bag) 50 ML 200 MG IV (11:00)
[2024-11-05] MEDS: APIXABAN 5 MG TABLET PO ×2 (12:02→22:42)
--- NOTE | 2024-11-05 12:11 | CASEMGMT ---
Discharge Planning Referrals were sent to [facility], [facility], [facility], [facility], [facility], [facility], [facility], and [facility]. [facility], [facility], [facility], and [facility] all declined. [facility] and [facility] accepted. No response was rec'd from [facility] and [facility]. Per , pts daughter wishes to proceed with [facility]. will submit for LOC. [facility] updated. [facility], [facility], and [facility] asked to cancel referral. Arabella Bertrand DC Planning Asst.
--- NOTE | 2024-11-05 12:31 | CASEMGMT ---
Advanced Directives- SW spoke with pt dtr Jazmin who reports to be HCPOA. Documents requested for scan into chart. YAMILET Sims
--- NOTE | 2024-11-05 13:39 | CASEMGMT ---
Social Work SW received a call from Radha Valdovinos, pt's [facility] G. SW updated her that pt will be going to [facility]. SW on PCU updated to let Radha know when pt is d/c to [facility]. SOFYA Parada
[2024-11-05 13:46] LABS: Hematocrit 25.1 % (37-47); Hemoglobin 7.5 g/dL (12.0-15.0)
[2024-11-05] MEDS: 0.9% Saline Lock 10 ML Syringe IV (13:53)
[2024-11-05 14:52] LABS: Iron 47 ug/dL (50-170); Iron Binding Capacity,Unsat 143 ug/dL (228-428)
[2024-11-05 15:37] LABS: Iron Binding Capacity,Total 190 ug/dL (250-450)
[2024-11-05] MEDS: 0.9 % NaCl (Sterile) Posiflush 10 mL IV ×2 (22:43→23:48)
[2024-11-06] VITALS (12 sets, daily range): BP systolic 93–121; BP diastolic 46–54; PULSE 77–108; RESP 16–20; TEMP 36.3–36.5; O2SAT 92–100; BMI 77.3
[2024-11-06 06:02] LABS: Hematocrit 26.9 % (37-47); Hemoglobin 7.9 g/dL (12.0-15.0); Immature Granulocytes Count 0.030 X10^3/uL (0.0-0.0); Mean Corp Hgb Conc 29.4 g/dL (32-36); Mean Corpuscular Volume 87.3 fL (81-99); Mean Platelet Vol. 9.3 fl (6.2-12.0); NRBC Flagged by Analyzer 0 % (0-5); Platelet Count 133 K/mm3 (150-450); RBC Distribution Width CV 18.5 % (11.6-14.6); RBC Distribution Width SD 57.0 fl (35.1-43.9); Red Blood Count 3.08 M/mm3 (4.2-5.4); White Blood Count 8.8 K/mm3 (4.4-11.0)
[2024-11-06] MEDS: 0.9 % NaCl (Sterile) Posiflush 10 mL IV (06:05)
[2024-11-06 06:35] LABS: Anion Gap 6 (5-15); BUN 16 mg/dL (4-19); BUN/Creat Ratio 16.2 RATIO (10-20); Calcium,Total 8.3 mg/dL (7.6-11.0); Carbon Dioxide 38.8 mmol/L (21.0-32.0); Chloride 99 mmol/L (98-108); Estimated Creatinine Clearance 80.03 ml/min (50-250); Glucose 206 mg/dL (70-99); Potassium 3.6 mmol/L (3.3-5.1)
[2024-11-06] MEDS: Magnesium Chloride 64 MG Delay Rel.Tablet 128 MG PO ×2 (08:40→20:37)
[2024-11-06] MEDS: Potassium Chloride Oral Tablet 20 MEQ PO ×2 (08:41→18:00)
[2024-11-06] MEDS: APIXABAN 5 MG TABLET PO ×2 (08:41→20:37)
--- NOTE | 2024-11-06 10:41 | PCM.PN.HOSP ---
Subjective Subjective Respiratory status deteriorated overnight she is currently on 12 L nasal cannula Objective Data Objective Data Vital Signs: Vital Signs Temp Pulse Resp BP Pulse Ox O2 Del Method O2 Flow Rate 97.7 F L 89 17 93/50 L 92 Nasal Cannula 12 11/06/24 08:33 11/06/24 08:33 11/06/24 08:33 11/06/24 08:33 11/06/24 08:33 11/06/24 09:00 11/06/24 09:00 FiO2 35 11/06/24 04:45 Oxygen Flow Rate (L/min) 12 Oxygen Delivery Method Nasal Cannula Weight: 436 lb 15.299 oz Body Mass Index (BMI) 77.3 Intake & Output: Intake and Output for Last 24 Hours 11/05/24 11/06/24 11/07/24 03:59 03:59 03:59 Intake Total 1866.75 / 1866.75 1000 / 1000 100 / 100 Output Total 2800 / 2800 2100 / 2100 600 / 600 Balance -933.25 / -933.25 -1100 / -1100 -500 / -500 Lab / Micro Data 11/06/24 05:43 11/06/24 05:43 Labs: Laboratory Results - last 24 hr 11/05/24 04:46: Iron 47 L, TIBC 190 L, Iron Saturation 24.7, Unsaturated IBC 143 L 11/05/24 11:59: POC Glucose 231 H 11/05/24 13:34: Hgb 7.5 L, Hct 25.1 L 11/05/24 17:14: POC Glucose 178 H 11/05/24 22:39: POC Glucose 226 H 11/06/24 05:43: WBC 8.8, RBC 3.08 L, Hgb 7.9 L, Hct 26.9 L, MCV 87.3, MCH 25.6 L, MCHC 29.4 L, RDW Std Deviation 57.0 H, RDW Coeff of Ryan 18.5 H, Plt Count 133 L, MPV 9.3, Immature Gran % (Auto) 0.300, Neut % (Auto) 70.8 H, Lymph % (Auto) 19.1, [place] % (Auto) 7.6, Eos % (Auto) 2.0, Baso % (Auto) 0.2, Absolute Neuts (auto) 6.2, Absolute Lymphs (auto) 1.69, Nucleated RBC % 0, Sodium 144, Potassium 3.6, Chloride 99, Carbon Dioxide 38.8 H, Anion Gap 6, BUN 16, Creatinine 0.98, Estim Creat Clear Calc 80.03, Est GFR (MDRD) Non-Af 59 L, BUN/Creatinine Ratio 16.2, Glucose 206 H, Calcium 8.3 11/06/24 06:02: POC Glucose 191 H Micro: Microbiology 11/06/24 09:50 Stool Stool Occult Blood (EDEN) - Final Occult Blood Positive 10/29/24 15:29 Blood Culture (Wb) - Left Hand Blood Culture - Final No growth in 5 days. 10/29/24 15:40 Blood Culture (Wb) - Right Wrist Blood Culture - Final No growth in 5 days. 11/01/24 15:00 Stool Clostridioides difficile (PCR) - Final 10/29/24 15:17 Urine, Catheterized Urine Culture - Final Culture exhibits no growth. 10/30/24 05:48 Urine Catheter - Catheter Legionella Antigen - Final 10/30/24 05:48 Urine Catheter - Catheter Streptococcus pneumoniae Antigen (M - Final 10/30/24 00:10 Mucosa - Nasopharyngeal Coronavirus COVID-19 PCR - Final 10/30/24 00:10 Mucosa - Nasopharyngeal Respiratory Panel (PCR) - Final 10/29/24 15:40 Mucosa - Nose SARS-CoV-2, Influenza & RSV (PCR) - Final Physical Exam Narrative General: Alert, Oriented x3, Cooperative, No apparent distress, super morbidly obese HEENT: Atraumatic, PERRLA, EOMI, Normocephalic Oral: Moist Mucosa Neck: Supple, No JVD Lungs: Diminished, Normal air movement, No rhonchi, No wheeze, No rales Cardiovascular: Regular rate, Regular Rhythm, Normal S1, Normal S2, No murmurs, heart sounds difficult due to body habitus Abdomen: Soft, Non Tender, Non-Distended, No Hepato-splenomegaly Extremities: Edema, Capillary Refill Less than 3 Seconds Skin: Skin tear on her right elbow Musculoskeletal: No Tenderness to Palpation of Joints or Extremities Neurological: No focal neurological deficits, moves all extremities Psych/Mental Status: Flat Assessment & Plan Assessment/Plan (1) Acute metabolic encephalopathy due to hypoglycemia: PLAN: Plan 1. Acute metabolic encephalopathy secondary to sepsis from pneumonia with acute hypoxic and hypercapnic respiratory failure/debility/JAYA ? Altered mental status has resolved ? Continue with Rocephin with her last dose today, no culture data available to guide treatment, Legionella and strep antigens are negative ? PT/OT ? Consult case management for discharge planning ? Sepsis has resolved ? Her respiratory failure has also resolved, she is maintaining oxygen saturations on nasal cannula with as needed BiPAP secondary to obstructive sleep apnea and body habitus ? There is a thought that she could have a UTI however cultures were negative likely due to the fact that she was already on antibiotics 2. Acute on chronic diastolic CHF/essential HTN/HLD/paroxysmal A-fib ? Echo in June 2024 with an EF of 60% ? Given her increased oxygen requirements we will repeat chest x-ray today and transition her to a Lasix drip, she is -7 L though it is unclear how accurate this is. Will place her on a fluid restriction as well ? Continue with metoprolol will monitor her blood pressures and make adjustments as necessary ? Continue with Eliquis 3. DM2/super morbid obesity ? Accu-Cheks ? Sliding scale insulin ? Will monitor make adjustments as necessary ? Will hold her oral medications ? BMI of 77 4. Hypothyroidism ? Stable ? Continue with Synthroid 5. GERD ? Continue with PPI ? Stable 6. Anemia ? Unclear as to the etiology ? Fecal occult is pending, iron studies were unremarkable 7. Candidiasis ? Continue with topical nystatin DVT: Eliquis Charges/Coding Visit Charges Inpatient E&M: 35198 Subs Hosp L2
[2024-11-06] MEDS: 0.9% Saline Lock 10 ML Syringe IV ×2 (10:50→14:41)
[2024-11-06] MEDS: Thiamine Hydrochloride 100 MG in 0.9% Normal Saline (50mL Bag) 50 ML 200 MG IV (10:50)
--- NOTE | 2024-11-06 12:32 | RAD_ITS ---
PROCEDURE: CHEST 1 VIEW (PORTABLE) 11/06/2024 REASON FOR EXAM: INCREASED oxygen REQUIREMENTS TECHNIQUE: Frontal view of the chest. COMPARISON: Prior study dated October 29, 2024. FINDINGS: Hardware: EKG electrodes are seen. Heart: Moderate-size cardiomegaly. Lungs: Vascular congestion and CHF. Findings suggestive of atelectasis and/or infiltrate in the left lower lobe. This has progressed as compared to prior study. Bones: Degenerative changes are identified within the thoracic spine. Other: RAD/Chest 1 View (Portable) IMPRESSION: Moderate cardiomegaly. Vascular congestion and CHF. Findings suggestive of atelectasis and/or infiltrate in the left lower lobe. T his has progressed as compared to prior study. Reading Location: [id number]
[2024-11-06] MEDS: Furosemide 500 MG in Empty Viaflex 50 mL 1 EACH CONT INF (14:41)
[2024-11-07] VITALS (11 sets, daily range): BP systolic 98–118; BP diastolic 47–94; PULSE 69–110; RESP 16–20; TEMP 36.3–36.8; O2SAT 90–100; BMI 77.2
[2024-11-07 05:38] LABS: Hematocrit 26.1 % (37-47); Hemoglobin 7.7 g/dL (12.0-15.0); Immature Granulocytes Count 0.030 X10^3/uL (0.0-0.0); Mean Corp Hgb Conc 29.5 g/dL (32-36); Mean Corpuscular Volume 88.2 fL (81-99); Mean Platelet Vol. 8.9 fl (6.2-12.0); NRBC Flagged by Analyzer 0 % (0-5); Platelet Count 132 K/mm3 (150-450); RBC Distribution Width CV 18.6 % (11.6-14.6); RBC Distribution Width SD 57.9 fl (35.1-43.9); Red Blood Count 2.96 M/mm3 (4.2-5.4); White Blood Count 9.2 K/mm3 (4.4-11.0)
[2024-11-07 06:19] LABS: Anion Gap 8 (5-15); BUN 17 mg/dL (4-19); BUN/Creat Ratio 17.3 RATIO (10-20); Calcium,Total 8.5 mg/dL (7.6-11.0); Carbon Dioxide 39.7 mmol/L (21.0-32.0); Chloride 97 mmol/L (98-108); Estimated Creatinine Clearance 79.88 ml/min (50-250); Glucose 190 mg/dL (70-99); Magnesium 1.4 mg/dL (1.5-2.2); Potassium 3.1 mmol/L (3.3-5.1)
[2024-11-07 08:08] LABS: Prothrombin Time (Protime)PT. 41.2 SECONDS (11.7-14.9)
[2024-11-07] MEDS: Magnesium Sulfate 4gm/100mL 4 GM/100 ML IV.SOLN. IV (08:24)
[2024-11-07] MEDS: Thiamine Hydrochloride 100 MG in 0.9% Normal Saline (50mL Bag) 50 ML 200 MG IV (08:33)
[2024-11-07] MEDS: Magnesium Chloride 64 MG Delay Rel.Tablet 128 MG PO ×2 (08:40→21:22)
[2024-11-07] MEDS: APIXABAN 5 MG TABLET PO (08:40)
[2024-11-07] MEDS: Potassium Chloride Oral Tablet 20 MEQ PO ×2 (08:42→16:29)
[2024-11-07] MEDS: Potassium Phosphate 21 MM in 0.9% Normal Saline (250mL Bag) 250 ML 84 MM IV (09:03)
--- NOTE | 2024-11-07 10:48 | PCM.PN.HOSP ---
Subjective Subjective Not very interactive today, oxygen requirements have gone down slightly. Fecal occult did come back positive however given her body habitus and her risk with anesthesia she is not a candidate for scope therefore will transfuse given her history of heart failure Objective Data Objective Data Vital Signs: Vital Signs Temp Pulse Resp BP Pulse Ox O2 Del Method O2 Flow Rate 97.5 F L 107 H 20 H 108/49 L 98 Nasal Cannula 10 11/07/24 08:00 11/07/24 08:00 11/07/24 08:00 11/07/24 08:00 11/07/24 08:00 11/07/24 08:00 11/06/24 20:30 FiO2 35 11/07/24 07:30 Oxygen Flow Rate (L/min) 10 Oxygen Delivery Method Nasal Cannula Weight: 435 lb 13.662 oz Body Mass Index (BMI) 77.2 Intake & Output: Intake and Output for Last 24 Hours 11/06/24 11/07/24 11/08/24 03:59 03:59 03:59 Intake Total 1000 / 1000 1241 / 1241 Output Total 2100 / 2100 3250 / 3250 1000 / 1000 Balance -1100 / -1100 -2008 / -2009 -1000 / -1000 Lab / Micro Data 11/07/24 05:25 11/07/24 05:25 Labs: Laboratory Results - last 24 hr 11/05/24 13:30: Blood Type O POSITIVE, Antibody Screen NEGATIVE, Crossmatch See Detail 11/06/24 12:14: POC Glucose 228 H 11/06/24 17:58: POC Glucose 213 H 11/06/24 21:57: POC Glucose 237 H 11/07/24 05:25: WBC 9.2, RBC 2.96 L, Hgb 7.7 L, Hct 26.1 L, MCV 88.2, MCH 26.0 L, MCHC 29.5 L, RDW Std Deviation 57.9 H, RDW Coeff of Ryan 18.6 H, Plt Count 132 L, MPV 8.9, Immature Gran % (Auto) 0.300, Neut % (Auto) 74.4 H, Lymph % (Auto) 16.9 L, Sunflower % (Auto) 6.5, Eos % (Auto) 1.7, Baso % (Auto) 0.2, Absolute Neuts (auto) 6.8, Absolute Lymphs (auto) 1.55, Nucleated RBC % 0, Sodium 144, Potassium 3.1 L, Chloride 97 L, Carbon Dioxide 39.7 H, Anion Gap 8, BUN 17, Creatinine 0.98, Estim Creat Clear Calc 79.88, Est GFR (MDRD) Non-Af 59 L, BUN/Creatinine Ratio 17.3, Glucose 190 H, Calcium 8.5, Phosphorus 2.4 L, Magnesium 1.4 L 11/07/24 06:07: POC Glucose 186 H 11/07/24 07:35: PT 41.2 H, INR 4.2 H* Micro: Microbiology 11/06/24 09:50 Stool Stool Occult Blood ([facility]EN) - Final Occult Blood Positive 10/29/24 15:29 Blood Culture (Wb) - Left Hand Blood Culture - Final No growth in 5 days. 10/29/24 15:40 Blood Culture (Wb) - Right Wrist Blood Culture - Final No growth in 5 days. 11/01/24 15:00 Stool Clostridioides difficile (PCR) - Final 10/29/24 15:17 Urine, Catheterized Urine Culture - Final Culture exhibits no growth. 10/30/24 05:48 Urine Catheter - Catheter Legionella Antigen - Final 10/30/24 05:48 Urine Catheter - Catheter Streptococcus pneumoniae Antigen (M - Final 10/30/24 00:10 Mucosa - Nasopharyngeal Coronavirus COVID-19 PCR - Final 10/30/24 00:10 Mucosa - Nasopharyngeal Respiratory Panel (PCR) - Final 10/29/24 15:40 Mucosa - Nose SARS-CoV-2, Influenza & RSV (PCR) - Final Radiography Diagnostic Testing: Radiology Impression Chest X-Ray 11/06/24 12:32 IMPRESSION: Moderate cardiomegaly. Vascular congestion and CHF. Findings suggestive of atelectasis and/or infiltrate in the left lower lobe. This has progressed as compared to prior study. Reading Location: [facility] Physical Exam Narrative General: Alert, Oriented x3, Cooperative, No apparent distress, super morbidly obese HEENT: Atraumatic, PERRLA, EOMI, Normocephalic Oral: Moist Mucosa Neck: Supple, No JVD Lungs: Diminished, Normal air movement, No rhonchi, No wheeze, No rales Cardiovascular: Regular rate, Regular Rhythm, Normal S1, Normal S2, No murmurs, heart sounds difficult due to body habitus Abdomen: Soft, Non Tender, Non-Distended, No Hepato-splenomegaly Extremities: Edema, Capillary Refill Less than 3 Seconds Skin: Skin tear on her right elbow Musculoskeletal: No Tenderness to Palpation of Joints or Extremities Neurological: No focal neurological deficits, moves all extremities Psych/Mental Status: Flat Assessment & Plan Assessment/Plan (1) Acute metabolic encephalopathy due to hypoglycemia: PLAN: Plan 1. Acute metabolic encephalopathy secondary to sepsis from pneumonia with acute hypoxic and hypercapnic respiratory failure/debility/JAYA ? Continue with Rocephin with her last dose today, no culture data available to guide treatment, Legionella and strep antigens are negative ? PT/OT ? Consult case management for discharge planning ? Sepsis has resolved ?She is having increased oxygen requirements, with increased BiPAP usage. ? Repeat chest x-ray indicates an increased vascular congestion and signs of CHF ? There is a thought that she could have a UTI however cultures were negative likely due to the fact that she was already on antibiotics 2. Acute on chronic diastolic CHF/essential HTN/HLD/paroxysmal A-fib ? Echo in June 2024 with an EF of 60% ?Continue with a Lasix drip, she is -7 L though it is unclear how accurate this is. Will place her on a fluid restriction as well ? Continue with metoprolol will monitor her blood pressures and make adjustments as necessary ?Will hold her Eliquis secondary to her positive fecal occult 3. DM2/super morbid obesity ? Accu-Cheks ? Sliding scale insulin ? Will monitor make adjustments as necessary ? Will hold her oral medications ? BMI of 77 4. Hypothyroidism ? Stable ? Continue with Synthroid 5. GERD ? Continue with PPI ? Stable 6. Acute blood loss anemia ? Unclear as to the etiology ?Iron studies were unremarkable, fecal occult is positive ? Will transfuse 1 unit PRBCs hopefully this might increase her oxygen carrying capacity and decrease her oxygen requirements ? Unfortunately given her body habitus and the risks from anesthesia she is not a great candidate for either colonoscopy or an EGD 7. Candidiasis ? Continue with topical nystatin 8. Hypomagnesemia and hypophosphatemia with hypokalemia ? Replacing all will recheck a morning DVT: Eliquis Charges/Coding Visit Charges Inpatient E&M: 20445 Subs Hosp L2
--- NOTE | 2024-11-07 12:02 | CASEMGMT ---
Discharge Planning Updates sent Heriberto Alvarado. Arabella Bertrand DC Planning Asst.
[2024-11-07] MEDS: Furosemide 500 MG in Empty Viaflex 50 mL 1 EACH CONT INF (18:09)
[2024-11-08] VITALS (10 sets, daily range): BP systolic 107–122; BP diastolic 47–71; PULSE 85–97; RESP 16–24; TEMP 36.4–36.8; O2SAT 94–95; BMI 74.7
[2024-11-08] MEDS: 0.9 % NaCl (Sterile) Posiflush 10 mL IV (06:18)
[2024-11-08 06:35] LABS: Hematocrit 28.3 % (37-47); Hemoglobin 8.6 g/dL (12.0-15.0); Immature Granulocytes Count 0.020 X10^3/uL (0.0-0.0); Mean Corp Hgb Conc 30.4 g/dL (32-36); Mean Corpuscular Volume 87.3 fL (81-99); Mean Platelet Vol. 8.9 fl (6.2-12.0); NRBC Flagged by Analyzer 0 % (0-5); Platelet Count 133 K/mm3 (150-450); RBC Distribution Width CV 18.5 % (11.6-14.6); RBC Distribution Width SD 55.6 fl (35.1-43.9); Red Blood Count 3.24 M/mm3 (4.2-5.4); White Blood Count 8.6 K/mm3 (4.4-11.0)
[2024-11-08 07:35] LABS: Anion Gap 10 (5-15); BUN 16 mg/dL (4-19); BUN/Creat Ratio 15.2 RATIO (10-20); Calcium,Total 8.4 mg/dL (7.6-11.0); Carbon Dioxide 40.8 mmol/L (21.0-32.0); Chloride 94 mmol/L (98-108); Estimated Creatinine Clearance 72.80 ml/min (50-250); Glucose 200 mg/dL (70-99); Magnesium 1.6 mg/dL (1.5-2.2); Potassium 3.2 mmol/L (3.3-5.1)
[2024-11-08] MEDS: Potassium Chloride Oral Tablet 20 MEQ PO ×2 (08:55→17:08)
[2024-11-08] MEDS: Magnesium Chloride 64 MG Delay Rel.Tablet 128 MG PO ×2 (08:55→22:22)
--- NOTE | 2024-11-08 09:09 | PN.HOSP_ITS ---
Subjective Subjective More alert this morning on BiPAP. Objective Data Objective Data Vital Signs: Vital Signs Temp Pulse Resp BP Pulse Ox O2 Del Method O2 Flow Rate 98 F 95 20 H 107/69 94 Bi-pap 7 11/08/24 08:48 11/08/24 08:48 11/08/24 08:48 11/08/24 08:48 11/08/24 08:48 11/08/24 08:48 11/07/24 14:40 FiO2 35 11/08/24 07:43 Oxygen Flow Rate (L/min) 7 Oxygen Delivery Method Bi-pap Weight: 421 lb 8.381 oz Body Mass Index (BMI) 74.7 Intake & Output: Intake and Output for Last 24 Hours 11/07/24 11/08/24 11/09/24 03:59 03:59 03:59 Intake Total 1241 / 1241 985.47 / 985.47 Output Total 3250 / 3250 3850 / 3850 1000 / 1000 Balance -2009 / -2009 -2864.53 / -2864.53 -1000 / -1000 Lab / Micro Data 11/08/24 06:28 11/08/24 06:28 Labs: Laboratory Results - last 24 hr 11/05/24 13:30: Blood Type O POSITIVE, Antibody Screen NEGATIVE, Crossmatch See Detail 11/07/24 11:24: POC Glucose 182 H 11/07/24 16:21: POC Glucose 193 H 11/07/24 21:20: POC Glucose 215 H 11/08/24 06:17: POC Glucose 188 H 11/08/24 06:28: WBC 8.6, RBC 3.24 L, Hgb 8.6 L, Hct 28.3 L, MCV 87.3, MCH 26.5 L , MCHC 30.4 L, RDW Std Deviation 55.6 H, RDW Coeff of Ryan 18.5 H, Plt Count 133 L, MPV 8.9, Immature Gran % (Auto) 0.200, Neut % (Auto) 72.6 H, Lymph % (Auto) 16.8 L, Boyd % (Auto) 7.9, Eos % (Auto) 2.2, Baso % (Auto) 0.3, Absolute Neuts (auto) 6.2, Absolute Lymphs (auto) 1.44, Nucleated RBC % 0, Sodium 144, P otassium 3.2 L, Chloride 94 L, Carbon Dioxide 40.8 H, Anion Gap 10, BUN 16, Creatinine 1.05, Estim Creat Clear Calc 72.80, Est GFR (MDRD) Non-Af 54 L, BUN/Creatinine Ratio 15.2, Glucose 200 H, Calcium 8.4, Phosphorus 2.5 L, Magnesium 1.6 Micro: Microbiology 11/06/24 09:50 Stool Stool Occult Blood (EDEN) - Final Occult Blood Positive 10/29/24 15:29 Blood Culture (Wb) - Left Hand Blood Culture - Final No growth in 5 days. 10/29/24 15:40 Blood Culture (Wb) - Right Wrist Blood Culture - Final No growth in 5 days. 11/01/24 15:00 Stool Clostridioides difficile (PCR) - Final 10/29/24 15:17 Urine, Catheterized Urine Culture - Final Culture exhibits no growth. 10/30/24 05:48 Urine Catheter - Catheter Legionella Antigen - Final 10/30/24 05:48 Urine Catheter - Catheter Streptococcus pneumoniae Antigen (M - Final 10/30/24 00:10 Mucosa - Nasopharyngeal Coronavirus COVID-19 PCR - Final 10/30/24 00:10 Mucosa - Nasopharyngeal Respiratory Panel (PCR) - Final 10/29/24 15:40 Mucosa - Nose SARS-CoV-2, Influenza & RSV (PCR) - Final Physical Exam Narrative General: Alert, Oriented x3, Cooperative, No apparent distress, super morbidly obese HEENT: Atraumatic, PERRLA, EOMI, Normocephalic Oral: Moist Mucosa Neck: Supple, No JVD Lungs: Diminished, Normal air movement, No rhonchi, No wheeze, No rales Cardiovascular: Regular rate, Regular Rhythm, Normal S1, Normal S2, No murmurs, heart sounds difficult due to body habitus Abdomen: Soft, Non Tender, Non-Distended, No Hepato-splenomegaly Extremities: Edema, Capillary Refill Less than 3 Seconds Skin: Skin tear on her right elbow, with multiple areas of ecchymosis and bruising Musculoskeletal: No Tenderness to Palpation of Joints or Extremities Neurological: No focal neurological deficits, moves all extremities Psych/Mental Status: Flat Assessment & Plan Assessment/Plan (1) Acute metabolic encephalopathy due to hypoglycemia: PLAN: Plan 1. Acute metabolic encephalopathy secondary to sepsis from pneumonia with acute hypoxic and hypercapnic respiratory failure/debility/JAYA ? PT/OT ? Consult case management for discharge planning ? Sepsis has resolved ?She is having increased oxygen requirements, with increased BiPAP usage. ? Repeat chest x-ray indicates an increased vascular congestion and signs of CHF ? There is a thought that she could have a UTI however cultures were negative likely due to the fact that she was already on antibiotics 2. Acute on chronic diastolic CHF/essential HTN/HLD/paroxysmal A-fib ? Echo in June 2024 with an EF of 60% ?Continue with a Lasix drip, she is -7 L though it is unclear how accurate this is. Will place her on a fluid restriction as well, she is negative a total of over 12 L fluid, will monitor creatinine and bicarb ? Continue with metoprolol will monitor her blood pressures and make adjustments as necessary ?Will hold her Eliquis secondary to her positive fecal occult 3. DM2/super morbid obesity ? Accu-Cheks ? Sliding scale insulin ? Will monitor make adjustments as necessary ? Will hold her oral medications ? BMI of 77 4. Hypothyroidism ? Stable ? Continue with Synthroid 5. GERD ? Continue with PPI ? Stable 6. Acute blood loss anemia ? Unclear as to the etiology ?Iron studies were unremarkable, fecal occult is positive ? Hemoglobin corrected 8 6, will recheck in the morning ? Unfortunately given her body habitus and the risks from anesthesia she is not a great candidate for either colonoscopy or an EGD 7. Candidiasis ? Continue with topical nystatin 8. Hypomagnesemia and hypophosphatemia with hypokalemia ? Replacing all DVT: Eliquis Charges/Coding Visit Charges Inpatient E&M: 59123 Subs Hosp L2
[2024-11-08] MEDS: Thiamine Hydrochloride 100 MG in 0.9% Normal Saline (50mL Bag) 50 ML 200 MG IV (10:48)
[2024-11-08] MEDS: Potassium Phosphate 21 MM in 0.9% Normal Saline (250mL Bag) 250 ML 84 MM IV (11:02)
[2024-11-08] MEDS: Magnesium Sulfate 2 GM in Dextrose 5%-Water (100mL Bag) 100 ML IV (11:43)
--- NOTE | 2024-11-08 13:08 | CASEMGMT ---
Addendum entered by Natalia Lin 11/08/24 13:35: Inpatient Palliative UTILIZATION REVIEW NURSE notified Original Note: RN MARIA G received verbal order for inpatient palliative consult. BE CUMMINS made referral to Inpatient Palliative.
--- NOTE | 2024-11-08 13:43 | CON.PCM.PA_ITS ---
[facility] Medical History Atrial fibrillation Cutaneous candidiasis Failure to thrive Bradycardia Chronic anticoagulation History of diabetes mellitus Unable to ambulate Adult failure to thrive Anxiety Depression Hyperthyroidism Diabetes Non-smoker BiPAP (biphasic positive airway pressure) dependence On home oxygen therapy Congestive heart failure (CHF) Chest pain Hypertension Migraines Contusion of right great toe without damage to nail, initial encounter CHF (congestive heart failure) CKD (chronic kidney disease), stage III Acute hypoxic respiratory failure Hypothyroidism Allergic rhinitis GERD (gastroesophageal reflux disease) Obstructive sleep apnea Hyperlipidemia Hypertension Type 2 diabetes mellitus Morbid obesity Home Medications ?Medication ?Instructions ?Recorded ?Last Taken ?Type atorvastatin 20 mg tablet 20 mg PO QHS cholesterol 03/3005/11/16 22:00 History hydrocortisone 2.5 % topical cream 1 applicatio topica l BID rash 05/12/16 Unknown History metoprolol tartrate 50 mg tablet 25 mg PO BID blood pr essure 05/12/16 05/12/16 08:00 History nystatin 100,000 unit/gram topical 1 applic topical BI D yeast 05/14/16 Unknown Rx powder ([facility]) docusate sodium 100 mg capsule 100 mg PO DAILY stool s oftner 06/16/24 Unknown History pantoprazole 40 mg tablet,delayed 40 mg PO DAILY reflu x 06/16/24 Unknown History release ergocalciferol (vitamin D2) 1,250 1,250 mcg PO QWEEK v itamin 10/18/24 Unknown History mcg (50,000 unit) capsule escitalopram oxalate 10 mg tablet 10 mg PO QHS mental health 10/18/24 Unknown History glipizide 10 mg tablet 10 mg PO BID diabetes Unknown History hydroxyzine pamoate 25 mg capsule 25 mg PO DAILY PRN i tching 10/18/24 Unknown History levothyroxine 112 mcg tablet 112 mcg PO DAILY thyroid 10/18/24 Unknown History loratadine 10 mg tablet (Allergy 10 mg PO DAILY allerg ies 10/18/24 Unknown History Relief (loratadine)) magnesium chloride 64 mg 64 mg PO DAILY supplement Unknown History (magnesium chloride) tablet,delayed release (Mag 64) montelukast 10 mg tablet 10 mg PO DAILY allergies 10/05 Unknown History nystatin 100,000 unit/gram topical 1 applic topical DA HERNAN rash 10/18/24 Unknown History cream potassium chloride 10 mEq 10 meq PO DAILY supplement 0 10/18/24 Unknown History tablet,extended release apixaban 5 mg tablet (Eliquis) 5 mg PO BID #60 tabs Unknown Rx
--- NOTE | 2024-11-08 13:43 | PCM.CONS.P ---
[facility] Medical History Atrial fibrillation Cutaneous candidiasis Failure to thrive Bradycardia Chronic anticoagulation History of diabetes mellitus Unable to ambulate Adult failure to thrive Anxiety Depression Hyperthyroidism Diabetes Non-smoker BiPAP (biphasic positive airway pressure) dependence On home oxygen therapy Congestive heart failure (CHF) Chest pain Hypertension Migraines Contusion of right great toe without damage to nail, initial encounter CHF (congestive heart failure) CKD (chronic kidney disease), stage III Acute hypoxic respiratory failure Hypothyroidism Allergic rhinitis GERD (gastroesophageal reflux disease) Obstructive sleep apnea Hyperlipidemia Hypertension Type 2 diabetes mellitus Morbid obesity Home Medications ?Medication ?Instructions ?Recorded ?Last Taken ?Type atorvastatin 20 mg tablet 20 mg PO QHS cholesterol 05/12/16 05/11/16 22:00 History hydrocortisone 2.5 % topical cream 1 applicatio topical BID rash 05/12/16 Unknown History metoprolol tartrate 50 mg tablet 25 mg PO BID blood pressure 05/12/16 05/12/16 08:00 History nystatin 100,000 unit/gram topical 1 applic topical BID yeast 05/14/16 Unknown Rx powder ([facility]) docusate sodium 100 mg capsule 100 mg PO DAILY stool softner 06/16/24 Unknown History pantoprazole 40 mg tablet,delayed 40 mg PO DAILY reflux 06/16/24 Unknown History release ergocalciferol (vitamin D2) 1,250 1,250 mcg PO QWEEK vitamin 10/18/24 Unknown History mcg (50,000 unit) capsule escitalopram oxalate 10 mg tablet 10 mg PO QHS mental health 10/18/24 Unknown History glipizide 10 mg tablet 10 mg PO BID diabetes 10/18/24 Unknown History hydroxyzine pamoate 25 mg capsule 25 mg PO DAILY PRN itching 10/18/24 Unknown History levothyroxine 112 mcg tablet 112 mcg PO DAILY thyroid 10/18/24 Unknown History loratadine 10 mg tablet (Allergy 10 mg PO DAILY allergies 10/18/24 Unknown History Relief (loratadine)) magnesium chloride 64 mg 64 mg PO DAILY supplement 10/18/24 Unknown History (magnesium chloride) tablet,delayed release (Mag 64) montelukast 10 mg tablet 10 mg PO DAILY allergies 10/18/24 Unknown History nystatin 100,000 unit/gram topical 1 applic topical DAILY rash 10/18/24 Unknown History cream potassium chloride 10 mEq 10 meq PO DAILY supplement 10/18/24 Unknown History tablet,extended release apixaban 5 mg tablet (Eliquis) 5 mg PO BID #60 tabs 10/24/24 Unknown Rx Allergy/AdvReac Type Severity Reaction Status Date / Time lisinopril Allergy Unknown Verified 10/29/24 15:04 pollen extracts Allergy Itching Verified 10/29/24 15:04 Family History Mother Diabetes Heart disease Hypertension Father Diabetes Cancer Heart disease Alzheimer dementia Family History unable to obtain Surgical History History of cholecystectomy History of ankle surgery S/P cholecystectomy Surgical History unable to obtain Social History household members: spouse Smoking Status: Never smoker alcohol intake: never substance use type: does not use Homelessness:: Sheltered Prior Cardiac Testing/Procedures Prior Cardiac Testing/Procedures: Echocardiogram (EF 60%) ROS ROS Narrative significant dyspnea during assessment. Pt did become more confused during our conversation. She was holding the phone and asked me what this? I did reorient her. Review of Systems ROS Unobtainable: other Constitutional Constitutional: Reports as per HPI and other Details: morbid obesity with BMI of 77 Eyes Eyes: Reports other Details: pt states cataracts ENT HEENT: Reports as per HPI Cardiovascular Cardiovascular: Reports edema and leg edema Respiratory/Chest Respiratory/Chest: Reports dyspnea Gastrointestinal Gastrointestinal: Reports as per HPI Genitourinary Genitourinary: Reports other Details: burton Cath Musculoskeletal Musculoskeletal: Reports as per HPI Integumentary Integumentary: Reports erythema Neurologic Neurologic: Reports other Details: intermittent confusion, reports neuropathic pain to bilateral legs Psychiatric Psychiatric: Reports anxiety and depression Endocrine Endocrinology: Reports as per HPI Hematologic/Lymphatic Hematologic/Lymphatic: Reports as per HPI Allergic/Immunologic Allergic/Immunologic: Reports as per HPI Physical Exam Const alert and oriented x3 Constitutional Narrative: intermittent confusion Orientation / Consciousness: confused Eyes Eyes Narrative: cataracts Lymph Lymphatic Narrative: difficult with assessing RT body habitus Resp Resp Narrative: decreased SpO2 on HFNC and bipap Effort and Inspection: tachypneic Auscultation: crackles and diminished lung sounds Cardio Cardio Narrative: edema of 4+ to bilateral lower extremities and 3+ upper Rate: tachycardic GI non-tender Extremity Peripheral Pulses: Yes pulses 2+ throughout Skin Wounds: wounds noted surrounding erythema and other R hip Neuro Speech: speech normal Psych Psych Narrative: flat affect Mood & Affect: depressed, anxious and flat affect Charges/Coding Palliative Care Palliative Care: [id number] New Pt Consult 80+ min HPI Current admission Current Code Status: DNRCC-A Associated Diagnosis: CHF, respiratory failure, debility, failure to thrive Consult Data Date of Consult: 11/08/24 Location of consult: PCU Reason for referral: goals of care, code status Referral source: Dr. Leo Palliative care diagnosis (Summary list): CHF, respiratory failure, debility, failure to thrive, morbid obesity, BMI 77, Palliative care services/treatment (Accepted, as consult): accepted by pt and daughter Case discussed with referring provider: pt code status and agreeable to outpatient palliative care services HPI Narrative HPI Narrative: 11/08/24 JPG: prior to meeting with the pt at bedside, I reviewed all documentation from current and previous admissions, labs, EKG's and radilogical studies. I discussed case with Natalia CUMMINS and Dr. Leo. I then met with Melaniejany at bedside. She is aao x 3 with intermittent bouts of confusion. We discussed her goals of care going forward considering her multiple hospital admissions and severe debility being bedbound at baseline. She states I want to live We then discussed what quality of life looks like to her and she admits that she is OK with being bedbound and that she enjoys spending time with family. I do feel she lacks insight into the severity of her illness. We discussed the possibility of outpatient palliative care services which she is agreeable to, but wants her daughter to make the final decision. SHe does state then she is not ready for hospice. She does defer all decision making to her daughter, Jazmin. During conversation, I did note her oxygen saturations dipped to 83%, despite being on NC @ 12 liters. She did request to be placed back on Bipap and nurse was updated about the request. I then called the pt daughter to confirm code status in which she did confirm that she has a living will and is a DNR/DNI but is wanting Bipap as needed. I updated her on her mothers current status and also discussed the possibility of having outpatient palliative care. Jazmin is agreeable. CM/SW updated. Jazmin is aware that she is no longer capable of handling her mother at home and is aware of her going to [facility], once medically stable. Jasiel is currently not medically stable and is on a Lasix drip with rescue Bipap intermittenly. Palliative care will continue to follow to continued goals of care conversation as clinical picture evolves. per admitting physician: JASIEL HUNT, is a 78-year-old female with a history of JAYA, GERD, hypothyroidism, diabetes, depression, A-fib chronically on Eliquis who presented [facility] ED 10/29/2024 with confusion, hypoglycemia, hypoxia. She was discharged 5 days ago and has possibly been having some confusion since that time. Reportedly hypoxic by EMS in the 80s and has started wearing oxygen since her discharge. When she was here recently she was admitted for UTI with debility and weakness but declined skilled care and had home health instead, she was discharged on the after being admitted for 5 days. In the ED heart rate 47, blood pressure 111/82, respiratory rate 24 and pulse ox 100% on 15 L nonrebreather, temp was found to be 93.2. CBC with normal white blood cell count, hemoglobin 11.6, CMP with a potassium of 5.7 but found to be hemolyzed, BUN of 29 and a creatinine 1.12, glucose 50, TSH 12, INR 4.1, blood gas with a pH 7.23, bicarb of 34, O2 sat 93 and a PCO2 of 80.8, proBNP 10,697 with a Pro-Juanjo of 0.06 and a lactic of less than 1. Chest x-ray with mild cardiomegaly and diffuse pulmonary vascular congestion and possible left retrocardiac opacity. Patient had no signs or symptoms of infection and UA did not seem overtly seem infected, given elevated BNP, x-ray findings and hypoxia there is suspicion for CHF and IV Lasix ordered. There is no indication for IV antibiotics. Due to her low glucose she was given D10 and patient placed on Emily hugger as it was unclear why she was hypothermic. Hospitalist contacted for admission. Patient evaluated bedside. Patient very confused, mostly is not answering questions appropriately, repeat ABG showed slight improvement in pH and PCO2 but now with hypoxia, patient placed on BiPAP and plan for ICU. No family available at bedside to provide additional history. Palliative Assessment Advanced Directive - Current Admission Advance Directive: Advance Directive ON ADMISSION - REFERENCE Which Advance Directives None 10/29/24 23:22 documents are scanned in? Do you have a Healthcare Yes 10/29/24 23:22 Living Will? Is a Healthcare Living Will Yes, It is scanned in 10/29/24 23:22 present in the medical record? Do you have a Healthcare Power No 10/29/24 23:22 of Business Development Intern? Is a Healthcare Power of Yes, It is scanned in 10/29/24 15:04 Business Development Intern present in the medical rec Do You Want Additional Declined 10/29/24 23:22 Information on Advanced Directives or Healthcare Proxy/DPOA comments: lacy Wu [phone] Psychosocial/Spiritual Information Living situation/Marital status: lives with who has Alzheimers and daughter lives next door Geographic location: [place], [place] Supports: family Rastafarian/Melba or spiritual preference: all world buddhist Spiritual distress: denies Prior functional status: bedbound Assistive devices at home: nadira Cultrual issues: none identified Information about the patient as a person: Pt states I want to live and defers most decisions to her daughter. She is bedbound and states she enjoys spending time with family Symptoms Palliative performance scale: 30 (She has a Karnofsky scale score of 20) Palliative prognostic index: 12 Dyspnea symptoms: Severe Constipation symptoms: None Nausea symptoms: None Vomiting symptoms: None Depression symptoms: Moderate Anorexia symptoms: None Cough symptoms: None Insomnia symptoms: None Diarrhea symptoms: None Fatigue symptoms: Moderate Weakness symptoms: Severe Confusion symptoms: Moderate Side Effects & Interventions: on Lasix drip. I did ask if she would be interest in Roxonol for SOB and pt denied Objective Data Objective Data Vital Signs: Vital Signs Temp Pulse Resp BP Pulse Ox O2 Del Method O2 Flow Rate 98 F 95 20 H 107/69 94 Bi-pap 10 11/08/24 08:48 11/08/24 08:48 11/08/24 08:48 11/08/24 08:48 11/08/24 08:48 11/08/24 08:48 11/08/24 08:45 FiO2 35 11/08/24 07:43 Oxygen Flow Rate (L/min) 10 Oxygen Delivery Method Bi-pap Weight: 421 lb 8.381 oz Body Mass Index (BMI) 74.7 Intake & Output: Intake and Output for Last 24 Hours 11/06/24 11/07/24 11/08/24 23:59 23:59 23:59 Intake Total 1101 / 1341 1225.47 / 1225.47 784.43 / 784.43 Output Total 2500 / 3650 4500 / 5000 1850 / 1850 Balance -1399 / -2309 -3274.53 / -3774.53 -1065.57 / -1065.57 Lab / Micro Data Attestation: I reviewed the patient's lab results. 11/08/24 06:28 11/08/24 06:28 Labs: Laboratory Results - last 24 hr 11/05/24 13:30: Crossmatch See Detail 11/07/24 16:21: POC Glucose 193 H 11/07/24 21:20: POC Glucose 215 H 11/08/24 06:17: POC Glucose 188 H 11/08/24 06:28: WBC 8.6, RBC 3.24 L, Hgb 8.6 L, Hct 28.3 L, MCV 87.3, MCH 26.5 L, MCHC 30.4 L, RDW Std Deviation 55.6 H, RDW Coeff of Ryan 18.5 H, Plt Count 133 L, MPV 8.9, Immature Gran % (Auto) 0.200, Neut % (Auto) 72.6 H, Lymph % (Auto) 16.8 L, Hill % (Auto) 7.9, Eos % (Auto) 2.2, Baso % (Auto) 0.3, Absolute Neuts (auto) 6.2, Absolute Lymphs (auto) 1.44, Nucleated RBC % 0, Sodium 144, Potassium 3.2 L, Chloride 94 L, Carbon Dioxide 40.8 H, Anion Gap 10, BUN 16, Creatinine 1.05, Estim Creat Clear Calc 72.80, Est GFR (MDRD) Non-Af 54 L, BUN/Creatinine Ratio 15.2, Glucose 200 H, Calcium 8.4, Phosphorus 2.5 L, Magnesium 1.6 11/08/24 12:43: POC Glucose 265 H Micro: Microbiology 11/06/24 09:50 Stool Stool Occult Blood (EDEN) - Final Occult Blood Positive 10/29/24 15:29 Blood Culture (Wb) - Left Hand Blood Culture - Final No growth in 5 days. 10/29/24 15:40 Blood Culture (Wb) - Right Wrist Blood Culture - Final No growth in 5 days. 11/01/24 15:00 Stool Clostridioides difficile (PCR) - Final 10/29/24 15:17 Urine, Catheterized Urine Culture - Final Culture exhibits no growth. 10/30/24 05:48 Urine Catheter - Catheter Legionella Antigen - Final 10/30/24 05:48 Urine Catheter - Catheter Streptococcus pneumoniae Antigen (M - Final 10/30/24 00:10 Mucosa - Nasopharyngeal Coronavirus COVID-19 PCR - Final 10/30/24 00:10 Mucosa - Nasopharyngeal Respiratory Panel (PCR) - Final 10/29/24 15:40 Mucosa - Nose SARS-CoV-2, Influenza & RSV (PCR) - Final Rhythm Strip Rhythm Strip: A-fib (pt did have an episode of A-fib with RVR on 11/04) Social Homelessness:: Sheltered Impressions & Recommendations Patient & Family Issues discussed with the patient and family: chronic illness, goals of care and code status Patient goal: return home Family goal: possible home but symptom management Ethical & Legal Ethical and legal: may require POA to step in RT pt confusion that is intermittent Impressions Impressions: Pt currently lacks insight into the severity of her illness, both acute and chronic Recommentation Palliative recommendations: pt would qualify for hospice but is not ready pt would benefit from out patient palliative. Encouter Achieved as a result of this Palliative Care Encounter: [ [id number], [id number]] minutes were spent in total for this visit which consisted, primarily of counseling and education dealing with the complex and emotionally intense issues of symptom management and palliative care in the setting of serious and potentially life-threatening illness. Review of documentation, labs and radiological studies. ?Patient/family had the opportunity to ask questions Plan (1) CHF (congestive heart failure): QUALIFIERS: Heart failure type: diastolic Heart failure chronicity: chronic Qualified Code(s): I50.32 - Chronic diastolic (congestive) heart failure PLAN: medical mgmt per primary team (2) Acute hypercapnic respiratory failure: PLAN: medical mgmt per primary team (3) Hypoxia: PLAN: medical mgmt per primary team (4) Palliative care encounter: PLAN: - code status now DNRCC-A - palliative care outpatient referral -refused roxonol for dyspnea PLAN: Plan will be transferred to [facility] Alvar[facility] at [place].
--- NOTE | 2024-11-08 14:57 | CASEMGMT ---
Social Work Pt seen by palliative care here, pt is agreeable to follow up w/palliative care at the [facility]-way facility. Information added to d/c instructions for Heriberto Alvarado to follow up w/palliative referral when pt is there. SOFYA Parada
[2024-11-09] VITALS (10 sets, daily range): BP systolic 110–129; BP diastolic 54–72; PULSE 67–103; RESP 16–24; TEMP 35.6–36.9; O2SAT 93–96; BMI 74.4
[2024-11-09 05:54] LABS: Hematocrit 27.8 % (37-47); Hemoglobin 8.3 g/dL (12.0-15.0); Immature Granulocytes Count 0.030 X10^3/uL (0.0-0.0); Mean Corp Hgb Conc 29.9 g/dL (32-36); Mean Corpuscular Volume 87.7 fL (81-99); Mean Platelet Vol. 9.1 fl (6.2-12.0); NRBC Flagged by Analyzer 0 % (0-5); Platelet Count 145 K/mm3 (150-450); RBC Distribution Width CV 18.8 % (11.6-14.6); RBC Distribution Width SD 56.7 fl (35.1-43.9); Red Blood Count 3.17 M/mm3 (4.2-5.4); White Blood Count 8.7 K/mm3 (4.4-11.0)
[2024-11-09 06:37] LABS: Anion Gap 9 (5-15); BUN 15 mg/dL (4-19); BUN/Creat Ratio 14.7 RATIO (10-20); Calcium,Total 8.2 mg/dL (7.6-11.0); Carbon Dioxide 41.1 mmol/L (21.0-32.0); Chloride 92 mmol/L (98-108); Estimated Creatinine Clearance 72.67 ml/min (50-250); Glucose 243 mg/dL (70-99); Potassium 3.0 mmol/L (3.3-5.1)
--- NOTE | 2024-11-09 08:48 | PCM.PN.PAL ---
Subjective Subjective pt is very restless and stating her legs hurt. Agitated and ripping off her Bipap mask. Oriented to person only. Call made to daughter and transition to hospice and comfort care Objective Data Objective Data abnormals for 11/09/24: continued anemia with a hemoglobin of 8.3 PLT of 145, K+ 3.0, CL- 92, Co2 41.1, GFR 54 and BS 243 Vital Signs: Vital Signs Temp Pulse Resp BP Pulse Ox O2 Del Method O2 Flow Rate 96.1 F L 81 20 H 119/72 94 Bi-pap 10 11/09/24 08:09 11/09/24 08:09 11/09/24 08:09 11/09/24 08:09 11/09/24 08:09 11/09/24 08:09 11/08/24 15:48 FiO2 35 11/09/24 07:20 Oxygen Flow Rate (L/min) 10 Oxygen Delivery Method Bi-pap Weight: 420 lb 6.744 oz Body Mass Index (BMI) 74.4 Intake & Output: Intake and Output for Last 24 Hours 11/07/24 11/08/24 11/09/24 23:59 23:59 23:59 Intake Total 1225.47 / 1225.47 1570.43 / 1570.43 Output Total 4500 / 5000 2450 / 3450 1800 / 1800 Balance -3274.53 / -3774.53 -879.57 / -1879.57 -1800 / -1800 NPO on bipap. Lab / Micro Data Attestation: I reviewed the patient's lab results. 11/09/24 05:26 11/09/24 05:26 Labs: Laboratory Results - last 24 hr 11/08/24 12:43: POC Glucose 265 H 11/08/24 17:06: POC Glucose 294 H 11/08/24 22:17: POC Glucose 242 H 11/09/24 05:26: WBC 8.7, RBC 3.17 L, Hgb 8.3 L, Hct 27.8 L, MCV 87.7, MCH 26.2 L, MCHC 29.9 L, RDW Std Deviation 56.7 H, RDW Coeff of Ryan 18.8 H, Plt Count 145 L, MPV 9.1, Immature Gran % (Auto) 0.300, Neut % (Auto) 71.8 H, Lymph % (Auto) 15.9 L, [place] % (Auto) 8.9, Eos % (Auto) 2.9, Baso % (Auto) 0.2, Absolute Neuts (auto) 6.2, Absolute Lymphs (auto) 1.38, Nucleated RBC % 0, Sodium 142, Potassium 3.0 L, Chloride 92 L, Carbon Dioxide 41.1 H, Anion Gap 9, BUN 15, Creatinine 1.05, Estim Creat Clear Calc 72.67, Est GFR (MDRD) Non-Af 54 L, BUN/Creatinine Ratio 14.7, Glucose 243 H, Calcium 8.2 11/09/24 06:26: POC Glucose 232 H Micro: Microbiology 11/06/24 09:50 Stool Stool Occult Blood (EDEN) - Final Occult Blood Positive 10/29/24 15:29 Blood Culture (Wb) - Left Hand Blood Culture - Final No growth in 5 days. 10/29/24 15:40 Blood Culture (Wb) - Right Wrist Blood Culture - Final No growth in 5 days. 11/01/24 15:00 Stool Clostridioides difficile (PCR) - Final 10/29/24 15:17 Urine, Catheterized Urine Culture - Final Culture exhibits no growth. 10/30/24 05:48 Urine Catheter - Catheter Legionella Antigen - Final 10/30/24 05:48 Urine Catheter - Catheter Streptococcus pneumoniae Antigen (M - Final 10/30/24 00:10 Mucosa - Nasopharyngeal Coronavirus COVID-19 PCR - Final 10/30/24 00:10 Mucosa - Nasopharyngeal Respiratory Panel (PCR) - Final 10/29/24 15:40 Mucosa - Nose SARS-CoV-2, Influenza & RSV (PCR) - Final Rhythm Strip Rhythm Strip: A-fib (pt did have an episode of A-fib with RVR on 11/04) Social Homelessness:: Sheltered Physical Exam Narrative pt is extremely restless and agitated. Pulling off her mask then yelling that she cant breathe. She is also complaining of R leg pain Const Constitutional Narrative: not oriented at this time General Appearance: on BiPAP Orientation / Consciousness: awake, confused and disoriented Exam Limitations: altered mental status Nutritional Appearance: morbidly obese HEENT Mouth: dry mucous membranes Neck Neck Narrative: unable to assess as pt is currently uncooperative Chest Chest: abnormal inspection of the chest Resp Resp Narrative: updated RN about pt complaints and she is preparing to medicate the pt. Effort and Inspection: tachypneic, respiratory distress, labored and uses accessory muscles Auscultation: crackles, wheezes and diminished lung sounds Cardio Cardio Narrative: difficult to asses as pt is moaning and yelling through her Bipap mask Rate: tachycardic GI GI Narrative: unable to assess Rectal Exam: deferred Bladder / Kidney Exam: catheter in place Extremity Extremity Narrative: painful to palpation General Extremity: edema and other findings Other Details: painful with palpation bilateral LE Peripheral Pulses: Yes dorsalis pedis pulses present Skin Lesions: lesion noted and other Rashes: rashes noted Right hip/upper lateral thigh bulla Neuro Neuro Narrative: alert to person only , pain to bilateral lower extremities. R worse than L Sensorium / Orientation: confused Psych Attitude: agitated Activity / Motor Behavior: restless Speech: loud Mood & Affect: anxious and irritable Memory / Cognition: cognition impaired Insight: questionable Charges/Coding Palliative Care Palliative Care: [id number] Follow up 50+ min Consulation Summary Current admission Current Code Status: DNRCC ( allowance for Bipap for comfort) Associated Diagnosis: CHF, resp failure, Consult Data Date of Consult: 11/08/24 Location of consult: PCU Reason for referral: goals of care, code status Referral source: Dr. Leo Palliative care diagnosis (Summary list): CHF, respiratory failure, debility, failure to thrive, morbid obesity, BMI 77, Palliative care services/treatment (Accepted, as consult): accepted by pt and daughter Case discussed with referring provider: family meeting to discuss goals of care, hospice Palliative Assessment Advanced Directive - Current Admission Advance Directive: Advance Directive ON ADMISSION - REFERENCE Which Advance Directives None 10/29/24 23:22 documents are scanned in? Do you have a Healthcare Yes 10/29/24 23:22 Living Will? Is a Healthcare Living Will Yes, It is scanned in 10/29/24 23:22 present in the medical record? Do you have a Healthcare Power No 10/29/24 23:22 of Software Administrator? Is a Healthcare Power of Yes, It is scanned in 10/29/24 15:04 Software Administrator present in the medical rec Do You Want Additional Declined 10/29/24 23:22 Information on Advanced Directives or Healthcare Proxy/DPOA comments: Jazmin-called and left message about family meeting for today to discuss [facility] Symptoms Dyspnea symptoms: Severe Constipation symptoms: None Nausea symptoms: None Vomiting symptoms: None Anorexia symptoms: Severe (NPO of Bipap ) Confusion symptoms: Severe Impression & Recommendations Impressions Impressions: 11/09/24: I reveiwed documentation and labs from overnight. Pt continues to deteriorate despite aggressive medical management. I then met with the patient at bedside. She was screaming and taking off her BiPAP mask and then stating that she cannot breathe. She was stating that she had severe pain in her legs. She was very agitated and difficult to redirect. Oxygen saturations were 78% when nursing attempted to transition her to high flow nasal cannula thus they placed her back on BiPAP. I initially contacted the patient's daughter and had to leave a message. I was unable to reach the patient, Jazmin by phone in the late morning. I updated her on her mother's current status and that despite aggressive medical management, the patient continues to decompensate. Jazmin stated understanding and that she was agreeable to transitioning her mother to comfort care and hospice. She stated that she would like for her mother to go to the inpatient unit for continued hospice care and comfort. I did update in which he is in agreement. I did order comfort care medications, discontinued labs and liberalize the patient's diet with no restrictions for fluid intake. Lasix drip has been discontinued. Jazmin is understandably upset but realizes that this is the best thing for her mother going forward. I then did go reevaluate Xenia in which she was slightly more responsive although still slightly confused. Her cousin was at bedside and is also in agreement with the patient going to hospice as she feels that this is the best thing as well. I did update social work and case management about family wishes to go to the inpatient unit. Order was placed for referral. Mckenna was in agreement with hospice and comfort care. She did acknowledge that she has been getting worse instead of better despite her extended hospital stay. All questions Jasiel and her cousin had were answered. 11/08/24 JPG: prior to meeting with the pt at bedside, I reviewed all documentation from current and previous admissions, labs, EKG's and radilogical studies. I discussed case with Natalia CUMMINS and Dr. Leo. I then met with Jasiel at bedside. She is aao x 3 with intermittent bouts of confusion. We discussed her goals of care going forward considering her multiple hospital admissions and severe debility being bedbound at baseline. She states I want to live We then discussed what quality of life looks like to her and she admits that she is OK with being bedbound and that she enjoys spending time with family. I do feel she lacks insight into the severity of her illness. We discussed the possibility of outpatient palliative care services which she is agreeable to, but wants her daughter to make the final decision. SHe does state then she is not ready for hospice. She does defer all decision making to her daughter, Jazmin. During conversation, I did note her oxygen saturations dipped to 83%, despite being on NC @ 12 liters. She did request to be placed back on Bipap and nurse was updated about the request. I then called the pt daughter to confirm code status in which she did confirm that she has a living will and is a DNR/DNI but is wanting Bipap as needed. I updated her on her mothers current status and also discussed the possibility of having outpatient palliative care. Jazmin is agreeable. CM/SW updated. Jazmin is aware that she is no longer capable of handling her mother at home and is aware of her going to [facility], once medically stable. Jasiel is currently not medically stable and is on a Lasix drip with rescue Bipap intermittenly. Palliative care will continue to follow to continued goals of care conversation as clinical picture evolves. Recommentation Palliative recommendations: pt would qualify for hospice. I am attempting to contact the daughter to arrange for a family meeting today as pt continues to deteriorate despite aggressive medical management. I did discuss the pt with CM/SW, nursing and provider. I did spoke to the patients daughter and updated her on her mothers current status. She is agreeable to hospice and is requesting IPU. She is wanting comfort for her mother. Encouter Achieved as a result of this Palliative Care Encounter: [ [id number], [id number], [id number], [id number]] minutes were spent in total for this visit which consisted, primarily of counseling and education dealing with the complex and emotionally intense issues of symptom management and palliative care in the setting of serious and potentially life-threatening illness. Review of documentation, labs and radiological studies. ?Patient/family had the opportunity to ask questions Plan (1) CHF (congestive heart failure): QUALIFIERS: Heart failure chronicity: chronic Heart failure type: diastolic Qualified Code(s): I50.32 - Chronic diastolic (congestive) heart failure PLAN: continue lasix drip medical mgmt per IDT (2) Acute hypercapnic respiratory failure: PLAN: medical mgmt per IDT (3) Hypoxia: PLAN: Medical mgmt per IDT (4) Palliative care encounter: PLAN: - Patient continues to deteriorate despite aggressive medical management - Recommend hospice for patient comfort going forward and quality of life. - Daughter, Jazmin was able to be reached in which she is in agreement with hospice at the inpatient unit and patient comfort -Morphine 2.5 mg p.o. every hour to maintain respiratory rate less than 22 or for mild to superior pain 1-5 - Morphine 5 mg p.o. every 3 hours to maintain respiratory rate less than 2-2 or for moderate to severe pain 5-10 - Ativan 0.5 mg p.o. every 3 hours as needed for anxiety - Liberalize diet with no fluid restrictions - Discontinue lab draws - Discontinue Lasix drip - Continue BiPAP as needed for comfort/may alternate with high flow nasal cannula - Continue to reposition every 2 hours - Contact agronomy advisor Jamie for spiritual support, per request of cousin.
--- NOTE | 2024-11-09 09:11 | PN.HOSP_ITS ---
Subjective Subjective Continues to wax and wane in her mental status, her respiratory status is also variable this morning she panicked and had to go back on the BiPAP Objective Data Objective Data Vital Signs: Vital Signs Temp Pulse Resp BP Pulse Ox O2 Del Method O2 Flow Rate 96.1 F L 81 20 H 119/72 94 Bi-pap 10 11/09/24 08:09 11/09/24 08:09 11/09/24 08:09 11/09/24 08:09 11/09/24 08:09 11/09/24 08:09 11/08/24 15:48 FiO2 35 11/09/24 07:20 Oxygen Flow Rate (L/min) 10 Oxygen Delivery Method Bi-pap Weight: 420 lb 6.744 oz Body Mass Index (BMI) 74.4 Intake & Output: Intake and Output for Last 24 Hours 11/08/24 11/09/24 11/10/24 03:59 03:59 03:59 Intake Total 985.47 / 985.47 1570.43 / 1570.43 Output Total 3850 / 3850 2950 / 2950 800 / 800 Balance -2864.53 / -2864.53 -1379.57 / -1379.57 -800 / -800 Lab / Micro Data 11/09/24 05:26 11/09/24 05:26 Labs: Laboratory Results - last 24 hr 11/08/24 12:43: POC Glucose 265 H 11/08/24 17:06: POC Glucose 294 H 11/08/24 22:17: POC Glucose 242 H 11/09/24 05:26: WBC 8.7, RBC 3.17 L, Hgb 8.3 L, Hct 27.8 L, MCV 87.7, MCH 26.2 L , MCHC 29.9 L, RDW Std Deviation 56.7 H, RDW Coeff of Ryan 18.8 H, Plt Count 145 L, MPV 9.1, Immature Gran % (Auto) 0.300, Neut % (Auto) 71.8 H, Lymph % (Auto) 15.9 L, [place] % (Auto) 8.9, Eos % (Auto) 2.9, Baso % (Auto) 0.2, Absolute Neuts (auto) 6.2, Absolute Lymphs (auto) 1.38, Nucleated RBC % 0, Sodium 142, P otassium 3.0 L, Chloride 92 L, Carbon Dioxide 41.1 H, Anion Gap 9, BUN 15, Creatinine 1.05, Estim Creat Clear Calc 72.67, Est GFR (MDRD) Non-Af 54 L, BUN/Creatinine Ratio 14.7, Glucose 243 H, Calcium 8.2 11/09/24 06:26: POC Glucose 232 H Micro: Microbiology 11/06/24 09:50 Stool Stool Occult Blood (EDEN) - Final Occult Blood Positive 10/29/24 15:29 Blood Culture (Wb) - Left Hand Blood Culture - Final No growth in 5 days. 10/29/24 15:40 Blood Culture (Wb) - Right Wrist Blood Culture - Final No growth in 5 days. 11/01/24 15:00 Stool Clostridioides difficile (PCR) - Final 10/29/24 15:17 Urine, Catheterized Urine Culture - Final Culture exhibits no growth. 10/30/24 05:48 Urine Catheter - Catheter Legionella Antigen - Final 10/30/24 05:48 Urine Catheter - Catheter Streptococcus pneumoniae Antigen (M - Final 10/30/24 00:10 Mucosa - Nasopharyngeal Coronavirus COVID-19 PCR - Final 10/30/24 00:10 Mucosa - Nasopharyngeal Respiratory Panel (PCR) - Final 10/29/24 15:40 Mucosa - Nose SARS-CoV-2, Influenza & RSV (PCR) - Final Rhythm Strip Rhythm Strip: A-fib (pt did have an episode of A-fib with RVR on 11/04) Social Homelessness:: Sheltered Physical Exam Narrative General: Alert, disoriented, Cooperative, No apparent distress, super morbidly obese HEENT: Atraumatic, PERRLA, EOMI, Normocephalic Oral: Moist Mucosa Neck: Supple, No JVD Lungs: Diminished, Normal air movement, No rhonchi, No wheeze, No rales Cardiovascular: Regular rate, Regular Rhythm, Normal S1, Normal S2, No murmurs, heart sounds difficult due to body habitus Abdomen: Soft, Non Tender, Non-Distended, No Hepato-splenomegaly Extremities: Edema, Capillary Refill Less than 3 Seconds Skin: Skin tear on her right elbow, with multiple areas of ecchymosis and bruising Musculoskeletal: No Tenderness to Palpation of Joints or Extremities Neurological: No focal neurological deficits, moves all extremities Psych/Mental Status: Flat Assessment & Plan Assessment/Plan (1) Acute metabolic encephalopathy due to hypoglycemia: PLAN: Plan 1. Acute metabolic encephalopathy secondary to sepsis from pneumonia with acute hypoxic and hypercapnic respiratory failure/debility/JAYA ? PT/OT ? Consult case management for discharge planning ? Sepsis has resolved ?She is having increased oxygen requirements, with increased BiPAP usage. ? Repeat chest x-ray indicates an increased vascular congestion and signs of CHF ? There is a thought that she could have a UTI however cultures were negative likely due to the fact that she was already on antibiotics 2. Acute on chronic diastolic CHF/essential HTN/HLD/paroxysmal A-fib ? Echo in June 2024 with an EF of 60% ?Continue with a Lasix drip, she is -7 L though it is unclear how accurate this is. Will place her on a fluid restriction as well, she is negative a total of over 12 L fluid, will monitor creatinine and bicarb ? Continue with metoprolol will monitor her blood pressures and make adjustments as necessary ?Restart Eliquis 3. DM2/super morbid obesity ? Accu-Cheks ? Sliding scale insulin ? Will monitor make adjustments as necessary ? Will hold her oral medications ? BMI of 77 4. Hypothyroidism ? Stable ? Continue with Synthroid 5. GERD ? Continue with PPI ? Stable 6. Acute blood loss anemia ? Unclear as to the etiology ?Iron studies were unremarkable, fecal occult is positive ?Hemoglobin is 8.3 this morning however her INR remains elevated, so we will trial her on another dose of IV vitamin K while we restart her Eliquis ? Unfortunately given her body habitus and the risks from anesthesia she is not a great candidate for either colonoscopy or an EGD 7. Candidiasis ? Continue with topical nystatin 8. Hypomagnesemia and hypophosphatemia with hypokalemia ? Replacing and monitoring all DVT: Eliquis Charges/Coding Visit Charges Inpatient E&M: 34826 Subs Hosp L2
[2024-11-09] MEDS: Potassium Chloride 10mEq/100mL 10 MEQ/100 ML IV.SOLN. 100 MEQ IV BOLUS ×4 (09:29→14:22)
[2024-11-09] MEDS: 0.9% Normal Saline (250mL Bag) 250 ML 15 ML IV (09:30)
--- NOTE | 2024-11-09 09:36 | CASEMGMT ---
Addendum entered by Makenzie Tatum 11/09/24 13:29: SARA updated Radha RIDLEY CM of hospice consult via voicemail. YAMILET Sims Addendum entered by Makenzie Tatum 11/09/24 12:28: Social Work- SARA received a call from Jennifer at hospice who reports a consult time of 5:30-6:00 PM. SARA updated Palliative WEALTH MANAGEMENT DIRECTOR and hospitalist. SARA remains available to follow. YAMILET Sims Addendum entered by Makenzie Tatum 11/09/24 11:28: SARA spoke with Radha who shared that she is agreeable to coming in to participate in a family meeting if pt dtr is agreeable to meet with WEALTH MANAGEMENT DIRECTOR. Radha reports that she felt at last visit that pt would benefit from hospice. SARA reached out to Palliative WEALTH MANAGEMENT DIRECTOR to update. Palliative WEALTH MANAGEMENT DIRECTOR reports pt dtr is agreeable to hospice and would like IPU unit. SARA reached out to hospitalist. Hospitalist agreeable to hospice referral being started. SARA completed referral via telephone and faxed clinicals to [facility]. YAMILET Sims Original Note: Social Work- SARA received updated from palliative WEALTH MANAGEMENT DIRECTOR that she feels pt is hospice appropriate at this time. WEALTH MANAGEMENT DIRECTOR to have continued discussions with pt dtr Jazmin. SARA called [facility] CM Shari Valdovinos and left voicemail to update on status of pt. SARA remains available to follow. YAMILET Sims
[2024-11-09] MEDS: Phytonadione (Vit K) 10 MG in 0.9% Normal Saline (50mL Bag) 50 ML 150 MG IV (09:58)
--- NOTE | 2024-11-09 10:45 | CASEMGMT ---
Discharge Planning Updates sent to [facility], including Palliative Consult, should family wish to proceed with snf/palliative. [facility] verified that they would be able to accommodate up to 10L O2. SW updated. Arabella Bertrand DC Planning Asst.
[2024-11-09] MEDS: morphine (oral solution) 10MG/0.5ML Syringe 2.5 MG SL (17:09)
--- NOTE | 2024-11-09 18:16 | CASEMGMT ---
Social Work SARA was contacted by Mariya Nurse on PCU that Hospice was at [facility] to sign in patient, that patients family was not in hospital and they had been unable to contact them via phone. SARA called Jazmin, patients daughter, who was able to answer at this time. Daughter stated that she was not on her way to the hospital as she did not have anyone to help with her father, that she had called Hospice and arranged to sign forms tomorrow at 11:30am. SARA spoke with Hospice nurse Ruth who was able to find confirmation of the appointment change time. Mariya PCU nurse was also notified. No further needs at this time. Luisa Hollis, SUPERINTENDENT GENERATING PLANT, HEEL SANDER RUBBER
[2024-11-10] VITALS (7 sets, daily range): BP systolic 129–149; BP diastolic 71–92; PULSE 68–115; RESP 16–24; TEMP 36.6–37.1; O2SAT 92–100; BMI 74.0
[2024-11-10] MEDS: LORazepam 2 MG/ML Bottle 0.5 MG SL (04:58)
--- NOTE | 2024-11-10 11:29 | PCM.PN.HOSP ---
Subjective Subjective Family discussed with proceeding with hospice they are still meeting with hospice to determine the details however we have proceeded with hospice care with pain management, and discontinuation of lab work and most medications under the guidance of the palliative care team Objective Data Objective Data Vital Signs: Vital Signs Temp Pulse Resp BP Pulse Ox O2 Del Method O2 Flow Rate 98.8 F 100 20 H 149/92 H 100 Bi-pap 10 11/10/24 08:35 11/10/24 08:35 11/10/24 08:35 11/10/24 08:35 11/10/24 08:35 11/10/24 10:00 11/08/24 15:48 FiO2 35 11/10/24 08:35 Oxygen Flow Rate (L/min) 10 Oxygen Delivery Method Bi-pap Weight: 418 lb 3.47 oz Body Mass Index (BMI) 74.0 Intake & Output: Intake and Output for Last 24 Hours 11/09/24 11/10/24 11/11/24 03:59 03:59 03:59 Intake Total 1570.43 / 1570.43 731.75 / 731.75 Output Total 2950 / 2950 2575 / 2575 400 / 400 Balance -1379.57 / -1379.57 -1843.25 / -1843.25 -400 / -400 Lab / Micro Data 11/09/24 05:26 11/09/24 05:26 Labs: Laboratory Results - last 24 hr 11/09/24 12:00: POC Glucose 221 H 11/09/24 16:39: POC Glucose 177 H 11/09/24 23:15: POC Glucose 166 H 11/10/24 06:32: POC Glucose 191 H Micro: Microbiology 11/06/24 09:50 Stool Stool Occult Blood (EDEN) - Final Occult Blood Positive 10/29/24 15:29 Blood Culture (Wb) - Left Hand Blood Culture - Final No growth in 5 days. 10/29/24 15:40 Blood Culture (Wb) - Right Wrist Blood Culture - Final No growth in 5 days. 11/01/24 15:00 Stool Clostridioides difficile (PCR) - Final 10/29/24 15:17 Urine, Catheterized Urine Culture - Final Culture exhibits no growth. 10/30/24 05:48 Urine Catheter - Catheter Legionella Antigen - Final 10/30/24 05:48 Urine Catheter - Catheter Streptococcus pneumoniae Antigen (M - Final 10/30/24 00:10 Mucosa - Nasopharyngeal Coronavirus COVID-19 PCR - Final 10/30/24 00:10 Mucosa - Nasopharyngeal Respiratory Panel (PCR) - Final 10/29/24 15:40 Mucosa - Nose SARS-CoV-2, Influenza & RSV (PCR) - Final Rhythm Strip Rhythm Strip: A-fib (pt did have an episode of A-fib with RVR on 11/04) Social Homelessness:: Sheltered Physical Exam Narrative General: Alert, disoriented, Cooperative, No apparent distress, super morbidly obese HEENT: Atraumatic, PERRLA, EOMI, Normocephalic Oral: Moist Mucosa Neck: Supple, No JVD Lungs: Diminished, Normal air movement, No rhonchi, No wheeze, No rales Cardiovascular: Regular rate, Regular Rhythm, Normal S1, Normal S2, No murmurs, heart sounds difficult due to body habitus Abdomen: Soft, Non Tender, Non-Distended, No Hepato-splenomegaly Extremities: Edema, Capillary Refill Less than 3 Seconds Skin: Skin tear on her right elbow, with multiple areas of ecchymosis and bruising Musculoskeletal: No Tenderness to Palpation of Joints or Extremities Neurological: No focal neurological deficits, moves all extremities Psych/Mental Status: Flat Assessment & Plan Assessment/Plan (1) Acute metabolic encephalopathy due to hypoglycemia: PLAN: Plan 1. Acute metabolic encephalopathy secondary to sepsis from pneumonia with acute hypoxic and hypercapnic respiratory failure/debility/JAYA ? PT/OT ? Consult case management for discharge planning ? Sepsis has resolved ?Continue with BiPAP ? Awaiting official evaluation by hospice for discharge planning apparently the inpatient hospice unit is full and I do not believe that her home environment would be suitable for hospice. Could potentially discharge to [facility] for hospice care 2. Acute on chronic diastolic CHF/essential HTN/HLD/paroxysmal A-fib ? Echo in June 2024 with an EF of 60% ?Lasix drip has been discontinued by palliative care as she will be proceeding on hospice however given her shortness of breath and her volume status will resume some IV Lasix dosing as this can be a comfort med ? Continue with metoprolol will monitor her blood pressures and make adjustments as necessary ?Restart Eliquis 3. DM2/super morbid obesity ? Accu-Cheks ? Sliding scale insulin ? Will monitor make adjustments as necessary ? Will hold her oral medications ? BMI of 77 4. Hypothyroidism ? Stable ? Continue with Synthroid 5. GERD ? Continue with PPI ? Stable 6. Acute blood loss anemia ? Unclear as to the etiology ?Iron studies were unremarkable, fecal occult is positive ?Hemoglobin is 8.3 this morning however her INR remains elevated, so we will trial her on another dose of IV vitamin K while we restart her Eliquis ? Unfortunately given her body habitus and the risks from anesthesia she is not a great candidate for either colonoscopy or an EGD 7. Candidiasis ? Continue with topical nystatin 8. Hypomagnesemia and hypophosphatemia with hypokalemia ? Replacing and monitoring all DVT: Eliquis Charges/Coding Visit Charges Inpatient E&M: 57374 Subs Hosp L2
[2024-11-10] MEDS: 0.9% Saline Lock 10 ML Syringe IV (12:53)
--- NOTE | 2024-11-10 13:30 | CASEMGMT ---
Social Work- SARA met with Dalia, hospice nurse, who reports that pt and pt dtr signed for services. Dalia reports IPU is full until Tuesday. Dalia spoke with hospitalist who educated that pt has acceptance at [facility]; pt family agreeable. SARA updated Heriberto on pt discharge plans and needs as communicated by hospice; Heriberto able to accept with hospice providing bi-pap. SARA updated Dalia who reports that she will order bipap stat with typical delivery taking 4 hrs. SARA updated Majora and verified that a later/after-supper transport time would be acceptable. SARA updated hospitalist; hospitalist to complete discharge documentation. SARA updated Dalia at Hospice; Dalia reports a nurse will meet after transport and she has already spoken with respiratory regarding bi-pap. SARA obtained fax and nurse report numbers and added to green sheet. RNCM set up transport for 7:45PM. Green sheet placed on chart. SARA called dtr Jazmin to update; Jazmin appreciative of assistance and update. Plan: [facility] under hospice services YAMILET Sims
--- NOTE | 2024-11-10 14:07 | CASEMGMT ---
TC to Phys[facility] to set up transport for pt to [facility], spoke with Julissa who is aware pt is a 4 person assist and is on bipap. Plan for pickup at 7:45pm.
--- NOTE | 2024-11-10 14:50 | TREXTCAR_ITS ---
Diet Diet Order/Speech Therapy: INPATIENT Hospital Diet / Speech Therapy Order(s) 11/09/24 12:40 Diet: Regular - General Dietary Modifications:: Cardiac / Heart Healthy Fluid restriction:: 1500 mL Diet Comments: have meats chopped up please-liberalize diet on comfot care Routine Orders/Code Status Code Status: DNRCC DC O2, CPAP, BIPAP needs Home O2 Discharge instructions: No Wound(s) left heel: Wound Type: Pressure Injury right heel: Wound Type: Pressure Injury left upper thigh: Wound Type: open blister Dressing Change: ABD pad coccyx-small open area: Wound Type: MASD (moisture associated skin damage) LLE: Wound Type: Skin Tear BLE: Wound Type: fluid filled blisters behind knees: Wound Type: moisture associated skin damage skin folds: Wound Type: moisture associated skin damage/Intertrigo Problem/Diagnosis (1) Acute metabolic encephalopathy due to hypoglycemia: Status: Resolved Code(s): G93.41 - Metabolic encephalopathy; E16.2 - Hypoglycemia, unspecified Plan 1. Acute metabolic encephalopathy secondary to sepsis from pneumonia with acute hypoxic and hypercapnic respiratory failure/debility/JAYA ? PT/OT ? Consult case management for discharge planning ? Sepsis has resolved ?Continue with BiPAP ? Awaiting official evaluation by hospice for discharge planning apparently the inpatient hospice unit is full and I do not believe that her home environment would be suitable for hospice. Could potentially discharge to [facility] for hospice care 2. Acute on chronic diastolic CHF/essential HTN/HLD/paroxysmal A-fib ? Echo in June 2024 with an EF of 60% ?Lasix drip has been discontinued by palliative care as she will be proceeding on hospice however given her shortness of breath and her volume status will resume some IV Lasix dosing as this can be a comfort med ? Continue with metoprolol will monitor her blood pressures and make adjustments as necessary ?Restart Eliquis 3. DM2/super morbid obesity ? Accu-Cheks ? Sliding scale insulin ? Will monitor make adjustments as necessary ? Will hold her oral medications ? BMI of 77 4. Hypothyroidism ? Stable ? Continue with Synthroid 5. GERD ? Continue with PPI ? Stable 6. Acute blood loss anemia ? Unclear as to the etiology ?Iron studies were unremarkable, fecal occult is positive ?Hemoglobin is 8.3 this morning however her INR remains elevated, so we will trial her on another dose of IV vitamin K while we restart her Eliquis ? Unfortunately given her body habitus and the risks from anesthesia she is not a great candidate for either colonoscopy or an EGD 7. Candidiasis ? Continue with topical nystatin 8. Hypomagnesemia and hypophosphatemia with hypokalemia ? Replacing and monitoring all DVT: Eliquis Allergies/Procedures Done in Hospital Allergies lisinopril Allergy (Verified 10/29/24 15:04) Unknown pollen extracts Allergy (Verified 10/29/24 15:04) Itching Type of Care/Length of Stay Estimated LOS: More Than 30 Days Type of Care Needed: Inpt Hospice Facility Rehab Potential: None Prognosis: None Additional Orders/Day of Discharge Additional Orders: Please have palliative care see pt. She saw our palliative DIRECTOR BUSINESS MANAGEMENT and is agreeable to palliative services. Day of Discharge: 11/10/24 Dietary and Speech Recommendations Dietitian Recommendations/Changes: Continue carbohydrate controlled/cardiac diet. Will monitor weight trends. Discharge Plan Admission Admit Date/Time: 10/29/24 20:22 Attending Provider: Rj Leo Primary Care Provider: Socrates Spangler Consulting Providers: Savanna Suero; Mihai Baca; Steve Hernandez; Jeremiah Uribe; Guido Tompkins; Mert Vazquez; Holden Neal; Lucius Jaffe; Brigette Phillips; Abisai Jovel; Delmar Vasquez; Josr Abraham; Marilia Ghosh; Jez Fisher; Bianca Landaverde; Monique,Shaggy; Shola Lara; Hardy Salas; Yamil Mendez; Sb Sung; Rj Ochoa; Luis Rene; Alexis Pena; Hernan Cerrato; Mert Santos; Mert Hutchins; Milagro Coffman; Teagan Wellington; Gissel Meza; Juliana Crowe DIRECTOR BUSINESS MANAGEMENT; Hanny Islas Discharge Orders/Prescriptions Prescriptions: No Action atorvastatin 20 MG tablet 20 mg PO QHS Patient Comments: cholesterol metoprolol tartrate 50 MG tablet 25 mg PO BID Patient Comments: blood pressure hydrocortisone 1 APPLIC cream 1 applicatio topical BID nystatin [Nyamyc] 1 APPLIC bottle 1 applic topical BID 0RF Patient Comments: uses at times docusate sodium 100 MG capsule 100 mg PO DAILY pantoprazole 40 mg tablet,delayed release (DR/EC) 40 mg PO DAILY glipizide 10 mg tablet 10 mg PO BID ergocalciferol (vitamin D2) 1,250 mcg (50,000 unit) capsule 1,250 mcg PO QWEEK hydroxyzine pamoate 25 mg capsule 25 mg PO DAILY PRN (Reason: itching) escitalopram oxalate 10 mg tablet 10 mg PO QHS Patient Comments: at 9PM loratadine [Allergy Relief (loratadine)] 10 mg tablet 10 mg PO DAILY levothyroxine 112 mcg tablet 112 mcg PO DAILY potassium chloride 10 mEq tablet extended release 10 meq PO DAILY nystatin 100,000 unit/gram cream 1 applic topical DAILY Patient Comments: uses at times montelukast 10 mg tablet 10 mg PO DAILY magnesium chloride [Mag 64] 64 mg tablet,delayed release (DR/EC) 64 mg PO DAILY Eliquis 5 mg tablet 5 mg PO BID Qty: 60 2RF Referrals / Follow Up: Socrates Spangler MD [Primary Care Provider] - Disposition Disposition (needs filled in before D/C Order can be placed): Hospice in Medical Facility
--- NOTE | 2024-11-10 14:52 | PCM.DC.SUM ---
Providers Date of Admission: 10/29/24 Primary Care Physician: Dr. Socrates Spangler MD Consultations 10/29/24 23:14 Consult: Naval Marine Engineer / Pulmonary Medicine Routine Consulting Provider: Intensivists/Pulmonary Med Reason for Consult: hypothermia, hypoglycemia, sinus mona, unclear etiology EMERGENT Consult: No MD Notified: Yes Date Notified: 10/29/24 Time Notified: 23:24 Method of Notification: Text 10/30/24 19:45 Consult: Onc/Wound/distillery manager Routine Comment: Reason for Consult:: edematous weeping legs/abdomen, pressure injuries b/l heels & cx. 11/02/24 08:06 Consult: Naval Marine Engineer / Pulmonary Medicine Routine Consulting Provider: Intensivists/Pulmonary Med Reason for Consult: resp. failure, AVAPs EMERGENT Consult: No MD Notified: Yes Date Notified: 11/02/24 Time Notified: 08:06 Method of Notification: Text 11/09/24 11:30 Consult: Hospice / Outpatient Palliative Care Routine Consulting Provider: [facility] Reason for Consult: CHF, respiratory failure, failure to thrive, EMERGENT Consult: Yes MD Notified: Yes Date Notified: 11/09/24 Time Notified: 11:30 Method of Notification: Text Reason For Visit: ALTERD MENTAL STATUS, HYPOTHERMIA, HYPOGLYCEMIA Diagnosis Discharge Diagnosis (1) Acute metabolic encephalopathy due to hypoglycemia: Status: Resolved Code(s): G93.41 - Metabolic encephalopathy; E16.2 - Hypoglycemia, unspecified Medications at Discharge Home Medications atorvastatin 20 mg tablet 20 mg PO QHS cholesterol 05/12/16 hydrocortisone 2.5 % topical cream 1 applicatio topical BID rash 05/12/16 metoprolol tartrate 50 mg tablet 25 mg PO BID blood pressure 05/12/16 nystatin 100,000 unit/gram topical powder (Nyamyc) 1 applic topical BID yeast 05/14/16 docusate sodium 100 mg capsule 100 mg PO DAILY stool softner 06/16/24 pantoprazole 40 mg tablet,delayed release 40 mg PO DAILY reflux 06/16/24 ergocalciferol (vitamin D2) 1,250 mcg (50,000 unit) capsule 1,250 mcg PO QWEEK vitamin 10/18/24 escitalopram oxalate 10 mg tablet 10 mg PO QHS mental health 10/18/24 glipizide 10 mg tablet 10 mg PO BID diabetes 10/18/24 hydroxyzine pamoate 25 mg capsule 25 mg PO DAILY PRN itching 10/18/24 levothyroxine 112 mcg tablet 112 mcg PO DAILY thyroid 10/18/24 loratadine 10 mg tablet (Allergy Relief (loratadine)) 10 mg PO DAILY allergies 10/18/24 magnesium chloride 64 mg (magnesium chloride) tablet,delayed release (Mag 64) 64 mg PO DAILY supplement 10/18/24 montelukast 10 mg tablet 10 mg PO DAILY allergies 10/18/24 nystatin 100,000 unit/gram topical cream 1 applic topical DAILY rash 10/18/24 potassium chloride 10 mEq tablet,extended release 10 meq PO DAILY supplement 10/18/24 apixaban 5 mg tablet (Eliquis) 5 mg PO BID #60 tabs 10/24/24 Hospital Course Operations None Procedures None Summary of Care Provided Minutes Spent on Discharge: 32 Hospital Course: Per HPI: TOD HUNT, is a 78-year-old female with a history of JAYA, GERD, hypothyroidism, diabetes, depression, A-fib chronically on Eliquis who presented [facility] ED 10/29/2024 with confusion, hypoglycemia, hypoxia. She was discharged 5 days ago and has possibly been having some confusion since that time. Reportedly hypoxic by EMS in the 80s and has started wearing oxygen since her discharge. When she was here recently she was admitted for UTI with debility and weakness but declined skilled care and had home health instead, she was discharged on the after being admitted for 5 days. In the ED heart rate 47, blood pressure 111/82, respiratory rate 24 and pulse ox 100% on 15 L nonrebreather, temp was found to be 93.2. CBC with normal white blood cell count, hemoglobin 11.6, CMP with a potassium of 5.7 but found to be hemolyzed, BUN of 29 and a creatinine 1.12, glucose 50, TSH 12, INR 4.1, blood gas with a pH 7.23, bicarb of 34, O2 sat 93 and a PCO2 of 80.8, proBNP 10,697 with a Pro-Juanjo of 0.06 and a lactic of less than 1. Chest x-ray with mild cardiomegaly and diffuse pulmonary vascular congestion and possible left retrocardiac opacity. Patient had no signs or symptoms of infection and UA did not seem overtly seem infected, given elevated BNP, x-ray findings and hypoxia there is suspicion for CHF and IV Lasix ordered. There is no indication for IV antibiotics. Due to her low glucose she was given D10 and patient placed on Emily hugger as it was unclear why she was hypothermic. Hospitalist contacted for admission. Patient evaluated bedside. Patient very confused, mostly is not answering questions appropriately, repeat ABG showed slight improvement in pH and PCO2 but now with hypoxia, patient placed on BiPAP and plan for ICU. No family available at bedside to provide additional history. Hospital Course: 1. Acute metabolic encephalopathy secondary to sepsis from pneumonia with acute hypoxic and hypercapnic respiratory failure/debility/JAYA/acute on chronic diastolic CHF?78-year-old female presented to the hospital with acute metabolic encephalopathy secondary to sepsis. She was initially in the ICU and completed all of her antibiotics and was able to come out of the ICU however she developed consistent and repeated episodes of respiratory failure. She was almost ready for discharge on Tuesday of this week and then over that 24-hour. She developed worsening shortness of breath and CHF. She was transitioned from 3 times daily Lasix dosing to a Lasix drip and maintained on BiPAP however she did not have any significant improvement. At this point palliative care was consulted and family ultimately elected to proceed with hospice care. The Lasix drip was discontinued and she was maintained on BiPAP. On 11/10/2024 the decision was made to discharge on hospice to [facility], hospice was in agreement. She can resume any and all medications that family and hospice request. 2. Essential hypertension, hyperlipidemia, paroxysmal A-fib, type 2 diabetes, super morbid obesity, hypothyroidism, GERD, acute blood loss anemia, candidiasis are all chronic medical conditions which complicated her care. Medical Records Data Homelessness:: Sheltered Weight / BMI Weight Weight: 418 lb 3.47 oz Body Mass Index (BMI) 74.0 ABG / Lab / Microbiology Data 11/09/24 05:26 11/09/24 05:26 Laboratory: Laboratory Results - last 24 hr 11/09/24 16:39: POC Glucose 177 H 11/09/24 23:15: POC Glucose 166 H 11/10/24 06:32: POC Glucose 191 H 11/10/24 11:15: POC Glucose 162 H Microbiology: Microbiology 11/06/24 09:50 Stool Stool Occult Blood (EDEN) - Final Occult Blood Positive 10/29/24 15:29 Blood Culture (Wb) - Left Hand Blood Culture - Final No growth in 5 days. 10/29/24 15:40 Blood Culture (Wb) - Right Wrist Blood Culture - Final No growth in 5 days. 11/01/24 15:00 Stool Clostridioides difficile (PCR) - Final 10/29/24 15:17 Urine, Catheterized Urine Culture - Final Culture exhibits no growth. 10/30/24 05:48 Urine Catheter - Catheter Legionella Antigen - Final 10/30/24 05:48 Urine Catheter - Catheter Streptococcus pneumoniae Antigen (M - Final 10/30/24 00:10 Mucosa - Nasopharyngeal Coronavirus COVID-19 PCR - Final 10/30/24 00:10 Mucosa - Nasopharyngeal Respiratory Panel (PCR) - Final 10/29/24 15:40 Mucosa - Nose SARS-CoV-2, Influenza & RSV (PCR) - Final D/C Instructions DC O2, CPAP, BIPAP Needs Home O2 Discharge instructions: No Meaningful Use Info Meaningful Use Meaningful Use Diagnoses (Choose all that apply): None applicable Discharge Plan Admission Admit Date/Time: 10/29/24 20:22 Attending Provider: Rj Leo Primary Care Provider: Socrates Spangler Consulting Providers: Savanna Suero; Mihai Baca; Steve Hernandez; Jeremiah Uribe; Guido Tompkins; Mert Vazquez; Holden Neal; Lucius Jaffe; Brigette Phillips; Abisai Jovel; Delmar Vasquez; Josr Abraham; Marilia Ghosh; Jez Fisher; Saima,Bianca; Monique,Shaggy; Marco,Shola; Maritza,Hardy; Andrea,Yamli; Sb Sung; Rj Ochoa; Luis Rene; Alexis Pena; Hernan Cerrato; Mert Santos; Mert Hutchins; Milagro Coffman; Teagan Wellington; Gissel Meza; Juliana Crowe GLASS CUTTING MACHINE FEEDER; Hanny Islas Discharge Orders/Prescriptions Prescriptions: No Action atorvastatin 20 MG tablet 20 mg PO QHS Patient Comments: cholesterol metoprolol tartrate 50 MG tablet 25 mg PO BID Patient Comments: blood pressure hydrocortisone 1 APPLIC cream 1 applicatio topical BID nystatin [Nyamyc] 1 APPLIC bottle 1 applic topical BID 0RF Patient Comments: uses at times docusate sodium 100 MG capsule 100 mg PO DAILY pantoprazole 40 mg tablet,delayed release (DR/EC) 40 mg PO DAILY glipizide 10 mg tablet 10 mg PO BID ergocalciferol (vitamin D2) 1,250 mcg (50,000 unit) capsule 1,250 mcg PO QWEEK hydroxyzine pamoate 25 mg capsule 25 mg PO DAILY PRN (Reason: itching) escitalopram oxalate 10 mg tablet 10 mg PO QHS Patient Comments: at 9PM loratadine [Allergy Relief (loratadine)] 10 mg tablet 10 mg PO DAILY levothyroxine 112 mcg tablet 112 mcg PO DAILY potassium chloride 10 mEq tablet extended release 10 meq PO DAILY nystatin 100,000 unit/gram cream 1 applic topical DAILY Patient Comments: uses at times montelukast 10 mg tablet 10 mg PO DAILY magnesium chloride [Mag 64] 64 mg tablet,delayed release (DR/EC) 64 mg PO DAILY Eliquis 5 mg tablet 5 mg PO BID Qty: 60 2RF Referrals / Follow Up: Socrates Spangler MD [Primary Care Provider] - Disposition Disposition (needs filled in before D/C Order can be placed): Hospice in Medical Facility Charges/Coding Visit Charges Inpatient E&M: 04084 Disch Hosp >30min
--- NOTE | 2024-11-10 16:12 | NURSING ---
[facility] all questions answered at this time
[2024-11-10] MEDS: 0.9 % NaCl (Sterile) Posiflush 10 mL IV (18:31)
--- NOTE | 2024-11-10 19:24 | PCM.HOSP.N ---
Hospitalist Note Prescription for Roxanol/morphine sublingual and Ativan/intensol oral liquid given as the patient is being discharged to inpatient hospice unit.
[2024-11-10] MEDS: morphine (oral solution) 10MG/0.5ML Syringe 2.5 MG SL (20:11)
--- NOTE | 2024-11-23 11:40 | CM.ED ---
Social work SW received call from Siddhartha with [employer] (ph: [phone]) regarding this patient. Siddhartha stated being concerned as to where this patient was as the fire department reported not having any further calls to the home. SARA reported that last documentation at [facility] was patient discharging to [facility] on 11/10/24. Siddhartha thanked SARA for this update. Ebony Knott, CONSULTING SENIOR PRACTICE DIRECTOR, SPA CONSULTANT
--- NOTE | 2024-11-23 11:43 | CASEMGMT ---
Social work SW received call from Siddhartha with [employer] (ph: [phone]) regarding this patient. Siddhartha stated being concerned as to where this patient was as the fire department reported not having any further calls to the home. SARA reported that last documentation at [facility] was patient discharging to [facility] on 11/10/24. Siddhartha thanked SARA for this update. Ebony Knott, WIRELESS TELEGRAPHER, CASEWORKER PROTECTIVE SERVICES
== END 2024-11-10 21:08 | disposition hospice, inpatient (51) | DRG 871 ==
LOC: ED 15:53 → ICU 18:48 → PCU 10-31 16:16 → ICU 11-01 17:46 → PCU 11-04 14:21
PROVIDERS: Family Medicine; Internal Medicine; Admitting Provider Internal Medicine; Emergency Provider Emergency Medicine; PCP Internal Medicine; Visit Provider Family Medicine
DX: A41.9 Sepsis, unspecified organism (principal); J96.22 Acute and chronic respiratory failure with hypercapnia; G92.8 Other toxic encephalopathy; I50.33 Acute on chronic diastolic (congestive) heart failure; G93.41 Metabolic encephalopathy; J15.9 Unspecified bacterial pneumonia; E87.21 Acute metabolic acidosis; E66.2 Morbid (severe) obesity with alveolar hypoventilation; D62 Acute posthemorrhagic anemia; I13.0 Hypertensive heart and chronic kidney disease with heart failure and stage 1 through stage 4 chronic kidney disease, or unspecified chronic kidney disease; Z68.45 Body mass index [BMI] 70 or greater, adult; N30.00 Acute cystitis without hematuria; Z59.00 Homelessness unspecified; R62.7 Adult failure to thrive; N18.30 Chronic kidney disease, stage 3 unspecified; E11.22 Type 2 diabetes mellitus with diabetic chronic kidney disease; E03.9 Hypothyroidism, unspecified; F32.A Depression, unspecified; I48.0 Paroxysmal atrial fibrillation; E66.01 Morbid (severe) obesity due to excess calories; E78.5 Hyperlipidemia, unspecified; E11.649 Type 2 diabetes mellitus with hypoglycemia without coma; E87.5 Hyperkalemia; K21.9 Gastro-esophageal reflux disease without esophagitis; E87.6 Hypokalemia; E11.620 Type 2 diabetes mellitus with diabetic dermatitis; E83.42 Hypomagnesemia; Z79.84 Long term (current) use of oral hypoglycemic drugs; Z83.3 Family history of diabetes mellitus; Z79.890 Hormone replacement therapy; R79.1 Abnormal coagulation profile; Z79.899 Other long term (current) drug therapy; Z79.01 Long term (current) use of anticoagulants; R41.0 Disorientation, unspecified; E66.813 Obesity, class 3; B37.2 Candidiasis of skin and nail; R53.81 Other malaise; Z51.5 Encounter for palliative care; Z66 Do not resuscitate
CPT/HCPCS: 36415; 36556; 36600; 71045; 80048; 80053; 80076; 81001; 82274; 82533; 82803; 82962; 83540; 83550; 83605; 83735; 83880; 84100; 84132; 84145; 84439; 84443; 84481; 85014; 85018; 85025; 85610; 85730; 86850; 86900; 86901; 87040; 87086; 87449; 87493; 87631; 87633; 87635; 93005; 94002; 94003; 94762; 97162; 97165; 97803; 99252; 99285; P9016; A4216; C1751; G0463; J1938; J2405